=== PATIENT | female | born 1985 | race African-American/Black ===

== ENCOUNTER 2020-08-18 13:34 | Emergency (ER) | payer MEDICAID, SELFPAY ==
[2020-08-18 13:37] VITALS: BP 143/106; PULSE 80; RESP 16; TEMP 36.7; O2SAT 98; BMI 32.8
[2020-08-18] MEDS: Ketorolac 30 MG/ML Syringe IM (14:06)
--- NOTE | 2020-08-18 14:20 | RAD_ITS ---
STUDY: X-RAY - LUMBAR SPINE REASON FOR EXAM: Female, 35 years old. Blunt injury TECHNIQUE: 3 view(s) of the lumbar spine were obtained. COMPARISON: None FINDINGS: Normal lumbar lordosis. Mild levoscoliosis of the lumbar spine. There is a normal alignment of the vertebrae. Normal vertebral bodies and endplates. Normal disc space heights. The soft tissue structures are unremarkable. RAD/Lumbar Spine 2 or 3 Views IMPRESSION: Normal x-ray examination of the lumbar spine. Electronically Signed: Maverick Giles MD at 14:38 EDT , Service support ,
--- NOTE | 2020-08-18 15:17 | ED.VIS.BACK ---
History of Present Illness Chief Complaint: Back Narrative: Patient presenting secondary to a back injury. Patient reports that she was helping assemble a trampoline, and she was hit in the back by a metal post yesterday. She has lower back pain. There is some radiation down the left leg to around the level of the thigh. No numbness or weakness bowel or bladder incontinence or fevers. Patient took some ibuprofen yesterday felt somewhat better, but was continuing to have pain today so she presented to the emergency department. Patient is not anticoagulated. Pain is moderate worse with palpation and movement. Review of systems otherwise negative. Past Medical History - Allergies and Home Meds Allergies/Adverse Reactions: Allergies amoxicillin Allergy (Verified 08/18/20 13:37) Rash tramadol Allergy (Verified 08/18/20 13:37) Rash Primary Care Physician: Riya Norman [NON-STAFF] - Prior records reviewed: Yes Past Medical History: None Smoking Status: Current every day smoker Alcohol: None Drugs: None Review of Systems All systems negative except as indicated General: Denies: Chills, Fever, Sweats Eyes: Denies: Visual changes - bilaterally, Diplopia ENT: Denies: Rhinorrhea, Sore throat Cardiovascular: Denies: Chest pain, Palpitations Respiratory: Denies: Dyspnea, Cough, Dyspnea on exertion Gastrointestinal: Denies: Abdominal pain, Nausea, Vomiting, Diarrhea, Melena, Hematochezia Genitourinary: Denies: Dysuria, Hematuria, Frequency Musculoskeletal: Reports: Back pain Skin: Denies: Rash, Wounds Neurological: Denies: Headache, Weakness, Numbness Physical Exam Vital Signs/Narrative: Vital Signs Temp Pulse Resp BP Pulse Ox 08/18/20 13:37 98.1 F 80 16 143/106 H 98 Inital Vital Signs reviewed: Yes General: Well nourished, Well developed Head: Normocephalic, Atraumatic Eyes: Perrl, EOMI ENT: Moist mucous membranes, No rhinorrhea Neck: Supple, Nontender Cardiovascular: Regular rate, Regular rhythm, No murmurs Respiratory: No distress, CTA bilaterally, Chest nontender Abdomen: Soft, Nontender, Nondistended, Normal bowel sounds Back: Normal Inspection, Spinal tenderness, Paraspinal Tenderness Extremeties: Nontender, No edema Skin: Normal color, No rash Neuro: Alert, Oriented, Normal Strength, Normal Sensation, Normal DTR, Normal Gait, - - 5 out of 5 strength of the hip knee ankle and foot with normal sensation over all dermatomes normal deep tendon reflexes normal gait. Psychological: Normal affect Diagnostic/Tx/Re-eval X-Ray: LS SPine, Read by ED Physician, Normal - Medical Decision Making Patient presented with a back injury. Radiographs by my personal review as well as radiology found to be negative. Patient's pain was treated in the emergency department with NSAIDs, and a single dose of [place]. She was sent home with a course of Naprosyn. ED Disposition - Plan for ED Patient: Disposition: Home or Assisted Living Diagnosis: Lumbar contusion Instructions: ED Back Contusion Prescriptions: Naproxen [Naprosyn] 500 mg PO BID PRN #20 tablet Prescription Printed Referrals: Riya Norman [NON-STAFF] -
[2020-08-18] MEDS: HYDROcodone Bitartrate/Apap 5/325 Tablet PO (15:21)
== END 2020-08-18 15:26 | disposition home or self-care (01) ==
PROVIDERS: Emergency Provider Emergency Medicine
DX: S30.0XXA Contusion of lower back and pelvis, initial encounter (principal); W22.8XXA Striking against or struck by other objects, initial encounter; Y93.9 Activity, unspecified; Y92.9 Unspecified place or not applicable; Y99.9 Unspecified external cause status; F17.200 Nicotine dependence, unspecified, uncomplicated
CPT/HCPCS: 72100; 96372; 99283

== ENCOUNTER 2020-08-21 17:14 | Emergency (ER) | payer MEDICAID, SELFPAY ==
[2020-08-21 17:16] VITALS: BP 139/98; PULSE 76; RESP 17; TEMP 36.5; O2SAT 93; BMI 32.3
[2020-08-21 17:52] LABS: Red Blood Cells-Urine 0 SEEN /hpf (0-5); White Blood Cells 0 SEEN /hpf (0-5)
[2020-08-21 17:58] LABS: Color, Urine Yellow (Yellow); Glucose, Dipstick Normal (Normal); Ketone-Dipstick 5 mg/dl (Negative); Leukocyte Esterase-Dipstick 25 /ul (Negative); Nitrite-Dipstick Negative (Negative); Occult Blood-Urine Negative /ul (Negative); Protein-Dipstick Negative (Negative); Urine Bilirubin Dipstick Negative (Negative); Urine Clarity Clear (Clear); Urine Urobilinogen Normal (Normal)
[2020-08-21 18:02] LABS: Absolute Lymphocyte Count 2.43 X10^3/uL (0.83-4.51); Absolute Neutrophil Count 2.3 X10^3/uL (2.0-7.7); Basophil# 0.04 X10^3/uL; Basophil% 0.8 % (0-1); Eosinophils% 1.9 % (0-5); Hematocrit 38.7 % (37-47); Hemoglobin 12.6 g/dL (12.0-15.0); Lymphocyte # 2.43 X10^3/ul (4.0); Lymphocyte % 45.7 % (19-41); Mean Corp Hgb Conc 32.6 g/dL (32-36); Mean Corpuscular Hgb 28.8 pg (27.0-32.0); Mean Corpuscular Volume 88.4 fL (81-99); Mean Platelet Vol. 9.2 fl (6.2-12.0); Monocyte# 0.49 X10^3/uL; Monocyte% 9.2 % (0-10); NRBC Flagged by Analyzer 0 % (0-5); Neutrophil # 2.25 X10^3/uL (2.7-7.7); Neutrophil % 42.2 % (47-70); Platelet Count 379 K/mm3 (150-450); RBC Distribution Width CV 13.8 % (11.6-14.6); RBC Distribution Width SD 44.9 fl (35.1-43.9); Red Blood Count 4.38 M/mm3 (4.2-5.4); White Blood Count 5.3 K/mm3 (4.4-11.0)
[2020-08-21 18:15] LABS: Anion Gap 5 (5-15); BUN 10 mg/dL (7-18); BUN/Creat Ratio 10.9 RATIO (10-20); Calcium,Total 9.1 mg/dL (8.5-10.1); Chloride 107 mmol/L (98-107); Creatinine, Serum 0.91 mg/dL (0.55-1.02); EST Glomerular Filtration Rate 74 mL/min (>60); Est Glom Filt Rate - Afr Amer 89 mL/min (>60); Glucose 83 mg/dL (74-106); Potassium 3.7 mmol/L (3.5-5.1); Sodium Level 139 mmol/L (136-145)
[2020-08-21 18:21] LABS: Internal QC Validated? YES +Cl - CLEAR BKGD; Pregnancy, Serum, hCG Quali. NEGATIVE Negative
[2020-08-21 18:29] LABS: Bacteria 1+ /hpf (None Seen); Mucous, Urine 1+ /hpf (<or=2+); Squamous Epithelial Cells - UA 0-5 SEEN /hpf (5-10)
--- NOTE | 2020-08-21 18:30 | CT_ITS ---
STUDY: CT ABDOMEN AND PELVIS WITH CONTRAST REASON FOR EXAM: Female, 35 years old. Abdominal pain RADIATION DOSAGE (If Supplied By Facility): CTDIvol = ( 10.64 ) mGy, DLP = ( 766.64 ) mGycm TECHNIQUE: Transaxial images were obtained from the dome of the diaphragm to the symphysis pubis without oral contrast. IV 100mL Isovue-300 was administered. Sagittal and coronal images were reconstructed. Individualized dose optimization techniques were used for this CT. COMPARISON: None. FINDINGS: The visualized lung bases are unremarkable. The visualized portions of the heart are within normal limits. Normal liver. Normal gallbladder and extrahepatic biliary system. Normal spleen. Normal pancreas. Normal bilateral adrenal glands. Normal right kidney. Normal left kidney. Normal visualized stomach. Normal small intestine. Normal colon. The appendix is visualized and appears normal. Appendix best seen on coronal recon images 49 through 52 Normal abdominal aorta. Normal inferior vena cava. Normal retroperitoneum. Normal urinary bladder. Normal-appearing uterus and physiologic ovarian cysts, there is evidence of previous tubal ligation Normal abdominal wall. Normal osseous structures. CT/Abdomen/Pelvis W IV Cont ONLY IMPRESSION: No suspicious solid organ abnormality No free intraperitoneal fluid, air, or suspicious adenopathy Normal appendix visualized Physiologic ovarian cysts, no demonstrated free fluid Electronically Signed: Alberto Thompson MD at 19:27 EDT , Service support ,
[2020-08-21] MEDS: MethylPREDNISolone 125 MG/2 ML Vial IV (18:45)
[2020-08-21] MEDS: Ondansetron 4 MG/2 ML Vial IV (18:45)
[2020-08-21] MEDS: Morphine 4 MG/ML Syringe IV (18:45)
--- NOTE | 2020-08-21 19:03 | ED.VIS.GEN ---
History of Present Illness Chief Complaint: Abd Pain Informant: Patient Narrative: 35-year-old female with history of Crohn's disease presenting with lower abdominal pain bilaterally. She states that she has nausea and vomiting as well. She is not had a fever. She complains of chronic congestion and a mild cough which is also chronic. She has no new symptoms suggesting viral illness. Patient states he is not on any daily medications for Crohn's disease. Past Medical History - Allergies and Home Meds Allergies/Adverse Reactions: Allergies amoxicillin Allergy (Verified 08/21/20 17:16) Rash tramadol Allergy (Verified 08/21/20 17:16) Rash Primary Care Physician: Jeffy Rivera MD [Primary Care Provider] - Prior records reviewed: Yes Past Medical History: - - Crohn's disease Lives: With Family Smoking Status: Current every day smoker Alcohol: None Drugs: None Review of Systems General: Denies: Chills, Fever, Sweats Eyes: Denies: Visual changes - bilaterally, Diplopia ENT: Denies: Rhinorrhea, Sore throat Cardiovascular: Denies: Chest pain, Palpitations Respiratory: Denies: Dyspnea, Cough, Dyspnea on exertion Gastrointestinal: Reports: Abdominal pain, Nausea, Vomiting, Diarrhea. Denies: Constipation, Melena Genitourinary: Denies: Dysuria, Hematuria Musculoskeletal: Denies: Myalgias, Arthralgias Skin: Denies: Rash, Abscess Neurological: Denies: Headache, Weakness, Parasthesia Psych: Denies: Depression, Anxiety Physical Exam Vital Signs/Narrative: Vital Signs Temp Pulse Resp BP Pulse Ox 08/21/20 17:16 97.7 F L 76 17 139/98 H 93 General: Well nourished, No Acute Distress Head: Normocephalic, Atraumatic Eyes: Perrl, EOMI ENT: Moist mucous membranes, No rhinorrhea Cardiovascular: Regular rate, Regular rhythm Respiratory: No distress, CTA bilaterally Abdomen: Soft, Nondistended, Tender - Is palpation bilateral lower quadrants. Abdomen is nonperitoneal. Rectal: Deferred Extremities: Nontender, No edema Skin: Normal color, No rash. Negative for: Cyanosis, Diaphoresis Neurological: Alert, Oriented x3, Cranial nerves II-XII grossly intact Psychological: Normal affect, Normal Mood Diagnostic/Tx/Re-eval Clinical Impression(s) from Imaging Studies Abdomen/Pelvis CT 08/21/20 18:30 IMPRESSION: No suspicious solid organ abnormality No free intraperitoneal fluid, air, or suspicious adenopathy Normal appendix visualized Physiologic ovarian cysts, no demonstrated free fluid Electronically Signed: Alberto Thompson MD at 19:27 EDT , Service support , Laboratory Data 08/21/20 08/21/20 08/21/20 17:17 17:48 17:48 WBC 5.3 RBC 4.38 Hgb 12.6 Hct 38.7 MCV 88.4 MCH 28.8 MCHC 32.6 RDW Std Deviation 44.9 H RDW Coeff of Kim 13.8 Plt Count 379 MPV 9.2 Immature Gran % (Auto) 0.200 Neut % (Auto) 42.2 L Lymph % (Auto) 45.7 H Sum[place] % (Auto) 9.2 Eos % (Auto) 1.9 Baso % (Auto) 0.8 Absolute Neuts (auto) 2.3 Absolute Lymphs (auto) 2.43 Nucleated RBC % 0 Sodium 139 Potassium 3.7 Chloride 107 Carbon Dioxide 27.0 Anion Gap 5 BUN 10 Creatinine 0.91 Estim Creat Clear Calc 70.70 Est GFR (MDRD) Af Amer 89 Est GFR (MDRD) Non-Af 74 BUN/Creatinine Ratio 10.9 Glucose 83 Calcium 9.1 Serum , Qual Urine Color Yellow Urine Clarity Clear Urine pH 6.0 Ur Specific [place] 1.020 Urine Protein Negative Urine Glucose (UA) Normal Urine Ketones 5 H Urine Occult Blood Negative Urine Nitrite Negative Urine Bilirubin Negative Urine Urobilinogen Normal Ur Leukocyte Esterase 25 H Urine RBC 0 SEEN Urine WBC 0 SEEN Ur Squamous Epith Cells 0-5 SEEN Urine Bacteria 1+ Urine Mucus 1+ 08/21/20 17:48 WBC RBC Hgb Hct MCV MCH MCHC RDW Std Deviation RDW Coeff of Kim Plt Count MPV Immature Gran % (Auto) Neut % (Auto) Lymph % (Auto) Summers % (Auto) Eos % (Auto) Baso % (Auto) Absolute Neuts (auto) Absolute Lymphs (auto) Nucleated RBC % Sodium Potassium Chloride Carbon Dioxide Anion Gap BUN Creatinine Estim Creat Clear Calc Est GFR (MDRD) Af Amer Est GFR (MDRD) Non-Af BUN/Creatinine Ratio Glucose Calcium Serum , Qual NEGATIVE Urine Color Urine Clarity Urine pH Ur Specific [place] Urine Protein Urine Glucose (UA) Urine Ketones Urine Occult Blood Urine Nitrite Urine Bilirubin Urine Urobilinogen Ur Leukocyte Esterase Urine RBC Urine WBC Ur Squamous Epith Cells Urine Bacteria Urine Mucus - Medical Decision Making 35-year-old female presenting with lower abdominal pain bilaterally. Patient states he has a history of Crohn's and is a concern for Crohn's flare. Patient states that she does not have a GI doctor in [place] and just recently moved out here. She does have a physician at the [facility] but does her primary care. Patient is not on any long-term medications for Crohn's disease. Patient was given morphine and Zofran for pain and nausea. Obtained lab work which is unremarkable. CT is negative. CT of the abdomen pelvis shows ovarian cyst but no other acute pathology. Patient offered transvaginal ultrasound but declines. Patient is counseled to use Tylenol and ibuprofen alternating doses at home. She is given return precautions. She states she will follow up with her PCP to get a referral for GI. Impression: 1. Abdominal pain 2. Ovarian cysts ED Disposition - Plan for ED Patient: Disposition: Home or Assisted Living Instructions: ED Ovarian Cyst Prescriptions: Ondansetron [Zofran Odt] 4 mg PO Q8H PRN PRN 14 Days #10 tablet PRN Reason: Nausea Prescription Printed Referrals: Jeffy Rivera MD [Primary Care Provider] -
[2020-08-21 20:10] VITALS: RESP 14
== END 2020-08-21 20:11 | disposition home or self-care (01) ==
PROVIDERS: Emergency Provider Student in an Organized Health Care Education/Training Program; PCP Internal Medicine
DX: R10.9 Unspecified abdominal pain (principal); N83.209 Unspecified ovarian cyst, unspecified side; K50.90 Crohn's disease, unspecified, without complications; R11.0 Nausea; R05 Cough; F17.200 Nicotine dependence, unspecified, uncomplicated
CPT/HCPCS: 74177; 80048; 81001; 84703; 85025; 96374; 96375; 99282; Q9967; A4216; J2405

== ENCOUNTER 2020-10-30 15:33 | Emergency (ER) | payer MEDICAID, SELFPAY ==
[2020-10-30 15:34] VITALS: BP 129/80; PULSE 91; RESP 18; TEMP 36.5; O2SAT 99; BMI 31.3
--- NOTE | 2020-10-30 16:51 | EX.ED.DYSGE1 ---
HPI History of Present Illness Chief Complaint: Nausea/Vomiting Informant: patient Narrative Narrative: Nausea vomiting for the past 2 days too many to count. Generalized abdominal pain. No hematemesis. No diarrhea. No urinary symptoms. Finished her menstrual period today. Occasional alcohol. Denies any recreational drug use including THC. She states diagnosed with Crohn's back in 2007 and followed GI in [place]. Has had endoscopies per patient. She states she moved to the area and is trying to get established with a GI doctor. She states she has been here to the ED for work-ups told she may have ruptured ovarian cyst. She has prescription for Zofran and Bentyl for which she took at 11 PM reporting no relief. History of anxiety depression and bipolar. History of tubal ligation and D&C. Prior similar symptoms: Yes PFSH PFS Medical History (Updated 10/30/20 @ 19:[address] Jared Reynolds DO) Acute Crohn's disease Anxiety Bipolar 1 disorder Depression Home Medications naproxen 500 mg PO BID PRN #20 tablet 08/18/20 [Rx Last Taken Unknown] Allergy/AdvReac Type Severity Reaction Status Date / Time amoxicillin Allergy Rash Verified 10/30/20 15:37 tramadol Allergy Rash Verified 10/30/20 15:37 Surgical History (Updated 10/30/20 @ 17:45 by Concha Saleem) Tubal ligation status Social History Smoking Status: Current every day smoker tobacco type: cigarettes ROS ROS ED Constitutional Constitutional ED: Denies chills, fever(s) or sweats Eyes Eyes: Denies change in vision ENT ENT ED: Denies dysphagia or sore throat Cardiovascular Cardiovascular: Denies chest pain, leg edema, palpitations or racing heartbeat Respiratory/Chest Respiratory/Chest: Denies cough, dyspnea or dyspnea on exertion Gastrointestinal Gastrointestinal: Reports abdominal pain, nausea and vomiting; Denies diarrhea Genitourinary Genitourinary ED: Denies dysuria, hematuria or urinary frequency Musculoskeletal Musculoskeletal: Denies back pain, extremity pain or neck pain Integumentary Denies rash or wounds Neurologic Neurologic: Denies headache(s), paresthesias or weakness EXAM Physical Exam Const Vital Signs: 10/30/20 15:34 10/30/20 17:53 Temperature 97.7 F L Temperature Source Oral Pulse Rate 91 89 Respiratory Rate 18 16 Blood Pressure 129/80 H 130/78 H Blood Pressure Mean 96 95 Pulse Ox 99 99 Oxygen Delivery Method Room Air Room Air Positive well nourished and well developed General Appearance ED: well developed and NAD HEENT Reports other HEENT Narrative: Mild dry mucosal membranes. normocephalic, atraumatic and other Eyes PERRL, EOMs intact bilaterally and conjunctivae normal General Eye ED: Yes normal appearance of both eyes Neck no lymphadenopathy and supple General: Negative for tenderness Chest Wall Chest: Negative for tenderness Resp normal respiratory effort and normal air movement Effort and Inspection: symmetric chest movement; Negative for respiratory distress Cardio regular rate, regular rhythm and no murmurs Peripheral Pulses: pulses 2+ throughout GI normal to inspection, nondistended, normoactive bowel sounds and non-tender GI Narrative: Negative Smalls's or McBurney's tenderness. Palpation: Negative for guarding or rebound tenderness present Back/Spine no CVA tenderness and no thoracic nor lumbar tenderness Extremity normal to inspection General Extremety ED: Negative for edema or tenderness General Extremity: Negative for edema Neuro oriented x3 and no sensory deficits noted Sensorium / Orientation: awake and alert Skin no rashes or lesions noted and no wounds MDM MDM MDM Narrative Medical decision making narrative: Patient with nonsurgical abdomen. Mild dry mucosal membranes. There is no active vomiting in the ED. Reglan Benadryl was given along with IV fluids. Abdominal labs were normal. Tox screen did note cannabis and cocaine. She has no chest pains. She admits to using marijuana occasionally. She is never been told she had cannabis hyperemesis syndrome in the past. I discussed concerns with the patient and cessation of THC. She has Zofran at home. There is been no emesis in the ED. She will follow-up as an outpatient. All questions were answered. Lab Data Attestation: I reviewed the patient's lab results. Labs: Laboratory Results - last 24 hr 10/30/20 10/30/20 10/30/20 17:38 17:38 18:08 WBC 4.4 RBC 4.23 Hgb 12.8 Hct 38.4 MCV 90.8 MCH 30.3 MCHC 33.3 RDW Std Deviation 42.2 RDW Coeff of Kim 12.7 Plt Count 408 MPV 9.2 Immature Gran % (Auto) 0.200 Neut % (Auto) 44.0 L Lymph % (Auto) 44.6 H [place] % (Auto) 9.3 Eos % (Auto) 1.4 Baso % (Auto) 0.5 Absolute Neuts (auto) 2.0 Absolute Lymphs (auto) 1.97 Nucleated RBC % 0 Sodium 139 Potassium 3.7 Chloride 106 Carbon Dioxide 27.0 Anion Gap 6 BUN 11 Creatinine 0.90 Estim Creat Clear Calc 71.48 Est GFR (MDRD) Af Amer 91 Est GFR (MDRD) Non-Af 75 BUN/Creatinine Ratio 12.2 Glucose 88 Calcium 8.8 Total Bilirubin 0.20 AST 11 L ALT 22 Alkaline Phosphatase 76 Total Protein 7.3 Albumin 3.7 Globulin 3.6 Albumin/Globulin Ratio 1.0 Lipase 43 L Urine Color Yellow Urine Clarity Sl Cldy Urine pH 7.0 Ur Specific [place] 1.015 Urine Protein 15 H Urine Glucose (UA) Normal Urine Ketones 5 H Urine Occult Blood 25 H Urine Nitrite Negative Urine Bilirubin Negative Urine Urobilinogen 1 H Ur Leukocyte Esterase 25 H Urine RBC 0-5 SEEN Urine WBC 0-5 SEEN Ur Squamous Epith Cells 0-5 SEEN Urine Bacteria 0 SEEN Urine Mucus 0 SEEN Urine Test Negative Urine Opiates Screen Urine Methadone Screen Ur Barbiturates Screen Ur Phencyclidine Scrn Ur Amphetamines Screen U Methamphetamin-MDMA U Benzodiazepines Scrn Urine Cocaine Screen U Cannabinoids Screen Ur Drug Screen Comment 10/30/20 18:08 WBC RBC Hgb Hct MCV MCH MCHC RDW Std Deviation RDW Coeff of Kim Plt Count MPV Immature Gran % (Auto) Neut % (Auto) Lymph % (Auto) [place] % (Auto) Eos % (Auto) Baso % (Auto) Absolute Neuts (auto) Absolute Lymphs (auto) Nucleated RBC % Sodium Potassium Chloride Carbon Dioxide Anion Gap BUN Creatinine Estim Creat Clear Calc Est GFR (MDRD) Af Amer Est GFR (MDRD) Non-Af BUN/Creatinine Ratio Glucose Calcium Total Bilirubin AST ALT Alkaline Phosphatase Total Protein Albumin Globulin Albumin/Globulin Ratio Lipase Urine Color Urine Clarity Urine pH Ur Specific [place] Urine Protein Urine Glucose (UA) Urine Ketones Urine Occult Blood Urine Nitrite Urine Bilirubin Urine Urobilinogen Ur Leukocyte Esterase Urine RBC Urine WBC Ur Squamous Epith Cells Urine Bacteria Urine Mucus Urine Test Urine Opiates Screen NEGATIVE Urine Methadone Screen NEGATIVE Ur Barbiturates Screen NEGATIVE Ur Phencyclidine Scrn NEGATIVE Ur Amphetamines Screen NEGATIVE U Methamphetamin-MDMA NEGATIVE U Benzodiazepines Scrn NEGATIVE Urine Cocaine Screen POSITIVE H U Cannabinoids Screen POSITIVE H Ur Drug Screen Comment Discharge Plan Triage Chief Complaint: Nausea/Vomiting ED Provider: Jared Reynolds Dx/Rx/DC Orders Clinical Impression: Cannabis hyperemesis syndrome concurrent with and due to cannabis abuse Instructions: Understanding Marijuana Abuse, ED Marijuana Abuse Prescriptions: No Action naproxen 500 MG tablet 500 mg PO BID PRN Qty: 20 RF: 0 Primary Care Provider: Michelle Grimm NP Referrals: Michelle Grimm NP, CUSTOMER SERVICE REPRESENTATIVE TEACHER-C [Primary Care Provider] - 3-5 Days Disposition Disposition: Home, self care
[2020-10-30] MEDS: 0.9% Normal Saline 1,000 ML 1000 ML IV (17:42)
[2020-10-30] MEDS: Metoclopramide 10 MG/2 ML Vial IV (17:42)
[2020-10-30] MEDS: DiphenhydrAMINE 50 MG/ML Syringe 25 MG IV (17:42)
[2020-10-30 17:53] VITALS: BP 130/78; PULSE 89; RESP 16; O2SAT 99
[2020-10-30 18:01] LABS: Absolute Lymphocyte Count 1.97 X10^3/uL (0.83-4.51); Basophil# 0.02 X10^3/uL; Basophil% 0.5 % (0-1); Eosinophil# 0.06 X10^3/uL; Eosinophils% 1.4 % (0-5); Hematocrit 38.4 % (37-47); Hemoglobin 12.8 g/dL (12.0-15.0); Lymphocyte # 1.97 X10^3/ul (0.83-4.51); Lymphocyte % 44.6 % (19-41); Mean Corp Hgb Conc 33.3 g/dL (32-36); Mean Corpuscular Hgb 30.3 pg (27.0-32.0); Mean Corpuscular Volume 90.8 fL (81-99); Mean Platelet Vol. 9.2 fl (6.2-12.0); Monocyte# 0.41 X10^3/uL; Monocyte% 9.3 % (0-10); NRBC Flagged by Analyzer 0 % (0-5); Neutrophil # 1.95 X10^3/uL (2.7-7.7); Platelet Count 408 K/mm3 (150-450); RBC Distribution Width CV 12.7 % (11.6-14.6); RBC Distribution Width SD 42.2 fl (35.1-43.9); Red Blood Count 4.23 M/mm3 (4.2-5.4); White Blood Count 4.4 K/mm3 (4.4-11.0)
[2020-10-30 18:16] LABS: Bacteria 0 SEEN /hpf (None Seen); Mucous, Urine 0 SEEN /hpf (<or=2+)
[2020-10-30 18:20] LABS: AST(SGOT) 11 U/L (15-37); Alanine Aminotransfer ALT/SGPT 22 U/L (13-56); Albumin, Serum 3.7 g/dL (3.2-5.0); Alkaline Phosphatase 76 U/L (45-117); Anion Gap 6 (5-15); BUN 11 mg/dL (7-18); BUN/Creat Ratio 12.2 RATIO (10-20); Calcium,Total 8.8 mg/dL (8.5-10.1); Chloride 106 mmol/L (98-107); EST Glomerular Filtration Rate 75 mL/min (>60); Est Glom Filt Rate - Afr Amer 91 mL/min (>60); Estimated Creatinine Clearance 71.48 ml/min; Globulin 3.6 g/dL (2.2-4.2); Glucose 88 mg/dL (74-106); Lipase 43 U/L (73-393); Potassium 3.7 mmol/L (3.5-5.1); Protein, Total 7.3 g/dL (6.4-8.2); Sodium Level 139 mmol/L (136-145)
[2020-10-30 18:23] LABS: Glucose, Dipstick Normal (Normal); Ketone-Dipstick 5 mg/dl (Negative); Leukocyte Esterase-Dipstick 25 /ul (Negative); Nitrite-Dipstick Negative (Negative); Occult Blood-Urine 25 /ul (Negative); Protein-Dipstick 15 mg/dl (Negative); Specific Gravity, Urine 1.015 (1.002-1.030); Urine Bilirubin Dipstick Negative (Negative); Urine Urobilinogen 1 mg/dl (Normal)
[2020-10-30 18:34] LABS: Amphetamine Urine VISTA NEGATIVE (<1000 ng/mL); Barbiturate Urine VISTA NEGATIVE (< 200 ng/mL); Benzodiazepine Urine VISTA NEGATIVE (< 200 ng/mL); Cocaine Urine VISTA POSITIVE (< 300 ng/mL); Color, Urine Yellow (Yellow); Ecstacy Urine VISTA NEGATIVE (< 500 ng/mL); Methadone Urine VISTA NEGATIVE (< 300 ng/mL); PCP Urine VISTA NEGATIVE (< 25 ng/mL); THC Urine VISTA POSITIVE (< 50 ng/mL); Urine Clarity Sl Cldy (Clear); Vista UDS pH Range 6
[2020-10-30 18:35] LABS: Internal QC Validated? YES +Cl - CLEAR BKGD; Pregnancy, Urine Negative Negative; Red Blood Cells-Urine 0-5 SEEN /hpf (0-5); Squamous Epithelial Cells - UA 0-5 SEEN /hpf (5-10); White Blood Cells 0-5 SEEN /hpf (0-5)
[2020-10-30 19:14] VITALS: BP 110/67; PULSE 71; RESP 16; O2SAT 100
== END 2020-10-30 19:17 | disposition home or self-care (01) ==
PROVIDERS: Emergency Provider Emergency Medicine; PCP Nurse Practitioner Primary Care
DX: R11.2 Nausea with vomiting, unspecified (principal); F12.10 Cannabis abuse, uncomplicated; R10.84 Generalized abdominal pain; K50.90 Crohn's disease, unspecified, without complications; F17.210 Nicotine dependence, cigarettes, uncomplicated; Z98.51 Tubal ligation status
CPT/HCPCS: 80053; 80307; 81001; 81025; 83690; 85025; 96361; 96374; 96375; 99283; A4216

== ENCOUNTER 2021-02-24 19:26 | Emergency (ER) | payer MEDICAID, SELFPAY ==
[2021-02-24 19:26] VITALS: BP 133/101; PULSE 88; RESP 18; TEMP 36.4; O2SAT 100; BMI 31.8
[2021-02-24] MEDS: HYDROcodone Bitartrate/Apap 5/325 Tablet PO (21:07)
[2021-02-24 21:47] VITALS: RESP 16
[2021-02-24] MEDS: Tetracaine 0.5% Ophthalmic Bottle 1 DRP RIGHT EYE (22:07)
--- NOTE | 2021-02-24 22:25 | EDS_ITS ---
HPI History of Present Illness Chief Complaint: Headache Informant: patient Narrative Narrative: 36-year-old female presenting with right eye pain and blurry vision. Patient states this started on Friday. She was seen at urgent care. States it all started when she got a hair in her eye and was rubbing her eye. she states she was told at urgent care that she had a retinal detachment and she should follow-up with ophthalmology on Friday. She was given erythromycin ointment. She presents today due to persistent pain. Denies trauma. Denies visual field cut. Denies double vision. Prior similar symptoms: No Recent Illness/Hospitalization: No [facility] Medical History (Updated 02/24/21 @ 22:[address] Kami Peck MD) Acute Crohn's disease Anxiety Bipolar 1 disorder Depression Home Medications escitalopram oxalate [Lexapro] 40 mg PO DAILY 02/24/21 [History Last Taken Unknown] hydroxyzine pamoate [Vistaril] 50 mg PO 4X/DAY PRN PRN 02/24/21 [History Last Taken Unknown] lamotrigine [Lamictal] 100 mg PO DAILY 02/24/21 [History Last Taken Unknown] Allergy/AdvReac Type Severity Reaction Status Date / Time amoxicillin Allergy Rash Verified 02/24/21 19:36 tramadol Allergy Rash Verified 02/24/21 19:36 Surgical History Tubal ligation status Social History Smoking Status: Current every day smoker tobacco type: cigarettes ROS ROS ED Constitutional Constitutional ED: Denies fever(s) Eyes Eyes: Reports blurry vision; Denies diplopia ENT ENT ED: Denies rhinorrhea or sore throat Cardiovascular Cardiovascular: Denies chest pain Respiratory/Chest Respiratory/Chest: Denies dyspnea Neurologic Neurologic: Reports headache(s) EXAM Physical Exam Const Vital Signs: 02/24/21 19:26 02/24/21 21:47 Temperature 97.6 F L Temperature Source Temporal Pulse Rate 88 Respiratory Rate 18 16 Blood Pressure 133/101 H Blood Pressure Mean 111 Pulse Ox 100 Oxygen Delivery Method Room Air Positive well nourished and well developed General Appearance ED: well developed HEENT Reports normocephalic and head/scalp atraumatic Eyes PERRL and EOMs intact bilaterally Neck supple General: Negative for tenderness Chest Wall inspection of chest normal Resp normal respiratory effort and clear to auscultation bilaterally Cardio regular rate and regular rhythm no CVA tenderness Extremity normal to inspection Neuro oriented x3 Sensorium / Orientation: alert Psych mental status grossly normal Skin no rashes or lesions noted MDM MDM MDM Narrative Medical decision making narrative: Visual acuity 20/50 OS, 20/25 OD. Bedside ultrasound was performed and patient has no evidence of retinal detachment. Tetracaine was instilled into the right eye with resolution of her pain. She has fluorescein dye uptake at 6:00. No sign of corneal ulceration. She does not wear contacts. She is given erythromycin ointment. Discussed with Dr. Young and patient will be seen for close outpatient follow-up. Outside facility records were reviewed and she was diagnosed with corneal abrasion, not retinal detachment. Discharge Plan Triage Chief Complaint: Headache ED Provider: Kami Peck Dx/Rx/DC Orders Clinical Impression: Corneal abrasion Instructions: ED Corneal Abrasion Prescriptions: No Action hydroxyzine pamoate [Vistaril] 50 mg Capsule 50 mg PO 4X/DAY PRN PRN (Reason: Anxiety) RF: 0 lamotrigine [Lamictal] 100 mg Tablet 100 mg PO DAILY RF: 0 escitalopram oxalate [Lexapro] 20 mg Tablet 40 mg PO DAILY RF: 0 Primary Care Provider: Michelle Grimm NP Referrals: Ned Young MD [STAFF PHYSICIAN] - PodlogarMichelle NP, JEWEL DIAMETER GAUGER-C [Primary Care Provider] - Disposition Disposition: Home, Self Care
[2021-02-24] MEDS: Erythromycin Base 1 OPTH.TUBE 1 APPLIC RIGHT EYE (22:42)
== END 2021-02-24 22:42 | disposition home or self-care (01) ==
PROVIDERS: Emergency Provider Emergency Medicine; PCP Nurse Practitioner Primary Care
DX: S05.01XA Injury of conjunctiva and corneal abrasion without foreign body, right eye, initial encounter (principal); X58.XXXA Exposure to other specified factors, initial encounter; Y93.9 Activity, unspecified; Y92.9 Unspecified place or not applicable; Y99.9 Unspecified external cause status; K50.90 Crohn's disease, unspecified, without complications; F31.9 Bipolar disorder, unspecified; F41.9 Anxiety disorder, unspecified; Z79.899 Other long term (current) drug therapy; F17.210 Nicotine dependence, cigarettes, uncomplicated
CPT/HCPCS: 99283; A4216

== ENCOUNTER 2021-05-07 10:34 | Emergency (ER) | payer MEDICAID, SELFPAY ==
[2021-05-07 10:35] VITALS: BP 149/109; PULSE 102; RESP 18; TEMP 35.9; O2SAT 100; BMI 32.2
--- NOTE | 2021-05-07 10:57 | CT_ITS ---
STUDY: CT ABDOMEN AND PELVIS WITH CONTRAST REASON FOR EXAM: Female, 36 years old. abd pain, crohns RADIATION DOSAGE (If Supplied By Facility): CTDIvol = ( 13.32 ) mGy, DLP = ( 827.73 ) mGycm TECHNIQUE: Transaxial images were obtained from the dome of the diaphragm to the symphysis pubis without oral contrast. IV 100mL Isovue-370 was administered. Sagittal and coronal images were reconstructed. Individualized dose optimization techniques were used for this CT. COMPARISON: 08/21/2020 FINDINGS: The visualized lung bases are unremarkable. The visualized portions of the heart are within normal limits. Normal liver. Normal gallbladder and extrahepatic biliary system. Normal spleen. Normal pancreas. Normal bilateral adrenal glands. Normal right kidney. Normal left kidney. Normal visualized stomach. Normal small intestine. Normal colon. The appendix is visualized and appears normal. Normal abdominal aorta. Normal inferior vena cava. Normal retroperitoneum. Normal urinary bladder. Status post bilateral tubal ligation. Normal abdominal wall. Mild levoscoliosis of lumbar spine. CT/Abdomen/Pelvis W IV Cont ONLY IMPRESSION: Normal enhanced CT of the abdomen and pelvis. Electronically Signed: Hima Rust MD at 12:10 EST Tel , Service support ,
[2021-05-07] MEDS: Morphine 4 MG/ML Syringe IV ×2 (11:06→13:37)
[2021-05-07] MEDS: Ondansetron 4 MG/2 ML Vial IV (11:06)
[2021-05-07] MEDS: 0.9% Normal Saline 1,000 ML 1000 ML IV (11:07)
--- NOTE | 2021-05-07 11:14 | ED.VIS.GI ---
HPI HPI - GI History of Present Illness Chief Complaint: Abd Pain Informant: patient Narrative Narrative: Patient presents with nausea vomiting and diarrhea along with lower abdominal cramping. She has had this for about 2 or so days. She states this feels like her Crohn's and does not feel like a viral type illness. It started with diarrhea and then progressed. No blood has been seen in vomitus or stool. No fevers or chills. Nothing makes it better. Trying to eat or drink does worsen it. Patient used to be on all kinds of medicine for Crohn's. She cannot name them. It has been 3 years since she has been on medicines. She is newer to this area and her physician used to be in [place]. She does not have a physician established in this area. She does smoke marijuana but states is just occasionally now. She had prior history of cannabis hyperemesis syndrome. She denied any abdominal surgery to me. [facility] Medical History Acute Crohn's disease Anxiety Bipolar 1 disorder Depression Home Medications escitalopram oxalate [Lexapro] 40 mg PO DAILY 02/24/21 [History Last Taken Unknown] hydroxyzine pamoate [Vistaril] 50 mg PO 4X/DAY PRN PRN 02/24/21 [History Last Taken Unknown] lamotrigine [Lamictal] 100 mg PO DAILY 02/24/21 [History Last Taken Unknown] dicyclomine 20 mg PO TID PRN #14 tab 05/07/21 [Rx Last Taken Unknown] ondansetron 4 mg PO Q8H PRN #10 tab 05/07/21 [Rx Last Taken Unknown] oxycodone-acetaminophen [Percocet] 1 tab PO Q8H PRN 2 Days #6 tab 05/07/21 [Rx Last Taken Unknown] Allergy/AdvReac Type Severity Reaction Status Date / Time amoxicillin Allergy Rash Verified 05/07/21 10:36 tramadol Allergy Rash Verified 05/07/21 10:36 Surgical History Tubal ligation status Social History Smoking Status: Current every day smoker tobacco type: cigarettes ROS ROS ED Constitutional Constitutional ED: Denies chills or fever(s) ENT ENT ED: Denies rhinorrhea or sore throat Cardiovascular Cardiovascular: Denies chest pain or palpitations Respiratory/Chest Respiratory/Chest: Denies cough or dyspnea Gastrointestinal Gastrointestinal: Reports abdominal pain, diarrhea, nausea and vomiting; Denies constipation or melena Genitourinary Genitourinary ED: Reports other Details: Last menstrual period was about 5 weeks ago. She states she does have irregular menstrual cycles though. ; Denies dysuria or hematuria Musculoskeletal Musculoskeletal: Denies arthralgias or myalgias Integumentary Denies rash Neurologic Neurologic: Denies headache(s) or weakness Psychiatric Psychiatric: Reports anxiety and depression Endocrine Endocrinology: Denies polydipsia or polyuria Hematologic/Lymphatic Hematologic/Lymphatic: Denies easy bleeding or easy bruising Allergic/Immunologic Allergic/Immunologic ED: Denies mouth swelling or urticaria EXAM Physical Exam Const Vital Signs: 05/07/21 10:35 Temperature 96.7 F L Temperature Source Temporal Pulse Rate 102 H Respiratory Rate 18 Blood Pressure 149/109 H Blood Pressure Mean 122 Pulse Ox 100 Oxygen Delivery Method Room Air Positive well nourished and well developed General Appearance ED: well developed and NAD HEENT Reports dry mucous membranes HEENT Narrative: Mildly dry mucous membranes. Mouth ED: Yes dry mucous membranes Mouth: dry mucous membranes Eyes General Eye ED: Negative for pale conjunctiva or scleral icterus Neck no JVD Resp normal respiratory effort and clear to auscultation bilaterally Cardio regular rate GI no masses GI Narrative: Mild lower abdominal tenderness that is not located in one area. No rebound or guarding at all. Palpation: soft and tender Back/Spine no CVA tenderness Extremity full ROM Neuro Sensorium / Orientation: alert and oriented to person Psych mental status grossly normal Skin Lesions: no lesions Rashes: no rashes MDM MDM MDM Narrative Medical decision making narrative: Blood work shows normal CBC. Electrolytes are overall unremarkable. Minimal elevation of chloride and glucose. Liver function test are negative. is negative. Urinalysis shows no acute process. CT scan shows no acute process. Patient still has some discomfort. This may be viral but this could be early exacerbation of her Crohn's. We will get her home on Zofran, Bentyl. I will give her a few tablets of medicine for pain. I did do an online prescribing report. She has a total of 2 prescriptions for small number of controlled substances and the most recent was over a year ago. We discussed reasons to return that would include recurrent vomiting, fevers, worsening pain or any other concerns. Lab Data Attestation: I reviewed the patient's lab results. Labs: Laboratory Results - last 24 hr 05/07/21 05/07/21 05/07/21 11:00 11:00 11:00 WBC 4.8 RBC 4.13 L Hgb 12.5 Hct 36.5 L MCV 88.4 MCH 30.3 MCHC 34.2 RDW Std Deviation 40.4 RDW Coeff of Kim 12.3 Plt Count 382 MPV 9.5 Immature Gran % (Auto) 0.200 Neut % (Auto) 45.9 L Lymph % (Auto) 44.4 H [place] % (Auto) 7.9 Eos % (Auto) 1.0 Baso % (Auto) 0.6 Absolute Neuts (auto) 2.2 Absolute Lymphs (auto) 2.14 Nucleated RBC % 0 Sodium 139 Potassium 3.5 Chloride 108 H Carbon Dioxide 24.0 Anion Gap 7 BUN 12 Creatinine 0.96 Estim Creat Clear Calc 66.37 Est GFR (MDRD) Af Amer 84 Est GFR (MDRD) Non-Af 70 BUN/Creatinine Ratio 12.5 Glucose 114 H Calcium 8.8 Total Bilirubin 0.20 AST 20 ALT 33 Alkaline Phosphatase 68 Total Protein 7.3 Albumin 3.7 Globulin 3.6 Albumin/Globulin Ratio 1.0 Serum , Qual NEGATIVE Urine Color Urine Clarity Urine pH Ur Specific [place] Urine Protein Urine Glucose (UA) Urine Ketones Urine Occult Blood Urine Nitrite Urine Bilirubin Urine Urobilinogen Ur Leukocyte Esterase Urine RBC Urine WBC Ur Squamous Epith Cells Urine Bacteria Urine Mucus 05/07/21 11:45 WBC RBC Hgb Hct MCV MCH MCHC RDW Std Deviation RDW Coeff of Kim Plt Count MPV Immature Gran % (Auto) Neut % (Auto) Lymph % (Auto) [place] % (Auto) Eos % (Auto) Baso % (Auto) Absolute Neuts (auto) Absolute Lymphs (auto) Nucleated RBC % Sodium Potassium Chloride Carbon Dioxide Anion Gap BUN Creatinine Estim Creat Clear Calc Est GFR (MDRD) Af Amer Est GFR (MDRD) Non-Af BUN/Creatinine Ratio Glucose Calcium Total Bilirubin AST ALT Alkaline Phosphatase Total Protein Albumin Globulin Albumin/Globulin Ratio Serum , Qual Urine Color Yellow Urine Clarity Sl. Cloudy Urine pH 6.0 Ur Specific [place] 1.010 Urine Protein Negative Urine Glucose (UA) Normal Urine Ketones Negative Urine Occult Blood Negative Urine Nitrite Negative Urine Bilirubin Negative Urine Urobilinogen Normal Ur Leukocyte Esterase Negative Urine RBC 0 SEEN Urine WBC 0 SEEN Ur Squamous Epith Cells 0-5 SEEN Urine Bacteria 0 SEEN Urine Mucus 0 SEEN Radiography Diagnostic Testing: Clinical Impression(s) from Imaging Studies Abdomen/Pelvis CT 05/07/21 10:57 IMPRESSION: Normal enhanced CT of the abdomen and pelvis. Electronically Signed: Hima Rust MD at 12:10 EST Tel , Service support , Discharge Plan Triage Chief Complaint: Abd Pain ED Provider: Prince Iraheta Dx/Rx/DC Orders Clinical Impression: Abdominal pain, Nausea vomiting and diarrhea Instructions: ED Abdominal Pain Unkn Cause Fem, ED Vomiting and Diarrhea ... Prescriptions: New oxycodone-acetaminophen [Percocet] 5-325 mg tablet 1 tab PO Q8H PRN (Reason: pain) 2 Days Qty: 6 RF: 0 ondansetron 4 mg tablet,disintegrating 4 mg PO Q8H PRN (Reason: nausea and vomiting) Qty: 10 RF: 0 dicyclomine 20 mg tablet 20 mg PO TID PRN (Reason: cramps) Qty: 14 RF: 0 No Action hydroxyzine pamoate [Vistaril] 50 mg Capsule 50 mg PO 4X/DAY PRN PRN (Reason: Anxiety) RF: 0 lamotrigine [Lamictal] 100 mg Tablet 100 mg PO DAILY RF: 0 escitalopram oxalate [Lexapro] 20 mg Tablet 40 mg PO DAILY RF: 0 Primary Care Provider: Michelle Grimm NP Referrals: Michelle Grimm NP, IN[facility]IC[facility] SPECIALIST-C [Primary Care Provider] - 3-5 Days if not improving Disposition Disposition: Home, Self Care
[2021-05-07 11:24] LABS: Absolute Lymphocyte Count 2.14 X10^3/uL (0.83-4.51); Absolute Neutrophil Count 2.2 X10^3/uL (2.0-7.7); Basophil# 0.03 X10^3/uL; Basophil% 0.6 % (0-1); Eosinophil# 0.05 X10^3/uL; Hematocrit 36.5 % (37-47); Hemoglobin 12.5 g/dL (12.0-15.0); Lymphocyte # 2.14 X10^3/ul (0.83-4.51); Lymphocyte % 44.4 % (19-41); Mean Corp Hgb Conc 34.2 g/dL (32-36); Mean Corpuscular Hgb 30.3 pg (27.0-32.0); Mean Corpuscular Volume 88.4 fL (81-99); Mean Platelet Vol. 9.5 fl (6.2-12.0); Monocyte# 0.38 X10^3/uL; Monocyte% 7.9 % (0-10); NRBC Flagged by Analyzer 0 % (0-5); Neutrophil # 2.21 X10^3/uL (2.7-7.7); Neutrophil % 45.9 % (47-70); Platelet Count 382 K/mm3 (150-450); RBC Distribution Width CV 12.3 % (11.6-14.6); RBC Distribution Width SD 40.4 fl (35.1-43.9); Red Blood Count 4.13 M/mm3 (4.2-5.4); White Blood Count 4.8 K/mm3 (4.4-11.0)
[2021-05-07 11:25] LABS: Internal QC Validated? YES +Cl - CLEAR BKGD; Pregnancy, Serum, hCG Quali. NEGATIVE Negative
[2021-05-07 11:30] LABS: AST(SGOT) 20 U/L (15-37); Alanine Aminotransfer ALT/SGPT 33 U/L (13-56); Albumin, Serum 3.7 g/dL (3.2-5.0); Alkaline Phosphatase 68 U/L (45-117); Anion Gap 7 (5-15); BUN 12 mg/dL (7-18); BUN/Creat Ratio 12.5 RATIO (10-20); Calcium,Total 8.8 mg/dL (8.5-10.1); Chloride 108 mmol/L (98-107); Creatinine, Serum 0.96 mg/dL (0.55-1.02); EST Glomerular Filtration Rate 70 mL/min (>60); Est Glom Filt Rate - Afr Amer 84 mL/min (>60); Estimated Creatinine Clearance 66.37 ml/min; Globulin 3.6 g/dL (2.2-4.2); Glucose 114 mg/dL (74-106); Potassium 3.5 mmol/L (3.5-5.1); Protein, Total 7.3 g/dL (6.4-8.2); Sodium Level 139 mmol/L (136-145)
[2021-05-07 11:51] LABS: Bacteria 0 SEEN /hpf (None Seen); Mucous, Urine 0 SEEN /hpf (<or=2+); Red Blood Cells-Urine 0 SEEN /hpf (0-5); White Blood Cells 0 SEEN /hpf (0-5)
[2021-05-07 11:52] LABS: Color, Urine Yellow (Yellow); Glucose, Dipstick Normal (Normal); Ketone-Dipstick Negative (Negative); Leukocyte Esterase-Dipstick Negative /ul (Negative); Nitrite-Dipstick Negative (Negative); Occult Blood-Urine Negative /ul (Negative); Protein-Dipstick Negative (Negative); Urine Bilirubin Dipstick Negative (Negative); Urine Clarity Sl. Cloudy (Clear); Urine Urobilinogen Normal (Normal)
--- NOTE | 2021-05-07 11:55 | ED.RN ---
pt report still in a lot of pain. dr fuller aware
[2021-05-07 11:58] LABS: Squamous Epithelial Cells - UA 0-5 SEEN /hpf (5-10)
[2021-05-07 13:42] VITALS: BP 132/89; PULSE 88; RESP 16; O2SAT 99
== END 2021-05-07 13:43 | disposition home or self-care (01) ==
PROVIDERS: Emergency Provider Emergency Medicine; PCP Nurse Practitioner Primary Care
DX: R10.9 Unspecified abdominal pain (principal); R11.2 Nausea with vomiting, unspecified; R19.7 Diarrhea, unspecified; K50.90 Crohn's disease, unspecified, without complications; F31.9 Bipolar disorder, unspecified; F41.9 Anxiety disorder, unspecified; F17.210 Nicotine dependence, cigarettes, uncomplicated; Z79.899 Other long term (current) drug therapy
CPT/HCPCS: 74177; 80053; 81001; 84703; 85025; 96361; 96374; 96375; 96376; 99283; J7030; Q9967; A4216; J2405

== ENCOUNTER 2021-05-13 08:37 | Emergency (ER) | payer MEDICAID, SELFPAY ==
[2021-05-13 08:37] VITALS: BP 140/119; PULSE 90; RESP 20; TEMP 36.6; O2SAT 100; BMI 33.6
--- NOTE | 2021-05-13 09:10 | RAD_ITS ---
STUDY: X-RAY - ACUTE ABDOMINAL SERIES REASON FOR EXAM: Female, 36 years old. Pain TECHNIQUE: Single view of the chest. Supine, 3 view(s) of the abdomen were obtained. COMPARISON: None. FINDINGS: Mild right basilar interstitial prominence. Normal size heart. Normal mediastinum and jillian. Normal visualized pulmonary arteries. Normal visualized aortic arch and descending thoracic aorta. There is a non-specific bowel gas pattern. The soft tissue structures of the abdomen and pelvis are unremarkable. Normal visualized osseous structures. RAD/Acute Abdomen Inc Chest IMPRESSION: Mild right basilar interstitial prominence. No acute abdominal pathology. Electronically Signed: El Cooper DO at 10:20 EST Tel [phone], Service support ,
--- NOTE | 2021-05-13 09:11 | EDS_ITS ---
HPI HPI - GI History of Present Illness Chief Complaint: Nausea/Vomiting/Diarrhea Informant: patient Abdominal Pain/Flank Pain Onset: Weeks (1) Context: Gradual Onset Timing: Waxes and wanes Quality: Sharp Location: Diffuse Worsened by: - (Laying down) Relieved by: Nothing Nausea/Vomiting/Emesis GI Symptom: Positive for Nausea and Vomiting Quality: Negative for Coffee ground and Hematemesis Diarrhea/Melena/Hematochezia GI Symptom: Positive for Diarrhea; Negative for Melena and Hematochezia Associated Symptoms Associated Symptoms: Negative for Dysuria, Frequency and Hematuria Narrative Narrative: Patient presents with abdominal pain, nausea, vomiting, and diarrhea that has been constant for the past week. Patient states it has been waxing and waning. Patient states her pain is diffuse across her entire abdomen. Patient describes it as sharp. Patient states it is worse whenever she lays down. Patient states nothing makes it better. Patient admits to some mild shortness of breath. Patient denies any chest pain. Patient denies any fevers or chills. Patient denies any hematemesis or coffee-ground emesis. Patient denies any melena or hematochezia. Patient denies any urinary complaints. [facility] Medical History Acute Crohn's disease Anxiety Bipolar 1 disorder Depression Home Medications escitalopram oxalate [Lexapro] 40 mg PO DAILY 02/24/21 [History Last Taken Unknown] hydroxyzine pamoate [Vistaril] 50 mg PO 4X/DAY PRN PRN 02/24/21 [History Last Taken Unknown] lamotrigine [Lamictal] 100 mg PO DAILY 02/24/21 [History Last Taken Unknown] dicyclomine 20 mg PO TID PRN #14 tab 05/07/21 [Rx Last Taken Unknown] oxycodone-acetaminophen [Percocet] 1 tab PO Q8H PRN 2 Days #6 tab 05/07/21 [Rx Last Taken Unknown] ondansetron 4 mg PO Q8H PRN #10 tab 05/13/21 [Rx Last Taken Unknown] Allergy/AdvReac Type Severity Reaction Status Date / Time amoxicillin Allergy Rash Verified 05/13/21 08:39 tramadol Allergy Rash Verified 05/13/21 08:39 Surgical History Tubal ligation status Social History Smoking Status: Current every day smoker tobacco type: cigarettes ROS ROS ED Constitutional Constitutional ED: Denies chills or fever(s) Eyes Eyes: Denies blurry vision or change in vision ENT ENT ED: Denies rhinorrhea or sore throat Cardiovascular Cardiovascular: Denies chest pain or palpitations Respiratory/Chest Respiratory/Chest: Reports dyspnea; Denies cough Gastrointestinal Gastrointestinal: Reports abdominal pain, diarrhea, nausea and vomiting; Denies melena Genitourinary Genitourinary ED: Denies dysuria or hematuria Musculoskeletal Musculoskeletal: Denies back pain or neck pain Integumentary Denies abscess or rash Neurologic Neurologic: Denies headache(s) or weakness Allergic/Immunologic Allergic/Immunologic ED: Denies mouth swelling or urticaria EXAM Physical Exam Const Vital Signs: 05/13/21 08:37 05/13/21 10:37 Temperature 98 F Temperature Source Temporal Pulse Rate 90 78 Respiratory Rate 20 H 18 Blood Pressure 140/119 H 120/67 Blood Pressure Mean 126 84 Pulse Ox 100 99 Oxygen Delivery Method Room Air Room Air Positive well nourished and well developed General Appearance ED: well developed HEENT Reports moist mucous membranes Neck supple and no JVD Resp normal respiratory effort and clear to auscultation bilaterally Cardio regular rate, regular rhythm and no murmurs GI normal to inspection, nondistended, normoactive bowel sounds Palpation: soft and tender epigastric, LUQ and RUQ; Negative for guarding or rebound tenderness present Extremity normal to inspection General Extremety ED: Negative for edema or tenderness General Extremity: Negative for edema Neuro oriented x3, CN's II-XII intact bilaterally and no sensory deficits noted Sensorium / Orientation: alert Motor Exam: strength 5/5 throughout Psych mental status grossly normal Skin no rashes or lesions noted MDM MDM MDM Narrative Medical decision making narrative: Patient was given IV fluids, morphine, and Zofran here. CBC and comprehensive metabolic profile were within normal limits. Lipase was normal. Acute abdominal x-rays were obtained. There are 4 views. On my interpretation, there is no acute process. There is no evidence of bowel obstruction. There is no evidence of perforation. Radiologist also interpreted the x-rays and agrees. Patient was feeling better on reevaluation. Patient was advised of her findings. Patient was instructed to start with small amounts of liquids and advance to a bland diet and then to a regular diet as she feels better. Patient was given a prescription for Zofran. Patient was instructed to follow-up with her primary care physician in 3 to 5 days. Patient understands and is agreeable with the plan. All questions were answered. Lab Data Labs: Laboratory Results - last 24 hr 05/13/21 05/13/21 08:55 08:55 WBC 9.0 RBC 3.99 L Hgb 12.2 Hct 36.0 L MCV 90.2 MCH 30.6 MCHC 33.9 RDW Std Deviation 42.3 RDW Coeff of Kim 12.8 Plt Count 378 MPV 9.5 Immature Gran % (Auto) 0.300 Neut % (Auto) 65.8 Lymph % (Auto) 25.1 [place] % (Auto) 7.6 Eos % (Auto) 0.9 Baso % (Auto) 0.3 Absolute Neuts (auto) 5.9 Absolute Lymphs (auto) 2.25 Nucleated RBC % 0 Sodium 141 Potassium 3.4 L Chloride 108 H Carbon Dioxide 28.0 Anion Gap 5 BUN 6 L Creatinine 0.89 Estim Creat Clear Calc 71.59 Est GFR (MDRD) Af Amer 92 Est GFR (MDRD) Non-Af 76 BUN/Creatinine Ratio 6.8 L Glucose 93 Calcium 8.7 Total Bilirubin 0.40 AST 8 L ALT 20 Alkaline Phosphatase 67 Total Protein 7.2 Albumin 3.5 Globulin 3.7 Albumin/Globulin Ratio 0.9 Lipase 35 L Radiography Diagnostic Testing: Clinical Impression(s) from Imaging Studies Acute Abdomen Series 05/13/21 09:10 IMPRESSION: Mild right basilar interstitial prominence. No acute abdominal pathology. Electronically Signed: El Cooper DO at 10:20 EST Tel [phone], Service support , Discharge Plan Triage Chief Complaint: Nausea/Vomiting/Diarrhea ED Provider: Fernando Huerta Dx/Rx/DC Orders Clinical Impression: Nausea vomiting and diarrhea Instructions: ED Vomiting (Adult) Prescriptions: Continued ondansetron 4 mg tablet,disintegrating 4 mg PO Q8H PRN (Reason: nausea and vomiting) Qty: 10 RF: 0 No Action hydroxyzine pamoate [Vistaril] 50 mg Capsule 50 mg PO 4X/DAY PRN PRN (Reason: Anxiety) RF: 0 lamotrigine [Lamictal] 100 mg Tablet 100 mg PO DAILY RF: 0 escitalopram oxalate [Lexapro] 20 mg Tablet 40 mg PO DAILY RF: 0 oxycodone-acetaminophen [Percocet] 5-325 mg tablet 1 tab PO Q8H PRN (Reason: pain) 2 Days Qty: 6 RF: 0 dicyclomine 20 mg tablet 20 mg PO TID PRN (Reason: cramps) Qty: 14 RF: 0 Primary Care Provider: Michelle Grimm NP Referrals: Michelle Grimm NP, AP[facility]MENT GROUNDSKEEPER-[facility] [Primary Care Provider] - 3-5 Days Disposition Disposition: Home, Self Care
[2021-05-13] MEDS: 0.9% Normal Saline 1,000 ML 1000 ML IV (09:21)
[2021-05-13 09:22] LABS: Absolute Lymphocyte Count 2.25 X10^3/uL (0.83-4.51); Absolute Neutrophil Count 5.9 X10^3/uL (2.0-7.7); Basophil# 0.03 X10^3/uL; Basophil% 0.3 % (0-1); Eosinophil# 0.08 X10^3/uL; Eosinophils% 0.9 % (0-5); Hemoglobin 12.2 g/dL (12.0-15.0); Lymphocyte # 2.25 X10^3/ul (0.83-4.51); Lymphocyte % 25.1 % (19-41); Mean Corp Hgb Conc 33.9 g/dL (32-36); Mean Corpuscular Hgb 30.6 pg (27.0-32.0); Mean Corpuscular Volume 90.2 fL (81-99); Mean Platelet Vol. 9.5 fl (6.2-12.0); Monocyte# 0.68 X10^3/uL; Monocyte% 7.6 % (0-10); NRBC Flagged by Analyzer 0 % (0-5); Neutrophil # 5.88 X10^3/uL (2.7-7.7); Neutrophil % 65.8 % (47-70); Platelet Count 378 K/mm3 (150-450); RBC Distribution Width CV 12.8 % (11.6-14.6); RBC Distribution Width SD 42.3 fl (35.1-43.9); Red Blood Count 3.99 M/mm3 (4.2-5.4)
[2021-05-13] MEDS: Ondansetron 4 MG/2 ML Vial IV (09:22)
[2021-05-13] MEDS: Morphine 4 MG/ML Syringe IV (09:22)
[2021-05-13 09:37] LABS: ALB/GLOB Ratio 0.9 RATIO (0.9-2.4); AST(SGOT) 8 U/L (15-37); Alanine Aminotransfer ALT/SGPT 20 U/L (13-56); Albumin, Serum 3.5 g/dL (3.2-5.0); Alkaline Phosphatase 67 U/L (45-117); Anion Gap 5 (5-15); BUN 6 mg/dL (7-18); BUN/Creat Ratio 6.8 RATIO (10-20); Calcium,Total 8.7 mg/dL (8.5-10.1); Chloride 108 mmol/L (98-107); Creatinine, Serum 0.89 mg/dL (0.55-1.02); EST Glomerular Filtration Rate 76 mL/min (>60); Est Glom Filt Rate - Afr Amer 92 mL/min (>60); Estimated Creatinine Clearance 71.59 ml/min; Globulin 3.7 g/dL (2.2-4.2); Glucose 93 mg/dL (74-106); Lipase 35 U/L (73-393); Potassium 3.4 mmol/L (3.5-5.1); Protein, Total 7.2 g/dL (6.4-8.2); Sodium Level 141 mmol/L (136-145)
[2021-05-13 10:37] VITALS: BP 120/67; PULSE 78; RESP 18; O2SAT 99
[2021-05-13 11:23] VITALS: BP 142/88; PULSE 70; RESP 18; TEMP 36.6; O2SAT 100
== END 2021-05-13 11:26 | disposition home or self-care (01) ==
PROVIDERS: Emergency Provider Emergency Medicine; PCP Nurse Practitioner Primary Care; Visit Provider Emergency Medicine
DX: R11.2 Nausea with vomiting, unspecified (principal); F31.9 Bipolar disorder, unspecified; R19.7 Diarrhea, unspecified; R10.84 Generalized abdominal pain; R06.02 Shortness of breath; F17.210 Nicotine dependence, cigarettes, uncomplicated; F41.9 Anxiety disorder, unspecified; Z79.899 Other long term (current) drug therapy; Z87.19 Personal history of other diseases of the digestive system
CPT/HCPCS: 74022; 80053; 83690; 85025; 96361; 96374; 96375; 99283; J7030; A4216; J2405

== ENCOUNTER 2021-06-20 11:45 | Emergency (ER) | payer MEDICAID, SELFPAY ==
[2021-06-20 11:45] VITALS: BP 141/90; PULSE 88; RESP 16; TEMP 36.8; O2SAT 99; BMI 33.3
[2021-06-20 12:27] LABS: Bacteria 0 SEEN /hpf (None Seen); Red Blood Cells-Urine 0 SEEN /hpf (0-5)
[2021-06-20 12:30] LABS: Absolute Lymphocyte Count 1.99 X10^3/uL (0.83-4.51); Absolute Neutrophil Count 3.7 X10^3/uL (2.0-7.7); Basophil# 0.05 X10^3/uL; Basophil% 0.8 % (0-1); Eosinophil# 0.05 X10^3/uL; Eosinophils% 0.8 % (0-5); Hematocrit 36.3 % (37-47); Hemoglobin 12.5 g/dL (12.0-15.0); Lymphocyte # 1.99 X10^3/ul (0.83-4.51); Lymphocyte % 31.7 % (19-41); Mean Corp Hgb Conc 34.4 g/dL (32-36); Mean Corpuscular Hgb 31.5 pg (27.0-32.0); Mean Corpuscular Volume 91.4 fL (81-99); Mean Platelet Vol. 9.4 fl (6.2-12.0); Monocyte# 0.47 X10^3/uL; Monocyte% 7.5 % (0-10); NRBC Flagged by Analyzer 0 % (0-5); Neutrophil % 58.9 % (47-70); Platelet Count 338 K/mm3 (150-450); RBC Distribution Width CV 13.2 % (11.6-14.6); RBC Distribution Width SD 44.8 fl (35.1-43.9); Red Blood Count 3.97 M/mm3 (4.2-5.4); White Blood Count 6.3 K/mm3 (4.4-11.0)
[2021-06-20 12:30] LABS: Color, Urine Yellow (Yellow); Glucose, Dipstick Normal (Normal); Ketone-Dipstick 5 mg/dl (Negative); Leukocyte Esterase-Dipstick 25 /ul (Negative); Nitrite-Dipstick Negative (Negative); Occult Blood-Urine Negative /ul (Negative); Protein-Dipstick Negative (Negative); Urine Bilirubin Dipstick Negative (Negative); Urine Clarity Sl. Cloudy (Clear); Urine Urobilinogen Normal (Normal)
[2021-06-20 12:42] LABS: Anion Gap 5 (5-15); BUN 12 mg/dL (7-18); BUN/Creat Ratio 12.9 RATIO (10-20); Calcium,Total 8.9 mg/dL (8.5-10.1); Chloride 109 mmol/L (98-107); Creatinine, Serum 0.93 mg/dL (0.55-1.02); EST Glomerular Filtration Rate 72 mL/min (>60); Est Glom Filt Rate - Afr Amer 87 mL/min (>60); Estimated Creatinine Clearance 68.51 ml/min; Glucose 86 mg/dL (74-106); Sodium Level 139 mmol/L (136-145)
[2021-06-20 12:42] LABS: Mucous, Urine RARE /hpf (<or=2+); Squamous Epithelial Cells - UA 0-5 SEEN /hpf (5-10); White Blood Cells 0-5 SEEN /hpf (0-5)
--- NOTE | 2021-06-20 12:56 | CT_ITS ---
STUDY: CT ABDOMEN AND PELVIS WITH CONTRAST REASON FOR EXAM: Female, 36 years old. Crampy abdominal pain and diarrhea. Patient has a history of Crohn''s disease. RADIATION DOSAGE (If Supplied By Facility): CTDIvol = ( 9.4 ) mGy, DLP = ( 451.48 ) mGycm TECHNIQUE: Transaxial images were obtained from the dome of the diaphragm to the symphysis pubis without oral contrast. IV 100mL [id number]-[id number] was administered. Sagittal and coronal images were reconstructed. Individualized dose optimization techniques were used for this CT. COMPARISON: None. FINDINGS: The visualized lung bases are unremarkable. The visualized portions of the heart are within normal limits. Normal liver. Normal gallbladder and extrahepatic biliary system. Normal spleen. Normal pancreas. There is a small, circumscribed, smooth, low attenuation left adrenal mass, consistent with an adrenal adenoma. This measures 1.2 cm. This is unchanged. Normal right adrenal gland. Normal right kidney. Normal left kidney. Normal visualized stomach. Mild degree of narrowing and thickening of the terminal ileum. Small lymph nodes are seen in the peritoneal fat in the right lower quadrant is suggestive of mesenteric adenitis. Normal colon. The appendix is visualized and appears normal. Normal abdominal aorta. Normal inferior vena cava. Normal retroperitoneum. Normal urinary bladder. There is evidence of bilateral fallopian tube clips in keeping with prior ligation. There is a small umbilical hernia containing fat. Normal osseous structures. CT/Abdomen/Pelvis W IV Cont ONLY IMPRESSION: Mild degree of thickening and narrowing of the terminal ileum. Patient has a history of Crohn''s disease. Electronically Signed: Joshua Houston MD at 14:00 EST ,
[2021-06-20 13:02] LABS: Internal QC Validated? YES +Cl - CLEAR BKGD; Pregnancy, Serum, hCG Quali. NEGATIVE Negative
[2021-06-20] MEDS: Ondansetron 4 MG/2 ML Vial IV (13:03)
[2021-06-20] MEDS: Morphine 4 MG/ML Syringe IV (13:03)
[2021-06-20] MEDS: 0.9% Normal Saline 1,000 ML 999 ML IV (13:04)
--- NOTE | 2021-06-20 13:13 | ED.VIS.GI ---
HPI HPI - GI History of Present Illness Chief Complaint: Abd Pain Narrative Narrative: 36-year-old female with history of Crohn's disease presenting with abdominal pain which she describes as pretty diffuse. Patient states she is on no long-term medications for her Crohn's disease. She has nausea and diarrhea. No black or bloody stools. 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 Patient states that today of her bowels feel like they are cramping. She is not had a fever. She denies urinary complaints. [facility] Medical History Acute Crohn's disease Anxiety Bipolar 1 disorder Depression Home Medications escitalopram oxalate [Lexapro] 40 mg PO DAILY 02/24/21 [History Last Taken Unknown] lamotrigine [Lamictal] 100 mg PO DAILY 02/24/21 [History Last Taken Unknown] gabapentin 06/20/21 [History Last Taken Unknown] prednisone See Taper PO DAILY #63 tab 06/20/21 [Rx Last Taken Unknown] Allergy/AdvReac Type Severity Reaction Status Date / Time amoxicillin Allergy Rash Verified 06/20/21 11:47 tramadol Allergy Rash Verified 06/20/21 11:47 Surgical History Tubal ligation status Social History Smoking Status: Current every day smoker tobacco type: cigarettes ROS ROS ED Constitutional Constitutional ED: Denies chills or fever(s) ENT ENT ED: Denies rhinorrhea or sore throat Cardiovascular Cardiovascular: Denies chest pain or palpitations Respiratory/Chest Respiratory/Chest: Denies cough or dyspnea Gastrointestinal Gastrointestinal: Reports abdominal pain, diarrhea and nausea Genitourinary Genitourinary ED: Denies dysuria or hematuria Musculoskeletal Musculoskeletal: Denies arthralgias or myalgias Integumentary Denies rash Neurologic Neurologic: Denies headache(s), paresthesias or weakness EXAM Physical Exam Const Vital Signs: 06/20/21 11:45 06/20/21 15:52 Temperature 98.3 F Temperature Source Temporal Pulse Rate 88 88 Respiratory Rate 16 15 Blood Pressure 141/90 H 140/76 H Blood Pressure Mean 107 Pulse Ox 99 97 Oxygen Delivery Method Room Air Positive obese General Appearance ED: NAD; Negative for pallor Nutritional Appearance: obese HEENT Reports moist mucous membranes normocephalic and atraumatic Eyes PERRL and EOMs intact bilaterally General Eye ED: Negative for pale conjunctiva or scleral icterus Resp normal respiratory effort and clear to auscultation bilaterally Cardio regular rate and regular rhythm GI non-distended GI Narrative: Mild diffuse tenderness Palpation: soft and tender Back/Spine no CVA tenderness Neuro CN's II-XII intact bilaterally Sensorium / Orientation: alert, oriented to person, oriented to place and oriented to time Psych mental status grossly normal and thought process normal Skin General Skin Exam: Negative for jaundice or pallor MDM MDM MDM Narrative Medical decision making narrative: Patient with history of Crohn's disease presenting with diffuse generalized abdominal pain. She is not on daily medications for this. Patient CBC and BMP are unremarkable. Urinalysis negative for infection. hCG is negative. She is given IV fluids, morphine, Zofran. I will obtain a CT abdomen pelvis because she states that her pain is changed from previous. Lab work is unremarkable. Urinalysis negative for infection. hCG is negative. Patient complained of more pain and was given Dilaudid. Obtained a CT of the abdomen pelvis with IV contrast which shows a mild degree of thickening at the terminal ileum. It is noted today that she has cannabinoids in her system and has a history of cannabinoid hyperemesis syndrome which may be part of her symptomatology.On reevaluation the patient was sleeping and felt improved. She already has follow-up scheduled with [facility] but was interested in following with Dr. Ojeda and that his information was given to her. She is put on a prednisone taper. Impression: 1. Crohn's flare 2. history of cannabinoid hyperemesis syndrome Lab Data Attestation: I reviewed the patient's lab results. Labs: Laboratory Results - last 24 hr 06/20/21 06/20/21 06/20/21 12:10 12:10 12:15 WBC 6.3 RBC 3.97 L Hgb 12.5 Hct 36.3 L MCV 91.4 MCH 31.5 MCHC 34.4 RDW Std Deviation 44.8 H RDW Coeff of Kim 13.2 Plt Count 338 MPV 9.4 Immature Gran % (Auto) 0.300 Neut % (Auto) 58.9 Lymph % (Auto) 31.7 [place] % (Auto) 7.5 Eos % (Auto) 0.8 Baso % (Auto) 0.8 Absolute Neuts (auto) 3.7 Absolute Lymphs (auto) 1.99 Nucleated RBC % 0 Sodium Potassium Chloride Carbon Dioxide Anion Gap BUN Creatinine Estim Creat Clear Calc Est GFR (MDRD) Af Amer Est GFR (MDRD) Non-Af BUN/Creatinine Ratio Glucose Calcium Serum , Qual Urine Color Yellow Urine Clarity Sl. Cloudy Urine pH 6.0 Ur Specific [place] 1.020 Urine Protein Negative Urine Glucose (UA) Normal Urine Ketones 5 H Urine Occult Blood Negative Urine Nitrite Negative Urine Bilirubin Negative Urine Urobilinogen Normal Ur Leukocyte Esterase 25 H Urine RBC 0 SEEN Urine WBC 0-5 SEEN Ur Squamous Epith Cells 0-5 SEEN Urine Bacteria 0 SEEN Urine Mucus RARE Urine Opiates Screen NEGATIVE Urine Methadone Screen NEGATIVE Ur Barbiturates Screen NEGATIVE Ur Phencyclidine Scrn NEGATIVE Ur Amphetamines Screen NEGATIVE U Methamphetamin-MDMA NEGATIVE U Benzodiazepines Scrn NEGATIVE Urine Cocaine Screen NEGATIVE U Cannabinoids Screen POSITIVE H Ur Drug Screen Comment 06/20/21 06/20/21 12:15 12:15 WBC RBC Hgb Hct MCV MCH MCHC RDW Std Deviation RDW Coeff of Kim Plt Count MPV Immature Gran % (Auto) Neut % (Auto) Lymph % (Auto) [place] % (Auto) Eos % (Auto) Baso % (Auto) Absolute Neuts (auto) Absolute Lymphs (auto) Nucleated RBC % Sodium 139 Potassium 4.0 Chloride 109 H Carbon Dioxide 25.0 Anion Gap 5 BUN 12 Creatinine 0.93 Estim Creat Clear Calc 68.51 Est GFR (MDRD) Af Amer 87 Est GFR (MDRD) Non-Af 72 BUN/Creatinine Ratio 12.9 Glucose 86 Calcium 8.9 Serum , Qual NEGATIVE Urine Color Urine Clarity Urine pH Ur Specific [place] Urine Protein Urine Glucose (UA) Urine Ketones Urine Occult Blood Urine Nitrite Urine Bilirubin Urine Urobilinogen Ur Leukocyte Esterase Urine RBC Urine WBC Ur Squamous Epith Cells Urine Bacteria Urine Mucus Urine Opiates Screen Urine Methadone Screen Ur Barbiturates Screen Ur Phencyclidine Scrn Ur Amphetamines Screen U Methamphetamin-MDMA U Benzodiazepines Scrn Urine Cocaine Screen U Cannabinoids Screen Ur Drug Screen Comment Radiography Diagnostic Testing: Clinical Impression(s) from Imaging Studies Abdomen/Pelvis CT 06/20/21 12:56 IMPRESSION: Mild degree of thickening and narrowing of the terminal ileum. Patient has a history of Crohn''s disease. Electronically Signed: Joshua Houston MD at 14:00 EST , Discharge Plan Triage Chief Complaint: Abd Pain ED Provider: Ben Mason Dx/Rx/DC Orders Instructions: ED Crohn's Disease Prescriptions: New prednisone 10 mg tablet See Taper mg PO DAILY Qty: 63 RF: 0 No Action lamotrigine [Lamictal] 100 mg Tablet 100 mg PO DAILY RF: 0 escitalopram oxalate [Lexapro] 20 mg Tablet 40 mg PO DAILY RF: 0 gabapentin 100 mg capsule RF: 0 Primary Care Provider: Michelle Grimm NP Referrals: Kenn Ojeda DO [STAFF PHYSICIAN] - As soon as possible Michelle Grimm NP, [employer] [Primary Care Provider] - Disposition Disposition: Home, Self Care Discharge Date/Time: 06/20/21 15:53
[2021-06-20 13:26] LABS: Amphetamine Urine VISTA NEGATIVE (<1000 ng/mL); Barbiturate Urine VISTA NEGATIVE (< 200 ng/mL); Benzodiazepine Urine VISTA NEGATIVE (< 200 ng/mL); Cocaine Urine VISTA NEGATIVE (< 300 ng/mL); Ecstacy Urine VISTA NEGATIVE (< 500 ng/mL); Methadone Urine VISTA NEGATIVE (< 300 ng/mL); PCP Urine VISTA NEGATIVE (< 25 ng/mL); THC Urine VISTA POSITIVE (< 50 ng/mL); Vista UDS pH Range 6
[2021-06-20] MEDS: HYDROmorphone 0.5 MG/0.5 ML SYRINGE IV (13:40)
[2021-06-20] MEDS: MethylPREDNISolone 125 MG/2 ML Vial IV (13:40)
[2021-06-20 15:52] VITALS: BP 140/76; PULSE 88; RESP 15; O2SAT 97
== END 2021-06-20 15:53 | disposition home or self-care (01) ==
PROVIDERS: Emergency Provider Student in an Organized Health Care Education/Training Program; PCP Nurse Practitioner Primary Care; Visit Provider Student in an Organized Health Care Education/Training Program
DX: K50.90 Crohn's disease, unspecified, without complications (principal); R11.2 Nausea with vomiting, unspecified; F12.90 Cannabis use, unspecified, uncomplicated; R10.84 Generalized abdominal pain; R19.7 Diarrhea, unspecified; F31.9 Bipolar disorder, unspecified; F41.9 Anxiety disorder, unspecified; E66.9 Obesity, unspecified; F17.210 Nicotine dependence, cigarettes, uncomplicated; Z79.899 Other long term (current) drug therapy
CPT/HCPCS: 74177; 80048; 80307; 81001; 84703; 85025; 96361; 96374; 96375; 99283; J7030; Q9967; A4216; J2405

== ENCOUNTER 2021-09-26 07:45 | Emergency (ER) | payer MEDICAID, SELFPAY ==
[2021-09-26 07:46] VITALS: BP 147/101; PULSE 86; RESP 14; TEMP 36.4; O2SAT 99; BMI 34.4
--- NOTE | 2021-09-26 08:07 | ED.VIS.GI ---
HPI HPI - GI History of Present Illness Chief Complaint: Abd Pain Narrative Narrative: 36-year-old female with history of Crohn's disease and cannabinoid hyperemesis syndrome presenting with nausea, vomiting, diarrhea. She states she does not know if this is a Crohn's flare or if she has something viral. She is not had a fever or chills. She denies urinary complaints. She is not had any black or bloody stools. Patient states that after her last visit to the emergency room she was placed on steroids. She followed with Dr. Ojeda who plans to do a colonoscopy in October. Patient states that other than tubal ligation she is not had any intra-abdominal surgeries. [facility] Medical History Acute Crohn's disease Anxiety Asthma Back problem Bipolar 1 disorder Depression Home Medications escitalopram oxalate 20 mg tablet 20 mg PO DAILY tab 08/15/21 [History Last Taken Unknown] hydroxyzine pamoate 25 mg capsule 25 mg PO QHS 08/15/21 [History Last Taken Unknown] lamotrigine 100 mg tablet 200 mg PO DAILY tab 08/15/21 [History Last Taken Unknown] dicyclomine 10 mg PO TID PRN #20 cap 09/26/21 [Rx Last Taken Unknown] ondansetron 4 mg PO Q8H PRN #14 tab 09/26/21 [Rx Last Taken Unknown] prednisone 10 mg PO DAILY #42 tab 09/26/21 [Rx Last Taken Unknown] Allergy/AdvReac Type Severity Reaction Status Date / Time amoxicillin Allergy Rash Verified 09/26/21 07:46 tramadol Allergy Rash Verified 09/26/21 07:46 Family History Mother Mental disorder Surgical History Tubal ligation status Social History Smoking Status: Current every day smoker tobacco type: cigarettes ROS ROS ED Constitutional Constitutional ED: Denies chills or fever(s) ENT ENT ED: Denies rhinorrhea or sore throat Cardiovascular Cardiovascular: Denies chest pain or palpitations Respiratory/Chest Respiratory/Chest: Denies cough or dyspnea Gastrointestinal Gastrointestinal: Reports abdominal pain, diarrhea, nausea and vomiting Genitourinary Genitourinary ED: Denies dysuria or hematuria Musculoskeletal Musculoskeletal: Denies arthralgias or myalgias Integumentary Denies rash Neurologic Neurologic: Denies headache(s) or weakness Psychiatric Psychiatric: Denies anxiety or depression EXAM Physical Exam Const Vital Signs: 09/26/21 07:46 Temperature 97.6 F L Temperature Source Temporal Pulse Rate 86 Respiratory Rate 14 Blood Pressure 147/101 H Blood Pressure Mean 116 Pulse Ox 99 Oxygen Delivery Method Room Air Positive well nourished General Appearance ED: NAD; Negative for pallor HEENT Reports moist mucous membranes normocephalic and atraumatic Eyes General Eye ED: Negative for pale conjunctiva or scleral icterus Resp normal respiratory effort and clear to auscultation bilaterally Cardio regular rate and regular rhythm GI non-tender and non-distended Palpation: soft Neuro Sensorium / Orientation: alert, oriented to person, oriented to place and oriented to time Psych mental status grossly normal and thought process normal Skin General Skin Exam: Negative for jaundice or pallor MDM MDM MDM Narrative Medical decision making narrative: 36-year-old female presenting with nausea, vomiting, diarrhea with diffuse crampy abdominal pain. IV line established and patient given a liter of IV fluids. Patient was also given Solu-Medrol, morphine, Zofran out of concern for Crohn's flare. CBC and CMP are unremarkable. Urinalysis positive for cannabinoids and opioids. Opioids are likely due to the morphine that was given here in the emergency room. Patient did request a second dose of morphine which is provided currently she feels much improved. She will be started on Zofran, Bentyl for home. She is given a prednisone taper. She will follow-up with Dr. Ojeda. She can return precautions. Impression: 1. Nausea/vomiting 2. History of Crohn's disease 3. History of cannabinoid hyperemesis syndrome 4. Diarrhea Lab Data Attestation: I reviewed the patient's lab results. Labs: Laboratory Results - last 24 hr 09/26/21 09/26/21 09/26/21 07:57 07:57 08:34 WBC 5.4 RBC 4.32 Hgb 13.5 Hct 39.6 MCV 91.7 MCH 31.3 MCHC 34.1 RDW Std Deviation 40.0 RDW Coeff of Kim 11.9 Plt Count 422 MPV 9.2 Immature Gran % (Auto) 0.200 Neut % (Auto) 45.6 L Lymph % (Auto) 43.1 H [place] % (Auto) 8.3 Eos % (Auto) 2.4 Baso % (Auto) 0.4 Absolute Neuts (auto) 2.5 Absolute Lymphs (auto) 2.33 Nucleated RBC % 0 Sodium 139 Potassium 3.7 Chloride 107 Carbon Dioxide 27.0 Anion Gap 5 BUN 11 Creatinine 1.06 H Estim Creat Clear Calc 60.11 Est GFR (MDRD) Af Amer 75 Est GFR (MDRD) Non-Af 62 BUN/Creatinine Ratio 10.4 Glucose 96 Calcium 8.9 Total Bilirubin 0.30 AST 14 L ALT 22 Alkaline Phosphatase 64 Total Protein 7.5 Albumin 3.9 Globulin 3.6 Albumin/Globulin Ratio 1.1 Lipase 52 L Urine Color Urine Clarity Urine pH Ur Specific [place] Urine Protein Urine Glucose (UA) Urine Ketones Urine Occult Blood Urine Nitrite Urine Bilirubin Urine Urobilinogen Ur Leukocyte Esterase Urine RBC Urine WBC Ur Squamous Epith Cells Urine Bacteria Urine Mucus Urine Opiates Screen POSITIVE H Urine Methadone Screen NEGATIVE Ur Barbiturates Screen NEGATIVE Ur Phencyclidine Scrn NEGATIVE Ur Amphetamines Screen NEGATIVE MDMA (Ecstasy) Screen NEGATIVE U Benzodiazepines Scrn NEGATIVE Urine Cocaine Screen NEGATIVE U Cannabinoids Screen POSITIVE H Ur Drug Screen Comment 09/26/21 08:34 WBC RBC Hgb Hct MCV MCH MCHC RDW Std Deviation RDW Coeff of Kim Plt Count MPV Immature Gran % (Auto) Neut % (Auto) Lymph % (Auto) [place] % (Auto) Eos % (Auto) Baso % (Auto) Absolute Neuts (auto) Absolute Lymphs (auto) Nucleated RBC % Sodium Potassium Chloride Carbon Dioxide Anion Gap BUN Creatinine Estim Creat Clear Calc Est GFR (MDRD) Af Amer Est GFR (MDRD) Non-Af BUN/Creatinine Ratio Glucose Calcium Total Bilirubin AST ALT Alkaline Phosphatase Total Protein Albumin Globulin Albumin/Globulin Ratio Lipase Urine Color Yellow Urine Clarity Clear Urine pH 6.0 Ur Specific [place] 1.020 Urine Protein 15 H Urine Glucose (UA) Normal Urine Ketones Negative Urine Occult Blood 10 H Urine Nitrite Negative Urine Bilirubin Negative Urine Urobilinogen Normal Ur Leukocyte Esterase 25 H Urine RBC 0-5 SEEN Urine WBC 0-5 SEEN Ur Squamous Epith Cells 0-5 SEEN Urine Bacteria 0 SEEN Urine Mucus 1+ Urine Opiates Screen Urine Methadone Screen Ur Barbiturates Screen Ur Phencyclidine Scrn Ur Amphetamines Screen MDMA (Ecstasy) Screen U Benzodiazepines Scrn Urine Cocaine Screen U Cannabinoids Screen Ur Drug Screen Comment Discharge Plan Triage Chief Complaint: Abd Pain ED Provider: Ben Mason Dx/Rx/DC Orders Instructions: ED Crohn's Disease Prescriptions: New dicyclomine 10 mg capsule 10 mg PO TID PRN (Reason: Cramping) Qty: 20 RF: 0 ondansetron 4 mg tablet,disintegrating 4 mg PO Q8H PRN (Reason: nausea and vomiting) Qty: 14 RF: 0 prednisone 10 mg tablet 10 mg PO DAILY Qty: 42 RF: 0 No Action hydroxyzine pamoate 25 mg capsule 25 mg PO QHS RF: 0 escitalopram oxalate [Lexapro] 20 mg tablet 20 mg PO DAILY RF: 0 lamotrigine [Lamictal] 100 mg tablet 200 mg PO DAILY RF: 0 Primary Care Provider: Michelle Grimm NP Referrals: Kenn Ojeda DO [STAFF PHYSICIAN] - As soon as possible PodMichelle baird NP, [employer] [Primary Care Provider] - Disposition Disposition: Home, Self Care
[2021-09-26] MEDS: MethylPREDNISolone 125 MG/2 ML Vial IV (08:13)
[2021-09-26] MEDS: 0.9% Normal Saline 1,000 ML 1000 ML IV (08:13)
[2021-09-26] MEDS: Morphine 4 MG/ML Syringe IV ×2 (08:13→09:38)
[2021-09-26] MEDS: Ondansetron 4 MG/2 ML Vial IV (08:13)
[2021-09-26 08:20] LABS: Absolute Lymphocyte Count 2.33 X10^3/uL (0.83-4.51); Absolute Neutrophil Count 2.5 X10^3/uL (2.0-7.7); Basophil# 0.02 X10^3/uL; Basophil% 0.4 % (0-1); Eosinophil# 0.13 X10^3/uL; Eosinophils% 2.4 % (0-5); Hematocrit 39.6 % (37-47); Hemoglobin 13.5 g/dL (12.0-15.0); Lymphocyte # 2.33 X10^3/ul (0.83-4.51); Lymphocyte % 43.1 % (19-41); Mean Corp Hgb Conc 34.1 g/dL (32-36); Mean Corpuscular Hgb 31.3 pg (27.0-32.0); Mean Corpuscular Volume 91.7 fL (81-99); Mean Platelet Vol. 9.2 fl (6.2-12.0); Monocyte# 0.45 X10^3/uL; Monocyte% 8.3 % (0-10); NRBC Flagged by Analyzer 0 % (0-5); Neutrophil # 2.46 X10^3/uL (2.7-7.7); Neutrophil % 45.6 % (47-70); Platelet Count 422 K/mm3 (150-450); RBC Distribution Width CV 11.9 % (11.6-14.6); Red Blood Count 4.32 M/mm3 (4.2-5.4); White Blood Count 5.4 K/mm3 (4.4-11.0)
[2021-09-26 08:38] LABS: ALB/GLOB Ratio 1.1 RATIO (0.9-2.4); AST(SGOT) 14 U/L (15-37); Alanine Aminotransfer ALT/SGPT 22 U/L (13-56); Albumin, Serum 3.9 g/dL (3.2-5.0); Alkaline Phosphatase 64 U/L (45-117); Anion Gap 5 (5-15); BUN 11 mg/dL (7-18); BUN/Creat Ratio 10.4 RATIO (10-20); Calcium,Total 8.9 mg/dL (8.5-10.1); Chloride 107 mmol/L (98-107); Creatinine, Serum 1.06 mg/dL (0.55-1.02); EST Glomerular Filtration Rate 62 mL/min (>60); Est Glom Filt Rate - Afr Amer 75 mL/min (>60); Estimated Creatinine Clearance 60.11 ml/min; Globulin 3.6 g/dL (2.2-4.2); Glucose 96 mg/dL (74-106); Lipase 52 U/L (73-393); Potassium 3.7 mmol/L (3.5-5.1); Protein, Total 7.5 g/dL (6.4-8.2); Sodium Level 139 mmol/L (136-145)
[2021-09-26 08:42] LABS: Bacteria 0 SEEN /hpf (None Seen)
[2021-09-26 08:57] LABS: Color, Urine Yellow (Yellow); Glucose, Dipstick Normal (Normal); Ketone-Dipstick Negative (Negative); Leukocyte Esterase-Dipstick 25 /ul (Negative); Nitrite-Dipstick Negative (Negative); Occult Blood-Urine 10 /ul (Negative); Protein-Dipstick 15 mg/dl (Negative); Urine Bilirubin Dipstick Negative (Negative); Urine Clarity Clear (Clear); Urine Urobilinogen Normal (Normal)
[2021-09-26 09:09] LABS: Amphetamine Urine VISTA NEGATIVE (<1000 ng/mL); Barbiturate Urine VISTA NEGATIVE (< 200 ng/mL); Benzodiazepine Urine VISTA NEGATIVE (< 200 ng/mL); Cocaine Urine VISTA NEGATIVE (< 300 ng/mL); Ecstacy Urine VISTA NEGATIVE (< 500 ng/mL); Methadone Urine VISTA NEGATIVE (< 300 ng/mL); PCP Urine VISTA NEGATIVE (< 25 ng/mL); THC Urine VISTA POSITIVE (< 50 ng/mL); Vista UDS pH Range 4
[2021-09-26 09:18] LABS: Mucous, Urine 1+ /hpf (<or=2+); Red Blood Cells-Urine 0-5 SEEN /hpf (0-5); Squamous Epithelial Cells - UA 0-5 SEEN /hpf (5-10); White Blood Cells 0-5 SEEN /hpf (0-5)
[2021-09-26 11:37] VITALS: BP 152/90; PULSE 59; RESP 14; O2SAT 100
== END 2021-09-26 11:43 | disposition home or self-care (01) ==
PROVIDERS: Emergency Provider Student in an Organized Health Care Education/Training Program; PCP Nurse Practitioner Primary Care; Visit Provider Student in an Organized Health Care Education/Training Program
DX: R11.2 Nausea with vomiting, unspecified (principal); F31.9 Bipolar disorder, unspecified; K50.90 Crohn's disease, unspecified, without complications; R19.7 Diarrhea, unspecified; R10.84 Generalized abdominal pain; F12.90 Cannabis use, unspecified, uncomplicated; J45.909 Unspecified asthma, uncomplicated; F41.9 Anxiety disorder, unspecified; F17.210 Nicotine dependence, cigarettes, uncomplicated; Z79.899 Other long term (current) drug therapy
CPT/HCPCS: 80053; 80307; 81001; 83690; 85025; 96361; 96374; 96375; 96376; 99284; J7030; A4216; J2405

== ENCOUNTER 2021-09-30 16:03 | Emergency (ER) | payer MEDICAID, SELFPAY ==
[2021-09-30 16:03] VITALS: BP 142/102; PULSE 85; RESP 16; TEMP 36.9; O2SAT 98; BMI 34.3
--- NOTE | 2021-09-30 18:01 | CT_ITS ---
STUDY: CT ABDOMEN AND PELVIS WITHOUT CONTRAST REASON FOR EXAM: Female, 36 years old. Pain RADIATION DOSAGE (If Supplied By Facility): CTDIvol = ( 11.51 ) mGy, DLP = ( 572.17 ) mGycm TECHNIQUE: Transaxial images were obtained from the dome of the diaphragm to the symphysis pubis without oral contrast, and without intravenous contrast. Sagittal and coronal images were reconstructed. Individualized dose optimization techniques were used for this CT. COMPARISON: 06/20/2021 FINDINGS: The visualized lung bases are unremarkable. The visualized portions of the heart are within normal limits. Normal liver. Normal gallbladder and extrahepatic biliary system. Normal spleen. Normal pancreas. There is a small, circumscribed, smooth, low attenuation left adrenal mass, consistent with an adrenal adenoma. Normal right adrenal gland. Normal right kidney. Normal left kidney. Normal visualized stomach. Normal small intestine. There are multiple colonic diverticula consistent with diverticulosis. The appendix is visualized and appears normal. Normal abdominal aorta. Normal inferior vena cava. Normal retroperitoneum. Normal urinary bladder. Status post bilateral tubal ligation. Normal abdominal wall. Mild levoscoliosis lumbar spine. CT/Abdomen/Pelvis without Cont IMPRESSION: Normal unenhanced CT of the abdomen and pelvis. Electronically Signed: Hima Rust MD at 19:27 EDT ,
--- NOTE | 2021-09-30 18:02 | ED.VIS.GI ---
HPI HPI - GI History of Present Illness Chief Complaint: Abd Pain Detail of Chief Complaint: Abdominal pain insert 4 days ago Informant: patient Narrative Narrative: Patient presents to the emergency department complaint of abdominal pain that started 4 days ago. Patient describes some loose stools. She denies blood in her stool. Patient has history of Crohn's and was seen here 4 days ago for the same complaint and had lab work that was unremarkable. Patient was started on Zofran and Bentyl and steroids. Patient is scheduled to see gastroenterology Dr. Ojeda in November and scheduled to have colonoscopy. 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 Patient denies any fevers at home. She denies urinary symptoms. Her last menstrual period was on the 12th of this month. Patient thinks the pain is similar to her Crohn's flareup. Patient states that the medication she was prescribed is not helping her pain Prior similar symptoms: Yes PFSH PFSH Medical History Acute Crohn's disease Anxiety Asthma Back problem Bipolar 1 disorder Depression Home Medications escitalopram oxalate 20 mg tablet 20 mg PO DAILY tab 08/15/21 [History Last Taken Unknown] hydroxyzine pamoate 25 mg capsule 25 mg PO QHS 08/15/21 [History Last Taken Unknown] lamotrigine 100 mg tablet 200 mg PO DAILY tab 08/15/21 [History Last Taken Unknown] dicyclomine 10 mg PO TID PRN #20 cap 09/26/21 [Rx Last Taken Unknown] ondansetron 4 mg PO Q8H PRN #14 tab 09/26/21 [Rx Last Taken Unknown] prednisone 10 mg PO DAILY #42 tab 09/26/21 [Rx Last Taken Unknown] hydrocodone-acetaminophen 1 tab PO Q4H PRN PRN 2 Days #10 tablet 09/30/21 [Rx Last Taken Unknown] Allergy/AdvReac Type Severity Reaction Status Date / Time amoxicillin Allergy Rash Verified 09/30/21 16:06 tramadol Allergy Rash Verified 09/30/21 16:06 Family History Mother Mental disorder Surgical History Tubal ligation status Social History Smoking Status: Current every day smoker tobacco type: cigarettes ROS ROS ED Constitutional Constitutional ED: Reports systems reviewed and no addt'l complaints, except as documented; Denies body ache(s), change in weight or chills Eyes Eyes: Denies acute decrease in peripheral vision, change in vision, double vision or loss of vision ENT ENT ED: Reports none; Denies ear pain, lip swelling, loss taste/smell, neck pain, otalgia or sore throat Cardiovascular Cardiovascular: Reports none; Denies abdominal pain, chest pain with activity, leg edema, lightheadedness, palpitations, rapid heart rate or syncope Respiratory/Chest Respiratory/Chest: Reports none; Denies change in mental status, dry cough, dyspnea, hemoptysis, shortness of breath at rest or shortness of breath with exertion Gastrointestinal Gastrointestinal: Reports none, abdominal pain, diarrhea and nausea; Denies change in stool character, hematemesis, hematochezia, melena, rectal bleeding or vomiting Genitourinary Genitourinary ED: Reports none; Denies abdominal discomfort, anuria, dysuria, genital pain or polyuria Musculoskeletal Musculoskeletal: Reports none; Denies arthralgias, back pain, difficulty walking, extremity pain, muscle weakness or myalgias Integumentary Reports none; Denies abscess or rash Neurologic Neurologic: Reports none; Denies abnormal gait, confusion, focal weakness, frequent falls, headache(s), loss of vision, numbness, paresthesias, radicular pain, vertigo or weakness Psychiatric Psychiatric: Reports systems reviewed and no addt'l complaints, except as documented and none; Denies behavioral changes, confusion, difficulty concentrating, hallucinations, suicidal ideation, tactile hallucinations or visual hallucinations Endocrine Endocrinology: Denies none, cold intolerance, excessive sweating, fatigue or heat intolerance Hematologic/Lymphatic Hematologic/Lymphatic: Reports none; Denies anemia, easy bleeding or easy bruising Allergic/Immunologic Allergic/Immunologic ED: Denies as per HPI, none, lip swelling, mouth swelling, throat swelling, tongue swelling or hives EXAM Physical Exam Const Vital Signs: 09/30/21 16:03 Temperature 98.5 F Temperature Source Temporal Pulse Rate 85 Respiratory Rate 16 Blood Pressure 142/102 H Blood Pressure Mean 115 Pulse Ox 98 Oxygen Delivery Method Room Air Positive well nourished and well developed General Appearance ED: well developed and NAD HEENT Reports TM's clear and moist mucous membranes normocephalic and atraumatic; Negative for trauma or tenderness Tympanic Membrane ED: Yes TM's clear Eyes PERRL and EOMs intact bilaterally General Eye ED: Negative for pale conjunctiva or scleral icterus Neck no lymphadenopathy, supple and no JVD General: Negative for tenderness Chest Wall inspection of chest normal and palpation of chest normal Chest: Negative for tenderness Resp normal respiratory effort and clear to auscultation bilaterally Effort and Inspection: Negative for respiratory distress or pain with movement Auscultation: Negative for rhonchi, wheezes or diminished lung sounds Cardio regular rate, regular rhythm, S1 normal heart sound, S2 normal heart sound and no murmurs Peripheral Pulses: pulses 2+ throughout GI normal to inspection, nondistended, normoactive bowel sounds, soft to palpation, non-distended and no masses GI Narrative: Patient with diffuse tenderness on exam. There is no rebound, rigidity, or peritoneal signs. Palpation: soft Back/Spine no CVA tenderness and no thoracic nor lumbar tenderness Extremity normal to inspection General Extremety ED: Negative for edema General Extremity: Negative for edema Neuro oriented x3, CN's II-XII intact bilaterally, no sensory deficits noted and gait normal Sensorium / Orientation: awake, alert, oriented to person, oriented to place and oriented to time Motor Exam: strength 5/5 throughout and strength abnormal Psych mental status grossly normal Skin no rashes or lesions noted and no wounds MDM MDM MDM Narrative Medical decision making narrative: IV line established on arrival. Patient was given morphine and Zofran for pain. She continued to complain of pain was given second dose of morphine. Lab work-up was normal including inflammatory markers and lactate. CT scan of the abdomen pelvis was also unremarkable. At this point etiology of her pain is unclear. She is advised to continue with her steroids and dicyclomine. She will follow-up with GI. I will write her prescription for just a few [place] for severe pain. Patient advised to return if worsening pain, fever, vomiting, or condition should worsen anyway. Lab Data Attestation: I reviewed the patient's lab results. Labs: Laboratory Results - last 24 hr 09/30/21 09/30/21 09/30/21 18:10 18:10 18:10 WBC 7.4 RBC 3.86 L Hgb 11.9 L Hct 35.2 L MCV 91.2 MCH 30.8 MCHC 33.8 RDW Std Deviation 41.3 RDW Coeff of Kim 12.3 Plt Count 386 MPV 9.2 Immature Gran % (Auto) 0.700 Neut % (Auto) 82.4 H Lymph % (Auto) 15.[address] % (Auto) 1.2 Eos % (Auto) 0.0 Baso % (Auto) 0.1 Absolute Neuts (auto) 6.1 Absolute Lymphs (auto) 1.15 Nucleated RBC % 0 ESR 6 Sodium 139 Potassium 3.8 Chloride 107 Carbon Dioxide 26.0 Anion Gap 6 BUN 11 Creatinine 0.87 Estim Creat Clear Calc 73.24 Est GFR (MDRD) Af Amer 94 Est GFR (MDRD) Non-Af 78 BUN/Creatinine Ratio 12.6 Glucose 108 H Lactic Acid 1.2 Calcium 8.4 L Total Bilirubin 0.20 AST 12 L ALT 30 Alkaline Phosphatase 61 C-React Prot Ext Range 2.94 Total Protein 6.8 Albumin 3.5 Globulin 3.3 Albumin/Globulin Ratio 1.1 Lipase 48 L Serum , Qual Urine Color Urine Clarity Urine pH Ur Specific [place] Urine Protein Urine Glucose (UA) Urine Ketones Urine Occult Blood Urine Nitrite Urine Bilirubin Urine Urobilinogen Ur Leukocyte Esterase Urine RBC Urine WBC Ur Squamous Epith Cells Urine Bacteria Urine Mucus 09/30/21 09/30/21 18:10 19:11 WBC RBC Hgb Hct MCV MCH MCHC RDW Std Deviation RDW Coeff of Kim Plt Count MPV Immature Gran % (Auto) Neut % (Auto) Lymph % (Auto) [place] % (Auto) Eos % (Auto) Baso % (Auto) Absolute Neuts (auto) Absolute Lymphs (auto) Nucleated RBC % ESR Sodium Potassium Chloride Carbon Dioxide Anion Gap BUN Creatinine Estim Creat Clear Calc Est GFR (MDRD) Af Amer Est GFR (MDRD) Non-Af BUN/Creatinine Ratio Glucose Lactic Acid Calcium Total Bilirubin AST ALT Alkaline Phosphatase C-React Prot Ext Range Total Protein Albumin Globulin Albumin/Globulin Ratio Lipase Serum , Qual NEGATIVE Urine Color Yellow Urine Clarity Clear Urine pH 7.0 Ur Specific [place] 1.010 Urine Protein Negative Urine Glucose (UA) Normal Urine Ketones Negative Urine Occult Blood Negative Urine Nitrite Negative Urine Bilirubin Negative Urine Urobilinogen Normal Ur Leukocyte Esterase Negative Urine RBC 0-5 SEEN Urine WBC 0-5 SEEN Ur Squamous Epith Cells 0-5 SEEN Urine Bacteria 0 SEEN Urine Mucus 0 SEEN Radiography Diagnostic Testing: Clinical Impression(s) from Imaging Studies Abdomen/Pelvis CT 09/30/21 18:01 IMPRESSION: Normal unenhanced CT of the abdomen and pelvis. Electronically Signed: Hima Rust MD at 19:27 EDT , Discharge Plan Triage Chief Complaint: Abd Pain ED Provider: Denny Chan Dx/Rx/DC Orders Clinical Impression: Abdominal pain, Crohn's disease Instructions: ED Abdominal Pain Unkn Cause Fem, ED Crohn's Disease Prescriptions: New hydrocodone-acetaminophen [hydrocodone-acetaminophen] 1 TABLET tablet 1 tab PO Q4H PRN PRN (Reason: Pain) 2 Days Qty: 10 RF: 0 No Action hydroxyzine pamoate 25 mg capsule 25 mg PO QHS RF: 0 escitalopram oxalate [Lexapro] 20 mg tablet 20 mg PO DAILY RF: 0 lamotrigine [Lamictal] 100 mg tablet 200 mg PO DAILY RF: 0 dicyclomine 10 mg capsule 10 mg PO TID PRN (Reason: Cramping) Qty: 20 RF: 0 ondansetron 4 mg tablet,disintegrating 4 mg PO Q8H PRN (Reason: nausea and vomiting) Qty: 14 RF: 0 prednisone 10 mg tablet 10 mg PO DAILY Qty: 42 RF: 0 Primary Care Provider: Michelle Grimm NP Referrals: Kenn Ojeda DO [STAFF PHYSICIAN] - 5-7 Days Michelle Grimm NP, CORE ANALYST-C [Primary Care Provider] - Disposition Disposition: Home, Self Care
[2021-09-30] MEDS: Metoclopramide 10 MG/2 ML Vial 5 MG IV (18:12)
[2021-09-30] MEDS: 0.9% Normal Saline 1,000 ML 125 ML IV (18:12)
[2021-09-30] MEDS: Morphine 4 MG/ML Syringe IV ×2 (18:13→19:19)
[2021-09-30 18:34] LABS: Absolute Lymphocyte Count 1.15 X10^3/uL (0.83-4.51); Absolute Neutrophil Count 6.1 X10^3/uL (2.0-7.7); Basophil# 0.01 X10^3/uL; Basophil% 0.1 % (0-1); Hematocrit 35.2 % (37-47); Hemoglobin 11.9 g/dL (12.0-15.0); Lymphocyte # 1.15 X10^3/ul (0.83-4.51); Lymphocyte % 15.6 % (19-41); Mean Corp Hgb Conc 33.8 g/dL (32-36); Mean Corpuscular Hgb 30.8 pg (27.0-32.0); Mean Corpuscular Volume 91.2 fL (81-99); Mean Platelet Vol. 9.2 fl (6.2-12.0); Monocyte# 0.09 X10^3/uL; Monocyte% 1.2 % (0-10); NRBC Flagged by Analyzer 0 % (0-5); Neutrophil # 6.05 X10^3/uL (2.7-7.7); Neutrophil % 82.4 % (47-70); Platelet Count 386 K/mm3 (150-450); RBC Distribution Width CV 12.3 % (11.6-14.6); RBC Distribution Width SD 41.3 fl (35.1-43.9); Red Blood Count 3.86 M/mm3 (4.2-5.4); White Blood Count 7.4 K/mm3 (4.4-11.0)
[2021-09-30 18:43] LABS: Erythrocyte Sedimentation Rate 6 mm/hr (0-30)
[2021-09-30 18:44] LABS: Internal QC Validated? YES +Cl - CLEAR BKGD; Pregnancy, Serum, hCG Quali. NEGATIVE Negative
[2021-09-30 18:57] LABS: Albumin, Serum 3.5 g/dL (3.2-5.0); BUN 11 mg/dL (7-18); BUN/Creat Ratio 12.6 RATIO (10-20); Creatinine, Serum 0.87 mg/dL (0.55-1.02); EST Glomerular Filtration Rate 78 mL/min (>60); Est Glom Filt Rate - Afr Amer 94 mL/min (>60); Estimated Creatinine Clearance 73.24 ml/min; Globulin 3.3 g/dL (2.2-4.2); Glucose 108 mg/dL (74-106); Protein, Total 6.8 g/dL (6.4-8.2)
[2021-09-30 18:58] LABS: ALB/GLOB Ratio 1.1 RATIO (0.9-2.4); AST(SGOT) 12 U/L (15-37); Alanine Aminotransfer ALT/SGPT 30 U/L (13-56); Alkaline Phosphatase 61 U/L (45-117); Anion Gap 6 (5-15); CRP 2.94 mg/L (0.0-3.0); Calcium,Total 8.4 mg/dL (8.5-10.1); Chloride 107 mmol/L (98-107); Lipase 48 U/L (73-393); Potassium 3.8 mmol/L (3.5-5.1); Sodium Level 139 mmol/L (136-145)
[2021-09-30 19:13] LABS: Bacteria 0 SEEN /hpf (None Seen); Color, Urine Yellow (Yellow); Glucose, Dipstick Normal (Normal); Ketone-Dipstick Negative (Negative); Leukocyte Esterase-Dipstick Negative /ul (Negative); Mucous, Urine 0 SEEN /hpf (<or=2+); Nitrite-Dipstick Negative (Negative); Occult Blood-Urine Negative /ul (Negative); Protein-Dipstick Negative (Negative); Urine Bilirubin Dipstick Negative (Negative); Urine Clarity Clear (Clear); Urine Urobilinogen Normal (Normal)
[2021-09-30 19:14] LABS: Lactic Acid 1.2 mmol/L (0.4-1.9)
[2021-09-30 19:30] LABS: Squamous Epithelial Cells - UA 0-5 SEEN /hpf (5-10)
[2021-09-30 19:31] LABS: Red Blood Cells-Urine 0-5 SEEN /hpf (0-5); White Blood Cells 0-5 SEEN /hpf (0-5)
[2021-09-30 20:18] VITALS: BP 160/88; PULSE 65; RESP 18; O2SAT 98
== END 2021-09-30 20:18 | disposition home or self-care (01) ==
PROVIDERS: Emergency Provider Emergency Medicine; PCP Nurse Practitioner Primary Care; Visit Provider Emergency Medicine
DX: R10.9 Unspecified abdominal pain (principal); F31.9 Bipolar disorder, unspecified; K50.90 Crohn's disease, unspecified, without complications; J45.909 Unspecified asthma, uncomplicated; F17.210 Nicotine dependence, cigarettes, uncomplicated; Z79.52 Long term (current) use of systemic steroids; Z79.899 Other long term (current) drug therapy
CPT/HCPCS: 74176; 80048; 80053; 81001; 83605; 83690; 84703; 85025; 86140; 96361; 96374; 96375; 96376; 99284; J7030; A4216

== ENCOUNTER 2021-11-15 05:27 | Day surgery (SDC) | payer MEDICAID, SELFPAY ==
[2021-11-15] VITALS (7 sets, daily range): BP systolic 100–128; BP diastolic 62–90; PULSE 80–88; RESP 16–18; TEMP 36.4–36.8; O2SAT 98–100; BMI 34.1
--- NOTE | 2021-11-15 | EGD_PTH ---
PATIENT: DIANE WELLER LOC: EN U#:[id number] AGE/SX: 36/F ROOM: RE11/15/[address]: Dr. Kenn Ojeda DO : 1985 BED: DIS: 11/15/2021 SPEC #: [id number] RECD: 11/15/21 11:04 STATUS: LORENA LUIS M #: [id number] EMANI: 11/15/21 00:[address]: Kenn Ojeda DEPT: SURGICAL PATHOLOGY RECD BY: Flynn Dale ENTERED: 11/15/21 11:05 SP TYPE: EGD BIOPSY OT DR: Michelle Grimm, SMOKEHOUSE WORKER-C Tissues: A - Duodenum, NOS B - Gastric mucous membrane C - Esophageal mucous membrane D - Ileum, NOS Procedures: Special Stain Group II Surgery Specimen Level IV Alcian Blue/PAS (control) Comments: @ Specimen number changed from [id number] to [id number] @ on 11/15/21 at 1446 by RGOOD. HEADER OPERATION: Colonoscopy, EGD ([facility]) PRE-OP DIAGNOSIS: Crohn?s disease, abdominal pain TISSUE SUBMITTED: A ? Duodenum biopsy, B ? Gastric antrum biopsy for histo and H. pylori, C ? Distal esophagus biopsy, D ? Terminal ileum biopsy MICROSCOPIC DIAGNOSIS A. Duodenum, biopsy: Suggestive of mild Todd?s gland hyperplasia. B. Gastric antrum, biopsy: Mild chronic gastritis. See comment. C. Distal esophagus, biopsy: Gastroesophageal junctional mucosa with mild chronic inflammation. No evidence of goblet cell metaplasia. Focal changes of reflux. See comment. D. Terminal ileum, biopsy: Focal acute enteritis. See comment. AM:shahla 11/16/2021 COMMENT B. The results of immunohistochemistry for Helicobacter pylori will be reported separately ([id number]). C. Alcian blue/PAS stain with matched control supports the above diagnosis. D. Rare neutrophils are seen in glandular epithelium. Clinical correlation is suggested. MICROSCOPIC DESCRIPTION Slides are reviewed. GROSS DESCRIPTION A - Received in fixative is one container labeled with the patient's name and designated duodenum biopsy. The specimen consists of one irregular fragment of light jameson soft tissue that measures 0.4 x 0.4 x 0.1 cm. The specimen is totally submitted in one cassette. B - Received in fixative is one container labeled with the patient's name and designated gastric antrum biopsy. The specimen consists of one irregular fragment of light jameson soft tissue that measures 0.4 x 0.3 x 0.1 cm. The specimen is totally submitted in one cassette. C - Received in fixative is one container labeled with the patient's name and designated distal esophagus biopsy. The specimen consists of two irregular fragments of light jameson soft tissue that in aggregate measure 0.8 x 0.3 x 0.1 cm. The specimen is totally submitted in one cassette. D - Received in fixative is one container labeled with the patient's name and designated terminal ileum biopsy. The specimen consists of two irregular fragments of light jameson soft tissue that in aggregate measure 0.8 x 0.4 x 0.1 cm. The specimen is totally submitted in one cassette. / SJ:rg 11/15/2021 TC:3 CPT: 19488 x4, [id number]
[2021-11-15] MEDS: Lactated Ringers 1,000 ML 15 ML IV (05:40)
--- NOTE | 2021-11-15 06:30 | IMM_PTH ---
PATIENT: DIANE WELLER LOC: EN U#:[id number] AGE/SX: 36/F ROOM: RE11/15/[address]: Dr. Kenn Ojeda DO : 1985 BED: DIS: 11/15/2021 SPEC #: [id number] RECD: 11/15/21 13:35 STATUS: LORENA REWill #: [id number] EMANI: 11/15/21 06:[address]: Kenn Ojeda DEPT: IMMUNOHISTOCHEMISTRY RECD BY: Gay Zhang ENTERED: 11/15/21 13:35 SP TYPE: IMMUNO OTHR DR: Michelle Grimm, WINDOW AND DOOR INSTALLER-C Tissues: B - Stomach, NOS Procedures: H Pylori (initial) PHYSICIAN & INSTITUTION [place] [id number] SPECIMEN INFORMATION: Tissue Source: B ? Gastric antrum Clinical Info: Crohn?s disease, abdominal pain Specimen Number: [id number] CPT code: 55498 METHODOLOGY: Deparaffinized sections of prefer/formalin-fixed tissue or PAP/DQ stained slides are incubated with monoclonal/polyclonal antibodies/oligonucleotide probes. Localization is made via biotin free immunoperoxidase method. Appropriate controls are performed and reacted as expected. Results on target cell population are indicated in the following table: RESULTS: ANTIBODY / CLONE RESULT Block B H Pylori (polyclonal) negative These tests were developed and their performance characteristics determined by [facility]. They may not have been cleared or approved by the U.S. Food and Drug Administration. The FDA has determined that such clearance or approval is not necessary. The above immunohistochemical/dualISH markers are ordered and reviewed by the Pathologist. INTERPRETATION: B. Gastric antrum, biopsy: Negative for Helicobacter pylori organisms. AM:shahal 11/16/2021
--- NOTE | 2021-11-15 06:34 | HP.PCM_ITS ---
History and Physical Date of Admission: 11/15/21 DIANE WELLER, is a 36 with history of Crohn's disease presenting with abdominal pain which she describes as pretty diffuse.? Patient states she is on no long-term medications for her Crohn's disease.? She was taking Pentasa in the past. . She has nausea and diarrhea.? No black or bloody stools.? 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 Patient states that today of her bowels feel like they are cramping.? She is not had a fever.? She denies urinary complaints.? She had a CT scan of the pelvis and it showed some thickening at the level of the terminal ileum and entering the colon.? She has lost about 20 pounds.? She does get intermittent crampy right lower quadrant and left lower quadrant abdominal pain radiating into the pelvis.? She denies intermittent fevers or fecal incontinence.? She has about 3-4 bottles per day without the use of laxatives.? She has a aunt that has Crohn's disease and a cousin that has Crohn's disease.? She has not had abdominal surgeries.? She does smoke cigarettes on a daily basis.? She has no history of liver abnormalities or pancreatic abnormalities.? She has no rashes ulcers or lesions.? She denies any vision changes. ROS Const Constitutional: Positive for fatigue and weight change; No anorexia, body ache, chills, excessive sweating, fever(s), frequent falls, headache(s), decreased energy, malaise, night sweats, snoring, weakness, sleep problems, abnormal sleep pattern, change in appetite or other Eyes Eyes: No blurry vision, change in vision, double vision, irritation, discharge, vision loss, dry eyes, bulging eyes, floaters, visual disturbances, eye pain, Light sensitivity, spots in vision, tunnel vision or other ENT ENT: No abnormal hearing, ear or mastoid pain, ear discharge, ear pressure, hearing loss, tinnitus, dizziness/vertigo, balance problems, nosebleed/epistaxis, nasal congestion, nasal obstruction, nose pain, sinus pressure, sinus pain, nasal discharge, post nasal drip, headache(s), facial pain, dental pain, dry mouth, difficulty swallowing, bad breath, hoarseness, lip swelling, mouth lesions, mouth pain, neck pain, sore throat, tongue swelling, throat swelling or other Resp Respiratory: No cough, change in phlegm color, chest congestion, excessive phlegm production, hemoptysis, pain on inspiration, shortness of breath, pain with cough, snoring, stridor, wheezing or other Cardio Cardiology: No chest pain at rest, chest pain with exertion, leg pain with exertion, excessive sweating, shortness of breath, dyspnea on exertion, generalized swelling, irregular heart rhythm, lightheadedness, orthopnea, radiating jaw, neck or arm pain, fast heart rate, slow heart rate, palpitations, difficulty breathing or other Gastro GI: Positive for abdominal pain, bloating, change in bowel habits, constipation, nausea/dyspepsia and vomiting; No belching, change in stool character, coffee ground emesis, cramping, diarrhea, heartburn, difficulty swallowing, feeling full early, excessive flatus, incontinent of stools, Vomiting blood/hematemesis, Blood in stool, loose stools, Black,tarry stools, pain with swallowing or other Musc Musculoskeletal: Positive for back pain; No abnormal gait, joint pain, deformity, joint swelling, limited range of motion, loss of height, muscle cramps, muscle weakness, decreased muscle mass, myalgias, neck pain, numbness, radiating pain into limb, stiffness, tingling, Arthritis, sciatica, restless legs, leg pain at night, leg pain with exertion or other Skin Skin: No acne, hair loss in leg, change in hair, nail changes, boil, change in skin color, dry skin, redness, excessive hair growth, yellowing of the eye, lesions, itchy eyes, rash, skin pain, skin ulcer, sores, skin swelling, wounds or other Breast Breast: No change in breast shape, breast lump, breast pain, breast skin changes, breast swelling, nipple discharge or other Neuro Neurology: No abnormal gait, abnormal hearing, abnormal movements, abnormal speech, behavioral changes, confusion, unsteady gait/balance, dizziness, weakness, frequent falls, headache(s), lack of coordination, loss of vision, memory loss, numbness, tingling, visual disturbances, restless legs, fainting, tremor(s), Increased tone in limbs, paralysis, seizures or other Psych Psychiatric: No abnormal sleep pattern, No lack of enjoyment, Positive for anxiety, No behavioral changes, No change in appetite, No confusion, Positive for depression, No difficulty concentrating, No hopelessness, No irritability, No memory loss, No mood swings, No panic attacks, No paranoia, No Thoughts of harming yourself/Others, No hallucinations, No Behavioral Problems, No Compulsive Behavior, No hyperactivity, No inattentiveness, No obs essions/compulsions, No Temper Tantrums, No suicidal ideation and No other Endo Endocrine: Positive for fatigue and weight change; No change in body appearance, cold intolerance, excessive sweating, flushing, heat intolerance, increased thirst/drinking, increased hunger, increased urine leakage or other Aller/Imm Allergy/Immunologic: No itchy eyes, lip swelling, throat swelling, tongue swelling or wheezing Exam Const General: cooperative and comfortable Nutritional Appearance: average body habitus and well nourished HENMT Head: normal to inspection Ears: hearing grossly normal bilaterally Nose: external nose normal Face and sinus: normal facial exam Mouth: oral mucosae normal Throat: posterior oropharynx normal Eyes General: appearance normal, both eyes and all related structures Neck Neck: normal visual inspection Chest Chest palpation & inspection: normal inspection of the chest and normal palpation of entire chest wall Resp Effort & Inspection: normal respiratory effort Auscultation: Bilateral: Clear to Auscultation Cardio Palpation: normal PMI Rate: regular rate Rhythm: regular rhythm GI Inspection: normal to inspection Auscultation: normal bowel sounds Percussion: normal to percussion Palpation: no hepatosplenomegaly Skin General: no rashes or lesions noted Neuro General: patient alert Extrem General: normal to inspection Psych Affect: normal affect Quality Reporting Tobacco Screening ([facility] 138) Smoking Status: Current every day smoker Assessment and Plan Assessment and Plan (1) Crohn's disease: ?Status:?Acute ?Plan - Dr. Hawk Friend, DO: I will order ESR, CRP, fecal lactoferrin, stool WBCs, C. difficile, stool for ova parasites, Giardia, we will also get a colonoscopy to evaluate the colon and the terminal ileum.? If her colonoscopy does show signs of inflammatory bowel disease then she will need likely anti-TNF medication versus no neuromodulator or both.? We will also need to get a small bowel follow-through and possible capsule. (2) Abdominal pain: ?Status:?Acute ?Plan - Dr. Hawk Friend, DO: She should have her upper GI tract evaluated for inflammatory bowel disease, gastritis, peptic ulcer disease, celiac disease. I have re-examined the patient. There are no clinical changes since date of exam.
--- NOTE | 2021-11-15 07:16 | OP.CCLET_ITS ---
02/13/2022 Michelle Podlogar Re : Upper GI endoscopy procedure for Irvin Tan Dear Podlogar This procedure was performed on November. My impressions and recommendations are as follows: Impressions : - LA Grade A reflux esophagitis. Biopsied. - Small hiatal hernia. - Erythematous mucosa in the antrum. Biopsied. - Erythematous duodenopathy. Recommendations : - Discharge patient to home. - Resume previous diet. - Continue present medications. - Await pathology results. My findings are described in the full procedure note, which is enclosed. If I can be of further assistance, please feel free to contact me at . Sincerely, Kenn Ojeda, 11/15/2021 7:16:03 AM This report has been signed electronically.
--- NOTE | 2021-11-15 07:16 | OP.EGD_ITS ---
Patient Name: Irvin Tan Procedure Date: 11/15/2021 6:23 AM Date of : 1985 Age: 36 Procedure: Upper GI endoscopy Indications: Lower abdominal pain, Upper abdominal pain Providers: Kenn Ojeda DO Medicines: Monitored Anesthesia Care Patient Profile: This is a 36 year old female. Refer to note in patient chart for documentation of history and physical. Patient has symptoms of chronic epigastric abdominal pain. Complications: No immediate complications. Procedure: Pre-Anesthesia Assessment: - Prior to the procedure, a History and Physical was performed, and patient medications and allergies were reviewed. The patient is competent. The risks and benefits of the procedure and the sedation options and risks were discussed with the patient. All questions were answered and informed consent was obtained. Patient identification and proposed procedure were verified by the physician. Mental Status Examination: alert and oriented. Airway Examination: normal oropharyngeal airway and neck mobility. Respiratory Examination: clear to auscultation. CV Examination: normal. Prophylactic Antibiotics: The patient does not require prophylactic antibiotics. Prior Anticoagulants: The patient has taken no previous anticoagulant or antiplatelet agents. ASA Grade Assessment: II - A patient with mild systemic disease. After reviewing the risks and benefits, the patient was deemed in satisfactory condition to undergo the procedure. The anesthesia plan was to use moderate sedation / analgesia (conscious sedation). Immediately prior to administration of medications, the patient was re-assessed for adequacy to receive sedatives. The heart rate, respiratory rate, oxygen saturations, blood pressure, adequacy of pulmonary ventilation, and response to care were monitored throughout the procedure. The physical status of the patient was re-assessed after the procedure. After obtaining informed consent, the endoscope was passed under direct vision. Throughout the procedure, the patient's blood pressure, pulse, and oxygen saturations were monitored continuously. The Colonoscope was introduced through the mouth, and advanced to the second part of duodenum. The upper GI endoscopy was accomplished without difficulty. The patient tolerated the procedure well. Scope In: 6:41:21 AM Scope Out: 6:47:08 AM Total Procedure Duration Time 0 hours 5 minutes 47 seconds Findings: LA Grade A (one or more mucosal breaks less than 5 mm, not extending between tops of 2 mucosal folds) esophagitis with no bleeding was found 35 to 37 cm from the incisors. Biopsies were taken with a cold forceps for histology. Verification of patient identification for the specimen was done. Estimated blood loss was minimal. A small hiatal hernia was present. Patchy mildly erythematous mucosa without bleeding was found in the gastric antrum. Biopsies were taken with a cold forceps for histology. Verification of patient identification for the specimen was done. Estimated blood loss was minimal. Patchy mildly erythematous mucosa without active bleeding and with no stigmata of bleeding was found in the duodenal bulb. A non-obstructing Schatzki ring was found in the distal esophagus. A guidewire was placed and the scope was withdrawn. Dilation was performed with a Savary dilator with no resistance at 36 Fr. Impression: - LA Grade A reflux esophagitis. Biopsied. - Small hiatal hernia. - Erythematous mucosa in the antrum. Biopsied. - Erythematous duodenopathy. Recommendation: - Discharge patient to home. - Resume previous diet. - Continue present medications. - Await pathology results. Procedure Code(s): --- Professional --- 85181, Esophagogastroduodenoscopy, flexible, transoral; with insertion of guide wire followed by passage of dilator(s) through esophagus over guide wire 56699, 59,51, Esophagogastroduodenoscopy, flexible, transoral; with biopsy, single or multiple CPT copyright 2017 [employer]. All rights reserved. The codes documented in this report are preliminary and upon glassware maker demonstrator review may be revised to meet current compliance requirements. Kenn Ojeda DO 11/15/2021 7:16:03 AM This report has been signed electronically. Number of Addenda: 1 Note Initiated On: 11/15/2021 6:23 AM Addendum Number: 1 Addendum Date: 02/13/2022 6:28:55 AM MAC was used as sedation for this procedure. Kenn Ojeda DO 02/13/2022 6:28:59 AM This report has been signed electronically.
--- NOTE | 2021-11-15 07:19 | OP.CCLET_ITS ---
02/13/2022 Michelle Podlogar Re : Colonoscopy procedure for Irvin Tan Dear Podlogar This procedure was performed on November. My impressions and recommendations are as follows: Impressions : - Diverticulosis in the recto-sigmoid colon, in the sigmoid colon and in the descending colon. - The examination was otherwise normal on direct and retroflexion views. - Multiple ulcers in the terminal ileum. Biopsied. Recommendations : - Discharge patient to home. - Resume previous diet. - Continue present medications. - Await pathology results. - Repeat colonoscopy in 1 year for surveillance. - Return to GI office. My findings are described in the full procedure note, which is enclosed. If I can be of further assistance, please feel free to contact me at . Sincerely, Kenn Ojeda, 11/15/2021 7:19:07 AM This report has been signed electronically.
--- NOTE | 2021-11-15 07:19 | OP.COLON_ITS ---
Patient Name: Irvin Tan Procedure Date: 11/15/2021 6:47 AM Date of : 1985 Age: 36 Procedure: Colonoscopy Indications: Abdominal pain in the right lower quadrant, Lower abdominal pain, Clinically significant diarrhea of unexplained origin Providers: Kenn Ojeda DO Medicines: Monitored Anesthesia Care Patient Profile: This is a 36 year old female. Refer to note in patient chart for documentation of history and physical. Patient has symptoms of chronic epigastric abdominal pain. Last Colonoscopy: date unknown. Unable to locate last colonoscopy report. Complications: No immediate complications. Procedure: Pre-Anesthesia Assessment: - Prior to the procedure, a History and Physical was performed, and patient medications and allergies were reviewed. The patient is competent. The risks and benefits of the procedure and the sedation options and risks were discussed with the patient. All questions were answered and informed consent was obtained. Patient identification and proposed procedure were verified by the physician. Mental Status Examination: alert and oriented. Airway Examination: normal oropharyngeal airway and neck mobility. Respiratory Examination: clear to auscultation. CV Examination: normal. Prophylactic Antibiotics: The patient does not require prophylactic antibiotics. Prior Anticoagulants: The patient has taken no previous anticoagulant or antiplatelet agents. ASA Grade Assessment: II - A patient with mild systemic disease. After reviewing the risks and benefits, the patient was deemed in satisfactory condition to undergo the procedure. The anesthesia plan was to use moderate sedation / analgesia (conscious sedation). Immediately prior to administration of medications, the patient was re-assessed for adequacy to receive sedatives. The heart rate, respiratory rate, oxygen saturations, blood pressure, adequacy of pulmonary ventilation, and response to care were monitored throughout the procedure. The physical status of the patient was re-assessed after the procedure. After I obtained informed consent, the scope was passed under direct vision. Throughout the procedure, the patient's blood pressure, pulse, and oxygen saturations were monitored continuously. The Colonoscope was introduced through the anus and advanced to the terminal ileum. The colonoscopy was performed without difficulty. The patient tolerated the procedure well. The quality of the bowel preparation was good. Scope In: 6:50:18 AM Scope Withdrawal Time 0 hours 10 minutes 58 seconds Scope Out: 7:08:48 AM Total Procedure Duration Time 0 hours 18 minutes 30 seconds Findings: The perianal and digital rectal examinations were normal. A few small and large-mouthed diverticula were found in the recto-sigmoid colon, sigmoid colon and descending colon. The exam was otherwise without abnormality on direct and retroflexion views. The terminal ileum contained multiple ulcers. No bleeding was present. Biopsies were taken with a cold forceps for histology. Verification of patient identification for the specimen was done. Estimated blood loss was minimal. Impression: - Diverticulosis in the recto-sigmoid colon, in the sigmoid colon and in the descending colon. - The examination was otherwise normal on direct and retroflexion views. - Multiple ulcers in the terminal ileum. Biopsied. Recommendation: - Discharge patient to home. - Resume previous diet. - Continue present medications. - Await pathology results. - Repeat colonoscopy in 1 year for surveillance. - Return to GI office. Procedure Code(s): --- Professional --- 58552, Colonoscopy, flexible; with biopsy, single or multiple CPT copyright 2017 [employer]. All rights reserved. The codes documented in this report are preliminary and upon application release manager review may be revised to meet current compliance requirements. Kenn Ojeda DO 11/15/2021 7:19:07 AM This report has been signed electronically. Number of Addenda: 1 Note Initiated On: 11/15/2021 6:47 AM Addendum Number: 1 Addendum Date: 02/13/2022 6:29:06 AM MAC was used as sedation for this procedure. Kenn Ojeda DO 02/13/2022 6:29:10 AM This report has been signed electronically.
== END 2021-11-15 07:56 | disposition home or self-care (01) ==
LOC: EN 05:28 → AC 05:30
PROVIDERS: PCP Nurse Practitioner Primary Care; Referring Provider Nurse Practitioner Primary Care; Visit Provider Internal Medicine Gastroenterology
PROC: 0DJD8ZZ Inspection of Lower Intestinal Tract, Via Natural or Artificial Opening Endoscopic (ICD-10-PCS; CPT 45378; principal; 2021-11-15 06:25)
DX: K63.3 Ulcer of intestine (principal); K50.90 Crohn's disease, unspecified, without complications; K22.2 Esophageal obstruction; K44.9 Diaphragmatic hernia without obstruction or gangrene; R19.7 Diarrhea, unspecified; K57.30 Diverticulosis of large intestine without perforation or abscess without bleeding; K21.00 Gastro-esophageal reflux disease with esophagitis, without bleeding; K20.90 Esophagitis, unspecified without bleeding; K29.50 Unspecified chronic gastritis without bleeding; K52.9 Noninfective gastroenteritis and colitis, unspecified; F17.210 Nicotine dependence, cigarettes, uncomplicated
CPT/HCPCS: 45380; 43248; 43239; 88305; 88313; 88342; J7120; J2405

== ENCOUNTER 2021-11-21 14:46 | Emergency (ER) | payer MEDICAID, SELFPAY ==
[2021-11-21 14:47] VITALS: BP 152/97; PULSE 90; RESP 16; TEMP 36.7; O2SAT 100; BMI 34.0
--- NOTE | 2021-11-21 15:08 | CT_ITS ---
STUDY: CT ABDOMEN AND PELVIS WITH CONTRAST REASON FOR EXAM: Female, 36 years old. Diffuse abd pain. [place] RADIATION DOSAGE (If Supplied By Facility): CTDIvol = ( 13.47 ) mGy, DLP = ( 1004.22 ) mGycm TECHNIQUE: Transaxial images were obtained from the dome of the diaphragm to the symphysis pubis without oral contrast. IV 100mL Isovue-300 was administered. Sagittal and coronal images were reconstructed. Individualized dose optimization techniques were used for this CT. COMPARISON: Comparison is made with prior study of 09/30/2021. FINDINGS: The visualized lung bases are unremarkable. The visualized portions of the heart are within normal limits. Normal liver. Normal gallbladder and extrahepatic biliary system. Normal spleen. Normal pancreas. There is a small, circumscribed, smooth, low attenuation left adrenal mass, consistent with an adrenal adenoma. This measures 1.3 cm. Normal right adrenal gland. Normal right kidney. Normal left kidney. Normal visualized stomach. Normal small intestine. Normal colon. The appendix is visualized and appears normal. Normal abdominal aorta. Normal inferior vena cava. Normal retroperitoneum. Normal urinary bladder. Bilateral tubal ligation clips are seen. There is a small umbilical hernia containing fat. Normal osseous structures. CT/Abdomen/Pelvis W IV Cont ONLY IMPRESSION: Stable small left adrenal nodule suggestive of benign adenoma. Electronically Signed: Joshua Houston MD at 15:48 EDT ,
--- NOTE | 2021-11-21 15:09 | EDS_ITS ---
HPI HPI - GI History of Present Illness Chief Complaint: Abd Pain Informant: patient Abdominal Pain/Flank Pain Onset: Today Timing: Continuous Quality: Cramping Location: Diffuse Current Severity: Mild Maximum Severity: Mild Worsened by: Nothing Relieved by: Nothing Nausea/Vomiting/Emesis GI Symptom: Positive for Nausea and Vomiting Onset: Today Severity: Moderate Diarrhea/Melena/Hematochezia GI Symptom: Positive for Diarrhea; Negative for Melena or Hematochezia Onset: Today Stool Quality: Positive for Loose Severity: Mild Associated Symptoms Associated Symptoms: Negative for Dysuria, Frequency, Hematuria or Urgency Narrative Narrative: 36-year-old female history of Crohn's disease and bipolar disorder. Only prior abdominal pelvic surgeries is a D&C and tubal ligation. She has never had any surgeries for her Crohn's. She did have upper and lower scopes done within the past 6 months. She is established with Dr. Ojeda of gastroenterology. She denies any fever. She denies any dysuria. Prior similar symptoms: Yes Recent Illness/Hospitalization: No PFSH PFSH Medical History Acute Crohn's disease Anxiety Back problem Bipolar 1 disorder Depression History of blood transfusion Marijuana use Restless legs Smoker Home Medications escitalopram oxalate 20 mg tablet (Lexapro) 20 mg PO DAILY 08/15/21 [History Last Taken Unknown] hydroxyzine pamoate 25 mg capsule 25 mg PO QHS 08/15/21 [History Last Taken Unknown] lamotrigine 100 mg tablet (Lamictal) 200 mg PO DAILY 08/15/21 [History Last Taken Unknown] ondansetron 4 mg disintegrating tablet 4 mg PO Q6H PRN nausea and vomiting #7 tabs 11/21/21 [Rx Last Taken Unknown] Allergy/AdvReac Type Severity Reaction Status Date / Time amoxicillin Allergy Rash Verified 11/21/21 14:49 tramadol Allergy Rash Verified 11/21/21 14:49 Family History Mother Mental disorder Surgical History Tubal ligation status Social History Smoking Status: Current every day smoker tobacco type: cigarettes ROS ROS ED ROS Narrative Abdominal cramping and nausea, vomiting and diarrhea. Review of Systems ROS Unobtainable: Denies due to encephalopathy Constitutional Constitutional ED: Denies chills ENT ENT ED: Denies ear pain Cardiovascular Cardiovascular: Denies chest pain Respiratory/Chest Respiratory/Chest: Denies cough Gastrointestinal Gastrointestinal: Reports abdominal pain, diarrhea, nausea and vomiting; Denies constipation or melena Genitourinary Genitourinary ED: Denies dysuria or hematuria Musculoskeletal Musculoskeletal: Denies arthralgias Integumentary Denies abscess Neurologic Neurologic: Denies headache(s) Psychiatric Psychiatric: Denies anxiety Endocrine Endocrinology: Denies polydipsia Hematologic/Lymphatic Hematologic/Lymphatic: Denies easy bleeding Allergic/Immunologic Allergic/Immunologic ED: Denies mouth swelling EXAM Physical Exam Narrative Exam Narrative: 36-year-old female no distress. Vital signs are stable and afebrile. H EENT exam unremarkable. Neck nontender. Lungs clear to auscultation. Heart regular rhythm rate about 90 no murmur. Abdomen soft nondistended normal normal bowel sounds no peritoneal signs. No hernia or mass. No signs of obstruction. Diffusely but mildly tender.. No specific right upper or right lower quadrant tenderness. Moving all 4 extremities. Nontender no edema. Neurologically she is awake and alert Const Vital Signs: 11/21/21 14:47 Temperature 98.1 F Temperature Source Temporal Pulse Rate 90 Respiratory Rate 16 Blood Pressure 152/97 H Blood Pressure Mean 115 Pulse Ox 100 Oxygen Delivery Method Room Air Positive well nourished, well developed and obese; Negative for cachectic, contractures or unkempt General Appearance ED: well developed; Negative for unkempt, cachectic or contractures Nutritional Appearance: obese; Negative for cachectic HEENT Reports moist mucous membranes normocephalic and atraumatic; Negative for trauma or tenderness Eyes PERRL and EOMs intact bilaterally General Eye ED: Negative for pale conjunctiva or scleral icterus Neck no lymphadenopathy, supple and no JVD General: Negative for tenderness Lymph Lymphatic: Negative for other Resp normal respiratory effort and clear to auscultation bilaterally Effort and Inspection: Negative for respiratory distress Auscultation: Negative for rales or rhonchi Cardio regular rate, regular rhythm, S1 normal heart sound, S2 normal heart sound and no murmurs GI non-distended and no masses; Negative for non-tender Inspection: Negative for abdominal distention Auscultation: normoactive bowel sounds; Negative for hyperactive bowel sounds or hypoactive bowel sounds Palpation: soft and tender; Negative for guarding, rigid, hepatomegaly, splenomegaly, hernia, mass, pulsatile mass or rebound tenderness present Back/Spine no CVA tenderness Extremity full ROM General Extremety ED: Negative for edema or tenderness General Extremity: Negative for edema Neuro CN's II-XII intact bilaterally and moves all extremities Sensorium / Orientation: alert, oriented to person, oriented to place and oriented to time; Negative for orientation impaired, confused, lethargic or stuporous Motor Exam: strength 5/5 throughout; Negative for general weakness Psych mental status grossly normal and thought process normal Appearance: Negative for unkempt Attitude: No agitated Mood & Affect: Negative for depressed, anxious or tearful Skin no wounds General Skin Exam: Negative for jaundice Lesions: no lesions Rashes: no rashes Trauma: Negative for abrasion Nails: Negative for discolored MDM MDM MDM Narrative Medical decision making narrative: 36-year-old female with Crohn's history with abdominal cramping, nausea, vomiting diarrhea just began today. CAT scan labs are pending. She will be gi yanira Toradol for pain and Zofran for nausea. Along with IV fluids. Repeat exam at 4:35 PM patient doing well. She was treated initially with Toradol and Zofran. I do not think she needs any narcotic pain medication even though she is requested for more medications for pain. Abdomen is benign on repeat exam. No peritoneal signs. Patient I discussed all of her test results. She will be discharged for Zofran. Lab Data Attestation: I reviewed the patient's lab results. Lab results narrative: CBC shows a white count of 5. H&H of 12 and 34. Platelets normal. Electrolytes show a gap of 3. Normal BUN and creatinine. Of 9 and 0.9. Liver enzymes are unremarkable. Lipase is normal at 66. test is negative and CAT scan shows a chronic left adrenal adenoma. Basically a benign work-up. Labs: Laboratory Results - last 24 hr 11/21/21 11/21/21 11/21/21 15:15 15:15 15:15 WBC 5.7 RBC 3.85 L Hgb 12.0 Hct 34.7 L MCV 90.1 MCH 31.2 MCHC 34.6 RDW Std Deviation 40.4 RDW Coeff of Kim 12.4 Plt Count 379 MPV 9.1 Immature Gran % (Auto) 0.300 Neut % (Auto) 46.9 L Lymph % (Auto) 42.0 H [place] % (Auto) 8.2 Eos % (Auto) 1.9 Baso % (Auto) 0.7 Absolute Neuts (auto) 2.7 Absolute Lymphs (auto) 2.41 Nucleated RBC % 0 Sodium 139 Potassium 3.6 Chloride 109 H Carbon Dioxide 27.0 Anion Gap 3 L BUN 9 Creatinine 0.94 Estim Creat Clear Calc 67.78 Est GFR (MDRD) Af Amer 86 Est GFR (MDRD) Non-Af 71 BUN/Creatinine Ratio 9.6 L Glucose 101 Calcium 8.6 Total Bilirubin < 0.10 L AST 18 ALT 26 Alkaline Phosphatase 69 Total Protein 6.6 Albumin 3.3 Globulin 3.3 Albumin/Globulin Ratio 1.0 Lipase 66 L Serum , Qual NEGATIVE Radiography Diagnostic Testing: Clinical Impression(s) from Imaging Studies Abdomen/Pelvis CT 11/21/21 15:08 IMPRESSION: Stable small left adrenal nodule suggestive of benign adenoma. Electronically Signed: Joshua Houston MD at 15:48 EDT Reading Location ID and State: [facility] / [place] , Service support , Discharge Plan Triage Chief Complaint: Abd Pain Other Complaint: Nausea/Vomiting/Diarrhea ED Provider: Marquise Solares Dx/Rx/DC Orders Clinical Impression: Viral gastroenteritis, Abdominal pain, History of Crohn's disease Instructions: Viral Gastroenteritis Prescriptions: New ondansetron 4 mg tablet,disintegrating 4 mg PO Q6H PRN (Reason: nausea and vomiting) Qty: 7 0RF No Action hydroxyzine pamoate 25 mg capsule 25 mg PO QHS escitalopram oxalate [Lexapro] 20 mg tablet 20 mg PO DAILY lamotrigine [Lamictal] 100 mg tablet 200 mg PO DAILY Primary Care Provider: Michelle Grimm NP Referrals: Michelle Grimm NP, SECURITY MONITOR-C [Primary Care Provider] - Activity Restrictions/Additional Instructions: Plenty of fluids and rest. Zofran as needed for nausea. Follow-up with your doctor as needed. Your cardiac status later that heart was normal. There are no Disposition Disposition: Home, Self Care
[2021-11-21] MEDS: 0.9% Normal Saline 1,000 ML 1000 ML IV (15:15)
[2021-11-21] MEDS: Ketorolac 30 MG/ML Syringe IV (15:15)
[2021-11-21] MEDS: Ondansetron 4 MG/2 ML Vial IV (15:16)
[2021-11-21 15:27] LABS: Absolute Lymphocyte Count 2.41 X10^3/uL (0.83-4.51); Absolute Neutrophil Count 2.7 X10^3/uL (2.0-7.7); Basophil# 0.04 X10^3/uL; Basophil% 0.7 % (0-1); Eosinophil# 0.11 X10^3/uL; Eosinophils% 1.9 % (0-5); Hematocrit 34.7 % (37-47); Lymphocyte # 2.41 X10^3/ul (0.83-4.51); Mean Corp Hgb Conc 34.6 g/dL (32-36); Mean Corpuscular Hgb 31.2 pg (27.0-32.0); Mean Corpuscular Volume 90.1 fL (81-99); Mean Platelet Vol. 9.1 fl (6.2-12.0); Monocyte# 0.47 X10^3/uL; Monocyte% 8.2 % (0-10); NRBC Flagged by Analyzer 0 % (0-5); Neutrophil # 2.69 X10^3/uL (2.7-7.7); Neutrophil % 46.9 % (47-70); Platelet Count 379 K/mm3 (150-450); RBC Distribution Width CV 12.4 % (11.6-14.6); RBC Distribution Width SD 40.4 fl (35.1-43.9); Red Blood Count 3.85 M/mm3 (4.2-5.4); White Blood Count 5.7 K/mm3 (4.4-11.0)
[2021-11-21 15:48] LABS: Internal QC Validated? YES +Cl - CLEAR BKGD; Pregnancy, Serum, hCG Quali. NEGATIVE Negative
[2021-11-21 16:02] LABS: AST(SGOT) 18 U/L (15-37); Alanine Aminotransfer ALT/SGPT 26 U/L (13-56); Albumin, Serum 3.3 g/dL (3.2-5.0); Alkaline Phosphatase 69 U/L (45-117); Anion Gap 3 (5-15); BUN 9 mg/dL (7-18); BUN/Creat Ratio 9.6 RATIO (10-20); Calcium,Total 8.6 mg/dL (8.5-10.1); Chloride 109 mmol/L (98-107); Creatinine, Serum 0.94 mg/dL (0.55-1.02); EST Glomerular Filtration Rate 71 mL/min (>60); Est Glom Filt Rate - Afr Amer 86 mL/min (>60); Estimated Creatinine Clearance 67.78 ml/min; Globulin 3.3 g/dL (2.2-4.2); Glucose 101 mg/dL (74-106); Lipase 66 U/L (73-393); Potassium 3.6 mmol/L (3.5-5.1); Protein, Total 6.6 g/dL (6.4-8.2); Sodium Level 139 mmol/L (136-145); Total Bilirubin < 0.10 mg/dL (0.20-1.00)
[2021-11-21] MEDS: Dicyclomine 10 MG Capsule PO (16:58)
[2021-11-21 17:03] VITALS: BP 149/107; PULSE 71; RESP 16; O2SAT 100
== END 2021-11-21 17:26 | disposition home or self-care (01) ==
PROVIDERS: Emergency Provider Emergency Medicine; PCP Nurse Practitioner Primary Care; Visit Provider Emergency Medicine
DX: A08.4 Viral intestinal infection, unspecified (principal); F31.9 Bipolar disorder, unspecified; K50.90 Crohn's disease, unspecified, without complications; F17.210 Nicotine dependence, cigarettes, uncomplicated; F41.9 Anxiety disorder, unspecified; E66.9 Obesity, unspecified; Z79.899 Other long term (current) drug therapy
CPT/HCPCS: 74177; 80053; 83690; 84703; 85025; 96361; 96374; 96375; 99284; J7030; Q9967; A4216; J2405

== ENCOUNTER 2022-01-01 08:27 | Emergency (ER) | payer MEDICAID, SELFPAY ==
[2022-01-01 08:28] VITALS: BP 146/104; PULSE 106; RESP 22; TEMP 36.9; O2SAT 100; BMI 34.2
--- NOTE | 2022-01-01 09:12 | EX.ED.DYSGE1 ---
HPI History of Present Illness Chief Complaint: Abd Pain Informant: patient Onset/Context/Timing Onset: Yesterday Context: Gradual Onset Timing: Waxes and wanes Current Severity: Mild Maximum Severity: Moderate Narrative Narrative: Patient present secondary abdominal pain with nausea, vomiting, and diarrhea. Symptoms started yesterday. She reports some chills but no measured fever. No cough or shortness of breath. She denies blood in her vomitus or stool. She denies sick contacts. She does have a history of Crohn's disease. PFSH PFSH Medical History Acute Crohn's disease Anxiety Back problem Bipolar 1 disorder Depression History of blood transfusion Marijuana use Restless legs Smoker Home Medications escitalopram oxalate 20 mg tablet (Lexapro) 20 mg PO DAILY 08/15/21 [History Last Taken Unknown] hydroxyzine pamoate 25 mg capsule 25 mg PO QHS 08/15/21 [History Last Taken Unknown] lamotrigine 100 mg tablet (Lamictal) 200 mg PO DAILY 08/15/21 [History Last Taken Unknown] dicyclomine 10 mg capsule 20 mg PO TID #30 caps 11/21/21 [Rx Last Taken Unknown] ondansetron 4 mg disintegrating tablet 4 mg PO Q6H PRN nausea and vomiting #7 tabs 11/21/21 [Rx Last Taken Unknown] dicyclomine 20 mg tablet 20 mg PO BID PRN abdominal cramping #14 tabs 01/01/22 [Rx Last Taken Unknown] ondansetron 4 mg disintegrating tablet 4 mg PO Q8H PRN nausea and vomiting #10 tabs 01/01/22 [Rx Last Taken Unknown] Allergy/AdvReac Type Severity Reaction Status Date / Time amoxicillin Allergy Rash Verified 01/01/22 08:28 tramadol Allergy Rash Verified 01/01/22 08:28 Family History Mother Mental disorder Surgical History Tubal ligation status Social History Smoking Status: Current every day smoker tobacco type: cigarettes ROS ROS ED Constitutional Constitutional ED: Reports chills; Denies fever(s) Eyes Eyes: Denies change in vision or discharge from eye(s) ENT ENT ED: Denies discharge from eye(s), rhinorrhea or sore throat Cardiovascular Cardiovascular: Denies chest pain or palpitations Respiratory/Chest Respiratory/Chest: Denies cough or dyspnea Gastrointestinal Gastrointestinal: Reports abdominal pain, diarrhea, nausea and vomiting Genitourinary Genitourinary ED: Denies difficulty urinating or dysuria Musculoskeletal Musculoskeletal: Denies back pain or extremity pain Integumentary Denies Abrasions or rash Neurologic Neurologic: Denies headache(s) or weakness Psychiatric Psychiatric: Denies anxiety or depression Allergic/Immunologic Allergic/Immunologic ED: Denies lip swelling or urticaria EXAM Physical Exam Const Vital Signs: 01/01/22 08:28 Temperature 98.4 F Temperature Source Temporal Pulse Rate 106 H Respiratory Rate 22 H Blood Pressure 146/104 H Blood Pressure Mean 118 Pulse Ox 100 Oxygen Delivery Method Room Air Positive well nourished and well developed General Appearance ED: well developed HEENT Reports normocephalic and head/scalp atraumatic Eyes PERRL and EOMs intact bilaterally Neck supple Chest Wall inspection of chest normal and palpation of chest normal Resp normal respiratory effort and clear to auscultation bilaterally Cardio regular rate and regular rhythm GI GI Narrative: No focal abdominal tenderness. Hypoactive bowel sounds noted. Palpation: soft Extremity normal to inspection Neuro oriented x3 and no sensory deficits noted Sensorium / Orientation: alert Motor Exam: strength 5/5 throughout Psych mental status grossly normal Skin no rashes or lesions noted MDM MDM MDM Narrative Medical decision making narrative: Lab work, urinalysis, COVID swab obtained. Patient given Zofran and Toradol along with IV fluids. Lab Data Attestation: I reviewed the patient's lab results. Labs: Laboratory Results - last 24 hr 01/01/22 01/01/22 01/01/22 09:18 09:27 09:27 WBC 6.0 RBC 4.52 Hgb 13.9 Hct 41.2 MCV 91.2 MCH 30.8 MCHC 33.7 RDW Std Deviation 43.7 RDW Coeff of Kim 13.0 Plt Count 385 MPV 9.2 Immature Gran % (Auto) 0.500 Neut % (Auto) 51.3 Lymph % (Auto) 36.4 [place] % (Auto) 9.6 Eos % (Auto) 1.7 Baso % (Auto) 0.5 Absolute Neuts (auto) 3.1 Absolute Lymphs (auto) 2.17 Nucleated RBC % 0 Sodium 137 Potassium 3.8 Chloride 107 Carbon Dioxide 26.0 Anion Gap 4 L BUN 7 Creatinine 0.84 Estim Creat Clear Calc 75.85 Est GFR (MDRD) Af Amer 98 Est GFR (MDRD) Non-Af 81 BUN/Creatinine Ratio 8.3 L Glucose 102 Calcium 9.1 Total Bilirubin 0.30 Direct Bilirubin 0.10 AST 15 ALT 36 Alkaline Phosphatase 70 Total Protein 7.4 Albumin 3.6 Globulin 3.8 Lipase 60 L Urine Color Yellow Urine Clarity Sl. Cloudy Urine pH 6.0 Ur Specific [place] 1.020 Urine Protein Negative Urine Glucose (UA) Normal Urine Ketones 5 H Urine Occult Blood Negative Urine Nitrite Negative Urine Bilirubin Negative Urine Urobilinogen Normal Ur Leukocyte Esterase 25 H Urine RBC 0 SEEN Urine WBC 0-5 SEEN Ur Squamous Epith Cells 5-10 SEEN Urine Bacteria 0 SEEN Urine Mucus 0 SEEN Rapid COVID: Negative Treatment and Re-Evaluation Narrative: On repeat evaluation patient resting comfortably. Test results discussed with her. CBC and chemistry studies unremarkable. LFTs and lipase normal. Urinalysis reveals no infection and only 5 ketones. At this time patient will be given prescription for Zofran and Bentyl at home. She will continue supportive care at home. Return instructions provided. Discharge Plan Triage Chief Complaint: Abd Pain ED Provider: Lissa Mcbride Dx/Rx/DC Orders Clinical Impression: Gastroenteritis Instructions: ED Gastroenteritis, Viral (Adult) Prescriptions: New ondansetron 4 mg tablet,disintegrating 4 mg PO Q8H PRN (Reason: nausea and vomiting) Qty: 10 0RF dicyclomine 20 mg tablet 20 mg PO BID PRN (Reason: abdominal cramping) Qty: 14 0RF No Action hydroxyzine pamoate 25 mg capsule 25 mg PO QHS escitalopram oxalate [Lexapro] 20 mg tablet 20 mg PO DAILY lamotrigine [Lamictal] 100 mg tablet 200 mg PO DAILY ondansetron 4 mg tablet,disintegrating 4 mg PO Q6H PRN (Reason: nausea and vomiting) Qty: 7 0RF dicyclomine 10 mg capsule 20 mg PO TID Qty: 30 0RF Primary Care Provider: Michelle Grimm NP Referrals: Michelle Grimm NP, [employer] [facility]ELDER-[facility] [Primary Care Provider] - 1 Week Disposition Disposition: Home, Self Care
[2022-01-01 09:24] LABS: Bacteria 0 SEEN /hpf (None Seen); Mucous, Urine 0 SEEN /hpf (<or=2+); Red Blood Cells-Urine 0 SEEN /hpf (0-5)
[2022-01-01 09:27] LABS: Color, Urine Yellow (Yellow); Glucose, Dipstick Normal (Normal); Ketone-Dipstick 5 mg/dl (Negative); Leukocyte Esterase-Dipstick 25 /ul (Negative); Nitrite-Dipstick Negative (Negative); Occult Blood-Urine Negative /ul (Negative); Protein-Dipstick Negative (Negative); Urine Bilirubin Dipstick Negative (Negative); Urine Clarity Sl. Cloudy (Clear); Urine Urobilinogen Normal (Normal)
[2022-01-01 09:32] LABS: Absolute Lymphocyte Count 2.17 X10^3/uL (0.83-4.51); Absolute Neutrophil Count 3.1 X10^3/uL (2.0-7.7); Basophil# 0.03 X10^3/uL; Basophil% 0.5 % (0-1); Eosinophils% 1.7 % (0-5); Hematocrit 41.2 % (37-47); Hemoglobin 13.9 g/dL (12.0-15.0); Lymphocyte # 2.17 X10^3/ul (0.83-4.51); Lymphocyte % 36.4 % (19-41); Mean Corp Hgb Conc 33.7 g/dL (32-36); Mean Corpuscular Hgb 30.8 pg (27.0-32.0); Mean Corpuscular Volume 91.2 fL (81-99); Mean Platelet Vol. 9.2 fl (6.2-12.0); Monocyte# 0.57 X10^3/uL; Monocyte% 9.6 % (0-10); NRBC Flagged by Analyzer 0 % (0-5); Neutrophil # 3.06 X10^3/uL (2.7-7.7); Neutrophil % 51.3 % (47-70); Platelet Count 385 K/mm3 (150-450); RBC Distribution Width SD 43.7 fl (35.1-43.9); Red Blood Count 4.52 M/mm3 (4.2-5.4)
[2022-01-01 09:33] LABS: Squamous Epithelial Cells - UA 5-10 SEEN /hpf (5-10); White Blood Cells 0-5 SEEN /hpf (0-5)
[2022-01-01] MEDS: 0.9% Normal Saline 1,000 ML 1000 ML IV (09:37)
[2022-01-01] MEDS: Ketorolac 30 MG/ML Syringe IV (09:37)
[2022-01-01] MEDS: Ondansetron 4 MG/2 ML Vial IV (09:37)
[2022-01-01 09:52] LABS: AST(SGOT) 15 U/L (15-37); Alanine Aminotransfer ALT/SGPT 36 U/L (13-56); Albumin, Serum 3.6 g/dL (3.2-5.0); Alkaline Phosphatase 70 U/L (45-117); Anion Gap 4 (5-15); BUN 7 mg/dL (7-18); BUN/Creat Ratio 8.3 RATIO (10-20); Calcium,Total 9.1 mg/dL (8.5-10.1); Chloride 107 mmol/L (98-107); Creatinine, Serum 0.84 mg/dL (0.55-1.02); EST Glomerular Filtration Rate 81 mL/min (>60); Est Glom Filt Rate - Afr Amer 98 mL/min (>60); Estimated Creatinine Clearance 75.85 ml/min; Globulin 3.8 g/dL (2.2-4.2); Glucose 102 mg/dL (74-106); Lipase 60 U/L (73-393); Potassium 3.8 mmol/L (3.5-5.1); Protein, Total 7.4 g/dL (6.4-8.2); Sodium Level 137 mmol/L (136-145)
[2022-01-01 10:40] VITALS: BP 124/63; PULSE 71; RESP 15; O2SAT 98
== END 2022-01-01 10:43 | disposition home or self-care (01) ==
PROVIDERS: Emergency Provider Emergency Medicine; PCP Nurse Practitioner Primary Care; Visit Provider Emergency Medicine
DX: K52.9 Noninfective gastroenteritis and colitis, unspecified (principal); F31.9 Bipolar disorder, unspecified; F17.210 Nicotine dependence, cigarettes, uncomplicated; Z79.899 Other long term (current) drug therapy
CPT/HCPCS: 80048; 80076; 81001; 83690; 85025; 87811; 96361; 96374; 96375; 99283; J7030; A4216; J2405

== ENCOUNTER 2022-01-24 20:00 | Emergency (ER) | payer MEDICAID, SELFPAY ==
[2022-01-24 20:01] VITALS: BP 161/117; PULSE 93; RESP 18; TEMP 36.9; O2SAT 99; BMI 35.4
--- NOTE | 2022-01-24 21:27 | EKG12_ITS ---
Test Reason : cp Blood Pressure : / mmHG Vent. Rate : 067 BPM Atrial Rate : 067 BPM P-R Int : 158 ms QRS Dur : 084 ms QT Int : 408 ms P-R-T Axes : 042 038 052 degrees QTc Int : 431 ms Normal sinus rhythm Normal ECG Confirmed by TIBURCIO BAY MD ([id number]), editor farm journal YANCY JIMENEZ ([id number]) on 01/26/2022 9:35:23 AM Referred By: Confirmed By:TIBURCIO BAY MD
[2022-01-24 21:34] LABS: Absolute Lymphocyte Count 2.42 X10^3/uL (0.83-4.51); Absolute Neutrophil Count 3.7 X10^3/uL (2.0-7.7); Basophil# 0.04 X10^3/uL; Basophil% 0.6 % (0-1); Eosinophil# 0.08 X10^3/uL; Eosinophils% 1.2 % (0-5); Hematocrit 38.3 % (37-47); Hemoglobin 12.9 g/dL (12.0-15.0); Lymphocyte # 2.42 X10^3/ul (0.83-4.51); Lymphocyte % 35.3 % (19-41); Mean Corp Hgb Conc 33.7 g/dL (32-36); Mean Corpuscular Hgb 30.5 pg (27.0-32.0); Mean Corpuscular Volume 90.5 fL (81-99); Mean Platelet Vol. 8.8 fl (6.2-12.0); Monocyte# 0.55 X10^3/uL; NRBC Flagged by Analyzer 0 % (0-5); Neutrophil # 3.74 X10^3/uL (2.7-7.7); Neutrophil % 54.5 % (47-70); Platelet Count 423 K/mm3 (150-450); RBC Distribution Width CV 12.6 % (11.6-14.6); RBC Distribution Width SD 41.5 fl (35.1-43.9); Red Blood Count 4.23 M/mm3 (4.2-5.4); White Blood Count 6.9 K/mm3 (4.4-11.0)
[2022-01-24 21:42] LABS: Prothrombin Time (Protime)PT. 12.5 SECONDS (11.7-14.9)
[2022-01-24 21:43] LABS: Partial Thromboplast Time 34.1 Seconds (24.1-36.2)
[2022-01-24 21:48] LABS: Anion Gap 8 (5-15); BUN 9 mg/dL (7-18); BUN/Creat Ratio 9.7 RATIO (10-20); Calcium,Total 9.3 mg/dL (8.5-10.1); Chloride 106 mmol/L (98-107); Creatinine, Serum 0.93 mg/dL (0.55-1.02); EST Glomerular Filtration Rate 72 mL/min (>60); Est Glom Filt Rate - Afr Amer 87 mL/min (>60); Estimated Creatinine Clearance 67.85 ml/min; Glucose 93 mg/dL (74-106); Sodium Level 141 mmol/L (136-145)
[2022-01-24 22:27] VITALS: BP 152/105; PULSE 80; RESP 14; O2SAT 98
--- NOTE | 2022-01-24 22:29 | CT_ITS ---
EXAM: CT HEAD WITHOUT INTRAVENOUS CONTRAST CLINICAL INDICATION: headache TECHNIQUE: Multiple axial images were obtained of the head without intravenous contrast. CTDIvol = ( 44.99 ) mGy, DLP = ( 762.36 ) mGycm This CT exam was performed using one or more of the following dose reduction techniques: automated exposure control, adjustment of the mA and/or kV according to patient size, and/or use of iterative reconstruction technique. This report was created using [employer] report generation technology. COMPARISON: None. FINDINGS: BRAIN AND EXTRA-AXIAL SPACES: Unremarkable. No intra- or extra-axial hemorrhage. No evidence of acute infarct. No intracranial mass or mass effect. There is preservation of the simmons/white matter interface. Posterior fossa structures are unremarkable. Ventricles are appropriate for age. No hydrocephalus. Basal cisterns are patent. BONES/JOINTS: Unremarkable. No discrete lytic or blastic abnormalities. SINUSES: Unremarkable as visualized. Clear. MASTOID AIR CELLS: Unremarkable. Clear. ORBITS: Visualized globes, extraocular muscles, optic nerves and retrobulbar fat appear unremarkable. CT/Brain/Head without Contrast IMPRESSION: Negative head/brain CT without intravenous contrast. Electronically Signed: Lul Nelson MD at 23:02 EDT ,
[2022-01-24] MEDS: 0.9% Normal Saline 1,000 ML 999 ML IV (22:33)
[2022-01-24] MEDS: Metoclopramide 10 MG/2 ML Vial IV (22:37)
[2022-01-24] MEDS: Ketorolac 30 MG/ML Syringe IV (22:37)
[2022-01-24] MEDS: DiphenhydrAMINE 50 MG/ML Syringe IV (22:37)
--- NOTE | 2022-01-24 23:23 | EDS_ITS ---
HPI History of Present Illness Chief Complaint: Hypertension Narrative Narrative: Patient is a 37-year-old female with past medical history of of gestational hypertension and Crohn's disease. She states she was on medication while she was and for a few years after but has not been on medications now for multiple years. She states that today she noticed she had a headache and after this checked her blood pressure and it was elevated. She states that she went to an urgent care where they advised her to go to the hospital because of her symptoms and hypertension. The patient states that there has been no excessive stimulant use or illicit drug use. She states there was no trauma prior to the headache beginning. She denies any chest pain or shortness of breath associated with this. However based on her headache and hypertension she presents for evaluation [facility] Medical History Acute Crohn's disease Anxiety Back problem Bipolar 1 disorder Depression History of blood transfusion Marijuana use Restless legs Smoker Home Medications escitalopram oxalate 20 mg tablet (Lexapro) 20 mg PO DAILY 08/15/21 [History Last Taken Unknown] hydroxyzine pamoate 25 mg capsule 25 mg PO QHS 08/15/21 [History Last Taken Unknown] lamotrigine 100 mg tablet (Lamictal) 200 mg PO DAILY 08/15/21 [History Last Taken Unknown] dicyclomine 10 mg capsule 20 mg PO TID #30 caps 11/21/21 [Rx Last Taken Unknown] ondansetron 4 mg disintegrating tablet 4 mg PO Q6H PRN nausea and vomiting #7 tabs 11/21/21 [Rx Last Taken Unknown] Allergy/AdvReac Type Severity Reaction Status Date / Time amoxicillin Allergy Rash Verified 01/24/22 20:03 tramadol Allergy Rash Verified 01/24/22 20:03 Family History Mother Mental disorder Surgical History Tubal ligation status Social History Smoking Status: Current every day smoker tobacco type: cigarettes ROS ROS ED Constitutional Constitutional ED: Denies chills or fever(s) Eyes Eyes: Denies change in vision ENT ENT ED: Denies sore throat Cardiovascular Cardiovascular: Denies chest pain Respiratory/Chest Respiratory/Chest: Denies cough or dyspnea Gastrointestinal Gastrointestinal: Denies abdominal pain, diarrhea, nausea or vomiting Genitourinary Genitourinary ED: Denies dysuria Musculoskeletal Musculoskeletal: Denies myalgias Integumentary Denies rash Neurologic Neurologic: Reports headache(s); Denies weakness Psychiatric Psychiatric: Reports anxiety Hematologic/Lymphatic Hematologic/Lymphatic: Denies easy bleeding or easy bruising EXAM Physical Exam Const Vital Signs: 01/24/22 20:01 01/24/22 22:27 01/24/22 22:27 Temperature 98.4 F Temperature Source Temporal Pulse Rate 93 80 Respiratory Rate 18 14 Respiratory Effort Respiratory Pattern Blood Pressure 161/117 H 152/105 H Blood Pressure Mean 131 120 Pulse Ox 99 98 Oxygen Delivery Method Room Air Room Air Room Air 01/24/22 22:27 01/24/22 23:40 Temperature Temperature Source Pulse Rate 85 Respiratory Rate 19 H Respiratory Effort Normal Respiratory Pattern Normal Blood Pressure 130/90 H Blood Pressure Mean Pulse Ox 98 Oxygen Delivery Method Positive well nourished and well developed General Appearance ED: well developed HEENT Reports moist mucous membranes Eyes PERRL and EOMs intact bilaterally Neck supple Neck Narrative: No meningeal signs Resp normal respiratory effort and clear to auscultation bilaterally Cardio regular rate and regular rhythm Rate: other Other Details: Radial pulses are plus 2 out of 4 bilaterally are equal and symmetric GI normal to inspection, nondistended, normoactive bowel sounds, non-tender and non-distended GI Narrative: No voluntary guarding or rigidity no pulsatile mass Auscultation: normoactive bowel sounds Palpation: soft Extremity normal to inspection Neuro oriented x3, CN's II-XII intact bilaterally and no sensory deficits noted Neuro Narrative: Cranial nerves II through XII are grossly intact there are no focal neurologic deficit. No pronator drift no dysmetria no truncal ataxia. NIH stroke scale score of 0 Sensorium / Orientation: alert Psych mental status grossly normal Skin no rashes or lesions noted MDM MDM MDM Narrative Medical decision making narrative: Patient presented to the ER hypertensive but otherwise with normal neurologic exam indicating no signs of hypertensive encephalopathy with endorgan. Secondary to her complaint of hypertension with headache I did elect to perform basic laboratory studies with head CT. Labs revealed no clinically significant findings and head CT revealed no acute brain issue/bleeds. As the patient rep orted having a headache I did elect to start with treatment with Toradol Benadryl Reglan and fluids. On reevaluation she reports resolution of the headache. Moreover with treatment of the headache her blood pressure has reduced. As she has no signs of endorgan damage or altered mental status she is otherwise safe for discharge Lab Data Attestation: I reviewed the patient's lab results. Labs: Laboratory Results - last 24 hr 01/24/22 01/24/22 01/24/22 21:20 21:20 21:20 WBC 6.9 RBC 4.23 Hgb 12.9 Hct 38.3 MCV 90.5 MCH 30.5 MCHC 33.7 RDW Std Deviation 41.5 RDW Coeff of Kim 12.6 Plt Count 423 MPV 8.8 Immature Gran % (Auto) 0.400 Neut % (Auto) 54.5 Lymph % (Auto) 35.3 [place] % (Auto) 8.0 Eos % (Auto) 1.2 Baso % (Auto) 0.6 Absolute Neuts (auto) 3.7 Absolute Lymphs (auto) 2.42 Nucleated RBC % 0 PT 12.5 INR 1.0 APTT 34.1 Sodium 141 Potassium 4.0 Chloride 106 Carbon Dioxide 27.0 Anion Gap 8 BUN 9 Creatinine 0.93 Estim Creat Clear Calc 67.85 Est GFR (MDRD) Af Amer 87 Est GFR (MDRD) Non-Af 72 BUN/Creatinine Ratio 9.7 L Glucose 93 Calcium 9.3 Radiography Diagnostic Testing: Clinical Impression(s) from Imaging Studies Brain CT 01/24/22 22:29 IMPRESSION: Negative head/brain CT without intravenous contrast. Electronically Signed: Lul Nelson MD at 23:02 EDT , Discharge Plan Triage Chief Complaint: Hypertension ED Provider: Lul Lee Dx/Rx/DC Orders Clinical Impression: Hypertension, Cephalgia, Hx of bipolar disorder Instructions: ED Headache, Tension, ED Hypertension, To Be Confirmed Prescriptions: No Action hydroxyzine pamoate 25 mg capsule 25 mg PO QHS escitalopram oxalate [Lexapro] 20 mg tablet 20 mg PO DAILY lamotrigine [Lamictal] 100 mg tablet 200 mg PO DAILY ondansetron 4 mg tablet,disintegrating 4 mg PO Q6H PRN (Reason: nausea and vomiting) Qty: 7 0RF dicyclomine 10 mg capsule 20 mg PO TID Qty: 30 0RF Primary Care Provider: Michelle Grimm NP Referrals: Michelle Grimm NP, TRAVELING NURSE-C [Primary Care Provider] - Activity Restrictions/Additional Instructions: Please continue to monitor your blood pressure because if remains high you may need to be started on medication. Please return to the ER should you have any further concerns Disposition Disposition: Home, Self Care Discharge Date/Time: 01/24/22 23:41
[2022-01-24 23:40] VITALS: BP 130/90; PULSE 85; RESP 19; O2SAT 98
== END 2022-01-24 23:41 | disposition home or self-care (01) ==
PROVIDERS: Emergency Provider Emergency Medicine; PCP Nurse Practitioner Primary Care; Visit Provider Emergency Medicine
DX: I10 Essential (primary) hypertension (principal); F31.9 Bipolar disorder, unspecified; K50.90 Crohn's disease, unspecified, without complications; R51.9 Headache, unspecified; F17.210 Nicotine dependence, cigarettes, uncomplicated; Z79.899 Other long term (current) drug therapy
CPT/HCPCS: 70450; 80048; 85025; 85610; 85730; 93005; 96361; 96374; 96375; 99283; J7030

== ENCOUNTER → 2022-02-07 | Outpatient (CLI) | payer MEDICAID, SELFPAY ==
[2022-02-07 16:26] LABS: Absolute Neutrophil Count 3.2 X10^3/uL (2.0-7.7); Basophil# 0.03 X10^3/uL; Basophil% 0.4 % (0-1); Eosinophil# 0.12 X10^3/uL; Eosinophils% 1.8 % (0-5); Hematocrit 40.8 % (37-47); Hemoglobin 13.8 g/dL (12.0-15.0); Lymphocyte % 41.9 % (19-41); Mean Corp Hgb Conc 33.8 g/dL (32-36); Mean Corpuscular Hgb 30.1 pg (27.0-32.0); Mean Corpuscular Volume 88.9 fL (81-99); Mean Platelet Vol. 9.2 fl (6.2-12.0); Monocyte# 0.54 X10^3/uL; Monocyte% 8.1 % (0-10); NRBC Flagged by Analyzer 0 % (0-5); Neutrophil # 3.17 X10^3/uL (2.7-7.7); Neutrophil % 47.5 % (47-70); Platelet Count 457 K/mm3 (150-450); RBC Distribution Width CV 12.7 % (11.6-14.6); RBC Distribution Width SD 41.6 fl (35.1-43.9); Red Blood Count 4.59 M/mm3 (4.2-5.4); White Blood Count 6.7 K/mm3 (4.4-11.0)
[2022-02-07 16:52] LABS: AST(SGOT) 14 U/L (15-37); Alanine Aminotransfer ALT/SGPT 26 U/L (13-56); Albumin, Serum 4.2 g/dL (3.2-5.0); Alkaline Phosphatase 75 U/L (45-117); Anion Gap 8 (5-15); BUN 11 mg/dL (7-18); BUN/Creat Ratio 11.3 RATIO (10-20); Calcium,Total 9.5 mg/dL (8.5-10.1); Chloride 109 mmol/L (98-107); Creatinine, Serum 0.97 mg/dL (0.55-1.02); EST Glomerular Filtration Rate 68 mL/min (>60); Est Glom Filt Rate - Afr Amer 83 mL/min (>60); Globulin 4.1 g/dL (2.2-4.2); Glucose 91 mg/dL (74-106); Potassium 3.7 mmol/L (3.5-5.1); Protein, Total 8.3 g/dL (6.4-8.2); Sodium Level 140 mmol/L (136-145)
[2022-02-11 13:07] LABS: Anti-Centromere B Ab <0.2 AI (0.0-0.9); Anti-Chromatin <0.2 AI (0.0-0.9); Anti-Jo <0.2 AI (0.0-0.9); Anti-Scleroderma-70 AB <0.2 AI (0.0-0.9); RNP Ab 0.5 AI (0.0-0.9); SJOGREN'S Anti-SS-A test < 0.2 AI (0.0-0.9); SJOGREN'S Anti-SS-B test < 0.2 AI (0.0-0.9); Smith Ab <0.2 AI (0.0-0.9)
[2022-02-11 14:46] LABS: Anti-dsDNA Ab 1 IU/mL (0-9)
[2022-02-14 17:07] LABS: Cytoplasmic Ab (C-ANCA) <1:20 titer (Neg:<1:20)
[2022-02-15 09:09] LABS: Albumin 3.9 g/dL (2.9-4.4); Alpha-1-Globulins 0.3 g/dL (0.0-0.4); Alpha-2-Globulins 1.1 g/dL (0.4-1.0); Gamma Globulin 0.9 g/dL (0.4-1.8); Immunoglobulin A 139 mg/dL (87-352); Immunoglobulin G 1056 mg/dL (586-1602); Immunoglobulin M 91 mg/dL (26-217); PROEL- TOTAL PROTEIN 7.4 g/dL (6.0-8.5)
[2022-02-15 12:06] LABS: Immunoglobulin E 7 IU/mL (6-495)
[2022-02-15 15:27] LABS: Perinuclear Ab (P-ANCA) <1:20 titer (Neg:<1:20)
== END | disposition home or self-care (01) ==
PROVIDERS: PCP Nurse Practitioner Primary Care; Referring Provider Internal Medicine Gastroenterology; Visit Provider Internal Medicine Gastroenterology
DX: K50.90 Crohn's disease, unspecified, without complications (principal)
CPT/HCPCS: 36415; 80053; 82784; 82785; 83516; 84165; 85025; 85305; 85306; 86225; 86235; 86255; 86256; 86334

== ENCOUNTER → 2022-02-11 | Outpatient (CLI) | payer MEDICAID, SELFPAY ==
[2022-02-15 15:32] LABS: Pancreatic Elastase, Fecal > 500 (>200)
[2022-03-01 09:51] LABS: Calprotectin, Stool 74 ug/g (0-120); Fats, Neutral Normal (.); Fats, Total Normal (.)
== END | disposition home or self-care (01) ==
LOC: LABSPEC 08:40
PROVIDERS: PCP Nurse Practitioner Primary Care; Visit Provider Internal Medicine Gastroenterology
DX: K50.90 Crohn's disease, unspecified, without complications (principal)
CPT/HCPCS: 82653; 82705; 83630; 83993; 87493; 87506

== ENCOUNTER 2022-02-19 16:43 | Emergency (ER) | payer MEDICAID, SELFPAY ==
[2022-02-19 16:44] VITALS: BP 143/105; PULSE 93; RESP 15; TEMP 36.5; O2SAT 96; BMI 34.5
[2022-02-19 17:21] LABS: Absolute Lymphocyte Count 2.76 X10^3/uL (0.83-4.51); Absolute Neutrophil Count 2.9 X10^3/uL (2.0-7.7); Basophil# 0.04 X10^3/uL; Basophil% 0.6 % (0-1); Eosinophils% 1.6 % (0-5); Hematocrit 38.7 % (37-47); Hemoglobin 13.5 g/dL (12.0-15.0); Lymphocyte # 2.76 X10^3/ul (0.83-4.51); Lymphocyte % 44.1 % (19-41); Mean Corp Hgb Conc 34.9 g/dL (32-36); Mean Corpuscular Hgb 31.3 pg (27.0-32.0); Mean Corpuscular Volume 89.8 fL (81-99); Mean Platelet Vol. 8.8 fl (6.2-12.0); Monocyte# 0.46 X10^3/uL; Monocyte% 7.3 % (0-10); NRBC Flagged by Analyzer 0 % (0-5); Neutrophil # 2.89 X10^3/uL (2.7-7.7); Neutrophil % 46.2 % (47-70); Platelet Count 407 K/mm3 (150-450); RBC Distribution Width CV 12.4 % (11.6-14.6); RBC Distribution Width SD 41.2 fl (35.1-43.9); Red Blood Count 4.31 M/mm3 (4.2-5.4); White Blood Count 6.3 K/mm3 (4.4-11.0)
[2022-02-19 17:31] LABS: Internal QC Validated? YES +Cl - CLEAR BKGD; Pregnancy, Serum, hCG Quali. NEGATIVE Negative
[2022-02-19 17:34] LABS: Anion Gap 8 (5-15); BUN 6 mg/dL (7-18); BUN/Creat Ratio 6.4 RATIO (10-20); Calcium,Total 9.2 mg/dL (8.5-10.1); Chloride 109 mmol/L (98-107); Creatinine, Serum 0.94 mg/dL (0.55-1.02); EST Glomerular Filtration Rate 71 mL/min (>60); Est Glom Filt Rate - Afr Amer 86 mL/min (>60); Estimated Creatinine Clearance 67.13 ml/min; Glucose 93 mg/dL (74-106); Potassium 3.4 mmol/L (3.5-5.1); Sodium Level 139 mmol/L (136-145)
--- NOTE | 2022-02-19 17:37 | EX.ED.DYSGE1 ---
HPI History of Present Illness Chief Complaint: Abd Pain Detail of Chief Complaint: Left lower/inguinal pain Informant: patient Onset/Context/Timing Onset: Hours Context: Sudden Onset Timing: Continuous Quality: Pain Location: Left inguinal region Current Severity: Moderate Maximum Severity: Severe Worsened by: Walking Relieved by: Nothing Associated Symptoms Associated Symptoms: Frequency Narrative Narrative: Patient is a 37-year-old patient is a 37-year-old Ab0 female who presents with left inguinal/left lower quadrant Aris pain. She has history of Crohn's disease. She denies constipation or diarrhea. She denies blood in her stool or mucus in her stool. She denies black or maroon-colored stool. She does report frequency. She denies dysuria or hematuria. She denies history of renal ureterolithiasis. She states she was lying when the pain started. The pain has been constant. The pain does not radiate. She has not experienced pain like this when she has had a Crohn's flare. Prior similar symptoms: No Recent Illness/Hospitalization: No PFSH PFSH Medical History Acute Crohn's disease Anxiety Back problem Bipolar 1 disorder Depression History of blood transfusion Marijuana use Restless legs Smoker Home Medications escitalopram oxalate 20 mg tablet (Lexapro) 20 mg PO DAILY 08/15/21 [History Last Taken Unknown] hydroxyzine pamoate 25 mg capsule 25 mg PO QHS 08/15/21 [History Last Taken Unknown] lamotrigine 100 mg tablet (Lamictal) 200 mg PO DAILY 08/15/21 [History Last Taken Unknown] dicyclomine 10 mg capsule 20 mg PO TID #30 caps 11/21/21 [Rx Last Taken Unknown] ondansetron 4 mg disintegrating tablet 4 mg PO Q6H PRN nausea and vomiting #7 tabs 11/21/21 [Rx Last Taken Unknown] hydrocodone-acetaminophen 5-325mg 5mg-325mg 1 tab PO Q6H PRN PRN Pain 3 days #10 TABLETS 02/19/22 [Rx Last Taken Unknown] nitrofurantoin monohydrate/macrocrystals 100 mg capsule 100 mg PO Q12 #10 CAPSULES 02/19/22 [Rx Last Taken Unknown] Allergy/AdvReac Type Severity Reaction Status Date / Time amoxicillin Allergy Rash Verified 02/19/22 16:44 tramadol Allergy Rash Verified 02/19/22 16:44 Family History Mother Mental disorder Surgical History Tubal ligation status Social History (Updated 02/19/22 @ 17:[address] Garret Kaiser MD) household members: children Smoking Status: Current every day smoker tobacco type: cigarettes substance use type: does not use ROS ROS ED Constitutional Constitutional ED: Denies chills, fever(s), subjective, sweats or weight loss Eyes Eyes: Denies blurry vision, change in vision or diplopia ENT ENT ED: Denies ear pain, rhinorrhea or sore throat Cardiovascular Cardiovascular: Denies chest pain, orthopnea, palpitations, paroxysmal nocturnal dyspnea or racing heartbeat Respiratory/Chest Respiratory/Chest: Denies cough, dyspnea, dyspnea on exertion, orthopnea or paroxysmal nocturnal dyspnea Gastrointestinal Gastrointestinal: Reports abdominal pain; Denies constipation, diarrhea, melena, nausea or vomiting Genitourinary Genitourinary ED: Reports urinary frequency; Denies dysuria or hematuria Musculoskeletal Musculoskeletal: Denies arthralgias, back pain, myalgias or neck pain Integumentary Denies Abrasions or rash Psychiatric Psychiatric: Denies anxiety or depression Hematologic/Lymphatic Hematologic/Lymphatic: Reports systems reviewed and no addt'l complaints, except as documented and none EXAM Physical Exam Const Vital Signs: 02/19/22 16:44 Temperature 97.7 F L Temperature Source Temporal Pulse Rate 93 Respiratory Rate 15 Blood Pressure 143/105 H Blood Pressure Mean 117 Pulse Ox 96 Oxygen Delivery Method Room Air Positive well nourished, well developed and obese; Negative for cachectic, contractures or unkempt Constitutional Narrative: Patient appears in discomfort. General Appearance ED: well developed; Negative for unkempt, cachectic, contractures, cyanotic, diaphoretic, NAD or pallor Nutritional Appearance: obese; Negative for cachectic HEENT Reports moist mucous membranes HEENT Narrative: Head is atraumatic normocephalic. Ears normal. Nares patent. Uvula midline. No deviation with protrusion. Posterior pharynx unremarkable. Eyes PERRL and EOMs intact bilaterally Neck no lymphadenopathy, supple and no JVD Resp normal respiratory effort and clear to auscultation bilaterally Cardio regular rate, regular rhythm, S1 normal heart sound, S2 normal heart sound and no murmurs GI no masses; Negative for normal to inspection, nondistended, normoactive bowel sounds, non-tender, non-distended or hepatosplenomegaly Inspection: abdominal distention Auscultation: hypoactive bowel sounds Palpation: tender LLQ and guarding LLQ; Negative for splenomegaly, mass or rebound tenderness present Narrative: There is no suprapubic discomfort. There is no CVA tenderness noted. Back/Spine no CVA tenderness Extremity normal to inspection General Extremety ED: Yes edema General Extremity: edema Neuro CN's II-XII intact bilaterally and no sensory deficits noted Sensorium / Orientation: alert Psych mental status grossly normal Appearance: Negative for unkempt Skin no rashes or lesions noted and no wounds General Skin Exam: elasticity normal; Negative for jaundice or pallor MDM MDM MDM Narrative Medical decision making narrative: With left inguinal adnexal pain and no evidence of inguinal lymphadenopathy or inguinal hernia need to evaluate for ectopic , ovarian cyst, PID, exacerbation of Crohn's, torsion and ureterolithiasis. Nursing orders were initiated. Patient was medicated with IV Toradol, morphine and Zofran since her test returned the time that I saw patient. Lab Data Attestation: I reviewed the patient's lab results. Lab results narrative: Patient is allergic to amoxicillin. She denies allergy to Bactrim. She denies allergy to Macrobid. We will treat with Macrobid. She received her first dose in the emergency department. She was discharged with prescription for Macrobid and pain medicine. Take that back Labs: Laboratory Results - last 24 hr 02/19/22 02/19/22 02/19/22 17:10 17:10 17:10 WBC 6.3 RBC 4.31 Hgb 13.5 Hct 38.7 MCV 89.8 MCH 31.3 MCHC 34.9 RDW Std Deviation 41.2 RDW Coeff of Kim 12.4 Plt Count 407 MPV 8.8 Immature Gran % (Auto) 0.200 Neut % (Auto) 46.2 L Lymph % (Auto) 44.1 H [place] % (Auto) 7.3 Eos % (Auto) 1.6 Baso % (Auto) 0.6 Absolute Neuts (auto) 2.9 Absolute Lymphs (auto) 2.76 Nucleated RBC % 0 Sodium 139 Potassium 3.4 L Chloride 109 H Carbon Dioxide 22.0 Anion Gap 8 BUN 6 L Creatinine 0.94 Estim Creat Clear Calc 67.13 Est GFR (MDRD) Af Amer 86 Est GFR (MDRD) Non-Af 71 BUN/Creatinine Ratio 6.4 L Glucose 93 Calcium 9.2 Serum , Qual NEGATIVE Urine Color Urine Clarity Urine pH Ur Specific [place] Urine Protein Urine Glucose (UA) Urine Ketones Urine Occult Blood Urine Nitrite Urine Bilirubin Urine Urobilinogen Ur Leukocyte Esterase Urine RBC Urine WBC Ur Squamous Epith Cells Urine Bacteria Urine Mucus 02/19/22 18:17 WBC RBC Hgb Hct MCV MCH MCHC RDW Std Deviation RDW Coeff of Kim Plt Count MPV Immature Gran % (Auto) Neut % (Auto) Lymph % (Auto) [place] % (Auto) Eos % (Auto) Baso % (Auto) Absolute Neuts (auto) Absolute Lymphs (auto) Nucleated RBC % Sodium Potassium Chloride Carbon Dioxide Anion Gap BUN Creatinine Estim Creat Clear Calc Est GFR (MDRD) Af Amer Est GFR (MDRD) Non-Af BUN/Creatinine Ratio Glucose Calcium Serum , Qual Urine Color Yellow Urine Clarity Clear Urine pH 6.0 Ur Specific [place] 1.025 Urine Protein 30 H Urine Glucose (UA) Normal Urine Ketones 5 H Urine Occult Blood Negative Urine Nitrite Negative Urine Bilirubin Negative Urine Urobilinogen 1 H Ur Leukocyte Esterase 25 H Urine RBC 0 SEEN Urine WBC 0-5 SEEN Ur Squamous Epith Cells 5-10 SEEN Urine Bacteria 3+ Urine Mucus 4+ Discharge Plan Triage Chief Complaint: Abd Pain ED Provider: Garret Kaiser Dx/Rx/DC Orders Clinical Impression: Cystitis, Bilateral lower abdominal pain, Hx of Crohn's disease Instructions: ED Cystitis Female Adult Prescriptions: New hydrocodone-acetaminophen [hydrocodone-acetaminophen] 5-325 mg tablet 1 tab PO Q6H PRN PRN (Reason: Pain) 3 Days Qty: 10 0RF nitrofurantoin monohyd/m-cryst [nitrofurantoin monohyd/m-cryst] 100 mg capsule 100 mg PO Q12 Qty: 10 0RF No Action hydroxyzine pamoate 25 mg capsule 25 mg PO QHS escitalopram oxalate [Lexapro] 20 mg tablet 20 mg PO DAILY lamotrigine [Lamictal] 100 mg tablet 200 mg PO DAILY ondansetron 4 mg tablet,disintegrating 4 mg PO Q6H PRN (Reason: nausea and vomiting) Qty: 7 0RF dicyclomine 10 mg capsule 20 mg PO TID Qty: 30 0RF Primary Care Provider: Michelle Grimm NP Referrals: Michelle Grimm NP, HUMAN RESOURCES CONSULTANT-C [Primary Care Provider] - Disposition Disposition: Home, Self Care
[2022-02-19] MEDS: Ketorolac 15 MG/ML Vial IV (17:47)
[2022-02-19] MEDS: Ondansetron 4 MG/2 ML Vial IV (17:47)
[2022-02-19] MEDS: Morphine 4 MG/ML Syringe IV (17:48)
[2022-02-19 18:31] LABS: Red Blood Cells-Urine 0 SEEN /hpf (0-5)
[2022-02-19 18:44] LABS: Color, Urine Yellow (Yellow); Glucose, Dipstick Normal (Normal); Ketone-Dipstick 5 mg/dl (Negative); Leukocyte Esterase-Dipstick 25 /ul (Negative); Nitrite-Dipstick Negative (Negative); Occult Blood-Urine Negative /ul (Negative); Protein-Dipstick 30 mg/dl (Negative); Specific Gravity, Urine 1.025 (1.002-1.030); Urine Bilirubin Dipstick Negative (Negative); Urine Clarity Clear (Clear); Urine Urobilinogen 1 mg/dl (Normal)
[2022-02-19 18:49] LABS: Bacteria 3+ /hpf (None Seen); Mucous, Urine 4+ /hpf (<or=2+); Squamous Epithelial Cells - UA 5-10 SEEN /hpf (5-10); White Blood Cells 0-5 SEEN /hpf (0-5)
[2022-02-19 21:16] VITALS: BP 142/101; PULSE 64; RESP 16; O2SAT 98
[2022-02-19] MEDS: Nitrofurantoin Macrocrystals 100 MG Capsule PO (21:17)
[2022-02-19] MEDS: HYDROcodone Bitartrate/Apap 5/325 Tablet PO (21:17)
== END 2022-02-19 21:24 | disposition home or self-care (01) ==
PROVIDERS: Emergency Provider Emergency Medicine; PCP Nurse Practitioner Primary Care; Visit Provider Emergency Medicine
DX: N30.90 Cystitis, unspecified without hematuria (principal); K50.90 Crohn's disease, unspecified, without complications; F17.210 Nicotine dependence, cigarettes, uncomplicated; E66.9 Obesity, unspecified; Z79.899 Other long term (current) drug therapy
CPT/HCPCS: 80048; 81001; 84703; 85025; 96374; 96375; 99284; J7030; J2405

== ENCOUNTER 2022-04-10 16:02 | Emergency (ER) | payer MEDICAID, SELFPAY ==
[2022-04-10 16:02] VITALS: BP 135/100; PULSE 82; RESP 18; TEMP 36.6; O2SAT 100; BMI 31.8
[2022-04-10 16:49] LABS: Mucous, Urine 0 SEEN /hpf (<or=2+)
[2022-04-10 16:52] LABS: Color, Urine Yellow (Yellow); Glucose, Dipstick Normal (Normal); Ketone-Dipstick 50 mg/dl (Negative); Leukocyte Esterase-Dipstick 100 /ul (Negative); Nitrite-Dipstick Negative (Negative); Occult Blood-Urine 250 /ul (Negative); Protein-Dipstick 30 mg/dl (Negative); Urine Bilirubin Dipstick Negative (Negative); Urine Clarity Clear (Clear); Urine Urobilinogen Normal (Normal)
[2022-04-10 16:53] LABS: Absolute Lymphocyte Count 2.58 X10^3/uL (0.83-4.51); Absolute Neutrophil Count 3.1 X10^3/uL (2.0-7.7); Basophil# 0.04 X10^3/uL; Basophil% 0.6 % (0-1); Eosinophil# 0.07 X10^3/uL; Eosinophils% 1.1 % (0-5); Hematocrit 35.7 % (37-47); Lymphocyte # 2.58 X10^3/ul (0.83-4.51); Lymphocyte % 41.7 % (19-41); Mean Corp Hgb Conc 33.6 g/dL (32-36); Mean Corpuscular Hgb 30.4 pg (27.0-32.0); Mean Corpuscular Volume 90.4 fL (81-99); Mean Platelet Vol. 9.2 fl (6.2-12.0); Monocyte# 0.41 X10^3/uL; Monocyte% 6.6 % (0-10); NRBC Flagged by Analyzer 0 % (0-5); Neutrophil # 3.08 X10^3/uL (2.7-7.7); Neutrophil % 49.8 % (47-70); Platelet Count 417 K/mm3 (150-450); RBC Distribution Width CV 12.8 % (11.6-14.6); Red Blood Count 3.95 M/mm3 (4.2-5.4); White Blood Count 6.2 K/mm3 (4.4-11.0)
[2022-04-10 17:01] LABS: Squamous Epithelial Cells - UA 0-5 SEEN /hpf (5-10); White Blood Cells 0-5 SEEN /hpf (0-5)
[2022-04-10 17:02] LABS: Bacteria RARE /hpf (None Seen); Red Blood Cells-Urine 0-5 SEEN /hpf (0-5)
[2022-04-10 17:06] LABS: Anion Gap 7 (5-15); BUN 10 mg/dL (7-18); BUN/Creat Ratio 11.5 RATIO (10-20); Calcium,Total 9.2 mg/dL (8.5-10.1); Chloride 111 mmol/L (98-107); Creatinine, Serum 0.87 mg/dL (0.55-1.02); EST Glomerular Filtration Rate 77 mL/min (>60); Est Glom Filt Rate - Afr Amer 93 mL/min (>60); Estimated Creatinine Clearance 72.53 ml/min; Glucose 82 mg/dL (74-106); Potassium 3.5 mmol/L (3.5-5.1); Sodium Level 143 mmol/L (136-145)
--- NOTE | 2022-04-10 18:15 | EDS_ITS ---
HPI History of Present Illness Chief Complaint: Nausea/Vomiting/Diarrhea Narrative Narrative: Patient presents with abdominal cramping, nausea vomiting and 5-6 episodes of watery diarrhea since this morning. No fevers or chills, no urinary symptoms. She is denying . She has a history of Crohn's and she has no sick contacts. No back pain or flank pain. No recent antibiotics. No recent travel history PFSH PFSH Medical History Acute Crohn's disease Anxiety Back problem Bipolar 1 disorder Depression History of blood transfusion Marijuana use Restless legs Smoker Home Medications escitalopram oxalate 20 mg tablet (Lexapro) 20 mg PO DAILY 08/15/21 [History Last Taken Unknown] hydroxyzine pamoate 25 mg capsule 25 mg PO QHS 08/15/21 [History Last Taken Unknown] lamotrigine 100 mg tablet (Lamictal) 200 mg PO DAILY 08/15/21 [History Last Taken Unknown] dicyclomine 10 mg capsule 20 mg PO TID #30 caps 11/21/21 [Rx Last Taken Unknown] ondansetron 4 mg disintegrating tablet 4 mg PO Q6H PRN nausea and vomiting #7 tabs 11/21/21 [Rx Last Taken Unknown] hydrocodone-acetaminophen 5-325mg 5mg-325mg 1 tab PO Q6H PRN PRN Pain 3 days #10 TABLETS 02/19/22 [Rx Last Taken Unknown] nitrofurantoin monohydrate/macrocrystals 100 mg capsule 100 mg PO Q12 #10 CAPSULES 02/19/22 [Rx Last Taken Unknown] dicyclomine 20 mg tablet 20 mg PO TID #20 tabs 04/10/22 [Rx Last Taken Unknown] ondansetron 4 mg disintegrating tablet 4 mg PO Q8H #10 tabs 04/10/22 [Rx Last Taken Unknown] Allergy/AdvReac Type Severity Reaction Status Date / Time amoxicillin Allergy Rash Verified 04/10/22 16:02 tramadol Allergy Rash Verified 04/10/22 16:02 Family History Mother Mental disorder Surgical History Tubal ligation status Social History household members: children Smoking Status: Current every day smoker tobacco type: cigarettes substance use type: does not use ROS ROS ED ROS Narrative Past medical history: Reviewed, includes Crohn's, history of abdominal pain, history of cannabis hyperemesis syndrome Medications: Reviewed Social history: Noncontributory Review of systems: All systems negative except as indicated General: No fever Eyes: No visual changes ENT: No upper airway congestion, normal voice Neck: No neck pain Cardiovascular: No chest pain Respiratory: No shortness of breath or cough Gastrointestinal: As in HPI Genitourinary: No dysuria Musculoskeletal: Denies myalgias no difficulty with ambulation Skin: No rash Neurological: No memory loss, confusion or any focal weakness Psych: No recent behavioral changes Hematologic: No easy bleeding or easy bruising EXAM Physical Exam Narrative Exam Narrative: Physical exam General: Patient appears uncomfortable Head: Normocephalic, Atraumatic Eyes: Conjunctiva not pale ENT: Moist mucous membranes Neck: Supple, Nontender, No lymphadenopathy Cardiovascular: Regular rate, Regular rhythm Respiratory: No distress, CTA bilaterally Abdomen: Soft, mild tenderness throughout, very benign abdominal exam. Back: Nontender, Normal Inspection. Negative for: CVA tenderness Extremities: Nontender, No edema Skin: Normal color, No rash Neurological: Alert, Normal Strength, Normal Sensation Psychological: Normal affect Const Vital Signs: 04/10/22 16:02 Temperature 97.8 F Temperature Source Temporal Pulse Rate 82 Respiratory Rate 18 Blood Pressure 135/100 H Blood Pressure Mean 111 Pulse Ox 100 Oxygen Delivery Method Room Air MDM MDM MDM Narrative Medical decision making narrative: Patient's work-up is unremarkable she did improve. At this time she does not have any leukocytosis or any other signs or symptoms of infection I do not believe she needs imaging. She could have a slight Crohn's exacerbation. There is some evidence of dehydration and I hydrated her up, she does have leuk esterases but otherwise normal WBCs RBCs and only rare bacteria I will culture the urine. Lab Data Labs: Laboratory Results - last 24 hr 04/10/22 04/10/22 04/10/22 16:32 16:32 16:41 WBC 6.2 RBC 3.95 L Hgb 12.0 Hct 35.7 L MCV 90.4 MCH 30.4 MCHC 33.6 RDW Std Deviation 42.0 RDW Coeff of Kim 12.8 Plt Count 417 MPV 9.2 Immature Gran % (Auto) 0.200 Neut % (Auto) 49.8 Lymph % (Auto) 41.7 H [place] % (Auto) 6.6 Eos % (Auto) 1.1 Baso % (Auto) 0.6 Absolute Neuts (auto) 3.1 Absolute Lymphs (auto) 2.58 Nucleated RBC % 0 Sodium 143 Potassium 3.5 Chloride 111 H Carbon Dioxide 25.0 Anion Gap 7 BUN 10 Creatinine 0.87 Estim Creat Clear Calc 72.53 Est GFR (MDRD) Af Amer 93 Est GFR (MDRD) Non-Af 77 BUN/Creatinine Ratio 11.5 Glucose 82 Calcium 9.2 Urine Color Yellow Urine Clarity Clear Urine pH 6.0 Ur Specific [place] 1.020 Urine Protein 30 H Urine Glucose (UA) Normal Urine Ketones 50 H Urine Occult Blood 250 H Urine Nitrite Negative Urine Bilirubin Negative Urine Urobilinogen Normal Ur Leukocyte Esterase 100 H Urine RBC 0-5 SEEN Urine WBC 0-5 SEEN Ur Squamous Epith Cells 0-5 SEEN Urine Bacteria RARE Urine Mucus 0 SEEN Discharge Plan Triage Chief Complaint: Nausea/Vomiting/Diarrhea ED Provider: Mohsen Pereira Dx/Rx/DC Orders Clinical Impression: Crohn's disease, Abdominal pain, Diarrhea Instructions: Abdominal Pain, ED Crohn's Disease Prescriptions: New dicyclomine 20 mg tablet 20 mg PO TID Qty: 20 0RF ondansetron 4 mg tablet,disintegrating 4 mg PO Q8H Qty: 10 0RF No Action hydroxyzine pamoate 25 mg capsule 25 mg PO QHS escitalopram oxalate [Lexapro] 20 mg tablet 20 mg PO DAILY lamotrigine [Lamictal] 100 mg tablet 200 mg PO DAILY ondansetron 4 mg tablet,disintegrating 4 mg PO Q6H PRN (Reason: nausea and vomiting) Qty: 7 0RF dicyclomine 10 mg capsule 20 mg PO TID Qty: 30 0RF hydrocodone-acetaminophen [hydrocodone-acetaminophen] 5-325 mg tablet 1 tab PO Q6H PRN PRN (Reason: Pain) 3 Days Qty: 10 0RF nitrofurantoin monohyd/m-cryst [nitrofurantoin monohyd/m-cryst] 100 mg capsule 100 mg PO Q12 Qty: 10 0RF Primary Care Provider: Michelle Grimm NP Referrals: Michelle Grimm NP, [employer] [Primary Care Provider] - 3-5 Days Disposition Disposition: Home, Self Care
[2022-04-10] MEDS: Ondansetron 4 MG/2 ML Vial IV (18:22)
[2022-04-10] MEDS: Morphine 4 MG/ML Syringe IV (18:23)
[2022-04-10] MEDS: Dicyclomine 20 MG/2 ML Vial IM (18:24)
[2022-04-10 20:03] VITALS: BP 128/60; PULSE 78; RESP 18
== END 2022-04-10 20:04 | disposition home or self-care (01) ==
PROVIDERS: Emergency Provider Emergency Medicine; PCP Nurse Practitioner Primary Care; Visit Provider Emergency Medicine
DX: K50.90 Crohn's disease, unspecified, without complications (principal); F31.9 Bipolar disorder, unspecified; R10.9 Unspecified abdominal pain; F17.210 Nicotine dependence, cigarettes, uncomplicated; R19.7 Diarrhea, unspecified; F41.9 Anxiety disorder, unspecified
CPT/HCPCS: 80048; 81001; 85025; 96372; 96374; 96375; 99283; A4216; J2405

== ENCOUNTER 2022-04-13 10:56 | Emergency (ER) | payer MEDICAID, SELFPAY ==
[2022-04-13 10:57] VITALS: BP 128/93; PULSE 100; RESP 18; TEMP 36.4; O2SAT 98; BMI 31.8
--- NOTE | 2022-04-13 11:08 | CT_ITS ---
INDICATION: abdominal pain. Crohn''s. CANNABIS HYPEREMESIS SYNDROME EXAMINATION: CT ABDOMEN AND PELVIS WITH CONTRAST - CT Abdomen And Pelvis W/ Contrast Injection TECHNIQUE: Helically acquired images were obtained of the abdomen and pelvis following IV contrast. A radiation dose optimization technique was used for this scan. IV Contrast dosage and agent: Oral contrast: None. COMPARISON: August 21, 2020 and November 21, 2021 FINDINGS: LOWER CHEST: Lung bases are clear. No cardiomegaly or pericardial effusion. LIVER: Homogeneous. No focal mass. GALLBLADDER AND BILIARY TREE: No calcified gallstones. No gallbladder distension or wall edema. No intra- or extrahepatic biliary ductal dilation. PANCREAS: No focal cystic or solid mass. SPLEEN: Normal size without focal cystic or solid mass. ADRENAL GLANDS: No nodules. There is a 1.2 x 1.7 cm left adrenal nodule that has increased in size since August 2020 previously measuring 0.8 x 0.6 cm. KIDNEYS AND URETERS: Normal renal size and position. No hydronephrosis. PERITONEUM: No ascites or free air. No other fluid collection. BOWEL: No evidence of acute appendicitis. No stomach or bowel distension. There are diverticula arising from the colon. No focal inflammatory change. LYMPH NODES: No enlarged mesenteric or retroperitoneal lymph nodes. VESSELS: Aorta is non-dilated. URINARY BLADDER: Unremarkable. REPRODUCTIVE ORGANS: No pelvic masses. There are tubal ligation clips in place. ABDOMINAL WALL: No discrete abdominal or pelvic wall hernia. BONES: No lytic or blastic abnormality. CT/Abdomen/Pelvis W IV Cont ONLY IMPRESSION: Interval enlargement of 1.2 x 1.7 cm left adrenal nodule, recommend hormonal workup and/or endocrinology consult. Colonic diverticulosis. Electronically Signed: Radha Velasquez MD at 12:47 EST ,
[2022-04-13 11:27] LABS: Absolute Lymphocyte Count 2.34 X10^3/uL (0.83-4.51); Absolute Neutrophil Count 2.7 X10^3/uL (2.0-7.7); Basophil# 0.02 X10^3/uL; Basophil% 0.4 % (0-1); Eosinophil# 0.06 X10^3/uL; Eosinophils% 1.1 % (0-5); Hematocrit 36.6 % (37-47); Hemoglobin 12.2 g/dL (12.0-15.0); Lymphocyte # 2.34 X10^3/ul (0.83-4.51); Lymphocyte % 42.5 % (19-41); Mean Corp Hgb Conc 33.3 g/dL (32-36); Mean Corpuscular Hgb 30.2 pg (27.0-32.0); Mean Corpuscular Volume 90.6 fL (81-99); Mean Platelet Vol. 8.8 fl (6.2-12.0); Monocyte# 0.39 X10^3/uL; Monocyte% 7.1 % (0-10); NRBC Flagged by Analyzer 0 % (0-5); Neutrophil # 2.69 X10^3/uL (2.7-7.7); Neutrophil % 48.7 % (47-70); Platelet Count 409 K/mm3 (150-450); RBC Distribution Width CV 12.8 % (11.6-14.6); RBC Distribution Width SD 42.5 fl (35.1-43.9); Red Blood Count 4.04 M/mm3 (4.2-5.4); White Blood Count 5.5 K/mm3 (4.4-11.0)
[2022-04-13] MEDS: Morphine 4 MG/ML Syringe IV ×2 (11:31→12:41)
[2022-04-13] MEDS: Ondansetron 4 MG/2 ML Vial IV (11:31)
[2022-04-13] MEDS: 0.9% Normal Saline 1,000 ML 1000 ML IV (11:31)
[2022-04-13 11:49] LABS: Internal QC Validated? YES +Cl - CLEAR BKGD; Pregnancy, Serum, hCG Quali. NEGATIVE Negative
[2022-04-13 12:01] LABS: AST(SGOT) 16 U/L (15-37); Alanine Aminotransfer ALT/SGPT 22 U/L (13-56); Alkaline Phosphatase 75 U/L (45-117); Anion Gap 4 (5-15); BUN 11 mg/dL (7-18); BUN/Creat Ratio 11.8 RATIO (10-20); Bilirubin, Direct 0.11 mg/dL (0.00-0.30); Calcium,Total 9.3 mg/dL (8.5-10.1); Chloride 111 mmol/L (98-107); Creatinine, Serum 0.93 mg/dL (0.55-1.02); EST Glomerular Filtration Rate 72 mL/min (>60); Est Glom Filt Rate - Afr Amer 87 mL/min (>60); Estimated Creatinine Clearance 67.85 ml/min; Globulin 3.5 g/dL (2.2-4.2); Glucose 94 mg/dL (74-106); Lipase 63 U/L (73-393); Potassium 3.5 mmol/L (3.5-5.1); Protein, Total 7.5 g/dL (6.4-8.2); Sodium Level 141 mmol/L (136-145)
--- NOTE | 2022-04-13 13:45 | EDS_ITS ---
HPI History of Present Illness Chief Complaint: Abd Pain Informant: patient Narrative Narrative: Female presenting to the emergency department with vomiting diarrhea. She states she has a history of Crohn's disease. She also has a history of cannabis hyperemesis syndrome. She follows with Dr. Ojeda but is not currently on any medication for her Crohn's disease. She states she recently underwent capsule endoscopy and colonoscopy. She reports being in the emergency department on Friday treated for diarrhea and vomiting and given Zofran and Bentyl. She returns today after leaving work feeling worse. She denies any fevers. No bleeding. PFSH PFSH Medical History Acute Crohn's disease Anxiety Back problem Bipolar 1 disorder Depression History of blood transfusion Marijuana use Restless legs Smoker Home Medications escitalopram oxalate 20 mg tablet (Lexapro) 20 mg PO DAILY 08/15/21 [History Last Taken Unknown] hydroxyzine pamoate 25 mg capsule 25 mg PO QHS 08/15/21 [History Last Taken Unknown] lamotrigine 100 mg tablet (Lamictal) 200 mg PO DAILY 08/15/21 [History Last Taken Unknown] dicyclomine 10 mg capsule 20 mg PO TID #30 caps 11/21/21 [Rx Last Taken Unknown] ondansetron 4 mg disintegrating tablet 4 mg PO Q6H PRN nausea and vomiting #7 tabs 11/21/21 [Rx Last Taken Unknown] hydrocodone-acetaminophen 5-325mg 5mg-325mg 1 tab PO Q6H PRN PRN Pain 3 days #10 TABLETS 02/19/22 [Rx Last Taken Unknown] nitrofurantoin monohydrate/macrocrystals 100 mg capsule 100 mg PO Q12 #10 CAPSULES 02/19/22 [Rx Last Taken Unknown] dicyclomine 20 mg tablet 20 mg PO TID #20 tabs 04/10/22 [Rx Last Taken Unknown] ondansetron 4 mg disintegrating tablet 4 mg PO Q8H #10 tabs 04/10/22 [Rx Last Taken Unknown] hydrocodone-acetaminophen 5-325mg 5mg-325mg 1 tab PO Q6H PRN PRN Pain 3 days #12 TABLETS 04/13/22 [Rx Last Taken Unknown] prednisone 10 mg tablet 30 mg PO DAILY 7 days #21 tabs 04/13/22 [Rx Last Taken Unknown] promethazine 25 mg tablet 25 mg PO Q6H PRN PRN Nausea #10 TABLETS 04/13/22 [Rx Last Taken Unknown] Allergy/AdvReac Type Severity Reaction Status Date / Time amoxicillin Allergy Rash Verified 04/10/22 16:02 tramadol Allergy Rash Verified 04/10/22 16:02 Family History Mother Mental disorder Surgical History Tubal ligation status Social History household members: children Smoking Status: Current every day smoker tobacco type: cigarettes substance use type: does not use ROS ROS ED Constitutional Constitutional ED: Denies chills, fever(s) or weight loss Eyes Eyes: Denies change in vision or diplopia ENT ENT ED: Denies ear pain, rhinorrhea or sore throat Cardiovascular Cardiovascular: Denies chest pain, orthopnea, palpitations or racing heartbeat Respiratory/Chest Respiratory/Chest: Denies cough, dyspnea or orthopnea Gastrointestinal Gastrointestinal: Reports abdominal pain, diarrhea, nausea and vomiting; Denies melena Genitourinary Genitourinary ED: Denies dysuria, hematuria or urinary frequency Musculoskeletal Musculoskeletal: Denies arthralgias or myalgias Integumentary Denies abscess or rash Neurologic Neurologic: Denies headache(s) or weakness Psychiatric Psychiatric: Denies anxiety, depression, suicidal ideation or suicidal thoughts Endocrine Endocrinology: Denies polydipsia, polyphagia or polyuria Allergic/Immunologic Allergic/Immunologic ED: Denies mouth swelling, tongue swelling or urticaria EXAM Physical Exam Narrative Exam Narrative: Patient is retching Const Vital Signs: 04/13/22 10:57 Temperature 97.6 F L Temperature Source Temporal Pulse Rate 100 Respiratory Rate 18 Blood Pressure 128/93 H Blood Pressure Mean 104 Pulse Ox 98 Oxygen Delivery Method Room Air Positive well nourished and well developed General Appearance ED: well developed HEENT Reports normocephalic, head/scalp atraumatic and moist mucous membranes Eyes PERRL and EOMs intact bilaterally Neck no lymphadenopathy, supple and no JVD Resp normal respiratory effort and clear to auscultation bilaterally Cardio regular rate, regular rhythm and no murmurs GI normal to inspection, nondistended, normoactive bowel sounds and non-tender Palpation: soft Back/Spine no CVA tenderness and normal ROM Extremity normal to inspection General Extremety ED: Negative for edema General Extremity: Negative for edema Neuro oriented x3 and CN's II-XII intact bilaterally Sensorium / Orientation: alert Motor Exam: strength 5/5 throughout Psych mental status grossly normal Mood & Affect: Negative for depressed or tearful Skin no rashes or lesions noted and no wounds MDM MDM MDM Narrative Medical decision making narrative: Patient received morphine Zofran and IV fluids. Basic blood work was obtained and was negative. CT of the abdomen pelvis not demonstrate any inflammatory changes. I reviewed the case with her manager primary care Dr. Ojeda. We will place her on prednisone I can write for some Phenergan as the Zofran was not effective for her Lab Data Attestation: I reviewed the patient's lab results. Labs: Laboratory Results - last 24 hr 04/13/22 04/13/22 04/13/22 11:15 11:15 11:15 WBC 5.5 RBC 4.04 L Hgb 12.2 Hct 36.6 L MCV 90.6 MCH 30.2 MCHC 33.3 RDW Std Deviation 42.5 RDW Coeff of Kim 12.8 Plt Count 409 MPV 8.8 Immature Gran % (Auto) 0.200 Neut % (Auto) 48.7 Lymph % (Auto) 42.5 H [place] % (Auto) 7.1 Eos % (Auto) 1.1 Baso % (Auto) 0.4 Absolute Neuts (auto) 2.7 Absolute Lymphs (auto) 2.34 Nucleated RBC % 0 Sodium 141 Potassium 3.5 Chloride 111 H Carbon Dioxide 26.0 Anion Gap 4 L BUN 11 Creatinine 0.93 Estim Creat Clear Calc 67.85 Est GFR (MDRD) Af Amer 87 Est GFR (MDRD) Non-Af 72 BUN/Creatinine Ratio 11.8 Glucose 94 Calcium 9.3 Total Bilirubin 0.20 Direct Bilirubin 0.11 AST 16 ALT 22 Alkaline Phosphatase 75 Total Protein 7.5 Albumin 4.0 Globulin 3.5 Lipase 63 L Serum , Qual NEGATIVE Radiography Diagnostic Testing: Clinical Impression(s) from Imaging Studies Abdomen/Pelvis CT 04/13/22 11:08 IMPRESSION: Interval enlargement of 1.2 x 1.7 cm left adrenal nodule, recommend hormonal workup and/or endocrinology consult. Colonic diverticulosis. Electronically Signed: Radha Velasquez MD at 12:47 EST , Discharge Plan Triage Chief Complaint: Abd Pain ED Provider: Jani Morse Dx/Rx/DC Orders Clinical Impression: Abdominal pain, Crohn's disease, Diarrhea, Cannabis hyperemesis syndrome concurrent with and due to cannabis abuse, Vomiting Instructions: ED Crohn's Disease Prescriptions: New hydrocodone-acetaminophen [hydrocodone-acetaminophen] 5-325 mg tablet 1 tab PO Q6H PRN PRN (Reason: Pain) 3 Days Qty: 12 0RF promethazine [promethazine] 25 mg tablet 25 mg PO Q6H PRN PRN (Reason: Nausea) Qty: 10 0RF prednisone 10 mg tablet 30 mg PO DAILY 7 Days Qty: 21 0RF No Action hydroxyzine pamoate 25 mg capsule 25 mg PO QHS escitalopram oxalate [Lexapro] 20 mg tablet 20 mg PO DAILY lamotrigine [Lamictal] 100 mg tablet 200 mg PO DAILY ondansetron 4 mg tablet,disintegrating 4 mg PO Q6H PRN (Reason: nausea and vomiting) Qty: 7 0RF dicyclomine 10 mg capsule 20 mg PO TID Qty: 30 0RF hydrocodone-acetaminophen [hydrocodone-acetaminophen] 5-325 mg tablet 1 tab PO Q6H PRN PRN (Reason: Pain) 3 Days Qty: 10 0RF nitrofurantoin monohyd/m-cryst [nitrofurantoin monohyd/m-cryst] 100 mg capsule 100 mg PO Q12 Qty: 10 0RF dicyclomine 20 mg tablet 20 mg PO TID Qty: 20 0RF ondansetron 4 mg tablet,disintegrating 4 mg PO Q8H Qty: 10 0RF Primary Care Provider: Michelle Grimm NP Referrals: Kenn Ojeda DO [Med Staff - Active Staff] - Keep Mario appointment Michelle Grimm NP, [employer] [Primary Care Provider] - Disposition Disposition: Home, Self Care
--- NOTE | 2022-04-18 12:50 | CASEMGMT ---
INCIDENTAL FINDINGS F/U -Per [employer] report 04/13/22: CT/Abdomen/Pelvis W IV Cont ONLY IMPRESSION: Interval enlargement of 1.2 x 1.7 cm left adrenal nodule, recommend hormonal workup and/or endocrinology consult. Colonic diverticulosis. -Appt with Dr. Ojeda on 04/19/22.
== END 2022-04-13 13:55 | disposition home or self-care (01) ==
PROVIDERS: Emergency Provider Emergency Medicine; PCP Nurse Practitioner Primary Care; Visit Provider Emergency Medicine
DX: K50.90 Crohn's disease, unspecified, without complications (principal); F12.188 Cannabis abuse with other cannabis-induced disorder; F17.210 Nicotine dependence, cigarettes, uncomplicated; R11.10 Vomiting, unspecified; R19.7 Diarrhea, unspecified; Z79.52 Long term (current) use of systemic steroids
CPT/HCPCS: 74177; 80048; 80076; 83690; 84703; 85025; 96361; 96374; 96375; 96376; 99283; J7030; Q9967; A4216; J2405

== ENCOUNTER → 2022-04-19 | Outpatient (CLI) | payer MEDICAID, SELFPAY ==
[2022-04-19 11:16] LABS: Erythrocyte Sedimentation Rate 7 mm/hr (0-30)
[2022-04-19 11:35] LABS: CRP 9.01 mg/L (0.0-3.0)
[2022-04-19 11:42] LABS: Rubella IgG Reactive (Nonreactive)
[2022-04-24 00:06] LABS: HEPATITIS B SURFACE AG Negative (Negative); Hep C Antibodies <0.1 s/co ratio (0.0-0.9); Hepatitis A IgM Antibody Negative (Negative); Hepatitis B Core AB IgM Negative (Negative)
[2022-04-24 11:15] LABS: B. pertussis IgG 4.54 index (0.00-0.94); Mumps Antibody, IgM < 0.80 AU (0.00-0.79); V-Zoster IgG (Immunity) 2000 index (Immune >165)
== END | disposition home or self-care (01) ==
LOC: LAB 10:13
PROVIDERS: PCP Nurse Practitioner Primary Care; Visit Provider Internal Medicine Gastroenterology
DX: K50.90 Crohn's disease, unspecified, without complications (principal)
CPT/HCPCS: 36415; 80074; 85652; 86140; 86480; 86615; 86735; 86762; 86787

== ENCOUNTER 2022-05-16 07:44 | Emergency (ER) | payer MEDICAID, SELFPAY ==
[2022-05-16 07:45] VITALS: BP 158/116; PULSE 86; RESP 18; TEMP 36.6; O2SAT 100; BMI 36.3
--- NOTE | 2022-05-16 08:24 | ED.VIS.GI ---
HPI HPI - GI History of Present Illness Chief Complaint: Abd Pain Informant: patient Narrative Narrative: Increasing lower abdominal cramping since yesterday. Vomiting x3 no hematemesis. Positive flatus. Normal bowel movement yesterday afternoon. History of tubal ligation. History of Crohn's disease followed by Dr. Ojeda. She is diagnosed back in 2007 no surgical interventions. Seen a month ago for similar states CT scan noted adrenal nodule. She is started on prednisone 20 mg that she has been persistently taking. Yesterday prior to symptoms started has plans of another medicine she cannot recall the name. Reported wanted to be started on Stelara however insurance not covering at this time. No urinary symptoms. No fevers. Review of her work-up a month ago noted CT scan left adrenal nodule there is no acute findings. Apparent history of marijuana use every other day. Prior similar symptoms: Yes PFSH PFSH Medical History Acute Crohn's disease Anxiety Back problem Bipolar 1 disorder Depression History of blood transfusion Marijuana use Restless legs Smoker Home Medications escitalopram oxalate 20 mg tablet (Lexapro) 20 mg PO DAILY 08/15/21 [History Last Taken Unknown] hydroxyzine pamoate 25 mg capsule 25 mg PO QHS 08/15/21 [History Last Taken Unknown] lamotrigine 100 mg tablet (Lamictal) 200 mg PO DAILY 08/15/21 [History Last Taken Unknown] azathioprine 50 mg tablet See Rx Instructions PO DAILY #35 tabs 05/14/22 [Rx Last Taken Unknown] ondansetron 4 mg disintegrating tablet 4 mg PO Q6H PRN nausea and vomiting #10 tabs 05/16/22 [Rx Last Taken Unknown] Allergy/AdvReac Type Severity Reaction Status Date / Time amoxicillin Allergy Rash Verified 05/16/22 07:47 tramadol Allergy Rash Verified 05/16/22 07:47 Family History Mother Mental disorder Surgical History Tubal ligation status Social History household members: children Smoking Status: Current every day smoker tobacco type: cigarettes substance use type: does not use ROS ROS ED Constitutional Constitutional ED: Denies chills, fever(s) or sweats Eyes Eyes: Denies change in vision ENT ENT ED: Denies dysphagia or sore throat Cardiovascular Cardiovascular: Denies chest pain, leg edema, palpitations or racing heartbeat Respiratory/Chest Respiratory/Chest: Denies cough, dyspnea or dyspnea on exertion Gastrointestinal Gastrointestinal: Reports abdominal pain; Denies diarrhea, nausea or vomiting Genitourinary Genitourinary ED: Denies dysuria, hematuria or urinary frequency Musculoskeletal Musculoskeletal: Denies back pain, extremity pain or neck pain Integumentary Denies rash or wounds Neurologic Neurologic: Denies headache(s), paresthesias or weakness EXAM Physical Exam Const Vital Signs: 05/16/22 07:45 05/16/22 10:34 05/16/22 12:04 Temperature 97.9 F 96.7 F L Temperature Source Temporal Temporal Pulse Rate 86 62 62 Respiratory Rate 18 16 15 Blood Pressure 158/116 H 135/90 H 138/74 H Blood Pressure Mean 130 105 Pulse Ox 100 99 98 Oxygen Delivery Method Room Air Room Air Positive well nourished and well developed General Appearance ED: well developed and NAD HEENT Reports moist mucous membranes normocephalic and atraumatic Eyes PERRL, EOMs intact bilaterally and conjunctivae normal General Eye ED: Yes normal appearance of both eyes Neck no lymphadenopathy and supple General: Negative for tenderness Chest Wall Chest: Negative for tenderness Resp normal respiratory effort and normal air movement Effort and Inspection: symmetric chest movement; Negative for respiratory distress Cardio regular rate, regular rhythm and no murmurs Peripheral Pulses: pulses 2+ throughout GI normal to inspection, nondistended, normoactive bowel sounds GI Narrative: Mild lower abdominal pain there is no guarding or rebound. Negative Smalls's or McBurney's tenderness. Palpation: Negative for guarding or rebound tenderness present Back/Spine no CVA tenderness and no thoracic nor lumbar tenderness Extremity normal to inspection General Extremety ED: Negative for edema or tenderness General Extremity: Negative for edema Neuro oriented x3 and no sensory deficits noted Sensorium / Orientation: awake and alert Skin no rashes or lesions noted and no wounds MDM MDM MDM Narrative Medical decision making narrative: Patient with abdominal pain nonsurgical. History of Crohn's disease. Differential Crohn's flare also additional history of marijuana use. Cannabis hyperemesis syndrome also with her vomiting. Viral syndrome with gastritis also considered. She had a CT scan recently noted left adrenal nodule. Do not feel additional CT is necessary at this time. She abdominal labs rechecked normal hCG negative. She is treated with fluids and Levsin with her vomiting along with Zofran. 1030: Reporting pain is still 10 with a soft abdomen. She does admit to marijuana use every other day she reports hot baths has helped in the past. We will try capsaicin cream. 1150: Patient with capsaicin cream with improvement in symptoms however none reported had some scratches from her cat that cause increasing burning that was wiped off. Patient using marijuana for her Crohn's symptoms. She is clinically improved prescription of Zofran to her pharmacy. She is confirming stating she was started on azathioprine for which she will start taking for her Crohn's. I discussed with her GI doctor Dr. Ojeda her visit here in the ED and concerns. He will follow-up as an outpatient. Lab Data Attestation: I reviewed the patient's lab results. Labs: Laboratory Results - last 24 hr 05/16/22 05/16/22 05/16/22 08:05 08:05 08:05 WBC 8.4 RBC 4.08 L Hgb 12.5 Hct 38.1 MCV 93.4 MCH 30.6 MCHC 32.8 RDW Std Deviation 48.4 H RDW Coeff of Kim 14.2 Plt Count 416 MPV 9.0 Immature Gran % (Auto) 0.400 Neut % (Auto) 50.9 Lymph % (Auto) 40.0 [place] % (Auto) 7.0 Eos % (Auto) 1.2 Baso % (Auto) 0.5 Absolute Neuts (auto) 4.3 Absolute Lymphs (auto) 3.36 Nucleated RBC % 0 Sodium 141 Potassium 3.6 Chloride 107 Carbon Dioxide 26.0 Anion Gap 8 BUN 10 Creatinine 0.89 Estim Creat Clear Calc 70.90 Est GFR (MDRD) Af Amer 92 Est GFR (MDRD) Non-Af 76 BUN/Creatinine Ratio 11.3 Glucose 95 Calcium 8.8 Total Bilirubin 0.30 AST 12 L ALT 31 Alkaline Phosphatase 64 Total Protein 6.7 Albumin 3.4 Globulin 3.3 Albumin/Globulin Ratio 1.0 Lipase 59 L Serum , Qual NEGATIVE Discharge Plan Triage Chief Complaint: Abd Pain ED Provider: Jared Reynolds Dx/Rx/DC Orders Clinical Impression: Cannabis hyperemesis syndrome concurrent with and due to cannabis abuse, Crohn's disease, Abdominal pain, Vomiting Instructions: Cannabinoid Hyperemesis Syndrome Prescriptions: New ondansetron 4 mg tablet,disintegrating 4 mg PO Q6H PRN (Reason: nausea and vomiting) Qty: 10 0RF No Action hydroxyzine pamoate 25 mg capsule 25 mg PO QHS escitalopram oxalate [Lexapro] 20 mg tablet 20 mg PO DAILY lamotrigine [Lamictal] 100 mg tablet 200 mg PO DAILY azathioprine 50 mg tablet See Rx Instructions PO DAILY Qty: 35 0RF Rx Instructions: orally daily; take 50mg for one week then 100mg Primary Care Provider: PodlogMichelle turcios NP Referrals: Kenn Ojeda DO [Med Staff - Active Staff] - 1-2 Weeks PodMichelle baird NP, [employer] [Primary Care Provider] - Disposition Disposition: Home, Self Care Discharge Date/Time: 05/16/22 12:05
[2022-05-16] MEDS: 0.9% Normal Saline 1,000 ML 1000 ML IV (08:38)
[2022-05-16] MEDS: Ondansetron 4 MG/2 ML Vial IV (08:38)
[2022-05-16 08:47] LABS: Absolute Lymphocyte Count 3.36 X10^3/uL (0.83-4.51); Absolute Neutrophil Count 4.3 X10^3/uL (2.0-7.7); Basophil# 0.04 X10^3/uL; Basophil% 0.5 % (0-1); Eosinophils% 1.2 % (0-5); Hematocrit 38.1 % (37-47); Hemoglobin 12.5 g/dL (12.0-15.0); Lymphocyte # 3.36 X10^3/ul (0.83-4.51); Mean Corp Hgb Conc 32.8 g/dL (32-36); Mean Corpuscular Hgb 30.6 pg (27.0-32.0); Mean Corpuscular Volume 93.4 fL (81-99); Monocyte# 0.59 X10^3/uL; NRBC Flagged by Analyzer 0 % (0-5); Neutrophil # 4.28 X10^3/uL (2.7-7.7); Neutrophil % 50.9 % (47-70); Platelet Count 416 K/mm3 (150-450); RBC Distribution Width CV 14.2 % (11.6-14.6); RBC Distribution Width SD 48.4 fl (35.1-43.9); Red Blood Count 4.08 M/mm3 (4.2-5.4); White Blood Count 8.4 K/mm3 (4.4-11.0)
[2022-05-16] MEDS: Hyoscyamine Sulfate 0.125 MG Tablet 0.25 MG SL (08:51)
[2022-05-16 08:57] LABS: Internal QC Validated? YES +Cl - CLEAR BKGD; Pregnancy, Serum, hCG Quali. NEGATIVE Negative
[2022-05-16 09:02] LABS: AST(SGOT) 12 U/L (15-37); Alanine Aminotransfer ALT/SGPT 31 U/L (13-56); Albumin, Serum 3.4 g/dL (3.2-5.0); Alkaline Phosphatase 64 U/L (45-117); Anion Gap 8 (5-15); BUN 10 mg/dL (7-18); BUN/Creat Ratio 11.3 RATIO (10-20); Calcium,Total 8.8 mg/dL (8.5-10.1); Chloride 107 mmol/L (98-107); Creatinine, Serum 0.89 mg/dL (0.55-1.02); EST Glomerular Filtration Rate 76 mL/min (>60); Est Glom Filt Rate - Afr Amer 92 mL/min (>60); Globulin 3.3 g/dL (2.2-4.2); Glucose 95 mg/dL (74-106); Lipase 59 U/L (73-393); Potassium 3.6 mmol/L (3.5-5.1); Protein, Total 6.7 g/dL (6.4-8.2); Sodium Level 141 mmol/L (136-145)
[2022-05-16 10:34] VITALS: BP 135/90; PULSE 62; RESP 16; TEMP 35.9; O2SAT 99
[2022-05-16] MEDS: Capsaicin 0.025% 1 APPLIC Tube TOPICAL (11:36)
--- NOTE | 2022-05-16 11:43 | ED.RN ---
PT RINGS OUT. THIS RN TO ROOM. PT SCREAMING TAKE IT OFF, TAKE IT OFF. PT STATES ITS BURNING. PT GIVEN TOWEL. MADE AWARE
[2022-05-16 12:04] VITALS: BP 138/74; PULSE 62; RESP 15; O2SAT 98
== END 2022-05-16 12:05 | disposition home or self-care (01) ==
PROVIDERS: Emergency Provider Emergency Medicine; PCP Nurse Practitioner Primary Care; Visit Provider Emergency Medicine
DX: R11.2 Nausea with vomiting, unspecified (principal); F31.9 Bipolar disorder, unspecified; K50.90 Crohn's disease, unspecified, without complications; R10.30 Lower abdominal pain, unspecified; F12.10 Cannabis abuse, uncomplicated; F17.210 Nicotine dependence, cigarettes, uncomplicated; Z79.899 Other long term (current) drug therapy
CPT/HCPCS: 80053; 83690; 84703; 85025; 96361; 96374; 99283; J7030; J2405

== ENCOUNTER 2022-05-22 22:41 | Emergency (ER) | payer MEDICAID, SELFPAY ==
[2022-05-22 22:42] VITALS: BP 146/95; PULSE 94; RESP 18; TEMP 37; O2SAT 100; BMI 34.4
--- NOTE | 2022-05-22 23:05 | CT_ITS ---
EXAM: CT ABDOMEN AND PELVIS WITH INTRAVENOUS CONTRAST CLINICAL INDICATION: upper abd pain, n/v TECHNIQUE: Helically acquired images were obtained of the abdomen and pelvis with intravenous contrast. This CT exam was performed using one or more of the following dose reduction techniques: automated exposure control, adjustment of the mA and/or kV according to patient size, and/or use of iterative reconstruction technique. This report was created using [employer] report generation technology. CONTRAST: IV 100mL [id number] COMPARISON: 04/13/2022 FINDINGS: LOWER THORAX: Mild bibasilar dependent atelectasis. No cardiomegaly. No significant pericardial effusion. ABDOMEN: LIVER: Unremarkable. Homogeneous. No focal mass. GALLBLADDER AND BILE DUCTS: Unremarkable. No calcified gallstones. No gallbladder distention or wall edema. No intra- or extrahepatic biliary ductal dilation. PANCREAS: Unremarkable. No focal cystic or solid mass. No inflammation around the pancreas. SPLEEN: Unremarkable. Normal size without focal cystic or solid mass. ADRENALS: Stable previously described left adrenal nodule. KIDNEYS AND URETERS: Unremarkable. Normal renal size and position. No hydronephrosis. STOMACH AND BOWEL: Diverticular disease of the colon but no diverticulitis. No stomach or bowel distention. PELVIS: APPENDIX: The appendix is normal. BLADDER: Unremarkable. REPRODUCTIVE: Tubal ligation clips. ABDOMEN and PELVIS: INTRAPERITONEAL SPACE: Unremarkable. No ascites or other fluid collection. No free air. BONES/JOINTS: Unremarkable. No suspicious lytic or blastic abnormality. SOFT TISSUES: Unremarkable. No discrete abdominal or pelvic wall hernia. VASCULATURE: Unremarkable. Abdominal aorta is non-dilated. LYMPH NODES: Unremarkable. No enlarged lymph nodes. CT/Abdomen/Pelvis W IV Cont ONLY IMPRESSION: 1. No acute abnormalities identified in the abdomen/pelvis. 2. Stable previously described left adrenal nodule. Follow-up per previous recommendations. Electronically Signed: Catarino Camarillo MD at 0:11 EST ,
--- NOTE | 2022-05-22 23:06 | ED.VIS.GI ---
HPI HPI - GI History of Present Illness Chief Complaint: Abd Pain Informant: patient Abdominal Pain/Flank Pain Onset: Days (4) Context: Gradual Onset Timing: Intermittent Quality: Aching Location: Epigastric (down to periumbilical area) Current Severity: Severe (for past 2 hrs) Maximum Severity: Severe Worsened by: Nothing Relieved by: Nothing Nausea/Vomiting/Emesis GI Symptom: Positive for Nausea and Vomiting Onset: Today Quality: Positive for Nonbilious Severity: Moderate Diarrhea/Melena/Hematochezia GI Symptom: Negative for Diarrhea, Melena or Hematochezia Associated Symptoms Associated Symptoms: Negative for Dysuria, Frequency, Hematuria or Urgency Narrative Narrative: Patient presenting for abdominal pain for the past 4 days. She has Crohn's. She states the pain has been intermittent, but in the past couple hours it has been severe, more persistent than it had been recently, and associated with vomiting for the first time in the last 4 days. Nonbilious, nonbloody emesis. She has had no bowel movements recently, she is not having any diarrhea or bright red blood per rectum. She denies any fevers or chills or respiratory symptoms. No prior abdominal surgeries. She states that she recently saw GI Dr. Ojeda and was started on a new Crohn's medication that she happened to just start the day before the symptoms started. It is once a day she does not know the name of it, perhaps it is the budesonide that is on her medication list but she is not sure. She states prior to this she was on nothing for Crohn's maintenance, however the last time she had a flareup was several months ago, and the history of her Crohn's in the past couple years has been basically not having insurance to cover maintenance medications and going to the hospital once or twice a year whenever she would have a flareup and getting treated that way. She states when she would get a flareup, she would have diarrhea but not necessarily blood in it. PFSH PFSH Medical History Acute Crohn's disease Anxiety Back problem Bipolar 1 disorder Depression History of blood transfusion Marijuana use Restless legs Smoker Home Medications escitalopram oxalate 20 mg tablet (Lexapro) 20 mg PO DAILY 08/15/21 [History Last Taken Unknown] hydroxyzine pamoate 25 mg capsule 25 mg PO QHS 08/15/21 [History Last Taken Unknown] lamotrigine 100 mg tablet (Lamictal) 200 mg PO DAILY 08/15/21 [History Last Taken Unknown] ondansetron 4 mg disintegrating tablet 4 mg PO Q6H PRN nausea and vomiting #10 tabs 05/16/22 [Rx Last Taken Unknown] budesonide 3 mg capsule,delayed,extended release 9 mg PO DAILY #45 ea 05/20/22 [Rx Last Taken Unknown] promethazine 25 mg tablet 25 mg PO Q6H PRN PRN Nausea #10 TABLETS 05/23/22 [Rx Last Taken Unknown] Allergy/AdvReac Type Severity Reaction Status Date / Time amoxicillin Allergy Rash Verified 05/22/22 22:45 tramadol Allergy Rash Verified 05/22/22 22:45 Family History Mother Mental disorder Surgical History Tubal ligation status Social History household members: children Smoking Status: Current every day smoker tobacco type: cigarettes substance use type: does not use ROS ROS ED Constitutional Constitutional ED: Denies chills or fever(s) Eyes Eyes: Denies change in vision or diplopia ENT ENT ED: Denies rhinorrhea or sore throat Cardiovascular Cardiovascular: Denies chest pain or palpitations Respiratory/Chest Respiratory/Chest: Denies cough or dyspnea Gastrointestinal Gastrointestinal: Reports abdominal pain, nausea and vomiting; Denies diarrhea or melena Genitourinary Genitourinary ED: Denies dysuria or hematuria Musculoskeletal Musculoskeletal: Denies back pain or neck pain Integumentary Denies abscess or rash Neurologic Neurologic: Denies headache(s), paresthesias or weakness Psychiatric Psychiatric: Denies anxiety or suicidal thoughts EXAM Physical Exam Const Vital Signs: 05/22/22 22:42 05/23/22 00:44 Temperature 98.6 F Temperature Source Temporal Pulse Rate 94 81 Respiratory Rate 18 18 Blood Pressure 146/95 H 136/80 H Blood Pressure Mean 112 Pulse Ox 100 Oxygen Delivery Method Room Air Positive well nourished and well developed Constitutional Narrative: in discomfort, tearful, but no distress General Appearance ED: well developed HEENT Reports moist mucous membranes normocephalic and atraumatic Eyes PERRL and EOMs intact bilaterally Neck full ROM and supple Resp normal respiratory effort and clear to auscultation bilaterally Cardio regular rate, regular rhythm and no murmurs GI non-distended GI Narrative: moderately tender epigastrium, less in supraumbilical/periumbilical area, otherwise NT. no palpable hernias/mass. nondistended. Auscultation: normoactive bowel sounds Palpation: soft Back/Spine no CVA tenderness General Back: other FROM Extremity normal to inspection General Extremety ED: Negative for edema, pulses abnormal or tenderness General Extremity: Negative for edema or pulses abnormal Neuro oriented x3, CN's II-XII intact bilaterally and no sensory deficits noted Sensorium / Orientation: awake and alert Motor Exam: strength 5/5 throughout Psych thought process normal Mood & Affect: anxious and tearful Skin no rashes or lesions noted and no wounds MDM MDM MDM Narrative Medical decision making narrative: It is interesting the symptoms started just after starting a new Crohn's medication, budesonide should not be causing the symptoms, however given the context and timing of not able to rule this out that it is causing functional discomfort, or simple gastritis. However, given her history of Crohn's, I am considering complications of Crohn's such as a small bowel obstruction as well, so labs and a CT were obtained while she was getting symptomatic treatment and IV fluids. Labs are normal except for very slight elevations of AST and ALT which are nonspecific, her lipase is normal ruling out acute pancreatitis with her epigastric pain, her is negative and CT shows nothing acute. My interpretation of the CT agrees with that of the radiologist. Patient presents when ultrasound is not available, however her symptoms are likely biliary, and there were no inflammatory changes in that area on the CT to suggest acute cholecystitis. Additionally she does not have a leukocytosis. Patient was initially given morphine and Zofran, later given Toradol and dicyclomine in addition. Suggest upper GI etiology. She is feeling better will be discharged to follow-up. Given that she had just started this medication when all the symptoms arose, it is certainly possible that the budesonide is giving her some gastritis so I advise discontinuing it at least temporarily to see if her symptoms improve/resolve, and following up with her doctor. She is in agreement with this plan. Lab Data Attestation: I reviewed the patient's lab results. Labs: Laboratory Results - last 24 hr 0105/22/22 05/22/22 23:13 23:13 23:13 WBC 8.0 RBC 4.04 L Hgb 12.8 Hct 37.1 MCV 91.8 MCH 31.7 MCHC 34.5 RDW Std Deviation 45.6 H RDW Coeff of Kim 13.4 Plt Count 324 MPV 9.0 Immature Gran % (Auto) 1.100 H Neut % (Auto) 59.1 Lymph % (Auto) 31.5 [place] % (Auto) 6.6 Eos % (Auto) 1.2 Baso % (Auto) 0.5 Absolute Neuts (auto) 4.8 Absolute Lymphs (auto) 2.53 Nucleated RBC % 0 Sodium 141 Potassium 3.4 L Chloride 111 H Carbon Dioxide 24.0 Anion Gap 6 BUN 12 Creatinine 0.89 Estim Creat Clear Calc 70.90 Est GFR (MDRD) Af Amer 91 Est GFR (MDRD) Non-Af 75 BUN/Creatinine Ratio 13.4 Glucose 100 Calcium 8.8 Total Bilirubin 0.50 AST 170 H ALT 96 H Alkaline Phosphatase 108 Total Protein 7.0 Albumin 3.7 Globulin 3.3 Albumin/Globulin Ratio 1.1 Lipase 63 L Serum , Qual NEGATIVE Radiography Diagnostic Testing: Clinical Impression(s) from Imaging Studies Abdomen/Pelvis CT 05/22/22 23:05 IMPRESSION: 1. No acute abnormalities identified in the abdomen/pelvis. 2. Stable previously described left adrenal nodule. Follow-up per previous recommendations. Electronically Signed: Catarino Camarillo MD at 0:11 EST Reading Location ID and State: [facility] / [place] Tel , Service support , Discharge Plan Triage Chief Complaint: Abd Pain ED Provider: Louis Saul Dx/Rx/DC Orders Clinical Impression: Epigastric abdominal pain, Acute gastritis without bleeding Instructions: ED Gastritis (Adult), ED Epigastric Pain Uncertain Cause Prescriptions: New promethazine [promethazine] 25 mg tablet 25 mg PO Q6H PRN PRN (Reason: Nausea) Qty: 10 0RF No Action hydroxyzine pamoate 25 mg capsule 25 mg PO QHS escitalopram oxalate [Lexapro] 20 mg tablet 20 mg PO DAILY lamotrigine [Lamictal] 100 mg tablet 200 mg PO DAILY ondansetron 4 mg tablet,disintegrating 4 mg PO Q6H PRN (Reason: nausea and vomiting) Qty: 10 0RF budesonide 3 mg capsule,delayed,extend.release 9 mg PO DAILY Qty: 45 1RF Primary Care Provider: Michelle Grimm NP Referrals: Kenn Ojeda DO [Med Staff - Active Staff] - 3-5 Days if not improving Michelle Grimm NP, [employer] [Primary Care Provider] - Activity Restrictions/Additional Instructions: Can see her discontinuing your budesonide since you were not having Crohn's symptoms prior to starting it, to see if your discomfort resolves/improves as a result. In a couple days discuss with your GI doctor concerning recommendations regarding this medication and/or a different one for your Crohn's. Consider taking [id number] Pepcid or Prilosec, or equivalent, daily for 1-2 weeks. Disposition Disposition: Home, Self Care Discharge Date/Time: 05/23/22 00:45
[2022-05-22] MEDS: Ondansetron 4 MG/2 ML Vial IV (23:19)
[2022-05-22] MEDS: 0.9% Normal Saline 1,000 ML 1000 ML IV (23:20)
[2022-05-22] MEDS: Morphine 4 MG/ML Syringe IV (23:20)
[2022-05-22 23:35] LABS: Internal QC Validated? YES +Cl - CLEAR BKGD; Pregnancy, Serum, hCG Quali. NEGATIVE Negative
[2022-05-22 23:40] LABS: ALB/GLOB Ratio 1.1 RATIO (0.9-2.4); AST(SGOT) 170 U/L (15-37); Absolute Lymphocyte Count 2.53 X10^3/uL (0.83-4.51); Absolute Neutrophil Count 4.8 X10^3/uL (2.0-7.7); Alanine Aminotransfer ALT/SGPT 96 U/L (13-56); Albumin, Serum 3.7 g/dL (3.2-5.0); Alkaline Phosphatase 108 U/L (45-117); Anion Gap 6 (5-15); BUN 12 mg/dL (7-18); BUN/Creat Ratio 13.4 RATIO (10-20); Basophil# 0.04 X10^3/uL; Basophil% 0.5 % (0-1); Calcium,Total 8.8 mg/dL (8.5-10.1); Chloride 111 mmol/L (98-107); Creatinine, Serum 0.89 mg/dL (0.55-1.02); EST Glomerular Filtration Rate 75 mL/min (>60); Eosinophils% 1.2 % (0-5); Est Glom Filt Rate - Afr Amer 91 mL/min (>60); Globulin 3.3 g/dL (2.2-4.2); Glucose 100 mg/dL (74-106); Hematocrit 37.1 % (37-47); Hemoglobin 12.8 g/dL (12.0-15.0); Lipase 63 U/L (73-393); Lymphocyte # 2.53 X10^3/ul (0.83-4.51); Lymphocyte % 31.5 % (19-41); Mean Corp Hgb Conc 34.5 g/dL (32-36); Mean Corpuscular Hgb 31.7 pg (27.0-32.0); Mean Corpuscular Volume 91.8 fL (81-99); Monocyte# 0.53 X10^3/uL; Monocyte% 6.6 % (0-10); NRBC Flagged by Analyzer 0 % (0-5); Neutrophil # 4.75 X10^3/uL (2.7-7.7); Neutrophil % 59.1 % (47-70); Platelet Count 324 K/mm3 (150-450); Potassium 3.4 mmol/L (3.5-5.1); RBC Distribution Width CV 13.4 % (11.6-14.6); RBC Distribution Width SD 45.6 fl (35.1-43.9); Red Blood Count 4.04 M/mm3 (4.2-5.4); Sodium Level 141 mmol/L (136-145)
[2022-05-23] MEDS: Dicyclomine 20 MG/2 ML Vial IM (00:11)
[2022-05-23] MEDS: Ketorolac 15 MG/ML Vial IV (00:11)
[2022-05-23] MEDS: Morphine 4 MG/ML Syringe IV (00:11)
[2022-05-23 00:44] VITALS: BP 136/80; PULSE 81; RESP 18
== END 2022-05-23 00:45 | disposition home or self-care (01) ==
PROVIDERS: Emergency Provider Emergency Medicine; PCP Nurse Practitioner Primary Care; Visit Provider Emergency Medicine
DX: K29.00 Acute gastritis without bleeding (principal); K50.90 Crohn's disease, unspecified, without complications; F17.210 Nicotine dependence, cigarettes, uncomplicated; R10.13 Epigastric pain; R11.2 Nausea with vomiting, unspecified; Z79.899 Other long term (current) drug therapy
CPT/HCPCS: 74177; 80053; 83690; 84703; 85025; 96361; 96372; 96374; 96375; 96376; 99285; J7030; Q9967; A4216; J2405

== ENCOUNTER 2022-07-13 11:34 | Emergency (ER) | payer MEDICAID, SELFPAY ==
[2022-07-13 11:35] VITALS: BP 132/93; PULSE 82; RESP 16; TEMP 36.6; O2SAT 96; BMI 33.3
--- NOTE | 2022-07-13 11:46 | ED.VIS.GI ---
HPI HPI - GI History of Present Illness Chief Complaint: Abd Pain Detail of Chief Complaint: Abdominal pain Informant: patient Narrative Narrative: Patient presents to the emergency department with complaint of vomiting and abdominal pain that started while at work today. Patient states that she threw up x2 and there are small amount of blood in the vomit. Patient also has had about 3 or 4 episodes of watery stool today. She denies any sick contacts. She denies fever. She denies dysuria. Patient has history of Crohn's disease. PFSH PFSH Medical History Acute Crohn's disease Anxiety Back problem Bipolar 1 disorder Depression History of blood transfusion Marijuana use Restless legs Smoker Home Medications escitalopram oxalate 20 mg tablet (Lexapro) 20 mg PO DAILY 08/15/21 [History Last Taken Unknown] hydroxyzine pamoate 25 mg capsule 25 mg PO QHS 08/15/21 [History Last Taken Unknown] lamotrigine 100 mg tablet (Lamictal) 200 mg PO DAILY 08/15/21 [History Last Taken Unknown] ondansetron 4 mg disintegrating tablet 4 mg PO Q6H PRN nausea and vomiting #10 tabs 05/16/22 [Rx Last Taken Unknown] budesonide 3 mg capsule,delayed,extended release 9 mg PO DAILY #45 ea 05/20/22 [Rx Last Taken Unknown] promethazine 25 mg tablet 25 mg PO Q6H PRN PRN Nausea #10 TABLETS 05/23/22 [Rx Last Taken Unknown] hydrocodone-acetaminophen 5-325mg 5mg-325mg 1 tab PO Q4H PRN PRN Pain 2 days #10 TABLETS 07/13/22 [Rx Last Taken Unknown] ondansetron 4 mg disintegrating tablet 4 mg PO Q8H PRN PRN Nausea #10 tabs 07/13/22 [Rx Last Taken Unknown] Allergy/AdvReac Type Severity Reaction Status Date / Time amoxicillin Allergy Rash Verified 07/13/22 11:38 tramadol Allergy Rash Verified 07/13/22 11:38 Family History Mother Mental disorder Surgical History Tubal ligation status Social History household members: children Smoking Status: Current every day smoker tobacco type: cigarettes substance use type: does not use ROS ROS ED Review of Systems ROS Unobtainable: other Constitutional Constitutional ED: Reports lethargy; Denies chills, fever(s), sweats or weight loss Eyes Eyes: Denies blurry vision, change in vision or diplopia ENT ENT ED: Denies rhinorrhea or sore throat Cardiovascular Cardiovascular: Denies chest pain, orthopnea or racing heartbeat Respiratory/Chest Respiratory/Chest: Denies cough, dyspnea, dyspnea on exertion, orthopnea or sputum Gastrointestinal Gastrointestinal: Reports abdominal pain, diarrhea, nausea and vomiting Genitourinary Genitourinary ED: Denies dysuria, hematuria or urinary frequency Musculoskeletal Musculoskeletal: Denies arthralgias, back pain, myalgias or neck pain Integumentary Denies abscess, Abrasions or rash Neurologic Neurologic: Denies headache(s) or weakness Psychiatric Psychiatric: Denies anxiety, depression or suicidal thoughts Endocrine Endocrinology: Denies polydipsia, polyphagia or polyuria Hematologic/Lymphatic Hematologic/Lymphatic: Denies easy bleeding, easy bruising or lymphadenopathy Allergic/Immunologic Allergic/Immunologic ED: Denies mouth swelling, tongue swelling or urticaria EXAM Physical Exam Const Vital Signs: 07/13/22 11:35 Temperature 97.8 F Temperature Source Temporal Pulse Rate 82 Respiratory Rate 16 Blood Pressure 132/93 H Blood Pressure Mean 106 Pulse Ox 96 Oxygen Delivery Method Room Air MDM MDM MDM Narrative Medical decision making narrative: Established on arrival. Patient was medicated with Zofran and Bentyl. Her nausea resolved and she had no further vomiting. She continues to complain of lower abdominal discomfort and just currently generalized discomfort. Patient had normal CBC with differential and chemistries. LFTs were normal. Lipase was normal. hCG was negative. Urinalysis was normal. Clinically I suspect a viral gastroenteritis given the vomiting and diarrhea just diffuse cramping. Small amount of blood she had with emesis I suspect may be from a Xochitl-Storm tear and she has had no further bleeding here. I do not feel any imaging is indicated. Patient was given 4 mg of morphine. Patient will be discharged home with a prescription for Zofran and a few [place] for pain. She is advised to return if persistent pain, fever, persistent vomiting, hematemesis, or condition should worsen anyway. Lab Data Labs: Laboratory Results - last 24 hr 07/13/22 07/13/22 07/13/22 11:55 11:55 11:55 WBC 5.8 RBC 4.05 L Hgb 12.3 Hct 37.1 MCV 91.6 MCH 30.4 MCHC 33.2 RDW Std Deviation 44.2 H RDW Coeff of Kim 13.2 Plt Count 388 MPV 9.2 Immature Gran % (Auto) 0.200 Neut % (Auto) 51.3 Lymph % (Auto) 39.4 [place] % (Auto) 7.6 Eos % (Auto) 1.0 Baso % (Auto) 0.5 Absolute Neuts (auto) 3.0 Absolute Lymphs (auto) 2.27 Nucleated RBC % 0 Sodium 138 Potassium 3.7 Chloride 107 Carbon Dioxide 25.0 Anion Gap 6 BUN 10 Creatinine 0.96 Estim Creat Clear Calc 65.73 Est GFR (MDRD) Af Amer 83 Est GFR (MDRD) Non-Af 69 BUN/Creatinine Ratio 10.4 Glucose 97 Calcium 9.2 Total Bilirubin 0.30 AST 17 ALT 23 Alkaline Phosphatase 77 Total Protein 7.5 Albumin 4.0 Globulin 3.5 Albumin/Globulin Ratio 1.1 Lipase 62 L Serum , Qual NEGATIVE Urine Color Urine Clarity Urine pH Ur Specific [place] Urine Protein Urine Glucose (UA) Urine Ketones Urine Occult Blood Urine Nitrite Urine Bilirubin Urine Urobilinogen Ur Leukocyte Esterase Urine RBC Urine WBC Ur Squamous Epith Cells Urine Bacteria Urine Mucus 07/13/22 12:35 WBC RBC Hgb Hct MCV MCH MCHC RDW Std Deviation RDW Coeff of Kim Plt Count MPV Immature Gran % (Auto) Neut % (Auto) Lymph % (Auto) [place] % (Auto) Eos % (Auto) Baso % (Auto) Absolute Neuts (auto) Absolute Lymphs (auto) Nucleated RBC % Sodium Potassium Chloride Carbon Dioxide Anion Gap BUN Creatinine Estim Creat Clear Calc Est GFR (MDRD) Af Amer Est GFR (MDRD) Non-Af BUN/Creatinine Ratio Glucose Calcium Total Bilirubin AST ALT Alkaline Phosphatase Total Protein Albumin Globulin Albumin/Globulin Ratio Lipase Serum , Qual Urine Color Yellow Urine Clarity Clear Urine pH 6.5 Ur Specific [place] 1.015 Urine Protein 15 H Urine Glucose (UA) Normal Urine Ketones 5 H Urine Occult Blood Negative Urine Nitrite Negative Urine Bilirubin Negative Urine Urobilinogen 1 H Ur Leukocyte Esterase 25 H Urine RBC 0 SEEN Urine WBC 0 SEEN Ur Squamous Epith Cells 5-10 SEEN Urine Bacteria 0 SEEN Urine Mucus 0 SEEN Treatment and Re-Evaluation :: Patient treated with Zofran as well as Bentyl. She continues complain of pain and had 4 mg of morphine given IV. On repeat exam her abdomen continues to feel benign although she does describe some discomfort lower abdomen somewhat diffusely. There is no rebound, rigidity, or peritoneal signs. Discharge Plan Triage Chief Complaint: Abd Pain ED Provider: Denny Chan Dx/Rx/DC Orders Clinical Impression: Abdominal pain, Viral gastroenteritis Instructions: ED Abdominal Pain Unkn Cause Fem, ED Gastroenteritis, Viral (Adult) Prescriptions: New hydrocodone-acetaminophen [hydrocodone-acetaminophen] 5-325 mg tablet 1 tab PO Q4H PRN PRN (Reason: Pain) 2 Days Qty: 10 0RF ondansetron [ondansetron] 4 mg tablet,disintegrating 4 mg PO Q8H PRN PRN (Reason: Nausea) Qty: 10 0RF No Action hydroxyzine pamoate 25 mg capsule 25 mg PO QHS escitalopram oxalate [Lexapro] 20 mg tablet 20 mg PO DAILY lamotrigine [Lamictal] 100 mg tablet 200 mg PO DAILY ondansetron 4 mg tablet,disintegrating 4 mg PO Q6H PRN (Reason: nausea and vomiting) Qty: 10 0RF promethazine [promethazine] 25 mg tablet 25 mg PO Q6H PRN PRN (Reason: Nausea) Qty: 10 0RF budesonide 3 mg capsule,delayed,extend.release 9 mg PO DAILY Qty: 45 1RF Primary Care Provider: Michelle Grimm NP Referrals: Michelle Grimm NP, [employer] [Primary Care Provider] - 3-5 Days Disposition Disposition: Home, Self Care
[2022-07-13] MEDS: 0.9% Normal Saline 1,000 ML 125 ML IV (12:02)
[2022-07-13] MEDS: Ondansetron 4 MG/2 ML Vial IV (12:03)
[2022-07-13] MEDS: Dicyclomine 20 MG/2 ML Vial IM (12:03)
[2022-07-13 12:05] LABS: Absolute Lymphocyte Count 2.27 X10^3/uL (0.83-4.51); Basophil# 0.03 X10^3/uL; Basophil% 0.5 % (0-1); Eosinophil# 0.06 X10^3/uL; Hematocrit 37.1 % (37-47); Hemoglobin 12.3 g/dL (12.0-15.0); Lymphocyte # 2.27 X10^3/ul (0.83-4.51); Lymphocyte % 39.4 % (19-41); Mean Corp Hgb Conc 33.2 g/dL (32-36); Mean Corpuscular Hgb 30.4 pg (27.0-32.0); Mean Corpuscular Volume 91.6 fL (81-99); Mean Platelet Vol. 9.2 fl (6.2-12.0); Monocyte# 0.44 X10^3/uL; Monocyte% 7.6 % (0-10); NRBC Flagged by Analyzer 0 % (0-5); Neutrophil # 2.95 X10^3/uL (2.7-7.7); Neutrophil % 51.3 % (47-70); Platelet Count 388 K/mm3 (150-450); RBC Distribution Width CV 13.2 % (11.6-14.6); RBC Distribution Width SD 44.2 fl (35.1-43.9); Red Blood Count 4.05 M/mm3 (4.2-5.4); White Blood Count 5.8 K/mm3 (4.4-11.0)
[2022-07-13 12:15] LABS: Internal QC Validated? YES +Cl - CLEAR BKGD; Pregnancy, Serum, hCG Quali. NEGATIVE Negative
[2022-07-13 12:24] LABS: ALB/GLOB Ratio 1.1 RATIO (0.9-2.4); AST(SGOT) 17 U/L (15-37); Alanine Aminotransfer ALT/SGPT 23 U/L (13-56); Alkaline Phosphatase 77 U/L (45-117); Anion Gap 6 (5-15); BUN 10 mg/dL (7-18); BUN/Creat Ratio 10.4 RATIO (10-20); Calcium,Total 9.2 mg/dL (8.5-10.1); Chloride 107 mmol/L (98-107); Creatinine, Serum 0.96 mg/dL (0.55-1.02); EST Glomerular Filtration Rate 69 mL/min (>60); Est Glom Filt Rate - Afr Amer 83 mL/min (>60); Estimated Creatinine Clearance 65.73 ml/min; Globulin 3.5 g/dL (2.2-4.2); Glucose 97 mg/dL (74-106); Lipase 62 U/L (73-393); Potassium 3.7 mmol/L (3.5-5.1); Protein, Total 7.5 g/dL (6.4-8.2); Sodium Level 138 mmol/L (136-145)
[2022-07-13 12:46] LABS: Bacteria 0 SEEN /hpf (None Seen); Mucous, Urine 0 SEEN /hpf (<or=2+); Red Blood Cells-Urine 0 SEEN /hpf (0-5); White Blood Cells 0 SEEN /hpf (0-5)
[2022-07-13 12:53] LABS: Color, Urine Yellow (Yellow); Glucose, Dipstick Normal (Normal); Ketone-Dipstick 5 mg/dl (Negative); Leukocyte Esterase-Dipstick 25 /ul (Negative); Nitrite-Dipstick Negative (Negative); Occult Blood-Urine Negative /ul (Negative); Protein-Dipstick 15 mg/dl (Negative); Specific Gravity, Urine 1.015 (1.002-1.030); Urine Bilirubin Dipstick Negative (Negative); Urine Clarity Clear (Clear); Urine Urobilinogen 1 mg/dl (Normal); Urine pH 6.5 (5.0 - 8.0)
[2022-07-13 13:00] LABS: Squamous Epithelial Cells - UA 5-10 SEEN /hpf (5-10)
[2022-07-13] MEDS: Morphine 4 MG/ML Syringe IV (13:28)
== END 2022-07-13 13:36 | disposition home or self-care (01) ==
PROVIDERS: Emergency Provider Emergency Medicine; PCP Nurse Practitioner Primary Care; Visit Provider Emergency Medicine
DX: A08.4 Viral intestinal infection, unspecified (principal); F17.210 Nicotine dependence, cigarettes, uncomplicated
CPT/HCPCS: 80053; 81001; 83690; 84703; 85025; 96361; 96372; 96374; 96375; 99283; J7030; A4216; J2405

== ENCOUNTER → 2022-07-25 | Outpatient (CLI) | payer MEDICAID, SELFPAY ==
[2022-07-25 08:26] VITALS: BP 128/83; PULSE 70; RESP 16; O2SAT 98; BMI 34.3
[2022-07-25 10:22] VITALS: BP 126/83; PULSE 61; RESP 16; TEMP 36.2; O2SAT 100
== END | disposition home or self-care (01) ==
LOC: MEDOUTP 08:20
PROVIDERS: PCP Nurse Practitioner Primary Care; Referring Provider Internal Medicine Gastroenterology; Visit Provider Internal Medicine Gastroenterology
DX: K50.90 Crohn's disease, unspecified, without complications (principal)
CPT/HCPCS: 96365; J7050; A4216; J3358

== ENCOUNTER 2022-07-30 07:36 | Emergency (ER) | payer MEDICAID, SELFPAY ==
[2022-07-30 07:38] VITALS: BP 112/83; PULSE 81; RESP 14; TEMP 36.6; O2SAT 99; BMI 33.3
--- NOTE | 2022-07-30 07:59 | EDS_ITS ---
HPI History of Present Illness Chief Complaint: Abd Pain Narrative Narrative: Patient presents with nausea vomiting and diarrhea. She does have a history of Crohn's and 6 days ago she had an infusion of Stelara for her Crohn's, this was her first infusion. Her symptoms started last night. She has no fevers or chills. She has abdominal cramping which is diffuse but mostly in the epigastric region. She has no flank pain. She is denying urinary symptoms. PFSH PFSH Medical History Acute Crohn's disease Anxiety Back problem Bipolar 1 disorder Depression History of blood transfusion Marijuana use Restless legs Smoker Home Medications escitalopram oxalate 20 mg tablet (Lexapro) 20 mg PO DAILY 08/15/21 [History Last Taken Unknown] hydroxyzine pamoate 25 mg capsule 25 mg PO QHS 08/15/21 [History Last Taken Unknown] lamotrigine 100 mg tablet (Lamictal) 200 mg PO DAILY 08/15/21 [History Last Taken Unknown] ondansetron 4 mg disintegrating tablet 4 mg PO Q6H PRN nausea and vomiting #10 tabs 05/16/22 [Rx Last Taken Unknown] budesonide 3 mg capsule,delayed,extended release 9 mg PO DAILY #45 ea 05/20/22 [Rx Last Taken Unknown] promethazine 25 mg tablet 25 mg PO Q6H PRN PRN Nausea #10 TABLETS 05/23/22 [Rx Last Taken Unknown] ondansetron 4 mg disintegrating tablet 4 mg PO Q8H PRN PRN Nausea #10 tabs 07/13/22 [Rx Last Taken Unknown] ustekinumab 130 mg/26 mL intravenous solution (Stelara) 520 mg (104 mL) .Route ONCE #78 mL 07/17/22 [Rx Last Taken Unknown] dicyclomine 20 mg tablet 20 mg PO TID #14 tabs 07/30/22 [Rx Last Taken Unknown] ondansetron 4 mg disintegrating tablet 4 mg PO Q8H PRN PRN Nausea #10 tabs 07/30/22 [Rx Last Taken Unknown] Allergy/AdvReac Type Severity Reaction Status Date / Time amoxicillin Allergy Rash Verified 07/13/22 11:38 tramadol Allergy Rash Verified 07/13/22 11:38 Family History Mother Mental disorder Surgical History Tubal ligation status Social History household members: children Smoking Status: Current every day smoker tobacco type: cigarettes substance use type: does not use ROS ROS ED ROS Narrative Past medical history: Reviewed Medications: Reviewed Social history: Noncontributory Review of systems: All systems negative except as indicated General: No fever. She does not feel lightheaded Eyes: No visual changes ENT: No upper airway congestion, normal voice Neck: No neck pain Cardiovascular: No chest pain Respiratory: No shortness of breath or cough Gastrointestinal: As in HPI Genitourinary: No dysuria Musculoskeletal: Denies myalgias no difficulty with ambulation Skin: No rash Neurological: No memory loss, confusion or any focal weakness EXAM Physical Exam Narrative Exam Narrative: Physical exam General: Patient appears relatively comfortable in the bed. Head: Normocephalic, Atraumatic Eyes: Conjunctiva not pale ENT: Slightly dry mucous membranes Neck: Supple, Nontender, No lymphadenopathy Cardiovascular: Regular rate, Regular rhythm Respiratory: No distress, CTA bilaterally Abdomen: Soft, mild tenderness throughout no specific point tenderness no specific pain at McBurney's. There is no guarding or rebound, quite benign a bdominal exam. Back: Nontender, Normal Inspection. Negative for: CVA tenderness Extremities: Nontender, No edema Skin: Normal color, No rash Neurological: Alert, Normal Strength, Normal Sensation Const Vital Signs: 07/30/22 07:38 Temperature 98 F Temperature Source Temporal Pulse Rate 81 Respiratory Rate 14 Blood Pressure 112/83 H Blood Pressure Mean 92 Pulse Ox 99 Oxygen Delivery Method Room Air MDM MDM MDM Narrative Medical decision making narrative: A. Problems addressed patient has abdominal pain. She also has nausea vomiting diarrhea these were addressed with Bentyl, antinausea medication in the form of Zofran and morphine. I thought about intra-abdominal abscess however she has no fever and a normal white count, I thought about Crohn's exacerbation which is possible however it is also possible the patient has a viral gastroenteritis especially that norovirus has been quite prevalent in this area recently. She does not have any HIMANSHU based on her blood results, no electrolyte abnormalities. She is given IV fluids for dehydration and she improved. I can discharge her with Zofran and Bentyl for home. I thought about a CAT scan however she has Crohn's and she would likely get multiple CAT scans throughout her lifetime at this time I do not believe she meets criteria since she has no fever normal white count and a benign abdominal exam. If anything changes she is to return. She was reevaluated and she felt much better. She does have a history of hyperemesis from cannabinoids, however this usually does not include diarrhea an d she told me this is not similar to her prior hyperemesis episodes Lab Data Labs: Laboratory Results - last 24 hr 07/30/22 07/30/22 08:13 08:13 WBC 5.7 RBC 4.10 L Hgb 13.2 Hct 38.0 MCV 92.7 MCH 32.2 H MCHC 34.7 RDW Std Deviation 44.0 H RDW Coeff of Kim 12.9 Plt Count 361 MPV 9.2 Immature Gran % (Auto) 0.200 Neut % (Auto) 48.5 Lymph % (Auto) 39.7 [place] % (Auto) 9.5 Eos % (Auto) 1.6 Baso % (Auto) 0.5 Absolute Neuts (auto) 2.8 Absolute Lymphs (auto) 2.26 Nucleated RBC % 0 Sodium 141 Potassium 3.6 Chloride 108 H Carbon Dioxide 26.0 Anion Gap 7 BUN 10 Creatinine 0.98 Estim Creat Clear Calc 64.39 Est GFR (MDRD) Af Amer 82 Est GFR (MDRD) Non-Af 68 BUN/Creatinine Ratio 10.2 Glucose 92 Calcium 9.0 Total Bilirubin 0.40 AST 11 L ALT 23 Alkaline Phosphatase 63 Total Protein 7.3 Albumin 3.7 Globulin 3.6 Albumin/Globulin Ratio 1.0 Lipase 52 L Discharge Plan Triage Chief Complaint: Abd Pain ED Provider: Mohsen Pereira Dx/Rx/DC Orders Clinical Impression: Crohn's disease, Abdominal pain, Nausea vomiting and diarrhea, Dehydration Instructions: ED Diet Vomiting Diarrhea Prescriptions: New ondansetron 4 mg tablet,disintegrating 4 mg PO Q8H PRN PRN (Reason: Nausea) Qty: 10 0RF dicyclomine 20 mg tablet 20 mg PO TID Qty: 14 0RF No Action hydroxyzine pamoate 25 mg capsule 25 mg PO QHS escitalopram oxalate [Lexapro] 20 mg tablet 20 mg PO DAILY lamotrigine [Lamictal] 100 mg tablet 200 mg PO DAILY ondansetron 4 mg tablet,disintegrating 4 mg PO Q6H PRN (Reason: nausea and vomiting) Qty: 10 0RF promethazine [promethazine] 25 mg tablet 25 mg PO Q6H PRN PRN (Reason: Nausea) Qty: 10 0RF ondansetron [ondansetron] 4 mg tablet,disintegrating 4 mg PO Q8H PRN PRN (Reason: Nausea) Qty: 10 0RF budesonide 3 mg capsule,delayed,extend.release 9 mg PO DAILY Qty: 45 1RF Stelara 130 mg/26 mL solution 520 mg .ROUTE ONCE Qty: 78 0RF Rx Instructions: If weight day of infusion is >85kg infuse 520mg. If weight is <85kg infuse 390mg. Primary Care Provider: Michelle Grimm NP Referrals: Michelle Grimm NP, PHARMACEUTICAL ANALYST-C [Primary Care Provider] - 3-5 Days Disposition Disposition: Home, Self Care
[2022-07-30 08:18] LABS: Absolute Lymphocyte Count 2.26 X10^3/uL (0.83-4.51); Absolute Neutrophil Count 2.8 X10^3/uL (2.0-7.7); Basophil# 0.03 X10^3/uL; Basophil% 0.5 % (0-1); Eosinophil# 0.09 X10^3/uL; Eosinophils% 1.6 % (0-5); Hemoglobin 13.2 g/dL (12.0-15.0); Lymphocyte # 2.26 X10^3/ul (0.83-4.51); Lymphocyte % 39.7 % (19-41); Mean Corp Hgb Conc 34.7 g/dL (32-36); Mean Corpuscular Hgb 32.2 pg (27.0-32.0); Mean Corpuscular Volume 92.7 fL (81-99); Mean Platelet Vol. 9.2 fl (6.2-12.0); Monocyte# 0.54 X10^3/uL; Monocyte% 9.5 % (0-10); NRBC Flagged by Analyzer 0 % (0-5); Neutrophil # 2.76 X10^3/uL (2.7-7.7); Neutrophil % 48.5 % (47-70); Platelet Count 361 K/mm3 (150-450); RBC Distribution Width CV 12.9 % (11.6-14.6); White Blood Count 5.7 K/mm3 (4.4-11.0)
[2022-07-30] MEDS: Dicyclomine 20 MG/2 ML Vial IM (08:19)
[2022-07-30] MEDS: 0.9% Normal Saline 1,000 ML 1000 ML IV (08:19)
[2022-07-30] MEDS: Ondansetron 4 MG/2 ML Vial IV (08:19)
[2022-07-30 08:35] LABS: AST(SGOT) 11 U/L (15-37); Alanine Aminotransfer ALT/SGPT 23 U/L (13-56); Albumin, Serum 3.7 g/dL (3.2-5.0); Alkaline Phosphatase 63 U/L (45-117); Anion Gap 7 (5-15); BUN 10 mg/dL (7-18); BUN/Creat Ratio 10.2 RATIO (10-20); Chloride 108 mmol/L (98-107); Creatinine, Serum 0.98 mg/dL (0.55-1.02); EST Glomerular Filtration Rate 68 mL/min (>60); Est Glom Filt Rate - Afr Amer 82 mL/min (>60); Estimated Creatinine Clearance 64.39 ml/min; Globulin 3.6 g/dL (2.2-4.2); Glucose 92 mg/dL (74-106); Lipase 52 U/L (73-393); Potassium 3.6 mmol/L (3.5-5.1); Protein, Total 7.3 g/dL (6.4-8.2); Sodium Level 141 mmol/L (136-145)
[2022-07-30] MEDS: Morphine 4 MG/ML Syringe IV (09:13)
[2022-07-30 09:34] VITALS: BP 118/62; PULSE 74; RESP 16; O2SAT 99
== END 2022-07-30 09:36 | disposition home or self-care (01) ==
PROVIDERS: Emergency Provider Emergency Medicine; PCP Nurse Practitioner Primary Care; Visit Provider Emergency Medicine
DX: K50.90 Crohn's disease, unspecified, without complications (principal); E86.0 Dehydration; F17.210 Nicotine dependence, cigarettes, uncomplicated; Z79.899 Other long term (current) drug therapy
CPT/HCPCS: 80053; 83690; 85025; 96361; 96372; 96374; 96375; 99283; J7030; A4216; J2405

== ENCOUNTER 2022-08-11 09:35 | Emergency (ER) | payer MEDICAID, SELFPAY ==
[2022-08-11 09:35] VITALS: BP 172/119; PULSE 67; RESP 14; TEMP 36.4; O2SAT 100; BMI 33.6
--- NOTE | 2022-08-11 10:22 | EDS_ITS ---
HPI HPI - GI History of Present Illness Chief Complaint: Abd Pain Narrative Narrative: 37-year-old female with reported history of Crohn's disease as well as cannabinoid hyperemesis syndrome presenting with abdominal pain which is fairly diffuse. She has nausea and vomiting associated with this. No fevers. Denies urinary complaints. No constipation or diarrhea. She sees Dr. Ojeda and had a Stelara infusion on the . She states that he has done upper and lower endoscopy with him. PFSH PFSH Medical History Acute Crohn's disease Anxiety Back problem Bipolar 1 disorder Depression History of blood transfusion Marijuana use Restless legs Smoker Home Medications escitalopram oxalate 20 mg tablet (Lexapro) 20 mg PO DAILY 08/15/21 [History Last Taken Unknown] hydroxyzine pamoate 25 mg capsule 25 mg PO QHS 08/15/21 [History Last Taken Unknown] lamotrigine 100 mg tablet (Lamictal) 200 mg PO DAILY 08/15/21 [History Last Taken Unknown] promethazine 25 mg tablet 25 mg PO Q6H PRN PRN Nausea #10 TABLETS 05/23/22 [Rx Last Taken Unknown] ondansetron 4 mg disintegrating tablet 4 mg PO Q8H PRN PRN Nausea #10 tabs 07/13/22 [Rx Last Taken Unknown] ustekinumab 130 mg/26 mL intravenous solution (Stelara) 520 mg (104 mL) .Route ONCE #78 mL 07/17/22 [Rx Last Taken Unknown] dicyclomine 20 mg tablet 20 mg PO TID #14 tabs 07/30/22 [Rx Last Taken Unknown] prednisone 10 mg tablet 10 mg PO DIRECTED #42 tabs 08/01/22 [Rx Last Taken Unknown] hydrocodone-acetaminophen 5-325mg 5mg-325mg 1 tab PO Q6H PRN PRN Pain 3 days #10 TABLETS 08/11/22 [Rx Last Taken Unknown] ondansetron 4 mg disintegrating tablet 4 mg PO Q8H PRN PRN Nausea #14 tabs 08/11/22 [Rx Last Taken Unknown] promethazine 25 mg tablet 25 mg PO TID PRN nausea and vomiting #14 tabs 08/11/22 [Rx Last Taken Unknown] Allergy/AdvReac Type Severity Reaction Status Date / Time amoxicillin Allergy Rash Verified 08/11/22 09:37 tramadol Allergy Rash Verified 08/11/22 09:37 Family History Mother Mental disorder Surgical History Tubal ligation status Social History household members: children Smoking Status: Current every day smoker tobacco type: cigarettes substance use type: does not use ROS ROS ED Constitutional Constitutional ED: Denies chills, fever(s) or sweats Eyes Eyes: Denies blurry vision or change in vision ENT ENT ED: Denies ear pain or sore throat Cardiovascular Cardiovascular: Denies chest pain, palpitations or racing heartbeat Respiratory/Chest Respiratory/Chest: Denies cough, dyspnea or sputum Gastrointestinal Gastrointestinal: Reports abdominal pain, nausea and vomiting; Denies constipation or diarrhea Genitourinary Genitourinary ED: Denies dysuria, hematuria or urinary frequency Musculoskeletal Musculoskeletal: Denies arthralgias, myalgias or neck pain Integumentary Denies abscess, Abrasions or rash Neurologic Neurologic: Denies headache(s), paresthesias or weakness Psychiatric Psychiatric: Denies anxiety, depression, suicidal ideation or suicidal thoughts Endocrine Endocrinology: Denies polydipsia or polyuria EXAM Physical Exam Const Vital Signs: 08/11/22 09:35 08/11/22 13:30 Temperature 97.6 F L Temperature Source Temporal Pulse Rate 67 64 Respiratory Rate 14 18 Blood Pressure 172/119 H 175/105 H Blood Pressure Mean 136 128 Pulse Ox 100 99 Oxygen Delivery Method Room Air Room Air Positive well nourished General Appearance ED: NAD HEENT Reports moist mucous membranes normocephalic and atraumatic Eyes PERRL and EOMs intact bilaterally General Eye ED: Negative for pale conjunctiva or scleral icterus Resp normal respiratory effort Cardio regular rate and regular rhythm GI GI Narrative: Diffuse mild tenderness. No rebound or guarding. Back/Spine no CVA tenderness Neuro CN's II-XII intact bilaterally Sensorium / Orientation: alert, oriented to person, oriented to place and oriented to time Motor Exam: strength 5/5 throughout Psych mental status grossly normal Skin no wounds MDM MDM MDM Narrative Medical decision making narrative: Differential includes but is not limited to GERD, gastritis, peptic ulcer disease, appendicitis, diverticulitis, pancreatitis, small bowel obstruction, perforated bowel, viral etiology, Crohn's flare, cannabinoid hyperemesis. CBC to assess white blood cell count, hemoglobin, platelets, differential. CMP to assess liver function, renal function, electrolytes, glucose, anion gap. Lipase to assess for pancreatitis. hCG to assess for . Patient medicated with morphine, Reglan as she states that the Zofran she is been taking has not been helping. She is given a liter of normal saline. CBC shows a normal white blood cell count 5.0. Hemoglobin hematocrit stable platelets are normal. Renal function, electrolytes within normal limits with exception of potassium of 3.2. Patient's AST is 1539, ALT 1223, alkaline phosphatase 186. 31 these are new for her. Her lipase is not outside the normal range at 257 however it is typically 50s and 60s. Patient given a second dose of morphine for pain hospital.Because of the abnormalities I did obtain a right upper quadrant ultrasound. This shows gallstones but no evidence of cholecystitis. Discussed with Dr. Rascon who felt that this was not an obstructive pattern and felt he did not have acute cholecystitis. I also discussed with Dr. Ojeda who thought this was most likely a self-limiting possibly viral. He felt that he could follow this up as an outpatient. Patient was amenable to this. Patient discharged in stable condition. Impression: 1. Abdominal pain 2. Cholelithiasis 3. Nausea/vomiting 4. Acute hepatitis Lab Data Labs: Laboratory Results - last 24 hr 08/11/22 08/11/22 08/11/22 09:51 09:51 09:51 WBC 5.0 RBC 4.02 L Hgb 12.4 Hct 37.2 MCV 92.5 MCH 30.8 MCHC 33.3 RDW Std Deviation 43.8 RDW Coeff of Kim 12.9 Plt Count 346 MPV 10.1 Immature Gran % (Auto) 0.200 Neut % (Auto) 47.7 Lymph % (Auto) 37.2 [place] % (Auto) 11.9 H Eos % (Auto) 2.6 Baso % (Auto) 0.4 Absolute Neuts (auto) 2.4 Absolute Lymphs (auto) 1.85 Nucleated RBC % 0 Sodium 142 Potassium 3.2 L Chloride 107 Carbon Dioxide 29.0 Anion Gap 6 BUN 10 Creatinine 0.92 Estim Creat Clear Calc 68.59 Est GFR (MDRD) Af Amer 88 Est GFR (MDRD) Non-Af 73 BUN/Creatinine Ratio 10.9 Glucose 103 Calcium 8.8 Total Bilirubin 1.00 AST 1539 H ALT 1223 H Alkaline Phosphatase 186 H Total Protein 6.7 Albumin 3.3 Globulin 3.4 Albumin/Globulin Ratio 1.0 Lipase 257 Serum , Qual NEGATIVE Urine Color Urine Clarity Urine pH Ur Specific [place] Urine Protein Urine Glucose (UA) Urine Ketones Urine Occult Blood Urine Nitrite Urine Bilirubin Urine Urobilinogen Ur Leukocyte Esterase Urine RBC Urine WBC Ur Squamous Epith Cells Amorphous Sediment Urine Bacteria Urine Mucus 08/11/22 11:00 WBC RBC Hgb Hct MCV MCH MCHC RDW Std Deviation RDW Coeff of Kim Plt Count MPV Immature Gran % (Auto) Neut % (Auto) Lymph % (Auto) [place] % (Auto) Eos % (Auto) Baso % (Auto) Absolute Neuts (auto) Absolute Lymphs (auto) Nucleated RBC % Sodium Potassium Chloride Carbon Dioxide Anion Gap BUN Creatinine Estim Creat Clear Calc Est GFR (MDRD) Af Amer Est GFR (MDRD) Non-Af BUN/Creatinine Ratio Glucose Calcium Total Bilirubin AST ALT Alkaline Phosphatase Total Protein Albumin Globulin Albumin/Globulin Ratio Lipase Serum , Qual Urine Color Yellow Urine Clarity Sl. Cloudy Urine pH 7.0 Ur Specific [place] 1.015 Urine Protein 30 H Urine Glucose (UA) Normal Urine Ketones Negative Urine Occult Blood Negative Urine Nitrite Negative Urine Bilirubin 3 H Urine Urobilinogen 4 H Ur Leukocyte Esterase 25 H Urine RBC 0 SEEN Urine WBC 0-5 SEEN Ur Squamous Epith Cells 5-10 SEEN Amorphous Sediment 2+ Urine Bacteria 0 SEEN Urine Mucus 0 SEEN Radiography Diagnostic Testing: Clinical Impression(s) from Imaging Studies Gallbladder Ultrasound 08/11/22 11:14 IMPRESSION: 1. Multiple gallstones Electronically Signed: Donaldo Barlow MD at 13:09 EDT Reading Location ID and State: [facility] / [place] , Service support , Discharge Plan Triage Chief Complaint: Abd Pain ED Provider: Ben Mason Dx/Rx/DC Orders Instructions: ED Abdominal Pain Gallstone Poss, ED Hepatitis Cause Unknown ... Prescriptions: New ondansetron 4 mg tablet,disintegrating 4 mg PO Q8H PRN PRN (Reason: Nausea) Qty: 14 0RF promethazine 25 mg tablet 25 mg PO TID PRN (Reason: nausea and vomiting) Qty: 14 0RF hydrocodone-acetaminophen 5-325 mg tablet 1 tab PO Q6H PRN PRN (Reason: Pain) 3 Days Qty: 10 0RF No Action hydroxyzine pamoate 25 mg capsule 25 mg PO QHS escitalopram oxalate [Lexapro] 20 mg tablet 20 mg PO DAILY lamotrigine [Lamictal] 100 mg tablet 200 mg PO DAILY promethazine [promethazine] 25 mg tablet 25 mg PO Q6H PRN PRN (Reason: Nausea) Qty: 10 0RF ondansetron [ondansetron] 4 mg tablet,disintegrating 4 mg PO Q8H PRN PRN (Reason: Nausea) Qty: 10 0RF dicyclomine 20 mg tablet 20 mg PO TID Qty: 14 0RF Stelara 130 mg/26 mL solution 520 mg .ROUTE ONCE Qty: 78 0RF Rx Instructions: If weight day of infusion is >85kg infuse 520mg. If weight is <85kg infuse 390mg. prednisone 10 mg tablet 10 mg PO DIRECTED Qty: 42 0RF Rx Instructions: take 2tabs once a day for two weeks, then one tab daily for two weeks Primary Care Provider: Michelle Grimm NP Referrals: Zeke Rascon MD [Med Staff - Active Staff] - As Needed Friend,DO Kenn [Med Staff - Active Staff] - As soon as possible Michelle Grimm NP, LARGE ANIMAL HUSBANDRY TECHNICIAN-C [Primary Care Provider] - Disposition Disposition: Home, Self Care
[2022-08-11 10:37] LABS: Absolute Lymphocyte Count 1.85 X10^3/uL (0.83-4.51); Absolute Neutrophil Count 2.4 X10^3/uL (2.0-7.7); Basophil# 0.02 X10^3/uL; Basophil% 0.4 % (0-1); Eosinophil# 0.13 X10^3/uL; Eosinophils% 2.6 % (0-5); Hematocrit 37.2 % (37-47); Hemoglobin 12.4 g/dL (12.0-15.0); Lymphocyte # 1.85 X10^3/ul (0.83-4.51); Lymphocyte % 37.2 % (19-41); Mean Corp Hgb Conc 33.3 g/dL (32-36); Mean Corpuscular Hgb 30.8 pg (27.0-32.0); Mean Corpuscular Volume 92.5 fL (81-99); Mean Platelet Vol. 10.1 fl (6.2-12.0); Monocyte# 0.59 X10^3/uL; Monocyte% 11.9 % (0-10); NRBC Flagged by Analyzer 0 % (0-5); Neutrophil # 2.37 X10^3/uL (2.7-7.7); Neutrophil % 47.7 % (47-70); Platelet Count 346 K/mm3 (150-450); RBC Distribution Width CV 12.9 % (11.6-14.6); RBC Distribution Width SD 43.8 fl (35.1-43.9); Red Blood Count 4.02 M/mm3 (4.2-5.4)
[2022-08-11 10:42] LABS: Internal QC Validated? YES +Cl - CLEAR BKGD; Pregnancy, Serum, hCG Quali. NEGATIVE Negative
[2022-08-11] MEDS: Metoclopramide 10 MG/2 ML Vial IV (10:57)
[2022-08-11] MEDS: 0.9% Normal Saline 1,000 ML 1000 ML IV (10:57)
[2022-08-11] MEDS: Morphine 4 MG/ML Syringe IV ×3 (10:57→15:39)
[2022-08-11 11:06] LABS: Bacteria 0 SEEN /hpf (None Seen); Mucous, Urine 0 SEEN /hpf (<or=2+); Red Blood Cells-Urine 0 SEEN /hpf (0-5)
[2022-08-11 11:08] LABS: AST(SGOT) 1539 U/L (15-37); Alanine Aminotransfer ALT/SGPT 1223 U/L (13-56); Albumin, Serum 3.3 g/dL (3.2-5.0); Alkaline Phosphatase 186 U/L (45-117); Anion Gap 6 (5-15); BUN 10 mg/dL (7-18); BUN/Creat Ratio 10.9 RATIO (10-20); Calcium,Total 8.8 mg/dL (8.5-10.1); Chloride 107 mmol/L (98-107); Creatinine, Serum 0.92 mg/dL (0.55-1.02); EST Glomerular Filtration Rate 73 mL/min (>60); Est Glom Filt Rate - Afr Amer 88 mL/min (>60); Estimated Creatinine Clearance 68.59 ml/min; Globulin 3.4 g/dL (2.2-4.2); Glucose 103 mg/dL (74-106); Lipase 257 U/L (73-393); Potassium 3.2 mmol/L (3.5-5.1); Protein, Total 6.7 g/dL (6.4-8.2); Sodium Level 142 mmol/L (136-145)
[2022-08-11 11:10] LABS: Color, Urine Yellow (Yellow); Glucose, Dipstick Normal (Normal); Ketone-Dipstick Negative (Negative); Leukocyte Esterase-Dipstick 25 /ul (Negative); Nitrite-Dipstick Negative (Negative); Occult Blood-Urine Negative /ul (Negative); Protein-Dipstick 30 mg/dl (Negative); Specific Gravity, Urine 1.015 (1.002-1.030); Urine Clarity Sl. Cloudy (Clear); Urine Urobilinogen 4 mg/dl (Normal)
--- NOTE | 2022-08-11 11:14 | US_ITS ---
STUDY: ABDOMINAL ULTRASOUND - RIGHT UPPER QUADRANT REASON FOR VISIT: Female, 37 years old ruq pain TECHNIQUE: Ultrasound evaluation of the right upper quadrant was performed with real-time and static simmons-scale imaging. TECHNICAL QUALITY: Adequate. COMPARISON: CT of abdomen and pelvis dated May 22, 2022 FINDINGS: Liver: The liver measures 16.8 cm. There is normal echogenicity of the liver. The bile ducts are within normal limits. There is hepatic color flow. The direction of portal flow is hepatopetal. There is no demonstrated mass lesion. Gallbladder: Normal distended gallbladder. The gallbladder wall measures 2.4 mm. There is a negative sonographic Smalls''s sign. There is no pericholecystic fluid. There are multiple echogenic structures within the gallbladder, consistent with multiple tiny gallstones. Common Bile Duct (C.B.D.): The common bile duct measures 4.8 mm. Pancreas: Normal size of the head, body and tail of the pancreas. There is normal echogenicity of the pancreas. There is no demonstrated pancreatic mass or cyst. Right Kidney: Normal size of the right kidney. The right kidney measures 11.0 x 4.9 x 5.8 cm. Normal renal cortex. The right cortex measures 1.9 cm. There is no demonstrated renal mass or cyst. There is no right hydronephrosis. US/Gallbladder IMPRESSION: 1. Multiple gallstones Electronically Signed: Donaldo Barlow MD at 13:09 EDT ,
[2022-08-11 11:30] LABS: Urine Bilirubin Dipstick 3 mg/dL (Negative)
[2022-08-11 11:42] LABS: Amorphous Sediment 2+; Squamous Epithelial Cells - UA 5-10 SEEN /hpf (5-10); White Blood Cells 0-5 SEEN /hpf (0-5)
[2022-08-11 13:30] VITALS: BP 175/105; PULSE 64; RESP 18; O2SAT 99
[2022-08-11 15:32] LABS: LDH 916 U/L (84-246)
[2022-08-11 15:35] LABS: CPK Total, Creatine Kinase 49 U/L (26-192)
[2022-08-11 15:44] VITALS: BP 175/94; PULSE 67; RESP 16; O2SAT 99
[2022-08-13 13:08] LABS: HEPATITIS B SURFACE AG Negative (Negative); Hep C Antibodies Non Reactive (Non Reactive); Hepatitis A IgM Antibody Negative (Negative); Hepatitis B Core AB IgM Negative (Negative)
[2022-08-13 16:36] LABS: CMV Acute Antibody IgM < 30.0 AU/mL (0.0-29.9); CMV Antibody IgG > 10.00 U/mL (0.00-0.59); Ceruloplasmin 21.1 mg/dL (19.0-39.0); EBV Acute VCA IgM < 36.0 U/mL (0.0-35.9); EBV Nuclear Antigen IgG > 600.0 U/mL (0.0-17.9)
[2022-08-14 09:39] LABS: Anti-Smooth Muscle ABS 7 Units (0-19); Copper, Serum or Plasma 127 ug/dL (80-158)
== END 2022-08-11 15:45 | disposition home or self-care (01) ==
PROVIDERS: Internal Medicine Gastroenterology; Emergency Provider Student in an Organized Health Care Education/Training Program; PCP Nurse Practitioner Primary Care; Visit Provider Student in an Organized Health Care Education/Training Program
DX: K80.20 Calculus of gallbladder without cholecystitis without obstruction (principal); B17.9 Acute viral hepatitis, unspecified; F17.210 Nicotine dependence, cigarettes, uncomplicated
CPT/HCPCS: 76705; 80053; 80074; 81001; 82390; 82525; 82550; 83516; 83615; 83690; 84703; 85025; 86644; 86645; 86664; 86665; 96361; 96374; 96375; 96376; 99282; J7030; A4216

== ENCOUNTER 2022-08-12 18:30 | Emergency (ER) | payer MEDICAID, SELFPAY ==
[2022-08-12 18:32] VITALS: BP 155/100; PULSE 94; RESP 18; TEMP 36.6; O2SAT 99; BMI 33.7
[2022-08-12 19:12] VITALS: BP 160/109; PULSE 68; RESP 94; O2SAT 98
--- NOTE | 2022-08-12 19:43 | CT_ITS ---
STUDY: CT ABDOMEN AND PELVIS WITH CONTRAST REASON FOR EXAM: Female, 37 years old. abdominal pain RADIATION DOSAGE (If Supplied By Facility): CTDIvol = ( 14.47 ) mGy, DLP = ( 933.36 ) mGycm TECHNIQUE: Transaxial images were obtained from the dome of the diaphragm to the symphysis pubis without oral contrast. IV 100mL [id number]-[id number] was administered. Sagittal and coronal images were reconstructed. Individualized dose optimization techniques were used for this CT. COMPARISON: May 22, 2022 CT abdomen and pelvis FINDINGS: The visualized lung bases are unremarkable. The visualized portions of the heart are within normal limits. Normal liver. Normal gallbladder and extrahepatic biliary system. Normal spleen. Normal pancreas. Normal bilateral adrenal glands. Normal right kidney. Normal left kidney. Normal visualized stomach. Normal small intestine. Normal colon. The appendix is visualized and appears normal. Normal abdominal aorta. Normal inferior vena cava. Normal retroperitoneum. Normal urinary bladder. Uterus normal. Small bilateral ovarian follicular cysts. Bilateral tubal ligation clips. Fat-containing umbilical hernia. Normal osseous structures. CT/Abdomen/Pelvis W IV Cont ONLY IMPRESSION: No acute disease Electronically Signed: Mp García MD at 21:12 EDT Reading Location ID and State: [facility] / [place] , Service support ,
[2022-08-12] MEDS: 0.9% Normal Saline 1,000 ML 1000 ML IV (19:53)
[2022-08-12] MEDS: Metoclopramide 10 MG/2 ML Vial IV (19:54)
[2022-08-12] MEDS: HYDROmorphone 0.5 MG/0.5 ML SYRINGE IV (19:54)
[2022-08-12 20:17] LABS: Absolute Lymphocyte Count 3.16 X10^3/uL (0.83-4.51); Absolute Neutrophil Count 2.8 X10^3/uL (2.0-7.7); Basophil# 0.05 X10^3/uL; Basophil% 0.8 % (0-1); Eosinophil# 0.21 X10^3/uL; Eosinophils% 3.2 % (0-5); Hematocrit 37.5 % (37-47); Hemoglobin 12.6 g/dL (12.0-15.0); Lymphocyte # 3.16 X10^3/ul (0.83-4.51); Lymphocyte % 47.6 % (19-41); Mean Corp Hgb Conc 33.6 g/dL (32-36); Mean Corpuscular Volume 92.4 fL (81-99); Mean Platelet Vol. 10.5 fl (6.2-12.0); Monocyte# 0.38 X10^3/uL; Monocyte% 5.7 % (0-10); NRBC Flagged by Analyzer 0 % (0-5); Neutrophil # 2.81 X10^3/uL (2.7-7.7); Neutrophil % 42.2 % (47-70); Platelet Count 360 K/mm3 (150-450); RBC Distribution Width CV 12.9 % (11.6-14.6); RBC Distribution Width SD 43.7 fl (35.1-43.9); Red Blood Count 4.06 M/mm3 (4.2-5.4); White Blood Count 6.6 K/mm3 (4.4-11.0)
[2022-08-12 20:34] LABS: AST(SGOT) 149 U/L (15-37); Alanine Aminotransfer ALT/SGPT 653 U/L (13-56); Albumin, Serum 3.4 g/dL (3.2-5.0); Alkaline Phosphatase 215 U/L (45-117); Anion Gap 7 (5-15); BUN 6 mg/dL (7-18); BUN/Creat Ratio 6.3 RATIO (10-20); Bilirubin, Direct 0.13 mg/dL (0.00-0.30); Calcium,Total 8.9 mg/dL (8.5-10.1); Chloride 105 mmol/L (98-107); Creatinine, Serum 0.96 mg/dL (0.55-1.02); EST Glomerular Filtration Rate 69 mL/min (>60); Est Glom Filt Rate - Afr Amer 84 mL/min (>60); Estimated Creatinine Clearance 65.73 ml/min; Globulin 3.5 g/dL (2.2-4.2); Glucose 79 mg/dL (74-106); Lipase 130 U/L (73-393); Potassium 3.3 mmol/L (3.5-5.1); Protein, Total 6.9 g/dL (6.4-8.2); Sodium Level 138 mmol/L (136-145)
[2022-08-12 20:47] LABS: Lactic Acid 0.4 mmol/L (0.4-1.9)
--- NOTE | 2022-08-12 21:32 | EDS_ITS ---
HPI HPI - GI History of Present Illness Chief Complaint: Abd Pain Narrative Narrative: 37-year-old female with history of Crohn's disease and cannabinoid hyperemesis syndrome presenting for evaluation of abdominal pain that she has had since yesterday. Patient a work-up in the emergency room yesterday and had an ultrasound right upper quadrant showed gallstones. There was no evidence of acute cholecystitis however. Her LFTs were elevated and I discussed this with Dr. Ojeda and Dr. Rascon who stated is not an obstructive process. She did need to be admitted. Dr. Ojeda ordered some extra lab work for outpatient follow-up. She presents again today with abdominal pain which is diffuse. She states it started after eating whipple and eggs this morning. Its been consistent all day. She had [place] at home and took it and this did not help. Denies any fever. Denies constipation or diarrhea. No urinary or vaginal complaints. PFSH PFSH Medical History Acute Crohn's disease Anxiety Back problem Bipolar 1 disorder Depression History of blood transfusion Marijuana use Restless legs Smoker Home Medications escitalopram oxalate 20 mg tablet (Lexapro) 20 mg PO DAILY 08/15/21 [History Last Taken Unknown] hydroxyzine pamoate 25 mg capsule 25 mg PO QHS 08/15/21 [History Last Taken Unknown] lamotrigine 100 mg tablet (Lamictal) 200 mg PO DAILY 08/15/21 [History Last Taken Unknown] promethazine 25 mg tablet 25 mg PO Q6H PRN PRN Nausea #10 TABLETS 05/23/22 [Rx Last Taken Unknown] ondansetron 4 mg disintegrating tablet 4 mg PO Q8H PRN PRN Nausea #10 tabs 07/13/22 [Rx Last Taken Unknown] ustekinumab 130 mg/26 mL intravenous solution (Stelara) 520 mg (104 mL) .Route ONCE #78 mL 07/17/22 [Rx Last Taken Unknown] dicyclomine 20 mg tablet 20 mg PO TID #14 tabs 07/30/22 [Rx Last Taken Unknown] prednisone 10 mg tablet 10 mg PO DIRECTED #42 tabs 08/01/22 [Rx Last Taken Unknown] hydrocodone-acetaminophen 5-325mg 5mg-325mg 1 tab PO Q6H PRN PRN Pain 3 days #10 TABLETS 08/11/22 [Rx Last Taken Unknown] ondansetron 4 mg disintegrating tablet 4 mg PO Q8H PRN PRN Nausea #14 tabs 08/11/22 [Rx Last Taken Unknown] promethazine 25 mg tablet 25 mg PO TID PRN nausea and vomiting #14 tabs 08/11/22 [Rx Last Taken Unknown] hyoscyamine sulfate 0.125 mg sublingual tablet 0.25 mg PO Q4H PRN abdominal cramping #30 tabs 08/12/22 [Rx Last Taken Unknown] Allergy/AdvReac Type Severity Reaction Status Date / Time amoxicillin Allergy Rash Verified 08/11/22 09:37 tramadol Allergy Rash Verified 08/11/22 09:37 Family History Mother Mental disorder Surgical History Tubal ligation status Social History household members: children Smoking Status: Current every day smoker tobacco type: cigarettes substance use type: does not use ROS ROS ED Constitutional Constitutional ED: Denies chills, fever(s) or sweats Eyes Eyes: Denies blurry vision or change in vision ENT ENT ED: Denies ear pain or sore throat Cardiovascular Cardiovascular: Denies chest pain, palpitations or racing heartbeat Respiratory/Chest Respiratory/Chest: Denies cough, dyspnea or sputum Gastrointestinal Gastrointestinal: Reports abdominal pain and nausea; Denies constipation, d iarrhea or vomiting Genitourinary Genitourinary ED: Denies dysuria, hematuria or urinary frequency Musculoskeletal Musculoskeletal: Denies arthralgias, myalgias or neck pain Integumentary Denies abscess, Abrasions or rash Neurologic Neurologic: Denies headache(s), paresthesias or weakness Psychiatric Psychiatric: Denies anxiety, depression, suicidal ideation or suicidal thoughts Endocrine Endocrinology: Denies polydipsia or polyuria EXAM Physical Exam Const Vital Signs: 08/12/22 18:32 08/12/22 19:12 Temperature 98 F Temperature Source Temporal Pulse Rate 94 68 Respiratory Rate 18 94 H Blood Pressure 155/100 H 160/109 H Blood Pressure Mean 118 126 Pulse Ox 99 98 Oxygen Delivery Method Room Air Room Air Positive well nourished General Appearance ED: NAD; Negative for pallor HEENT Reports moist mucous membranes normocephalic and atraumatic Eyes PERRL General Eye ED: Negative for scleral icterus Resp normal respiratory effort GI GI Narrative: Diffusely tender. Abdomen benign Palpation: Negative for guarding or rigid Neuro CN's II-XII intact bilaterally Sensorium / Orientation: alert and oriented to person Motor Exam: strength 5/5 throughout Psych mental status grossly normal Skin General Skin Exam: Negative for jaundice or pallor MDM MDM MDM Narrative Medical decision making narrative: 69 today with continued abdominal pain after taking [place] today. She states started after breakfast. Is been persistent all day. She does not have any focal right upper quadrant pain on examination. Differential at this point includes but not limited to Crohn's flare, acute cholecystitis, cannabinoid hyperemesis syndrome, pancreatitis. Patient well-appearing. Vital signs are stable. CBC obtained shows no leukocytosis. Hemoglobin adequate stable. Platelets are normal. CMP shows improving LFTs. Her alkaline phosphatase went up mildly to 215, ALT is down to 653, ALT down to 149. Lactic acid normal at 0.4. Lipase negative. Patient was medicated with Dilaudid and Reglan. This did help her pain. CT of the abdomen pelvis today was obtained and is negative for acute findings. I discussed the patient at length with Dr. Ojeda who is her GI doctor. He recommended sending her home and starting Levsin. Patient already previously tried Bentyl. He did not recommend giving her narcotics. Patient to follow-up with Dr. Ojeda. This was discussed with her at length and she is amenable to this. Turn precaution discussed Impression: 1. Abdominal pain 2. Nausea Lab Data Attestation: I reviewed the patient's lab results. Labs: Laboratory Results - last 24 hr 08/12/22 08/12/22 08/12/22 19:20 19:20 20:02 WBC 6.6 RBC 4.06 L Hgb 12.6 Hct 37.5 MCV 92.4 MCH 31.0 MCHC 33.6 RDW Std Deviation 43.7 RDW Coeff of Kim 12.9 Plt Count 360 MPV 10.5 Immature Gran % (Auto) 0.500 Neut % (Auto) 42.2 L Lymph % (Auto) 47.6 H [place] % (Auto) 5.7 Eos % (Auto) 3.2 Baso % (Auto) 0.8 Absolute Neuts (auto) 2.8 Absolute Lymphs (auto) 3.16 Nucleated RBC % 0 Sodium 138 Potassium 3.3 L Chloride 105 Carbon Dioxide 26.0 Anion Gap 7 BUN 6 L Creatinine 0.96 Estim Creat Clear Calc 65.73 Est GFR (MDRD) Af Amer 84 Est GFR (MDRD) Non-Af 69 BUN/Creatinine Ratio 6.3 L Glucose 79 Lactic Acid 0.4 Calcium 8.9 Total Bilirubin 0.30 Direct Bilirubin 0.13 AST 149 H ALT 653 H Alkaline Phosphatase 215 H Total Protein 6.9 Albumin 3.4 Globulin 3.5 Lipase 130 Radiography Diagnostic Testing: Clinical Impression(s) from Imaging Studies Abdomen/Pelvis CT 08/12/22 19:43 IMPRESSION: No acute disease Electronically Signed: Mp García MD at 21:12 EDT Reading Location ID and State: [facility] / [place] , Service support , Discharge Plan Triage Chief Complaint: Abd Pain ED Provider: Ben Mason Dx/Rx/DC Orders Instructions: ED Abdominal Pain Unkn Cause Fem Prescriptions: New hyoscyamine sulfate 0.125 mg tablet, sublingual 0.25 mg PO Q4H PRN (Reason: abdominal cramping) Qty: 30 0RF No Action hydroxyzine pamoate 25 mg capsule 25 mg PO QHS escitalopram oxalate [Lexapro] 20 mg tablet 20 mg PO DAILY lamotrigine [Lamictal] 100 mg tablet 200 mg PO DAILY promethazine [promethazine] 25 mg tablet 25 mg PO Q6H PRN PRN (Reason: Nausea) Qty: 10 0RF ondansetron [ondansetron] 4 mg tablet,disintegrating 4 mg PO Q8H PRN PRN (Reason: Nausea) Qty: 10 0RF dicyclomine 20 mg tablet 20 mg PO TID Qty: 14 0RF ondansetron 4 mg tablet,disintegrating 4 mg PO Q8H PRN PRN (Reason: Nausea) Qty: 14 0RF promethazine 25 mg tablet 25 mg PO TID PRN (Reason: nausea and vomiting) Qty: 14 0RF hydrocodone-acetaminophen 5-325 mg tablet 1 tab PO Q6H PRN PRN (Reason: Pain) 3 Days Qty: 10 0RF Stelara 130 mg/26 mL solution 520 mg .ROUTE ONCE Qty: 78 0RF Rx Instructions: If weight day of infusion is >85kg infuse 520mg. If weight is <85kg infuse 390mg. prednisone 10 mg tablet 10 mg PO DIRECTED Qty: 42 0RF Rx Instructions: take 2tabs once a day for two weeks, then one tab daily for two weeks Primary Care Provider: Michelle Grimm NP Referrals: Michelle Grimm NP, GERONTOLOGICAL NURSE PRACTITIONER-[facility] [Primary Care Provider] - Disposition Disposition: Home, Self Care
== END 2022-08-12 21:37 | disposition home or self-care (01) ==
PROVIDERS: Emergency Provider Student in an Organized Health Care Education/Training Program; PCP Nurse Practitioner Primary Care; Visit Provider Student in an Organized Health Care Education/Training Program
DX: R10.9 Unspecified abdominal pain (principal); K80.20 Calculus of gallbladder without cholecystitis without obstruction; F17.210 Nicotine dependence, cigarettes, uncomplicated
CPT/HCPCS: 74177; 80048; 80076; 83605; 83690; 85025; 96361; 96374; 96375; 99283; J7030; Q9967; A4216

== ENCOUNTER 2022-09-02 09:54 | Emergency (ER) | payer MEDICAID, SELFPAY ==
[2022-09-02 10:04] VITALS: BP 129/94; PULSE 88; RESP 16; TEMP 36.6; O2SAT 100; BMI 33.1
--- NOTE | 2022-09-02 10:10 | EX.ED.GENINJ ---
HPI History of Present Illness Chief Complaint: Nausea/Vomiting Narrative Narrative: 37-year-old female here with nausea vomiting for 1 week. Patient states she has had proximately 5 episodes of nonbloody nonbilious vomitus over the last 24 hours. Also notes diarrhea. Denies any antibiotic use, recent travel or hospitalizations. Notes diffuse abdominal pains going on for several weeks. States she may be having a Crohn's flare. States she recently decreased her use of marijuana. She denies any chest pain or shortness of breath. Denies any urinary complaints, vaginal bleeding or discharge. She is not concerned about STDs at this time. [facility] Medical History Acute Crohn's disease Anxiety Back problem Bipolar 1 disorder Depression History of blood transfusion Marijuana use Restless legs Smoker Home Medications escitalopram oxalate 20 mg tablet (Lexapro) 20 mg PO DAILY 08/15/21 [History Last Taken Unknown] hydroxyzine pamoate 25 mg capsule 25 mg PO QHS 08/15/21 [History Last Taken Unknown] lamotrigine 100 mg tablet (Lamictal) 200 mg PO DAILY 08/15/21 [History Last Taken Unknown] promethazine 25 mg tablet 25 mg PO Q6H PRN PRN Nausea #10 TABLETS 05/23/22 [Rx Last Taken Unknown] ondansetron 4 mg disintegrating tablet 4 mg PO Q8H PRN PRN Nausea #10 tabs 07/13/22 [Rx Last Taken Unknown] dicyclomine 20 mg tablet 20 mg PO TID #14 tabs 07/30/22 [Rx Last Taken Unknown] ondansetron 4 mg disintegrating tablet 4 mg PO Q8H PRN PRN Nausea #14 tabs 08/11/22 [Rx Last Taken Unknown] hyoscyamine sulfate 0.125 mg sublingual tablet 0.25 mg PO Q4H PRN abdominal cramping #30 tabs 08/12/22 [Rx Last Taken Unknown] scopolamine base 1 mg over 3 days transdermal patch 1 patch transdermal Q3D #10 ea 08/15/22 [Rx Last Taken Unknown] ustekinumab 90 mg/mL subcutaneous syringe (Stelara) 90 mg subcut Q8W #1 mL 08/15/22 [Rx Last Taken Unknown] ondansetron 4 mg disintegrating tablet 4 mg PO Q8H PRN PRN Nausea #10 tabs 09/02/22 [Rx Last Taken Unknown] prednisone 50 mg tablet 50 mg PO DAILY 5 days #5 tabs 09/02/22 [Rx Last Taken Unknown] Allergy/AdvReac Type Severity Reaction Status Date / Time amoxicillin Allergy Rash Verified 09/02/22 10:07 tramadol Allergy Rash Verified 09/02/22 10:07 Family History Mother Mental disorder Surgical History Tubal ligation status Social History household members: children Smoking Status: Current every day smoker tobacco type: cigarettes substance use type: does not use ROS ROS ED ROS Narrative Constitutional: Denies fever HEENT: Denies sore throat Neck: Denies neck pain Cardiovascular: Denies chest pain, syncope Respiratory: Denies shortness of breath GI: Endorses nausea and vomiting, abdominal pain : Denies changes in urinary habits Musculoskeletal: Denies muscle or joint pain Neurologic: Denies numbness weakness or loss of sensation Skin denies rash EXAM Physical Exam Narrative Exam Narrative: Nursing triage notes reviewed, Vital signs reviewed Constitutional: please see mdm HENT: MMM Eyes: Pupils equal round and reactive to light, Extraocular muscles intact Neck: No stridor, no JVD, full neck ROM Lungs: Clear to auscultation, No wheezing or rales. No increased work of breathing, no conversational dyspnea, no accessory muscle use, no nasal flaring. No respiratory distress noted Heart: Regular rate and rhythm, No murmurs, No rubs and No gallops, 2+ distal pulses (radial, femoral, posterior tibial) in all extremities Abdomen: Soft, diffuse tenderness noted but no rigidity, rebound or guarding, no positive Smalls sign, no tenderness at McBurney's point no obvious peritoneal signs, no palpable pulsatile abdominal masses, no auscultated abdominal bruit. No suprapubic tenderness : No CVAT Extremities: No edema Neuro: No focal neurological deficits, cranial nerves II through XII intact, 5/5 strength in all extremities. Intact sensation to light touch in all extremities, 2+ reflexes bilateral patella dens. Normal gait. No ataxia. Skin: No rash or lesions noted Const Vital Signs: 09/02/22 10:04 Temperature 97.9 F Temperature Source Temporal Pulse Rate 88 Respiratory Rate 16 Blood Pressure 129/94 H Blood Pressure Mean 105 Pulse Ox 100 Oxygen Delivery Method Room Air MDM MDM MDM Narrative Medical decision making narrative: Chief Complaint: Nausea vomiting CT scan of the abdomen and pelvis from 08/12/2022 shows no acute process External records reviewed: Seen by gastroenterology most recently in June 2022 and diagnosed with cannabis hyperemesis syndrome MDM: The patient was hemodynamically stable, afebrile, nontoxic-appearing. Abdominal exam was benign not consistent with acute surgical pathology. There is no positive Smalls sign, no tenderness at McBurney's point. There is no peritoneal signs, rebound or guarding or significant tenderness noted. I considered the following differential diagnosis: Cannabinoid hyperemesis, dehydration, acute kidney injury, electrolyte abnormality, , Crohn's flare, acute surgical intra-abdominal pathology I considered obtaining a CT scan of the abdomen pelvis given history of Crohn's disease and abdominal pain however patient's symptoms been going on for 1 week, her vitals are stable, exam was benign and not consistent with gallbladder pathology or acute surgical pathology in the abdomen such as perforation or obstruction. I initially did not obtain imaging in lieu of lab results to show signs of endorgan hypoperfusion with anion gap, systemic inflammation with a grossly elevated white blood cell count or signs of hepatobiliary pathology or pancreatitis to suggest gallbladder pathology. Labs were remarkable for NO evidence of systemic inflammation, evidence of elevated anion gap to suggest endorgan hypoperfusion, no significant electrolyte abnormalities, acute kidney injury, no evidence of hepatobiliary pathology. Repeat abdominal exam was benign. Patient is able to tolerate p.o. She was encouraged to continue to take Phenergan, Zofran. She is encouraged follow-up with GI for outpatient evaluation. She was given a prescription for prednisone for decrease inflammation. Factors affecting care: History of Crohn's disease, bipolar 1 disorder Social determinants of health: History of mental health disorder History obtained from others: EMS Shared decision making: I will have a discussion with the patient and or visitors regarding risk/benefits of further testing or admission. They will be made aware of of the risk/benefits inherent in this decision they will be given the opportunity to voice understanding. Consults: None Lab Data Attestation: I reviewed the patient's lab results. Lab results narrative: CBC without leukocytosis, severe anemia, no thrombocytopenia. BMP without evidence of significant electrolyte abnormalities, no anion gap, no acute kidney injury. LFTs show no evidence of hepatobiliary pathology. Lipase is wnl indicating no pancreatic inflammation. Urine negative Labs: Laboratory Results - last 24 hr 09/02/22 09/02/22 09/02/22 10:40 10:40 10:50 WBC 5.1 RBC 4.30 Hgb 13.5 Hct 39.1 MCV 90.9 MCH 31.4 MCHC 34.5 RDW Std Deviation 40.4 RDW Coeff of Kim 12.2 Plt Count 420 MPV 8.9 Immature Gran % (Auto) 0.200 Neut % (Auto) 46.2 L Lymph % (Auto) 41.7 H [place] % (Auto) 9.1 Eos % (Auto) 2.0 Baso % (Auto) 0.8 Absolute Neuts (auto) 2.3 Absolute Lymphs (auto) 2.11 Nucleated RBC % 0 Sodium 139 Potassium 3.6 Chloride 110 H Carbon Dioxide 27.0 Anion Gap 2 L BUN 7 Creatinine 0.94 Estim Creat Clear Calc 67.13 Est GFR (MDRD) Af Amer 86 Est GFR (MDRD) Non-Af 71 BUN/Creatinine Ratio 7.5 L Glucose 92 Calcium 9.2 Total Bilirubin 0.30 Direct Bilirubin 0.08 AST 15 ALT 24 Alkaline Phosphatase 95 Total Protein 7.4 Albumin 3.6 Globulin 3.8 Lipase 18 Urine Test Negative Discharge Plan Triage Chief Complaint: Nausea/Vomiting ED Provider: Laurent Perez Dx/Rx/DC Orders Clinical Impression: Crohn's disease, Abdominal pain, Nausea & vomiting Instructions: Crohns Disease Dc, ED Abdominal Pain Unkn Cause Fem Prescriptions: New prednisone 50 mg tablet 50 mg PO DAILY 5 Days Qty: 5 0RF ondansetron 4 mg tablet,disintegrating 4 mg PO Q8H PRN PRN (Reason: Nausea) Qty: 10 0RF No Action hydroxyzine pamoate 25 mg capsule 25 mg PO QHS escitalopram oxalate [Lexapro] 20 mg tablet 20 mg PO DAILY lamotrigine [Lamictal] 100 mg tablet 200 mg PO DAILY promethazine [promethazine] 25 mg tablet 25 mg PO Q6H PRN PRN (Reason: Nausea) Qty: 10 0RF ondansetron [ondansetron] 4 mg tablet,disintegrating 4 mg PO Q8H PRN PRN (Reason: Nausea) Qty: 10 0RF dicyclomine 20 mg tablet 20 mg PO TID Qty: 14 0RF ondansetron 4 mg tablet,disintegrating 4 mg PO Q8H PRN PRN (Reason: Nausea) Qty: 14 0RF hyoscyamine sulfate 0.125 mg tablet, sublingual 0.25 mg PO Q4H PRN (Reason: abdominal cramping) Qty: 30 0RF Stelara 90 mg/mL syringe 90 mg subcut Q8W Qty: 1 0RF Rx Instructions: Crohn's scopolamine base 1 mg over 3 days patch 3 day 1 patch transdermal Q3D Qty: 10 0RF Stand Alone Forms: ED Work / School Excuse Primary Care Provider: Michelle Grimm NP Referrals: [facility], [Med Staff - Active Staff] - Activity Restrictions/Additional Instructions: Thank you for trusting us with your care today! Please take Zofran as needed for nausea or vomiting. Please take prednisone as prescribed. Please take Tylenol (2 pills, 650 mg), ibuprofen (2 pills, 400 mg) every 6 hours as needed for pain and fever control. Please return to the emergency department if your symptoms change or worsen. Specifically for worsening abdominal pain, intractable vomiting not controlled by Zofran, no bowel movements for greater than 14 days. Please follow with your primary care physician for further outpatient evaluation and management. Disposition Disposition: Home, Self Care
[2022-09-02 10:50] LABS: Absolute Lymphocyte Count 2.11 X10^3/uL (0.83-4.51); Absolute Neutrophil Count 2.3 X10^3/uL (2.0-7.7); Basophil# 0.04 X10^3/uL; Basophil% 0.8 % (0-1); Hematocrit 39.1 % (37-47); Hemoglobin 13.5 g/dL (12.0-15.0); Lymphocyte # 2.11 X10^3/ul (0.83-4.51); Lymphocyte % 41.7 % (19-41); Mean Corp Hgb Conc 34.5 g/dL (32-36); Mean Corpuscular Hgb 31.4 pg (27.0-32.0); Mean Corpuscular Volume 90.9 fL (81-99); Mean Platelet Vol. 8.9 fl (6.2-12.0); Monocyte# 0.46 X10^3/uL; Monocyte% 9.1 % (0-10); NRBC Flagged by Analyzer 0 % (0-5); Neutrophil # 2.34 X10^3/uL (2.7-7.7); Neutrophil % 46.2 % (47-70); Platelet Count 420 K/mm3 (150-450); RBC Distribution Width CV 12.2 % (11.6-14.6); RBC Distribution Width SD 40.4 fl (35.1-43.9); White Blood Count 5.1 K/mm3 (4.4-11.0)
[2022-09-02 10:59] LABS: Internal QC Validated? YES +Cl - CLEAR BKGD; Pregnancy, Urine Negative Negative
[2022-09-02 11:05] LABS: AST(SGOT) 15 U/L (15-37); Alanine Aminotransfer ALT/SGPT 24 U/L (13-56); Albumin, Serum 3.6 g/dL (3.2-5.0); Alkaline Phosphatase 95 U/L (45-117); Anion Gap 2 (5-15); BUN 7 mg/dL (7-18); BUN/Creat Ratio 7.5 RATIO (10-20); Bilirubin, Direct 0.08 mg/dL (0.00-0.30); Calcium,Total 9.2 mg/dL (8.5-10.1); Chloride 110 mmol/L (98-107); Creatinine, Serum 0.94 mg/dL (0.55-1.02); EST Glomerular Filtration Rate 71 mL/min (>60); Est Glom Filt Rate - Afr Amer 86 mL/min (>60); Estimated Creatinine Clearance 67.13 ml/min; Globulin 3.8 g/dL (2.2-4.2); Glucose 92 mg/dL (74-106); Lipase 18 U/L (13-75); Potassium 3.6 mmol/L (3.5-5.1); Protein, Total 7.4 g/dL (6.4-8.2); Sodium Level 139 mmol/L (136-145)
[2022-09-02] MEDS: 0.9% Normal Saline 1,000 ML 1000 ML IV (11:13)
[2022-09-02] MEDS: Ketorolac 15 MG/ML Vial IV (11:13)
[2022-09-02] MEDS: Ondansetron 4 MG/2 ML Vial IV (11:13)
[2022-09-02] MEDS: oxyCODONE 5 MG Tablet PO (13:14)
[2022-09-02 13:22] VITALS: BP 119/72; PULSE 78; RESP 16; O2SAT 97
== END 2022-09-02 13:23 | disposition home or self-care (01) ==
PROVIDERS: Emergency Provider Emergency Medicine; PCP Nurse Practitioner Primary Care; Visit Provider Emergency Medicine
DX: K50.90 Crohn's disease, unspecified, without complications (principal); F31.9 Bipolar disorder, unspecified; F17.210 Nicotine dependence, cigarettes, uncomplicated; Z79.52 Long term (current) use of systemic steroids
CPT/HCPCS: 80048; 80076; 81025; 83690; 85025; 96361; 96374; 96375; 99284; J7030; A4216; J2405

== ENCOUNTER 2022-09-10 01:47 | Emergency (ER) | payer MEDICAID, SELFPAY ==
[2022-09-10 01:48] VITALS: BP 153/77; PULSE 100; RESP 18; TEMP 36.4; O2SAT 100; BMI 33.9
--- NOTE | 2022-09-10 02:16 | RAD_ITS ---
INDICATION: chest pain EXAMINATION/TECHNIQUE: X-RAY - XR Chest 2 Views COMPARISON: 05/13/2021. FINDINGS: LINES/DEVICES: None. LUNGS: No consolidation or florid edema. Trace effusions on lateral view.. No pneumothorax. MEDIASTINUM AND CARDIOVASCULAR STRUCTURES: Cardiac silhouette not enlarged. BONES AND SOFT TISSUES: Unremarkable. Lateral curvature of the thoracolumbar spine. RAD/Chest PA and Lateral IMPRESSION: Trace posterior effusions or atelectasis on lateral view. No radiographic evidence of consolidative pneumonia or florid edema. Electronically Signed: Campbell Siegel MD at 3:08 EDT ,
[2022-09-10] MEDS: Haloperidol Lactate 5 MG/ML Vial IV (02:30)
[2022-09-10] MEDS: 0.9% Normal Saline 1,000 ML 999 ML IV (02:30)
[2022-09-10 02:32] LABS: Absolute Lymphocyte Count 1.35 X10^3/uL (0.83-4.51); Absolute Neutrophil Count 8.1 X10^3/uL (2.0-7.7); Basophil# 0.02 X10^3/uL; Basophil% 0.2 % (0-1); Eosinophil# 0.01 X10^3/uL; Eosinophils% 0.1 % (0-5); Hematocrit 42.1 % (37-47); Hemoglobin 14.2 g/dL (12.0-15.0); Lymphocyte # 1.35 X10^3/ul (0.83-4.51); Lymphocyte % 13.6 % (19-41); Mean Corp Hgb Conc 33.7 g/dL (32-36); Mean Corpuscular Hgb 31.6 pg (27.0-32.0); Mean Corpuscular Volume 93.6 fL (81-99); Mean Platelet Vol. 9.7 fl (6.2-12.0); Monocyte# 0.38 X10^3/uL; Monocyte% 3.8 % (0-10); NRBC Flagged by Analyzer 0 % (0-5); Neutrophil # 8.08 X10^3/uL (2.7-7.7); Neutrophil % 81.5 % (47-70); Platelet Count 449 K/mm3 (150-450); RBC Distribution Width CV 12.6 % (11.6-14.6); White Blood Count 9.9 K/mm3 (4.4-11.0)
[2022-09-10 02:37] LABS: Internal QC Validated? YES +Cl - CLEAR BKGD; Pregnancy, Serum, hCG Quali. NEGATIVE Negative
[2022-09-10 02:47] VITALS: BP 133/89; PULSE 87; RESP 18; O2SAT 97
[2022-09-10 02:47] LABS: AST(SGOT) 358 U/L (15-37); Alanine Aminotransfer ALT/SGPT 224 U/L (13-56); Alkaline Phosphatase 159 U/L (45-117); Anion Gap 8 (5-15); BUN 13 mg/dL (7-18); Bilirubin, Direct 0.16 mg/dL (0.00-0.30); Calcium,Total 9.1 mg/dL (8.5-10.1); Chloride 101 mmol/L (98-107); Creatinine, Serum 1.08 mg/dL (0.55-1.02); EST Glomerular Filtration Rate 60 mL/min (>60); Est Glom Filt Rate - Afr Amer 73 mL/min (>60); Estimated Creatinine Clearance 58.42 ml/min; Globulin 3.8 g/dL (2.2-4.2); Glucose 117 mg/dL (74-106); Lipase 29 U/L (13-75); Potassium 3.7 mmol/L (3.5-5.1); Protein, Total 7.8 g/dL (6.4-8.2); Sodium Level 139 mmol/L (136-145); Troponin-I HS 5 pg/mL (3.0-54.0)
[2022-09-10 03:08] VITALS: BP 121/86; PULSE 80; RESP 18; O2SAT 97
--- NOTE | 2022-09-10 03:27 | EDS_ITS ---
HPI History of Present Illness Chief Complaint: Chest Pain Narrative Narrative: Patient is a 37-year-old female with past medical history of Crohn's disease. She states that a few hours ago she began with generalized upper abdominal discomfort with radiation into her mid chest and bouts of nausea and vomiting. She does have a history of Crohn's disease but states there is been no increase in loose stool/diarrhea. She denies any known sick contacts. She states she has history of hypertension and smokes but otherwise does not have any family history of cardiac disease at a young age. She also denies any recent travel or surgery or history of DVT/PE. Patient states she is unsure if this is related to her chronic abdominal issues or possible cardiac in nature and therefore comes in for evaluation. PFSH PFSH Medical History Acute Crohn's disease Anxiety Back problem Bipolar 1 disorder Depression History of blood transfusion Marijuana use Restless legs Smoker Home Medications escitalopram oxalate 20 mg tablet (Lexapro) 20 mg PO DAILY 08/15/21 [History Last Taken Unknown] hydroxyzine pamoate 25 mg capsule 25 mg PO QHS 08/15/21 [History Last Taken Unkn own] lamotrigine 100 mg tablet (Lamictal) 200 mg PO DAILY 08/15/21 [History Last Taken Unknown] promethazine 25 mg tablet 25 mg PO Q6H PRN PRN Nausea #10 TABLETS 05/23/22 [Rx Last Taken Unknown] ondansetron 4 mg disintegrating tablet 4 mg PO Q8H PRN PRN Nausea #10 tabs 07/13/22 [Rx Last Taken Unknown] dicyclomine 20 mg tablet 20 mg PO TID #14 tabs 07/30/22 [Rx Last Taken Unknown] ondansetron 4 mg disintegrating tablet 4 mg PO Q8H PRN PRN Nausea #14 tabs 08/11/22 [Rx Last Taken Unknown] hyoscyamine sulfate 0.125 mg sublingual tablet 0.25 mg PO Q4H PRN abdominal cramping #30 tabs 08/12/22 [Rx Last Taken Unknown] scopolamine base 1 mg over 3 days transdermal patch 1 patch transdermal Q3D #10 ea 08/15/22 [Rx Last Taken Unknown] ustekinumab 90 mg/mL subcutaneous syringe (Stelara) 90 mg subcut Q8W #1 mL 08/15/22 [Rx Last Taken Unknown] ondansetron 4 mg disintegrating tablet 4 mg PO Q8H PRN PRN Nausea #10 tabs 09/02/22 [Rx Last Taken Unknown] prednisone 50 mg tablet 50 mg PO DAILY 5 days #5 tabs 09/02/22 [Rx Last Taken Unknown] Allergy/AdvReac Type Severity Reaction Status Date / Time amoxicillin Allergy Rash Verified 09/10/22 01:51 tramadol Allergy Rash Verified 09/10/22 01:51 Family History Mother Mental disorder Surgical History Tubal ligation status Social History household members: children Smoking Status: Current every day smoker tobacco type: cigarettes substance use type: does not use ROS ROS ED Constitutional Constitutional ED: Denies chills or fever(s) ENT ENT ED: Denies sore throat Cardiovascular Cardiovascular: Reports chest pain; Denies palpitations or racing heartbeat Respiratory/Chest Respiratory/Chest: Denies cough or dyspnea Gastrointestinal Gastrointestinal: Reports abdominal pain, nausea and vomiting; Denies diarrhea Genitourinary Genitourinary ED: Denies dysuria Musculoskeletal Musculoskeletal: Denies back pain or myalgias Integumentary Denies rash Neurologic Neurologic: Denies headache(s) Hematologic/Lymphatic Hematologic/Lymphatic: Denies easy bleeding or easy bruising EXAM Physical Exam Const Vital Signs: 09/10/22 01:48 09/10/22 01:48 09/10/22 02:47 Temperature 97.5 F L Temperature Source Temporal Pulse Rate 100 87 Respiratory Rate 18 18 Respiratory Effort Normal Blood Pressure 153/77 H 133/89 H Blood Pressure Mean 102 103 Pulse Ox 100 97 Oxygen Delivery Method Room Air Room Air 09/10/22 03:08 Temperature Temperature Source Pulse Rate 80 Respiratory Rate 18 Respiratory Effort Blood Pressure 121/86 H Blood Pressure Mean 97 Pulse Ox 97 Oxygen Delivery Method Room Air Positive well nourished and well developed General Appearance ED: well developed HEENT Reports moist mucous membranes HEENT Narrative: No signs of infection noted in the posterior pharynx Eyes PERRL and EOMs intact bilaterally General Eye ED: Negative for scleral icterus Neck supple Neck Narrative: No nuchal rigidity or meningeal signs noted Chest Wall palpation of chest normal Chest Narrative: No bony deformity or crepitance Resp normal respiratory effort and clear to auscultation bilaterally Cardio regular rate and regular rhythm Rate: other Other Details: Radial pulses are plus 2 out of 4 bilaterally are equal and symmetric GI non-distended GI Narrative: Abdomen is soft and nondistended with hyperactive bowel sounds. Patient has pain with palpation in the midepigastric and right upper quadrant region without voluntary guarding or rigidity. No pulsatile mass. Negative Smalls sign Auscultation: hyperactive bowel sounds Palpation: soft Back/Spine no CVA tenderness Extremity normal to inspection Extremity Narrative: No asymmetric edema no pitting edema negative Homans' sign bilaterally Neuro oriented x3 and CN's II-XII intact bilaterally Sensorium / Orientation: alert Psych mental status grossly normal Skin no rashes or lesions noted General Skin Exam: Negative for jaundice MDM MDM MDM Narrative Medical decision making narrative: Patient presented to the ER afebrile with a soft nonsurgical abdomen. Therefore I felt no need for emergent CT or ultrasound. She also has atypical cardiac pain and is low risk but as she reported pain radiating up into her chest a cardiac work-up was added. Differential diagnosis includes acute coronary syndrome biliary colic pancreatitis Crohn's exacerbation gastroenteritis or pneumonia. Blood work revealed elevation to her AST ALT and alk phos which chart review reveals has been elevated in the past month and been further evaluated with CT scan and ultrasound. There is also been consultation with gastroenterology over these findings and has been recommended that this be treated on outpatient basis as the images and exam do not indicate acute obstruction. Patient's initial troponin was 5 and as she is low risk for CAD and this is atypical in nature I do not feel there is need for delta. Chest x- ray did not show any obvious pneumonia or widening of the mediastinum either. After patient was treated with Haldol as well as IV fluid she had resolution of symptoms. This indicates that presentation was most likely related to cannabis hyperemesis syndrome as patient does admit to smoking marijuana. Therefore at this time with resolution of symptoms and negative work-up patient is otherwise safe for discharge History & Record Review Discussion w/independent historian: Patient Lab Data Attestation: I reviewed the patient's lab results. Labs: Laboratory Results - last 24 hr 09/10/22 09/10/22 09/10/22 01:50 01:50 01:50 WBC 9.9 RBC 4.50 Hgb 14.2 Hct 42.1 MCV 93.6 MCH 31.6 MCHC 33.7 RDW Std Deviation 43.0 RDW Coeff of Kim 12.6 Plt Count 449 MPV 9.7 Immature Gran % (Auto) 0.800 Neut % (Auto) 81.5 H Lymph % (Auto) 13.6 L [place] % (Auto) 3.8 Eos % (Auto) 0.1 Baso % (Auto) 0.2 Absolute Neuts (auto) 8.1 H Absolute Lymphs (auto) 1.35 Nucleated RBC % 0 Sodium 139 Potassium 3.7 Chloride 101 Carbon Dioxide 30.0 Anion Gap 8 BUN 13 Creatinine 1.08 H Estim Creat Clear Calc 58.42 Est GFR (MDRD) Af Amer 73 Est GFR (MDRD) Non-Af 60 BUN/Creatinine Ratio 12.0 Glucose 117 H Calcium 9.1 Total Bilirubin 0.30 Direct Bilirubin 0.16 AST 358 H ALT 224 H Alkaline Phosphatase 159 H Troponin I High Sens 5 Total Protein 7.8 Albumin 4.0 Globulin 3.8 Lipase 29 Serum , Qual NEGATIVE Radiography Diagnostic Testing: Clinical Impression(s) from Imaging Studies Chest X-Ray 09/10/22 02:16 IMPRESSION: Trace posterior effusions or atelectasis on lateral view. No radiographic evidence of consolidative pneumonia or florid edema. Electronically Signed: Campbell Siegel MD at 3:08 EDT Reading Location ID and State: [facility] / [place] Tel , Service support , Chest x-ray as interpreted by the emergency medicine physician reveals no acute infiltrate pneumothorax or pleural effusion Discharge Plan Triage Chief Complaint: Chest Pain ED Provider: Lul Lee Dx/Rx/DC Orders Clinical Impression: Abdominal pain, Cholelithiasis, Cannabis hyperemesis syndrome concurrent with and due to cannabis abuse, Crohn's disease Instructions: Abdominal Pain, Gallstones Dc Prescriptions: No Action hydroxyzine pamoate 25 mg capsule 25 mg PO QHS escitalopram oxalate [Lexapro] 20 mg tablet 20 mg PO DAILY lamotrigine [Lamictal] 100 mg tablet 200 mg PO DAILY promethazine [promethazine] 25 mg tablet 25 mg PO Q6H PRN PRN (Reason: Nausea) Qty: 10 0RF ondansetron [ondansetron] 4 mg tablet,disintegrating 4 mg PO Q8H PRN PRN (Reason: Nausea) Qty: 10 0RF dicyclomine 20 mg tablet 20 mg PO TID Qty: 14 0RF ondansetron 4 mg tablet,disintegrating 4 mg PO Q8H PRN PRN (Reason: Nausea) Qty: 14 0RF hyoscyamine sulfate 0.125 mg tablet, sublingual 0.25 mg PO Q4H PRN (Reason: abdominal cramping) Qty: 30 0RF prednisone 50 mg tablet 50 mg PO DAILY 5 Days Qty: 5 0RF ondansetron 4 mg tablet,disintegrating 4 mg PO Q8H PRN PRN (Reason: Nausea) Qty: 10 0RF Stelara 90 mg/mL syringe 90 mg subcut Q8W Qty: 1 0RF Rx Instructions: Crohn's scopolamine base 1 mg over 3 days patch 3 day 1 patch transdermal Q3D Qty: 10 0RF Primary Care Provider: Michelle Grimm NP Referrals: Jani Bravo MD [Med Staff - Active Staff] - PodlogMichelle turcios NP, [facility] [Primary Care Provider] - Activity Restrictions/Additional Instructions: Please follow-up with Dr. Ojeda/GI and/or general surgery for repeat evaluation and return to the ER should you have any further concerns Disposition Disposition: Home, Self Care
[2022-09-10 03:37] VITALS: BP 124/68; PULSE 71; RESP 15; O2SAT 98
== END 2022-09-10 03:37 | disposition home or self-care (01) ==
PROVIDERS: Emergency Provider Emergency Medicine; PCP Nurse Practitioner Primary Care; Visit Provider Emergency Medicine
DX: R11.2 Nausea with vomiting, unspecified (principal); F31.9 Bipolar disorder, unspecified; K50.90 Crohn's disease, unspecified, without complications; F12.10 Cannabis abuse, uncomplicated; K80.20 Calculus of gallbladder without cholecystitis without obstruction; I10 Essential (primary) hypertension; F17.210 Nicotine dependence, cigarettes, uncomplicated; Z79.899 Other long term (current) drug therapy
CPT/HCPCS: 71046; 80048; 80076; 83690; 84484; 84703; 85025; 93005; 96361; 96374; 99284; J7030; A4216

== ENCOUNTER → 2022-09-27 | Outpatient (CLI) | payer MEDICAID, SELFPAY ==
[2022-09-27 09:52] LABS: Absolute Neutrophil Count 3.2 X10^3/uL (2.0-7.7); Basophil# 0.04 X10^3/uL; Basophil% 0.6 % (0-1); Eosinophil# 0.14 X10^3/uL; Eosinophils% 2.2 % (0-5); Hematocrit 40.1 % (37-47); Hemoglobin 13.5 g/dL (12.0-15.0); Lymphocyte % 38.9 % (19-41); Mean Corp Hgb Conc 33.7 g/dL (32-36); Mean Corpuscular Hgb 31.5 pg (27.0-32.0); Mean Corpuscular Volume 93.7 fL (81-99); Mean Platelet Vol. 9.3 fl (6.2-12.0); Monocyte# 0.52 X10^3/uL; Monocyte% 8.1 % (0-10); NRBC Flagged by Analyzer 0 % (0-5); Neutrophil % 49.9 % (47-70); Platelet Count 394 K/mm3 (150-450); RBC Distribution Width CV 13.3 % (11.6-14.6); RBC Distribution Width SD 45.4 fl (35.1-43.9); Red Blood Count 4.28 M/mm3 (4.2-5.4); White Blood Count 6.4 K/mm3 (4.4-11.0)
[2022-09-27 09:55] LABS: Erythrocyte Sedimentation Rate 21 mm/hr (0-30)
[2022-09-27 10:29] LABS: ALB/GLOB Ratio 0.9 RATIO (0.9-2.4); AST(SGOT) 12 U/L (15-37); Alanine Aminotransfer ALT/SGPT 34 U/L (13-56); Albumin, Serum 3.7 g/dL (3.2-5.0); Alkaline Phosphatase 119 U/L (45-117); Anion Gap 7 (5-15); BUN 8 mg/dL (7-18); BUN/Creat Ratio 8.4 RATIO (10-20); CRP 7.77 mg/L (0.0-3.0); Chloride 106 mmol/L (98-107); Creatinine, Serum 0.95 mg/dL (0.55-1.02); EST Glomerular Filtration Rate 70 mL/min (>60); Est Glom Filt Rate - Afr Amer 84 mL/min (>60); Globulin 3.9 g/dL (2.2-4.2); Glucose 109 mg/dL (74-106); Potassium 3.8 mmol/L (3.5-5.1); Protein, Total 7.6 g/dL (6.4-8.2); Sodium Level 136 mmol/L (136-145)
== END | disposition home or self-care (01) ==
PROVIDERS: PCP Nurse Practitioner Primary Care; Referring Provider Internal Medicine Gastroenterology; Visit Provider Internal Medicine Gastroenterology
DX: K50.90 Crohn's disease, unspecified, without complications (principal)
CPT/HCPCS: 36415; 80053; 85025; 85652; 86140

== ENCOUNTER 2022-10-18 14:25 | Emergency (ER) | payer MEDICAID, SELFPAY ==
[2022-10-18 14:26] VITALS: BP 149/96; RESP 100; TEMP 36.6; O2SAT 16; BMI 33.5
[2022-10-18 14:46] LABS: Absolute Lymphocyte Count 3.36 X10^3/uL (0.83-4.51); Absolute Neutrophil Count 3.8 X10^3/uL (2.0-7.7); Basophil# 0.05 X10^3/uL; Basophil% 0.6 % (0-1); Eosinophil# 0.07 X10^3/uL; Eosinophils% 0.9 % (0-5); Hematocrit 38.7 % (37-47); Lymphocyte # 3.36 X10^3/ul (0.83-4.51); Lymphocyte % 42.5 % (19-41); Mean Corp Hgb Conc 33.6 g/dL (32-36); Mean Corpuscular Volume 92.1 fL (81-99); Mean Platelet Vol. 9.2 fl (6.2-12.0); Monocyte# 0.63 X10^3/uL; NRBC Flagged by Analyzer 0 % (0-5); Neutrophil # 3.77 X10^3/uL (2.7-7.7); Neutrophil % 47.6 % (47-70); Platelet Count 391 K/mm3 (150-450); RBC Distribution Width CV 13.2 % (11.6-14.6); RBC Distribution Width SD 44.1 fl (35.1-43.9); White Blood Count 7.9 K/mm3 (4.4-11.0)
[2022-10-18 14:57] LABS: Internal QC Validated? YES +Cl - CLEAR BKGD; Pregnancy, Serum, hCG Quali. NEGATIVE Negative
[2022-10-18 15:10] LABS: ALB/GLOB Ratio 0.9 RATIO (0.9-2.4); AST(SGOT) 52 U/L (15-37); Alanine Aminotransfer ALT/SGPT 42 U/L (13-56); Albumin, Serum 3.6 g/dL (3.2-5.0); Alkaline Phosphatase 108 U/L (45-117); Anion Gap 5 (5-15); BUN 12 mg/dL (7-18); BUN/Creat Ratio 11.9 RATIO (10-20); Calcium,Total 9.3 mg/dL (8.5-10.1); Chloride 107 mmol/L (98-107); Creatinine, Serum 1.01 mg/dL (0.55-1.02); EST Glomerular Filtration Rate 65 mL/min (>60); Est Glom Filt Rate - Afr Amer 79 mL/min (>60); Estimated Creatinine Clearance 62.47 ml/min; Globulin 3.8 g/dL (2.2-4.2); Glucose 104 mg/dL (74-106); Potassium 3.7 mmol/L (3.5-5.1); Protein, Total 7.4 g/dL (6.4-8.2); Sodium Level 138 mmol/L (136-145)
[2022-10-18 15:54] LABS: Bacteria 0 SEEN /hpf (None Seen); Mucous, Urine 0 SEEN /hpf (<or=2+); Red Blood Cells-Urine 0 SEEN /hpf (0-5); Squamous Epithelial Cells - UA 0 SEEN /hpf (5-10); White Blood Cells 0 SEEN /hpf (0-5)
[2022-10-18 15:55] LABS: Color, Urine Yellow (Yellow); Glucose, Dipstick Normal (Normal); Ketone-Dipstick Negative (Negative); Leukocyte Esterase-Dipstick 25 /ul (Negative); Nitrite-Dipstick Negative (Negative); Occult Blood-Urine Negative /ul (Negative); Protein-Dipstick Negative (Negative); Specific Gravity, Urine 1.015 (1.002-1.030); Urine Bilirubin Dipstick Negative (Negative); Urine Clarity Sl. Cloudy (Clear); Urine Urobilinogen Normal (Normal)
--- NOTE | 2022-10-18 16:10 | EDS_ITS ---
HPI History of Present Illness Chief Complaint: Abd Pain Detail of Chief Complaint: Right upper quadrant pain radiating through to her back Informant: patient Onset/Context/Timing Onset: Today (This morning after eating breakfast which consisted of eggs and toast with jelly) Context: Sudden Onset Timing: Continuous and Waxes and wanes Quality: Crampy Location: Right upper quadrant upper gastro Current Severity: Mild Maximum Severity: Severe Worsened by: Movement and palpation Relieved by: Nothing Associated Symptoms Associated Symptoms: Nausea and radiation to the back Narrative Narrative: Patient is a 37-year-old woman with a BMI of 33.5 who presents with right upper quadrant pain rating to her back and epigastric pain that started this morning after eating breakfast. She did not eat lunch. She does report nausea without vomiting diarrhea. She denies fever, chills or night sweats. Denies weight gain or weight loss. She denies headache, visual, ocular auditory symptoms. Denies rhinorrhea, congestion, sore throat or cough. She denies chest discomfort. She denies black or maroon-colored stool. She does admit to smoking, drinking and marijuana use. She states she only uses a little bit of marijuana . Review of prior records indicates patient's been in the emergency department for cannabis hyperemesis syndrome. Patient was seen on August of this year and diagnosed with cholelithiasis. She states she was not taken to the OR because it was concerned she had mono. Review of records indicates that she did not have a Monospot and there was no atypical lymphs noted on the CBC. Patient denies dysuria, frequency, urgency or hematuria. Patient denies anorexia. Patient denies history of renal or ureteral calculi. There is no history of. Prior similar symptoms: Yes Recent Illness/Hospitalization: No PFSH PFSH Medical History Acute Crohn's disease Anxiety Back problem Bipolar 1 disorder Depression History of blood transfusion Marijuana use Restless legs Smoker Home Medications escitalopram oxalate 20 mg tablet (Lexapro) 20 mg PO DAILY 08/15/21 [History Last Taken Unknown] hydroxyzine pamoate 25 mg capsule 25 mg PO QHS 08/15/21 [History Last Taken Unknown] lamotrigine 100 mg tablet (Lamictal) 200 mg PO DAILY 08/15/21 [History Last Taken Unknown] promethazine 25 mg tablet 25 mg PO Q6H PRN PRN Nausea #10 TABLETS 05/23/22 [Rx Last Taken Unknown] ondansetron 4 mg disintegrating tablet 4 mg PO Q8H PRN PRN Nausea #10 tabs 07/13/22 [Rx Last Taken Unknown] dicyclomine 20 mg tablet 20 mg PO TID #14 tabs 07/30/22 [Rx Last Taken Unknown] ondansetron 4 mg disintegrating tablet 4 mg PO Q8H PRN PRN Nausea #14 tabs 08/11/22 [Rx Last Taken Unknown] hyoscyamine sulfate 0.125 mg sublingual tablet 0.25 mg PO Q4H PRN abdominal cramping #30 tabs 08/12/22 [Rx Last Taken Unknown] ondansetron 4 mg disintegrating tablet 4 mg PO Q8H PRN PRN Nausea #10 tabs 09/02/22 [Rx Last Taken Unknown] prednisone 50 mg tablet 50 mg PO DAILY 5 days #5 tabs 09/02/22 [Rx Last Taken Unknown] scopolamine base 1 mg over 3 days transdermal patch 1 patch transdermal Q3D #10 ea 09/23/22 [Rx Last Taken Unknown] ustekinumab 90 mg/mL subcutaneous syringe (Stelara) 90 mg subcut Q8W #1 mL 09/30/22 [Rx Last Taken Unknown] hydrocodone-acetaminophen 5-325mg 5mg-325mg 1 tab PO Q6H PRN PRN Pain 2 days #6 TABLETS 10/18/22 [Rx Last Taken Unknown] Allergy/AdvReac Type Severity Reaction Status Date / Time amoxicillin Allergy Rash Verified 10/18/22 14:27 tramadol Allergy Rash Verified 10/18/22 14:27 Family History Mother Mental disorder Surgical History Tubal ligation status Social History household members: children Smoking Status: Current every day smoker tobacco type: cigarettes substance use type: does not use ROS ROS ED Constitutional Constitutional ED: Denies chills, fever(s), subjective, sweats or weight loss Eyes Eyes: Denies blurry vision, change in vision or diplopia ENT ENT ED: Denies ear pain, rhinorrhea or sore throat Cardiovascular Cardiovascular: Denies chest pain, orthopnea, palpitations, paroxysmal nocturnal dyspnea or racing heartbeat Respiratory/Chest Respiratory/Chest: Denies cough, dyspnea, dyspnea on exertion, orthopnea or paroxysmal nocturnal dyspnea Gastrointestinal Gastrointestinal: Reports abdominal pain and nausea; Denies constipation, diarrhea, melena or vomiting Genitourinary Genitourinary ED: Reports LMP (females 10-50) Details: Comment: (Approxi-1 month ago. Patient is sexually active but is sexually active with women only.); Denies dysuria, hematuria or urinary frequency Musculoskeletal Musculoskeletal: Reports back pain; Denies arthralgias, myalgias or neck pain Integumentary Denies rash Neurologic Neurologic: Denies headache(s), paresthesias or weakness Psychiatric Psychiatric: Denies anxiety or depression Endocrine Endocrinology: Denies cold intolerance or heat intolerance Hematologic/Lymphatic Hematologic/Lymphatic: Reports systems reviewed and no addt'l complaints, except as documented EXAM Physical Exam Const Vital Signs: 10/18/22 14:26 Temperature 98 F Temperature Source Temporal Respiratory Rate 100 H Blood Pressure 149/96 H Blood Pressure Mean 113 Pulse Ox 16 Oxygen Delivery Method Room Air Positive well nourished, well developed and obese Constitutional Narrative: Patient is lying on the left side. General Appearance ED: well developed; Negative for cyanotic, diaphoretic or pallor Nutritional Appearance: obese HEENT Reports moist mucous membranes HEENT Narrative: Head is atraumatic normocephalic. Ears are normal. Posterior pharynx is normal. Mucosa is moist. Eyes PERRL and EOMs intact bilaterally General Eye ED: Negative for pale conjunctiva or scleral icterus Neck no lymphadenopathy, supple and no JVD Resp normal respiratory effort and clear to auscultation bilaterally Cardio regular rate, regular rhythm, S1 normal heart sound, S2 normal heart sound and no murmurs GI normal to inspection, nondistended, normoactive bowel sounds, non-distended and no masses; Negative for non-tender or hepatosplenomegaly Auscultation: hypoactive bowel sounds Palpation: soft and tender RUQ and Smalls's sign; Negative for guarding, splenomegaly, mass or rebound tenderness present Back/Spine no CVA tenderness Extremity normal to inspection General Extremety ED: Negative for edema or tenderness General Extremity: Negative for edema Neuro oriented x3, CN's II-XII intact bilaterally and no sensory deficits noted Sensorium / Orientation: alert Psych Mood & Affect: depressed Skin no rashes or lesions noted, no wounds and skin turgor normal General Skin Exam: elasticity normal; Negative for jaundice or pallor MDM MDM MDM Narrative Medical decision making narrative: With documented cholelithiasis on ultrasound August of this year and right upper quadrant pain with clinical Smalls sign concern patient has possible cholecystitis. Will obtain blood work to assess liver enzymes, CBC/differential, electrolyte panel and lipase was ordered since she does admit to alcohol use. This also may be due to exacerbation of her Crohn's disease. She is followed by Dr. Ojeda for her Crohn's disease and had recent scope. Patient was treated with 4 mg of Zofran for her nausea and 4 mg of morphine for her pain. History & Record Review Additional record(s) reviewed:: Prior outpatient record, Prior ED visit and Prior labs Lab Data Attestation: I reviewed the patient's lab results. Lab results narrative: CBC and differential are markable. Patient does not slight lymphocyte comprehensive metabolic panel is remarkable elevation of AST. Alkaline phosphatase, total bili and ALT are normal. Lipase is pending. Per nurse triage he has protocol patient had a urine (which was negative. Urinalysis macro is positive for leukoesterase, mildly. Microscopic urinalysis is negative. Lipase is normal. Patient was resting comfortably in the room when she was informed of her results at the 1701. Plan is to discharge to home to follow-up with Dr. Zeke Rascon who she was referred to when diagnosed with cholelithiasis. Labs: Laboratory Results - last 24 hr 10/18/22 10/18/22 10/18/22 14:33 14:33 14:33 WBC 7.9 RBC 4.20 Hgb 13.0 Hct 38.7 MCV 92.1 MCH 31.0 MCHC 33.6 RDW Std Deviation 44.1 H RDW Coeff of Kim 13.2 Plt Count 391 MPV 9.2 Immature Gran % (Auto) 0.400 Neut % (Auto) 47.6 Lymph % (Auto) 42.5 H [place] % (Auto) 8.0 Eos % (Auto) 0.9 Baso % (Auto) 0.6 Absolute Neuts (auto) 3.8 Absolute Lymphs (auto) 3.36 Nucleated RBC % 0 Sodium 138 Potassium 3.7 Chloride 107 Carbon Dioxide 26.0 Anion Gap 5 BUN 12 Creatinine 1.01 Estim Creat Clear Calc 62.47 Est GFR (MDRD) Af Amer 79 Est GFR (MDRD) Non-Af 65 BUN/Creatinine Ratio 11.9 Glucose 104 Calcium 9.3 Total Bilirubin 0.20 AST 52 H ALT 42 Alkaline Phosphatase 108 Total Protein 7.4 Albumin 3.6 Globulin 3.8 Albumin/Globulin Ratio 0.9 Lipase Serum , Qual NEGATIVE Urine Color Urine Clarity Urine pH Ur Specific [place] Urine Protein Urine Glucose (UA) Urine Ketones Urine Occult Blood Urine Nitrite Urine Bilirubin Urine Urobilinogen Ur Leukocyte Esterase Urine RBC Urine WBC Ur Squamous Epith Cells Urine Bacteria Urine Mucus 10/18/22 10/18/22 14:35 15:47 WBC RBC Hgb Hct MCV MCH MCHC RDW Std Deviation RDW Coeff of Kim Plt Count MPV Immature Gran % (Auto) Neut % (Auto) Lymph % (Auto) [place] % (Auto) Eos % (Auto) Baso % (Auto) Absolute Neuts (auto) Absolute Lymphs (auto) Nucleated RBC % Sodium Potassium Chloride Carbon Dioxide Anion Gap BUN Creatinine Estim Creat Clear Calc Est GFR (MDRD) Af Amer Est GFR (MDRD) Non-Af BUN/Creatinine Ratio Glucose Calcium Total Bilirubin AST ALT Alkaline Phosphatase Total Protein Albumin Globulin Albumin/Globulin Ratio Lipase 24 Serum , Qual Urine Color Yellow Urine Clarity Sl. Cloudy Urine pH 6.0 Ur Specific [place] 1.015 Urine Protein Negative Urine Glucose (UA) Normal Urine Ketones Negative Urine Occult Blood Negative Urine Nitrite Negative Urine Bilirubin Negative Urine Urobilinogen Normal Ur Leukocyte Esterase 25 H Urine RBC 0 SEEN Urine WBC 0 SEEN Ur Squamous Epith Cells 0 SEEN Urine Bacteria 0 SEEN Urine Mucus 0 SEEN Discharge Plan Triage Chief Complaint: Abd Pain ED Provider: JobGarret Dx/Rx/DC Orders Clinical Impression: Colicky right upper quadrant pain, Cholelithiasis, Hx of Crohn's disease, Cannabis use disorder Instructions: ED Gallstones with Biliary Colic Prescriptions: New hydrocodone-acetaminophen [hydrocodone-acetaminophen] 5-325 mg tablet 1 tab PO Q6H PRN PRN (Reason: Pain) 2 Days Qty: 6 0RF No Action hydroxyzine pamoate 25 mg capsule 25 mg PO QHS escitalopram oxalate [Lexapro] 20 mg tablet 20 mg PO DAILY lamotrigine [Lamictal] 100 mg tablet 200 mg PO DAILY promethazine [promethazine] 25 mg tablet 25 mg PO Q6H PRN PRN (Reason: Nausea) Qty: 10 0RF ondansetron [ondansetron] 4 mg tablet,disintegrating 4 mg PO Q8H PRN PRN (Reason: Nausea) Qty: 10 0RF dicyclomine 20 mg tablet 20 mg PO TID Qty: 14 0RF ondansetron 4 mg tablet,disintegrating 4 mg PO Q8H PRN PRN (Reason: Nausea) Qty: 14 0RF hyoscyamine sulfate 0.125 mg tablet, sublingual 0.25 mg PO Q4H PRN (Reason: abdominal cramping) Qty: 30 0RF prednisone 50 mg tablet 50 mg PO DAILY 5 Days Qty: 5 0RF ondansetron 4 mg tablet,disintegrating 4 mg PO Q8H PRN PRN (Reason: Nausea) Qty: 10 0RF scopolamine base 1 mg over 3 days patch 3 day 1 patch transdermal Q3D Qty: 10 3RF Stelara 90 mg/mL syringe 90 mg subcut Q8W Qty: 1 5RF Rx Instructions: Crohn's Primary Care Provider: PodlogMichelle turcios NP Referrals: Zeke Rascon MD [Med Staff - Active Staff] - 1 Week PodMichelle baird NP, [employer] [Primary Care Provider] - 5-7 Days Disposition Disposition: Home, Self Care
[2022-10-18] MEDS: Morphine 4 MG/ML Syringe IV (16:29)
[2022-10-18] MEDS: Ondansetron 4 MG/2 ML Vial IV (16:29)
[2022-10-18 16:32] LABS: Lipase 24 U/L (13-75)
== END 2022-10-18 17:13 | disposition home or self-care (01) ==
PROVIDERS: Emergency Provider Emergency Medicine; PCP Nurse Practitioner Primary Care; Visit Provider Emergency Medicine
DX: K80.20 Calculus of gallbladder without cholecystitis without obstruction (principal); F17.210 Nicotine dependence, cigarettes, uncomplicated; E66.9 Obesity, unspecified; Z68.33 Body mass index [BMI] 33.0-33.9, adult; Z87.19 Personal history of other diseases of the digestive system; F12.90 Cannabis use, unspecified, uncomplicated
CPT/HCPCS: 80053; 81001; 83690; 84703; 85025; 96374; 96375; 99282; A4216; J2405

== ENCOUNTER 2022-10-25 12:50 | Observation (INO) | payer MEDICAID, SELFPAY ==
[2022-10-25] VITALS (18 sets, daily range): BP systolic 106–156; BP diastolic 72–99; PULSE 63–105; RESP 14–18; TEMP 36.3–37.6; O2SAT 95–100; BMI 32.3
--- NOTE | 2022-10-25 10:45 | HP.PCM_ITS ---
History and Physical Date of Admission: 10/25/22 Intake Vital Signs ? 10/18/2313:26 10/23/2314:22 Height 5 ft 3 in 5 ft 3 in Weight: 189 lb 3 oz 186 lb BMI 33.5 32.9 BP 149/96 H 130/87 H Blood Pressure Location ? Rt brachial Position ? Sitting Respiration 100 H 19 H Pulse ? 79 Pulse Source ? Monitor Temp 98 F ? Temp Source Temporal Temporal Pulse Oximetry (%) 16 99 Intake Visit Reasons:?GALLBLADDER ER 10/18 Chief Complaint: gallbladder consult Allergies amoxicillin Allergy (Verified 10/23/22 15:24) Rashtramadol Allergy (Verified 10/23/22 15:24) Rash Medications escitalopram oxalate 20 mg tablet (Lexapro) 20 mg PO DAILY 08/15/21 [History Confirmed 10/23/22] hydroxyzine pamoate 25 mg capsule 25 mg PO QHS 08/15/21 [History Confirmed 10/23/22] lamotrigine 100 mg tablet (Lamictal) 200 mg PO DAILY 08/15/21 [History Confirmed 10/23/22] promethazine 25 mg tablet 25 mg PO Q6H PRN PRN Nausea #10 TABLETS 05/23/22 [Rx Confirmed 10/23/22] ondansetron 4 mg disintegrating tablet 4 mg PO Q8H PRN PRN Nausea #10 tabs 07/13/22 [Rx Confirmed 10/23/22] dicyclomine 20 mg tablet 20 mg PO TID #14 tabs 07/30/22 [Rx Confirmed 10/23/22] ondansetron 4 mg disintegrating tablet 4 mg PO Q8H PRN PRN Nausea #14 tabs 08/11/22 [Rx Confirmed 10/23/22] hyoscyamine sulfate 0.125 mg sublingual tablet 0.25 mg PO Q4H PRN abdominal cramping #30 tabs 08/12/22 [Rx Confirmed 10/23/22] ondansetron 4 mg disintegrating tablet 4 mg PO Q8H PRN PRN Nausea #10 tabs 09/02/22 [Rx Confirmed 10/23/22] prednisone 50 mg tablet 50 mg PO DAILY 5 days #5 tabs 09/02/22 [Rx Confirmed 10/23/22] scopolamine base 1 mg over 3 days transdermal patch 1 patch transdermal Q3D #10 ea 09/23/22 [Rx Confirmed 10/23/22] ustekinumab 90 mg/mL subcutaneous syringe (Stelara) 90 mg subcut Q8W #1 mL 09/30/22 [Rx Confirmed 10/23/22] hydrocodone-acetaminophen 5-325mg 5mg-325mg 1 tab PO Q6H PRN PRN Pain 2 days #6 TABLETS 10/18/22 [Rx Confirmed 10/23/22] PFSH Medical History Acute Crohn's disease Anxiety Back problem Bipolar 1 disorder Depression History of blood transfusion Marijuana use Restless legs Smoker Surgical History? Tubal ligation status Family History? Mother Mental disorder Social History? household members:? children Smoking Status:? Current every day smoker tobacco type: cigarettes substance use type:? does not use HPI HPI HPI: Patient was recently admitted to an outside hospital with acute cholecystitis.? She was sent home and asked to follow-up with a surgeon so she comes in today.? She says she was tolerating a diet the day of discharge but now she has been throwing up for 3 days.? She says the pain is in her right upper quadrant. ROS General General: Yes weight change and fatigue; No appetite, colon cancer, breast cancer or weakness HEENT HEENT: No difficulty swallowing, eye injury, eye surgery, swollen glands or hoarseness Endo Endocrine: No thyroid disease, diabetes mellitus, thyroid cancer, Hair loss, heat intolerance or cold intolerance Skin Skin: No rash or changing moles Breast Breast: No left breast lump, right breast lump, nipple discharge, breast pain, abnormal mammogram, abnormal US or breast enlargement Musc Musculoskeletal: No back problems, arthritis, rheumatoid arthritis, gout or joint pain Cardio Cardiovascular: No murmur, pacemaker, heart disease, atrial fibrillation, high blood pressure, heart attack, heart stent, palpitations, shortness of breat with exertion or chest pain Psych Psychiatric: Yes depression and anxiety; No hearing voices Resp Respiratory: No shortness of breath, No sleep apnea, No cough, No COPD, Yes asthma, No emphysema and No wheezing Gastro Gastrointestinal: Yes abdominal pain, Yes nausea or vomiting, No diarrhea, No constipation, No blood in stool, No acid reflux, No hemorrhoids, No ulcers, Yes gallbladder problem and No black,tarry stools Adonis Hematologic: No blood thinners, No blood disorders, No bleeding, No anemia and No blood clots Neuro Neurologic: No system reviewed and no additional complaints, except as documented, No as per HPI, No abnormal gait, No abnormal hearing, No abnormal movements, No abnormal speech, No behavioral changes, No burning sensations, No confusion, No convulsions, No disequilibrium, No dizziness, No localized weakness, No frequent falls, No headache(s), No lack of coordination, No loss of vision, No memory loss, No numbness, No other visual disturbances, No radicular pain, No restless legs, No sensory deficit, No syncope, No tingling, No tremor(s), No weakness and No other Exam Const General: cooperative Orientation: alert and oriented x3 HENMT Head: normal to inspection Neck Neck: normal visual inspection and full ROM Chest Chest palpation & inspection: normal inspection of the chest Resp Effort & Inspection: normal respiratory effort Auscultation: clear to auscultation bilaterally Cardio Rate: regular rate Rhythm: regular rhythm GI Inspection: non-distended Palpation: soft and tender in the RUQ Skin General: no rashes or lesions noted Neuro General: patient alert and patient oriented x3 Extrem General: full ROM Psych Appearance: grossly normal Mental Status: mental status grossly normal Assessment and Plan Assessment and Plan (1) Cholelithiasis: ?Status:?Acute ?Qualifiers: ?Cholelithiasis location:?gallbladder??Cholecystitis presence:?with cholecystitis??Biliary obstruction:?without biliary obstruction (2) Colicky right upper quadrant pain: ?Status:?Acute Plan Patient is having right upper quadrant pain and she did have a recent ultrasound that showed cholelithiasis.? She likely had acute cholecystitis and still has chronic cholecystitis.? The patient should have laparoscopic cholecystectomy.? I advised her and schedule her for surgery later this week.? If she has any worsening before then she can come to the emergency room and I will do her surgery emergently.? I discussed laparoscopic cholecystectomy with her in detail.? I discussed the procedure in detail with the patient.? I discussed the risks, benefits, and alternatives of the procedure.? I discussed the risks including but not limited to bleeding, infection, injury to surrounding organs such as the liver, bile duct, bowels.? I did discuss the possibility of having to convert to an open procedure as well as the possibility that if any injuries occurred this may necessitate further surgery at a tertiary care center. Zeke Rascon MD Pager: [facility] [address] [place] [address] [address] [place] [address] Office: I have examined the patient and the H&P has been reviewed. There are no clinical changes since date of exam.
[2022-10-25] MEDS: Lactated Ringers 1,000 ML 15 ML IV ×2 (11:04→11:49)
[2022-10-25 11:08] LABS: Internal QC Validated? YES +Cl - CLEAR BKGD; Pregnancy, Urine Negative Negative
[2022-10-25] MEDS: Clindamycin 900 MG/50 ML BAG 75 MG IV (11:34)
--- NOTE | 2022-10-25 11:45 | RAD_ITS ---
STUDY: INTRAOPERATIVE CHOLANGIOGRAM. REASON FOR EXAM: Female, 37 years old. LAP PEREZ WITH IOC FLUOROSCOPY TIME (if supplied): ( 17.5 seconds ) minutes/seconds. 7.62 mGy TECHNIQUE: An intraoperative cholangiogram was performed by the surgeon. Imaging was submitted. COMPARISON: None. FINDINGS: Mildly dilated central intrahepatic biliary ducts and common bile duct. A filling defect is seen in the distal portion of the common bile duct in keeping with retained calculus. RAD/Cholangiogram/ O R,Initial IMPRESSION: Dilated common bile duct with retained calculus in its distal portion. Reflux contrast into the duodenum. Electronically Signed: Joshua Houston MD at 14:39 EDT ,
--- NOTE | 2022-10-25 12:15 | GALL_PTH ---
PATIENT: DIANE WELLER LOC: [facility] U#:[id number] AGE/SX: 37/F ROOM: AK321 RE10/25/[address]: Dr. Zeke Rascon MD : 1985 BED: 1 DIS: 10/26/2022 SPEC #: [id number] RECD: 10/25/22 12:50 STATUS: LORENA ASENCIO #: [id number] EMANI: 10/25/22 12:[address]: Zeke Rascon DEPT: SURGICAL PATHOLOGY RECD BY: Patricia Cole ENTERED: 10/25/22 13:43 SP TYPE: HUE NGUYEN DR: Michelle Grimm, HEEL TOP LIFT SPLITTER-C Tissues: Gallbladder, NOS Procedures: Surgery Specimen Level III HEADER OPERATION: Laparoscopic cholecystectomy with IOC PRE-OP DIAGNOSIS: Cholelithiasis, colicky right upper quadrant pain TISSUE SUBMITTED: Gallbladder MICROSCOPIC DIAGNOSIS Gallbladder, cholecystectomy: Chronic cholecystitis and cholelithiasis. AM:shahla 10/28/2022 MICROSCOPIC DESCRIPTION Slides are reviewed. GROSS DESCRIPTION Received is one container labeled with the patient's name and designated gallbladder. The specimen consists of a gallbladder measuring 9.0 cm in length and up to 4.0 cm in diameter. The external surface is pink-jameson, smooth and glistening for the most part. Focally it is granular, hemorrhagic and contains cautery artifact. The gallbladder contains green-yellow mucoid bile and multiple jameson-white to light yellow multifaceted stones measuring in aggregate 5.5 x 6.0 x 3.0 cm and 0.1 to 1.0 cm in greatest dimension. The mucosa is bile-stained and without any mass lesions. The gallbladder wall measures 0.1 cm in thickness. Cable Puller sections from the gallbladder and the cystic duct are submitted in one cassette. / SJ:shahla 10/25/2022 TC:3 CPT: 91728
[2022-10-25] MEDS: Bupivacaine 0.25% 30 ML Vial (12:16)
--- NOTE | 2022-10-25 12:30 | EX.PCM.CON.G ---
HPI Consult Data Date of Consult: 10/25/22 HPI Narrative Reason for Consultation: choledocholithiasis HPI Narrative: DIANE WELLER, is a 37 F who presents from an outside hospital with abdominal pain. She has past medical history of marijuana hyperemesis and Crohn's these on Stelara therapy. She did undergo an ultrasound at outside hospital so multiple stones in her gallbladder. She was transferred here for cholecystitis under the care of Dr. Zeke Rascon. She underwent an elective cholecystectomy today. During her Intra-Op cholangiogram she was discovered to have multiple stones in her distal common bile duct. I was consulted for ERCP with stone removal. PFSH Medical History Anemia Anxiety Asthma Bipolar 1 disorder Depression Heartburn History of blood transfusion History of Crohn's disease Hypertension Low iron Marijuana use Migraine headache Smoker Home Medications escitalopram oxalate 20 mg tablet (Lexapro) 20 mg PO DAILY 08/15/21 [History Last Taken Unknown] hydroxyzine pamoate 25 mg capsule 25 mg PO QHS 08/15/21 [History Last Taken Unknown] lamotrigine 100 mg tablet (Lamictal) 200 mg PO DAILY 08/15/21 [History Last Taken Unknown] promethazine 25 mg tablet 25 mg PO Q6H PRN PRN Nausea #10 TABLETS 05/23/22 [Rx Last Taken Unknown] dicyclomine 20 mg tablet 20 mg PO TID #14 tabs 07/30/22 [Rx Last Taken Unknown] scopolamine base 1 mg over 3 days transdermal patch 1 patch transdermal Q3D #10 ea 09/23/22 [Rx Last Taken Unknown] ustekinumab 90 mg/mL subcutaneous syringe (Stelara) 90 mg subcut Q8W #1 mL 09/30/22 [Rx Last Taken Unknown] albuterol sulfate 90 mcg/actuation aerosol inhaler (Ventolin HFA) 1 inh inhalation Q6H PRN ASTHMA 10/24/22 [History Last Taken Unknown] lisinopril 30 mg tablet 30 mg PO DAILY 10/24/22 [History Last Taken Unknown] hydrocodone-acetaminophen 5-325mg 5mg-325mg 1 - 2 tab PO Q4H PRN pain 5 days #20 tabs 10/25/22 [Rx Last Taken Unknown] Allergy/AdvReac Type Severity Reaction Status Date / Time amoxicillin Allergy Rash Verified 10/25/22 10:56 tramadol Allergy Rash Verified 10/25/22 10:56 Family History Mother Mental disorder Surgical History (Updated 10/24/22 @ 09:24 by Rosa Chowdhury) History of esophagogastroduodenoscopy (EGD) Social History household members: children Smoking Status: Current every day smoker tobacco type: cigarettes substance use type: does not use ROS Review of Systems ROS Unobtainable: other Constitutional Constitutional: Denies fatigue, fever(s), poor appetite, weight gain or weight loss ENT HEENT: Denies mouth lesions Cardiovascular Cardiovascular: Denies abdominal bloating, abdominal edema or abdominal pain Respiratory/Chest Respiratory/Chest: Denies change in mental status, change in phlegm color, chest congestion or chest tightness Gastrointestinal Gastrointestinal: Denies belching, bloating, change in bowel habits, change in stool character, chewing difficulty, coffee ground emesis, constipation, cramping, diarrhea, dyspepsia, dysphagia, early satiety, excessive flatus, fecal incontinence, heartburn, hematemesis, hematochezia, hemorrhoids, loose stools, melena, nausea, odynophagia, rectal bleeding, tenesmus, vomiting or weight changes Genitourinary Genitourinary: Denies abdominal discomfort, burning urination or itching Musculoskeletal Musculoskeletal: Reports as per HPI; Denies muscle weakness or myalgias Integumentary Integumentary: Denies jaundice Neurologic Neurologic: Denies lack of coordination or weakness Psychiatric Psychiatric: Denies confusion, depression, memory loss, mood swings, paranoia or suicidal ideation Endocrine Endocrinology: Denies systems reviewed and no addt'l complaints, except as documented Hematologic/Lymphatic Hematologic/Lymphatic: Denies anemia, easy bleeding, easy bruising or lymphadenopathy Allergic/Immunologic Allergic/Immunologic: Denies systems reviewed and no addt'l complaints, except as documented Physical Exam Const alert General Appearance: cooperative Orientation / Consciousness: oriented to person HEENT hearing grossly normal bilaterally Head and Scalp: normal to inspection Face and Sinus: face symmetric Nose: external nose normal Mouth: oral and palatal mucosa normal Eyes conjunctivae normal General Eye: normal appearance of both eyes Neck full ROM General: normal visual inspection Lymph Lymphatic: no lymphadenopathy noted Chest inspection of chest normal and palpation of chest normal Chest: symmetrical chest wall rise Resp normal respiratory effort Effort and Inspection: able to speak in complete sentences Cardio regular rate GI non-distended Percussion: normal to percussion Rectal Exam: deferred Neuro Speech: speech normal Gait (Neuro): normal gait Lab / Micro Data Labs: Laboratory Results - last 24 hr 10/25/22 10:50: Urine Test Negative Radiology Impression Cholangiogram 10/25/22 11:45 IMPRESSION: Dilated common bile duct with retained calculus in its distal portion. Reflux contrast into the duodenum. Electronically Signed: Joshua Houston MD at 14:39 EDT , Assessment & Plan Assessment/Plan (1) Hx of Crohn's disease: (2) Cholecystitis: (3) Choledocholithiasis: PLAN: Plan 37-year-old comes in with acute abdominal pain from outside hospital for continued evaluation and treatment of cholecystitis. She underwent elective laparoscopic cholecystectomy without any problems. She underwent intraoperative cholangiogram was discovered to have multiple stones in her common bile duct. I was consulted for an ERCP. She will undergo ERCP was explained alternatives, risk, benefits include not withstanding bleeding, infection, sepsis, perforation, need for emergent surgery . She will have an ASA of 2. Charges/Coding Visit Charges Inpatient E&M: 52945 Init Hosp L2
--- NOTE | 2022-10-25 12:49 | PN_ITS ---
Progress Note Patient had laparoscopic cholecystectomy. She was found to have choledocholithiasis on intraoperative cholangiogram. I consulted Dr. Ojeda for ERCP. He will see the patient and do an ERCP this afternoon. I discussed this with the patient. I discussed the procedure as well as the risks and benefits with the patient and the patient's partner. As the patient has had anesthesia today and does not have a POA, Dr. Ojeda and I will cosign her consent in her best interest but she does understand the procedure and agree to proceed. I will admit the patient after ERCP for observation overnight and likely discharge tomorrow morning. Zeke Rascon MD Pager: [facility] [address] [place] [address] Office:
--- NOTE | 2022-10-25 12:57 | EX.PCM.DISCH ---
Discharge Instructions Procedure Gallbladder Diet Discharge Diet: Light diet - advance as tolerated Activity Discharge Activity: May Not Drive (for 2-3 days or while taking narcotic pain medications.) and - (Do not drive, work heavy equipment or sign legal documents for 24 hours.) May shower in (days): 1 Lifting Restrictions: 20 lbs for 2 weeks Additional Activity Instructions:: Pain medication may cause nausea. You should typically eat light foods as you take your pain medications. Pain medication may also cause constipation. If this is a problem for you, please discuss with your doctor. Dressing / Incision Call your doctor if your incision/area has: Continuous Slow Oozing, Sudden Increased Bleeding, Increased Pain/ Swelling, Increased Redness and Foul Smelling Discharge Call your doctor if you observe: Fever of 101 or Higher Suture Line Care: Avoid Pulling/Pushing and Avoid Pinching/Bending Remove Dressing in: 2 days Additional Dressing/Incision Instructions:: Leave operative bandaids on for 2 days. When you remove dressing, leave Steri-Strips on until your follow-up appointment, or until the Steri-Strips fall off on their own. Follow Up Care Please Follow Up With: Zeke Rascon MD When: Please call to schedule 2 week follow up appointment. [phone] Test Results: Test results from this visit will be discussed in further detail at your follow-up appointment, if applicable. Discharge Plan Admission Attending Provider: Zeke Rascon Primary Care Provider: PodMichelle baird NP Discharge Orders/Prescriptions Prescriptions: New hydrocodone-acetaminophen 5-325 mg tablet 1 - 2 tab PO Q4H PRN (Reason: pain) 5 Days Qty: 20 0RF No Action hydroxyzine pamoate 25 mg capsule 25 mg PO QHS escitalopram oxalate [Lexapro] 20 mg tablet 20 mg PO DAILY lamotrigine [Lamictal] 100 mg tablet 200 mg PO DAILY promethazine [promethazine] 25 mg tablet 25 mg PO Q6H PRN PRN (Reason: Nausea) Qty: 10 0RF dicyclomine 20 mg tablet 20 mg PO TID Qty: 14 0RF lisinopril 30 mg Tablet 30 mg PO DAILY albuterol sulfate [Ventolin HFA] 90 mcg/actuation Hfa Aerosol Inhaler 1 inh INHALATION Q6H PRN (Reason: ASTHMA) scopolamine base 1 mg over 3 days patch 3 day 1 patch transdermal Q3D Qty: 10 3RF Stelara 90 mg/mL syringe 90 mg subcut Q8W Qty: 1 5RF Rx Instructions: Crohn's Referrals / Follow Up: PodlogarMichelle NP, [employer]UMAST[employer] APPLIER-C [Primary Care Provider] - Disposition Disposition (needs filled in before D/C Order can be placed): Home, Self Care
--- NOTE | 2022-10-25 16:25 | RAD_ITS ---
EXAM: INTRAOPERATIVE CHOLANGIOGRAM FLUOROSCOPY TIME: 90 seconds RADIATION DOSE: 45 mGy TOTAL NUMBER OF IMAGES: 1 COMPARISON: None. PROVIDED CLINICAL HISTORY: STONES PAIN TECHNIQUE: The examination was performed with physician in attendance. Under fluoroscopic observation, fluoroscopic images were obtained in the operating room. FINDINGS: First image demonstrates surgical instruments overlying the tegfa-in-kene. Contrast is identified in a cannulated common bile duct. Retrograde contrast is notseen in the pancreatic duct. Contrast is noted in the proximal duodenum. Contrast is seen in the intrahepatic ducts. RAD/ERCP Biliary Only IMPRESSION: Fluoroscopic assistance images were obtained. Pertinent findings noted above. Electronically Signed: Catarino Maxwell MD at 21:39 EDT ,
--- NOTE | 2022-10-25 17:25 | OP.CCLET_ITS ---
10/25/2022 Michelle Podlogar Re : ERCP procedure for Irvin Tan Dear Podlogar This procedure was performed on Tuesday, October 25, 2022. My impressions and recommendations are as follows: Impressions : - The patient has had a cholecystectomy. - Choledocholithiasis was found. Complete removal was accomplished by biliary sphincterotomy and balloon extraction. - A biliary sphincterotomy was performed. - The biliary tree was swept. - Common bile duct was successfully dilated. - One temporary stent was placed into the common bile duct. Recommendations : My findings are described in the full procedure note, which is enclosed. If I can be of further assistance, please feel free to contact me at . Sincerely, Kenn Ojeda, 10/25/2022 5:24:34 PM This report has been signed electronically.
--- NOTE | 2022-10-25 17:25 | OP.ERCP_ITS ---
Patient Name: Irvin Tan Procedure Date: 10/25/2022 4:47 PM Date of : 1985 Age: 37 Procedure: ERCP Indications: Bile duct stone(s) Providers: eKnn Ojeda DO Referring MD: Zeke Rascon MD Medicines: See the Anesthesia note for documentation of the administered medications Patient Profile: This is a 37 year old female. Refer to note in patient chart for documentation of history and physical. Patient has symptoms of acute right upper quadrant abdominal pain and acute jaundice. She is status post laparoscopic cholecystectomy recently. Complications: No immediate complications. Procedure: Pre-Anesthesia Assessment: - Prior to the procedure, a History and Physical was performed, and patient medications and allergies were reviewed. The risks and benefits of the procedure and the sedation options and risks were discussed with the patient. All questions were answered and informed consent was obtained. Patient identification and proposed procedure were verified by the physician in the pre-procedure area. Mental Status Examination: alert and oriented. Airway Examination: normal oropharyngeal airway and neck mobility. Respiratory Examination: clear to auscultation. CV Examination: normal. Prophylactic Antibiotics: The patient does not require prophylactic antibiotics. Prior Anticoagulants: The patient has taken no previous anticoagulant or antiplatelet agents. ASA Grade Assessment: II - A patient with mild systemic disease. After reviewing the risks and benefits, the patient was deemed in satisfactory condition to undergo the procedure. The anesthesia plan was to use general anesthesia. Immediately prior to administration of medications, the patient was re-assessed for adequacy to receive sedatives. The heart rate, respiratory rate, oxygen saturations, blood pressure, adequacy of pulmonary ventilation, and response to care were monitored throughout the procedure. The physical status of the patient was re-assessed after the procedure. After obtaining informed consent, the scope was passed under direct vision. Throughout the procedure, the patient's blood pressure, pulse, and oxygen saturations were monitored continuously. The Duodenoscope was introduced through the mouth, and advanced to the duodenum and used to inject contrast into the bile duct. The ERCP was accomplished without difficulty. The patient tolerated the procedure well. Scope In: 4:51:41 PM Scope Out: 5:18:42 PM Total Procedure Duration Time 0 hours 27 minutes 1 second Findings: The film and video editor film was normal. The esophagus was successfully intubated under direct vision. The scope was advanced to a normal major papilla in the descending duodenum without detailed examination of the pharynx, larynx and associated structures, and upper GI tract. The upper GI tract was grossly normal. The bile duct was deeply cannulated with the short-nosed traction sphincterotome. Contrast was injected. I personally interpreted the bile duct images. There was brisk flow of contrast through the ducts. Image quality was excellent. Contrast extended to the entire biliary tree. A cholecystectomy had been performed. A straight Roadrunner wire was passed into the biliary tree. A 5 mm biliary sphincterotomy was made with a traction (standard) sphincterotome using ERBE electrocautery. The sphincterotomy oozed blood. The biliary tree was swept with a 12 mm balloon starting at the bifurcation. Sludge was swept from the duct. All stones were removed. Dilation of the common bile duct with an 8-9-10 mm balloon (to a maximum balloon size of 8 mm) dilator was successful. One 10 Fr by 5 cm temporary stent was placed 5 cm into the common bile duct. Bile flowed through the stent. The stent was in good position. Impression: - The patient has had a cholecystectomy. - Choledocholithiasis was found. Complete removal was accomplished by biliary sphincterotomy and balloon extraction. - A biliary sphincterotomy was performed. - The biliary tree was swept. - Common bile duct was successfully dilated. - One temporary stent was placed into the common bile duct. Procedure Code(s): --- Professional --- 61475, Endoscopic retrograde cholangiopancreatography (ERCP); with placement of endoscopic stent into biliary or pancreatic duct, including pre- and post-dilation and guide wire passage, when performed, including sphincterotomy, when performed, each stent [id number], Endoscopic retrograde cholangiopancreatography (ERCP); with removal of calculi/debris from biliary/pancreatic duct(s) 05242, 26, Endoscopic catheterization of the biliary ductal system, radiological supervision and interpretation CPT copyright 2017 [employer]. All rights reserved. The codes documented in this report are preliminary and upon securities supervisor review may be revised to meet current compliance requirements. Kenn Ojeda DO 10/25/2022 5:24:34 PM This report has been signed electronically. Number of Addenda: 0 Note Initiated On: 10/25/2022 4:47 PM
[2022-10-25] MEDS: 0.9% Normal Saline 1,000 ML 60 ML IV (18:56)
[2022-10-25] MEDS: proMETHazine 25 MG Tablet PO (18:59)
[2022-10-25] MEDS: HYDROcodone Bitartrate/Apap 5/325 Tablet PO (20:23)
[2022-10-25] MEDS: Dicyclomine 10 MG Capsule 20 MG PO (22:24)
[2022-10-25] MEDS: hydrOXYzine PAM 25 MG Capsule PO (22:24)
[2022-10-25] MEDS: Ibuprofen 600 MG Tablet PO (22:24)
[2022-10-25] MEDS: Morphine 2 MG/ML Syringe IV (23:15)
[2022-10-26 03:01] VITALS: BP 119/87; PULSE 56; RESP 15; TEMP 36.6; O2SAT 97
[2022-10-26] MEDS: HYDROcodone Bitartrate/Apap 5/325 Tablet PO ×2 (03:08→08:25)
[2022-10-26] MEDS: Ondansetron 4 MG/2 ML Vial IV (03:09)
[2022-10-26] MEDS: Ibuprofen 600 MG Tablet PO (06:29)
[2022-10-26] MEDS: Dicyclomine 10 MG Capsule 20 MG PO (06:29)
[2022-10-26 08:10] LABS: Absolute Lymphocyte Count 1.36 X10^3/uL (0.83-4.51); Absolute Neutrophil Count 5.4 X10^3/uL (2.0-7.7); Hematocrit 35.5 % (37-47); Lymphocyte # 1.36 X10^3/ul (0.83-4.51); Lymphocyte % 18.1 % (19-41); Mean Corp Hgb Conc 33.8 g/dL (32-36); Mean Corpuscular Hgb 31.2 pg (27.0-32.0); Mean Corpuscular Volume 92.2 fL (81-99); Mean Platelet Vol. 9.8 fl (6.2-12.0); Monocyte# 0.71 X10^3/uL; Monocyte% 9.4 % (0-10); NRBC Flagged by Analyzer 0 % (0-5); Neutrophil # 5.43 X10^3/uL (2.7-7.7); Neutrophil % 72.2 % (47-70); Platelet Count 343 K/mm3 (150-450); RBC Distribution Width CV 13.2 % (11.6-14.6); RBC Distribution Width SD 44.5 fl (35.1-43.9); Red Blood Count 3.85 M/mm3 (4.2-5.4); White Blood Count 7.5 K/mm3 (4.4-11.0)
[2022-10-26] MEDS: 0.9% Normal Saline 1,000 ML 60 ML IV (08:24)
[2022-10-26] MEDS: proMETHazine 25 MG Tablet PO (08:24)
[2022-10-26 08:26] LABS: ALB/GLOB Ratio 0.9 RATIO (0.9-2.4); AST(SGOT) 28 U/L (15-37); Alanine Aminotransfer ALT/SGPT 50 U/L (13-56); Albumin, Serum 3.2 g/dL (3.2-5.0); Alkaline Phosphatase 79 U/L (45-117); Anion Gap 7 (5-15); BUN 7 mg/dL (7-18); BUN/Creat Ratio 7.7 RATIO (10-20); Calcium,Total 8.9 mg/dL (8.5-10.1); Chloride 108 mmol/L (98-107); Creatinine, Serum 0.91 mg/dL (0.55-1.02); EST Glomerular Filtration Rate 73 mL/min (>60); Est Glom Filt Rate - Afr Amer 88 mL/min (>60); Estimated Creatinine Clearance 69.34 ml/min; Globulin 3.4 g/dL (2.2-4.2); Glucose 115 mg/dL (74-106); Lipase 18 U/L (13-75); Potassium 3.6 mmol/L (3.5-5.1); Protein, Total 6.6 g/dL (6.4-8.2); Sodium Level 138 mmol/L (136-145)
--- NOTE | 2022-10-26 08:34 | PN.SURG_ITS ---
Subjective Subjective Patient has a little bit nausea this morning question if it could be due to the morphine. Patient did get some antinausea meds as well as a Vicodin. Patient is having pain at the incision sites controlled with meds. Objective Data Objective Data Vital Signs: Vital Signs Temp Pulse Resp BP Pulse Ox O2 Del Method 97.9 F 56 L 15 119/87 H 97 Room Air 10/26/22 03:01 10/26/22 03:01 10/26/22 03:01 10/26/22 03:01 10/26/22 03:01 10/26/22 03:01 Oxygen Delivery Method Room Air Weight: 182 lb 12.211 oz Body Mass Index (BMI) 32.3 Intake & Output: Intake and Output for Last 24 Hours 10/24/22 10/25/22 10/26/22 23:59 23:59 23:59 Intake Total 1157.75 / 1532.75 1458 / 1458 Output Total 450 / 450 Balance 1157.75 / 1282.75 1008 / 1008 Lab / Micro Data Result Diagrams: 10/26/22 07:15 10/26/22 07:15 Labs: Laboratory Results - last 24 hr 10/25/22 10:50: Urine Test Negative 10/26/22 07:15: WBC 7.5, RBC 3.85 L, Hgb 12.0, Hct 35.5 L, MCV 92.2, MCH 31.2, MCHC 33.8, RDW Std Deviation 44.5 H, RDW Coeff of Kim 13.2, Plt Count 343, MPV 9.8, Immature Gran % (Auto) 0.300, Neut % (Auto) 72.2 H, Lymph % (Auto) 18.1 L, Nobles % (Auto) 9.4, Eos % (Auto) 0.0, Baso % (Auto) 0.0, Absolute Neuts (auto) 5.4, Absolute Lymphs (auto) 1.36, Nucleated RBC % 0 10/26/22 07:15: Sodium 138, Potassium 3.6, Chloride 108 H, Carbon Dioxide 23.0, Anion Gap 7, BUN 7, Creatinine 0.91, Estim Creat Clear Calc 69.34, Est GFR (MDRD) Af Amer 88, Est GFR (MDRD) Non-Af 73, BUN/Creatinine Ratio 7.7 L, Glucose 115 H, Calcium 8.9, Total Bilirubin 0.30, AST 28, ALT 50, Alkaline Phosphatase 79, Total Protein 6.6, Albumin 3.2, Globulin 3.4, Albumin/Globulin Ratio 0.9, Lipase 18 Radiography Diagnostic Testing: Radiology Impression Cholangiogram 10/25/22 11:45 IMPRESSION: Dilated common bile duct with retained calculus in its distal portion. Reflux contrast into the duodenum. Electronically Signed: Joshua Houston MD at 14:39 EDT , Physical Exam Resp normal respiratory effort Cardio regular rate GI GI Narrative: Abdomen: Soft, nondistended, tender near incision's dressed clean dry and intact, no peritoneal signs Assessment & Plan Assessment/Plan (1) S/P laparoscopic cholecystectomy: (2) S/P ERCP: PLAN: Plan Patient is having a little bit nausea, if this improves and she is able to tolerate diet okay to DC home. Cheri Andrade M.D. Pager: [phone] [facility] [address] [place] [address], [facility], [address] [place] [address] Office: [phone]
[2022-10-26 08:36] VITALS: BP 128/85; PULSE 60; RESP 18; TEMP 36.7; O2SAT 91
[2022-10-26] MEDS: Docusate Sodium 100 MG Capsule PO (11:11)
--- NOTE | 2022-11-04 09:09 | PCM.OPRPT ---
Report of Operation Date of Procedure: 10/25/22 Pre-Operative Diagnosis: Chronic and acute cholecystitis Post-Operative Diagnosis: Chronic and acute cholecystitis and choledocholithiasis Surgery/Procedure Performed:: Laparoscopic cholecystectomy with cholangiogram Specimen's removed: Gallbladder Description of Procedure: After obtaining informed consent patient was brought back to the operating room. General anesthesia was induced. The abdomen was prepped and draped in usual sterile fashion. A small midline incision was made superior to the umbilicus and deepened to the level of fascia. The fascia was elevated and incised. Next the peritoneum was elevated and incised in the same fashion. Finger sweep was performed and the Joel trocar was placed into the abdomen. The balloon was inflated. The abdomen was inflated to 15 mmHg. Next a camera was introduced into the abdomen and the abdomen was inspected. Next under direct visualization three 5-mm ports were placed one subxiphoid and 2 subcostal. Next the gallbladder was elevated and retracted toward the right shoulder. The peritoneum was stripped from the gallbladder. The infundibulum was located and retracted laterally. Next the triangle of Calot was dissected and the cystic duct and cystic artery were identified. Cholangiograms were performed. The Roper clamp was used to clamp across the infundibulum and the catheter needle was inserted into the gallbladder. Under fluoroscopy contrast was instilled into the gallbladder and the common duct, cystic duct as well as proximal hepatic ducts were identified. There was good filling of the duodenum. There were filling defects noted in the common bile duct. The clamp was removed as well as the needle and the infundibulum was grasped once more. Three hemolock clips were placed across the cystic duct. The cystic duct was then divided leaving 2 clips on the stump. The cystic artery was clipped and divided in the same fashion. The hook cautery was then used to take the gallbladder off of the gallbladder bed. Hemostasis was obtained. Gallbladder fossa was irrigated and no active bleeding or bile leakage was noted. Next the camera was introduced in the subxiphoid port. An Endopouch bag was placed through the umbilical port and the gallbladder was placed into it. The gallbladder was then removed through the umbilical incision. The camera was then reinserted through the umbilical port. The gallbladder fossa was inspected once more and noted to be hemostatic with no leaking bile. The abdomen was suctioned dry. The 5 mm ports were removed under direct visualization. The umbilical port was then removed and the air was removed from the abdomen. Next using an 0 Vicryl suture the umbilical fascia was closed in a [id number] fashion. The umbilical port site was irrigated local anesthetic was administered to all the incisions. All the incisions were closed with interrupted subcuticular 4-0 Monocryl sutures followed by Steri-Strips and dressings. The patient was awoken and taken to PACU in stable condition. Dr. Ojeda will be consulted for ERCP. Admit VTE Documentation VTE Mechan Device Prophylaxis: SCD's
== END 2022-10-26 11:20 | disposition home or self-care (01) ==
LOC: SDC 13:00 → MS3 13:44
PROVIDERS: Anesthesiology; Internal Medicine Gastroenterology; Admitting Provider Surgery; PCP Nurse Practitioner Primary Care; Referring Provider Surgery; Visit Provider Surgery
PROC: (CPT 47610; principal; 2022-10-25 11:55)
DX: K80.64 Calculus of gallbladder and bile duct with chronic cholecystitis without obstruction (principal); F31.9 Bipolar disorder, unspecified; K50.90 Crohn's disease, unspecified, without complications; I10 Essential (primary) hypertension; F17.210 Nicotine dependence, cigarettes, uncomplicated; Z79.899 Other long term (current) drug therapy; F41.9 Anxiety disorder, unspecified; J45.909 Unspecified asthma, uncomplicated; K21.9 Gastro-esophageal reflux disease without esophagitis
CPT/HCPCS: 47563; 00790; 43264; 43274; A4216; J2405; 36415; 74300; 74328; 76000; 80053; 81025; 83690; 85025; 88304; 93005; 94668; 96374; 96375; 99221; 99252; J7030; J7120; G0378; G0463

== ENCOUNTER 2022-10-28 09:39 | Emergency (ER) | payer MEDICAID, SELFPAY ==
[2022-10-28 09:41] VITALS: BP 136/114; PULSE 91; RESP 24; TEMP 36.5; O2SAT 100; BMI 32.5
--- NOTE | 2022-10-28 09:54 | CT_ITS ---
HISTORY: diffuse abdominal pain, recent divya biliary stent. TECHNIQUE: Helically acquired images were obtained of the abdomen and pelvis after the intravenous administration of 100 cc Isovue-300. A radiation dose optimization technique was used for this scan. 401 images. COMPARISON: 08/12/2022. FINDINGS: LOWER CHEST: Lung bases clear. BOWEL: Bowel including appendix nondilated. Oral contrast reaches the colon. Colonic diverticulosis without focal inflammatory change observed. LIVER: No enhancing mass. GALLBLADDER/BILIARY TREE: Trace fluid and edema in the gallbladder fossa. Biliary stent placed with resolution of mild biliary ductal dilatation. SPLEEN/PANCREAS: Homogeneous and nonenlarged. KIDNEYS/ADRENAL GLANDS: Unremarkable. VESSELS: No abdominal aortic aneurysm. Minimal calcified plaque. PELVIC ORGANS: 2.3 cm round heterogeneous right uterine lesion. Tubal ligation clips. 3.2 cm left ovarian cyst. 1.3 cm involuting right ovarian cyst with trace free fluid in the pelvis. ABDOMINAL WALL: Trace anterior subcutaneous postoperative edema and air. BONES: Intact. CT/Abdomen/Pelvis W IV Cont ONLY IMPRESSION: Trace fluid and edema in the gallbladder fossa status post cholecystectomy. Interval biliary stent placement. Small involuting right ovarian cyst with trace free fluid in the pelvis. 3.2 cm left ovarian cyst. 2.3 cm round uterine lesion, likely leiomyoma. Colonic diverticulosis without acute diverticulitis. Electronically Signed: Yamila Patel MD at 10:52 EDT ,
--- NOTE | 2022-10-28 09:58 | ED.VIS.GI ---
HPI HPI - GI History of Present Illness Chief Complaint: Abd Pain Informant: patient Narrative Narrative: 3 days ago patient had cholecystectomy here at this hospital followed by EGD and sphincterotomy with removal of stones from the common bile duct and temporary stent placement. She states she has been having postoperative soreness, she has been passing flatus but no bowel movements yet, but this morning her pain has become severe and diffuse throughout her abdomen along with significant nausea. No fevers or chills or pruritus/jaundice. PFSH PFSH Medical History Anemia Anxiety Asthma Bipolar 1 disorder Depression Heartburn History of blood transfusion History of Crohn's disease Hypertension Low iron Marijuana use Migraine headache Smoker Home Medications escitalopram oxalate 20 mg tablet (Lexapro) 20 mg PO DAILY 08/15/21 [History Last Taken Unknown] hydroxyzine pamoate 25 mg capsule 25 mg PO QHS 08/15/21 [History Last Taken Unknown] lamotrigine 100 mg tablet (Lamictal) 200 mg PO DAILY 08/15/21 [History Last Taken Unknown] promethazine 25 mg tablet 25 mg PO Q6H PRN PRN Nausea #10 TABLETS 05/23/22 [Rx Last Taken Unknown] dicyclomine 20 mg tablet 20 mg PO TID #14 tabs 07/30/22 [Rx Last Taken Unknown] scopolamine base 1 mg over 3 days transdermal patch 1 patch transdermal Q3D #10 ea 09/23/22 [Rx Last Taken Unknown] ustekinumab 90 mg/mL subcutaneous syringe (Stelara) 90 mg subcut Q8W #1 mL 09/30/22 [Rx Last Taken Unknown] albuterol sulfate 90 mcg/actuation aerosol inhaler (Ventolin HFA) 1 inh inhalation Q6H PRN ASTHMA 10/24/22 [History Last Taken Unknown] lisinopril 30 mg tablet 30 mg PO DAILY 10/24/22 [History Last Taken Unknown] hydrocodone-acetaminophen 5-325mg 5mg-325mg 1 - 2 tab PO Q4H PRN pain 5 days #20 tabs 10/25/22 [Rx Last Taken Unknown] Allergy/AdvReac Type Severity Reaction Status Date / Time amoxicillin Allergy Rash Verified 10/28/22 09:40 tramadol Allergy Rash Verified 10/28/22 09:40 Family History Mother Mental disorder Surgical History History of esophagogastroduodenoscopy (EGD) S/P ERCP S/P laparoscopic cholecystectomy Social History household members: children Smoking Status: Current every day smoker tobacco type: cigarettes substance use type: does not use ROS ROS ED Constitutional Constitutional ED: Denies chills or fever(s) Eyes Eyes: Denies change in vision or diplopia ENT ENT ED: Denies rhinorrhea or sore throat Cardiovascular Cardiovascular: Denies chest pain or palpitations Respiratory/Chest Respiratory/Chest: Denies cough or dyspnea Gastrointestinal Gastrointestinal: Reports abdominal pain and nausea; Denies diarrhea, melena or vomiting Genitourinary Genitourinary ED: Denies dysuria or hematuria Musculoskeletal Musculoskeletal: Denies back pain or neck pain Integumentary Denies abscess or rash Neurologic Neurologic: Denies headache(s), paresthesias or weakness Psychiatric Psychiatric: Denies anxiety or suicidal thoughts EXAM Physical Exam Const Vital Signs: 10/28/22 09:41 Temperature 97.7 F L Temperature Source Temporal Pulse Rate 91 Respiratory Rate 24 H Blood Pressure 136/114 H Blood Pressure Mean 121 Pulse Ox 100 Oxygen Delivery Method Room Air Positive well nourished and well developed Constitutional Narrative: Mild painful distress, tearful General Appearance ED: well developed HEENT Reports moist mucous membranes normocephalic and atraumatic Eyes PERRL and EOMs intact bilaterally Neck full ROM and supple Resp normal respiratory effort and clear to auscultation bilaterally Cardio regular rate, regular rhythm and no murmurs GI non-distended GI Narrative: Extremely tender with some involuntary guarding right upper quadrant, the rest of the abdomen is tender but without guarding or rebound tenderness. The abdomen is soft. Laparoscopic incisions scattered around the abdomen are clean, dry, without signs of any infection or dehiscence, with Steri-Strips intact over them. Auscultation: normoactive bowel sounds Palpation: soft Back/Spine no CVA tenderness General Back: other FROM Extremity normal to inspection General Extremety ED: Negative for edema, pulses abnormal or tenderness General Extremity: Negative for edema or pulses abnormal Neuro oriented x3, CN's II-XII intact bilaterally and no sensory deficits noted Sensorium / Orientation: awake and alert Motor Exam: strength 5/5 throughout Skin no rashes or lesions noted and no wounds MDM MDM MDM Narrative Medical decision making narrative: Obtain labs and a CT and urinalysis. All normal. The CT shows some postoperative changes, nothing concerning for bile leak, plus she already has a biliary stent, and it does show an involuting right ovarian cyst with some free fluid nearby suggesting possible rupture, I discussed this with her after treating her pain, which helped some, she states yes prior to her surgery she started having some pain in her right pelvis that felt similar potentially to a prior ovarian cyst she has had in the past, she also has Crohn's, she cannot tell if this feels like her Crohn's disease or not, I touched base with Dr. Pardo who does not recommend any other imaging test based on what we know, I reassured the patient, I see no postoperative complications here, and I think it would be reasonable to treat her symptoms. She still has pain medications at home, we will give her a dose of Toradol here in addition to some other pain medication prior to discharge she is comfortable with that plan following up as scheduled before. Lab Data Attestation: I reviewed the patient's lab results. Labs: Laboratory Results - last 24 hr 10/28/22 10/28/22 10/28/22 09:50 10:00 10:00 WBC 6.2 RBC 4.04 L Hgb 12.7 Hct 37.1 MCV 91.8 MCH 31.4 MCHC 34.2 RDW Std Deviation 42.6 RDW Coeff of Kim 12.8 Plt Count 378 MPV 9.3 Immature Gran % (Auto) 0.300 Neut % (Auto) 46.6 L Lymph % (Auto) 40.9 Harlan % (Auto) 9.8 Eos % (Auto) 1.6 Baso % (Auto) 0.8 Absolute Neuts (auto) 2.9 Absolute Lymphs (auto) 2.54 Nucleated RBC % 0 Sodium 139 Potassium 3.4 L Chloride 108 H Carbon Dioxide 22.0 Anion Gap 9 BUN 7 Creatinine 0.82 Estim Creat Clear Calc 76.95 Est GFR (MDRD) Af Amer 100 Est GFR (MDRD) Non-Af 83 BUN/Creatinine Ratio 8.6 L Glucose 91 Calcium 9.1 Total Bilirubin 0.30 AST 19 ALT 45 Alkaline Phosphatase 80 Total Protein 7.2 Albumin 3.6 Globulin 3.6 Albumin/Globulin Ratio 1.0 Lipase 24 Urine Color Yellow Urine Clarity Clear Urine pH 6.0 Ur Specific Sellers 1.015 Urine Protein Negative Urine Glucose (UA) Normal Urine Ketones 5 H Urine Occult Blood Negative Urine Nitrite Negative Urine Bilirubin Negative Urine Urobilinogen 1 H Ur Leukocyte Esterase 25 H Urine RBC 0 SEEN Urine WBC 0-5 SEEN Ur Squamous Epith Cells 5-10 SEEN Urine Bacteria 0 SEEN Urine Mucus 0 SEEN Radiography Diagnostic Testing: Clinical Impression(s) from Imaging Studies Abdomen/Pelvis CT 10/28/22 09:54 IMPRESSION: Trace fluid and edema in the gallbladder fossa status post cholecystectomy. Interval biliary stent placement. Small involuting right ovarian cyst with trace free fluid in the pelvis. 3.2 cm left ovarian cyst. 2.3 cm round uterine lesion, likely leiomyoma. Colonic diverticulosis without acute diverticulitis. Electronically Signed: Yamila Patel MD at 10:52 EDT Reading Location ID and State: [facility] / [place] Tel , Service support , My interpretation of the CT agrees with that of the radiologist. I reviewed the images as well. I agree with the report. Discharge Plan Triage Chief Complaint: Abd Pain Other Complaint: Nausea/Vomiting ED Provider: Louis Saul Dx/Rx/DC Orders Clinical Impression: Diffuse abdominal pain, Rupture of cyst of right ovary Instructions: Abdominal Pain Prescriptions: No Action hydroxyzine pamoate 25 mg capsule 25 mg PO QHS escitalopram oxalate [Lexapro] 20 mg tablet 20 mg PO DAILY lamotrigine [Lamictal] 100 mg tablet 200 mg PO DAILY promethazine [promethazine] 25 mg tablet 25 mg PO Q6H PRN PRN (Reason: Nausea) Qty: 10 0RF dicyclomine 20 mg tablet 20 mg PO TID Qty: 14 0RF lisinopril 30 mg Tablet 30 mg PO DAILY albuterol sulfate [Ventolin HFA] 90 mcg/actuation Hfa Aerosol Inhaler 1 inh INHALATION Q6H PRN (Reason: ASTHMA) hydrocodone-acetaminophen 5-325 mg tablet 1 - 2 tab PO Q4H PRN (Reason: pain) 5 Days Qty: 20 0RF scopolamine base 1 mg over 3 days patch 3 day 1 patch transdermal Q3D Qty: 10 3RF Stelara 90 mg/mL syringe 90 mg subcut Q8W Qty: 1 5RF Rx Instructions: Crohn's Primary Care Provider: PodlogMichelle turcios NP Referrals: Zeke Rascon MD [Med Staff - Active Staff] - Keep Mario appointment Michelle Grimm NP, [employer] [Primary Care Provider] - Disposition Disposition: Home, Self Care
[2022-10-28 10:04] LABS: Bacteria 0 SEEN /hpf (None Seen); Mucous, Urine 0 SEEN /hpf (<or=2+); Red Blood Cells-Urine 0 SEEN /hpf (0-5)
[2022-10-28] MEDS: 0.9% Normal Saline 1,000 ML 1000 ML IV (10:04)
[2022-10-28] MEDS: Ondansetron 4 MG/2 ML Vial IV (10:05)
[2022-10-28] MEDS: Morphine 4 MG/ML Syringe IV ×2 (10:05→11:10)
[2022-10-28 10:10] LABS: Color, Urine Yellow (Yellow); Glucose, Dipstick Normal (Normal); Ketone-Dipstick 5 mg/dl (Negative); Leukocyte Esterase-Dipstick 25 /ul (Negative); Nitrite-Dipstick Negative (Negative); Occult Blood-Urine Negative /ul (Negative); Protein-Dipstick Negative (Negative); Specific Gravity, Urine 1.015 (1.002-1.030); Urine Bilirubin Dipstick Negative (Negative); Urine Clarity Clear (Clear); Urine Urobilinogen 1 mg/dl (Normal)
[2022-10-28 10:18] LABS: Absolute Lymphocyte Count 2.54 X10^3/uL (0.83-4.51); Absolute Neutrophil Count 2.9 X10^3/uL (2.0-7.7); Basophil# 0.05 X10^3/uL; Basophil% 0.8 % (0-1); Eosinophils% 1.6 % (0-5); Hematocrit 37.1 % (37-47); Hemoglobin 12.7 g/dL (12.0-15.0); Lymphocyte # 2.54 X10^3/ul (0.83-4.51); Lymphocyte % 40.9 % (19-41); Mean Corp Hgb Conc 34.2 g/dL (32-36); Mean Corpuscular Hgb 31.4 pg (27.0-32.0); Mean Corpuscular Volume 91.8 fL (81-99); Mean Platelet Vol. 9.3 fl (6.2-12.0); Monocyte# 0.61 X10^3/uL; Monocyte% 9.8 % (0-10); NRBC Flagged by Analyzer 0 % (0-5); Neutrophil # 2.89 X10^3/uL (2.7-7.7); Neutrophil % 46.6 % (47-70); Platelet Count 378 K/mm3 (150-450); RBC Distribution Width CV 12.8 % (11.6-14.6); RBC Distribution Width SD 42.6 fl (35.1-43.9); Red Blood Count 4.04 M/mm3 (4.2-5.4); White Blood Count 6.2 K/mm3 (4.4-11.0)
[2022-10-28 10:25] LABS: Squamous Epithelial Cells - UA 5-10 SEEN /hpf (5-10); White Blood Cells 0-5 SEEN /hpf (0-5)
[2022-10-28 10:52] LABS: AST(SGOT) 19 U/L (15-37); Alanine Aminotransfer ALT/SGPT 45 U/L (13-56); Albumin, Serum 3.6 g/dL (3.2-5.0); Alkaline Phosphatase 80 U/L (45-117); Anion Gap 9 (5-15); BUN 7 mg/dL (7-18); BUN/Creat Ratio 8.6 RATIO (10-20); Calcium,Total 9.1 mg/dL (8.5-10.1); Chloride 108 mmol/L (98-107); Creatinine, Serum 0.82 mg/dL (0.55-1.02); EST Glomerular Filtration Rate 83 mL/min (>60); Est Glom Filt Rate - Afr Amer 100 mL/min (>60); Estimated Creatinine Clearance 76.95 ml/min; Globulin 3.6 g/dL (2.2-4.2); Glucose 91 mg/dL (74-106); Lipase 24 U/L (13-75); Potassium 3.4 mmol/L (3.5-5.1); Protein, Total 7.2 g/dL (6.4-8.2); Sodium Level 139 mmol/L (136-145)
[2022-10-28] MEDS: Ketorolac 30 MG/ML Syringe IV (11:11)
== END 2022-10-28 11:21 | disposition home or self-care (01) ==
PROVIDERS: Emergency Provider Emergency Medicine; PCP Nurse Practitioner Primary Care; Visit Provider Emergency Medicine
DX: R10.84 Generalized abdominal pain (principal); K50.90 Crohn's disease, unspecified, without complications; N83.201 Unspecified ovarian cyst, right side; R11.0 Nausea; I10 Essential (primary) hypertension; Z90.49 Acquired absence of other specified parts of digestive tract; Z79.899 Other long term (current) drug therapy; F17.210 Nicotine dependence, cigarettes, uncomplicated
CPT/HCPCS: 74177; 80053; 81001; 83690; 85025; 96361; 96374; 96375; 96376; 99283; J7030; Q9967; A4216; J2405

== ENCOUNTER 2022-11-23 12:00 | Emergency (ER) | payer MEDICAID, SELFPAY ==
[2022-11-23 12:01] VITALS: BP 128/87; PULSE 96; RESP 14; TEMP 36.6; O2SAT 99; BMI 32.5
--- NOTE | 2022-11-23 12:33 | CT_ITS ---
STUDY: CT ABDOMEN AND PELVIS WITH CONTRAST - URINARY TRACT REASON FOR EXAM: Female, 37 years old. Lower abd pain. Crohn''s hx RADIATION DOSAGE (If Supplied By Facility): CTDIvol = ( 13.32 ) mGy, DLP = ( 790.59 ) mGycm TECHNIQUE: IV 100mL Isovue-370 was administered. Transaxial images were obtained from the dome of the diaphragm to the symphysis pubis in the arterial, nephrographic and excretory phases. Multiplanar coronal and sagittal images were reformatted. Individualized Dose Optimization Techniques Were Used For This CT. COMPARISON: 10/28/2022. FINDINGS: The visualized lung bases are unremarkable. The visualized portions of the heart are within normal limits. Normal liver. Absent gallbladder absent gallbladder consistent with previous cholecystectomy. Common bile duct stent in stable position. Pneumobilia new since previous exam. Normal spleen. Normal pancreas. Normal bilateral adrenal glands. Normal visualized stomach. Normal small intestine. Thickening of the rectosigmoid colon could be due to underdistention. No evidence of acute diverticulitis. The appendix is visualized and appears normal. No evidence of abdominal aortic aneurysm. No retroperitoneal adenopathy. Normal right kidney. Normal left kidney. Normal urinary bladder. Free fluid in the pelvis new since previous examination. 2.1 cm cyst likely right adnexal in origin. Metallic densities from previous tubal ligation. Previously noted left ovarian cyst has resolved. Somewhat heterogeneous uterus better evaluated by ultrasound. Small umbilical hernia containing fat. Unremarkable osseous structures. CT/Abdomen/Pelvis W IV Cont ONLY IMPRESSION: 1. Status post common bile duct stent placement in stable position. 2. Mild pneumobilia. 3. Thickening of the rectosigmoid colon likely due to underdistention. Colitis cannot be excluded. 4. Mild free fluid in the pelvis. Electronically Signed: Tony Goldstein MD at 13:33 EDT ,
--- NOTE | 2022-11-23 12:35 | ED.VIS.GI ---
HPI HPI - GI History of Present Illness Chief Complaint: Abd Pain Informant: patient Abdominal Pain/Flank Pain Onset: Hours Context: Gradual Onset Timing: Continuous Quality: Aching and Cramping Location: RLQ and LLQ Current Severity: Mild Maximum Severity: Mild Worsened by: Nothing Relieved by: Nothing Nausea/Vomiting/Emesis GI Symptom: Positive for Nausea Onset: Today Severity: Mild Diarrhea/Melena/Hematochezia GI Symptom: Positive for Diarrhea; Negative for Melena or Hematochezia Onset: Today Stool Quality: Positive for Loose Severity: Mild Associated Symptoms Associated Symptoms: Negative for Dysuria, Frequency, Hematuria or Urgency Narrative Narrative: 36-[id number]-year-old female history of Crohn's. Had a cholecystectomy a month ago. States around 6 AM this morning she started having nausea, loose stools and lower abdominal discomfort. Denies any fever or chills. No dysuria. Last menstrual period was about 2 weeks ago and normal. Other than her cholecystectomy she has not had other abdominal surgeries. No prior bowel resection. Still has her appendix. Prior similar symptoms: Yes Recent Illness/Hospitalization: Yes PFSH PFSH Medical History Anemia Anxiety Asthma Bipolar 1 disorder Depression Heartburn History of blood transfusion History of Crohn's disease Hypertension Low iron Marijuana use Migraine headache Smoker Home Medications escitalopram oxalate 20 mg tablet (Lexapro) 20 mg PO DAILY 08/15/21 [History Last Taken Unknown] hydroxyzine pamoate 25 mg capsule 25 mg PO QHS 08/15/21 [History Last Taken Unknown] lamotrigine 100 mg tablet (Lamictal) 200 mg PO DAILY 08/15/21 [History Last Taken Unknown] promethazine 25 mg tablet 25 mg PO Q6H PRN PRN Nausea #10 TABLETS 05/23/22 [Rx Last Taken Unknown] dicyclomine 20 mg tablet 20 mg PO TID #14 tabs 07/30/22 [Rx Last Taken Unknown] scopolamine base 1 mg over 3 days transdermal patch 1 patch transdermal Q3D #10 ea 09/23/22 [Rx Last Taken Unknown] ustekinumab 90 mg/mL subcutaneous syringe (Stelara) 90 mg subcut Q8W #1 mL 09/30/22 [Rx Last Taken Unknown] albuterol sulfate 90 mcg/actuation aerosol inhaler (Ventolin HFA) 1 inh inhalation Q6H PRN ASTHMA 10/24/22 [History Last Taken Unknown] lisinopril 30 mg tablet 30 mg PO DAILY 10/24/22 [History Last Taken Unknown] hydrocodone-acetaminophen 5-325mg 5mg-325mg 1 - 2 tab PO Q4H PRN pain 5 days #20 tabs 10/25/22 [Rx Last Taken Unknown] ciprofloxacin HCl 500 mg tablet (Cipro) 500 mg PO DAILY 10 days #10 tabs 11/23/22 [Rx Last Taken Unknown] hydrocodone 5 mg-acetaminophen 300 mg tablet 1 tab PO Q6H PRN pain 3 days #14 tabs 11/23/22 [Rx Last Taken Unknown] metronidazole 500 mg tablet 500 mg PO Q8H 10 days #30 tabs 11/23/22 [Rx Last Taken Unknown] prednisone 20 mg tablet 40 mg (2 x 20 mg) PO DAILY 14 days #28 tabs 11/23/22 [Rx Last Taken Unknown] Allergy/AdvReac Type Severity Reaction Status Date / Time amoxicillin Allergy Rash Verified 11/23/22 12:02 tramadol Allergy Rash Verified 11/23/22 12:02 Family History Mother Mental disorder Surgical History History of esophagogastroduodenoscopy (EGD) S/P ERCP S/P laparoscopic cholecystectomy Social History household members: children Smoking Status: Current every day smoker tobacco type: cigarettes substance use type: does not use ROS ROS ED ROS Narrative Nausea, loose stools lower abdominal pain. Review of Systems ROS Unobtainable: Denies due to encephalopathy Constitutional Constitutional ED: Denies chills or fever(s) ENT ENT ED: Denies ear pain Cardiovascular Cardiovascular: Denies chest pain Respiratory/Chest Respiratory/Chest: Denies cough or dyspnea Gastrointestinal Gastrointestinal: Reports abdominal pain, diarrhea and nausea; Denies constipation, melena or vomiting Genitourinary Genitourinary ED: Denies dysuria or hematuria Musculoskeletal Musculoskeletal: Denies arthralgias or back pain Integumentary Denies abscess Neurologic Neurologic: Denies headache(s) Psychiatric Psychiatric: Denies anxiety Endocrine Endocrinology: Denies polydipsia Hematologic/Lymphatic Hematologic/Lymphatic: Denies easy bleeding Allergic/Immunologic Allergic/Immunologic ED: Denies mouth swelling EXAM Physical Exam Narrative Exam Narrative: Well-appearing 37-year-old female. Vital signs stable afebrile. HEENT exam unremarkable. Moist extremities. Neck nontender. No lymphadenopathy. Lungs clear to auscultation bilaterally. Heart regular rhythm rate about 90 no murmur. Abdomen soft, nondistended normal bowel sounds no peritoneal signs. Mild tenderness both right and left lower quadrants. No hernia or mass. No distention. Moving all 4 extremities. Nontender. No edema. Normal strength. Neurologically she is awake and alert with no focal motor deficits. Const Vital Signs: 11/23/22 12:01 Temperature 97.9 F Temperature Source Temporal Pulse Rate 96 Respiratory Rate 14 Blood Pressure 128/87 H Blood Pressure Mean 100 Pulse Ox 99 Oxygen Delivery Method Room Air Positive well nourished and well developed; Negative for obese, cachectic, contractures or unkempt General Appearance ED: well developed and NAD; Negative for unkempt, cachectic, contractures or pallor Nutritional Appearance: Negative for cachectic or obese HEENT Reports moist mucous membranes normocephalic and atraumatic; Negative for trauma or tenderness Eyes PERRL and EOMs intact bilaterally General Eye ED: Negative for pale conjunctiva or scleral icterus Neck no lymphadenopathy, supple and no JVD General: Negative for tenderness Carotids: Negative for other Lymph Lymphatic: Negative for other Resp normal respiratory effort and clear to auscultation bilaterally Effort and Inspection: Negative for respiratory distress Auscultation: Negative for rales, rhonchi or wheezes Cardio regular rate, regular rhythm, S1 normal heart sound, S2 normal heart sound and no murmurs Rate: Negative for bradycardia or tachycardic Rhythm: Negative for abnormal rhythm GI non-distended and no masses; Negative for non-tender Inspection: Negative for abdominal distention Auscultation: normoactive bowel sounds Palpation: soft and tender; Negative for guarding, rigid, hepatomegaly, splenomegaly, hernia, mass, pulsatile mass or rebound tenderness present Back/Spine no CVA tenderness General Back: Negative for CVA tenderness Cervical Spine: Negative for cervical spine tenderness Thoracic Spine / Upper Back: Negative for thoracic spinal tenderness Lumbar Spine / Lower Back: Negative for lumbar spinal tenderness Coccyx: Negative for other Extremity full ROM General Extremety ED: Negative for edema or tenderness General Extremity: Negative for edema Neuro CN's II-XII intact bilaterally and moves all extremities Sensorium / Orientation: alert, oriented to person, oriented to place and oriented to time; Negative for orientation impaired, confused, lethargic or stuporous Motor Exam: strength 5/5 throughout Psych mental status grossly normal and thought process normal Appearance: Negative for unkempt Attitude: No agitated Mood & Affect: Negative for depressed, anxious or tearful Skin no wounds General Skin Exam: Negative for jaundice or pallor Lesions: no lesions Rashes: no rashes Trauma: Negative for abrasion Nails: Negative for discolored MDM MDM MDM Narrative Medical decision making narrative: 29-year-old female with lower abdominal pain bilaterally. History of Crohn's. CAT scan labs are being obtained. Most likely a Crohn's flare. She has no urinary symptoms so feel that is less likely. She had a normal menstrual period 2 weeks ago. Still has her appendix and months old yet this is appendicitis. She also be treated IV fluids, Zofran for nausea and morphine for pain. Repeat exam at 1:38 PM patient is doing well. She and I went over her test results. CAT scan shows all inflammation of her sigmoid colon. I spoke to her tube operator, Dr. Ojeda. He and I discussed her treatment plan. She will be discharged home. Cipro daily. Flagyl 3 times a day. Prednisone 40 mg a day for 2 weeks. Vicodin for pain. Call his office for follow-up. Return if worse. History & Record Review Discussion w/independent historian: Patient Lab Data Attestation: I reviewed the patient's lab results. Lab results narrative: CBC shows a white count of 6. H&H 12.6 and 37. Platelets 380. Electrolytes show a gap of 7. Normal BUN and creatinine is 0.9. Liver enzymes are normal. Serum test is negative. Urinalysis normal. No white or red cells. No bacteria nor nitrates. Labs: Laboratory Results - last 24 hr 11/23/22 11/23/22 12:47 13:25 WBC 6.0 RBC 4.05 L Hgb 12.6 Hct 37.5 MCV 92.6 MCH 31.1 MCHC 33.6 RDW Std Deviation 43.8 RDW Coeff of Kim 12.8 Plt Count 380 MPV 9.1 Immature Gran % (Auto) 0.300 Neut % (Auto) 47.1 Lymph % (Auto) 42.0 H [place] % (Auto) 8.4 Eos % (Auto) 1.7 Baso % (Auto) 0.5 Absolute Neuts (auto) 2.8 Absolute Lymphs (auto) 2.51 Nucleated RBC % 0 Sodium 139 Potassium 3.5 Chloride 108 H Carbon Dioxide 24.0 Anion Gap 7 BUN 8 Creatinine 0.95 Estim Creat Clear Calc 66.42 Est GFR (MDRD) Af Amer 84 Est GFR (MDRD) Non-Af 69 BUN/Creatinine Ratio 8.4 L Glucose 83 Calcium 8.9 Total Bilirubin 0.30 AST 14 L ALT 31 Alkaline Phosphatase 75 Total Protein 7.3 Albumin 3.7 Globulin 3.6 Albumin/Globulin Ratio 1.0 Serum , Qual NEGATIVE Urine Color Yellow Urine Clarity Clear Urine pH 6.0 Ur Specific [place] 1.010 Urine Protein Negative Urine Glucose (UA) Normal Urine Ketones Negative Urine Occult Blood Negative Urine Nitrite Negative Urine Bilirubin Negative Urine Urobilinogen Normal Ur Leukocyte Esterase Negative Urine RBC 0 SEEN Urine WBC 0 SEEN Ur Squamous Epith Cells 0 SEEN Urine Bacteria 0 SEEN Urine Mucus 0 SEEN Radiography Diagnostic Testing: Clinical Impression(s) from Imaging Studies Abdomen/Pelvis CT 11/23/22 12:33 IMPRESSION: 1. Status post common bile duct stent placement in stable position. 2. Mild pneumobilia. 3. Thickening of the rectosigmoid colon likely due to underdistention. Colitis cannot be excluded. 4. Mild free fluid in the pelvis. Electronically Signed: Tony Goldstein MD at 13:33 EDT , Discharge Plan Triage Chief Complaint: Abd Pain ED Provider: Marquise Solares Dx/Rx/DC Orders Clinical Impression: Crohn's disease Instructions: Crohns Disease Dc Prescriptions: New hydrocodone-acetaminophen 5-300 mg tablet 1 tab PO Q6H PRN (Reason: pain) 3 Days Qty: 14 0RF prednisone 20 mg tablet 40 mg PO DAILY 14 Days Qty: 28 0RF ciprofloxacin HCl [Cipro] 500 mg tablet 500 mg PO DAILY 10 Days Qty: 10 0RF metronidazole 500 mg tablet 500 mg PO Q8H 10 Days Qty: 30 0RF No Action hydroxyzine pamoate 25 mg capsule 25 mg PO QHS escitalopram oxalate [Lexapro] 20 mg tablet 20 mg PO DAILY lamotrigine [Lamictal] 100 mg tablet 200 mg PO DAILY promethazine [promethazine] 25 mg tablet 25 mg PO Q6H PRN PRN (Reason: Nausea) Qty: 10 0RF dicyclomine 20 mg tablet 20 mg PO TID Qty: 14 0RF lisinopril 30 mg Tablet 30 mg PO DAILY albuterol sulfate [Ventolin HFA] 90 mcg/actuation Hfa Aerosol Inhaler 1 inh INHALATION Q6H PRN (Reason: ASTHMA) hydrocodone-acetaminophen 5-325 mg tablet 1 - 2 tab PO Q4H PRN (Reason: pain) 5 Days Qty: 20 0RF scopolamine base 1 mg over 3 days patch 3 day 1 patch transdermal Q3D Qty: 10 3RF Stelara 90 mg/mL syringe 90 mg subcut Q8W Qty: 1 5RF Rx Instructions: Crohn's Primary Care Provider: PodlogMichelle turcios NP Referrals: Kenn Ojeda DO [Med Staff - Active Staff] - 1 Week PodMichelle baird NP, [facility] [Primary Care Provider] - Activity Restrictions/Additional Instructions: Follow-up with Dr. Ojeda within the next week. Vicodin for pain. Cipro 1 pill a day for 10 days. Discussed Flagyl 1 pill 3 times a day. Prednisone 40 mg a day for 2 weeks. Plenty of fluids and rest. Return if feeling worse. Disposition Disposition: Home, Self Care
[2022-11-23] MEDS: 0.9% Normal Saline 1,000 ML 1000 ML IV (12:41)
[2022-11-23] MEDS: Ondansetron 4 MG/2 ML Vial IV (12:42)
[2022-11-23] MEDS: Morphine 4 MG/ML Syringe 6 MG IV (12:42)
[2022-11-23 12:53] LABS: Absolute Lymphocyte Count 2.51 X10^3/uL (0.83-4.51); Absolute Neutrophil Count 2.8 X10^3/uL (2.0-7.7); Basophil# 0.03 X10^3/uL; Basophil% 0.5 % (0-1); Eosinophils% 1.7 % (0-5); Hematocrit 37.5 % (37-47); Hemoglobin 12.6 g/dL (12.0-15.0); Lymphocyte # 2.51 X10^3/ul (0.83-4.51); Mean Corp Hgb Conc 33.6 g/dL (32-36); Mean Corpuscular Hgb 31.1 pg (27.0-32.0); Mean Corpuscular Volume 92.6 fL (81-99); Mean Platelet Vol. 9.1 fl (6.2-12.0); Monocyte% 8.4 % (0-10); NRBC Flagged by Analyzer 0 % (0-5); Neutrophil # 2.81 X10^3/uL (2.7-7.7); Neutrophil % 47.1 % (47-70); Platelet Count 380 K/mm3 (150-450); RBC Distribution Width CV 12.8 % (11.6-14.6); RBC Distribution Width SD 43.8 fl (35.1-43.9); Red Blood Count 4.05 M/mm3 (4.2-5.4)
[2022-11-23 13:00] LABS: Internal QC Validated? YES +Cl - CLEAR BKGD; Pregnancy, Serum, hCG Quali. NEGATIVE Negative
[2022-11-23 13:08] LABS: AST(SGOT) 14 U/L (15-37); Alanine Aminotransfer ALT/SGPT 31 U/L (13-56); Albumin, Serum 3.7 g/dL (3.2-5.0); Alkaline Phosphatase 75 U/L (45-117); Anion Gap 7 (5-15); BUN 8 mg/dL (7-18); BUN/Creat Ratio 8.4 RATIO (10-20); Calcium,Total 8.9 mg/dL (8.5-10.1); Chloride 108 mmol/L (98-107); Creatinine, Serum 0.95 mg/dL (0.55-1.02); EST Glomerular Filtration Rate 69 mL/min (>60); Est Glom Filt Rate - Afr Amer 84 mL/min (>60); Estimated Creatinine Clearance 66.42 ml/min; Globulin 3.6 g/dL (2.2-4.2); Glucose 83 mg/dL (74-106); Potassium 3.5 mmol/L (3.5-5.1); Protein, Total 7.3 g/dL (6.4-8.2); Sodium Level 139 mmol/L (136-145)
[2022-11-23 13:32] LABS: Bacteria 0 SEEN /hpf (None Seen); Mucous, Urine 0 SEEN /hpf (<or=2+); Red Blood Cells-Urine 0 SEEN /hpf (0-5); Squamous Epithelial Cells - UA 0 SEEN /hpf (5-10); White Blood Cells 0 SEEN /hpf (0-5)
[2022-11-23 13:47] LABS: Glucose, Dipstick Normal (Normal); Ketone-Dipstick Negative (Negative); Leukocyte Esterase-Dipstick Negative /ul (Negative); Nitrite-Dipstick Negative (Negative); Occult Blood-Urine Negative /ul (Negative); Protein-Dipstick Negative (Negative); Urine Bilirubin Dipstick Negative (Negative); Urine Urobilinogen Normal (Normal)
[2022-11-23 13:48] LABS: Color, Urine Yellow (Yellow); Urine Clarity Clear (Clear)
[2022-11-23] MEDS: morphine 8 MG/ML Syringe 6 MG IV (13:51)
[2022-11-23 15:37] VITALS: BP 132/83; PULSE 64; RESP 16; O2SAT 99
[2022-11-23] MEDS: predniSONE 20 MG Tablet 40 MG PO (15:38)
== END 2022-11-23 15:42 | disposition home or self-care (01) ==
PROVIDERS: Emergency Provider Emergency Medicine; PCP Nurse Practitioner Primary Care; Visit Provider Emergency Medicine
DX: K50.90 Crohn's disease, unspecified, without complications (principal); I10 Essential (primary) hypertension; F17.210 Nicotine dependence, cigarettes, uncomplicated; Z79.899 Other long term (current) drug therapy; Z90.49 Acquired absence of other specified parts of digestive tract
CPT/HCPCS: 74177; 80053; 81001; 84703; 85025; 96361; 96374; 96375; 96376; 99283; J7030; Q9967; A4216; J2405

== ENCOUNTER 2022-12-06 16:32 | Emergency (ER) | payer MEDICAID, SELFPAY ==
[2022-12-06 16:33] VITALS: BP 141/95; PULSE 96; RESP 17; TEMP 36.1; O2SAT 100; BMI 34.2
[2022-12-06 16:52] LABS: Mucous, Urine 0 SEEN /hpf (<or=2+); Red Blood Cells-Urine 0 SEEN /hpf (0-5)
[2022-12-06 16:53] LABS: Color, Urine Yellow (Yellow); Glucose, Dipstick Normal (Normal); Ketone-Dipstick 5 mg/dl (Negative); Leukocyte Esterase-Dipstick 25 /ul (Negative); Nitrite-Dipstick Negative (Negative); Occult Blood-Urine Negative /ul (Negative); Protein-Dipstick 15 mg/dl (Negative); Urine Bilirubin Dipstick Negative (Negative); Urine Clarity Sl. Cloudy (Clear); Urine Urobilinogen Normal (Normal)
[2022-12-06 17:01] LABS: Amorphous Sediment 1+; Bacteria RARE /hpf (None Seen); Squamous Epithelial Cells - UA 0-5 SEEN /hpf (5-10); White Blood Cells 0-5 SEEN /hpf (0-5)
[2022-12-06] MEDS: Ketorolac 15 MG/ML Vial IV (17:51)
[2022-12-06] MEDS: Ondansetron 4 MG/2 ML Vial IV (17:51)
[2022-12-06 18:06] LABS: Internal QC Validated? YES +Cl - CLEAR BKGD; Pregnancy, Serum, hCG Quali. NEGATIVE Negative
[2022-12-06 18:07] LABS: AST(SGOT) 15 U/L (15-37); Absolute Lymphocyte Count 1.03 X10^3/uL (0.83-4.51); Absolute Neutrophil Count 11.3 X10^3/uL (2.0-7.7); Alanine Aminotransfer ALT/SGPT 70 U/L (13-56); Albumin, Serum 3.2 g/dL (3.2-5.0); Alkaline Phosphatase 68 U/L (45-117); Anion Gap 2 (5-15); BUN 11 mg/dL (7-18); BUN/Creat Ratio 14.3 RATIO (10-20); Basophil# 0.01 X10^3/uL; Basophil% 0.1 % (0-1); Calcium,Total 8.7 mg/dL (8.5-10.1); Chloride 107 mmol/L (98-107); Creatinine, Serum 0.77 mg/dL (0.55-1.02); EST Glomerular Filtration Rate 89 mL/min (>60); Est Glom Filt Rate - Afr Amer 107 mL/min (>60); Estimated Creatinine Clearance 81.95 ml/min; Globulin 3.3 g/dL (2.2-4.2); Glucose 107 mg/dL (74-106); Hematocrit 36.7 % (37-47); Hemoglobin 12.2 g/dL (12.0-15.0); Lymphocyte # 1.03 X10^3/ul (0.83-4.51); Lymphocyte % 8.1 % (19-41); Mean Corp Hgb Conc 33.2 g/dL (32-36); Mean Corpuscular Hgb 31.5 pg (27.0-32.0); Mean Corpuscular Volume 94.8 fL (81-99); Mean Platelet Vol. 9.1 fl (6.2-12.0); Monocyte# 0.31 X10^3/uL; Monocyte% 2.4 % (0-10); NRBC Flagged by Analyzer 0 % (0-5); Neutrophil % 88.8 % (47-70); Platelet Count 397 K/mm3 (150-450); Potassium 4.2 mmol/L (3.5-5.1); Protein, Total 6.5 g/dL (6.4-8.2); RBC Distribution Width SD 44.7 fl (35.1-43.9); Red Blood Count 3.87 M/mm3 (4.2-5.4); Sodium Level 138 mmol/L (136-145); White Blood Count 12.7 K/mm3 (4.4-11.0)
--- NOTE | 2022-12-06 18:16 | ED.VIS.GI ---
HPI <KATHIE Reyez - Last Filed: 12/06/22 20:17> HPI - GI History of Present Illness Chief Complaint: Abd Pain Narrative Narrative: Patient presenting today due to lower abdominal pain that she has had for the past few weeks that acutely worsened 2 days ago. She reports a history of Crohn's disease and was here 2 weeks ago where a CT scan was performed that showed colitis and she was discharged home with Flagyl and Augmentin and prednisone. She reports that her symptoms never fully went away. She reports intermittent soft stools. She feels like she is having abdominal bloating and nausea. She denies any vomiting, fever, chills. She has been urinating frequently but denies any dysuria. PFSH <KATHIE Reyez - Last Filed: 12/06/22 20:17> PFSH Medical History Anemia Anxiety Asthma Bipolar 1 disorder Depression Heartburn History of blood transfusion History of Crohn's disease Hypertension Low iron Marijuana use Migraine headache Smoker Home Medications escitalopram oxalate 20 mg tablet (Lexapro) 20 mg PO DAILY 08/15/21 [History Last Taken Unknown] hydroxyzine pamoate 25 mg capsule 25 mg PO QHS 08/15/21 [History Last Taken Unknown] lamotrigine 100 mg tablet (Lamictal) 200 mg PO DAILY 08/15/21 [History Last Taken Unknown] promethazine 25 mg tablet 25 mg PO Q6H PRN PRN Nausea #10 TABLETS 05/23/22 [Rx Last Taken Unknown] dicyclomine 20 mg tablet 20 mg PO TID #14 tabs 07/30/22 [Rx Last Taken Unknown] scopolamine base 1 mg over 3 days transdermal patch 1 patch transdermal Q3D #10 ea 09/23/22 [Rx Last Taken Unknown] ustekinumab 90 mg/mL subcutaneous syringe (Stelara) 90 mg subcut Q8W #1 mL 09/30/22 [Rx Last Taken Unknown] albuterol sulfate 90 mcg/actuation aerosol inhaler (Ventolin HFA) 1 inh inhalation Q6H PRN ASTHMA 10/24/22 [History Last Taken Unknown] lisinopril 30 mg tablet 30 mg PO DAILY 10/24/22 [History Last Taken Unknown] hydrocodone-acetaminophen 5-325mg 5mg-325mg 1 - 2 tab PO Q4H PRN pain 5 days #20 tabs 10/25/22 [Rx Last Taken Unknown] ciprofloxacin HCl 500 mg tablet (Cipro) 500 mg PO DAILY 10 days #10 tabs 11/23/22 [Rx Last Taken Unknown] hydrocodone 5 mg-acetaminophen 300 mg tablet 1 tab PO Q6H PRN pain 3 days #14 tabs 11/23/22 [Rx Last Taken Unknown] metronidazole 500 mg tablet 500 mg PO Q8H 10 days #30 tabs 11/23/22 [Rx Last Taken Unknown] prednisone 20 mg tablet 40 mg (2 x 20 mg) PO DAILY 14 days #28 tabs 11/23/22 [Rx Last Taken Unknown] Allergy/AdvReac Type Severity Reaction Status Date / Time amoxicillin Allergy Rash Verified 12/06/22 16:32 tramadol Allergy Rash Verified 12/06/22 16:32 Family History Mother Mental disorder Surgical History History of esophagogastroduodenoscopy (EGD) S/P ERCP S/P laparoscopic cholecystectomy Social History household members: children Smoking Status: Current every day smoker tobacco type: cigarettes substance use type: does not use ROS <KATHIE Reyez - Last Filed: 12/06/22 20:17> ROS ED Constitutional Constitutional ED: Denies chills or fever(s) Cardiovascular Cardiovascular: Denies chest pain or palpitations Respiratory/Chest Respiratory/Chest: Denies cough or dyspnea Gastrointestinal Gastrointestinal: Reports abdominal pain and nausea; Denies constipation or vomiting Genitourinary Genitourinary ED: Reports urinary frequency; Denies dysuria or hematuria Musculoskeletal Musculoskeletal: Denies arthralgias or myalgias Integumentary Denies rash Neurologic Neurologic: Denies weakness EXAM <KATHIE Reyez - Last Filed: 12/06/22 20:17> Physical Exam Const Vital Signs: 12/06/22 16:33 Temperature 97 F L Temperature Source Temporal Pulse Rate 96 Respiratory Rate 17 Blood Pressure 141/95 H Blood Pressure Mean 110 Pulse Ox 100 Oxygen Delivery Method Room Air Positive well nourished, well developed and no apparent distress General Appearance ED: well developed HEENT Reports normocephalic and head/scalp atraumatic Mouth ED: Yes moist mucous membranes normal Eyes PERRL and EOMs intact bilaterally Neck full ROM and supple Chest Wall inspection of chest normal Resp normal respiratory effort and clear to auscultation bilaterally Cardio regular rate and regular rhythm GI soft to palpation, non-distended and no masses GI Narrative: Mild tenderness across the lower abdomen. No rigidity or guarding. Back/Spine normal ROM and normal to inspection Extremity normal to inspection and full ROM Neuro oriented x3, CN's II-XII intact bilaterally, moves all extremities, no focal motor deficits and no sensory deficits noted Sensorium / Orientation: awake and alert Psych mental status grossly normal and thought process normal Skin no rashes or lesions noted and no wounds <Dr. Garret Kaiser MD - Last Filed: 12/06/22 23:26> Physical Exam Const Vital Signs: 12/06/22 16:33 Temperature 97 F L Temperature Source Temporal Pulse Rate 96 Respiratory Rate 17 Blood Pressure 141/95 H Blood Pressure Mean 110 Pulse Ox 100 Oxygen Delivery Method Room Air MDM <KATHIE Reyez - Last Filed: 12/06/22 20:17> [facility] Narrative Medical decision making narrative: Patient presenting today due to lower abdominal pain that she has had for 2 weeks or so. She was seen here on 11/23 and had a work-up done that included a CT of her abdomen and pelvis that showed colitis. She was discharged home on Augmentin and Flagyl. She reports that her symptoms never fully went away and worsened 2 days ago. She is well-appearing and in no acute dress ulcer unremarkable. Labs obtained to rule out leukocytosis, anemia, electrolyte abnormality, hepatobiliary etiology, and UTI. She does have slight leukocytosis and slightly elevated ALT but otherwise are unremarkable. I did talk with Dr. Ojeda who reports that patient has a history of marijuana use that is worsening her Crohn's disease and does not feel that she needs any repeat imaging or additional treatment. She has been counseled to discontinue her marijuana use and was given pain control here. She is to follow-up with Dr. Ricks and will be discharged home in stable condition. She is comfortable with plan. Lab Data Attestation: I reviewed the patient's lab results. Labs: Laboratory Results - last 24 hr 12/06/22 12/06/22 16:45 17:35 WBC 12.7 H RBC 3.87 L Hgb 12.2 Hct 36.7 L MCV 94.8 MCH 31.5 MCHC 33.2 RDW Std Deviation 44.7 H RDW Coeff of Kim 13.0 Plt Count 397 MPV 9.1 Immature Gran % (Auto) 0.600 Neut % (Auto) 88.8 H Lymph % (Auto) 8.1 L [place] % (Auto) 2.4 Eos % (Auto) 0.0 Baso % (Auto) 0.1 Absolute Neuts (auto) 11.3 H Absolute Lymphs (auto) 1.03 Nucleated RBC % 0 Sodium 138 Potassium 4.2 Chloride 107 Carbon Dioxide 29.0 Anion Gap 2 L BUN 11 Creatinine 0.77 Estim Creat Clear Calc 81.95 Est GFR (MDRD) Af Amer 107 Est GFR (MDRD) Non-Af 89 BUN/Creatinine Ratio 14.3 Glucose 107 H Calcium 8.7 Total Bilirubin 0.20 AST 15 ALT 70 H Alkaline Phosphatase 68 Total Protein 6.5 Albumin 3.2 Globulin 3.3 Albumin/Globulin Ratio 1.0 Serum , Qual NEGATIVE Urine Color Yellow Urine Clarity Sl. Cloudy Urine pH 7.0 Ur Specific [place] 1.010 Urine Protein 15 H Urine Glucose (UA) Normal Urine Ketones 5 H Urine Occult Blood Negative Urine Nitrite Negative Urine Bilirubin Negative Urine Urobilinogen Normal Ur Leukocyte Esterase 25 H Urine RBC 0 SEEN Urine WBC 0-5 SEEN Ur Squamous Epith Cells 0-5 SEEN Amorphous Sediment 1+ Urine Bacteria RARE Urine Mucus 0 SEEN <Dr. Garret Kaiser MD - Last Filed: 12/06/22 23:26> [facility] MDM Narrative Medical decision making narrative: Patient presenting today due to lower abdominal pain that she has had for 2 weeks or so. She was seen here on 11/23 and had a work-up done that included a CT of her abdomen and pelvis that showed colitis. She was discharged home on Augmentin and Flagyl. She reports that her symptoms never fully went away and worsened 2 days ago. She is well-appearing and in no acute dress ulcer unremarkable. Labs obtained to rule out leukocytosis, anemia, electrolyte abnormality, hepatobiliary etiology, and UTI. She does have slight leukocytosis and slightly elevated ALT but otherwise are unremarkable. I did talk with Dr. Ojeda who reports that patient has a history of marijuana use that is worsening her Crohn's disease and does not feel that she needs any repeat imaging or additional treatment. She has been counseled to discontinue her marijuana use and was given pain control here. She is to follow-up with Dr. Ricks and will be discharged home in stable condition. She is comfortable with plan. Patient seen and evaluated with YOSSI. I personally interviewed and examined the patient. I was involved in all aspects of patient's orders, interpretation of results, and treatment. Patient presents with lower abdominal pain for the past 2 weeks. Patient has history of chronic abdominal pain. She is seen by Dr. Ojeda. She always complains of pain. She denies fever, chills night sweats. She does smoke marijuana daily. She does also complain of nausea and vomiting. She has had multiple ER visits and work-up. Patient's abdomen is benign. Bowel sounds are slightly diminished. There is no CVA tenderness. There is no evidence of trauma. There is no dermatologic lesions noted. Work-up included CBC BMP UA. Her white count is slightly elevated which is nonspecific. There is no bandemia. Urine is normal. Competence of metabolic panel is normal. Lab Data Labs: Laboratory Results - last 24 hr 12/06/22 12/06/22 16:45 17:35 WBC 12.7 H RBC 3.87 L Hgb 12.2 Hct 36.7 L MCV 94.8 MCH 31.5 MCHC 33.2 RDW Std Deviation 44.7 H RDW Coeff of Kim 13.0 Plt Count 397 MPV 9.1 Immature Gran % (Auto) 0.600 Neut % (Auto) 88.8 H Lymph % (Auto) 8.1 L [place] % (Auto) 2.4 Eos % (Auto) 0.0 Baso % (Auto) 0.1 Absolute Neuts (auto) 11.3 H Absolute Lymphs (auto) 1.03 Nucleated RBC % 0 Sodium 138 Potassium 4.2 Chloride 107 Carbon Dioxide 29.0 Anion Gap 2 L BUN 11 Creatinine 0.77 Estim Creat Clear Calc 81.95 Est GFR (MDRD) Af Amer 107 Est GFR (MDRD) Non-Af 89 BUN/Creatinine Ratio 14.3 Glucose 107 H Calcium 8.7 Total Bilirubin 0.20 AST 15 ALT 70 H Alkaline Phosphatase 68 Total Protein 6.5 Albumin 3.2 Globulin 3.3 Albumin/Globulin Ratio 1.0 Serum , Qual NEGATIVE Urine Color Yellow Urine Clarity Sl. Cloudy Urine pH 7.0 Ur Specific [place] 1.010 Urine Protein 15 H Urine Glucose (UA) Normal Urine Ketones 5 H Urine Occult Blood Negative Urine Nitrite Negative Urine Bilirubin Negative Urine Urobilinogen Normal Ur Leukocyte Esterase 25 H Urine RBC 0 SEEN Urine WBC 0-5 SEEN Ur Squamous Epith Cells 0-5 SEEN Amorphous Sediment 1+ Urine Bacteria RARE Urine Mucus 0 SEEN Discharge Plan Triage Chief Complaint: Abd Pain ED Midlevel Provider: Krystle Schafer ED Provider: Garret Kaiser Dx/Rx/DC Orders Clinical Impression: Crohn's disease, Abdominal pain, Cannabis use disorder, Nausea & vomiting Instructions: Crohns Disease Dc Prescriptions: No Action hydroxyzine pamoate 25 mg capsule 25 mg PO QHS escitalopram oxalate [Lexapro] 20 mg tablet 20 mg PO DAILY lamotrigine [Lamictal] 100 mg tablet 200 mg PO DAILY promethazine [promethazine] 25 mg tablet 25 mg PO Q6H PRN PRN (Reason: Nausea) Qty: 10 0RF dicyclomine 20 mg tablet 20 mg PO TID Qty: 14 0RF lisinopril 30 mg Tablet 30 mg PO DAILY albuterol sulfate [Ventolin HFA] 90 mcg/actuation Hfa Aerosol Inhaler 1 inh INHALATION Q6H PRN (Reason: ASTHMA) hydrocodone-acetaminophen 5-325 mg tablet 1 - 2 tab PO Q4H PRN (Reason: pain) 5 Days Qty: 20 0RF hydrocodone-acetaminophen 5-300 mg tablet 1 tab PO Q6H PRN (Reason: pain) 3 Days Qty: 14 0RF prednisone 20 mg tablet 40 mg PO DAILY 14 Days Qty: 28 0RF ciprofloxacin HCl [Cipro] 500 mg tablet 500 mg PO DAILY 10 Days Qty: 10 0RF metronidazole 500 mg tablet 500 mg PO Q8H 10 Days Qty: 30 0RF scopolamine base 1 mg over 3 days patch 3 day 1 patch transdermal Q3D Qty: 10 3RF Stelara 90 mg/mL syringe 90 mg subcut Q8W Qty: 1 5RF Rx Instructions: Crohn's Primary Care Provider: Michelle Grimm NP Referrals: Michelle Grimm NP, [employer] [facility] [Primary Care Provider] - Activity Restrictions/Additional Instructions: Please follow-up with Dr. Ojeda and return for any worsening of your symptoms. Disposition Disposition: Home, Self Care Discharge Date/Time: 12/06/22 19:26
[2022-12-06] MEDS: Morphine 4 MG/ML Syringe IV (18:44)
== END 2022-12-06 19:26 | disposition home or self-care (01) ==
PROVIDERS: Emergency Provider Emergency Medicine; PCP Nurse Practitioner Primary Care; Visit Provider Emergency Medicine
DX: K50.90 Crohn's disease, unspecified, without complications (principal); I10 Essential (primary) hypertension; R10.30 Lower abdominal pain, unspecified; F12.90 Cannabis use, unspecified, uncomplicated; F17.210 Nicotine dependence, cigarettes, uncomplicated; Z79.899 Other long term (current) drug therapy
CPT/HCPCS: 80053; 81001; 84703; 85025; 96374; 96375; 99282; A4216; J2405

== ENCOUNTER 2023-01-17 12:03 | Emergency (ER) | payer MEDICAID, SELFPAY ==
[2023-01-17 12:04] VITALS: BP 128/92; PULSE 95; RESP 18; TEMP 35.9; O2SAT 100; BMI 34.1
--- NOTE | 2023-01-17 12:37 | ED.VIS.GI ---
HPI HPI - GI History of Present Illness Chief Complaint: Abd Pain Informant: patient Abdominal Pain/Flank Pain Onset: Today and Hours Context: Gradual Onset Timing: Intermittent Quality: Cramping Location: Diffuse Current Severity: Mild Maximum Severity: Mild Worsened by: Nothing Relieved by: Nothing Nausea/Vomiting/Emesis GI Symptom: Positive for Nausea and Vomiting Onset: Today Severity: Mild Diarrhea/Melena/Hematochezia GI Symptom: Positive for Diarrhea Onset: Today Stool Quality: Positive for Loose Severity: Mild Associated Symptoms Associated Symptoms: Negative for Dysuria, Frequency, Hematuria or Urgency Narrative Narrative: 38-year-old female history of Crohn's, anemia, bipolar and marijuana use. Prior cholecystectomy and tubal ligation. States around midnight this morning started having nausea vomiting and diarrhea. Diffuse cramping. No fever. No dysuria. No vaginal bleeding or discharge. Last menstrual period was about 10 days ago. Prior similar symptoms: Yes Recent Illness/Hospitalization: No PFSH PFSH Medical History Anemia Anxiety Asthma Bipolar 1 disorder Depression Heartburn History of blood transfusion History of Crohn's disease Hypertension Low iron Marijuana use Migraine headache Smoker Home Medications escitalopram oxalate 20 mg tablet (Lexapro) 20 mg PO DAILY 08/15/21 [History Last Taken Unknown] hydroxyzine pamoate 25 mg capsule 25 mg PO QHS 08/15/21 [History Last Taken Unknown] lamotrigine 100 mg tablet (Lamictal) 200 mg PO DAILY 08/15/21 [History Last Taken Unknown] promethazine 25 mg tablet 25 mg PO Q6H PRN PRN Nausea #10 TABLETS 05/23/22 [Rx Last Taken Unknown] dicyclomine 20 mg tablet 20 mg PO TID #14 tabs 07/30/22 [Rx Last Taken Unknown] scopolamine base 1 mg over 3 days transdermal patch 1 patch transdermal Q3D #10 ea 09/23/22 [Rx Last Taken Unknown] ustekinumab 90 mg/mL subcutaneous syringe (Stelara) 90 mg subcut Q8W #1 mL 09/30/22 [Rx Last Taken Unknown] albuterol sulfate 90 mcg/actuation aerosol inhaler (Ventolin HFA) 1 inh inhalation Q6H PRN ASTHMA 10/24/22 [History Last Taken Unknown] lisinopril 30 mg tablet 30 mg PO DAILY 10/24/22 [History Last Taken Unknown] hydrocodone-acetaminophen 5-325mg 5mg-325mg 1 - 2 tab PO Q4H PRN pain 5 days #20 tabs 10/25/22 [Rx Last Taken Unknown] ciprofloxacin HCl 500 mg tablet (Cipro) 500 mg PO DAILY 10 days #10 tabs 11/23/22 [Rx Last Taken Unknown] hydrocodone 5 mg-acetaminophen 300 mg tablet 1 tab PO Q6H PRN pain 3 days #14 tabs 11/23/22 [Rx Last Taken Unknown] metronidazole 500 mg tablet 500 mg PO Q8H 10 days #30 tabs 11/23/22 [Rx Last Taken Unknown] prednisone 20 mg tablet 40 mg (2 x 20 mg) PO DAILY 14 days #28 tabs 11/23/22 [Rx Last Taken Unknown] Allergy/AdvReac Type Severity Reaction Status Date / Time amoxicillin Allergy Rash Verified 01/17/23 12:09 tramadol Allergy Rash Verified 01/17/23 12:09 Family History Mother Mental disorder Surgical History History of esophagogastroduodenoscopy (EGD) S/P ERCP S/P laparoscopic cholecystectomy Social History household members: children Smoking Status: Current every day smoker tobacco type: cigarettes substance use type: does not use ROS ROS ED ROS Narrative Nausea, vomiting, diarrhea and abdominal cramping. Review of Systems ROS Unobtainable: Denies due to encephalopathy Constitutional Constitutional ED: Denies chills or fever(s) ENT ENT ED: Denies ear pain Cardiovascular Cardiovascular: Denies chest pain Respiratory/Chest Respiratory/Chest: Denies cough or dyspnea Gastrointestinal Gastrointestinal: Reports abdominal pain, diarrhea, nausea and vomiting; Denies constipation or melena Genitourinary Genitourinary ED: Denies dysuria Musculoskeletal Musculoskeletal: Denies arthralgias or back pain Integumentary Denies abscess or Abrasions Neurologic Neurologic: Denies headache(s) Psychiatric Psychiatric: Denies anxiety or depression Endocrine Endocrinology: Denies polydipsia Hematologic/Lymphatic Hematologic/Lymphatic: Denies easy bleeding Allergic/Immunologic Allergic/Immunologic ED: Denies mouth swelling or tongue swelling EXAM Physical Exam Narrative Exam Narrative: 38-year-old female vital signs stable afebrile. She does not look septic toxic in any distress. H EENT exam unremarkable. Moist mucous membranes. Lungs clear to auscultation. Heart regular rhythm rate about 90 no murmur. Abdomen soft nondistended normal bowel sounds no peritoneal signs. Very minimal periumbilical tenderness. No organomegaly or masses. Right upper and right lower quadrants are unremarkable. No signs of obstruction. Moving all 4 extremities. Nontender no edema. She is awake alert with no focal motor deficits. Back nontender. Very benign exam. Const Vital Signs: 01/17/23 12:04 01/17/23 13:42 Temperature 96.6 F L Temperature Source Temporal Pulse Rate 95 79 Respiratory Rate 18 18 Blood Pressure 128/92 H 158/101 H Blood Pressure Mean 104 120 Pulse Ox 100 99 Oxygen Delivery Method Room Air Room Air Positive well nourished and well developed; Negative for cachectic, contractures or unkempt General Appearance ED: well developed and NAD; Negative for unkempt, cachectic, contractures or pallor Nutritional Appearance: Negative for cachectic HEENT Reports moist mucous membranes; Denies dry mucous membranes normocephalic and atraumatic; Negative for trauma or tenderness Mouth ED: No dry mucous membranes Mouth: No dry mucous membranes Eyes PERRL and EOMs intact bilaterally General Eye ED: Negative for pale conjunctiva or scleral icterus Neck no lymphadenopathy, supple and no JVD General: Negative for tenderness Carotids: Negative for other Lymph Lymphatic: Negative for other Resp normal respiratory effort and clear to auscultation bilaterally Effort and Inspection: Negative for respiratory distress Auscultation: Negative for rales, rhonchi or wheezes Cardio regular rate, regular rhythm, S1 normal heart sound, S2 normal heart sound and no murmurs Rate: Negative for bradycardia or tachycardic Rhythm: Negative for abnormal rhythm GI non-distended and no masses; Negative for non-tender Inspection: Negative for abdominal distention Auscultation: normoactive bowel sounds Palpation: soft and tender; Negative for guarding, rigid, hepatomegaly, splenomegaly, hernia, mass, pulsatile mass or rebound tenderness present Back/Spine no CVA tenderness Extremity full ROM General Extremety ED: Negative for edema or tenderness General Extremity: Negative for edema Neuro CN's II-XII intact bilaterally and moves all extremities Sensorium / Orientation: alert, oriented to person, oriented to place and oriented to time; Negative for orientation impaired, confused, lethargic or stuporous Motor Exam: strength 5/5 throughout Psych mental status grossly normal and thought process normal Appearance: Negative for unkempt Attitude: No agitated Mood & Affect: Negative for depressed, anxious or tearful Skin no wounds General Skin Exam: Negative for jaundice or pallor Lesions: no lesions Rashes: no rashes Trauma: Negative for abrasion Nails: Negative for discolored MDM MDM MDM Narrative Medical decision making narrative: 38-year-old female with nausea, vomiting diarrhea and abdominal pain. May be a Crohn's flare. Could be secondary to marijuana use. Could be secondary to viral syndrome. Clinically she does not have a surgical abdomen. Her gallbladder has been removed. This does not appear to be appendicitis or bowel obstruction. She is having no urinary symptoms. Screening labs to be obtained. She has had recent imaging and recent ER evaluations. She will be treated with IV fluids, Toradol, Zofran. And reevaluated. Patient treated with IV fluids. Zofran IV x2. Toradol for pain. She Requesting additional pain meds I explained I did not think narcotic pain meds would be beneficial for her care. Her repeat abdominal exam at 2:05 PM is benign. She will be discharged home with outpatient follow-up with her GI doctor. She will be written for Zofran for nausea. History & Record Review Discussion w/independent historian: Patient Additional record(s) reviewed:: Prior inpatient record, Prior outpatient record, Prior ED visit and Prior labs Lab Data Attestation: I reviewed the patient's lab results. Lab results narrative: CBC unremarkable. White count of 7. H&H 13 and 40. Platelets 356. Electrolytes show gap of 4. Normal BUN and creatinine 10 and 0.9. Liver enzymes are unremarkable. Lipase is normal at 20. test is negative. Labs: Laboratory Results - last 24 hr 01/17/23 12:45 WBC 7.3 RBC 4.28 Hgb 13.3 Hct 40.7 MCV 95.1 MCH 31.1 MCHC 32.7 RDW Std Deviation 44.2 H RDW Coeff of Kim 12.6 Plt Count 356 MPV 9.1 Immature Gran % (Auto) 0.300 Neut % (Auto) 50.0 Lymph % (Auto) 39.3 Rhea % (Auto) 8.7 Eos % (Auto) 1.1 Baso % (Auto) 0.6 Absolute Neuts (auto) 3.6 Absolute Lymphs (auto) 2.85 Nucleated RBC % 0 Sodium 138 Potassium 3.7 Chloride 108 H Carbon Dioxide 26.0 Anion Gap 4 L BUN 10 Creatinine 0.97 Estim Creat Clear Calc 64.41 Est GFR (MDRD) Af Amer 82 Est GFR (MDRD) Non-Af 68 BUN/Creatinine Ratio 10.3 Glucose 90 Calcium 9.0 Total Bilirubin 0.20 AST 16 ALT 31 Alkaline Phosphatase 85 Total Protein 7.7 Albumin 3.8 Globulin 3.9 Albumin/Globulin Ratio 1.0 Lipase 20 Serum , Qual NEGATIVE Discharge Plan Triage Chief Complaint: Abd Pain ED Provider: Marquise Solares Dx/Rx/DC Orders Prescriptions: No Action hydroxyzine pamoate 25 mg capsule 25 mg PO QHS escitalopram oxalate [Lexapro] 20 mg tablet 20 mg PO DAILY lamotrigine [Lamictal] 100 mg tablet 200 mg PO DAILY promethazine [promethazine] 25 mg tablet 25 mg PO Q6H PRN PRN (Reason: Nausea) Qty: 10 0RF dicyclomine 20 mg tablet 20 mg PO TID Qty: 14 0RF lisinopril 30 mg Tablet 30 mg PO DAILY albuterol sulfate [Ventolin HFA] 90 mcg/actuation Hfa Aerosol Inhaler 1 inh INHALATION Q6H PRN (Reason: ASTHMA) hydrocodone-acetaminophen 5-325 mg tablet 1 - 2 tab PO Q4H PRN (Reason: pain) 5 Days Qty: 20 0RF hydrocodone-acetaminophen 5-300 mg tablet 1 tab PO Q6H PRN (Reason: pain) 3 Days Qty: 14 0RF prednisone 20 mg tablet 40 mg PO DAILY 14 Days Qty: 28 0RF ciprofloxacin HCl [Cipro] 500 mg tablet 500 mg PO DAILY 10 Days Qty: 10 0RF metronidazole 500 mg tablet 500 mg PO Q8H 10 Days Qty: 30 0RF scopolamine base 1 mg over 3 days patch 3 day 1 patch transdermal Q3D Qty: 10 3RF Stelara 90 mg/mL syringe 90 mg subcut Q8W Qty: 1 5RF Rx Instructions: Crohn's Primary Care Provider: Michelle Grimm NP Referrals: Michelle Grimm NP, [facility] [Primary Care Provider] -
[2023-01-17] MEDS: 0.9% Normal Saline (1000mL) 1,000 ML 1000 ML IV (12:44)
[2023-01-17] MEDS: Ondansetron 4 MG/2 ML Vial IV ×2 (12:45→13:36)
[2023-01-17] MEDS: Ketorolac 30 MG/ML Syringe IV (12:45)
[2023-01-17 12:51] LABS: Absolute Lymphocyte Count 2.85 X10^3/uL (0.83-4.51); Absolute Neutrophil Count 3.6 X10^3/uL (2.0-7.7); Basophil# 0.04 X10^3/uL; Basophil% 0.6 % (0-1); Eosinophil# 0.08 X10^3/uL; Eosinophils% 1.1 % (0-5); Hematocrit 40.7 % (37-47); Hemoglobin 13.3 g/dL (12.0-15.0); Lymphocyte # 2.85 X10^3/ul (0.83-4.51); Lymphocyte % 39.3 % (19-41); Mean Corp Hgb Conc 32.7 g/dL (32-36); Mean Corpuscular Hgb 31.1 pg (27.0-32.0); Mean Corpuscular Volume 95.1 fL (81-99); Mean Platelet Vol. 9.1 fl (6.2-12.0); Monocyte# 0.63 X10^3/uL; Monocyte% 8.7 % (0-10); NRBC Flagged by Analyzer 0 % (0-5); Neutrophil # 3.64 X10^3/uL (2.7-7.7); Platelet Count 356 K/mm3 (150-450); RBC Distribution Width CV 12.6 % (11.6-14.6); RBC Distribution Width SD 44.2 fl (35.1-43.9); Red Blood Count 4.28 M/mm3 (4.2-5.4); White Blood Count 7.3 K/mm3 (4.4-11.0)
[2023-01-17 13:09] LABS: Internal QC Validated? YES +Cl - CLEAR BKGD; Pregnancy, Serum, hCG Quali. NEGATIVE Negative; Record Kit Lot#, Serum Preg. HCG0000667200
[2023-01-17 13:15] LABS: AST(SGOT) 16 U/L (15-37); Alanine Aminotransfer ALT/SGPT 31 U/L (13-56); Albumin, Serum 3.8 g/dL (3.2-5.0); Alkaline Phosphatase 85 U/L (45-117); Anion Gap 4 (5-15); BUN 10 mg/dL (7-18); BUN/Creat Ratio 10.3 RATIO (10-20); Chloride 108 mmol/L (98-107); Creatinine, Serum 0.97 mg/dL (0.55-1.02); EST Glomerular Filtration Rate 68 mL/min (>60); Est Glom Filt Rate - Afr Amer 82 mL/min (>60); Estimated Creatinine Clearance 64.41 ml/min; Globulin 3.9 g/dL (2.2-4.2); Glucose 90 mg/dL (74-106); Lipase 20 U/L (13-75); Potassium 3.7 mmol/L (3.5-5.1); Protein, Total 7.7 g/dL (6.4-8.2); Sodium Level 138 mmol/L (136-145)
[2023-01-17 13:42] VITALS: BP 158/101; PULSE 79; RESP 18; O2SAT 99
== END 2023-01-17 14:17 | disposition home or self-care (01) ==
PROVIDERS: Emergency Provider Emergency Medicine; PCP Nurse Practitioner Primary Care; Visit Provider Emergency Medicine
DX: R10.9 Unspecified abdominal pain (principal); F31.9 Bipolar disorder, unspecified; R11.2 Nausea with vomiting, unspecified; R19.7 Diarrhea, unspecified; I10 Essential (primary) hypertension; F17.210 Nicotine dependence, cigarettes, uncomplicated; Z98.51 Tubal ligation status; J45.909 Unspecified asthma, uncomplicated; F12.90 Cannabis use, unspecified, uncomplicated
CPT/HCPCS: 80053; 83690; 84703; 85025; 96361; 96374; 96375; 96376; 99283; J7030; A4216; J2405

== ENCOUNTER 2023-02-12 10:19 | Day surgery (SDC) | payer MEDICAID, SELFPAY ==
[2023-02-12] VITALS (8 sets, daily range): BP systolic 118–135; BP diastolic 81–96; PULSE 75–87; RESP 16–18; TEMP 35.8–36.7; O2SAT 75–100; BMI 34.3
--- NOTE | 2023-02-12 10:51 | PCM.HP.BLA ---
History and Physical Date of Admission: 02/12/23 DIANE WELLER, is a 37 F who presents from an outside hospital with abdominal pain. She has past medical history of marijuana hyperemesis and Crohn's these on Stelara therapy. She did undergo an ultrasound at outside hospital so multiple stones in her gallbladder. She was transferred here for cholecystitis under the care of Dr. Zeke Rascon. She underwent an elective cholecystectomy today. During her Intra-Op cholangiogram she was discovered to have multiple stones in her distal common bile duct. I was consulted for ERCP with stone removal. She underwent ERCP with successful stone removal and stent placement. She comes in today for stent removal. [facility] Medical History Anemia Anxiety Asthma Bipolar 1 disorder Depression Heartburn History of blood transfusion History of Crohn's disease Hypertension Low iron Marijuana use Migraine headache Smoker Home Medications escitalopram oxalate 20 mg tablet (Lexapro) 20 mg PO DAILY 08/15/21 [History Last Taken Unknown] hydroxyzine pamoate 25 mg capsule 25 mg PO QHS 08/15/21 [History Last Taken Unknown] lamotrigine 100 mg tablet (Lamictal) 200 mg PO DAILY 08/15/21 [History Last Taken Unknown] promethazine 25 mg tablet 25 mg PO Q6H PRN PRN Nausea #10 TABLETS 05/23/22 [Rx Last Taken Unknown] dicyclomine 20 mg tablet 20 mg PO TID #14 tabs 07/30/22 [Rx Last Taken Unknown] scopolamine base 1 mg over 3 days transdermal patch 1 patch transdermal Q3D #10 ea 09/23/22 [Rx Last Taken Unknown] ustekinumab 90 mg/mL subcutaneous syringe (Stelara) 90 mg subcut Q8W #1 mL 09/30/22 [Rx Last Taken Unknown] albuterol sulfate 90 mcg/actuation aerosol inhaler (Ventolin HFA) 1 inh inhalation Q6H PRN ASTHMA 10/24/22 [History Last Taken Unknown] lisinopril 30 mg tablet 30 mg PO DAILY 10/24/22 [History Last Taken Unknown] hydrocodone-acetaminophen 5-325mg 5mg-325mg 1 - 2 tab PO Q4H PRN pain 5 days #20 tabs 10/25/22 [Rx Last Taken Unknown] Allergy/AdvReac Type Severity Reaction Status Date / Time amoxicillin Allergy Rash Verified 10/25/22 10:56 tramadol Allergy Rash Verified 10/25/22 10:56 Family History Mother Mental disorder Surgical History (Updated 10/24/22 @ 09:24 by Rosa Chowdhury) History of esophagogastroduodenoscopy (EGD) Social History household members: children Smoking Status: Current every day smoker tobacco type: cigarettes substance use type: does not use ROS Review of Systems ROS Unobtainable: other Constitutional Constitutional: Denies fatigue, fever(s), poor appetite, weight gain or weight loss ENT HEENT: Denies mouth lesions Cardiovascular Cardiovascular: Denies abdominal bloating, abdominal edema or abdominal pain Respiratory/Chest Respiratory/Chest: Denies change in mental status, change in phlegm color, chest congestion or chest tightness Gastrointestinal Gastrointestinal: Denies belching, bloating, change in bowel habits, change in stool character, chewing difficulty, coffee ground emesis, constipation, cramping, diarrhea, dyspepsia, dysphagia, early satiety, excessive flatus, fecal incontinence, heartburn, hematemesis, hematochezia, hemorrhoids, loose stools, melena, nausea, odynophagia, rectal bleeding, tenesmus, vomiting or weight changes Genitourinary Genitourinary: Denies abdominal discomfort, burning urination or itching Musculoskeletal Musculoskeletal: Reports as per HPI; Denies muscle weakness or myalgias Integumentary Integumentary: Denies jaundice Neurologic Neurologic: Denies lack of coordination or weakness Psychiatric Psychiatric: Denies confusion, depression, memory loss, mood swings, paranoia or suicidal ideation Endocrine Endocrinology: Denies systems reviewed and no addt'l complaints, except as documented Hematologic/Lymphatic Hematologic/Lymphatic: Denies anemia, easy bleeding, easy bruising or lymphadenopathy Allergic/Immunologic Allergic/Immunologic: Denies systems reviewed and no addt'l complaints, except as documented Physical Exam Const alert General Appearance: cooperative Orientation / Consciousness: oriented to person HEENT hearing grossly normal bilaterally Head and Scalp: normal to inspection Face and Sinus: face symmetric Nose: external nose normal Mouth: oral and palatal mucosa normal Eyes conjunctivae normal General Eye: normal appearance of both eyes Neck full ROM General: normal visual inspection Lymph Lymphatic: no lymphadenopathy noted Chest inspection of chest normal and palpation of chest normal Chest: symmetrical chest wall rise Resp normal respiratory effort Effort and Inspection: able to speak in complete sentences Cardio regular rate GI non-distended Percussion: normal to percussion Rectal Exam: deferred Neuro Speech: speech normal Gait (Neuro): normal gait Lab / Micro Data Labs: Laboratory Results - last 24 hr 10/25/22 10:50: Urine Test Negative Radiology Impression Cholangiogram 10/25/22 11:45 IMPRESSION: Dilated common bile duct with retained calculus in its distal portion. Reflux contrast into the duodenum. Electronically Signed: Joshua Houston MD at 14:39 EDT , Assessment & Plan Assessment/Plan (1) Hx of Crohn's disease: (2) Cholecystitis: (3) Choledocholithiasis: PLAN: Plan 37-year-old comes in with acute abdominal pain from outside hospital for continued evaluation and treatment of cholecystitis. She underwent elective laparoscopic cholecystectomy without any problems. She underwent intraoperative cholangiogram was discovered to have multiple stones in her common bile duct. I was consulted for an ERCP. she underwent ERCP with stone removal and stent placement. She will undergo ERCP with stent removal was explained alternatives, risk, benefits include not withstanding bleeding, infection, sepsis, perforation, need for emergent surgery . She will have an ASA of 2.
[2023-02-12] MEDS: Lactated Ringers 1,000 ML 15 ML IV ×2 (11:01→13:08)
[2023-02-12 11:08] LABS: Internal QC Validated? YES +Cl - CLEAR BKGD; Pregnancy, Urine Negative Negative; Record Kit Lot#,Urine Preg HCG0000667200
--- NOTE | 2023-02-12 11:52 | RAD_ITS ---
STUDY: ERCP. REASON FOR EXAM: Female, 38 years old. ERCP STENT PULL FLUOROSCOPY TIME (if supplied): ( 1 minute and 3 seconds ) minutes/seconds. 15.78 mGy TECHNIQUE: An ERCP was performed by the director of conservation. Fluoroscopic imaging was provided. COMPARISON: None. FINDINGS: Removal of the common bile duct stent. RAD/ERCP Biliary/Pancreas IMPRESSION: Imaging provided for removal of the common bile duct stent. Electronically Signed: Joshua Houston MD at 10:44 EDT ,
--- NOTE | 2023-02-12 12:13 | OP.ERCP_ITS ---
Patient Name: Irvin Tan Procedure Date: 02/12/2023 11:19 AM Date of : 1985 Age: 38 Procedure: ERCP Indications: Bile duct stone(s), Stent removal Providers: Kenn Ojeda DO Referring MD: Michelle rGimm Medicines: Monitored Anesthesia Care Patient Profile: This is a 38 year old female. Refer to note in patient chart for documentation of history and physical. Patient has symptoms of chronic right upper quadrant abdominal pain and chronic jaundice. Her most recent ERCP for stent and ERCP for stone removal. Complications: No immediate complications. Procedure: Pre-Anesthesia Assessment: - Prior to the procedure, a History and Physical was performed, and patient medications and allergies were reviewed. The patient is competent. The risks and benefits of the procedure and the sedation options and risks were discussed with the patient. All questions were answered and informed consent was obtained. Patient identification and proposed procedure were verified by the physician. Mental Status Examination: normal. Prophylactic Antibiotics: The patient does not require prophylactic antibiotics. Prior Anticoagulants: The patient has taken no anticoagulant or antiplatelet agents. ASA Grade Assessment: II - A patient with mild systemic disease. After reviewing the risks and benefits, the patient was deemed in satisfactory condition to undergo the procedure. The anesthesia plan was to use monitored anesthesia care (MAC). Immediately prior to administration of medications, the patient was re-assessed for adequacy to receive sedatives. The heart rate, respiratory rate, oxygen saturations, blood pressure, adequacy of pulmonary ventilation, and response to care were monitored throughout the procedure. The physical status of the patient was re-assessed after the procedure. After obtaining informed consent, the scope was passed under direct vision. Throughout the procedure, the patient's blood pressure, pulse, and oxygen saturations were monitored continuously. The Duodenoscope was introduced through the mouth, and advanced to the duodenum and used to inject contrast into the bile duct. The ERCP was accomplished without difficulty. The patient tolerated the procedure well. Scope In: 11:55:08 AM Scope Out: 12:06:43 PM Total Procedure Duration Time 0 hours 11 minutes 35 seconds Findings: The academic advisement director film was normal. The esophagus was successfully intubated under direct vision. The scope was advanced to a normal major papilla in the descending duodenum without detailed examination of the pharynx, larynx and associated structures, and upper GI tract. The upper GI tract was grossly normal. A straight Roadrunner wire was passed into the biliary tree. The bile duct was then deeply cannulated over the guidewire. Contrast was injected. I personally interpreted the bile duct images. There was brisk flow of contrast through the ducts. Image quality was excellent. Contrast extended to the entire biliary tree. Opacification of the entire biliary tree except for the gallbladder and main bile duct was successful. The maximum diameter of the ducts was 7 mm. The lower third of the main bile duct contained a single localized stenosis 6 mm in length. The main bile duct was diffusely dilated, with a stone causing an obstruction. The largest diameter was 8 mm. A 5 mm biliary sphincterotomy was made with a braided traction (standard) sphincterotome using ERBE electrocautery. The sphincterotomy oozed blood. To discover objects, the biliary tree was swept with a 15 mm balloon starting at the bifurcation. Sludge was swept from the duct. All stones were removed. One stent was removed from the biliary tree using a snare and sent for cultures. The stent was found to be partially occluded via the water column test. Impression: - A single localized biliary stricture was found in the lower third of the main bile duct. The stricture was secondary to previous stone(s). - The entire main bile duct was dilated, with a stone causing an obstruction. - Choledocholithiasis was found. Complete removal was accomplished by biliary sphincterotomy and balloon extraction. - A biliary sphincterotomy was performed. - The biliary tree was swept. - One stent was removed from the biliary tree. Procedure Code(s): --- Professional --- 51966, Endoscopic retrograde cholangiopancreatography (ERCP); with removal of foreign body(s) or stent(s) from biliary/pancreatic duct(s) 41747, Endoscopic retrograde cholangiopancreatography (ERCP); with removal of calculi/debris from biliary/pancreatic duct(s) 14461, Endoscopic retrograde cholangiopancreatography (ERCP); with sphincterotomy/papillotomy 72073, 26, Endoscopic catheterization of the biliary ductal system, radiological supervision and interpretation CPT copyright 2021 [employer]. All rights reserved. The codes documented in this report are preliminary and upon medical coder review may be revised to meet current compliance requirements. Kenn Ojeda DO 02/12/2023 12:12:32 PM This report has been signed electronically. Number of Addenda: 0 Note Initiated On: 02/12/2023 11:19 AM
--- NOTE | 2023-02-12 12:13 | OP.CCLET_ITS ---
02/12/2023 Michelle Podlogar Re : ERCP procedure for Irvin Tan Dear Podlogar This procedure was performed on Sunday, February 12, 2023. My impressions and recommendations are as follows: Impressions : - A single localized biliary stricture was found in the lower third of the main bile duct. The stricture was secondary to previous stone(s). - The entire main bile duct was dilated, with a stone causing an obstruction. - Choledocholithiasis was found. Complete removal was accomplished by biliary sphincterotomy and balloon extraction. - A biliary sphincterotomy was performed. - The biliary tree was swept. - One stent was removed from the biliary tree. Recommendations : My findings are described in the full procedure note, which is enclosed. If I can be of further assistance, please feel free to contact me at . Sincerely, Kenn Ojeda, 02/12/2023 12:12:32 PM This report has been signed electronically.
== END 2023-02-12 14:59 | disposition home or self-care (01) ==
LOC: EN 10:21 → AC 10:23
PROVIDERS: Anesthesiology; PCP Nurse Practitioner Primary Care; Referring Provider Nurse Practitioner Primary Care; Visit Provider Internal Medicine Gastroenterology
PROC: (CPT 43260; principal; 2023-02-12 11:25)
DX: Z46.59 Encounter for fitting and adjustment of other gastrointestinal appliance and device (principal); F17.210 Nicotine dependence, cigarettes, uncomplicated; I10 Essential (primary) hypertension; Z90.49 Acquired absence of other specified parts of digestive tract; J45.909 Unspecified asthma, uncomplicated; K80.41 Calculus of bile duct with cholecystitis, unspecified, with obstruction; Z79.899 Other long term (current) drug therapy
CPT/HCPCS: 43264; 43262; 43275; 74330; 76000; 81025; J7120

== ENCOUNTER 2023-02-13 17:37 | Emergency (ER) | payer MEDICAID, SELFPAY ==
[2023-02-13 17:39] VITALS: BP 133/96; PULSE 106; RESP 18; TEMP 36.6; O2SAT 99; BMI 34.6
--- NOTE | 2023-02-13 18:35 | CT_ITS ---
STUDY: CT ABDOMEN AND PELVIS WITH CONTRAST REASON FOR EXAM: Female, 38 years old. Pain RADIATION DOSAGE (If Supplied By Facility): CTDIvol = ( 13.73 ) mGy, DLP = ( 854.39 ) mGycm TECHNIQUE: Transaxial images were obtained from the dome of the diaphragm to the symphysis pubis without oral contrast. Oral and amp; IV Gastrografin and amp; 100mL Isovue-370 was administered. Sagittal and coronal images were reconstructed. Individualized dose optimization techniques were used for this CT. COMPARISON: November 23, 2022 FINDINGS: The visualized lung bases are unremarkable. The visualized portions of the heart are within normal limits. Normal liver. Gallbladder not visualized status post cholecystectomy. Normal spleen. Pancreas is normal in size and homogeneous attenuation however there is effacement of the pancreaticoduodenal fat plane and mild focal pancreatitis cannot be excluded. Right adrenal is normal. There is a small left adrenal nodule measuring approximately 1.5 x 1.43 cm of indeterminate etiology but may be further assessed with MRI if clinically indicated. Normal right kidney. Normal left kidney. Normal visualized stomach. Normal small intestine. Diverticular changes of the colon without evidence for acute diverticulitis. The appendix is visualized and appears normal. Normal abdominal aorta. Normal inferior vena cava. Normal retroperitoneum. Normal urinary bladder. Postop change status post bilateral tubal ligation Small amount of fluid noted within the cul-de-sac. A small right ovarian cyst Normal abdominal wall. Normal osseous structures. Previously noted biliary stent has been removed. Right ovarian cyst has decreased in size since prior study CT/Abdomen/Pelvis WITH Contrast IMPRESSION: Post op change status post cholecystectomy. No evidence for bile duct dilatation status post removal of biliary stent.. Possibility of mild focal pancreatitis is not excluded Small amount of fluid in the cul-de-sac possibly due to recent ovulation. Left adrenal nodule of uncertain etiology stable since previous study which may be better assessed with MRI if clinically warranted Electronically Signed: Carrillo Dietz MD at 20:29 EDT ,
[2023-02-13] MEDS: 0.9% Normal Saline (1000mL) 1,000 ML 1000 ML IV (18:44)
[2023-02-13] MEDS: Ondansetron 4 MG/2 ML Vial IV (18:44)
[2023-02-13] MEDS: Morphine 4 MG/ML Syringe IV ×2 (18:44→21:13)
[2023-02-13 18:46] LABS: Absolute Lymphocyte Count 1.14 X10^3/uL (0.83-4.51); Absolute Neutrophil Count 8.8 X10^3/uL (2.0-7.7); Basophil# 0.02 X10^3/uL; Basophil% 0.2 % (0-1); Eosinophil# 0.01 X10^3/uL; Eosinophils% 0.1 % (0-5); Hematocrit 36.7 % (37-47); Hemoglobin 12.1 g/dL (12.0-15.0); Lymphocyte # 1.14 X10^3/ul (0.83-4.51); Lymphocyte % 10.7 % (19-41); Mean Corpuscular Hgb 30.8 pg (27.0-32.0); Mean Corpuscular Volume 93.4 fL (81-99); Mean Platelet Vol. 9.6 fl (6.2-12.0); Monocyte# 0.72 X10^3/uL; Monocyte% 6.7 % (0-10); NRBC Flagged by Analyzer 0 % (0-5); Neutrophil # 8.76 X10^3/uL (2.7-7.7); Neutrophil % 81.8 % (47-70); Platelet Count 338 K/mm3 (150-450); RBC Distribution Width CV 12.6 % (11.6-14.6); RBC Distribution Width SD 43.5 fl (35.1-43.9); Red Blood Count 3.93 M/mm3 (4.2-5.4); White Blood Count 10.7 K/mm3 (4.4-11.0)
[2023-02-13 19:13] LABS: AST(SGOT) 8 U/L (15-37); Alanine Aminotransfer ALT/SGPT 19 U/L (13-56); Albumin, Serum 3.5 g/dL (3.2-5.0); Alkaline Phosphatase 75 U/L (45-117); Anion Gap 6 (5-15); BUN 9 mg/dL (7-18); BUN/Creat Ratio 10.3 RATIO (10-20); Calcium,Total 8.8 mg/dL (8.5-10.1); Chloride 110 mmol/L (98-107); Creatinine, Serum 0.88 mg/dL (0.55-1.02); EST Glomerular Filtration Rate 76 mL/min (>60); Est Glom Filt Rate - Afr Amer 92 mL/min (>60); Globulin 3.5 g/dL (2.2-4.2); Glucose 103 mg/dL (74-106); Lipase 78 U/L (13-75); Potassium 3.1 mmol/L (3.5-5.1); Sodium Level 139 mmol/L (136-145)
[2023-02-13 19:58] LABS: Bacteria 0 SEEN /hpf (None Seen); Mucous, Urine 0 SEEN /hpf (<or=2+); Red Blood Cells-Urine 0 SEEN /hpf (0-5); Squamous Epithelial Cells - UA 0 SEEN /hpf (5-10); White Blood Cells 0 SEEN /hpf (0-5)
[2023-02-13 20:10] LABS: Color, Urine Yellow (Yellow); Glucose, Dipstick Normal (Normal); Ketone-Dipstick Negative (Negative); Leukocyte Esterase-Dipstick Negative /ul (Negative); Nitrite-Dipstick Negative (Negative); Occult Blood-Urine Negative /ul (Negative); Protein-Dipstick Negative (Negative); Specific Gravity, Urine 1.005 (1.002-1.030); Urine Bilirubin Dipstick Negative (Negative); Urine Clarity Clear (Clear); Urine Urobilinogen Normal (Normal); Urine pH 6.5 (5.0 - 8.0)
--- NOTE | 2023-02-13 20:14 | ED.VIS.GI ---
HPI HPI - GI History of Present Illness Chief Complaint: Nausea/Vomiting Informant: patient Abdominal Pain/Flank Pain Onset: Today Context: Gradual Onset Timing: Continuous Quality: Sharp Location: RUQ Worsened by: - (Breathing) Relieved by: Nothing Nausea/Vomiting/Emesis GI Symptom: Positive for Nausea and Vomiting Onset: Today Quality: Positive for Nonbilious; Negative for Blood streaks, Coffee ground or Hematemesis Diarrhea/Melena/Hematochezia GI Symptom: Negative for Diarrhea, Melena or Hematochezia Associated Symptoms Associated Symptoms: Negative for Dysuria, Frequency, Hematuria or Urgency LMP: 01/10/2023 Narrative Narrative: Patient presents with abdominal pain, nausea, and vomiting that began today. Patient states she had an ERCP stent removed yesterday by Dr. Ojeda. Patient states the pain is worse today. Patient describes the pain as sharp. Patient states pain is mainly over the right upper quadrant. Patient denies any radiation of the pain. Patient denies any hematemesis or coffee-ground emesis. Patient denies any diarrhea, melena, or hematochezia. Patient denies any dysuria, frequency, or urgency. Patient denies any abnormal vaginal bleeding or discharge. PFSH PFSH Medical History Anemia Anxiety Asthma Bipolar 1 disorder Depression Heartburn History of blood transfusion Hypertension Low iron Marijuana use Migraine headache Smoker Home Medications escitalopram oxalate 20 mg tablet (Lexapro) 20 mg PO DAILY 08/15/21 [History Last Taken Unknown] hydroxyzine pamoate 25 mg capsule 25 mg PO QHS 08/15/21 [History Last Taken Unknown] lamotrigine 100 mg tablet (Lamictal) 200 mg PO DAILY 08/15/21 [History Last Taken Unknown] dicyclomine 20 mg tablet 20 mg PO TID #14 tabs 07/30/22 [Rx Last Taken Unknown] albuterol sulfate 90 mcg/actuation aerosol inhaler (Ventolin HFA) 1 inh inhalation Q6H PRN ASTHMA 10/24/22 [History Last Taken Unknown] lisinopril 30 mg tablet 30 mg PO DAILY 10/24/22 [History Last Taken Unknown] ciprofloxacin HCl 500 mg tablet (Cipro) 500 mg PO DAILY 10 days #10 tabs 11/23/22 [Rx Last Taken Unknown] ondansetron 4 mg disintegrating tablet 4 mg PO Q6H PRN nausea and vomiting #10 tabs 01/17/23 [Rx Last Taken Unknown] ustekinumab 90 mg/mL subcutaneous syringe (Stelara) 90 mg subcut Q8W #1 mL 01/29/23 [Rx Last Taken Unknown] Allergy/AdvReac Type Severity Reaction Status Date / Time amoxicillin Allergy Rash Verified 02/13/23 17:39 tramadol Allergy Rash Verified 02/13/23 17:39 Family History Mother Mental disorder Surgical History History of esophagogastroduodenoscopy (EGD) S/P ERCP S/P laparoscopic cholecystectomy Social History household members: children Smoking Status: Current every day smoker tobacco type: cigarettes substance use type: does not use ROS ROS ED Constitutional Constitutional ED: Reports chills; Denies fever(s) Eyes Eyes: Denies blurry vision or change in vision ENT ENT ED: Denies rhinorrhea or sore throat Cardiovascular Cardiovascular: Denies chest pain or palpitations Respiratory/Chest Respiratory/Chest: Denies cough or dyspnea Gastrointestinal Gastrointestinal: Reports abdominal pain, nausea and vomiting Genitourinary Genitourinary ED: Denies dysuria or hematuria Musculoskeletal Musculoskeletal: Denies back pain or neck pain Integumentary Denies abscess or rash Neurologic Neurologic: Reports headache(s); Denies weakness Allergic/Immunologic Allergic/Immunologic ED: Denies mouth swelling or urticaria EXAM Physical Exam Const Vital Signs: 02/13/23 17:39 02/13/23 21:13 Temperature 97.8 F Temperature Source Temporal Pulse Rate 106 H Respiratory Rate 18 18 Blood Pressure 133/96 H Blood Pressure Mean 108 Pulse Ox 99 Oxygen Delivery Method Room Air Room Air Positive well nourished and well developed General Appearance ED: well developed HEENT Reports moist mucous membranes Neck supple and no JVD Resp normal respiratory effort and clear to auscultation bilaterally Cardio regular rate, regular rhythm and no murmurs GI normal to inspection, nondistended, normoactive bowel sounds Palpation: soft and tender epigastric and RUQ; Negative for guarding or rebound tenderness present Extremity normal to inspection General Extremety ED: Negative for edema or tenderness General Extremity: Negative for edema Neuro oriented x3, CN's II-XII intact bilaterally and no sensory deficits noted Sensorium / Orientation: alert Motor Exam: strength 5/5 throughout Psych mental status grossly normal Skin no rashes or lesions noted MDM MDM MDM Narrative Medical decision making narrative: Differential diagnosis includes gastritis, pancreatitis, bowel obstruction, perforation, cannabis hyperemesis syndrome, gastroparesis, dehydration, and electrolyte abnormality. CBC will be obtained to assess for leukocytosis and anemia. Comprehensive metabolic profile will be obtained to assess for hepatic function, renal function, and electrolyte abnormality. Lipase will be obtained to assess for pancreatitis. CT scan of the abdomen pelvis will be obtained to assess for bowel obstruction and perforation. Lab Data Attestation: I reviewed the patient's lab results. Lab results narrative: CBC was reviewed and was within normal limits. Comprehensive metabolic profile was reviewed and was within normal limits. Lipase was reviewed and was slightly elevated at 78. Urinalysis was reviewed. There is no evidence of urinary tract infection or hematuria. Labs: Laboratory Results - last 24 hr 02/13/23 02/13/23 18:05 19:45 WBC 10.7 RBC 3.93 L Hgb 12.1 Hct 36.7 L MCV 93.4 MCH 30.8 MCHC 33.0 RDW Std Deviation 43.5 RDW Coeff of Kim 12.6 Plt Count 338 MPV 9.6 Immature Gran % (Auto) 0.500 Neut % (Auto) 81.8 H Lymph % (Auto) 10.7 L [place] % (Auto) 6.7 Eos % (Auto) 0.1 Baso % (Auto) 0.2 Absolute Neuts (auto) 8.8 H Absolute Lymphs (auto) 1.14 Nucleated RBC % 0 Sodium 139 Potassium 3.1 L Chloride 110 H Carbon Dioxide 23.0 Anion Gap 6 BUN 9 Creatinine 0.88 Estim Creat Clear Calc 71.00 Est GFR (MDRD) Af Amer 92 Est GFR (MDRD) Non-Af 76 BUN/Creatinine Ratio 10.3 Glucose 103 Calcium 8.8 Total Bilirubin 0.40 AST 8 L ALT 19 Alkaline Phosphatase 75 Total Protein 7.0 Albumin 3.5 Globulin 3.5 Albumin/Globulin Ratio 1.0 Lipase 78 H Urine Color Yellow Urine Clarity Clear Urine pH 6.5 Ur Specific [place] 1.005 Urine Protein Negative Urine Glucose (UA) Normal Urine Ketones Negative Urine Occult Blood Negative Urine Nitrite Negative Urine Bilirubin Negative Urine Urobilinogen Normal Ur Leukocyte Esterase Negative Urine RBC 0 SEEN Urine WBC 0 SEEN Ur Squamous Epith Cells 0 SEEN Urine Bacteria 0 SEEN Urine Mucus 0 SEEN Radiography Diagnostic Testing: Clinical Impression(s) from Imaging Studies Abdomen/Pelvis CT 02/13/23 18:35 IMPRESSION: Post op change status post cholecystectomy. No evidence for bile duct dilatation status post removal of biliary stent.. Possibility of mild focal pancreatitis is not excluded Small amount of fluid in the cul-de-sac possibly due to recent ovulation. Left adrenal nodule of uncertain etiology stable since previous study which may be better assessed with MRI if clinically warranted Electronically Signed: Carrillo Dietz MD at 20:29 EDT , CT scan of the abdomen and pelvis was obtained. There is no evidence of perforation or obstruction. There is no free air or free fluid. There are postoperative changes noted. This was interpreted by the radiologist and was also independently reviewed by myself. Treatment and Re-Evaluation :: Patient was given IV fluids, morphine, and Zofran. Patient states the morphine did help with her pain. Patient states it is starting to come back. Patient was given a repeat dose of morphine. Patient was instructed to start with a liquid diet and advance as tolerated. Patient was instructed to follow-up with her primary care physician and tourist camp attendant. Patient understood and was agreeable with the plan. All questions were answered. Discharge Plan Triage Chief Complaint: Nausea/Vomiting Other Complaint: Abd Pain ED Provider: Fernando Huerta Dx/Rx/DC Orders Clinical Impression: S/P ERCP, Abdominal pain Instructions: ED Abdominal Pain Unkn Cause Fem Prescriptions: No Action hydroxyzine pamoate 25 mg capsule 25 mg PO QHS escitalopram oxalate [Lexapro] 20 mg tablet 20 mg PO DAILY lamotrigine [Lamictal] 100 mg tablet 200 mg PO DAILY dicyclomine 20 mg tablet 20 mg PO TID Qty: 14 0RF lisinopril 30 mg Tablet 30 mg PO DAILY albuterol sulfate [Ventolin HFA] 90 mcg/actuation Hfa Aerosol Inhaler 1 inh INHALATION Q6H PRN (Reason: ASTHMA) ciprofloxacin HCl [Cipro] 500 mg tablet 500 mg PO DAILY 10 Days Qty: 10 0RF ondansetron 4 mg tablet,disintegrating 4 mg PO Q6H PRN (Reason: nausea and vomiting) Qty: 10 0RF Stelara 90 mg/mL syringe 90 mg subcut Q8W Qty: 1 5RF Rx Instructions: Crohn's Primary Care Provider: Michelle Grimm NP Referrals: Michelle Grimm NP, SPOOLER OPERATOR-C [Primary Care Provider] - 3-5 Days Disposition Disposition: Home, Self Care
[2023-02-13 21:13] VITALS: RESP 18
== END 2023-02-13 21:39 | disposition home or self-care (01) ==
PROVIDERS: Emergency Provider Emergency Medicine; PCP Nurse Practitioner Primary Care; Visit Provider Emergency Medicine
DX: R10.9 Unspecified abdominal pain (principal); R11.2 Nausea with vomiting, unspecified; I10 Essential (primary) hypertension; F17.210 Nicotine dependence, cigarettes, uncomplicated; Z79.899 Other long term (current) drug therapy; Z98.890 Other specified postprocedural states
CPT/HCPCS: 74177; 80053; 81001; 83690; 85025; 96361; 96374; 96375; 96376; 99282; J7030; Q9967; A4216; J2405

== ENCOUNTER 2023-04-27 10:24 | Emergency (ER) | payer MEDICAID, SELFPAY ==
[2023-04-27 10:26] VITALS: BP 150/104; PULSE 90; RESP 18; TEMP 36.4; O2SAT 100; BMI 34.7
--- NOTE | 2023-04-27 10:36 | ED.VIS.GI ---
HPI HPI - GI History of Present Illness Chief Complaint: Abd Pain Informant: patient Abdominal Pain/Flank Pain Onset: Yesterday Context: Sudden Onset Timing: Continuous Quality: Dull Location: - (Periumbilical) Worsened by: Nothing Relieved by: Nothing Nausea/Vomiting/Emesis GI Symptom: Positive for Nausea; Negative for Vomiting Diarrhea/Melena/Hematochezia GI Symptom: Positive for Diarrhea; Negative for Melena or Hematochezia Associated Symptoms Associated Symptoms: Negative for Dysuria, Frequency or Hematuria LMP: Approximately 2 weeks ago Narrative Narrative: Patient presents with abdominal pain that began last night. Patient states it began rather suddenly. Patient states her pain is over the periumbilical area. Patient states she took Bentyl and Zofran with no improvement. Patient states she also took some ibuprofen with no improvement. Patient describes her pain as dull. Patient states nothing makes it better and nothing makes it worse. Patient admits to some nausea but denies any vomiting. Patient admits to some diarrhea but denies any melena or hematochezia. Patient denies any urinary complaints. Patient states her last menstrual period was approximately 2 weeks ago. PFSH PFSH Medical History Anemia Anxiety Asthma Bipolar 1 disorder Cannabis hyperemesis syndrome concurrent with and due to cannabis abuse Crohn's disease Depression Heartburn History of blood transfusion Hypertension Low iron Marijuana use Migraine headache Smoker Home Medications escitalopram oxalate 20 mg tablet (Lexapro) 20 mg PO DAILY 08/15/21 [History Last Taken Unknown] hydroxyzine pamoate 25 mg capsule 25 mg PO QHS 08/15/21 [History Last Taken Unknown] lamotrigine 100 mg tablet (Lamictal) 200 mg PO DAILY 08/15/21 [History Last Taken Unknown] dicyclomine 20 mg tablet 20 mg PO TID #14 tabs 07/30/22 [Rx Last Taken Unknown] albuterol sulfate 90 mcg/actuation aerosol inhaler (Ventolin HFA) 1 inh inhalation Q6H PRN ASTHMA 10/24/22 [History Last Taken Unknown] lisinopril 30 mg tablet 30 mg PO DAILY 10/24/22 [History Last Taken Unknown] ciprofloxacin HCl 500 mg tablet (Cipro) 500 mg PO DAILY 10 days #10 tabs 11/23/22 [Rx Last Taken Unknown] ondansetron 4 mg disintegrating tablet 4 mg PO Q6H PRN nausea and vomiting #10 tabs 01/17/23 [Rx Last Taken Unknown] ustekinumab 90 mg/mL subcutaneous syringe (Stelara) 90 mg subcut Q8W #1 mL 01/29/23 [Rx Last Taken Unknown] prochlorperazine maleate 10 mg tablet (Compazine) 10 mg PO TID PRN nausea and vomiting #90 tabs 03/31/23 [Rx Last Taken Unknown] prednisone 20 mg tablet 60 mg (3 x 20 mg) PO DAILY #15 TABLETS 04/27/23 [Rx Last Taken Unknown] Allergy/AdvReac Type Severity Reaction Status Date / Time amoxicillin Allergy Rash Verified 04/27/23 10:28 tramadol Allergy Rash Verified 04/27/23 10:28 Family History Mother Mental disorder Surgical History History of esophagogastroduodenoscopy (EGD) S/P ERCP S/P laparoscopic cholecystectomy Social History household members: children Smoking Status: Current every day smoker tobacco type: cigarettes substance use type: does not use ROS ROS ED Constitutional Constitutional ED: Denies chills or fever(s) Eyes Eyes: Denies blurry vision or change in vision ENT ENT ED: Denies rhinorrhea or sore throat Cardiovascular Cardiovascular: Denies chest pain or palpitations Respiratory/Chest Respiratory/Chest: Denies cough or dyspnea Gastrointestinal Gastrointestinal: Reports abdominal pain, diarrhea and nausea; Denies vomiting Genitourinary Genitourinary ED: Denies dysuria or hematuria Musculoskeletal Musculoskeletal: Denies back pain or neck pain Integumentary Denies abscess or rash Neurologic Neurologic: Denies headache(s) or weakness Allergic/Immunologic Allergic/Immunologic ED: Denies mouth swelling or urticaria EXAM Physical Exam Const Vital Signs: 04/27/23 10:26 04/27/23 13:36 Temperature 97.6 F L Temperature Source Temporal Pulse Rate 90 72 Respiratory Rate 18 18 Blood Pressure 150/104 H 125/70 H Blood Pressure Mean 119 88 Pulse Ox 100 100 Oxygen Delivery Method Room Air Positive well nourished and well developed General Appearance ED: well developed and NAD HEENT Reports moist mucous membranes Neck supple and no JVD Resp normal respiratory effort and clear to auscultation bilaterally Cardio regular rate and regular rhythm GI non-distended Palpation: soft and tender epigastric, LLQ, RLQ, LUQ, RUQ, periumbilical and suprapubic; Negative for guarding or rebound tenderness present Extremity full ROM Neuro CN's II-XII intact bilaterally, moves all extremities and no sensory deficits noted Sensorium / Orientation: alert Motor Exam: strength 5/5 throughout Psych mental status grossly normal and thought process normal MDM MDM MDM Narrative Medical decision making narrative: Differential diagnosis includes exacerbation of Crohn's disease, bowel obstruction, perforation, gastroenteritis, urinary tract infection, pyelonephritis, pancreatitis, ectopic , and ovarian cyst. CBC will be obtained to assess for leukocytosis and anemia. Comprehensive metabolic profile will be obtained to assess for hepatic function, renal function, and electrolyte abnormality. Lipase will be obtained to assess for pancreatitis. Urinalysis will be obtained to assess for urinary tract infection. Serum hCG will be obtained to assess for . Lab Data Attestation: I reviewed the patient's lab results. Lab results narrative: CBC was reviewed and was within normal limits. Comprehensive metabolic profile was reviewed and was within normal limits. Lipase was reviewed and was normal at 22. Serum hCG was reviewed and was negative. Urinalysis was reviewed. There is no evidence of urinary tract infection or hematuria. Labs: Laboratory Results - last 24 hr 04/27/23 04/27/23 10:55 11:25 WBC 8.0 RBC 4.32 Hgb 13.5 Hct 39.5 MCV 91.4 MCH 31.3 MCHC 34.2 RDW Std Deviation 43.2 RDW Coeff of Kim 12.8 Plt Count 399 MPV 8.9 Immature Gran % (Auto) 0.200 Neut % (Auto) 55.2 Lymph % (Auto) 34.3 [place] % (Auto) 8.5 Eos % (Auto) 1.4 Baso % (Auto) 0.4 Absolute Neuts (auto) 4.4 Absolute Lymphs (auto) 2.75 Nucleated RBC % 0 Sodium 141 Potassium 3.7 Chloride 106 Carbon Dioxide 26.0 Anion Gap 9 BUN 8 Creatinine 0.88 Estim Creat Clear Calc 71.00 Est GFR (MDRD) Af Amer 93 Est GFR (MDRD) Non-Af 76 BUN/Creatinine Ratio 9.1 L Glucose 84 Calcium 8.7 Total Bilirubin 0.20 AST 17 ALT 37 Alkaline Phosphatase 97 Total Protein 7.6 Albumin 3.7 Globulin 3.9 Albumin/Globulin Ratio 0.9 Lipase 22 Serum , Qual NEGATIVE Urine Color Yellow Urine Clarity Clear Urine pH 6.0 Ur Specific [place] 1.020 Urine Protein 15 H Urine Glucose (UA) Normal Urine Ketones 5 H Urine Occult Blood Negative Urine Nitrite Negative Urine Bilirubin Negative Urine Urobilinogen 1 H Ur Leukocyte Esterase 25 H Urine RBC 0 SEEN Urine WBC 0-5 SEEN Ur Squamous Epith Cells 0-5 SEEN Urine Bacteria 0 SEEN Urine Mucus 0 SEEN Treatment and Re-Evaluation :: Patient was given IV fluids, morphine, and Zofran. Patient had minimal relief with this. Patient was given a repeat dose of morphine and Toradol. Patient was feeling better on reevaluation. Patient was advised of her findings. Patient was given a prescription for a short course of prednisone. Patient was instructed continue her Bentyl as needed for pain. Patient was instructed to continue her Zofran as needed for nausea. Patient was instructed to take Tylenol and ibuprofen as well for pain. Patient was instructed to follow-up with her primary care physician in 5 to 7 days. Patient was instructed return if worse in any way. Patient understood and was agreeable with the plan. All questions were answered. Discharge Plan Triage Chief Complaint: Abd Pain ED Provider: Fernando Huerta Dx/Rx/DC Orders Clinical Impression: Crohn's disease, Abdominal pain Instructions: ED Abdominal Pain Unkn Cause Fem, ED Crohn's Disease Prescriptions: New prednisone 20 mg tablet 60 mg PO DAILY Qty: 15 0RF No Action hydroxyzine pamoate 25 mg capsule 25 mg PO QHS prochlorperazine maleate [Compazine] 10 mg tablet 10 mg PO TID PRN (Reason: nausea and vomiting) Qty: 90 2RF escitalopram oxalate [Lexapro] 20 mg tablet 20 mg PO DAILY lamotrigine [Lamictal] 100 mg tablet 200 mg PO DAILY dicyclomine 20 mg tablet 20 mg PO TID Qty: 14 0RF lisinopril 30 mg Tablet 30 mg PO DAILY albuterol sulfate [Ventolin HFA] 90 mcg/actuation Hfa Aerosol Inhaler 1 inh INHALATION Q6H PRN (Reason: ASTHMA) ciprofloxacin HCl [Cipro] 500 mg tablet 500 mg PO DAILY 10 Days Qty: 10 0RF ondansetron 4 mg tablet,disintegrating 4 mg PO Q6H PRN (Reason: nausea and vomiting) Qty: 10 0RF Stelara 90 mg/mL syringe 90 mg subcut Q8W Qty: 1 5RF Rx Instructions: Crohn's Primary Care Provider: Michelle Grimm NP Referrals: Michelle Grimm NP, MANAGER DELIVERY-C [Primary Care Provider] - 3-5 Days Disposition Disposition: Home, Self Care Discharge Date/Time: 04/27/23 13:37
[2023-04-27 11:09] LABS: Absolute Lymphocyte Count 2.75 X10^3/uL (0.83-4.51); Absolute Neutrophil Count 4.4 X10^3/uL (2.0-7.7); Basophil# 0.03 X10^3/uL; Basophil% 0.4 % (0-1); Eosinophil# 0.11 X10^3/uL; Eosinophils% 1.4 % (0-5); Hematocrit 39.5 % (37-47); Hemoglobin 13.5 g/dL (12.0-15.0); Lymphocyte # 2.75 X10^3/ul (0.83-4.51); Lymphocyte % 34.3 % (19-41); Mean Corp Hgb Conc 34.2 g/dL (32-36); Mean Corpuscular Hgb 31.3 pg (27.0-32.0); Mean Corpuscular Volume 91.4 fL (81-99); Mean Platelet Vol. 8.9 fl (6.2-12.0); Monocyte# 0.68 X10^3/uL; Monocyte% 8.5 % (0-10); NRBC Flagged by Analyzer 0 % (0-5); Neutrophil # 4.43 X10^3/uL (2.7-7.7); Neutrophil % 55.2 % (47-70); Platelet Count 399 K/mm3 (150-450); RBC Distribution Width CV 12.8 % (11.6-14.6); RBC Distribution Width SD 43.2 fl (35.1-43.9); Red Blood Count 4.32 M/mm3 (4.2-5.4)
[2023-04-27] MEDS: 0.9% Normal Saline (1000mL) 1,000 ML 1000 ML IV (11:13)
[2023-04-27] MEDS: Ondansetron 4 MG/2 ML Vial IV (11:14)
[2023-04-27] MEDS: Morphine 4 MG/ML Syringe IV ×2 (11:14→13:03)
[2023-04-27 11:21] LABS: ALB/GLOB Ratio 0.9 RATIO (0.9-2.4); AST(SGOT) 17 U/L (15-37); Alanine Aminotransfer ALT/SGPT 37 U/L (13-56); Albumin, Serum 3.7 g/dL (3.2-5.0); Alkaline Phosphatase 97 U/L (45-117); Anion Gap 9 (5-15); BUN 8 mg/dL (7-18); BUN/Creat Ratio 9.1 RATIO (10-20); Calcium,Total 8.7 mg/dL (8.5-10.1); Chloride 106 mmol/L (98-107); Creatinine, Serum 0.88 mg/dL (0.55-1.02); EST Glomerular Filtration Rate 76 mL/min (>60); Est Glom Filt Rate - Afr Amer 93 mL/min (>60); Globulin 3.9 g/dL (2.2-4.2); Glucose 84 mg/dL (74-106); Lipase 22 U/L (13-75); Potassium 3.7 mmol/L (3.5-5.1); Protein, Total 7.6 g/dL (6.4-8.2); Sodium Level 141 mmol/L (136-145)
[2023-04-27 11:23] LABS: Internal QC Validated? YES +Cl - CLEAR BKGD; Pregnancy, Serum, hCG Quali. NEGATIVE Negative
[2023-04-27 11:30] LABS: Bacteria 0 SEEN /hpf (None Seen); Mucous, Urine 0 SEEN /hpf (<or=2+); Red Blood Cells-Urine 0 SEEN /hpf (0-5)
[2023-04-27 12:04] LABS: Color, Urine Yellow (Yellow); Glucose, Dipstick Normal (Normal); Ketone-Dipstick 5 mg/dl (Negative); Leukocyte Esterase-Dipstick 25 /ul (Negative); Nitrite-Dipstick Negative (Negative); Occult Blood-Urine Negative /ul (Negative); Protein-Dipstick 15 mg/dl (Negative); Urine Bilirubin Dipstick Negative (Negative); Urine Clarity Clear (Clear); Urine Urobilinogen 1 mg/dl (Normal)
[2023-04-27 12:42] LABS: Squamous Epithelial Cells - UA 0-5 SEEN /hpf (5-10); White Blood Cells 0-5 SEEN /hpf (0-5)
[2023-04-27] MEDS: Ketorolac 30 MG/ML Syringe IV (13:02)
[2023-04-27] MEDS: predniSONE 20 MG Tablet 60 MG PO (13:29)
[2023-04-27 13:36] VITALS: BP 125/70; PULSE 72; RESP 18; O2SAT 100
== END 2023-04-27 13:37 | disposition home or self-care (01) ==
PROVIDERS: Emergency Provider Emergency Medicine; PCP Nurse Practitioner Primary Care; Visit Provider Emergency Medicine
DX: K50.90 Crohn's disease, unspecified, without complications (principal); F17.210 Nicotine dependence, cigarettes, uncomplicated; I10 Essential (primary) hypertension; R19.7 Diarrhea, unspecified; R11.0 Nausea; J45.909 Unspecified asthma, uncomplicated; Z79.52 Long term (current) use of systemic steroids
CPT/HCPCS: 80053; 81001; 83690; 84703; 85025; 96361; 96374; 96375; 96376; 99283; J7030; A4216; J2405

== ENCOUNTER 2023-07-27 15:40 | Emergency (ER) | payer MEDICAID, SELFPAY ==
[2023-07-27 15:41] VITALS: BP 123/103; PULSE 88; RESP 16; TEMP 36.1; O2SAT 97; BMI 35.0
--- NOTE | 2023-07-27 16:06 | EX.ED.DYSGE1 ---
HPI <KATHIE Batista - Last Filed: 07/27/23 21:52> History of Present Illness Chief Complaint: Nausea/Vomiting/Diarrhea Narrative Narrative: 38-year-old female with PMH of Crohn's disease controlled on Stelara/dicyclomine, cholecystectomy, tubal ligation states she woke up this morning and developed vomiting, abdominal pain, diarrhea. She has vomited approximately 4 times and had 3-4 episodes of diarrhea. Denies blood in her vomit or stool. No fever or chills. No chest pain or shortness of breath. She denies any changes to her diet or medications. No recent antibiotics. PFSH <KATHIE Batista - Last Filed: 07/27/23 21:52> PFSH Medical History Anemia Anxiety Asthma Bipolar 1 disorder Cannabis hyperemesis syndrome concurrent with and due to cannabis abuse Crohn's disease Depression Heartburn History of blood transfusion Hypertension Low iron Marijuana use Migraine headache Smoker Home Medications escitalopram oxalate 20 mg tablet (Lexapro) 20 mg PO DAILY 08/15/21 [History Last Taken Unknown] hydroxyzine pamoate 25 mg capsule 25 mg PO QHS 08/15/21 [History Last Taken Unknown] lamotrigine 100 mg tablet (Lamictal) 200 mg PO DAILY 08/15/21 [History Last Taken Unknown] albuterol sulfate 90 mcg/actuation aerosol inhaler (Ventolin HFA) 1 inh inhalation Q6H PRN ASTHMA 10/24/22 [History Last Taken Unknown] lisinopril 30 mg tablet 30 mg PO DAILY 10/24/22 [History Last Taken Unknown] ciprofloxacin HCl 500 mg tablet (Cipro) 500 mg PO DAILY 10 days #10 tabs 11/23/22 [Rx Last Taken Unknown] ondansetron 4 mg disintegrating tablet 4 mg PO Q6H PRN nausea and vomiting #10 tabs 01/17/23 [Rx Last Taken Unknown] ustekinumab 90 mg/mL subcutaneous syringe (Stelara) 90 mg subcut Q8W #1 mL 01/29/23 [Rx Last Taken Unknown] prochlorperazine maleate 10 mg tablet (Compazine) 10 mg PO TID PRN nausea and vomiting #90 tabs 03/31/23 [Rx Last Taken Unknown] prednisone 20 mg tablet 60 mg (3 x 20 mg) PO DAILY #15 TABLETS 04/27/23 [Rx Last Taken Unknown] dicyclomine 20 mg tablet 20 mg PO TID PRN abdominal pain #45 tabs 06/19/23 [Rx Last Taken Unknown] promethazine 25 mg tablet 25 mg PO TID PRN nausea and vomiting 4 days #12 tabs 07/27/23 [Rx Last Taken Unknown] Allergy/AdvReac Type Severity Reaction Status Date / Time amoxicillin Allergy Rash Verified 04/27/23 10:28 tramadol Allergy Rash Verified 04/27/23 10:28 Family History Mother Mental disorder Surgical History History of esophagogastroduodenoscopy (EGD) S/P ERCP S/P laparoscopic cholecystectomy Social History household members: children Smoking Status: Current every day smoker tobacco type: cigarettes substance use type: does not use ROS <KATHIE Batista - Last Filed: 07/27/23 21:52> ROS ED ROS Narrative Constitutional: Negative for fever, chills, malaise. GI: Positive for abdominal pain, nausea, vomiting, diarrhea. Negative for melena, hematochezia. : Negative for dysuria, hematuria or frequency. EXAM <KATHIE Batista - Last Filed: 07/27/23 21:52> Physical Exam Narrative Exam Narrative: CONST: Patient sitting in no acute distress. EYES: Normal inspection. NECK: Normal inspection. RESP: No respiratory distress, CTAB. CVS: Regular rate and rhythm, no murmur, no gallop. ABD: Soft with upper abdominal tenderness, no guarding or rebound, nondistended, no hepatosplenomegaly. SKIN: Color normal, no rash, warm, dry, intact. EXTREMITIES: Normal appearance, no pedal edema. NEURO: Oriented x4. PSYCH: Normal affect. Const Vital Signs: 07/27/23 15:41 07/27/23 17:26 07/27/23 18:22 Temperature 97.0 F L 97.4 F L Temperature Source Temporal Pulse Rate 88 76 76 Respiratory Rate 16 16 16 Blood Pressure 123/103 H 139/64 H 137/78 H Blood Pressure Mean 109 89 97 Pulse Ox 97 99 98 Oxygen Delivery Method Room Air Room Air <Dr. Ben Mason DO - Last Filed: 07/27/23 22:46> Physical Exam Const Vital Signs: 07/27/23 15:41 07/27/23 17:26 07/27/23 18:22 Temperature 97.0 F L 97.4 F L Temperature Source Temporal Pulse Rate 88 76 76 Respiratory Rate 16 16 16 Blood Pressure 123/103 H 139/64 H 137/78 H Blood Pressure Mean 109 89 97 Pulse Ox 97 99 98 Oxygen Delivery Method Room Air Room Air MDM <KATHIE Batista - Last Filed: 07/27/23 21:52> [facility] Narrative Medical decision making narrative: Differential: Viral gastroenteritis, marijuana use, pancreatitis, gastritis, gallbladder etiology Patient has nausea and vomiting, abdominal pain, and diarrhea. She appears well and nontoxic. Vital signs stable. She has upper abdominal tenderness with no guarding or rebound. Negative Smalls sign. She was given IV fluids, Toradol and Phenergan. CBC, CMP, and lipase are unremarkable. However on reassessment patient complained of continued pain so was given IV morphine and his CT scan was ordered which shows no acute findings. It notes bilateral adnexal cystic lesions but she does not have any lower abdominal tenderness so does not need an ultrasound. She feels improved after treatment and is tolerating p.o. intake. I prescribed promethazine for home and discussed symptomatic treatment and she was discharged in stable condition. Lab Data Attestation: I reviewed the patient's lab results. Labs: Laboratory Results - last 24 hr 07/27/23 16:25 WBC 7.0 RBC 4.23 Hgb 12.9 Hct 38.5 MCV 91.0 MCH 30.5 MCHC 33.5 RDW Std Deviation 44.4 H RDW Coeff of Kim 13.3 Plt Count 392 MPV 9.0 Immature Gran % (Auto) 0.300 Neut % (Auto) 55.3 Lymph % (Auto) 36.5 [place] % (Auto) 6.4 Eos % (Auto) 0.9 Baso % (Auto) 0.6 Absolute Neuts (auto) 3.9 Absolute Lymphs (auto) 2.57 Nucleated RBC % 0 Sodium 139 Potassium 3.5 Chloride 109 H Carbon Dioxide 23.0 Anion Gap 7 BUN 9 Creatinine 0.86 Estim Creat Clear Calc 93.40 Est GFR (MDRD) Af Amer 95 Est GFR (MDRD) Non-Af 78 BUN/Creatinine Ratio 10.5 Glucose 84 Calcium 9.3 Total Bilirubin 0.30 AST 23 ALT 37 Alkaline Phosphatase 85 Total Protein 7.7 Albumin 4.1 Globulin 3.6 Albumin/Globulin Ratio 1.1 Lipase 20 Radiography Diagnostic Testing: Clinical Impression(s) from Imaging Studies Abdomen/Pelvis CT 07/27/23 16:57 IMPRESSION: There is a subtle enhancing region along the periphery of the right hepatic lobe with central low attenuation in the liver. An area of focal nodular hyperplasia cannot be excluded. Correlate with ultrasound if needed. Colonic diverticulosis. Stable left adrenal lesion. Bilateral adnexal cystic lesions. Electronically Signed: El Cooper DO at 17:51 EDT Reading Location ID and State: [facility] / [place] Tel [phone], Service support , <Dr. Ben Mason DO - Last Filed: 07/27/23 22:46> [facility] Narrative Medical decision making narrative: Differential: Viral gastroenteritis, marijuana use, pancreatitis, gastritis, gallbladder etiology Patient has nausea and vomiting, abdominal pain, and diarrhea. She appears well and nontoxic. Vital signs stable. She has upper abdominal tenderness with no guarding or rebound. Negative Smalls sign. She was given IV fluids, Toradol and Phenergan. CBC, CMP, and lipase are unremarkable. However on reassessment patient complained of continued pain so was given IV morphine and his CT scan was ordered which shows no acute findings. It notes bilateral adnexal cystic lesions but she does not have any lower abdominal tenderness so does not need an ultrasound. She feels improved after treatment and is tolerating p.o. intake. I prescribed promethazine for home and discussed symptomatic treatment and she was discharged in stable condition. This patient was seen with a PA/DIRECTOR OF [employer]BI[employer] Individually assessed they patient including history and physical. I have reviewed everything on the chart that is available and agree with the documentation provided by the PA/DIRECTOR OF [employer] including discussion about the assessment, treatment plan, discussion, and return precautions. 38-year-old female with history of nausea, vomiting, diarrhea. Differential as above. Patient medicated with Phenergan, Toradol, IV fluids. Blood work was obtained and is unremarkable. Patient complained of continued pain was given morphine. Because of this a CT scan was ordered which was negative. Patient tolerating p.o. fluids afterwards. Patient prescribed Ativan for home. We discussed cannabinoid hyperemesis syndrome as the patient states he uses marijuana on a regular basis. Impression: 1. Marijuana use 2. Abdominal pain 3. Nausea/vomiting 4. History of Crohn's disease Lab Data Labs: Laboratory Results - last 24 hr 07/27/23 16:25 WBC 7.0 RBC 4.23 Hgb 12.9 Hct 38.5 MCV 91.0 MCH 30.5 MCHC 33.5 RDW Std Deviation 44.4 H RDW Coeff of Kim 13.3 Plt Count 392 MPV 9.0 Immature Gran % (Auto) 0.300 Neut % (Auto) 55.3 Lymph % (Auto) 36.5 [place] % (Auto) 6.4 Eos % (Auto) 0.9 Baso % (Auto) 0.6 Absolute Neuts (auto) 3.9 Absolute Lymphs (auto) 2.57 Nucleated RBC % 0 Sodium 139 Potassium 3.5 Chloride 109 H Carbon Dioxide 23.0 Anion Gap 7 BUN 9 Creatinine 0.86 Estim Creat Clear Calc 93.40 Est GFR (MDRD) Af Amer 95 Est GFR (MDRD) Non-Af 78 BUN/Creatinine Ratio 10.5 Glucose 84 Calcium 9.3 Total Bilirubin 0.30 AST 23 ALT 37 Alkaline Phosphatase 85 Total Protein 7.7 Albumin 4.1 Globulin 3.6 Albumin/Globulin Ratio 1.1 Lipase 20 Radiography Diagnostic Testing: Clinical Impression(s) from Imaging Studies Abdomen/Pelvis CT 07/27/23 16:57 IMPRESSION: There is a subtle enhancing region along the periphery of the right hepatic lobe with central low attenuation in the liver. An area of focal nodular hyperplasia cannot be excluded. Correlate with ultrasound if needed. Colonic diverticulosis. Stable left adrenal lesion. Bilateral adnexal cystic lesions. Electronically Signed: El Cooper DO at 17:51 EDT , Discharge Plan Triage Chief Complaint: Nausea/Vomiting/Diarrhea ED Midlevel Provider: Regla Ortiz ED Provider: Ben Mason Dx/Rx/DC Orders Clinical Impression: Diarrhea, Abdominal pain, Vomiting Instructions: Abdominal Pain Prescriptions: New promethazine 25 mg tablet 25 mg PO TID PRN (Reason: nausea and vomiting) 4 Days Qty: 12 0RF No Action hydroxyzine pamoate 25 mg capsule 25 mg PO QHS prochlorperazine maleate [Compazine] 10 mg tablet 10 mg PO TID PRN (Reason: nausea and vomiting) Qty: 90 2RF escitalopram oxalate [Lexapro] 20 mg tablet 20 mg PO DAILY lamotrigine [Lamictal] 100 mg tablet 200 mg PO DAILY lisinopril 30 mg Tablet 30 mg PO DAILY albuterol sulfate [Ventolin HFA] 90 mcg/actuation Hfa Aerosol Inhaler 1 inh INHALATION Q6H PRN (Reason: ASTHMA) ciprofloxacin HCl [Cipro] 500 mg tablet 500 mg PO DAILY 10 Days Qty: 10 0RF ondansetron 4 mg tablet,disintegrating 4 mg PO Q6H PRN (Reason: nausea and vomiting) Qty: 10 0RF prednisone 20 mg tablet 60 mg PO DAILY Qty: 15 0RF Stelara 90 mg/mL syringe 90 mg subcut Q8W Qty: 1 5RF Rx Instructions: Crohn's dicyclomine 20 mg tablet 20 mg PO TID PRN (Reason: abdominal pain) Qty: 45 2RF Primary Care Provider: Michelle Grimm NP Referrals: Michelle Grimm NP, [employer]-[facility] [Primary Care Provider] - Activity Restrictions/Additional Instructions: I prescribed Phenergan which is as needed for nausea and vomiting. I recommend you do not smoke weed as this can worsen vomiting issues. You can take Tylenol for pain and Imodium for diarrhea as needed. Disposition Disposition: Home, Self Care Discharge Date/Time: 07/27/23 18:27
[2023-07-27] MEDS: 0.9% Normal Saline (1000mL) 1,000 ML 999 ML IV (16:22)
[2023-07-27] MEDS: proMETHazine 25 MG/ML Syringe 12.5 MG IM (16:23)
[2023-07-27] MEDS: Ketorolac 15 MG/ML Vial IV (16:23)
[2023-07-27 16:39] LABS: Absolute Lymphocyte Count 2.57 X10^3/uL (0.83-4.51); Absolute Neutrophil Count 3.9 X10^3/uL (2.0-7.7); Basophil# 0.04 X10^3/uL; Basophil% 0.6 % (0-1); Eosinophil# 0.06 X10^3/uL; Eosinophils% 0.9 % (0-5); Hematocrit 38.5 % (37-47); Hemoglobin 12.9 g/dL (12.0-15.0); Lymphocyte # 2.57 X10^3/ul (0.83-4.51); Lymphocyte % 36.5 % (19-41); Mean Corp Hgb Conc 33.5 g/dL (32-36); Mean Corpuscular Hgb 30.5 pg (27.0-32.0); Monocyte# 0.45 X10^3/uL; Monocyte% 6.4 % (0-10); NRBC Flagged by Analyzer 0 % (0-5); Neutrophil % 55.3 % (47-70); Platelet Count 392 K/mm3 (150-450); RBC Distribution Width CV 13.3 % (11.6-14.6); RBC Distribution Width SD 44.4 fl (35.1-43.9); Red Blood Count 4.23 M/mm3 (4.2-5.4)
[2023-07-27 16:54] LABS: ALB/GLOB Ratio 1.1 RATIO (0.9-2.4); AST(SGOT) 23 U/L (15-37); Alanine Aminotransfer ALT/SGPT 37 U/L (13-56); Albumin, Serum 4.1 g/dL (3.2-5.0); Alkaline Phosphatase 85 U/L (45-117); Anion Gap 7 (5-15); BUN 9 mg/dL (7-18); BUN/Creat Ratio 10.5 RATIO (10-20); Calcium,Total 9.3 mg/dL (8.5-10.1); Chloride 109 mmol/L (98-107); Creatinine, Serum 0.86 mg/dL (0.55-1.02); EST Glomerular Filtration Rate 78 mL/min (>60); Est Glom Filt Rate - Afr Amer 95 mL/min (>60); Globulin 3.6 g/dL (2.2-4.2); Glucose 84 mg/dL (74-106); Lipase 20 U/L (13-75); Potassium 3.5 mmol/L (3.5-5.1); Protein, Total 7.7 g/dL (6.4-8.2); Sodium Level 139 mmol/L (136-145)
--- OUTSIDE RECORDS SUMMARY | 2023-07-27 16:54 | XMS RPT_ITS | CCD ---
Author Name Unknown Address [id number] [place] [address] Organization [facility] Care Team Providers Care Support Services Manager Name Role Phone [facility] Unavailable Unavailable JEREMIAH OMALLEY Unavailable Unavailable [facility] Unavailable Unavailable [facility] Unavailable Unavailable SALMA BENJAMIN Unavailable Unavailable [facility] Unavailable Unavailable April Corral MD Primary Care Provider April Corral MD Primary Care Provider April Corral MD Primary Care Provider April Corral MD Primary Care Provider [facility] Primary Care Physician Unavailab le Herrera SERVICE CAR OPERATOR.PLACEMENT OFFICER, Trinity Unavailable MICHELLE GRIMM Referring Unavailable APRIL CORRAL Primary Care Unavailab AALIYAH Bojorquez Referring Unavailable APRIL CORRAL Primary Care Unavailab le APRIL CORRAL Primary Care Unavailab le APRIL CORRAL Primary Care Unavailab le PODLOGARMICHELLE Referring Unavailable APRIL CORRAL B Primary Care Unavailab le HERRERA, TRINITY Attending Unavailable HERRERA, TRINITY Referring Unavailable URBANO CORRALOPHER B Primary Care Unavailab le PODLOGARMICHELLE Attending Unavailable APRIL CORRAL B Primary Care Unavailab le HERRERA, TRINITY Attending Unavailable APRIL CORRAL B Primary Care Unavailab le HERRERA, TRINITY Referring Unavailable HERRERA, TRINITY Attending Unavailable APRIL CORRAL B Primary Care Unavailab le HERRERA, TRINITY Referring Unavailable APRIL CORRAL B Primary Care Unavailab le APRIL CORRAL B Primary Care Unavailab le HERRERA, TRINITY Attending Unavailable TRINITY HERRERA Referring Unavailable Allergies Allergy Classification Reported Allergen(s) Allergy Type Date of Onset Reaction(s) Facility (20 sources) Amoxicillin; Translations: [amoxicillin] Drug Allergy 07-01-2020 [facility] Work Phone: (20 sources) traMADol; Translations: [tramadol] Drug Allergy 07-01-2020 [facility] Work Phone: Medications Current Medications Medication Drug Class(es) Dates Sig (Normalized) Sig (Original) azithromycin 250 mg oral tablet (1 source) Macrolide Antimicrobial Start: 03-16-2023 End: 03-21-2023 take 2 tablets by mouth once daily, then take 1 tablet by mouth once daily azithromycin (ZITHROMAX) 250 mg tablet Take 2 tablets by mouth once daily for 1 day, THEN 1 tablet once daily for 4 days. 6 tablet 0 03/16/2023 03/21/2023 Active Completed/Discontinued Medications Medication Drug Class(es) Dates Sig (Normalized) Sig (Original) [id number] 200 actuat albuterol 0.09 mg/actuat metered dose inhaler (20 sources) beta2-Adrenergic Agonist Start: 12-07-2022 End: 06-15-2023 take 2 puff(s) by inhalation every six hours as needed for wheezing albuterol HFA (PROVENTIL HFA, VENTOLIN HFA) 90 mcg/actuation inhaler Indications: Wheezing , Mild intermittent asthma with acute exacerbation Inhale 2 Puffs as instructed every 6 hours as needed for wheezing/shortness of breath. 8.5 g 1 06/16/2023 Active Problems Active Problems Problem Classification Problem Date Documented Date Episodic/Chronic Anxiety disorders (2 sources) Generalized anxiety disorder; Translations: [Generalized anxiety disorder] Chronic Asthma (4 sources) Mild intermittent asthma; Translations: [Mild intermittent asthma with (acute) exacerbation] Chronic Conditions associated with dizziness or vertigo (1 source) Dizziness; Translations: [Dizziness and giddiness] Episodic Disorders of lipid metabolism (1 source) Mixed hyperlipidemia; Translations: [Mixed hyperlipidemia] Chronic Esophageal disorders (2 sources) Gastroesophageal reflux disease without esophagitis; Translations: [Gastro-esophageal reflux disease without esophagitis] Onset: 06-23-2023 04-23-2023 Chronic Essential hypertension (20 sources) Essential hypertension; Translations: [Essential (primary) hypertension] Onset: 02-12-2022 Chronic Headache; including migraine (1 source) Migraine with aura; Translations: [Migraine with aura, not intractable, without status migrainosus] Chronic Miscellaneous mental health disorders (1 source) depression 09-10-2014 Episodic Mood disorders (3 sources) Bipolar disorder; Translations: [Bipolar disorder, unspecified] Chronic Other circulatory disease (2 sources) Elevated blood-pressure reading without diagnosis of hypertension; Translations: [Elevated blood-pressure reading, without diagnosis of hypertension] Episodic Other connective tissue disease (1 source) Pain in right hand; Translations: [Pain in right hand] Episodic Other endocrine disorders (1 source) Disorder of adrenal gland, unspecified; Translations: [Disorder of adrenal gland (HCC)] Onset: 05-09-2023 Chronic Other lower respiratory disease (1 source) Cough; Translations: [Acute cough] Episodic Other lower respiratory disease (3 sources) Wheezing; Translations: [Wheezing] Episodic Other non-traumatic joint disorders (1 source) Hip pain; Translations: [Pain in right hip] Episodic Other nutritional; endocrine; and metabolic disorders (20 sources) Obese class I; Translations: [Obesity, unspecified] Onset: 02-11-2022 Chronic Other upper respiratory infections (4 sources) Viral upper respiratory tract infection; Translations: [Acute upper respiratory infection, unspecified] Episodic Otitis media and related conditions (1 source) Acute right otitis media; Translations: [Otitis media, unspecified, right ear] 03-16-2023 Episodic Regional enteritis and ulcerative colitis (20 sources) Crohn's disease; Translations: [Crohn's disease, unspecified, without complications] Onset: 02-15-2022 05-14-2022 Chronic Residual codes; unclassified (1 source) Pain, unspecified; Translations: [Pain] Onset: 06-03-2023 Episodic Spondylosis; intervertebral disc disorders; other back problems (2 sources) Acute thoracic back pain; Translations: [Pain in thoracic spine] Episodic Sprains and strains (1 source) Disorder of thoracic segment of trunk; Translations: [Strain of muscle and tendon of unspecified wall of thorax, initial encounter] Episodic Substance-related disorders (20 sources) Cannabis hyperemesis syndrome co-occurrent and due to cannabis abuse; Translations: [Cannabis abuse with other cannabis-induced disorder] Onset: 05-14-2022 05-14-2022 Chronic Unclassified (1 source) Unknown / UNK(Unknown) Onset: 11-08-2016 Past or Other Problems Problem Classification Problem Date Documented Da te Episodic/Chronic Abdominal pain (20 sources) Left lower quadrant pain; Translations: [Left lower quadrant pain] Onset: 05-07-2021 Episodic Headache; including migraine (20 sources) Headache; Translations: [Headache, unspecified headache type] Onset: 05-14-2022 Episodic Nausea and vomiting (20 sources) Nausea and vomiting; Translations: [Nausea with vomiting, unspecified] Onset: 02-12-2022 Episodic Other gastrointestinal disorders (20 sources) Diarrhea; Translations: [Diarrhea, unspecified] Onset: 05-14-2022 05-14-2022 Episodic Other gastrointestinal disorders (20 sources) History of Crohns disease; Translations: [Personal history of other diseases of the digestive system] Onset: 05-14-2022 05-14-2022 Episodic Screening and history of mental health and substance abuse codes (20 sources) H/O: manic depressive disorder; Translations: [Personal history of other mental and behavioral disorders] Onset: 05-14-2022 05-14-2022 Episodic Superficial injury; contusion (20 sources) Corneal abrasion; Translations: [Injury of conjunctiva and corneal abrasion without foreign body, unspecified eye, initial encounter] Onset: 05-14-2022 05-14-2022 Episodic Unclassified (1 source) R HIP AND BACK PAIN/NO DX Onset: 11-08-2016 Urinary tract infections (20 sources) Cystitis; Translations: [Cystitis, unspecified without hematuria] Onset: 05-14-2022 05-14-2022 Episodic Results Test Name Value Interpretation Reference Range Facil ity Vital Signs Date Time Vital Sign Value Performing Clinician Facility 03-16-2023 13:32-0500 Body temperature 97.7 [degF] Stefani Gaspar APRN.CNP Work Phone: [facility] 03-16-2023 13:32-0500 Body weight 87.54 kg Stefani Gaspar APRN.CNP Work Phone: [facility] 03-16-2023 13:32-0500 Diastolic blood pressure 85 mm[Hg] Stefani Gaspar SERVICE CAR OPERATOR.PLACEMENT OFFICER Work Phone: [facility] 03-16-2023 13:32-0500 Heart rate 82 /min Stefani Gaspar SERVICE CAR OPERATOR.PLACEMENT OFFICER Work Phone: [facility] 03-16-2023 13:32-0500 Respiratory rate 18 /min Stefani Gaspar SERVICE CAR OPERATOR.PLACEMENT OFFICER Work Phone: [facility] 03-16-2023 13:32-0500 SaO2% (BldA) [Mass fraction] 100 % Stefani Gaspar SERVICE CAR OPERATOR.PLACEMENT OFFICER Work Phone: [facility] 03-16-2023 13:32-0500 Systolic blood pressure 118 mm[Hg] Stefani Gaspar SERVICE CAR OPERATOR.PLACEMENT OFFICER Work Phone: [facility] 01-10-2023 15:41-0400 Diastolic Blood Pressure Non-Invasive [address] FIDEL HUMPHREYS MD [place] 01-10-2023 15:41-0400 Heart rate 98 /min DR FIDEL HUMPHREYS MD [place] 01-10-2023 15:41-0400 Respiratory rate 16 /min DR FIDEL HUMPHREYS MD [place] 01-10-2023 15:41-0400 Systolic Blood Pressure Non-Invasive [address] FIDEL HUMPHREYS MD [place] 01-10-2023 14:18-0400 Body height [address] FIDLE HUMPHREYS MD [place] 01-10-2023 14:18-0400 Body temperature 98.6 [degF] DR FIDEL HUMPHREYS MD [place] 01-10-2023 14:18-0400 Body weight 86.[address] FIDEL HUMPHREYS MD [place] 01-10-2023 14:18-0400 Diastolic Blood Pressure Non-Invasive [address] FIDEL HUMPHREYS MD [place] 01-10-2023 14:18-0400 Heart rate 106 /min DR FIDEL HUMPHREYS MD [place] 01-10-2023 14:18-0400 Respiratory rate 16 /min DR FIDEL HUMPHREYS MD [place] 01-10-2023 14:18-0400 Systolic Blood Pressure Non-Invasive [address] FIDEL HUMPHREYS MD [place] 09-23-2022 11:31-0400 Body temperature 97.9 [degF] Mp Hernadez MD Work Phone: [facility] 09-23-2022 11:31-0400 Body weight 84.82 kg Mp Hernadez MD Work Phone: [facility] 09-23-2022 11:31-0400 Diastolic blood pressure 80 mm[Hg] Mp Hernadez MD Work Phone: [facility] 09-23-2022 11:31-0400 Heart rate 86 /min Mp Hernadez MD Work Phone: [facility] 09-23-2022 11:31-0400 Respiratory rate 16 /min Mp Hernadez MD Work Phone: [facility] 09-23-2022 11:31-0400 SaO2% (BldA) [Mass fraction] 97 % Mp Hernadez MD Work Phone: [facility] 09-23-2022 11:31-0400 Systolic blood pressure 126 mm[Hg] Mp Hernadez MD Work Phone: [facility] 06-17-2022 15:06-0500 Body weight 86.36 kg Michelle Grimm APRN.CNP Work Phone: [facility] 06-17-2022 15:06-0500 Diastolic blood pressure 82 mm[Hg] Michelle Podlogar SERVICE CAR OPERATOR.PLACEMENT OFFICER Work Phone: [facility] 06-17-2022 15:06-0500 Heart rate 87 /min Michelle Podlogar SERVICE CAR OPERATOR.PLACEMENT OFFICER Work Phone: [facility] 06-17-2022 15:06-0500 Respiratory rate 16 /min Michelle Podlogar SERVICE CAR OPERATOR.PLACEMENT OFFICER Work Phone: [facility] 06-17-2022 15:06-0500 SaO2% (BldA) [Mass fraction] 98 % Michelle Podlogar SERVICE CAR OPERATOR.PLACEMENT OFFICER Work Phone: [facility] 06-17-2022 15:06-0500 Systolic blood pressure 114 mm[Hg] Michelle Podlogar SERVICE CAR OPERATOR.PLACEMENT OFFICER Work Phone: [facility] 06-11-2022 08:48-0500 Body temperature 97.59 [degF] Krislyn Aberegg PA Work Phone: [facility] 06-11-2022 08:48-0500 Body weight 88 kg Krislyn Aberegg PA Work Phone: [facility] 06-11-2022 08:48-0500 Diastolic blood pressure 84 mm[Hg] Krislyn Aberegg PA Work Phone: [facility] 06-11-2022 08:48-0500 Heart rate 80 /min Krislyn Aberegg PA Work Phone: [facility] 06-11-2022 08:48-0500 Respiratory rate 18 /min Krislyn Aberegg PA Work Phone: [facility] 06-11-2022 08:48-0500 SaO2% (BldA) [Mass fraction] 99 % Krislyn Aberegg PA Work Phone: [facility] 06-11-2022 08:48-0500 Systolic blood pressure 132 mm[Hg] Krislyn Aberegg PA Work Phone: [facility] 05-14-2022 08:35-0500 Diastolic blood pressure 89 mm[Hg] Michelle Podlogar SERVICE CAR OPERATOR.PLACEMENT OFFICER Work Phone: [facility] 05-14-2022 08:35-0500 Systolic blood pressure 132 mm[Hg] Michelle Podlogar SERVICE CAR OPERATOR.PLACEMENT OFFICER Work Phone: [facility] 05-14-2022 08:12-0500 Body height 162.6 cm Michelle Podlogar SERVICE CAR OPERATOR.PLACEMENT OFFICER Work Phone: [facility] 05-14-2022 08:12-0500 Body weight 88.36 kg Michelle Podlogar SERVICE CAR OPERATOR.PLACEMENT OFFICER Work Phone: [facility] 05-14-2022 08:12-0500 Heart rate 81 /min Michelle Podlogar SERVICE CAR OPERATOR.PLACEMENT OFFICER Work Phone: [facility] 05-14-2022 08:12-0500 SaO2% (BldA) [Mass fraction] 100 % Michelle Podlogar SERVICE CAR OPERATOR.PLACEMENT OFFICER Work Phone: [facility] 05-10-2022 10:18-0500 Body temperature 98.01 [degF] Carrillo Pendlebury SERVICE CAR OPERATOR.PLACEMENT OFFICER Work Phone: [facility] 05-10-2022 10:18-0500 Body weight 89.27 kg [facility] SERVICE CAR OPERATOR.PLACEMENT OFFICER Work Phone: [facility] 05-10-2022 10:18-0500 Diastolic blood pressure 88 mm[Hg] Carrillo Pendlebury SERVICE CAR OPERATOR.PLACEMENT OFFICER Work Phone: [facility] 05-10-2022 10:18-0500 Heart rate 100 /min Carrillo Pendlebury SERVICE CAR OPERATOR.PLACEMENT OFFICER Work Phone: [facility] 05-10-2022 10:18-0500 Respiratory rate 20 /min Carrillo Pendlebury SERVICE CAR OPERATOR.PLACEMENT OFFICER Work Phone: [facility] 05-10-2022 10:18-0500 SaO2% (BldA) [Mass fraction] 96 % Carrillo Pendlebury SERVICE CAR OPERATOR.PLACEMENT OFFICER Work Phone: [facility] 05-10-2022 10:18-0500 Systolic blood pressure 126 mm[Hg] Carrillo Becca CROWDER.PLACEMENT OFFICER Work Phone: [facility] 04-19-2022 08:47-0500 Body temperature 99.1 [degF] Aaliyah Daniels APRN.PLACEMENT OFFICER Work Phone: [facility] 04-19-2022 08:47-0500 Body weight 86.36 kg aAliyah Daniels APRN.PLACEMENT OFFICER Work Phone: [facility] 04-19-2022 08:47-0500 Diastolic blood pressure 78 mm[Hg] Aaliyah Daniels APRN.PLACEMENT OFFICER Work Phone: [facility] 04-19-2022 08:47-0500 Heart rate 94 /min Aaliyah Daniels APRN.PLACEMENT OFFICER Work Phone: [facility] 04-19-2022 08:47-0500 Respiratory rate 16 /min Aaliyah Daniels APRN.PLACEMENT OFFICER Work Phone: [facility] 04-19-2022 08:47-0500 SaO2% (BldA) [Mass fraction] 97 % Aaliyah Daniels APRN.PLACEMENT OFFICER Work Phone: [facility] 04-19-2022 08:47-0500 Systolic blood pressure 142 mm[Hg] Aaliyah Daniels APRN.PLACEMENT OFFICER Work Phone: [facility] 03-23-2022 08:18-0500 Body temperature 97.7 [degF] Nicole Aguilar APRN.PLACEMENT OFFICER Work Phone: [facility] 03-23-2022 08:18-0500 Body weight 89.63 kg Nicole Aguilar APRN.PLACEMENT OFFICER Work Phone: [facility] 03-23-2022 08:18-0500 Diastolic blood pressure 96 mm[Hg] Nicole Aguilar APRN.PLACEMENT OFFICER Work Phone: [facility] 03-23-2022 08:18-0500 Heart rate 90 /min Nicole Praisler-Wood SERVICE CAR OPERATOR.PLACEMENT OFFICER Work Phone: [facility] 03-23-2022 08:18-0500 Respiratory rate 20 /min Nicole Praisler-Wood SERVICE CAR OPERATOR.PLACEMENT OFFICER Work Phone: [facility] 03-23-2022 08:18-0500 SaO2% (BldA) [Mass fraction] 96 % Nicole Praisler-Wood SERVICE CAR OPERATOR.PLACEMENT OFFICER Work Phone: [facility] 03-23-2022 08:18-0500 Systolic blood pressure 134 mm[Hg] Nicole Praisler-Wood SERVICE CAR OPERATOR.PLACEMENT OFFICER Work Phone: [facility] 02-11-2022 09:59-0400 Diastolic blood pressure 76 mm[Hg] Michelle Podlogar SERVICE CAR OPERATOR.PLACEMENT OFFICER Work Phone: [facility] 02-11-2022 09:59-0400 Heart rate 74 /min Michelle Podlogar SERVICE CAR OPERATOR.PLACEMENT OFFICER Work Phone: [facility] 02-11-2022 09:59-0400 Respiratory rate 18 /min Michelle Podlogar SERVICE CAR OPERATOR.PLACEMENT OFFICER Work Phone: [facility] 02-11-2022 09:59-0400 SaO2% (BldA) [Mass fraction] 100 % Michelle Podlogar SERVICE CAR OPERATOR.PLACEMENT OFFICER Work Phone: [facility] 02-11-2022 09:59-0400 Systolic blood pressure 114 mm[Hg] Michelle Podlogar SERVICE CAR OPERATOR.PLACEMENT OFFICER Work Phone: [facility] 01-28-2022 09:11-0400 Diastolic blood pressure 101 mm[Hg] Michelle Podlogar SERVICE CAR OPERATOR.PLACEMENT OFFICER Work Phone: [facility] 01-28-2022 09:11-0400 Heart rate 76 /min Michelle Podlogar SERVICE CAR OPERATOR.PLACEMENT OFFICER Work Phone: [facility] 01-28-2022 09:11-0400 Systolic blood pressure 146 mm[Hg] Michelle Podlogar SERVICE CAR OPERATOR.PLACEMENT OFFICER Work Phone: [facility] 01-28-2022 08:24-0400 Body weight 89.72 kg Michelle Grimm APRN.PLACEMENT OFFICER Work Phone: [facility] 01-28-2022 08:24-0400 Respiratory rate 18 /min Michelle Grimm APRN.PLACEMENT OFFICER Work Phone: [facility] 01-28-2022 08:24-0400 SaO2% (BldA) [Mass fraction] 98 % Michelle Grimm SERVICE CAR OPERATOR.PLACEMENT OFFICER Work Phone: [facility] 12-19-2021 08:43-0400 Body temperature 97.5 [degF] Aaliyah Daniels APRN.PLACEMENT OFFICER Work Phone: [facility] 12-19-2021 08:43-0400 Body weight 90.54 kg Aaliyah Daniels APRN.PLACEMENT OFFICER Work Phone: [facility] 12-19-2021 08:43-0400 Diastolic blood pressure 88 mm[Hg] Aaliyah Daniels APRN.PLACEMENT OFFICER Work Phone: [facility] 12-19-2021 08:43-0400 Heart rate 76 /min Aaliyah Daniels APRN.PLACEMENT OFFICER Work Phone: [facility] 12-19-2021 08:43-0400 Respiratory rate 21 /min Aaliyah Daniels APRN.PLACEMENT OFFICER Work Phone: [facility] 12-19-2021 08:43-0400 SaO2% (BldA) [Mass fraction] 98 % Aaliyah Daniels APRN.PLACEMENT OFFICER Work Phone: [facility] 12-19-2021 08:43-0400 Systolic blood pressure 142 mm[Hg] Aaliyah Daniels APRN.PLACEMENT OFFICER Work Phone: [facility] 08-07-2021 10:44-0400 Body weight 86.18 kg Jani Keating APRN.PLACEMENT OFFICER, DNP Work Phone: [facility] 08-07-2021 10:44-0400 Diastolic blood pressure 98 mm[Hg] Jani Keating APRN.PLACEMENT OFFICER, DNP Work Phone: [facility] 08-07-2021 10:44-0400 Heart rate 94 /min Jani Keating SERVICE CAR OPERATOR.PLACEMENT OFFICER, DNP Work Phone: [facility] 08-07-2021 10:44-0400 Respiratory rate 14 /min Jani Keating APRN.[facility], DNP Work Phone: [facility] 08-07-2021 10:44-0400 SaO2% (BldA) [Mass fraction] 98 % Jani Keating APRN.PLACEMENT OFFICER, DNP Work Phone: [facility] 08-07-2021 10:44-0400 Systolic blood pressure 146 mm[Hg] Jani Keating APRN.[facility], DNP Work Phone: [facility] 08-06-2021 19:49-0400 Body temperature 97.11 [degF] Mp Hernadez MD Work Phone: [facility] 08-06-2021 19:49-0400 Body weight 86.18 kg Mp Hernadez MD Work Phone: [facility] 08-06-2021 19:49-0400 Diastolic blood pressure 102 mm[Hg] Mp Hernadez MD Work Phone: [facility] 08-06-2021 19:49-0400 Heart rate 92 /min Mp Hernadez MD Work Phone: [facility] 08-06-2021 19:49-0400 Respiratory rate 16 /min Mp Hernadez MD Work Phone: [facility] 08-06-2021 19:49-0400 SaO2% (BldA) [Mass fraction] 97 % Mp Hernadez MD Work Phone: [facility] 08-06-2021 19:49-0400 Systolic blood pressure 148 mm[Hg] Mp Hernadez MD Work Phone: [facility] Encounters Encounter Date Encounter Type Care Provider Facility Start: 07-21-2023 Eryn Corral MD Work Phone: [facility] Procedures Date Procedure Procedure Detail Performing Clinician Start: 12-26-2022 Follow-up visit Follow Up ANTONI HERRERA Start: 04-19-2022 STREP A MOLECULAR (POC) Aaliyah Daniels APRN.PLACEMENT OFFICER Work Phone: Start: 12-17-2021 Adult depression screening assessment Aaliyah Daniels APRN.PLACEMENT OFFICER Work Phone: Start: 08-01-2021 Adult depression screening assessment Mp Hernadez MD Work Phone: Start: 08-23-2014 Ligation of fallopia n tube DR FIDEL HUMPHREYS MD Start: 08-22-2014 Vaginal delivery of fetus DR FIDEL HUMPHREYS MD Structure of wisdom tooth (body structure) DR FIDEL HUMPHREYS MD Plan of Treatment Date Care Activity Detail Author Start: 2044 HEPATITIS B (1 of 3 - Risk 3-dose series) HEPATITIS B (1 of 3 - Risk 3-dose series) [facility] Start: 2044 Hepatitis B Vaccine (1 of 3 - Risk 3-dose series) Hepatitis B Vaccine (1 of 3 - Risk 3-dose series) [facility] Start: 09-19-2025 HPV TESTING HPV TESTING [facility] Start: 09-19-2025 PAP TESTING PAP TESTING [facility] Start: 09-19-2025 Screening for malign ant neoplasm of cervix [facility] Start: 06-03-2024 BP Controlled (<130/80) BP Controlle d (<130/80) [facility] Start: 04-07-2024 Annual PCP Team Senior Sourcing Manager adina Disease Visit Annual PCP Team Chronic Disease Visit [facility] Start: 06-17-2023 ANNUAL PCP TEAM HOSPICE HOME HEALTH AIDE ADINA DISEASE VISIT ANNUAL PCP TEAM CHRONIC DISEASE VISIT [facility] Start: 05-14-2023 ANNUAL PCP TEAM HOSPICE HOME HEALTH AIDE ADINA DISEASE VISIT ANNUAL PCP TEAM CHRONIC DISEASE VISIT [facility] Start: 05-12-2023 Depression Assessment Depression Ass essment [facility] Start: 02-11-2023 ANNUAL PCP TEAM HOSPICE HOME HEALTH AIDE ADINA DISEASE VISIT ANNUAL PCP TEAM CHRONIC DISEASE VISIT [facility] Start: 02-11-2023 BP CONTROLLED (<130/80) BP CONTROLLE D (<130/80) [facility] Start: 02-11-2023 COVID-19 VACCINE (#1) COVID-19 VACCI NE (#1) [facility] Immunizations Immunization Date Immunization Notes Care Provider Stephanie rashid 04-07-2023 influenza, injectabl e, quadrivalent, contains preservative Michelle Grimm SERVICE CAR OPERATOR.PLACEMENT OFFICER Work Phone: [facility] 01-02-2022 influenza, injectabl e, quadrivalent, preservative free Carrillo Pendlebury SERVICE CAR OPERATOR.PLACEMENT OFFICER Work Phone: [facility] 01-02-2022 influenza virus vacc ine, unspecified formulation April Corral MD Work Phone: [facility] 08-01-2020 influenza, injectabl e, quadrivalent, contains preservative Mp Hernadez MD Work Phone: [facility] 08-01-2020 pneumococcal polysaccharide vaccine, 23 valent Mp Hernadez MD Work Phone: [facility] 02-19-2018 influenza, injectabl e, quadrivalent, preservative free Carrillo Pendlebury SERVICE CAR OPERATOR.PLACEMENT OFFICER Work Phone: [facility] 03-04-2017 influenza, injectabl e, quadrivalent, preservative free Carrillo Pendlebury SERVICE CAR OPERATOR.PLACEMENT OFFICER Work Phone: [facility] Payers Date Payer Category Payer Medicaid [place] [employer] [place] [employer] [id number] 2015-Present [phone] [place] [id number] Medicaid [id number] 2015 Medicaid [id number] 2014 Unknown [id number] Social History Date Type Detail Facility Start: 07-01-2020 End: 12-19-2021 Tobacco smoking status NHIS Smokes tobacco daily [facility] Work Phone: History of tobacco use Cigarette Smoker [facility] Work Phone: Start: 07-01-2020 End: 09-10-2022 Cigarettes smoked current (pack per day) - Reported 1 [facility] Start: 07-01-2020 End: 12-19-2021 Tobacco use and exposure Smokeless tobacco non-user [facility] Work Phone: Start: 08-06-2021 End: 06-24-2023 Alcohol intake Current drinker of alcohol (finding) [facility] Start: 08-07-2021 End: 05-13-2022 History SDOH Alcohol Frequency 2 [facility] Start: 08-07-2021 End: 02-11-2022 History SDOH Alcohol Std Drinks 1 [facility] Start: 08-01-2020 History SDOH Alcohol Comment occasional [facility] Start: 08-07-2021 End: 05-13-2022 History SDOH Social Connections Phone 5 [facility] Start: 08-07-2021 End: 05-13-2022 History SDOH Social Connections Get Together 98 [facility] Start: 08-07-2021 History SDOH Social Connections Living 7 [facility] Start: 08-07-2021 End: 05-13-2022 History SDOH Physical Activity MPS 3 [facility] Start: 1985 Sex Assigned At Not on file [facility] Start: 07-27-2021 End: 02-19-2022 Exposure to SARS-CoV-2 (event) Not sure [facility] Start: 11-16-2021 End: 11-26-2021 Exposure to SARS-CoV-2 (event) Unable to assess [facility] Start: 05-13-2022 History SDOH Physica l Activity MPS 13 [facility] Start: 05-12-2022 End: 09-10-2022 Social connection and isolation panel [facility] In a typical week, h ow many times do you talk on the telephone with family, friends, or neighbors? Patient refused [facility] Are you now , , , , never or living with a partner? Refused [facility] Do you feel stress - tense, restless, nervous, or anxious, or unable to sleep at night because your mind is troubled all the time - these days [OSQ] Very much [facility] (I/We) worried curt er (my/our) food would run out before (I/we) got money to buy more. DK or Refused [facility] The food that (I/we) bought just didn't last, and (I/we) didn't have money to get more. Sometimes true [facility] Start: 11-23-2018 Tobacco smoking status Heavy t obacco smoker (finding) [facility] Sex Assigned At Female [facility] Functional Status Date Assessment Result Facility 01-10-2023 Functional Status Standard Safet y ID band on, Call device within reach, Bed in low position, Wheels locked, Upper/Half-Length side-rails up, Bedside Cart Locked, Safety level maintained [place] Mental Status Date Assessment Result Facility 01-10-2023 Mental Status Orientation Oriented x 4 [facility] Clinical Notes 08-06-2021 to 07-22-2023 Telephone Encounter - Candice Dale LPN - 07/22/2023 11:14 AM EDTTelephone Encounter - Anamika Clarke RN - 06/25/2023 12:14 PM Stefani Bartlett APRN.BLANCHE - 03/16/2023 1:42 PM EST Note Date & Type Note Facility 07-22-2023 Miscellaneous Notes Patient has been identified by name and date of : Yes Patient phones for refill(s): Requested Prescriptions Pending Prescriptions Disp Refills lisinopril (ZESTRIL) 10 mg tablet 90 tablet 0 Sig: Take 1 tablet by mouth once daily. Date of last office visit in primary care: 04/07/2023 Date of next office visit in primary care: 08/25/2023 Please advise. Thank you. Candice Dale LPN. documented in this encounter [facility] 06-25-2023 Miscellaneous Notes Pt called and is notified of providers results and instructions. Pt voices understanding. Anamika Clarke, RN Left message to return call. Please call patient and let her know her cholesterol is moderately elevated- needs to work on low saturated diet and aim for at least 150 minutes of exercise per week. The rest of her blood work is normal. Keep appointment as scheduled for physical. Michelle Grimm APRN.CNP documented in this encounter [facility] 06-24-2023 Note HNO ID: [id number] Author: TRINITY HERRERA APRN.CNP Service: ? Author Type: Nurse Practitioner Type: Progress Notes Filed: 06/24/2023 08:12 Note Text: PSYC FOLLOW UP - PSYCHIATRIC PROGRESS NOTE CC: Follow-up for medication management I have communicated my name and active licensure. The patient's identity and physical location were verified at the time of this visit. Either the patient or their legal career services representative has been informed of the risks and benefits of -- and alternatives to -- treatment through a remote evaluation and consents to proceed with the evaluation remotely. HPI: Irvin Tan is a 38 year old female presenting today for follow-up for medication management. Patient was last seen on 12/26/22 for Bipolar II Disorder/FREDY/PTSD, where she was encouraged to begin therapy. Continued medications unchanged. Today, patient reports things have been stressful. My relationship isn't working out, so I need to find a place for me and my kids. They have been together for 8 years. Outside of this, she is doing pretty good. Continues on psychiatric medications as prescribed- denies side effects or concerns. Not currently in therapy- encouraged to help her process life change with relationship ending. 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 Anxiety rated as 0/10, with 10 being the worst. Denies recent panic attacks. Denies passive wishes. Denies suicidal ideation, plan, or intent. Denies homicidal ideation, plan, or intent. Denies delusions, hallucinations, or manic/hypomanic behaviors. Reports nicotine use- 1 ppd. Reports marijuana use almost daily. Denies other substance use/abuse. Risks and benefits of the medication, including any black box warnings, were discussed with the patient. Interval Progress: Slightly worse PATIENT DATA: Generalized Anxiety Disorder Scale (FREDY-7) FREDY - 7 SCORES 12/26/2022 02/17/2023 06/24/2023 FREDY-7 Score 8 18 10 (0-4) minimal anxiety, (5-9) mild anxiety, (10-14) moderate anxiety, (15-21) severe anxiety Patient Health Questionnaire (PHQ-9) PHQ-9 12/26/2022 02/17/2023 06/24/2023 Score 24 17 14 (0-4) minimal depression, (5-9) mild depression, (10-14) moderate depression, (15-19) moderately severe depression, (20-27) severe depression PROMIS Global Health PROMIS-10 Flowsheet Row [facility] from 06/24/2023 in Psychiatry [facility] from 12/26/2022 in Psychiatry Global Physical Health T Score 34.9 37.4 Global Mental Health T Score 41.1 31.3 0-10 Standard Pain Scale 5 5 PAST MEDICAL HISTORY Diagnosis Date Anxiety and depression Bipolar affective (HCC) Crohn's disease (HCC) Diverticulosis Hemorrhoid PAST SURGICAL HISTORY Procedure Laterality Date DILATION AND CURETTAGE LIGATE FALLOPIAN TUBE REMOVAL GALLBLADDER 10/26/2022 At [facility] WRIST LEFT OP SURGERY Right artery repair after cutting herself Current Outpatient Medications Medication Sig lisinopril (ZESTRIL) 10 mg tablet Take 1 tablet by mouth once daily. lisinopril (ZESTRIL) 20 mg tablet Take 1 tablet by mouth once daily. albuterol HFA (PROVENTIL HFA, VENTOLIN HFA) 90 mcg/actuation inhaler Inhale 2 Puffs as instructed every 6 hours as needed for wheezing/shortness of breath. hydrOXYzine pamoate (VISTARIL) 25 mg capsule Take 1 capsule by mouth two times a day as needed for anxiety. omeprazole (PRILOSEC) 20 mg capsule Take 1 capsule by mouth two times a day. 1/2 hr before meal. lamoTRIgine (LAMICTAL) 200 mg tablet take 1 tablet by mouth once daily ondansetron orally disintegrating (ZOFRAN ODT) 4 mg disintegrating tablet dissolve 1 tablet ON TONGUE every 8 hours ustekinumab (STELARA) 90 mg/mL injection Take one dose subcutaneously monthly escitalopram oxalate (LEXAPRO) 20 mg tablet Take 1 tablet by mouth once daily. hyoscyamine (LEVSIN) 0.125 mg tablet take 1 tablet by mouth twice a day for DYSPEPSIA albuterol HFA (PROVENTIL HFA, VENTOLIN HFA) 90 mcg/actuation inhaler Inhale 2 Puffs as instructed every 6 hours as needed for wheezing/shortness of breath. No current facility-administered medications for this visit. ROS: GENERAL: Negative for malaise, significant weight loss and fever. HEENT: No changes in hearing or vision, no nose bleeds or other nasal problems. RESPIRATORY: Negative for cough, wheezing and shortness of breath. CARDIOVASCULAR: Negative for chest pain, leg swelling and palpitations. GI: Negative for abdominal discomfort, blood in stools or black stools. : Negative for dysuria, frequency and incontinence. MUSCULOSKELETAL: Negative for joint pain or swell (more content not included)... [facility] 06-23-2023 Miscellaneous Notes Patient has been identified by name and date of : Yes, Provider Date Time Patient phones for refill(s): Requested Prescriptions Pending Prescriptions Disp Refills lisinopril (ZESTRIL) 10 mg tablet 90 tablet 1 Sig: Take 1 tablet by mouth once daily. lisinopril (ZESTRIL) 20 mg tablet 90 tablet 1 Sig: Take 1 tablet by mouth once daily. Patient calling back for refills of both Lisinopril 10 mg and 20 mg tablets. The 20 mg dose of Lisinopril had no refills so she has been using three 10 mg daily and has now run out of the 10 mg dose. Both pended. Chris Schwartz Date of last office visit in primary care: 04/07/2023 Date of next office visit in primary care: 07/22/2023 Please advise. Thank you. Charlotte Espinoza RN. documented in this encounter [facility] 06-23-2023 Miscellaneous Notes Lisinopril was refilled 06/04/23 #90 with 1 refill to Chris Schwartz. Pt notified to check with pharmacy for refills. Audrey Song Ma documented in this encounter [facility] 06-16-2023 Miscellaneous Notes Patient has been identified by name and date of : Yes Patient phones for refill(s): Requested Prescriptions Pending Prescriptions Disp Refills albuterol HFA (PROVENTIL HFA, VENTOLIN HFA) 90 mcg/actuation inhaler 8.5 g 1 Sig: Inhale 2 Puffs as instructed every 6 hours as needed for wheezing/shortness of breath. Date of last office visit in primary care: 06/03/2023 Date of next office visit in primary care: 07/22/2023 Please advise. Thank you. Candice Dale LPN. documented in this encounter [facility] 06-03-2023 Note HNO ID: [id number] Author: OUMAR DE LEON RT(R) Service: Radiology Author Type: Technologist Type: Progress Notes Filed: 06/03/2023 18:11 Note Text: Radiology Service Progress Note PATIENT NAME: Irvin Tan DATE OF SERVICE: June 03, 2023 TIME: 6:02 PM PATIENT IDENTITY VERIFICATION COMPLETED USING TWO (2) IDENTIFIERS: Name and Date of confirmed by patient verbally. FALL SCREENING: Has the patient had 2 falls in the last year or 1 fall with injury or currently using an Ambulatory Assistive Device (Walker, Cane, Wheelchair, Crutches, etc.)? No PATIENT GENDER DATA: Female. status: : No status: NO. PATIENT RELEVANT IMPLANT DATA REVIEWED: Yes RADIOLOGY DEPARTMENT: General X-ray: Exam(s) Completed: Spine X-Ray(s): Thoracic and Lumbar AP / LAT / L5-S1 PERIPHERAL IV DATA: Not applicable SIGNED BY: RT Patrice(R) June 03, 2023 6:02 PM [facility] 06-03-2023 Note HNO ID: [id number] Author: AALIYAH DANIELS APRN.PLACEMENT OFFICER Service: ? Author Type: Nurse Practitioner Type: Progress Notes Filed: 06/03/2023 18:47 Note Text: This note was created using [employer]. Ancelmo Tan is a 38 year old female. Patient presents with mid to lower back pain that started this morning after slipping and falling on ice. Patient denies any numbness or tingling her legs, denies loss of bowel and bladder. Review of Systems Musculoskeletal: Positive for back pain. Objective BP 110/70 Pulse 82 Temp 36.2 ?C (97.1 ?F) (Tympanic) Resp 18 Wt 91.9 kg (202 lb 9.6 oz) LMP 02/18/2023 SpO2 97% BMI 34.78 kg/m? Physical Exam Musculoskeletal: Arms: Thoracic back: Signs of trauma and bony tenderness present. Lumbar back: Signs of trauma and bony tenderness present. Back: Comments: Patient has pain in area noted above. No deformity or step off noted PAST MEDICAL HISTORY Diagnosis Date Anxiety and depression Bipolar affective (HCC) Crohn's disease (HCC) Diverticulosis Hemorrhoid PAST SURGICAL HISTORY Procedure Laterality Date DILATION AND CURETTAGE LIGATE FALLOPIAN TUBE REMOVAL GALLBLADDER 10/26/2022 At [facility] WRIST LEFT OP SURGERY Right artery repair after cutting herself ALLERGIES Amoxicillin and Tramadol MEDICATIONS hydrOXYzine pamoate (VISTARIL) 25 mg capsule Take 1 capsule by mouth two times a day as needed for anxiety. lisinopril (ZESTRIL) 10 mg tablet Take 1 tablet by mouth once daily. omeprazole (PRILOSEC) 20 mg capsule Take 1 capsule by mouth two times a day. 1/2 hr before meal. lamoTRIgine (LAMICTAL) 200 mg tablet take 1 tablet by mouth once daily ondansetron orally disintegrating (ZOFRAN ODT) 4 mg disintegrating tablet dissolve 1 tablet ON TONGUE every 8 hours ustekinumab (STELARA) 90 mg/mL injection Take one dose subcutaneously monthly escitalopram oxalate (LEXAPRO) 20 mg tablet Take 1 tablet by mouth once daily. lisinopril (ZESTRIL) 20 mg tablet Take 1 tablet by mouth once daily. albuterol HFA (PROVENTIL HFA, VENTOLIN HFA) 90 mcg/actuation inhaler Inhale 2 Puffs as instructed every 6 hours as needed for wheezing/shortness of breath. albuterol HFA (PROVENTIL HFA, VENTOLIN HFA) 90 mcg/actuation inhaler Inhale 2 Puffs as instructed every 6 hours as needed for wheezing/shortness of breath. hyoscyamine (LEVSIN) 0.125 mg tablet take 1 tablet by mouth twice a day for DYSPEPSIA FAMILY HISTORY Problem Relation Age of Onset Depression Mother Bipolar disorder Mother No Known Problems Father other (CABG) Maternal Grandfather No Known Problems Paternal Grandmother No Known Problems Paternal Grandfather Social History Tobacco Use Smoking status: Every Day Packs/day: 1.00 Years: 13.00 Additional pack years: 0.00 Total pack years: 13.00 Types: Cigarettes Smokeless tobacco: Never Vaping Use Vaping Use: Never used Substance Use Topics Alcohol use: Yes Comment: occasional Drug use: Never ASSESSMENT/PLAN: 1. Pain - ICD9: 780.96, ICD10: R52 - Supportive care with OTC analgesics as needed - Patient educated on use of steroids, muscle relaxers - XR LUMBAR GENERAL 3V AP/LAT/L5-S1 - XR THORACIC LIMITED 2V AP/LAT - PREDNISONE 10 MG TABLET - CYCLOBENZAPRINE 10 MG TABLET Will not drive or operate heavy machinery on muscle relaxer. Prescription instructions reviewed with patient. Potential red flag symptoms discussed with the patient. Reviewed appropriate action plan to take if red flag symptoms occur. Patient agreeable to treatment plan. Lillian Albert Supervising provider was present and guided the care of the patient for the entire session on this date. All documentation was reviewed and agreed upon. Aaliyah Daniels APRN.[facility] 05-09-2023 Note HNO ID: [id number] Author: Regla Herrera RT(R) Service: ? Author Type: Technologist Type: Progress Notes Filed: 05/09/2023 1:57 PM Note Text: Radiology Service Progress Note DATE OF SERVICE: May 09, 2023 TIME: 1:56 PM PATIENT IDENTITY VERIFICATION COMPLETED USING TWO (2) STANDARD IDENTIFIERS: Name and Date of confirmed by patient verbally. FALL SCREENING: Has the patient had 2 falls in the last year or 1 fall with injury or currently using an Ambulatory Assistive Device (Walker, Cane, Wheelchair, Crutches, etc.)? No PATIENT GENDER DATA: Female. status: : No status: NO. PATIENT RELEVANT IMPLANT DATA REVIEWED: Yes ALLERGIES: Reviewed and unchanged CONTRAST ALLERGY: NO. EXAM: MRI - CONTRAST TYPE: GROUP II PERIPHERAL IV DATA: Ambulatory: A peripheral IV was started in the Left antecubital site with a Angio cath: 22 gauge. RADIOLOGY DEPARTMENT: MR; Exam(s) Completed: Body: Adrenal SIGNATURE: RT Darby(R) PATIENT NAME: Irvin Tan DATE: May 09, 2023 TIME: 1:56 PM [facility] 05-08-2023 Note HNO ID: [id number] Author: Trinity Herrera APRN.PLACEMENT OFFICER Service: ? Author Type: Nurse Practitioner Type: Progress Notes Filed: 05/08/2023 11:29 AM Note Text: Appointment cancelled < 24 hours [facility] 04-25-2023 Miscellaneous Notes Asked pt to clarify which medication she is referring too. Sandie Swartz Ma documented in this encounter [facility] 04-23-2023 Miscellaneous Notes Patient last visit 04/07/23 Follow up appointment scheduled 05/19/23 Louisa Wallace Ma documented in this encounter [facility] 04-22-2023 Miscellaneous Notes Spoke with pt and information listed below given. Pt verbalizes understanding. Vianney Sharp LPN Message left for patient to call office back for update. Candice Dale LPN Please call patient and let her know I completed Peer to peer and they have approved the MRI. She may proceed as scheduled. Michelle Grimm APRN.BLANCHE Authorization number [id number] documented in this encounter [facility] 04-22-2023 Miscellaneous Notes See other TE 04/21/2023. Candice Dale LPN Patient telephoned, message left to call office back for update. Candice Dale LPN Insurance has denied her MRI. Please let patient know she will need to cancel testing. Michelle Grimm APRN.BLANCHE documented in this encounter [facility] 04-07-2023 Note HNO ID: [id number] Author: Michelle Grimm APRN.BLANCHE Service: ? Author Type: Nurse Practitioner Type: Progress Notes Filed: 04/07/2023 11:12 AM Note Text: 04/07/2023 Patient presents with: Follow Up: Requesting refills on Zofran SUBJECTIVE: This is a 38 year old that is here today for Above Complaints.. Reports she has had constant nausea since her gallbladder surgery in October. Has been taking Zofran daily. Does follow with [facility] gastroenterology and has upcoming appointment. Has a hx of Chrons and takes levasin and Stelara injection monthly. Admits to heartburn symptoms every other day and takes Pepcid as prescribed. Denies weight loss, abdominal pain, vomiting, diarrhea, constipation, melana or hematochezia PAST MEDICAL HISTORY Diagnosis Date Anxiety and depression Bipolar affective (HCC) Crohn's disease (HCC) Diverticulosis Hemorrhoid ALLERGIES Amoxicillin and Tramadol MEDICATIONS Current Outpatient Medications Medication Sig escitalopram oxalate (LEXAPRO) 20 mg tablet Take 1 tablet by mouth once daily. hydrOXYzine pamoate (VISTARIL) 25 mg capsule Take 1 capsule by mouth two times a day as needed for anxiety. ondansetron orally disintegrating (ZOFRAN ODT) 4 mg disintegrating tablet dissolve 1 tablet ON TONGUE every 8 hours lisinopril (ZESTRIL) 20 mg tablet Take 1 tablet by mouth once daily. lamoTRIgine (LAMICTAL) 200 mg tablet Take 1 tablet by mouth once daily. albuterol HFA (PROVENTIL HFA, VENTOLIN HFA) 90 mcg/actuation inhaler Inhale 2 Puffs as instructed every 6 hours as needed for wheezing/shortness of breath. lisinopril (ZESTRIL) 10 mg tablet Take 1 tablet by mouth once daily. albuterol HFA (PROVENTIL HFA, VENTOLIN HFA) 90 mcg/actuation inhaler Inhale 2 Puffs as instructed every 6 hours as needed for wheezing/shortness of breath. promethazine (PHENERGAN) 12.5 mg tablet Take 1 tablet by mouth every 6 hours as needed for nausea/vomiting. hyoscyamine (LEVSIN) 0.125 mg tablet take 1 tablet by mouth twice a day for DYSPEPSIA No current facility-administered medications for this visit. Medications and allergies reviewed by this provider. SOCIAL HISTORY Social History Tobacco Use Smoking status: Every Day Packs/day: 1.00 Years: 13.00 Additional pack years: 0.00 Total pack years: 13.00 Types: Cigarettes Smokeless tobacco: Never Vaping Use Vaping Use: Never used Substance Use Topics Alcohol use: Yes Comment: occasional Drug use: Never REVIEW OF SYSTEMS All other reviewed and negative other than HPI. OBJECTIVE: BP 128/82 Pulse 82 Resp 16 Wt 88.6 kg (195 lb 6.4 oz) LMP 02/18/2023 SpO2 98% BMI 33.54 kg/m? . Vital signs reviewed by this provider. APPEARANCE Well appearing, alert, in no acute distress, well-hydrated, well nourished. EYES conjunctiva and sclera normal. HEART RRR with normal S1 and S2, no murmurs, no gallops, no JVD appreciated LUNG clear to auscultation. No wheezes, rhonchi or rales ABDOMEN bowel sounds normoactive, no bruits, soft, non-tender, non-distended. No rebound tenderness or guarding EXTREMITIES Extremities normal, No deformities, No skin discoloration, and No edema SKIN Skin color, texture, turgor normal, no suspicious rashes or lesions Covid-19 Vaccine(1) Never done Meningococcal B Vaccine: Consider Based On Risk(1 of 4 - Increased Risk) Never done MMR Vaccine(1 of 2 - Risk 2-dose series) Never done DTaP,Tdap,Td Vaccine(1 - Tdap) Never done Hepatitis A Vaccine(1 of 2 - Risk 2-dose series) Never done Pneumococcal Vaccine(2 - PCV) due on 08/01/2021 BP Controlled (<130/80) due on 02/11/2023 Annual PCP Team Chronic Disease Visit due on 04/07/2024 Pap Testing due on 09/19/2025 HPV Testing due on 09/19/2025 Hepatitis B Vaccine(1 of 3 - Risk 3-dose series) due on 2044 Influenza Vaccine Completed Depression Assessment Completed Hepatitis C Screening Completed HIV Screening Completed HPV Vaccine Aged Out ASSESSMENT/PLAN: 1. Chronic nausea - ICD9: 787.02, ICD10: R11.0 (primary diagnosis) - will order Zofran to get her to her GI appointment after this she will need to have GI order this if needed - will start omeprazole since she has heartburn symptoms every other day - OMEPRAZOLE 20 MG CAPSULE,DELAYED RELEASE - ONDANSETRON 4 MG DISINTEGRATING TABLET - follow-up next month for physical 2. Gastroesophageal reflux disease without esophagitis - ICD9: 530.81, ICD10: K21.9 - Discussed lifestyle modifications including losing weight, limiting caffeine, no meals three hours before sleep, and head of bed elevation - OMEPRAZOLE 20 MG CAPSULE,DELAYED RELEASE - ONDANSETRON 4 MG DISINTEGRATING TABLET - CBC - plan as in #1 3. Encounter for immunization - ICD9: V03.89, ICD10: Z23 - INFLUENZA VACCINE, AGE 6 MO - 64 YR, QUADRIVALENT (AFLURIA, FLULAVAL, FLUZONE) Michelle Podlogar, SERVICE CAR OPERATOR.PLACEMENT OFFICER Prescription instructions reviewed with patient as applicable. Patient advi (more content not included)... [facility] 04-01-2023 Miscellaneous Notes Called pt and notified unable to give refills on her Zofran until she comes in to be seen. F/U appt made with Michelle Grimm for 04/07 at 0800. Patient is overdue for appointment. Please assist in scheduling. Michelle Grimm APRN.BLANCHE ANICETO-06/17/22 Labs-06/30/22 NOV-none Camille Villafuerte LPN documented in this encounter [facility] 03-16-2023 Note HNO ID: [id number] Author: Stefani Gaspar APRN.BLANCHE Service: ? Author Type: Nurse Practitioner Type: Progress Notes Filed: 03/16/2023 2:04 PM Note Text: This note was created using [employer]. Ancelmo Tan is a 38 year old female. 38 year old female with PMH HTN and Crohns presents for illness. Acute onset 2 to 3 days ago + cough +nasal congestion +ear pain bilateral +sinus pressure Denies SOB or dyspnea Denies abdominal pain Denies N/V/D +tobacco usage Has used OTC medicines without relief +tobacco usage The history is provided by the patient. No russian language professor was used. URI She complains of cough. There is no hoarse voice, shortness of breath, sputum production or wheezing. This is a new problem. Associated symptoms include ear congestion, ear pain, headaches, nasal congestion, postnasal drip, rhinorrhea and sneezing. Pertinent negatives include no appetite change, chest pain, dyspnea on exertion, fever, heartburn, malaise/fatigue, myalgias, orthopnea, PND, sweats, trouble swallowing or weight loss. Her symptoms are aggravated by nothing. Her symptoms are alleviated by nothing. She reports no improvement on treatment. Risk factors for lung disease include smoking/tobacco exposure. There is no history of asthma, bronchiectasis, bronchitis, COPD, emphysema or pneumonia. PAST MEDICAL HISTORY Diagnosis Date Anxiety and depression Bipolar affective (HCC) Crohn's disease (HCC) Diverticulosis Hemorrhoid PAST SURGICAL HISTORY Procedure Laterality Date DILATION AND CURETTAGE LIGATE FALLOPIAN TUBE WRIST LEFT OP SURGERY Right artery repair after cutting herself ALLERGIES Amoxicillin and Tramadol MEDICATIONS ondansetron orally disintegrating (ZOFRAN ODT) 4 mg disintegrating tablet dissolve 1 tablet ON TONGUE every 8 hours lisinopril (ZESTRIL) 20 mg tablet Take 1 tablet by mouth once daily. lamoTRIgine (LAMICTAL) 200 mg tablet Take 1 tablet by mouth once daily. escitalopram oxalate (LEXAPRO) 20 mg tablet Take 1 tablet by mouth once daily. hydrOXYzine pamoate (VISTARIL) 25 mg capsule Take 1 capsule by mouth twice daily as needed for anxiety. albuterol HFA (PROVENTIL HFA, VENTOLIN HFA) 90 mcg/actuation inhaler Inhale 2 Puffs as instructed every 6 hours as needed for wheezing/shortness of breath. lisinopril (ZESTRIL) 10 mg tablet Take 1 tablet by mouth once daily. dicyclomine (BENTYL) 20 mg tablet Take 1 tablet by mouth three times daily. albuterol HFA (PROVENTIL HFA, VENTOLIN HFA) 90 mcg/actuation inhaler Inhale 2 Puffs as instructed every 6 hours as needed for wheezing/shortness of breath. promethazine (PHENERGAN) 12.5 mg tablet Take 1 tablet by mouth every 6 hours as needed for nausea/vomiting. azithromycin (ZITHROMAX) 250 mg tablet Take 2 tablets by mouth once daily for 1 day, THEN 1 tablet once daily for 4 days. hyoscyamine (LEVSIN) 0.125 mg tablet take 1 tablet by mouth twice a day for DYSPEPSIA FAMILY HISTORY Problem Relation Age of Onset Depression Mother Bipolar disorder Mother No Known Problems Father other (CABG) Maternal Grandfather No Known Problems Paternal Grandmother No Known Problems Paternal Grandfather Social History Tobacco Use Smoking status: Every Day Packs/day: 1.00 Years: 13.00 Additional pack years: 0.00 Total pack years: 13.00 Types: Cigarettes Smokeless tobacco: Never Vaping Use Vaping Use: Never used Substance Use Topics Alcohol use: Yes Comment: occasional Drug use: Never Review of Systems Constitutional: Positive for chills and fatigue. Negative for appetite change, fever, malaise/fatigue and weight loss. HENT: Positive for congestion, ear pain, postnasal drip, rhinorrhea, sinus pressure, sinus pain and sneezing. Negative for hoarse voice and trouble swallowing. Eyes: Negative for pain, discharge, redness and itching. Respiratory: Positive for cough. Negative for apnea, sputum production, choking, chest tightness, shortness of breath and wheezing. Cardiovascular: Negative for chest pain, dyspnea on exertion and PND. Gastrointestinal: Negative for abdominal pain, diarrhea, heartburn, nausea and vomiting. Musculoskeletal: Negative for back pain and myalgias. Skin: Negative for color change, pallor, rash and wound. Allergic/Immunologic: Negative for environmental allergies, food allergies and immunocompromised state. Neurological: Positive for headaches. Negative for dizziness and facial asymmetry. Hematological: Negative for adenopathy. Does not bruise/bleed easily. Psychiatric/Behavioral: Negative for agitation and behavioral problems. Objective BP 118/85 Pulse 82 Temp 36.5 ?C (97.7 ?F) Resp 18 Wt 87.5 kg (193 lb) LMP 02/18/2023 SpO2 100% BMI 33.13 kg/m? Physical Exam Vitals and nursing note reviewed. Constitutional: General: She is not in acute distress. Appearance: Normal appearance. She is normal weight. She is (more content not included)... [facility] 03-16-2023 History of Presen t illness Narrative This note was created using [employer]. Subjective Irvin Tan is a 38 year old female. 38 year old female with PMH HTN and Crohns presents for illness. Acute onset 2 to 3 days ago + cough +nasal congestion +ear pain bilateral +sinus pressure Denies SOB or dyspnea Denies abdominal pain Denies N/V/D +tobacco usage Has used OTC medicines without relief +tobacco usage The history is provided by the patient. No russian language professor was used. URI She complains of cough. There is no hoarse voice, shortness of breath, sputum production or wheezing. This is a new problem. Associated symptoms include ear congestion, ear pain, headaches, nasal congestion, postnasal drip, rhinorrhea and sneezing. Pertinent negatives include no appetite change, chest pain, dyspnea on exertion, fever, heartburn, malaise/fatigue, myalgias, orthopnea, PND, sweats, trouble swallowing or weight loss. Her symptoms are aggravated by nothing. Her symptoms are alleviated by nothing. She reports no improvement on treatment. Risk factors for lung disease include smoking/tobacco exposure. There is no history of asthma, bronchiectasis, bronchitis, COPD, emphysema or pneumonia. PAST MEDICAL HISTORY Diagnosis Date Anxiety and depression Bipolar affective (HCC) Crohn's disease (HCC) Diverticulosis Hemorrhoid PAST SURGICAL HISTORY Procedure Laterality Date DILATION & CURETTAGE LIGATE FALLOPIAN TUBE WRIST LEFT OP SURGERY Right artery repair after cutting herself ALLERGIES Amoxicillin and Tramadol MEDICATIONS ondansetron orally disintegrating (ZOFRAN ODT) 4 mg disintegrating tablet dissolve 1 tablet ON TONGUE every 8 hours lisinopril (ZESTRIL) 20 mg tablet Take 1 tablet by mouth once daily. lamoTRIgine (LAMICTAL) 200 mg tablet Take 1 tablet by mouth once daily. escitalopram oxalate (LEXAPRO) 20 mg tablet Take 1 tablet by mouth once daily. hydrOXYzine pamoate (VISTARIL) 25 mg capsule Take 1 capsule by mouth twice daily as needed for anxiety. albuterol HFA (PROVENTIL HFA, VENTOLIN HFA) 90 mcg/actuation inhaler Inhale 2 Puffs as instructed every 6 hours as needed for wheezing/shortness of breath. lisinopril (ZESTRIL) 10 mg tablet Take 1 tablet by mouth once daily. dicyclomine (BENTYL) 20 mg tablet Take 1 tablet by mouth three times daily. albuterol HFA (PROVENTIL HFA, VENTOLIN HFA) 90 mcg/actuation inhaler Inhale 2 Puffs as instructed every 6 hours as needed for wheezing/shortness of breath. promethazine (PHENERGAN) 12.5 mg tablet Take 1 tablet by mouth every 6 hours as needed for nausea/vomiting. azithromycin (ZITHROMAX) 250 mg tablet Take 2 tablets by mouth once daily for 1 day, THEN 1 tablet once daily for 4 days. hyoscyamine (LEVSIN) 0.125 mg tablet take 1 tablet by mouth twice a day for DYSPEPSIA FAMILY HISTORY Problem Relation Age of Onset Depression Mother Bipolar disorder Mother No Known Problems Father other (CABG) Maternal Grandfather No Known Problems Paternal Grandmother No Known Problems Paternal Grandfather Social History Tobacco Use Smoking status: Every Day Packs/day: 1.00 Years: 13.00 Additional pack years: 0.00 Total pack years: 13.00 Types: Cigarettes Smokeless tobacco: Never Vaping Use Vaping Use: Never used Substance Use Topics Alcohol use: Yes Comment: occasional Drug use: Never Review of Systems Constitutional: Positive for chills and fatigue. Negative for appetite change, fever, malaise/fatigue and weight loss. HENT: Positive for congestion, ear pain, postnasal drip, rhinorrhea, sinus pressure, sinus pain and sneezing. Negative for hoarse voice and trouble swallowing. Eyes: Negative for pain, discharge, redness and itching. Respiratory: Positive for cough. Negative for apnea, sputum production, choking, chest tightness, shortness of breath and wheezing. Cardiovascular: Negative for chest pain, dyspnea on exertion and PND. Gastrointestinal: Negative for abdominal pain, diarrhea, heartburn, nausea and vomiting. Musculoskeletal: Negative for back pain and myalgias. Skin: Negative for color change, pallor, rash and wound. Allergic/Immunologic: Negative for environmental allergies, food allergies and immunocompromised state. Neurological: Positive for headaches. Negative for dizziness and facial asymmetry. Hematological: Negative for adenopathy. Does not bruise/bleed easily. Psychiatric/Behavioral: Negative for agitation and behavioral problems. Objective BP 118/85 Pulse 82 Temp 36.5 C (97.7 F) Resp 18 Wt 87.5 kg (193 lb) LMP 02/18/2023 SpO2 100% BMI 33.13 kg/m Physical Exam Vitals and nursing note reviewed. Constitutional: General: She is not in acute distress. Appearance: Normal appearance. She is normal weight. She is not ill-appearing, toxic-appearing or diaphoretic. HENT: Head: Normocephalic and atraumatic. Comments: +frontal sinus pressure +maxillary sinus pressure Right Ear: Ear canal and external ear normal. Left Ear: Ear canal and external ear normal. Ears: Comments: Right TM erythematous and bulging Nose: Nose normal. No congestion or rhinorrhea. Mouth/Throat: Mouth: Mucous membranes are moist. Pharynx: No oropharyngeal exudate or posterior oropharyngeal erythema. Eyes: General: Right eye: No discharge. Left eye: No discharge. Extraocular Movements: Extraocular movements intact. Conjunctiva/sclera: Conjunctivae normal. Pupils: Pupils are equal, round, and reactive to light. Cardiovascular: Rate and Rhythm: Normal rate and regular rhythm. Pulses: Normal pulses. Heart sounds: Normal heart sounds. No murmur heard. No friction rub. Pulmonary: Effort: Pulmonary effort is normal. No respiratory distress. Breath sounds: Normal breath sounds. No stridor. No wheezing, rhonchi or rales. Chest: Chest wall: No tenderness. Abdominal: General: Abdomen is flat. There is no distension. Palpations: Abdomen is soft. There is no mass. Tenderness: There is no abdominal tenderness. There is no right CVA tenderness, left CVA tenderness, guarding or rebound. Hernia: No hernia is present. Musculoskeletal: General: No swelling, tenderness, deformity or signs of injury. Normal range of motion. Cervical back: Normal range of motion and neck supple. No rigidity. Right lower leg: No edema. Left lower leg: No edema. Lymphadenopathy: Cervical: Cervical adenopathy present. Skin: General: Skin is warm and dry. Capillary Refill: Capillary refill takes less than 2 seconds. Coloration: Skin is not jaundiced or pale. Findings: No bruising, erythema, lesion or rash. Neurological: General: No focal deficit present. Mental Status: She is alert and oriented to person, place, and time. Cranial Nerves: No cranial nerve deficit. Sensory: No sensory deficit. Motor: No weakness. Coordination: Coordination normal. Gait: Gait normal. Psychiatric: Mood and Affect: Mood normal. Behavior: Behavior normal. Thought Content: Thought content normal. Judgment: Judgment normal. Assessment and Plan ASSESSMENT/PLAN: 1. Acute otitis media, right - ICD9: 382.9, ICD10: H66.91 (primary diagnosis) - Will begin treatment with as per antibiotic as written, see orders - The patient should also be given OTC cough and cold meds as needed, warm salt water gargles, throat lozenges and/or OTC throat spray as needed, and nasal saline gtts and suction prn for the first 5-7 days of treatment. - Supportive care with plenty of fluids, rest, and analgesia prn. - Follow up in 3-5 days if symptoms persist or worsen. 2. URI, acute - ICD9: 465.9, ICD10: J06.9 - Symptomatic treatment with prn analgesia - Supportive care with fluids and rest - The patient may also use OTC cough and cold meds as needed, warm salt water gargles, throat lozenges and/or OTC throat spray as needed, and nasal saline gtts and suction prn. - Follow up in 3-5 days if symptoms persist or sooner if worsening of symptoms Stefani Gaspar APRN.PLACEMENT OFFICER documented in this encounter [facility] 02-18-2023 Note HNO ID: [id number] Author: Trinity Herrera APRN.BLANCHE Service: ? Author Type: Nurse Practitioner Type: Progress Notes Filed: 02/18/2023 2:48 PM Note Text: No show [facility] 02-14-2023 Miscellaneous Notes Patient has been identified by name and date of : Yes Requested Prescriptions Pending Prescriptions Disp Refills lisinopril (ZESTRIL) 20 mg tablet 90 tablet 1 Sig: Take 1 tablet by mouth once daily. RX INSTRUCTIONS: Patient aware RX will be sent to pharmacy. No need to notify patient. ANICETO 06/17/22 No follow up scheduled. Daisy Bolton LPN documented in this encounter [facility] 01-10-2023 Hospital Discharg e instructions Patient Education 01/10/2023 15:26:35 Ovarian Cyst Ovarian Cysts The ovaries are two small organs located on each side of a woman s uterus (womb). They are part of the female reproductive system. Ovarian cysts are sacs filled with fluid or tissue that form on or inside the ovaries. Ovarian cysts are common in women, especially during childbearing years. There are different types of cysts. Most are harmless (benign) and go away on their own. They often cause no symptoms. If symptoms do occur, they can include mild pain or pressure in the lower belly (abdomen). Cysts that are large or break (rupture) may cause more severe pain and symptoms. In these cases, you may need hospital care or treatment such as surgery. You may need more extensive treatment if a cyst causes an ovary to twist (called torsion) or if your doctor suspects your cyst is cancerous. Keep in mind that most cysts are not cancerous, however. General care To help relieve pain, your healthcare provider may recommend using [id number] pain medicine. If needed, your provide may prescribe stronger pain medicine. Depending on the type of cyst you have, your healthcare provider may advise taking control pills. These help shrink cysts in certain cases. They may also help prevent new cysts from forming. Be sure to take these medicines as directed if they are prescribed. Your healthcare provider may advise you to watch your symptoms over time to see if they go away or worsen. Regular ultrasound tests may also be advised. These can help check if a cyst goes away or grows in size. Follow-up care Follow up with your healthcare provider, or as advised. When to seek medical advice Call your healthcare provider right away if any of these occur: Pain worsens or fails to get better with home treatment Fever of 100.4 F (38 C) or higher (or other fever amount directed by your healthcare provider) Nausea and vomiting Weakness, dizziness, or fainting Abnormal vaginal bleeding [phone] [employer]. [address] [place] [address]. All rights reserved. This information is not intended as a substitute for professional medical care. Always follow your healthcare professional's instructions. Follow Up Care 01/10/2023 14:12:22 With:[facility] Address: [address] [place] [address]- When:2-4 days [place] 01-10-2023 Emergency department Discharge summary Discharge Instructions Thank you for allowing [facility] to assist you with your healthcare needs. The following is important discharge information regarding your hospital visit. Diagnosis from Today's Visit Abdominal pain Pelvic pain What to Do Next Instructions from Your Care Team No qualifying data available. Post Acute Orders No qualifying data available. You Need to Schedule the Following Appointments Follow Up with [facility] When Within 2-4 days Where: [address] [place] [address]- Allergies amoxicillin traMADol Medications Please ask your primary doctor or pharmacist before taking any other medication not listed, including over the counter drugs, herbal medications, vitamins and or supplements as they may interact with your home medications. What How Much When Instructions Last Dose New naproxen (naproxen 500 mg oral tablet) 1 tab(s) by mouth Two (2) times a day Duration: 7 Days Printed Prescription Unchanged albuterol (Ventolin HFA MDI (90 mcg/ inh) inhalation aerosol) 2 puff(s) by inhalation Every 6 hours as needed for as needed for wheezing Unchanged dicyclomine (dicyclomine 20 mg oral tablet) 1 tab(s) by mouth Three (3) times a day Unchanged escitalopram (Lexapro 20 mg oral tablet) 1 tab(s) by mouth Once a day Unchanged hydrOXYzine (Vistaril) 25 Milligram by mouth Two (2) times a day Unchanged ibuprofen 200 Milligram by mouth Every 6 hours as needed for as needed for headache Unchanged lamoTRIgine (lamoTRIgine 200 mg oral tablet) 1 tab(s) by mouth Once a day Unchanged lisinopril (lisinopril 10 mg oral tablet) 1 tab(s) by mouth Once a day take one 10mg tablet with one 20mg tablet for 30mg total Unchanged lisinopril (lisinopril 20 mg oral tablet) 1 tab(s) by mouth Every day take one 10mg tablet with one 20mg tablet for 30mg total Unchanged metoclopramide (metoclopramide 10 mg oral tablet) 1 tab(s) by mouth Three (3) times a day as needed for Nausea/Vomiting Unchanged promethazine (promethazine 25 mg oral tablet) 1 tab(s) by mouth Three (3) times a day as needed for as needed for nausea/vomiting Unchanged scopolamine (scopolamine 1 mg/ 72 hr transdermal film, extended release) 1 patch(es) Topical Every 72 hours as needed for as needed for motion sickness Unchanged ustekinumab (Stelara PFS 90 mg/ mL subcutaneous solution) 1 Milliliter Subcutaneous Every 8 weeks Please take this list to your next doctor s visit. Bring all medications you take, including over the counter medications, herbals and other supplements with you to your doctor s visit. Patients and families are reminded to discard old lists and to update any records with all medication providers or retail pharmacies. Education Materials Ovarian Cysts The ovaries are two small organs located on each side of a woman s uterus (womb). They are part of the female reproductive system. Ovarian cysts are sacs filled with fluid or tissue that form on or inside the ovaries. Ovarian cysts are common in women, especially during childbearing years. There are different types of cysts. Most are harmless (benign) and go away on their own. They often cause no symptoms. If symptoms do occur, they can include mild pain or pressure in the lower belly (abdomen). Cysts that are large or break (rupture) may cause more severe pain and symptoms. In these cases, you may need hospital care or treatment such as surgery. You may need more extensive treatment if a cyst causes an ovary to twist (called torsion) or if your doctor suspects your cyst is cancerous. Keep in mind that most cysts are not cancerous, however. General care To help relieve pain, your healthcare provider may recommend using [id number]-fbcpyhg pain medicine. If needed, your provide may prescribe stronger pain medicine. Depending on the type of cyst you have, your healthcare provider may advise taking control pills. These help shrink cysts in certain cases. They may also help prevent new cysts from forming. Be sure to take these medicines as directed if they are prescribed. Your healthcare provider may advise you to watch your symptoms over time to see if they go away or worsen. Regular ultrasound tests may also be advised. These can help check if a cyst goes away or grows in size. Follow-up care Follow up with your healthcare provider, or as advised. When to seek medical advice Call your healthcare provider right away if any of these occur: Pain worsens or fails to get better with home treatment Fever of 100.4 F (38 C) or higher (or other fever amount directed by your healthcare provider) Nausea and vomiting Weakness, dizziness, or fainting Abnormal vaginal bleeding [phone] [employer]. [address] [place] [address], [place] [address]. All rights reserved. This information is not intended as a substitute for professional medical care. Always follow your healthcare professional's instructions. Additional Information VACCINATE! IT SAVES LIVES! Members of the community who have not yet received the COVID-19 vaccine and would like to receive it can visit one of [facility] vaccine clinics. There are many vaccine clinic locations within the [facility]. For locations and available times, please visit [email or web address] It is important to note that some COVID mobile vaccine clinics are held outdoors and may be canceled in rainy or stormy conditions. To learn more about pediatric vaccinations (ages 5-11), we invite you to visit the [facility] webpage. [email or web address] To learn more about the COVID-19 vaccine, we invite you to visit the CDC website for a list of frequently asked questions. https://www.cdc.gov/coronavirus/ 2019-ncov/vaccines/faq.html [facility] Patient Portal Access Instructions: Stay connected with your healthcare team and access your personal medical information anytime with the [facility] Patient Portal. If you would like a full copy of your medical records please contact the [facility] Medical Records Department Friday through Friday between 8a.m. and 4:30p.m. Please follow the directions below to access the portal: 1.Access the email account you provided upon registration to the hospital.2.Look for an invitation email from [facility].3.Open the email and access the invitation link: Accept Invitation to [facility].Fill in the required francois to create your account. Sign into [email or web address] with your username and password that you created in the above steps to stay up to date. You can then view a summary of results, a summary of your visits, and the ability to download your summaries to your computer or send the information securely to a physician. Remember that your healthcare information is confidential, so carefully consider who you will allow to register on the [facility] Patient Portal for access to your information. You can also access the [facility] Patient Portal on the Mobile [employer] preethi. Simply click on Health Records under Health Data and then click on the [facility] logo. HOW TO SAFELY DISPOSE OF PRESCRIPTION MEDICATIONS Please use one of the following methods to safely dispose of your unused medications. 1.Use a drug disposal kit: the drug disposal pouch allows you to safely discard your old and unused drugs. Ask your nurse to give you one when you are discharged.2.Visit a local take-back location: Many local pharmacies and police departments have programs that collect old and unwanted prescription drugs. Call your local pharmacy or go to http://2,10E+07.Information Gateway/3O4Qy2o to find one close to you.3.Make use of household items: Use cat litter or old coffee grounds to dispose medications if other options are not available. Mix your drugs with these household products, seal them in an airtight container and throw it into the garbage. Call [facility]: [phone] to be sure your drugs can be disposed of in this way. Some medicines may require a different approach.4.Never flush your medications down the toilet. IF YOU HAVE BEEN PRESCRIBED AN OPIOIDS FOR PAIN If you have been prescribed an opioid (such as hydrocodone, oxycodone or morphine), it is critical to understand the possible side effects and risks of opioid pain medications. Even when taken as directed, opioids can have several side effects including: Tolerance, meaning you might need to take more of a medication for the same pain relief. Nausea, vomiting and/or constipation. Sleepiness, dizziness, dry mouth, confusion, depression or itching. Physical dependence, meaning you have withdrawal symptoms when a medication is stopped ? this can develop within a few days. KNOW YOUR RESPONSIBILITIES It is important to know exactly how much and how often to take the opioid pain medications you are prescribed. Never take opioids in higher amounts or more often than prescribed. Do not combine opioids with alcohol or other drugs that cause drowsiness, such as benzodiazepines, also known as benzos, including diazepam and alprazolam, muscle relaxants or sleep aids. Never sell or share prescription opioids. This is illegal. Store opioids in a secure place and out of reach of others (including children, family, friends and visitors). The last page(s) of this document has been signed and retained as a CHART COPY Signatures Patient Education Materials Ovarian Cyst Medication Leaflets My discharge plan and instructions have been reviewed and explained to me and IJANEE CHETOIA D understand my current condition and have read and understand these discharge instructions. I have received a written copy of the plan/instructions. If I have questions, I am aware that I should contact my doctor. Patient/Storage Consultant Signature: Date/Time: Relationship to Patient: Witness Name/Signature: Date/Time: [place] 12-26-2022 Note HNO ID: [id number] Author: Trinity Herrera APRN.PLACEMENT OFFICER Service: ? Author Type: Nurse Practitioner Type: Progress Notes Filed: 12/26/2022 3:47 PM Note Text: PSYC FOLLOW UP - PSYCHIATRIC PROGRESS NOTE CC: Follow-up for medication management With the patient consent, visit was performed virtually. I have communicated my name and active licensure. The patient's identity and physical location were verified at the time of this visit. Either the patient or their legal career services representative has been informed of the risks and benefits of -- and alternatives to -- treatment through a remote evaluation and consents to proceed with the evaluation remotely. HPI: Irvin Tan is a 37 year old female presenting today for follow-up for medication management. Patient was last seen on 11/23/21 for Bipolar II Disorder/FREDY/PTSD, where she was referred to MD MENDE[facility]. Continued on medications unchanged. Recommendations sent for therapy. Labs ordered. After last visit, patient began DBT IOP but discontinued after 1 session. Labs completed after last visit- vitamin D low, encouraged supplementation. Today, patient reports things are pretty much the same except I had my gallbladder removed in September so I've been down for a bit. Feeling much better now. States, I would say I'm a little bit more depressed than I was at the last visit because of my living situation, I have a lot going on. She has continued on medications unchanged- Lexapro 20 mg daily, Lamictal 200 mg daily, and Vistaril 25 mg PRN BID for anxiety. Denies side effects or concerns. Was previously following with a therapist but did not find it beneficial. When asked about the IOP, patient states she doesn't recall what happened or why she didn't follow through with it. Not currently working. Shares that she applied for social security and is waiting to hear back from them before looking for another job. Endorses high level of depression and anxiety today. Worried about her kids going back to school. Reports intermittent panic attacks. Sleep- too much , 6 hours/night + napping 2 hours Interest- cleaning, eating, sleeping, walking the dogs, caring for the kids Energy- not too bad Concentration- normal Appetite- it's been poor since I had the gallbladder surgery Denies passive wishes. Denies suicidal ideation, plan, or intent. Denies homicidal ideation, plan, or intent. Denies delusions, hallucinations, or manic behaviors. Endorses marijuana use- when I can get it and nicotine use- 1ppd. Denies other substance use. Risks and benefits of the medication, including any black box warnings, were discussed with the patient. Interval Progress: Same PATIENT DATA: Generalized Anxiety Disorder Scale (FREDY-7) FREDY - 7 SCORES 12/17/2021 03/24/2022 12/26/2022 FREDY-7 Score 17 14 8 (0-4) minimal anxiety, (5-9) mild anxiety, (10-14) moderate anxiety, (15-21) severe anxiety Patient Health Questionnaire (PHQ-9) PHQ-9 12/17/2021 03/24/2022 12/26/2022 Score 22 16 24 (0-4) minimal depression, (5-9) mild depression, (10-14) moderate depression, (15-19) moderately severe depression, (20-27) severe depression PROMIS Global Health PROMIS-10 Flowsheet Row [facility] from 12/26/2022 in Psychiatry Appointment from 09/03/2022 in Family Medicine Lana Global Physical Health T Score 37.4 23.5 Global Mental Health T Score 31.3 33.8 0-10 Standard Pain Scale 5 2 PAST MEDICAL HISTORY Diagnosis Date Anxiety and depression Bipolar affective (HCC) Crohn's disease (HCC) Diverticulosis Hemorrhoid PAST SURGICAL HISTORY Procedure Laterality Date DILATION AND CURETTAGE LIGATE FALLOPIAN TUBE WRIST LEFT OP SURGERY Right artery repair after cutting herself Current Outpatient Medications Medication Sig escitalopram oxalate (LEXAPRO) 20 mg tablet Take 1 tablet by mouth once daily. hydrOXYzine pamoate (VISTARIL) 25 mg capsule Take 1 capsule by mouth twice daily as needed for anxiety. lamoTRIgine (LAMICTAL) 200 mg tablet Take 1 tablet by mouth once daily. albuterol HFA (PROVENTIL HFA, VENTOLIN HFA) 90 mcg/actuation inhaler Inhale 2 Puffs as instructed every 6 hours as needed for wheezing/shortness of breath. lisinopril (ZESTRIL) 10 mg tablet Take 1 tablet by mouth once daily. ondansetron orally disintegrating (ZOFRAN ODT) 4 mg disintegrating tablet dissolve 1 tablet ON TONGUE every 8 hours dicyclomine (BENTYL) 20 mg tablet Take 1 tablet by mouth three times daily. lisinopril (ZESTRIL, PRINIVIL) 20 mg tablet Take 1 tablet by mouth once daily. hyoscyamine (LEVSIN) 0.125 mg tablet take 1 tablet by mouth twice a day for DYSPEPSIA albuterol HFA (PROVENTIL HFA, VENTOLIN HFA) 90 mcg/actuation inhaler Inhale 2 Puffs as instructed every 6 hours as needed for wheezing/shortness of breath. promethazine (PHENERGAN) 12.5 mg tablet Take 1 tablet by mouth every 6 hours as needed for nausea/vomiting. (Patient not taking: No sig r (more content not included)... [facility] 12-21-2022 Miscellaneous Notes Records show that there should be a valid prescription at pharmacy. Patient needs to contact pharmacy regarding prescription. Ivet Duke RN Last Office Visit: 06/17/2022 Future Office Visit: none Requested Prescriptions Pending Prescriptions Disp Refills dicyclomine (BENTYL) 20 mg tablet 90 tablet 5 Sig: Take 1 tablet by mouth three times daily. documented in this encounter [facility] 11-08-2022 Note HNO ID: [id number] Author: Trinity Herrera APRN.PLACEMENT OFFICER Service: ? Author Type: Nurse Practitioner Type: Progress Notes Filed: 11/08/2022 1:51 PM Note Text: No show [facility] 11-07-2022 Miscellaneous Notes Last office visit: 06/17/22 F/u scheduled: 12/16/22 Audrey Song Ma documented in this encounter [facility] 11-07-2022 Miscellaneous Notes Lisinopril was refilled on 10/08/22 #90 with 1 additional refill to [facility]. Pt notified via [email or web address] to check with pharmacy. documented in this encounter [facility] 10-08-2022 Miscellaneous Notes Patient phones requesting refills as follows: Requested Prescriptions Pending Prescriptions Disp Refills dicyclomine (BENTYL) 20 mg tablet 90 tablet 5 Sig: Take 1 tablet by mouth three times daily. ANIC[facility]O 06/17/2022 12/16/2022 Please review and advise. Candice Dale LPN documented in this encounter [facility] 10-08-2022 Miscellaneous Notes Patient phones requesting refills as follows: Requested Prescriptions Pending Prescriptions Disp Refills lisinopril (ZESTRIL) 10 mg tablet 90 tablet 1 Sig: Take 1 tablet by mouth once daily. ANICETO 06/17/2022 12/16/2022 Please review and advise. Candice Dale LPN documented in this encounter [facility] 09-23-2022 Note HNO ID: [id number] Author: Mp Hernadez MD Service: ? Author Type: Physician Type: Progress Notes Filed: 09/23/2022 12:15 PM Note Text: Patient presents with: Neck Pain: headache with tingling in face and head x 2 days HPI: Neck pain: Duration: started 2 days ago, woke with pain Character: stabbing neck pain, pressure in forehead (similar to her migraines but not as intense) Location: left neck, frontal Radiation: No. Aggravating: left head rotation Relieving: none Pain relievers: Motrin, Tylenol, Excedrin, and heat Associated: head is tingly with movement, nausea, headache, Pertinent negatives: Denies numbness or weakness, fever, head/neck injury. PAST MEDICAL HISTORY Diagnosis Date Anxiety and depression Bipolar affective (HCC) Crohn's disease (HCC) Diverticulosis Hemorrhoid MEDICATIONS: albuterol HFA (PROVENTIL HFA, VENTOLIN HFA) 90 mcg/actuation inhaler Inhale 2 Puffs as instructed every 6 hours as needed for wheezing/shortness of breath. hydrOXYzine pamoate (VISTARIL) 25 mg capsule Take 1 capsule by mouth twice daily as needed for anxiety. lisinopril (ZESTRIL, PRINIVIL) 10 mg tablet Take 1 tablet by mouth once daily. lisinopril (ZESTRIL, PRINIVIL) 20 mg tablet Take 1 tablet by mouth once daily. lamoTRIgine (LAMICTAL) 200 mg tablet Take 1 tablet by mouth once daily. escitalopram oxalate (LEXAPRO) 20 mg tablet take 1 tablet by mouth once daily hyoscyamine (LEVSIN) 0.125 mg tablet take 1 tablet by mouth twice a day for DYSPEPSIA dicyclomine (BENTYL) 20 mg tablet Take 1 tablet by mouth three times daily. ondansetron orally disintegrating (ZOFRAN ODT) 4 mg disintegrating tablet dissolve 1 tablet ON TONGUE every 8 hours albuterol HFA (PROVENTIL HFA, VENTOLIN HFA) 90 mcg/actuation inhaler Inhale 2 Puffs as instructed every 6 hours as needed for wheezing/shortness of breath. promethazine (PHENERGAN) 12.5 mg tablet Take 1 tablet by mouth every 6 hours as needed for nausea/vomiting. (Patient not taking: No sig reported) ALLERGIES: ALLERGIES Allergen Reactions Amoxicillin Rash Tramadol Rash VITALS: BP 126/80 Pulse 86 Temp 36.6 ?C (97.9 ?F) Resp 16 Wt 84.8 kg (187 lb) LMP 04/12/2022 SpO2 97% BMI 32.10 kg/m? PHYSICAL EXAM: GEN: pleasant, no acute distress, alert NECK: pain with extreme left rotation and flexion, limited extension. Tender left lateral neck. No midline tenderness HEART: regular rate, regular rhythm, no murmurs LUNGS: clear to auscultation, no wheezes or crackles, no increased WOB EXT: no clubbing, no cyanosis, no edema NEURO: Alert and oriented to person, place, and time. CN II-XII intact. DTR 2+/4. Normal strength. Normal gait. No tremor. ASSESSMENT/PLAN: 1. Neck pain on left side - ICD9: 723.1, ICD10: M54.2 (primary diagnosis) Treat musculoskeletal neck pain with [id number] analgesia, warm compress, and gentle range of motion. Add - CYCLOBENZAPRINE 10 MG TABLET -discussed drowsiness side effect. Avoid driving or operating machinery after taking. 2. Headache, unspecified headache type - ICD9: 784.0, ICD10: R51.9 Continue xjzg-glw-whvfrgh analgesia. Denies use of prior migraine specific medication, but has not had cocktails in the emergency room for bad migraine. Follow-up if persists. Mp Hernadez MD [facility] 09-23-2022 History of Presen t illness Narrative Patient presents with: Neck Pain: headache with tingling in face and head x 2 days HPI: Neck pain: Duration: started 2 days ago, woke with pain Character: stabbing neck pain, pressure in forehead (similar to her migraines but not as intense) Location: left neck, frontal Radiation: No. Aggravating: left head rotation Relieving: none Pain relievers: Motrin, Tylenol, Excedrin, and heat Associated: head is tingly with movement, nausea, headache, Pertinent negatives: Denies numbness or weakness, fever, head/neck injury. PAST MEDICAL HISTORY Diagnosis Date Anxiety and depression Bipolar affective (HCC) Crohn's disease (HCC) Diverticulosis Hemorrhoid MEDICATIONS: albuterol HFA (PROVENTIL HFA, VENTOLIN HFA) 90 mcg/actuation inhaler Inhale 2 Puffs as instructed every 6 hours as needed for wheezing/shortness of breath. hydrOXYzine pamoate (VISTARIL) 25 mg capsule Take 1 capsule by mouth twice daily as needed for anxiety. lisinopril (ZESTRIL, PRINIVIL) 10 mg tablet Take 1 tablet by mouth once daily. lisinopril (ZESTRIL, PRINIVIL) 20 mg tablet Take 1 tablet by mouth once daily. lamoTRIgine (LAMICTAL) 200 mg tablet Take 1 tablet by mouth once daily. escitalopram oxalate (LEXAPRO) 20 mg tablet take 1 tablet by mouth once daily hyoscyamine (LEVSIN) 0.125 mg tablet take 1 tablet by mouth twice a day for DYSPEPSIA dicyclomine (BENTYL) 20 mg tablet Take 1 tablet by mouth three times daily. ondansetron orally disintegrating (ZOFRAN ODT) 4 mg disintegrating tablet dissolve 1 tablet ON TONGUE every 8 hours albuterol HFA (PROVENTIL HFA, VENTOLIN HFA) 90 mcg/actuation inhaler Inhale 2 Puffs as instructed every 6 hours as needed for wheezing/shortness of breath. promethazine (PHENERGAN) 12.5 mg tablet Take 1 tablet by mouth every 6 hours as needed for nausea/vomiting. (Patient not taking: No sig reported) ALLERGIES: ALLERGIES Allergen Reactions Amoxicillin Rash Tramadol Rash VITALS: BP 126/80 Pulse 86 Temp 36.6 C (97.9 F) Resp 16 Wt 84.8 kg (187 lb) LMP 04/12/2022 SpO2 97% BMI 32.10 kg/m PHYSICAL EXAM: GEN: pleasant, no acute distress, alert NECK: pain with extreme left rotation and flexion, limited extension. Tender left lateral neck. No midline tenderness HEART: regular rate, regular rhythm, no murmurs LUNGS: clear to auscultation, no wheezes or crackles, no increased WOB EXT: no clubbing, no cyanosis, no edema NEURO: Alert and oriented to person, place, and time. CN II-XII intact. DTR 2+/4. Normal strength. Normal gait. No tremor. ASSESSMENT/PLAN: 1. Neck pain on left side - ICD9: 723.1, ICD10: M54.2 (primary diagnosis) Treat musculoskeletal neck pain with xyrt-kkf-cyvapsc analgesia, warm compress, and gentle range of motion. Add - CYCLOBENZAPRINE 10 MG TABLET -discussed drowsiness side effect. Avoid driving or operating machinery after taking. 2. Headache, unspecified headache type - ICD9: 784.0, ICD10: R51.9 Continue ijym-zvn-fzcfzab analgesia. Denies use of prior migraine specific medication, but has not had cocktails in the emergency room for bad migraine. Follow-up if persists. Mp Hernadez MD documented in this encounter [facility] 09-16-2022 Miscellaneous Notes Patient phones requesting refills as follows: Requested Prescriptions Pending Prescriptions Disp Refills albuterol HFA (PROVENTIL HFA, VENTOLIN HFA) 90 mcg/actuation inhaler 8.5 g 1 Sig: Inhale 2 Puffs as instructed every 6 hours as needed for wheezing/shortness of breath. ANICETO 09/03/2022 NOV 12/16/2022 Please review and advise. Candice Dale LPN documented in this encounter [facility] 06-19-2022 Miscellaneous Notes Pt called and is notified of providers results. Pt voices understanding. Anamika Clarke RN Please call patient and let her know her hand xray shows a bowing deformity over area of concern- this is likely from her old fracture healing. No acute findings. Michelle Grimm APRN.BLANCHE documented in this encounter [facility] 06-17-2022 History of Presen t illness Narrative 06/17/2022 Patient presents with: Follow Up: BP SUBJECTIVE: This is a 37 year old that is here today for Above Complaints. BP elevated at last office appointment. Lisinopril increased. Taking and tolearting without side efects. Taking BP once daily in the morning and gettng similar readings as today. Denies visual changes, dizziness, lightheadedness, slurred speech, facial drooping, extremity numbness, tingling, weakness, SOB, dyspnea, or chest pain ONSET: for a couple of years after fracture but worse since hitting it a few days ago LOCATION: right hand lateral ( ulnar side dorsal DURATION: constant CHARACTERISTICS: sharp AGGRAVATING FEATURES: turning hand ALLEVIATING FEATURES: ibuprofen - help a little RADIATION: shoots up to elbow- ulnar sie TIMING: Fell cleanding tub at work and put her right hand out to stop and hit her hand on the soap dish Two years ago hand boxers fracture to right hand and had cast on. Took cast off herself after wearing for six weeks- never followed up Admits to some swelling to hand Denies past surgery, bruising or redness PAST MEDICAL HISTORY Diagnosis Date Anxiety and depression Bipolar affective (HCC) Crohn's disease (HCC) Diverticulosis Hemorrhoid ALLERGIES Amoxicillin and Tramadol MEDICATIONS Current Outpatient Medications Medication Sig escitalopram oxalate (LEXAPRO) 20 mg tablet take 1 tablet by mouth once daily hyoscyamine (LEVSIN) 0.125 mg tablet take 1 tablet by mouth twice a day for DYSPEPSIA dicyclomine (BENTYL) 20 mg tablet Take 1 tablet by mouth three times daily. ondansetron orally disintegrating (ZOFRAN ODT) 4 mg disintegrating tablet dissolve 1 tablet ON TONGUE every 8 hours lisinopril (ZESTRIL, PRINIVIL) 10 mg tablet Take 1 tablet by mouth once daily. albuterol HFA (PROVENTIL HFA, VENTOLIN HFA) 90 mcg/actuation inhaler Inhale 2 Puffs as instructed every 6 hours as needed for wheezing/shortness of breath. hydrOXYzine pamoate (VISTARIL) 25 mg capsule Take 1 capsule by mouth twice daily as needed for anxiety. lamoTRIgine (LAMICTAL) 200 mg tablet Take 1 tablet by mouth once daily. lisinopril (ZESTRIL, PRINIVIL) 20 mg tablet Take 1 tablet by mouth once daily. predniSONE (DELTASONE) 20 mg tablet Take 20 mg by mouth once daily. (Patient not taking: No sig reported) albuterol HFA (PROVENTIL HFA, VENTOLIN HFA) 90 mcg/actuation inhaler Inhale 2 Puffs as instructed every 6 hours as needed for wheezing/shortness of breath. (Patient not taking: No sig reported) promethazine (PHENERGAN) 12.5 mg tablet Take 1 tablet by mouth every 6 hours as needed for nausea/vomiting. (Patient not taking: No sig reported) No current facility-administered medications for this visit. Medications and allergies reviewed by this provider. SOCIAL HISTORY Social History Tobacco Use Smoking status: Every Day Packs/day: 1.00 Years: 13.00 Pack years: 13.00 Types: Cigarettes Smokeless tobacco: Never Vaping Use Vaping Use: Never used Substance Use Topics Alcohol use: Yes Comment: occasional Drug use: Never REVIEW OF SYSTEMS All other reviewed and negative other than HPI. OBJECTIVE: BP 114/82 Pulse 87 Resp 16 Wt 86.4 kg (190 lb 6.4 oz) LMP 04/12/2022 SpO2 98% BMI 32.68 kg/m . Vital signs reviewed by this provider. APPEARANCE Well appearing, alert, in no acute distress, well-hydrated, well nourished. RIGHT HAND/ARM/ELBOW: Mild swelling over fifth metacarpal. No obvious deformity, ecchymosis or erythema. FROM. No TTP to forearm or elbow Notes discomfort to fifth metacarpal with inversion of wrist and pronation. 2+ radial pulse with cap refill WNL HEPATITIS A(1 of 2 - Risk 2-dose series) Never done MMR(1 of 2 - Risk 2-dose series) Never done DTAP,TDAP,TD(1 - Tdap) Never done COVID-19 VACCINE(1) due on 02/11/2023 PNEUMOCOCCAL(2 - PCV) due on 02/11/2023 BP CONTROLLED (<130/80) due on 02/11/2023 ANNUAL PCP TEAM CHRONIC DISEASE VISIT due on 05/14/2023 PAP TESTING due on 09/19/2025 HPV TESTING due on 09/19/2025 HEPATITIS B(1 of 3 - Risk 3-dose series) due on 2044 INFLUENZA Completed DEPRESSION ASSESSMENT Completed HEPATITIS C SCREENING Completed HIV SCREENING Completed ASSESSMENT/PLAN: 1. Essential (primary) hypertension - ICD9: 401.9, ICD10: I10 (primary diagnosis) - improved control - Continue current medication(s) - Encouraged dietary sodium restriction/DASH diet - Recommended regular aerobic exercise. - Recommend home blood pressure monitoring, to bring results in on next visit - Discussed need and benefit for weight loss. - Recheck in 6 months, sooner should new symptoms or problems arise. - Goal of BP <140/90 - Patient counselled on smoking cessation. - Recommend home or pharmacy blood pressure monitoring - Recommended no refined sugar, low refined starch, healthy oil intake (olive oil), healthy protein (fish) along the lines of the Mediterranean diet. 2. Right hand pain - ICD9: 729.5, ICD10: M79.641 - consider fracture vs soft tissue injury - no red flag symptoms or exam findings - red flag symptoms discussed, verbalizes understanding - Rest, ice, compress and elevate. May use OTC pain relievers as directed on packaging - XR HAND GENERAL 3V PA/LAT/OBL RIGHT - follow-up pending xray to ER with red flag symptoms Michelle Grimm APRN.BLANCHE Prescription instructions reviewed with patient as applicable. Patient advised if symptoms do not improve or if symptoms worsen sooner, to contact their primary care physician. Potential red flag symptoms discussed with the patient. Reviewed appropriate action plan to take if red flag symptoms occur. Patient agreeable to treatment plan. I spent a total of 35 minutes on the date of the service which included preparing to see the patient, [id number] patient care, completing clinical documentation, obtaining and/or reviewing separately obtained history, performing a medically appropriate examination, counseling and educating the patient/family/caregiver, and ordering medications, tests, or procedures. documented in this encounter [facility] 06-11-2022 History of Presen t illness Narrative This note was created using [employer]. Ancelmo Tan is a 37 year old female. HPI 37-year-old female presents for mid and low back pain. Patient states that she was lifting a mattress yesterday when she felt a pop in her mid back. States that she has been having mid back pain since then. She points to her lower thoracic region. Patient states she has some mild low back pain bilaterally, but not as severe as the mid back pain. No numbness or tingling in the arms or legs. No loss of bowel/bladder function. No fevers. No history of back injury or back surgery in the past. PAST MEDICAL HISTORY Diagnosis Date Anxiety and depression Bipolar affective (HCC) Crohn's disease (HCC) Diverticulosis Hemorrhoid PAST SURGICAL HISTORY Procedure Laterality Date DILATION & CURETTAGE LIGATE FALLOPIAN TUBE WRIST LEFT OP SURGERY Right artery repair after cutting herself ALLERGIES Amoxicillin and Tramadol MEDICATIONS escitalopram oxalate (LEXAPRO) 20 mg tablet take 1 tablet by mouth once daily hyoscyamine (LEVSIN) 0.125 mg tablet take 1 tablet by mouth twice a day for DYSPEPSIA dicyclomine (BENTYL) 20 mg tablet Take 1 tablet by mouth three times daily. ondansetron orally disintegrating (ZOFRAN ODT) 4 mg disintegrating tablet dissolve 1 tablet ON TONGUE every 8 hours lisinopril (ZESTRIL, PRINIVIL) 10 mg tablet Take 1 tablet by mouth once daily. albuterol HFA (PROVENTIL HFA, VENTOLIN HFA) 90 mcg/actuation inhaler Inhale 2 Puffs as instructed every 6 hours as needed for wheezing/shortness of breath. hydrOXYzine pamoate (VISTARIL) 25 mg capsule Take 1 capsule by mouth twice daily as needed for anxiety. lamoTRIgine (LAMICTAL) 200 mg tablet Take 1 tablet by mouth once daily. lisinopril (ZESTRIL, PRINIVIL) 20 mg tablet Take 1 tablet by mouth once daily. methocarbamol (ROBAXIN) 500 mg tablet Take 1 tablet by mouth every 6 hours as needed (Pain) for up to 3 days. predniSONE (DELTASONE) 20 mg tablet Take 20 mg by mouth once daily. (Patient not taking: Reported on 06/11/2022) albuterol HFA (PROVENTIL HFA, VENTOLIN HFA) 90 mcg/actuation inhaler Inhale 2 Puffs as instructed every 6 hours as needed for wheezing/shortness of breath. (Patient not taking: No sig reported) promethazine (PHENERGAN) 12.5 mg tablet Take 1 tablet by mouth every 6 hours as needed for nausea/vomiting. (Patient not taking: No sig reported) FAMILY HISTORY Problem Relation Age of Onset Depression Mother Bipolar disorder Mother No Known Problems Father other (CABG) Maternal Grandfather No Known Problems Paternal Grandmother No Known Problems Paternal Grandfather Social History Tobacco Use Smoking status: Every Day Packs/day: 1.00 Years: 13.00 Pack years: 13.00 Types: Cigarettes Smokeless tobacco: Never Vaping Use Vaping Use: Never used Substance Use Topics Alcohol use: Yes Comment: occasional Drug use: Never Review of Systems Constitutional: Negative for chills and fever. Respiratory: Negative for shortness of breath. Cardiovascular: Negative for chest pain. Gastrointestinal: Negative for diarrhea and vomiting. Musculoskeletal: Positive for back pain. Negative for gait problem. Neurological: Negative for numbness. Objective BP 132/84 Pulse 80 Temp 36.4 C (97.6 F) (Tympanic) Resp 18 Wt 88 kg (194 lb) LMP 04/12/2022 SpO2 99% BMI 33.30 kg/m Physical Exam Vitals and nursing note reviewed. Constitutional: General: She is not in acute distress. Appearance: Normal appearance. She is not toxic-appearing. Cardiovascular: Rate and Rhythm: Normal rate and regular rhythm. Pulmonary: Effort: Pulmonary effort is normal. Breath sounds: Normal breath sounds. Musculoskeletal: Thoracic back: Tenderness and bony tenderness present. Normal range of motion. Lumbar back: Tenderness present. No bony tenderness. Normal range of motion. Negative right straight leg raise test and negative left straight leg raise test. Comments: Normal ROM thoracic and lumbar spine. Patient does have midline thoracic tenderness. No bony step-offs or deformities. She has left-sided thoracic paraspinal muscle tenderness as well. Patient has mild lumbar paraspinal muscle tenderness. No midline tenderness. Normal ROM. Normal sensation lower extremities. Normal strength. Negative seated straight leg raise. Normal gait. Normal pulses lower extremities. Skin: General: Skin is warm and dry. Neurological: Mental Status: She is alert. Assessment and Plan ASSESSMENT/PLAN: 1. Acute midline thoracic back pain - ICD9: 724.1, ICD10: M54.6 (primary diagnosis) -No red flag symptoms. - Ice for localized tenderness - Muscle relaxant- see orders. - Recommended Tylenol and Motrin OTC. - Xrays- see orders - Patient given instructions to follow-up with PCP in 3 days. - XR THORACIC GENERAL 3V AP/LAT/SWIMMERS -XR unavailable in our facility today. Patient sent to outpatient facility for XR to be completed today. Suspect strain, low suspicion for fracture. We will call her with any abnormal results. 2. Strain of thoracic region, initial encounter - ICD9: 847.1, ICD10: S29.019A -See above. -Rx for Robaxin. Advised not to drive while taking this medication as it may cause drowsiness. -Advised importance of follow-up with PCP if symptoms continue as she may need physical therapy or more advanced imaging. She understands. Diagnosis and treatment plan were discussed and questions were answered to the patient's satisfaction. Pt acknowledged understanding of concepts and follow up plan. Specific signs and symptoms that would indicate the need for higher level of care were discussed in detail warranting prompt ER evaluation. KATHIE Wills documented in this encounter [facility] 05-14-2022 Nurse Note BARB BP 135/91 128/90 137/85 129/88 131/92 135/88 Avg. 132/89 documented in this encounter [facility] 05-14-2022 History of Presen t illness Narrative 05/14/2022 Patient presents with: Follow Up Hypertension: High BP readings in the morning with frontal headaches X 1 wk SUBJECTIVE: This is a 37 year old that is here today for Above Complaints.. Checking BPs daily 150-160/90's, however she reports yesterday her bottom number was 130. Also reports she has been waking up with headaches across the front of her head. Feels better about an hour after taking her BP medications. Denies visual changes, slurred speech, facial drooping, extremity numbness, tingling, weakness, dizziness, lightheadedness, dyspnea, chest pain or palpitations. PAST MEDICAL HISTORY Diagnosis Date Anxiety and depression Bipolar affective (HCC) Crohn's disease (HCC) Diverticulosis Hemorrhoid ALLERGIES Amoxicillin and Tramadol MEDICATIONS Current Outpatient Medications Medication Sig dicyclomine (BENTYL) 20 mg tablet Take 20 mg by mouth. hyoscyamine (LEVSIN) 0.125 mg tablet take 1 tablet by mouth twice a day for DYSPEPSIA predniSONE (DELTASONE) 20 mg tablet Take 20 mg by mouth once daily. ondansetron orally disintegrating (ZOFRAN ODT) 4 mg disintegrating tablet dissolve 1 tablet ON TONGUE every 8 hours albuterol HFA (PROVENTIL HFA, VENTOLIN HFA) 90 mcg/actuation inhaler Inhale 2 Puffs as instructed every 6 hours as needed for wheezing/shortness of breath. hydrOXYzine pamoate (VISTARIL) 25 mg capsule Take 1 capsule by mouth twice daily as needed for anxiety. lamoTRIgine (LAMICTAL) 200 mg tablet Take 1 tablet by mouth once daily. lisinopril (ZESTRIL, PRINIVIL) 20 mg tablet Take 1 tablet by mouth once daily. escitalopram oxalate (LEXAPRO) 20 mg tablet Take 1 tablet by mouth once daily. albuterol HFA (PROVENTIL HFA, VENTOLIN HFA) 90 mcg/actuation inhaler Inhale 2 Puffs as instructed every 6 hours as needed for wheezing/shortness of breath. (Patient not taking: No sig reported) promethazine (PHENERGAN) 12.5 mg tablet Take 1 tablet by mouth every 6 hours as needed for nausea/vomiting. (Patient not taking: No sig reported) No current facility-administered medications for this visit. Medications and allergies reviewed by this provider. SOCIAL HISTORY Social History Tobacco Use Smoking status: Every Day Packs/day: 1.00 Years: 13.00 Pack years: 13.00 Types: Cigarettes Smokeless tobacco: Never Vaping Use Vaping Use: Never used Substance Use Topics Alcohol use: Yes Comment: occasional Drug use: Never REVIEW OF SYSTEMS All other reviewed and negative other than HPI. OBJECTIVE: BP 132/89 Pulse 81 Ht 162.6 cm (5' 4 ) Wt 88.4 kg (194 lb 12.8 oz) LMP 04/12/2022 SpO2 100% BMI 33.44 kg/m . Vital signs reviewed by this provider. APPEARANCE Well appearing, alert, in no acute distress, well-hydrated, well nourished. EYES conjunctiva and sclera normal. HEART RRR with normal S1 and S2, no murmurs, no gallops, no JVD appreciated LUNG clear to auscultation. No wheezes, rhonchi, or rales SKIN Skin color, texture, turgor normal, no suspicious rashes or lesions to exposed skin HEPATITIS A(1 of 2 - Risk 2-dose series) Never done MENINGOCOCCAL B: Consider based on risk(1 of 4 - Increased Risk Bexsero 2-dose series) Never done MMR(1 of 2 - Risk 2-dose series) Never done DTAP,TDAP,TD(1 - Tdap) Never done COVID-19 VACCINE(1) due on 02/11/2023 PNEUMOCOCCAL(2 - PCV) due on 02/11/2023 BP CONTROLLED (<130/80) due on 02/11/2023 ANNUAL PCP TEAM CHRONIC DISEASE VISIT due on 05/14/2023 PAP TESTING due on 09/19/2025 HPV TESTING due on 09/19/2025 HEPATITIS B(1 of 3 - Risk 3-dose series) due on 2044 INFLUENZA Completed DEPRESSION ASSESSMENT Completed HEPATITIS C SCREENING Completed HIV SCREENING Completed ASSESSMENT/PLAN: 1. Hypertension, essential - ICD9: 401.9, ICD10: I10 - suboptimal control - Increase lisinopril (Zestril/Prinivil) - Encouraged dietary sodium restriction/DASH diet - Recommended regular aerobic exercise. - Recommend home blood pressure monitoring, to bring results in on next visit - Discussed need and benefit for weight loss. - Follow up in 1 month for BP recheck. Bring home BP cuff so we can validate against ours - Goal of BP <140/90 - Patient counselled on smoking cessation. - Recommend home or pharmacy blood pressure monitoring - Recommended no refined sugar, low refined starch, healthy oil intake (olive oil), healthy protein (fish) along the lines of the Mediterranean diet. - LISINOPRIL 10 MG TABLET Michelle Grimm APRN.CNP Prescription instructions reviewed with patient as applicable. Patient advised if symptoms do not improve or if symptoms worsen sooner, to contact their primary care physician. Potential red flag symptoms discussed with the patient. Reviewed appropriate action plan to take if red flag symptoms occur. Patient agreeable to treatment plan. I spent a total of 20 minutes on the date of the service which included preparing to see the patient, [id number] patient care, completing clinical documentation, obtaining and/or reviewing separately obtained history, performing a medically appropriate examination, counseling and educating the patient/family/caregiver, and ordering medications, tests, or procedures. documented in this encounter [facility] 05-10-2022 Instructions Carrillo Hudson APRN.CNP - 05/10/2022 11:04 AM EST R.I.C.E. The general care of your injury includes the following: Resting, Icing, Compressing and Elevating the injured area. Remember this as RICE. REST: Limit the use of the injured body part. ICE: By applying ice to the affected area, swelling and pain can be reduced. Place some ice cubes in a re-sealable (Ziploc) bag and add some water. Put a thin washcloth between the bag and your skin. Apply the ice bag to the area for at least 20 minutes. Do this at least 4 times per day. Using the ice for longer times and more frequently is OK. NEVER APPLY ICE DIRECTLY TO THE SKIN. COMPRESS: Compression means to apply pressure around the injured area such as with a splint, cast or an laith bandage. Compression decreases swelling and improves comfort. Compression should be tight enough to relieve swelling but not so tight as to decrease circulation. Increasing pain, numbness, tingling, or change in skin color, are all signs of decreased circulation. ELEVATE: Elevate the injured part. For example, elevate your foot by placing it on a chair while sitting, or propping it up on pillows when lying down. documented in this encounter [facility] 05-10-2022 History of Presen t illness Narrative Subjective HPI Nontoxic-appearing female presents urgent care chief complaint right hip pain. Duration of symptoms 1 day. Associated symptoms right hip pain. Patient states she was walking home yesterday when she slipped and fell. Patient states she struck her hip on the ground. Presents today for evaluation. States majority of her pain is on the lateral aspect of her right hip. Has not used any OTC medications. Denies any significant pain. Able to ambulate. However this does make it more uncomfortable. Denies any numbness no tingling. No decrease sensation. Denies any fever body aches chills productive cough chest pain shortness of breath pleuritic pain hemoptysis nausea vomiting abdominal pain change in bowel or bladder habits. Past medical history prescription medication use and allergies reviewed. Denies chance of is not breast-feeding. .Patient presents with: Right Hip Pain: Slipped and fell PAST MEDICAL HISTORY Diagnosis Date Anxiety and depression Bipolar affective (HCC) Crohn's disease (HCC) Diverticulosis Hemorrhoid PAST SURGICAL HISTORY Procedure Laterality Date DILATION & CURETTAGE LIGATE FALLOPIAN TUBE WRIST LEFT OP SURGERY Right artery repair after cutting herself ALLERGIES Amoxicillin and Tramadol MEDICATIONS albuterol HFA (PROVENTIL HFA, VENTOLIN HFA) 90 mcg/actuation inhaler Inhale 2 Puffs as instructed every 6 hours as needed for wheezing/shortness of breath. hydrOXYzine pamoate (VISTARIL) 25 mg capsule Take 1 capsule by mouth twice daily as needed for anxiety. lamoTRIgine (LAMICTAL) 200 mg tablet Take 1 tablet by mouth once daily. lisinopril (ZESTRIL, PRINIVIL) 20 mg tablet Take 1 tablet by mouth once daily. escitalopram oxalate (LEXAPRO) 20 mg tablet Take 1 tablet by mouth once daily. albuterol HFA (PROVENTIL HFA, VENTOLIN HFA) 90 mcg/actuation inhaler Inhale 2 Puffs as instructed every 6 hours as needed for wheezing/shortness of breath. (Patient not taking: Reported on 04/19/2022) promethazine (PHENERGAN) 12.5 mg tablet Take 1 tablet by mouth every 6 hours as needed for nausea/vomiting. (Patient not taking: Reported on 05/10/2022) FAMILY HISTORY Problem Relation Age of Onset Depression Mother Bipolar disorder Mother No Known Problems Father other (CABG) Maternal Grandfather No Known Problems Paternal Grandmother No Known Problems Paternal Grandfather Social History Tobacco Use Smoking status: Every Day Packs/day: 1.00 Years: 13.00 Pack years: 13.00 Types: Cigarettes Smokeless tobacco: Never Vaping Use Vaping Use: Never used Substance Use Topics Alcohol use: Yes Comment: occasional Drug use: Never BP 126/88 Pulse 100 Temp 36.7 C (98 F) Resp 20 Wt 89.3 kg (196 lb 12.8 oz) LMP 04/12/2022 SpO2 96% BMI 33.78 kg/m Review of Systems Constitutional: Negative for chills, fever and malaise/fatigue. HENT: Negative for congestion, ear discharge, ear pain, sinus pain and sore throat. Eyes: Negative for blurred vision, pain, discharge and redness. Respiratory: Negative for cough, hemoptysis, sputum production, shortness of breath, wheezing and stridor. Cardiovascular: Negative for chest pain. Gastrointestinal: Negative for abdominal pain, diarrhea, nausea and vomiting. Musculoskeletal: Positive for falls and joint pain. Negative for back pain, myalgias and neck pain. Skin: Negative for itching and rash. Neurological: Negative for dizziness and headaches. Objective Physical Exam Constitutional: General: She is not in acute distress. Appearance: She is not diaphoretic. HENT: Head: Normocephalic. Mouth/Throat: Mouth: Mucous membranes are moist. Pharynx: Oropharynx is clear. No oropharyngeal exudate or posterior oropharyngeal erythema. Eyes: Conjunctiva/sclera: Conjunctivae normal. Pupils: Pupils are equal, round, and reactive to light. Cardiovascular: Rate and Rhythm: Normal rate and regular rhythm. Heart sounds: Normal heart sounds. Pulmonary: Effort: Pulmonary effort is normal. No tachypnea, accessory muscle usage or respiratory distress. Breath sounds: Normal breath sounds. No stridor. No wheezing, rhonchi or rales. Abdominal: General: There is no distension. Palpations: Abdomen is soft. Tenderness: There is no abdominal tenderness. There is no guarding or rebound. Musculoskeletal: Cervical back: Normal range of motion and neck supple. No rigidity or tenderness. Thoracic back: No swelling, edema, signs of trauma, tenderness or bony tenderness. Normal range of motion. Lumbar back: No swelling, edema, signs of trauma, tenderness or bony tenderness. Normal range of motion. Right hip: Tenderness and bony tenderness present. No lacerations. Normal range of motion. Normal strength. Right upper leg: No swelling, edema, tenderness or bony tenderness. Right knee: No swelling, ecchymosis or bony tenderness. Normal range of motion. No tenderness. Right lower leg: No swelling or bony tenderness. No edema. Left lower leg: No swelling or bony tenderness. No edema. Comments: Point tenderness noted right hip iliac crest region. No evidence of trauma. No erythema no edema Lymphadenopathy: Cervical: No cervical adenopathy. Skin: General: Skin is warm and dry. Neurological: Mental Status: She is alert and oriented to person, place, and time. ASSESSMENT/PLAN: 1. Hip pain, acute, right - ICD9: 719.45, ICD10: M25.551 - XR HIP GENERAL 3V PELV/AP/LAT RIGHT IMPRESSION: No acute osseous abnormality Spinal tenderness or incontinence saddle anesthesia. X-ray negative. Diagnosed with hip contusion. We will treat conservatively at this time Patient was educated on supportive therapies. Patient will follow up with primary care provider as needed. Patient was instructed to immediately proceed to emergency room for any new, worsening, or symptoms lasting longer than anticipated. The patient's clinical presentation is otherwise unremarkable at this time. Based on exam and clinical finding, the patient is stable for discharge. Plan of care was discussed with patient. Patient verbalizes understanding and agrees to plan of care. This note was generated using [employer]! software. It may contain errors in wording, punctuation, or spelling. Carrillo Hudson APRN.BLANCHE documented in this encounter [facility] 04-19-2022 History of Presen t illness Narrative CC: Patient presents with: Pain, Throat: Pt reported chest congestion, bilateral ear pressure x1 day. HPI: Irvin Tan is a 37 year old female who presents to the office with complaint of chest congestion, sore throat, and ear symptoms for the past day. Symptoms are staying the same. Associated symptoms includes cough. Denies nausea, vomiting , and diarrhea. Treatments tried include nothing so far. with no relief of symptoms. Sick contacts: unknown. History of asthma, frequent episodes of bronchitis, chronic bronchitis, bronchiectasis or COPD: No Smoker: No Seasonal/environmental allergies: No The ROS is otherwise negative. The patient's pmh, medications, allergies, and past visits are reviewed. PHYSICAL EXAM: BP 142/78 Pulse 94 Temp 37.3 C (99.1 F) Resp 16 Wt 86.4 kg (190 lb 6.4 oz) LMP 04/12/2022 SpO2 97% BMI 32.68 kg/m General appearance: alert, cooperative, pleasant, in no acute distress Head: Normocephalic Eyes: EOM's intact, conjunctiva pink and moist, no icterus, sclera white, non-injected Heart: Negative. RRR without obvious murmur, gallop, or rubs. No ectopy. Lungs: clear to auscultation, without rales or wheeze, good air exchange PAST MEDICAL HISTORY Diagnosis Date Anxiety and depression Bipolar affective (HCC) Crohn's disease (HCC) Diverticulosis Hemorrhoid PAST SURGICAL HISTORY Procedure Laterality Date DILATION & CURETTAGE LIGATE FALLOPIAN TUBE WRIST LEFT OP SURGERY Right artery repair after cutting herself ALLERGIES Amoxicillin and Tramadol MEDICATIONS hydrOXYzine pamoate (VISTARIL) 25 mg capsule Take 1 capsule by mouth twice daily as needed for anxiety. lamoTRIgine (LAMICTAL) 200 mg tablet Take 1 tablet by mouth once daily. promethazine (PHENERGAN) 12.5 mg tablet Take 1 tablet by mouth every 6 hours as needed for nausea/vomiting. lisinopril (ZESTRIL, PRINIVIL) 20 mg tablet Take 1 tablet by mouth once daily. escitalopram oxalate (LEXAPRO) 20 mg tablet Take 1 tablet by mouth once daily. albuterol HFA (PROVENTIL HFA, VENTOLIN HFA) 90 mcg/actuation inhaler Inhale 2 Puffs as instructed every 6 hours as needed for wheezing/shortness of breath. (Patient not taking: Reported on 04/19/2022) FAMILY HISTORY Problem Relation Age of Onset Depression Mother Bipolar disorder Mother No Known Problems Father other (CABG) Maternal Grandfather No Known Problems Paternal Grandmother No Known Problems Paternal Grandfather Social History Tobacco Use Smoking status: Every Day Packs/day: 1.00 Years: 13.00 Pack years: 13.00 Types: Cigarettes Smokeless tobacco: Never Vaping Use Vaping Use: Never used Substance Use Topics Alcohol use: Yes Comment: occasional Drug use: Never ASSESSMENT/PLAN: 1. Sore throat - ICD9: 462, ICD10: J02.9 (primary diagnosis) - STREP A MOLECULAR (POC) - negative - COVID WITH FLUA+B, ROUTINE 2. URI, acute - ICD9: 465.9, ICD10: J06.9 - COVID WITH FLUA+B, ROUTINE Prescription instructions reviewed with patient as applicable. Potential red flag symptoms discussed with the patient. Reviewed appropriate action plan to take if red flag symptoms occur. Patient agreeable to treatment plan. Aaliyah Daniels APRN.CNP documented in this encounter [facility] 03-27-2022 Miscellaneous Notes Patient has been identified by name and date of : Yes Patient phones for refill(s): Requested Prescriptions Pending Prescriptions Disp Refills albuterol HFA (PROVENTIL HFA, VENTOLIN HFA) 90 mcg/actuation inhaler 8.5 g 1 Sig: Inhale 2 Puffs as instructed every 6 hours as needed for wheezing/shortness of breath. Date of last office visit in primary care: 02/11/22 Please advise. Thank you. Luna Bauer LPN documented in this encounter [facility] 03-23-2022 History of Presen t illness Narrative Subjective HPI Irvin Tan is a 37 year old female who presents with one day of nausea, vomiting, diarrhea, cough, and stuffy nose and body aches. 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 She has been taking ibuprofen. She has not had a fever. Her last episode of vomiting was this morning. Review of Systems Constitutional: Negative for chills and fever. HENT: Positive for congestion. Negative for ear pain and sore throat. Respiratory: Positive for cough. Negative for shortness of breath. Cardiovascular: Negative. Gastrointestinal: Positive for diarrhea, nausea and vomiting. Musculoskeletal: Positive for myalgias. Skin: Negative. BP 134/96 Pulse 90 Temp 36.5 C (97.7 F) Resp 20 Wt 89.6 kg (197 lb 9.6 oz) LMP 02/09/2021 SpO2 96% BMI 33.92 kg/m PAST MEDICAL HISTORY Diagnosis Date Anxiety and depression Bipolar affective (HCC) Crohn's disease (HCC) Diverticulosis Hemorrhoid PAST SURGICAL HISTORY Procedure Laterality Date DILATION & CURETTAGE LIGATE FALLOPIAN TUBE WRIST LEFT OP SURGERY Right artery repair after cutting herself ALLERGIES Amoxicillin and Tramadol MEDICATIONS lisinopril (ZESTRIL, PRINIVIL) 20 mg tablet Take 1 tablet by mouth once daily. hydrOXYzine pamoate (VISTARIL) 25 mg capsule Take 1 capsule by mouth twice daily as needed for anxiety. escitalopram oxalate (LEXAPRO) 20 mg tablet Take 1 tablet by mouth once daily. albuterol HFA (PROVENTIL HFA, VENTOLIN HFA) 90 mcg/actuation inhaler Inhale 2 Puffs as instructed every 6 hours as needed for wheezing/shortness of breath. benzonatate (TESSALON PERLE) 100 mg capsule Take 2 capsules by mouth three times daily as needed for up to 10 days. oseltamivir (TAMIFLU) 75 mg capsule Take 1 capsule by mouth twice daily for 5 days. promethazine (PHENERGAN) 12.5 mg tablet Take 1 tablet by mouth every 6 hours as needed for nausea/vomiting. lamoTRIgine (LAMICTAL) 200 mg tablet Take 1 tablet by mouth once daily. FAMILY HISTORY Problem Relation Age of Onset Depression Mother Bipolar disorder Mother No Known Problems Father other (CABG) Maternal Grandfather No Known Problems Paternal Grandmother No Known Problems Paternal Grandfather Social History Tobacco Use Smoking status: Every Day Packs/day: 1.00 Years: 13.00 Pack years: 13.00 Types: Cigarettes Smokeless tobacco: Never Vaping Use Vaping Use: Never used Substance Use Topics Alcohol use: Yes Comment: occasional Drug use: Never Objective Physical Exam Vitals and nursing note reviewed. Constitutional: Appearance: Normal appearance. HENT: Right Ear: Tympanic membrane, ear canal and external ear normal. Left Ear: Tympanic membrane, ear canal and external ear normal. Nose: Nose normal. Mouth/Throat: Mouth: Mucous membranes are moist. Pharynx: Oropharynx is clear. Uvula midline. No oropharyngeal exudate or posterior oropharyngeal erythema. Cardiovascular: Rate and Rhythm: Normal rate and regular rhythm. Heart sounds: Normal heart sounds. Pulmonary: Effort: Pulmonary effort is normal. No respiratory distress. Breath sounds: Normal breath sounds. No wheezing or rales. Musculoskeletal: Cervical back: Neck supple. Lymphadenopathy: Cervical: No cervical adenopathy. Skin: General: Skin is warm and dry. Findings: No erythema or rash. Neurological: Mental Status: She is alert. ASSESSMENT/PLAN: 1. Viral URI with cough - ICD9: 465.9, ICD10: J06.9 (primary diagnosis) - Discussed viral etiology and rationale for treatment. - Symptomatic treatment with prn analgesia - Supportive care with fluids and rest - COVID WITH FLUA+B, ROUTINE - BENZONATATE 100 MG CAPSULE - OSELTAMIVIR 75 MG CAPSULE 2. Nausea and vomiting, unspecified vomiting type - ICD9: 787.01, ICD10: R11.2 - PROMETHAZINE 12.5 MG TABLET - Follow-up with your PCP in 3-5 days if symptoms have not improved or sooner if symptoms worsen - Discussed red flags and need for immediate medical evaluation if any occur. - Discussed supportive care treatment with fluids, rest and analgesia. - Discussed expected course of illness Nicole Aguilar APRN.PLACEMENT OFFICER documented in this encounter [facility] 03-23-2022 Instructions Nicole Aguilar APRN.BLANCHE - 03/23/2022 8:38 AM EST ASSESSMENT/PLAN: 1. Viral URI with cough - ICD9: 465.9, ICD10: J06.9 (primary diagnosis) - Discussed viral etiology and rationale for treatment. - Symptomatic treatment with prn analgesia - Supportive care with fluids and rest - COVID WITH FLUA+B, ROUTINE - BENZONATATE 100 MG CAPSULE - OSELTAMIVIR 75 MG CAPSULE 2. Nausea and vomiting, unspecified vomiting type - ICD9: 787.01, ICD10: R11.2 - PROMETHAZINE 12.5 MG TABLET - Follow-up with your PCP in 3-5 days if symptoms have not improved or sooner if symptoms worsen - Discussed red flags and need for immediate medical evaluation if any occur. - Discussed supportive care treatment with fluids, rest and analgesia. - Discussed expected course of illness Nicole Aguilar APRN.PLACEMENT OFFICER [facility] PATIENT INFO INFLUENZA INTRODUCTION Influenza (commonly called the flu) is a highly contagious illness that can occur in children or adults of any age. It occurs more often in the winter months because people spend more time in close contact with one another. The flu is spread easily from crobiz[place]ub[place][id number] by coughing, sneezing, or touching surfaces. Every year, complications of the flu require more than 200,000 people in the [place] to be hospitalized. Serious illness is more likely in the very young, older adults, women, and people who have certain health problems such as asthma or other forms of lung disease. There have been several widespread flu outbreaks (called pandemics), which led to the deaths of many people worldwide. These outbreaks occurred when new strains of influenza viruses formed (often from pigs or birds) and humans became infected because they had no immunity to these viruses. FLU SYMPTOMS Symptoms of seasonal flu can vary from person to person, but usually include: Fever (temperature higher than 100 F or 37.8 C) Headache and muscle aches Fatigue Cough and sore throat may also be present People with the flu usually have a fever for two to five days. This is different than fever caused by other upper respiratory viruses, which usually resolve after 24 to 48 hours. Some people have cold-like symptoms (runny nose, sore throat) during the flu while others have fever and muscle aches. Flu symptoms usually improve over two to five days, although the illness may last for a week or more. Weakness and fatigue may persist for several weeks Flu complications -- Complications of influenza occur in some people; pneumonia is the most common complication. Pneumonia is a serious infection of the lungs, and is more likely to occur in people over the age of 65, people who live in fci care facilities (nursing homes), and those with other illnesses such as diabetes or conditions affecting the heart or lungs. FLU DIAGNOSIS Influenza is usually diagnosed based on symptoms (fever, cough and muscle aches). Lab testing for influenza is performed in certain cases, such as during a new influenza outbreak in a community. FLU TREATMENT When to seek help -- Most people with the flu recover within one to two weeks without treatment. However, serious complications of the flu can occur. Call your doctor or nurse immediately if: You feel short of breath or have trouble breathing You have pain or pressure in your chest or stomach You have signs of being dehydrated, such as dizziness when standing or not passing urine You feel confused You cannot stop vomiting or you cannot drink enough fluids There are several groups of people who are at increased risk for flu complications. These include women, young children (<5 years of age, and especially <2 years of age), people ?65 years of age, and people with certain diseases such as chronic lung disease (such as asthma), heart disease, diabetes, immunosuppressing conditions (such as HIV infection or transplantation), and some other diseases. If you or your child has flu symptoms and is at increased risk of flu complications, you should call your healthcare provider. Treat symptoms -- Treating the symptoms of influenza can help you to feel better, but will not make the flu go away faster. Rest until the flu is fully resolved, especially if the illness has been severe Fluids -- Drink enough fluids so that you do not become dehydrated. One way to manager event if you are drinking enough is to look at the color of your urine. Normally, urine should be light yellow to nearly colorless. If you are drinking enough, you should pass urine every three to five hours. Acetaminophen (such as Tylenol and other brands) can relieve fever, headache, and muscle aches. Aspirin, and medicines that include aspirin (eg, bismuth subsalicylate; PeptoBismol), are not recommended for children under 18 because aspirin can lead to a serious disease called Fredrick syndrome. Cough medicines are not usually helpful; cough usually resolves without treatment. We do not recommend cough or cold medicine for children under age six years. Antiviral treatment -- Antiviral medicines can be used to treat or prevent influenza. When used as a treatment, the medicine does not eliminate flu symptoms, although it can reduce the severity and duration of symptoms by about one day. Not every person with influenza needs an antiviral medicine; the decision is based upon your risk of developing complications of influenza. Antiviral treatment is most effective for seasonal influenza when it is taken within the first 48 hours of flu symptoms. Side effects -- Zanamivir and oseltamivir can cause mild side effects, including nausea and vomiting; zanamivir, which is inhaled, can cause difficulty breathing in some cases. Most people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 kg (190 lb) LMP 02/09/2021 SpO2 98% BMI 32.61 kg/m General Appearance: Well appearing, alert, in no acute distress, well-hydrated, well nourished.. Skin: Skin color, texture, turgor normal, no suspicious rashes or lesions. Head: Normocephalic, no masses, lesions, or abnormalities. Eyes: Anicteric sclera. Pupils are equally round and reactive to light. Extraocular movements are intact. Ears: External ears normal, canals clear, TM's clear with adequate light reflex. Nose/Sinuses: Nares normal, septum midline, mucosa normal, no drainage or sinus tenderness. Oropharynx: Lips, mucosa, and tongue normal, teeth and gums normal, oropharynx nonreddened. Neck: Supple, no adenopathy; thyroid symmetric, normal size, no bruits. Lymph Nodes: No cervical lymphadenopathy, No supraclavicular lymphadenopathy Lungs: Lungs clear to auscultation. No wheezing, rhonchi, rales. Heart: RRR without murmur, gallop, or rubs. No ectopy. Normal S1 and S2. - Alert and Oriented x3 - Cranial Nerves: 2-12 intact and no gross deficits - muscle bulk and tone symmetric, no atrophy - 5/5 muscle strength of major groups shoulders, elbows, wrists, hand, hips, knees, ankle - Sensory testing - in distal lower & upper extremities intact with no deficits - response to pain and light touch - Deep Tendon Reflexes 2+ at Biceps and Brachioradialis, Triceps, Patellar, & Ankle - Coordination intact (rapid alternating finger movements) Extremities: No deformities, edema, skin discoloration, clubbing or cyanosis. Good capillary refill. MSK: FROM of upper and lower extremities. No joint swelling or redness. Peripheral Pulses: Normal - radial and carotid 2+ Psych: Attitude: Cooperative, easily engaged in conversation Appearance: Normal, hygiene and grooming appropriate Affect: Euthymic (normal mood) Mental status: Alert, attentive. Speech is clear and fluent with good repetition, comprehension Gait/Stance: Posture is normal. Gait is steady with normal steps Health Maintenance List COVID-19 VACCINE(1) Never done DTAP,TDAP,TD(1 - Tdap) Never done INFLUENZA(1) due on 11/08/2021 DEPRESSION SCREENING due on 08/01/2022 PAP TESTING due on 09/19/2025 HPV TESTING due on 09/19/2025 ONE PNEUMOVAX PRIOR TO AGE 65 Completed HEPATITIS C SCREENING Completed HIV SCREENING Completed MENINGOCOCCAL CONJUGATE Aged Out Data reviewed Last 10 Encounter BP Readings: Date: BP: 08/06/2021 148/102 06/29/2021 126/78 05/22/2021 128/80 04/29/2021 122/70 02/23/2021 128/82 01/24/2021 118/64 01/15/2021 136/96 01/01/2021 124/80 10/07/2020 122/84 09/19/2020 120/62 BMI Readings from Last 10 Encounters: 08/07/21 : 32.61 kg/m 08/06/21 : 32.61 kg/m 06/29/21 : 31.96 kg/m 05/22/21 : 31.86 kg/m 04/29/21 : 31.41 kg/m 02/23/21 : 30.79 kg/m 01/24/21 : 31.10 kg/m 01/15/21 : 30.18 kg/m 01/01/21 : 31.07 kg/m 10/07/20 : 30.45 kg/m Last 10 Encounter Wt Readings: Date: Wt: 08/06/2021 86.2 kg (190 lb) 06/29/2021 84.5 kg (186 lb 3.2 oz) 05/22/2021 84.2 kg (185 lb 9.6 oz) 04/29/2021 83 kg (183 lb) 02/23/2021 81.4 kg (179 lb 6.4 oz) 01/24/2021 82.2 kg (181 lb 3.2 oz) 01/15/2021 79.7 kg (175 lb 12.8 oz) 01/01/2021 82.1 kg (181 lb) 10/07/2020 80.5 kg (177 lb 6.4 oz) 09/19/2020 82.1 kg (181 lb) Medication and allergy list reviewed, reconciled and updated 08/07/2021 ASSESSMENT/PLAN: 1. Migraine with aura, not intractable, without status migrainosus - ICD9: 346.00, ICD10: G43.109 (primary diagnosis) Chronic not well controlled: No SANTIAGO red flags identified in today's exam. No focal neuro deficits. Return to the clinic for any worsening signs or symptoms. For any fevers, chills, nausea, or diarrhea. Her elevated BP complicate her clinical picture and may be the cause of her SANTIAGO. Recommend Toradol today in the clinic. Use Tylenol and Zofran for headache. Start lisinopril low-dose at 10 mg for blood pressure. Follow-up in 2 weeks for reevaluation. Return to clinic sooner for worsening symptoms PLAN: Tylenol and antiemetics prn. F/u in 2 weeks for reeval. Sooner for concerns. Torodal 60mg today in clinic Medicines: You may need any of the following: Acetaminophen decreases pain and fever. It is available without a doctor's order. Ask how much to take and how often to take it. Follow directions. Read the labels of all other medicines you are using to see if they also contain acetaminophen, or ask your doctor or pharmacist. Acetaminophen can cause liver damage if not taken correctly. Do not use more than 3 grams (3,000 milligrams) total of acetam Home Care Instructions: Contact your healthcare provider if: You have a constant headache and are vomiting. You have a headache each day that does not get better, even after treatment. You have changes in your headaches, or new symptoms that occur when you have a headache. Go to the emergency department if: You have severe pain. You have numbness or weakness on one side of your face or body. You have a headache that occurs after a blow to the head, a fall, or other trauma. You have a headache, are forgetful or confused, or have trouble speaking. You have a headache, stiff neck, and a fever - KETOROLAC 60 MG/2 ML INTRAMUSCULAR SOLUTION 2. Primary hypertension - ICD9: 401.9, ICD10: I10 - suboptimal control - Begin lisinopril (Zestril/Prinivil) - Encouraged dietary sodium restriction/DASH diet - Recommended regular aerobic exercise. - Recommend home blood pressure monitoring, to bring results in on next visit - Goal of BP <130/80 - Recommended no refined sugar, low refined starch, healthy oil intake (olive oil), healthy protein (fish) along the lines of the Mediterranean diet. - LISINOPRIL 10 MG TABLET 3. Obesity, Class I, BMI 30-34.9 - ICD9: 278.00, ICD10: E66.9 Chronic and stable weight Recommend regular physical activity, nutrition and healthy eating habits. Consume a variety of foods every day focusing on fruits, vegetables and lean meats). Eat foods low in fat, saturated fat and cholesterol. Eat a limited amount of salt and sodium. Drink adequate amounts of water and limit sugary drinks. Exercise portion control in meal selection. Establish a mindset of a wellness approach to health. 4. Bipolar affective disorder, remission status unspecified (HCC) - ICD9: 296.80, ICD10: F31.9 Clinically stable Continue current medications Jani Keating APRN.GUALBERTO MANCIA This note was completed with [employer] dictation software. Note was reviewed for accuracy. There may be minor misspellings or grammar miscues with [employer] Dictation. I spent a total of 31 minutes on the date of the service which included preparing to see the patient, [id number] patient care, completing clinical documentation, performing a medically appropriate examination, counseling and educating the patient/family/caregiver and ordering medications, tests, or procedures. [place] [id number] documented in this encounter [facility] 08-06-2021 History of Presen t illness Narrative Patient presents with: Blood Pressure Check: fatigue and headache x today, one other time last week HPI: Head pain: Duration: Woke with headache this morning Location: Right frontal (has had similar location in the past) Character: Throbbing, 8/10 Radiation: No. Aggravating: Sound and light Relieving: While sleeping Pain relievers: Motrin. She has been treated with a cocktail in the emergency room for headache in the past. Associated: fatigue Pertinent negatives: Denies dizziness, fever, head injury, numbess Treated for HTN after delivery of son. Denies chest pain, shortness of breath, dizziness, palpitations, or edema. Homechecks: 140/105. Medication compliance: off BP medication for 5 year. No recent medication changes. Drinks 1 cup of coffee daily. PAST MEDICAL HISTORY Diagnosis Date Anxiety and depression Bipolar affective (HCC) Crohn's disease (HCC) Diverticulosis Hemorrhoid PAST SURGICAL HISTORY Procedure Laterality Date DILATION & CURETTAGE LIGATE FALLOPIAN TUBE WRIST LEFT OP SURGERY Right artery repair after cutting herself MEDICATIONS: hydrOXYzine pamoate (VISTARIL) 25 mg capsule Take 1 capsule by mouth twice daily as needed for anxiety. albuterol HFA (PROVENTIL HFA, VENTOLIN HFA) 90 mcg/actuation inhaler Inhale 2 Puffs as instructed every 6 hours as needed for wheezing/shortness of breath. lamoTRIgine (LAMICTAL) 100 mg tablet Take 1 tablet by mouth once daily. escitalopram oxalate (LEXAPRO) 20 mg tablet Take 1 tablet by mouth once daily. ondansetron orally disintegrating (ZOFRAN ODT) 4 mg disintegrating tablet Take 1 tablet by mouth every 8 hours as needed. fluticasone (FLONASE) 50 mcg/actuation nasal spray Use 2 Sprays in each nostril once daily. Rinse mouth after use. ibuprofen (MOTRIN ORAL) Take by mouth. ALLERGIES: ALLERGIES Allergen Reactions Amoxicillin Rash Tramadol Rash VITALS: BP 148/102 Pulse 92 Temp 36.2 C (97.1 F) Resp 16 Wt 86.2 kg (190 lb) LMP 02/09/2021 SpO2 97% BMI 32.61 kg/m Last 8 Encounter BP Readings: Date: BP: 08/06/2021 148/102 06/29/2021 126/78 05/22/2021 128/80 04/29/2021 122/70 02/23/2021 128/82 01/24/2021 118/64 01/15/2021 136/96 01/01/2021 124/80 PHYSICAL EXAM: GEN: pleasant, no acute distress, well nourished HEENT: PERRL, EOMI, MMM, NECK: supple, no lymphadenopathy, no thyromegaly HEART: regular rate, regular rhythm, no murmurs LUNGS: clear to auscultation, no wheezes or crackles, no increased WOB EXT: no clubbing, no cyanosis, no edema BACK: Normal curvature, no midine tenderness, no paraspinal tenderness NEURO: Alert and oriented to person, place, and time; DTR 2+/4 and strength 4/4 in upper and lower extremities, CN II-XII intact, gait normal PSYCH: normal mood, full range of affect, speech rate and content appropriate ASSESSMENT/PLAN: 1. Elevated blood pressure reading without diagnosis of hypertension - ICD9: 796.2, ICD10: R03.0 (primary diagnosis) 2. Headache, unspecified headache type - ICD9: 784.0, ICD10: R51.9 Normal physical exam. Suspect migraine. Trial excedrin migraine tonight. Seek ER evaluation for worsening headache, dizziness, nausea, vision change, numbness, weakness, or speech difficulty. Follow up with primary care tomorrow for BP and headache recheck. Mp Hernadez MD documented in this encounter [facility] Evaluation + Plan note No data available for this section [place] [facility] Diagnosis Migraine with aura, not intractable, without status migrainosus- Primary Primary hypertension Unspecified essential hypertension Obesity, Class I, BMI 30-34.9 Obesity, unspecified Bipolar affective disorder, remission status unspecified (HCC) [facility] Diagnosis Acute cough- Primary [facility] Diagnosis Dizziness- Primary Dizziness and giddiness Elevated blood pressure reading without diagnosis of hypertension [facility] Diagnosis Hypertension, essential- Primary Unspecified essential hypertension Headache, unspecified headache type [facility] Diagnosis Major depressive disorder, recurrent, moderate (HCC) [F33.1 (ICD-10-CM)]- Primary Major depressive disorder, recurrent episode, moderate Generalized anxiety disorder [F41.1 (ICD-10-CM)] Generalized anxiety disorder [facility] Diagnosis Hypertension, essential- Primary Unspecified essential hypertension Hyperlipidemia, mixed Mixed hyperlipidemia Obesity, Class I, BMI 30-34.9 Obesity, unspecified [facility] Diagnosis Left lower quadrant abdominal pain- Primary [facility] Diagnosis Viral URI with cough- Primary Acute upper respiratory infections of unspecified site Nausea and vomiting, unspecified vomiting type documented in this encounter [facility] note* Diagnosis Wheezing Mild intermittent asthma with acute exacerbation Unspecified asthma, with exacerbation documented in this encounter [facility] note* Diagnosis Sore throat- Primary Acute pharyngitis URI, acute Acute upper respiratory infections of unspecified site documented in this encounter [facility] note* Diagnosis Hip pain, acute, right- Primary documented in this encounter [facility] note* Diagnosis Hypertension, essential- Primary Unspecified essential hypertension documented in this encounter [facility] note* Diagnosis Acute midline thoracic back pain- Primary Strain of thoracic region, initial encounter documented in this encounter [facility] note* Diagnosis Essential (primary) hypertension- Primary Unspecified essential hypertension Right hand pain Pain in limb documented in this encounter [facility] note* Diagnosis Wheezing Mild intermittent asthma with acute exacerbation Unspecified asthma, with exacerbation documented in this encounter [facility] note* Diagnosis Neck pain on left side- Primary Cervicalgia Headache, unspecified headache type documented in this encounter [facility] note* Diagnosis Hypertension, essential Unspecified essential hypertension documented in this encounter [facility] note* Diagnosis Hypertension, essential Unspecified essential hypertension documented in this encounter [facility] note* Diagnosis Hypertension, essential Unspecified essential hypertension documented in this encounter [facility] note* Diagnosis Acute otitis media, right- Primary Unspecified otitis media URI, acute Acute upper respiratory infections of unspecified site documented in this encounter [facility] note* Diagnosis Gastroesophageal reflux disease without esophagitis Esophageal reflux Chronic nausea Nausea alone documented in this encounter [facility] note* Diagnosis Wheezing Mild intermittent asthma with acute exacerbation Unspecified asthma, with exacerbation documented in this encounter [facility] note* Diagnosis Hypertension, essential Unspecified essential hypertension documented in this encounter [facility] note* Diagnosis Hypertension, essential Unspecified essential hypertension documented in this encounter [facility] note* Diagnosis Hypertension, essential Unspecified essential hypertension documented in this encounter [facility] for referral (narrative)* Diagnostic Procedure Only (Urgent) - Closed Specialty Diagnoses / Procedures Referred By Contac t Referred To Contact XR IMAGING Diagnoses Hip pain, acute, right Procedures XR HIP GENERAL 3V PELV/AP/LAT RIGHT RADEX HIP UNILATERAL WITH PELVIS 2-3 VIEWS Carrillo Hudson APRN.PLACEMENT OFFICER [address] [place] [address] Xr Imaging Referral ID Status Reason Start Date Expiration Date V isits Requested Visits Authorized [id number] Closed Auto-Generate d Referral 05/10/2022 06/09/2023 1 1 [facility] for referral (narrative)* Diagnostic Procedure Only (Urgent) - Pending Review Specialty Diagnoses / Procedures Referred By Contac t Referred To Contact XR IMAGING Diagnoses Acute midline thoracic back pain Procedures XR THORACIC GENERAL 3V AP/LAT/SWIMMERS RADEX SPINE THORACIC 3 VIEWS [facility] [address] [place] [address] Xr Imaging Referral ID Status Reason Start Date Expiration Date Visits Requested Visits Authorized [id number] Pending Review Auto-Generat ed Referral 06/11/2022 07/11/2023 1 1 [facility] for referral (narrative)* Diagnostic Procedure Only (Routine) - Closed Specialty Diagnoses / Procedures Referred By Contac t Referred To Contact XR IMAGING Diagnoses Right hand pain Procedures XR HAND GENERAL 3V PA/LAT/OBL RIGHT RADEX HAND MINIMUM 3 VIEWS Michelle Grimm APRN.PLACEMENT OFFICER [address] [place] [address] Xr Imaging Referral ID Status Reason Start Date Expiration Date V isits Requested Visits Authorized [id number] Closed Auto-Generate d Referral 06/17/2022 07/17/2023 1 1 [facility] Summary Purpose Family History No Family History Records FoundNo Family History Records FoundNo Family History Records Found No data available for this section No Family History Records Found Advance Directives No Advanced Directives Records FoundNo Advanced Directives Records FoundNo Advanced Directives Records FoundNo Advanced Directives Records Found Medications Administered Section Inactive Administered Medications - up to 3 most recent administrations Medication Order MAR Action Action Date Dose Rate Site keTORolac 60 mg injection (TORADOL) 60 mg, INTRAMUSCULAR, ONCE, 1 dose, On Tu08/07/21 at 1130, Ketorolac (Toradol) is indicated for the short-term (up to 5 days) management of moderately severe acute pain. Continuation of ketorolac (Toradol) beyond 5 days increases the risk of developing serious adverse events. Please verify the duration of therapy for ketorolac (Toradol)., If ordered PRN for pain, patient/guardian may elect to receive this medication for higher pain levels if preferred: Yes Given 08/07/2021 11:11 AM EDT 60 mg Buttocks, Left Inactive Administered Medications - up to 3 most recent administrations Medication Order MAR Action Action Date Dose Rate Site keTORolac 30 mg injection (TORADOL) 30 mg, INTRAMUSCULAR, ONCE, 1 dose, On Fri01/28/22 at 0900, Ketorolac (Toradol) is indicated for the short-term (up to 5 days) management of moderately severe acute pain. Continuation of ketorolac (Toradol) beyond 5 days increases the risk of developing serious adverse events. Please verify the duration of therapy for ketorolac (Toradol), If ordered PRN for pain, patient/guardian may elect to receive this medication for higher pain levels INSTEAD of the opioid, if preferred: Yes Given 01/28/2022 8:57 AM EDT 30 mg Deltoid, Right Health Concerns Infection Onset Date Last Indicated Resolved Time COVID-19 Rule-Out 03/23/2022 03/23/2022 Infection Onset Date Last Indicated Resolved Time COVID-19 Rule-Out 04/19/2022 04/19/2022 Reason for Referral Specialty Diagnoses / Procedures Referred By Wilson arreola Referred To Contact Aaliyah Daniels APRN.PLACEMENT OFFICER [address] [place] [address] Referral ID Status Reason Start Date Expiration Date Visits Re quested Visits Authorized [id number] Closed 1 1 Specialty Diagnoses / Procedures Referred By Wilson arreola Referred To Contact Diagnoses Wheezing Mild intermittent asthma with acute exacerbation HollylogMichelle turcios APRN.PLACEMENT OFFICER [address] [place] [address] Referral ID Status Reason Start Date Expiration Date Visits Re quested Visits Authorized [id number] Closed 1 1 Additional Source Comments INFORMATION SOURCE (unrecogn ized section and content) DATE CREATED AUTHOR AUTHOR'S ORGANIZ ATION 05/25/2020 [facility] ([place]) DATE CREATED AUTHOR AUTHOR'S ORGANIZ ATION 12/21/2021 [facility] DATE CREATED AUTHOR AUTHOR'S ORGANIZ ATION 06/27/2023 [facility] Source Comments (unrecognize d section and content) In the event this informatio n is protected by the Federal Confidentiality of Alcohol and Drug Abuse Patient Records regulations: The Federal rules restrict any use of the information to criminally investigate or prosecute any alcohol or drug abuse patient.[facility] the event this information is protected by the Federal Confidentiality of Alcohol and Drug Abuse Patient Records regulations: The Federal rules restrict any use of the information to criminally investigate or prosecute any alcohol or drug abuse patient.[facility] HospitalIn the event this information is protected by the Federal Confidentiality of Alcohol and Drug Abuse Patient Records regulations: The Federal rules restrict any use of the information to criminally investigate or prosecute any alcohol or drug abuse patient.[facility] HospitalIn the event this information is protected by the Federal Confidentiality of Alcohol and Drug Abuse Patient Records regulations: The Federal rules restrict any use of the information to criminally investigate or prosecute any alcohol or drug abuse patient.[facility] HospitalIn the event this information is protected by the Federal Confidentiality of Alcohol and Drug Abuse Patient Records regulations: The Federal rules restrict any use of the information to criminally investigate or prosecute any alcohol or drug abuse patient.[facility] HospitalIn the event this information is protected by the Federal Confidentiality of Alcohol and Drug Abuse Patient Records regulations: The Federal rules restrict any use of the information to criminally investigate or prosecute any alcohol or drug abuse patient.[facility] HospitalIn the event this information is protected by the Federal Confidentiality of Alcohol and Drug Abuse Patient Records regulations: The Federal rules restrict any use of the information to criminally investigate or prosecute any alcohol or drug abuse patient.[facility] HospitalIn the event this information is protected by the Federal Confidentiality of Alcohol and Drug Abuse Patient Records regulations: The Federal rules restrict any use of the information to criminally investigate or prosecute any alcohol or drug abuse patient.[facility] HospitalIn the event this information is protected by the Federal Confidentiality of Alcohol and Drug Abuse Patient Records regulations: The Federal rules restrict any use of the information to criminally investigate or prosecute any alcohol or drug abuse patient.[facility] HospitalIn the event this information is protected by the Federal Confidentiality of Alcohol and Drug Abuse Patient Records regulations: The Federal rules restrict any use of the information to criminally investigate or prosecute any alcohol or drug abuse patient.[facility] HospitalIn the event this information is protected by the Federal Confidentiality of Alcohol and Drug Abuse Patient Records regulations: The Federal rules restrict any use of the information to criminally investigate or prosecute any alcohol or drug abuse patient.[facility] HospitalIn the event this information is protected by the Federal Confidentiality of Alcohol and Drug Abuse Patient Records regulations: The Federal rules restrict any use of the information to criminally investigate or prosecute any alcohol or drug abuse patient.[facility] HospitalIn the event this information is protected by the Federal Confidentiality of Alcohol and Drug Abuse Patient Records regulations: The Federal rules restrict any use of the information to criminally investigate or prosecute any alcohol or drug abuse patient.[facility] HospitalIn the event this information is protected by the Federal Confidentiality of Alcohol and Drug Abuse Patient Records regulations: The Federal rules restrict any use of the information to criminally investigate or prosecute any alcohol or drug abuse patient.[facility] HospitalIn the event this information is protected by the Federal Confidentiality of Alcohol and Drug Abuse Patient Records regulations: The Federal rules restrict any use of the information to criminally investigate or prosecute any alcohol or drug abuse patient.[facility] HospitalIn the event this information is protected by the Federal Confidentiality of Alcohol and Drug Abuse Patient Records regulations: The Federal rules restrict any use of the information to criminally investigate or prosecute any alcohol or drug abuse patient.[facility] HospitalIn the event this information is protected by the Federal Confidentiality of Alcohol and Drug Abuse Patient Records regulations: The Federal rules restrict any use of the information to criminally investigate or prosecute any alcohol or drug abuse patient.[facility] HospitalIn the event this information is protected by the Federal Confidentiality of Alcohol and Drug Abuse Patient Records regulations: The Federal rules restrict any use of the information to criminally investigate or prosecute any alcohol or drug abuse patient.[facility] HospitalIn the event this information is protected by the Federal Confidentiality of Alcohol and Drug Abuse Patient Records regulations: The Federal rules restrict any use of the information to criminally investigate or prosecute any alcohol or drug abuse patient.[facility] HospitalIn the event this information is protected by the Federal Confidentiality of Alcohol and Drug Abuse Patient Records regulations: The Federal rules restrict any use of the information to criminally investigate or prosecute any alcohol or drug abuse patient.[facility] HospitalIn the event this information is protected by the Federal Confidentiality of Alcohol and Drug Abuse Patient Records regulations: The Federal rules restrict any use of the information to criminally investigate or prosecute any alcohol or drug abuse patient.[facility] HospitalIn the event this information is protected by the Federal Confidentiality of Alcohol and Drug Abuse Patient Records regulations: The Federal rules restrict any use of the information to criminally investigate or prosecute any alcohol or drug abuse patient.[facility] HospitalIn the event this information is protected by the Federal Confidentiality of Alcohol and Drug Abuse Patient Records regulations: The Federal rules restrict any use of the information to criminally investigate or prosecute any alcohol or drug abuse patient.[facility] HospitalIn the event this information is protected by the Federal Confidentiality of Alcohol and Drug Abuse Patient Records regulations: The Federal rules restrict any use of the information to criminally investigate or prosecute any alcohol or drug abuse patient.[facility] HospitalIn the event this information is protected by the Federal Confidentiality of Alcohol and Drug Abuse Patient Records regulations: The Federal rules restrict any use of the information to criminally investigate or prosecute any alcohol or drug abuse patient.[facility] HospitalIn the event this information is protected by the Federal Confidentiality of Alcohol and Drug Abuse Patient Records regulations: The Federal rules restrict any use of the information to criminally investigate or prosecute any alcohol or drug abuse patient.[facility] HospitalIn the event this information is protected by the Federal Confidentiality of Alcohol and Drug Abuse Patient Records regulations: The Federal rules restrict any use of the information to criminally investigate or prosecute any alcohol or drug abuse patient.[facility] HospitalIn the event this information is protected by the Federal Confidentiality of Alcohol and Drug Abuse Patient Records regulations: The Federal rules restrict any use of the information to criminally investigate or prosecute any alcohol or drug abuse patient.[facility] HospitalIn the event this information is protected by the Federal Confidentiality of Alcohol and Drug Abuse Patient Records regulations: The Federal rules restrict any use of the information to criminally investigate or prosecute any alcohol or drug abuse patient.[facility] HospitalIn the event this information is protected by the Federal Confidentiality of Alcohol and Drug Abuse Patient Records regulations: The Federal rules restrict any use of the information to criminally investigate or prosecute any alcohol or drug abuse patient.[facility] HospitalIn the event this information is protected by the Federal Confidentiality of Alcohol and Drug Abuse Patient Records regulations: The Federal rules restrict any use of the information to criminally investigate or prosecute any alcohol or drug abuse patient.[facility] HospitalIn the event this information is protected by the Federal Confidentiality of Alcohol and Drug Abuse Patient Records regulations: The Federal rules restrict any use of the information to criminally investigate or prosecute any alcohol or drug abuse patient.[facility] HospitalIn the event this information is protected by the Federal Confidentiality of Alcohol and Drug Abuse Patient Records regulations: The Federal rules restrict any use of the information to criminally investigate or prosecute any alcohol or drug abuse patient.[facility] HospitalIn the event this information is protected by the Federal Confidentiality of Alcohol and Drug Abuse Patient Records regulations: The Federal rules restrict any use of the information to criminally investigate or prosecute any alcohol or drug abuse patient.[facility] HospitalIn the event this information is protected by the Federal Confidentiality of Alcohol and Drug Abuse Patient Records regulations: The Federal rules restrict any use of the information to criminally investigate or prosecute any alcohol or drug abuse patient.[facility] HospitalIn the event this information is protected by the Federal Confidentiality of Alcohol and Drug Abuse Patient Records regulations: The Federal rules restrict any use of the information to criminally investigate or prosecute any alcohol or drug abuse patient.[facility] HospitalIn the event this information is protected by the Federal Confidentiality of Alcohol and Drug Abuse Patient Records regulations: The Federal rules restrict any use of the information to criminally investigate or prosecute any alcohol or drug abuse patient.[facility] HospitalIn the event this information is protected by the Federal Confidentiality of Alcohol and Drug Abuse Patient Records regulations: The Federal rules restrict any use of the information to criminally investigate or prosecute any alcohol or drug abuse patient.[facility] HospitalIn the event this information is protected by the Federal Confidentiality of Alcohol and Drug Abuse Patient Records regulations: The Federal rules restrict any use of the information to criminally investigate or prosecute any alcohol or drug abuse patient.[facility] HospitalIn the event this information is protected by the Federal Confidentiality of Alcohol and Drug Abuse Patient Records regulations: The Federal rules restrict any use of the information to criminally investigate or prosecute any alcohol or drug abuse patient.[facility] HospitalIn the event this information is protected by the Federal Confidentiality of Alcohol and Drug Abuse Patient Records regulations: The Federal rules restrict any use of the information to criminally investigate or prosecute any alcohol or drug abuse patient.[facility] Reason for Visit (unrecogniz ed section and content) Reason Comments Recheck blood pressure Reason Comments Chest Congestion sore throat, cough x 1.5 weeks, left shoulder pain x 1 day Reason Comments ED Follow-up [facility] ER 01/24 Headache & elevated BP Specialty Diagnoses / Procedures Referred By Wilson arreola Referred To Contact Psych/Mental Health / ADULT PSYCHIATRY Diagnoses DBT IOP Intake Procedures VIDEO PSYC/PSYL Trinity Rojas APRN.PLACEMENT OFFICER [address] [place] [address] Barb Akers, [facility] [address] [place] [address] Referral ID Status Reason Start Date Expiration Date Visits Re quested Visits Authorized [id number] Closed 12/17/2021 05/11/2022 1 1 Reason Comments Medication Question Reason Comments Blood Pressure 2 week follow up Reason Comments Nausea & Vomiting Diarrhea, cough, noel ffy nose x1 day Reason Onset Date Comments Refill Request 03/26/2022 Reason Comments Pain, Throat Pt reported chest co ngestion, bilateral ear pressure x1 day. Reason Comments Right Hip Pain Slipped and fell Reason Comments Follow Up Hypertension High BP readings in the morning with frontal headaches X 1 wk Reason Comments Pain, Back X 1 day-was moving a mattress and heard a pop Reason Comments Follow Up BP Reason Comments Results Reason Onset Date Comments Refill Request 09/14/2022 Reason Comments Neck Pain headache with tingli ng in face and head x 2 days Reason Onset Date Comments Refill Request 10/06/2022 Reason Onset Date Comments Refill Request 11/07/2022 Reason Onset Date Comments Refill Request 12/21/2022 Reason Onset Date Comments Refill Request 02/14/2023 Reason Comments Nasal Congestion Headache, ear pain b ilat x 3 days Reason Onset Date Comments Refill Request 03/31/2023 Nataliia denied-ne eds appt Reason Onset Date Comments Refill Request 06/15/2023 Reason Onset Date Comments Refill Request 06/23/2023 Reason Onset Date Comments Refill Request 07/21/2023 Care Teams (unrecognized sec tion and content) Support Services Manager Relationship Specialty Start Date End Date April Corral MD [address] [place] [address] PCP - General Family Practice 10/31/20 Support Services Manager Relationship Specialty Start Date End Date April Corral MD [address] [place] [address] PCP - General Family Practice 10/31/20 Support Services Manager Relationship Specialty Start Date End Date April Corral MD [address] [facility] [place] [address] PCP - General Family Practice 10/31/20 Support Services Manager Relationship Specialty Start Date End Date April Corral MD [address] [facility] [place] [address] PCP - General Family Practice 10/31/20 Support Services Manager Relationship Specialty Start Date End Date April Corral MD [address] [facility] [place] [address] PCP - General Family Practice 10/31/20 Support Services Manager Relationship Specialty Start Date End Date April Corral MD [address] [place] [address] PCP - General Family Practice 10/31/20 Support Services Manager Relationship Specialty Start Date End Date April Corral MD [address] [facility] [place] [address] PCP - General Family Medicine 10/31/20 Support Services Manager Relationship Specialty Start Date End Date April Corral MD [address] [place] [address] PCP - General Family Medicine 10/31/20 Support Services Manager Relationship Specialty Start Date End Date April Corral MD [address] [facility] [place] [address] PCP - General Family Medicine 10/31/20 Support Services Manager Relationship Specialty Start Date End Date April Corral MD [address] [place] [address] PCP - General Family Medicine 10/31/20 Support Services Manager Relationship Specialty Start Date End Date April Corral MD [address] [facility] [place] [address] PCP - General Family Medicine 10/31/20 Support Services Manager Relationship Specialty Start Date End Date April Corral MD [address] [facility] [place] [address] PCP - General Family Medicine 10/31/20 Support Services Manager Relationship Specialty Start Date End Date April Corral MD [address] [facility] [place] [address] PCP - General Family Medicine 10/31/20 Support Services Manager Relationship Specialty Start Date End Date April Corral MD [facility] [place] [address] PCP - General Family Medicine 10/31/20 Support Services Manager Relationship Specialty Start Date End Date April Corral MD [address] [facility] [place] [address] PCP - General Family Medicine 10/31/20 Support Services Manager Relationship Specialty Start Date End Date April Corral MD [address] [facility] [place] [address] PCP - General Family Medicine 10/31/20 Support Services Manager Relationship Specialty Start Date End Date April Corral MD [address] [facility] [place] [address] PCP - General Family Medicine 10/31/20 Support Services Manager Relationship Specialty Start Date End Date April Corral MD [facility] [place] [address] PCP - General Family Medicine 10/31/20 Support Services Manager Relationship Specialty Start Date End Date April Corral MD [address] [facility] [place] [address] PCP - General Family Medicine 10/31/20 Support Services Manager Relationship Specialty Start Date End Date April Corral MD [address] [place] [address] PCP - General Family Medicine 10/31/20 Support Services Manager Relationship Specialty Start Date End Date April Corral MD [address] [place], [place] [address] [phone] PCP - General Family Medicine 10/31/20 Support Services Manager Relationship Specialty Start Date End Date April Corral MD [address] [place], [place] [id number] PCP - General Family Medicine 10/31/20 Trinity Herrera APRN.PLACEMENT OFFICER [address] [place] [address] Psychiatry 12/26/22 Support Services Manager Relationship Specialty Start Date End Date April Corral MD [address] [place], [place] [address] PCP - General Family Medicine 10/31/20 Trinity Herrera APRN.PLACEMENT OFFICER [address] [place] [address] Psychiatry 12/26/22 Support Services Manager Relationship Specialty Start Date End Date April Corral MD [address] [place], [place] [id number] PCP - General Family Medicine 10/31/20 Trinity Herrera APRN.PLACEMENT OFFICER [address] [place] [address] Psychiatry 12/26/22 Support Services Manager Relationship Specialty Start Date End Date April Corral MD [address] [place], [place] [address] PCP - General Family Medicine 10/31/20 Trinity Herrera APRN.PLACEMENT OFFICER [address] [place], [place] [id number] Psychiatry 12/26/22 Support Services Manager Relationship Specialty Start Date End Date April Corral MD [address] [place], [place] [address] PCP - General Family Medicine 10/31/20 Trinity Herrera APRN.PLACEMENT OFFICER [address] [place] [address] Psychiatry 12/26/22 Support Services Manager Relationship Specialty Start Date End Date April Corral MD [address] [place], [place] [id number] PCP - General Family Medicine 10/31/20 Trinity Herrera, VEL.PLACEMENT OFFICER [address] [place] [address] Psychiatry 12/26/22 Support Services Manager Relationship Specialty Start Date End Date April Corral MD [address] [place], [place] [id number] PCP - General Family Medicine 10/31/20 Trinity Herrera, VEL.PLACEMENT OFFICER [address] [place], [place] [id number] Psychiatry 12/26/22 Support Services Manager Relationship Specialty Start Date End Date April Corral MD [address] [place], [place] [address] PCP - General Family Medicine 10/31/20 Trinity Herrera APRN.PLACEMENT OFFICER [address] [place] [address] Psychiatry 12/26/22 Support Services Manager Relationship Specialty Start Date End Date April Corral MD [address] [place], [place] [address] PCP - General Family Medicine 10/31/20 Trinity Herrera APRN.PLACEMENT OFFICER [address] [place] [address] Psychiatry 12/26/22 FOR RECORDS PERTAINING TO PATIENTS WHO ARE OR HAVE BEEN ENROLLED IN A CHEMICAL DEPENDENCY/SUBSTANCEABUSE PROGRAM, SOME INFORMATION MAY BE OMITTED. This clinical summary was aggregated from multiple sources. Caution should be exercised in using it in the provision of clinical care. This summary normalizes information from multiple sources, and as a consequence, information in this document may materially change the coding, format and clinical context of patient data. In addition, data may be omitted in some cases. CLINICAL DECISIONS SHOULD BE BASED ON THE PRIMARY CLINICAL RECORDS. [facility] [employer] [facility]. provides no warranty or guarantee of the accuracy or completeness of information in this document.
--- NOTE | 2023-07-27 16:57 | CT_ITS ---
STUDY: CT ABDOMEN AND PELVIS WITH CONTRAST REASON FOR EXAM: Female, 38 years old. Abdominal pain RADIATION DOSAGE (If Supplied By Facility): CTDIvol = ( 17.1 ) mGy, DLP = ( 1059.14 ) mGycm TECHNIQUE: Transaxial images were obtained from the dome of the diaphragm to the symphysis pubis without oral contrast. IV 100mL Isovue-370 was administered. Sagittal and coronal images were reconstructed. Individualized dose optimization techniques were used for this CT. COMPARISON: February 13, 2023. FINDINGS: The visualized lung bases are unremarkable. The visualized portions of the heart are within normal limits. There is a subtle enhancing region along the periphery of the right hepatic lobe with central low attenuation in the liver. An area of focal nodular hyperplasia cannot be excluded. Correlate with ultrasound if needed. Normal gallbladder and extrahepatic biliary system. Normal spleen. Normal pancreas. 1.6 cm left adrenal soft tissue lesion. Normal right kidney. Normal left kidney. Normal visualized stomach. Normal small intestine. Diverticulosis of the colon. The appendix is visualized and appears normal. Normal abdominal aorta. Normal inferior vena cava. Normal retroperitoneum. Normal urinary bladder. Bilateral adnexal cystic lesions up to 2 cm. Mild pelvic fluid. Normal abdominal wall. Normal osseous structures. CT/Abdomen/Pelvis W IV Cont ONLY IMPRESSION: There is a subtle enhancing region along the periphery of the right hepatic lobe with central low attenuation in the liver. An area of focal nodular hyperplasia cannot be excluded. Correlate with ultrasound if needed. Colonic diverticulosis. Stable left adrenal lesion. Bilateral adnexal cystic lesions. Electronically Signed: El Cooper DO at 17:51 EDT ,
[2023-07-27] MEDS: Morphine 4 MG/ML Syringe IV (17:00)
[2023-07-27 17:26] VITALS: BP 139/64; PULSE 76; RESP 16; O2SAT 99
[2023-07-27 18:22] VITALS: BP 137/78; PULSE 76; RESP 16; TEMP 36.3; O2SAT 98
== END 2023-07-27 18:27 | disposition home or self-care (01) ==
PROVIDERS: Physician Assistant; Emergency Provider Student in an Organized Health Care Education/Training Program; PCP Nurse Practitioner Primary Care; Visit Provider Student in an Organized Health Care Education/Training Program
DX: F12.90 Cannabis use, unspecified, uncomplicated (principal); F31.9 Bipolar disorder, unspecified; K50.90 Crohn's disease, unspecified, without complications; R11.2 Nausea with vomiting, unspecified; R10.9 Unspecified abdominal pain; F17.210 Nicotine dependence, cigarettes, uncomplicated
CPT/HCPCS: 74177; 80053; 83690; 85025; 96361; 96372; 96374; 96375; 99283; J7030; Q9967

== ENCOUNTER → 2023-09-23 | Outpatient (CLI) | payer MEDICAID, SELFPAY | END | disposition home or self-care (01) | PROVIDERS: PCP Nurse Practitioner Primary Care; Referring Provider Internal Medicine Gastroenterology; Visit Provider Internal Medicine Gastroenterology | DX: K50.00 Crohn's disease of small intestine without complications (principal); F12.188 Cannabis abuse with other cannabis-induced disorder | CPT/HCPCS: 36415 ==

== ENCOUNTER 2023-11-27 12:05 | Emergency (ER) | payer MEDICAID, SELFPAY ==
[2023-11-27 12:05] VITALS: BP 115/86; PULSE 92; RESP 14; TEMP 36.7; O2SAT 99; BMI 32.4
--- NOTE | 2023-11-27 12:34 | ED.VIS.GI ---
HPI HPI - GI History of Present Illness Chief Complaint: Abd Pain Narrative Narrative: Patient presenting today with lower abdominal pain, nausea, vomiting, and diarrhea that started last night. She reports that her abdominal pain is crampy, she has had 3 episodes of vomiting, and multiple episodes of loose stool. Previous abdominal surgeries include tubal ligation and cholecystectomy. She does have a history of Crohn's disease on Stelara and does smoke marijuana daily. She follows with Dr. Ojeda. She reports that she has had symptoms similar to this many times in the past. She denies fevers, chills, hematemesis, melena, hematochezia, and urinary symptoms. [facility] Medical History Low iron Anemia Migraine headache Heartburn Asthma Hypertension Marijuana use History of blood transfusion Smoker Crohn's disease Cannabis hyperemesis syndrome concurrent with and due to cannabis abuse Bipolar 1 disorder Depression Anxiety Home Medications ?Medication ?Instructions ?Recorded ?Last Taken ?Type escitalopram oxalate 20 mg tablet 20 mg PO DAILY 08/15/21 Unknown History (Lexapro) hydroxyzine pamoate 25 mg capsule 25 mg PO QHS 08/15/21 Unknown History lamotrigine 100 mg tablet 200 mg PO DAILY 08/15/21 Unknown History (Lamictal) albuterol sulfate 90 mcg/actuation 1 inh inhalation Q6H PRN ASTHMA 10/24/22 Unknown History aerosol inhaler (Ventolin HFA) lisinopril 30 mg tablet 30 mg PO DAILY 10/24/22 Unknown History ciprofloxacin HCl 500 mg tablet 500 mg PO DAILY 10 days #10 tabs 11/23/22 Unknown Rx (Cipro) pantoprazole 40 mg tablet,delayed 40 mg PO Q12H #60 tabs 09/23/23 Unknown Rx release ondansetron 4 mg disintegrating 4 mg PO Q6H PRN nausea and 11/10/23 Unknown Rx tablet vomiting #60 tabs prochlorperazine maleate 10 mg 10 mg PO TID PRN nausea and 11/10/23 Unknown Rx tablet (Compazine) vomiting #90 tabs ustekinumab 90 mg/mL subcutaneous 90 mg subcut Q8W #1 mL 11/20/23 Unknown Rx syringe (Stelara) dicyclomine 10 mg capsule 10 mg PO TID PRN abdominal pain 11/27/23 Unknown Rx #20 caps ondansetron 4 mg disintegrating 4 mg PO Q8H PRN PRN Nausea #10 tabs 11/27/23 Unknown Rx tablet Allergy/AdvReac Type Severity Reaction Status Date / Time amoxicillin Allergy Rash Verified 11/27/23 12:05 tramadol Allergy Rash Verified 11/27/23 12:05 Family History Mother Mental disorder Surgical History S/P ERCP S/P laparoscopic cholecystectomy History of esophagogastroduodenoscopy (EGD) Social History household members: children Smoking Status: Current every day smoker tobacco type: cigarettes substance use type: does not use ROS ROS ED Constitutional Constitutional ED: Denies chills or fever(s) Cardiovascular Cardiovascular: Denies chest pain Respiratory/Chest Respiratory/Chest: Denies dyspnea Gastrointestinal Gastrointestinal: Reports abdominal pain, diarrhea, nausea and vomiting; Denies melena Genitourinary Genitourinary ED: Denies dysuria, hematuria or urinary urgency Musculoskeletal Musculoskeletal: Denies arthralgias or myalgias Integumentary Denies rash Neurologic Neurologic: Denies weakness EXAM Physical Exam Const Vital Signs: 11/27/23 12:05 11/27/23 14:05 Temperature 98.1 F 96.5 F L Temperature Source Temporal Pulse Rate 92 64 Respiratory Rate 14 18 Blood Pressure 115/86 H 102/70 Blood Pressure Mean 95 80 Pulse Ox 99 100 Oxygen Delivery Method Room Air Positive well nourished, well developed and no apparent distress General Appearance ED: well developed HEENT Reports normocephalic and head/scalp atraumatic Mouth ED: Yes moist mucous membranes normal Eyes PERRL and EOMs intact bilaterally Neck full ROM and supple Chest Wall inspection of chest normal Resp normal respiratory effort and clear to auscultation bilaterally Cardio regular rate and regular rhythm GI soft to palpation, non-distended and no masses GI Narrative: Minimal tenderness across the lower abdomen, no rigidity or guarding. Back/Spine normal ROM and normal to inspection Extremity normal to inspection and full ROM Neuro oriented x3, CN's II-XII intact bilaterally, moves all extremities, no focal motor deficits and no sensory deficits noted Sensorium / Orientation: awake and alert Psych mental status grossly normal and thought process normal Skin no rashes or lesions noted and no wounds MDM MDM MDM Narrative Medical decision making narrative: Patient presenting with lower abdominal pain, nausea, vomiting, and diarrhea that started yesterday. She is well-appearing and in no acute distress. She has a nonsurgical abdomen. She has been seen here in the past many times for similar symptoms and has had multiple CT scans of her abdomen. Patient was given IV fluids, Toradol, Bentyl, and Zofran. CBC, CMP, lipase are unremarkable. Urine negative for UTI. On reexamination she does report improvement of her symptoms. Her abdomen remains soft and nontender. She is tolerating p.o. fluids. This is likely a Crohn's flare, or gastroenteritis, when reviewing her chart she does have a history of cannabis hyperemesis syndrome which could also be the cause of her symptoms. Marijuana cessation was encouraged. She will be given prescriptions for Zofran and Bentyl. I encouraged that she follow-up with Dr. Ojeda or her PCP. She will be discharged in stable condition. Lab Data Attestation: I reviewed the patient's lab results. Lab results narrative: H&H 11.5 and 34.4 Labs: Laboratory Results - last 24 hr 11/27/23 12:45 WBC 6.6 RBC 3.73 L Hgb 11.5 L Hct 34.4 L MCV 92.2 MCH 30.8 MCHC 33.4 RDW Std Deviation 44.3 H RDW Coeff of Kim 13.1 Plt Count 410 MPV 9.0 Immature Gran % (Auto) 0.300 Neut % (Auto) 61.5 Lymph % (Auto) 31.5 [place] % (Auto) 5.4 Eos % (Auto) 0.8 Baso % (Auto) 0.5 Absolute Neuts (auto) 4.1 Absolute Lymphs (auto) 2.09 Nucleated RBC % 0 Sodium 138 Potassium 3.9 Chloride 106 Carbon Dioxide 25.0 Anion Gap 7 BUN 8 Creatinine 0.97 Estim Creat Clear Calc 79.46 Est GFR (MDRD) Af Amer 82 Est GFR (MDRD) Non-Af 68 BUN/Creatinine Ratio 8.3 L Glucose 87 Calcium 9.0 Total Bilirubin 0.20 AST 16 ALT 21 Alkaline Phosphatase 83 Total Protein 7.2 Albumin 3.6 Globulin 3.6 Albumin/Globulin Ratio 1.0 Lipase 18 Serum , Qual NEGATIVE Urine Color Yellow Urine Clarity Clear Urine pH 6.5 Ur Specific [place] 1.015 Urine Protein Negative Urine Glucose (UA) Normal Urine Ketones 5 H Urine Occult Blood 50 H Urine Nitrite Negative Urine Bilirubin Negative Urine Urobilinogen 1 H Ur Leukocyte Esterase 25 H Urine RBC 0-5 SEEN Urine WBC 0-5 SEEN Ur Squamous Epith Cells 0-5 SEEN Urine Bacteria RARE Urine Mucus 0 SEEN Discharge Plan Triage Chief Complaint: Abd Pain ED Midlevel Provider: Krystle Schafer ED Provider: Lissa Mcbride Dx/Rx/DC Orders Clinical Impression: Crohn's disease, Abdominal pain, Nausea Instructions: Cannabinoid Hyperemesis Syndrome, Crohns Disease Dc Prescriptions: New ondansetron 4 mg tablet,disintegrating 4 mg PO Q8H PRN PRN (Reason: Nausea) Qty: 10 0RF dicyclomine 10 mg capsule 10 mg PO TID PRN (Reason: abdominal pain) Qty: 20 0RF No Action hydroxyzine pamoate 25 mg capsule 25 mg PO QHS pantoprazole 40 mg tablet,delayed release (DR/EC) 40 mg PO Q12H Qty: 60 3RF escitalopram oxalate [Lexapro] 20 mg tablet 20 mg PO DAILY lamotrigine [Lamictal] 100 mg tablet 200 mg PO DAILY lisinopril 30 mg Tablet 30 mg PO DAILY albuterol sulfate [Ventolin HFA] 90 mcg/actuation Hfa Aerosol Inhaler 1 inh INHALATION Q6H PRN (Reason: ASTHMA) ciprofloxacin HCl [Cipro] 500 mg tablet 500 mg PO DAILY 10 Days Qty: 10 0RF prochlorperazine maleate [Compazine] 10 mg tablet 10 mg PO TID PRN (Reason: nausea and vomiting) Qty: 90 5RF ondansetron 4 mg tablet,disintegrating 4 mg PO Q6H PRN (Reason: nausea and vomiting) Qty: 60 3RF Stelara 90 mg/mL syringe 90 mg subcut Q8W Qty: 1 5RF Rx Instructions: Crohn's Primary Care Provider: Michelle Grimm NP Referrals: Michelle Grimm NP, BODY [employer]AME TECHNICIAN-C [Primary Care Provider] - Activity Restrictions/Additional Instructions: Follow-up with your PCP and/or Dr. Ojeda. Return for any worsening of your symptoms. Print Language: Italian Disposition Disposition: Home, Self Care Discharge Date/Time: 11/27/23 14:29
[2023-11-27] MEDS: 0.9% Normal Saline (1000mL) 1,000 ML 999 ML IV (12:45)
[2023-11-27] MEDS: Ondansetron 4 MG/2 ML Vial IV (12:45)
[2023-11-27] MEDS: Ketorolac 15 MG/ML Vial IV (12:45)
[2023-11-27 12:55] LABS: Mucous, Urine 0 SEEN /hpf (<or=2+)
[2023-11-27 12:57] LABS: Color, Urine Yellow (Yellow); Glucose, Dipstick Normal (Normal); Ketone-Dipstick 5 mg/dl (Negative); Leukocyte Esterase-Dipstick 25 /ul (Negative); Nitrite-Dipstick Negative (Negative); Occult Blood-Urine 50 /ul (Negative); Protein-Dipstick Negative (Negative); Specific Gravity, Urine 1.015 (1.002-1.030); Urine Bilirubin Dipstick Negative (Negative); Urine Clarity Clear (Clear); Urine Urobilinogen 1 mg/dl (Normal); Urine pH 6.5 (5.0 - 8.0)
[2023-11-27 13:02] LABS: Absolute Lymphocyte Count 2.09 X10^3/uL (0.83-4.51); Absolute Neutrophil Count 4.1 X10^3/uL (2.0-7.7); Basophil# 0.03 X10^3/uL; Basophil% 0.5 % (0-1); Eosinophil# 0.05 X10^3/uL; Eosinophils% 0.8 % (0-5); Hematocrit 34.4 % (37-47); Hemoglobin 11.5 g/dL (12.0-15.0); Lymphocyte # 2.09 X10^3/ul (0.83-4.51); Lymphocyte % 31.5 % (19-41); Mean Corp Hgb Conc 33.4 g/dL (32-36); Mean Corpuscular Hgb 30.8 pg (27.0-32.0); Mean Corpuscular Volume 92.2 fL (81-99); Monocyte# 0.36 X10^3/uL; Monocyte% 5.4 % (0-10); NRBC Flagged by Analyzer 0 % (0-5); Neutrophil # 4.08 X10^3/uL (2.7-7.7); Neutrophil % 61.5 % (47-70); Platelet Count 410 K/mm3 (150-450); RBC Distribution Width CV 13.1 % (11.6-14.6); RBC Distribution Width SD 44.3 fl (35.1-43.9); Red Blood Count 3.73 M/mm3 (4.2-5.4); White Blood Count 6.6 K/mm3 (4.4-11.0)
[2023-11-27 13:06] LABS: Bacteria RARE /hpf (None Seen); Red Blood Cells-Urine 0-5 SEEN /hpf (0-5); Squamous Epithelial Cells - UA 0-5 SEEN /hpf (5-10); White Blood Cells 0-5 SEEN /hpf (0-5)
[2023-11-27 13:07] LABS: Internal QC Validated? YES +Cl - CLEAR BKGD; Pregnancy, Serum, hCG Quali. NEGATIVE Negative
[2023-11-27] MEDS: Dicyclomine 20 MG/2 ML Vial IM (13:15)
[2023-11-27 13:34] LABS: AST(SGOT) 16 U/L (15-37); Alanine Aminotransfer ALT/SGPT 21 U/L (13-56); Albumin, Serum 3.6 g/dL (3.2-5.0); Alkaline Phosphatase 83 U/L (45-117); Anion Gap 7 (5-15); BUN 8 mg/dL (7-18); BUN/Creat Ratio 8.3 RATIO (10-20); Chloride 106 mmol/L (98-107); Creatinine, Serum 0.97 mg/dL (0.55-1.02); EST Glomerular Filtration Rate 68 mL/min (>60); Est Glom Filt Rate - Afr Amer 82 mL/min (>60); Estimated Creatinine Clearance 79.46 ml/min; Globulin 3.6 g/dL (2.2-4.2); Glucose 87 mg/dL (74-106); Lipase 18 U/L (13-75); Potassium 3.9 mmol/L (3.5-5.1); Protein, Total 7.2 g/dL (6.4-8.2); Sodium Level 138 mmol/L (136-145)
[2023-11-27 14:05] VITALS: BP 102/70; PULSE 64; RESP 18; TEMP 35.8; O2SAT 100
== END 2023-11-27 14:29 | disposition home or self-care (01) ==
PROVIDERS: Physician Assistant; Emergency Provider Emergency Medicine; PCP Nurse Practitioner Primary Care; Visit Provider Emergency Medicine
DX: K50.90 Crohn's disease, unspecified, without complications (principal); F31.9 Bipolar disorder, unspecified; I10 Essential (primary) hypertension; F41.9 Anxiety disorder, unspecified; F17.210 Nicotine dependence, cigarettes, uncomplicated; Z79.899 Other long term (current) drug therapy
CPT/HCPCS: 80053; 81001; 83690; 84703; 85025; 96361; 96372; 96374; 96375; 99282; J7030; A4216; J2405

== ENCOUNTER 2023-12-13 10:20 | Emergency (ER) | payer MEDICAID, SELFPAY ==
[2023-12-13 10:21] VITALS: BP 124/83; PULSE 93; RESP 15; TEMP 36.1; O2SAT 97; BMI 31.8
[2023-12-13 10:23] VITALS: BP 124/83; PULSE 97; RESP 16; TEMP 36.1; O2SAT 99
--- NOTE | 2023-12-13 10:34 | CT_ITS ---
STUDY: CT ABDOMEN AND PELVIS WITH CONTRAST REASON FOR EXAM: Female, 38 years old. Nausea, vomiting, diarrhea RADIATION DOSAGE (If Supplied By Facility): CTDIvol = ( 13.61 ) mGy, DLP = ( 856.76 ) mGycm TECHNIQUE: IV 100mL Isovue-370 was administered. Transaxial images were obtained from the dome of the diaphragm to the symphysis pubis. Multiplanar coronal and sagittal images were reformatted. The protocol utilizes one or more of the following dose reduction techniques: automated exposure control, adjustment of mA and/or kV according to patient size,and/or use of iterative reconstruction technique. COMPARISON: Prior study dated: 07/27/2023 FINDINGS: The visualized lung bases are unremarkable. The visualized portions of the heart are within normal limits. The small hypodensity in the anterior segment of proximal to the liver unchanged. There is non-visualization of the gallbladder, which may be secondary to either contraction or a prior cholecystectomy. Normal spleen. Normal pancreas. Unremarkable right adrenal gland. Stable 1.6 cm left adrenal mass likely due to adenoma. Further follow-up exam in one year is recommended. Unremarkable kidneys. No evidence of hydronephrosis. Normal visualized stomach. Normal caliber small bowel loops. Mild diverticulosis of the sigmoid colon. No evidence of acute diverticulitis. The appendix is visualized and appears normal. Normal abdominal aorta. No retroperitoneal adenopathy. Normal urinary bladder. Metallic clips in the pelvic region likely from previous bilateral tubal ligation. Small bilateral adnexal cyst/prominent follicles. There is a small umbilical hernia containing fat. Normal osseous structures. CT/Abdomen/Pelvis W IV Cont ONLY IMPRESSION: 1. No focal acute inflammatory process. 2. Stable left adrenal mass. Further follow-up exam in one year is recommended. Electronically Signed: Tony Goldstein MD at 12:01 EDT ,
--- NOTE | 2023-12-13 10:37 | ED.VIS.GI ---
HPI HPI - GI History of Present Illness Chief Complaint: Abd Pain Narrative Narrative: 38-year-old female past medical history of Crohn disease, cannabis hyperemesis syndrome presents with nausea, vomiting, and diarrhea that started this morning. She states she started having left lower quadrant abdominal pain yesterday evening but it was manageable. This morning she awoke and has had multiple episodes of watery stool, without any blood in her feces. Additionally, she vomited 4 times. The last time she smoked marijuana was this morning. She states that past abdominal surgery includes cholecystectomy and bilateral tubal ligation, and she sees Dr. Ojeda regarding her Crohn disease. She is not currently on steroids. She was last seen for a flare in the emergency department a few weeks ago where she received Bentyl and antinausea medication. She denies any fevers or chills. No exacerbating or alleviating factors. [facility] Medical History Low iron Anemia Migraine headache Heartburn Asthma Hypertension Marijuana use History of blood transfusion Smoker Crohn's disease Cannabis hyperemesis syndrome concurrent with and due to cannabis abuse Bipolar 1 disorder Depression Anxiety Home Medications ?Medication ?Instructions ?Recorded ?Last Taken ?Type escitalopram oxalate 20 mg tablet 20 mg PO DAILY 08/15/21 Unknown History (Lexapro) hydroxyzine pamoate 25 mg capsule 25 mg PO QHS 08/15/21 Unknown History lamotrigine 100 mg tablet 200 mg PO DAILY 08/15/21 Unknown History (Lamictal) albuterol sulfate 90 mcg/actuation 1 inh inhalation Q6H PRN ASTHMA 10/24/22 Unknown History aerosol inhaler (Ventolin HFA) lisinopril 30 mg tablet 30 mg PO DAILY 10/24/22 Unknown History ciprofloxacin HCl 500 mg tablet 500 mg PO DAILY 10 days #10 tabs 11/23/22 Unknown Rx (Cipro) pantoprazole 40 mg tablet,delayed 40 mg PO Q12H #60 tabs 09/23/23 Unknown Rx release ondansetron 4 mg disintegrating 4 mg PO Q6H PRN nausea and 11/10/23 Unknown Rx tablet vomiting #60 tabs prochlorperazine maleate 10 mg 10 mg PO TID PRN nausea and 11/10/23 Unknown Rx tablet (Compazine) vomiting #90 tabs ustekinumab 90 mg/mL subcutaneous 90 mg subcut Q8W #1 mL 11/20/23 Unknown Rx syringe (Stelara) dicyclomine 10 mg capsule 10 mg PO TID PRN abdominal pain 11/27/23 Unknown Rx #20 caps ondansetron 4 mg disintegrating 4 mg PO Q8H PRN PRN Nausea #10 tabs 11/27/23 Unknown Rx tablet dicyclomine 20 mg tablet 20 mg PO TID PRN abdominal pain 12/13/23 Unknown Rx #20 tabs Allergy/AdvReac Type Severity Reaction Status Date / Time amoxicillin Allergy Rash Verified 12/13/23 10:23 tramadol Allergy Rash Verified 12/13/23 10:23 Family History Mother Mental disorder Surgical History S/P ERCP S/P laparoscopic cholecystectomy History of esophagogastroduodenoscopy (EGD) Social History household members: children Smoking Status: Current every day smoker tobacco type: cigarettes substance use type: does not use ROS ROS ED ROS Narrative Constitutional: No fever, no chills. HEENT: No sore throat. No neck pain. No loss of vision. No rhinorrhea. Cardiovascular: No chest pain. No palpitations. No pedal edema. Respiratory: No cough, no shortness of breath. Abdominal: Left lower quadrant abdominal pain. 4 episodes of nonbloody emesis. Multiple episodes of watery stool, no blood. Genitourinary: No dysuria. No hematuria. Musculoskeletal: No myalgias. No arthralgias. Neurologic: No headaches. No dizziness. No lightheadedness. Skin: No rash. No change in color. Psychiatric: No depression. No anxiety. EXAM Physical Exam Narrative Exam Narrative: Afebrile. Vital signs noted. HEENT: Normocephalic. Atraumatic. PERRL, EOMI. Neck soft and supple. No point tenderness or step off. Cardiovascular: Regular rate and rhythm. No murmurs, rubs, or gallops appreciated. Respiratory: No tachypnea. Lungs clear to auscultation bilaterally. Gastrointestinal: Abdomen soft, mild tenderness to palpation left lower quadrant of abdomen, with normoactive bowel sounds. No rebound or guarding. Neurological: Awake. Alert. Nonfocal, nonlateralizing. Skin: No rash. Normal color. No pallor. Musculoskeletal: No pedal edema. Full range of motion extremities. Const Vital Signs: 12/13/23 10:21 12/13/23 10:23 Temperature 96.9 F L 96.9 F L Temperature Source Temporal Temporal Pulse Rate 93 97 Respiratory Rate 15 16 Blood Pressure 124/83 H 124/83 H Blood Pressure Mean 96 96 Pulse Ox 97 99 Oxygen Delivery Method Room Air Room Air MDM MDM MDM Narrative Medical decision making narrative: Differential diagnosis includes but not limited to Crohn exacerbation versus cannabis hyperemesis versus gastroenteritis versus diverticulitis. I reviewed her prior records. Her labs were checked as well. Given her left lower quadrant pain, I do feel that this time CT imaging should be performed to rule out any abscess or colitis requiring antibiotics. I reviewed her laboratory work, and she has normal white count of 6.6, hemoglobin 12.4 with hematocrit 37.8, platelet count normal at 415. Electrolyte panel shows normal sodium of 139 with potassium 3.9, chloride 107, BUN of 11 and creatinine 0.88. Glucose is appropriately elevated at 96, LFTs are within normal limits, lipase normal at 16 so I doubt pancreatitis. Serum test is negative. I reviewed the radiology report of the CT of the abdomen and pelvis there is a stable adrenal mass, no inflammatory process or obstruction. At this point in time, she will be given Toradol for her pain as well as intramuscular Bentyl. I do not feel that she requires any antibiotics, nor do I feel that she needs admission. I wrote her a prescription for more Bentyl as she states she has antiemetics at home. She will follow-up with gastroenterology as soon as possible. I feel she be discharged to follow-up. Return instructions reviewed. Disposition is discharged home in stable condition. History & Record Review Discussion w/independent historian: Patient Additional record(s) reviewed:: Prior ED visit (Multiple visits for Crohn disease and hyperemesis secondary to cannabinoid) and Prior labs Lab Data Attestation: I reviewed the patient's lab results. Labs: Laboratory Results - last 24 hr 12/13/23 10:28 WBC 6.6 RBC 4.11 L Hgb 12.4 Hct 37.8 MCV 92.0 MCH 30.2 MCHC 32.8 RDW Std Deviation 43.9 RDW Coeff of Kim 13.1 Plt Count 415 MPV 9.0 Immature Gran % (Auto) 0.300 Neut % (Auto) 52.5 Lymph % (Auto) 36.7 [place] % (Auto) 8.8 Eos % (Auto) 0.9 Baso % (Auto) 0.8 Absolute Neuts (auto) 3.4 Absolute Lymphs (auto) 2.41 Nucleated RBC % 0 Sodium 139 Potassium 3.9 Chloride 107 Carbon Dioxide 26.0 Anion Gap 6 BUN 11 Creatinine 0.88 Estim Creat Clear Calc 86.85 Est GFR (MDRD) Af Amer 91 Est GFR (MDRD) Non-Af 75 BUN/Creatinine Ratio 12.4 Glucose 96 Calcium 9.2 Total Bilirubin 0.20 AST 16 ALT 23 Alkaline Phosphatase 87 Total Protein 7.8 Albumin 3.9 Globulin 3.9 Albumin/Globulin Ratio 1.0 Lipase 16 Serum , Qual NEGATIVE Radiography Diagnostic Testing: Clinical Impression(s) from Imaging Studies Abdomen/Pelvis CT 12/13/23 10:34 IMPRESSION: 1. No focal acute inflammatory process. 2. Stable left adrenal mass. Further follow-up exam in one year is recommended. Electronically Signed: Tony Goldstein MD at 12:01 EDT , Discharge Plan Triage Chief Complaint: Abd Pain ED Provider: Maverick Avery Dx/Rx/DC Orders Clinical Impression: Abdominal pain, Cannabis hyperemesis syndrome concurrent with and due to cannabis abuse, Nausea, vomiting, and diarrhea Instructions: Cannabinoid Hyperemesis Syndrome, ED Abdominal Pain Unkn Cause Fem, ED Gastroenteritis, Viral (Adult) Prescriptions: New dicyclomine 20 mg tablet 20 mg PO TID PRN (Reason: abdominal pain) Qty: 20 0RF No Action hydroxyzine pamoate 25 mg capsule 25 mg PO QHS pantoprazole 40 mg tablet,delayed release (DR/EC) 40 mg PO Q12H Qty: 60 3RF escitalopram oxalate [Lexapro] 20 mg tablet 20 mg PO DAILY lamotrigine [Lamictal] 100 mg tablet 200 mg PO DAILY lisinopril 30 mg Tablet 30 mg PO DAILY albuterol sulfate [Ventolin HFA] 90 mcg/actuation Hfa Aerosol Inhaler 1 inh INHALATION Q6H PRN (Reason: ASTHMA) ciprofloxacin HCl [Cipro] 500 mg tablet 500 mg PO DAILY 10 Days Qty: 10 0RF ondansetron 4 mg tablet,disintegrating 4 mg PO Q8H PRN PRN (Reason: Nausea) Qty: 10 0RF dicyclomine 10 mg capsule 10 mg PO TID PRN (Reason: abdominal pain) Qty: 20 0RF prochlorperazine maleate [Compazine] 10 mg tablet 10 mg PO TID PRN (Reason: nausea and vomiting) Qty: 90 5RF ondansetron 4 mg tablet,disintegrating 4 mg PO Q6H PRN (Reason: nausea and vomiting) Qty: 60 3RF Stelara 90 mg/mL syringe 90 mg subcut Q8W Qty: 1 5RF Rx Instructions: Crohn's Stand Alone Forms: ED Work / School Excuse Primary Care Provider: Michelle Grimm NP Referrals: Kenn Ojeda DO [Med Staff - Active Staff] - As soon as possible Michelle Grimm NP, SAFETY TEACHER-C [Primary Care Provider] - Print Language: Emirati Disposition Disposition: Home, Self Care
[2023-12-13 10:44] LABS: Absolute Lymphocyte Count 2.41 X10^3/uL (0.83-4.51); Absolute Neutrophil Count 3.4 X10^3/uL (2.0-7.7); Basophil# 0.05 X10^3/uL; Basophil% 0.8 % (0-1); Eosinophil# 0.06 X10^3/uL; Eosinophils% 0.9 % (0-5); Hematocrit 37.8 % (37-47); Hemoglobin 12.4 g/dL (12.0-15.0); Lymphocyte # 2.41 X10^3/ul (0.83-4.51); Lymphocyte % 36.7 % (19-41); Mean Corp Hgb Conc 32.8 g/dL (32-36); Mean Corpuscular Hgb 30.2 pg (27.0-32.0); Monocyte# 0.58 X10^3/uL; Monocyte% 8.8 % (0-10); NRBC Flagged by Analyzer 0 % (0-5); Neutrophil # 3.44 X10^3/uL (2.7-7.7); Neutrophil % 52.5 % (47-70); Platelet Count 415 K/mm3 (150-450); RBC Distribution Width CV 13.1 % (11.6-14.6); RBC Distribution Width SD 43.9 fl (35.1-43.9); Red Blood Count 4.11 M/mm3 (4.2-5.4); White Blood Count 6.6 K/mm3 (4.4-11.0)
[2023-12-13] MEDS: 0.9% Normal Saline (1000mL) 1,000 ML 999 ML IV (10:47)
[2023-12-13] MEDS: LORazepam 2 MG/ML Syringe 1 MG IV (10:48)
[2023-12-13] MEDS: Ondansetron 4 MG/2 ML Vial IV (10:48)
[2023-12-13 10:52] LABS: Internal QC Validated? YES +Cl - CLEAR BKGD; Pregnancy, Serum, hCG Quali. NEGATIVE Negative
[2023-12-13 10:59] LABS: AST(SGOT) 16 U/L (15-37); Alanine Aminotransfer ALT/SGPT 23 U/L (13-56); Albumin, Serum 3.9 g/dL (3.2-5.0); Alkaline Phosphatase 87 U/L (45-117); Anion Gap 6 (5-15); BUN 11 mg/dL (7-18); BUN/Creat Ratio 12.4 RATIO (10-20); Calcium,Total 9.2 mg/dL (8.5-10.1); Chloride 107 mmol/L (98-107); Creatinine, Serum 0.88 mg/dL (0.55-1.02); EST Glomerular Filtration Rate 75 mL/min (>60); Est Glom Filt Rate - Afr Amer 91 mL/min (>60); Estimated Creatinine Clearance 86.85 ml/min; Globulin 3.9 g/dL (2.2-4.2); Glucose 96 mg/dL (74-106); Lipase 16 U/L (13-75); Potassium 3.9 mmol/L (3.5-5.1); Protein, Total 7.8 g/dL (6.4-8.2); Sodium Level 139 mmol/L (136-145)
[2023-12-13] MEDS: Famotidine 200 MG/20 ML MDV 20 MG in 0.9% Normal Saline (Pres. free 8 ML 300 MG IV (11:10)
[2023-12-13] MEDS: Dicyclomine 20 MG/2 ML Vial IM (12:11)
[2023-12-13] MEDS: Ketorolac 30 MG/ML Syringe IV (12:11)
[2023-12-13 12:21] VITALS: BP 140/90; PULSE 73; RESP 16; TEMP 35.8; O2SAT 96
[2023-12-13 12:35] VITALS: BP 140/90; PULSE 73; RESP 16; TEMP 36.6; O2SAT 99
== END 2023-12-13 12:40 | disposition home or self-care (01) ==
PROVIDERS: Emergency Provider Emergency Medicine; PCP Nurse Practitioner Primary Care; Visit Provider Emergency Medicine
DX: R10.32 Left lower quadrant pain (principal); K50.90 Crohn's disease, unspecified, without complications; F12.188 Cannabis abuse with other cannabis-induced disorder; F31.9 Bipolar disorder, unspecified; R11.2 Nausea with vomiting, unspecified; R19.7 Diarrhea, unspecified; I10 Essential (primary) hypertension; F17.210 Nicotine dependence, cigarettes, uncomplicated; Z79.899 Other long term (current) drug therapy
CPT/HCPCS: 74177; 80053; 83690; 84703; 85025; 96361; 96372; 96374; 96375; 99283; J7030; Q9967; J2405; J3490

== ENCOUNTER 2024-01-09 08:52 | Emergency (ER) | payer MEDICAID, SELFPAY ==
[2024-01-09 08:53] VITALS: BP 122/90; PULSE 87; RESP 16; TEMP 36; O2SAT 99; BMI 32.0
[2024-01-09] MEDS: Haloperidol Lactate 5 MG/ML Vial 1 MG IV (10:08)
[2024-01-09] MEDS: 0.9% Normal Saline (1000mL) 1,000 ML 999 ML IV (10:08)
[2024-01-09] MEDS: Morphine 4 MG/ML Syringe IV (10:08)
[2024-01-09 10:10] LABS: Absolute Lymphocyte Count 2.15 X10^3/uL (0.83-4.51); Absolute Neutrophil Count 2.5 X10^3/uL (2.0-7.7); Basophil# 0.05 X10^3/uL; Basophil% 0.9 % (0-1); Eosinophil# 0.07 X10^3/uL; Eosinophils% 1.3 % (0-5); Hematocrit 38.3 % (37-47); Hemoglobin 12.5 g/dL (12.0-15.0); Lymphocyte # 2.15 X10^3/ul (0.83-4.51); Lymphocyte % 40.8 % (19-41); Mean Corp Hgb Conc 32.6 g/dL (32-36); Mean Corpuscular Volume 92.1 fL (81-99); Mean Platelet Vol. 9.5 fl (6.2-12.0); Monocyte# 0.48 X10^3/uL; Monocyte% 9.1 % (0-10); NRBC Flagged by Analyzer 0 % (0-5); Neutrophil % 47.5 % (47-70); Platelet Count 451 K/mm3 (150-450); RBC Distribution Width SD 43.8 fl (35.1-43.9); Red Blood Count 4.16 M/mm3 (4.2-5.4); White Blood Count 5.3 K/mm3 (4.4-11.0)
[2024-01-09 10:25] LABS: ALB/GLOB Ratio 0.9 RATIO (0.9-2.4); AST(SGOT) 18 U/L (15-37); Alanine Aminotransfer ALT/SGPT 21 U/L (13-56); Albumin, Serum 3.8 g/dL (3.2-5.0); Alkaline Phosphatase 87 U/L (45-117); Anion Gap 6 (5-15); BUN 10 mg/dL (7-18); BUN/Creat Ratio 10.5 RATIO (10-20); Calcium,Total 9.1 mg/dL (8.5-10.1); Chloride 107 mmol/L (98-107); Creatinine, Serum 0.96 mg/dL (0.55-1.02); EST Glomerular Filtration Rate 69 mL/min (>60); Est Glom Filt Rate - Afr Amer 83 mL/min (>60); Estimated Creatinine Clearance 78.03 ml/min; Globulin 4.1 g/dL (2.2-4.2); Glucose 89 mg/dL (74-106); Potassium 3.6 mmol/L (3.5-5.1); Protein, Total 7.9 g/dL (6.4-8.2); Sodium Level 139 mmol/L (136-145)
--- NOTE | 2024-01-09 10:27 | EDS_ITS ---
HPI HPI - GI History of Present Illness Chief Complaint: Abd Pain Informant: patient Narrative Narrative: Patient is a 38-year-old female with history of Halls hyperemesis syndrome as well as Crohn's disease presenting with worsening abdominal pain, nausea, diarrhea and indigestion. She states this feels her Crohn's flare. She notes she is a month behind on her Stelara because of insurance issues. She states that she has been getting worse over the past 1 to 2 weeks. She has tried Bentyl and Zofran at home with little help of her symptoms. She did vomit this morning. Denies any black or blood in her vomit or her stool. States the pain is lower in her abdomen. Denies any urinary symptoms. No other complaints or concerns reported at this time. Does have a history of laparoscopic cholecystectomy. Follows with LIN Nunn. [facility] Medical History Low iron Anemia Migraine headache Heartburn Asthma Hypertension Marijuana use History of blood transfusion Smoker Crohn's disease Cannabis hyperemesis syndrome concurrent with and due to cannabis abuse Bipolar 1 disorder Depression Anxiety Home Medications ?Medication ?Instructions ?Recorded ?Last Taken ?Type escitalopram oxalate 20 mg tablet 20 mg PO DAILY 08/15/21 Unknown History (Lexapro) hydroxyzine pamoate 25 mg capsule 25 mg PO QHS 08/15/21 Unknown History lamotrigine 100 mg tablet 200 mg PO DAILY 08/15/21 Unknown History (Lamictal) albuterol sulfate 90 mcg/actuation 1 inh inhalation Q6H PRN ASTHMA 10/24/22 Unknown History aerosol inhaler (Ventolin HFA) lisinopril 30 mg tablet 30 mg PO DAILY 10/24/22 Unknown History ciprofloxacin HCl 500 mg tablet 500 mg PO DAILY 10 days #10 tabs 11/23/22 Unknown Rx (Cipro) pantoprazole 40 mg tablet,delayed 40 mg PO Q12H #60 tabs 09/23/23 Unknown Rx release ondansetron 4 mg disintegrating 4 mg PO Q6H PRN nausea and 11/10/23 Unknown Rx tablet vomiting #60 tabs prochlorperazine maleate 10 mg 10 mg PO TID PRN nausea and 11/10/23 Unknown Rx tablet (Compazine) vomiting #90 tabs ustekinumab 90 mg/mL subcutaneous 90 mg subcut Q8W #1 mL 11/20/23 Unknown Rx syringe (Stelara) ondansetron 4 mg disintegrating 4 mg PO Q8H PRN PRN Nausea #10 tabs 11/27/23 Unknown Rx tablet dicyclomine 20 mg tablet 20 mg PO TID PRN abdominal pain 01/09/24 Unknown Rx #90 tabs Allergy/AdvReac Type Severity Reaction Status Date / Time amoxicillin Allergy Rash Verified 01/09/24 08:53 tramadol Allergy Rash Verified 01/09/24 08:53 Family History Mother Mental disorder Surgical History S/P ERCP S/P laparoscopic cholecystectomy History of esophagogastroduodenoscopy (EGD) Social History household members: children Smoking Status: Current every day smoker tobacco type: cigarettes substance use type: does not use ROS ROS ED Constitutional Constitutional ED: Denies chills or fever(s) Cardiovascular Cardiovascular: Denies chest pain Gastrointestinal Gastrointestinal: Reports abdominal pain, diarrhea, nausea and vomiting Musculoskeletal Musculoskeletal: Denies arthralgias or back pain Neurologic Neurologic: Denies weakness Hematologic/Lymphatic Hematologic/Lymphatic: Denies easy bleeding or easy bruising EXAM Physical Exam Const Vital Signs: 01/09/24 08:53 01/09/24 10:53 01/09/24 12:00 Temperature 96.8 F L Temperature Source Temporal Pulse Rate 87 81 78 Respiratory Rate 16 17 18 Blood Pressure 122/90 H 130/81 H 128/77 H Blood Pressure Mean 100 97 94 Pulse Ox 99 98 98 Oxygen Delivery Method Room Air Room Air Room Air Positive well nourished and well developed General Appearance ED: well developed and NAD HEENT Reports moist mucous membranes Neck supple Resp normal respiratory effort and clear to auscultation bilaterally Cardio regular rate and regular rhythm GI non-distended GI Narrative: Patient reports mild tenderness on lower abdominal palpation Inspection: Negative for abdominal distention Auscultation: normoactive bowel sounds Palpation: soft and tender; Negative for guarding or rigid Extremity full ROM General Extremety ED: Negative for edema General Extremity: Negative for edema Psych mental status grossly normal and thought process normal Skin General Skin Exam: Negative for jaundice Rashes: no rashes MDM MDM MDM Narrative Medical decision making narrative: Patient is evaluated for worsening lower abdominal pain as well as nausea, vomiting and diarrhea. Ran out of her Stelara is where she is having a Crohn's flare. I was seen earlier this month for similar symptoms at that time had a CT abdomen pelvis as well as blood work. Abdominal exam is pretty benign. Vital signs are normal. She is not reporting any blood in her stool. Will start with checking labs and then determine if CT imaging is indicated. Patient is given IV morphine and Haldol as well as IV fluids for symptom control in the ER as I do question if there could be component of cyclic vomiting syndrome/cannabis hyperemesis syndrome as well. Lab work largely normal. CBC and hemoglobin are stable and normal. Urine negative. Urinalysis not consistent with infection. Patient eloped from the ER prior to repeat evaluation. Nursing reports that she had been sleeping and watching TV and then suddenly got up, took her IV out and left. Lab Data Attestation: I reviewed the patient's lab results. Labs: Laboratory Results - last 24 hr 01/09/24 01/09/24 09:05 10:29 WBC 5.3 RBC 4.16 L Hgb 12.5 Hct 38.3 MCV 92.1 MCH 30.0 MCHC 32.6 RDW Std Deviation 43.8 RDW Coeff of Kim 13.0 Plt Count 451 H MPV 9.5 Immature Gran % (Auto) 0.400 Neut % (Auto) 47.5 Lymph % (Auto) 40.8 [place] % (Auto) 9.1 Eos % (Auto) 1.3 Baso % (Auto) 0.9 Absolute Neuts (auto) 2.5 Absolute Lymphs (auto) 2.15 Nucleated RBC % 0 Sodium 139 Potassium 3.6 Chloride 107 Carbon Dioxide 26.0 Anion Gap 6 BUN 10 Creatinine 0.96 Estim Creat Clear Calc 78.03 Est GFR (MDRD) Af Amer 83 Est GFR (MDRD) Non-Af 69 BUN/Creatinine Ratio 10.5 Glucose 89 Calcium 9.1 Total Bilirubin 0.30 AST 18 ALT 21 Alkaline Phosphatase 87 Total Protein 7.9 Albumin 3.8 Globulin 4.1 Albumin/Globulin Ratio 0.9 Urine Color Yellow Urine Clarity Clear Urine pH 7.0 Ur Specific [place] 1.010 Urine Protein 30 H Urine Glucose (UA) Normal Urine Ketones Negative Urine Occult Blood Negative Urine Nitrite Negative Urine Bilirubin Negative Urine Urobilinogen 1 H Ur Leukocyte Esterase 25 H Urine RBC 0 SEEN Urine WBC 0-5 SEEN Ur Squamous Epith Cells 0-5 SEEN Urine Bacteria RARE Urine Mucus 0 SEEN Urine Test Negative Discharge Plan Triage Chief Complaint: Abd Pain ED Provider: Valeria Taylor Dx/Rx/DC Orders Clinical Impression: Abdominal pain, Crohn's disease Prescriptions: No Action hydroxyzine pamoate 25 mg capsule 25 mg PO QHS pantoprazole 40 mg tablet,delayed release (DR/EC) 40 mg PO Q12H Qty: 60 3RF escitalopram oxalate [Lexapro] 20 mg tablet 20 mg PO DAILY lamotrigine [Lamictal] 100 mg tablet 200 mg PO DAILY lisinopril 30 mg Tablet 30 mg PO DAILY albuterol sulfate [Ventolin HFA] 90 mcg/actuation Hfa Aerosol Inhaler 1 inh INHALATION Q6H PRN (Reason: ASTHMA) ciprofloxacin HCl [Cipro] 500 mg tablet 500 mg PO DAILY 10 Days Qty: 10 0RF ondansetron 4 mg tablet,disintegrating 4 mg PO Q8H PRN PRN (Reason: Nausea) Qty: 10 0RF prochlorperazine maleate [Compazine] 10 mg tablet 10 mg PO TID PRN (Reason: nausea and vomiting) Qty: 90 5RF ondansetron 4 mg tablet,disintegrating 4 mg PO Q6H PRN (Reason: nausea and vomiting) Qty: 60 3RF Stelara 90 mg/mL syringe 90 mg subcut Q8W Qty: 1 5RF Rx Instructions: Crohn's dicyclomine 20 mg tablet 20 mg PO TID PRN (Reason: abdominal pain) Qty: 90 6RF Primary Care Provider: Michelle Grimm NP Referrals: Michelle Grimm NP, [facility]PER-[facility] [Primary Care Provider] - Print Language: Sinhala Disposition Disposition: Elopement Discharge Date/Time: 01/09/24 12:49
[2024-01-09 10:32] LABS: Mucous, Urine 0 SEEN /hpf (<or=2+); Red Blood Cells-Urine 0 SEEN /hpf (0-5)
[2024-01-09 10:41] LABS: Color, Urine Yellow (Yellow); Glucose, Dipstick Normal (Normal); Ketone-Dipstick Negative (Negative); Leukocyte Esterase-Dipstick 25 /ul (Negative); Nitrite-Dipstick Negative (Negative); Occult Blood-Urine Negative /ul (Negative); Protein-Dipstick 30 mg/dl (Negative); Urine Bilirubin Dipstick Negative (Negative); Urine Clarity Clear (Clear); Urine Urobilinogen 1 mg/dl (Normal)
[2024-01-09 10:53] VITALS: BP 130/81; PULSE 81; RESP 17; O2SAT 98
[2024-01-09 10:54] LABS: Bacteria RARE /hpf (None Seen); Squamous Epithelial Cells - UA 0-5 SEEN /hpf (5-10); White Blood Cells 0-5 SEEN /hpf (0-5)
[2024-01-09 12:00] VITALS: BP 128/77; PULSE 78; RESP 18; O2SAT 98
[2024-01-09 12:03] LABS: Internal QC Validated? YES +Cl - CLEAR BKGD; Pregnancy, Urine Negative Negative
--- NOTE | 2024-01-09 12:39 | ED.RN ---
WENT BACK TO CHECK ON PATIENT, PATIENT WAS NO WHERE TO BE FOUND. IV WAS OUT AND ON THE FLOOR, FLUIDS WERE IN THE GARBAGE. PATIENT ELOPED. DR. CYR INFORMED
== END 2024-01-09 12:49 | disposition left against medical advice (07) ==
LOC: ED 10:11
PROVIDERS: Emergency Provider Emergency Medicine; PCP Nurse Practitioner Primary Care; Visit Provider Emergency Medicine
DX: R10.9 Unspecified abdominal pain (principal); K50.90 Crohn's disease, unspecified, without complications; F31.9 Bipolar disorder, unspecified; T50.996A Underdosing of other drugs, medicaments and biological substances, initial encounter; Z91.120 Patient's intentional underdosing of medication regimen due to financial hardship; I10 Essential (primary) hypertension; J45.909 Unspecified asthma, uncomplicated; F17.210 Nicotine dependence, cigarettes, uncomplicated; Z79.899 Other long term (current) drug therapy; Z90.49 Acquired absence of other specified parts of digestive tract
CPT/HCPCS: 80053; 81001; 81025; 85025; 96361; 96374; 96375; 99282; J7030; A4216

== ENCOUNTER → 2024-03-23 | Outpatient (CLI) | payer MEDICAID, SELFPAY ==
[2024-03-23 11:07] LABS: Erythrocyte Sedimentation Rate 8 mm/hr (0-30)
[2024-03-23 11:25] LABS: CRP < 2.90 mg/L (0.0-3.0)
== END | disposition home or self-care (01) ==
PROVIDERS: Referring Provider Internal Medicine Gastroenterology; Visit Provider Internal Medicine Gastroenterology
DX: K50.00 Crohn's disease of small intestine without complications (principal)
CPT/HCPCS: 36415; 85652; 86140

== ENCOUNTER 2024-10-14 05:09 | Day surgery (SDC) | payer MEDICAID, SELFPAY ==
--- NOTE | 2024-10-13 17:21 | HP.PCM.OB_ITS ---
History and Physical Date of Admission: 10/14/24 Expand All Collapse All Pre-Op History and Physical HPI: The patient is a 39 year old female presenting for pre-operative visit. She is scheduled for TLH, bilateral salpingectomy, cysto, for AUB, fibroid uterus , adenomyosis on 10/14/24. Procedure discussed along with risks, benefits and complications. Other alternatives discussed for management. Consent form signed? Yes. PAST MEDICAL HISTORY PAST MEDICAL HISTORY Diagnosis Date ? Anxiety and depression ? Bipolar affective (HCC) ? Crohn's disease (HCC) ? Diverticulosis ? Hemorrhoid PAST SURGICAL HISTORY PAST SURGICAL HISTORY Procedure Laterality Date ? DILATION & CURETTAGE ? LIGATE FALLOPIAN TUBE ? REMOVAL GALLBLADDER 10/26/2022 At [facility] ? WRIST LEFT OP SURGERY Right artery repair after cutting herself CURRENT MEDICATIONS Current Outpatient Medications Medication Sig Dispense Refill ? ondansetron orally disintegrating (ZOFRAN ODT) 4 mg disintegrating tablet dissolve 1 tablet ON TONGUE every 8 hours 30 tablet 0 ? pantoprazole DR (PROTONIX) 40 mg tablet Take 1 tablet by mouth once daily. ? omeprazole (PRILOSEC) 20 mg capsule Take 1 capsule by mouth two times a day. 1/2 hr before meal. (Patient not taking: Reported on 08/27/2024) 60 capsule 1 ? escitalopram oxalate (LEXAPRO) 20 mg tablet Take 1 tablet by mouth once daily. 90 tablet 1 ? lamoTRIgine (LAMICTAL) 25 mg tablet Take 2 tablets by mouth once daily. Take with 200 mg tablet. 180 tablet 1 ? lamoTRIgine (LAMICTAL) 200 mg tablet Take 1 tablet by mouth once daily. Take with additional 50 mg dose for a total of 250 mg every day 90 tablet 1 ? hydrOXYzine pamoate (VISTARIL) 25 mg capsule Take 1 capsule by mouth two times a day as needed for anxiety. 60 capsule 5 ? albuterol HFA (PROVENTIL HFA, VENTOLIN HFA) 90 mcg/actuation inhaler Inhale 2 Puffs as instructed every 6 hours as needed for wheezing/shortness of breath. 8.5 g 1 ? dicyclomine (BENTYL) 20 mg tablet Take 20 mg by mouth three times a day as needed. ? lisinopril (ZESTRIL) 30 mg tablet Take 1 tablet by mouth once daily. 90 tablet 3 ? ustekinumab (STELARA) 90 mg/mL injection Take one dose subcutaneously monthly ? albuterol HFA (PROVENTIL HFA, VENTOLIN HFA) 90 mcg/actuation inhaler Inhale 2 Puffs as instructed every 6 hours as needed for wheezing/shortness of breath. 1 Each 0 No current facility-administered medications for this visit. ALLERGIES: Amoxicillin and Tramadol PERSONAL HISTORY: SOCIAL HISTORY Social History Tobacco Use ? Smoking status: Every Day Current packs/day: 1.00 Average packs/day: 1 pack/day for 13.0 years (13.0 ttl pk-yrs) Types: Cigarettes ? Smokeless tobacco: Never Vaping Use ? Vaping status: Never Used Substance Use Topics ? Alcohol use: Yes Comment: occasional ? Drug use: Yes Types: Marijuana Comment: daily FAMILY HISTORY: FAMILY HISTORY FAMILY HISTORY Problem Relation Age of Onset ? Depression Mother ? Bipolar disorder Mother ? No Known Problems Father ? No Known Problems Brother ? other (CABG) Maternal Grandfather ? No Known Problems Paternal Grandmother ? No Known Problems Paternal Grandfather REVIEW OF SYMPTOMS: negative except as noted above PHYSICAL EXAMINATION: VITALS: Last menstrual period 08/12/2024. GENERAL: The patient is well nourished, well hydrated in no acute distress. , The patient is oriented to time, place, and person. NECK: Supple. Full range of motion LUNGS: Clear to auscultation bilaterally. no wheezes, rhonchi or rales HEART: Regular rate and rhythm, Normal heart sounds, and No murmurs or gallops IMPRESSION: 39yo with AUB, fibroid uterus, adenomyosis PLAN: TLH, bilateral salpingectomy, Cysto Pt has been counseled on risks/benefits and alternatives of surgery including but not limited to anesthesia, bleeding, infection, injury to pelvic structures including bowel, bladder, ureters and vessels. Pt wishes to proceed with surgery at this time. Risk for transfusion, fistula formation reviewed Pre and post op instructions reviewed I have reviewed and updated past medical and surgical history, medications and allergies Abena Meléndez MD Office Visit on 09/27/2024 Note shared with patient
[2024-10-14] VITALS (11 sets, daily range): BP systolic 125–150; BP diastolic 86–102; PULSE 64–80; RESP 14–20; TEMP 36.3–36.4; O2SAT 100; BMI 33.2
--- OUTSIDE RECORDS SUMMARY | 2024-10-14 05:15 | XMS RPT_ITS | CCD ---
Author Organization [facility] Care Team Providers Care Floor Director Name Role Phone [facility] CLINIC Unavailable Unavailable JEREMIAH OMALLEY Unavailable Unavailable [facility] Unavailable Unavailable [facility] Unavailable Unavailable SALMA BENJAMIN Unavailable Unavailable [facility] Unavailable Unavailable April Corral MD Primary Care Provider [employer] MICROBIOLOGY INSTRUCTOR, MICROBIOLOGY INSTRUCTOR-C Michelle Primary Care Provider [facility] MICROBIOLOGY INSTRUCTOR, MICROBIOLOGY INSTRUCTOR-C Michelle Referring Provider Dr. Kenn Ojeda Attending Provider Dr. Kenn Ojeda Other Provider April Corral MD Primary Care Provider [employer] MICROBIOLOGY INSTRUCTOR, MICROBIOLOGY INSTRUCTOR-C Michelle Primary Care Provider [phone] [facility] MICROBIOLOGY INSTRUCTOR, MICROBIOLOGY INSTRUCTOR-C Michelle Referring Provider Dr. Kenn Ojeda Attending Provider April Corral MD Primary Care Provider [employer] MICROBIOLOGY INSTRUCTOR, MICROBIOLOGY INSTRUCTOR-C Michelle Primary Care Provider [employer] MICROBIOLOGY INSTRUCTOR, MICROBIOLOGY INSTRUCTOR-C Michelle Referring Provider Dr. Kenn Ojeda Attending Provider April Corral MD Primary Care Provider [employer] MICROBIOLOGY INSTRUCTOR, MICROBIOLOGY INSTRUCTOR-C Michelle Primary Care Provider [phone] [employer] MICROBIOLOGY INSTRUCTOR, MICROBIOLOGY INSTRUCTOR-C Michelle Referring Provider Dr. Kenn Ojeda Attending Provider [phone] [employer] MICROBIOLOGY INSTRUCTOR, MICROBIOLOGY INSTRUCTOR-C Michelle Primary Care Provider [phone] [facility] MICROBIOLOGY INSTRUCTOR, MICROBIOLOGY INSTRUCTOR-C Michelle Referring Provider Dr. Kenn Ojeda Attending Provider [phone] [employer] MICROBIOLOGY INSTRUCTOR, MICROBIOLOGY INSTRUCTOR-C Michelle Primary Care Provider [facility] MICROBIOLOGY INSTRUCTOR, MICROBIOLOGY INSTRUCTOR-C Michelle Referring Provider Dr. Kenn Ojeda Attending Provider [phone] Dr. Zeke Rascon Attending Provider Abiodun, Dr. Alanis Referring Provider Abiodun, Dr. Alanis Other Provider Abiodun, Dr. Alanis Admit Provider Dr. Cheri Andrade Attending Provider [employer] MICROBIOLOGY INSTRUCTOR, MICROBIOLOGY INSTRUCTOR-C Michelle Primary Care Provider [phone] [facility] MICROBIOLOGY INSTRUCTOR, MICROBIOLOGY INSTRUCTOR-C Michelle Referring Provider Dr. Kenn Ojeda Attending Provider [phone] Dr. Zeke Rascon Attending Provider Abiodun, Dr. Alanis Referring Provider Abiodun, Dr. Alanis Other Provider Abiodun, Dr. Alanis Admit Provider Dr. Cheri Andrade Attending Provider [employer] MICROBIOLOGY INSTRUCTOR, MICROBIOLOGY INSTRUCTOR-C Michelle Primary Care Provider [employer] MICROBIOLOGY INSTRUCTOR, MICROBIOLOGY INSTRUCTOR-C Michelle Referring Provider Dr. Kenn Ojeda Attending Provider [phone] [facility] Primary Care Physician Verona Todd APRN.[employer]BLER, [place] Unavailable [facility] MICROBIOLOGY INSTRUCTOR, MICROBIOLOGY INSTRUCTOR-C Michelle Primary Care Provider [employer] MICROBIOLOGY INSTRUCTOR, MICROBIOLOGY INSTRUCTOR-C Michelle Referring Provider Friend, Dr. Hawk Attending Provider April Corral MD Primary Care Provider APRIL CORRAL Primary Care Unavailab MICHELLE Harrison Attending Unavailable TRINITY HERRERA Referring Unavailable [facility] MICROBIOLOGY INSTRUCTOR, MICROBIOLOGY INSTRUCTOR-C Michelle Primary Care Provider [phone] [facility] MICROBIOLOGY INSTRUCTOR, MICROBIOLOGY INSTRUCTOR-C Michelle Referring Provider Friend, Dr. Hawk Attending Provider Friend, Dr. Hawk Other Provider [facility] ASSESSMENT DIRECTOR.Michelle MANCIA Unavailable Almita ASSESSMENT DIRECTOR.Amber MANCIA Unavailable YULY COLEMAN DO Attending Unavailable [facility] Primary Care Unavailable LADY, CHRISTOPHER B Primary Care Unavailab le CARRILLO HUDSON Referring Unavailable LADY, CHRISTOPHER B Primary Care Unavailab le YU CASTILLO Referring Unavailable DARNELL CURRIE Attending Unavailable LADY, CHRISTOPHER B Primary Care Unavailab le SARMAD WREN Attending Unavailable YECENIALEY, CHRISTOPHER B Primary Care Unavailab le SARMAD WREN Referring Unavailable BURSLEY, CHRISTOPHER B Primary Care Unavailab le BURSLEY, CHRISTOPHER B Primary Care Unavailab le HERRERA, TRINITY Referring Unavailable YECENIALEY, CHRISTOPHER B Primary Care Unavailab le TIRNITY HERRERA Attending Unavailable LISSA MEADE Attending Unavailable YECENIALEY, CHRISTOPHER B Primary Care Unavailab le HOLGER, SARMAD Referring Unavailable BURSLEY, CHRISTOPHER B Primary Care Unavailab le BURSLEY, CHRISTOPHER B Primary Care Unavailab le LISSA MEADE Referring Unavailable YECENIALEY, CHRISTOPHER B Primary Care Unavailab LISSA Phillips Attending Unavailable YECENIALEY, CHRISTOPHER B Primary Care Unavailab le BENNIE BROWN Attending Unavail able BENNIE BROWN Referring Unavail able LADY, CHRISTOPHER B Primary Care Unavailab le BENNIE BROWN Attending Unavail able BENNIE BROWN Referring Unavail able APRIL CORRAL Primary Care Unavailab le FriendDeysiKenn Referring Unavailable Friend, Kenn Attending Unavailable Lissa Mcbride Attending Unavailable [employer] MICROBIOLOGY INSTRUCTOR, Michelle Primary Care Unavailable Maverick Avery Attending Unavailable [facility] MICROBIOLOGY INSTRUCTOR, Michelle Primary Care Unavailable Valeria Taylor Attending Unavailable [facility] MICROBIOLOGY INSTRUCTOR, Michelle Primary Care Unavailable Friend, Kenn Attending Unavailable [facility] MICROBIOLOGY INSTRUCTOR, Michelle Referring Unavailable Lissa Alanis Attending Unavailable Vick Corral Primary Care Unavailable Bennie Chi Attending Unavail able Bennie Chi Referring Unavail able Allergies Allergy Classification Reported Allergen(s) Allergy Type Date of Onset Reaction(s) Facility Opioid Agonists (1 source) traMADol Drug Allergy 07-01-2020 [facility] Penicillins (antibiotic) (1 source) Amoxicillin Drug Allergy 07-01-2020 [facility] (20 sources) Amoxicillin; Translations: [amoxicillin] Drug Allergy 07-01-2020 [facility] Work Phone: (20 sources) traMADol; Translations: [tramadol] Drug Allergy 07-01-2020 [facility] Work Phone: (1 source) Amoxicillin Drug Allergy 10-01-2024 [facility] Repository (1 source) traMADol Drug Allergy 10-01-2024 [facility] Medications Current Medications Medication Drug Class(es) Dates Sig (Normalized) Sig (Original) acetaminophen 300 mg / HYDROcodone bitartrate 5 mg oral tablet (14 sources) Opioid Agonist Start: 11-23-2022 Start: 10-25-2022 Start: 10-25-2022 take 1 tablet by amara th every four hours Hydrocodone-Acetaminophen Active 1 - 2 TABLET PO Q4H 20 5 October 25, 2022 Start: 10-18-2022 take 1 tablet by amara th every six hours as needed Hydrocodone-Acetaminophen Active 1 TABLET PO EVERY 6 HOURS NEEDED 6 2 October 18, 2022 Start: 08-11-2022 take 1 tablet by amara th every six hours as needed Hydrocodone-Acetaminophen Active 1 TABLET PO EVERY 6 HOURS NEEDED 10 3 August 11, 2022 Start: 07-13-2022 take 1 tablet by amara th every four hours as needed Hydrocodone-Acetaminophen Active 1 TABLET PO EVERY 4 HOURS NEEDED 02 10July 13, 2022 Start: 04-13-2022 take 1 tablet by amara th every six hours as needed Hydrocodone-Acetaminophen Active 1 TABLET PO EVERY 6 HOURS NEEDED 04 13April 13, 2022 Start: 02-19-2022 take 1 tablet by amara th every six hours as needed Hydrocodone-Acetaminophen Active 1 TABLET PO EVERY 6 HOURS NEEDED 10 February 19, 2022 Start: 09-30-2021 take 1 tablet by amara th every four hours as needed Hydrocodone-Acetaminophen Active 1 TABLET PO EVERY 4 HOURS NEEDED 10 September 30, 2021 7:53pm [id number] 200 actuat albuterol 0.09 mg/actuat metered dose inhaler (20 sources) beta2-Adrenergic Agonist Start: 12-07-2022 End: 01-22-2024 take 2 puff(s) by inhalation every six hours as needed for wheezing albuterol HFA (PROVENTIL HFA, VENTOLIN HFA) 90 mcg/actuation inhaler Indications: Wheezing , Mild intermittent asthma with acute exacerbation (HCC) Inhale 2 Puffs as instructed every 6 hours as needed for wheezing/shortness of breath. 8.5 g 1 01/23/2024 Active Start: 10-24-2022 Albuterol Sulf ate (Ventolin Hfa) 90 mcg/actuation Hfa Aerosol Inhaler Active 1 INH INHALATION EVERY 6 HOURS October 24, 2022 12:00am Start: 10-24-2022 Start: 10-20-2022 take 2 puff(s) by in halation every six hours as needed for wheezing Ventolin HFA MDI (90 mcg/inh) inhalation aerosol 2 puff(s), Inhalation, q6h, PRN as needed for wheezing, # 8 gram(s), 0 Refill(s) Start Date: 10/20/22 Status: Ordered Quantity: 8.0 Unit: g Repeat number: 1 Start: 10-20-2022 take 2 puff(s) by in halation every six hours as needed for wheezing Ventolin HFA MDI (90 mcg/inh) inhalation aerosol 2 puff(s), Inhalation, q6h, PRN as needed for wheezing, # 8 gram(s), 0 Refill(s) Start Date: 10/20/22 Status: Ordered Start: 09-16-2022 take 2 puff(s) by in halation every six hours as needed for wheezing albuterol HFA (PROVENTIL HFA, VENTOLIN HFA) 90 mcg/actuation inhaler Indications: Wheezing , Mild intermittent asthma with acute exacerbation Inhale 2 Puffs as instructed every 6 hours as needed for wheezing/shortness of breath. 8.5 g 1 09/16/2022 Active Start: 04-19-2022 take 2 puff(s) by in halation every six hours as needed for wheezing albuterol HFA (PROVENTIL HFA, VENTOLIN HFA) 90 mcg/actuation inhaler Inhale 2 Puffs as instructed every 6 hours as needed for wheezing/shortness of breath. 1 Each 04/19/2022 Active Start: 02-04-2022 End: 09-14-2022 take 2 puff(s) by inhalation every six hours as needed for wheezing albuterol HFA (PROVENTIL HFA, VENTOLIN HFA) 90 mcg/actuation inhaler Indications: Wheezing , Mild intermittent asthma with acute exacerbation Inhale 2 Puffs as instructed every 6 hours as needed for wheezing/shortness of breath. 8.5 g 1 03/27/2022 09/14/2022 Discontinued Start: 06-21-2021 End: 02-02-2022 take 2 puff(s) by inhalation every six hours as needed for wheezing albuterol HFA (PROVENTIL HFA, VENTOLIN HFA) 90 mcg/actuation inhaler Indications: Wheezing , Mild intermittent asthma with acute exacerbation Inhale 2 Puffs as instructed every 6 hours as needed for wheezing/shortness of breath. 8.5 g 1 06/21/2021 02/02/2022 Discontinued Comment on above: Inhale 2 Puffs as in structed every 6 hours as needed for wheezing/shortness of breath. azithromycin 250 mg oral tablet (1 source) Macrolide Antimicrobial Start: 2022 End: 2022 take 2 tablets by mouth once daily, then take 1 tablet by mouth once daily azithromycin (ZITHROMAX) 250 mg tablet Take 2 tablets by mouth once daily for 1 day, THEN 1 tablet once daily for 4 days. 6 tablet 0 03/16/2023 03/21/2023 Active Comment on above: Take 2 tablets by mo uth once daily for 1 day, THEN 1 tablet once daily for 4 days. benzonatate 100 mg oral capsule (2 sources) Non-narcotic Antitussive Start: 2021 End: 2021 take 2 capsules by mouth three times daily as needed benzonatate (TESSALON PERLE) 100 mg capsule Indications: Viral URI with cough Take 2 capsules by mouth three times daily as needed for up to 10 days. 60 capsule 0 03/23/2022 04/02/2022 Active Comment on above: Take 2 capsules by m out three times daily as needed for up to 10 days. busPIRone hydrochloride 7.5 mg oral tablet (7 sources) Start: 2023 End: 2023 take 1 tablet by mouth twice daily busPIRone (BUSPAR) 7.5 mg tablet Indications: FREDY (generalized anxiety disorder) Take 1 tablet by mouth two times a day. 60 tablet 1 12/25/2023 02/23/2024 Active ciprofloxacin 500 mg oral tablet (4 sources) Quinolone Antimicrobial Start: 2022 take 1 tablet by mouth once daily Ciprofloxacin Hcl (Cipro) 500 mg tablet Active 500 MG PO DAILY 02 18November 23, 2022 12:00am cyclobenzaprine hydrochloride 10 mg oral tablet (6 sources) Muscle Relaxant Start: 2022 End: 2022 take 1 tablet by mouth every eight hours as needed for muscle spasms cyclobenzaprine (FLEXERIL) 10 mg tablet Indications: Neck pain on left side Take 1 tablet by mouth every 8 hours as needed for muscle spasm for up to 15 days. 15 tablet 0 09/23/2022 10/08/2022 Active Start: 12-19-2021 End: 12-26-2021 take 1 tablet by mouth every twelve hours as needed cyclobenzaprine (FLEXERIL) 10 mg tablet Take 1 tablet by mouth twice daily as needed for muscle spasm for up to 7 days. 14 tablet 0 12/19/2021 12/26/2021 Active Start: 05-22-2021 End: 08-06-2021 take 1 tablet by mouth every eight hours as needed cyclobenzaprine (FLEXERIL) 10 mg tablet Take 1 tablet by mouth three times daily as needed for muscle spasm. 21 tablet 0 05/22/2021 08/06/2021 Discontinued Comment on above: Take 1 tablet by amara three times daily as needed for muscle spasm. Take 1 tablet by amara twice daily as needed for muscle spasm for up to 7 days. Take 1 tablet by amara every 8 hours as needed for muscle spasm for up to 15 days. dicyclomine hydrochloride 20 mg oral tablet (20 sources) Anticholinergic Start: 10-20-2022 dicyclomine 20 mg oral tablet Dose : 20 mg = 1 tab(s), Oral, TID, 0 Refill(s) Start Date: 10/20/22 Status: Ordered Repeat number: 1 Start: 01-01-2022 take 20 mg by mouth twice giovanni y Dicyclomine Active 20 MG PO TWICE A DAY January 01, 2022 10:26am Start: 11-21-2021 take 20 mg by mouth three times daily Dicyclomine Active 20 MG PO THREE TIMES A DAY November 20, 2021 11:00pm Start: 09-26-2021 End: 06-19-2023 take 20 mg by mouth three times daily Dicyclomine Active 20 MG PO THREE TIMES A DAY July 29, 2022 11:00pm Start: 09-26-2021 take 10 mg by mouth three times daily Dicyclomine Active 10 MG PO THREE TIMES A DAY September 26, 2021 11:31am Comment on above: Take 1 tablet by amara three times daily. Take 20 mg by mouth. doxycycline hyclate 100 mg oral tablet (3 sources) Tetracycline-cla ss Drug Start: 08-04-2024 End: 08-09-2024 take 1 tablet by mouth twice daily doxycycline (VIBRA-TABS) 100 mg tablet Take 1 tablet by mouth two times a day for 5 days. 10 tablet 08/04/2024 08/09/2024 Active Start: 12-19-2021 End: 12-24-2021 take 1 tablet by mouth twice daily doxycycline monohydrate 100 mg tablet Take 1 tablet by mouth twice daily for 5 days. 10 tablet 0 12/19/2021 12/24/2021 Active Comment on above: Take 1 tablet by amara th twice daily for 5 days. escitalopram 20 mg oral tablet (20 sources) Serotonin Reuptake Inhibitor Start: take 1 tablet by mouth once daily escitalopram oxalate (LEXAPRO) 20 mg tablet Indications: FREDY (generalized anxiety disorder) , Major depressive disorder, remission status unspecified, unspecified whether recurrent Take 1 tablet by mouth once daily. 90 tablet 1 06/04/2024 Active Start: 02-24-2021 End: 12-24-2023 take 1 tablet by mouth once daily escitalopram oxalate (LEXAPRO) 20 mg tablet Indications: FREDY (generalized anxiety disorder) , Major depressive disorder, remission status unspecified, unspecified whether recurrent Take 1 tablet by mouth once daily. 90 tablet 1 06/04/2024 Active Start: 02-24-2021 End: 08-15-2021 take 2 tablets by mouth once daily Escitalopram Oxalate (Lexapro) 20 mg Tablet Discontinued 40 MG PO DAILY February 24, 2021 12:00am August 15, 2021 1:41pm Comment on above: Take 1 tablet by amara once daily. take 1 tablet by amara once daily hydrOXYzine pamoate 25 mg oral capsule (20 sources) Antihistamine Start: End: take 1 capsule by mouth twice daily as needed for anxiety hydrOXYzine pamoate (VISTARIL) 25 mg capsule Indications: FREDY (generalized anxiety disorder) Take 1 capsule by mouth two times a day as needed for anxiety. 60 capsule 5 06/04/2024 12/01/2024 Active Comment on above: Take 1 capsule by mo [facility] twice daily as needed for anxiety. Take 1 capsule by mo [facility] two times a day as needed for anxiety. hyoscyamine sulfate 0.125 mg sublingual tablet (20 sources) Start: take 0.25 mg by mouth every four hours Hyoscyamine Sulfate Active 0.25 MG PO Q4H August 12, 2022 12:00am Start: 04-19-2022 End: 09-08-2023 take 1 tablet by mouth twice daily hyoscyamine (LEVSIN) 0.125 mg tablet take 1 tablet by mouth twice a day for DYSPEPSIA 04/19/2022 09/08/2023 Discontinued Comment on above: take 1 tablet by amara twice a day for DYSPEPSIA ibuprofen 200 mg oral tablet (4 sources) Nonsteroidal Anti-inflammatory Drug Start: 8 take 1 dose by mouth every six hours as needed for headache ibuprofen Dose : 200 mg =, Oral, q6hr, PRN as needed for headache, 0 Refill(s) Start Date: 01/18/18 Status: Ordered Repeat number: 1 End: 08-07-2021 ibuprofen (MOTRIN ORAL) Take by mouth. 0 08/07/2021 Discontinued (Course of therapy completed) ibuprofen (MOTRI N ORAL) Take by mouth. 0 Active Comment on above: Take by mouth. Inhalational Spacing Device (1 source) Start: 04-19-2022 End: 04-19-2022 Inhalational Spacing Device 1 Device one time only for 1 dose. 1 Each 0 04/19/2022 04/19/2022 Active Comment on above: 1 Device one time on ly for 1 dose. lamoTRIgine 200 mg oral tablet (20 sources) Mood Stabilizer, Anti-epileptic Agent Start: 09-22-2023 End: 12-01-2024 take 2 tablets by mouth once daily lamoTRIgine (LAMICTAL) 25 mg tablet Indications: FREDY (generalized anxiety disorder) , Bipolar 2 disorder (HCC) Take 2 tablets by mouth once daily. Take with 200 mg tablet. 180 tablet 1 06/04/2024 12/01/2024 Active Start: 06-24-2023 End: 09-22-2023 take 1 tablet by mouth once daily lamoTRIgine (LAMICTAL) 25 mg tablet Indications: FREDY (generalized anxiety disorder) , Bipolar 2 disorder (HCC) Take 1 tablet by mouth once daily for 14 days, THEN 2 tablets once daily. Take with 200 mg tablet.. 134 tablet 06/24/2023 09/22/2023 Discontinued Start: 04-17-2023 End: 12-01-2024 take 1 tablet by mouth once daily lamoTRIgine (LAMICTAL) 200 mg tablet Indications: Major depressive disorder, remission status unspecified, unspecified whether recurrent , Bipolar affective disorder, remission status unspecified (HCC) Take 1 tablet by mouth once daily. Take with additional 50 mg dose for a total of 250 mg every day 90 tablet 1 06/04/2024 12/01/2024 Active Start: 01-13-2023 End: 04-13-2023 take 1 tablet by mouth once daily lamoTRIgine (LAMICTAL) 200 mg tablet Indications: Major depressive disorder, remission status unspecified, unspecified whether recurrent , Bipolar affective disorder, remission status unspecified (HCC) Take 1 tablet by mouth once daily. 30 tablet 2 01/13/2023 Active Start: 11-23-2021 End: 01-07-2023 take 1 tablet by mouth once daily lamoTRIgine (LAMICTAL) 200 mg tablet Indications: Major depressive disorder, remission status unspecified, unspecified whether recurrent , Bipolar affective disorder, remission status unspecified (HCC) Take 1 tablet by mouth once daily. 30 tablet 0 12/08/2022 01/07/2023 Active Start: 06-08-2021 End: 08-06-2021 take 1 tablet by mouth once daily, then take 2 tablets by mouth once daily, then take 3 tablets by mouth once daily, then take 4 tablets by mouth once daily lamoTRIgine (LAMICTAL) 25 mg tablet Indications: Major depressive disorder, remission status unspecified, unspecified whether recurrent , Bipolar affective disorder, remission status unspecified (HCC) Take 1 tablet by mouth once daily for 14 days, THEN 2 tablets once daily for 14 days, THEN 3 tablets once daily for 10 days, THEN 4 tablets once daily. 192 tablet 0 06/08/2021 08/06/2021 Discontinued Start: 02-24-2021 End: 08-15-2021 take 2 tablets by mouth once daily Lamotrigine (Lamictal) 100 mg tablet Active 200 MG PO DAILY August 15, 2021 12:39pm Start: 02-24-2021 End: 08-15-2021 take 1 tablet by mouth once daily Lamotrigine (Lamictal) 100 mg Tablet Discontinued 100 MG PO DAILY February 24, 2021 12:00am August 15, 2021 1:41pm Comment on above: Take 1 tablet by amara th once daily. Take 1 tablet by amara th once daily for 14 days, THEN 2 tablets once daily for 14 days, THEN 3 tablets once daily for 10 days, THEN 4 tablets once daily. take 1 tablet by amara th once daily Take 1 tablet by amara th once daily for 14 days, THEN 2 tablets once daily. Take with 200 mg tablet.. lisinopril 30 mg oral tablet (20 sources) Angiotensin Converting Enzyme Inhibitor Start: 11-28-2023 take 1 tablet by mouth once daily lisinopril (ZESTRIL) 30 mg tablet Indications: Hypertension, essential Take 1 tablet by mouth once daily. 90 tablet 3 11/28/2023 Active Start: 10-24-2022 take 30 mg by mouth once daily Lisinopril Active 30 MG PO DAILY October 24, 2022 12:00am Start: 05-14-2022 End: 02-23-2024 lisinopril 10 mg oral tablet Dose : 10 mg = 1 tab(s), Oral, qDay, take one 10mg tablet with one 20mg tablet for 30mg total, # 30 tab(s), 0 Refill(s) Start Date: 10/20/22 Status: Ordered Quantity: 30.0 Unit: tab(s) Repeat number: 1 Start: 03-04-2022 End: 02-23-2024 lisinopril 20 mg oral tablet Dose : 20 mg = 1 tab(s), Oral, Daily, take one 10mg tablet with one 20mg tablet for 30mg total, # 90 tab(s), 0 Refill(s) Start Date: 10/20/22 Status: Ordered Quantity: 90.0 Unit: tab(s) Repeat number: 1 Start: 01-28-2022 take 1 tablet by amara th once daily lisinopril (ZESTRIL, PRINIVIL) 10 mg tablet Indications: Hypertension, essential Take 1 tablet by mouth once daily. 30 tablet 1 01/28/2022 Active Start: 08-07-2021 End: 01-24-2022 take 1 tablet by mouth once daily lisinopril (ZESTRIL, PRINIVIL) 10 mg tablet Indications: Primary hypertension Take 1 tablet by mouth once daily. 30 tablet 08/07/2021 01/24/2022 Discontinued Comment on above: Take 1 tablet by amara th once daily. methocarbamol 500 mg oral tablet (1 source) Muscle Relaxant Start: 023 End: 023 take 1 tablet by mouth every six hours as needed methocarbamol (ROBAXIN) 500 mg tablet Take 1 tablet by mouth every 6 hours as needed (Pain) for up to 3 days. 12 tablet 0 06/11/2022 06/14/2022 Active Comment on above: Take 1 tablet by amara th every 6 hours as needed (Pain) for up to 3 days. metoclopramide 10 mg oral tablet (2 sources) Dopamine-2 Receptor Antagonist Start: metoclopramide 10 mg oral tablet Dose : 10 mg = 1 tab(s), Oral, TID, PRN Nausea/Vomiting, # 120 tab(s), 0 Refill(s) Start Date: 10/20/22 Status: Ordered Quantity: 120.0 Unit: tab(s) Repeat number: 1 metroNIDAZOLE 500 mg oral tablet (2 sources) Nitroimidazole Antimicrobial Start: naproxen 500 mg oral tablet (1 source) Nonsteroidal Anti-inflammatory Drug Start: End: naproxen 500 mg oral tablet Dose : 500 mg = 1 tab(s), Oral, BID, X 7 day(s), # 14 tab(s), 0 Refill(s), 01/17/23 3:24:00 PM EDT Start Date: 01/10/23 Stop Date: 01/17/23 Status: Ordered nitrofurantoin, macrocrystals 25 mg / nitrofurantoin, monohydrate 75 mg oral capsule (2 sources) Nitrofuran Antibacterial Start: take 100 mg by mouth every twelve hours Nitrofurantoin Monohyd/M-Cryst Active 100 MG PO EVERY 12 HOURS February 18, 2022 11:00pm omeprazole 20 mg delayed release oral capsule (20 sources) Proton Pump Inhibitor Start: take 1 capsule by mouth twice daily before mealtime omeprazole (PRILOSEC) 20 mg capsule Indications: Gastroesophageal reflux disease without esophagitis , Chronic nausea Take 1 capsule by mouth two times a day. 1/2 hr before meal. 60 capsule 1 06/14/2024 Active Start: 04-23-2023 End: 06-12-2024 take 1 capsule by mouth twice daily before mealtime omeprazole (PRILOSEC) 20 mg capsule Indications: Gastroesophageal reflux disease without esophagitis , Chronic nausea Take 1 capsule by mouth two times a day. 1/2 hr before meal. 60 capsule 1 09/22/2023 06/12/2024 Discontinued Start: 04-07-2023 End: 12-13-2023 take 1 capsule by mouth once daily before breakfast omeprazole (PRILOSEC) 20 mg capsule Indications: Gastroesophageal reflux disease without esophagitis , Chronic nausea Take 1 capsule by mouth daily before breakfast. 1/2 hr before meal. 30 capsule 0 04/07/2023 04/23/2023 Discontinued Comment on above: Take 1 capsule by mo uth daily before breakfast. 1/2 hr before meal. Take 1 capsule by mo uth two times a day. 1/2 hr before meal. ondansetron 4 mg disintegrating oral tablet (20 sources) Serotonin-3 Receptor Antagonist Start: 04-07-20 End: 09-08-19 take 1 tablet by mouth every eight hours ondansetron orally disintegrating (ZOFRAN ODT) 4 mg disintegrating tablet Indications: Gastroesophageal reflux disease without esophagitis , Chronic nausea dissolve 1 tablet ON TONGUE every 8 hours 30 tablet 09/08/2024 Active Start: 03-10-2023 [facility] ondansetron orally disintegrating (ZOFRAN ODT) 4 mg disintegrating tablet dissolve 1 tablet ON TONGUE every 8 hours 20 tablet 0 03/10/2023 Active Start: 01-17-2023 take 4 mg by mouth e very six hours Ondansetron Active 4 MG PO EVERY 6 HOURS January 17, 2023 12:00am Start: 05-16-2022 take 4 mg by mouth e very six hours Ondansetron Active 4 MG PO EVERY 6 HOURS May 16, 2022 1:00am Start: 04-10-2022 End: 11-07-2022 take 1 tablet by mouth every eight hours ondansetron orally disintegrating (ZOFRAN ODT) 4 mg disintegrating tablet dissolve 1 tablet ON TONGUE every 8 hours 20 tablet 05/14/2022 11/07/2022 Discontinued Start: 11-21-2021 take 4 mg by mouth e very six hours Ondansetron Active 4 MG PO EVERY 6 HOURS November 20, 2021 11:00pm Start: 10-07-2020 End: 03-23-2022 take 4 mg by mouth every eight hours Ondansetron Discontinued 4 MG PO Q8H May 07, 2021 12:00am May 13, 2021 11:14am Start: 08-21-2020 End: 04-26-2021 take 4 mg by mouth every eight hours as needed Ondansetron Discontinued 4 MG PO EVERY 8 HOURS NEEDED 02 22August 21, 2020 12:00am September 04, 2020 12:03am Comment on above: Take 1 tablet by [facility] every 8 hours as needed. dissolve 1 tablet ON TONGUE every 8 hours oseltamivir 75 mg oral capsule (2 sources) Neuraminidase Inhibitor Start: 03-23-20 End: 03-28-20 take 1 capsule by mouth twice daily oseltamivir (TAMIFLU) 75 mg capsule Indications: Viral URI with cough Take 1 capsule by mouth twice daily for 5 days. 10 capsule 0 03/23/2022 03/28/2022 Active Comment on above: Take 1 capsule by mo [facility] twice daily for 5 days. pantoprazole 40 mg delayed release oral tablet (4 sources) Proton Pump Inhibitor Start: 07-17-19 take 1 tablet by mouth once daily pantoprazole DR (PROTONIX) 40 mg tablet Take 1 tablet by mouth once daily. 07/16/2024 Active predniSONE 10 mg oral tablet (20 sources) Start: 02-15-20 End: 02-20-20 take 4 tablets by mouth once daily predniSONE (DELTASONE) 10 mg tablet Take 4 tablets by mouth once daily for 5 days. 20 tablet 02/15/2024 02/20/2024 Active Start: 04-27-2023 take 60 mg by mouth once daily Prednisone Active 60 MG PO DAILY April 27, 2023 1:00am Start: 11-23-2022 Start: 09-02-2022 take 50 mg by mouth once daily Prednisone Active 50 MG PO DAILY 09 13September 02, 2022 12:00am Start: 08-01-2022 take 2 tablets by mo [facility] once daily, then take 1 tablet by mouth once daily Prednisone Active 10 MG PO As Directed August 01, 2022 12:00am take 2tabs once a day for two weeks, then one tab daily for two weeks Start: 04-19-2022 End: 09-23-2022 take 1 tablet by mouth once daily predniSONE (DELTASONE) 20 mg tablet Take 20 mg by mouth once daily. 04/19/2022 09/23/2022 Discontinued (Course of therapy completed) Start: 04-13-2022 End: 01-03-2023 take 30 mg by mouth once daily Prednisone Discontinued 30 MG PO DAILY 29 11April 13, 2022 1:00am May 14, 2022 2:14pm Start: 04-13-2022 End: 05-14-2022 Start: 12-19-2021 End: 12-24-2021 take 2 tablets by mouth once daily predniSONE (DELTASONE) 20 mg tablet Take 2 tablets by mouth once daily for 5 days. 10 tablet 0 12/19/2021 12/24/2021 Active Start: 09-26-2021 Prednisone Act kvng 10 MG PO DAILY September 26, 2021 11:32am 60 mg p.o. x2 days, 50 mg p.o. x2 days, 40 mg p.o. x2 days, 30 mg p.o. x2 days, 20 mg p.o. x2 days, 10 mg p.o. x2 days Start: 06-20-2021 End: 08-15-2021 Prednisone Discontinued 0 MG PO DAILY June 20, 2021 1:00am August 15, 2021 1:39pm Comment on above: Take 2 tablets by mo [facility] once daily for 5 days. Take 20 mg by mouth once daily. prochlorperazine 10 mg oral tablet (2 sources) Phenothiazine Start: 023 take 1 tablet by mouth three times daily Prochlorperazine Maleate (Compazine) 10 mg tablet Active 10 MG PO THREE TIMES A DAY March 31, 2023 1:00am promethazine hydrochloride 25 mg oral tablet (20 sources) Phenothiazine Start: 023 take 25 mg by mouth three times daily Promethazine Active 25 MG PO THREE TIMES A DAY 04 14July 27, 2023 12:00am Start: 05-23-2022 take 25 mg by mouth every six hours as needed Promethazine Active 25 MG PO EVERY 6 HOURS NEEDED May 23, 2022 1:00am Start: 04-13-2022 take 25 mg by mouth every six hours as needed Promethazine Active 25 MG PO EVERY 6 HOURS NEEDED April 13, 2022 12:00am Start: 03-23-2022 End: 04-07-2023 take 1 tablet by mouth every six hours as needed for nausea promethazine (PHENERGAN) 12.5 mg tablet Indications: Nausea and vomiting, unspecified vomiting type Take 1 tablet by mouth every 6 hours as needed for nausea/vomiting. 20 tablet 03/23/2022 04/07/2023 Discontinued (Course of therapy completed) Comment on above: Take 1 tablet by [facility] every 6 hours as needed for nausea/vomiting. 72 hr scopolamine 0.0139 mg/hr transdermal system (18 sources) Anticholinergic Start: 09-25-2022 scopolamine 1 mg/72 hr transdermal film, extended release Apply 1 patch(es), Topical, q72h, PRN as needed for motion sickness, # 4 EA, 0 Refill(s), 85 Start Date: 09/25/22 Status: Ordered Quantity: 4.0 Unit: EA Repeat number: 1 Start: 08-15-2022 End: 09-23-2022 Scopolamine Base Discontinue d 1 PATCH TD Every 3 Days August 15, 2022 12:00am September 23, 2022 3:48pm Start: 08-15-2022 End: 09-23-2022 1 ml ustekinumab 90 mg/ml prefilled syringe (20 sources) Interleukin-12 Antagonist, Interleukin-23 Antagonist Start: 04-07-2023 inject 1 dose by subcutaneous injection every month ustekinumab (STELARA) 90 mg/mL injection Take one dose subcutaneously monthly 04/07/2023 Active Start: 08-15-2022 End: 01-29-2023 Stelara PFS 90 mg/mL subcuta neous solution Dose : 90 mg = 1 mL, Subcutaneous, q8wk Start Date: 09/25/22 Status: Ordered Repeat number: 1 Start: 08-15-2022 End: 09-30-2022 Start: 07-17-2022 End: 08-15-2022 Ustekinumab (Stelara) 130 mg /26 mL solution Discontinued 520 MG .ROUTE ONCE 78 July 17, 2022 1:00am August 15, 2022 5:02pm If weight day of infusion is >85kg infuse 520mg. If weight is Start: 07-17-2022 End: 08-15-2022 Comment on above: Take one dose subcut aneously monthly Completed/Discontinued Medications Medication Drug Class(es) Dates Sig (Normalized) Sig (Original) azaTHIOprine 50 mg oral tablet (17 sources) Purine Antimetabolite Start: 05-14-2022 End: 05-20-2022 Azathioprine Discontinued 0 PO DAILY 35 May 14, 2022 1:00am May 20, 2022 5:18pm orally daily; take 50mg for one week then 100mg budesonide 3 mg delayed release oral capsule (16 sources) Corticosteroid Start: 05-20-2022 End: 08-01-2022 take 9 mg by mouth once daily Budesonide Discontinued 9 MG PO DAILY 45 May 20, 2022 1:00am August 01, 2022 4:39pm fluticasone propionate 0.05 mg/actuat metered dose nasal spray (12 sources) Corticosteroid Start: 04-29-2021 End: 02-11-2022 take 2 spray(s) by mouth once daily fluticasone (FLONASE) 50 mcg/actuation nasal spray Indications: Acute otitis media, right Use 2 Sprays in each nostril once daily. Rinse mouth after use. 1 Each 04/29/2021 02/11/2022 Discontinued (Course of therapy completed) Comment on above: Use 2 Sprays in each nostril once daily. Rinse mouth after use. gabapentin 100 mg oral capsule (20 sources) Anti-epileptic Agent Start: 06-20-2021 End: 08-15-2021 Gabapentin Discontinued June 20, 2021 1:00am August 15, 2021 1:39pm Comment on above: Take 100 mg by mouth three times daily. 12 hr guaiFENesin 600 mg extended release oral tablet (1 source) Start: 01-15-2021 End: 08-06-2021 take 2 tablets by mouth twice daily guaiFENesin (MUCINEX) 600 mg 12 hr tablet Indications: Sinobronchitis , Mild intermittent asthma with acute exacerbation Take 2 tablets by mouth twice daily. 30 tablet 1 01/15/2021 08/06/2021 Discontinued Comment on above: Take 2 tablets by [facility] twice daily. 1 ml ketorolac tromethamine 30 mg/ml injection (2 sources) Nonsteroidal Anti-inflammatory Drug, Cyclooxygenase Inhibitor Start: 01-28-2022 End: 01-28-2022 keTORolac 30 mg injection (TORADOL) Start: 08-07-2021 End: 08-07-2021 keTORolac 60 mg injection (T ORADOL) Problems Active Problems Problem Classification Problem Date Documented Date Episodic/Chronic Anxiety disorders (8 sources) Generalized anxiety disorder; Translations: [Generalized anxiety disorder] Onset: 11-28-2023 Chronic Asthma (8 sources) Mild intermittent asthma; Translations: [Mild intermittent asthma with (acute) exacerbation] Chronic Benign neoplasm of uterus (8 sources) Intramural leiomyoma of uterus; Translations: [Intramural leiomyoma of uterus] Onset: 08-19-2024 08-19-2024 Episodic Biliary tract disease (20 sources) Biliary calculus; Translations: [Calculus of gallbladder without cholecystitis without obstruction] 09-10-2022 Episodic Conditions associated with dizziness or vertigo (1 source) Dizziness; Translations: [Dizziness and giddiness] Episodic Disorders of lipid metabolism (3 sources) Mixed hyperlipidemia; Translations: [Mixed hyperlipidemia] Onset: 11-28-2023 Chronic Endometriosis (8 sources) Uterine adenomyosis; Translations: [Adenomyosis of the uterus] Onset: 08-19-2024 08-19-2024 Chronic Esophageal disorders (6 sources) Gastroesophageal reflux disease without esophagitis; Translations: [Gastro-esophageal reflux disease without esophagitis] 04-23-2023 Chronic Essential hypertension (20 sources) Essential hypertension; Translations: [Essential (primary) hypertension] Onset: 02-12-2022 Chronic Fluid and electrolyte disorders (14 sources) Dehydration; Translations: [Dehydration] 07-30-2022 Episodic Gastritis and duodenitis (16 sources) Acute gastritis; Translations: [Acute gastritis without bleeding] 05-31-2022 Episodic Headache; including migraine (1 source) Migraine with aura; Translations: [Migraine with aura, not intractable, without status migrainosus] Chronic Intestinal infection (20 sources) Viral gastroenteritis; Translations: [Viral intestinal infection, unspecified] 07-13-2022 Episodic Joint disorders and dislocations; trauma-related (1 source) Derangement of left knee; Translations: [Unspecified internal derangement of left knee] 11-14-2023 Chronic Menstrual disorders (5 sources) Menorrhagia; Translations: [Excessive and frequent menstruation with regular cycle] Onset: 08-19-2024 06-04-2024 Chronic Miscellaneous mental health disorders (2 sources) depression 09-10-2014 Episodic Mood disorders (15 sources) Bipolar disorder; Translations: [Bipolar disorder, unspecified] Onset: 11-28-2023 Chronic Noninfectious gastroenteritis (20 sources) Gastroenteritis; Translations: [Noninfective gastroenteritis and colitis, unspecified] 01-09-2022 Episodic Other circulatory disease (2 sources) Elevated blood-pressure reading without diagnosis of hypertension; Translations: [Elevated blood-pressure reading, without diagnosis of hypertension] Episodic Other connective tissue disease (2 sources) Pain in right hand; Translations: [Pain in right hand] Episodic Other female genital disorders (1 source) Abnormal uterine bleeding; Translations: [Abnormal uterine and vaginal bleeding, unspecified] 09-27-2024 Chronic Other female genital disorders (6 sources) Cyst of uterine adnexa; Translations: [Other noninflammatory disorders of ovary, fallopian tube and broad ligament] Onset: 08-19-2024 08-19-2024 Episodic Other lower respiratory disease (1 source) Cough; Translations: [Acute cough] Episodic Other lower respiratory disease (6 sources) Wheezing; Translations: [Wheezing] Episodic Other lower respiratory disease (1 source) Cough; Translations: [Acute cough] 12-19-2021 Episodic Other non-traumatic joint disorders (2 sources) Hip pain; Translations: [Pain in right hip] Episodic Other nutritional; endocrine; and metabolic disorders (20 sources) Obese class I; Translations: [Obesity, unspecified] Onset: 02-11-2022 Chronic Other screening for suspected conditions (not mental disorders or infectious disease) (2 sources) Imaging result abnormal; Translations: [Abnormal findings on diagnostic imaging of other specified body structures] Onset: 09-19-2024 Chronic Other upper respiratory infections (1 source) Bacterial sinusitis; Translations: [Chronic sinusitis, unspecified] 08-04-2024 Chronic Other upper respiratory infections (5 sources) Viral upper respiratory tract infection; Translations: [Acute upper respiratory infection, unspecified] Episodic Otitis media and related conditions (1 source) Acute right otitis media; Translations: [Otitis media, unspecified, right ear] 03-16-2023 Episodic Ovarian cyst (5 sources) Ruptured cyst of right ovary; Translations: [Unspecified ovarian cyst, right side] 10-28-2022 Episodic Regional enteritis and ulcerative colitis (20 sources) Crohn's disease; Translations: [Crohn's disease, unspecified, without complications] Onset: 02-15-2022 Chronic Residual codes; unclassified (6 sources) Past history of procedure; Translations: [Other specified postprocedural states] 10-26-2022 Episodic Residual codes; unclassified (4 sources) Other specified postprocedural states; Translations: [Other postprocedural status] 10-26-2022 Episodic Residual codes; unclassified (4 sources) Acquired absence of other specified parts of digestive tract; Translations: [Other postprocedural status] 10-26-2022 Episodic Residual codes; unclassified (1 source) Pain; Translations: [Pain, unspecified] 06-03-2023 Episodic Residual codes; unclassified (1 source) Failed encounter; Translations: [No-show for appointment] 02-05-2024 Episodic Spondylosis; intervertebral disc disorders; other back problems (4 sources) Acute thoracic back pain; Translations: [Pain in thoracic spine] Episodic Sprains and strains (1 source) Disorder of thoracic segment of trunk; Translations: [Strain of muscle and tendon of unspecified wall of thorax, initial encounter] Episodic Substance-related disorders (20 sources) Cannabis hyperemesis syndrome co-occurrent and due to cannabis abuse; Translations: [Cannabis abuse with other cannabis-induced disorder] Onset: 05-14-2022 05-14-2022 Chronic Substance-related disorders (9 sources) Cannabis abuse; Translations: [Cannabis use, unspecified, uncomplicated] 10-18-2022 Episodic Unclassified (1 source) Unknown / UNK(Unknown) Onset: 11-08-2016 Unclassified (1 source) Pre-Op Exam Onset: 09-27-2024 Past or Other Problems Problem Classification Problem Date Documented Da te Episodic/Chronic Abdominal pain (20 sources) Abdominal pain; Translations: [Unspecified abdominal pain] Onset: 05-07-2021 Episodic Headache; including migraine (20 sources) Headache; Translations: [Headache, unspecified headache type] Onset: 05-14-2022 Episodic Immunizations and screening for infectious disease (5 sources) Patient encounter status; Translations: [Encounter for immunization] Onset: 11-28-2023 11-28-2023 Episodic Nausea and vomiting (20 sources) Nausea, vomiting and diarrhea; Translations: [Nausea with vomiting, unspecified] Onset: 02-12-2022 Episodic Other gastrointestinal disorders (20 sources) History of Crohns disease; Translations: [Personal history of other diseases of the digestive system] Onset: 05-14-2022 05-14-2022 Episodic Other gastrointestinal disorders (20 sources) Diarrhea; Translations: [Diarrhea, unspecified] Onset: 05-14-2022 05-14-2022 Episodic Other gastrointestinal disorders (20 sources) Cyst of abdomen; Translations: [Other specified disorders of peritoneum] Onset: 12-04-2023 11-28-2023 Episodic Other gastrointestinal disorders (1 source) Other specified disorders of peritoneum; Translations: [Cystic lesion of abdominal viscera] Onset: 11-28-2023 Episodic Other non-traumatic joint disorders (6 sources) Pain in left knee; Translations: [Pain in joint, lower leg] Onset: 11-05-2023 09-08-2023 Episodic Other screening for suspected conditions (not mental disorders or infectious disease) (3 sources) Cancer cervix screening status; Translations: [Encounter for screening for malignant neoplasm of cervix] Onset: 11-28-2023 11-28-2023 Episodic Screening and history of mental health [...] Results Test Name Value Interpretation Reference Range Facility [facility] 09-27-2024 CNOV Office Visit (OBGYWM ) ----- IRVIN TAN ([id number]) 1985 F Date Time Provider Department 09/27/24 8:40 AM BENNIE BROWN OBGYWM During your visit today, we recorded the following information about you: Blood pressure Weight Height 118/78 86.2 kg 1.6 m Bennie Brown MD 09/27/2024 10:03 AM Signed Pre-Op History and Physical HPI: The patient is a 39 year old female presenting for pre-operative visit. She is scheduled for TLH, bilateral salpingectomy, cysto, for AUB, fibroid uterus , adenomyosis on 10/14/24. Procedure discussed along with risks, benefits and complications. Other alternatives discussed for management. Consent form signed? Yes. PAST MEDICAL HISTORY Diagnosis Date Anxiety and depression Bipolar affective (HCC) Crohn's disease (HCC) Diverticulosis Hemorrhoid PAST SURGICAL HISTORY Procedure Laterality Date DILATION AND CURETTAGE LIGATE FALLOPIAN TUBE REMOVAL GALLBLADDER 10/26/2022 At [facility] LEFT OP SURGERY Right artery repair after cutting herself Current Outpatient Medications Medication Sig Dispense Refill ondansetron orally disintegrating (ZOFRAN ODT) 4 mg disintegrating tablet dissolve 1 tablet ON TONGUE every 8 hours [address] (PROTONIX) 40 mg tablet Take 1 tablet by mouth once daily. omeprazole (PRILOSEC) 20 mg capsule Take 1 capsule by mouth two times a day. 1/2 hr before meal. (Patient not taking: Reported on 08/27/2024) 60 capsule 1 escitalopram oxalate (LEXAPRO) 20 mg tablet Take 1 tablet by mouth once daily. 90 tablet 1 lamoTRIgine (LAMICTAL) 25 mg tablet Take 2 tablets by mouth once daily. Take with 200 mg tablet. 180 tablet 1 lamoTRIgine (LAMICTAL) 200 mg tablet Take 1 tablet by mouth once daily. Take with additional 50 mg dose for a total of 250 mg every day 90 tablet 1 hydrOXYzine pamoate (VISTARIL) 25 mg capsule Take 1 capsule by mouth two times a day as needed for anxiety. 60 capsule 5 albuterol HFA (PROVENTIL HFA, VENTOLIN HFA) 90 mcg/actuation inhaler Inhale 2 Puffs as instructed every 6 hours as needed for wheezing/shortness of breath. 8.5 g 1 dicyclomine (BENTYL) 20 mg tablet Take 20 mg by mouth three times a day as needed. lisinopril (ZESTRIL) 30 mg tablet Take 1 tablet by mouth once daily. 90 tablet 3 ustekinumab (STELARA) 90 mg/mL injection Take one dose subcutaneously monthly albuterol HFA (PROVENTIL HFA, VENTOLIN HFA) 90 mcg/actuation inhaler Inhale 2 Puffs as instructed every 6 hours as needed for wheezing/shortness of breath. 1 Each 0 No current facility-administered medications for this visit. ALLERGIES: Amoxicillin and Tramadol PERSONAL HISTORY: Social History Tobacco Use Smoking status: Every Day Current packs/day: 1.00 Average packs/day: 1 pack/day for 13.0 years (13.0 ttl pk-yrs) Types: Cigarettes Smokeless tobacco: Never Vaping Use Vaping status: Never Used Substance Use Topics Alcohol use: Yes Comment: occasional Drug use: Yes Types: Marijuana Comment: daily FAMILY HISTORY: FAMILY HISTORY Problem Relation Age of Onset Depression Mother Bipolar disorder Mother No Known Problems Father No Known Problems Brother other (CABG) Maternal Grandfather No Known Problems Paternal Grandmother No Known Problems Paternal Grandfather REVIEW OF SYMPTOMS: negative except as noted above PHYSICAL EXAMINATION: VITALS: Last menstrual period 08/12/2024. GENERAL: The patient is well nourished, well hydrated in no acute distress. , The patient is oriented to time, place, and person. NECK: Supple. Full range of motion LUNGS: Clear to auscultation bilaterally. no wheezes, rhonchi or rales HEART: Regular rate and rhythm, Normal heart sounds, and No murmurs or gallops IMPRESSION: 39yo with AUB, fibroid uterus, adenomyosis PLAN: TLH, bilateral salpingectomy, Cysto Pt has been counseled on risks/benefits and alternatives of surgery including but not limited to anesthesia, bleeding, infection, injury to pelvic structures including bowel, bladder, ureters and vessels. Pt wishes to proceed with surgery at this time. Risk for transfusion, fistula formation reviewed Pre and post op instructions reviewed I have reviewed and updated past medical and surgical history, medications and allergies Bennie Nobles MD Referring Provider: BENNIE BROWN [[id number]] Allergies As of Date: 09/27/2024 Noted Allergy Reaction AMOXICILLIN 07/01/2020 2 - Rash TRAMADOL 07/01/2020 2 - Rash Date Reviewed: 09/27/2024 Reviewed by: Agnieszka De Jesus MA - Fully Assessed Reason for Visit: Pre-Op Exam [87] Primary Visit Diagnosis:Submucous leiomyoma of uterus [D25.0] Other Visit Diagnoses:Adenomyosis [N80.03] Abnormal uterine bleeding (AUB) [N93.9] Pre-op exam [Z01.818] Prescriptions as of 09/27/2024 - ondansetron orally disintegrating (ZOFRAN ODT) 4 mg disinteg (more content not included)... [facility] HISTORY PHYSICALon HISTORY PHYSICAL HNO ID: [id number] Author: BENNIE BROWN MD Service: ? Author Type: Physician Type: H&P Filed: 09/27/2024 10:03 Note Text: Pre-Op History and Physical HPI: The patient is a 39 year old female presenting for pre-operative visit. She is scheduled for TLH, bilateral salpingectomy, cysto, for AUB, fibroid uterus , adenomyosis on 10/14/24. Procedure discussed along with risks, benefits and complications. Other alternatives discussed for management. Consent form signed? Yes. PAST MEDICAL HISTORY Diagnosis Date Anxiety and depression Bipolar affective (HCC) Crohn's disease (HCC) Diverticulosis Hemorrhoid PAST SURGICAL HISTORY Procedure Laterality Date DILATION AND CURETTAGE LIGATE FALLOPIAN TUBE REMOVAL GALLBLADDER 10/26/2022 At [facility] LEFT OP SURGERY Right artery repair after cutting herself Current Outpatient Medications Medication Sig Dispense Refill ondansetron orally disintegrating (ZOFRAN ODT) 4 mg disintegrating tablet dissolve 1 tablet ON TONGUE every 8 hours [address] (PROTONIX) 40 mg tablet Take 1 tablet by mouth once daily. omeprazole (PRILOSEC) 20 mg capsule Take 1 capsule by mouth two times a day. 1/2 hr before meal. (Patient not taking: Reported on 08/27/2024) 60 capsule 1 escitalopram oxalate (LEXAPRO) 20 mg tablet Take 1 tablet by mouth once daily. 90 tablet 1 lamoTRIgine (LAMICTAL) 25 mg tablet Take 2 tablets by mouth once daily. Take with 200 mg tablet. 180 tablet 1 lamoTRIgine (LAMICTAL) 200 mg tablet Take 1 tablet by mouth once daily. Take with additional 50 mg dose for a total of 250 mg every day 90 tablet 1 hydrOXYzine pamoate (VISTARIL) 25 mg capsule Take 1 capsule by mouth two times a day as needed for anxiety. 60 capsule 5 albuterol HFA (PROVENTIL HFA, VENTOLIN HFA) 90 mcg/actuation inhaler Inhale 2 Puffs as instructed every 6 hours as needed for wheezing/shortness of breath. 8.5 g 1 dicyclomine (BENTYL) 20 mg tablet Take 20 mg by mouth three times a day as needed. lisinopril (ZESTRIL) 30 mg tablet Take 1 tablet by mouth once daily. 90 tablet 3 ustekinumab (STELARA) 90 mg/mL injection Take one dose subcutaneously monthly albuterol HFA (PROVENTIL HFA, VENTOLIN HFA) 90 mcg/actuation inhaler Inhale 2 Puffs as instructed every 6 hours as needed for wheezing/shortness of breath. 1 Each 0 No current facility-administered medications for this visit. ALLERGIES: Amoxicillin and Tramadol PERSONAL HISTORY: Social History Tobacco Use Smoking status: Every Day Current packs/day: 1.00 Average packs/day: 1 pack/day for 13.0 years (13.0 ttl pk-yrs) Types: Cigarettes Smokeless tobacco: Never Vaping Use Vaping status: Never Used Substance Use Topics Alcohol use: Yes Comment: occasional Drug use: Yes Types: Marijuana Comment: daily FAMILY HISTORY: FAMILY HISTORY Problem Relation Age of Onset Depression Mother Bipolar disorder Mother No Known Problems Father No Known Problems Brother other (CABG) Maternal Grandfather No Known Problems Paternal Grandmother No Known Problems Paternal Grandfather REVIEW OF SYMPTOMS: negative except as noted above PHYSICAL EXAMINATION: VITALS: Last menstrual period 08/12/2024. GENERAL: The patient is well nourished, well hydrated in no acute distress. , The patient is oriented to time, place, and person. NECK: Supple. Full range of motion LUNGS: Clear to auscultation bilaterally. no wheezes, rhonchi or rales HEART: Regular rate and rhythm, Normal heart sounds, and No murmurs or gallops IMPRESSION: 39yo with AUB, fibroid uterus, adenomyosis PLAN: TLH, bilateral salpingectomy, Cysto Pt has been counseled on risks/benefits and alternatives of surgery including but not limited to anesthesia, bleeding, infection, injury to pelvic structures including bowel, bladder, ureters and vessels. Pt wishes to proceed with surgery at this time. Risk for transfusion, fistula formation reviewed Pre and post op instructions reviewed I have reviewed and updated past medical and surgical history, medications and allergies Bennie Nobles MD [facility] .Auto Diffon 09-19-2024 Basophil, Absolute 0.1 10 3/mcL Normal 0.0-0.3 [facility] Comment on above: Performed By: #### C MP, ADIFF, ANEU, MDW, GFR, LIP, CBC #### [address] [address] Basophils/100 WBC (Bld) 0.8 % Normal 0.0-2.5 [facility] Comment on above: Performed By: #### C MP, ADIFF, ANEU, MDW, GFR, LIP, CBC #### [address] [address] Eosinophil, Absolute 0.1 10 3/mcL Normal 0.0-0.7 [facility] Comment on above: Performed By: #### C MP, ADIFF, ANEU, MDW, GFR, LIP, CBC #### [address] [address] Eosinophils/100 WBC (Bld) 1.3 % Normal 0.0-6.0 [facility] Comment on above: Performed By: #### C MP, ADIFF, ANEU, MDW, GFR, LIP, CBC #### [address] [address] Lymphocyte, Absolute 2.2 10 3/mcL Normal 0.9-4.3 [facility] Comment on above: Performed By: #### C MP, ADIFF, ANEU, MDW, GFR, LIP, CBC #### [address] [address] Lymphocytes/100 WBC (Bld) 34.5 % Normal 20.0-40.0 [facility] Comment on above: Performed By: #### C MP, ADIFF, ANEU, MDW, GFR, LIP, CBC #### [address] [address] Monocyte, Absolute 0.5 10 3/mcL Normal 0.1-1.4 [facility] Comment on above: Performed By: #### C MP, ADIFF, ANEU, MDW, GFR, LIP, CBC #### [address] [address] Monocytes/100 WBC (Bld) 8.5 % Normal 2.0-13.0 [facility] Comment on above: Performed By: #### C MP, ADIFF, ANEU, MDW, GFR, LIP, CBC #### [address] [address] Neutrophils/100 WBC (Bld) 54.9 % Normal 50.0-75.0 [facility] Comment on above: Performed By: #### C MP, ADIFF, ANEU, MDW, GFR, LIP, CBC #### [address] [address] .GFRon 09-19-2024 Estimated Glomerular Filtration Rate 85 ml/min/1.73sqm Normal [facility] Comment on above: Result Comment: Stages of Chronic Kidney Disease (CKD) Stage Description eGFR(ml/min/1.73 sq.m.) CKD 1 Normal kidney function or >=90 normal kindney function with possible kidney damage (ex. Proteinuria) CKD 2 Kidney damage with mild loss 60-89 of kidney function CKD 3a Mild to moderate loss of kidney 45-59 function CKD 3b Moderate to severe loss of 30-44 of kindey function CKD 4 Severe loss of kidney function 15-29 CKD 5 Kidney failure <15 Note: (go live 2024) the eGFR calculation was updated to the 2020 CKD-EPI creatinine equation without a race factor to calculate the eGFR results. Performed By: #### C MP, ADIFF, ANEU, MDW, GFR, LIP, CBC #### [address] [address] .MDWon 09-19-2024 Monocyte Distribution Width 17.43 Normal 0.00-20.00 [facility] Comment on above: Result Comment: For ED adult patients suspected of sepsis, MDW<=20.0 does not rule out sepsis or risk of sepsis Performed By: #### C LILLIE, SHELLEY, ANEU, MDW, GFR, LIP, CBC #### [address] [address] .NEUABSon 09-19-2024 Neutrophil, Absolute 3.5 10 3/mcL Normal 2.3-8.1 [facility] Comment on above: Performed By: #### C LILLIE, SHELLEY, ANEU, MDW, GFR, LIP, CBC #### [place] [address] CBCon 09-19-2024 Erythrocyte distribution width (RBC) [Ratio] 13.7 % Normal 11.5-15.5 [facility] Comment on above: Performed By: #### C LILLIE, SHELLEY, ANEU, MDW, GFR, LIP, CBC #### [place] [address] Hematocrit (Bld) [Volume fraction] 36.0 % Normal 34.0-46.0 [facility] Comment on above: Performed By: #### C LILLIE, SHELLEY, ANEU, MDW, GFR, LIP, CBC #### [place] [address] Hgb 12.4 G/dL Normal 12.0-16.0 [facility] Comment on above: Performed By: #### C LILLIE, SHELLEY, ANEU, MDW, GFR, LIP, CBC #### [place] [address] MCH (RBC) [Entitic mass] 31.3 pg Normal 27.0-33.0 [facility] Comment on above: Performed By: #### C LILLIE, SHELLEY, ANEU, MDW, GFR, LIP, CBC #### [place] [address] MCHC 34.5 G/dL Normal 32.0-36.0 [facility] Comment on above: Performed By: #### C MP, ADIFF, ANEU, MDW, GFR, LIP, CBC #### [address] [address] MCV (RBC) [Entitic vol] 90.8 fL Normal 80.0-99.0 [facility] Comment on above: Performed By: #### C MP, ADIFF, ANEU, MDW, GFR, LIP, CBC #### [address] [address] Platelet 386 10 3/mcL Normal 150-450 [facility] Comment on above: Performed By: #### C MP, ADIFF, ANEU, MDW, GFR, LIP, CBC #### [address] [address] Platelet mean volume (Bld) [Entitic vol] 6.9 fL Normal 6.6-10.5 [facility] Comment on above: Performed By: #### C MP, ADIFF, ANEU, MDW, GFR, LIP, CBC #### [address] [address] RBC 3.97 10 6/mcL Low 4.10-5.30 [facility] Comment on above: Performed By: #### C MP, ADIFF, ANEU, MDW, GFR, LIP, CBC #### [address] [address] WBC 6.4 10 3/mcL Normal 4.5-10.8 [facility] Comment on above: Performed By: #### C MP, ADIFF, ANEU, MDW, GFR, LIP, CBC #### [address] [address] CMPon 09-19-2024 Albumin Level 3.3 G/dL Low 3.5-5.0 [facility] Comment on above: Performed By: #### C MP, ADIFF, ANEU, MDW, GFR, LIP, CBC #### [address] [address] Albumin/Globulin [Mass ratio] 1.0 {ratio} Low 1.1-2.5 [facility] Comment on above: Performed By: #### C LILLIE, MC ROSA, MDW, GFR, LIP, CBC #### [place] [address] ALP [Catalytic activity/Vol] 91 U/L Normal 40-135 [facility] Comment on above: Performed By: #### C LILLIE, SHELLEY, MC, MDW, GFR, LIP, CBC #### [place] [address] ALT [Catalytic activity/Vol] 21 U/L Normal 14-59 [facility] Comment on above: Performed By: #### C LILLIE, MC ROSA, MDW, GFR, LIP, CBC #### [place] [address] AST [Catalytic activity/Vol] 10 U/L Normal 10-40 [facility] Comment on above: Performed By: #### C LILLIE, MC ROSA, MDW, GFR, LIP, CBC #### [place] [address] Bili Total 0.2 mg/dL Normal 0.2-1.0 [facility] Comment on above: Result Comment: Use of this assay is not recommended for patients undergoing treatment with eltrombopag due to the potential for falsely elevated results. Performed By: #### C LILLIE, SHELLEY, MC, MDW, GFR, LIP, CBC #### [place] [address] BUN/Creatinine Ratio 9 ratio Normal 7-27 [facility] Comment on above: Performed By: #### C LILLIE, SHELLEY, MC, MDW, GFR, LIP, CBC #### [place] [address] Calcium [Mass/Vol] 8.4 mg/dL Normal 8.4-10.2 [facility] Comment on above: Performed By: #### C LILLIE, SHELLEY, MC, MDW, GFR, LIP, CBC #### [place] [id number] Chloride [Moles/Vol] 107 mmol/L Normal 98-107 [facility] Comment on above: Performed By: #### C MP, ADLILIANA, ANEU, MDW, GFR, LIP, CBC #### [place] [address] CO2 [Moles/Vol] 30 mmol/L High 22-29 [facility] Comment on above: Performed By: #### C MP, ADIFF, ANEU, MDW, GFR, LIP, CBC #### [place] [address] Creatinine [Mass/Vol] 0.88 mg/dL Normal 0.51-0.95 [facility] Comment on above: Performed By: #### C MP, ADIFF, ANEU, MDW, GFR, LIP, CBC #### [place] [address] Electrolyte Balance 6.0 mEq/L Normal 4.0-15.0 [facility] Comment on above: Performed By: #### C MP, ADIFF, ANEU, MDW, GFR, LIP, CBC #### [place] [address] Globulin 3.4 G/dL Normal 2.7-4.4 [facility] Comment on above: Performed By: #### C MP, ADIFF, ANEU, MDW, GFR, LIP, CBC #### [place] [address] Glucose [Mass/Vol] 117 mg/dL High 70-105 [facility] Comment on above: Performed By: #### C MP, ADIFF, ANEU, MDW, GFR, LIP, CBC #### [place] [address] Potassium [Moles/Vol] 3.6 mmol/L Normal 3.5-5.1 [facility] Comment on above: Performed By: #### C MP, ADIFF, ANEU, MDW, GFR, LIP, CBC #### [place] [address] Sodium [Moles/Vol] 143 mmol/L Normal 136-145 [facility] Comment on above: Performed By: #### C SHELLEY MOREIRA ANEU, MDW, GFR, LIP, CBC #### [place] [address] [place], [place] [address] Total Protein 6.7 G/dL Normal 6.4-8.2 [facility] Comment on above: Performed By: #### C LILLIE, MC ROSA MDW, GFR, LIP, CBC #### [place] [address] [place], [place] [address] Urea nitrogen [Mass/Vol] 8 mg/dL Normal 7-18 [facility] Comment on above: Performed By: #### C LILLIE, MC ROSA, W, GFR, LIP, CBC #### [place] [address] [place], [place] [address] CT ABD/PELVIS W/ IV CONTRAST ONLYon 09-19-2024 CT ABD/PELVIS W/ IV CONTRAST ONLY ORIGINAL EXAMINATION: CT OF THE ABDOMEN AND PELVIS WITH CONTRAST 09/19/2024 7:46 pm TECHNIQUE: CT of the abdomen and pelvis was performed with the administration of intravenous contrast. Multiplanar reformatted images are provided for review. Automated exposure control, iterative reconstruction, and/or weight based adjustment of the mA/kV was utilized to reduce the radiation dose to as low as reasonably achievable. COMPARISON: CT abdomen pelvis with contrast 10/19/2022. HISTORY: ORDERING SYSTEM PROVIDED HISTORY: Reason for Exam: abdominal pain FINDINGS: Visualized portion of the lower chest demonstrates no acute abnormality. Liver is within normal limits for size and demonstrates a smooth contour. In ill-defined somewhat linear area of hypoattenuation is appreciated within the right hepatic lobe anteriorly. No abnormal enhancement is noted. The gallbladder is surgically absent. The spleen and pancreas are unremarkable. Right adrenal is unremarkable. The left adrenal again demonstrates a 2.0 x 2.3 cm mass which is increased in size from prior 1.7 x 1.8 cm. Kidneys are within normal limits for size and enhance symmetrically. No hydroureteronephrosis or nephroureterolithiasis is identified bilaterally. The urinary bladder is incompletely distended. Uterus and adnexa appear age-appropriate. Stomach is largely decompressed. Bowel gas is noted to the level of the rectum without evidence of obstruction. No dilated loops of bowel are identified. The appendix is visualized and unremarkable. Descending colonic diverticula are noted. No free air or fluid. No abdominal or pelvic adenopathy. No acute osseous or soft tissue abnormalities. IMPRESSION: 1. No acute abnormalities within the abdomen or pelvis. 2. Interval increase in size of a left adrenal mass. Recommend further evaluation with nonemergent adrenal protocol CT or MRI. 3. Ill-defined somewhat linear area of hypoattenuation within the right hepatic lobe anteriorly. This is nonspecific and may represent focal fatty infiltration. 4. Colonic diverticulosis without evidence of diverticulitis. Interpreted by: Dariusz Corcoran Preliminary Report By: Dariusz Corcoran Electronically signed By Dariusz Corcoran Dictated Date: 09/19/2024 7:47:10 PM Prelim Date: 09/19/2024 7:56:27 PM Sign Date: 09/19/2024 7:56:27 PM Ordering Provider: YULY Heath [facility] LABORATORYOrdered By: SYSTEM SYSTEM on 09-19-2024 Albumin BCP dye [Mass/Vol] 3.3 G/dL Low 3.5 - 5.0 G/dL AO ADM SS Albumin/Globulin [Mass ratio] 1.0 {ratio} Low 1.1 - 2.5 ratio AO ADM SS ALP [Catalytic activity/Vol] 91 U/L Normal 40 - 135 U/L AO ADM SS ALT With P-5'-P [Catalytic activity/Vol] 21 U/L Normal 14 - 59 U/L AO ADM SS AST With P-5'-P [Catalytic activity/Vol] 10 U/L Normal 10 - 40 U/L AO ADM SS Basophils (Bld) [#/Vol] 0.1 103/mcL Normal 0.0 - 0.3 10^3/mcL AO Workflow SS Basophils/100 WBC (Bld) 0.8 % Normal 0.0 - 2.5 % AO Workflow SS Bilirubin [Mass/Vol] 0.2 mg/dL Normal 0.2 - 1 .0 mg/dL AO ADM SS Comment on above: Interpretive Data: U se of this assay is not recommended for patients undergoing treatment with eltrombopag due to the potential for falsely elevated results. Calcium [Mass/Vol] 8.4 mg/dL Normal 8.4 - 10. 2 mg/dL AO ADM SS Chloride [Moles/Vol] 107 mmol/L Normal 98 - 10 7 mmol/L AO ADM SS CO2 [Moles/Vol] 30 mmol/L High 22 - 29 mmol/L AO ADM SS Creatinine [Mass/Vol] 0.88 mg/dL Normal 0.51 - 0.95 mg/dL AO ADM SS Electrolyte Balance 6.0 mEq/L Normal 4.0 - 15 .0 mEq/L AO ADM SS Eosinophil, Absolute 0.1 103/mcL Normal 0.0 - 0 .7 10^3/mcL AO Workflow SS Eosinophils/100 WBC (Bld) 1.3 % Normal 0.0 - 6.0 % AO Workflow SS Erythrocyte distribution width (RBC) [Ratio] 13.7 % Normal 11.5 - 15.5 % AO Workflow SS Estimated Glomerular Filtration Rate 85 ml/min/1.73sqm Invalid Interpretation Code AO Chemistry S Comment on above: Interpretive Data: Stages of Chronic Kidney Disease (CKD) Stage Description eGFR(ml/min/1.73 sq.m.) CKD 1 Normal kidney function or >=90 normal kindney function with possible kidney damage (ex. Proteinuria) CKD 2 Kidney damage with mild loss 60-89 of kidney function CKD 3a Mild to moderate loss of kidney 45-59 function CKD 3b Moderate to severe loss of 30-44 of kindey function CKD 4 Severe loss of kidney function 15-29 CKD 5 Kidney failure <15 Note: (go live 2024) the eGFR calculation was updated to the 2020 CKD-EPI creatinine equation without a race factor to calculate the eGFR results. Globulin 3.4 G/dL Normal 2.7 - 4.4 G/dL AO ADM SS Glucose [Mass/Vol] 117 mg/dL High 70 - 105 mg/dL AO ADM SS Hematocrit (Bld) [Volume fraction] 36.0 % Normal 34.0 - 46.0 % AO Workflow SS Hemoglobin (Bld) [Mass/Vol] 12.4 G/dL Normal 12.0 - 16.0 G/dL AO Workflow SS Lipase [Catalytic activity/Vol] 19 U/L Normal 16 - 77 U/L AO ADM SS Lymphocytes (Bld) [#/Vol] 2.2 103/mcL Normal 0.9 - 4.3 10^3/mcL AO Workflow SS Lymphocytes/100 WBC (Bld) 34.5 % Normal 20.0 - 40.0 % AO Workflow SS MCH (RBC) [Entitic mass] 31.3 pg Normal 27.0 - 33.0 pg AO Workflow SS MCHC 34.5 G/dL Normal 32.0 - 36.0 G/dL AO Workflow SS MCV (RBC) [Entitic vol] 90.8 fL Normal 80.0 - 99.0 fL AO Workflow SS Monocyte distribution width Auto (Bld) [Entitic vol] 17.43 1 Normal 0.00 - 20.00 AO Workflow SS Comment on above: Result Comment: For ED adult patients suspected of sepsis, MDW<=20.0 does not rule out sepsis or risk of sepsis Monocytes (Bld) [#/Vol] 0.5 103/mcL Normal 0.1 - 1.4 10^3/mcL AO Workflow SS Monocytes/100 WBC (Bld) 8.5 % Normal 2.0 - 13.0 % AO Workflow SS Neutrophils (Bld) [#/Vol] 3.5 103/mcL Normal 2.3 - 8.1 10^3/mcL AO Workflow SS Neutrophils/100 WBC (Bld) 54.9 % Normal 50.0 - 75.0 % AO Workflow SS Platelet mean volume (Bld) [Entitic vol] 6.9 fL Normal 6.6 - 10.5 fL AO Workflow SS Platelets (Bld) [#/Vol] 386 103/mcL Normal 150 - 450 10^3/mcL AO Workflow SS Potassium [Moles/Vol] 3.6 mmol/L Normal 3.5 - 5.1 mmol/L AO ADM SS Protein [Mass/Vol] 6.7 G/dL Normal 6.4 - 8.2 G/dL AO ADM SS RBC (Bld) [#/Vol] 3.97 106/mcL Low 4.10 - 5.3 0 10^6/mcL AO Workflow SS Sodium [Moles/Vol] 143 mmol/L Normal 136 - 145 mmol/L AO ADM SS Urea nitrogen [Mass/Vol] 8 mg/dL Normal 7 - 18 mg/dL AO ADM SS Urea nitrogen/Creatinine [Mass ratio] 9 ratio Normal 7 - 27 ratio AO ADM SS WBC (Bld) [#/Vol] 6.4 103/mcL Normal 4.5 - 10.8 10^3/mcL AO Workflow SS LABORATORYOrdered By: Sergio Brown on 09-19-2024 Appearance (U) Clear (09/19/24 6:37 PM) Normal Clear AO Auto Urine SS Bilirubin Ql (U) Negative (09/19/24 6:37 PM) Normal Negative AO Auto Urine SS Color (U) Yellow (09/19/24 6:37 PM) Normal AO Auto Urine SS Glucose Test strip (U) [Mass/Vol] Negative Normal Negative AO Auto Urine SS HCG ( test) Ql Negative (09/19/24 6:37 PM) Normal AO Manual Urine SS Hemoglobin Auto test strip (U) [Mass/Vol] Negative (09/19/24 6:37 PM) Normal Negative AO Auto Urine SS Ketones Ql (U) Negative Normal Negative AO Auto Urine SS test (u) int Not detected Invalid Interpretation Code AO Manual Urine SS UA Leuk Est Negative (09/19/24 6:37 PM) Normal Negative AO Auto Urine SS UA Nitrite Negative (09/19/24 6:37 PM) Normal Negative AO Auto Urine SS UA pH 6.0 (09/19/24 6:37 PM) Normal 5.0 - 8.0 AO Auto Urine SS UA Protein Negative Normal Negative AO Auto Urine SS UA Spec Grav 1.025 (09/19/24 6:37 PM) Normal 1.015-1.025 AO Auto Urine SS UA Specimen Type Clean Catch 3 (09/19/24 6:37 PM) Normal AO Auto Urine SS Comment on above: Result Comment: urin e strip was manually read UA Urobilinogen 0.2 E.U./dL Normal 0.2-1.0 AO Auto Urine SS LIPon 09-19-2024 Lipase Level 19 U/L Normal 16-77 [facility] Comment on above: Performed By: #### C MP, SHELLEY, MC, MDW, GFR, LIP, CBC #### [address] [address] PREGUon 09-19-2024 HCG ( test) Ql (U) Negative Normal [facility] Comment on above: Performed By: #### U A, PREGU #### [place] [id number] [place], [place] [address] test (u) int Not detected Invalid Interpretation Code [facility] Comment on above: Performed By: #### U A, PREGU #### [address] [address] UAon 09-19-2024 Color (U) Yellow Normal [facility] Comment on above: Performed By: #### U A, PREGU #### [address] [address] Glucose (U) [Mass/Vol] Negative Normal Negative [facility] Comment on above: Performed By: #### U A, PREGU #### [place] [address] Ketones Ql (U) Negative Normal Negative [facility] Comment on above: Performed By: #### U A, PREGU #### [place] [address] UA Appear Clear Normal Clear [facility] Comment on above: Performed By: #### U A, PREGU #### [place] [address] UA Blood Negative Normal Negative [facility] Comment on above: Performed By: #### U A, PREGU #### [place] [address] UA Leuk Est Negative Normal Negative [facility] Comment on above: Performed By: #### U A, PREGU #### [place] [address] UA Nitrite Negative Normal Negative [facility] Comment on above: Performed By: #### U A, PREGU #### [address] [address] UA pH 6.0 Normal 5.0 - 8.0 [facility] Comment on above: Performed By: #### U A, PREGU #### [place] [address] UA Protein Negative Normal Negative [facility] Comment on above: Performed By: #### U A, PREGU #### [place] [address] UA Spec Grav 1.025 Normal 1.015-1.025 [facility] Comment on above: Performed By: #### U A, PREGU #### [place] [address] UA Specimen Type Clean Catch Normal [facility] Comment on above: Result Comment: urin e strip was manually read Performed By: #### U A, PREGU #### [place] [address] UA Urobilinogen 0.2 E.U./dL Normal 0.2-1.0 [facility] Comment on above: Performed By: #### U A, PREGU #### [place] [address] Urobilinogen (U) [Mass/Vol] Negative Normal Negative [facility] Comment on above: Performed By: #### U A, PREGU #### [address] 09-09-[facility] IRVIN TAN ([id number]) 1985 F Date Time Provider Department 09/09/24 BENNIE BROWN OBGYWM During your visit today, we recorded the following information about you: Pamela Venegas LPN 09/09/2024 11:11 AM Signed Attempted to call patient with surgery dates. Voicemail is full. Christine Richmond 09/09/2024 3:07 PM Signed Patient called and requested 10/14/2024 and scheduled pr op for 09/27 Allergies As of Date: 09/09/2024 Noted Allergy Reaction AMOXICILLIN 07/01/2020 2 - Rash TRAMADOL 07/01/2020 2 - Rash Date Reviewed: 09/03/2024 Reviewed by: Briana Sharp LPN - Fully Assessed Prescriptions as of 09/15/2024 - ondansetron orally disintegrating (ZOFRAN ODT) 4 mg disintegrating tablet dissolve 1 tablet ON TONGUE every 8 hours - pantoprazole DR (PROTONIX) 40 mg tablet Take 1 tablet by mouth once daily. - omeprazole (PRILOSEC) 20 mg capsule Take 1 capsule by mouth two times a day. 1/2 hr before meal. - escitalopram oxalate (LEXAPRO) 20 mg tablet Take 1 tablet by mouth once daily. - lamoTRIgine (LAMICTAL) 25 mg tablet Take 2 tablets by mouth once daily. Take with 200 mg tablet. - lamoTRIgine (LAMICTAL) 200 mg tablet Take 1 tablet by mouth once daily. Take with additional 50 mg dose for a total of 250 mg every day - hydrOXYzine pamoate (VISTARIL) 25 mg capsule Take 1 capsule by mouth two times a day as needed for anxiety. - albuterol HFA (PROVENTIL HFA, VENTOLIN HFA) 90 mcg/actuation inhaler Inhale 2 Puffs as instructed every 6 hours as needed for wheezing/shortness of breath. - dicyclomine (BENTYL) 20 mg tablet Take 20 mg by mouth three times a day as needed. - lisinopril (ZESTRIL) 30 mg tablet Take 1 tablet by mouth once daily. - ustekinumab (STELARA) 90 mg/mL injection Take one dose subcutaneously monthly - albuterol HFA (PROVENTIL HFA, VENTOLIN HFA) 90 mcg/actuation inhaler Inhale 2 Puffs as instructed every 6 hours as needed for wheezing/shortness of breath. Problem List As Of Date 09/09/2024 Noted Resolved Obesity, Class I, BMI 30-34.9 [E66.811] 02/11/2022 Abdominal pain [R10.9] 05/07/2021 Cannabis hyperemesis syndrome concurrent with a*05/14/2022 Corneal abrasion [S05.00XA] 05/14/2022 Crohn's disease (HCC) [K50.90] 02/15/2022 Cystitis [N30.90] 05/14/2022 Diarrhea [R19.7] 05/14/2022 Essential (primary) hypertension [I10] 02/12/2022 Headache, unspecified headache type [R51.9] 05/14/2022 History of Crohn's disease [Z87.19] 05/14/2022 History of manic depressive disorder [Z86.59] 05/14/2022 Lumbar contusion [S30.0XXA] 05/14/2022 Nausea, vomiting, and diarrhea [R11.2, R19.7] 02/12/2022 Cystic lesion of abdominal viscera [K66.8] 12/04/2023 Paratubal cyst [N83.8] 08/19/2024 Intramural and submucous leiomyoma of uterus [D*08/19/2024 Adenomyosis of the uterus [N80.03] 08/19/2024 Encounter Status:Closed by PAMELA VENEGAS on 09/15/24 Normal [facility] CBC panel Auto (Bld)on 09-03 Erythrocyte distribution width (RBC) [Ratio] 13.3 % Normal 11.5-15.0 [facility] Comment on above: Order Comment: Speci men Type: BLOOD SPECIMENOrdering Facility: [facility] Address: [address] [place] [address] Performed By: #### 5 8410-2 ####[facility] [id number] [place] [address] [place] Hematocrit (Bld) [Volume fraction] 35.1 % Low 36.0-46.0 [facility] Comment on above: Order Comment: Speci men Type: BLOOD SPECIMENOrdering Facility: [facility] Address: [address] [place] [address] Performed By: #### 5 8410-2 ####[facility] [id number] [place] [address] [place] Hemoglobin (Bld) [Mass/Vol] 11.9 g/dL Normal 11.5-15.5 [facility] Comment on above: Order Comment: Speci men Type: BLOOD SPECIMENOrdering Facility: [facility] Address: [address] [place] [address] Performed By: #### 5 8410-2 ####[facility] SUSANLUZ [id number] [address] MCH (RBC) [Entitic mass] 30.4 pg Normal 26.0-34.0 [facility] Comment on above: Order Comment: Speci men Type: BLOOD SPECIMENOrdering Facility: [facility] Address: [address] [place] [address] Performed By: #### 5 8410-2 ####[facility] [id number] [address] [place] [facility] MCHC (RBC) [Mass/Vol] 33.9 g/dL Normal 30.5-36.0 [facility] Comment on above: Order Comment: Speci men Type: BLOOD SPECIMENOrdering Facility: [facility] Address: [address] [place] [address] Performed By: #### 5 8410-2 ####[facility]ITALWILFREDDA[facility] [id number] [address] [place] MCV (RBC) [Entitic vol] 89.5 fL Normal 80.0-100.0 [facility] Comment on above: Order Comment: Speci men Type: BLOOD SPECIMENOrdering Facility: [facility] Address: [address] [place] [address] Performed By: #### 5 8410-2 ####[facility] [id number] [address] [place] Nucleated RBC (Bld) [#/Vol] 10*3/uL Normal <0.01 [facility] Comment on above: Order Comment: Speci men Type: BLOOD SPECIMENOrdering Facility: [facility] Address: [address] [place] [address] Performed By: #### 5 8410-2 ####[facility] SUSANWNCLIA [id number] [place] [address] [place] Platelet mean volume (Bld) [Entitic vol] 8.7 fL Low 9.0-12.7 [facility] Comment on above: Order Comment: Speci men Type: BLOOD SPECIMENOrdering Facility: [facility] Address: [address] [place] [address] Performed By: #### 5 8410-2 ####[facility] H[facility]PITALWILFREDLIA [id number] [place] [address] [place] Platelets (Bld) [#/Vol] 401 10*3/uL High 150-400 [facility] Comment on above: Order Comment: Speci men Type: BLOOD SPECIMENOrdering Facility: [facility] Address: [address] [place] [address] Performed By: #### 5 8410-2 ####[facility]ITALNCLIA [id number] [place] [address] [place] RBC (Bld) [#/Vol] 3.92 10*6/uL Normal 3.90-5.20 [facility] Comment on above: Order Comment: Speci men Type: BLOOD SPECIMENOrdering Facility: [facility] Address: [address] [place] [address] Performed By: #### 5 8410-2 ####[facility] [id number] [place] [address] [place] WBC (Bld) [#/Vol] 5.84 10*3/uL Normal 3.70-11.00 [facility] Comment on above: Order Comment: Speci men Type: BLOOD SPECIMENOrdering Facility: [facility] Address: [address] [place] [address] Performed By: #### 5 8410-2 ####[facility]ITALNCLIA [id number] [place] [address] [place] CNOVon 09-03-2024 CNOV Office Visit (OBGYWM ) ----- IRVIN TAN ([id number]) 1985 F Date Time Provider Department 09/03/24 8:20 AM BENNIE BROWN OBGYWM During your visit today, we recorded the following information about you: Blood pressure Weight 126/78 85.3 kg Bennie Brown MD 09/03/2024 8:47 AM Signed Subjective The patient is a 39-year-old female with a history of Crohn's disease presenting for evaluation of heavy menstrual bleeding and dysmenorrhea. Menstrual Irregularities - Reports regular menstrual cycles every 28 days, but with heavy bleeding and significant pain. - Heavy bleeding has progressively worsened over the past few years, particularly since the of her second child. - Passes clots approximately the size of a quarter. - Changes tampons or pads every time she uses the bathroom or feels a gush of blood; has experienced bleeding through clothes and onto bed linens. - does feel fatigued and dizziness during bleeding episodes - Has not tried hormonal treatments for bleeding. Declines IUD Pelvic Pain - Reports significant pain during menstrual cycles. - Takes Bentyl for pain management, but reports it is hit or miss in terms of effectiveness. - Denies history of abdominal adhesions. Past Surgical History - Tubal ligation. - Two vaginal deliveries. Past Diagnostic Results - Ultrasound: Revealed a fibroid with a partial submucosal component and adenomyosis. - Pap Smear: Negative. Gastrointestinal: (+) nausea during cycles Genitourinary: (+) menorrhagia, (+) dysmenorrhea, (+) passing clots Objective Blood pressure 126/78, weight 85.3 kg (188 lb), last menstrual period 08/12/2024. General: Narrow pelvis. Imaging: - Ultrasound: Partial submucosal fibroid, probable endometrial polyp, and adenomyosis. - Endometrial biopsy - benign - secretory endometrium - Pap/HPV 05/2024 negative 1. Menorrhagia with regular cycle (N92.0) 2. Submucous uterine fibroid (D25.0) 3. Endometrial polyp (N84.0) 4. Adenomyosis of uterus (N80.03) - Menorrhagia with regular cycles, progressively worsening since the of the second child. Associated with significant dysmenorrhea and passage of clots approximately the size of a quarter. - Ultrasound reveals a submucous uterine fibroid, an endometrial polyp, and adenomyosis. - Discussed the benign nature of fibroids and their potential to cause bleeding and pain depending on location. - Educated on the option of hysteroscopic resection of the submucous fibroid and endometrial polyp, which involves no abdominal incisions and utilizes a camera through the cervix to shave down the fibroid. This procedure offers a shorter recovery time but carries the risk of incomplete resection and potential regrowth of the fibroid. - Patient expressed a preference for a definitive solution to avoid recurrence. - Performed a pelvic examination, noting a narrow pelvis and minimal cervical descent. - Determined patient is a suitable candidate for a total laparoscopic hysterectomy due to the presence of a fibroid uterus and adenomyosis. - Explained the surgical procedure, including the creation of three small incisions in the abdomen, removal of the uterus, cervix, and fallopian tubes, and closure of the vaginal cuff. - Discussed the importance of avoiding strenuous activity postoperatively to prevent complications such as dehiscence of the vaginal cuff. - Informed patient of the expected recovery time of 4-6 weeks, with potential return to non-strenuous work after 2 weeks if recovery is uncomplicated. - Ordered CBC and thyroid function tests to assess for anemia and thyroid abnormalities prior to surgery. - Scheduled surgery for October, with a preoperative appointment to be held within 30 days of the procedure. - Patient prefers surgery to be performed in [place] for convenience. - Patient understands and agrees with the treatment plan. Attestation Recording using [employer] software for draft documentation of the visit was discussed with the patient/authorized farm loan representative; all questions welcomed and answered. Patient/authorized farm loan representative agreed to proceed Medical Decision Making: Problems: Moderate: Acute illness with systemic symptoms Data: Unique test result(s) reviewed: 3+ Unique test(s) ordered: 2 Risk: High: Decision on elective major surgery w/ risk factors Medical Decision Making Level: 4 - Moderate Allergies As of Date: 09/03/2024 Noted Allergy Reaction AMOXICILLIN 07/01/2020 2 - Rash TRAMADOL 07/01/2020 2 - Rash Date Reviewed: 09/03/2024 Reviewed by: Briana Sharp LPN - Fully Assessed Reason for Visit: Surgery Consult [Other] Primary Visit Diagnosis:Menorrhagia with regular cycle [N92.0] Other Visit Diagnoses:Submucous uterine fibroid [D25.0] Endometrial polyp [N84.0] Adenomyosis of uterus [N (more content not included)... [facility] TSH SerPl-aCncon 09-03-2024 TSH Qn 0.801 m[IU]/L Normal 0.270-4.200 [facility] Comment on above: Order Comment: Speci men Type: BLOOD SPECIMENOrdering Facility: [facility] Address: [address] [place] [address] Result Comment: If t he patient is , TSH reference range varies by gestational period: First Trimester (weeks 9-12): 0.180-2.990 mIU/L Second Trimester: 0.110-3.980 mIU/L Third Trimester: 0.480-4.710 mIU/L Issac Casas et al. A Practical Approach for the Verifications and Determination of Site- and Trimester-Specific Reference Intervals for Thyroid Function tests in . Thyroid, 2019:29:3:412-420. Cain E, et al. 2017 Guidelines of the [place] [employer] for the Diagnosis and Management of Thyroid Disease during and the . Thyroid, 2017:27:3:315-389. Performed By: #### 3 016-3 ####[facility] LABCLIA [id number] [address] [place] CNOVon 08-27-2024 CNOV Office Visit (OBGYWM ) ----- IRVIN TAN ([id number]) 1985 F Date Time Provider Department 08/27/24 10:50 AM LISSA MEADE During your visit today, we recorded the following information about you: Blood pressure Weight Last Period 138/84 86.2 kg 08/12/24 Lissa Meade MD 08/27/2024 11:09 AM Signed Irvin is a 39 year old who presents today for an endometrial biopsy for heavy menses. Fibroids, adenomyosis, polyps - desires hysterectomy medicaid consent signed test: negative UNIVERSAL PROTOCOL / SAFETY CHECKLIST Procedure to be Performed: EMB Sign In: A Moment of CARE was completed. Appropriate PPE (Personal Protective Equipment) worn by all providers involved with the procedure. Special equipment not required. Patient/Surrogate Stated/Verified: Patient name, Date of , Relevant allergies, and The intended procedure Time Out: Relevant labs, photos, and/or imaging studies have been reviewed. Intended patient and procedure match the source document(s) (e.g. consent, HANDP, associated studies [imaging, pathology]) match the intended patient and procedure. Consent obtained and matches the intended procedure. Yes. Correct side/site is not applicable. Medications required for this procedure are not applicable. Fire risk assessed and is not applicable. Implants: are not applicable. Sign Out: Specimens are all correctly labeled and sent. All instruments, equipment, possible retained foreign bodies are accounted for. Yes. The post-procedure plan of care has been communicated to the patient or surrogate. PROCEDURE: EXTERNAL GENITALIA: Normal in appearance without lesions VAGINA: Normal in appearance without lesions BIOPSY: Speculum placed into the vagina with excellent visualization of the cervix. Cervix cleaned with betadine. Anterior lip of cervix grasped with single toothed tenaculum. Uterus sounded to 7 cm. Pipelle inserted into the uterus without difficulty and endometrial biopsy obtained. Specimen labeled and sent to pathology. Hemostasis achieved. Procedure Summary: Patient tolerated procedure well. ASSESSMENT: heavy menses PLAN: Specimens labeled and sent to Pathology. MD Olena Mustafa Tabatha, MA 08/27/2024 10:20 AM Signed YOUR RECOVERY After your biopsy you may have: Vaginal bleeding (less than a normal menstrual period) Mild cramping Do NOT put anything in the vagina for 1 week after your endometrial biopsy. This includes: tampons douches and refraining from having sexual intercourse If you have any discomfort, you may take an over the counter pain medication (motrin, advil, ibuprofen, tylenol, etc). If this does not relieve your discomfort, contact the office. It is okay to wear a sanitary pad until the discharge and spotting stops. RISKS Although problems seldom occur with endometrial biopsies, there can be some complications. You may feel faint during and shortly after the procedure as well as have some bleeding after the procedure. There is also a risk of infection after the procedure. These complications are rare and can be easily treated. You should contact you doctor is you have any of the following: Heavy bleeding (more than your normal period) Bleeding with clots Severe abdominal pain Fever (more than 100.4F) Foul smelling vaginal discharge RESULTS We will have the results of your biopsy in 1-2 weeks. If you do not hear the results of your biopsy after 2 weeks, please contact the office for the results. If you have any additional questions or concerns please do not hesitate to contact the office. Allergies As of Date: 08/27/2024 Noted Allergy Reaction AMOXICILLIN 07/01/2020 2 - Rash TRAMADOL 07/01/2020 2 - Rash Date Reviewed: 08/27/2024 Reviewed by: Lissa Meade MD - Fully Assessed Reason for Visit: Endometrial Biopsy [750] Primary Visit Diagnosis:Menorrhagia with regular cycle [N92.0] Other Visit Diagnoses:Intramural and submucous leiomyoma of uterus [D25.1, D25.0] Adenomyosis of the uterus [N80.03] Order(s):UA DIP,URINE HCG (POC) [7504111] Order #: [id number]. #:[id number] 13-LAB ENDOMETRIAL BIOPSY [8142253] Order #: [id number] SURGICAL PATHOLOGY [GLH8818] Order #: [id number]. #:[id number] Prescriptions as of 08/27/2024 - pantoprazole DR (PROTONIX) 40 mg tablet Take 1 tablet by mouth once daily. - ondansetron orally disintegrating (ZOFRAN ODT) 4 mg disintegrating tablet dissolve 1 tablet ON TONGUE every 8 hours - omeprazole (PRILOSEC) 20 mg capsule Take 1 capsule by mouth two times a day. 1/2 hr before meal. - escitalopram oxalate (LEXAPRO) 20 mg tablet Take 1 tablet by mouth once daily. - lamoTRIgine (LAMICTAL) 25 mg tablet Take 2 tablets by mouth once daily. Take with 200 mg tablet. - lamoTRIgine (LAMICTAL) 200 mg tablet Take 1 tablet (more content not included)... [facility] Pathology biopsy report Isaias (Tiss)on 08-27-2024 AP DISCLAIMER [facility] Comment on above: Order Comment: Speci men Type: TISSUE SPECIMEN [facility] Address: [address] [place] [address] Result Comment: Bala kamara Developed Test (LDT) Disclaimer: Performance characteristics of immunohistochemical, immunofluorescent, and chromogenic in-situ hybridization tests have been determined by the performing laboratory within [facility] and Laboratory Medicine Department ([facility], [facility], [facility], [facility], [facility], or [facility]) in a manner consistent with CLIA requirements. One or more of these tests may not have been cleared or approved by the FDA. [facility] is regulated under CLIA as qualified to perform high-complexity testing. These tests are used for clinical purposes. These should not be regarded as investigational or for research. Positive and negative controls stain appropriately. Performed By: #### 6 6121-5 #### [facility] CLIA [id number] [address] [place] [address] [place] CASE REPORT [facility] Comment on above: Order Comment: Speci men Type: TISSUE SPECIMEN [facility] Address: [address] [place] [address] Result Comment: Surg ica Pathology Report Case: [id number] Authorizing Provider: Lissa Meade MD Collected: 08/27/2024 10:52 AM Ordering Location: OB/Gynecology Received: 08/27/2024 11:16 AM Pathologist: Shemar Acosta MD Specimen: Endometrium, Biopsy Performed By: #### 6 6121-5 #### [facility] CLIA [id number] [address] [place] [address] [place] CLINICAL HISTORY menorrhagia with reg ular cycles [facility] Comment on above: Order Comment: Speci men Type: TISSUE SPECIMEN [facility] Address: [address] [place] [address] Performed By: #### 6 6121-5 #### [facility] CLIA [id number] [address] [place] [address] [place] FINAL DIAGNOSIS [facility] Comment on above: Order Comment: Speci men Type: TISSUE SPECIMEN [facility] Address: [address] [place] [address] Result Comment: Endo metrium, biopsy: - Secretory endometrium. ACV/bs 08/30/2024 at 0856 EDT Performed By: #### 6 6121-5 #### [facility] CLIA [id number] [address] [place] [address] [place] FINAL PERFORMING LAB Normal [facility] Comment on above: Order Comment: Speci men Type: TISSUE SPECIMEN [facility] Address: [address] [place], [place] [id number] Result Comment: Diag nostic interpretation performed at: [facility], [address] [place] [address] [place] [address] CLIA# [id number] [place] Policy Specialist: Vince Sanabria MD Performed By: #### 6 6121-5 #### [facility] CLIA [id number] [address] [place] [address] [place] GROSS DESCRIPTION Normal [facility] Comment on above: Order Comment: Speci men Type: TISSUE SPECIMEN [facility] Address: [address] [place] [address] Result Comment: A. E ndometrium, Biopsy Received in formalin are multiple jameson, soft segments of tissue aggregating to 2.0 x 1.9 x 0.3 cm. Totally submitted in one cassette. Gross examination performed at [facility], [address] [place], [place] [id number] JT 08/27/2024 5:31 PM Performed By: #### 6 6121-5 #### [facility] CLIA [id number] [address] [place] [address] [place] [address] [place] UA DIP,URINE HCG (POC)on Beta HCG ( test) Ql (U) Negative Negative [facility] Comment on above: Location:[facility], [place], [address] Care Support Representative (POCT) Internal QC OK [facility] Location:[facility], [facility], [place], [address] [facility] POINT OF CARE [facility] US Pelvison 08-19-2024 Indication pelvic pain, menorrhagia with regular cycle Impression The uterus is axial and measures 77 mm x 40 mm x 51 mm. The myometrium is heterogeneous, asymmetrically thickened, echogenic suggestive of adenomyosis. In addition, two fibroids are observed and are described below. The endometrial cavity contains a small amount of fluid and measures 8.8 mm in thickness. Fibroid(s): 1. Right lateral posterior wall intramural with a partial submucosal component fibroid measures 25 mm x 26 mm x 22 mm. 2. Left lateral posterior wall intramural fibroid measures 12 mm x 11 mm x 10 mm. There is an echogenic structure within the posterior endometrium with vascular flow that measures 13 mm x 6 mm x 4 mm and is consistent with a polyp. The right ovary measures 20 mm x 15 mm x 16 mm. There is a right simple paraovarian cyst that measures 11.9 mm x 14.8 mm x 11.7 mm. The left ovary measures 26 mm x 19 mm x 20 mm. There is free fluid visualized. Technique: Three dimensional imaging was created on a dedicated stand-alone 3D workstation with images created and archived, and supervised and reviewed by the interpreting physician utilizing images from a US Scan performed on 08/19/24. Duplex scan was performed using B-Mode/simmons scale imaging and Doppler spectral analysis and color flow. Recommendations Consider SIS for further evaluation of endometrial cavity if clinically indicated. Simple paraovarian/paratubal cyst, no follow up imaging is needed. Ultrasound findings suggestive for adenomyosis. Clinical correlation is recommended. Menstrual History LMP on 08/12/2024 Method Transabdominal, transvaginal, 3D ultrasound examination, Color Doppler examination. View: Adequate visualization Uterus Uterus: Visualized Uterus position: axial Description of uterine malformations: none Myometrium: heterogeneous, asymmetrically thickened, echogenic Endometrium: trace intracavitary fluid: anechogenic, contour distorted by adjacent fibroid, possible polyp noted Uterus length 77 mm Uterus width 51 mm Uterus height 40 mm Uterus Vol 81.7 cm Endometrial thickness, total 8.8 mm Fibroids: Fibroids identified Uterine fibroid D1 25 mm Uterine fibroid D2 26 mm Uterine fibroid D3 22 mm Uterine fibroid mean 24.5 mm Uterine fibroid vol 7.657 cm Uterine fibroids findings: Right lateral posterior wall. intramural vs , Submucous, visualized without fluid enhancement Uterine fibroid D1 12 mm Uterine fibroid D2 11 mm Uterine fibroid D3 10 mm Uterine fibroid mean 11.0 mm Uterine fibroid vol 0.683 cm Uterine fibroids findings: Left lateral posterior wall. intramural Polyps: Polyps identified Uterine polyp D1 13 mm Uterine polyp D2 6 mm Uterine polyp D3 4 mm Uterine polyp mean 7.7 mm Doppler: vascular flow visualized Uterine polyp findings: Posterior Right Ovary Rt ovary: Visualized Rt ovary morphology: premenopausal normal follicular Rt ovary D1 20 mm Rt ovary D2 15 mm Rt ovary D3 16 mm Rt ovary Vol 2.5 cm Right Adnexal Mass Findings: unilocular , anechoic cystic contents. Size 11.9 mm x 14.8 mm x 11.7 mm. Mean 12.8 mm. Vol 1.079 cm . Findings consistent with a para-ovarian cyst Left Ovary Lt ovary: Visualized Lt ovary morphology: premenopausal with dominant follicle Lt ovary D1 26 mm Lt ovary D2 19 mm Lt ovary D3 20 mm Lt ovary Vol 5.3 cm Cul de Sac Visualized. free fluid visualized: trace Procedure To characterize the endometrial polyp, three dimensional imaging was created on a dedicated stand-alone 3D workstation with images created and archived, and supervised and reviewed by the interpreting physician utilizing images from an ultrasound scan performed today. Performed By: Pratibha Gann RDMS Read By: Luzmaria Bañuelos M.D. MATERNAL MEDICINE [facility] Radiology Study observation (narrative) [facility] CNOVon 08-04-2024 CNOV Office Visit (WSTR ) ----- IRVIN TAN ([id number]) 1985 F Date Time Provider Department 08/04/24 5:15 PM GENO RODRIGES [facility] During your visit today, we recorded the following information about you: Temperature Pulse Respiration Blood pressure 97.8 degrees 83/minute 16/minute 134/82 Weight 84.7 kg Geno Rodriges PA 08/04/2024 5:26 PM Signed [facility] Subjective Irvin Tan is a 39 year old female. Patient presents with: Sore Throat: ST x 2 weeks HPI 39-year-old female presents for sore throat x 2 weeks. Patient states she starting sore throat 2 weeks ago, then went away and returned about 3 to 4 days ago. She has had nasal congestion for 2 weeks. She has a mild cough. No chest pain or shortness of breath. No fevers. No vomiting or diarrhea. Still able to eat and drink. She has some pressure and pain in the ears and sinus pressure. She has tried allergy medication without much improvement in symptoms. No other complaint PAST MEDICAL HISTORY Diagnosis Date Anxiety and depression Bipolar affective (HCC) Crohn's disease (HCC) Diverticulosis Hemorrhoid PAST SURGICAL HISTORY Procedure Laterality Date DILATION AND CURETTAGE LIGATE FALLOPIAN TUBE REMOVAL GALLBLADDER 10/26/2022 At [facility] LEFT OP SURGERY Right artery repair after cutting herself ALLERGIES Amoxicillin and Tramadol MEDICATIONS ondansetron orally disintegrating (ZOFRAN ODT) 4 mg disintegrating tablet dissolve 1 tablet ON TONGUE every 8 hours omeprazole (PRILOSEC) 20 mg capsule Take 1 capsule by mouth two times a day. 1/2 hr before meal. escitalopram oxalate (LEXAPRO) 20 mg tablet Take 1 tablet by mouth once daily. lamoTRIgine (LAMICTAL) 25 mg tablet Take 2 tablets by mouth once daily. Take with 200 mg tablet. lamoTRIgine (LAMICTAL) 200 mg tablet Take 1 tablet by mouth once daily. Take with additional 50 mg dose for a total of 250 mg every day hydrOXYzine pamoate (VISTARIL) 25 mg capsule Take 1 capsule by mouth two times a day as needed for anxiety. albuterol HFA (PROVENTIL HFA, VENTOLIN HFA) 90 mcg/actuation inhaler Inhale 2 Puffs as instructed every 6 hours as needed for wheezing/shortness of breath. dicyclomine (BENTYL) 20 mg tablet Take 20 mg by mouth three times a day as needed. lisinopril (ZESTRIL) 30 mg tablet Take 1 tablet by mouth once daily. ustekinumab (STELARA) 90 mg/mL injection Take one dose subcutaneously monthly albuterol HFA (PROVENTIL HFA, VENTOLIN HFA) 90 mcg/actuation inhaler Inhale 2 Puffs as instructed every 6 hours as needed for wheezing/shortness of breath. FAMILY HISTORY Problem Relation Age of Onset Depression Mother Bipolar disorder Mother No Known Problems Father No Known Problems Brother other (CABG) Maternal Grandfather No Known Problems Paternal Grandmother No Known Problems Paternal Grandfather Social History Tobacco Use Smoking status: Every Day Current packs/day: 1.00 Average packs/day: 1 pack/day for 13.0 years (13.0 ttl pk-yrs) Types: Cigarettes Smokeless tobacco: Never Vaping Use Vaping status: Never Used Substance Use Topics Alcohol use: Yes Comment: occasional Drug use: Yes Types: Marijuana Comment: daily Review of Systems Constitutional: Negative for chills and fever. HENT: Positive for congestion, sinus pressure and sore throat. Negative for ear pain. Respiratory: Positive for cough. Negative for shortness of breath. Cardiovascular: Negative for chest pain. Gastrointestinal: Negative for diarrhea and vomiting. Objective BP 134/82 Pulse 83 Temp 36.6 ?C (97.8 ?F) (Tympanic) Resp 16 Wt 84.7 kg (186 lb 11.7 oz) LMP 04/30/2024 SpO2 98% BMI 33.08 kg/m? Physical Exam Vitals and nursing note reviewed. Constitutional: General: She is not in acute distress. Appearance: Normal appearance. She is not toxic-appearing. HENT: Right Ear: Tympanic membrane and ear canal normal. Left Ear: Tympanic membrane and ear canal normal. Nose: Mucosal edema and congestion present. Right Sinus: Maxillary sinus tenderness present. Left Sinus: Maxillary sinus tenderness present. Mouth/Throat: Mouth: Mucous membranes are moist. Pharynx: Uvula midline. Posterior oropharyngeal erythema present. Tonsils: No tonsillar exudate or tonsillar abscesses. 1+ on the right. 1+ on the left. Eyes: Conjunctiva/sclera: Conjunctivae normal. Cardiovascular: Rate and Rhythm: Normal rate and regular rhythm. Pulmonary: Effort: Pulmonary effort is normal. Breath sounds: Normal breath sounds. Skin: General: Skin is warm and dry. Neurological: Mental Status: She is alert. {ASSESSMENT/PLAN: 1. Sore throat - ICD9: 462, ICD10: J02.9 (primary diagnosis) - suspect viral - Group A strep molecular testing negative - Discussed supportive care treatment with fluids, rest and analgesia. - STREP A MOLEC (more content not included)... [facility] STREP A MOLECULAR (POC)on Procedural Control Valid [facility] Strep A (POCT) Negative Negative [facility] CNOVon 06-04-2024 CNOV Office Visit (OBGYWM ) ----- IRVIN TAN ([id number]) 1985 F Date Time Provider Department 06/04/24 2:20 PM LISSA MEADE OBRANJITH During your visit today, we recorded the following information about you: Blood pressure Weight Height Last Period 102/70 83.6 kg 1.6 m 04/30/24 Lissa Meade MD 06/04/2024 2:39 PM Signed Surveillance Specialist offered: Patient declines. Irvin is a 39 year old who presents for an annual gynecologic exam with complaints, heavy bleeding and pelvic pain. Periods 6 days long. Clotting for most of the 6 days. Still very regular. Nausea with pain during periods. Still get period: Yes Bleeding amount bothersome: Yes Bleeding between periods: No Period symptoms: Breast tenderness; Cramps; Pelvic pain; None Number of lifetime partners: 10 control frequency: Never HPV vaccine: Yes; HPV:negative Last pap smear: never History of abnormal pap: No, all prior PAP smears have been normal Bothersome pelvic pain: Yes Last mammogram: never OB History T0 L2 SAB0 IAB0 Ectopic0 Multiple0 Live Births0 Healthcare Corporate Account Director History LMP: 04/30/2024, Having periods Age at Menarche: 11 Age at First : Age at Menopause: Healthcare Corporate Account Director History Comments: Sexual Activity: Not Currently; Female Contraception: Tubal Ligation Menstrual Tracking History Flowsheet Row Office Visit from 06/04/2024 in OB/Gynecology Period Cycle (Days) 30 Period Duration (Days) 6 Menstrual Flow Heavy PAST MEDICAL HISTORY Diagnosis Date Anxiety and depression Bipolar affective (HCC) Crohn's disease (HCC) Diverticulosis Hemorrhoid PAST SURGICAL HISTORY Procedure Laterality Date DILATION AND CURETTAGE LIGATE FALLOPIAN TUBE REMOVAL GALLBLADDER 10/26/2022 At [facility] WRIST LEFT OP SURGERY Right artery repair after cutting herself FAMILY HISTORY Problem Relation Age of Onset Depression Mother Bipolar disorder Mother No Known Problems Father No Known Problems Brother other (CABG) Maternal Grandfather No Known Problems Paternal Grandmother No Known Problems Paternal Grandfather SOCIAL HISTORY Social History Tobacco Use Smoking status: Every Day Current packs/day: 1.00 Average packs/day: 1 pack/day for 13.0 years (13.0 ttl pk-yrs) Types: Cigarettes Smokeless tobacco: Never Vaping Use Vaping status: Never Used Substance Use Topics Alcohol use: Yes Comment: occasional Drug use: Yes Types: Marijuana Comment: daily REVIEW OF SYSTEMS Abdomen: No abdominal pain, nausea, vomiting, diarrhea, or constipation. No bloating, early satiety, indigestion, or increased flatulence. Bladder: No dysuria, gross hematuria, urinary frequency, urinary urgency, or incontinence. Breast: No breast lumps, nipple d/c, overlying skin changes, redness or skin retraction. Allergies and current medication updated:Yes SENSITIVE EXAM: The sensitive examination was discussed with the Patient or Patient's Authorized Systems Development Manager. As applicable, any other physician, advance practice provider, medical student, or other health professional student that will be observing or involved in the sensitive examination for educational or training purposes was discussed with the Patient or Authorized Systems Development Manager. The Patient or Authorized Systems Development Manager has agreed to proceed with the sensitive examination. (Sensitive examination includes inspection and/or palpation of the breasts, pelvis, prostate and anorectal regions). EXAM: BP 102/70 Ht 5' 3 (1.60m) Wt 184 lb 6.4 oz (83.6kg) LMP 04/30/2024 BMI 32.67 kg/(m2). GENERAL: pleasant, female in no apparent distress HEENT: Normocephalic, atraumatic, mucus membranes moist, and no lesions NECK: Supple, full range of motion, no adenopathy, and thyroid normal DERMATOLOGY: Normal, without lesions, non-icteric, and non-hirsute BREAST: soft, non-tender, symmetric, no dominant mass, normal nipple-areolar complex, no lymphadenopathy, and no nipple discharge CHEST: Normal inspiratory effort ABDOMEN: soft, non-tender, and no masses PELVIC: external genitalia normal, normal Bartholin's glands, urethra, [place]'s glands, no vulvar lesions, no cervical lesions, good vaginal support, physiologic discharge present, normal appearing perineal body and perianal region BIMANUAL: deferred RECTOVAGINAL: deferred. NEURO: alert and oriented x3,exam grossly non-focal EXTREMITIES: normal ASSESSMENT/PLAN: 1) Health maintenance: Pap done with HPV. Mammogram starting age 40. 2) Contraception: tubal sterilization. Contraceptive options reviewed and information provided. 3) STD screening: Declined STD check. 4) Follow up one year or sooner as needed 5) US ordered to evaluate heavy menses Lissa Meade MD Referring Provider: SARMAD WREN [[id number]] Allergies As of Date: 06/04/2024 Noted Allergy Reaction AMOXICILLIN 07/01/19 (more content not included)... [facility] HIGH RISK HUMAN PAPILLOMA JACOBY (HPV), PCR FOR DETECTION AND GENOTYPINGon 06-04-2024 HPV 16 Ag Ql (Unsp spec) Not detected Normal Not [facility] Comment on above: Order Comment: Speci men Type: FLUID SPECIMENOrdering Facility: [facility] Address: [address] [place] [address] Performed By: #### H PVHRT ####[facility] [id number] [place] [address] [place] HPV 18 Ag Ql (Unsp spec) Not detected Normal Not detected [facility] Comment on above: Order Comment: Speci men Type: FLUID SPECIMENOrdering Facility: [facility] Address: [address] [place] [address] Performed By: #### H PVHRT ####[facility] [id number] [place] [address] [place] HPV 31+33+35+39+45+51+52+5 6+58+59+66+68 DNA DEAN+probe Ql (Cvx) Not detected Normal Not detected [facility] Comment on above: Order Comment: Speci men Type: FLUID SPECIMENOrdering Facility: [facility] Address: [address] [place] [address] Result Comment: High Risk HPV Other Type includes HPV types 31, 33, 35, 39, 45, 51, 52, 56, 58, 59, 66 and 68. Performed By: #### H PVHRT ####[facility] [id number] [place] [address] [place] PAP TESTon 06-04-2024 ADEQUACY Satisfactory for interpretation. [facility] Comment on above: Order Comment: Speci men Type: FLUID SPECIMEN [facility] Address: [address] [place] [address] Performed By: #### L [id number] #### [facility] CLIA [id number] [address] [place] [address] [place] [facility] CLIA [id number] [address] [place] [address] [place] CASE REPORT [facility] Comment on above: Order Comment: Speci men Type: FLUID SPECIMEN [facility] Address: [address] [place] [address] Result Comment: Gyne cologic Cytology Report Case: [id number] Authorizing Provider: Lissa Meade MD Collected: 06/04/2024 02:30 PM Ordering Location: OB/Gynecology Received: 06/04/2024 04:20 PM First Screen: Mohorcic, Yaima, CT, ASCP Specimen: Pap Test, ThinPrep, Cervix Performed By: #### L [id number] #### [facility] CLIA [id number] [address] [place] [address] [place] [facility] CLIA [id number] [address] [place] [address] [place] CLINICAL HISTORY, CYTOLOGY, SENIOR COMPENSATION CONSULTANT Routine Exam [facility] Comment on above: Order Comment: Speci men Type: FLUID SPECIMEN [facility] Address: [address] [place] [address] Performed By: #### L [id number] #### [facility] CLIA [id number] [address] [place] [address] [place] [facility] CLIA [id number] [address] [place] [address] [place] FINAL PERFORMING LAB Normal [facility] Comment on above: Order Comment: Speci men Type: FLUID SPECIMEN [facility] Address: [address] [place] [address] Result Comment: Tech nical component, contracting specialist screening performed at [facility], [address] [place] [address] CLIA# [id number] Diagnostic interpretation performed at [facility], [address] [place] [address] CLIA# [id number] American Indian Policy Specialist: Bela Booker M.D. Performed By: #### L [id number] #### [facility] CLIA [id number] [address] [place] [address] [place] [facility] CLIA [id number] [address] [place] [address] [place] INTERPRETATION, CYTOLOGY, SENIOR COMPENSATION CONSULTANT [facility] Comment on above: Order Comment: Speci men Type: FLUID SPECIMEN [facility] Address: [address] [place] [address] Result Comment: Nega tive for intraepithelial lesion or malignancy. Performed By: #### L [id number] #### [facility] CLIA [id number] [address] [place] [address] [place] [facility] CLIA [id number] [address] [place] [address] [place] LMP 04/30/2024 [facility] Comment on above: Order Comment: Speci men Type: FLUID SPECIMEN [facility] Address: [address] [place] [address] Performed By: #### L [id number] #### [facility] CLIA [id number] [address] [place] [address] [place] [facility] CLIA [id number] [address] [place] [address] [place] PAP DISCLAIMER COMMENT The Pap Smear is a screening test for cervical cancer. False negative results occur with all screening tests, emphasizing the need for rescreening at recommended intervals, and clinical correlation. [facility] Comment on above: Order Comment: Speci men Type: FLUID SPECIMEN [facility] Address: [address] [place] [address] Performed By: #### L [id number] #### [facility] CLIA [id number] [address] [place] [address] [place] [facility] CLIA [id number] [address] [place] [address] [place] PAP PRE SALES ARCHITECT COMMENT This specimen has be en analyzed by the ThinPrep Imaging System, an automated imaging and review system, which assists the laboratory in evaluating cells on ThinPrep Pap tests. Following automated imaging, selected francois from every slide are reviewed by a contracting specialist. [facility] Comment on above: Order Comment: Speci men Type: FLUID SPECIMEN [facility] Address: [address] [place] [address] Performed By: #### L [id number] #### [facility] CLIA [id number] [address] [place] [id number] [facility] CLIA [id number] [address] [place] [address] [id number] [place] [address] CNCOon 04-29-2024 CNCO Letter Text [facility] Miscellaneous Lab Procedureo n 04-12-2024 MISC LAB TEST [facility] Comment on above: Order Comment: SER/F [id number] Usekinumab SER/FZ Result Comment: Scan shantal image report available in EMR Performed By: #### L 501.6710, L101.9900, L801.1541 ####[facility] [address] [place], [address] CNPKandy 04-01-2024 CNPN Telephone (PSYRMN) ----- IRVIN TAN ([id number]) 1985 F Date Time Provider Department 04/01/24 MICHELLE POWELL PSYRMN During your visit today, we recorded the following information about you: Misti Alvarez LPN 04/01/2024 1:04 PM Signed Reached out to patient to discuss rescheduling appointment with established provider. Currently scheduled for 04/02/2024 with provider whom was covering for established provider. Call blocked by patient. [email or web address] message sent at this time to request reschedule. Allergies As of Date: 04/01/2024 Noted Allergy Reaction AMOXICILLIN 07/01/2020 2 - Rash TRAMADOL 07/01/2020 2 - Rash Date Reviewed: 02/15/2024 Reviewed by: Solis Mendosa MA - Fully Assessed Prescriptions as of 04/07/2024 - lamoTRIgine (LAMICTAL) 200 mg tablet Take 1 tablet by mouth once daily. Take with additional 50 mg dose for a total of 250 mg every day - lamoTRIgine (LAMICTAL) 25 mg tablet Take 2 tablets by mouth once daily. Take with 200 mg tablet. - ondansetron orally disintegrating (ZOFRAN ODT) 4 mg disintegrating tablet dissolve 1 tablet ON TONGUE every 8 hours - albuterol HFA (PROVENTIL HFA, VENTOLIN HFA) 90 mcg/actuation inhaler Inhale 2 Puffs as instructed every 6 hours as needed for wheezing/shortness of breath. - escitalopram oxalate (LEXAPRO) 20 mg tablet take 1 tablet by mouth once daily - dicyclomine (BENTYL) 20 mg tablet Take 20 mg by mouth three times a day as needed. - lisinopril (ZESTRIL) 30 mg tablet Take 1 tablet by mouth once daily. - omeprazole (PRILOSEC) 20 mg capsule Take 1 capsule by mouth two times a day. 1/2 hr before meal. - ustekinumab (STELARA) 90 mg/mL injection Take one dose subcutaneously monthly - albuterol HFA (PROVENTIL HFA, VENTOLIN HFA) 90 mcg/actuation inhaler Inhale 2 Puffs as instructed every 6 hours as needed for wheezing/shortness of breath. Problem List As Of Date 04/01/2024 Noted Resolved Obesity, Class I, BMI 30-34.9 [E66.811] 02/11/2022 Abdominal pain [R10.9] 05/07/2021 Cannabis hyperemesis syndrome concurrent with a*05/14/2022 Corneal abrasion [S05.00XA] 05/14/2022 Crohn's disease (HCC) [K50.90] 02/15/2022 Cystitis [N30.90] 05/14/2022 Diarrhea [R19.7] 05/14/2022 Essential (primary) hypertension [I10] 02/12/2022 Headache, unspecified headache type [R51.9] 05/14/2022 History of Crohn's disease [Z87.19] 05/14/2022 History of manic depressive disorder [Z86.59] 05/14/2022 Lumbar contusion [S30.0XXA] 05/14/2022 Nausea, vomiting, and diarrhea [R11.2, R19.7] 02/12/2022 Cystic lesion of abdominal viscera [K66.8] 12/04/2023 Encounter Status:Closed by MISTI ALVAREZ on 04/07/24 [facility] CRPon 03-23-2024 C-REACTIVE PROT < 2.90 Normal 0.0-3.0 [facility] Comment on above: Result Comment: C-Re active Protein (CRP) provides useful information for the diagnosis, therapy and monitoring of inflammatory processes and associated diseases. For the evaluation of Relative Risk for Cardiovascular Disease, a High Sensitivity CRP (HSCRP) should be ordered. Performed By: #### L 501.6710, L101.9900, L801.1541 ####[facility] [address] [place], [address] Erythrocyte Sed Rateon 03-23 SED RATE 8 mm/hr Normal 0-30 [facility] Comment on above: Performed By: #### L 501.6710, L101.9900, L801.1541 ####[facility] [address] [place], [address] Gastroenterology Visit Repor ton 03-23-2024 Gastroenterology Visit Report [facility] [address] [place] [address] OFFICE VISIT Date of Service: 03/23/24 MR#: [id number] Acct: [id number] Name: IRVIN TAN Rep #: [id number] : 1985 Provider: Kenn Ojeda DO Age/Sex: 39/F Location: [facility] Status: Signed Intake Vital Signs 07/27/23 15:41 01/09/24 08:53 Height 5 ft 3 in 5 ft 2.99 in Intake Visit Reasons: 6 M FU Chief Complaint: gallbladder consult Allergies amoxicillin Allergy (Verified 01/09/24 08:53) Rash tramadol Allergy (Verified 01/09/24 08:53) Rash Medications ???Medication ???Instructions ???Recorded ???Confirmed ???Type escitalopram oxalate 20 mg tablet 20 mg PO DAILY 08/15/21 03/23/24 History (Lexapro) hydroxyzine pamoate 25 mg capsule 25 mg PO QHS 08/15/21 03/23/24 History lamotrigine 100 mg tablet 200 mg PO DAILY 08/15/21 03/23/24 History (Lamictal) albuterol sulfate 90 mcg/actuation 1 inh inhalation Q6H PRN ASTHMA 10/24/22 03/23/24 History aerosol inhaler (Ventolin HFA) lisinopril 30 mg tablet 30 mg PO DAILY 10/24/22 03/23/24 History ondansetron 4 mg disintegrating 4 mg PO Q6H PRN nausea and 11/10/23 03/23/24 Rx tablet vomiting #60 tabs ustekinumab 90 mg/mL subcutaneous 90 mg subcut Q8W #1 mL 11/20/23 03/23/24 Rx syringe (Stelara) dicyclomine 20 mg tablet 20 mg PO TID PRN abdominal pain 01/09/24 03/23/24 Rx #90 tabs prochlorperazine maleate 10 mg 10 mg PO TID PRN nausea and 03/03/24 03/23/24 Rx tablet (Compazine) vomiting #90 tabs pantoprazole 40 mg tablet,delayed 40 mg PO QAM #60 TABLETS 03/08/24 03/23/24 Rx release PFSH Medical History Low iron Anemia Migraine headache Heartburn Asthma Hypertension Marijuana use History of blood transfusion Smoker Crohn's disease Cannabis hyperemesis syndrome concurrent with and due to cannabis abuse Bipolar 1 disorder Depression Anxiety Surgical History S/P ERCP S/P laparoscopic cholecystectomy History of esophagogastroduodenoscop y (EGD) Family History Mother Mental disorder Social History household members: children Smoking Status: Current every day smoker tobacco type: cigarettes substance use type: does not use HPI HPI Chief Complaint: gallbladder consult Details: IRVIN TAN is a 39 F who presents to the office today for follow up. CT abd/pel 2.. noting thickening and narrowing of TI consistent with IBD. *BGI established 4.. with previously diagnosed Crohn???s disease. At presentation she was having difficulty with diffuse abdominal pain, 3-4 BM a day and cramping and noted weight loss of 20lbs. Previously established with [facility]. Pentasa previously utilized without remission; she has never been on long-term medication. Marijuana use daily. Crohn???s disease, biochemical workup, colonoscopy with injectable therapy. Abdominal pain, EGD [facility] ED for abdominal pain 5.18.22 (discharged with Zofran, bentyl, continue prednisone taper) and 5..22 (discharged with [place]) and 7..22 (discharged with Zofran; narcotic medication requested and denied) and 8.23.22 (discharged Zofran and bentyl) CT abd/pel 5..22 adrenal adenoma. Remaining exam without abnormality. Biochemical workup . CBC (RBC L3.86), ESR, CMP, CRP without abnormality.? LFT ASTL12/ALT 30/Alk phos 61; lipase L48 CT abd/pel 7.. adrenal adenoma; small umbilical hernia. Remaining exam without abnormality. GI outpatient workup: EGD and colonoscopy 11.15.21. EGD [place] Grade A reflux esophagitis; small hiatal hernia; erythematous mucosa of antrum and duodenopathy. Colonoscopy diverticulosis from RS through descending colon; multiple ulcers in TI. OV 7.. no show OV 9..22 Crohn???s disease, capsule endoscopy and biochemical/stool testing. Capsule Endoscopy 03.12.22 noting early stages of aphthous ulcers and inflammatory changes beginning at 3h50m and continuing through remained of small bowel. Recommend injectable versus infusion therapy for Crohn???s Disease. Stelara preferred route. [facility] ED presentation 04.10.22 and 12.07.31 with abdominal pain/cramping, N/V/D 5-6 episodes and watery. Received Zofran, bentyl and later Phenergan with the initiation of prednisone. OV 04.19.22 Crohn???s disease, responsive to steroid therapy, biochemical workup, flagyl and levofloxacin for abd pain. Start Stelara Biochemical workup ESR, titer/TB without pertinent abnormality. ? CRP H9.01 [facility] 1.5.23 and 05.23.23 with abdominal cramping and emesis for three days with d (more content not included)... [facility] CNOVon 02-15-2024 CNOV Office Visit (UCWSTR ) ----- IRVIN TAN ([id number]) 1985 F Date Time Provider Department 02/15/24 12:45 PM [facility] During your visit today, we recorded the following information about you: Temperature Pulse Respiration Blood pressure 97.6 degrees 90/minute 16/minute 132/80 Carrillo Hudson APRN.KITCHEN FOOD ASSEMBLER 02/15/2024 1:07 PM Signed Subjective HPI Nontoxic-appearing female presents urgent care chief complaint lower back pain. Duration of symptoms 1 week. Associated symptoms lower back discomfort. History of back pain this is similar. Was lifting a mattress at work when she felt something pop in her back. Has had pain since. OTC medications little to no success. Denies any traumatic injuries. No night sweats fevers loss of bowel or bladder habit incontinence leg weakness or radiculopathy. Past medical history prescription medications allergies reviewed. Denies chance of . Is not breast-feeding. BP 132/80 Pulse 90 Temp 36.4 ?C (97.6 ?F) Resp 16 LMP 02/18/2023 SpO2 98% .Patient presents with: Back Pain: lower x today, lifting bed PAST MEDICAL HISTORY Diagnosis Date Anxiety and depression Bipolar affective (HCC) Crohn's disease (HCC) Diverticulosis Hemorrhoid PAST SURGICAL HISTORY Procedure Laterality Date DILATION AND CURETTAGE LIGATE FALLOPIAN TUBE REMOVAL GALLBLADDER 10/26/2022 At [facility] WRIST LEFT OP SURGERY Right artery repair after cutting herself ALLERGIES Amoxicillin and Tramadol MEDICATIONS ondansetron orally disintegrating (ZOFRAN ODT) 4 mg disintegrating tablet dissolve 1 tablet ON TONGUE every 8 hours albuterol HFA (PROVENTIL HFA, VENTOLIN HFA) 90 mcg/actuation inhaler Inhale 2 Puffs as instructed every 6 hours as needed for wheezing/shortness of breath. lamoTRIgine (LAMICTAL) 200 mg tablet Take 1 tablet by mouth once daily. Take with additional 50 mg dose for a total of 250 mg every day lamoTRIgine (LAMICTAL) 25 mg tablet Take 2 tablets by mouth once daily. Take with 200 mg tablet. busPIRone (BUSPAR) 7.5 mg tablet Take 1 tablet by mouth two times a day. escitalopram oxalate (LEXAPRO) 20 mg tablet take 1 tablet by mouth once daily dicyclomine (BENTYL) 20 mg tablet Take 20 mg by mouth three times a day as needed. lisinopril (ZESTRIL) 30 mg tablet Take 1 tablet by mouth once daily. omeprazole (PRILOSEC) 20 mg capsule Take 1 capsule by mouth two times a day. 1/2 hr before meal. ustekinumab (STELARA) 90 mg/mL injection Take one dose subcutaneously monthly albuterol HFA (PROVENTIL HFA, VENTOLIN HFA) 90 mcg/actuation inhaler Inhale 2 Puffs as instructed every 6 hours as needed for wheezing/shortness of breath. predniSONE (DELTASONE) 10 mg tablet Take 4 tablets by mouth once daily for 5 days. (Patient not taking: Reported on 02/15/2024) FAMILY HISTORY Problem Relation Age of Onset Depression Mother Bipolar disorder Mother No Known Problems Father other (CABG) Maternal Grandfather No Known Problems Paternal Grandmother No Known Problems Paternal Grandfather Social History Tobacco Use Smoking status: Every Day Current packs/day: 1.00 Average packs/day: 1 pack/day for 13.0 years (13.0 ttl pk-yrs) Types: Cigarettes Smokeless tobacco: Never Vaping Use Vaping status: Never Used Substance Use Topics Alcohol use: Yes Comment: occasional Drug use: Yes Types: Marijuana Comment: daily Review of Systems Constitutional: Negative for chills, fever and malaise/fatigue. HENT: Negative for congestion, ear discharge, ear pain, sinus pain and sore throat. Eyes: Negative for blurred vision, pain, discharge and redness. Respiratory: Negative for cough, hemoptysis, sputum production, shortness of breath, wheezing and stridor. Cardiovascular: Negative for chest pain. Gastrointestinal: Negative for abdominal pain, diarrhea, nausea and vomiting. Musculoskeletal: Positive for back pain. Negative for myalgias. Skin: Negative for itching and rash. Neurological: Negative for dizziness and headaches. Objective Physical Exam Constitutional: General: She is not in acute distress. Appearance: She is not toxic-appearing. HENT: Head: Normocephalic. Nose: Nose normal. Eyes: Pupils: Pupils are equal, round, and reactive to light. Cardiovascular: Rate and Rhythm: Normal rate. Pulmonary: Effort: Pulmonary effort is normal. No respiratory distress. Musculoskeletal: Cervical back: Normal range of motion. Back: Comments: Pain with palpation highlighted area. No spinal tenderness. No leg weakness. Negative straight leg test. No rashes. Skin: General: Skin is warm and dry. Neurological: General: No focal deficit present. Mental Status: She is alert. ASSESSMENT/PLAN: 1. Low back pain without sciatica, unspecified back pain laterality, unspecified chronicity - ICD9: 724.2, ICD10: M54.50 Diagnosed wit (more content not included)... [facility] CBC W/Diff, Automatedon 12-12 Absolute Lymph 2.15 X10 3/uL Normal 0.83-4.51 [facility] Comment on above: Performed By: #### L 500.4050, L100.0100 #### [facility] [address] [place], [address] Absolute Neut 2.5 X10 3/uL Normal 2.0-7.7 [facility] Comment on above: Performed By: #### L 500.4050, L100.0100 #### [facility] [address] [place], [address] Basophils/100 WBC (Bld) 0.9 % Normal 0-1 [facility] Comment on above: Performed By: #### L 500.4050, L100.0100 #### [facility] [address] [place], [address] Eosinophils/100 WBC (Bld) 1.3 % Normal 0-5 [facility] Comment on above: Performed By: #### L 500.4050, L100.0100 #### [facility] [address] [place], [address] Erythrocyte distribution width (RBC) [Ratio] 13.0 % Normal 11.6-14.6 [facility] Comment on above: Performed By: #### L 500.4050, L100.0100 #### [facility] [address] [place], [address] Hematocrit (Bld) [Volume fraction] 38.3 % Normal 37-47 [facility] Comment on above: Performed By: #### L 500.4050, L100.0100 #### [facility] [address] [place], [address] Hemoglobin (Bld) [Mass/Vol] 12.5 g/dL Normal 12.0-15.0 [facility] Comment on above: Performed By: #### L 500.4050, L100.0100 #### [facility] [address] [place], [address] IG% 0.400 Normal 0.0-0.9 [facility] Comment on above: Result Comment: IG% - Immature Granulocytes (promyelocytes, myelocytes and metamyelocytes) > 1% indicates that a LEFT SHIFT is Present. Performed By: #### L 500.4050, L100.0100 #### [facility] [address] [place], [address] Lymphocytes/100 WBC (Bld) 40.8 % Normal 19-41 [facility] Comment on above: Performed By: #### L 500.4050, L100.0100 #### [facility] [address] [place], [address] MCH (RBC) [Entitic mass] 30.0 pg Normal 27.0-32.0 [facility] Comment on above: Performed By: #### L 500.4050, L100.0100 #### [facility] [address] [place], [address] MCHC (RBC) [Mass/Vol] 32.6 g/dL Normal 32-36 [facility] Comment on above: Performed By: #### L 500.4050, L100.0100 #### [facility] [address] [place], [address] MCV (RBC) [Entitic vol] 92.1 fL Normal 81-99 [facility] Comment on above: Performed By: #### L 500.4050, L100.0100 #### [facility] [address] [place], [address] Monocytes/100 WBC (Bld) 9.1 % Normal 0-10 [facility] Comment on above: Performed By: #### L 500.4050, L100.0100 #### [facility] [address] [place], [address] Neutrophils/100 WBC (Bld) 47.5 % Normal 47-70 [facility] Comment on above: Performed By: #### L 500.4050, L100.0100 #### [facility] [address] [place], [address] Nucleated RBC (Bld) [#/Vol] 0 10*3/uL Normal 0-5 [facility] Comment on above: Performed By: #### L 500.4050, L100.0100 #### [facility] [address] [place], [address] Platelet mean volume (Bld) [Entitic vol] 9.5 fL Normal 6.2-12.0 [facility] Comment on above: Performed By: #### L 500.4050, L100.0100 #### [facility] [address] [place], [address] Platelets (Bld) [#/Vol] 451 10*3/uL High 150-450 [facility] Comment on above: Performed By: #### L 500.4050, L100.0100 #### [facility] [address] [place], [address] RBC (Bld) [#/Vol] 4.16 10*6/uL Low 4.2-5.4 [facility] Comment on above: Performed By: #### L 500.4050, L100.0100 #### [facility] [address] [place], [address] RDW SD 43.8 fl Normal 35.1-43.9 [facility] Comment on above: Performed By: #### L 500.4050, L100.0100 #### [facility] [address] [place], [address] WBC (Bld) [#/Vol] 5.3 10*3/uL Normal 4.4-11.0 [facility] Comment on above: Performed By: #### L 500.4050, L100.0100 #### [facility] [address] [place], [address] Comprehensive Metabolic Prof [facility] 01-09-2024 Albumin [Mass/Vol] 3.8 g/dL Normal 3.2-5.0 [facility] Comment on above: Performed By: #### L 500.4050, L100.0100 #### [facility] [address] [place], [address] Albumin/Globulin [Mass ratio] 0.9 {ratio} Normal 0.9-2.4 [facility] Comment on above: Performed By: #### L 500.4050, L100.0100 #### [facility] [address] [place], [address] ALK P 87 U/L Normal 45-117 [facility] Comment on above: Performed By: #### L 500.4050, L100.0100 #### [facility] [address] [place], [address] ALT [Catalytic activity/Vol] 21 U/L Normal 13-56 [facility] Comment on above: Performed By: #### L 500.4050, L100.0100 #### [facility] [address] [place], [address] AST [Catalytic activity/Vol] 18 U/L Normal 15-37 [facility] Comment on above: Performed By: #### L 500.4050, L100.0100 #### [facility] [address] [place], [address] Bilirubin [Mass/Vol] 0.30 mg/dL Normal 0.20-1.[address] [facility] Comment on above: Result Comment: For patients on eltrombopag therapy, use of Dimension [place] TBIL is not recommended. Performed By: #### L 500.4050, L100.0100 #### [facility] [address] [place], [address] BUN/CRE 10.5 RATIO Normal 10-20 [facility] Comment on above: Performed By: #### L 500.4050, L100.0100 #### [facility] [address] [place], [address] CA,Total 9.1 mg/dL Normal 8.5-10.1 [facility] Comment on above: Performed By: #### L 500.4050, L100.0100 #### [facility] [address] [place], [address] Chloride [Moles/Vol] 107 mmol/L Normal 98-[address] [facility] Comment on above: Performed By: #### L 500.4050, L100.0100 #### [facility] [address] [place], [address] CO2 [Moles/Vol] 26.0 mmol/L Normal 21.0-32.0 [facility] Comment on above: Performed By: #### L 500.4050, L100.0100 #### [facility] [address] [place], [address] Creatinine [Mass/Vol] 0.96 mg/dL Normal 0.55-1.02 [facility] Comment on above: Result Comment: The validity of the calculated GFR GFRAA in patients over 70 years has not been determined. Clinical correlation is essential. Performed By: #### L 500.4050, L100.0100 #### [facility] [address] [place], [address] ECRCL 78.03 ml/min Normal [facility] Comment on above: Performed By: #### L 500.4050, L100.0100 #### [facility] [address] [place], [address] EST GFR - AA 83 mL/min Normal >60 [facility] Comment on above: Result Comment: Afri can [place] GFR Calc Performed By: #### L 500.4050, L100.0100 #### [facility] [address] [place], [address] GAP 6 Normal 5-15 [facility] Comment on above: Performed By: #### L 500.4050, L100.0100 #### [facility] [address] [place], [address] GFR/1.73 sq M.predicted among non-blacks MDRD (S/P/Bld) [Vol rate/Area] 69 mL/min/{1.73_m2} Normal >60 [facility] Comment on above: Result Comment: Non- GFR Calc Performed By: #### L 500.4050, L100.0100 #### [facility] [address] [place], [address] Globulin (S) [Mass/Vol] 4.1 g/dL Normal 2.2-4.2 [facility] Comment on above: Performed By: #### L 500.4050, L100.0100 #### [facility] [address] [place], [address] Glucose [Mass/Vol] 89 mg/dL Normal 74-106 [facility] Comment on above: Performed By: #### L 500.4050, L100.0100 #### [facility] [address] [place], [address] Potassium [Moles/Vol] 3.6 mmol/L Normal 3.5-5.1 [facility] Comment on above: Performed By: #### L 500.4050, L100.0100 #### [facility] [address] [place], [address] Sodium [Moles/Vol] 139 mmol/L Normal 136-145 [facility] Comment on above: Performed By: #### L 500.4050, L100.0100 #### [facility] [address] [place], [address] T PROT 7.9 g/dL Normal 6.4-8.2 [facility] Comment on above: Performed By: #### L 500.4050, L100.0100 #### [facility] [address] [place], [address] Urea nitrogen [Mass/Vol] 10 mg/dL Normal 7-18 [facility] Comment on above: Performed By: #### L 500.4050, L100.0100 #### [facility] [address] [place], [address] Emergency Department Summary on 01-09-2024 Emergency Department Summary [facility] Medical Records Department [address] [place] [address] Emergency Department Summary 01/09/24 MR#: [id number] Acct: [id number] Name: IRVIN TAN Rep #: [id number] : 1985 38 From: Valeria Taylor DO PCP: MICKEY CalixC Status:DEP ER Location: ED HPI HPI - GI History of Present Illness Chief Complaint: Abd Pain Informant: patient Narrative Narrative: Patient is a 38-year-old female with history of [place] hyperemesis syndrome as well as Crohn's disease presenting with worsening abdominal pain, nausea, diarrhea and indigestion. She states this feels her Crohn's flare. She notes she is a month behind on her Stelara because of insurance issues. She states that she has been getting worse over the past 1 to 2 weeks. She has tried Bentyl and Zofran at home with little help of her symptoms. She did vomit this morning. Denies any black or blood in her vomit or her stool. States the pain is lower in her abdomen. Denies any urinary symptoms. No other complaints or concerns reported at this time. Does have a history of laparoscopic cholecystectomy. Follows with LIN Nunn. [facility] Medical History Low iron Anemia Migraine headache Heartburn Asthma Hypertension Marijuana use History of blood transfusion Smoker Crohn's disease Cannabis hyperemesis syndrome concurrent with and due to cannabis abuse Bipolar 1 disorder Depression Anxiety Home Medications ???Medication ???Instructions ???Recorded ???Last Taken ???Type escitalopram oxalate 20 mg tablet 20 mg PO DAILY 08/15/21 Unknown History (Lexapro) hydroxyzine pamoate 25 mg capsule 25 mg PO QHS 08/15/21 Unknown History lamotrigine 100 mg tablet 200 mg PO DAILY 08/15/21 Unknown History (Lamictal) albuterol sulfate 90 mcg/actuation 1 inh inhalation Q6H PRN ASTHMA 10/24/22 Unknown History aerosol inhaler (Ventolin HFA) lisinopril 30 mg tablet 30 mg PO DAILY 10/24/22 Unknown History ciprofloxacin HCl 500 mg tablet 500 mg PO DAILY 10 days #10 tabs 11/23/22 Unknown Rx (Cipro) pantoprazole 40 mg tablet,delayed 40 mg PO Q12H #60 tabs 09/23/23 Unknown Rx release ondansetron 4 mg disintegrating 4 mg PO Q6H PRN nausea and 11/10/23 Unknown Rx tablet vomiting #60 tabs prochlorperazine maleate 10 mg 10 mg PO TID PRN nausea and 11/10/23 Unknown Rx tablet (Compazine) vomiting #90 tabs ustekinumab 90 mg/mL subcutaneous 90 mg subcut Q8W #1 mL 11/20/23 Unknown Rx syringe (Stelara) ondansetron 4 mg disintegrating 4 mg PO Q8H PRN PRN Nausea #10 tabs 11/27/23 Unknown Rx tablet dicyclomine 20 mg tablet 20 mg PO TID PRN abdominal pain 01/09/24 Unknown Rx #90 tabs Allergy/AdvReac Type Severity Reaction Status Date / Time amoxicillin Allergy Rash Verified 01/09/24 08:53 tramadol Allergy Rash Verified 01/09/24 08:53 Family History Mother Mental disorder Surgical History S/P ERCP S/P laparoscopic cholecystectomy History of esophagogastroduodenoscop y (EGD) Social History household members: children Smoking Status: Current every day smoker tobacco type: cigarettes substance use type: does not use ROS ROS ED Constitutional Constitutional ED: Denies chills or fever(s) Cardiovascular Cardiovascular: Denies chest pain Gastrointestinal Gastrointestinal: Reports abdominal pain, diarrhea, nausea and vomiting Musculoskeletal Musculoskeletal: Denies arthralgias or back pain Neurologic Neurologic: Denies weakness Hematologic/Lymphatic Hematologic/Lymphatic: Denies easy bleeding or easy bruising EXAM Physical Exam Const Vital Signs: 01/09/24 08:53 01/09/24 10:53 01/09/24 12:00 Temperature 96.8 F L Temperature Source Temporal Pulse Rate 87 81 78 Respiratory Rate 16 17 18 Blood Pressure 122/90 H 130/81 H 128/77 H Blood Pressure Mean 100 97 94 Pulse Ox 99 98 98 Oxygen Delivery Method Room Air Room Air Room Air Positive well nourished and well developed General Appearance ED: well developed and NAD HEENT Reports moist mucous membranes Neck supple Resp normal respiratory effort and clear to auscultation bilaterally Cardio regular rate and regular rhythm GI non-distended GI Narrative: Patient reports mild tenderness on lower abdominal palpation Inspection: Negative for abdominal distention Auscultation: normoactive bowel sounds Palpation: soft and tender; Negative for guarding or rigid Extremity full ROM General Extremety ED: Negative for edema General Extremity: Negative for edema Psych mental status grossly normal and thought proces (more content not included)... Normal [facility] ,Urineon 01-09-2024 Beta HCG ( test) Ql (U) Negative Normal [facility] Comment on above: Order Comment: CLEAN CATCH Result Comment: Very dilute urine specimens, as indicated by a low specific gravity, may not contain farm loan representative levels of hCG. If is still suspected, a first morning urine specimen should be collected 48 hours later and tested. Performed By: #### L 400.0001, L400.7600 #### [facility] [address] [place], [place], [address] Urinalysis, Completeon 01-08 BACTERIA RARE Normal None Seen [facility] Comment on above: Order Comment: CLEAN CATCH Performed By: #### L 400.0001, L400.7600 #### [facility] [address] [place], [address] EPI,SQUAMOUS 0-5 SEEN Normal 5-10 [facility] Comment on above: Order Comment: CLEAN CATCH Performed By: #### L 400.0001, L400.7600 #### [facility] [address] [place], [address] WBC 0-5 SEEN Normal 0-5 [facility] Comment on above: Order Comment: CLEAN CATCH Performed By: #### L 400.0001, L400.7600 #### [facility] [address] [place], [address] Mucus Ql (Urine sed) 0 SEEN Normal [facility] Comment on above: Order Comment: CLEAN CATCH Performed By: #### L 400.0001, L400.7600 #### [facility] [address] [place], [address] RBC 0 SEEN Normal 0-5 [facility] Comment on above: Order Comment: CLEAN CATCH Performed By: #### L 400.0001, L400.7600 #### [facility] [address] [place], [address] Abdomen/Pelvis W IV Cont ONL Yon 12-13-2023 Abdomen/Pelvis W IV Cont ONLY [facility] [address] [place] [address] Abdomen/Pelvis W IV Cont ONLY MR#: [id number] Acct: [id number] Name: IRVIN TAN Rep #: [id number] : 1985 F 38 From: Tony Jackson PCP: Michelle Grimm, MICROBIOLOGY INSTRUCTOR-C Status: REG ER Study: Abdomen/Pelvis W IV Cont ONLY Date of Exam: Exam# [id number] Ordering Dr: Maverick Avery MD [id number] STUDY: CT ABDOMEN AND PELVIS WITH CONTRAST REASON FOR EXAM: Female, 38 years old. Nausea, vomiting, diarrhea RADIATION DOSAGE (If Supplied By Facility): CTDIvol = ( 13.61 ) mGy, DLP = ( 856.76 ) mGycm TECHNIQUE: IV 100mL Isovue-370 was administered. Transaxial images were obtained from the dome of the diaphragm to the symphysis pubis. Multiplanar coronal and sagittal images were reformatted. The protocol utilizes one or more of the following dose reduction techniques: automated exposure control, adjustment of mA and/or kV according to patient size,and/or use of iterative reconstruction technique. COMPARISON: Prior study dated: 07/27/2023 FINDINGS: The visualized lung bases are unremarkable. The visualized portions of the heart are within normal limits. The small hypodensity in the anterior segment of proximal to the liver unchanged. There is non-visualization of the gallbladder, which may be secondary to either contraction or a prior cholecystectomy. Normal spleen. Normal pancreas. Unremarkable right adrenal gland. Stable 1.6 cm left adrenal mass likely due to adenoma. Further follow-up exam in one year is recommended. Unremarkable kidneys. No evidence of hydronephrosis. Normal visualized stomach. Normal caliber small bowel loops. Mild diverticulosis of the sigmoid colon. No evidence of acute diverticulitis. The appendix is visualized and appears normal. Normal abdominal aorta. No retroperitoneal adenopathy. Normal urinary bladder. Metallic clips in the pelvic region likely from previous bilateral tubal ligation. Small bilateral adnexal cyst/prominent follicles. There is a small umbilical hernia containing fat. Normal osseous structures. CT/Abdomen/Pelvis W IV Cont ONLY IMPRESSION: 1. No focal acute inflammatory process. 2. Stable left adrenal mass. Further follow-up exam in one year is recommended. Electronically Signed: Tony Goldstein MD at 12:01 EDT , CC: SIXTO Grimm; Dr. Maverick Avery MD Primary Education Professor: Signed Normal [facility] CBC W/Diff, Automatedon 08 Absolute Lymph 2.41 X10 3/uL Normal 0.83-4.51 [facility] Comment on above: Performed By: #### L 500.4050, L501.2450, L700.6800, L100.0100 ####[facility] [address] [place], [address] Absolute Neut 3.4 X10 3/uL Normal 2.0-7.7 [facility] Comment on above: Performed By: #### L 500.4050, L501.2450, L700.6800, L100.0100 ####[facility] [address] [place], [address] Basophils/100 WBC (Bld) 0.8 % Normal 0-1 [facility] Comment on above: Performed By: #### L 500.4050, L501.2450, L700.6800, L100.0100 ####[facility] [address] [place], [address] Eosinophils/100 WBC (Bld) 0.9 % Normal 0-5 [facility] Comment on above: Performed By: #### L 500.4050, L501.2450, L700.6800, L100.0100 ####[facility] [address] [place], [address] Erythrocyte distribution width (RBC) [Ratio] 13.1 % Normal 11.6-14.6 [facility] Comment on above: Performed By: #### L 500.4050, L501.2450, L700.6800, L100.0100 ####[facility] [address] [place], [address] Hematocrit (Bld) [Volume fraction] 37.8 % Normal 37-47 [facility] Comment on above: Performed By: #### L 500.4050, L501.2450, L700.6800, L100.0100 ####[facility] [address] [place], [address] Hemoglobin (Bld) [Mass/Vol] 12.4 g/dL Normal 12.0-15.0 [facility] Comment on above: Performed By: #### L 500.4050, L501.2450, L700.6800, L100.0100 ####[facility] [address] [place], [address] IG% 0.300 Normal 0.0-0.9 [facility] Comment on above: Result Comment: IG% - Immature Granulocytes (promyelocytes, myelocytes and metamyelocytes) > 1% indicates that a LEFT SHIFT is Present. Performed By: #### L 500.4050, L501.2450, L700.6800, L100.0100 ####[facility] [address] [place], [address] Lymphocytes/100 WBC (Bld) 36.7 % Normal 19-41 [facility] Comment on above: Performed By: #### L 500.4050, L501.2450, L700.6800, L100.0100 ####[facility] [address] [place], [address] MCH (RBC) [Entitic mass] 30.2 pg Normal 27.0-32.0 [facility] Comment on above: Performed By: #### L 500.4050, L501.2450, L700.6800, L100.0100 ####[facility] [address] [place], [address] MCHC (RBC) [Mass/Vol] 32.8 g/dL Normal 32-36 [facility] Comment on above: Performed By: #### L 500.4050, L501.2450, L700.6800, L100.0100 ####[facility] [address] [place], [address] MCV (RBC) [Entitic vol] 92.0 fL Normal 81-99 [facility] Comment on above: Performed By: #### L 500.4050, L501.2450, L700.6800, L100.0100 ####[facility] [address] [place], [address] Monocytes/100 WBC (Bld) 8.8 % Normal 0-10 [facility] Comment on above: Performed By: #### L 500.4050, L501.2450, L700.6800, L100.0100 ####[facility] [address] [place], [address] Neutrophils/100 WBC (Bld) 52.5 % Normal 47-70 [facility] Comment on above: Performed By: #### L 500.4050, L501.2450, L700.6800, L100.0100 ####[facility] [address] [place], [address] Nucleated RBC (Bld) [#/Vol] 0 10*3/uL Normal 0-5 [facility] Comment on above: Performed By: #### L 500.4050, L501.2450, L700.6800, L100.0100 ####[facility] [address] [place], [address] Platelet mean volume (Bld) [Entitic vol] 9.0 fL Normal 6.2-12.0 [facility] Comment on above: Performed By: #### L 500.4050, L501.2450, L700.6800, L100.0100 ####[facility] [address] [place], [address] Platelets (Bld) [#/Vol] 415 10*3/uL Normal 150-450 [facility] Comment on above: Performed By: #### L 500.4050, L501.2450, L700.6800, L100.0100 ####[facility] [address] [place], [address] RBC (Bld) [#/Vol] 4.11 10*6/uL Low 4.2-5.4 [facility] Comment on above: Performed By: #### L 500.4050, L501.2450, L700.6800, L100.0100 ####[facility] [address] [place], [address] RDW SD 43.9 fl Normal 35.1-43.9 [facility] Comment on above: Performed By: #### L 500.4050, L501.2450, L700.6800, L100.0100 ####[facility] [address] [place], [address] WBC (Bld) [#/Vol] 6.6 10*3/uL Normal 4.4-11.0 [facility] Comment on above: Performed By: #### L 500.4050, L501.2450, L700.6800, L100.0100 ####[facility] [address] [place], [address] Comprehensive Metabolic Prof [facility] 12-13-2023 Albumin [Mass/Vol] 3.9 g/dL Normal 3.2-5.0 [facility] Comment on above: Performed By: #### L 500.4050, L501.2450, L700.6800, L100.0100 ####[facility] [address] [place], [address] Albumin/Globulin [Mass ratio] 1.0 {ratio} Normal 0.9-2.4 [facility] Comment on above: Performed By: #### L 500.4050, L501.2450, L700.6800, L100.0100 ####[facility] [address] [place], [address] ALK P 87 U/L Normal 45-117 [facility] Comment on above: Performed By: #### L 500.4050, L501.2450, L700.6800, L100.0100 ####[facility] [address] [place], [address] ALT [Catalytic activity/Vol] 23 U/L Normal 13-56 [facility] Comment on above: Performed By: #### L 500.4050, L501.2450, L700.6800, L100.0100 ####[facility] [address] [place], [address] AST [Catalytic activity/Vol] 16 U/L Normal 15-37 [facility] Comment on above: Performed By: #### L 500.4050, L501.2450, L700.6800, L100.0100 ####[facility] [address] [place], [address] Bilirubin [Mass/Vol] 0.20 mg/dL Normal 0.20-1.[address] [facility] Comment on above: Result Comment: For patients on eltrombopag therapy, use of Dimension [place] TBIL is not recommended. Performed By: #### L 500.4050, L501.2450, L700.6800, L100.0100 ####[facility] [address] [place], [address] BUN/CRE 12.4 RATIO Normal 10-20 [facility] Comment on above: Performed By: #### L 500.4050, L501.2450, L700.6800, L100.0100 ####[facility] [address] [place], [address] CA,Total 9.2 mg/dL Normal 8.5-10.1 [facility] Comment on above: Performed By: #### L 500.4050, L501.2450, L700.6800, L100.0100 ####[facility] [address] [place], [address] Chloride [Moles/Vol] 107 mmol/L Normal 98-[address] [facility] Comment on above: Performed By: #### L 500.4050, L501.2450, L700.6800, L100.0100 ####[facility] [address] [place], [address] CO2 [Moles/Vol] 26.0 mmol/L Normal 21.0-32.0 [facility] Comment on above: Performed By: #### L 500.4050, L501.2450, L700.6800, L100.0100 ####[facility] [address] [place], [address] Creatinine [Mass/Vol] 0.88 mg/dL Normal 0.55-1.02 [facility] Comment on above: Result Comment: The validity of the calculated GFR GFRAA in patients over 70 years has not been determined. Clinical correlation is essential. Performed By: #### L 500.4050, L501.2450, L700.6800, L100.0100 ####[facility] [address] [place], [address] ECRCL 86.85 ml/min Normal [facility] Comment on above: Performed By: #### L 500.4050, L501.2450, L700.6800, L100.0100 ####[facility] [address] [place], [address] EST GFR - AA 91 mL/min Normal >60 [facility] Comment on above: Result Comment: Afri can [place] GFR Calc Performed By: #### L 500.4050, L501.2450, L700.6800, L100.0100 ####[facility] [address] [place], [address] GAP 6 Normal 5-15 [facility] Comment on above: Performed By: #### L 500.4050, L501.2450, L700.6800, L100.0100 ####[facility] [address] [place], [address] GFR/1.73 sq M.predicted among non-blacks MDRD (S/P/Bld) [Vol rate/Area] 75 mL/min/{1.73_m2} Normal >60 [facility] Comment on above: Result Comment: Non- GFR Calc Performed By: #### L 500.4050, L501.2450, L700.6800, L100.0100 ####[facility] [address] [place], [address] Globulin (S) [Mass/Vol] 3.9 g/dL Normal 2.2-4.2 [facility] Comment on above: Performed By: #### L 500.4050, L501.2450, L700.6800, L100.0100 ####[facility] [address] [place], [address] Glucose [Mass/Vol] 96 mg/dL Normal 74-106 [facility] Comment on above: Performed By: #### L 500.4050, L501.2450, L700.6800, L100.0100 ####[facility] [address] [place], [address] Potassium [Moles/Vol] 3.9 mmol/L Normal 3.5-5.1 [facility] Comment on above: Performed By: #### L 500.4050, L501.2450, L700.6800, L100.0100 ####[facility] [address] [place], [address] Sodium [Moles/Vol] 139 mmol/L Normal 136-145 [facility] Comment on above: Performed By: #### L 500.4050, L501.2450, L700.6800, L100.0100 ####[facility] [address] [place], [address] T PROT 7.8 g/dL Normal 6.4-8.2 [facility] Comment on above: Performed By: #### L 500.4050, L501.2450, L700.6800, L100.0100 ####[facility] [address] [place], [address] Urea nitrogen [Mass/Vol] 11 mg/dL Normal 7-18 [facility] Comment on above: Performed By: #### L 500.4050, L501.2450, L700.6800, L100.0100 ####[facility] [address] [place], [address] Emergency Department Summary on 12-13-2023 Emergency Department Summary [facility] Medical Records Department [address] [place] [address] Emergency Department Summary 12/13/23 MR#: [id number] Acct: [id number] Name: IRVIN TAN Rep #: [id number] : 1985 38 From: Maverick Avery MD PCP: Michelle Grimm NP-Hardik Status:REG ER Location: ED HPI HPI - GI History of Present Illness Chief Complaint: Abd Pain Narrative Narrative: 38-year-old female past medical history of Crohn disease, cannabis hyperemesis syndrome presents with nausea, vomiting, and diarrhea that started this morning. She states she started having left lower quadrant abdominal pain yesterday evening but it was manageable. This morning she awoke and has had multiple episodes of watery stool, without any blood in her feces. Additionally, she vomited 4 times. The last time she smoked marijuana was this morning. She states that past abdominal surgery includes cholecystectomy and bilateral tubal ligation, and she sees Dr. Ojeda regarding her Crohn disease. She is not currently on steroids. She was last seen for a flare in the emergency department a few weeks ago where she received Bentyl and antinausea medication. She denies any fevers or chills. No exacerbating or alleviating factors. [facility] Medical History Low iron Anemia Migraine headache Heartburn Asthma Hypertension Marijuana use History of blood transfusion Smoker Crohn's disease Cannabis hyperemesis syndrome concurrent with and due to cannabis abuse Bipolar 1 disorder Depression Anxiety Home Medications ???Medication ???Instructions ???Recorded ???Last Taken ???Type escitalopram oxalate 20 mg tablet 20 mg PO DAILY 08/15/21 Unknown History (Lexapro) hydroxyzine pamoate 25 mg capsule 25 mg PO QHS 08/15/21 Unknown History lamotrigine 100 mg tablet 200 mg PO DAILY 08/15/21 Unknown History (Lamictal) albuterol sulfate 90 mcg/actuation 1 inh inhalation Q6H PRN ASTHMA 10/24/22 Unknown History aerosol inhaler (Ventolin HFA) lisinopril 30 mg tablet 30 mg PO DAILY 10/24/22 Unknown History ciprofloxacin HCl 500 mg tablet 500 mg PO DAILY 10 days #10 tabs 11/23/22 Unknown Rx (Cipro) pantoprazole 40 mg tablet,delayed 40 mg PO Q12H #60 tabs 09/23/23 Unknown Rx release ondansetron 4 mg disintegrating 4 mg PO Q6H PRN nausea and 11/10/23 Unknown Rx tablet vomiting #60 tabs prochlorperazine maleate 10 mg 10 mg PO TID PRN nausea and 11/10/23 Unknown Rx tablet (Compazine) vomiting #90 tabs ustekinumab 90 mg/mL subcutaneous 90 mg subcut Q8W #1 mL 11/20/23 Unknown Rx syringe (Stelara) dicyclomine 10 mg capsule 10 mg PO TID PRN abdominal pain 11/27/23 Unknown Rx #20 caps ondansetron 4 mg disintegrating 4 mg PO Q8H PRN PRN Nausea #10 tabs 11/27/23 Unknown Rx tablet dicyclomine 20 mg tablet 20 mg PO TID PRN abdominal pain 12/13/23 Unknown Rx #20 tabs Allergy/AdvReac Type Severity Reaction Status Date / Time amoxicillin Allergy Rash Verified 12/13/23 10:23 tramadol Allergy Rash Verified 12/13/23 10:23 Family History Mother Mental disorder Surgical History S/P ERCP S/P laparoscopic cholecystectomy History of esophagogastroduodenoscop y (EGD) Social History household members: children Smoking Status: Current every day smoker tobacco type: cigarettes substance use type: does not use ROS ROS ED ROS Narrative Constitutional: No fever, no chills. HEENT: No sore throat. No neck pain. No loss of vision. No rhinorrhea. Cardiovascular: No chest pain. No palpitations. No pedal edema. Respiratory: No cough, no shortness of breath. Abdominal: Left lower quadrant abdominal pain. 4 episodes of nonbloody emesis. Multiple episodes of watery stool, no blood. Genitourinary: No dysuria. No hematuria. Musculoskeletal: No myalgias. No arthralgias. Neurologic: No headaches. No dizziness. No lightheadedness. Skin: No rash. No change in color. Psychiatric: No depression. No anxiety. EXAM Physical Exam Narrative Exam Narrative: Afebrile. Vital signs noted. HEENT: Normocephalic. Atraumatic. PERRL, EOMI. Neck soft and supple. No point tenderness or step off. Cardiovascular: Regular rate and rhythm. No murmurs, rubs, or gallops appreciated. Respiratory: No tachypnea. Lungs clear to auscultation bilaterally. Gastrointestinal: Abdomen soft, mild tenderness to palpation left lower quadrant of abdomen, with normoactive bowel sounds. No rebound or guarding. Neurological: Awake. Alert. Nonfocal, nonlateralizing. Skin: No rash. Normal color. No pallor. Musculoskeletal: No pedal edema. Full range of motion extremities. Const Vital Signs: 12/12 (more content not included)... Normal [facility] Lipaseon 12-13-2023 Lipase [Catalytic activity/Vol] 16 U/L Normal 13-75 [facility] Comment on above: Result Comment: [facility] vela note: LIPASE revised reference range effective 22. New Lipase methodology. Expected to produce lower values than the previous assay method. NEW Reference Range: 13 - 75 U/L Performed By: #### L 500.4050, L501.2450, L700.6800, L100.0100 ####[facility] [address] [place], [place], [address] ,Serum,hCG Quali.on 12-13-2023 HCG, SERUM QUAL Negative Normal [facility] Comment on above: Performed By: #### L 500.4050, L501.2450, L700.6800, L100.0100 ####[facility] [address] [place], [place], [address] [facility]NPKandy [facility] IRVIN TAN ([id number]) 1985 F Date Time Provider Department 12/04/23 SARMAD WREN During your visit today, we recorded the following information about you: Sarmad Wren APRN.CNP 12/04/2023 8:28 AM Signed Please let the patient know that her ultrasound of the abdomen shows a likely lipoma or fatty benign collection in the area of concern. At this time, the best course of action would be to monitor as needed. If the area were to get larger, we could refer to general surgery and re-image. I would recommend that she not manipulate the area as sometimes this causes it to increase in size. Also, I had her following up in 6 months with her PCP team in May. The schedulers put her back with me. Can we get her to Michelle or Dr. Ang schedule at the same time/day? DANIELLA Smaaniego Barbara, LPN 12/04/2023 9:32 AM Signed Patient notified of results, verbalizes understanding of instructions. And schedule changed. Tawanda Villafuerte LPN Allergies As of Date: 12/04/2023 Noted Allergy Reaction AMOXICILLIN 07/01/2020 2 - Rash TRAMADOL 07/01/2020 2 - Rash Date Reviewed: 11/28/2023 Reviewed by: Milton Tolentino MA - Fully Assessed Reason for Visit: Results [95] Primary Visit Diagnosis:Cystic lesion of abdominal viscera [K66.8] Prescriptions as of 12/04/2023 - lamoTRIgine (LAMICTAL) 200 mg tablet Take 1 tablet by mouth once daily. - dicyclomine (BENTYL) 20 mg tablet Take 20 mg by mouth three times a day as needed. - lisinopril (ZESTRIL) 30 mg tablet Take 1 tablet by mouth once daily. - albuterol HFA (PROVENTIL HFA, VENTOLIN HFA) 90 mcg/actuation inhaler Inhale 2 Puffs as instructed every 6 hours as needed for wheezing/shortness of breath. - omeprazole (PRILOSEC) 20 mg capsule Take 1 capsule by mouth two times a day. 1/2 hr before meal. - lamoTRIgine (LAMICTAL) 25 mg tablet Take 2 tablets by mouth once daily. Take with 200 mg tablet. - hydrOXYzine pamoate (VISTARIL) 25 mg capsule Take 1 capsule by mouth two times a day as needed for anxiety. - escitalopram oxalate (LEXAPRO) 20 mg tablet Take 1 tablet by mouth once daily. - ondansetron orally disintegrating (ZOFRAN ODT) 4 mg disintegrating tablet dissolve 1 tablet ON TONGUE every 8 hours - ustekinumab (STELARA) 90 mg/mL injection Take one dose subcutaneously monthly - albuterol HFA (PROVENTIL HFA, VENTOLIN HFA) 90 mcg/actuation inhaler Inhale 2 Puffs as instructed every 6 hours as needed for wheezing/shortness of breath. Problem List As Of Date 12/04/2023 Noted Resolved Obesity, Class I, BMI 30-34.9 [E66.9] 02/11/2022 Abdominal pain [R10.9] 05/07/2021 Cannabis hyperemesis syndrome concurrent with a*05/14/2022 Corneal abrasion [S05.00XA] 05/14/2022 Crohn's disease (HCC) [K50.90] 02/15/2022 Cystitis [N30.90] 05/14/2022 Diarrhea [R19.7] 05/14/2022 Essential (primary) hypertension [I10] 02/12/2022 Headache, unspecified headache type [R51.9] 05/14/2022 History of Crohn's disease [Z87.19] 05/14/2022 History of manic depressive disorder [Z86.59] 05/14/2022 Lumbar contusion [S30.0XXA] 05/14/2022 Nausea, vomiting, and diarrhea [R11.2, R19.7] 02/12/2022 Cystic lesion of abdominal viscera [K66.8] 12/04/2023 Encounter Status:Closed by TAWANDA VILLAFUERTE on 12/04/23 [facility] US ABDOMEN LTDon 12-02-2023 US ABDOMEN LTD * * *Final Report* * * DATE OF EXAM: Dec 02 2023 11:32AM U 1064 - US ABDOMEN LTD / PROCEDURE REASON: Cystic lesion of abdominal viscera * * * * Physician Interpretation * * * * Examination: US ABDOMEN LTD History: Cystic lesion of abdominal viscera Technique: US ABDOMEN LTD Comparison: CT scans of 05/09/2023 RESULT: Just deep to the skin is a circumscribed isoechoic solid mass in the right lateral flank region, in the area of palpable abnormality. This measures 3.8 x 1.4 x 2.2 cm. Flow is seen adjacent to, but not within it. IMPRESSION: CIRCUMSCRIBED SOLID ISOECHOIC MASS JUST DEEP TO THE SKIN. SONOGRAPHIC APPEARANCE IS NONSPECIFIC. LIKELY LIPOMA. IF THIS IS NOT KNOWN TO BE STABLE CLINICALLY, FOLLOW-UP RECOMMENDED Primary Education Professor: DIEGO Transcribe Date/Time: Dec 02 2023 3:07P Dictated by : LORENA BRAMBILA MD This examination was interpreted and the report reviewed and electronically signed by: LORENA BRAMBILA MD on Dec 02 2023 3:09PM EST [id number] [facility] US Abdomen limitedon 024 IMPRESSION: CIRCUMSCRIBED SOLID ISOECHOIC MASS JUST DEEP TO THE SKIN. SONOGRAPHIC APPEARANCE IS NONSPECIFIC. LIKELY LIPOMA. IF THIS IS NOT KNOWN TO BE STABLE CLINICALLY, FOLLOW-UP RECOMMENDED Primary Education Professor: DIEGO Transcribe Date/Time: Dec 02 2023 3:07P Dictated by : LORENA BRAMBILA MD This examination was interpreted and the report reviewed and electronically signed by: LORENA BRAMBILA MD on Dec 02 2023 3:09PM [facility] DIVISION OF RADIOLOGY * * *Final Report* * * DATE OF EXAM: Dec 02 2023 11:32AM [facility] 1064 - US ABDOMEN LTD / PROCEDURE REASON: Cystic lesion of abdominal viscera * * * * Physician Interpretation * * * * Examination: US ABDOMEN LTD History: Cystic lesion of abdominal viscera Technique: US ABDOMEN LTD Comparison: CT scans of 05/09/2023 RESULT: Just deep to the skin is a circumscribed isoechoic solid mass in the right lateral flank region, in the area of palpable abnormality. This measures 3.8 x 1.4 x 2.2 cm. Flow is seen adjacent to, but not within it. DIVISION OF RADIOLOGY Provider, [facility] - 12/02/2023 * * *Final Report* * * DATE OF EXAM: Dec 02 2023 11:32AM U 1064 - US ABDOMEN LTD / PROCEDURE REASON: Cystic lesion of abdominal viscera * * * * Physician Interpretation * * * * Examination: US ABDOMEN LTD History: Cystic lesion of abdominal viscera Technique: US ABDOMEN LTD Comparison: CT scans of 05/09/2023 RESULT: Just deep to the skin is a circumscribed isoechoic solid mass in the right lateral flank region, in the area of palpable abnormality. This measures 3.8 x 1.4 x 2.2 cm. Flow is seen adjacent to, but not within it. IMPRESSION IMPRESSION: CIRCUMSCRIBED SOLID ISOECHOIC MASS JUST DEEP TO THE SKIN. SONOGRAPHIC APPEARANCE IS NONSPECIFIC. LIKELY LIPOMA. IF THIS IS NOT KNOWN TO BE STABLE CLINICALLY, FOLLOW-UP RECOMMENDED Primary Education Professor: DIEGO Transcribe Date/Time: Dec 02 2023 3:07P Dictated by : LORENA BRAMBILA MD This examination was interpreted and the report reviewed and electronically signed by: LORENA BRAMBILA MD on Dec 02 2023 3:09PM EST [facility] Radiology Study observation (narrative) [facility] US Abdomen limitedOrdered By : [facility]cf Provider on 12-02-2023 [facility] CNOVon 11-28-2023 CNOV Office Visit (FAMPWS ) ----- IRVIN TAN ([id number]) 1985 F Date Time Provider Department 11/28/23 8:00 AM [facility] visit today, we recorded the following information about you: Pulse Respiration Blood pressure Weight 78/minute 16/minute 124/82 83 kg Height 1.62 m Sarmad Wren APRN.[employer] 11/28/2023 8:43 AM Signed Chief Complaint Patient presents with: Physical HPI Irvin Tan is a 38 year old female who presents here today for physical exam. Patient of Dr. Corral.. Following with Trinity Herrera for bipolar disorder for biploar, depression, and FREDY. Taking medications as prescribed. HTN: Patient is compliant with meds Yes Monitors bp at home: infrequently. Usually normal Denies side effects: Yes. Chest pain: No. Dyspnea: No. Edema: No. Palpitations: No. Syncope: No. Headache: No. Dizziness: No. History of asthma: Using albuterol more frequently with humid air. Not usually this much when weather is more mild. Following with Dr. Ojeda for Crohns diease. Has a flare up, went to the ER last night. Had to call off today. Has follow up with them. Prescribed Sterela, omeprazole and bentyl No particular diet followed except for watching things that caused worsening Crohns. No dedicated exercise plan but stays active at work. Okay with Tdap today. Declines COVID. Due for cervical cancer screening. Previously followed with Dr. Mao with [facility]. Area on the right side of her abdomen, present for about 3-4 months. Tender when touched. Past medical history, appointments, medications, allergies reviewed. Previous Medical History PAST MEDICAL HISTORY Diagnosis Date Anxiety and depression Bipolar affective (HCC) Crohn's disease (HCC) Diverticulosis Hemorrhoid Previous Surgical History PAST SURGICAL HISTORY Procedure Laterality Date DILATION AND CURETTAGE LIGATE FALLOPIAN TUBE REMOVAL GALLBLADDER 10/26/2022 At [facility] W[facility]ST LEFT OP SURGERY Right artery repair after cutting herself Family History FAMILY HISTORY Problem Relation Age of Onset Depression Mother Bipolar disorder Mother No Known Problems Father other (CABG) Maternal Grandfather No Known Problems Paternal Grandmother No Known Problems Paternal Grandfather Patient Allergies ALLERGIES Allergen Reactions Amoxicillin Rash Tramadol Rash Current Medications Current Outpatient Medications on File Prior to Visit Medication Sig lisinopril (ZESTRIL) 20 mg tablet Take 1 tablet by mouth once daily. lisinopril (ZESTRIL) 10 mg tablet Take 1 tablet by mouth once daily. lamoTRIgine (LAMICTAL) 200 mg tablet Take 1 tablet by mouth once daily. albuterol HFA (PROVENTIL HFA, VENTOLIN HFA) 90 mcg/actuation inhaler Inhale 2 Puffs as instructed every 6 hours as needed for wheezing/shortness of breath. omeprazole (PRILOSEC) 20 mg capsule Take 1 capsule by mouth two times a day. 1/2 hr before meal. lamoTRIgine (LAMICTAL) 25 mg tablet Take 2 tablets by mouth once daily. Take with 200 mg tablet. hydrOXYzine pamoate (VISTARIL) 25 mg capsule Take 1 capsule by mouth two times a day as needed for anxiety. escitalopram oxalate (LEXAPRO) 20 mg tablet Take 1 tablet by mouth once daily. ondansetron orally disintegrating (ZOFRAN ODT) 4 mg disintegrating tablet dissolve 1 tablet ON TONGUE every 8 hours ustekinumab (STELARA) 90 mg/mL injection Take one dose subcutaneously monthly albuterol HFA (PROVENTIL HFA, VENTOLIN HFA) 90 mcg/actuation inhaler Inhale 2 Puffs as instructed every 6 hours as needed for wheezing/shortness of breath. No current facility-administered medications on file prior to visit. Social History Social History Tobacco Use Smoking status: Every Day Packs/day: 1.00 Years: 13.00 Additional pack years: 0.00 Total pack years: 13.00 Types: Cigarettes Smokeless tobacco: Never Vaping Use Vaping Use: Never used Substance Use Topics Alcohol use: Yes Comment: occasional Drug use: Yes Types: Marijuana Comment: daily REVIEW OF SYSTEMS: as above Reviewed relevant PMHx, PSHx, Social Hx, current medications and allergies. EXAM: BP 124/82 Pulse 78 Resp 16 Ht 162 cm (5' 3.78) Wt 83 kg (183 lb) LMP 02/18/2023 SpO2 99% BMI 31.63 kg/m? General Appearance: Well appearing, alert, in no acute distress, well-hydrated, well nourished. and Overweight. Head: Normocephalic, no masses, lesions, tenderness or abnormalities. Eyes: Anicteric sclera. Pupils are equally round and reactive to light. Extraocular movements are intact. . Ears: External ears normal, canals clear. Nose/Sinuses: Nares normal, septum midline, mucosa normal, no drainage or sinus tenderness. Oropharynx: Lips, mucosa, and tongue normal, teeth and gums normal, oropharynx normal. Neck: Supple, no adenopathy; thyroid symmetric, normal size Lungs: Lungs clear to auscult (more content not included)... [facility] CBC W/Diff, Automatedon 11-09 Absolute Lymph 2.09 X10 3/uL Normal 0.83-4.51 [facility] Comment on above: Performed By: #### L 100.0100, L700.6800, L501.2450, L500.4050 #### [facility] [address] [place], [address] Absolute Neut 4.1 X10 3/uL Normal 2.0-7.7 [facility] Comment on above: Performed By: #### L 100.0100, L700.6800, L501.2450, L500.4050 #### [facility] [address] [place], [address] Basophils/100 WBC (Bld) 0.5 % Normal 0-1 [facility] Comment on above: Performed By: #### L 100.0100, L700.6800, L501.2450, L500.4050 #### [facility] [address] [place], [address] Eosinophils/100 WBC (Bld) 0.8 % Normal 0-5 [facility] Comment on above: Performed By: #### L 100.0100, L700.6800, L501.2450, L500.4050 #### [facility] [address] [place], [address] Erythrocyte distribution width (RBC) [Ratio] 13.1 % Normal 11.6-14.6 [facility] Comment on above: Performed By: #### L 100.0100, L700.6800, L501.2450, L500.4050 #### [facility] [address] [place], [address] Hematocrit (Bld) [Volume fraction] 34.4 % Low 37-47 [facility] Comment on above: Performed By: #### L 100.0100, L700.6800, L501.2450, L500.4050 #### [facility] [address] [place], [address] Hemoglobin (Bld) [Mass/Vol] 11.5 g/dL Low 12.0-15.0 [facility] Comment on above: Performed By: #### L 100.0100, L700.6800, L501.2450, L500.4050 #### [facility] [address] [place], [address] IG% 0.300 Normal 0.0-0.9 [facility] Comment on above: Result Comment: IG% - Immature Granulocytes (promyelocytes, myelocytes and metamyelocytes) > 1% indicates that a LEFT SHIFT is Present. Performed By: #### L 100.0100, L700.6800, L501.2450, L500.4050 #### [facility] [address] [place], [address] Lymphocytes/100 WBC (Bld) 31.5 % Normal 19-41 [facility] Comment on above: Performed By: #### L 100.0100, L700.6800, L501.2450, L500.4050 #### [facility] [address] [place], [address] MCH (RBC) [Entitic mass] 30.8 pg Normal 27.0-32.0 [facility] Comment on above: Performed By: #### L 100.0100, L700.6800, L501.2450, L500.4050 #### [facility] [address] [place], [address] MCHC (RBC) [Mass/Vol] 33.4 g/dL Normal 32-36 [facility] Comment on above: Performed By: #### L 100.0100, L700.6800, L501.2450, L500.4050 #### [facility] [address] [place], [address] MCV (RBC) [Entitic vol] 92.2 fL Normal 81-99 [facility] Comment on above: Performed By: #### L 100.0100, L700.6800, L501.2450, L500.4050 #### [facility] [address] [place], [address] Monocytes/100 WBC (Bld) 5.4 % Normal 0-10 [facility] Comment on above: Performed By: #### L 100.0100, L700.6800, L501.2450, L500.4050 #### [facility] [address] [place], [address] Neutrophils/100 WBC (Bld) 61.5 % Normal 47-70 [facility] Comment on above: Performed By: #### L 100.0100, L700.6800, L501.2450, L500.4050 #### [facility] [address] [place], [address] Nucleated RBC (Bld) [#/Vol] 0 10*3/uL Normal 0-5 [facility] Comment on above: Performed By: #### L 100.0100, L700.6800, L501.2450, L500.4050 #### [facility] [address] [place], [address] Platelet mean volume (Bld) [Entitic vol] 9.0 fL Normal 6.2-12.0 [facility] Comment on above: Performed By: #### L 100.0100, L700.6800, L501.2450, L500.4050 #### [facility] [address] [place], [address] Platelets (Bld) [#/Vol] 410 10*3/uL Normal 150-450 [facility] Comment on above: Performed By: #### L 100.0100, L700.6800, L501.2450, L500.4050 #### [facility] [address] [place], [address] RBC (Bld) [#/Vol] 3.73 10*6/uL Low 4.2-5.4 [facility] Comment on above: Performed By: #### L 100.0100, L700.6800, L501.2450, L500.4050 #### [facility] [address] [place], [address] RDW SD 44.3 fl High 35.1-43.9 [facility] Comment on above: Performed By: #### L 100.0100, L700.6800, L501.2450, L500.4050 #### [facility] [address] [place], [address] WBC (Bld) [#/Vol] 6.6 10*3/uL Normal 4.4-11.0 [facility] Comment on above: Performed By: #### L 100.0100, L700.6800, L501.2450, L500.4050 #### [facility] [address] [place], [address] Comprehensive Metabolic Prof ilneha 11-27-2023 Albumin [Mass/Vol] 3.6 g/dL Normal 3.2-5.0 [facility] Comment on above: Performed By: #### L 100.0100, L700.6800, L501.2450, L500.4050 ####[facility] [address] [place], [address] Albumin/Globulin [Mass ratio] 1.0 {ratio} Normal 0.9-2.4 [facility] Comment on above: Performed By: #### L 100.0100, L700.6800, L501.2450, L500.4050 ####[facility] [address] [place], [address] ALK P 83 U/L Normal 45-117 [facility] Comment on above: Performed By: #### L 100.0100, L700.6800, L501.2450, L500.4050 ####[facility] [address] [place], [address] ALT [Catalytic activity/Vol] 21 U/L Normal 13-56 [facility] Comment on above: Performed By: #### L 100.0100, L700.6800, L501.2450, L500.4050 ####[facility] [address] [place], [address] AST [Catalytic activity/Vol] 16 U/L Normal 15-37 [facility] Comment on above: Result Comment: Slig ht Hemolysis, Result may be falsely increased. Performed By: #### L 100.0100, L700.6800, L501.2450, L500.4050 ####[facility] [address] [place], [address] Bilirubin [Mass/Vol] 0.20 mg/dL Normal 0.20-1.[address] [facility] Comment on above: Result Comment: For patients on eltrombopag therapy, use of Dimension [place] TBIL is not recommended. Performed By: #### L 100.0100, L700.6800, L501.2450, L500.4050 ####[facility] [address] [place], [address] BUN/CRE 8.3 RATIO Low 10-20 [facility] Comment on above: Performed By: #### L 100.0100, L700.6800, L501.2450, L500.4050 ####[facility] [address] [place], [address] CA,Total 9.0 mg/dL Normal 8.5-10.1 [facility] Comment on above: Performed By: #### L 100.0100, L700.6800, L501.2450, L500.4050 ####[facility] [address] [place], [address] Chloride [Moles/Vol] 106 mmol/L Normal 98-[address] [facility] Comment on above: Performed By: #### L 100.0100, L700.6800, L501.2450, L500.4050 ####[facility] [address] [place], [address] CO2 [Moles/Vol] 25.0 mmol/L Normal 21.0-32.0 [facility] Comment on above: Performed By: #### L 100.0100, L700.6800, L501.2450, L500.4050 ####[facility] [address] [place], [address] Creatinine [Mass/Vol] 0.97 mg/dL Normal 0.55-1.02 [facility] Comment on above: Result Comment: The validity of the calculated GFR GFRAA in patients over 70 years has not been determined. Clinical correlation is essential. Performed By: #### L 100.0100, L700.6800, L501.2450, L500.4050 ####[facility] [address] [place], [address] ECRCL 79.46 ml/min Normal [facility] Comment on above: Performed By: #### L 100.0100, L700.6800, L501.2450, L500.4050 ####[facility] [address] [place], [address] EST GFR - AA 82 mL/min Normal >60 [facility] Comment on above: Result Comment: Afri can [place] GFR Calc Performed By: #### L 100.0100, L700.6800, L501.2450, L500.4050 ####[facility] [address] [place], [address] GAP 7 Normal 5-15 [facility] Comment on above: Performed By: #### L 100.0100, L700.6800, L501.2450, L500.4050 ####[facility] [address] [place], [address] GFR/1.73 sq M.predicted among non-blacks MDRD (S/P/Bld) [Vol rate/Area] 68 mL/min/{1.73_m2} Normal >60 [facility] Comment on above: Result Comment: Non- GFR Calc Performed By: #### L 100.0100, L700.6800, L501.2450, L500.4050 ####[facility] [address] [place], [address] Globulin (S) [Mass/Vol] 3.6 g/dL Normal 2.2-4.2 [facility] Comment on above: Performed By: #### L 100.0100, L700.6800, L501.2450, L500.4050 ####[facility] [address] [place], [address] Glucose [Mass/Vol] 87 mg/dL Normal 74-106 [facility] Comment on above: Performed By: #### L 100.0100, L700.6800, L501.2450, L500.4050 ####[facility] [address] [place], [address] Potassium [Moles/Vol] 3.9 mmol/L Normal 3.5-5.1 [facility] Comment on above: Result Comment: Slig ht Hemolysis, Result may be falsely increased. Performed By: #### L 100.0100, L700.6800, L501.2450, L500.4050 ####[facility] [address] [place], [address] Sodium [Moles/Vol] 138 mmol/L Normal 136-145 [facility] Comment on above: Performed By: #### L 100.0100, L700.6800, L501.2450, L500.4050 ####[facility] [address] [place], [address] T PROT 7.2 g/dL Normal 6.4-8.2 [facility] Comment on above: Performed By: #### L 100.0100, L700.6800, L501.2450, L500.4050 ####[facility] [address] [place], [address] Urea nitrogen [Mass/Vol] 8 mg/dL Normal 7-18 [facility] Comment on above: Performed By: #### L 100.0100, L700.6800, L501.2450, L500.4050 ####[facility] [address] [place], [address] Emergency Department Summary on 11-27-2023 Emergency Department Summary [facility] Medical Records Department [address] [place] [address] Emergency Department Summary 11/27/23 MR#: [id number] Acct: [id number] Name: IRVIN TAN Rep #: [id number] : 1985 38 From: Lissa Mcbride MD PCP: SIXTO Calix Status:[facility] ER Location: ED I have personally performed a face to face assessment of the patient and have reviewed the PREETHI Note. Patient present secondary to abdominal pain with nausea, vomiting, and diarrhea. She has a history of Crohn's. She states her symptoms started last evening. She has not noted any blood in her stool. No fever. Patient sitting upright in bed no acute distress. Nontoxic-appearing. Head and neck examination unremarkable. Heart is regular rate and rhythm. Lung sounds are clear. Abdomen is soft with no focal tenderness. Active bowel sounds are noted. CBC reveals normal white count with a hemoglobin 11.5. Chemistry studies are unremarkable. test is negative. Urinalysis reveals 5 ketones with no evidence of infection. After receiving Toradol, Zofran, and Bentyl along with IV fluids patient does feel improved. She will be given prescriptions for Zofran and Bentyl and will follow-up with Dr. Ojeda who she is established with as needed. Return instructions are given. Patient comfortable with the plan. HPI HPI - GI History of Present Illness Chief Complaint: Abd Pain Narrative Narrative: Patient presenting today with lower abdominal pain, nausea, vomiting, and diarrhea that started last night. She reports that her abdominal pain is crampy, she has had 3 episodes of vomiting, and multiple episodes of loose stool. Previous abdominal surgeries include tubal ligation and cholecystectomy. She does have a history of Crohn's disease on Stelara and does smoke marijuana daily. She follows with Dr. Ojeda. She reports that she has had symptoms similar to this many times in the past. She denies fevers, chills, hematemesis, melena, hematochezia, and urinary symptoms. [facility] Medical History Low iron Anemia Migraine headache Heartburn Asthma Hypertension Marijuana use History of blood transfusion Smoker Crohn's disease Cannabis hyperemesis syndrome concurrent with and due to cannabis abuse Bipolar 1 disorder Depression Anxiety Home Medications ???Medication ???Instructions ???Recorded ???Last Taken ???Type escitalopram oxalate 20 mg tablet 20 mg PO DAILY 08/15/21 Unknown History (Lexapro) hydroxyzine pamoate 25 mg capsule 25 mg PO QHS 08/15/21 Unknown History lamotrigine 100 mg tablet 200 mg PO DAILY 08/15/21 Unknown History (Lamictal) albuterol sulfate 90 mcg/actuation 1 inh inhalation Q6H PRN ASTHMA 10/24/22 Unknown History aerosol inhaler (Ventolin HFA) lisinopril 30 mg tablet 30 mg PO DAILY 10/24/22 Unknown History ciprofloxacin HCl 500 mg tablet 500 mg PO DAILY 10 days #10 tabs 11/23/22 Unknown Rx (Cipro) pantoprazole 40 mg tablet,delayed 40 mg PO Q12H #60 tabs 09/23/23 Unknown Rx release ondansetron 4 mg disintegrating 4 mg PO Q6H PRN nausea and 11/10/23 Unknown Rx tablet vomiting #60 tabs prochlorperazine maleate 10 mg 10 mg PO TID PRN nausea and 11/10/23 Unknown Rx tablet (Compazine) vomiting #90 tabs ustekinumab 90 mg/mL subcutaneous 90 mg subcut Q8W #1 mL 11/20/23 Unknown Rx syringe (Stelara) dicyclomine 10 mg capsule 10 mg PO TID PRN abdominal pain 11/27/23 Unknown Rx #20 caps ondansetron 4 mg disintegrating 4 mg PO Q8H PRN PRN Nausea #10 tabs 11/27/23 Unknown Rx tablet Allergy/AdvReac Type Severity Reaction Status Date / Time amoxicillin Allergy Rash Verified 11/27/23 12:05 tramadol Allergy Rash Verified 11/27/23 12:05 Family History Mother Mental disorder Surgical History S/P ERCP S/P laparoscopic cholecystectomy History of esophagogastroduodenoscop y (EGD) Social History household members: children Smoking Status: Current every day smoker tobacco type: cigarettes substance use type: does not use ROS ROS ED Constitutional Constitutional ED: Denies chills or fever(s) Cardiovascular Cardiovascular: Denies chest pain Respiratory/Chest Respiratory/Chest: Denies dyspnea Gastrointestinal Gastrointestinal: Reports abdominal pain, diarrhea, nausea and vomiting; Denies melena Genitourinary Genitourinary ED: Denies dysuria, hematuria or urinary urgency Musculoskeletal Musculoskeletal: Denies arthralgias or myalgias Integumentary Denies rash Neurologic Neurologic: Denies weakness EXAM Physical Exam Const Vital Signs: 11/27/23 12:05 11/09 (more content not included)... Normal [facility] Lipaseon 11-27-2023 Lipase [Catalytic activity/Vol] 18 U/L Normal 13-75 [facility] Comment on above: Result Comment: [facility] vela note: LIPASE revised reference range effective 22. New Lipase methodology. Expected to produce lower values than the previous assay method. NEW Reference Range: 13 - 75 U/L Performed By: #### L 100.0100, L700.6800, L501.2450, L500.4050 ####[facility] [address] [place], [address] ,Serum,hCG Quali.on 11-27-2023 HCG, SERUM QUAL Negative Normal [facility] Comment on above: Performed By: #### L 100.0100, L700.6800, L501.2450, L500.4050 ####[facility] [address] [place], [address] Urinalysis, Completeon 11-26 BACTERIA RARE Normal None Seen [facility] Comment on above: Order Comment: COLLE CTOR TO SPECIFY Performed By: #### L 400.0001 #### [facility] [address] [place], [address] EPI,SQUAMOUS 0-5 SEEN Normal 5-10 [facility] Comment on above: Order Comment: COLLE CTOR TO SPECIFY Performed By: #### L 400.0001 #### [facility] [address] [place], [address] RBC 0-5 SEEN Normal 0-5 [facility] Comment on above: Order Comment: COLLE CTOR TO SPECIFY Performed By: #### L 400.0001 #### [facility] [address] [place], [address] WBC 0-5 SEEN Normal 0-5 [facility] Comment on above: Order Comment: COLLE CTOR TO SPECIFY Performed By: #### L 400.0001 #### [facility] [address] [place], [address] Mucus Ql (Urine sed) 0 SEEN Normal [facility] Comment on above: Order Comment: COLLE CTOR TO SPECIFY Performed By: #### L 400.0001 #### [facility] [address] [place], [place], [address] CNOVon 11-14-2023 CNOV Office Visit (FRWS ) ----- IRVIN TAN ([id number]) 1985 F Date Time Provider Department 11/14/23 2:00 PM DARNELL CURRIE V [facility] During your visit today, we recorded the following information about you: Yaima Magana MA 11/14/2023 2:24 PM Signed [facility] ROOMING INTAKE FLOWSHEET DATA Pain Pain Level: 7 Pain Location: Knee-Left Description: Throbbing Duration Units: Days Frequency: Continuous Intervention/Comfort measure: Medication, Cold, Heat Darnell Currie V, DO 11/14/2023 2:24 PM Signed SERVICE DATE: November 14, 2023 PCP: April Corral MD Subjective Patient ID: Irvin is a 38 year old female. Chief Complaint: Patient presents with: Left knee pain REF: [facility] x-ray: 11/05/2023 PAIN EVALUATION 11/14/2023 0926 Pain Level: 7 Pain Location: Knee-Left Description: Throbbing Duration Units: Days Frequency: Continuous Intervention/Comfort measure: Medication;Cold;Heat HPI 38 y/o female presents today with subacute injury to left knee. planted and twisted, felt a pop in the knee followed by swelling. Pain is reported along the medial knee and patella. Pain with standing, twisting. No prior knee injury. Review of Systems ACTIVE PROBLEM LIST Obesity, Class I, Bmi 30-34.9 Abdominal Pain Cannabis Hyperemesis Syndrome Concurrent With and Due to Cannabis Abuse (Hcc) Corneal Abrasion Crohn's Disease (Hcc) Cystitis Diarrhea Essential (Primary) Hypertension Headache, Unspecified Headache Type History of Crohn's Disease History of Manic Depressive Disorder Lumbar Contusion Nausea, Vomiting, and Diarrhea PAST MEDICAL HISTORY Diagnosis Date Anxiety and depression Bipolar affective (HCC) Crohn's disease ([facility]) Diverticulosis Hemorrhoid PAST SURGICAL HISTORY Procedure Laterality Date DILATION AND CURETTAGE LIGATE FALLOPIAN TUBE REMOVAL GALLBLADDER 10/26/2022 At [facility] W[facility]ST LEFT OP SURGERY Right artery repair after cutting herself FAMILY HISTORY Problem Relation Age of Onset [...] Alcohol use: Yes Comment: occasional Drug use: Yes Types: Marijuana Comment: daily ALLERGIES Allergen Reactions Amoxicillin Rash Tramadol Rash MEDICATIONS: lamoTRIgine (LAMICTAL) 200 mg tablet Take 1 tablet by mouth once daily. lisinopril (ZESTRIL) 10 mg tablet Take 1 tablet by mouth once daily. lisinopril (ZESTRIL) 20 mg tablet Take 1 tablet by mouth once daily. omeprazole (PRILOSEC) 20 mg capsule Take 1 capsule by mouth two times a day. 1/2 hr before meal. lamoTRIgine (LAMICTAL) 25 mg tablet Take 2 tablets by mouth once daily. Take with 200 mg tablet. hydrOXYzine pamoate (VISTARIL) 25 mg capsule Take 1 capsule by mouth two times a day as needed for anxiety. escitalopram oxalate (LEXAPRO) 20 mg tablet Take 1 tablet by mouth once daily. ondansetron orally disintegrating (ZOFRAN ODT) 4 mg disintegrating tablet dissolve 1 tablet ON TONGUE every 8 hours ustekinumab (STELARA) 90 mg/mL injection Take one dose subcutaneously monthly albuterol HFA (PROVENTIL HFA, VENTOLIN HFA) 90 mcg/actuation inhaler Inhale 2 Puffs as instructed every 6 hours as needed for wheezing/shortness of breath. albuterol HFA (PROVENTIL HFA, VENTOLIN HFA) 90 mcg/actuation inhaler Inhale 2 Puffs as instructed every 6 hours as needed for wheezing/shortness of breath. Allergies, medications, past surgical history, family history and past medical history were reviewed per this encounter. Objective Ortho Exam Left knee exam- trace effusion. Pain with patellar translation. Pain over medial joint line with palpation. Positive pain with Jairo and Thessaly. Anshu, varus and valgus stress negative for laxity. Assessment/Plan ASSESSMENT Diagnosis (M23.92) Internal derangement of left knee (primary encounter diagnosis) Plan: MRI KNEE WO IVCON LEFT (M25.562) Acute pain of left knee Plan: CONSULT TO ORTHOPAEDICS Office Visit on 11/14/23 MRI KNEE WO IVCON LEFT CONSULT TO ORTHOPAEDICS PLAN hinged brace for support FOLLOW-UP: No follow-ups on file. SIGNATURE: Darnell Currie DO PATIENT NAME: Irvin Tan DATE: November 14, 2023 TIME: 2:21 PM Yaima Magana MA 11/14/2023 2:42 PM Signed PT ASSESSMENT - CASTING ROOM Irvin presents for Application of brace. Applied large J brace to Left knee. Patient electronically signed Jose R NOGUERA. Patient has been instructed in Care and proper application of brace. Yaima Magana MA (more content not included)... [facility] CNOVon 11-05-2023 CNOV Office Visit (UCWSTR ) ----- IRVIN TAN ([id number]) 1985 F Date Time Provider Department 11/05/23 9:15 AM [facility] During your visit today, we recorded the following information about you: Temperature Pulse Respiration Blood pressure 97.5 degrees 86/minute 16/minute 122/68 Weight 83.7 kg Carrillo Hudson APRN.[employer] 11/05/2023 10:42 AM Signed Subjective HPI Nontoxic-appearing female presents urgent care chief complaint knee pain. Duration of symptoms 2 months. Associated symptoms knee pain. Patient states 2 months ago a individual stepped on her foot and she pivoted injuring her left knee. Was seen here in urgent care x-ray obtained. No acute findings noted. Was scheduled with orthopedics but was unable to make that appointment. Presents today due to persistent pain. Points over patellar region. 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 Feels like pain is worsening due to long days at work. No OTC medications recently. Denies fractures or surgeries to this knee in the past. Past medical history prescription medications allergies reviewed. .Patient presents with: Knee Pain: left, foot stepped on tried to move felt pop x 2 weeks PAST MEDICAL HISTORY Diagnosis Date Anxiety and depression Bipolar affective (HCC) Crohn's disease (HCC) Diverticulosis Hemorrhoid PAST SURGICAL HISTORY Procedure Laterality Date DILATION AND CURETTAGE LIGATE FALLOPIAN TUBE REMOVAL GALLBLADDER 10/26/2022 At [facility] WRIST LEFT OP SURGERY Right artery repair after cutting herself ALLERGIES Amoxicillin and Tramadol MEDICATIONS lamoTRIgine (LAMICTAL) 200 mg tablet Take 1 tablet by mouth once daily. lisinopril (ZESTRIL) 10 mg tablet Take 1 tablet by mouth once daily. albuterol HFA (PROVENTIL HFA, VENTOLIN HFA) 90 mcg/actuation inhaler Inhale 2 Puffs as instructed every 6 hours as needed for wheezing/shortness of breath. lisinopril (ZESTRIL) 20 mg tablet Take 1 tablet by mouth once daily. omeprazole (PRILOSEC) 20 mg capsule Take 1 capsule by mouth two times a day. 1/2 hr before meal. lamoTRIgine (LAMICTAL) 25 mg tablet Take 2 tablets by mouth once daily. Take with 200 mg tablet. hydrOXYzine pamoate (VISTARIL) 25 mg capsule Take 1 capsule by mouth two times a day as needed for anxiety. escitalopram oxalate (LEXAPRO) 20 mg tablet Take 1 tablet by mouth once daily. ondansetron orally disintegrating (ZOFRAN ODT) 4 mg disintegrating tablet dissolve 1 tablet ON TONGUE every 8 hours ustekinumab (STELARA) 90 mg/mL injection Take one dose subcutaneously monthly albuterol HFA (PROVENTIL HFA, VENTOLIN HFA) 90 mcg/actuation inhaler Inhale 2 Puffs as instructed every 6 hours as needed for wheezing/shortness of breath. FAMILY HISTORY Problem Relation Age of Onset [...] Yes Comment: occasional Drug use: Never BP 122/68 Pulse 86 Temp 36.4 ?C (97.5 ?F) Resp 16 Wt 83.7 kg (184 lb 8.4 oz) LMP 02/18/2023 SpO2 98% BMI 31.67 kg/m? Review of Systems Constitutional: Negative for chills, fever and malaise/fatigue. HENT: Negative for congestion, ear discharge, ear pain, sinus pain and sore throat. Eyes: Negative for blurred vision, pain, discharge and redness. Respiratory: Negative for cough, hemoptysis, sputum production, shortness of breath, wheezing and stridor. Cardiovascular: Negative for chest pain. Gastrointestinal: Negative for abdominal pain, diarrhea, nausea and vomiting. Musculoskeletal: Positive for joint pain. Negative for myalgias. Skin: Negative for itching and rash. Neurological: Negative for dizziness and headaches. Objective Physical Exam Constitutional: General: She is not in acute distress. Appearance: She is not toxic-appearing. HENT: Head: Normocephalic. Nose: Nose normal. Eyes: Pupils: Pupils are equal, round, and reactive to light. Cardiovascular: Rate and Rhythm: Normal rate. Pulmonary: Effort: Pulmonary effort is normal. No respiratory distress. Musculoskeletal: Cervical back: Normal range of motion. Left upper leg: Normal. Left knee: No swelling, deformity, effusion, erythema, ecchymosis or lacerations. Normal range of motion. Tenderness present over the patellar tendon. Left lower leg: Normal. Legs: Comments: No decreased range of motion or weakness noticed noted. No laxity of joint noted peripatellar tenderness. No erythema edema noted. Skin: General: Skin is wa (more content not included)... [facility] XR KNEE 4V AP/PA BOTH+LAT/ME R LTon 11-05-2023 XR KNEE 4V AP/PA BOTH+LAT/DAYAMI LT * * *Final Report* * * DATE OF EXAM: Nov 05 2023 10:01AM WOX 5202 - XR KNEE 4V AP/PA BOTH+LAT/DAYAMI LT / PROCEDURE REASON: Acute pain of left knee * * * * Physician Interpretation * * * * EXAM TITLE: XR KNEE 4V AP/PA BOTH+LAT/DAYAMI LT EXAM DATE/TIME: 11/05/2023 10:01 AM COMPARISON: X-ray knee on 09/08/2023 CLINICAL INDICATION/HISTORY: Acute knee pain. TECHNIQUE: AP/PA, lateral and sunrise views of the left knee are presented. FINDINGS: No acute fractures or subluxations are noted. The joint spaces are maintained, without obvious osteophyte formation. There is no evidence of joint effusion. The mineralization of the bones is normal. There is no significant soft tissue swelling. IMPRESSION: Unremarkable left knee x-ray. Primary Education Professor: DIEGO Transcribe Date/Time: Nov 05 2023 10:25A Dictated by : FISH DE LEON MD This examination was interpreted and the report reviewed and electronically signed by: FISH ED LEON MD on Nov 05 2023 10:26AM EST [id number] [facility] XR Knee - left 4 Viewson IMPRESSION: Unremark able left knee x-ray. Primary Education Professor: DIEGO Transcribe Date/Time: Nov 05 2023 10:25A Dictated by : FISH DE LEON MD This examination was interpreted and the report reviewed and electronically signed by: FISH DE LEON MD on Nov 05 2023 10:26AM EST DIVISION OF RADIOLOGY * * *Final Report* * * DATE OF EXAM: Nov 05 2023 10:01AM WOX 5202 - XR KNEE 4V AP/PA BOTH+LAT/DAYAMI LT / PROCEDURE REASON: Acute pain of left knee * * * * Physician Interpretation * * * * EXAM TITLE: XR KNEE 4V AP/PA BOTH+LAT/DAYAMI LT EXAM DATE/TIME: 11/05/2023 10:01 AM COMPARISON: X-ray knee on 09/08/2023 CLINICAL INDICATION/HISTORY: Acute knee pain. TECHNIQUE: AP/PA, lateral and sunrise views of the left knee are presented. FINDINGS: No acute fractures or subluxations are noted. The joint spaces are maintained, without obvious osteophyte formation. There is no evidence of joint effusion. The mineralization of the bones is normal. There is no significant soft tissue swelling. DIVISION OF RADIOLOGY Provider, [facility] - 11/05/2023 * * *Final Report* * * DATE OF EXAM: Nov 05 2023 10:01AM WOX 5202 - XR KNEE 4V AP/PA BOTH+LAT/DAYAMI LT / PROCEDURE REASON: Acute pain of left knee * * * * Physician Interpretation * * * * EXAM TITLE: XR KNEE 4V AP/PA BOTH+LAT/DAYAMI LT EXAM DATE/TIME: 11/05/2023 10:01 AM COMPARISON: X-ray knee on 09/08/2023 CLINICAL INDICATION/HISTORY: Acute knee pain. TECHNIQUE: AP/PA, lateral and sunrise views of the left knee are presented. FINDINGS: No acute fractures or subluxations are noted. The joint spaces are maintained, without obvious osteophyte formation. There is no evidence of joint effusion. The mineralization of the bones is normal. There is no significant soft tissue swelling. IMPRESSION IMPRESSION: Unremarkable left knee x-ray. Primary Education Professor: [employer] Transcribe Date/Time: Nov 05 2023 10:25A Dictated by : FISH DE LEON MD This examination was interpreted and the report reviewed and electronically signed by: FISH DE LEON MD on Nov 05 2023 10:26AM EST [facility] Radiology Study observation (narrative) [facility] XR Knee - left 4 ViewsOrdere d By: Ccf Provider on 11-05-2023 [facility] XR Knee - left 4 Viewson IMPRESSION: Unremarkable exam with no acute findings. Primary Education Professor: DIEGO Transcribe Date/Time: Sep 08 2023 5:12P Dictated by : ARIA DOBSON MD This examination was interpreted and the report reviewed and electronically signed by: ARIA DOBSON MD on Sep 08 2023 5:13PM EST DIVISION OF RADIOLOGY * * *Final Report* * * DATE OF EXAM: Sep 08 2023 5:10PM WOX 5202 - XR KNEE 4V AP/PA BOTH+LAT/DAYAMI LT / PROCEDURE REASON: Acute pain of left knee * * * * Physician Interpretation * * * * LEFT KNEE: CLINICAL INDICATION: Acute pain of left knee REFERENCE: None FINDINGS: 4 Radiographs of the left knee demonstrate normally aligned and intact osseous structures. No fracture or dislocation is evident. No large effusion or other soft tissue abnormality is present. DIVISION OF RADIOLOGY Provider, Thiago Houser [facility] - 09/08/2023 * * *Final Report* * * DATE OF EXAM: Sep 08 2023 5:10PM WOX 5202 - XR KNEE 4V AP/PA BOTH+LAT/DAYAMI LT / PROCEDURE REASON: Acute pain of left knee * * * * Physician Interpretation * * * * LEFT KNEE: CLINICAL INDICATION: Acute pain of left knee REFERENCE: None FINDINGS: 4 Radiographs of the left knee demonstrate normally aligned and intact osseous structures. No fracture or dislocation is evident. No large effusion or other soft tissue abnormality is present. IMPRESSION IMPRESSION: Unremarkable exam with no acute findings. Primary Education Professor: [facility] Transcribe Date/Time: Sep 08 2023 5:12P Dictated by : ARIA DOBSON MD This examination was interpreted and the report reviewed and electronically signed by: ARIA DOBSON MD on Sep 08 2023 5:13PM EST [facility] Radiology Study observation (narrative) [facility] XR Knee - left 4 ViewsOrdere d By: Ccf Provider on 09-08-2023 [facility] Absolute lymphocyte countOrd ered By: Regla Ortiz on 07-27-2023 Lymphocytes Auto (Unsp spec) [#/Vol] 2.57 10*3/uL 0.83-4.51 [facility] Automated lymphocyte count a s percentage of total leukocytesOrdered By: Regla Ortiz on 07-27-2023 Lymphocytes/100 WBC Auto (Unsp spec) 36.5 % 19-41 [facility] Basophil percentageOrdered B y: Regla Angel on 07-27-2023 Basophils/100 WBC (Bld) 0.6 % 0-1 [facility] Bilirubin [Mass/Vol] 0.30 mg/dL 0.20-1.[address] [facility] Comment on above: For patients on eltr ombopag therapy, use of Dimension [place] TBIL is not recommended. Chloride [Moles/Vol] 109 mmol/L 98-[address] [facility] Eosinophils/100 WBC (Bld) 0.9 % 0-5 [facility] Glucose [Mass/Vol] 84 mg/dL 74-106 [facility] Hemoglobin (Bld) [Mass/Vol] 12.9 g/dL 12.0-15.0 [facility] Monocytes/100 WBC (Bld) 6.4 % 0-10 [facility] Neutrophils (Bld) [#/Vol] 3.9 10*3/uL 2.0-7.7 [facility] Neutrophils/100 WBC (Bld) 55.3 % 47-70 [facility] Potassium [Moles/Vol] 3.5 mmol/L 3.5-5.1 [facility] Protein [Mass/Vol] 7.7 g/dL 6.4-8.2 [facility] Sodium [Moles/Vol] 139 mmol/L 136-145 [facility] WBC (Bld) [#/Vol] 7.0 10*3/uL 4.4-11.0 [facility] Determination of erythrocyte mean corpuscular volume (MCV)Ordered By: Regla Ortiz on 07-27-2023 MCV (RBC) [Entitic vol] 91.0 fL 81-99 [facility] Erythrocyte distribution wid th ratioOrdered By: Regla Ortiz on 07-27-2023 Erythrocyte distribution width (RBC) [Ratio] 13.3 % 11.6-14.6 [facility] Erythrocyte distribution wid th standard deviationOrdered By: Regla Ortiz on 07-27-2023 Erythrocyte distribution width (RBC) [Entitic vol] 44.4 fL 35.1-43.9 [facility] Hematocrit Auto (Bld) [Volum e fraction]Ordered By: Regla Ortiz on 07-27-2023 Hematocrit (Bld) [Volume fraction] 38.5 % 37-47 [facility] Immature granulocytes/100 WB C Auto (Bld)Ordered By: Regla Ortiz on 07-27-2023 Immature granulocytes/100 WBC (Bld) 0.300 % 0.0-0.9 [facility] Comment on above: IG% - Immature Granu locytes (promyelocytes, myelocytes and metamyelocytes) > 1% indicates that a LEFT SHIFT is Present. Laboratory - Chemistry and C hemistry - challengeOrdered By: Regla Ortiz on 07-27-2023 Albumin/Globulin [Mass ratio] 1.1 {ratio} 0.9-2.4 [facility] ALP [Catalytic activity/Vol] 85 U/L 45-117 [facility] ALT [Catalytic activity/Vol] 37 U/L 13-56 [facility] CO2 [Moles/Vol] 23.0 mmol/L 21.0-32.0 [facility] Globulin (S) [Mass/Vol] 3.6 g/dL 2.2-4.2 [facility] Lipase [Catalytic activity/Vol] 20 U/L 13-75 [facility] Comment on above: Please note:LIPASE r evised reference range effective 22. New Lipase methodology. Expected to produce lower values than the previous assay method. NEW Reference Range: 13 - 75 U/L Urea nitrogen/Creatinine [Mass ratio] 10.5 mg/mg 10-20 [facility] Laboratory - Hematology and Cell countsOrdered By: Regla Ortiz on 07-27-2023 MCH (RBC) [Entitic mass] 30.5 pg 27.0-32.0 [facility] MCHC (RBC) [Mass/Vol] 33.5 g/dL 32-36 [facility] Nucleated RBC/100 WBC (Bld) [Ratio] 0 % 0-5 [facility] Platelet mean volume (Bld) [Entitic vol] 9.0 fL 6.2-12.0 [facility] Platelets (Bld) [#/Vol] 392 10*3/uL 150-450 [facility] No Panel InformationOrdered By: Regla Ortiz on 07-27-2023 Estimated Creatinine Clearance Calc 93.40 ml/min [facility] Estimated GFR (MDRD) Amer 95 mL/min >60 [facility] Comment on above: GFR Calc Estimated GFR (MDRD) Non-Af Amer 78 mL/min >60 [facility] Comment on above: Non- GFR Calc RBC Auto (Bld) [#/Vol]Ordere d By: Regla Ortiz on 07-27-2023 RBC (Bld) [#/Vol] 4.23 10*6/uL 4.2-5.4 [facility] Serum or plasma calcium angie urement (mass/volume)Ordered By: Regla Ortiz on 07-27-2023 Calcium [Mass/Vol] 9.3 mg/dL 8.5-10.1 [facility] Serum or plasma creatinine m easurement (mass/volume)Ordered By: Regla Ortiz on 07-27-2023 Creatinine [Mass/Vol] 0.86 mg/dL 0.55-1.02 [facility] Comment on above: The validity of the calculated GFR & GFRAA in patients over 70 years has not been determined. Clinical correlation is essential. Serum or plasma urea nitroge n measurement (mass/volume)Ordered By: Regla Ortiz on 07-27-2023 Urea nitrogen [Mass/Vol] 9 mg/dL 7-18 [facility] Thin prep Papanicolaou smear with manual screeningOrdered By: Regla Ortiz on 07-27-2023 Thin prep Papanicolaou smear with manual screening 4.1 g/dL 3.2-5.0 [facility] Thin prep Papanicolaou smear with manual screening 23 U/L 15-37 [facility] Thin prep Papanicolaou smear with manual screening 7 5-15 [facility] No Panel Informationon 06-03 Radiology Study observation (narrative) [facility] XR Lumbar spine 3 Viewson IMPRESSION: No acute osseous abnormalities are identified. Anatomic Variant: None. L4-5 is considered the level of the iliac crest and assume there are 5 lumbar-type vertebrae. Primary Education Professor: DIEGO Transcribe Date/Time: Jun 03 2023 6:28P Dictated by : MISTI ALEMAN MD This examination was interpreted and the report reviewed and electronically signed by: MISTI ALEMAN MD on Jun 03 2023 6:30PM [facility] DIVISION OF RADIOLOGY * * *Final Report* * * DATE OF EXAM: Jun 03 2023 6:10PM WOX 5228 - XR LUMBAR 3V AP/LAT/L5-S1 / PROCEDURE REASON: Pain * * * * Physician Interpretation * * * * EXAMINATION: XR LUMBAR 3V AP/LAT/L5-S1 CLINICAL HISTORY: Pain TECHNIQUE: XR LUMBAR 3V AP/LAT/L5-S1 with 3 views on 3 images MQ: XLS_1 COMPARISON: None. RESULT: Counting Reference: Lumbosacral junction on lateral view. For the purposes of this report, L5S1 is considered the last lumbar type disc space and L4-5 is considered the level of the iliac crest. Normal. Post-op assessment: N/A Alignment: Convex leftward lumbar scoliosis is noted Vertebral bodies: Normal in height. No vertebral fracture. Spine articulations: Disc spaces are normal. Normal, facet joints are maintained. Soft tissues: Normal. DIVISION OF RADIOLOGY Provider, [facility] - 06/03/2023 * * *Final Report* * * DATE OF EXAM: Jun 03 2023 6:10PM WOX 5228 - XR LUMBAR 3V AP/LAT/L5-S1 / PROCEDURE REASON: Pain * * * * Physician Interpretation * * * * EXAMINATION: XR LUMBAR 3V AP/LAT/L5-S1 CLINICAL HISTORY: Pain TECHNIQUE: XR LUMBAR 3V AP/LAT/L5-S1 with 3 views on 3 images MQ: XLS_1 COMPARISON: None. RESULT: Counting Reference: Lumbosacral junction on lateral view. For the purposes of this report, L5S1 is considered the last lumbar type disc space and L4-5 is considered the level of the iliac crest. Normal. Post-op assessment: N/A Alignment: Convex leftward lumbar scoliosis is noted Vertebral bodies: Normal in height. No vertebral fracture. Spine articulations: Disc spaces are normal. Normal, facet joints are maintained. Soft tissues: Normal. IMPRESSION IMPRESSION: No acute osseous abnormalities are identified. Anatomic Variant: None. L4-5 is considered the level of the iliac crest and assume there are 5 lumbar-type vertebrae. Primary Education Professor: DIEGO Transcribe Date/Time: Jun 03 2023 6:28P Dictated by : MISTI ALEMAN MD This examination was interpreted and the report reviewed and electronically signed by: MISTI ALEMAN MD on Jun 03 2023 6:30PM EST [facility] XR Lumbar spine 3 ViewsOrder ed By: Cc Provider on 06-03-2023 [facility] XR Thoracic spine AP and Lat eralon 06-03-2023 IMPRESSION: No acute osseous abnormalities are identified. Primary Education Professor: [facility] Transcribe Date/Time: Jun 03 2023 6:21P Dictated by : MISTI ALEMAN MD This examination was interpreted and the report reviewed and electronically signed by: MISTI ALEMAN MD on Jun 03 2023 6:22PM [facility] DIVISION OF RADIOLOGY * * *Final Report* * * DATE OF EXAM: Jun 03 2023 6:10PM WOX 5262 - XR THORACIC 2V AP/LAT / PROCEDURE REASON: Pain * * * * Physician Interpretation * * * * HISTORY: Pain COMPARISON: None. AP and lateral x-ray views of the thoracic spine: There is no evidence of fracture. Mild convex rightward thoracic scoliosis is noted. The thoracic vertebral bodies are of normal height and contour. The intravertebral disk spaces appear well preserved. [facility] * * *Final Report* * * DATE OF EXAM: Jun 03 2023 6:10PM WOX 5262 - XR THORACIC 2V AP/LAT / PROCEDURE REASON: Pain * * * * Physician Interpretation * * * * HISTORY: Pain COMPARISON: None. AP and lateral x-ray views of the thoracic spine: There is no evidence of fracture. Mild convex rightward thoracic scoliosis is noted. The thoracic vertebral bodies are of normal height and contour. The intravertebral disk spaces appear well preserved. IMPRESSION IMPRESSION: No acute osseous abnormalities are identified. Primary Education Professor: [facility] Transcribe Date/Time: Jun 03 2023 6:21P Dictated by : MISTI ALEMAN MD This examination was interpreted and the report reviewed and electronically signed by: MISTI ALEMAN MD on Jun 03 2023 6:22PM EST [facility] Absolute lymphocyte countOrd ered By: Fernando Huerta on 04-27-2023 Lymphocytes Auto (Unsp spec) [#/Vol] 2.75 10*3/uL 0.83-4.51 [facility] Basophil percentageOrdered B y: Fernando Rudychristian on 04-27-2023 Basophil percentage 0-5 SEEN /hpf 0-5 [facility] Basophils/100 WBC (Bld) 0.4 % 0-1 [facility] Bilirubin [Mass/Vol] 0.20 mg/dL 0.20-1.[address] [facility] Comment on above: For patients on eltr ombopag therapy, use of Dimension [place] TBIL is not recommended. Chloride [Moles/Vol] 106 mmol/L 98-[address] [facility] Eosinophils/100 WBC (Bld) 1.4 % 0-5 [facility] Glucose [Mass/Vol] 84 mg/dL 74-106 [facility] Neutrophils (Bld) [#/Vol] 4.4 10*3/uL 2.0-7.7 [facility] Neutrophils/100 WBC (Bld) 55.2 % 47-70 [facility] Potassium [Moles/Vol] 3.7 mmol/L 3.5-5.1 [facility] Protein [Mass/Vol] 7.6 g/dL 6.4-8.2 [facility] Sodium [Moles/Vol] 141 mmol/L 136-145 [facility] WBC (Bld) [#/Vol] 8.0 10*3/uL 4.4-11.0 [facility] Beta hCG serum qualOrdered B y: Fernando Huerta on 04-27-2023 Beta HCG ( test) Ql Negative [facility] Bilirubin Test strip Ql (U)O rdered By: Fernando Huerta on 04-27-2023 Bilirubin Ql (U) Negative Negative [facility] Blood erythrocytes count (nu mber/volume)Ordered By: Fernando Huerta on 04-27-2023 RBC (Bld) [#/Vol] 4.32 10*6/uL 4.2-5.4 [facility] Blood hemoglobin measurement (mass/volume)Ordered By: Fernando Huerta on 04-27-2023 Hemoglobin (Bld) [Mass/Vol] 13.5 g/dL 12.0-15.0 [facility] Blood lymphocytes/100 leukoc ytesOrdered By: Fernando Huerta on 04-27-2023 Lymphocytes/100 WBC (Bld) 34.3 % 19-41 [facility] Blood monocytes/100 leukocyt esOrdered By: Fernando Huerta on 04-27-2023 Monocytes/100 WBC (Bld) 8.5 % 0-10 [facility] Blood platelet mean volumeOr dered By: Fernando Huerta on 04-27-2023 Platelet mean volume (Bld) [Entitic vol] 8.9 fL 6.2-12.0 [facility] Determination of erythrocyte mean corpuscular volume (MCV)Ordered By: Fernando Huerta on 04-27-2023 MCV (RBC) [Entitic vol] 91.4 fL 81-99 [facility] Hematocrit Auto (Bld) [Volum e fraction]Ordered By: Fernando Huerta on 04-27-2023 Hematocrit (Bld) [Volume fraction] 39.5 % 37-47 [facility] Ketones Test strip Ql (U)Ord ered By: Fernando Huerta on 04-27-2023 Ketones Ql (U) 5 mg/dl Negative [facility] Laboratory - Chemistry and C hemistry - challengeOrdered By: Fernando Huerta on 04-27-2023 ALP [Catalytic activity/Vol] 97 U/L 45-117 [facility] ALT [Catalytic activity/Vol] 37 U/L 13-56 [facility] CO2 [Moles/Vol] 26.0 mmol/L 21.0-32.0 [facility] Globulin (S) [Mass/Vol] 3.9 g/dL 2.2-4.2 [facility] Lipase [Catalytic activity/Vol] 22 U/L 13-75 [facility] Comment on above: Please note:LIPASE r evised reference range effective 22. New Lipase methodology. Expected to produce lower values than the previous assay method. NEW Reference Range: 13 - 75 U/L Urea nitrogen/Creatinine [Mass ratio] 9.1 mg/mg 10-20 [facility] Laboratory - Hematology and Cell countsOrdered By: Fernando Huerta on 04-27-2023 Erythrocyte distribution width (RBC) [Entitic vol] 43.2 fL 35.1-43.9 [facility] Erythrocyte distribution width (RBC) [Ratio] 12.8 % 11.6-14.6 [facility] Immature granulocytes/100 WBC (Bld) 0.200 % 0.0-0.9 [facility] Comment on above: IG% - Immature Granu locytes (promyelocytes, myelocytes and metamyelocytes) > 1% indicates that a LEFT SHIFT is Present. MCH (RBC) [Entitic mass] 31.3 pg 27.0-32.0 [facility] Nucleated RBC/100 WBC (Bld) [Ratio] 0 % 0-5 [facility] MCHC Auto (RBC) [Mass/Vol]Or dered By: Fernando Huerta on 04-27-2023 MCHC (RBC) [Mass/Vol] 34.2 g/dL 32-36 [facility] Mucus LM Ql (Urine sed)Order ed By: Fernando Huerta on 04-27-2023 Mucus Ql (Urine sed) 0 SEEN /hpf [facility] Nitrite Test strip Ql (U)Ord ered By: Fernando Huerta on 04-27-2023 Nitrite Ql (U) Negative Negative [facility] No Panel InformationOrdered By: Fernando Huerta on 04-27-2023 Estimated Creatinine Clearance Calc 71.00 ml/min [facility] Estimated GFR (MDRD) Amer 93 mL/min >60 [facility] Comment on above: GFR Calc Estimated GFR (MDRD) Non-Af Amer 76 mL/min >60 [facility] Comment on above: Non- GFR Calc Platelets bldOrdered By: Ivana Huerta on 04-27-2023 Platelets (Bld) [#/Vol] 399 10*3/uL 150-450 [facility] Protein Test strip Ql (U)Ord ered By: Fernando Huerta on 04-27-2023 Protein Ql (U) 15 mg/dl Negative [facility] Serum or plasma albumin angie urement (mass/volume)Ordered By: Fernando Huerta on 04-27-2023 Albumin [Mass/Vol] 3.7 g/dL 3.2-5.0 [facility] Serum or plasma albumin/glob ulin mass ratioOrdered By: Fernando Huerta on 04-27-2023 Albumin/Globulin [Mass ratio] 0.9 {ratio} 0.9-2.4 [facility] Serum or plasma calcium angie urement (mass/volume)Ordered By: Fernando Huerta on 04-27-2023 Calcium [Mass/Vol] 8.7 mg/dL 8.5-10.1 [facility] Serum or plasma creatinine m easurement (mass/volume)Ordered By: Fernando Huerta on 04-27-2023 Creatinine [Mass/Vol] 0.88 mg/dL 0.55-1.02 [facility] Comment on above: The validity of the calculated GFR & GFRAA in patients over 70 years has not been determined. Clinical correlation is essential. Serum or plasma urea nitroge n measurement (mass/volume)Ordered By: Fernando Huerta on 04-27-2023 Urea nitrogen [Mass/Vol] 8 mg/dL 7-18 [facility] Squamous epithelial cells de tection in urine sediment by light microscopyOrdered By: Fernando Huerta on 04-27-2023 Epithelial cells.squamous LM Ql (Urine sed) 0-5 SEEN /hpf 5-10 [facility] Thin prep Papanicolaou smear with manual screeningOrdered By: Fernando Huerta on 04-27-2023 Thin prep Papanicolaou smear with manual screening 17 U/L 15-37 [facility] Thin prep Papanicolaou smear with manual screening 9 5-15 [facility] Urine blood detectionOrdered By: Fernando Huerta on 04-27-2023 RBC Ql (U) Negative Negative [facility] RBC Ql (U) 0 SEEN /hpf 0-5 [facility] Urine clarityOrdered By: Ivana Huerta on 04-27-2023 Clarity (U) Clear Clear [facility] Urine color determinationOrd ered By: Fernando Huerta on 04-27-2023 Color (U) Yellow Yellow [facility] Urine glucose detectionOrder ed By: Fernando Huerta on 04-27-2023 Glucose Ql (U) Normal mg/dl Normal [facility] Urine leukocyte esterase det ection by dipstickOrdered By: Fernando Huerta on 04-27-2023 Leukocyte esterase Test strip Ql (U) 25 /ul Negative [facility] Urine pHOrdered By: Fernando hinkle on 04-27-2023 pH (U) 6.0 [pH] 5.0 - 8.0 [facility] Urine sediment bacteria coun t by microscopy (number/high power field)Ordered By: Fernando Huerta on 04-27-2023 Bacteria LM.HPF (Urine sed) [#/Area] 0 /[HPF] None Seen [facility] Urine specific gravity measu rementOrdered By: Fernando Huerta on 04-27-2023 Specific gravity (U) [Rel density] 1.020 1.002-1.030 [facility] Urobilinogen Auto test strip Ql (U)Ordered By: Fernando Huerta on 04-27-2023 Urobilinogen Ql (U) 1 mg/dl Normal [facility] Absolute lymphocyte countOrd ered By: Fernando Huerta on 02-13-2023 Lymphocytes Auto (Unsp spec) [#/Vol] 1.14 10*3/uL 0.83-4.51 [facility] Basophil percentageOrdered B y: Fernando Huerta on 02-13-2023 Basophil percentage 0 SEEN /hpf 0-[address] [facility] Basophils/100 WBC (Bld) 0.2 % 0-1 [facility] Bilirubin [Mass/Vol] 0.40 mg/dL 0.20-1.[address] [facility] Comment on above: For patients on eltr ombopag therapy, use of Dimension [place] TBIL is not recommended. Chloride [Moles/Vol] 110 mmol/L 98-[address] [facility] Eosinophils/100 WBC (Bld) 0.1 % 0-5 [facility] Glucose [Mass/Vol] 103 mg/dL 74-106 [facility] Comment on above: Fasting Glucose resu lt from 100 to 125 mg/dL suggests IMPAIRED HOMEOSTASIS per A.D.A. criteria. Neutrophils (Bld) [#/Vol] 8.8 10*3/uL 2.0-7.7 [facility] Neutrophils/100 WBC (Bld) 81.8 % 47-70 [facility] Potassium [Moles/Vol] 3.1 mmol/L 3.5-5.1 [facility] Protein [Mass/Vol] 7.0 g/dL 6.4-8.2 [facility] Sodium [Moles/Vol] 139 mmol/L 136-145 [facility] WBC (Bld) [#/Vol] 10.7 10*3/uL 4.4-11.0 [facility] Bilirubin Test strip Ql (U)O rdered By: Fernando Huerta on 02-13-2023 Bilirubin Ql (U) Negative Negative [facility] Blood erythrocytes count (nu mber/volume)Ordered By: Fernando Huerta on 02-13-2023 RBC (Bld) [#/Vol] 3.93 10*6/uL 4.2-5.4 [facility] Blood hemoglobin measurement (mass/volume)Ordered By: Fernando Huerta on 02-13-2023 Hemoglobin (Bld) [Mass/Vol] 12.1 g/dL 12.0-15.0 [facility] Blood lymphocytes/100 leukoc ytesOrdered By: Fernando Huerta on 02-13-2023 Lymphocytes/100 WBC (Bld) 10.7 % 19-41 [facility] Blood monocytes/100 leukocyt esOrdered By: Fernando Huerta on 02-13-2023 Monocytes/100 WBC (Bld) 6.7 % 0-10 [facility] Blood platelet mean volumeOr dered By: Fernando Huerta on 02-13-2023 Platelet mean volume (Bld) [Entitic vol] 9.6 fL 6.2-12.0 [facility] Determination of erythrocyte mean corpuscular volume (MCV)Ordered By: Fernando Huerta on 02-13-2023 MCV (RBC) [Entitic vol] 93.4 fL 81-99 [facility] Hematocrit Auto (Bld) [Volum e fraction]Ordered By: Fernando Huerta on 02-13-2023 Hematocrit (Bld) [Volume fraction] 36.7 % 37-47 [facility] Ketones Test strip Ql (U)Ord ered By: Fernando Huerta on 02-13-2023 Ketones Ql (U) Negative Negative [facility] Laboratory - Chemistry and C hemistry - challengeOrdered By: Fernando Huerta on 02-13-2023 ALP [Catalytic activity/Vol] 75 U/L 45-117 [facility] ALT [Catalytic activity/Vol] 19 U/L 13-56 [facility] CO2 [Moles/Vol] 23.0 mmol/L 21.0-32.0 [facility] Globulin (S) [Mass/Vol] 3.5 g/dL 2.2-4.2 [facility] Lipase [Catalytic activity/Vol] 78 U/L 13-75 [facility] Comment on above: Please note:LIPASE r evised reference range effective 22. New Lipase methodology. Expected to produce lower values than the previous assay method. NEW Reference Range: 13 - 75 U/L Urea nitrogen/Creatinine [Mass ratio] 10.3 mg/mg 10-20 [facility] Laboratory - Hematology and Cell countsOrdered By: Fernando Huerta on 02-13-2023 Erythrocyte distribution width (RBC) [Entitic vol] 43.5 fL 35.1-43.9 [facility] Erythrocyte distribution width (RBC) [Ratio] 12.6 % 11.6-14.6 [facility] Immature granulocytes/100 WBC (Bld) 0.500 % 0.0-0.9 [facility] Comment on above: IG% - Immature Granu locytes (promyelocytes, myelocytes and metamyelocytes) > 1% indicates that a LEFT SHIFT is Present. MCH (RBC) [Entitic mass] 30.8 pg 27.0-32.0 [facility] Nucleated RBC/100 WBC (Bld) [Ratio] 0 % 0-5 [facility] MCHC Auto (RBC) [Mass/Vol]Or dered By: Fernando Huerta on 02-13-2023 MCHC (RBC) [Mass/Vol] 33.0 g/dL 32-36 [facility] Mucus LM Ql (Urine sed)Order ed By: Fernando Huerta on 02-13-2023 Mucus Ql (Urine sed) 0 SEEN /hpf [facility] Nitrite Test strip Ql (U)Ord ered By: Fernando Huerta on 02-13-2023 Nitrite Ql (U) Negative Negative [facility] No Panel InformationOrdered By: Fernando Huerta on 02-13-2023 Estimated Creatinine Clearance Calc 71.00 ml/min [facility] Estimated GFR (MDRD) Amer 92 mL/min >60 [facility] Comment on above: GFR Calc Estimated GFR (MDRD) Non-Af Amer 76 mL/min >60 [facility] Comment on above: Non- GFR Calc Platelets bldOrdered By: Ivana Huerta on 02-13-2023 Platelets (Bld) [#/Vol] 338 10*3/uL 150-450 [facility] Protein Test strip Ql (U)Ord ered By: Fernando Huerta on 02-13-2023 Protein Ql (U) Negative Negative [facility] Serum or plasma albumin angie urement (mass/volume)Ordered By: Fernando Huerta on 02-13-2023 Albumin [Mass/Vol] 3.5 g/dL 3.2-5.0 [facility] Serum or plasma albumin/glob ulin mass ratioOrdered By: Fernando Huerta on 02-13-2023 Albumin/Globulin [Mass ratio] 1.0 {ratio} 0.9-2.4 [facility] Serum or plasma calcium angie urement (mass/volume)Ordered By: Fernando Huerta on 02-13-2023 Calcium [Mass/Vol] 8.8 mg/dL 8.5-10.1 [facility] Serum or plasma creatinine m easurement (mass/volume)Ordered By: Fernando Huerta on 02-13-2023 Creatinine [Mass/Vol] 0.88 mg/dL 0.55-1.02 [facility] Comment on above: The validity of the calculated GFR & GFRAA in patients over 70 years has not been determined. Clinical correlation is essential. Serum or plasma urea nitroge n measurement (mass/volume)Ordered By: Fernando Huerta on 02-13-2023 Urea nitrogen [Mass/Vol] 9 mg/dL 7-18 [facility] Squamous epithelial cells de tection in urine sediment by light microscopyOrdered By: Fernando Huerta on 02-13-2023 Epithelial cells.squamous LM Ql (Urine sed) 0 SEEN /hpf 5-10 [facility] Thin prep Papanicolaou smear with manual screeningOrdered By: Fernando Huerta on 02-13-2023 Thin prep Papanicolaou smear with manual screening 8 U/L 15-37 [facility] Thin prep Papanicolaou smear with manual screening 6 5-15 [facility] Urine blood detectionOrdered By: Fernando Huerta on 02-13-2023 RBC Ql (U) Negative Negative [facility] RBC Ql (U) 0 SEEN /hpf 0-5 [facility] Urine clarityOrdered By: Ivana Huerta on 02-13-2023 Clarity (U) Clear Clear [facility] Urine color determinationOrd ered By: Fernando Huerta on 02-13-2023 Color (U) Yellow Yellow [facility] Urine glucose detectionOrder ed By: Fernando Huerta on 02-13-2023 Glucose Ql (U) Normal mg/dl Normal [facility] Urine leukocyte esterase det ection by dipstickOrdered By: Fernando Huerta on 02-13-2023 Leukocyte esterase Test strip Ql (U) Negative Negative [facility] Urine pHOrdered By: Fernando hinkle on 02-13-2023 pH (U) 6.5 [pH] 5.0 - 8.0 [facility] Urine sediment bacteria coun t by microscopy (number/high power field)Ordered By: Fernando Huerta on 02-13-2023 Bacteria LM.HPF (Urine sed) [#/Area] 0 /[HPF] None Seen [facility] Urine specific gravity measu rementOrdered By: Fernando Huerta on 02-13-2023 Specific gravity (U) [Rel density] 1.005 1.002-1.030 [facility] Urobilinogen Auto test strip Ql (U)Ordered By: Fernando Huerta on 02-13-2023 Urobilinogen Ql (U) Normal mg/dl Normal [facility] - Chemistry and C hemistry - challengeOrdered By: Olivier Mills on 02-12-2023 HCG ( test) Ql (U) Negative [facility] Comment on above: Very dilute urine sp ecimens, as indicated by a low specificgravity, may not contain farm loan representative levels of hCG. If is still suspected, a first morning urinespecimen should be collected 48 hours later and tested. Absolute lymphocyte countOrd ered By: Marquise Solares on 01-17-2023 Lymphocytes Auto (Unsp spec) [#/Vol] 2.85 10*3/uL 0.83-4.51 [facility] Basophil percentageOrdered B y: Marquise Solares on 01-17-2023 Basophils/100 WBC (Bld) 0.6 % 0-1 [facility] Bilirubin [Mass/Vol] 0.20 mg/dL 0.20-1.[address] [facility] Comment on above: For patients on eltr ombopag therapy, use of Dimension [place] TBIL is not recommended. Chloride [Moles/Vol] 108 mmol/L 98-[address] [facility] Eosinophils/100 WBC (Bld) 1.1 % 0-5 [facility] Glucose [Mass/Vol] 90 mg/dL 74-106 [facility] Neutrophils (Bld) [#/Vol] 3.6 10*3/uL 2.0-7.7 [facility] Neutrophils/100 WBC (Bld) 50.0 % 47-70 [facility] Potassium [Moles/Vol] 3.7 mmol/L 3.5-5.1 [facility] Comment on above: Slight Hemolysis, Re sult may be falsely increased. Protein [Mass/Vol] 7.7 g/dL 6.4-8.2 [facility] Sodium [Moles/Vol] 138 mmol/L 136-145 [facility] WBC (Bld) [#/Vol] 7.3 10*3/uL 4.4-11.0 [facility] Beta hCG serum qualOrdered B y: Marquise Solares on 01-17-2023 Beta HCG ( test) Ql Negative [facility] Blood erythrocytes count (nu mber/volume)Ordered By: Marquise Solares on 01-17-2023 RBC (Bld) [#/Vol] 4.28 10*6/uL 4.2-5.4 [facility] Blood hemoglobin measurement (mass/volume)Ordered By: Marquise Solares on 01-17-2023 Hemoglobin (Bld) [Mass/Vol] 13.3 g/dL 12.0-15.0 [facility] Blood lymphocytes/100 leukoc ytesOrdered By: Marquise Solares on 01-17-2023 Lymphocytes/100 WBC (Bld) 39.3 % 19-41 [facility] Blood monocytes/100 leukocyt esOrdered By: Marquise Solares on 01-17-2023 Monocytes/100 WBC (Bld) 8.7 % 0-10 [facility] Blood platelet mean volumeOr dered By: Marquise Solares on 01-17-2023 Platelet mean volume (Bld) [Entitic vol] 9.1 fL 6.2-12.0 [facility] Determination of erythrocyte mean corpuscular volume (MCV)Ordered By: Marquise Solares on 01-17-2023 MCV (RBC) [Entitic vol] 95.1 fL 81-99 [facility] Hematocrit Auto (Bld) [Volum e fraction]Ordered By: Marquise Solares on 01-17-2023 Hematocrit (Bld) [Volume fraction] 40.7 % 37-47 [facility] - Chemistry and C hemistry - challengeOrdered By: Marquise Solares on 01-17-2023 ALP [Catalytic activity/Vol] 85 U/L 45-117 [facility] ALT [Catalytic activity/Vol] 31 U/L 13-56 [facility] CO2 [Moles/Vol] 26.0 mmol/L 21.0-32.0 [facility] Globulin (S) [Mass/Vol] 3.9 g/dL 2.2-4.2 [facility] Lipase [Catalytic activity/Vol] 20 U/L 13-75 [facility] Comment on above: Please note:LIPASE r evised reference range effective 22. New Lipase methodology. Expected to produce lower values than the previous assay method. NEW Reference Range: 13 - 75 U/L Urea nitrogen/Creatinine [Mass ratio] 10.3 mg/mg 10-20 [facility] - Hematology and Cell countsOrdered By: Marquise Solares on 01-17-2023 Erythrocyte distribution width (RBC) [Entitic vol] 44.2 fL 35.1-43.9 [facility] Erythrocyte distribution width (RBC) [Ratio] 12.6 % 11.6-14.6 [facility] Immature granulocytes/100 WBC (Bld) 0.300 % 0.0-0.9 [facility] Comment on above: IG% - Immature Granu locytes (promyelocytes, myelocytes and metamyelocytes) > 1% indicates that a LEFT SHIFT is Present. MCH (RBC) [Entitic mass] 31.1 pg 27.0-32.0 [facility] Nucleated RBC/100 WBC (Bld) [Ratio] 0 % 0-5 [facility] Auto (RBC) [Mass/Vol]Or dered By: Marquise Solares on 01-17-2023 MCHC (RBC) [Mass/Vol] 32.7 g/dL 32-36 [facility] No Panel InformationOrdered By: Marquise Solares on 01-17-2023 Estimated Creatinine Clearance Calc 64.41 ml/min [facility] Estimated GFR (MDRD) Amer 82 mL/min >60 [facility] Comment on above: GFR Calc Estimated GFR (MDRD) Non-Af Amer 68 mL/min >60 [facility] Comment on above: Non- GFR Calc Platelets bldOrdered By: Alfredito Solares on 01-17-2023 Platelets (Bld) [#/Vol] 356 10*3/uL 150-450 [facility] Serum or plasma albumin angie urement (mass/volume)Ordered By: Marquise Solares on 01-17-2023 Albumin [Mass/Vol] 3.8 g/dL 3.2-5.0 [facility] Serum or plasma albumin/glob ulin mass ratioOrdered By: Marquise Solares on 01-17-2023 Albumin/Globulin [Mass ratio] 1.0 {ratio} 0.9-2.4 [facility] Serum or plasma calcium angie urement (mass/volume)Ordered By: Marquise Solares on 01-17-2023 Calcium [Mass/Vol] 9.0 mg/dL 8.5-10.1 [facility] Serum or plasma creatinine m easurement (mass/volume)Ordered By: Marquise Solares on 01-17-2023 Creatinine [Mass/Vol] 0.97 mg/dL 0.55-1.02 [facility] Comment on above: The validity of the calculated GFR & GFRAA in patients over 70 years has not been determined. Clinical correlation is essential. Serum or plasma urea nitroge n measurement (mass/volume)Ordered By: Marquise Solares on 01-17-2023 Urea nitrogen [Mass/Vol] 10 mg/dL 7-18 [facility] Thin prep Papanicolaou smear with manual screeningOrdered By: Marquise Solares on 01-17-2023 Thin prep Papanicolaou smear with manual screening 16 U/L 15-37 [facility] Comment on above: Slight Hemolysis, Re sult may be falsely increased. Thin prep Papanicolaou smear with manual screening 4 5-15 [facility] LABORATORYOrdered By: Dave Smith on 01-10-2023 Appearance (U) Clear (01/10/23 2:38 PM) Invalid Interpretation Code Clear AO Auto Urine SS Bilirubin Ql (U) Negative (01/10/23 2:38 PM) Invalid Interpretation Code Negative AO Auto Urine SS Color (U) Yellow (01/10/23 2:38 PM) Invalid Interpretation Code AO Auto Urine SS Glucose Test strip (U) [Mass/Vol] Negative Invalid Interpretation Code Negative AO Auto Urine SS HCG ( test) Ql Negative (01/10/23 2:38 PM) Invalid Interpretation Code AO Manual Urine SS Hemoglobin Auto test strip (U) [Mass/Vol] Negative (01/10/23 2:38 PM) Invalid Interpretation Code Negative AO Auto Urine SS Ketones Ql (U) Negative Invalid Interpretation Code Negative AO Auto Urine SS test (u) int Not detected Invalid Interpretation Code AO Manual Urine SS UA Leuk Est Negative (01/10/23 2:38 PM) Invalid Interpretation Code Negative AO Auto Urine SS UA Nitrite Negative (01/10/23 2:38 PM) Invalid Interpretation Code Negative AO Auto Urine SS UA pH 6.0 (01/10/23 2:38 PM) Invalid Interpretation Code 5.0 - 8.0 AO Auto Urine SS UA Protein Negative Invalid Interpretation Code Negative AO Auto Urine SS UA Spec Grav >=1.030 *ABN* (01/10/23 2:38 PM) Invalid Interpretation Code 1.015-1.025 AO Auto Urine SS UA Specimen Type Clean Catch (01/10/23 2:38 PM) Invalid Interpretation Code AO Auto Urine SS UA Urobilinogen 0.2 E.U./dL Invalid Interpretation Code 0.2-1.0 AO Auto Urine SS Absolute lymphocyte countOrd ered By: ED PROVIDER on 12-06-2022 Lymphocytes Auto (Unsp spec) [#/Vol] 1.03 10*3/uL 0.83-4.51 [facility] Amorphous sediment detection in urine sediment by light microscopyOrdered By: ED PROVIDER on 12-06-2022 Amorphous sediment LM Ql (Urine sed) 1+ [facility] Basophil percentageOrdered B y: ED PROVIDER on 12-06-2022 Basophil percentage 107 mg/dL 74-106 [facility] Basophil percentage 6.5 g/dL 6.4-8.2 [facility] Basophil percentage 0.20 mg/dL 0.20-1.00 [facility] Basophil percentage 138 mmol/L 136-145 [facility] Basophil percentage 4.2 mmol/L 3.5-5.1 [facility] Basophil percentage 107 mmol/L 98-107 [facility] Basophils (Bld) [#/Vol] 12.7 10*3/uL 4.4-11.0 [facility] Basophils (Bld) [#/Vol] 11.3 10*3/uL 2.0-7.7 [facility] Basophils/100 WBC (Bld) 88.8 % 47-70 [facility] Basophils/100 WBC (Bld) 0.0 % 0-5 [facility] Basophils/100 WBC (Bld) 0.1 % 0-1 [facility] Basophil percentage 0-5 SEEN /hpf 0-5 [facility] Beta hCG serum qualOrdered B y: ED PROVIDER on 12-06-2022 Beta HCG ( test) Ql Negative [facility] Bilirubin Test strip Ql (U)O rdered By: ED PROVIDER on 12-06-2022 Bilirubin Ql (U) Negative Negative [facility] Blood erythrocytes count (nu mber/volume)Ordered By: ED PROVIDER on 12-06-2022 RBC (Bld) [#/Vol] 3.87 10*6/uL 4.2-5.4 [facility] Blood hemoglobin measurement (mass/volume)Ordered By: ED PROVIDER on 12-06-2022 Hemoglobin (Bld) [Mass/Vol] 12.2 g/dL 12.0-15.0 [facility] Blood lymphocytes/100 leukoc ytesOrdered By: ED PROVIDER on 12-06-2022 Lymphocytes/100 WBC (Bld) 8.1 % 19-41 [facility] Blood monocytes/100 leukocyt esOrdered By: ED PROVIDER on 12-06-2022 Monocytes/100 WBC (Bld) 2.4 % 0-10 [facility] Blood platelet mean volumeOr dered By: ED PROVIDER on 12-06-2022 Platelet mean volume (Bld) [Entitic vol] 9.1 fL 6.2-12.0 [facility] Determination of erythrocyte mean corpuscular volume (MCV)Ordered By: ED PROVIDER on 12-06-2022 MCV (RBC) [Entitic vol] 94.8 fL 81-99 [facility] Hematocrit Auto (Bld) [Volum e fraction]Ordered By: ED PROVIDER on 12-06-2022 Hematocrit (Bld) [Volume fraction] 36.7 % 37-47 [facility] Ketones Test strip Ql (U)Ord ered By: ED PROVIDER on 12-06-2022 Ketones Ql (U) 5 mg/dl Negative [facility] MCHC Auto (RBC) [Mass/Vol]Or dered By: ED PROVIDER on 12-06-2022 MCHC (RBC) [Mass/Vol] 33.2 g/dL 32-36 [facility] Mucus LM Ql (Urine sed)Order ed By: ED PROVIDER on 12-06-2022 Mucus Ql (Urine sed) 0 SEEN /hpf [facility] Nitrite Test strip Ql (U)Ord ered By: ED PROVIDER on 12-06-2022 Nitrite Ql (U) Negative Negative [facility] No Panel InformationOrdered By: ED PROVIDER on 12-06-2022 31.5 pg 27.0-32.0 [facility] 13.0 % 11.6-14.6 [facility] 44.7 fl 35.1-43.9 [facility] 0.600 % 0.0-0.9 [facility] 0 % 0-5 [facility] 89 mL/min >60 [facility] 107 mL/min >60 [facility] 81.95 ml/min [facility] 14.3 RATIO 10-20 [facility] 3.3 g/dL 2.2-4.2 [facility] 68 U/L 45-117 [facility] 70 U/L 13-56 [facility] 29.0 mmol/L 21.0-32.0 [facility] Platelets bldOrdered By: ED PROVIDER on 12-06-2022 Platelets (Bld) [#/Vol] 397 10*3/uL 150-450 [facility] Protein Test strip Ql (U)Ord ered By: ED PROVIDER on 12-06-2022 Protein Ql (U) 15 mg/dl Negative [facility] Serum or plasma albumin angie urement (mass/volume)Ordered By: ED PROVIDER on 12-06-2022 Albumin [Mass/Vol] 3.2 g/dL 3.2-5.0 [facility] Serum or plasma albumin/glob ulin mass ratioOrdered By: ED PROVIDER on 12-06-2022 Albumin/Globulin [Mass ratio] 1.0 {ratio} 0.9-2.4 [facility] Serum or plasma calcium angie urement (mass/volume)Ordered By: ED PROVIDER on 12-06-2022 Calcium [Mass/Vol] 8.7 mg/dL 8.5-10.1 [facility] Serum or plasma creatinine m easurement (mass/volume)Ordered By: ED PROVIDER on 12-06-2022 Creatinine [Mass/Vol] 0.77 mg/dL 0.55-1.02 [facility] Serum or plasma urea nitroge n measurement (mass/volume)Ordered By: ED PROVIDER on 12-06-2022 Urea nitrogen [Mass/Vol] 11 mg/dL 7-18 [facility] Squamous epithelial cells de tection in urine sediment by light microscopyOrdered By: ED PROVIDER on 12-06-2022 Epithelial cells.squamous LM Ql (Urine sed) 0-5 SEEN /hpf 5-10 [facility] Thin prep Papanicolaou smear with manual screeningOrdered By: ED PROVIDER on 12-06-2022 Thin prep Papanicolaou smear with manual screening 15 U/L 15-37 [facility] Thin prep Papanicolaou smear with manual screening 2 5-15 [facility] Urine blood detectionOrdered By: ED PROVIDER on 12-06-2022 RBC Ql (U) Negative Negative [facility] RBC Ql (U) 0 SEEN /hpf 0-5 [facility] Urine clarityOrdered By: ED PROVIDER on 12-06-2022 Clarity (U) Sl. Cloudy Clear [facility] Urine color determinationOrd ered By: ED PROVIDER on 12-06-2022 Color (U) Yellow Yellow [facility] Urine glucose detectionOrder ed By: ED PROVIDER on 12-06-2022 Glucose Ql (U) Normal mg/dl Normal [facility] Urine leukocyte esterase det ection by dipstickOrdered By: ED PROVIDER on 12-06-2022 Leukocyte esterase Test strip Ql (U) 25 /ul Negative [facility] Urine pHOrdered By: ED PROVI MABEL on 12-06-2022 pH (U) 7.0 [pH] 5.0 - 8.0 [facility] Urine sediment bacteria coun t by microscopy (number/high power field)Ordered By: ED PROVIDER on 12-06-2022 Bacteria LM.HPF (Urine sed) [#/Area] RARE /hpf None Seen [facility] Urine specific gravity measu rementOrdered By: ED PROVIDER on 12-06-2022 Specific gravity (U) [Rel density] 1.010 1.002-1.030 [facility] Urobilinogen Auto test strip Ql (U)Ordered By: ED PROVIDER on 12-06-2022 Urobilinogen Ql (U) Normal mg/dl Normal [facility] Absolute lymphocyte countOrd ered By: Marquise Solares on 11-23-2022 Lymphocytes Auto (Unsp spec) [#/Vol] 2.51 10*3/uL 0.83-4.51 [facility] Basophil percentageOrdered B y: Marquise Solares on 11-23-2022 Basophil percentage 0 SEEN /hpf 0-[address] [facility] Basophil percentage 83 mg/dL 74-106 [facility] Basophil percentage 7.3 g/dL 6.4-8.2 [facility] Basophil percentage 0.30 mg/dL 0.20-1.00 [facility] Basophil percentage 139 mmol/L 136-145 [facility] Basophil percentage 3.5 mmol/L 3.5-5.1 [facility] Basophil percentage 108 mmol/L 98-107 [facility] Basophils (Bld) [#/Vol] 6.0 10*3/uL 4.4-11.0 [facility] Basophils (Bld) [#/Vol] 2.8 10*3/uL 2.0-7.7 [facility] Basophils/100 WBC (Bld) 47.1 % 47-70 [facility] Basophils/100 WBC (Bld) 1.7 % 0-5 [facility] Basophils/100 WBC (Bld) 0.5 % 0-1 [facility] Beta hCG serum qualOrdered B y: Marquise Solares on 11-23-2022 Beta HCG ( test) Ql Negative [facility] Bilirubin Test strip Ql (U)O rdered By: Marquise Solares on 11-23-2022 Bilirubin Ql (U) Negative Negative [facility] Blood erythrocytes count (nu mber/volume)Ordered By: Marquise Solares on 11-23-2022 RBC (Bld) [#/Vol] 4.05 10*6/uL 4.2-5.4 [facility] Blood hemoglobin measurement (mass/volume)Ordered By: Marquise Solares on 11-23-2022 Hemoglobin (Bld) [Mass/Vol] 12.6 g/dL 12.0-15.0 [facility] Blood lymphocytes/100 leukoc ytesOrdered By: Marquise Solares on 11-23-2022 Lymphocytes/100 WBC (Bld) 42.0 % 19-41 [facility] Blood monocytes/100 leukocyt esOrdered By: Marquise Solares on 11-23-2022 Monocytes/100 WBC (Bld) 8.4 % 0-10 [facility] Blood platelet mean volumeOr dered By: Marquise Solares on 11-23-2022 Platelet mean volume (Bld) [Entitic vol] 9.1 fL 6.2-12.0 [facility] Determination of erythrocyte mean corpuscular volume (MCV)Ordered By: Marquise Solares on 11-23-2022 MCV (RBC) [Entitic vol] 92.6 fL 81-99 [facility] Hematocrit Auto (Bld) [Volum e fraction]Ordered By: Marquise Solares on 11-23-2022 Hematocrit (Bld) [Volume fraction] 37.5 % 37-47 [facility] Ketones Test strip Ql (U)Ord ered By: Marquise Solares on 11-23-2022 Ketones Ql (U) Negative Negative [facility] MCHC Auto (RBC) [Mass/Vol]Or dered By: Marquise Solares on 11-23-2022 MCHC (RBC) [Mass/Vol] 33.6 g/dL 32-36 [facility] Mucus LM Ql (Urine sed)Order ed By: Marquise Solares on 11-23-2022 Mucus Ql (Urine sed) 0 SEEN /hpf [facility] Nitrite Test strip Ql (U)Ord ered By: Marquise Solares on 11-23-2022 Nitrite Ql (U) Negative Negative [facility] No Panel InformationOrdered By: Marquise Solares on 11-23-2022 31.1 pg 27.0-32.0 [facility] 12.8 % 11.6-14.6 [facility] 43.8 fl 35.1-43.9 [facility] 0.300 % 0.0-0.9 [facility] 0 % 0-5 [facility] 69 mL/min >60 [facility] 84 mL/min >60 [facility] 66.42 ml/min [facility] 8.4 RATIO 10-20 [facility] 3.6 g/dL 2.2-4.2 [facility] 75 U/L 45-117 [facility] 31 U/L 13-56 [facility] 24.0 mmol/L 21.0-32.0 [facility] Platelets bldOrdered By: Alfredito Solares on 11-23-2022 Platelets (Bld) [#/Vol] 380 10*3/uL 150-450 [facility] Protein Test strip Ql (U)Ord ered By: Marquise Solares on 11-23-2022 Protein Ql (U) Negative Negative [facility] Serum or plasma albumin angie urement (mass/volume)Ordered By: Marquise Solares on 11-23-2022 Albumin [Mass/Vol] 3.7 g/dL 3.2-5.0 [facility] Serum or plasma albumin/glob ulin mass ratioOrdered By: Marquise Solares on 11-23-2022 Albumin/Globulin [Mass ratio] 1.0 {ratio} 0.9-2.4 [facility] Serum or plasma calcium angie urement (mass/volume)Ordered By: Marquise Solares on 11-23-2022 Calcium [Mass/Vol] 8.9 mg/dL 8.5-10.1 [facility] Serum or plasma creatinine m easurement (mass/volume)Ordered By: Marquise Solares on 11-23-2022 Creatinine [Mass/Vol] 0.95 mg/dL 0.55-1.02 [facility] Serum or plasma urea nitroge n measurement (mass/volume)Ordered By: Marquise Solares on 11-23-2022 Urea nitrogen [Mass/Vol] 8 mg/dL 7-18 [facility] Squamous epithelial cells de tection in urine sediment by light microscopyOrdered By: Marquise Solares on 11-23-2022 Epithelial cells.squamous LM Ql (Urine sed) 0 SEEN /hpf 5-10 [facility] Thin prep Papanicolaou smear with manual screeningOrdered By: Marquise Solares on 11-23-2022 Thin prep Papanicolaou smear with manual screening 14 U/L 15-37 [facility] Thin prep Papanicolaou smear with manual screening 7 5-15 [facility] Urine blood detectionOrdered By: Marquise Solares on 11-23-2022 RBC Ql (U) Negative Negative [facility] RBC Ql (U) 0 SEEN /hpf 0-5 [facility] Urine clarityOrdered By: Alfredito Solares on 11-23-2022 Clarity (U) Clear Clear [facility] Urine color determinationOrd ered By: Marquise Solares on 11-23-2022 Color (U) Yellow Yellow [facility] Urine glucose detectionOrder ed By: Marquise Solares on 11-23-2022 Glucose Ql (U) Normal mg/dl Normal [facility] Urine leukocyte esterase det ection by dipstickOrdered By: Marquise Solares on 11-23-2022 Leukocyte esterase Test strip Ql (U) Negative Negative [facility] Urine pHOrdered By: Marquise fofana on 11-23-2022 pH (U) 6.0 [pH] 5.0 - 8.0 [facility] Urine sediment bacteria coun t by microscopy (number/high power field)Ordered By: Marquise Solares on 11-23-2022 Bacteria LM.HPF (Urine sed) [#/Area] 0 /[HPF] None Seen [facility] Urine specific gravity measu rementOrdered By: Marquise Solares on 11-23-2022 Specific gravity (U) [Rel density] 1.010 1.002-1.030 [facility] Urobilinogen Auto test strip Ql (U)Ordered By: Marquise Solares on 11-23-2022 Urobilinogen Ql (U) Normal mg/dl Normal [facility] Absolute lymphocyte countOrd ered By: Dr. Saul on 10-28-2022 Lymphocytes Auto (Unsp spec) [#/Vol] 2.54 10*3/uL 0.83-4.51 [facility] Basophil percentageOrdered B y: Dr. Saul on 10-28-2022 Basophil percentage 91 mg/dL 74-106 [facility] Basophil percentage 7.2 g/dL 6.4-8.2 [facility] Basophil percentage 0.30 mg/dL 0.20-1.00 [facility] Basophil percentage 139 mmol/L 136-145 [facility] Basophil percentage 3.4 mmol/L 3.5-5.1 [facility] Basophil percentage 108 mmol/L 98-107 [facility] Basophils (Bld) [#/Vol] 6.2 10*3/uL 4.4-11.0 [facility] Basophils (Bld) [#/Vol] 2.9 10*3/uL 2.0-7.7 [facility] Basophils/100 WBC (Bld) 46.6 % 47-70 [facility] Basophils/100 WBC (Bld) 1.6 % 0-5 [facility] Basophils/100 WBC (Bld) 0.8 % 0-1 [facility] Basophil percentage 0-5 SEEN /hpf 0-5 [facility] Bilirubin Test strip Ql (U)O rdered By: Dr. Saul on 10-28-2022 Bilirubin Ql (U) Negative Negative [facility] Blood erythrocytes count (nu mber/volume)Ordered By: Dr. Saul on 10-28-2022 RBC (Bld) [#/Vol] 4.04 10*6/uL 4.2-5.4 [facility] Blood hemoglobin measurement (mass/volume)Ordered By: Dr. Saul on 10-28-2022 Hemoglobin (Bld) [Mass/Vol] 12.7 g/dL 12.0-15.0 [facility] Blood lymphocytes/100 leukoc ytesOrdered By: Dr. Saul on 10-28-2022 Lymphocytes/100 WBC (Bld) 40.9 % 19-41 [facility] Blood monocytes/100 leukocyt esOrdered By: Dr. Saul on 10-28-2022 Monocytes/100 WBC (Bld) 9.8 % 0-10 [facility] Blood platelet mean volumeOr dered By: Dr. Saul on 10-28-2022 Platelet mean volume (Bld) [Entitic vol] 9.3 fL 6.2-12.0 [facility] Determination of erythrocyte mean corpuscular volume (MCV)Ordered By: Dr. Saul on 10-28-2022 MCV (RBC) [Entitic vol] 91.8 fL 81-99 [facility] Hematocrit Auto (Bld) [Volum e fraction]Ordered By: Dr. Saul on 10-28-2022 Hematocrit (Bld) [Volume fraction] 37.1 % 37-47 [facility] Ketones Test strip Ql (U)Ord ered By: Dr. Saul on 10-28-2022 Ketones Ql (U) 5 mg/dl Negative [facility] MCHC Auto (RBC) [Mass/Vol]Or dered By: Dr. Saul on 10-28-2022 MCHC (RBC) [Mass/Vol] 34.2 g/dL 32-36 [facility] Mucus LM Ql (Urine sed)Order ed By: Dr. Saul on 10-28-2022 Mucus Ql (Urine sed) 0 SEEN /hpf [facility] Nitrite Test strip Ql (U)Ord ered By: Dr. Saul on 10-28-2022 Nitrite Ql (U) Negative Negative [facility] No Panel InformationOrdered By: Dr. Saul on 10-28-2022 31.4 pg 27.0-32.0 [facility] 12.8 % 11.6-14.6 [facility] 42.6 fl 35.1-43.9 [facility] 0.300 % 0.0-0.9 [facility] 0 % 0-5 [facility] 83 mL/min >60 [facility] 100 mL/min >60 [facility] 76.95 ml/min [facility] 8.6 RATIO 10-20 [facility] 3.6 g/dL 2.2-4.2 [facility] 24 U/L 13-75 [facility] 80 U/L 45-117 [facility] 45 U/L 13-56 [facility] 22.0 mmol/L 21.0-32.0 [facility] Platelets bldOrdered By: Dr. Saul on 10-28-2022 Platelets (Bld) [#/Vol] 378 10*3/uL 150-450 [facility] Protein Test strip Ql (U)Ord ered By: Dr. Saul on 10-28-2022 Protein Ql (U) Negative Negative [facility] Serum or plasma albumin angie urement (mass/volume)Ordered By: Dr. Saul on 10-28-2022 Albumin [Mass/Vol] 3.6 g/dL 3.2-5.0 [facility] Serum or plasma albumin/glob ulin mass ratioOrdered By: Dr. Saul on 10-28-2022 Albumin/Globulin [Mass ratio] 1.0 {ratio} 0.9-2.4 [facility] Serum or plasma calcium angie urement (mass/volume)Ordered By: Dr. Saul on 10-28-2022 Calcium [Mass/Vol] 9.1 mg/dL 8.5-10.1 [facility] Serum or plasma creatinine m easurement (mass/volume)Ordered By: Dr. Saul on 10-28-2022 Creatinine [Mass/Vol] 0.82 mg/dL 0.55-1.02 [facility] Serum or plasma urea nitroge n measurement (mass/volume)Ordered By: Dr. Saul on 10-28-2022 Urea nitrogen [Mass/Vol] 7 mg/dL 7-18 [facility] Squamous epithelial cells de tection in urine sediment by light microscopyOrdered By: Dr. Saul on 10-28-2022 Epithelial cells.squamous LM Ql (Urine sed) 5-10 SEEN /hpf 5-10 [facility] Thin prep Papanicolaou smear with manual screeningOrdered By: Dr. Saul on 10-28-2022 Thin prep Papanicolaou smear with manual screening 19 U/L 15-37 [facility] Thin prep Papanicolaou smear with manual screening 9 5-15 [facility] Urine blood detectionOrdered By: Dr. Saul on 10-28-2022 RBC Ql (U) Negative Negative [facility] RBC Ql (U) 0 SEEN /hpf 0-5 [facility] Urine clarityOrdered By: Dr. Saul on 10-28-2022 Clarity (U) Clear Clear [facility] Urine color determinationOrd ered By: Dr. Saul on 10-28-2022 Color (U) Yellow Yellow [facility] Urine glucose detectionOrder ed By: Dr. Saul on 10-28-2022 Glucose Ql (U) Normal mg/dl Normal [facility] Urine leukocyte esterase det ection by dipstickOrdered By: Dr. Saul on 10-28-2022 Leukocyte esterase Test strip Ql (U) 25 /ul Negative [facility] Urine pHOrdered By: Dr. Gracie pulido on 10-28-2022 pH (U) 6.0 [pH] 5.0 - 8.0 [facility] Urine sediment bacteria coun t by microscopy (number/high power field)Ordered By: Dr. Saul on 10-28-2022 Bacteria LM.HPF (Urine sed) [#/Area] 0 /[HPF] None Seen [facility] Urine specific gravity measu rementOrdered By: Dr. Saul on 10-28-2022 Specific gravity (U) [Rel density] 1.015 1.002-1.030 [facility] Urobilinogen Auto test strip Ql (U)Ordered By: Dr. Saul on 10-28-2022 Urobilinogen Ql (U) 1 mg/dl Normal [facility] Absolute lymphocyte countOrd ered By: Dr. Rascon on 10-26-2022 Lymphocytes Auto (Unsp spec) [#/Vol] 1.36 10*3/uL 0.83-4.51 [facility] Basophil percentageOrdered B y: Dr. Rascon on 10-26-2022 Basophil percentage 115 mg/dL 74-106 [facility] Basophil percentage 6.6 g/dL 6.4-8.2 [facility] Basophil percentage 0.30 mg/dL 0.20-1.00 [facility] Basophil percentage 138 mmol/L 136-145 [facility] Basophil percentage 3.6 mmol/L 3.5-5.1 [facility] Basophil percentage 108 mmol/L 98-107 [facility] Basophils (Bld) [#/Vol] 7.5 10*3/uL 4.4-11.0 [facility] Basophils (Bld) [#/Vol] 5.4 10*3/uL 2.0-7.7 [facility] Basophils/100 WBC (Bld) 0.0 % 0-1 [facility] Basophils/100 WBC (Bld) 72.2 % 47-70 [facility] Bilirubin [Mass/Vol] 0.30 mg/dL 0.20-1.[address] [facility] Comment on above: For patients on eltr ombopag therapy, use of Dimension [place] TBIL is not recommended. Chloride [Moles/Vol] 108 mmol/L 98-[address] [facility] Eosinophils/100 WBC (Bld) 0.0 % 0-5 [facility] Glucose [Mass/Vol] 115 mg/dL 74-106 [facility] Comment on above: Fasting Glucose resu lt from 100 to 125 mg/dL suggests IMPAIRED HOMEOSTASIS per A.D.A. criteria. Neutrophils (Bld) [#/Vol] 5.4 10*3/uL 2.0-7.7 [facility] Neutrophils/100 WBC (Bld) 72.2 % 47-70 [facility] Potassium [Moles/Vol] 3.6 mmol/L 3.5-5.1 [facility] Protein [Mass/Vol] 6.6 g/dL 6.4-8.2 [facility] Sodium [Moles/Vol] 138 mmol/L 136-145 [facility] WBC (Bld) [#/Vol] 7.5 10*3/uL 4.4-11.0 [facility] Blood erythrocytes count (nu mber/volume)Ordered By: Dr. Rascon on 10-26-2022 RBC (Bld) [#/Vol] 3.85 10*6/uL 4.2-5.4 [facility] Blood hemoglobin measurement (mass/volume)Ordered By: Dr. Rascon on 10-26-2022 Hemoglobin (Bld) [Mass/Vol] 12.0 g/dL 12.0-15.0 [facility] Blood lymphocytes/100 leukoc ytesOrdered By: Dr. Rascon on 10-26-2022 Lymphocytes/100 WBC (Bld) 18.1 % 19-41 [facility] Blood monocytes/100 leukocyt esOrdered By: Dr. Rascon on 10-26-2022 Monocytes/100 WBC (Bld) 9.4 % 0-10 [facility] Blood platelet mean volumeOr dered By: Dr. Rascon on 10-26-2022 Platelet mean volume (Bld) [Entitic vol] 9.8 fL 6.2-12.0 [facility] Determination of erythrocyte mean corpuscular volume (MCV)Ordered By: Dr. Rascon on 10-26-2022 MCV (RBC) [Entitic vol] 92.2 fL 81-99 [facility] Hematocrit Auto (Bld) [Volum e fraction]Ordered By: Dr. Rascon on 10-26-2022 Hematocrit (Bld) [Volume fraction] 35.5 % 37-47 [facility] Laboratory - Chemistry and C hemistry - challengeOrdered By: Dr. Rascon on 10-26-2022 ALP [Catalytic activity/Vol] 79 U/L 45-117 [facility] ALT [Catalytic activity/Vol] 50 U/L 13-56 [facility] CO2 [Moles/Vol] 23.0 mmol/L 21.0-32.0 [facility] Globulin (S) [Mass/Vol] 3.4 g/dL 2.2-4.2 [facility] Lipase [Catalytic activity/Vol] 18 U/L 13-75 [facility] Comment on above: Please note:LIPASE r evised reference range effective 22. New Lipase methodology. Expected to produce lower values than the previous assay method. NEW Reference Range: 13 - 75 U/L Urea nitrogen/Creatinine [Mass ratio] 7.7 mg/mg 10-20 [facility] Laboratory - Hematology and Cell countsOrdered By: Dr. Rascon on 10-26-2022 Erythrocyte distribution width (RBC) [Entitic vol] 44.5 fL 35.1-43.9 [facility] Erythrocyte distribution width (RBC) [Ratio] 13.2 % 11.6-14.6 [facility] Immature granulocytes/100 WBC (Bld) 0.300 % 0.0-0.9 [facility] Comment on above: IG% - Immature Granu locytes (promyelocytes, myelocytes and metamyelocytes) > 1% indicates that a LEFT SHIFT is Present. MCH (RBC) [Entitic mass] 31.2 pg 27.0-32.0 [facility] Nucleated RBC/100 WBC (Bld) [Ratio] 0 % 0-5 [facility] MCHC Auto (RBC) [Mass/Vol]Or dered By: Dr. Rascon on 10-26-2022 MCHC (RBC) [Mass/Vol] 33.8 g/dL 32-36 [facility] No Panel InformationOrdered By: Dr. Rascon on 10-26-2022 Estimated Creatinine Clearance Calc 69.34 ml/min [facility] Estimated GFR (MDRD) Amer 88 mL/min >60 [facility] Comment on above: GFR Calc Estimated GFR (MDRD) Non-Af Amer 73 mL/min >60 [facility] Comment on above: Non- GFR Calc 31.2 pg 27.0-32.0 [facility] 13.2 % 11.6-14.6 [facility] 44.5 fl 35.1-43.9 [facility] 0.300 % 0.0-0.9 [facility] 0 % 0-5 [facility] 73 mL/min >60 [facility] 88 mL/min >60 [facility] 69.34 ml/min [facility] 7.7 RATIO 10-20 [facility] 3.4 g/dL 2.2-4.2 [facility] 18 U/L 13-75 [facility] 79 U/L 45-117 [facility] 50 U/L 13-56 [facility] 23.0 mmol/L 21.0-32.0 [facility] Platelets bldOrdered By: Dr. Rascon on 10-26-2022 Platelets (Bld) [#/Vol] 343 10*3/uL 150-450 [facility] Serum or plasma albumin angie urement (mass/volume)Ordered By: Dr. Rascon on 10-26-2022 Albumin [Mass/Vol] 3.2 g/dL 3.2-5.0 [facility] Serum or plasma albumin/glob ulin mass ratioOrdered By: Dr. Rascon on 10-26-2022 Albumin/Globulin [Mass ratio] 0.9 {ratio} 0.9-2.4 [facility] Serum or plasma calcium angie urement (mass/volume)Ordered By: Dr. Rascon on 10-26-2022 Calcium [Mass/Vol] 8.9 mg/dL 8.5-10.1 [facility] Serum or plasma creatinine m easurement (mass/volume)Ordered By: Dr. Rascon on 10-26-2022 Creatinine [Mass/Vol] 0.91 mg/dL 0.55-1.02 [facility] Comment on above: The validity of the calculated GFR & GFRAA in patients over 70 years has not been determined. Clinical correlation is essential. Serum or plasma urea nitroge n measurement (mass/volume)Ordered By: Dr. Rascon on 10-26-2022 Urea nitrogen [Mass/Vol] 7 mg/dL - [facility] Thin prep Papanicolaou smear with manual screeningOrdered By: Dr. Rascon on 10-26-2022 Thin prep Papanicolaou smear with manual screening 28 U/L 15- [facility] Thin prep Papanicolaou smear with manual screening 7 5- [facility] Laboratory - Chemistry and C hemistry - challengeOrdered By: Dr. Solorzano on 10-25-2022 HCG ( test) Ql (U) Negative [facility] Comment on above: Very dilute urine sp ecimens, as indicated by a low specificgravity, may not contain farm loan representative levels of hCG. If is still suspected, a first morning urinespecimen should be collected 48 hours later and tested. No Panel InformationOrdered By: Dr. Solorzano on 10-25-2022 Negative [facility] Absolute lymphocyte countOrd ered By: ED PROVIDER on 10-18-2022 Lymphocytes Auto (Unsp spec) [#/Vol] 3.36 10*3/uL 0.83-4.51 [facility] Basophil percentageOrdered B y: ED PROVIDER on 10-18-2022 Basophil percentage 0 SEEN /hpf 0-[address] [facility] Basophil percentage 104 mg/dL 74-106 [facility] Basophil percentage 7.4 g/dL 6.4-8.2 [facility] Basophil percentage 0.20 mg/dL 0.20-1.00 [facility] Basophil percentage 138 mmol/L 136-145 [facility] Basophil percentage 3.7 mmol/L 3.5-5.1 [facility] Basophil percentage 107 mmol/L 98-107 [facility] Basophils (Bld) [#/Vol] 7.9 10*3/uL 4.4-11.0 [facility] Basophils (Bld) [#/Vol] 3.8 10*3/uL 2.0-7.7 [facility] Basophils/100 WBC (Bld) 0.6 % 0-1 [facility] Basophils/100 WBC (Bld) 47.6 % 47-70 [facility] Basophils/100 WBC (Bld) 0.9 % 0-5 [facility] Bilirubin [Mass/Vol] 0.20 mg/dL 0.20-1.[address] [facility] Comment on above: For patients on eltr ombopag therapy, use of Dimension [place] TBIL is not recommended. Chloride [Moles/Vol] 107 mmol/L 98-[address] [facility] Eosinophils/100 WBC (Bld) 0.9 % 0-5 [facility] Glucose [Mass/Vol] 104 mg/dL 74-106 [facility] Comment on above: Fasting Glucose resu lt from 100 to 125 mg/dL suggests IMPAIRED HOMEOSTASIS per A.D.A. criteria. Neutrophils (Bld) [#/Vol] 3.8 10*3/uL 2.0-7.7 [facility] Neutrophils/100 WBC (Bld) 47.6 % 47-70 [facility] Potassium [Moles/Vol] 3.7 mmol/L 3.5-5.1 [facility] Protein [Mass/Vol] 7.4 g/dL 6.4-8.2 [facility] Sodium [Moles/Vol] 138 mmol/L 136-145 [facility] WBC (Bld) [#/Vol] 7.9 10*3/uL 4.4-11.0 [facility] Beta hCG serum qualOrdered B y: ED PROVIDER on 10-18-2022 Beta HCG ( test) Ql Negative [facility] Bilirubin Test strip Ql (U)O rdered By: ED PROVIDER on 10-18-2022 Bilirubin Ql (U) Negative Negative [facility] Blood erythrocytes count (nu mber/volume)Ordered By: ED PROVIDER on 10-18-2022 RBC (Bld) [#/Vol] 4.20 10*6/uL 4.2-5.4 [facility] Blood hemoglobin measurement (mass/volume)Ordered By: ED PROVIDER on 10-18-2022 Hemoglobin (Bld) [Mass/Vol] 13.0 g/dL 12.0-15.0 [facility] Blood lymphocytes/100 leukoc ytesOrdered By: ED PROVIDER on 10-18-2022 Lymphocytes/100 WBC (Bld) 42.5 % 19-41 [facility] Blood monocytes/100 leukocyt esOrdered By: ED PROVIDER on 10-18-2022 Monocytes/100 WBC (Bld) 8.0 % 0-10 [facility] Blood platelet mean volumeOr dered By: ED PROVIDER on 10-18-2022 Platelet mean volume (Bld) [Entitic vol] 9.2 fL 6.2-12.0 [facility] Determination of erythrocyte mean corpuscular volume (MCV)Ordered By: ED PROVIDER on 10-18-2022 MCV (RBC) [Entitic vol] 92.1 fL 81-99 [facility] Hematocrit Auto (Bld) [Volum e fraction]Ordered By: ED PROVIDER on 10-18-2022 Hematocrit (Bld) [Volume fraction] 38.7 % 37-47 [facility] Ketones Test strip Ql (U)Ord ered By: ED PROVIDER on 10-18-2022 Ketones Ql (U) Negative Negative [facility] Laboratory - Chemistry and C hemistry - challengeOrdered By: Dr. Kaiser on 10-18-2022 Lipase [Catalytic activity/Vol] 24 U/L 13-75 [facility] Comment on above: Please note:LIPASE r evised reference range effective 22. New Lipase methodology. Expected to produce lower values than the previous assay method. NEW Reference Range: 13 - 75 U/L Laboratory - Chemistry and C hemistry - challengeOrdered By: ED PROVIDER on 10-18-2022 ALP [Catalytic activity/Vol] 108 U/L 45-117 [facility] ALT [Catalytic activity/Vol] 42 U/L 13-56 [facility] CO2 [Moles/Vol] 26.0 mmol/L 21.0-32.0 [facility] Globulin (S) [Mass/Vol] 3.8 g/dL 2.2-4.2 [facility] Urea nitrogen/Creatinine [Mass ratio] 11.9 mg/mg 10-20 [facility] Laboratory - Hematology and Cell countsOrdered By: ED PROVIDER on 10-18-2022 Erythrocyte distribution width (RBC) [Entitic vol] 44.1 fL 35.1-43.9 [facility] Erythrocyte distribution width (RBC) [Ratio] 13.2 % 11.6-14.6 [facility] Immature granulocytes/100 WBC (Bld) 0.400 % 0.0-0.9 [facility] Comment on above: IG% - Immature Granu locytes (promyelocytes, myelocytes and metamyelocytes) > 1% indicates that a LEFT SHIFT is Present. MCH (RBC) [Entitic mass] 31.0 pg 27.0-32.0 [facility] Nucleated RBC/100 WBC (Bld) [Ratio] 0 % 0-5 [facility] MCHC Auto (RBC) [Mass/Vol]Or dered By: ED PROVIDER on 10-18-2022 MCHC (RBC) [Mass/Vol] 33.6 g/dL 32-36 [facility] Mucus LM Ql (Urine sed)Order ed By: ED PROVIDER on 10-18-2022 Mucus Ql (Urine sed) 0 SEEN /hpf [facility] Nitrite Test strip Ql (U)Ord ered By: ED PROVIDER on 10-18-2022 Nitrite Ql (U) Negative Negative [facility] No Panel InformationOrdered By: Dr. Kaiser on 10-18-2022 24 U/L 13-75 [facility] No Panel InformationOrdered By: ED PROVIDER on 10-18-2022 Estimated Creatinine Clearance Calc 62.47 ml/min [facility] Estimated GFR (MDRD) Amer 79 mL/min >60 [facility] Comment on above: GFR Calc Estimated GFR (MDRD) Non-Af Amer 65 mL/min >60 [facility] Comment on above: Non- GFR Calc 31.0 pg 27.0-32.0 [facility] 13.2 % 11.6-14.6 [facility] 44.1 fl 35.1-43.9 [facility] 0.400 % 0.0-0.9 [facility] 0 % 0-5 [facility] 65 mL/min >60 [facility] 79 mL/min >60 [facility] 62.47 ml/min [facility] 11.9 RATIO 10-20 [facility] 3.8 g/dL 2.2-4.2 [facility] 108 U/L 45-117 [facility] 42 U/L 13-56 [facility] 26.0 mmol/L 21.0-32.0 [facility] Platelets bldOrdered By: ED PROVIDER on 10-18-2022 Platelets (Bld) [#/Vol] 391 10*3/uL 150-450 [facility] Protein Test strip Ql (U)Ord ered By: ED PROVIDER on 10-18-2022 Protein Ql (U) Negative Negative [facility] Serum or plasma albumin angie urement (mass/volume)Ordered By: ED PROVIDER on 10-18-2022 Albumin [Mass/Vol] 3.6 g/dL 3.2-5.0 [facility] Serum or plasma albumin/glob ulin mass ratioOrdered By: ED PROVIDER on 10-18-2022 Albumin/Globulin [Mass ratio] 0.9 {ratio} 0.9-2.4 [facility] Serum or plasma calcium angie urement (mass/volume)Ordered By: ED PROVIDER on 10-18-2022 Calcium [Mass/Vol] 9.3 mg/dL 8.5-10.1 [facility] Serum or plasma creatinine m easurement (mass/volume)Ordered By: ED PROVIDER on 10-18-2022 Creatinine [Mass/Vol] 1.01 mg/dL 0.55-1.02 [facility] Comment on above: The validity of the calculated GFR & GFRAA in patients over 70 years has not been determined. Clinical correlation is essential. Serum or plasma urea nitroge n measurement (mass/volume)Ordered By: ED PROVIDER on 10-18-2022 Urea nitrogen [Mass/Vol] 12 mg/dL 7-18 [facility] Squamous epithelial cells de tection in urine sediment by light microscopyOrdered By: ED PROVIDER on 10-18-2022 Epithelial cells.squamous LM Ql (Urine sed) 0 SEEN /hpf 5-10 [facility] Thin prep Papanicolaou smear with manual screeningOrdered By: ED PROVIDER on 10-18-2022 Thin prep Papanicolaou smear with manual screening 52 U/L 15-37 [facility] Thin prep Papanicolaou smear with manual screening 5 5-15 [facility] Urine blood detectionOrdered By: ED PROVIDER on 10-18-2022 RBC Ql (U) Negative Negative [facility] RBC Ql (U) 0 SEEN /hpf 0-5 [facility] Urine clarityOrdered By: ED PROVIDER on 10-18-2022 Clarity (U) Sl. Cloudy Clear [facility] Urine color determinationOrd ered By: ED PROVIDER on 10-18-2022 Color (U) Yellow Yellow [facility] Urine glucose detectionOrder ed By: ED PROVIDER on 10-18-2022 Glucose Ql (U) Normal mg/dl Normal [facility] Urine leukocyte esterase det ection by dipstickOrdered By: ED PROVIDER on 10-18-2022 Leukocyte esterase Test strip Ql (U) 25 /ul Negative [facility] Urine pHOrdered By: ED PROVI MABEL on 10-18-2022 pH (U) 6.0 [pH] 5.0 - 8.0 [facility] Urine sediment bacteria coun t by microscopy (number/high power field)Ordered By: ED PROVIDER on 10-18-2022 Bacteria LM.HPF (Urine sed) [#/Area] 0 /[HPF] None Seen [facility] Urine specific gravity measu rementOrdered By: ED PROVIDER on 10-18-2022 Specific gravity (U) [Rel density] 1.015 1.002-1.030 [facility] Urobilinogen Auto test strip Ql (U)Ordered By: ED PROVIDER on 10-18-2022 Urobilinogen Ql (U) Normal mg/dl Normal [facility] Absolute lymphocyte countOrd ered By: Kenn Ojeda on 09-27-2022 Lymphocytes Auto (Unsp spec) [#/Vol] 2.50 10*3/uL 0.83-4.51 [facility] Basophil percentageOrdered B y: Kenn Friend on 09-27-2022 Basophil percentage 109 mg/dL 74-106 [facility] Basophil percentage 7.6 g/dL 6.4-8.2 [facility] Basophil percentage 0.40 mg/dL 0.20-1.00 [facility] Basophil percentage 136 mmol/L 136-145 [facility] Basophil percentage 3.8 mmol/L 3.5-5.1 [facility] Basophil percentage 106 mmol/L 98-107 [facility] Basophils (Bld) [#/Vol] 6.4 10*3/uL 4.4-11.0 [facility] Basophils (Bld) [#/Vol] 3.2 10*3/uL 2.0-7.7 [facility] Basophils/100 WBC (Bld) 0.6 % 0-1 [facility] Basophils/100 WBC (Bld) 49.9 % 47-70 [facility] Basophils/100 WBC (Bld) 2.2 % 0-5 [facility] Bilirubin [Mass/Vol] 0.40 mg/dL 0.20-1.[address] [facility] Comment on above: For patients on eltr ombopag therapy, use of Dimension [place] TBIL is not recommended. Chloride [Moles/Vol] 106 mmol/L 98-[address] [facility] Eosinophils/100 WBC (Bld) 2.2 % 0-5 [facility] Glucose [Mass/Vol] 109 mg/dL 74-106 [facility] Comment on above: Fasting Glucose resu lt from 100 to 125 mg/dL suggests IMPAIRED HOMEOSTASIS per A.D.A. criteria. Neutrophils (Bld) [#/Vol] 3.2 10*3/uL 2.0-7.7 [facility] Neutrophils/100 WBC (Bld) 49.9 % 47-70 [facility] Potassium [Moles/Vol] 3.8 mmol/L 3.5-5.1 [facility] Protein [Mass/Vol] 7.6 g/dL 6.4-8.2 [facility] Sodium [Moles/Vol] 136 mmol/L 136-145 [facility] WBC (Bld) [#/Vol] 6.4 10*3/uL 4.4-11.0 [facility] Blood erythrocytes count (nu mber/volume)Ordered By: Kenn Ojeda on 09-27-2022 RBC (Bld) [#/Vol] 4.28 10*6/uL 4.2-5.4 [facility] Blood hemoglobin measurement (mass/volume)Ordered By: Kenn Ojeda on 09-27-2022 Hemoglobin (Bld) [Mass/Vol] 13.5 g/dL 12.0-15.0 [facility] Blood lymphocytes/100 leukoc ytesOrdered By: Kenn Ojeda on 09-27-2022 Lymphocytes/100 WBC (Bld) 38.9 % 19-41 [facility] Blood monocytes/100 leukocyt esOrdered By: Kenn Ojeda on 09-27-2022 Monocytes/100 WBC (Bld) 8.1 % 0-10 [facility] Blood platelet mean volumeOr dered By: Kenn Ojeda on 09-27-2022 Platelet mean volume (Bld) [Entitic vol] 9.3 fL 6.2-12.0 [facility] Determination of erythrocyte mean corpuscular volume (MCV)Ordered By: Kenn Ojeda on 09-27-2022 MCV (RBC) [Entitic vol] 93.7 fL 81-99 [facility] Erythrocyte sedimentation ra teOrdered By: Kenn Ojeda on 09-27-2022 ESR (Bld) [Velocity] 21 mm/h 0-[address] [facility] Hematocrit Auto (Bld) [Volum e fraction]Ordered By: Kenn jOeda on 09-27-2022 Hematocrit (Bld) [Volume fraction] 40.1 % 37-47 [facility] Laboratory - Chemistry and C hemistry - challengeOrdered By: Kenn Ojeda on 09-27-2022 ALP [Catalytic activity/Vol] 119 U/L 45-117 [facility] ALT [Catalytic activity/Vol] 34 U/L 13-56 [facility] CO2 [Moles/Vol] 23.0 mmol/L 21.0-32.0 [facility] Globulin (S) [Mass/Vol] 3.9 g/dL 2.2-4.2 [facility] Urea nitrogen/Creatinine [Mass ratio] 8.4 mg/mg 10-20 [facility] Laboratory - Hematology and Cell countsOrdered By: Kenn Ojeda on 09-27-2022 Erythrocyte distribution width (RBC) [Entitic vol] 45.4 fL 35.1-43.9 [facility] Erythrocyte distribution width (RBC) [Ratio] 13.3 % 11.6-14.6 [facility] Immature granulocytes/100 WBC (Bld) 0.300 % 0.0-0.9 [facility] Comment on above: IG% - Immature Granu locytes (promyelocytes, myelocytes and metamyelocytes) > 1% indicates that a LEFT SHIFT is Present. MCH (RBC) [Entitic mass] 31.5 pg 27.0-32.0 [facility] Nucleated RBC/100 WBC (Bld) [Ratio] 0 % 0-5 [facility] MCHC Auto (RBC) [Mass/Vol]Or dered By: Kenn Ojeda on 09-27-2022 MCHC (RBC) [Mass/Vol] 33.7 g/dL 32-36 [facility] No Panel InformationOrdered By: Kenn Ojeda on 09-27-2022 Estimated GFR (MDRD) Amer 84 mL/min >60 [facility] Comment on above: GFR Calc Estimated GFR (MDRD) Non-Af Amer 70 mL/min >60 [facility] Comment on above: Non- GFR Calc 31.5 pg 27.0-32.0 [facility] 13.3 % 11.6-14.6 [facility] 45.4 fl 35.1-43.9 [facility] 0.300 % 0.0-0.9 [facility] 0 % 0-5 [facility] 70 mL/min >60 [facility] 84 mL/min >60 [facility] 8.4 RATIO 10-20 [facility] 3.9 g/dL 2.2-4.2 [facility] 119 U/L 45-117 [facility] 34 U/L 13-56 [facility] 23.0 mmol/L 21.0-32.0 [facility] See comment [facility] Platelets bldOrdered By: Woo Ojeda on 09-27-2022 Platelets (Bld) [#/Vol] 394 10*3/uL 150-450 [facility] Serum or plasma C reactive p rotein measurement (mass/volume)Ordered By: Kenn Ojeda on 09-27-2022 CRP [Mass/Vol] 7.77 mg/L 0.0-3.0 [facility] Comment on above: C-Reactive Protein ( CRP) provides useful information for thediagnosis, therapy and monitoring of inflammatory processesand associated diseases. For the evaluation of Relative Riskfor Cardiovascular Disease, a High Sensitivity CRP (HSCRP)should be ordered. Serum or plasma albumin angie urement (mass/volume)Ordered By: Kenn Ojeda on 09-27-2022 Albumin [Mass/Vol] 3.7 g/dL 3.2-5.0 [facility] Serum or plasma albumin/glob ulin mass ratioOrdered By: Kenn Ojeda on 09-27-2022 Albumin/Globulin [Mass ratio] 0.9 {ratio} 0.9-2.4 [facility] Serum or plasma calcium angie urement (mass/volume)Ordered By: Kenn Ojeda on 09-27-2022 Calcium [Mass/Vol] 9.0 mg/dL 8.5-10.1 [facility] Serum or plasma creatinine m easurement (mass/volume)Ordered By: Kenn Ojeda on 09-27-2022 Creatinine [Mass/Vol] 0.95 mg/dL 0.55-1.02 [facility] Comment on above: The validity of the calculated GFR & GFRAA in patients over 70 years has not been determined. Clinical correlation is essential. Serum or plasma urea nitroge n measurement (mass/volume)Ordered By: Kenn Ojeda on 09-27-2022 Urea nitrogen [Mass/Vol] 8 mg/dL 7-18 [facility] Thin prep Papanicolaou smear with manual screeningOrdered By: Kenn Ojeda on 09-27-2022 Thin prep Papanicolaou smear with manual screening 12 U/L 15-37 [facility] Thin prep Papanicolaou smear with manual screening 7 5-15 [facility] Absolute lymphocyte countOrd ered By: Lul Lee on 09-10-2022 Lymphocytes Auto (Unsp spec) [#/Vol] 1.35 10*3/uL 0.83-4.51 [facility] Basophil percentageOrdered B y: Lul Lee on 09-10-2022 Basophil percentage 117 mg/dL 74-106 [facility] Basophil percentage 7.8 g/dL 6.4-8.2 [facility] Basophil percentage 0.30 mg/dL 0.20-1.00 [facility] Basophil percentage 139 mmol/L 136-145 [facility] Basophil percentage 3.7 mmol/L 3.5-5.1 [facility] Basophil percentage 101 mmol/L 98-107 [facility] Basophils (Bld) [#/Vol] 9.9 10*3/uL 4.4-11.0 [facility] Basophils (Bld) [#/Vol] 8.1 10*3/uL 2.0-7.7 [facility] Basophils/100 WBC (Bld) 0.2 % 0-1 [facility] Basophils/100 WBC (Bld) 81.5 % 47-70 [facility] Basophils/100 WBC (Bld) 0.1 % 0-5 [facility] Bilirubin [Mass/Vol] 0.30 mg/dL 0.20-1.[address] [facility] Comment on above: For patients on eltr ombopag therapy, use of Dimension [place] TBIL is not recommended. Chloride [Moles/Vol] 101 mmol/L 98-[address] [facility] Eosinophils/100 WBC (Bld) 0.1 % 0-5 [facility] Glucose [Mass/Vol] 117 mg/dL 74-106 [facility] Comment on above: Fasting Glucose resu lt from 100 to 125 mg/dL suggests IMPAIRED HOMEOSTASIS per A.D.A. criteria. Neutrophils (Bld) [#/Vol] 8.1 10*3/uL 2.0-7.7 [facility] Neutrophils/100 WBC (Bld) 81.5 % 47-70 [facility] Potassium [Moles/Vol] 3.7 mmol/L 3.5-5.1 [facility] Protein [Mass/Vol] 7.8 g/dL 6.4-8.2 [facility] Sodium [Moles/Vol] 139 mmol/L 136-145 [facility] WBC (Bld) [#/Vol] 9.9 10*3/uL 4.4-11.0 [facility] Beta hCG serum qualOrdered B y: Lul Lee on 09-10-2022 Beta HCG ( test) Ql Negative [facility] Blood erythrocytes count (nu mber/volume)Ordered By: Lul Lee on 09-10-2022 RBC (Bld) [#/Vol] 4.50 10*6/uL 4.2-5.4 [facility] Blood hemoglobin measurement (mass/volume)Ordered By: Lul Lee on 09-10-2022 Hemoglobin (Bld) [Mass/Vol] 14.2 g/dL 12.0-15.0 [facility] Blood lymphocytes/100 leukoc ytesOrdered By: Lul Lee on 09-10-2022 Lymphocytes/100 WBC (Bld) 13.6 % 19-41 [facility] Blood monocytes/100 leukocyt esOrdered By: Llu Lee on 09-10-2022 Monocytes/100 WBC (Bld) 3.8 % 0-10 [facility] Blood platelet mean volumeOr dered By: Lul Lee on 09-10-2022 Platelet mean volume (Bld) [Entitic vol] 9.7 fL 6.2-12.0 [facility] Determination of erythrocyte mean corpuscular volume (MCV)Ordered By: Lul Lee on 09-10-2022 MCV (RBC) [Entitic vol] 93.6 fL 81-99 [facility] Direct bilirubinOrdered By: Lul Lee on 09-10-2022 Bilirubin.direct [Mass/Vol] 0.16 mg/dL 0.00-0.30 [facility] Hematocrit Auto (Bld) [Volum e fraction]Ordered By: Lul Lee on 09-10-2022 Hematocrit (Bld) [Volume fraction] 42.1 % 37-47 [facility] Laboratory - Chemistry and C hemistry - challengeOrdered By: Lul Lee on 09-10-2022 ALP [Catalytic activity/Vol] 159 U/L 45-117 [facility] ALT [Catalytic activity/Vol] 224 U/L 13-56 [facility] CO2 [Moles/Vol] 30.0 mmol/L 21.0-32.0 [facility] Globulin (S) [Mass/Vol] 3.8 g/dL 2.2-4.2 [facility] Lipase [Catalytic activity/Vol] 29 U/L 13-75 [facility] Comment on above: Please note:LIPASE r evised reference range effective 22. New Lipase methodology. Expected to produce lower values than the previous assay method. NEW Reference Range: 13 - 75 U/L Urea nitrogen/Creatinine [Mass ratio] 12.0 mg/mg 10-20 [facility] Laboratory - Hematology and Cell countsOrdered By: Lul Lee on 09-10-2022 Erythrocyte distribution width (RBC) [Entitic vol] 43.0 fL 35.1-43.9 [facility] Erythrocyte distribution width (RBC) [Ratio] 12.6 % 11.6-14.6 [facility] Immature granulocytes/100 WBC (Bld) 0.800 % 0.0-0.9 [facility] Comment on above: IG% - Immature Granu locytes (promyelocytes, myelocytes and metamyelocytes) > 1% indicates that a LEFT SHIFT is Present. MCH (RBC) [Entitic mass] 31.6 pg 27.0-32.0 [facility] Nucleated RBC/100 WBC (Bld) [Ratio] 0 % 0-5 [facility] MCHC Auto (RBC) [Mass/Vol]Or dered By: Lul Lee on 09-10-2022 MCHC (RBC) [Mass/Vol] 33.7 g/dL 32-36 [facility] No Panel InformationOrdered By: Lul Lee on 09-10-2022 Estimated Creatinine Clearance Calc 58.42 ml/min [facility] Estimated GFR (MDRD) Amer 73 mL/min >60 [facility] Comment on above: GFR Calc Estimated GFR (MDRD) Non-Af Amer 60 mL/min >60 [facility] Comment on above: Non- GFR Calc Troponin I High Sensitivity 5 pg/mL 3.0-54.0 [facility] Comment on above: Please Note: New Sylvia t Units and Gender Specific Reference Ranges. For more information see Policy Stat Procedure [place] High Sensitivity Troponin (TNIH) and attachments. 31.6 pg 27.0-32.0 [facility] 12.6 % 11.6-14.6 [facility] 43.0 fl 35.1-43.9 [facility] 0.800 % 0.0-0.9 [facility] 0 % 0-5 [facility] 60 mL/min >60 [facility] 73 mL/min >60 [facility] 58.42 ml/min [facility] 12.0 RATIO 10-20 [facility] 3.8 g/dL 2.2-4.2 [facility] 29 U/L 13-75 [facility] 5 pg/mL 3.0-54.0 [facility] 159 U/L 45-117 [facility] 224 U/L 13-56 [facility] 30.0 mmol/L 21.0-32.0 [facility] Platelets bldOrdered By: Carter Lee on 09-10-2022 Platelets (Bld) [#/Vol] 449 10*3/uL 150-450 [facility] Serum or plasma albumin angie urement (mass/volume)Ordered By: Lul Lee on 09-10-2022 Albumin [Mass/Vol] 4.0 g/dL 3.2-5.0 [facility] Serum or plasma calcium angie urement (mass/volume)Ordered By: Lul Lee on 09-10-2022 Calcium [Mass/Vol] 9.1 mg/dL 8.5-10.1 [facility] Serum or plasma creatinine m easurement (mass/volume)Ordered By: Lul Lee on 09-10-2022 Creatinine [Mass/Vol] 1.08 mg/dL 0.55-1.02 [facility] Comment on above: The validity of the calculated GFR & GFRAA in patients over 70 years has not been determined. Clinical correlation is essential. Serum or plasma urea nitroge n measurement (mass/volume)Ordered By: Lul Lee on 09-10-2022 Urea nitrogen [Mass/Vol] 13 mg/dL 7-18 [facility] Thin prep Papanicolaou smear with manual screeningOrdered By: Lul Lee on 09-10-2022 Thin prep Papanicolaou smear with manual screening 358 U/L 15-37 [facility] Thin prep Papanicolaou smear with manual screening 8 5-15 [facility] Absolute lymphocyte countOrd ered By: Dr. Perez on 09-02-2022 Lymphocytes Auto (Unsp spec) [#/Vol] 2.11 10*3/uL 0.83-4.51 [facility] Basophil percentageOrdered B y: Dr. Perez on 09-02-2022 Basophil percentage 92 mg/dL 74-106 [facility] Basophil percentage 7.4 g/dL 6.4-8.2 [facility] Basophil percentage 0.30 mg/dL 0.20-1.00 [facility] Basophil percentage 139 mmol/L 136-145 [facility] Basophil percentage 3.6 mmol/L 3.5-5.1 [facility] Basophil percentage 110 mmol/L 98-107 [facility] Basophils (Bld) [#/Vol] 5.1 10*3/uL 4.4-11.0 [facility] Basophils (Bld) [#/Vol] 2.3 10*3/uL 2.0-7.7 [facility] Basophils/100 WBC (Bld) 0.8 % 0-1 [facility] Basophils/100 WBC (Bld) 46.2 % 47-70 [facility] Basophils/100 WBC (Bld) 2.0 % 0-5 [facility] Bilirubin [Mass/Vol] 0.30 mg/dL 0.20-1.[address] [facility] Comment on above: For patients on eltr ombopag therapy, use of Dimension [place] TBIL is not recommended. Chloride [Moles/Vol] 110 mmol/L 98-[address] [facility] Eosinophils/100 WBC (Bld) 2.0 % 0-5 [facility] Glucose [Mass/Vol] 92 mg/dL 74-106 [facility] Neutrophils (Bld) [#/Vol] 2.3 10*3/uL 2.0-7.7 [facility] Neutrophils/100 WBC (Bld) 46.2 % 47-70 [facility] Potassium [Moles/Vol] 3.6 mmol/L 3.5-5.1 [facility] Protein [Mass/Vol] 7.4 g/dL 6.4-8.2 [facility] Sodium [Moles/Vol] 139 mmol/L 136-145 [facility] WBC (Bld) [#/Vol] 5.1 10*3/uL 4.4-11.0 [facility] Blood erythrocytes count (nu mber/volume)Ordered By: Dr. Perez on 09-02-2022 RBC (Bld) [#/Vol] 4.30 10*6/uL 4.2-5.4 [facility] Blood hemoglobin measurement (mass/volume)Ordered By: Dr. Perez on 09-02-2022 Hemoglobin (Bld) [Mass/Vol] 13.5 g/dL 12.0-15.0 [facility] Blood lymphocytes/100 leukoc ytesOrdered By: Dr. Perez on 09-02-2022 Lymphocytes/100 WBC (Bld) 41.7 % 19-41 [facility] Blood monocytes/100 leukocyt esOrdered By: Dr. Perez on 09-02-2022 Monocytes/100 WBC (Bld) 9.1 % 0-10 [facility] Blood platelet mean volumeOr dered By: Dr. Perez on 09-02-2022 Platelet mean volume (Bld) [Entitic vol] 8.9 fL 6.2-12.0 [facility] Determination of erythrocyte mean corpuscular volume (MCV)Ordered By: Dr. Perez on 09-02-2022 MCV (RBC) [Entitic vol] 90.9 fL 81-99 [facility] Direct bilirubinOrdered By: Dr. Perez on 09-02-2022 Bilirubin.direct [Mass/Vol] 0.08 mg/dL 0.00-0.30 [facility] Hematocrit Auto (Bld) [Volum e fraction]Ordered By: Dr. Perez on 09-02-2022 Hematocrit (Bld) [Volume fraction] 39.1 % 37-47 [facility] Laboratory - Chemistry and C hemistry - challengeOrdered By: Dr. Perez on 09-02-2022 HCG ( test) Ql (U) Negative [facility] Comment on above: Very dilute urine sp ecimens, as indicated by a low specificgravity, may not contain farm loan representative levels of hCG. If is still suspected, a first morning urinespecimen should be collected 48 hours later and tested. ALP [Catalytic activity/Vol] 95 U/L 45-117 [facility] ALT [Catalytic activity/Vol] 24 U/L 13-56 [facility] CO2 [Moles/Vol] 27.0 mmol/L 21.0-32.0 [facility] Globulin (S) [Mass/Vol] 3.8 g/dL 2.2-4.2 [facility] Lipase [Catalytic activity/Vol] 18 U/L 13-75 [facility] Comment on above: Please note:LIPASE r evised reference range effective 22. New Lipase methodology. Expected to produce lower values than the previous assay method. NEW Reference Range: 13 - 75 U/L Urea nitrogen/Creatinine [Mass ratio] 7.5 mg/mg 10-20 [facility] Laboratory - Hematology and Cell countsOrdered By: Dr. Perez on 09-02-2022 Erythrocyte distribution width (RBC) [Entitic vol] 40.4 fL 35.1-43.9 [facility] Erythrocyte distribution width (RBC) [Ratio] 12.2 % 11.6-14.6 [facility] Immature granulocytes/100 WBC (Bld) 0.200 % 0.0-0.9 [facility] Comment on above: IG% - Immature Granu locytes (promyelocytes, myelocytes and metamyelocytes) > 1% indicates that a LEFT SHIFT is Present. MCH (RBC) [Entitic mass] 31.4 pg 27.0-32.0 [facility] Nucleated RBC/100 WBC (Bld) [Ratio] 0 % 0-5 [facility] MCHC Auto (RBC) [Mass/Vol]Or dered By: Dr. Perez on 09-02-2022 MCHC (RBC) [Mass/Vol] 34.5 g/dL 32-36 [facility] No Panel InformationOrdered By: Dr. Perez on 09-02-2022 Negative [facility] Estimated Creatinine Clearance Calc 67.13 ml/min [facility] Estimated GFR (MDRD) Amer 86 mL/min >60 [facility] Comment on above: GFR Calc Estimated GFR (MDRD) Non-Af Amer 71 mL/min >60 [facility] Comment on above: Non- GFR Calc 31.4 pg 27.0-32.0 [facility] 12.2 % 11.6-14.6 [facility] 40.4 fl 35.1-43.9 [facility] 0.200 % 0.0-0.9 [facility] 0 % 0-5 [facility] 71 mL/min >60 [facility] 86 mL/min >60 [facility] 67.13 ml/min [facility] 7.5 RATIO 10-20 [facility] 3.8 g/dL 2.2-4.2 [facility] 18 U/L 13-75 [facility] 95 U/L 45-117 [facility] 24 U/L 13-56 [facility] 27.0 mmol/L 21.0-32.0 [facility] Platelets bldOrdered By: Dr. Perez on 09-02-2022 Platelets (Bld) [#/Vol] 420 10*3/uL 150-450 [facility] Serum or plasma albumin angie urement (mass/volume)Ordered By: Dr. Perez on 09-02-2022 Albumin [Mass/Vol] 3.6 g/dL 3.2-5.0 [facility] Serum or plasma calcium angie urement (mass/volume)Ordered By: Dr. ePrez on 09-02-2022 Calcium [Mass/Vol] 9.2 mg/dL 8.5-10.1 [facility] Serum or plasma creatinine m easurement (mass/volume)Ordered By: Dr. Perez on 09-02-2022 Creatinine [Mass/Vol] 0.94 mg/dL 0.55-1.02 [facility] Comment on above: The validity of the calculated GFR & GFRAA in patients over 70 years has not been determined. Clinical correlation is essential. Serum or plasma urea nitroge n measurement (mass/volume)Ordered By: Dr. Perez on 09-02-2022 Urea nitrogen [Mass/Vol] 7 mg/dL 7-18 [facility] Thin prep Papanicolaou smear with manual screeningOrdered By: Dr. Perez on 09-02-2022 Thin prep Papanicolaou smear with manual screening 15 U/L 15-37 [facility] Thin prep Papanicolaou smear with manual screening 2 5-15 [facility] Absolute lymphocyte countOrd ered By: Dr. Mason on 08-12-2022 Lymphocytes Auto (Unsp spec) [#/Vol] 3.16 10*3/uL 0.83-4.51 [facility] Basophil percentageOrdered B y: Dr. Mason on 08-12-2022 Basophil percentage 0.4 mmol/L 0.4-2.0 [facility] Lactate [Moles/Vol] 0.4 mmol/L 0.4-2.0 [facility] Basophil percentage 79 mg/dL 74-106 [facility] Basophil percentage 6.9 g/dL 6.4-8.2 [facility] Basophil percentage 0.30 mg/dL 0.20-1.00 [facility] Basophil percentage 138 mmol/L 136-145 [facility] Basophil percentage 3.3 mmol/L 3.5-5.1 [facility] Basophil percentage 105 mmol/L 98-107 [facility] Basophils (Bld) [#/Vol] 6.6 10*3/uL 4.4-11.0 [facility] Basophils (Bld) [#/Vol] 2.8 10*3/uL 2.0-7.7 [facility] Basophils/100 WBC (Bld) 0.8 % 0-1 [facility] Basophils/100 WBC (Bld) 42.2 % 47-70 [facility] Basophils/100 WBC (Bld) 3.2 % 0-5 [facility] Bilirubin [Mass/Vol] 0.30 mg/dL 0.20-1.[address] [facility] Comment on above: For patients on eltr ombopag therapy, use of Dimension [place] TBIL is not recommended. Chloride [Moles/Vol] 105 mmol/L 98-[address] [facility] Eosinophils/100 WBC (Bld) 3.2 % 0-5 [facility] Glucose [Mass/Vol] 79 mg/dL 74-106 [facility] Neutrophils (Bld) [#/Vol] 2.8 10*3/uL 2.0-7.7 [facility] Neutrophils/100 WBC (Bld) 42.2 % 47-70 [facility] Potassium [Moles/Vol] 3.3 mmol/L 3.5-5.1 [facility] Comment on above: Slight Hemolysis, Re sult may be falsely increased. Protein [Mass/Vol] 6.9 g/dL 6.4-8.2 [facility] Sodium [Moles/Vol] 138 mmol/L 136-145 [facility] WBC (Bld) [#/Vol] 6.6 10*3/uL 4.4-11.0 [facility] Blood erythrocytes count (nu mber/volume)Ordered By: Dr. Mason on 08-12-2022 RBC (Bld) [#/Vol] 4.06 10*6/uL 4.2-5.4 [facility] Blood hemoglobin measurement (mass/volume)Ordered By: Dr. Mason on 08-12-2022 Hemoglobin (Bld) [Mass/Vol] 12.6 g/dL 12.0-15.0 [facility] Blood lymphocytes/100 leukoc ytesOrdered By: Dr. Mason on 08-12-2022 Lymphocytes/100 WBC (Bld) 47.6 % 19-41 [facility] Blood monocytes/100 leukocyt esOrdered By: Dr. Mason on 08-12-2022 Monocytes/100 WBC (Bld) 5.7 % 0-10 [facility] Blood platelet mean volumeOr dered By: Dr. Mason on 08-12-2022 Platelet mean volume (Bld) [Entitic vol] 10.5 fL 6.2-12.0 [facility] Determination of erythrocyte mean corpuscular volume (MCV)Ordered By: Dr. Mason on 08-12-2022 MCV (RBC) [Entitic vol] 92.4 fL 81-99 [facility] Direct bilirubinOrdered By: Dr. Mason on 08-12-2022 Bilirubin.direct [Mass/Vol] 0.13 mg/dL 0.00-0.30 [facility] Hematocrit Auto (Bld) [Volum e fraction]Ordered By: Dr. Mason on 08-12-2022 Hematocrit (Bld) [Volume fraction] 37.5 % 37-47 [facility] Laboratory - Chemistry and C hemistry - challengeOrdered By: Dr. Mason on 08-12-2022 ALP [Catalytic activity/Vol] 215 U/L 45-117 [facility] ALT [Catalytic activity/Vol] 653 U/L 13-56 [facility] CO2 [Moles/Vol] 26.0 mmol/L 21.0-32.0 [facility] Globulin (S) [Mass/Vol] 3.5 g/dL 2.2-4.2 [facility] Lipase [Catalytic activity/Vol] 130 U/L 73-393 [facility] Urea nitrogen/Creatinine [Mass ratio] 6.3 mg/mg 10-20 [facility] Laboratory - Hematology and Cell countsOrdered By: Dr. Mason on 08-12-2022 Erythrocyte distribution width (RBC) [Entitic vol] 43.7 fL 35.1-43.9 [facility] Erythrocyte distribution width (RBC) [Ratio] 12.9 % 11.6-14.6 [facility] Immature granulocytes/100 WBC (Bld) 0.500 % 0.0-0.9 [facility] Comment on above: IG% - Immature Granu locytes (promyelocytes, myelocytes and metamyelocytes) > 1% indicates that a LEFT SHIFT is Present. MCH (RBC) [Entitic mass] 31.0 pg 27.0-32.0 [facility] Nucleated RBC/100 WBC (Bld) [Ratio] 0 % 0-5 [facility] MCHC Auto (RBC) [Mass/Vol]Or dered By: Dr. Mason on 08-12-2022 MCHC (RBC) [Mass/Vol] 33.6 g/dL 32-36 [facility] No Panel InformationOrdered By: Dr. Mason on 08-12-2022 Estimated Creatinine Clearance Calc 65.73 ml/min [facility] Estimated GFR (MDRD) Amer 84 mL/min >60 [facility] Comment on above: GFR Calc Estimated GFR (MDRD) Non-Af Amer 69 mL/min >60 [facility] Comment on above: Non- GFR Calc 31.0 pg 27.0-32.0 [facility] 12.9 % 11.6-14.6 [facility] 43.7 fl 35.1-43.9 [facility] 0.500 % 0.0-0.9 [facility] 0 % 0-5 [facility] 69 mL/min >60 [facility] 84 mL/min >60 [facility] 65.73 ml/min [facility] 6.3 RATIO 10-20 [facility] 3.5 g/dL 2.2-4.2 [facility] 130 U/L 73-393 [facility] 215 U/L 45-117 [facility] 653 U/L 13-56 [facility] 26.0 mmol/L 21.0-32.0 [facility] Platelets bldOrdered By: Dr. Mason on 08-12-2022 Platelets (Bld) [#/Vol] 360 10*3/uL 150-450 [facility] Serum or plasma albumin angie urement (mass/volume)Ordered By: Dr. Mason on 08-12-2022 Albumin [Mass/Vol] 3.4 g/dL 3.2-5.0 [facility] Serum or plasma calcium agnie urement (mass/volume)Ordered By: Dr. Mason on 08-12-2022 Calcium [Mass/Vol] 8.9 mg/dL 8.5-10.1 [facility] Serum or plasma creatinine m easurement (mass/volume)Ordered By: Dr. Mason on 08-12-2022 Creatinine [Mass/Vol] 0.96 mg/dL 0.55-1.02 [facility] Comment on above: The validity of the calculated GFR & GFRAA in patients over 70 years has not been determined. Clinical correlation is essential. Serum or plasma urea nitroge n measurement (mass/volume)Ordered By: Dr. Mason on 08-12-2022 Urea nitrogen [Mass/Vol] 6 mg/dL 7-18 [facility] Thin prep Papanicolaou smear with manual screeningOrdered By: Dr. Mason on 08-12-2022 Thin prep Papanicolaou smear with manual screening 149 U/L 15-37 [facility] Comment on above: Slight Hemolysis, Re sult may be falsely increased. Thin prep Papanicolaou smear with manual screening 7 5-15 [facility] Absolute lymphocyte countOrd ered By: Dr. Mason on 08-11-2022 Lymphocytes Auto (Unsp spec) [#/Vol] 1.85 10*3/uL 0.83-4.51 [facility] Amorphous sediment detection in urine sediment by light microscopyOrdered By: Dr. Mason on 08-11-2022 Amorphous sediment LM Ql (Urine sed) 2+ [facility] Basophil percentageOrdered B y: Kenn Friend on 08-11-2022 Basophil percentage 916 U/L 84-246 [facility] LDH [Catalytic activity/Vol] 916 U/L 84-246 [facility] Basophil percentageOrdered B y: Dr. Mason on 08-11-2022 Basophil percentage 0-5 SEEN /hpf 0-5 [facility] Basophil percentage 103 mg/dL 74-106 [facility] Basophil percentage 6.7 g/dL 6.4-8.2 [facility] Basophil percentage 1.00 mg/dL 0.20-1.00 [facility] Basophil percentage 142 mmol/L 136-145 [facility] Basophil percentage 3.2 mmol/L 3.5-5.1 [facility] Basophil percentage 107 mmol/L 98-107 [facility] Basophils (Bld) [#/Vol] 5.0 10*3/uL 4.4-11.0 [facility] Basophils (Bld) [#/Vol] 2.4 10*3/uL 2.0-7.7 [facility] Basophils/100 WBC (Bld) 0.4 % 0-1 [facility] Basophils/100 WBC (Bld) 47.7 % 47-70 [facility] Basophils/100 WBC (Bld) 2.6 % 0-5 [facility] Bilirubin [Mass/Vol] 1.00 mg/dL 0.20-1.[address] [facility] Comment on above: For patients on eltr ombopag therapy, use of Dimension [place] TBIL is not recommended. Chloride [Moles/Vol] 107 mmol/L 98-[address] [facility] Eosinophils/100 WBC (Bld) 2.6 % 0-5 [facility] Glucose [Mass/Vol] 103 mg/dL 74-106 [facility] Comment on above: Fasting Glucose resu lt from 100 to 125 mg/dL suggests IMPAIRED HOMEOSTASIS per A.D.A. criteria. Neutrophils (Bld) [#/Vol] 2.4 10*3/uL 2.0-7.7 [facility] Neutrophils/100 WBC (Bld) 47.7 % 47-70 [facility] Potassium [Moles/Vol] 3.2 mmol/L 3.5-5.1 [facility] Protein [Mass/Vol] 6.7 g/dL 6.4-8.2 [facility] Sodium [Moles/Vol] 142 mmol/L 136-145 [facility] WBC (Bld) [#/Vol] 5.0 10*3/uL 4.4-11.0 [facility] Beta hCG serum qualOrdered B y: Dr. Mason on 08-11-2022 Beta HCG ( test) Ql Negative [facility] Bilirubin Test strip Ql (U)O rdered By: Dr. Mason on 08-11-2022 Bilirubin Ql (U) 3 mg/dL Negative [facility] Comment on above: COLOR OF URINE MAY A FFECT DIPSTICK RESULTS. Blood erythrocytes count (nu mber/volume)Ordered By: Dr. Mason on 08-11-2022 RBC (Bld) [#/Vol] 4.02 10*6/uL 4.2-5.4 [facility] Blood hemoglobin measurement (mass/volume)Ordered By: Dr. Mason on 08-11-2022 Hemoglobin (Bld) [Mass/Vol] 12.4 g/dL 12.0-15.0 [facility] Blood lymphocytes/100 leukoc ytesOrdered By: Dr. Mason on 08-11-2022 Lymphocytes/100 WBC (Bld) 37.2 % 19-41 [facility] Blood monocytes/100 leukocyt esOrdered By: Dr. Mason on 08-11-2022 Monocytes/100 WBC (Bld) 11.9 % 0-10 [facility] Blood platelet mean volumeOr dered By: Dr. Mason on 08-11-2022 Platelet mean volume (Bld) [Entitic vol] 10.1 fL 6.2-12.0 [facility] Determination of erythrocyte mean corpuscular volume (MCV)Ordered By: Dr. Mason on 08-11-2022 MCV (RBC) [Entitic vol] 92.5 fL 81-99 [facility] Hematocrit Auto (Bld) [Volum e fraction]Ordered By: Dr. Mason on 08-11-2022 Hematocrit (Bld) [Volume fraction] 37.2 % 37-47 [facility] Ketones Test strip Ql (U)Ord ered By: Dr. Mason on 08-11-2022 Ketones Ql (U) Negative Negative [facility] Laboratory - Chemistry and C hemistry - challengeOrdered By: Kenn Ojeda on 08-11-2022 CK [Catalytic activity/Vol] 49 U/L 26-192 [facility] Laboratory - Chemistry and C hemistry - challengeOrdered By: Dr. Mason on 08-11-2022 ALP [Catalytic activity/Vol] 186 U/L 45-117 [facility] ALT [Catalytic activity/Vol] 1223 U/L 13-56 [facility] CO2 [Moles/Vol] 29.0 mmol/L 21.0-32.0 [facility] Globulin (S) [Mass/Vol] 3.4 g/dL 2.2-4.2 [facility] Lipase [Catalytic activity/Vol] 257 U/L 73-393 [facility] Urea nitrogen/Creatinine [Mass ratio] 10.9 mg/mg 10-20 [facility] Laboratory - Hematology and Cell countsOrdered By: Dr. Mason on 08-11-2022 Erythrocyte distribution width (RBC) [Entitic vol] 43.8 fL 35.1-43.9 [facility] Erythrocyte distribution width (RBC) [Ratio] 12.9 % 11.6-14.6 [facility] Immature granulocytes/100 WBC (Bld) 0.200 % 0.0-0.9 [facility] Comment on above: IG% - Immature Granu locytes (promyelocytes, myelocytes and metamyelocytes) > 1% indicates that a LEFT SHIFT is Present. MCH (RBC) [Entitic mass] 30.8 pg 27.0-32.0 [facility] Nucleated RBC/100 WBC (Bld) [Ratio] 0 % 0-5 [facility] MCHC Auto (RBC) [Mass/Vol]Or dered By: Dr. Mason on 08-11-2022 MCHC (RBC) [Mass/Vol] 33.3 g/dL 32-36 [facility] Mucus LM Ql (Urine sed)Order ed By: Dr. Mason on 08-11-2022 Mucus Ql (Urine sed) 0 SEEN /hpf [facility] Nitrite Test strip Ql (U)Ord ered By: Dr. Mason on 08-11-2022 Nitrite Ql (U) Negative Negative [facility] No Panel InformationOrdered By: Kenn Ojeda on 08-11-2022 Ceruloplasmin 21.1 mg/dL 19.0-39.0 [facility] Comment on above: Performed at: [facility] [employer] [address] [id number] Director: Oneal Ewing PhD, Phone: [phone] Miscellaneous Test See comment [facility] Comment on above: TEST RESULTS LIMITSL iver-Kidney Microsomal Ab 1.1 Units 0.0-20.0 Negative 0.0 - 20.0 Equivocal 20.1 - 24.9 Positive >24.9 LKM type 1 antibodies are detected in patients with autoimmune hepatitis type 2 and in up to 8% of patients with chronic HCV infection. TESTING PERFORMED AT [facility]. ORIGINAL REPORT ON FILE IN LAB CONTAINS ADDITIONAL TEST SITE INFORMATION. 49 U/L 26-192 [facility] See comment [facility] 21.1 mg/dL 19.0-39.0 [facility] No Panel InformationOrdered By: Dr. Mason on 08-11-2022 Hepatitis A IgM Antibody Negative Negative [facility] Hepatitis B Core IgM Antibody Negative Negative [facility] Hepatitis C Antibody (EIA) Non-Reactive Non Reactive [facility] Hepatitis C Antibody Comment Comment . [facility] Comment on above: Not infected with HC V unless early or acute infection issuspected (which may be delayed in an immunocompromisedindividual), or other evidence exists to indicate HCVinfection. Negative Negative [facility] Non-Reactive Non Reactive [facility] Comment . [facility] Estimated Creatinine Clearance Calc 68.59 ml/min [facility] Estimated GFR (MDRD) Amer 88 mL/min >60 [facility] Comment on above: GFR Calc Estimated GFR (MDRD) Non-Af Amer 73 mL/min >60 [facility] Comment on above: Non- GFR Calc 30.8 pg 27.0-32.0 [facility] 12.9 % 11.6-14.6 [facility] 43.8 fl 35.1-43.9 [facility] 0.200 % 0.0-0.9 [facility] 0 % 0-5 [facility] 73 mL/min >60 [facility] 88 mL/min >60 [facility] 68.59 ml/min [facility] 10.9 RATIO 10-20 [facility] 3.4 g/dL 2.2-4.2 [facility] 257 U/L 73-393 [facility] 186 U/L 45-117 [facility] 1223 U/L 13-56 [facility] 29.0 mmol/L 21.0-32.0 [facility] Platelets bldOrdered By: Dr. Mason on 08-11-2022 Platelets (Bld) [#/Vol] 346 10*3/uL 150-450 [facility] Protein Test strip Ql (U)Ord ered By: Dr. Mason on 08-11-2022 Protein Ql (U) 30 mg/dl Negative [facility] Serum Jason Romero virus cap davis IgG antibody assay (units/volume)Ordered By: Dr. Mason on 08-11-2022 EBV capsid IgG Qn (S) 131.0 [arb'U]/mL 0.0-17.9 [facility] Comment on above: Negative <18.0 Equiv ocal 18.0 - 21.9 Positive >21.9 Serum Jason Romero virus cap davis IgM antibody assay (units/volume)Ordered By: Dr. Mason on 08-11-2022 EBV capsid IgM Qn (S) [arb'U]/mL 0.0-35.9 [facility] Comment on above: Negative <36.0 Equiv ocal 36.0 - 43.9 Positive >43.9 Serum Jason Romero virus nuc lear IgG antibody assay (units/volume)Ordered By: Dr. Mason on 08-11-2022 EBV nuclear IgG Qn (S) > 600.0 U/mL 0.0-17.9 [facility] Comment on above: Negative <18.0 Equiv ocal 18.0 - 21.9 Positive >21.9 Serum or plasma actin IgG an tibody assay (units/volume)Ordered By: Kenn Ojeda on 08-11-2022 Actin IgG Qn 7 Units 0-19 [facility] Comment on above: Negative 0 - 19 Weak positive 20 - 30 Moderate to strong positive >30 Actin Antibodies are found in 52-85% of patients with autoimmune hepatitis or chronic active hepatitis and in 22% of patients with primary biliary cirrhosis. Serum or plasma albumin angie urement (mass/volume)Ordered By: Dr. Mason on 08-11-2022 Albumin [Mass/Vol] 3.3 g/dL 3.2-5.0 [facility] Serum or plasma albumin/glob ulin mass ratioOrdered By: Dr. Mason on 08-11-2022 Albumin/Globulin [Mass ratio] 1.0 {ratio} 0.9-2.4 [facility] Serum or plasma calcium angie urement (mass/volume)Ordered By: Dr. Mason on 08-11-2022 Calcium [Mass/Vol] 8.8 mg/dL 8.5-10.1 [facility] Serum or plasma creatinine m easurement (mass/volume)Ordered By: Dr. Mason on 08-11-2022 Creatinine [Mass/Vol] 0.92 mg/dL 0.55-1.02 [facility] Comment on above: The validity of the calculated GFR & GFRAA in patients over 70 years has not been determined. Clinical correlation is essential. Serum or plasma cytomegalovi jacoby (CMV) IgG antibody assay (units/volume)Ordered By: Dr. Mason on 08-11-2022 CMV IgG Qn > 10.00 U/mL 0.00-0.59 [facility] Comment on above: Negative <0.60 Equiv ocal 0.60 - 0.69 Positive >0.69 Serum or plasma cytomegalovi jacoby (CMV) IgM antibody assay (units/volume)Ordered By: Dr. Mason on 08-11-2022 CMV IgM Qn < 30.0 AU/mL 0.0-29.9 [facility] Comment on above: Negative <30.0 Equiv ocal 30.0 - 34.9 Positive >34.9A positive result is generally indicative of acuteinfection, reactivation or persistent IgM production. Serum or plasma hepatitis B virus surface antigen detection by immunoassayOrdered By: Dr. Mason on 08-11-2022 HBV surface Ag IA Ql Negative Negative [facility] Serum or plasma urea nitroge n measurement (mass/volume)Ordered By: Dr. Mason on 08-11-2022 Urea nitrogen [Mass/Vol] 10 mg/dL 7-18 [facility] Squamous epithelial cells de tection in urine sediment by light microscopyOrdered By: Dr. Mason on 08-11-2022 Epithelial cells.squamous LM Ql (Urine sed) 5-10 SEEN /hpf 5-10 [facility] Thin prep Papanicolaou smear with manual screeningOrdered By: Dr. Mason on 08-11-2022 Thin prep Papanicolaou smear with manual screening Comment . [facility] Comment on above: EBV Interpretation C hartKey: Antibody Present + Antibody Absent -Interpretation VCA-IgM VCA-IgG EBNA-IgGNo previous infection/ - - -SusceptiblePrimary infection (new + + -or recent)Past Infection +or- + +See comment below* + - -*Results indicate infection with EBV at some time however cannot predict the timing of the infection since antibodies to EBNA usually develop after primary infection or, alternatively, approximately 5-10% of patients with EBV never develop antibodies to EBNA. Thin prep Papanicolaou smear with manual screening 1539 U/L 15-37 [facility] Thin prep Papanicolaou smear with manual screening 6 5-15 [facility] Thin prep Papanicolaou smear with manual screeningOrdered By: Kenn Ojeda on 08-11-2022 Thin prep Papanicolaou smear with manual screening 127 ug/dL 80-158 [facility] Comment on above: Detection Limit = 5P erformed at: - [facility] [address] [id number] Director: Oneal Ewing PhD, Phone: [phone] at: - [facility] [address] [id number] Director: Milad Muro MD, Phone: [phone] Urine blood detectionOrdered By: Dr. Mason on 08-11-2022 RBC Ql (U) Negative Negative [facility] RBC Ql (U) 0 SEEN /hpf 0-5 [facility] Urine clarityOrdered By: Dr. Mason on 08-11-2022 Clarity (U) Sl. Cloudy Clear [facility] Urine color determinationOrd ered By: Dr. Mason on 08-11-2022 Color (U) Yellow Yellow [facility] Urine glucose detectionOrder ed By: Dr. Mason on 08-11-2022 Glucose Ql (U) Normal mg/dl Normal [facility] Urine leukocyte esterase det ection by dipstickOrdered By: Dr. Mason on 08-11-2022 Leukocyte esterase Test strip Ql (U) 25 /ul Negative [facility] Urine pHOrdered By: Dr. Thee lewis on 08-11-2022 pH (U) 7.0 [pH] 5.0 - 8.0 [facility] Urine sediment bacteria coun t by microscopy (number/high power field)Ordered By: Dr. Mason on 08-11-2022 Bacteria LM.HPF (Urine sed) [#/Area] 0 /[HPF] None Seen [facility] Urine specific gravity measu rementOrdered By: Dr. Mason on 08-11-2022 Specific gravity (U) [Rel density] 1.015 1.002-1.030 [facility] Urobilinogen Auto test strip Ql (U)Ordered By: Dr. Mason on 08-11-2022 Urobilinogen Ql (U) 4 mg/dl Normal [facility] Absolute lymphocyte countOrd ered By: Dr. Pereira on 07-30-2022 Lymphocytes Auto (Unsp spec) [#/Vol] 2.26 10*3/uL 0.83-4.51 [facility] Basophil percentageOrdered B y: Dr. Pereira on 07-30-2022 Basophil percentage 92 mg/dL 74-106 [facility] Basophil percentage 7.3 g/dL 6.4-8.2 [facility] Basophil percentage 0.40 mg/dL 0.20-1.00 [facility] Basophil percentage 141 mmol/L 136-145 [facility] Basophil percentage 3.6 mmol/L 3.5-5.1 [facility] Basophil percentage 108 mmol/L 98-107 [facility] Basophils (Bld) [#/Vol] 5.7 10*3/uL 4.4-11.0 [facility] Basophils (Bld) [#/Vol] 2.8 10*3/uL 2.0-7.7 [facility] Basophils/100 WBC (Bld) 0.5 % 0-1 [facility] Basophils/100 WBC (Bld) 48.5 % 47-70 [facility] Basophils/100 WBC (Bld) 1.6 % 0-5 [facility] Bilirubin [Mass/Vol] 0.40 mg/dL 0.20-1.[address] [facility] Comment on above: For patients on eltr ombopag therapy, use of Dimension [place] TBIL is not recommended. Chloride [Moles/Vol] 108 mmol/L 98-[address] [facility] Eosinophils/100 WBC (Bld) 1.6 % 0-5 [facility] Glucose [Mass/Vol] 92 mg/dL 74-106 [facility] Neutrophils (Bld) [#/Vol] 2.8 10*3/uL 2.0-7.7 [facility] Neutrophils/100 WBC (Bld) 48.5 % 47-70 [facility] Potassium [Moles/Vol] 3.6 mmol/L 3.5-5.1 [facility] Protein [Mass/Vol] 7.3 g/dL 6.4-8.2 [facility] Sodium [Moles/Vol] 141 mmol/L 136-145 [facility] WBC (Bld) [#/Vol] 5.7 10*3/uL 4.4-11.0 [facility] Blood erythrocytes count (nu mber/volume)Ordered By: Dr. Pereira on 07-30-2022 RBC (Bld) [#/Vol] 4.10 10*6/uL 4.2-5.4 [facility] Blood hemoglobin measurement (mass/volume)Ordered By: Dr. Pereira on 07-30-2022 Hemoglobin (Bld) [Mass/Vol] 13.2 g/dL 12.0-15.0 [facility] Blood lymphocytes/100 leukoc ytesOrdered By: Dr. Pereira on 07-30-2022 Lymphocytes/100 WBC (Bld) 39.7 % 19-41 [facility] Blood monocytes/100 leukocyt esOrdered By: Dr. Pereira on 07-30-2022 Monocytes/100 WBC (Bld) 9.5 % 0-10 [facility] Blood platelet mean volumeOr dered By: Dr. Pereira on 07-30-2022 Platelet mean volume (Bld) [Entitic vol] 9.2 fL 6.2-12.0 [facility] Determination of erythrocyte mean corpuscular volume (MCV)Ordered By: Dr. Pereira on 07-30-2022 MCV (RBC) [Entitic vol] 92.7 fL 81-99 [facility] Hematocrit Auto (Bld) [Volum e fraction]Ordered By: Dr. Pereira on 07-30-2022 Hematocrit (Bld) [Volume fraction] 38.0 % 37-47 [facility] Laboratory - Chemistry and C hemistry - challengeOrdered By: Dr. Pereira on 07-30-2022 ALP [Catalytic activity/Vol] 63 U/L 45-117 [facility] ALT [Catalytic activity/Vol] 23 U/L 13-56 [facility] CO2 [Moles/Vol] 26.0 mmol/L 21.0-32.0 [facility] Globulin (S) [Mass/Vol] 3.6 g/dL 2.2-4.2 [facility] Lipase [Catalytic activity/Vol] 52 U/L 73-393 [facility] Urea nitrogen/Creatinine [Mass ratio] 10.2 mg/mg 10-20 [facility] Laboratory - Hematology and Cell countsOrdered By: Dr. Pereira on 07-30-2022 Erythrocyte distribution width (RBC) [Entitic vol] 44.0 fL 35.1-43.9 [facility] Erythrocyte distribution width (RBC) [Ratio] 12.9 % 11.6-14.6 [facility] Immature granulocytes/100 WBC (Bld) 0.200 % 0.0-0.9 [facility] Comment on above: IG% - Immature Granu locytes (promyelocytes, myelocytes and metamyelocytes) > 1% indicates that a LEFT SHIFT is Present. MCH (RBC) [Entitic mass] 32.2 pg 27.0-32.0 [facility] Nucleated RBC/100 WBC (Bld) [Ratio] 0 % 0-5 [facility] MCHC Auto (RBC) [Mass/Vol]Or dered By: Dr. Pereira on 07-30-2022 MCHC (RBC) [Mass/Vol] 34.7 g/dL 32-36 [facility] No Panel InformationOrdered By: Dr. Pereira on 07-30-2022 Estimated Creatinine Clearance Calc 64.39 ml/min [facility] Estimated GFR (MDRD) Amer 82 mL/min >60 [facility] Comment on above: GFR Calc Estimated GFR (MDRD) Non-Af Amer 68 mL/min >60 [facility] Comment on above: Non- GFR Calc 32.2 pg 27.0-32.0 [facility] 12.9 % 11.6-14.6 [facility] 44.0 fl 35.1-43.9 [facility] 0.200 % 0.0-0.9 [facility] 0 % 0-5 [facility] 68 mL/min >60 [facility] 82 mL/min >60 [facility] 64.39 ml/min [facility] 10.2 RATIO 10-20 [facility] 3.6 g/dL 2.2-4.2 [facility] 52 U/L 73-393 [facility] 63 U/L 45-117 [facility] 23 U/L 13-56 [facility] 26.0 mmol/L 21.0-32.0 [facility] Platelets bldOrdered By: Dr. Pereira on 07-30-2022 Platelets (Bld) [#/Vol] 361 10*3/uL 150-450 [facility] Serum or plasma albumin angie urement (mass/volume)Ordered By: Dr. Pereira on 07-30-2022 Albumin [Mass/Vol] 3.7 g/dL 3.2-5.0 [facility] Serum or plasma albumin/glob ulin mass ratioOrdered By: Dr. Pereira on 07-30-2022 Albumin/Globulin [Mass ratio] 1.0 {ratio} 0.9-2.4 [facility] Serum or plasma calcium angie urement (mass/volume)Ordered By: Dr. Pereira on 07-30-2022 Calcium [Mass/Vol] 9.0 mg/dL 8.5-10.1 [facility] Serum or plasma creatinine m easurement (mass/volume)Ordered By: Dr. Pereira on 07-30-2022 Creatinine [Mass/Vol] 0.98 mg/dL 0.55-1.02 [facility] Comment on above: The validity of the calculated GFR & GFRAA in patients over 70 years has not been determined. Clinical correlation is essential. Serum or plasma urea nitroge n measurement (mass/volume)Ordered By: Dr. Pereira on 07-30-2022 Urea nitrogen [Mass/Vol] 10 mg/dL 7-18 [facility] Thin prep Papanicolaou smear with manual screeningOrdered By: Dr. Pereira on 07-30-2022 Thin prep Papanicolaou smear with manual screening 11 U/L 15-37 [facility] Thin prep Papanicolaou smear with manual screening 7 5-15 [facility] Absolute lymphocyte countOrd ered By: Dr. Chan on 07-13-2022 Lymphocytes Auto (Unsp spec) [#/Vol] 2.27 10*3/uL 0.83-4.51 [facility] Basophil percentageOrdered B y: Dr. Chan on 07-13-2022 Basophil percentage 0 SEEN /hpf 0-[address] [facility] Basophil percentage 97 mg/dL 74-106 [facility] Basophil percentage 7.5 g/dL 6.4-8.2 [facility] Basophil percentage 0.30 mg/dL 0.20-1.00 [facility] Basophil percentage 138 mmol/L 136-145 [facility] Basophil percentage 3.7 mmol/L 3.5-5.1 [facility] Basophil percentage 107 mmol/L 98-107 [facility] Basophils (Bld) [#/Vol] 5.8 10*3/uL 4.4-11.0 [facility] Basophils (Bld) [#/Vol] 3.0 10*3/uL 2.0-7.7 [facility] Basophils/100 WBC (Bld) 0.5 % 0-1 [facility] Basophils/100 WBC (Bld) 51.3 % 47-70 [facility] Basophils/100 WBC (Bld) 1.0 % 0-5 [facility] Bilirubin [Mass/Vol] 0.30 mg/dL 0.20-1.[address] [facility] Comment on above: For patients on eltr ombopag therapy, use of Dimension [place] TBIL is not recommended. Chloride [Moles/Vol] 107 mmol/L 98-[address] [facility] Eosinophils/100 WBC (Bld) 1.0 % 0-5 [facility] Glucose [Mass/Vol] 97 mg/dL 74-106 [facility] Neutrophils (Bld) [#/Vol] 3.0 10*3/uL 2.0-7.7 [facility] Neutrophils/100 WBC (Bld) 51.3 % 47-70 [facility] Potassium [Moles/Vol] 3.7 mmol/L 3.5-5.1 [facility] Protein [Mass/Vol] 7.5 g/dL 6.4-8.2 [facility] Sodium [Moles/Vol] 138 mmol/L 136-145 [facility] WBC (Bld) [#/Vol] 5.8 10*3/uL 4.4-11.0 [facility] Beta hCG serum qualOrdered B y: Dr. Chan on 07-13-2022 Beta HCG ( test) Ql Negative [facility] Bilirubin Test strip Ql (U)O rdered By: Dr. Chan on 07-13-2022 Bilirubin Ql (U) Negative Negative [facility] Blood erythrocytes count (nu mber/volume)Ordered By: Dr. Chan on 07-13-2022 RBC (Bld) [#/Vol] 4.05 10*6/uL 4.2-5.4 [facility] Blood hemoglobin measurement (mass/volume)Ordered By: Dr. Chan on 07-13-2022 Hemoglobin (Bld) [Mass/Vol] 12.3 g/dL 12.0-15.0 [facility] Blood lymphocytes/100 leukoc ytesOrdered By: Dr. Chan on 07-13-2022 Lymphocytes/100 WBC (Bld) 39.4 % 19-41 [facility] Blood monocytes/100 leukocyt esOrdered By: Dr. Chan on 07-13-2022 Monocytes/100 WBC (Bld) 7.6 % 0-10 [facility] Blood platelet mean volumeOr dered By: Dr. Chan on 07-13-2022 Platelet mean volume (Bld) [Entitic vol] 9.2 fL 6.2-12.0 [facility] Determination of erythrocyte mean corpuscular volume (MCV)Ordered By: Dr. Chan on 07-13-2022 MCV (RBC) [Entitic vol] 91.6 fL 81-99 [facility] Hematocrit Auto (Bld) [Volum e fraction]Ordered By: Dr. Chan on 07-13-2022 Hematocrit (Bld) [Volume fraction] 37.1 % 37-47 [facility] Ketones Test strip Ql (U)Ord ered By: Dr. Chan on 07-13-2022 Ketones Ql (U) 5 mg/dl Negative [facility] Laboratory - Chemistry and C hemistry - challengeOrdered By: Dr. Chan on 07-13-2022 ALP [Catalytic activity/Vol] 77 U/L 45-117 [facility] ALT [Catalytic activity/Vol] 23 U/L 13-56 [facility] CO2 [Moles/Vol] 25.0 mmol/L 21.0-32.0 [facility] Globulin (S) [Mass/Vol] 3.5 g/dL 2.2-4.2 [facility] Lipase [Catalytic activity/Vol] 62 U/L 73-393 [facility] Urea nitrogen/Creatinine [Mass ratio] 10.4 mg/mg 10-20 [facility] Laboratory - Hematology and Cell countsOrdered By: Dr. Chan on 07-13-2022 Erythrocyte distribution width (RBC) [Entitic vol] 44.2 fL 35.1-43.9 [facility] Erythrocyte distribution width (RBC) [Ratio] 13.2 % 11.6-14.6 [facility] Immature granulocytes/100 WBC (Bld) 0.200 % 0.0-0.9 [facility] Comment on above: IG% - Immature Granu locytes (promyelocytes, myelocytes and metamyelocytes) > 1% indicates that a LEFT SHIFT is Present. MCH (RBC) [Entitic mass] 30.4 pg 27.0-32.0 [facility] Nucleated RBC/100 WBC (Bld) [Ratio] 0 % 0-5 [facility] MCHC Auto (RBC) [Mass/Vol]Or dered By: Dr. Chan on 07-13-2022 MCHC (RBC) [Mass/Vol] 33.2 g/dL 32-36 [facility] Mucus LM Ql (Urine sed)Order ed By: Dr. Chan on 07-13-2022 Mucus Ql (Urine sed) 0 SEEN /hpf [facility] Nitrite Test strip Ql (U)Ord ered By: Dr. Chan on 07-13-2022 Nitrite Ql (U) Negative Negative [facility] No Panel InformationOrdered By: Dr. Chan on 07-13-2022 Estimated Creatinine Clearance Calc 65.73 ml/min [facility] Estimated GFR (MDRD) Amer 83 mL/min >60 [facility] Comment on above: GFR Calc Estimated GFR (MDRD) Non-Af Amer 69 mL/min >60 [facility] Comment on above: Non- GFR Calc 30.4 pg 27.0-32.0 [facility] 13.2 % 11.6-14.6 [facility] 44.2 fl 35.1-43.9 [facility] 0.200 % 0.0-0.9 [facility] 0 % 0-5 [facility] 69 mL/min >60 [facility] 83 mL/min >60 [facility] 65.73 ml/min [facility] 10.4 RATIO 10-20 [facility] 3.5 g/dL 2.2-4.2 [facility] 62 U/L 73-393 [facility] 77 U/L 45-117 [facility] 23 U/L 13-56 [facility] 25.0 mmol/L 21.0-32.0 [facility] Platelets bldOrdered By: Dr. Chan on 07-13-2022 Platelets (Bld) [#/Vol] 388 10*3/uL 150-450 [facility] Protein Test strip Ql (U)Ord ered By: Dr. Chan on 07-13-2022 Protein Ql (U) 15 mg/dl Negative [facility] Serum or plasma albumin angie urement (mass/volume)Ordered By: Dr. Chan on 07-13-2022 Albumin [Mass/Vol] 4.0 g/dL 3.2-5.0 [facility] Serum or plasma albumin/glob ulin mass ratioOrdered By: Dr. Chan on 07-13-2022 Albumin/Globulin [Mass ratio] 1.1 {ratio} 0.9-2.4 [facility] Serum or plasma calcium angie urement (mass/volume)Ordered By: Dr. Chan on 07-13-2022 Calcium [Mass/Vol] 9.2 mg/dL 8.5-10.1 [facility] Serum or plasma creatinine m easurement (mass/volume)Ordered By: Dr. Chan on 07-13-2022 Creatinine [Mass/Vol] 0.96 mg/dL 0.55-1.02 [facility] Comment on above: The validity of the calculated GFR & GFRAA in patients over 70 years has not been determined. Clinical correlation is essential. Serum or plasma urea nitroge n measurement (mass/volume)Ordered By: Dr. Chan on 07-13-2022 Urea nitrogen [Mass/Vol] 10 mg/dL 7-18 [facility] Squamous epithelial cells de tection in urine sediment by light microscopyOrdered By: Dr. Chan on 07-13-2022 Epithelial cells.squamous LM Ql (Urine sed) 5-10 SEEN /hpf 5-10 [facility] Thin prep Papanicolaou smear with manual screeningOrdered By: Dr. Chan on 07-13-2022 Thin prep Papanicolaou smear with manual screening 17 U/L 15-37 [facility] Thin prep Papanicolaou smear with manual screening 6 5-15 [facility] Urine blood detectionOrdered By: Dr. Chan on 07-13-2022 RBC Ql (U) Negative Negative [facility] RBC Ql (U) 0 SEEN /hpf 0-5 [facility] Urine clarityOrdered By: Dr. Chan on 07-13-2022 Clarity (U) Clear Clear [facility] Urine color determinationOrd ered By: Dr. Chan on 07-13-2022 Color (U) Yellow Yellow [facility] Urine glucose detectionOrder ed By: Dr. Chan on 07-13-2022 Glucose Ql (U) Normal mg/dl Normal [facility] Urine leukocyte esterase det ection by dipstickOrdered By: Dr. Chan on 07-13-2022 Leukocyte esterase Test strip Ql (U) 25 /ul Negative [facility] Urine pHOrdered By: Dr. José choudhury on 07-13-2022 pH (U) 6.5 [pH] 5.0 - 8.0 [facility] Urine sediment bacteria coun t by microscopy (number/high power field)Ordered By: Dr. Chan on 07-13-2022 Bacteria LM.HPF (Urine sed) [#/Area] 0 /[HPF] None Seen [facility] Urine specific gravity measu rementOrdered By: Dr. Chan on 07-13-2022 Specific gravity (U) [Rel density] 1.015 1.002-1.030 [facility] Urobilinogen Auto test strip Ql (U)Ordered By: Dr. Chan on 07-13-2022 Urobilinogen Ql (U) 1 mg/dl Normal [facility] XR Hand - right PA and Later al and Obliqueon 06-19-2022 IMPRESSION: Remote bowing deformity of the fifth metacarpal. No radiographic evidence of acute osseous abnormality. Primary Education Professor: [facility] Trans[facility] Date/Time: Jun 19 2022 1:32P Dictated by : JACOB STARK MD This examination was interpreted and the report reviewed and electronically signed by: JACOB STARK MD on Jun 19 2022 1:32PM [facility] DIVISION OF RADIOLOGY * * *Final Report* * * DATE OF EXAM: Jun 17 2022 3:33PM WOX [id number] - XR HAND 3V PA/LAT/OBL RT / PROCEDURE REASON: Right hand pain * * * * Physician Interpretation * * * * TITLE: XR HAND 3V PA/LAT/OBL RT CLINICAL INDICATION: Pain TECHNIQUE: 3 view radiographic study of the right hand COMPARISON: None FINDINGS: Remote posttraumatic dorsal bowing deformity of the fifth metacarpal. No acute fracture or dislocation. Joint space is preserved. DIVISION OF RADIOLOGY Provider, [facility] - 06/19/2022 * * *Final Report* * * DATE OF EXAM: Jun 17 2022 3:33PM WOX [id number] - XR HAND 3V PA/LAT/OBL RT / PROCEDURE REASON: Right hand pain * * * * Physician Interpretation * * * * TITLE: XR HAND 3V PA/LAT/OBL RT CLINICAL INDICATION: Pain TECHNIQUE: 3 view radiographic study of the right hand COMPARISON: None FINDINGS: Remote posttraumatic dorsal bowing deformity of the fifth metacarpal. No acute fracture or dislocation. Joint space is preserved. IMPRESSION IMPRESSION: Remote bowing deformity of the fifth metacarpal. No radiographic evidence of acute osseous abnormality. Primary Education Professor: PSCB Transcribe Date/Time: Jun 19 2022 1:32P Dictated by : JACOB STARK MD This examination was interpreted and the report reviewed and electronically signed by: JACOB STARK MD on Jun 19 2022 1:32PM EST [facility] XR Hand - right PA and Later al and ObliqueOrdered By: Ccf Provider on 06-19-2022 [facility] XR Hand - right PA and Later al and Obliqueon 06-17-2022 Radiology Study observation (narrative) [facility] Absolute lymphocyte countOrd ered By: Dr. Saul on 05-22-2022 Lymphocytes Auto (Unsp spec) [#/Vol] 2.53 10*3/uL 0.83-4.51 [facility] Basophil percentageOrdered B y: Dr. Saul on 05-22-2022 Basophils/100 WBC (Bld) 0.5 % 0-1 [facility] Bilirubin [Mass/Vol] 0.50 mg/dL 0.20-1.[address] [facility] Comment on above: For patients on eltr ombopag therapy, use of Dimension [place] TBIL is not recommended. Chloride [Moles/Vol] 111 mmol/L 98-[address] [facility] Eosinophils/100 WBC (Bld) 1.2 % 0-5 [facility] Glucose [Mass/Vol] 100 mg/dL 74-106 [facility] Comment on above: Fasting Glucose resu lt from 100 to 125 mg/dL suggests IMPAIRED HOMEOSTASIS per A.D.A. criteria. Neutrophils (Bld) [#/Vol] 4.8 10*3/uL 2.0-7.7 [facility] Neutrophils/100 WBC (Bld) 59.1 % 47-70 [facility] Potassium [Moles/Vol] 3.4 mmol/L 3.5-5.1 [facility] Protein [Mass/Vol] 7.0 g/dL 6.4-8.2 [facility] Sodium [Moles/Vol] 141 mmol/L 136-145 [facility] WBC (Bld) [#/Vol] 8.0 10*3/uL 4.4-11.0 [facility] Beta hCG serum qualOrdered B y: Dr. Saul on 05-22-2022 Beta HCG ( test) Ql Negative [facility] Blood erythrocytes count (nu mber/volume)Ordered By: Dr. Saul on 05-22-2022 RBC (Bld) [#/Vol] 4.04 10*6/uL 4.2-5.4 [facility] Blood hemoglobin measurement (mass/volume)Ordered By: Dr. Saul on 05-22-2022 Hemoglobin (Bld) [Mass/Vol] 12.8 g/dL 12.0-15.0 [facility] Blood lymphocytes/100 leukoc ytesOrdered By: Dr. Saul on 05-22-2022 Lymphocytes/100 WBC (Bld) 31.5 % 19-41 [facility] Blood monocytes/100 leukocyt esOrdered By: Dr. Saul on 05-22-2022 Monocytes/100 WBC (Bld) 6.6 % 0-10 [facility] Blood platelet mean volumeOr dered By: Dr. Saul on 05-22-2022 Platelet mean volume (Bld) [Entitic vol] 9.0 fL 6.2-12.0 [facility] Determination of erythrocyte mean corpuscular volume (MCV)Ordered By: Dr. Saul on 05-22-2022 MCV (RBC) [Entitic vol] 91.8 fL 81-99 [facility] Hematocrit Auto (Bld) [Volum e fraction]Ordered By: Dr. Saul on 05-22-2022 Hematocrit (Bld) [Volume fraction] 37.1 % 37-47 [facility] Laboratory - Chemistry and C hemistry - challengeOrdered By: Dr. Saul on 05-22-2022 ALP [Catalytic activity/Vol] 108 U/L 45-117 [facility] ALT [Catalytic activity/Vol] 96 U/L 13-56 [facility] CO2 [Moles/Vol] 24.0 mmol/L 21.0-32.0 [facility] Globulin (S) [Mass/Vol] 3.3 g/dL 2.2-4.2 [facility] Lipase [Catalytic activity/Vol] 63 U/L 73-393 [facility] Urea nitrogen/Creatinine [Mass ratio] 13.4 mg/mg 10-20 [facility] Laboratory - Hematology and Cell countsOrdered By: Dr. Saul on 05-22-2022 Erythrocyte distribution width (RBC) [Entitic vol] 45.6 fL 35.1-43.9 [facility] Erythrocyte distribution width (RBC) [Ratio] 13.4 % 11.6-14.6 [facility] Immature granulocytes/100 WBC (Bld) 1.100 % 0.0-0.9 [facility] Comment on above: IG% - Immature Granu locytes (promyelocytes, myelocytes and metamyelocytes) > 1% indicates that a LEFT SHIFT is Present. MCH (RBC) [Entitic mass] 31.7 pg 27.0-32.0 [facility] Nucleated RBC/100 WBC (Bld) [Ratio] 0 % 0-5 [facility] MCHC Auto (RBC) [Mass/Vol]Or dered By: Dr. Saul on 05-22-2022 MCHC (RBC) [Mass/Vol] 34.5 g/dL 32-36 [facility] No Panel InformationOrdered By: Dr. Saul on 05-22-2022 Estimated Creatinine Clearance Calc 70.90 ml/min [facility] Estimated GFR (MDRD) Amer 91 mL/min >60 [facility] Comment on above: GFR Calc Estimated GFR (MDRD) Non-Af Amer 75 mL/min >60 [facility] Comment on above: Non- GFR Calc Platelets bldOrdered By: Dr. Saul on 05-22-2022 Platelets (Bld) [#/Vol] 324 10*3/uL 150-450 [facility] Serum or plasma albumin angie urement (mass/volume)Ordered By: Dr. Saul on 05-22-2022 Albumin [Mass/Vol] 3.7 g/dL 3.2-5.0 [facility] Serum or plasma albumin/glob ulin mass ratioOrdered By: Dr. Saul on 05-22-2022 Albumin/Globulin [Mass ratio] 1.1 {ratio} 0.9-2.4 [facility] Serum or plasma calcium angie urement (mass/volume)Ordered By: Dr. Saul on 05-22-2022 Calcium [Mass/Vol] 8.8 mg/dL 8.5-10.1 [facility] Serum or plasma creatinine m easurement (mass/volume)Ordered By: Dr. Saul on 05-22-2022 Creatinine [Mass/Vol] 0.89 mg/dL 0.55-1.02 [facility] Comment on above: The validity of the calculated GFR & GFRAA in patients over 70 years has not been determined. Clinical correlation is essential. Serum or plasma urea nitroge n measurement (mass/volume)Ordered By: Dr. Saul on 05-22-2022 Urea nitrogen [Mass/Vol] 12 mg/dL 7-18 [facility] Thin prep Papanicolaou smear with manual screeningOrdered By: Dr. Saul on 05-22-2022 Thin prep Papanicolaou smear with manual screening 170 U/L 15-37 [facility] Thin prep Papanicolaou smear with manual screening 6 5-15 [facility] Absolute lymphocyte countOrd ered By: Dr. Reynolds on 05-16-2022 Lymphocytes Auto (Unsp spec) [#/Vol] 3.36 10*3/uL 0.83-4.51 [facility] Basophil percentageOrdered B y: Dr. Reynolds on 05-16-2022 Basophils/100 WBC (Bld) 0.5 % 0-1 [facility] Bilirubin [Mass/Vol] 0.30 mg/dL 0.20-1.[address] [facility] Comment on above: For patients on eltr ombopag therapy, use of Dimension [place] TBIL is not recommended. Chloride [Moles/Vol] 107 mmol/L 98-[address] [facility] Eosinophils/100 WBC (Bld) 1.2 % 0-5 [facility] Glucose [Mass/Vol] 95 mg/dL 74-106 [facility] Neutrophils (Bld) [#/Vol] 4.3 10*3/uL 2.0-7.7 [facility] Neutrophils/100 WBC (Bld) 50.9 % 47-70 [facility] Potassium [Moles/Vol] 3.6 mmol/L 3.5-5.1 [facility] Protein [Mass/Vol] 6.7 g/dL 6.4-8.2 [facility] Sodium [Moles/Vol] 141 mmol/L 136-145 [facility] WBC (Bld) [#/Vol] 8.4 10*3/uL 4.4-11.0 [facility] Beta hCG serum qualOrdered B y: Dr. Reynolds on 05-16-2022 Beta HCG ( test) Ql Negative [facility] Blood erythrocytes count (nu mber/volume)Ordered By: Dr. Reynolds on 05-16-2022 RBC (Bld) [#/Vol] 4.08 10*6/uL 4.2-5.4 [facility] Blood hemoglobin measurement (mass/volume)Ordered By: Dr. Reynolds on 05-16-2022 Hemoglobin (Bld) [Mass/Vol] 12.5 g/dL 12.0-15.0 [facility] Blood lymphocytes/100 leukoc ytesOrdered By: Dr. Reynolds on 05-16-2022 Lymphocytes/100 WBC (Bld) 40.0 % 19-41 [facility] Blood monocytes/100 leukocyt esOrdered By: Dr. Reynolds on 05-16-2022 Monocytes/100 WBC (Bld) 7.0 % 0-10 [facility] Blood platelet mean volumeOr dered By: Dr. Reynolds on 05-16-2022 Platelet mean volume (Bld) [Entitic vol] 9.0 fL 6.2-12.0 [facility] Determination of erythrocyte mean corpuscular volume (MCV)Ordered By: Dr. Reynolds on 05-16-2022 MCV (RBC) [Entitic vol] 93.4 fL 81-99 [facility] Hematocrit Auto (Bld) [Volum e fraction]Ordered By: Dr. Reynolds on 05-16-2022 Hematocrit (Bld) [Volume fraction] 38.1 % 37-47 [facility] Laboratory - Chemistry and C hemistry - challengeOrdered By: Dr. Reynolds on 05-16-2022 ALP [Catalytic activity/Vol] 64 U/L 45-117 [facility] ALT [Catalytic activity/Vol] 31 U/L 13-56 [facility] CO2 [Moles/Vol] 26.0 mmol/L 21.0-32.0 [facility] Globulin (S) [Mass/Vol] 3.3 g/dL 2.2-4.2 [facility] Lipase [Catalytic activity/Vol] 59 U/L 73-393 [facility] Urea nitrogen/Creatinine [Mass ratio] 11.3 mg/mg 10-20 [facility] Laboratory - Hematology and Cell countsOrdered By: Dr. Reynolds on 05-16-2022 Erythrocyte distribution width (RBC) [Entitic vol] 48.4 fL 35.1-43.9 [facility] Erythrocyte distribution width (RBC) [Ratio] 14.2 % 11.6-14.6 [facility] Immature granulocytes/100 WBC (Bld) 0.400 % 0.0-0.9 [facility] Comment on above: IG% - Immature Granu locytes (promyelocytes, myelocytes and metamyelocytes) > 1% indicates that a LEFT SHIFT is Present. MCH (RBC) [Entitic mass] 30.6 pg 27.0-32.0 [facility] Nucleated RBC/100 WBC (Bld) [Ratio] 0 % 0-5 [facility] MCHC Auto (RBC) [Mass/Vol]Or dered By: Dr. Reynolds on 05-16-2022 MCHC (RBC) [Mass/Vol] 32.8 g/dL 32-36 [facility] No Panel InformationOrdered By: Dr. Reynolds on 05-16-2022 Estimated Creatinine Clearance Calc 70.90 ml/min [facility] Estimated GFR (MDRD) Amer 92 mL/min >60 [facility] Comment on above: GFR Calc Estimated GFR (MDRD) Non-Af Amer 76 mL/min >60 [facility] Comment on above: Non- GFR Calc Platelets bldOrdered By: Dr. Reynolds on 05-16-2022 Platelets (Bld) [#/Vol] 416 10*3/uL 150-450 [facility] Serum or plasma albumin angie urement (mass/volume)Ordered By: Dr. Reynolds on 05-16-2022 Albumin [Mass/Vol] 3.4 g/dL 3.2-5.0 [facility] Serum or plasma albumin/glob ulin mass ratioOrdered By: Dr. Reynolds on 05-16-2022 Albumin/Globulin [Mass ratio] 1.0 {ratio} 0.9-2.4 [facility] Serum or plasma calcium angie urement (mass/volume)Ordered By: Dr. Reynolds on 05-16-2022 Calcium [Mass/Vol] 8.8 mg/dL 8.5-10.1 [facility] Serum or plasma creatinine m easurement (mass/volume)Ordered By: Dr. Reynolds on 05-16-2022 Creatinine [Mass/Vol] 0.89 mg/dL 0.55-1.02 [facility] Comment on above: The validity of the calculated GFR & GFRAA in patients over 70 years has not been determined. Clinical correlation is essential. Serum or plasma urea nitroge n measurement (mass/volume)Ordered By: Dr. Reynolds on 05-16-2022 Urea nitrogen [Mass/Vol] 10 mg/dL 7-18 [facility] Thin prep Papanicolaou smear with manual screeningOrdered By: Dr. Reynolds on 05-16-2022 Thin prep Papanicolaou smear with manual screening 12 U/L 15-37 [facility] Thin prep Papanicolaou smear with manual screening 8 5-15 [facility] XR HIP GENERAL 3V PELV/AP/LA T RIGHTon 05-10-2022 [facility] XR Pelvis and Hip - right AP and Lateral frogon 05-10-2022 IMPRESSION: No acute osseous abnormality Primary Education Professor: DIEGO Transcribe Date/Time: May 10 2022 10:57A Dictated by : VANESSA THORNE MD This examination was interpreted and the report reviewed and electronically signed by: VANESSA THORNE MD on May 10 2022 10:58AM [facility] DIVISION OF RADIOLOGY * * *Final Report* * * DATE OF EXAM: May 10 2022 10:45AM WOX [id number] - XR HIP 3V PELV+ AP/LAT RT / PROCEDURE REASON: Hip pain, acute, right * * * * Physician Interpretation * * * * EXAMINATION: XR HIP 3V PELV+ AP/LAT RT CLINICAL HISTORY: Right hip pain Technique: XR HIP 3V PELV+ AP/LAT RT -- RIGHT with 3 views on 3 images Comparison: None RESULT: No acute fracture or dislocation. Joint spaces are maintained. DIVISION OF RADIOLOGY Provider, [facility] - 05/10/2022 * * *Final Report* * * DATE OF EXAM: May 10 2022 10:45AM WOX 5352 - XR HIP 3V PELV+ AP/LAT RT / PROCEDURE REASON: Hip pain, acute, right * * * * Physician Interpretation * * * * EXAMINATION: XR HIP 3V PELV+ AP/LAT RT CLINICAL HISTORY: Right hip pain Technique: XR HIP 3V PELV+ AP/LAT RT -- RIGHT with 3 views on 3 images Comparison: None RESULT: No acute fracture or dislocation. Joint spaces are maintained. IMPRESSION IMPRESSION: No acute osseous abnormality Primary Education Professor: PSCB Transcribe Date/Time: May 10 2022 10:57A Dictated by : VANESSA THORNE MD This examination was interpreted and the report reviewed and electronically signed by: VANESSA THORNE MD on May 10 2022 10:58AM EST [facility] Radiology Study observation (narrative) [facility] XR Pelvis and Hip - right AP and Lateral frogOrdered By: Ccf Provider on 05-10-2022 [facility] Erythrocyte sedimentation ra teOrdered By: Kenn Ojeda on 04-19-2022 ESR (Bld) [Velocity] 7 mm/h 0-[address] [facility] No Panel InformationOrdered By: Kenn Ojeda on 04-19-2022 Bordetella pertussis IgG Antibody 4.54 index 0.00-0.94 [facility] Comment on above: Negative <0.95 Equiv ocal 0.95 - 1.04 Positive >1.04Performed at: [facility] [id number] Director: Oneal Ewing PhD, Phone: [phone] at: [facility] [id number] Director: Milad Muro MD, Phone: [phone] Hepatitis A IgM Antibody Negative Negative [facility] Hepatitis B Core IgM Antibody Negative Negative [facility] Hepatitis C Antibody (EIA) <0.1 s/co ratio 0.0-0.9 [facility] Hepatitis C Antibody Comment Comment . [facility] Comment on above: NegativeNot infected with HCV, unless recent infection issuspected or other evidence exists to indicate HCVinfection. Rubella IgG Antibody Reactive Nonreactive [facility] Comment on above: Antibody Results Int erpretation of Immune Status Non Reactive Presumed Non-Immune Equivocal Equivocal Reactive Presumed Immune Qualitative QuantiFERON-TB g old in tube testOrdered By: Kenn Ojeda on 04-19-2022 M. tuberculosis tuberculin stim IFN-g Ql (Bld) See comment [facility] Comment on above: TEST RESULT LIMITSQF T-TB Plus (Client Incubated)QuantiFERON CriteriaQuantiFERON-TB Gold Plus is a qualitative indirect test forM tuberculosis infection (including disease) and is intended for use in conjunction with risk assessment, radiography, and other medical and diagnostic evaluations. The QuantiFERON-TB Gold Plus result is determined by subtracting the Nil value from either TB antigen (Ag) value. The Mitogen tube serves as a control for the test.QuantiFERON TB1 Ag Value 0.58 IU/mLQuantiFERON TB2 Ag Value 0.59 IU/mLQuantiFERON Nil Value 0.53 IU/mLQuantiFERON Mitogen Value >10.00 IU/mLQuantiFERON-TB Gold Plus Negative NegativeNo response to M tuberculosis antigens detected.Infection with M tuberculosis is unlikely, but high riskindividuals should be considered for additional testing(ATS/IDSA/CDC Clinical Practice Guidelines, 2017). Thereference range is an Antigen minus Nil result of <0.35 IU/mL.The specimen received for QuantiFERON testing was incubated by the ordering institution. Specific procedures outlined in our Directory of Services and in the package insert for the QuantiFERON Gold (In Tube) test must be followed to enable for proper stimulation of cells for the production of interferon gamma.Chemiluminescence immunoassay methodology TESTING PERFORMED AT [facility]. ORIGINAL REPORT ON FILE IN LAB CONTAINS ADDITIONAL TEST SITE INFORMATION. STREP A MOLECULAR (POC)on Procedural Control Valid [facility] Strep A (POCT) Negative Negative [facility] Serum Varicella zoster virus IgG antibody assay by immunoassay (units/volume)Ordered By: Kenn Ojeda on 04-19-2022 VZV IgG IA Qn (S) 2000 index Immune >165 [facility] Comment on above: Negative <135 Equivo arslan 135 - 165 Positive >165A positive result generally indicates exposure to thepathogen or administration of specific immunoglobulins,but it is not indication of active infection or stageof disease. Serum mumps virus IgM antibo dy assay (units/volume)Ordered By: Kenn Ojeda on 04-19-2022 MuV IgM Qn (S) < 0.80 AU 0.00-0.79 [facility] Comment on above: Negative < 0.80 Bord hans 0.80 - 1.20 Positive > 1.20Note: The presence of IgM specific antibody should beinterpreted in conjunction with the patient's clinicalhistory and exposure risk when an acute infection issuspected. Serum or plasma C reactive p rotein measurement (mass/volume)Ordered By: Kenn Ojeda on 04-19-2022 CRP [Mass/Vol] 9.01 mg/L 0.0-3.0 [facility] Comment on above: C-Reactive Protein ( CRP) provides useful information for thediagnosis, therapy and monitoring of inflammatory processesand associated diseases. For the evaluation of Relative Riskfor Cardiovascular Disease, a High Sensitivity CRP (HSCRP)should be ordered. Serum or plasma hepatitis B virus surface antigen detection by immunoassayOrdered By: Kenn Ojeda on 04-19-2022 HBV surface Ag IA Ql Negative Negative [facility] Thin prep Papanicolaou smear with manual screeningOrdered By: Kenn Ojeda on 04-19-2022 Thin prep Papanicolaou smear with manual screening Not Reportable [facility] Absolute lymphocyte countOrd ered By: Dr. Morse on 04-13-2022 Lymphocytes Auto (Unsp spec) [#/Vol] 2.34 10*3/uL 0.83-4.51 [facility] Basophil percentageOrdered B y: Dr. Morse on 04-13-2022 Basophils/100 WBC (Bld) 0.4 % 0-1 [facility] Bilirubin [Mass/Vol] 0.20 mg/dL 0.20-1.[address] [facility] Comment on above: For patients on eltr ombopag therapy, use of Dimension [place] TBIL is not recommended. Chloride [Moles/Vol] 111 mmol/L 98-[address] [facility] Eosinophils/100 WBC (Bld) 1.1 % 0-5 [facility] Glucose [Mass/Vol] 94 mg/dL 74-106 [facility] Neutrophils (Bld) [#/Vol] 2.7 10*3/uL 2.0-7.7 [facility] Neutrophils/100 WBC (Bld) 48.7 % 47-70 [facility] Potassium [Moles/Vol] 3.5 mmol/L 3.5-5.1 [facility] Protein [Mass/Vol] 7.5 g/dL 6.4-8.2 [facility] Sodium [Moles/Vol] 141 mmol/L 136-145 [facility] WBC (Bld) [#/Vol] 5.5 10*3/uL 4.4-11.0 [facility] Beta hCG serum qualOrdered B y: Dr. Morse on 04-13-2022 Beta HCG ( test) Ql Negative [facility] Blood erythrocytes count (nu mber/volume)Ordered By: Dr. Morse on 04-13-2022 RBC (Bld) [#/Vol] 4.04 10*6/uL 4.2-5.4 [facility] Blood hemoglobin measurement (mass/volume)Ordered By: Dr. Morse on 04-13-2022 Hemoglobin (Bld) [Mass/Vol] 12.2 g/dL 12.0-15.0 [facility] Blood lymphocytes/100 leukoc ytesOrdered By: Dr. Morse on 04-13-2022 Lymphocytes/100 WBC (Bld) 42.5 % 19-41 [facility] Blood monocytes/100 leukocyt esOrdered By: Dr. Morse on 04-13-2022 Monocytes/100 WBC (Bld) 7.1 % 0-10 [facility] Blood platelet mean volumeOr dered By: Dr. Morse on 04-13-2022 Platelet mean volume (Bld) [Entitic vol] 8.8 fL 6.2-12.0 [facility] Determination of erythrocyte mean corpuscular volume (MCV)Ordered By: Dr. Morse on 04-13-2022 MCV (RBC) [Entitic vol] 90.6 fL 81-99 [facility] Direct bilirubinOrdered By: Dr. Morse on 04-13-2022 Bilirubin.direct [Mass/Vol] 0.11 mg/dL 0.00-0.30 [facility] Hematocrit Auto (Bld) [Volum e fraction]Ordered By: Dr. Morse on 04-13-2022 Hematocrit (Bld) [Volume fraction] 36.6 % 37-47 [facility] Laboratory - Chemistry and C hemistry - challengeOrdered By: Dr. Morse on 04-13-2022 ALP [Catalytic activity/Vol] 75 U/L 45-117 [facility] ALT [Catalytic activity/Vol] 22 U/L 13-56 [facility] CO2 [Moles/Vol] 26.0 mmol/L 21.0-32.0 [facility] Globulin (S) [Mass/Vol] 3.5 g/dL 2.2-4.2 [facility] Lipase [Catalytic activity/Vol] 63 U/L 73-393 [facility] Urea nitrogen/Creatinine [Mass ratio] 11.8 mg/mg 10-20 [facility] Laboratory - Hematology and Cell countsOrdered By: Dr. Morse on 04-13-2022 Erythrocyte distribution width (RBC) [Entitic vol] 42.5 fL 35.1-43.9 [facility] Erythrocyte distribution width (RBC) [Ratio] 12.8 % 11.6-14.6 [facility] Immature granulocytes/100 WBC (Bld) 0.200 % 0.0-0.9 [facility] Comment on above: IG% - Immature Granu locytes (promyelocytes, myelocytes and metamyelocytes) > 1% indicates that a LEFT SHIFT is Present. MCH (RBC) [Entitic mass] 30.2 pg 27.0-32.0 [facility] Nucleated RBC/100 WBC (Bld) [Ratio] 0 % 0-5 [facility] MCHC Auto (RBC) [Mass/Vol]Or dered By: Dr. Morse on 04-13-2022 MCHC (RBC) [Mass/Vol] 33.3 g/dL 32-36 [facility] No Panel InformationOrdered By: Dr. Morse on 04-13-2022 Estimated Creatinine Clearance Calc 67.85 ml/min [facility] Estimated GFR (MDRD) Amer 87 mL/min >60 [facility] Comment on above: GFR Calc Estimated GFR (MDRD) Non-Af Amer 72 mL/min >60 [facility] Comment on above: Non- GFR Calc Platelets bldOrdered By: Dr. Morse on 04-13-2022 Platelets (Bld) [#/Vol] 409 10*3/uL 150-450 [facility] Serum or plasma albumin angie urement (mass/volume)Ordered By: Dr. Morse on 04-13-2022 Albumin [Mass/Vol] 4.0 g/dL 3.2-5.0 [facility] Serum or plasma calcium angie urement (mass/volume)Ordered By: Dr. Morse on 04-13-2022 Calcium [Mass/Vol] 9.3 mg/dL 8.5-10.1 [facility] Serum or plasma creatinine m easurement (mass/volume)Ordered By: Dr. Morse on 04-13-2022 Creatinine [Mass/Vol] 0.93 mg/dL 0.55-1.02 [facility] Comment on above: The validity of the calculated GFR & GFRAA in patients over 70 years has not been determined. Clinical correlation is essential. Serum or plasma urea nitroge n measurement (mass/volume)Ordered By: Dr. Morse on 04-13-2022 Urea nitrogen [Mass/Vol] 11 mg/dL 7-18 [facility] Thin prep Papanicolaou smear with manual screeningOrdered By: Dr. Morse on 04-13-2022 Thin prep Papanicolaou smear with manual screening 16 U/L 15-37 [facility] Thin prep Papanicolaou smear with manual screening 4 5-15 [facility] Absolute lymphocyte countOrd ered By: ED PROVIDER on 04-10-2022 Lymphocytes Auto (Unsp spec) [#/Vol] 2.58 10*3/uL 0.83-4.51 [facility] Basophil percentageOrdered B y: ED PROVIDER on 04-10-2022 Basophil percentage 0-5 SEEN /hpf 0-5 [facility] Basophils/100 WBC (Bld) 0.6 % 0-1 [facility] Chloride [Moles/Vol] 111 mmol/L 98-[address] [facility] Eosinophils/100 WBC (Bld) 1.1 % 0-5 [facility] Glucose [Mass/Vol] 82 mg/dL 74-106 [facility] Neutrophils (Bld) [#/Vol] 3.1 10*3/uL 2.0-7.7 [facility] Neutrophils/100 WBC (Bld) 49.8 % 47-70 [facility] Potassium [Moles/Vol] 3.5 mmol/L 3.5-5.1 [facility] Comment on above: Slight Hemolysis, Re sult may be falsely increased. Sodium [Moles/Vol] 143 mmol/L 136-145 [facility] WBC (Bld) [#/Vol] 6.2 10*3/uL 4.4-11.0 [facility] Bilirubin Test strip Ql (U)O rdered By: ED PROVIDER on 04-10-2022 Bilirubin Ql (U) Negative Negative [facility] Blood erythrocytes count (nu mber/volume)Ordered By: ED PROVIDER on 04-10-2022 RBC (Bld) [#/Vol] 3.95 10*6/uL 4.2-5.4 [facility] Blood hemoglobin measurement (mass/volume)Ordered By: ED PROVIDER on 04-10-2022 Hemoglobin (Bld) [Mass/Vol] 12.0 g/dL 12.0-15.0 [facility] Blood lymphocytes/100 leukoc ytesOrdered By: ED PROVIDER on 04-10-2022 Lymphocytes/100 WBC (Bld) 41.7 % 19-41 [facility] Blood monocytes/100 leukocyt esOrdered By: ED PROVIDER on 04-10-2022 Monocytes/100 WBC (Bld) 6.6 % 0-10 [facility] Blood platelet mean volumeOr dered By: ED PROVIDER on 04-10-2022 Platelet mean volume (Bld) [Entitic vol] 9.2 fL 6.2-12.0 [facility] Determination of erythrocyte mean corpuscular volume (MCV)Ordered By: ED PROVIDER on 04-10-2022 MCV (RBC) [Entitic vol] 90.4 fL 81-99 [facility] Hematocrit Auto (Bld) [Volum e fraction]Ordered By: ED PROVIDER on 04-10-2022 Hematocrit (Bld) [Volume fraction] 35.7 % 37-47 [facility] Ketones Test strip Ql (U)Ord ered By: ED PROVIDER on 04-10-2022 Ketones Ql (U) 50 mg/dl Negative [facility] Laboratory - Chemistry and C hemistry - challengeOrdered By: ED PROVIDER on 04-10-2022 CO2 [Moles/Vol] 25.0 mmol/L 21.0-32.0 [facility] Urea nitrogen/Creatinine [Mass ratio] 11.5 mg/mg 10-20 [facility] Laboratory - Hematology and Cell countsOrdered By: ED PROVIDER on 04-10-2022 Erythrocyte distribution width (RBC) [Entitic vol] 42.0 fL 35.1-43.9 [facility] Erythrocyte distribution width (RBC) [Ratio] 12.8 % 11.6-14.6 [facility] Immature granulocytes/100 WBC (Bld) 0.200 % 0.0-0.9 [facility] Comment on above: IG% - Immature Granu locytes (promyelocytes, myelocytes and metamyelocytes) > 1% indicates that a LEFT SHIFT is Present. MCH (RBC) [Entitic mass] 30.4 pg 27.0-32.0 [facility] Nucleated RBC/100 WBC (Bld) [Ratio] 0 % 0-5 [facility] MCHC Auto (RBC) [Mass/Vol]Or dered By: ED PROVIDER on 04-10-2022 MCHC (RBC) [Mass/Vol] 33.6 g/dL 32-36 [facility] Mucus LM Ql (Urine sed)Order ed By: ED PROVIDER on 04-10-2022 Mucus Ql (Urine sed) 0 SEEN /hpf [facility] Nitrite Test strip Ql (U)Ord ered By: ED PROVIDER on 04-10-2022 Nitrite Ql (U) Negative Negative [facility] No Panel InformationOrdered By: ED PROVIDER on 04-10-2022 Estimated Creatinine Clearance Calc 72.53 ml/min [facility] Estimated GFR (MDRD) Amer 93 mL/min >60 [facility] Comment on above: GFR Calc Estimated GFR (MDRD) Non-Af Amer 77 mL/min >60 [facility] Comment on above: Non- GFR Calc Platelets bldOrdered By: ED PROVIDER on 04-10-2022 Platelets (Bld) [#/Vol] 417 10*3/uL 150-450 [facility] Protein Test strip Ql (U)Ord ered By: ED PROVIDER on 04-10-2022 Protein Ql (U) 30 mg/dl Negative [facility] Serum or plasma calcium angie urement (mass/volume)Ordered By: ED PROVIDER on 04-10-2022 Calcium [Mass/Vol] 9.2 mg/dL 8.5-10.1 [facility] Serum or plasma creatinine m easurement (mass/volume)Ordered By: ED PROVIDER on 04-10-2022 Creatinine [Mass/Vol] 0.87 mg/dL 0.55-1.02 [facility] Comment on above: The validity of the calculated GFR & GFRAA in patients over 70 years has not been determined. Clinical correlation is essential. Serum or plasma urea nitroge n measurement (mass/volume)Ordered By: ED PROVIDER on 04-10-2022 Urea nitrogen [Mass/Vol] 10 mg/dL 7-18 [facility] Squamous epithelial cells de tection in urine sediment by light microscopyOrdered By: ED PROVIDER on 04-10-2022 Epithelial cells.squamous LM Ql (Urine sed) 0-5 SEEN /hpf 5-10 [facility] Thin prep Papanicolaou smear with manual screeningOrdered By: ED PROVIDER on 04-10-2022 Thin prep Papanicolaou smear with manual screening 7 5-15 [facility] Urine blood detectionOrdered By: ED PROVIDER on 04-10-2022 RBC Ql (U) 250 /ul Negative [facility] RBC Ql (U) 0-5 SEEN /hpf 0-5 [facility] Urine clarityOrdered By: ED PROVIDER on 04-10-2022 Clarity (U) Clear Clear [facility] Urine color determinationOrd ered By: ED PROVIDER on 04-10-2022 Color (U) Yellow Yellow [facility] Urine glucose detectionOrder ed By: ED PROVIDER on 04-10-2022 Glucose Ql (U) Normal mg/dl Normal [facility] Urine leukocyte esterase det ection by dipstickOrdered By: ED PROVIDER on 04-10-2022 Leukocyte esterase Test strip Ql (U) 100 /ul Negative [facility] Urine pHOrdered By: ED PROVI MABEL on 04-10-2022 pH (U) 6.0 [pH] 5.0 - 8.0 [facility] Urine sediment bacteria coun t by microscopy (number/high power field)Ordered By: ED PROVIDER on 04-10-2022 Bacteria LM.HPF (Urine sed) [#/Area] RARE /hpf None Seen [facility] Urine specific gravity measu rementOrdered By: ED PROVIDER on 04-10-2022 Specific gravity (U) [Rel density] 1.020 1.002-1.030 [facility] Urobilinogen Auto test strip Ql (U)Ordered By: ED PROVIDER on 04-10-2022 Urobilinogen Ql (U) Normal mg/dl Normal [facility] Absolute lymphocyte counton 02-19-2022 Lymphocytes Auto (Unsp spec) [#/Vol] 2.76 10*3/uL 0.83-4.51 [facility] Work Phone: Basophil percentageon 2021 Basophil percentage 0-5 SEEN /hpf 0-5 [facility] Work Phone: Basophils/100 WBC (Bld) 0.6 % 0-1 [facility] Work Phone: Chloride [Moles/Vol] 109 mmol/L 98-[address] [facility] Work Phone: Eosinophils/100 WBC (Bld) 1.6 % 0-5 [facility] Work Phone: Glucose [Mass/Vol] 93 mg/dL 74-106 [facility] Work Phone: Neutrophils (Bld) [#/Vol] 2.9 10*3/uL 2.0-7.7 [facility] Work Phone: Neutrophils/100 WBC (Bld) 46.2 % 47-70 [facility] Work Phone: Potassium [Moles/Vol] 3.4 mmol/L 3.5-5.1 [facility] Work Phone: Sodium [Moles/Vol] 139 mmol/L 136-145 [facility] Work Phone: WBC (Bld) [#/Vol] 6.3 10*3/uL 4.4-11.0 [facility] Work Phone: [phone] Beta hCG serum qualon 2021 Beta HCG ( test) Ql Negative [facility] Work Phone: Bilirubin Test strip Ql (U)o n 02-19-2022 Bilirubin Ql (U) Negative Negative [facility] Work Phone: Blood erythrocytes count (nu mber/volume)on 02-19-2022 RBC (Bld) [#/Vol] 4.31 10*6/uL 4.2-5.4 [facility]: Blood hemoglobin measurement (mass/volume)on 02-19-2022 Hemoglobin (Bld) [Mass/Vol] 13.5 g/dL 12.0-15.0 [facility] Work Phone: Blood lymphocytes/100 leukoc yteson 02-19-2022 Lymphocytes/100 WBC (Bld) 44.1 % 19-41 [facility] Work Phone: Blood monocytes/100 leukocyt eson 02-19-2022 Monocytes/100 WBC (Bld) 7.3 % 0-10 [facility] Work Phone: Blood platelet mean volumeon 02-19-2022 Platelet mean volume (Bld) [Entitic vol] 8.8 fL 6.2-12.0 [facility] Work Phone: Determination of erythrocyte mean corpuscular volume (MCV)on 02-19-2022 MCV (RBC) [Entitic vol] 89.8 fL 81-99 [facility] Work Phone: Hematocrit Auto (Bld) [Volum e fraction]on 02-19-2022 Hematocrit (Bld) [Volume fraction] 38.7 % 37-47 [facility] Work Phone: Ketones Test strip Ql (U)on 02-19-2022 Ketones Ql (U) 5 mg/dl Negative [facility] Work Phone: Laboratory - Chemistry and C hemistry - challengeon 02-19-2022 CO2 [Moles/Vol] 22.0 mmol/L 21.0-32.0 [facility] Work Phone: Urea nitrogen/Creatinine [Mass ratio] 6.4 mg/mg 10-20 [facility] Work Phone: Laboratory - Hematology and Cell countson 02-19-2022 Erythrocyte distribution width (RBC) [Entitic vol] 41.2 fL 35.1-43.9 [facility] Work Phone: Erythrocyte distribution width (RBC) [Ratio] 12.4 % 11.6-14.6 [facility] Work Phone: Immature granulocytes/100 WBC (Bld) 0.200 % 0.0-0.9 [facility] Work Phone: Comment on above: IG% - Immature Granu locytes (promyelocytes, myelocytes and metamyelocytes) > 1% indicates that a LEFT SHIFT is Present. MCH (RBC) [Entitic mass] 31.3 pg 27.0-32.0 [facility] Work Phone: Nucleated RBC/100 WBC (Bld) [Ratio] 0 % 0-5 [facility] Work Phone: MCHC Auto (RBC) [Mass/Vol]on 02-19-2022 MCHC (RBC) [Mass/Vol] 34.9 g/dL 32-36 [facility] Work Phone: Mucus LM Ql (Urine sed)on Mucus Ql (Urine sed) 4+ /[facility] Work Phone: Nitrite Test strip Ql (U)on 02-19-2022 Nitrite Ql (U) Negative Negative [facility] Work Phone: No Panel Informationon 02-19 Estimated Creatinine Clearance Calc 67.13 ml/min [facility] Work Phone: Estimated GFR (MDRD) Amer 86 mL/min >60 [facility] Work Phone: Comment on above: GFR Calc Estimated GFR (MDRD) Non-Af Amer 71 mL/min >60 [facility] Work Phone: Comment on above: Non- GFR Calc Platelets bldon 02-19-2022 Platelets (Bld) [#/Vol] 407 10*3/uL 150-450 [facility] Work Phone: Protein Test strip Ql (U)on 02-19-2022 Protein Ql (U) 30 mg/dl Negative [facility] Work Phone: Serum or plasma calcium angie urement (mass/volume)on 02-19-2022 Calcium [Mass/Vol] 9.2 mg/dL 8.5-10.1 [facility] Work Phone: Serum or plasma creatinine m easurement (mass/volume)on 02-19-2022 Creatinine [Mass/Vol] 0.94 mg/dL 0.55-1.02 [facility] Work Phone: Comment on above: The validity of the calculated GFR & GFRAA in patients over 70 years has not been determined. Clinical correlation is essential. Serum or plasma urea nitroge n measurement (mass/volume)on 02-19-2022 Urea nitrogen [Mass/Vol] 6 mg/dL 7-18 [facility] Work Phone: Squamous epithelial cells de tection in urine sediment by light microscopyon 02-19-2022 Epithelial cells.squamous LM Ql (Urine sed) 5-10 SEEN /hpf 5-10 [facility] Work Phone: Thin prep Papanicolaou smear with manual screeningon 02-19-2022 Thin prep Papanicolaou smear with manual screening 8 5-15 [facility] Work Phone: Urine blood detectionon 02-09 RBC Ql (U) Negative Negative [facility] Work Phone: RBC Ql (U) 0 SEEN /hpf 0-5 [facility] Work Phone: Urine clarityon 02-19-2022 Clarity (U) Clear Clear [facility] Work Phone: Urine color determinationon 02-19-2022 Color (U) Yellow Yellow [facility] Work Phone: Urine glucose detectionon Glucose Ql (U) Normal mg/dl Normal [facility] Work Phone: Urine leukocyte esterase det ection by dipstickon 02-19-2022 Leukocyte esterase Test strip Ql (U) 25 /ul Negative [facility] Work Phone: Urine pHon 02-19-2022 pH (U) 6.0 [pH] 5.0 - 8.0 [facility] Work Phone: Urine sediment bacteria coun t by microscopy (number/high power field)on 02-19-2022 Bacteria LM.HPF (Urine sed) [#/Area] 3 /[HPF] None Seen [facility] Work Phone: Urine specific gravity measu rementon 02-19-2022 Specific gravity (U) [Rel density] 1.025 1.002-1.030 [facility] Work Phone: Urobilinogen Auto test strip Ql (U)on 02-19-2022 Urobilinogen Ql (U) 1 mg/dl Normal [facility] Work Phone: No Panel Informationon 02-11 Stool Calprotectin 74 ug/g 0-120 [facility] Work Phone: Comment on above: Concentration Interp retation Follow-Up<16 - 50 ug/g Normal None>50 -120 ug/g Borderline Re-evaluate in 4-6 weeks >120 ug/g Abnormal Repeat as clinically indicatedPerformed at: [place] [id number] Director: Oneal Ewing PhD, Phone: [phone] at: [employer] [address] [id number] Director: Milad Muro MD, Phone: [phone] Stool Neutral Fats Normal . [facility] Work Phone: Comment on above: Normal (<60 Droplets /HPF) Stool Pancreatic Elastase > 500 >200 [facility] Work Phone: Comment on above: Result Units: ug [address]ra st./g Severe Pancreatic Insufficiency: <100 Moderate Pancreatic Insufficiency: 100 - 200 Normal: >200Performed at: [facility] [address] [id number] Director: Milad Muro MD, Phone: [phone] Qualitative fecal fat or lip idson 02-11-2022 Fat Ql (Stl) Normal . [facility] Work Phone: Comment on above: Normal (<100 Droplet s/HPF) Absolute lymphocyte counton 02-07-2022 Lymphocytes Auto (Unsp spec) [#/Vol] 2.80 10*3/uL 0.83-4.51 [facility] Work Phone: Albumin Elph [Mass/Vol]on Albumin [Mass/Vol] 3.9 g/dL 2.9-4.4 [facility] Work Phone: Atypical perinuclear antineu trophil cytoplasmic antibodies measurementon 02-07-2022 Neutrophil cytoplasmic Ab.perinuclear.atypica l IF (S) [Titer] <1:20 titer Neg:<1:20 [facility] Work Phone: Comment on above: The atypical pANCA p attern has been observed in asignificant percentage of patients with ulcerative colitis,primary sclerosing cholangitis and autoimmune hepatitis. Basophil percentageon 2021 Basophil percentage < 0.2 AI 0.0-0.9 [facility] Work Phone: Basophils/100 WBC (Bld) 0.4 % 0-1 [facility] Work Phone: Bilirubin [Mass/Vol] 0.30 mg/dL 0.20-1.[address] [facility] Work Phone: Comment on above: For patients on eltr ombopag therapy, use of Dimension [place] TBIL is not recommended. Chloride [Moles/Vol] 109 mmol/L 98-[address] [facility] Work Phone: [phone] Eosinophils/100 WBC (Bld) 1.8 % 0-5 [facility] Work Phone: [phone] Glucose [Mass/Vol] 91 mg/dL 74-106 [facility] Work Phone: [phone] Neutrophils (Bld) [#/Vol] 3.2 10*3/uL 2.0-7.7 [facility] Work Phone: [phone] Neutrophils/100 WBC (Bld) 47.5 % 47-70 [facility] Work Phone: Potassium [Moles/Vol] 3.7 mmol/L 3.5-5.1 [facility] Work Phone: Protein [Mass/Vol] 8.3 g/dL 6.4-8.2 [facility] Work Phone: Sodium [Moles/Vol] 140 mmol/L 136-145 [facility] Work Phone: [phone] WBC (Bld) [#/Vol] 6.7 10*3/uL 4.4-11.0 [facility] Work Phone: Blood erythrocytes count (nu mber/volume)on 02-07-2022 RBC (Bld) [#/Vol] 4.59 10*6/uL 4.2-5.4 [facility] Work Phone: Blood hemoglobin measurement (mass/volume)on 02-07-2022 Hemoglobin (Bld) [Mass/Vol] 13.8 g/dL 12.0-15.0 [facility] Work Phone: Blood lymphocytes/100 leukoc yteson 02-07-2022 Lymphocytes/100 WBC (Bld) 41.9 % 19-41 [facility] Work Phone: Blood monocytes/100 leukocyt eson 02-07-2022 Monocytes/100 WBC (Bld) 8.1 % 0-10 [facility] Work Phone: Blood platelet mean volumeon 02-07-2022 Platelet mean volume (Bld) [Entitic vol] 9.2 fL 6.2-12.0 [facility] Work Phone: Determination of erythrocyte mean corpuscular volume (MCV)on 02-07-2022 MCV (RBC) [Entitic vol] 88.9 fL 81-99 [facility] Work Phone: Hematocrit Auto (Bld) [Volum e fraction]on 02-07-2022 Hematocrit (Bld) [Volume fraction] 40.8 % 37-47 [facility] Work Phone: Interpretation of serum or p lasma protein pattern by immunofixation (narrative resulton 02-07-2022 Protein Fractions Immunofixation Isaias [Interp] See comment [facility] Work Phone: Comment on above: Result: Not Observed Laboratory - Chemistry and C hemistry - challengeon 02-07-2022 ALP [Catalytic activity/Vol] 75 U/L 45-117 [facility] Work Phone: ALT [Catalytic activity/Vol] 26 U/L 13-56 [facility] Work Phone: CO2 [Moles/Vol] 23.0 mmol/L 21.0-32.0 [facility] Work Phone: Globulin (S) [Mass/Vol] 4.1 g/dL 2.2-4.2 [facility] Work Phone: Urea nitrogen/Creatinine [Mass ratio] 11.3 mg/mg 10-20 [facility] Work Phone: Laboratory - Hematology and Cell countson 02-07-2022 Erythrocyte distribution width (RBC) [Entitic vol] 41.6 fL 35.1-43.9 [facility] Work Phone: Erythrocyte distribution width (RBC) [Ratio] 12.7 % 11.6-14.6 [facility] Work Phone: Immature granulocytes/100 WBC (Bld) 0.300 % 0.0-0.9 [facility] Work Phone: Comment on above: IG% - Immature Granu locytes (promyelocytes, myelocytes and metamyelocytes) > 1% indicates that a LEFT SHIFT is Present. MCH (RBC) [Entitic mass] 30.1 pg 27.0-32.0 [facility] Work Phone: Nucleated RBC/100 WBC (Bld) [Ratio] 0 % 0-5 [facility] Work Phone: MCHC Auto (RBC) [Mass/Vol]on 02-07-2022 MCHC (RBC) [Mass/Vol] 33.8 g/dL 32-36 [facility] Work Phone: No Panel Informationon 02-07 Addendum Document Comment . [facility] Work Phone: Comment on above: Protein electrophore sis scan will follow via computer,mail, or supervisor pig machine delivery. Centromere B Antibody <0.2 AI 0.0-0.9 [facility] Work Phone: Estimated GFR (MDRD) Amer 83 mL/min >60 [facility] Work Phone: Comment on above: GFR Calc Estimated GFR (MDRD) Non-Af Amer 68 mL/min >60 [facility] Work Phone: Comment on above: Non- GFR Calc Immunoglobulin E 7 IU/mL 6-495 [facility] Work Phone: Comment on above: Performed at: [facility] [address] [id number] Director: Oneal Ewing PhD, Phone: [phone] at: [facility] [address] [id number] Director: Milad Muro MD, Phone: [phone] Miscellaneous Test See comment [facility] Work Phone: Comment on above: TEST RESULT LIMITSIB D Expanded PanelgASCA 10 units 0-50 Negative <45 Equivocal 45 - 50 Positive >50ACCA 16 units 0-90 Negative <80 Equivocal 80 - 90 Positive >90ALCA 4 units 0-60 Negative <55 Equivocal 55 - 60 Positive >60AMCA 13 units 0-100 Negative < 90 Equivocal 90 - 100 Positive >100 This test was developed and its performance characteristics determined by [facility]. It has not been cleared or approved by the Food and Drug Administration. The FDA has determined that such clearance or approval is not necessary.Atypical pANCA Negative NegativeCommentsPattern is not suggestive of Inflammatory Bowel Disease. __ TESTING PERFORMED AT [facility]. ORIGINAL REPORT ON FILE IN LAB CONTAINS ADDITIONAL TEST SITE INFORMATION. TALLOW PUMPER Antibody 0.5 AI 0.0-0.9 [facility] Work Phone: Platelets bldon 02-07-2022 Platelets (Bld) [#/Vol] 457 10*3/uL 150-450 [facility] Work Phone: Serum DNA double strand anti body assay (units/volume)on 02-07-2022 DNA double strand Ab Qn (S) 1 [IU]/mL 0-9 [facility] Work Phone: Comment on above: Negative <5 Equivoca l 5 - 9 Positive >9 Serum IgA measurement (units /volume)on 02-07-2022 IgA Qn (S) See comment [facility] Work Phone: Comment on above: TEST RESULT LIMITSCe liac Disease PanelEndomysial Antibody IgA Negative Negativet-Transglutaminase (tTG) IgA <2 U/mL 0-3 Negative 0 - 3 Weak Positive 4 - 10 Positive >10 Tissue Transglutaminase (tTG) has been identified as the endomysial antigen. Studies have demonstr- ated that endomysial IgA antibodies have over 99% specificity for gluten sensitive enteropathy.Immunoglobulin A, Qn, Serum 132 mg/dL 87-352 TESTING PERFORMED AT [facility]. ORIGINAL REPORT ON FILE IN LAB CONTAINS ADDITIONAL TEST SITE INFORMATION. Serum Anisa-1 antibody assay (u nits/volume)on 02-07-2022 Anisa-1 extractable nuclear Ab Qn (S) <0.2 AI 0.0-0.9 [facility] Work Phone: Serum Scl-70 extractable nuc lear antibody assay (units/volume)on 02-07-2022 SCL-70 extractable nuclear Ab Qn (S) <0.2 AI 0.0-0.9 [facility] Work Phone: Serum extractable nucl ear antibody detectionon 02-07-2022 extractable nuclear Ab Ql (S) <0.2 AI 0.0-0.9 [facility] Work Phone: Serum [id number] measu rement by electrophoresison 02-07-2022 Alpha 1 globulin Elph [Mass/Vol] 0.3 g/dL 0.0-0.4 [facility] Work Phone: Alpha 1 globulin Elph [Mass/Vol] 1.1 g/dL 0.4-1.0 [facility] Work Phone: Serum classic neutrophil cyt oplasmic antibody assay (units/volume)on 02-07-2022 Neutrophil cytoplasmic Ab.classic Qn (S) <1:20 titer Neg:<1:20 [facility] Work Phone: Serum globulin measurement ( mass/volume)on 02-07-2022 Globulin (S) [Mass/Vol] 3.5 g/dL 2.2-3.9 [facility] Work Phone: Serum or plasma IgA measurem ent (mass/volume)on 02-07-2022 IgA [Mass/Vol] 139 mg/dL 87-352 [facility] Work Phone: Serum or plasma IgG measurem ent (mass/volume)on 02-07-2022 IgG [Mass/Vol] 1056 mg/dL [phone] [facility] Work Phone: Serum or plasma IgM measurem ent (mass/volume)on 02-07-2022 IgM [Mass/Vol] 91 mg/dL 26-217 [facility] Work Phone: Serum or plasma albumin angie urement (mass/volume)on 02-07-2022 Albumin [Mass/Vol] 4.2 g/dL 3.2-5.0 [facility] Work Phone: Serum or plasma albumin/glob ulin mass ratioon 02-07-2022 Albumin/Globulin [Mass ratio] 1.0 {ratio} 0.9-2.4 [facility] Work Phone: Serum or plasma beta globuli n measurement by electrophoresis (mass/volume)on 02-07-2022 Beta globulin Elph [Mass/Vol] 1.2 g/dL 0.7-1.3 [facility] Work Phone: Serum or plasma calcium angie urement (mass/volume)on 02-07-2022 Calcium [Mass/Vol] 9.5 mg/dL 8.5-10.1 [facility] Work Phone: Serum or plasma creatinine m easurement (mass/volume)on 02-07-2022 Creatinine [Mass/Vol] 0.97 mg/dL 0.55-1.02 [facility] Work Phone: Comment on above: The validity of the calculated GFR & GFRAA in patients over 70 years has not been determined. Clinical correlation is essential. Serum or plasma gamma globul in measurement by electrophoresis (mass/volume)on 02-07-2022 Gamma globulin Elph [Mass/Vol] 0.9 g/dL 0.4-1.8 [facility] Work Phone: Serum or plasma immunoelectr ophoresis interpretation (nominal result)on 02-07-2022 Interpretation IEP [Interp] Comment . [facility] Work Phone: Comment on above: No monoclonality det ected. Serum or plasma urea nitroge n measurement (mass/volume)on 02-07-2022 Urea nitrogen [Mass/Vol] 11 mg/dL 7-18 [facility] Work Phone: Serum perinuclear neutrophil cytoplasmic antibody titer by immunofluorescenceon 02-07-2022 Neutrophil cytoplasmic Ab.perinuclear IF (S) [Titer] <1:20 titer Neg:<1:20 [facility] Work Phone: Comment on above: The presence of posi tive fluorescence exhibiting P-ANCA orC-ANCA patterns alone is not specific for the diagnosis ofWegener's Granulomatosis (WG) or microscopic polyangiitis.Decisions about treatment should not be based solely onANCA IFA results. The [employer] ANCA Group Consensusrecommends follow up testing of positive sera with both ID-3 and MPO-ANCA enzyme immunoassays. As many as 5% serumsamples are positive only by EIA. Ref. AM J Clin [id number];111:507-513. Serum tissue transglutaminas e IgA antibody assay (units/volume)on 02-07-2022 tTG IgA Qn (S) Not Reportable [facility] Work Phone: Thin prep Papanicolaou smear with manual screeningon 02-07-2022 Thin prep Papanicolaou smear with manual screening 14 U/L 15-37 [facility] Work Phone: Thin prep Papanicolaou smear with manual screening 8 5-15 [facility] Work Phone: Thin prep Papanicolaou smear with manual screening 1.2 0.7-1.7 [facility] Work Phone: Total protein bloodon 2021 Protein [Mass/Vol] 7.4 g/dL 6.0-8.5 [facility] Work Phone: Absolute lymphocyte counton 01-24-2022 Lymphocytes Auto (Unsp spec) [#/Vol] 2.42 10*3/uL 0.83-4.51 [facility] Work Phone: Basophil percentageon 2021 Basophils/100 WBC (Bld) 0.6 % 0-1 [facility] Work Phone: Chloride [Moles/Vol] 106 mmol/L 98-[address] [facility] Work Phone: Eosinophils/100 WBC (Bld) 1.2 % 0-5 [facility] Work Phone: Glucose [Mass/Vol] 93 mg/dL 74-106 [facility] Work Phone: Neutrophils (Bld) [#/Vol] 3.7 10*3/uL 2.0-7.7 [facility] Work Phone: Neutrophils/100 WBC (Bld) 54.5 % 47-70 [facility] Work Phone: Potassium [Moles/Vol] 4.0 mmol/L 3.5-5.1 [facility] Work Phone: Sodium [Moles/Vol] 141 mmol/L 136-145 [facility] Work Phone: WBC (Bld) [#/Vol] 6.9 10*3/uL 4.4-11.0 [facility] Work Phone: Blood erythrocytes count (nu mber/volume)on 01-24-2022 RBC (Bld) [#/Vol] 4.23 10*6/uL 4.2-5.4 [facility] Work Phone: Blood hemoglobin measurement (mass/volume)on 01-24-2022 Hemoglobin (Bld) [Mass/Vol] 12.9 g/dL 12.0-15.0 [facility] Work Phone: Blood lymphocytes/100 leukoc yteson 01-24-2022 Lymphocytes/100 WBC (Bld) 35.3 % 19-41 [facility] Work Phone: Blood monocytes/100 leukocyt eson 01-24-2022 Monocytes/100 WBC (Bld) 8.0 % 0-10 [facility] Work Phone: Blood platelet mean volumeon 01-24-2022 Platelet mean volume (Bld) [Entitic vol] 8.8 fL 6.2-12.0 [facility] Work Phone: Determination of erythrocyte mean corpuscular volume (MCV)on 01-24-2022 MCV (RBC) [Entitic vol] 90.5 fL 81-99 [facility] Work Phone: Hematocrit Auto (Bld) [Volum e fraction]on 01-24-2022 Hematocrit (Bld) [Volume fraction] 38.3 % 37-47 [facility] Work Phone: INR in Blood by Coagulation assayon 01-24-2022 INR Coag (Bld) [Relative time] 1.0 {INR} [facility] Work Phone: Laboratory - Chemistry and C hemistry - challengeon 01-24-2022 CO2 [Moles/Vol] 27.0 mmol/L 21.0-32.0 [facility] Work Phone: Urea nitrogen/Creatinine [Mass ratio] 9.7 mg/mg 10-20 [facility] Work Phone: Laboratory - Coagulationon 0 01-24-2022 aPTT Coag (Bld) [Time] 34.1 s 24.1-36.2 [facility] Work Phone: PT Coag (PPP) [Time] 12.5 s 11.7-14.[address] [facility] Work Phone: Laboratory - Hematology and Cell countson 01-24-2022 Erythrocyte distribution width (RBC) [Entitic vol] 41.5 fL 35.1-43.9 [facility] Work Phone: Erythrocyte distribution width (RBC) [Ratio] 12.6 % 11.6-14.6 [facility] Work Phone: Immature granulocytes/100 WBC (Bld) 0.400 % 0.0-0.9 [facility] Work Phone: Comment on above: IG% - Immature Granu locytes (promyelocytes, myelocytes and metamyelocytes) > 1% indicates that a LEFT SHIFT is Present. MCH (RBC) [Entitic mass] 30.5 pg 27.0-32.0 [facility] Work Phone: Nucleated RBC/100 WBC (Bld) [Ratio] 0 % 0-5 [facility] Work Phone: MCHC Auto (RBC) [Mass/Vol]on 01-24-2022 MCHC (RBC) [Mass/Vol] 33.7 g/dL 32-36 [facility] Work Phone: No Panel Informationon 01-24 Estimated Creatinine Clearance Calc 67.85 ml/min [facility] Work Phone: Estimated GFR (MDRD) Amer 87 mL/min >60 [facility] Work Phone: Comment on above: GFR Calc Estimated GFR (MDRD) Non-Af Amer 72 mL/min >60 [facility] Work Phone: Comment on above: Non- GFR Calc Platelets bldon 01-24-2022 Platelets (Bld) [#/Vol] 423 10*3/uL 150-450 [facility] Work Phone: Serum or plasma calcium angie urement (mass/volume)on 01-24-2022 Calcium [Mass/Vol] 9.3 mg/dL 8.5-10.1 [facility] Work Phone: Serum or plasma creatinine m easurement (mass/volume)on 01-24-2022 Creatinine [Mass/Vol] 0.93 mg/dL 0.55-1.02 [facility] Work Phone: Comment on above: The validity of the calculated GFR & GFRAA in patients over 70 years has not been determined. Clinical correlation is essential. Serum or plasma urea nitroge n measurement (mass/volume)on 01-24-2022 Urea nitrogen [Mass/Vol] 9 mg/dL 7-18 [facility] Work Phone: Thin prep Papanicolaou smear with manual screeningon 01-24-2022 Thin prep Papanicolaou smear with manual screening 8 5-15 [facility] Work Phone: Absolute lymphocyte counton 01-01-2022 Lymphocytes Auto (Unsp spec) [#/Vol] 2.17 10*3/uL 0.83-4.51 [facility] Work Phone: Basophil percentageon 2021 Basophils/100 WBC (Bld) 0.5 % 0-1 [facility] Work Phone: Bilirubin [Mass/Vol] 0.30 mg/dL 0.20-1.[address] [facility] Work Phone: Comment on above: For patients on eltr ombopag therapy, use of Dimension [place] TBIL is not recommended. Chloride [Moles/Vol] 107 mmol/L 98-[address] [facility] Work Phone: [phone] Eosinophils/100 WBC (Bld) 1.7 % 0-5 [facility] Work Phone: Glucose [Mass/Vol] 102 mg/dL 74-106 [facility] Work Phone: Comment on above: Fasting Glucose resu lt from 100 to 125 mg/dL suggests IMPAIRED HOMEOSTASIS per A.D.A. criteria. Neutrophils (Bld) [#/Vol] 3.1 10*3/uL 2.0-7.7 [facility] Work Phone: Neutrophils/100 WBC (Bld) 51.3 % 47-70 [facility] Work Phone: Potassium [Moles/Vol] 3.8 mmol/L 3.5-5.[address] [facility] Work Phone: Protein [Mass/Vol] 7.4 g/dL 6.4-8.2 [facility] Work Phone: Sodium [Moles/Vol] 137 mmol/L 136-145 [facility] Work Phone: WBC (Bld) [#/Vol] 6.0 10*3/uL 4.4-11.0 [facility] Work Phone: Basophil percentage 0-5 SEEN /hpf 0-5 [facility] Work Phone: Bilirubin Test strip Ql (U)o n 01-01-2022 Bilirubin Ql (U) Negative Negative [facility] Work Phone: Blood erythrocytes count (nu mber/volume)on 01-01-2022 RBC (Bld) [#/Vol] 4.52 10*6/uL 4.2-5.4 [facility]: Blood hemoglobin measurement (mass/volume)on 01-01-2022 Hemoglobin (Bld) [Mass/Vol] 13.9 g/dL 12.0-15.0 [facility] Work Phone: Blood lymphocytes/100 leukoc yteson 01-01-2022 Lymphocytes/100 WBC (Bld) 36.4 % 19-41 [facility] Work Phone: Blood monocytes/100 leukocyt eson 01-01-2022 Monocytes/100 WBC (Bld) 9.6 % 0-10 [facility] Work Phone: [phone] Blood platelet mean volumeon 01-01-2022 Platelet mean volume (Bld) [Entitic vol] 9.2 fL 6.2-12.0 [facility] Work Phone: Determination of erythrocyte mean corpuscular volume (MCV)on 01-01-2022 MCV (RBC) [Entitic vol] 91.2 fL 81-99 [facility] Work Phone: Direct bilirubinon Bilirubin.direct [Mass/Vol] 0.10 mg/dL 0.00-0.30 [facility] Work Phone: Hematocrit Auto (Bld) [Volum e fraction]on 01-01-2022 Hematocrit (Bld) [Volume fraction] 41.2 % 37-47 [facility] Work Phone: Ketones Test strip Ql (U)on 01-01-2022 Ketones Ql (U) 5 mg/dl Negative [facility] Work Phone: Laboratory - Chemistry and C hemistry - challengeon 01-01-2022 ALP [Catalytic activity/Vol] 70 U/L 45-117 [facility] Work Phone: ALT [Catalytic activity/Vol] 36 U/L 13-56 [facility] Work Phone: CO2 [Moles/Vol] 26.0 mmol/L 21.0-32.0 [facility] Work Phone: Globulin (S) [Mass/Vol] 3.8 g/dL 2.2-4.2 [facility] Work Phone: Lipase [Catalytic activity/Vol] 60 U/L 73-393 [facility]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 metamyelocytes) > 1% indicates that a LEFT SHIFT is Present. MCH (RBC) [Entitic mass] 31.3 pg 27.0-32.0 [facility] Work Phone: Nucleated RBC/100 WBC (Bld) [Ratio] 0 % 0-5 [facility] Work Phone: MCHC Auto (RBC) [Mass/Vol]on 09-26-2021 MCHC (RBC) [Mass/Vol] 34.1 g/dL 32-36 [facility] Work Phone: Mucus LM Ql (Urine sed)on Mucus Ql (Urine sed) 1+ /hpf [facility] Work Phone: Nitrite Test strip Ql (U)on 09-26-2021 Nitrite Ql (U) Negative Negative [facility] Work Phone: No Panel Informationon 09-26 MDMA (Ecstasy) Screen Negative < 500 ng/mL [facility] Work Phone: Urine Barbiturates Screen Negative < 200 ng/mL [facility] Work Phone: Urine Drug Screen Comment [facility] Work Phone: Comment on above: CONFIRMATORY TESTING FOR ALL POSITIVE URINE DRUG SCREENRESULTS WILL ONLY BE SENT OUT UPON PHYSICIAN ORDER. VISTA Urine Drug Screen methods provide only preliminaryanalytical test results. A more specific alternate chemicalmethod must be used in order to obtain a confirmedanalytical result. Gas chromatography/mass spectrometery(GC/MS) is the preferred confirmatory method. Clinicalconsideration and professional judgement should be appliedto any drug of abuse test result, particularly whenpreliminary positive results are used. URINE TCA TESTING MUST BE ORDERED SEPARATELY. USE TESTMNEMONIC: [facility] Urine Methadone Screen Negative < 300 ng/mL [facility] Work Phone: Estimated Creatinine Clearance Calc 60.11 ml/min [facility] Work Phone: Estimated GFR (MDRD) Amer 75 mL/min >60 [facility] Work Phone: Comment on above: GFR Calc Estimated GFR (MDRD) Non-Af Amer 62 mL/min >60 [facility] Work Phone: Comment on above: Non- GFR Calc Platelets bldon 09-26-2021 Platelets (Bld) [#/Vol] 422 10*3/uL 150-450 [facility] Work Phone: Protein Test strip Ql (U)on 09-26-2021 Protein Ql (U) 15 mg/dl Negative [facility] Work Phone: Serum or plasma albumin angie urement (mass/volume)on 09-26-2021 Albumin [Mass/Vol] 3.9 g/dL 3.2-5.0 [facility] Work Phone: Serum or plasma albumin/glob ulin mass ratioon 09-26-2021 Albumin/Globulin [Mass ratio] 1.1 {ratio} 0.9-2.4 [facility] Work Phone: Serum or plasma calcium angie urement (mass/volume)on 09-26-2021 Calcium [Mass/Vol] 8.9 mg/dL 8.5-10.1 [facility] Work Phone: Serum or plasma creatinine m easurement (mass/volume)on 09-26-2021 Creatinine [Mass/Vol] 1.06 mg/dL 0.55-1.02 [facility] Work Phone: Comment on above: The validity of the calculated GFR & GFRAA in patients over 70 years has not been determined. Clinical correlation is essential. Serum or plasma urea nitroge n measurement (mass/volume)on 09-26-2021 Urea nitrogen [Mass/Vol] 11 mg/dL -18 [facility] Work Phone: Squamous epithelial cells de tection in urine sediment by light microscopyon 09-26-2021 Epithelial cells.squamous LM Ql (Urine sed) 0-5 SEEN /hpf 5-10 [facility] Work Phone: Thin prep Papanicolaou smear with manual screeningon 09-26-2021 Thin prep Papanicolaou smear with manual screening 14 U/L 15-37 [facility] Work Phone: Thin prep Papanicolaou smear with manual screening 5 5-15 [facility] Work Phone: Urine blood detectionon 09-09 RBC Ql (U) 10 /ul Negative [facility] Work Phone: RBC Ql (U) 0-5 SEEN /hpf 0-5 [facility] Work Phone: Urine clarityon 09-26-2021 Clarity (U) Clear Clear [facility] Work Phone: Urine color determinationon 09-26-2021 Color (U) Yellow Yellow [facility] Work Phone: Urine glucose detectionon Glucose Ql (U) Normal mg/dl Normal [facility] Work Phone: Urine leukocyte esterase det ection by dipstickon 09-26-2021 Leukocyte esterase Test strip Ql (U) 25 /ul Negative [facility] Work Phone: Urine pHon 09-26-2021 pH (U) 6.0 [pH] 5.0 - 8.0 [facility] Work Phone: Urine phencyclidine (PCP) de tectionon 09-26-2021 Phencyclidine Ql (U) Negative < 25 ng/mL [facility] Work Phone: Urine sediment bacteria coun t by microscopy (number/high power field)on 09-26-2021 Bacteria LM.HPF (Urine sed) [#/Area] 0 /[HPF] None Seen [facility] Work Phone: Urine specific gravity measu rementon 09-26-2021 Specific gravity (U) [Rel density] 1.020 1.002-1.030 [facility] Work Phone: Urobilinogen Auto test strip Ql (U)on 09-26-2021 Urobilinogen Ql (U) Normal mg/dl Normal [facility] Work Phone: Absolute lymphocyte counton 06-20-2021 Lymphocytes Auto (Unsp spec) [#/Vol] 1.99 10*3/uL 0.83-4.51 [facility] Work Phone: Basophil percentageon 2021 Basophils/100 WBC (Bld) 0.8 % 0-1 [facility] Work Phone: Chloride [Moles/Vol] 109 mmol/L 98-[address] [facility] [address] [facility] Work Phone: Eosinophils/100 WBC (Bld) 0.8 % 0-5 [facility] Work Phone: Glucose [Mass/Vol] 86 mg/dL 74-106 [facility] Work Phone: Neutrophils (Bld) [#/Vol] 3.7 10*3/uL 2.0-7.7 [facility] Work Phone: [phone] Neutrophils/100 WBC (Bld) 58.9 % 47-70 [facility] Work Phone: Potassium [Moles/Vol] 4.0 mmol/L 3.5-5.1 [facility] Work Phone: Sodium [Moles/Vol] 139 mmol/L 136-145 [facility] Work Phone: WBC (Bld) [#/Vol] 6.3 10*3/uL 4.4-11.0 [facility] Work Phone: Basophil percentage 0-5 SEEN /hpf [facility] Work Phone: Beta hCG serum qualon 2021 Beta HCG ( test) Ql Negative [facility] Work Phone: Bilirubin Test strip Ql (U)o n 06-20-2021 Bilirubin Ql (U) Negative Negative [facility] Work Phone: Blood erythrocytes count (nu mber/volume)on 06-20-2021 RBC (Bld) [#/Vol] 3.97 10*6/uL 4.2-5.4 [facility]: Blood hemoglobin measurement (mass/volume)on 06-20-2021 Hemoglobin (Bld) [Mass/Vol] 12.5 g/dL 12.0-15.0 [facility] Work Phone: Blood lymphocytes/100 leukoc yteson 06-20-2021 Lymphocytes/100 WBC (Bld) 31.7 % 19-41 [facility] Work Phone: Blood monocytes/100 leukocyt eson 06-20-2021 Monocytes/100 WBC (Bld) 7.5 % 0-10 [facility] Work Phone: Blood platelet mean volumeon 06-20-2021 Platelet mean volume (Bld) [Entitic vol] 9.4 fL 6.2-12.0 [facility] Work Phone: Determination of erythrocyte mean corpuscular volume (MCV)on 06-20-2021 MCV (RBC) [Entitic vol] 91.4 fL 81-99 [facility] Work Phone: Hematocrit Auto (Bld) [Volum e fraction]on 06-20-2021 Hematocrit (Bld) [Volume fraction] 36.3 % 37-47 [facility] Work Phone: Ketones Test strip Ql (U)on 06-20-2021 Ketones Ql (U) 5 mg/dl Negative [facility] Work Phone: Laboratory - Chemistry and C hemistry - challengeon 06-20-2021 CO2 [Moles/Vol] 25.0 mmol/L 21.0-32.0 [facility] Work Phone: Urea nitrogen/Creatinine [Mass ratio] 12.9 mg/mg 10-20 [facility] Work Phone: Laboratory - Drug toxicology on 06-20-2021 Amphetamines Ql (U) Negative [facility] Work Phone: Benzodiazepines Ql (U) Negative [facility] Work Phone: Cannabinoids Screen Ql (U) Positive [facility] Work Phone: Cocaine Ql (U) Negative [facility] Work Phone: Opiates Ql (U) Negative [facility] Work Phone: Laboratory - Hematology and Cell countson 06-20-2021 Erythrocyte distribution width (RBC) [Entitic vol] 44.8 fL 35.1-43.9 [facility] Work Phone: Erythrocyte distribution width (RBC) [Ratio] 13.2 % 11.6-14.6 [facility] Work Phone: Immature granulocytes/100 WBC (Bld) 0.300 % 0.0-0.9 [facility] Work Phone: Comment on above: IG% - Immature Granu locytes (promyelocytes, myelocytes and metamyelocytes) > 1% indicates that a LEFT SHIFT is Present. MCH (RBC) [Entitic mass] 31.5 pg 27.0-32.0 [facility] Work Phone: Nucleated RBC/100 WBC (Bld) [Ratio] 0 % 0-5 [facility] Work Phone: MCHC Auto (RBC) [Mass/Vol]on 06-20-2021 MCHC (RBC) [Mass/Vol] 34.4 g/dL 32-36 [facility] Work Phone: Mucus LM Ql (Urine sed)on Mucus Ql (Urine sed) RARE /hpf [facility] Work Phone: Nitrite Test strip Ql (U)on 06-20-2021 Nitrite Ql (U) Negative Negative [facility] Work Phone: No Panel Informationon 06-20 Estimated Creatinine Clearance Calc 68.51 ml/min [facility] Work Phone: Estimated GFR (MDRD) Amer 87 mL/min >60 [facility] Work Phone: Comment on above: GFR Calc Estimated GFR (MDRD) Non-Af Amer 72 mL/min >60 [facility] Work Phone: Comment on above: Non- GFR Calc Urine Barbiturates Screen Negative [facility] Work Phone: Urine Drug Screen Comment [facility] Work Phone: Comment on above: CONFIRMATORY TESTING FOR ALL POSITIVE URINE DRUG SCREENRESULTS WILL ONLY BE SENT OUT UPON PHYSICIAN ORDER. VISTA Urine Drug Screen methods provide only preliminaryanalytical test results. A more specific alternate chemicalmethod must be used in order to obtain a confirmedanalytical result. Gas chromatography/mass spectrometery(GC/MS) is the preferred confirmatory method. Clinicalconsideration and professional judgement should be appliedto any drug of abuse test result, particularly whenpreliminary positive results are used. URINE TCA TESTING MUST BE ORDERED SEPARATELY. USE TESTMNEMONIC: [facility] Urine Methadone Screen Negative [facility] Work Phone: Urine Methamphetamine-MDMA Screen Negative [facility] Work Phone: Platelets bldon 06-20-2021 Platelets (Bld) [#/Vol] 338 10*3/uL 150-450 [facility] Work Phone: Protein Test strip Ql (U)on 06-20-2021 Protein Ql (U) Negative Negative [facility] Work Phone: Serum or plasma calcium angie urement (mass/volume)on 06-20-2021 Calcium [Mass/Vol] 8.9 mg/dL 8.5-10.1 [facility] Work Phone: Serum or plasma creatinine m easurement (mass/volume)on 06-20-2021 Creatinine [Mass/Vol] 0.93 mg/dL 0.55-1.02 [facility] Work Phone: Comment on above: The validity of the calculated GFR & GFRAA in patients over 70 years has not been determined. Clinical correlation is essential. Serum or plasma urea nitroge n measurement (mass/volume)on 06-20-2021 Urea nitrogen [Mass/Vol] 12 mg/dL 7-18 [facility] Work Phone: Squamous epithelial cells de tection in urine sediment by light microscopyon 06-20-2021 Epithelial cells.squamous LM Ql (Urine sed) 0-5 SEEN /hpf [facility] Work Phone: Thin prep Papanicolaou smear with manual screeningon 06-20-2021 Thin prep Papanicolaou smear with manual screening 5 5-15 [facility] Work Phone: Urine blood detectionon 02-0 RBC Ql (U) Negative Negative [facility] Work Phone: RBC Ql (U) 0 SEEN /hpf [facility] Work Phone: Urine clarityon 06-20-2021 Clarity (U) Sl. Cloudy Clear [facility] Work Phone: Urine color determinationon 06-20-2021 Color (U) Yellow Yellow [facility] Work Phone: Urine glucose detectionon Glucose Ql (U) Normal mg/dl Normal [facility] Work Phone: Urine leukocyte esterase det ection by dipstickon 06-20-2021 Leukocyte esterase Test strip Ql (U) 25 /ul Negative [facility] Work Phone: Urine pHon 06-20-2021 pH (U) 6.0 [pH] [facility] Work Phone: Urine phencyclidine (PCP) de tectionon 06-20-2021 Phencyclidine Ql (U) Negative [facility] Work Phone: Urine sediment bacteria coun t by microscopy (number/high power field)on 06-20-2021 Bacteria LM.HPF (Urine sed) [#/Area] 0 /[HPF] None Seen [facility] Work Phone: Urine specific gravity measu rementon 06-20-2021 Specific gravity (U) [Rel density] 1.020 [facility] Work Phone: Urobilinogen Auto test strip Ql (U)on 06-20-2021 Urobilinogen Ql (U) Normal mg/dl Normal [facility] Work Phone: XR Thoracic spine AP and Lat eralon 05-22-2021 Radiology Study observation (narrative) [facility] IMPRESSION: Preservation of vertebral body height. Primary Education Professor: DIEGO Transcribe Date/Time: May 22 2021 9:26A Dictated by : JACOB STARK MD This examination was interpreted and the report reviewed and electronically signed by: JACOB STARK MD on May 22 2021 9:26AM [facility] DIVISION OF RADIOLOGY * * *Final Report* * * DATE OF EXAM: May 22 2021 9:18AM WOX [id number] - XR THORACIC 2V AP/LAT / PROCEDURE REASON: Acute bilateral thoracic back pain * * * * Physician Interpretation * * * * CLINICAL INDICATION: Back pain TECHNIQUE: AP and lateral radiographs of the thoracic spine COMPARISON: None FINDINGS: Preservation of vertebral body height. Pedicles appear intact. No abnormal paraspinal density. DIVISION OF RADIOLOGY Provider, [facility] - 05/22/2021 * * *Final Report* * * DATE OF EXAM: May 22 2021 9:18AM WOX [id number] - XR THORACIC 2V AP/LAT / PROCEDURE REASON: Acute bilateral thoracic back pain * * * * Physician Interpretation * * * * CLINICAL INDICATION: Back pain TECHNIQUE: AP and lateral radiographs of the thoracic spine COMPARISON: None FINDINGS: Preservation of vertebral body height. Pedicles appear intact. No abnormal paraspinal density. IMPRESSION IMPRESSION: Preservation of vertebral body height. Primary Education Professor: [facility] Transcribe Date/Time: May 22 2021 9:26A Dictated by : JACOB STARK MD This examination was interpreted and the report reviewed and electronically signed by: JACOB STARK MD on May 22 2021 9:26AM [facility] XR Thoracic spine AP and Lat eralOrdered By: Cc Provider on 05-22-2021 [facility] .Auto Diffon 05-03-2020 Ammonia (P) [Mass/Vol] 0.60 10 3/mcL Normal 0.09-1.40 [facility] ([place]) Comment on above: Performed By: #### L IPID, ADIFF, ANEU, BMP, CBC, GFR #### [address] [address] Basophils (Bld) [#/Vol] 0.10 10 3/mcL Normal 0.00-0.27 [facility] ([place]) Comment on above: Performed By: #### L IPID, ADIFF, ANEU, BMP, CBC, GFR #### [address] [address] Basophils/100 WBC (Bld) 0.7 % Normal 0.0-2.5 [facility] ([place]) Comment on above: Performed By: #### L IPID, ADIFF, ANEU, BMP, CBC, GFR #### [address] [address] Eosinophils (Bld) [#/Vol] 0.10 10 3/mcL Normal 0.00-0.65 [facility] ([place]) Comment on above: Performed By: #### L IPID, ADIFF, ANEU, BMP, CBC, GFR #### [address] [address] Eosinophils/100 WBC (Bld) 0.8 % Normal 0.0-6.0 [facility] ([place]) Comment on above: Performed By: #### L IPID, ADIFF, ANEU, BMP, CBC, GFR #### [address] [address] Lymphocytes (Bld) [#/Vol] 2.40 10 3/mcL Normal 0.90-4.32 [facility] ([place]) Comment on above: Performed By: #### L IPID, ADIFF, ANEU, BMP, CBC, GFR #### [address] [address] Lymphocytes/100 WBC (Bld) 29.4 % Normal 20.0-40.0 [facility] ([place]) Comment on above: Performed By: #### L IPID, ADIFF, ANEU, BMP, CBC, GFR #### [address] [address] Monocytes/100 WBC (Bld) 7.5 % Normal 2.0-13.0 [facility] ([place]) Comment on above: Performed By: #### L IPID, ADIFF, ANEU, BMP, CBC, GFR #### [address] [address] Neutrophils/100 WBC (Bld) 61.6 % Normal 50.0-75.0 [facility] ([place]) Comment on above: Performed By: #### L IPID, ADIFF, ANEU, BMP, CBC, GFR #### [address] [address] .GFRon 05-03-2020 GFR >60 [facility] ([place]) Comment on above: Result Comment: GFR Population mean for , Non- Americans Ages 20-29 = 116 mL/min/1.73 sq.m. Ages 30-39 = 107 mL/min/1.73 sq.m. Ages 40-49 = 99 mL/min/1.73 sq.m. Ages 50-59 = 93 mL/min/1.73 sq.m. Ages 60-69 = 85 mL/min/1.73 sq.m. Ages 70+ = 75 mL/min/1.73 sq.m. Chronic Kidney Disease: Less than 60 mL/min/1.73 square meters End Stage Renal Disease: Less than 15 mL/min/1.73 square meters Performed By: #### C MP, CBC, ADIFF, ANEU, GFR, LIP #### [place] [address] GFR Non- >60 Normal [facility] ([place] Comment on above: Result Comment: GFR Population mean for , Non- Americans Ages 20-29 = 116 mL/min/1.73 sq.m. Ages 30-39 = 107 mL/min/1.73 sq.m. Ages 40-49 = 99 mL/min/1.73 sq.m. Ages 50-59 = 93 mL/min/1.73 sq.m. Ages 60-69 = 85 mL/min/1.73 sq.m. Ages 70+ = 75 mL/min/1.73 sq.m. Chronic Kidney Disease: Less than 60 mL/min/1.73 square meters End Stage Renal Disease: Less than 15 mL/min/1.73 square meters Performed By: #### C MP, CBC, ADIFF, ANEU, GFR, LIP #### [address] [address] .NEUABSon 05-03-2020 Neutrophils (Bld) [#/Vol] 5.10 10 3/mcL Normal 2.25-8.10 [facility] ([place]) Comment on above: Performed By: #### L IPID, ADIFF, ANEU, BMP, CBC, GFR #### [address] [address] BMPon 05-03-2020 Calcium [Mass/Vol] 7.5 mg/dL Low 8.4-10.1 [facility] ([place]) Comment on above: Result Comment: No te - New Reference Range in effect 19 Performed By: #### C MP, CBC, ADIFF, ANEU, GFR, LIP #### [place] [id number] Chloride [Moles/Vol] 112 mmol/L High 98-110 [facility] ([place]) Comment on above: Performed By: #### C MP, CBC, ADIFF, ANEU, GFR, LIP #### [address] [address] CO2 [Moles/Vol] 23 mmol/L Normal 22-32 [facility] ([place]) Comment on above: Performed By: #### C MP, CBC, ADIFF, ANEU, GFR, LIP #### [place] [id number] Creatinine [Mass/Vol] 0.82 mg/dL Normal 0.50-1.20 [facility] ([place]) Comment on above: Performed By: #### C MP, CBC, ADIFF, ANEU, GFR, LIP #### [address] [address] Electrolyte Balance 7.0 mEq/L Normal 4.0-15.0 [facility] ([place]) Comment on above: Performed By: #### C MP, CBC, ADIFF, ANEU, GFR, LIP #### [address] [address] Glucose [Mass/Vol] 86 mg/dL Normal 70-110 [facility] ([place]) Comment on above: Performed By: #### C MP, CBC, ADIFF, ANEU, GFR, LIP #### [address] [address] Potassium [Moles/Vol] 4.0 mmol/L Normal 3.5-5.0 [facility] ([place]) Comment on above: Performed By: #### C MP, CBC, ADIFF, ANEU, GFR, LIP #### [address] [address] Sodium [Moles/Vol] 142 mmol/L Normal 136-145 [facility] ([place] Comment on above: Performed By: #### C MP, CBC, ADIFF, ANEU, GFR, LIP #### [address] [address] Urea nitrogen [Mass/Vol] 7.0 mg/dL Low 8.0-22.0 [facility] ([place]) Comment on above: Performed By: #### C MP, CBC, ADIFF, ANEU, GFR, LIP #### [place] [id number] Urea nitrogen/Creatinine [Mass ratio] 8.5 ratio Low 10.0-22.0 [facility] ([place] Comment on above: Performed By: #### C MP, CBC, ADIFF, ANEU, GFR, LIP #### [place] [id number] CBCon 05-03-2020 Erythrocyte distribution width (RBC) [Ratio] 13.0 % Normal 11.5-15.5 [facility] ([place] Comment on above: Performed By: #### L IPID, ADIFF, ANEU, BMP, CBC, GFR #### [place] [id number] Hematocrit (Bld) [Volume fraction] 29.4 % Low 34.0-46.0 [facility] ([place] Comment on above: Performed By: #### L IPID, ADIFF, ANEU, BMP, CBC, GFR #### [address] [address] Hemoglobin (Bld) [Mass/Vol] 10.2 G/dL Low 12.0-16.0 [facility] ([place] Comment on above: Performed By: #### L IPID, ADIFF, ANEU, BMP, CBC, GFR #### [place] [id number] MCH (RBC) [Entitic mass] 31.0 pg Normal 27.0-33.0 [facility] ([place] Comment on above: Performed By: #### L IPID, ADIFF, ANEU, BMP, CBC, GFR #### [place] [id number] MCHC (RBC) [Mass/Vol] 34.7 G/dL Normal 32.0-36.0 [facility] ([place]) Comment on above: Performed By: #### L IPID, ADIFF, ANEU, BMP, CBC, GFR #### [place] [id number] MCV (RBC) [Entitic vol] 89.4 fL Normal 80.0-99.0 [facility] ([place] Comment on above: Performed By: #### L IPID, ADIFF, ANEU, BMP, CBC, GFR #### [place] [id number] Platelet mean volume (Bld) [Entitic vol] 6.8 fL Normal 6.6-10.5 [facility] ([place] Comment on above: Performed By: #### L IPID, ADIFF, ANEU, BMP, CBC, GFR #### [place] [id number] Platelets (Bld) [#/Vol] 278 10 3/mcL Normal 150-450 [facility] ([place] Comment on above: Performed By: #### L IPID, ADIFF, ANEU, BMP, CBC, GFR #### [place] [id number] RBC (Bld) [#/Vol] 3.29 10 6/mcL Low 4.10-5.30 [facility] ([place]) Comment on above: Performed By: #### L IPID, ADIFF, ANEU, BMP, CBC, GFR #### [place] [id number] WBC (Bld) [#/Vol] 8.30 10 3/mcL Normal 4.50-10.80 [facility] ([place]) Comment on above: Performed By: #### L IPID, ADIFF, ANEU, BMP, CBC, GFR #### [place] [id number] LIPIDon 05-03-2020 Cholesterol [Mass/Vol] 175 mg/dL Normal 50-199 [facility] ([place]) Comment on above: Result Comment: Chol esterol Reference Interval: Less than 200 Desirable 200-239 Borderline high risk 240 and above High risk Performed By: #### C MP, CBC, ADIFF, ANEU, GFR, LIP #### [place] [address] Cholesterol in HDL [Mass/Vol] 32 mg/dL Low 40-59 [facility] ([place] Comment on above: Performed By: #### C MP, CBC, ADIFF, ANEU, GFR, LIP #### [place] [address] Cholesterol in LDL [Mass/Vol] 77 mg/dL Normal 0-129 [facility] ([place] Comment on above: Performed By: #### C MP, CBC, ADIFF, ANEU, GFR, LIP #### [place] [address] Triglyceride [Mass/Vol] 329 mg/dL High 3-149 [facility] ([place]) Comment on above: Performed By: #### C MP, CBC, ADIFF, ANEU, GFR, LIP #### [place] [id number] .Auto Diffon 05-02-2020 Ammonia (P) [Mass/Vol] 0.30 10 3/mcL Normal 0.09-1.40 [facility] ([place] Comment on above: Performed By: #### C MP, CBC, ADIFF, ANEU, GFR, LIP #### [place] [id number] Basophils (Bld) [#/Vol] 0.00 10 3/mcL Normal 0.00-0.27 [facility] ([place]) Comment on above: Performed By: #### C MP, CBC, ADIFF, ANEU, GFR, LIP #### [place] [id number] Basophils/100 WBC (Bld) 0.6 % Normal 0.0-2.5 [facility] ([place] Comment on above: Performed By: #### C MP, CBC, ADIFF, ANEU, GFR, LIP #### [address] [address] Eosinophils (Bld) [#/Vol] 0.00 10 3/mcL Normal 0.00-0.65 [facility] ([place]) Comment on above: Performed By: #### C MP, CBC, ADIFF, ANEU, GFR, LIP #### [address] [address] Eosinophils/100 WBC (Bld) 0.2 % Normal 0.0-6.0 [facility] ([place]) Comment on above: Performed By: #### C MP, CBC, ADIFF, ANEU, GFR, LIP #### [address] [address] Lymphocytes (Bld) [#/Vol] 2.20 10 3/mcL Normal 0.90-4.32 [facility] ([place]) Comment on above: Performed By: #### C MP, CBC, ADIFF, ANEU, GFR, LIP #### [address] [address] Lymphocytes/100 WBC (Bld) 35.9 % Normal 20.0-40.0 [facility] ([place]) Comment on above: Performed By: #### C MP, CBC, ADIFF, ANEU, GFR, LIP #### [address] [address] Monocytes/100 WBC (Bld) 4.1 % Normal 2.0-13.0 [facility] ([place]) Comment on above: Performed By: #### C MP, CBC, ADIFF, ANEU, GFR, LIP #### [address] [address] Neutrophils/100 WBC (Bld) 59.2 % Normal 50.0-75.0 [facility] ([place]) Comment on above: Performed By: #### C MP, CBC, ADIFF, ANEU, GFR, LIP #### [address] [address] .NEUABSon 05-02-2020 Neutrophils (Bld) [#/Vol] 3.70 10 3/mcL Normal 2.25-8.10 [facility] ([place]) Comment on above: Performed By: #### C MP, CBC, ADIFF, ANEU, GFR, LIP #### [place] [address] Angelina 05-02-2020 Ethanol Level 177.0 mg/dL Normal [facility] ([place]) Comment on above: Performed By: #### C MP, CBC, ADIFF, ANEU, GFR, LIP #### [place] [id number] APTTon 05-02-2020 aPTT Coag (Bld) [Time] None Normal [facility] ([place]) Comment on above: Performed By: #### C MP, CBC, ADIFF, ANEU, GFR, LIP #### [place] [address] aPTT Coag (Bld) [Time] 32.6 s Normal 25.0-35.0 [facility] ([place]) Comment on above: Result Comment: For Heparin anticoagulation therapy, the recommended therapeutic range is: 54-77 seconds (APTT Correlation with Anti-Xa therapeutic range of 0.3-0.7 units/ml). PLEASE REFERENCE THE PHARMACY PROTOCOL FOR DOSING. Performed By: #### C MP, CBC, ADIFF, ANEU, GFR, LIP #### [place] [id number] CBCon 05-02-2020 Erythrocyte distribution width (RBC) [Ratio] 13.1 % Normal 11.5-15.5 [facility] ([place] Comment on above: Performed By: #### C MP, CBC, ADIFF, ANEU, GFR, LIP #### [place] [address] Hematocrit (Bld) [Volume fraction] 37.9 % Normal 34.0-46.0 [facility] ([place] Comment on above: Performed By: #### C MP, CBC, ADIFF, ANEU, GFR, LIP #### [place] [address] Hemoglobin (Bld) [Mass/Vol] 12.7 G/dL Normal 12.0-16.0 [facility] ([place] Comment on above: Performed By: #### C MP, CBC, ADIFF, ANEU, GFR, LIP #### [address] [address] MCH (RBC) [Entitic mass] 30.5 pg Normal 27.0-33.0 [facility] ([place] Comment on above: Performed By: #### C MP, CBC, ADIFF, ANEU, GFR, LIP #### [address] [address] MCHC (RBC) [Mass/Vol] 33.6 G/dL Normal 32.0-36.0 [facility] ([place]) Comment on above: Performed By: #### C MP, CBC, ADIFF, ANEU, GFR, LIP #### [place] [id number] MCV (RBC) [Entitic vol] 90.9 fL Normal 80.0-99.0 [facility] ([place] Comment on above: Performed By: #### C MP, CBC, ADIFF, ANEU, GFR, LIP #### [place] [id number] Platelet mean volume (Bld) [Entitic vol] 6.8 fL Normal 6.6-10.5 [facility] ([place] Comment on above: Performed By: #### C MP, CBC, ADIFF, ANEU, GFR, LIP #### [address] [address] Platelets (Bld) [#/Vol] 342 10 3/mcL Normal 150-450 [facility] ([place] Comment on above: Performed By: #### C MP, CBC, ADIFF, ANEU, GFR, LIP #### [address] [address] RBC (Bld) [#/Vol] 4.17 10 6/mcL Normal 4.10-5.30 [facility] ([place]) Comment on above: Performed By: #### C MP, CBC, ADIFF, ANEU, GFR, LIP #### [place] [id number] WBC (Bld) [#/Vol] 6.30 10 3/mcL Normal 4.50-10.80 [facility] ([place]) Comment on above: Performed By: #### C MP, CBC, ADIFF, ANEU, GFR, LIP #### [place] [address] PROon 05-02-2020 INR Coag (PPP) [Relative time] 1.1 {INR} Normal [facility] ([place]) Comment on above: Result Comment: The [employer] (CHEST, 1992, 102:312S-25S) recommended therapeutic range for oral anticoagulant therapy is: LOW RISK: Prophylaxis of venous thrombosis INR: 2.0-3.0 Treatment of pulmonary embolism 2.0-3.0 Prevention of systemic embolism 2.0-3.0 HIGH RISK: Mechanical prosthetic valves 2.5-3.5 Performed By: #### C MP, CBC, ADIFF, ANEU, GFR, LIP #### [place] [address] PT Coag (PPP) [Time] 13.1 s Normal 9.0-14.8 [facility] ([place]) Comment on above: Result Comment: Effe ctive 11/24/07, Protime results may be affected by some antibiotics (i.e. Ciprofloxacin, Azithromycin, Bactrim) which may potentiate the action of oral anticoagulants, with further increases in Protime/INR. Performed By: #### C MP, CBC, ADIFF, ANEU, GFR, LIP #### [place] [address] [facility] ABO/Rh Interp Positive [facility] ([place]) Comment on above: Performed By: #### C MP, CBC, ADIFF, ANEU, GFR, LIP #### [place] [address] TABSon 05-02-2020 Antibody Screen Tango Negative Normal [facility] ([place]) Comment on above: Performed By: #### C MP, CBC, ADIFF, ANEU, GFR, LIP #### [place] [address] XR WRIST MINIMUM 3 VIEWS RIG HTon 05-02-2020 XR WRIST MINIMUM 3 VIEWS RIGHT ORIGINAL XR WRIST MINIMUM 3 VIEWS RIGHT 3 views CLINICAL STATEMENT: Cut wrist on glass bottle. Laceration to medial aspect of wrist. Comparison: Right hand x-ray 11/23/2018. FINDINGS: The bones of the wrist demonstrate normal alignment with no fracture or dislocation. There is remote deformity of the distal fifth metacarpal, similar to prior study. The carpal arcs are maintained. There are no suspicious osseous lesions. There is no periosteal reaction, erosive arthritis, or degenerative changes. The joint spaces are preserved. There are no radiopaque foreign bodies. IMPRESSION: No acute abnormalities. No evidence of radiopaque foreign body I have personally reviewed the images of this examination and agree with the resident's findings and interpretation. Interpreted By: Kalia Epps MD Preliminary Report By: Jani Goodwin DO Electronically Signed By: Kalia Epps MD Dictated Date: 05/02/2020 7:48:42 PM Prelim Date: 05/02/2020 7:51:04 PM Sign Date: 05/02/2020 8:19:00 PM Ordering Provider:Justo Heath [facility] ([place]) .Auto Diffon 12-26-2019 Ammonia (P) [Mass/Vol] 0.30 10 3/mcL Normal 0.09-1.40 [facility] ([place]) Comment on above: Performed By: #### C MP, CBC, ADIFF, ANEU, GFR, LIP #### [address] [address] Basophils (Bld) [#/Vol] 0.10 10 3/mcL Normal 0.00-0.27 [facility] ([place]) Comment on above: Performed By: #### C MP, CBC, ADIFF, ANEU, GFR, LIP #### [address] [address] Basophils/100 WBC (Bld) 1.3 % Normal 0.0-2.5 [facility] ([place] Comment on above: Performed By: #### C MP, CBC, ADIFF, ANEU, GFR, LIP #### [address] [address] Eosinophils (Bld) [#/Vol] 0.10 10 3/mcL Normal 0.00-0.65 [facility] ([place] Comment on above: Performed By: #### C MP, CBC, ADIFF, ANEU, GFR, LIP #### [address] [address] Eosinophils/100 WBC (Bld) 1.7 % Normal 0.0-6.0 [facility] ([place]) Comment on above: Performed By: #### C MP, CBC, ADIFF, ANEU, GFR, LIP #### [address] [address] Lymphocytes (Bld) [#/Vol] 1.70 10 3/mcL Normal 0.90-4.32 [facility] ([place]) Comment on above: Performed By: #### C MP, CBC, ADIFF, ANEU, GFR, LIP #### [address] [address] Lymphocytes/100 WBC (Bld) 38.8 % Normal 20.0-40.0 [facility] ([place] Comment on above: Performed By: #### C MP, CBC, ADIFF, ANEU, GFR, LIP #### [address] [address] Monocytes/100 WBC (Bld) 7.6 % Normal 2.0-13.0 [facility] ([place] Comment on above: Performed By: #### C MP, CBC, ADIFF, ANEU, GFR, LIP #### [address] [address] Neutrophils/100 WBC (Bld) 50.6 % Normal 50.0-75.0 [facility] ([place] Comment on above: Performed By: #### C MP, CBC, ADIFF, ANEU, GFR, LIP #### [address] [address] .GFRon 12-26-2019 GFR Non- >60 Normal [facility] ([place]) Comment on above: Result Comment: GFR Population mean for , Non- Americans Ages 20-29 = 116 mL/min/1.73 sq.m. Ages 30-39 = 107 mL/min/1.73 sq.m. Ages 40-49 = 99 mL/min/1.73 sq.m. Ages 50-59 = 93 mL/min/1.73 sq.m. Ages 60-69 = 85 mL/min/1.73 sq.m. Ages 70+ = 75 mL/min/1.73 sq.m. Chronic Kidney Disease: Less than 60 mL/min/1.73 square meters End Stage Renal Disease: Less than 15 mL/min/1.73 square meters Performed By: #### C MP, CBC, ADIFF, ANEU, GFR, LIP #### [address] [address] GFR >60 Normal [facility] ([place]) Comment on above: Result Comment: GFR Population mean for , Non- Americans Ages 20-29 = 116 mL/min/1.73 sq.m. Ages 30-39 = 107 mL/min/1.73 sq.m. Ages 40-49 = 99 mL/min/1.73 sq.m. Ages 50-59 = 93 mL/min/1.73 sq.m. Ages 60-69 = 85 mL/min/1.73 sq.m. Ages 70+ = 75 mL/min/1.73 sq.m. Chronic Kidney Disease: Less than 60 mL/min/1.73 square meters End Stage Renal Disease: Less than 15 mL/min/1.73 square meters Performed By: #### C MP, CBC, ADIFF, ANEU, GFR, LIP #### [address] [address] .NEUABSon 12-26-2019 Neutrophils (Bld) [#/Vol] 2.20 10 3/mcL Low 2.25-8.10 [facility] ([place]) Comment on above: Performed By: #### C MP, CBC, ADIFF, ANEU, GFR, LIP #### [address] [address] CBCon 12-26-2019 Erythrocyte distribution width (RBC) [Ratio] 13.3 % Normal 11.5-15.5 [facility] ([place] Comment on above: Performed By: #### C MP, CBC, ADIFF, ANEU, GFR, LIP #### [address] [address] Hematocrit (Bld) [Volume fraction] 38.3 % Normal 34.0-46.0 [facility] ([place]) Comment on above: Performed By: #### C MP, CBC, ADIFF, ANEU, GFR, LIP #### [place] [id number] Hemoglobin (Bld) [Mass/Vol] 13.2 G/dL Normal 12.0-16.0 [facility] ([place] Comment on above: Performed By: #### C MP, CBC, ADIFF, ANEU, GFR, LIP #### [place] [id number] MCH (RBC) [Entitic mass] 31.1 pg Normal 27.0-33.0 [facility] ([place] Comment on above: Performed By: #### C MP, CBC, ADIFF, ANEU, GFR, LIP #### [place] [id number] MCHC (RBC) [Mass/Vol] 34.4 G/dL Normal 32.0-36.0 [facility] ([place]) Comment on above: Performed By: #### C MP, CBC, ADIFF, ANEU, GFR, LIP #### [place] [id number] MCV (RBC) [Entitic vol] 90.3 fL Normal 80.0-99.0 [facility] ([place] Comment on above: Performed By: #### C MP, CBC, ADIFF, ANEU, GFR, LIP #### [place] [id number] Platelet mean volume (Bld) [Entitic vol] 7.2 fL Normal 6.6-10.5 [facility] ([place] Comment on above: Performed By: #### C MP, CBC, ADIFF, ANEU, GFR, LIP #### [place] [id number] Platelets (Bld) [#/Vol] 318 10 3/mcL Normal 150-450 [facility] ([place] Comment on above: Performed By: #### C MP, CBC, ADIFF, ANEU, GFR, LIP #### [place] [id number] RBC (Bld) [#/Vol] 4.24 10 6/mcL Normal 4.10-5.30 [facility] ([place]) Comment on above: Performed By: #### C MP, CBC, ADIFF, ANEU, GFR, LIP #### [address] [address] WBC (Bld) [#/Vol] 4.30 10 3/mcL Low 4.50-10.80 [facility] ([place]) Comment on above: Performed By: #### C MP, CBC, ADIFF, ANEU, GFR, LIP #### [address] [address] CMPon 12-26-2019 Albumin [Mass/Vol] 3.8 G/dL Normal 3.2-4.8 [facility] ([place]) Comment on above: Performed By: #### C MP, CBC, ADIFF, ANEU, GFR, LIP #### [place] [id number] Albumin/Globulin [Mass ratio] 1.2 {ratio} Normal 0.9-1.6 [facility] ([place]) Comment on above: Performed By: #### C MP, CBC, ADIFF, ANEU, GFR, LIP #### [address] [address] ALP [Catalytic activity/Vol] 68 U/L Normal 38-126 [facility] ([place] Comment on above: Performed By: #### C MP, CBC, ADIFF, ANEU, GFR, LIP #### [address] [address] ALT [Catalytic activity/Vol] 28 U/L Normal 10-49 [facility] ([place] Comment on above: Performed By: #### C MP, CBC, ADIFF, ANEU, GFR, LIP #### [address] [address] AST [Catalytic activity/Vol] 10 U/L Normal 8-34 [facility] ([place] Comment on above: Performed By: #### C MP, CBC, ADIFF, ANEU, GFR, LIP #### [place] [id number] Bili Total 0.3 mg/dL Normal 0.2-1.2 [facility] ([place] Comment on above: Result Comment: Use of this assay is not recommended for patients undergoing treatment with eltrombopag due to the potential for falsely elevated results. Performed By: #### C MP, CBC, ADIFF, ANEU, GFR, LIP #### [address] [address] Calcium [Mass/Vol] 8.6 mg/dL Normal 8.4-10.1 [facility] ([place] Comment on above: Result Comment: No te - New Reference Range in effect 19 Performed By: #### C MP, CBC, ADIFF, ANEU, GFR, LIP #### [place] [address] Chloride [Moles/Vol] 109 mmol/L Normal 98-110 [facility] ([place]) Comment on above: Performed By: #### C MP, CBC, ADIFF, ANEU, GFR, LIP #### [place] [id number] CO2 [Moles/Vol] 24 mmol/L Normal 22-32 [facility] ([place] Comment on above: Performed By: #### C MP, CBC, ADIFF, ANEU, GFR, LIP #### [address] [address] Creatinine [Mass/Vol] 0.78 mg/dL Normal 0.50-1.20 [facility] ([place] Comment on above: Performed By: #### C MP, CBC, ADIFF, ANEU, GFR, LIP #### [address] [address] Electrolyte Balance 6.0 mEq/L Normal 4.0-15.0 [facility] ([place]) Comment on above: Performed By: #### C MP, CBC, ADIFF, ANEU, GFR, LIP #### [address] [address] Globulin (S) [Mass/Vol] 3.2 G/dL Normal 1.5-3.8 [facility] ([place] Comment on above: Performed By: #### C MP, CBC, ADIFF, ANEU, GFR, LIP #### [address] [address] Glucose [Mass/Vol] 90 mg/dL Normal 70-110 [facility] ([place] Comment on above: Performed By: #### C MP, CBC, ADIFF, ANEU, GFR, LIP #### [address] [address] Potassium [Moles/Vol] 3.9 mmol/L Normal 3.5-5.0 [facility] ([place] Comment on above: Performed By: #### C MP, CBC, ADIFF, ANEU, GFR, LIP #### [address] [address] Protein [Mass/Vol] 7.0 G/dL Normal 6.0-8.5 [facility] ([place] Comment on above: Result Comment: No te - New Reference Range in effect 19 Performed By: #### C MP, CBC, ADIFF, ANEU, GFR, LIP #### [address] [address] Sodium [Moles/Vol] 139 mmol/L Normal 136-145 [facility] ([place] Comment on above: Performed By: #### C MP, CBC, ADIFF, ANEU, GFR, LIP #### [address] [address] Urea nitrogen [Mass/Vol] 11.0 mg/dL Normal 8.0-22.0 [facility] ([place] Comment on above: Performed By: #### C MP, CBC, ADIFF, ANEU, GFR, LIP #### [address] [address] Urea nitrogen/Creatinine [Mass ratio] 14.1 ratio Normal 10.0-22.0 [facility] ([place] Comment on above: Performed By: #### C MP, CBC, ADIFF, ANEU, GFR, LIP #### [address] [address] LIPon 12-26-2019 Lipase Level 26 U/L Normal 12-53 [facility] ([place] Comment on above: Result Comment: No te - New Reference Range in effect 19 Performed By: #### C MP, CBC, ADIFF, ANEU, GFR, LIP #### [address] [address] UAon 12-26-2019 Color (U) Yellow Normal [facility] ([place] Comment on above: Performed By: #### U A #### [place] [address] Glucose (U) [Mass/Vol] Negative Normal Negative [facility] ([place]) Comment on above: Performed By: #### U A #### [place] [address] Ketones Ql (U) Negative Normal Neg-Trace [facility] ([place] Comment on above: Performed By: #### U A #### [place] [address] UA Appear Clear Normal [facility] ([place] Comment on above: Performed By: #### U A #### [place] [address] UA Blood Negative Normal Neg-Trace [facility] ([place] Comment on above: Performed By: #### U A #### [place] [address] UA Leuk Est Negative Normal Negative [facility] ([place] Comment on above: Performed By: #### U A #### [place] [address] UA Nitrite Negative Normal Negative [facility] ([place] Comment on above: Performed By: #### U A #### [place] [address] UA pH 6.5 Normal 5.0 - 8.0 [facility] ([place] Comment on above: Performed By: #### U A #### [place] [address] UA Protein Negative Normal Negative [facility] ([place] Comment on above: Performed By: #### U A #### [place] [address] UA Spec Grav 1.025 Normal [facility] ([place] Comment on above: Performed By: #### U A #### [facility] [address] [place] [address] UA Specimen Type Clean Catch Normal [facility] ([place] Comment on above: Performed By: #### U A #### [facility] [address] [place] [address] UA Urobilinogen 0.2 E.U./dL Normal [facility] ([place] Comment on above: Performed By: #### U A #### [facility] [address] [place] [address] Urobilinogen Qn (U) Negative Normal Neg-Trace [facility] ([place]) Comment on above: Performed By: #### U A #### [address] [address] [address] ENTEROGRAPHY ABD/PELVIS W /CONTRASTon 07-19-2019 CT ENTEROGRAPHY ABD/PELVIS W/CONTRAST ORIGINAL CT ENTEROGRAPHY ABD/PELVIS W/CONTRAST CLINICAL STATEMENT: CROHNS DISEASE, chronic abdominal pain COMPARISON: 04/04/2019 FINDINGS:The lung bases are clear. No focal liver lesion is identified. The gallbladder is unremarkable. The spleen and pancreas are normal in appearance. The adrenal glands are normal in configuration. No suspicious renal lesion or hydronephrosis is seen. The aorta is normal in caliber. No retroperitoneal mass or adenopathy is identified. The urinary bladder is unremarkable. There is no evidence of a bowel obstruction. A few scattered diverticula are seen throughout the colon. The appendix is unremarkable. No bowel wall thickening or abnormal enhancement of the terminal ileum is identified. No abdominal or pelvic mass or fluid collection is identified. No suspicious osseous lesion is seen. IMPRESSION:No findings seen to suggest active Crohn's disease. This exam was performed according to our departmental dose optimization program, and includes the following measures where applicable: automated exposure control, adjustment of the mAs and/or kVp according to patient size and/or exam, and an iterative reconstruction algorithm. Interpreted By: Stacey Ireland MD Preliminary Report By: Stacey Ireland MD Electronically Signed By: Stacey Ireland MD Dictated Date: 07/19/2019 3:00:25 PM Prelim Date: 07/19/2019 3:00:25 PM Sign Date: 07/19/2019 3:07:59 PM Ordering Provider:Linda Neves Normal [facility] ([place] .GFRon 07-18-2019 GFR Non- >60 Normal [facility] ([place] Comment on above: Result Comment: GFR Population mean for , Non- Americans Ages 20-29 = 116 mL/min/1.73 sq.m. Ages 30-39 = 107 mL/min/1.73 sq.m. Ages 40-49 = 99 mL/min/1.73 sq.m. Ages 50-59 = 93 mL/min/1.73 sq.m. Ages 60-69 = 85 mL/min/1.73 sq.m. Ages 70+ = 75 mL/min/1.73 sq.m. Chronic Kidney Disease: Less than 60 mL/min/1.73 square meters End Stage Renal Disease: Less than 15 mL/min/1.73 square meters Performed By: #### C MP, CBC, ADIFF, ANEU, GFR, LIP #### [address] [address] GFR >60 Normal [facility] ([place] Comment on above: Result Comment: GFR Population mean for , Non- Americans Ages 20-29 = 116 mL/min/1.73 sq.m. Ages 30-39 = 107 mL/min/1.73 sq.m. Ages 40-49 = 99 mL/min/1.73 sq.m. Ages 50-59 = 93 mL/min/1.73 sq.m. Ages 60-69 = 85 mL/min/1.73 sq.m. Ages 70+ = 75 mL/min/1.73 sq.m. Chronic Kidney Disease: Less than 60 mL/min/1.73 square meters End Stage Renal Disease: Less than 15 mL/min/1.73 square meters Performed By: #### C MP, CBC, ADIFF, ANEU, GFR, LIP #### [address] [address] .Manual Diffon 07-18-2019 Basophil %, Manual 0.0 % Normal 0.0-2.5 [facility] ([place]) Comment on above: Performed By: #### C MP, CBC, ADIFF, ANEU, GFR, LIP #### [address] [address] Basophil, Abs Manual 0.00 10 3/mcL Normal 0.00-0.27 [facility] ([place]) Comment on above: Performed By: #### C MP, CBC, ADIFF, ANEU, GFR, LIP #### [address] [address] Cells Counted 100 Normal [facility] ([place] Comment on above: Performed By: #### C MP, CBC, ADIFF, ANEU, GFR, LIP #### [address] [address] Eosinophil %, Manual 1.0 % Normal 0.0-6.0 [facility] ([place] Comment on above: Performed By: #### C MP, CBC, ADIFF, ANEU, GFR, LIP #### [address] [address] Eosinophil, Abs Manual 0.05 10 3/mcL Normal 0.00-0.65 [facility] ([place] Comment on above: Performed By: #### C MP, CBC, ADIFF, ANEU, GFR, LIP #### [address] [address] Lymphocyte %, Manual 55.0 % High 20.0-40.0 [facility] ([place] Comment on above: Performed By: #### C MP, CBC, ADIFF, ANEU, GFR, LIP #### [address] [address] Lymphocyte, Abs Manual 2.58 10 3/mcL Normal 0.90-4.32 [facility] ([place] Comment on above: Performed By: #### C MP, CBC, ADIFF, ANEU, GFR, LIP #### [address] [address] Monocyte %, Manual 4.0 % Normal 2.0-13.0 [facility] ([place] Comment on above: Performed By: #### C MP, CBC, ADIFF, ANEU, GFR, LIP #### [address] [address] Monocyte, Abs Manual 0.19 10 3/mcL Normal 0.09-1.40 [facility] ([place] Comment on above: Performed By: #### C MP, CBC, ADIFF, ANEU, GFR, LIP #### [place] [address] Neutrophil %, Manual 40.0 % Low 50.0-75.0 [facility] ([place] Comment on above: Performed By: #### C MP, CBC, ADIFF, ANEU, GFR, LIP #### [place] [address] Neutrophil, Abs Manual 1.88 10 3/mcL Low 2.25-8.10 [facility] ([place] Comment on above: Performed By: #### C MP, CBC, ADIFF, ANEU, GFR, LIP #### [place] [address] .Morphon 07-18-2019 Platelets (Bld) [#/Vol] Normal Normal [facility] ([place] Comment on above: Performed By: #### C MP, CBC, ADIFF, ANEU, GFR, LIP #### [place] [address] RBC morphology finding Nom (Bld) Normal Normal [facility] ([place] Comment on above: Performed By: #### C MP, CBC, ADIFF, ANEU, GFR, LIP #### [place] [address] BMPon 07-18-2019 Calcium [Mass/Vol] 8.3 mg/dL Low 8.4-10.1 [facility] ([place] Comment on above: Performed By: #### C MP, CBC, ADIFF, ANEU, GFR, LIP #### [place] [address] Chloride [Moles/Vol] 110 mmol/L Normal 98-110 [facility] ([place] Comment on above: Performed By: #### C MP, CBC, ADIFF, ANEU, GFR, LIP #### [place] [address] CO2 [Moles/Vol] 28 mmol/L Normal 22-32 [facility] ([place] Comment on above: Performed By: #### C MP, CBC, ADIFF, ANEU, GFR, LIP #### [address] [address] Creatinine [Mass/Vol] 0.86 mg/dL Normal 0.50-1.20 [facility] ([place]) Comment on above: Performed By: #### C MP, CBC, ADIFF, ANEU, GFR, LIP #### [address] [address] Electrolyte Balance 3.0 mEq/L Low 4.0-15.0 [facility] ([place]) Comment on above: Performed By: #### C MP, CBC, ADIFF, ANEU, GFR, LIP #### [address] [address] Glucose [Mass/Vol] 77 mg/dL Normal 70-110 [facility] ([place] Comment on above: Performed By: #### C MP, CBC, ADIFF, ANEU, GFR, LIP #### [address] [address] Potassium [Moles/Vol] 3.6 mmol/L Normal 3.5-5.0 [facility] ([place] Comment on above: Performed By: #### C MP, CBC, ADIFF, ANEU, GFR, LIP #### [address] [address] Sodium [Moles/Vol] 141 mmol/L Normal 136-145 [facility] ([place] Comment on above: Performed By: #### C MP, CBC, ADIFF, ANEU, GFR, LIP #### [address] [address] Urea nitrogen [Mass/Vol] 6.0 mg/dL Low 8.0-22.0 [facility] ([place] Comment on above: Performed By: #### C MP, CBC, ADIFF, ANEU, GFR, LIP #### [address] [address] Urea nitrogen/Creatinine [Mass ratio] 7.0 ratio Low 10.0-22.0 [facility] ([place] Comment on above: Performed By: #### C MP, CBC, ADIFF, ANEU, GFR, LIP #### [address] [address] CBCon 07-18-2019 Erythrocyte distribution width (RBC) [Ratio] 12.6 % Normal 11.5-15.5 [facility] ([place] Comment on above: Performed By: #### C MP, CBC, ADIFF, ANEU, GFR, LIP #### [place] [id number] Hematocrit (Bld) [Volume fraction] 39.4 % Normal 34.0-46.0 [facility] ([place] Comment on above: Performed By: #### C MP, CBC, ADIFF, ANEU, GFR, LIP #### [place] [id number] Hemoglobin (Bld) [Mass/Vol] 13.5 G/dL Normal 12.0-16.0 [facility] ([place] Comment on above: Performed By: #### C MP, CBC, ADIFF, ANEU, GFR, LIP #### [place] [address] MCH (RBC) [Entitic mass] 31.0 pg Normal 27.0-33.0 [facility] ([place] Comment on above: Performed By: #### C MP, CBC, ADIFF, ANEU, GFR, LIP #### [place] [id number] MCHC (RBC) [Mass/Vol] 34.2 G/dL Normal 32.0-36.0 [facility] ([place] Comment on above: Performed By: #### C MP, CBC, ADIFF, ANEU, GFR, LIP #### [place] [id number] MCV (RBC) [Entitic vol] 90.6 fL Normal 80.0-99.0 [facility] ([place] Comment on above: Performed By: #### C MP, CBC, ADIFF, ANEU, GFR, LIP #### [place] [id number] Platelet mean volume (Bld) [Entitic vol] 7.5 fL Normal 6.6-10.5 [facility] ([place] Comment on above: Performed By: #### C MP, CBC, ADIFF, ANEU, GFR, LIP #### [address] [address] Platelets (Bld) [#/Vol] 326 10 3/mcL Normal 150-450 [facility] ([place] Comment on above: Performed By: #### C MP, CBC, ADIFF, ANEU, GFR, LIP #### [address] [address] RBC (Bld) [#/Vol] 4.34 10 6/mcL Normal 4.10-5.30 [facility] ([place]) Comment on above: Performed By: #### C MP, CBC, ADIFF, ANEU, GFR, LIP #### [place] [address] [place] [address] WBC (Bld) [#/Vol] 4.70 10 3/mcL Normal 4.50-10.80 [facility] ([place] Comment on above: Performed By: #### C MP, CBC, ADIFF, ANEU, GFR, LIP #### [address] [address] Beta Strep Antigenon 017 Beta Strep Antigen CBNCBNMRN#: [id number] Name: JANEEJASENLINDA Jackson D.o.b.: 1985 Sex: Richard# Loc [facility] [id number] JENNA TH Throat 11/20/16NTIBIOTICS AT COL.: AKREN Owens [facility] [address] [place] [id number] Hardik Gonzalez CBNC BNBeta Strep Antigen FINALAntigen Screen: Negative for Group A StrepCulture confirmation to follow.COMMENT: Recommendations suggest that all negative resultsbe confirmed with culture.ROMERO FOR RESULTS: - NEW RESULTATT.PHYS.: ER-REG, TEMPORARY LOCATION: [facility]--ADM.DATE: 11/19/16 PATIENT : IRVIN TAN DMICROBIOLOGYPRINTED: 11/20/16 00:50 REGULAR 1 PAGE: 1 of [facility] Comment on above: Performed By: #### B SA ####[facility], [address] [place] [address] Culture Beta Strep Onlyon Culture Beta Strep Only CBNCBNMRN#: [id number] Name: IRVIN TAN Renetta : 1985 Sex: Richard# Loc [id number] [facility]/16NT[facility] [address] [place], [place] [id number] C Mila Guzmán M E N T S CBNC BNCulture Beta Strep Only FINALNo Beta Strep IsolatedSensitivity Testing: Not IndicatedComment: The most common etiologic agents in pharyngitisinclude Group A beta Strep, Adenovirus, EBV, and CMV. Anegative bacterial culture may be supplemented with a virusculture if the duration of present illness is less than 7days.ROMERO FOR RESULTS: - NEW RESULTATT.PHYS.: SALMA BENJAMIN LOCATION: [facility].DATE: 11/19/16 PATIENT : IRVIN TAN DMICROBIOLOGYPRINTED: 11/22/16 07:37 REGULAR 2 PAGE: 2 of 1 1 [facility] Comment on above: Performed By: #### B SO ####[facility], [address] [place] [address] ED Note-Provideron 7 ED Note-Provider Normal [facility] Patient Summary Documentson 11-20-2016 Patient Summary Documents Normal [facility] ED Note-Provideron 7 ED Note-Provider Normal [facility] Patient Summary Documentson 11-08-2016 Patient Summary Documents Normal [facility] COVID-19 virus antigen assay SARS-CoV-2 (COVID-19) Ag IA.rapid Ql (Resp) [facility] Work Phone: Clostridium difficile detect ion by polymerase chain reaction C. difficile DNA DEAN+probe Ql (Unsp spec) [facility] Work Phone: EP Panel Gastrointestinal pathogens panel DEAN+probe (Stl) [facility] Work Phone: No Panel Information Enteric Bacteriology [facility] Work Phone: Stool lactoferrin detection by immunoassay Lactoferrin IA Ql (Stl) [facility] Work Phone: Vital Signs Date Time Vital Sign Value Performing Clinician Facility 09-27-2024 08:44-0400 Body height 160 cm Bennie Nobles MD Work Phone: [facility] 09-27-2024 08:44-0400 Body mass index (BMI) [Ratio] 33.66 kg/m2 Bennie Nobles MD Work Phone: [facility] 09-27-2024 08:44-0400 Body weight 86.18 kg Bennie Nobles MD Work Phone: [facility] 09-27-2024 08:44-0400 Diastolic blood pressure 78 mm[Hg] Bennie Nobles MD Work Phone: [facility] 09-27-2024 08:44-0400 Systolic blood pressure 118 mm[Hg] Bennie Nobles MD Work Phone: [facility] 09-19-2024 20:31-0400 Diastolic Blood Pressure Non-Invasive 68 mm[Hg] FIDE MARTEL MD [facility] 09-19-2024 20:31-0400 Heart rate 69 /min FIDE MARTEL MD [facility] 09-19-2024 20:31-0400 Respiratory rate 15 /min FIDE MARTEL MD [facility] 09-19-2024 20:31-0400 Systolic Blood Pressure Non-Invasive 121 mm[Hg] FIDE MARTEL MD [facility] 09-19-2024 19:57-0400 Diastolic Blood Pressure Non-Invasive 88 mm[Hg] FIDE MARTEL MD [facility] 09-19-2024 19:57-0400 Heart rate 74 /min FIDE MARTEL MD [facility] 09-19-2024 19:57-0400 Reason For Taking VItal Signs FIDE MARTEL MD [facility] 09-19-2024 19:57-0400 Respiratory rate 16 /min FIDE MARTEL MD [facility] 09-19-2024 19:57-0400 Systolic Blood Pressure Non-Invasive 124 mm[Hg] FIDE MARTEL MD [facility] 09-19-2024 18:26-0400 Blood Pressure Location FIDE MARTEL MD [facility] 09-19-2024 18:26-0400 Body temperature 98.78 [degF] FIDE MARTEL MD [facility] 09-19-2024 18:26-0400 Diastolic Blood Pressure Non-Invasive 86 mm[Hg] FIDE MARTEL MD [facility] 09-19-2024 18:26-0400 Heart rate 91 /min FIDE MARTEL MD [facility] 09-19-2024 18:26-0400 Respiratory rate 16 /min FIDE MARTEL MD [facility] 09-19-2024 18:26-0400 Systolic Blood Pressure Non-Invasive 129 mm[Hg] FIDE MARTEL MD [facility] 08-27-2024 10:21-0400 Body mass index (BMI) [Ratio] 33.66 kg/m2 Lissa Meade MD Work Phone: [facility] 08-27-2024 10:21-0400 Body weight 86.18 kg Lissa Meade MD Work Phone: [facility] 08-27-2024 10:21-0400 Diastolic blood pressure 84 mm[Hg] Lissa Meade MD Work Phone: [facility] 08-27-2024 10:21-0400 Systolic blood pressure 138 mm[Hg] Lissa Meade MD Work Phone: [facility] 08-04-2024 17:12-0400 Body mass index (BMI) [Ratio] 33.08 kg/m2 Geno VÁZQUEZ Work Phone: [facility] 08-04-2024 17:12-0400 Body temperature 97.81 [degF] Geno Rodriges PA Work Phone: [facility] 08-04-2024 17:12-0400 Body weight 84.7 kg Krislyn Aberegg PA Work Phone: [facility] 08-04-2024 17:12-0400 Diastolic blood pressure 82 mm[Hg] Krislyn Aberegg PA Work Phone: [facility] 08-04-2024 17:12-0400 Heart rate 83 /min Krislyn Aberegg PA Work Phone: [facility] 08-04-2024 17:12-0400 Respiratory rate 16 /min Krislyn Aberegg PA Work Phone: [facility] 08-04-2024 17:12-0400 SaO2% (BldA) [Mass fraction] 98 % Krislyn Aberegg PA Work Phone: [facility] 08-04-2024 17:12-0400 Systolic blood pressure 134 mm[Hg] Krislyn Aberegg PA Work Phone: [facility] 06-04-2024 14:05-0500 Body height 160 cm Lissa Meade MD Work Phone: [facility] 06-04-2024 14:05-0500 Body mass index (BMI) [Ratio] 32.66 kg/m2 Lissa Medae MD Work Phone: [facility] 06-04-2024 14:05-0500 Body weight 83.64 kg Lissa Meade MD Work Phone: [facility] 06-04-2024 14:05-0500 Diastolic blood pressure 70 mm[Hg] Lissa Meade MD Work Phone: [facility] 06-04-2024 14:05-0500 Systolic blood pressure 102 mm[Hg] Lissa Meade MD Work Phone: [facility] 02-15-2024 13:03-0400 Body temperature 97.59 [degF] Carrillo Hudson APRN.CNP Work Phone: [facility] 02-15-2024 13:03-0400 Diastolic blood pressure 80 mm[Hg] Carrillo Hudson ASSESSMENT DIRECTOR.KITCHEN FOOD ASSEMBLER Work Phone: [facility] 02-15-2024 13:03-0400 Heart rate 90 /min Carrillo Hudson ASSESSMENT DIRECTOR.KITCHEN [employer]OD ASSEMBLER Work Phone: [facility] 02-15-2024 13:03-0400 Respiratory rate 16 /min Carrillo Hudson ASSESSMENT DIRECTOR.KITCHEN [employer]OD ASSEMBLER Work Phone: [facility] 02-15-2024 13:03-0400 SaO2% (BldA) [Mass fraction] 98 % Carrillo Hudson ASSESSMENT DIRECTOR.KITCHEN [employer]OD ASSEMBLER Work Phone: [facility] 02-15-2024 13:03-0400 Systolic blood pressure 132 mm[Hg] Carrillo Hudson ASSESSMENT DIRECTOR.KITCHEN FOOD ASSEMBLER Work Phone: [facility] 11-28-2023 08:16-0400 Diastolic blood pressure 82 mm[Hg] Sarmad Wren ASSESSMENT DIRECTOR.KITCHEN FOOD ASSEMBLER Work Phone: [facility] 11-28-2023 08:16-0400 Systolic blood pressure 124 mm[Hg] Sarmad Wren ASSESSMENT DIRECTOR.KITCHEN FOOD ASSEMBLER Work Phone: [facility] 11-28-2023 07:59-0400 Body height 162 cm Sarmad Wren ASSESSMENT DIRECTOR.KITCHEN FOOD ASSEMBLER Work Phone: [facility] 11-28-2023 07:59-0400 Body mass index (BMI) [Ratio] 31.63 kg/m2 Sarmad Wren ASSESSMENT DIRECTOR.KITCHEN FOOD ASSEMBLER Work Phone: [facility] 11-28-2023 07:59-0400 Body weight 83.01 kg Sarmad Wren ASSESSMENT DIRECTOR.KITCHEN [employer]OD ASSEMBLER Work Phone: [facility] 11-28-2023 07:59-0400 Heart rate 78 /min Sarmad Wren ASSESSMENT DIRECTOR.KITCHEN FOOD ASSEMBLER Work Phone: [facility] 11-28-2023 07:59-0400 Respiratory rate 16 /min Sarmad Wren ASSESSMENT DIRECTOR.KITCHEN FOOD ASSEMBLER Work Phone: [facility] 11-28-2023 07:59-0400 SaO2% (BldA) [Mass fraction] 99 % Sarmad Wren APRN.KITCHEN [employer] ASSEMBLER Work Phone: [facility] 11-05-2023 09:27-0400 Body mass index (BMI) [Ratio] 31.67 kg/m2 Carrillo Hudson ASSESSMENT DIRECTOR.K[employer]EN [employer] ASSEMBLER Work Phone: [facility] 11-05-2023 09:27-0400 Body temperature 97.5 [degF] Carrillo Hudson ASSESSMENT DIRECTOR.KITCHEN FOOD ASSEMBLER Work Phone: [facility] 11-05-2023 09:27-0400 Body weight 83.7 kg Carrillo Hudson ASSESSMENT DIRECTOR.KITCHEN [employer] ASSEMBLER Work Phone: [facility] 11-05-2023 09:27-0400 Diastolic blood pressure 68 mm[Hg] Carrillo Hudson ASSESSMENT DIRECTOR.KITCHEN FOOD ASSEMBLER Work Phone: [facility] 11-05-2023 09:27-0400 Heart rate 86 /min Carrillo Hudson ASSESSMENT DIRECTOR.KITCHEN [employer]OD ASSEMBLER Work Phone: [facility] 11-05-2023 09:27-0400 Respiratory rate 16 /min Carrillo Hudson APRN.K[employer]EN [employer] ASSEMBLER Work Phone: [facility] 11-05-2023 09:27-0400 SaO2% (BldA) [Mass fraction] 98 % Carrillo Hudson ASSESSMENT DIRECTOR.K[employer]EN [employer] ASSEMBLER Work Phone: [facility] 11-05-2023 09:27-0400 Systolic blood pressure 122 mm[Hg] Carrillo Hudson ASSESSMENT DIRECTOR.KITCHEN [employer]OD ASSEMBLER Work Phone: [facility] 09-08-2023 16:44-0400 Body mass index (BMI) [Ratio] 33.23 kg/m2 Yu Castillo MD Work Phone: [facility] 09-08-2023 16:44-0400 Body temperature 97.7 [degF] Yu Castillo MD Work Phone: [facility] 09-08-2023 16:44-0400 Body weight 87.8 kg Yu Castillo MD Work Phone: [facility] 09-08-2023 16:44-0400 Diastolic blood pressure 82 mm[Hg] Yu Castillo MD Work Phone: [facility] 09-08-2023 16:44-0400 Heart rate 84 /min Yu Castillo MD Work Phone: [facility] 09-08-2023 16:44-0400 Respiratory rate 21 /min Yu Castillo MD Work Phone: [facility] 09-08-2023 16:44-0400 SaO2% (BldA) [Mass fraction] 96 % Yu Castillo MD Work Phone: [facility] 09-08-2023 16:44-0400 Systolic blood pressure 110 mm[Hg] Yu Castillo MD Work Phone: [facility] 07-27-2023 18:22-0400 Body temperature 97.4 [degF] MICROBIOLOGY INSTRUCTOR-C Michelle Grimm MICROBIOLOGY INSTRUCTOR Work Phone: [facility] 07-27-2023 18:22-0400 Diastolic blood pressure 78 mm[Hg] MICROBIOLOGY INSTRUCTOR-C Michelle Barreralogar MICROBIOLOGY INSTRUCTOR Work Phone: [facility] 07-27-2023 18:22-0400 Heart rate 76 /min MICROBIOLOGY INSTRUCTOR-C Michelle Barreralogar MICROBIOLOGY INSTRUCTOR Work Phone: [facility] 07-27-2023 18:22-0400 Respiratory rate 16 /min MICROBIOLOGY INSTRUCTOR-C Michelle Podlogar MICROBIOLOGY INSTRUCTOR Work Phone: [facility] 07-27-2023 18:22-0400 SaO2% (BldA) [Mass fraction] 98 % MICROBIOLOGY INSTRUCTOR-C Michelle Barreralogar MICROBIOLOGY INSTRUCTOR Work Phone: [facility] 07-27-2023 18:22-0400 Systolic blood pressure 137 mm[Hg] MICROBIOLOGY INSTRUCTOR-C Michelle Barreralogkarolina MICROBIOLOGY INSTRUCTOR Work Phone: 3(760)989-919953 [place] [address] 07-27-2023 15:41-0400 Body height 160.02 cm MICROBIOLOGY INSTRUCTOR-C Michelle Podlogar MICROBIOLOGY INSTRUCTOR Work Phone: 2(850)069-463130 [place] [address] 07-27-2023 15:41-0400 Body mass index (BMI) [Ratio] 35 kg/m2 MICROBIOLOGY INSTRUCTOR-C Michelle Podlogar MICROBIOLOGY INSTRUCTOR Work Phone: 7(962)996-860230 [place] [address] 07-27-2023 15:41-0400 Body weight 89.81 kg MICROBIOLOGY INSTRUCTOR-C Michelle Podlogar MICROBIOLOGY INSTRUCTOR Work Phone: 7(193)692-108130 [place] [address] 04-27-2023 13:36-0500 Diastolic blood pressure 70 mm[Hg] MICROBIOLOGY INSTRUCTOR-C Michelle Podlogar MICROBIOLOGY INSTRUCTOR Work Phone: 1(183)039-362430 [place] [address] 04-27-2023 13:36-0500 Heart rate 72 /min MICROBIOLOGY INSTRUCTOR-C Michelle Podlogar MICROBIOLOGY INSTRUCTOR Work Phone: 6(331)681-515030 [place] [address] 04-27-2023 13:36-0500 Respiratory rate 18 /min MICROBIOLOGY INSTRUCTOR-C Michelle Podlogar MICROBIOLOGY INSTRUCTOR Work Phone: 0(144)217-043330 [place] [address] 04-27-2023 13:36-0500 SaO2% (BldA) [Mass fraction] 100 % MICROBIOLOGY INSTRUCTOR-C Michelle Podlogar MICROBIOLOGY INSTRUCTOR Work Phone: 7(285)636-288330 [place] [address] 04-27-2023 13:36-0500 Systolic blood pressure 125 mm[Hg] MICROBIOLOGY INSTRUCTOR-Hardik Martinez Podlogar MICROBIOLOGY INSTRUCTOR Work Phone: 9(381)390-127430 [place] [address] 04-27-2023 10:26-0500 Body height 160.02 cm MICROBIOLOGY INSTRUCTOR-C Michelle Podlogar MICROBIOLOGY INSTRUCTOR Work Phone: 7(175)459-673930 [place] [address] 04-27-2023 10:26-0500 Body mass index (BMI) [Ratio] 34.7 kg/m2 MICROBIOLOGY INSTRUCTOR-C Michelle Podlogar MICROBIOLOGY INSTRUCTOR Work Phone: 0(138)950-817430 [place] [address] 04-27-2023 10:26-0500 Body temperature 97.6 [degF] MICROBIOLOGY INSTRUCTOR-Hardik Martinez Podlogar MICROBIOLOGY INSTRUCTOR Work Phone: 3(686)080-359630 [place] [address] 12-17-2023 10:26-0500 Body weight 88.81 kg MICROBIOLOGY INSTRUCTOR-C Michelle Podlogar MICROBIOLOGY INSTRUCTOR Work Phone: [facility] 03-16-2023 13:32-0500 Body temperature 97.7 [degF] Stefani Gaspar ASSESSMENT DIRECTOR.KITCHEN FOOD ASSEMBLER Work Phone: [facility] 03-16-2023 13:32-0500 Body weight 87.54 kg Stefani Gaspar ASSESSMENT DIRECTOR.KITCHEN FOOD ASSEMBLER Work Phone: [facility] 03-16-2023 13:32-0500 Diastolic blood pressure 85 mm[Hg] Stefani Gaspar ASSESSMENT DIRECTOR.KITCHEN FOOD ASSEMBLER Work Phone: [facility] 03-16-2023 13:32-0500 Heart rate 82 /min Stefani Gaspar ASSESSMENT DIRECTOR.KITCHEN FOOD ASSEMBLER Work Phone: [facility] 03-16-2023 13:32-0500 Respiratory rate 18 /min Stefani Gaspar ASSESSMENT DIRECTOR.KITCHEN FOOD ASSEMBLER Work Phone: [facility] 03-16-2023 13:32-0500 SaO2% (BldA) [Mass fraction] 100 % Stefani Gaspar ASSESSMENT DIRECTOR.KITCHEN FOOD ASSEMBLER Work Phone: [facility] 03-16-2023 13:32-0500 Systolic blood pressure 118 mm[Hg] Stefani Gaspar ASSESSMENT DIRECTOR.KITCHEN FOOD ASSEMBLER Work Phone: [facility] 02-13-2023 21:13-0400 Respiratory rate 18 /min MICROBIOLOGY INSTRUCTOR-C Michelle Podlogar MICROBIOLOGY INSTRUCTOR Work Phone: [facility] 02-13-2023 17:39-0400 Body mass index (BMI) [Ratio] 34.6 kg/m2 MICROBIOLOGY INSTRUCTOR-C Michelle Podlogar MICROBIOLOGY INSTRUCTOR Work Phone: [facility] 02-13-2023 17:39-0400 Body temperature 97.8 [degF] MICROBIOLOGY INSTRUCTOR-C Michelle Podlogar MICROBIOLOGY INSTRUCTOR Work Phone: [facility] 02-13-2023 17:39-0400 Body weight 88.58 kg MICROBIOLOGY INSTRUCTOR-C Michelle Podlogar MICROBIOLOGY INSTRUCTOR Work Phone: [facility] 02-13-2023 17:39-0400 Diastolic blood pressure 96 mm[Hg] MICROBIOLOGY INSTRUCTOR-C Michelle Podlogar MICROBIOLOGY INSTRUCTOR Work Phone: [facility] 02-13-2023 17:39-0400 Heart rate 106 /min MICROBIOLOGY INSTRUCTOR-C Michelle Podlogar MICROBIOLOGY INSTRUCTOR Work Phone: 3(919)758-881630 [place] [address] 02-13-2023 17:39-0400 SaO2% (BldA) [Mass fraction] 99 % MICROBIOLOGY INSTRUCTOR-C Michelle Podlogar MICROBIOLOGY INSTRUCTOR Work Phone: 9(556)351-441842 [place] [address] 02-13-2023 17:39-0400 Systolic blood pressure 133 mm[Hg] MICROBIOLOGY INSTRUCTOR-C Michelle Podlogar MICROBIOLOGY INSTRUCTOR Work Phone: 7(382)247-876430 [place] [address] 02-12-2023 14:05-0400 Body temperature 96.5 [degF] MICROBIOLOGY INSTRUCTOR-C Michelle Podlogar MICROBIOLOGY INSTRUCTOR Work Phone: 2(459)955-057230 [place] [address] 02-12-2023 14:05-0400 Diastolic blood pressure 96 mm[Hg] MICROBIOLOGY INSTRUCTOR-C Michelle Podlogar MICROBIOLOGY INSTRUCTOR Work Phone: 1(782)467-000730 [place] [address] 02-12-2023 14:05-0400 Heart rate 75 /min MICROBIOLOGY INSTRUCTOR-C Michelle Podlogar MICROBIOLOGY INSTRUCTOR Work Phone: 2(791)741-519130 [place] [address] 02-12-2023 14:05-0400 Respiratory rate 16 /min MICROBIOLOGY INSTRUCTOR-C Michelle Podlogar MICROBIOLOGY INSTRUCTOR Work Phone: 1(026)272-509042 [place] [address] 02-12-2023 14:05-0400 SaO2% (BldA) [Mass fraction] 75 % MICROBIOLOGY INSTRUCTOR-C Michelle Podlogar MICROBIOLOGY INSTRUCTOR Work Phone: 7(558)430-965630 [place] [address] 02-12-2023 14:05-0400 Systolic blood pressure 128 mm[Hg] MICROBIOLOGY INSTRUCTOR-C Michelle Podlogar MICROBIOLOGY INSTRUCTOR Work Phone: 8(020)556-708430 [place] [address] 02-12-2023 10:54-0400 Body mass index (BMI) [Ratio] 34.3 kg/m2 MICROBIOLOGY INSTRUCTOR-C Michelle Podlogar MICROBIOLOGY INSTRUCTOR Work Phone: 6(764)694-019742 [place] [address] 02-12-2023 10:54-0400 Body weight 88 kg MICROBIOLOGY INSTRUCTOR-C Michelle Podlogar MICROBIOLOGY INSTRUCTOR Work Phone: 3(658)552-101230 [place] [address] 01-17-2023 13:42-0400 Diastolic blood pressure 101 mm[Hg] MICROBIOLOGY INSTRUCTOR-C Michelle Podlogar MICROBIOLOGY INSTRUCTOR Work Phone: 7(361)431-649630 [place] [address] 01-17-2023 13:42-0400 Heart rate 79 /min MICROBIOLOGY INSTRUCTOR-C Michelle Podlogar MICROBIOLOGY INSTRUCTOR Work Phone: 2(327)548-519230 [place] [address] 01-17-2023 13:42-0400 Respiratory rate 18 /min MICROBIOLOGY INSTRUCTOR-C Michelle Podlogar MICROBIOLOGY INSTRUCTOR Work Phone: 2(914)020-181930 [place] [address] 01-17-2023 13:42-0400 SaO2% (BldA) [Mass fraction] 99 % MICROBIOLOGY INSTRUCTOR-C Michelle Podlogar MICROBIOLOGY INSTRUCTOR Work Phone: 7(665)420-257630 [place] [address] 01-17-2023 13:42-0400 Systolic blood pressure 158 mm[Hg] MICROBIOLOGY INSTRUCTOR-C Michelle Podlogar MICROBIOLOGY INSTRUCTOR Work Phone: 6(463)960-307430 [place] [address] 01-17-2023 12:04-0400 Body mass index (BMI) [Ratio] 34.1 kg/m2 MICROBIOLOGY INSTRUCTOR-C Michelle Podlogar MICROBIOLOGY INSTRUCTOR Work Phone: 4(508)887-477330 [place] [address] 01-17-2023 12:04-0400 Body temperature 96.6 [degF] MICROBIOLOGY INSTRUCTOR-C Michelle Podlogar MICROBIOLOGY INSTRUCTOR Work Phone: 6(367)222-551942 [place] [address] 01-17-2023 12:04-0400 Body weight 87.31 kg MICROBIOLOGY INSTRUCTOR-C Michelle Podlogar MICROBIOLOGY INSTRUCTOR Work Phone: 4(919)005-006330 [place] [address] 01-10-2023 15:41-0400 Diastolic Blood Pressure Non-Invasive [address] FIDEL HUMPHREYS MD [facility] 01-10-2023 15:41-0400 Heart rate 98 /min DR FIDEL HUMPHREYS MD [facility] 01-10-2023 15:41-0400 Respiratory rate 16 /min DR FIDEL HUMPHREYS MD [facility] 01-10-2023 15:41-0400 Systolic Blood Pressure Non-Invasive [address] FIDEL HUMPHREYS MD [facility] 01-10-2023 14:18-0400 Body height [address] FIDEL HUMPHREYS MD [facility] 01-10-2023 14:18-0400 Body temperature 98.6 [degF] DR FIDEL HUMPHREYS MD [facility] 01-10-2023 14:18-0400 Body weight 86.[address] FIDEL HUMPHREYS MD [facility] 01-10-2023 14:18-0400 Diastolic Blood Pressure Non-Invasive [address] FIDEL HUMPHREYS MD [facility] 01-10-2023 14:18-0400 Heart rate 106 /min DR FIDEL HUMPHREYS MD [facility] 01-10-2023 14:18-0400 Respiratory rate 16 /min DR FIDEL HUMPHREYS MD [facility] 01-10-2023 14:18-0400 Systolic Blood Pressure Non-Invasive [address] FIDEL HUMPHREYS MD [facility] 12-06-2022 16:33-0400 Body height 160.02 cm MICROBIOLOGY INSTRUCTOREber Grimm MICROBIOLOGY INSTRUCTOR Work Phone: [facility] 12-06-2022 16:33-0400 Body mass index (BMI) [Ratio] 34.2 kg/m2 MICROBIOLOGY INSTRUCTOREber Grimm MICROBIOLOGY INSTRUCTOR Work Phone: [facility] 12-06-2022 16:33-0400 Body temperature 97 [degF] MICROBIOLOGY INSTRUCTOREber Grimm MICROBIOLOGY INSTRUCTOR Work Phone: 1(032)460-445230 [place] [address] 12-06-2022 16:33-0400 Body weight 87.81 kg MICROBIOLOGY INSTRUCTOR-C Michelle Podlogar MICROBIOLOGY INSTRUCTOR Work Phone: 6(881)298-898430 [place] [address] 12-06-2022 16:33-0400 Diastolic blood pressure 95 mm[Hg] MICROBIOLOGY INSTRUCTOR-C Michelle Podlogar MICROBIOLOGY INSTRUCTOR Work Phone: 3(331)036-740530 [place] [address] 12-06-2022 16:33-0400 Heart rate 96 /min MICROBIOLOGY INSTRUCTOR-C Michelle Podlogar MICROBIOLOGY INSTRUCTOR Work Phone: 9(855)522-466730 [place] [address] 12-06-2022 16:33-0400 Respiratory rate 17 /min MICROBIOLOGY INSTRUCTOR-C Michelle Podlogar MICROBIOLOGY INSTRUCTOR Work Phone: 9(134)326-612030 [place] [address] 12-06-2022 16:33-0400 SaO2% (BldA) [Mass fraction] 100 % MICROBIOLOGY INSTRUCTOR-C Michelle Podlogar MICROBIOLOGY INSTRUCTOR Work Phone: 3(341)533-620730 [place] [address] 12-06-2022 16:33-0400 Systolic blood pressure 141 mm[Hg] MICROBIOLOGY INSTRUCTOR-C Michelle Podlogar MICROBIOLOGY INSTRUCTOR Work Phone: 1(393)198-116430 [place] [address] 11-23-2022 15:37-0400 Diastolic blood pressure 83 mm[Hg] MICROBIOLOGY INSTRUCTOR-C Michlele Podlogar MICROBIOLOGY INSTRUCTOR Work Phone: 2(753)116-049230 [place] [address] 11-23-2022 15:37-0400 Heart rate 64 /min MICROBIOLOGY INSTRUCTOR-C Michelle Podlogar MICROBIOLOGY INSTRUCTOR Work Phone: 6(403)538-717930 [place] [address] 11-23-2022 15:37-0400 Respiratory rate 16 /min MICROBIOLOGY INSTRUCTOR-C Michelle Podlogar MICROBIOLOGY INSTRUCTOR Work Phone: 9(444)585-874830 [place] [address] 11-23-2022 15:37-0400 SaO2% (BldA) [Mass fraction] 99 % MICROBIOLOGY INSTRUCTOR-C Michelle Podlogar MICROBIOLOGY INSTRUCTOR Work Phone: 8(746)389-033330 [place] [address] 11-23-2022 15:37-0400 Systolic blood pressure 132 mm[Hg] MICROBIOLOGY INSTRUCTOR-C Michelle Podlogar MICROBIOLOGY INSTRUCTOR Work Phone: 9(162)778-416030 [place] [address] 11-23-2022 12:01-0400 Body height 160.02 cm MICROBIOLOGY INSTRUCTOR-C Michelle Podlogar MICROBIOLOGY INSTRUCTOR Work Phone: [facility] 11-23-2022 12:01-0400 Body mass index (BMI) [Ratio] 32.5 kg/m2 MICROBIOLOGY INSTRUCTOR-C Michelle Podlogar MICROBIOLOGY INSTRUCTOR Work Phone: [facility] 11-23-2022 12:01-0400 Body temperature 97.9 [degF] MICROBIOLOGY INSTRUCTOR-C Michelle Podlogar MICROBIOLOGY INSTRUCTOR Work Phone: 6(619)050-036130 [place] [address] 11-23-2022 12:01-0400 Body weight 83.46 kg MICROBIOLOGY INSTRUCTOR-C Michelle Podlogar MICROBIOLOGY INSTRUCTOR Work Phone: 1(771)380-581730 [place] [address] 10-28-2022 09:41-0400 Body height 160.02 cm MICROBIOLOGY INSTRUCTOR-C Michelle Podlogar MICROBIOLOGY INSTRUCTOR Work Phone: 1(979)664-970430 [place] [address] 10-28-2022 09:41-0400 Body mass index (BMI) [Ratio] 32.5 kg/m2 MICROBIOLOGY INSTRUCTOR-C Michelle Podlogar MICROBIOLOGY INSTRUCTOR Work Phone: 3(068)547-549530 [place] [address] 10-28-2022 09:41-0400 Body temperature 97.7 [degF] MICROBIOLOGY INSTRUCTOR-C Michelle Podlogar MICROBIOLOGY INSTRUCTOR Work Phone: 8(137)498-667230 [place] [address] 10-28-2022 09:41-0400 Body weight 83.5 kg MICROBIOLOGY INSTRUCTOR-C Michelle Barreralogar MICROBIOLOGY INSTRUCTOR Work Phone: 0(865)526-066130 [place] [address] 10-28-2022 09:41-0400 Diastolic blood pressure 114 mm[Hg] MICROBIOLOGY INSTRUCTOR-Hardik Martinez Podlogar MICROBIOLOGY INSTRUCTOR Work Phone: 6(254)206-001830 [place] [address] 10-28-2022 09:41-0400 Heart rate 91 /min MICROBIOLOGY INSTRUCTOR-C Michelle Podlogar MICROBIOLOGY INSTRUCTOR Work Phone: 8(123)850-608530 [place] [address] 10-28-2022 09:41-0400 Respiratory rate 24 /min MICROBIOLOGY INSTRUCTOR-C Michelle Podlogar MICROBIOLOGY INSTRUCTOR Work Phone: 0(596)174-454030 [place] [address] 10-28-2022 09:41-0400 SaO2% (BldA) [Mass fraction] 100 % MICROBIOLOGY INSTRUCTOR-C Michelle Barreralogar MICROBIOLOGY INSTRUCTOR Work Phone: 1(759)476-978142 [place] [address] 10-28-2022 09:41-0400 Systolic blood pressure 136 mm[Hg] MICROBIOLOGY INSTRUCTOR-Hardik Martinez Podlogar MICROBIOLOGY INSTRUCTOR Work Phone: 9(538)958-501730 [place] [address] 10-26-2022 08:36-0400 Body temperature 98.1 [degF] MICROBIOLOGY INSTRUCTOR-C Michelle Podlogar MICROBIOLOGY INSTRUCTOR Work Phone: 1(815)473-623730 [place] [address] 10-26-2022 08:36-0400 Diastolic blood pressure 85 mm[Hg] MICROBIOLOGY INSTRUCTOR-C Michelle Podlogar MICROBIOLOGY INSTRUCTOR Work Phone: 8(443)252-491530 [place] [address] 10-26-2022 08:36-0400 Heart rate 60 /min MICROBIOLOGY INSTRUCTOR-Hardik Martinez Podlogar MICROBIOLOGY INSTRUCTOR Work Phone: 6(877)348-199530 [place] [address] 10-26-2022 08:36-0400 Respiratory rate 18 /min MICROBIOLOGY INSTRUCTOR-Hardik Martinez Podlogar MICROBIOLOGY INSTRUCTOR Work Phone: 3(010)631-968330 [place] [address] 10-26-2022 08:36-0400 SaO2% (BldA) [Mass fraction] 91 % MICROBIOLOGY INSTRUCTOR-C Michelle Barreralogar MICROBIOLOGY INSTRUCTOR Work Phone: 1(067)847-091030 [place] [address] 10-26-2022 08:36-0400 Systolic blood pressure 128 mm[Hg] MICROBIOLOGY INSTRUCTOR-C Michelle Podlogar MICROBIOLOGY INSTRUCTOR Work Phone: 5(944)750-692530 [place] [address] 10-25-2022 10:58-0400 Body height 160.02 cm MICROBIOLOGY INSTRUCTOR-Hardik Barreralogar MICROBIOLOGY INSTRUCTOR Work Phone: 2(566)769-671030 [place] [address] 10-25-2022 10:58-0400 Body mass index (BMI) [Ratio] 32.3 kg/m2 MICROBIOLOGY INSTRUCTOR-Hardik Martinez Podlogar MICROBIOLOGY INSTRUCTOR Work Phone: 8(943)533-079030 [place] [address] 10-25-2022 10:58-0400 Body weight 82.9 kg MICROBIOLOGY INSTRUCTOR-Hardik Martinez Podlogar MICROBIOLOGY INSTRUCTOR Work Phone: 2(203)603-529830 [place] [address] 10-23-2022 15:22-0400 Body mass index (BMI) [Ratio] 32.9 kg/m2 MICROBIOLOGY INSTRUCTOR-Hardik Martinez Podlogar MICROBIOLOGY INSTRUCTOR Work Phone: [facility] 10-23-2022 15:22-0400 Body weight 84.36 kg MICROBIOLOGY INSTRUCTOR-C Michelle Podlogar MICROBIOLOGY INSTRUCTOR Work Phone: [facility] 10-23-2022 15:22-0400 Diastolic blood pressure 87 mm[Hg] MICROBIOLOGY INSTRUCTOR-C Michelle Podlogar MICROBIOLOGY INSTRUCTOR Work Phone: 9(027)486-323830 [place] [address] 10-23-2022 15:22-0400 Heart rate 79 /min MICROBIOLOGY INSTRUCTOR-C Michelle Podlogar MICROBIOLOGY INSTRUCTOR Work Phone: 7(623)055-228230 [place] [address] 10-23-2022 15:22-0400 Respiratory rate 19 /min MICROBIOLOGY INSTRUCTOR-C Michelle Podlogar MICROBIOLOGY INSTRUCTOR Work Phone: 1(510)832-479330 [place] [address] 10-23-2022 15:22-0400 SaO2% (BldA) [Mass fraction] 99 % MICROBIOLOGY INSTRUCTOR-C Michelle Barreralogar MICROBIOLOGY INSTRUCTOR Work Phone: 6(569)665-770730 [place] [address] 10-23-2022 15:22-0400 Systolic blood pressure 130 mm[Hg] MICROBIOLOGY INSTRUCTOR-C Michelle Arcosar MICROBIOLOGY INSTRUCTOR Work Phone: 5(677)819-182330 [place] [address] 10-18-2022 14:0400 Body height 160.02 cm MICROBIOLOGY INSTRUCTOR-C Michelle Podlogar MICROBIOLOGY INSTRUCTOR Work Phone: 2(102)699-204330 [place] [address] 10-18-2022 14:26-0400 Body mass index (BMI) [Ratio] 33.5 kg/m2 MICROBIOLOGY INSTRUCTOR-Hardik Barreralogar MICROBIOLOGY INSTRUCTOR Work Phone: 5(538)319-577030 [place] [address] 10-18-2022 14:26-0400 Body temperature 98 [degF] MICROBIOLOGY INSTRUCTOR-C Michelle Podlogar MICROBIOLOGY INSTRUCTOR Work Phone: 7(472)565-586130 [place] [address] 10-18-2022 14:0400 Body weight 85.81 kg MICROBIOLOGY INSTRUCTOR-C Michelle Podlogar MICROBIOLOGY INSTRUCTOR Work Phone: 4(869)516-893830 [place] [address] 10-18-2022 14:26-0400 Diastolic blood pressure 96 mm[Hg] MICROBIOLOGY INSTRUCTOR-C Michelle Podlogar MICROBIOLOGY INSTRUCTOR Work Phone: 1(566)966-631230 [place] [address] 10-18-2022 14:26-0400 Respiratory rate 100 /min MICROBIOLOGY INSTRUCTOR-C Michelle Grimm MICROBIOLOGY INSTRUCTOR Work Phone: [facility] 10-18-2022 14:26-0400 SaO2% (BldA) [Mass fraction] 16 % MICROBIOLOGY INSTRUCTOR-C Michelle Podlogar MICROBIOLOGY INSTRUCTOR Work Phone: [facility] 10-18-2022 14:26-0400 Systolic blood pressure 149 mm[Hg] MICROBIOLOGY INSTRUCTOR-C Michelle Grimm MICROBIOLOGY INSTRUCTOR Work Phone: [facility] 09-23-2022 11:31-0400 Body temperature 97.9 [degF] Yu Castillo MD Work Phone: [facility] 09-23-2022 11:31-0400 Body weight 84.82 kg Yu Castillo MD Work Phone: [facility] 09-23-2022 11:31-0400 Diastolic blood pressure 80 mm[Hg] Yu Castillo MD Work Phone: [facility] 09-23-2022 11:31-0400 Heart rate 86 /min Yu Castillo MD Work Phone: [facility] 09-23-2022 11:31-0400 Respiratory rate 16 /min Yu Castillo MD Work Phone: [facility] 09-23-2022 11:31-0400 SaO2% (BldA) [Mass fraction] 97 % Yu Castillo MD Work Phone: [facility] 09-23-2022 11:31-0400 Systolic blood pressure 126 mm[Hg] Yu Castillo MD Work Phone: [facility] 09-10-2022 03:37-0400 Diastolic blood pressure 68 mm[Hg] MICROBIOLOGY INSTRUCTOR-Hardik Grimm MICROBIOLOGY INSTRUCTOR Work Phone: [facility] 09-10-2022 03:37-0400 Heart rate 71 /min MICROBIOLOGY INSTRUCTOR-Hardik Grimm MICROBIOLOGY INSTRUCTOR Work Phone: [facility] 09-10-2022 03:37-0400 Respiratory rate 15 /min MICROBIOLOGY INSTRUCTOR-Hardik Barreralogar MICROBIOLOGY INSTRUCTOR Work Phone: 6(330)858-537942 [place] [address] 09-10-2022 03:37-0400 SaO2% (BldA) [Mass fraction] 98 % MICROBIOLOGY INSTRUCTOR-Hardik Martinez Podlogar MICROBIOLOGY INSTRUCTOR Work Phone: 4(166)662-349130 [place] [address] 09-10-2022 03:37-0400 Systolic blood pressure 124 mm[Hg] MICROBIOLOGY INSTRUCTOR-C Michelle Podlogar MICROBIOLOGY INSTRUCTOR Work Phone: 0(572)472-633030 [place] [address] 09-10-2022 01:48-0400 Body height 160.02 cm MICROBIOLOGY INSTRUCTOR-C Michelle Podlogar MICROBIOLOGY INSTRUCTOR Work Phone: 2(905)901-122930 [place] [address] 09-10-2022 01:48-0400 Body mass index (BMI) [Ratio] 33.9 kg/m2 MICROBIOLOGY INSTRUCTOR-Hardik Barreralogar MICROBIOLOGY INSTRUCTOR Work Phone: 3(528)180-534630 [place] [address] 09-10-2022 01:48-0400 Body temperature 97.5 [degF] MICROBIOLOGY INSTRUCTOR-C Michelle Podlogar MICROBIOLOGY INSTRUCTOR Work Phone: 3(674)829-166330 [place] [address] 09-10-2022 01:48-0400 Body weight 86.9 kg MICROBIOLOGY INSTRUCTOR-Hardik Martinez Podlogar MICROBIOLOGY INSTRUCTOR Work Phone: 4(574)203-512930 [place] [address] 09-02-2022 13:22-0400 Diastolic blood pressure 72 mm[Hg] MICROBIOLOGY INSTRUCTOR-Hardik Martinez Podlogar MICROBIOLOGY INSTRUCTOR Work Phone: 9(655)285-566230 [place] [address] 09-02-2022 13:22-0400 Heart rate 78 /min MICROBIOLOGY INSTRUCTOR-Hardik Martinez Podlogar MICROBIOLOGY INSTRUCTOR Work Phone: 1(377)246-312530 [place] [address] 09-02-2022 13:22-0400 Respiratory rate 16 /min MICROBIOLOGY INSTRUCTOR-Hardik Martinez Podlogar MICROBIOLOGY INSTRUCTOR Work Phone: 1(748)149-209030 [place] [address] 09-02-2022 13:22-0400 SaO2% (BldA) [Mass fraction] 97 % MICROBIOLOGY INSTRUCTOR-Hardik Barreralogar MICROBIOLOGY INSTRUCTOR Work Phone: 0(827)660-057230 [place] [address] 09-02-2022 13:22-0400 Systolic blood pressure 119 mm[Hg] MICROBIOLOGY INSTRUCTOR-C Michelle Podlogar MICROBIOLOGY INSTRUCTOR Work Phone: 8(730)553-120642 [place] [address] 09-02-2022 10:04-0400 Body height 160.02 cm MICROBIOLOGY INSTRUCTOR-C Michelle Podlogar MICROBIOLOGY INSTRUCTOR Work Phone: 6(853)239-217430 [place] [address] 09-02-2022 10:04-0400 Body mass index (BMI) [Ratio] 33.1 kg/m2 MICROBIOLOGY INSTRUCTOR-C Michelle Podlogar MICROBIOLOGY INSTRUCTOR Work Phone: 1(654)924-625430 [place] [address] 09-02-2022 10:04-0400 Body temperature 97.9 [degF] MICROBIOLOGY INSTRUCTOR-C Michelle Podlogar MICROBIOLOGY INSTRUCTOR Work Phone: 3(477)111-232130 [place] [address] 09-02-2022 10:04-0400 Body weight 84.82 kg MICROBIOLOGY INSTRUCTOR-C Michelle Podlogar MICROBIOLOGY INSTRUCTOR Work Phone: 1(966)187-247130 [place] [address] 08-12-2022 19:12-0400 Diastolic blood pressure 109 mm[Hg] MICROBIOLOGY INSTRUCTOR-C Michelle Podlogar MICROBIOLOGY INSTRUCTOR Work Phone: 0(590)715-711230 [place] [address] 08-12-2022 19:12-0400 Heart rate 68 /min MICROBIOLOGY INSTRUCTOR-C Michelle Podlogar MICROBIOLOGY INSTRUCTOR Work Phone: 9(966)066-708530 [place] [address] 08-12-2022 19:12-0400 Respiratory rate 94 /min MICROBIOLOGY INSTRUCTOR-C Michelle Podlogar MICROBIOLOGY INSTRUCTOR Work Phone: 5(217)985-291530 [place] [address] 08-12-2022 19:12-0400 SaO2% (BldA) [Mass fraction] 98 % MICROBIOLOGY INSTRUCTOR-C Michelle Podlogar MICROBIOLOGY INSTRUCTOR Work Phone: 5(144)041-443230 [place] [address] 08-12-2022 19:12-0400 Systolic blood pressure 160 mm[Hg] MICROBIOLOGY INSTRUCTOR-C Michelle Podlogar MICROBIOLOGY INSTRUCTOR Work Phone: 9(666)107-855330 [place] [address] 08-12-2022 18:32-0400 Body height 160.02 cm MICROBIOLOGY INSTRUCTOR-C Michelle Podlogar MICROBIOLOGY INSTRUCTOR Work Phone: 2(221)078-262430 [place] [address] 08-12-2022 18:32-0400 Body mass index (BMI) [Ratio] 33.7 kg/m2 MICROBIOLOGY INSTRUCTOR-C Michelle Podlogar MICROBIOLOGY INSTRUCTOR Work Phone: [facility] 08-12-2022 18:32-0400 Body temperature 98 [degF] MICROBIOLOGY INSTRUCTOR-C Michelle Podlogar MICROBIOLOGY INSTRUCTOR Work Phone: 7(526)725-471730 [place] [address] 08-12-2022 18:32-0400 Body weight 86.4 kg MICROBIOLOGY INSTRUCTOR-C Michelle Podlogar MICROBIOLOGY INSTRUCTOR Work Phone: 7(501)380-404430 [place] [address] 08-11-2022 15:44-0400 Diastolic blood pressure 94 mm[Hg] MICROBIOLOGY INSTRUCTOR-C Michelle Podlogar MICROBIOLOGY INSTRUCTOR Work Phone: 8(995)874-955030 [place] [address] 08-11-2022 15:44-0400 Heart rate 67 /min MICROBIOLOGY INSTRUCTOR-C Michelle Podlogar MICROBIOLOGY INSTRUCTOR Work Phone: 2(470)200-956630 [place] [address] 08-11-2022 15:44-0400 Respiratory rate 16 /min MICROBIOLOGY INSTRUCTOR-C Michelle Podlogar MICROBIOLOGY INSTRUCTOR Work Phone: 7(881)679-900030 [place] [address] 08-11-2022 15:44-0400 SaO2% (BldA) [Mass fraction] 99 % MICROBIOLOGY INSTRUCTOR-C Michelle Barreralogar MICROBIOLOGY INSTRUCTOR Work Phone: 2(082)755-478830 [place] [address] 08-11-2022 15:44-0400 Systolic blood pressure 175 mm[Hg] MICROBIOLOGY INSTRUCTOR-Hardik Martinez Podlogar MICROBIOLOGY INSTRUCTOR Work Phone: 7(590)359-287130 [place] [address] 08-11-2022 09:35-0400 Body height 160.02 cm MICROBIOLOGY INSTRUCTOR-Hardik Barreralogar MICROBIOLOGY INSTRUCTOR Work Phone: 5(181)389-144330 [place] [address] 08-11-2022 09:35-0400 Body mass index (BMI) [Ratio] 33.6 kg/m2 MICROBIOLOGY INSTRUCTOR-Hardik Martinez Podlogar MICROBIOLOGY INSTRUCTOR Work Phone: 5(134)457-506630 [place] [address] 08-11-2022 09:35-0400 Body temperature 97.6 [degF] MICROBIOLOGY INSTRUCTOR-Hardik Martinez Podlogar MICROBIOLOGY INSTRUCTOR Work Phone: 8(562)255-456430 [place] [address] 08-11-2022 09:35-0400 Body weight 86.18 kg MICROBIOLOGY INSTRUCTOR-Hardik Martinez Podlogar MICROBIOLOGY INSTRUCTOR Work Phone: 8(726)562-744330 [place] [address] 07-30-2022 09:34-0400 Diastolic blood pressure 62 mm[Hg] MICROBIOLOGY INSTRUCTOR-C Michelle Podlogar MICROBIOLOGY INSTRUCTOR Work Phone: 5(732)698-135930 [place] [address] 07-30-2022 09:34-0400 Heart rate 74 /min MICROBIOLOGY INSTRUCTOR-C Michelle Podlogar MICROBIOLOGY INSTRUCTOR Work Phone: 7(978)507-370330 [place] [address] 07-30-2022 09:34-0400 Respiratory rate 16 /min MICROBIOLOGY INSTRUCTOR-C Michelle Podlogar MICROBIOLOGY INSTRUCTOR Work Phone: 0(193)224-136130 [place] [address] 07-30-2022 09:34-0400 SaO2% (BldA) [Mass fraction] 99 % MICROBIOLOGY INSTRUCTOR-C Michelle Podlogar MICROBIOLOGY INSTRUCTOR Work Phone: 2(417)457-919730 [place] [address] 07-30-2022 09:34-0400 Systolic blood pressure 118 mm[Hg] MICROBIOLOGY INSTRUCTOR-C Michelle Podlogar MICROBIOLOGY INSTRUCTOR Work Phone: 6(924)800-863330 [place] [address] 07-30-2022 07:38-0400 Body height 160.02 cm MICROBIOLOGY INSTRUCTOR-C Michelle Podlogar MICROBIOLOGY INSTRUCTOR Work Phone: 3(399)225-202530 [place] [address] 07-30-2022 07:38-0400 Body mass index (BMI) [Ratio] 33.3 kg/m2 MICROBIOLOGY INSTRUCTOR-C Michelle Podlogar MICROBIOLOGY INSTRUCTOR Work Phone: 6(119)810-906230 [place] [address] 07-30-2022 07:38-0400 Body temperature 98 [degF] MICROBIOLOGY INSTRUCTOR-C Michelle Podlogar MICROBIOLOGY INSTRUCTOR Work Phone: 0(362)889-460730 [place] [address] 07-30-2022 07:38-0400 Body weight 85.4 kg MICROBIOLOGY INSTRUCTOR-C Michelle Podlogar MICROBIOLOGY INSTRUCTOR Work Phone: 3(132)400-773730 [place] [address] 07-25-2022 10:22-0400 Body temperature 97.2 [degF] MICROBIOLOGY INSTRUCTOR-C Michelle Podlogar MICROBIOLOGY INSTRUCTOR Work Phone: 2(842)669-555430 [place] [address] 07-25-2022 10:22-0400 Diastolic blood pressure 83 mm[Hg] MICROBIOLOGY INSTRUCTOR-C Michelle Podlogar MICROBIOLOGY INSTRUCTOR Work Phone: 1(775)272-224430 [place] [address] 07-25-2022 10:22-0400 Heart rate 61 /min MICROBIOLOGY INSTRUCTOR-C Michelle Podlogar MICROBIOLOGY INSTRUCTOR Work Phone: 6(105)[phone] [place] [address] 07-25-2022 10:22-0400 Respiratory rate 16 /min MICROBIOLOGY INSTRUCTOR-C Michelle Podlogar MICROBIOLOGY INSTRUCTOR Work Phone: 5(353)[phone] [place] [address] 07-25-2022 10:22-0400 SaO2% (BldA) [Mass fraction] 100 % MICROBIOLOGY INSTRUCTOR-C Michelle Podlogar MICROBIOLOGY INSTRUCTOR Work Phone: 2(278)[phone] [place] [address] 07-25-2022 10:22-0400 Systolic blood pressure 126 mm[Hg] MICROBIOLOGY INSTRUCTOR-C Michelle Podlogar MICROBIOLOGY INSTRUCTOR Work Phone: [phone] [place] [address] 07-25-2022 08:26-0400 Body mass index (BMI) [Ratio] 34.3 kg/m2 MICROBIOLOGY INSTRUCTOR-C Michelle Podlogar MICROBIOLOGY INSTRUCTOR Work Phone: 6(013)979-640430 [place] [address] 07-25-2022 08:26-0400 Body weight 87.99 kg MICROBIOLOGY INSTRUCTOR-C Michlele Podlogar MICROBIOLOGY INSTRUCTOR Work Phone: 0(631)228-141530 [place] [address] 07-13-2022 11:35-0500 Body height 160.02 cm MICROBIOLOGY INSTRUCTOR-C Michelle Podlogar MICROBIOLOGY INSTRUCTOR Work Phone: 2(042)986-947130 [place] [address] 07-13-2022 11:35-0500 Body mass index (BMI) [Ratio] 33.3 kg/m2 MICROBIOLOGY INSTRUCTOR-C Michelle Podlogar MICROBIOLOGY INSTRUCTOR Work Phone: 3(059)840-809330 [place] [address] 07-13-2022 11:35-0500 Body temperature 97.8 [degF] MICROBIOLOGY INSTRUCTOR-C Michelle Podlogar MICROBIOLOGY INSTRUCTOR Work Phone: 9(964)661-779830 [place] [address] 07-13-2022 11:35-0500 Body weight 85.27 kg MICROBIOLOGY INSTRUCTOR-C Michelle Podlogar MICROBIOLOGY INSTRUCTOR Work Phone: 2(291)703-523830 [place] [address] 07-13-2022 11:35-0500 Diastolic blood pressure 93 mm[Hg] MICROBIOLOGY INSTRUCTOR-C Michelle Podlogar MICROBIOLOGY INSTRUCTOR Work Phone: 6(845)902-565630 [place] [address] 07-13-2022 11:35-0500 Heart rate 82 /min MICROBIOLOGY INSTRUCTOR-C Michelle Podlogar MICROBIOLOGY INSTRUCTOR Work Phone: [facility] 07-13-2022 11:35-0500 Respiratory rate 16 /min MICROBIOLOGY INSTRUCTOR-C Michelle Podlogar MICROBIOLOGY INSTRUCTOR Work Phone: [facility] 07-13-2022 11:35-0500 SaO2% (BldA) [Mass fraction] 96 % MICROBIOLOGY INSTRUCTOR-C Michelle Podlogar MICROBIOLOGY INSTRUCTOR Work Phone: [facility] 07-13-2022 11:35-0500 Systolic blood pressure 132 mm[Hg] MICROBIOLOGY INSTRUCTOR-C Michelle Podlogar MICROBIOLOGY INSTRUCTOR Work Phone: [facility] 06-17-2022 15:06-0500 Body weight 86.36 kg Michelle Podlogar ASSESSMENT DIRECTOR.KITCHEN FOOD ASSEMBLER Work Phone: [facility] 06-17-2022 15:06-0500 Diastolic blood pressure 82 mm[Hg] Michelle Podlogar ASSESSMENT DIRECTOR.KITCHEN FOOD ASSEMBLER Work Phone: [facility] 06-17-2022 15:06-0500 Heart rate 87 /min Michelle Podlogar ASSESSMENT DIRECTOR.KITCHEN FOOD ASSEMBLER Work Phone: [facility] 06-17-2022 15:06-0500 Respiratory rate 16 /min Michelle Podlogar ASSESSMENT DIRECTOR.KITCHEN FOOD ASSEMBLER Work Phone: [facility] 06-17-2022 15:06-0500 SaO2% (BldA) [Mass fraction] 98 % Michelle Podlogar ASSESSMENT DIRECTOR.KITCHEN FOOD ASSEMBLER Work Phone: [facility] 06-17-2022 15:06-0500 Systolic blood pressure 114 mm[Hg] Michelle Podlogar ASSESSMENT DIRECTOR.KITCHEN FOOD ASSEMBLER Work Phone: [facility] 06-11-2022 08:48-0500 Body temperature 97.59 [degF] Geno Rodriges PA Work Phone: [facility] 06-11-2022 08:48-0500 Body weight 88 kg Dillonislyrama Aberegg PA Work Phone: [facility] 01-31-2023 08:48-0500 Diastolic blood pressure 84 mm[Hg] Krislyn Aberegg PA Work Phone: [facility] 06-11-2022 08:48-0500 Heart rate 80 /min Krislyn Aberegg PA Work Phone: [facility] 06-11-2022 08:48-0500 Respiratory rate 18 /min Krislyn Aberegg PA Work Phone: [facility] 06-11-2022 08:48-0500 SaO2% (BldA) [Mass fraction] 99 % Krislyn Aberegg PA Work Phone: [facility] 06-11-2022 08:48-0500 Systolic blood pressure 132 mm[Hg] Krislyn Aberegg PA Work Phone: [facility] 05-23-2022 00:44-0500 Diastolic blood pressure 80 mm[Hg] MICROBIOLOGY INSTRUCTOR-C Michelle Grimm MICROBIOLOGY INSTRUCTOR Work Phone: [facility] 05-23-2022 00:44-0500 Heart rate 81 /min MICROBIOLOGY INSTRUCTOR-Hardik Grimm MICROBIOLOGY INSTRUCTOR Work Phone: [facility] 05-23-2022 00:44-0500 Respiratory rate 18 /min MICROBIOLOGY INSTRUCTOR-Hardik Grimm MICROBIOLOGY INSTRUCTOR Work Phone: [facility] 05-23-2022 00:44-0500 Systolic blood pressure 136 mm[Hg] MICROBIOLOGY INSTRUCTOR-Hardik Grimm MICROBIOLOGY INSTRUCTOR Work Phone: [facility] 05-22-2022 22:42-0500 Body height 160.02 cm MICROBIOLOGY INSTRUCTOR-Hardik Grimm MICROBIOLOGY INSTRUCTOR Work Phone: [facility] Work Phone: 05-22-2022 22:42-0500 Body mass index (BMI) [Ratio] 34.4 kg/m2 MICROBIOLOGY INSTRUCTOREber Grimm MICROBIOLOGY INSTRUCTOR Work Phone: [facility] 05-22-2022 22:42-0500 Body temperature 98.6 [degF] MICROBIOLOGY INSTRUCTOR-C Michelle Podlogar MICROBIOLOGY INSTRUCTOR Work Phone: 9(553)428-451042 [place] [address] 05-22-2022 22:42-0500 Body weight 88.2 kg MICROBIOLOGY INSTRUCTOR-C Michelle Podlogar MICROBIOLOGY INSTRUCTOR Work Phone: 4(053)713-296930 [place] [address] 05-22-2022 22:42-0500 SaO2% (BldA) [Mass fraction] 100 % MICROBIOLOGY INSTRUCTOR-C Michelle Podlogar MICROBIOLOGY INSTRUCTOR Work Phone: 0(827)663-734342 [place] [address] 05-16-2022 12:04-0500 Diastolic blood pressure 74 mm[Hg] MICROBIOLOGY INSTRUCTOR-C Michelle Podlogar MICROBIOLOGY INSTRUCTOR Work Phone: 9(255)238-335830 [place] [address] 05-16-2022 12:04-0500 Heart rate 62 /min MICROBIOLOGY INSTRUCTOR-C Michelle Podlogar MICROBIOLOGY INSTRUCTOR Work Phone: 4(140)164-003630 [place] [address] 05-16-2022 12:04-0500 Respiratory rate 15 /min MICROBIOLOGY INSTRUCTOR-C Michelle Podlogar MICROBIOLOGY INSTRUCTOR Work Phone: 5(503)774-938230 [place] [address] 05-16-2022 12:04-0500 SaO2% (BldA) [Mass fraction] 98 % MICROBIOLOGY INSTRUCTOR-C Michelle Podlogar MICROBIOLOGY INSTRUCTOR Work Phone: 4(984)275-449130 [place] [address] 05-16-2022 12:04-0500 Systolic blood pressure 138 mm[Hg] MICROBIOLOGY INSTRUCTOR-C Michelle Podlogar MICROBIOLOGY INSTRUCTOR Work Phone: 1(150)921-734530 [place] [address] 05-16-2022 10:34-0500 Body temperature 96.7 [degF] MICROBIOLOGY INSTRUCTOR-C Michelle Podlogar MICROBIOLOGY INSTRUCTOR Work Phone: 1(458)879-698530 [place] [address] 05-16-2022 07:45-0500 Body height 160.02 cm MICROBIOLOGY INSTRUCTOR-C Michelle Podlogar MICROBIOLOGY INSTRUCTOR Work Phone: 0(457)897-447042 [place] [address] Work Phone: 05-16-2022 07:45-0500 Body mass index (BMI) [Ratio] 36.3 kg/m2 MICROBIOLOGY INSTRUCTOR-Hardik Martinez Podlogar MICROBIOLOGY INSTRUCTOR Work Phone: 9(952)374-532542 [place] [address] 05-16-2022 07:45-0500 Body weight 92.98 kg MICROBIOLOGY INSTRUCTOR-C Michelle Podlogar MICROBIOLOGY INSTRUCTOR Work Phone: [facility] 05-14-2022 08:35-0500 Diastolic blood pressure 89 mm[Hg] Michelle Podlogar ASSESSMENT DIRECTOR.KITCHEN FOOD ASSEMBLER Work Phone: [facility] 05-14-2022 08:35-0500 Systolic blood pressure 132 mm[Hg] Michelle Podlogar ASSESSMENT DIRECTOR.KITCHEN FOOD ASSEMBLER Work Phone: [facility] 05-14-2022 08:12-0500 Body height 162.6 cm Michelle Podlogar ASSESSMENT DIRECTOR.KITCHEN FOOD ASSEMBLER Work Phone: [facility] 05-14-2022 08:12-0500 Body weight 88.36 kg Michelle Podlogar ASSESSMENT DIRECTOR.KITCHEN FOOD ASSEMBLER Work Phone: [facility] 05-14-2022 08:12-0500 Heart rate 81 /min Michelle Podlogar ASSESSMENT DIRECTOR.KITCHEN FOOD ASSEMBLER Work Phone: [facility] 05-14-2022 08:12-0500 SaO2% (BldA) [Mass fraction] 100 % Michelle Podlogar ASSESSMENT DIRECTOR.KITCHEN FOOD ASSEMBLER Work Phone: [facility] 05-10-2022 10:18-0500 Body temperature 98.01 [degF] [facility] ASSESSMENT DIRECTOR.KITCHEN FOOD ASSEMBLER Work Phone: [facility] 05-10-2022 10:18-0500 Body weight 89.27 kg [facility] ASSESSMENT DIRECTOR.KITCHEN FOOD ASSEMBLER Work Phone: [facility] 05-10-2022 10:18-0500 Diastolic blood pressure 88 mm[Hg] [facility] ASSESSMENT DIRECTOR.KITCHEN FOOD ASSEMBLER Work Phone: [facility] 05-10-2022 10:18-0500 Heart rate 100 /min [facility] ASSESSMENT DIRECTOR.KITCHEN FOOD ASSEMBLER Work Phone: [facility] 05-10-2022 10:18-0500 Respiratory rate 20 /min [facility] ASSESSMENT DIRECTOR.KITCHEN FOOD ASSEMBLER Work Phone: [facility] 05-10-2022 10:18-0500 SaO2% (BldA) [Mass fraction] 96 % Carrillo Hudson APRN.KITCHEN FOOD ASSEMBLER Work Phone: [facility] 05-10-2022 10:18-0500 Systolic blood pressure 126 mm[Hg] Carrillo Hudson APRN.KITCHEN FOOD ASSEMBLER Work Phone: [facility] 04-19-2022 08:47-0500 Body temperature 99.1 [degF] Alanna Mao APRN.KITCHEN FOOD ASSEMBLER Work Phone: [facility] 04-19-2022 08:47-0500 Body weight 86.36 kg Alanna Mao APRN.KITCHEN FOOD ASSEMBLER Work Phone: [facility] 04-19-2022 08:47-0500 Diastolic blood pressure 78 mm[Hg] Alanna Mao APRN.KITCHEN FOOD ASSEMBLER Work Phone: [facility] 04-19-2022 08:47-0500 Heart rate 94 /min Alanna Mao APRN.KITCHEN FOOD ASSEMBLER Work Phone: [facility] 04-19-2022 08:47-0500 Respiratory rate 16 /min Alanna Mao APRN.KITCHEN FOOD ASSEMBLER Work Phone: [facility] 04-19-2022 08:47-0500 SaO2% (BldA) [Mass fraction] 97 % Alanna Mao APRN.KITCHEN FOOD ASSEMBLER Work Phone: [facility] 04-19-2022 08:47-0500 Systolic blood pressure 142 mm[Hg] Alanna Mao APRN.KITCHEN FOOD ASSEMBLER Work Phone: [facility] 04-13-2022 10:57-0500 Body height 160.02 cm MICROBIOLOGY INSTRUCTOR-Hardik Grimm MICROBIOLOGY INSTRUCTOR Work Phone: [facility] Work Phone: 04-13-2022 10:57-0500 Body mass index (BMI) [Ratio] 31.8 kg/m2 MICROBIOLOGY INSTRUCTOREber Grimm MICROBIOLOGY INSTRUCTOR Work Phone: [facility] 04-13-2022 10:57-0500 Body temperature 97.6 [degF] MICROBIOLOGY INSTRUCTOR-C Michelle Podlogar MICROBIOLOGY INSTRUCTOR Work Phone: [facility] 04-13-2022 10:57-0500 Body weight 81.64 kg MICROBIOLOGY INSTRUCTOR-C Michelle Podlogar MICROBIOLOGY INSTRUCTOR Work Phone: 8(577)952-168842 [place] [address] 04-13-2022 10:57-0500 Diastolic blood pressure 93 mm[Hg] MICROBIOLOGY INSTRUCTOR-C Michelle Podlogar MICROBIOLOGY INSTRUCTOR Work Phone: 1(549)024-062042 [place] [address] 04-13-2022 10:57-0500 Heart rate 100 /min MICROBIOLOGY INSTRUCTOR-C Michelle Podlogar MICROBIOLOGY INSTRUCTOR Work Phone: 7(021)198-786842 [place] [address] 04-13-2022 10:57-0500 Respiratory rate 18 /min MICROBIOLOGY INSTRUCTOR-C Michelle Podlogar MICROBIOLOGY INSTRUCTOR Work Phone: 7(668)060-547930 [place] [address] 04-13-2022 10:57-0500 SaO2% (BldA) [Mass fraction] 98 % MICROBIOLOGY INSTRUCTOR-C Michelle Podlogar MICROBIOLOGY INSTRUCTOR Work Phone: 4(232)861-952142 [place] [address] 04-13-2022 10:57-0500 Systolic blood pressure 128 mm[Hg] MICROBIOLOGY INSTRUCTOR-C Michelle Podlogar MICROBIOLOGY INSTRUCTOR Work Phone: 4(811)525-867330 [place] [address] 04-10-2022 20:03-0500 Diastolic blood pressure 60 mm[Hg] MICROBIOLOGY INSTRUCTOR-C Michelle Podlogar MICROBIOLOGY INSTRUCTOR Work Phone: 6(816)421-920930 [place] [address] 04-10-2022 20:03-0500 Heart rate 78 /min MICROBIOLOGY INSTRUCTOR-C Michelle Podlogar MICROBIOLOGY INSTRUCTOR Work Phone: 5(201)709-914542 [place] [address] 04-10-2022 20:03-0500 Respiratory rate 18 /min MICROBIOLOGY INSTRUCTOR-C Michelle Podlogar MICROBIOLOGY INSTRUCTOR Work Phone: 9(063)077-032630 [place] [address] 04-10-2022 20:03-0500 Systolic blood pressure 128 mm[Hg] MICROBIOLOGY INSTRUCTOR-C Michelle Podlogar MICROBIOLOGY INSTRUCTOR Work Phone: 4(183)155-173730 [place] [address] 04-10-2022 16:02-0500 Body mass index (BMI) [Ratio] 31.8 kg/m2 MICROBIOLOGY INSTRUCTOR-C Michelle Podlogar MICROBIOLOGY INSTRUCTOR Work Phone: 5(481)645-222430 [place] [address] 04-10-2022 16:02-0500 Body temperature 97.8 [degF] MICROBIOLOGY INSTRUCTOR-C Michelle Podlogar MICROBIOLOGY INSTRUCTOR Work Phone: [facility] 04-10-2022 16:02-0500 Body weight 81.64 kg MICROBIOLOGY INSTRUCTOR-C Michelle Podlogar MICROBIOLOGY INSTRUCTOR Work Phone: [facility] 04-10-2022 16:02-0500 SaO2% (BldA) [Mass fraction] 100 % MICROBIOLOGY INSTRUCTOR-C Michelle Podlogar MICROBIOLOGY INSTRUCTOR Work Phone: [facility] 03-23-2022 08:18-0500 Body temperature 97.7 [degF] Nicole Praisler-Wood ASSESSMENT DIRECTOR.KITCHEN FOOD ASSEMBLER Work Phone: [facility] 03-23-2022 08:18-0500 Body weight 89.63 kg Nicole Praisler-Wood ASSESSMENT DIRECTOR.KITCHEN FOOD ASSEMBLER Work Phone: [facility] 03-23-2022 08:18-0500 Diastolic blood pressure 96 mm[Hg] Nicole Praisler-Wood ASSESSMENT DIRECTOR.KITCHEN FOOD ASSEMBLER Work Phone: [facility] 03-23-2022 08:18-0500 Heart rate 90 /min Nicole Praisler-Wood ASSESSMENT DIRECTOR.KITCHEN FOOD ASSEMBLER Work Phone: [facility] 03-23-2022 08:18-0500 Respiratory rate 20 /min Nicole Praisler-Wood ASSESSMENT DIRECTOR.KITCHEN FOOD ASSEMBLER Work Phone: [facility] 03-23-2022 08:18-0500 SaO2% (BldA) [Mass fraction] 96 % Nicole Praisler-Wood ASSESSMENT DIRECTOR.KITCHEN FOOD ASSEMBLER Work Phone: [facility] 03-23-2022 08:18-0500 Systolic blood pressure 134 mm[Hg] Nicole Praisler-Wood ASSESSMENT DIRECTOR.KITCHEN FOOD ASSEMBLER Work Phone: [facility] 02-19-2022 21:16-0400 Diastolic blood pressure 101 mm[Hg] MICROBIOLOGY INSTRUCTOR-C Michelle Podlogar MICROBIOLOGY INSTRUCTOR Work Phone: [facility] Work Phone: 02-19-2022 21:16-0400 Heart rate 64 /min MICROBIOLOGY INSTRUCTOR-C Michelle Barreralogar MICROBIOLOGY INSTRUCTOR Work Phone: [facility] Work Phone: 02-19-2022 21:16-0400 Respiratory rate 16 /min MICROBIOLOGY INSTRUCTOR-C Michelle Barreralogar MICROBIOLOGY INSTRUCTOR Work Phone: [facility] Work Phone: 02-19-2022 21:16-0400 SaO2% (BldA) [Mass fraction] 98 % MICROBIOLOGY INSTRUCTOR-C Michelle Grimm MICROBIOLOGY INSTRUCTOR Work Phone: [facility] Work Phone: 02-19-2022 21:16-0400 Systolic blood pressure 142 mm[Hg] MICROBIOLOGY INSTRUCTOR-C Michelle Barreralogkarolina MICROBIOLOGY INSTRUCTOR Work Phone: [facility] Work Phone: 02-19-2022 16:44-0400 Body height 160.02 cm MICROBIOLOGY INSTRUCTOR-C Michelle Barreralogkarolina MICROBIOLOGY INSTRUCTOR Work Phone: [facility] Work Phone: 02-19-2022 16:44-0400 Body mass index (BMI) [Ratio] 34.5 kg/m2 MICROBIOLOGY INSTRUCTOR-C Michelle Barreralogar MICROBIOLOGY INSTRUCTOR Work Phone: [facility] Work Phone: 02-19-2022 16:44-0400 Body temperature 97.7 [degF] MICROBIOLOGY INSTRUCTOR-C Michelle Barreralogkarolina MICROBIOLOGY INSTRUCTOR Work Phone: [facility] Work Phone: 02-19-2022 16:44-0400 Body weight 88.4 kg MICROBIOLOGY INSTRUCTOR-C Michelle Barreralogar MICROBIOLOGY INSTRUCTOR Work Phone: [facility] Work Phone: 02-11-2022 09:59-0400 Diastolic blood pressure 76 mm[Hg] Michelle Grimm APRN.KITCHEN FOOD ASSEMBLER Work Phone: [facility] 02-11-2022 09:59-0400 Heart rate 74 /min Michelle Podlogar ASSESSMENT DIRECTOR.KITCHEN FOOD ASSEMBLER Work Phone: [facility] 02-11-2022 09:59-0400 Respiratory rate 18 /min Michelle Podlogar ASSESSMENT DIRECTOR.KITCHEN FOOD ASSEMBLER Work Phone: [facility] 02-11-2022 09:59-0400 SaO2% (BldA) [Mass fraction] 100 % Michelle Podlogar ASSESSMENT DIRECTOR.KITCHEN FOOD ASSEMBLER Work Phone: [facility] 02-11-2022 09:59-0400 Systolic blood pressure 114 mm[Hg] Michelle Podlogar ASSESSMENT DIRECTOR.KITCHEN FOOD ASSEMBLER Work Phone: [facility] 01-28-2022 09:11-0400 Diastolic blood pressure 101 mm[Hg] Michelle Podlogar ASSESSMENT DIRECTOR.KITCHEN FOOD ASSEMBLER Work Phone: [facility] 01-28-2022 09:11-0400 Heart rate 76 /min Michelle Podlogar ASSESSMENT DIRECTOR.KITCHEN FOOD ASSEMBLER Work Phone: [facility] 01-28-2022 09:11-0400 Systolic blood pressure 146 mm[Hg] Michelle Podlogar ASSESSMENT DIRECTOR.KITCHEN FOOD ASSEMBLER Work Phone: [facility] 01-28-2022 08:24-0400 Body weight 89.72 kg Michelle Podlogar ASSESSMENT DIRECTOR.KITCHEN FOOD ASSEMBLER Work Phone: [facility] 01-28-2022 08:24-0400 Respiratory rate 18 /min Michelle Podlogar ASSESSMENT DIRECTOR.KITCHEN FOOD ASSEMBLER Work Phone: [facility] 01-28-2022 08:24-0400 SaO2% (BldA) [Mass fraction] 98 % Michelle Podlogar ASSESSMENT DIRECTOR.KITCHEN FOOD ASSEMBLER Work Phone: [facility] 01-24-2022 23:40-0400 Diastolic blood pressure 90 mm[Hg] MICROBIOLOGY INSTRUCTOR-C Michelle Podlogar MICROBIOLOGY INSTRUCTOR Work Phone: [facility] Work Phone: 01-24-2022 23:40-0400 Heart rate 85 /min MICROBIOLOGY INSTRUCTOR-C Michelle Podlogar MICROBIOLOGY INSTRUCTOR Work Phone: [facility] Work Phone: 01-24-2022 23:40-0400 Respiratory rate 19 /min MICROBIOLOGY INSTRUCTOR-C Michelle Grimm MICROBIOLOGY INSTRUCTOR Work Phone: [facility] Work Phone: 01-24-2022 23:40-0400 SaO2% (BldA) [Mass fraction] 98 % MICROBIOLOGY INSTRUCTOR-C Michelle Grimm MICROBIOLOGY INSTRUCTOR Work Phone: [facility] Work Phone: 01-24-2022 23:40-0400 Systolic blood pressure 130 mm[Hg] MICROBIOLOGY INSTRUCTOR-C Michelle Grimm MICROBIOLOGY INSTRUCTOR Work Phone: [facility] Work Phone: 01-24-2022 20:01-0400 Body height 160.02 cm MICROBIOLOGY INSTRUCTOR-C Michelle Grimm MICROBIOLOGY INSTRUCTOR Work Phone: [facility] Work Phone: 01-24-2022 20:01-0400 Body mass index (BMI) [Ratio] 35.4 kg/m2 MICROBIOLOGY INSTRUCTOR-C Michelle Grimm MICROBIOLOGY INSTRUCTOR Work Phone: [facility] Work Phone: 01-24-2022 20:01-0400 Body temperature 98.4 [degF] MICROBIOLOGY INSTRUCTOR-C Michelle Grimm MICROBIOLOGY INSTRUCTOR Work Phone: [facility] Work Phone: 01-24-2022 20:01-0400 Body weight 90.71 kg MICROBIOLOGY INSTRUCTOR-C Michelle Grimm MICROBIOLOGY INSTRUCTOR Work Phone: [facility] Work Phone: 01-01-2022 10:40-0400 Diastolic blood pressure 63 mm[Hg] MICROBIOLOGY INSTRUCTOR-C Michelle Barreralogkarolina MICROBIOLOGY INSTRUCTOR Work Phone: [facility] Work Phone: 01-01-2022 10:40-0400 Heart rate 71 /min MICROBIOLOGY INSTRUCTOR-C Michelle Barreralogkarolina MICROBIOLOGY INSTRUCTOR Work Phone: [facility] Work Phone: 01-01-2022 10:40-0400 Respiratory rate 15 /min MICROBIOLOGY INSTRUCTOR-C Michelle Grimm MICROBIOLOGY INSTRUCTOR Work Phone: [facility] Work Phone: 01-01-2022 10:40-0400 SaO2% (BldA) [Mass fraction] 98 % MICROBIOLOGY INSTRUCTOR-C Michelle Grimm MICROBIOLOGY INSTRUCTOR Work Phone: [facility] Work Phone: 01-01-2022 10:40-0400 Systolic blood pressure 124 mm[Hg] MICROBIOLOGY INSTRUCTOR-C Michelle Grimm MICROBIOLOGY INSTRUCTOR Work Phone: [facility] Work Phone: 01-01-2022 08:28-0400 Body height 160.02 cm MICROBIOLOGY INSTRUCTOR-C Michelle Grimm MICROBIOLOGY INSTRUCTOR Work Phone: [facility] Work Phone: 01-01-2022 08:28-0400 Body mass index (BMI) [Ratio] 34.2 kg/m2 MICROBIOLOGY INSTRUCTOR-C Michelle Grimm MICROBIOLOGY INSTRUCTOR Work Phone: [facility] Work Phone: 01-01-2022 08:28-0400 Body temperature 98.4 [degF] MICROBIOLOGY INSTRUCTOR-C Michelle Barreralogkarolina MICROBIOLOGY INSTRUCTOR Work Phone: [facility] Work Phone: 01-01-2022 08:28-0400 Body weight 87.6 kg MICROBIOLOGY INSTRUCTOR-C Michelle Grimm MICROBIOLOGY INSTRUCTOR Work Phone: [facility] Work Phone: 12-19-2021 08:43-0400 Body temperature 97.5 [degF] Alanna Mao APRN.KITCHEN FOOD ASSEMBLER Work Phone: [facility] 12-19-2021 08:43-0400 Body weight 90.54 kg Alanna Mao APRN.KITCHEN FOOD ASSEMBLER Work Phone: [facility] 12-19-2021 08:43-0400 Diastolic blood pressure 88 mm[Hg] Alanna Mao APRN.KITCHEN FOOD ASSEMBLER Work Phone: [facility] 12-19-2021 08:43-0400 Heart rate 76 /min Alanna Mao APRN.KITCHEN FOOD ASSEMBLER Work Phone: [facility] 12-19-2021 08:43-0400 Respiratory rate 21 /min Alanna Mao ASSESSMENT DIRECTOR.KITCHEN FOOD ASSEMBLER Work Phone: [facility] 12-19-2021 08:43-0400 SaO2% (BldA) [Mass fraction] 98 % Alanna Mao APRN.KITCHEN FOOD ASSEMBLER Work Phone: [facility] 12-19-2021 08:43-0400 Systolic blood pressure 142 mm[Hg] Alanna Mao ASSESSMENT DIRECTOR.KITCHEN FOOD ASSEMBLER Work Phone: [facility] 11-21-2021 17:03-0400 Diastolic blood pressure 107 mm[Hg] MICROBIOLOGY INSTRUCTOR-C Michelle Podlogar MICROBIOLOGY INSTRUCTOR Work Phone: [facility] Work Phone: 11-21-2021 17:03-0400 Heart rate 71 /min MICROBIOLOGY INSTRUCTOR-C Michelle Podlogar MICROBIOLOGY INSTRUCTOR Work Phone: [facility] Work Phone: 11-21-2021 17:03-0400 Respiratory rate 16 /min MICROBIOLOGY INSTRUCTOR-C Michelle Podlogar MICROBIOLOGY INSTRUCTOR Work Phone: [facility] Work Phone: 11-21-2021 17:03-0400 SaO2% (BldA) [Mass fraction] 100 % MICROBIOLOGY INSTRUCTOR-C Michelle Podlogar MICROBIOLOGY INSTRUCTOR Work Phone: [facility] Work Phone: 11-21-2021 17:03-0400 Systolic blood pressure 149 mm[Hg] MICROBIOLOGY INSTRUCTOR-C Michelle Podlogar MICROBIOLOGY INSTRUCTOR Work Phone: [facility] Work Phone: 11-21-2021 14:47-0400 Body height 160.02 cm MICROBIOLOGY INSTRUCTOR-C Michelle Podlogar MICROBIOLOGY INSTRUCTOR Work Phone: [facility] Work Phone: 11-21-2021 14:47-0400 Body mass index (BMI) [Ratio] 34 kg/m2 MICROBIOLOGY INSTRUCTOR-C Michelle Barreralogar MICROBIOLOGY INSTRUCTOR Work Phone: [facility] Work Phone: 11-21-2021 14:47-0400 Body temperature 98.1 [degF] MICROBIOLOGY INSTRUCTOR-C Michelle Grimm MICROBIOLOGY INSTRUCTOR Work Phone: [facility] Work Phone: 11-21-2021 14:47-0400 Body weight 87.08 kg MICROBIOLOGY INSTRUCTOR-C Michelle Barreralogkarolina MICROBIOLOGY INSTRUCTOR Work Phone: [facility] Work Phone: 11-15-2021 07:28-0400 Body temperature 98 [degF] MICROBIOLOGY INSTRUCTOR-C Michelle Grimm MICROBIOLOGY INSTRUCTOR Work Phone: [facility] Work Phone: 11-15-2021 07:28-0400 Diastolic blood pressure 78 mm[Hg] MICROBIOLOGY INSTRUCTOR-C Michelle Grimm MICROBIOLOGY INSTRUCTOR Work Phone: [facility] Work Phone: 11-15-2021 07:28-0400 Heart rate 81 /min MICROBIOLOGY INSTRUCTOR-C Michelle Barreralogar MICROBIOLOGY INSTRUCTOR Work Phone: [facility] Work Phone: 11-15-2021 07:28-0400 Respiratory rate 16 /min MICROBIOLOGY INSTRUCTOR-C Michelle Barreralogkarolina MICROBIOLOGY INSTRUCTOR Work Phone: [facility] Work Phone: 11-15-2021 07:28-0400 SaO2% (BldA) [Mass fraction] 100 % MICROBIOLOGY INSTRUCTOR-C Michelle Barreralogar MICROBIOLOGY INSTRUCTOR Work Phone: [facility] Work Phone: 11-15-2021 07:28-0400 Systolic blood pressure 110 mm[Hg] MICROBIOLOGY INSTRUCTOR-C Michelle Grimm MICROBIOLOGY INSTRUCTOR Work Phone: [facility] Work Phone: 11-15-2021 05:53-0400 Body mass index (BMI) [Ratio] 34.1 kg/m2 MICROBIOLOGY INSTRUCTOR-Hardik Barreralogar MICROBIOLOGY INSTRUCTOR Work Phone: [facility] Work Phone: 11-15-2021 05:53-0400 Body weight 87.4 kg MICROBIOLOGY INSTRUCTOR-C Michelle Barreralogkarolina MICROBIOLOGY INSTRUCTOR Work Phone: [facility] Work Phone: 09-30-2021 20:18-0400 Diastolic blood pressure 88 mm[Hg] MICROBIOLOGY INSTRUCTOR-C Michelle Barreralogar MICROBIOLOGY INSTRUCTOR Work Phone: [facility] Work Phone: 09-30-2021 20:18-0400 Heart rate 65 /min MICROBIOLOGY INSTRUCTOR-Hardik Barreralogkarolina MICROBIOLOGY INSTRUCTOR Work Phone: [facility] Work Phone: 09-30-2021 20:18-0400 Respiratory rate 18 /min MICROBIOLOGY INSTRUCTOR-C Michelle Barreralogkarolina MICROBIOLOGY INSTRUCTOR Work Phone: [facility] Work Phone: 09-30-2021 20:18-0400 SaO2% (BldA) [Mass fraction] 98 % MICROBIOLOGY INSTRUCTOR-Hardik Grimm MICROBIOLOGY INSTRUCTOR Work Phone: [facility] Work Phone: 09-30-2021 20:18-0400 Systolic blood pressure 160 mm[Hg] MICROBIOLOGY INSTRUCTOR-Hardik Grimm MICROBIOLOGY INSTRUCTOR Work Phone: [facility] Work Phone: 09-30-2021 16:03-0400 Body height 160.02 cm MICROBIOLOGY INSTRUCTOR-Hardik Barreralogar MICROBIOLOGY INSTRUCTOR Work Phone: [facility] Work Phone: 09-30-2021 16:03-0400 Body mass index (BMI) [Ratio] 34.3 kg/m2 MICROBIOLOGY INSTRUCTOR-C Michelle Barreralogkarolina MICROBIOLOGY INSTRUCTOR Work Phone: [facility] Work Phone: 09-30-2021 16:03-0400 Body temperature 98.5 [degF] MICROBIOLOGY INSTRUCTOR-Hardik Grimm MICROBIOLOGY INSTRUCTOR Work Phone: [facility] Work Phone: 09-30-2021 16:03-0400 Body weight 87.99 kg MICROBIOLOGY INSTRUCTOR-Hardik Grimm MICROBIOLOGY INSTRUCTOR Work Phone: [facility] Work Phone: 09-26-2021 11:37-0400 Diastolic blood pressure 90 mm[Hg] MICROBIOLOGY INSTRUCTOR-Hardik Grimm MICROBIOLOGY INSTRUCTOR Work Phone: [facility] Work Phone: 09-26-2021 11:37-0400 Heart rate 59 /min MICROBIOLOGY INSTRUCTOR-Hardik Grimm MICROBIOLOGY INSTRUCTOR Work Phone: [facility] Work Phone: 09-26-2021 11:37-0400 Respiratory rate 14 /min MICROBIOLOGY INSTRUCTOR-Hardik Grimm MICROBIOLOGY INSTRUCTOR Work Phone: [facility] Work Phone: 09-26-2021 11:37-0400 SaO2% (BldA) [Mass fraction] 100 % MICROBIOLOGY INSTRUCTOR-Hardik Grimm MICROBIOLOGY INSTRUCTOR Work Phone: [facility] Work Phone: 09-26-2021 11:37-0400 Systolic blood pressure 152 mm[Hg] MICROBIOLOGY INSTRUCTOR-Hardik Grimm MICROBIOLOGY INSTRUCTOR Work Phone: [facility] Work Phone: 09-26-2021 07:46-0400 Body height 160.02 cm MICROBIOLOGY INSTRUCTOR-Hardik Grimm MICROBIOLOGY INSTRUCTOR Work Phone: [facility] Work Phone: 09-26-2021 07:46-0400 Body mass index (BMI) [Ratio] 34.4 kg/m2 MICROBIOLOGY INSTRUCTOR-Hardik Grimm MICROBIOLOGY INSTRUCTOR Work Phone: [facility] Work Phone: 09-26-2021 07:46-0400 Body temperature 97.6 [degF] MICROBIOLOGY INSTRUCTOR-C Michelle Grimm MICROBIOLOGY INSTRUCTOR Work Phone: [facility] Work Phone: 09-26-2021 07:46-0400 Body weight 88.2 kg MICROBIOLOGY INSTRUCTOR-C Michelle Grimm MICROBIOLOGY INSTRUCTOR Work Phone: [facility] Work Phone: 08-15-2021 13:36-0400 Body mass index (BMI) [Ratio] 33.9 kg/m2 MICROBIOLOGY INSTRUCTOR-C Michelle Grimm MICROBIOLOGY INSTRUCTOR Work Phone: [facility] Work Phone: 08-15-2021 13:36-0400 Body weight 86.86 kg MICROBIOLOGY INSTRUCTOR-C Michelle Grimm MICROBIOLOGY INSTRUCTOR Work Phone: [facility] Work Phone: 08-15-2021 13:36-0400 Diastolic blood pressure 79 mm[Hg] MICROBIOLOGY INSTRUCTOR-C Michelle Grimm MICROBIOLOGY INSTRUCTOR Work Phone: [facility] Work Phone: 08-15-2021 13:36-0400 Heart rate 100 /min MICROBIOLOGY INSTRUCTOR-C Michelle Grimm MICROBIOLOGY INSTRUCTOR Work Phone: [facility] Work Phone: 08-15-2021 13:36-0400 Respiratory rate 18 /min MICROBIOLOGY INSTRUCTOR-C Michelle Grimm MICROBIOLOGY INSTRUCTOR Work Phone: [facility] Work Phone: 08-15-2021 13:36-0400 SaO2% (BldA) [Mass fraction] 98 % MICROBIOLOGY INSTRUCTOR-Hardik Grimm MICROBIOLOGY INSTRUCTOR Work Phone: [facility] Work Phone: 08-15-2021 13:36-0400 Systolic blood pressure 117 mm[Hg] MICROBIOLOGY INSTRUCTOR-C Michelle Podlogar MICROBIOLOGY INSTRUCTOR Work Phone: [facility] Work Phone: 08-15-2021 13:36-0400 Body mass index (BMI) [Ratio] 33.9 kg/m2 MICROBIOLOGY INSTRUCTOR-C Michelle Podlogar MICROBIOLOGY INSTRUCTOR Work Phone: [facility] Work Phone: 08-15-2021 13:36-0400 Body weight 86.86 kg MICROBIOLOGY INSTRUCTOR-C Michelle Podlogar MICROBIOLOGY INSTRUCTOR Work Phone: [facility] Work Phone: 08-15-2021 13:36-0400 Diastolic blood pressure 79 mm[Hg] MICROBIOLOGY INSTRUCTOR-C Michelle Podlogar MICROBIOLOGY INSTRUCTOR Work Phone: [facility] Work Phone: 08-15-2021 13:36-0400 Heart rate 100 /min MICROBIOLOGY INSTRUCTOR-C Michelle Podlogar MICROBIOLOGY INSTRUCTOR Work Phone: [facility] Work Phone: 08-15-2021 13:36-0400 Respiratory rate 18 /min MICROBIOLOGY INSTRUCTOR-C Michelle Podlogar MICROBIOLOGY INSTRUCTOR Work Phone: [facility] Work Phone: 08-15-2021 13:36-0400 SaO2% (BldA) [Mass fraction] 98 % MICROBIOLOGY INSTRUCTOR-C Michelle Podlogar MICROBIOLOGY INSTRUCTOR Work Phone: [facility] Work Phone: 08-15-2021 13:36-0400 Systolic blood pressure 117 mm[Hg] MICROBIOLOGY INSTRUCTOR-C Michelle Podlogar MICROBIOLOGY INSTRUCTOR Work Phone: [facility] Work Phone: 08-07-2021 10:44-0400 Body weight 86.18 kg Jani Keating APRN.BLANCHE, DNP Work Phone: [facility] 08-07-2021 10:44-0400 Diastolic blood pressure 98 mm[Hg] Jani Keating APRN.CNP DNP Work Phone: [facility] 08-07-2021 10:44-0400 Heart rate 94 /min Jani Keating ASSESSMENT DIRECTOR.KITCHEN FOOD ASSEMBLER, DNP Work Phone: [facility] 08-07-2021 10:44-0400 Respiratory rate 14 /min Jani Keating APRN.KITCHEN FOOD ASSEMBLER, DNP Work Phone: [facility] 08-07-2021 10:44-0400 SaO2% (BldA) [Mass fraction] 98 % Jani Keating APRN.KITCHEN FOOD ASSEMBLER, DNP Work Phone: [facility] 08-07-2021 10:44-0400 Systolic blood pressure 146 mm[Hg] Jani Keating APRN.KITCHEN FOOD ASSEMBLER, DNP Work Phone: [facility] 08-06-2021 19:49-0400 Body temperature 97.11 [degF] Yu Castillo MD Work Phone: [facility] 08-06-2021 19:49-0400 Body weight 86.18 kg Yu Castillo MD Work Phone: [facility] 08-06-2021 19:49-0400 Diastolic blood pressure 102 mm[Hg] Yu Castillo MD Work Phone: [facility] 08-06-2021 19:49-0400 Heart rate 92 /min Yu Castillo MD Work Phone: [facility] 08-06-2021 19:49-0400 Respiratory rate 16 /min Yu Castillo MD Work Phone: [facility] 08-06-2021 19:49-0400 SaO2% (BldA) [Mass fraction] 97 % Yu Castillo MD Work Phone: [facility] 08-06-2021 19:49-0400 Systolic blood pressure 148 mm[Hg] Yu Castillo MD Work Phone: [facility] 06-20-2021 14:52-0500 Diastolic blood pressure 76 mm[Hg] SIXTO Grimm NP Work Phone: [facility] Work Phone: 06-20-2021 14:52-0500 Heart rate 88 /min MICROBIOLOGY INSTRUCTOR-C Michelle Podlogar MICROBIOLOGY INSTRUCTOR Work Phone: [facility] Work Phone: 06-20-2021 14:52-0500 Respiratory rate 15 /min MICROBIOLOGY INSTRUCTOR-C Michelle Podlogar MICROBIOLOGY INSTRUCTOR Work Phone: [facility] Work Phone: 06-20-2021 14:52-0500 SaO2% (BldA) [Mass fraction] 97 % MICROBIOLOGY INSTRUCTOR-C Michelle Podlogar MICROBIOLOGY INSTRUCTOR Work Phone: [facility] Work Phone: 06-20-2021 14:52-0500 Systolic blood pressure 140 mm[Hg] MICROBIOLOGY INSTRUCTOR-C Michelle Podlogar MICROBIOLOGY INSTRUCTOR Work Phone: [facility] Work Phone: 06-20-2021 10:45-0500 Body mass index (BMI) [Ratio] 33.3 kg/m2 MICROBIOLOGY INSTRUCTOR-C Michelle Podlogar MICROBIOLOGY INSTRUCTOR Work Phone: [facility] Work Phone: 06-20-2021 10:45-0500 Body temperature 98.3 [degF] MICROBIOLOGY INSTRUCTOR-C Michelle Podlogar MICROBIOLOGY INSTRUCTOR Work Phone: [facility] Work Phone: 06-20-2021 10:45-0500 Body weight 85.5 kg MICROBIOLOGY INSTRUCTOR-C Michelle Podlogar MICROBIOLOGY INSTRUCTOR Work Phone: [facility] Work Phone: Encounters Encounter Date Encounter Type Care Provider Facility Start: 10-14-2024 ambulatory Vick Redmond lity:[facility] Start: 10-13-2024 Encounter for other preprocedural examination Bennie Alon [facility] Start: 10-05-2024 ambulatory Lissa Pollack ty:BRENDA Start: 09-27-2024 End: 09-27-2024 Patient encounter procedure Bennie Javon Nobles MD Work Phone: OB/Gynecology Comment on above: Submucous leiomyoma of uterus (Primary Dx); Adenomyosis; Abnormal uterine bleeding (AUB); Pre-op exam Start: 09-27-2024 End: 09-27-2024 Preprocedural examination done Bennie Nobles MD Work Phone: [facility] Start: 09-27-2024 End: 09-27-2024 ambulatory BENNIE NOBLES Facility:[facility] Start: 09-19-2024 End: 09-19-2024 Emergency department patient visit FIDE MARTEL MD [facility] Start: 09-09-2024 End: 09-15-2024 Telephone encounter Bennie Nobles MD Work Phone: OB/Gynecology Start: 09-07-2024 End: 09-08-2024 Refill April Corral MD Work Phone: [facility] Comment on above: Refill Request Start: 09-03-2024 End: 09-03-2024 ambulatory BENNIE NOBLES Facility:[facility] Start: 08-27-2024 End: 08-27-2024 Patient encounter procedure Lissa Meade MD Work Phone: OB/Gynecology Comment on above: Menorrhagia with reg ular cycle (Primary Dx); Intramural and submucous leiomyoma of uterus; Adenomyosis of the uterus Start: 08-27-2024 End: 08-27-2024 ambulatory APRIL CORRAL Facility:[facility] Start: 08-19-2024 End: 08-19-2024 ambulatory 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[facility] [employer] Work Phone: OB/Gynecology Start: 08-19-2024 End: 08-19-2024 Patient encounter procedure Us Tech 1 [facility] OB/Gynecology Start: 08-04-2024 End: 08-04-2024 ambulatory APRIL CORRAL Facility:[facility] Start: 08-04-2024 End: 08-04-2024 Patient encounter procedure Geno VÁZQUEZ Work Phone: [facility] Comment on above: Sore throat (Primary Dx); Bacterial sinusitis Start: 07-08-2024 End: 07-08-2024 Refill April Corral MD Work Phone: Family [facility] Comment on above: Refill Request Start: 06-12-2024 End: 06-14-2024 Refill Sarmad Wren APRN.KITCHEN FOOD ASSEMBLER Work Phone: [facility] Comment on above: Refill Request Start: 06-04-2024 End: 06-04-2024 Initial preventive medicine new patient 40-64yrs Lissa Meade MD Work Phone: OB/Gynecology Comment on above: Encounter for gyneco logical examination (general) (routine) without abnormal findings (Primary Dx); Screening for cervical cancer; Encounter for screening for human papillomavirus (HPV); Encounter for screening mammogram for breast cancer; Pelvic pain in female; Menorrhagia with regular cycle Start: 06-04-2024 End: 06-04-2024 Patient encounter status Lissa Meade MD Work Phone: [facility] Start: 06-04-2024 End: 06-04-2024 ambulatory LISSA MEADE Facility:[facility] Start: 03-31-2024 End: 03-31-2024 Refill Michelle Powell APRN.KITCHEN FOOD ASSEMBLER Work Phone: Psychiatry Comment on above: Refill Request Start: 03-23-2024 End: 03-23-2024 ambulatory Kenn Cross [facility] Start: 03-23-2024 End: 03-23-2024 ambulatory Kenn Cross Facility:[facility] Start: 02-18-2024 End: 02-23-2024 ambulatory April Corral MD Work Phone: Internal Medicine [place] [id number] Start: 02-15-2024 End: 02-15-2024 ambulatory APRIL CORRAL Facility:[facility] Start: 02-15-2024 End: 02-15-2024 Office outpatient visit 25 minutes Carrillo Hudson APRN.KITCHEN FOOD ASSEMBLER Work Phone: [facility] Comment on above: Low back pain withou t sciatica, unspecified back pain laterality, unspecified chronicity (Primary Dx) Start: 02-11-2024 End: 02-12-2024 Refill Sarmad Wrne APRN.KITCHEN FOOD ASSEMBLER Work Phone: [facility] Comment on above: Refill Request Start: 02-05-2024 End: 02-05-2024 Patient encounter procedure Michelle Powell APRN.KITCHEN FOOD ASSEMBLER Work Phone: Psychiatry Comment on above: No-show for appointm ent (Primary Dx) Start: 02-05-2024 End: 02-05-2024 Telemedicine consultation with patient Michelle Sherry CROWDER.KITCHEN FOOD ASSEMBLER Work Phone: Psychiatry Start: 01-31-2024 End: 02-02-2024 Refill April Corral MD Work Phone: [facility] Comment on above: Refill Request Start: 01-22-2024 End: 01-23-2024 Refill Michelle Grimm APRN.KITCHEN FOOD ASSEMBLER Work Phone: [facility] Comment on above: Refill Request Start: 01-09-2024 End: 01-09-2024 Emergency department patient visit [facility] Facility:[facility] Start: 12-25-2023 End: 12-25-2023 [facility] Michelle Powell APRN.KITCHEN FOOD ASSEMBLER Work Phone: Psychiatry Comment on above: Bipolar 2 disorder ( HCC) (Primary Dx); FREDY (generalized anxiety disorder); Major depressive disorder, remission status unspecified, unspecified whether recurrent; Bipolar affective disorder, remission status unspecified (HCC) Start: 12-13-2023 End: 12-13-2023 Emergency department patient visit Maverick Boothreinaldo Facility:[facility] Start: 12-09-2023 End: 12-09-2023 Subsequent hospital visit by physician Mri Radio [facility] (I-Stat/1.5t) Work Phone: Radiology Comment on above: No Show Start: 12-04-2023 Telephone encounter Sarmad casas APRN.BLANCHE Work Phone: [facility] Comment on above: Results Start: 12-02-2023 End: 12-02-2023 ambulatory SARMAD WREN Facility:[facility] Start: 12-02-2023 End: 12-02-2023 Subsequent hospital visit by physician [facility] Work Phone: Radiology Comment on above: Cystic lesion of abd ominal viscera [K66.8] Start: 11-28-2023 End: 11-28-2023 Patient encounter procedure Sarmad Wren APRN.CNP Work Phone: [facility] [place] Comment on above: Wellness examination (Primary Dx); Hyperlipidemia, mixed; Hypertension, essential; Crohn's disease with complication, unspecified gastrointestinal tract location (HCC); Bipolar 2 disorder (HCC); FREDY (generalized anxiety disorder); Screening for cervical cancer; Encounter for immunization; Cystic lesion of abdominal viscera Start: 11-28-2023 End: 11-28-2023 Patient encounter status Sarmad Wren APRN.KITCHEN FOOD ASSEMBLER Work Phone: [facility] Work Phone: Start: 11-28-2023 End: 11-28-2023 ambulatory SARMAD WREN Facility:[facility] Start: 11-28-2023 Encounter for genera l adult medical examination without abnormal findings SARMAD WR[facility] Start: 11-27-2023 End: 11-27-2023 Emergency department patient visit Lissa Mcbride Facility:[facility] Start: 11-24-2023 Refill Michelle Grimm ASSESSMENT DIRECTOR.KITCHEN FOOD ASSEMBLER Work Phone: [facility] Comment on above: Refill Request Start: 11-14-2023 End: 11-14-2023 ambulatory YU CASTILLO Facility:[facility] Start: 11-14-2023 End: 11-14-2023 Patient encounter procedure Darnell Currie DO Work Phone: [facility] [place] Comment on above: Internal derangement of left knee (Primary Dx); Acute pain of left knee Start: 11-05-2023 End: 11-05-2023 Refill Michelle Podlogar ASSESSMENT DIRECTOR.KITCHEN FOOD ASSEMBLER Work Phone: [facility] [place] Comment on above: Refill Request Acute pain of left k nee [M25.562] Start: 11-05-2023 End: 11-05-2023 Office outpatient visit 15 minutes Carrillo Hudson ASSESSMENT DIRECTOR.KITCHEN FOOD ASSEMBLER Work Phone: [facility] Comment on above: Acute pain of left k nee (Primary Dx) Start: 10-20-2023 ambulatory No Pcp ASSESSMENT DIRECTOR [facility] Start: 10-20-2023 Patient encounter procedure No Pcp ASSESSMENT DIRECTOR [facility] Start: 09-29-2023 Refill Michelle Podlogar ASSESSMENT DIRECTOR.KITCHEN FOOD ASSEMBLER Work Phone: [facility] [place] Comment on above: Refill Request Start: 09-22-2023 ambulatory Michelle Podlogar ASSESSMENT DIRECTOR.KITCHEN FOOD ASSEMBLER Work Phone: [facility] [place] Comment on above: Good morning Refill Request Start: 09-08-2023 End: 09-08-2023 Subsequent hospital visit by physician Gabriele [facility] Work Phone: Radiology Comment on above: Acute pain of left k nee [M25.562] Start: 09-08-2023 End: 09-08-2023 Patient encounter procedure Yu Castillo MD Work Phone: [facility] Comment on above: Acute pain of left k nee (Primary Dx) Start: 08-22-2023 Telephone encounter Vick Corral MD Work Phone: [facility] [place] Comment on above: Appointment Start: 07-27-2023 End: 07-27-2023 Emergency department patient visit MICROBIOLOGY INSTRUCTOR-Hardik Grimm MICROBIOLOGY INSTRUCTOR Work Phone: [facility] Work Phone: Start: 07-21-2023 Refill April Corral MD Work Phone: [facility] Comment on above: Refill Request Start: 07-03-2023 ambulatory Michelle Podlogar ASSESSMENT DIRECTOR.KITCHEN FOOD ASSEMBLER Work Phone: [facility] Comment on above: Good morning Start: 06-25-2023 Telephone encounter Michelle Podl ogar ASSESSMENT DIRECTOR.KITCHEN FOOD ASSEMBLER Work Phone: [facility] Comment on above: Results Start: 06-23-2023 Refill Michelle Podlogar ASSESSMENT DIRECTOR.KITCHEN FOOD ASSEMBLER Work Phone: [facility] Comment on above: Refill Request Start: 06-15-2023 Refill April Corral MD Work Phone: [facility] Comment on above: Refill Request Start: 06-03-2023 End: 06-03-2023 Subsequent hospital visit by physician Xr [facility] Work Phone: Radiology Comment on above: Pain [R52] Start: 04-27-2023 End: 04-27-2023 Emergency department patient visit MICROBIOLOGY INSTRUCTOR-Hardik Grimm MICROBIOLOGY INSTRUCTOR Work Phone: [facility]-Emergency Department Work Phone: Start: 04-25-2023 ambulatory Michelle Podlogar ASSESSMENT DIRECTOR.KITCHEN FOOD ASSEMBLER Work Phone: [facility] [place] Comment on above: Good morning Start: 04-23-2023 ambulatory Michelle Podlogar ASSESSMENT DIRECTOR.KITCHEN FOOD ASSEMBLER Work Phone: [facility] [place] Comment on above: Good morning Start: 04-22-2023 Telephone encounter Michelle Podl ogar ASSESSMENT DIRECTOR.KITCHEN FOOD ASSEMBLER Work Phone: [facility] Comment on above: Results Start: 04-18-2023 Telephone encounter Michelle Podl ogar ASSESSMENT DIRECTOR.KITCHEN FOOD ASSEMBLER Work Phone: [facility] Start: 04-16-2023 ambulatory Michelle Podlogar ASSESSMENT DIRECTOR.KITCHEN FOOD ASSEMBLER Work Phone: [facility] Comment on above: Heartburn Start: 03-31-2023 Refill Michelle Podlogar ASSESSMENT DIRECTOR.KITCHEN FOOD ASSEMBLER Work Phone: [facility] [place] Comment on above: Refill Request (Zofr an denied-needs appt) Start: 03-31-2023 End: 03-31-2023 Patient encounter procedure MICROBIOLOGY INSTRUCTOREber Grimm MICROBIOLOGY INSTRUCTOR Work Phone: [facility] Gastroenterology Work Phone: Start: 03-16-2023 End: 03-16-2023 Patient encounter procedure Stefani Gaspar ASSESSMENT DIRECTOR.KITCHEN FOOD ASSEMBLER Work Phone: [facility] Comment on above: Acute otitis media, right (Primary Dx); URI, acute Start: 02-14-2023 Refill April Corral MD Work Phone: [facility] [place] Comment on above: Refill Request Start: 02-13-2023 End: 02-13-2023 Emergency department patient visit MICROBIOLOGY INSTRUCTOR-Hardik Grimm MICROBIOLOGY INSTRUCTOR [facility] Start: 02-12-2023 Non-patient / Non-visit MICROBIOLOGY INSTRUCTOR-Hardik Grimm MICROBIOLOGY INSTRUCTOR Work Phone: [facility] Start: 02-12-2023 End: 02-12-2023 Admission to same day surgery center MICROBIOLOGY INSTRUCTOR-Hardik Grimm MICROBIOLOGY INSTRUCTOR Work Phone: [facility]-Endoscopy Work Phone: Start: 01-17-2023 End: 01-17-2023 Emergency department patient visit MICROBIOLOGY INSTRUCTOREber Grimm MICROBIOLOGY INSTRUCTOR Work Phone: [facility]Emergency Department Work Phone: Start: 01-10-2023 End: 01-10-2023 Emergency department patient visit DR FIDEL HUMPHREYS MD [facility] Start: 12-21-2022 Refill Michelle Grimm ASSESSMENT DIRECTOR.KITCHEN FOOD ASSEMBLER Work Phone: [facility] [place] Comment on above: Refill Request Start: 12-06-2022 End: 12-06-2022 Emergency department patient visit MICROBIOLOGY INSTRUCTOR-C Michelle Grimm MICROBIOLOGY INSTRUCTOR Work Phone: [facility] Work Phone: Start: 12-06-2022 End: 12-06-2022 MICROBIOLOGY INSTRUCTOR-C Michelle Barreralogar MICROBIOLOGY INSTRUCTOR Work Phone: [facility]Emergency Department Work Phone: Start: 11-23-2022 End: 11-23-2022 Emergency department patient visit MICROBIOLOGY INSTRUCTOR-C Michelle Grimm MICROBIOLOGY INSTRUCTOR Work Phone: [facility] Work Phone: Start: 11-23-2022 End: 11-23-2022 MICROBIOLOGY INSTRUCTOR-C Michelle Barreralogar MICROBIOLOGY INSTRUCTOR Work Phone: [facility]Emergency Department Work Phone: Start: 11-07-2022 Refill April Corral MD Work Phone: [facility] Comment on above: Refill Request Start: 11-04-2022 MICROBIOLOGY INSTRUCTOR-C Michelle Barrera logar MICROBIOLOGY INSTRUCTOR Work Phone: [facility] Start: 10-28-2022 End: 10-28-2022 Emergency department patient visit MICROBIOLOGY INSTRUCTOR-Hardik Grimm MICROBIOLOGY INSTRUCTOR Work Phone: [facility] Work Phone: Start: 10-28-2022 End: 10-28-2022 MICROBIOLOGY INSTRUCTOR-C Michelle Barreralogkarolina MICROBIOLOGY INSTRUCTOR Work Phone: [facility]-Emergency Department Start: 10-26-2022 Non-patient / Non-visit MICROBIOLOGY INSTRUCTOR-C Ashok Barreralogar MICROBIOLOGY INSTRUCTOR Work Phone: [facility] Start: 10-26-2022 MICROBIOLOGY INSTRUCTOR-C Michelle Pod logar MICROBIOLOGY INSTRUCTOR Work Phone: [facility] Start: 10-25-2022 Non-patient / Non-visit MICROBIOLOGY INSTRUCTOR-C Ashok marie Podlogar MICROBIOLOGY INSTRUCTOR Work Phone: [facility] Start: 10-25-2022 MICROBIOLOGY INSTRUCTOR-Hardik Martinez Pod logar MICROBIOLOGY INSTRUCTOR Work Phone: [facility] Start: 10-25-2022 End: 10-26-2022 Evaluation and management of inpatient MICROBIOLOGY INSTRUCTOR-Hardik Barreralogar MICROBIOLOGY INSTRUCTOR [facility] Start: 10-25-2022 End: 10-26-2022 observation encounter MICROBIOLOGY INSTRUCTOR-Hardik Grimm MICROBIOLOGY INSTRUCTOR Work Phone: [facility] Work Phone: Start: 10-25-2022 End: 10-26-2022 MICROBIOLOGY INSTRUCTOR-C Michelle Barreralogar MICROBIOLOGY INSTRUCTOR [facility] Start: 10-25-2022 Non-patient / Non-visit MICROBIOLOGY INSTRUCTOR-Hardik Barreralogkarolina MICROBIOLOGY INSTRUCTOR Work Phone: [facility] Start: 10-25-2022 MICROBIOLOGY INSTRUCTOR-Hardik Martinez Pod logar MICROBIOLOGY INSTRUCTOR Work Phone: [facility] Start: 10-23-2022 End: 10-23-2022 Patient encounter procedure MICROBIOLOGY INSTRUCTOR-Hardik Barreralogar MICROBIOLOGY INSTRUCTOR Work Phone: [facility] Start: 10-23-2022 End: 10-23-2022 MICROBIOLOGY INSTRUCTOR-C Michelle Podlogar MICROBIOLOGY INSTRUCTOR Work Phone: [facility] Start: 10-18-2022 End: 10-18-2022 Emergency department patient visit MICROBIOLOGY INSTRUCTOR-Hardik Barreralogar MICROBIOLOGY INSTRUCTOR Work Phone: [facility] Start: 10-18-2022 End: 10-18-2022 MICROBIOLOGY INSTRUCTOR-Hardik Martinez Podlogar MICROBIOLOGY INSTRUCTOR Work Phone: [facility] Start: 10-06-2022 Refill Michelle Grimm ASSESSMENT DIRECTOR.KITCHEN FOOD ASSEMBLER Work Phone: [facility] Comment on above: Refill Request Start: 09-27-2022 End: 09-27-2022 ambulatory MICROBIOLOGY INSTRUCTOR-C Michelle Grimm MICROBIOLOGY INSTRUCTOR Work Phone: [facility] Work Phone: Start: 09-27-2022 End: 09-27-2022 Patient encounter procedure MICROBIOLOGY INSTRUCTOR-C Michelle Grimm MICROBIOLOGY INSTRUCTOR Work Phone: [facility] Start: 09-27-2022 End: 09-27-2022 MICROBIOLOGY INSTRUCTOR-C Michelle Barreralogar MICROBIOLOGY INSTRUCTOR Work Phone: [facility] Start: 09-23-2022 End: 09-23-2022 Patient encounter procedure Yu Castillo MD Work Phone: [facility] Comment on above: Neck pain on left si de (Primary Dx); Headache, unspecified headache type Start: 09-20-2022 End: 09-20-2022 Patient encounter procedure MICROBIOLOGY INSTRUCTOR-C Michelle Grimm MICROBIOLOGY INSTRUCTOR Work Phone: [facility] Start: 09-20-2022 End: 09-20-2022 MICROBIOLOGY INSTRUCTOR-C Michelle Arcosar MICROBIOLOGY INSTRUCTOR Work Phone: [facility] Start: 09-14-2022 Refill Michelle Grimm ASSESSMENT DIRECTOR.KITCHEN FOOD ASSEMBLER Work Phone: [facility] Comment on above: Refill Request Start: 09-10-2022 End: 09-10-2022 Emergency department patient visit MICROBIOLOGY INSTRUCTOR-Hardik Grimm MICROBIOLOGY INSTRUCTOR Work Phone: [facility] Start: 09-10-2022 End: 09-10-2022 MICROBIOLOGY INSTRUCTOR-C Michelle Barreralogar MICROBIOLOGY INSTRUCTOR Work Phone: [facility] Start: 09-02-2022 End: 09-02-2022 Emergency department patient visit MICROBIOLOGY INSTRUCTOR-C Michelle Grimm MICROBIOLOGY INSTRUCTOR Work Phone: [facility] Start: 09-02-2022 End: 09-02-2022 MICROBIOLOGY INSTRUCTOR-C Michelle Podlogar MICROBIOLOGY INSTRUCTOR Work Phone: [facility] Start: 08-12-2022 End: 08-12-2022 Emergency department patient visit MICROBIOLOGY INSTRUCTOR-C Michelle Barreralogar MICROBIOLOGY INSTRUCTOR Work Phone: [facility] Start: 08-12-2022 End: 08-12-2022 MICROBIOLOGY INSTRUCTOR-C Michelle Podlogar MICROBIOLOGY INSTRUCTOR Work Phone: [facility] Start: 08-11-2022 End: 08-11-2022 Emergency department patient visit MICROBIOLOGY INSTRUCTOR-C Michelle Barreralogar MICROBIOLOGY INSTRUCTOR [facility] Start: 08-11-2022 End: 08-11-2022 MICROBIOLOGY INSTRUCTOR-C Michelle Podlogar MICROBIOLOGY INSTRUCTOR [facility] Start: 07-30-2022 End: 07-30-2022 Emergency department patient visit MICROBIOLOGY INSTRUCTOR-C Michelle Arcosar MICROBIOLOGY INSTRUCTOR [facility] Start: 07-30-2022 End: 07-30-2022 MICROBIOLOGY INSTRUCTOR-C Michelle Podlogar MICROBIOLOGY INSTRUCTOR Work Phone: [facility] Start: 07-25-2022 End: 07-25-2022 ambulatory MICROBIOLOGY INSTRUCTOR-C Michelle Podlogar MICROBIOLOGY INSTRUCTOR Work Phone: [facility] Work Phone: Start: 07-25-2022 End: 07-25-2022 Patient encounter procedure MICROBIOLOGY INSTRUCTOR-C Michelle Podlogar MICROBIOLOGY INSTRUCTOR [facility] Start: 07-25-2022 End: 07-25-2022 MICROBIOLOGY INSTRUCTOR-C Michelle Podlogar MICROBIOLOGY INSTRUCTOR [facility] Start: 07-13-2022 End: 07-13-2022 Emergency department patient visit MICROBIOLOGY INSTRUCTOR-C Michelle Barreralogar MICROBIOLOGY INSTRUCTOR [facility] Start: 07-13-2022 End: 07-13-2022 MICROBIOLOGY INSTRUCTOR-C Michelle Podlogar MICROBIOLOGY INSTRUCTOR Work Phone: [facility] Start: 07-09-2022 End: 07-09-2022 Patient encounter procedure MICROBIOLOGY INSTRUCTOREber Grimm MICROBIOLOGY INSTRUCTOR Work Phone: [facility] Start: 07-09-2022 End: 07-09-2022 MICROBIOLOGY INSTRUCTOR-Hardik Grimm MICROBIOLOGY INSTRUCTOR Work Phone: [facility] Start: 06-19-2022 Telephone encounter Michelle steele ASSESSMENT DIRECTOR.KITCHEN FOOD ASSEMBLER Work Phone: [facility] Comment on above: Results Start: 06-17-2022 End: 06-17-2022 Subsequent hospital visit by physician Gabriele [facility] Work Phone: Radiology Comment on above: Right hand pain [M79 .641] Start: 06-17-2022 End: 06-17-2022 Patient encounter procedure Michelle Grimm ASSESSMENT DIRECTOR.KITCHEN FOOD ASSEMBLER Work Phone: [facility] Comment on above: Essential (primary) hypertension (Primary Dx); Right hand pain Start: 06-11-2022 End: 06-11-2022 Patient encounter procedure Geno VÁZQUEZ Work Phone: [facility] Comment on above: Acute midline thorac ic back pain (Primary Dx); Strain of thoracic region, initial encounter Start: 05-22-2022 End: 05-23-2022 Emergency department patient visit MICROBIOLOGY INSTRUCTOREber Grimm MICROBIOLOGY INSTRUCTOR Work Phone: [facility] Start: 05-16-2022 End: 05-16-2022 Emergency department patient visit MICROBIOLOGY INSTRUCTOR-Hardik Grimm MICROBIOLOGY INSTRUCTOR Work Phone: [facility] Start: 05-14-2022 End: 05-14-2022 Patient encounter procedure Michelle Grimm ASSESSMENT DIRECTOR.KITCHEN FOOD ASSEMBLER Work Phone: [facility] Comment on above: Hypertension, essent ial (Primary Dx) Start: 05-10-2022 End: 12-30-2022 [facility] Comment on above: Hip pain, acute, rig ht [M25.551] Start: 05-10-2022 End: 05-10-2022 Office outpatient visit 15 minutes Carrillo Hudson APRN.KITCHEN FOOD ASSEMBLER Work Phone: [facility] Comment on above: Hip pain, acute, rig ht (Primary Dx) Start: 04-19-2022 End: 04-19-2022 Patient encounter procedure MICROBIOLOGY INSTRUCTOR-Hardik Grimm MICROBIOLOGY INSTRUCTOR Work Phone: [facility] Start: 04-19-2022 End: 04-19-2022 Patient encounter procedure Alanna Moa APRN.KITCHEN FOOD ASSEMBLER Work Phone: [facility] Comment on above: Sore throat (Primary Dx); URI, acute Start: 04-13-2022 End: 04-13-2022 Emergency department patient visit MICROBIOLOGY INSTRUCTOR-Hardik Grimm MICROBIOLOGY INSTRUCTOR Work Phone: [facility] Start: 04-10-2022 End: 04-10-2022 Emergency department patient visit MICROBIOLOGY INSTRUCTOR-Hardik Grimm MICROBIOLOGY INSTRUCTOR Work Phone: [facility] Start: 03-26-2022 Refill Michelle Grimm APRN.KITCHEN FOOD ASSEMBLER Work Phone: [facility] Comment on above: Refill Request Start: 03-23-2022 End: 03-23-2022 Patient encounter procedure Nicole Aguilar APRN.KITCHEN FOOD ASSEMBLER Work Phone: [facility] Comment on above: Viral URI with cough (Primary Dx); Nausea and vomiting, unspecified vomiting type Start: 03-12-2022 End: 03-12-2022 Patient encounter procedure MICROBIOLOGY INSTRUCTOR-Hardik Grimm MICROBIOLOGY INSTRUCTOR Work Phone: [facility] Start: 02-19-2022 End: 02-19-2022 Emergency department patient visit MICROBIOLOGY INSTRUCTOR-Hardik Grimm MICROBIOLOGY INSTRUCTOR Work Phone: [facility] Start: 02-19-2022 End: 02-19-2022 Patient encounter procedure Stefani Gaspar ASSESSMENT DIRECTOR.KITCHEN FOOD ASSEMBLER Work Phone: [facility] Comment on above: Left lower quadrant abdominal pain (Primary Dx) Start: 02-11-2022 End: 02-11-2022 ambulatory MICROBIOLOGY INSTRUCTOR-Hardik Grimm MICROBIOLOGY INSTRUCTOR Work Phone: [facility] Work Phone: Start: 02-11-2022 End: 02-11-2022 Patient encounter procedure Michelle Grimm ASSESSMENT DIRECTOR.KITCHEN FOOD ASSEMBLER Work Phone: [facility] Comment on above: Hypertension, essent ial (Primary Dx); Hyperlipidemia, mixed; Obesity, Class I, BMI 30-34.9 Start: 02-08-2022 Telephone encounter Michelle steele ASSESSMENT DIRECTOR.KITCHEN FOOD ASSEMBLER Work Phone: [facility] Comment on above: Medication Question Start: 02-07-2022 End: 02-07-2022 Patient encounter procedure MICROBIOLOGY INSTRUCTOR-Hardik Grimm MICROBIOLOGY INSTRUCTOR Work Phone: [facility] Start: 02-07-2022 End: 02-07-2022 ambulatory Michelle Barreralogkarolina ASSESSMENT DIRECTOR.KITCHEN FOOD ASSEMBLER Work Phone: [facility] Comment on above: Asthma Start: 01-28-2022 End: 01-28-2022 Patient encounter procedure Michelle Grimm ASSESSMENT DIRECTOR.KITCHEN FOOD ASSEMBLER Work Phone: [facility] Comment on above: Hypertension, essent ial (Primary Dx); Headache, unspecified headache type Start: 01-24-2022 End: 01-24-2022 Emergency department patient visit MICROBIOLOGY INSTRUCTOR-C Michelle Grimm MICROBIOLOGY INSTRUCTOR Work Phone: [facility] Start: 01-24-2022 End: 01-24-2022 Patient encounter procedure Meng Mcallister ASSESSMENT DIRECTOR.KITCHEN FOOD ASSEMBLER Work Phone: [facility] Comment on above: Dizziness (Primary D x); Elevated blood pressure reading without diagnosis of hypertension Start: 01-01-2022 End: 01-01-2022 Emergency department patient visit MICROBIOLOGY INSTRUCTOR-Hardik Grimm MICROBIOLOGY INSTRUCTOR Work Phone: [facility] Start: 12-24-2021 End: 12-24-2021 Subsequent hospital visit by physician Nubia Jolly [facility] Comment on above: Canceled (Pt cx: Vanesa ble to reach patient to confirm appointment) Start: 12-20-2021 End: 12-20-2021 Subsequent hospital visit by physician Sarah Blair PA-C Work Phone: [facility] Comment on above: No Show Start: 12-19-2021 End: 12-19-2021 Subsequent hospital visit by physician Gabriele [facility] Work Phone: Radiology Comment on above: Acute cough [R05.1] Start: 12-19-2021 End: 12-19-2021 Patient encounter procedure Alanna Mao APRN.KITCHEN FOOD ASSEMBLER Work Phone: [facility] Comment on above: Acute cough (Primary Dx) Start: 12-17-2021 End: 12-17-2021 Subsequent hospital visit by physician Barb Akers [facility] Work Phone: [facility] Start: 11-21-2021 End: 11-21-2021 Emergency department patient visit MICROBIOLOGY INSTRUCTOR-Hardik Grimm MICROBIOLOGY INSTRUCTOR Work Phone: [facility] Start: 11-15-2021 Non-patient / Non-visit MICROBIOLOGY INSTRUCTOR-Hardik Grimm MICROBIOLOGY INSTRUCTOR Work Phone: [facility] Start: 11-15-2021 End: 11-15-2021 Admission to same day surgery center MICROBIOLOGY INSTRUCTOR-Hardik Grimm MICROBIOLOGY INSTRUCTOR Work Phone: [facility] Start: 09-30-2021 End: 09-30-2021 Emergency department patient visit MICROBIOLOGY INSTRUCTOR-Hardik Grimm MICROBIOLOGY INSTRUCTOR Work Phone: [facility] Start: 09-26-2021 End: 09-26-2021 Emergency department patient visit MICROBIOLOGY INSTRUCTOR-Hardik Martinez Podlogar MICROBIOLOGY INSTRUCTOR Work Phone: [facility] Start: 08-15-2021 End: 08-15-2021 Patient encounter procedure SIXTO Grimm MICROBIOLOGY INSTRUCTOR Work Phone: [facility] Start: 08-07-2021 End: 08-07-2021 Patient encounter procedure Jani Keating APRN.KITCHEN FOOD ASSEMBLER, DNP Work Phone: [facility] Comment on above: Migraine with aura, not intractable, without status migrainosus (Primary Dx); Primary hypertension; Obesity, Class I, BMI 30-34.9; Bipolar affective disorder, remission status unspecified (HCC) Start: 08-06-2021 End: 08-06-2021 Patient encounter procedure Yu Castillo MD Work Phone: [facility] Comment on above: Elevated blood press ure reading without diagnosis of hypertension (Primary Dx); Headache, unspecified headache type Start: 06-20-2021 End: 06-20-2021 Emergency department patient visit MICROBIOLOGY INSTRUCTOREber Grimm MICROBIOLOGY INSTRUCTOR Work Phone: [facility] Start: 05-22-2021 End: 05-22-2021 Subsequent hospital visit by physician Gabriele [facility] Work Phone: Radiology Comment on above: Acute bilateral thor acic back pain [M54.6] Start: 11-20-2016 End: 11-20-2016 Emergency department patient visit [facility] Start: 11-08-2016 End: 11-08-2016 Emergency department patient visit [facility] Procedures Date Procedure Procedure Detail Performing Clinician Start: 08-27-2024 UA DIP,URINE HCG (POC) Lissa Jackson Work Phone: Start: 08-19-2024 Us pelvic nonobstetric real-time image complete Lissa Meade MD Work Phone: Start: 08-04-2024 STREP A MOLECULAR (POC) Nicole Aguilar APRN.KITCHEN FOOD ASSEMBLER Work Phone: Start: 12-02-2023 Us abdominal real time w/image limited Sarmad Wren ASSESSMENT DIRECTOR.KITCHEN FOOD ASSEMBLER Work Phone: Start: 11-05-2023 Radiologic exam knee complete 4/more views Carrillo Hudson ASSESSMENT DIRECTOR.KITCHEN FOOD ASSEMBLER Work Phone: Start: 09-08-2023 Radiologic exam knee complete 4/more views Yu Castillo MD Work Phone: Start: 07-27-2023 Computed tomography of abdomen and pelvis with intravenous contrast MICROBIOLOGY INSTRUCTOR-C Michelle Podlogar MICROBIOLOGY INSTRUCTOR Work Phone: Start: 06-03-2023 Radex spine lumbosacral 2/3 views Alanna Mao ASSESSMENT DIRECTOR.KITCHEN FOOD ASSEMBLER Work Phone: Start: 02-13-2023 Computed tomography of abdomen and pelvis with contrast MICROBIOLOGY INSTRUCTOR-C Michelle Podlogar MICROBIOLOGY INSTRUCTOR Work Phone: Start: 02-12-2023 Endoscopic retrograde cholangiopancreatography MICROBIOLOGY INSTRUCTOR-C Michelle Podlogar MICROBIOLOGY INSTRUCTOR Work Phone: Start: 02-12-2023 Fluoroscopic guidance MICROBIOLOGY INSTRUCTOR-C Michelle Podlogar MICROBIOLOGY INSTRUCTOR Work Phone: Start: 11-23-2022 Computed tomography of abdomen and pelvis with intravenous contrast MICROBIOLOGY INSTRUCTOR-C Michelle Podlogar MICROBIOLOGY INSTRUCTOR Work Phone: Start: 10-28-2022 Computed tomography of abdomen and pelvis with intravenous contrast MICROBIOLOGY INSTRUCTOR-C Michelle Podlogar MICROBIOLOGY INSTRUCTOR Work Phone: Start: 10-25-2022 Fluoroscopic guidance MICROBIOLOGY INSTRUCTOR-C Michelle Podlogar MICROBIOLOGY INSTRUCTOR Work Phone: Start: 10-25-2022 End: 10-25-2022 Endoscopic retrograde cholangiopancreatography MICROBIOLOGY INSTRUCTOR-C Michelle Podlogar MICROBIOLOGY INSTRUCTOR Work Phone: Start: 10-25-2022 Total cholecystectomy and exploration of common bile duct MICROBIOLOGY INSTRUCTOR-C Michelle Podlogar MICROBIOLOGY INSTRUCTOR Work Phone: Start: 10-25-2022 Cholangiogram MICROBIOLOGY INSTRUCTOR-C Michelle Podlogar MICROBIOLOGY INSTRUCTOR Work Phone: Start: 10-25-2022 Fluoroscopic guidance MICROBIOLOGY INSTRUCTOR-C Michelle Podlogar MICROBIOLOGY INSTRUCTOR Work Phone: Start: 09-10-2022 Plain chest X-ray MICROBIOLOGY INSTRUCTOR-C Michelle Podlogar MICROBIOLOGY INSTRUCTOR Work Phone: Start: 08-12-2022 Computed tomography of abdomen and pelvis with intravenous contrast MICROBIOLOGY INSTRUCTOR-C Michelle Podlogar MICROBIOLOGY INSTRUCTOR Work Phone: Start: 08-11-2022 US scan of gallbladder MICROBIOLOGY INSTRUCTOR-C Michelle Podlogar MICROBIOLOGY INSTRUCTOR Work Phone: Start: 06-17-2022 Radex hand minimum 3 views Michelle Barreraloga kei CROWDER.KITCHEN FOOD ASSEMBLER Work Phone: Start: 05-22-2022 Computed tomography of abdomen and pelvis with intravenous contrast MICROBIOLOGY INSTRUCTOR-C Michelle Podlogar MICROBIOLOGY INSTRUCTOR Work Phone: Start: 05-10-2022 Radex hip unilateral with pelvis 2-3 views Carrillo Hudson APRN.KITCHEN FOOD ASSEMBLER Work Phone: Start: 04-19-2022 STREP A MOLECULAR (POC) Alanna Mao APRN.KITCHEN FOOD ASSEMBLER Work Phone: Start: 04-13-2022 Computed tomography of abdomen and pelvis with intravenous contrast MICROBIOLOGY INSTRUCTOR-C Michelle Podlogar MICROBIOLOGY INSTRUCTOR Work Phone: Start: 01-24-2022 CT of head without contrast MICROBIOLOGY INSTRUCTOR-C Michelle Podlogar MICROBIOLOGY INSTRUCTOR Work Phone: Start: 12-19-2021 Radiologic exam chest 2 views Alanna Mao APRN.KITCHEN FOOD ASSEMBLER Work Phone: Start: 12-17-2021 Adult depression screening assessment Alanna Mao APRN.KITCHEN FOOD ASSEMBLER Work Phone: Start: 11-21-2021 Computed tomography of abdomen and pelvis with intravenous contrast MICROBIOLOGY INSTRUCTOR-C Michelle Podlogar MICROBIOLOGY INSTRUCTOR Work Phone: Start: 09-30-2021 CT of abdomen and pelvis without contrast MICROBIOLOGY INSTRUCTOR-C Michelle Podlogar MICROBIOLOGY INSTRUCTOR Work Phone: Start: 08-01-2021 Adult depression screening assessment Yu Castillo MD Work Phone: Start: 06-20-2021 Computed tomography of abdomen and pelvis with intravenous contrast MICROBIOLOGY INSTRUCTOR-Hardik Martinez Podlogar MICROBIOLOGY INSTRUCTOR Work Phone: Start: 05-22-2021 Radex spine thoracic 2 views Stefani Chai gs ASSESSMENT DIRECTOR.KITCHEN FOOD ASSEMBLER Work Phone: Start: 08-23-2014 Ligation of fallopian tube DR FIDEL Duran MD Start: 08-22-2014 V[address]inal delivery of fetus DR FIDEL HUMPHREYS MD Clostridium difficile detection MICROBIOLOGY INSTRUCTOR-Hardik Martinez Podlogar MICROBIOLOGY INSTRUCTOR Work Phone: Enteric Bacteriology MICROBIOLOGY INSTRUCTOR-Hardik boles Podlogar MICROBIOLOGY INSTRUCTOR Work Phone: History of cholecystectomy S/P l aparoscopic cholecystectomy MICROBIOLOGY INSTRUCTOR-Hardik Martinez Podlogar MICROBIOLOGY INSTRUCTOR Work Phone: Lactoferrin measurement MICROBIOLOGY INSTRUCTOR-Hardik Martinez Podlogar MICROBIOLOGY INSTRUCTOR Work Phone: Structure of wisdom tooth (body structure) DR FIDEL HUMPHREYS MD Viral antigen assay MICROBIOLOGY INSTRUCTOR-C Kulwinder davis Podlogar MICROBIOLOGY INSTRUCTOR Work Phone: Plan of Treatment Date Care Activity Detail Author Start: 2044 HEPATITIS B (1 of 3 - Risk 3-dose series) HEPATITIS B (1 of 3 - Risk 3-dose series) [facility] Start: 2044 Hepatitis B Vaccine (1 of 3 - Risk 3-dose series) Hepatitis B Vaccine (1 of 3 - Risk 3-dose series) [facility] Start: 11-27-2033 Urine microalbumin profile DTaP,Tdap,Td Vaccine (2 - T d or Tdap) [facility] Start: 09-27-2025 BP Controlled (<130/80) BP Controlled (<130/80) [facility] Start: 09-19-2025 HPV TESTING HPV TESTING [facility] Start: 09-19-2025 PAP TESTING PAP TESTING [facility] Start: 09-19-2025 Screening for malignant neoplasm of cervix [facility] Start: 09-03-2025 BP Controlled (<130/80) BP Controlled (<130/80) [facility] Start: 06-06-2025 End: 06-06-2025 Patient encounter procedure Mammogram Comment on above: Encounter for screening mammogram for br east cancer [Z12.31] Annual Start: 06-04-2025 BP Controlled (<130/80) BP Controlled (<130/80) [facility] Start: 06-04-2025 Screening for malignant neoplasm of cervix Cervical Cancer Screening [facility] Start: 11-27-2024 Annual PCP Team Chronic Disease Visit Annual PCP Team Chronic Disease Visit [facility] Start: 11-27-2024 Covid-19 Vaccine (#1) Covid-19 Vaccine (#1) [facility] Comment on above: Postponed from 01/11/1989 (Declined at t his time) Start: 11-16-2024 End: 11-16-2024 Patient encounter procedure 11/16/2024 8:10 AM EDT Office Visit OB/Gynecology [address] [place] [address] Bennie Brown MD [address] [place] [address] post op 6 wk OB/Gynecology Comment on above: post op 6 wk Start: 11-04-2024 BP Controlled (<130/80) BP Controlled (<130/80) [facility] Start: 10-12-2024 End: 10-12-2024 Patient encounter procedure 10/12/2024 8:40 AM EDT Office Visit OB/Gynecology [address] [place] [address] Bennie Brown MD [address] [place] [address] Post op OB/Gynecology Comment on above: Post op Start: 09-27-2024 End: 09-27-2024 Patient encounter procedure 09/27/2024 8:40 AM EDT Office Visit OB/Gynecology [address] [place] [id number] Bennie Brown MD [address] [place] [address] pre op for 10/14 [facility] surgery OB/Gynecology Comment on above: pre op for 10/14 [facility] surgery Start: 09-03-2024 End: 09-03-2024 Patient encounter procedure 09/03/2024 8:20 AM EDT Office Visit OB/Gynecology [address] [place] [address] Bennie Brown MD [address] [place] [address] Consult for Surgery OB/Gynecology Comment on above: Consult for Surgery Start: 06-08-2024 End: 06-08-2024 Manual pelvic examination 06/08/2024 1:00 PM EST Procedure OB/Gynecology [address] [place] [address] 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, 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[employer] [address] [place] [address] Pelvic pain in female [R10.2] OB/Gynecology Comment on above: Pelvic pain in female [R10.2] Start: 06-04-2024 End: 06-04-2025 US Pelvis PELVIC US [facility] Anc Imaging Routine Pelvic pain in female Menorrhagia with regular cycle Expected: 06/04/2024, Expires: 06/04/2025 [facility] Comment on above: Expected: 06/04/2024, Expires: Start: 06-03-2024 BP Controlled (<130/80) BP Controlled (<130/80) [facility] Start: 05-31-2024 End: 05-31-2024 Patient encounter procedure [facility] Comment on above: Follow up Start: 05-30-2024 End: 08-29-2024 Lipid 1996 panel - Serum or Plasma LIPID PANEL BASIC Lab Routine Hyperlipidemia, mixed Expected: 05/30/2024 (Approximate), Expires: 08/29/2024 [facility] Work Phone: Comment on above: Expected: 05/30/2024 (Approximate), Expi res: 08/29/2024 Start: 04-07-2024 Annual PCP Team Chronic Disease Visit Annual PCP Team Chronic Disease Visit [facility] Start: 04-06-2024 End: 04-06-2024 Patient encounter procedure 04/06/2024 9:20 AM EST Office Visit OB/Gynecology [address] [place] [address] Lissa Meade MD [address] [place] [address] New Patient establish care OB/Gynecology Comment on above: New Patient establish care Start: 04-02-2024 End: 04-02-2024 Follow-up encounter 04/02/2024 8:00 AM EST [facility] [address] [facility] [address] [place] [address] Michelle Powell, ASSESSMENT DIRECTOR.KITCHEN FOOD ASSEMBLER [address] [place] [id number] JAVIER JAQUEZ follow up Psychiatry Comment on above: JAVIER JAQUEZ follow up Start: 02-19-2024 End: 02-19-2024 Patient encounter procedure 02/19/2024 1:00 PM EDT Office Visit OB/Gynecology [address] [place] [address] Sadia Alejandro APRN.KITCHEN FOOD ASSEMBLER [address] [place] [address] New Patient establish care OB/Gynecology Comment on above: New Patient establish care Start: 02-05-2024 End: 02-05-2024 ambulatory 02/05/2024 8:30 AM EDT [facility] Psych[facility] [address] [facility] [address] [place] [address] Michelle Powell, ASSESSMENT DIRECTOR.KITCHEN FOOD ASSEMBLER [address] [place] [address] F/U JAVIER JAQUEZ--FREDY, Bipolar 2 Psychiatry Comment on above: F/U JAVIER JAQUEZ--FREDY, Bipolar 2 Start: 2024 Screening for malignant neoplasm of breast Mammogram Screening [facility] Start: 01-11-2024 Influenza vaccination Influenza Vaccine (#1) [facility] Start: 01-09-2024 End: 01-09-2024 Patient encounter procedure 01/09/2024 10:30 AM EDT Office Visit OB/Gynecology [address] [place] [address] Zhane Carl APRN.KITCHEN FOOD ASSEMBLER [address] [place] [address] New Patient establish care OB/Gynecology Comment on above: New Patient establish care Start: 12-25-2023 End: 12-25-2023 Follow-up encounter 12/25/2023 8:00 AM EDT [facility] Psychiatry [address] [facility] [address] [place] [address] Michelle Powell APRN.KITCHEN FOOD ASSEMBLER [address] [facility]. [address] [place] [address] Follow Up Psychiatry Comment on above: Follow Up Start: 12-09-2023 End: 12-09-2023 Patient encounter procedure 12/09/2023 10:40 AM EDT Appointment Radiology [address] [place], [place] [address] Internal derangement of left knee [M23.92] Radiology Comment on above: Internal derangement of left knee [M23.9 2] Start: 12-02-2023 End: 12-02-2023 Patient encounter procedure 12/02/2023 11:30 AM EDT Appointment Radiology [address] [place] [address] Cystic lesion of abdominal viscera [K66.8] Radiology Comment on above: Cystic lesion of abdominal viscera [K66. 8] Start: 11-28-2023 End: 02-27-2024 Comprehensive metabolic 2000 panel - Serum or Plasma COMPREHENSIVE METABOLIC PANEL Lab Routine Hypertension, essential Expected: 11/28/2023, Expires: 02/27/2024 [facility] Comment on above: Expected: 11/28/2023, Expires: Start: 11-28-2023 End: 11-28-2023 Patient encounter procedure 11/28/2023 8:00 AM EDT Office Visit [facility] [address] [facility] [place] [address] Sarmad Wren APRN.KITCHEN FOOD ASSEMBLER [address] [facility] [place] [address] physical [facility] Comment on above: physical Start: 11-14-2023 End: 11-14-2023 Patient encounter procedure 11/14/2023 2:00 PM EDT Office Visit Family Medicine [facility] [address] [facility] [place] [address] Darnell Currie V, DO [address] [facility] [place] [address] Acute pain of left knee [M25.562] Family [facility] Comment on above: Acute pain of left knee [M25.562] Start: 10-16-2023 End: 10-16-2023 Patient encounter procedure Orthopaedics Comment on above: Acute pain of left knee [M25.562] Start: 07-27-2023 [facility] Start: 06-17-2023 ANNUAL PCP TEAM CHRONIC DISEASE VISIT ANNUAL PCP TEAM CHRONIC DISEASE VISIT [facility] Start: 05-14-2023 ANNUAL PCP TEAM CHRONIC DISEASE VISIT ANNUAL PCP TEAM CHRONIC DISEASE VISIT [facility] Start: 05-12-2023 Depression Assessment Depression Assessment [facility] Start: 04-27-2023 [facility] Start: 02-13-2023 [facility] Start: 02-12-2023 Ercp remove calculi/debris biliary/pancreas duct ERCP REMOVE DUCT CALCULI [facility] Start: 02-12-2023 Ercp remove foreign body/stent biliary/panc duct ERCP REMOVE FORGN BODY DUCT [facility] Start: 02-12-2023 Ercp w/sphincterotomy/papillotomy ENDO CHOLANGIOPANCREATOGRAPH [facility] Start: 02-12-2023 Patient discharge [facility] Start: 02-11-2023 ANNUAL PCP TEAM CHRONIC DISEASE VISIT ANNUAL PCP TEAM CHRONIC DISEASE VISIT [facility] Start: 02-11-2023 BP CONTROLLED (<130/80) BP CONTROLLED (<130/80) [facility] Start: 02-11-2023 COVID-19 VACCINE (#1) COVID-19 VACCINE (#1) [facility] Comment on above: Postponed from 1984 (Declined at t his time) Start: 02-11-2023 PNEUMOCOCCAL (2 - PCV) PNEUMOCOCCAL (2 - PCV) [facility] Comment on above: Postponed from 08/01/2021 (Declined at t his time) Start: 01-28-2023 ANNUAL PCP TEAM CHRONIC DISEASE VISIT ANNUAL PCP TEAM CHRONIC DISEASE VISIT [facility] Start: 01-10-2023 Influenza vaccination [facility] Start: 12-17-2022 Adult depression screening assessment DEPRESSION SCREENING [facility] Start: 10-26-2022 Patient discharge [facility] Start: 10-25-2022 Application of intermittent pneumatic compression device [facility] Start: 10-25-2022 End: 10-25-2022 Following clinical pathway protocol [facility] Start: 10-25-2022 Ambulation without limitation [facility] Start: 10-25-2022 Incentive spirometry [facility] Start: 10-25-2022 Taking patient vital signs [facility] Start: 10-25-2022 [facility] Start: 10-25-2022 Endoscopic retrograde cholangiopancreatography [facility] Start: 10-25-2022 Anes intraperitoneal upper abdomen w/laps nos [facility] Start: 10-25-2022 Ercp remove calculi/debris biliary/pancreas duct [facility] Start: 10-25-2022 Ercp stent placement biliary/pancreatic duct [facility] Start: 10-25-2022 Laps surg cholecystectomy w/cholangiography [facility] Start: 10-25-2022 Admission procedure [facility] Start: 10-25-2022 Catheterization of vein [facility] Start: 08-11-2022 Procedure [facility] Start: 08-01-2022 Adult depression screening assessment DEPRESSION SCREENING [facility] Start: 07-25-2022 Iv infusion therapy/prophylaxis /dx 1st to 1 hr [facility] Start: 04-19-2022 End: 05-03-2022 Influenza virus A and B RNA and SARS-CoV-2 (COVID-19) N gene panel - Respiratory specimen by DEAN with probe detection COVID WITH FLUA+B, ROUTINE Microbiology Routine Sore throat URI, acute Expected: 04/19/2022, Expires: 05/03/2022 [facility] Work Phone: Comment on above: Expected: 04/19/2022, Expires: 2 Start: 04-19-2022 Acute hepatitis 2000 panel - Serum [facility] Work Phone: Start: 04-19-2022 Bordetella pertussis IgG Ab [Units/volume] in Serum [facility] Work Phone: Start: 04-19-2022 In-vitro immunologic test [facility] Work Phone: Start: 04-19-2022 Mumps virus IgM Ab [Units/volume] in Serum [facility] Work Phone: Start: 04-19-2022 Varicella-zoster virus antibody IgG measurement [facility] Work Phone: Start: 03-23-2022 End: 04-06-2022 Influenza virus A and B RNA and SARS-CoV-2 (COVID-19) N gene panel - Respiratory specimen by DEAN with probe detection COVID WITH FLUA+B, ROUTINE Microbiology Routine Viral URI with cough Expected: 03/23/2022, Expires: 04/06/2022 [facility] Work Phone: Comment on above: Expected: 03/23/2022, Expires: 2 Start: 02-12-2022 Celiac disease screen [facility] Work Phone: Start: 02-11-2022 Elastase, pancreatic (el-1), fecal; quantitative [facility] Work Phone: Start: 02-11-2022 Fat [Presence] in Stool [facility] Work Phone: Start: 02-11-2022 Protein measurement [facility] Work Phone: Start: 02-07-2022 Immunoglobulin measurement [facility] Work Phone: Start: 02-07-2022 Procedure [facility] Work Phone: Start: 02-07-2022 Serum immunofixation [facility] Work Phone: Start: 02-07-2022 Plasma total protein S measurement [facility] Work Phone: Start: 02-07-2022 [facility] Work Phone: Start: 01-24-2022 [facility] Work Phone: Start: 01-10-2022 Influenza vaccination INFLUENZA (#1) [facility] Start: 11-15-2021 Colonoscopy w/biopsy single/multiple COLONOSCOPY AND BIOPSY [facility] Work Phone: Start: 11-15-2021 Egd insert guide wire dilator passage esophagus EGD GUIDE WIRE INSERTION [facility] Work Phone: Start: 11-15-2021 Egd transoral biopsy single/multiple EGD BIOPSY SINGLE/MULTIPLE [facility] Work Phone: Start: 11-15-2021 Patient discharge [facility] Work Phone: Start: 11-08-2021 Influenza vaccination INFLUENZA (#1) [facility] Comment on above: Postponed from 01/10/2021 (Declined at t his time) Start: 09-19-2021 Screening for malignant neoplasm of cervix Cervical Cancer Screening [facility] Start: 08-01-2021 PNEUMOCOCCAL (2 - PCV) PNEUMOCOCCAL (2 - PCV) [facility] Start: 08-01-2021 Pneumococcal vaccination [facility] Start: 05-12-2021 DEPRESSION ASSESSMENT DEPRESSION ASSESSMENT [facility] Start: 01-11-2003 HEPATITIS A (1 of 2 - Risk 2-dose series) HEPATITIS A (1 of 2 - Risk 2-dose series) [facility] Start: 01-11-2003 Hepatitis A Vaccine (1 of 2 - Risk 2-dose series) Hepatitis A Vaccine (1 of 2 - Risk 2-dose series) [facility] Start: 01-11-2003 Hepatitis B Vaccine (1 of 3 - 19+ 3-dose series) Hepatitis B Vaccine (1 of 3 - 19+ 3-dose series) [facility] Start: 01-11-2003 Shingrix Vaccine (1 of 2) Shingrix Vaccine (1 of 2) Saundra jackson [facility] Start: 01-11-2003 [facility] Start: 01-11-2002 Anxiety Screening Anxiety Screening [facility] Start: 01-11-2002 BP CONTROLLED (<130/80) BP CONTROLLED (<130/80) [facility] Start: 01-11-2002 Depression Screening Depression Screening [facility] Start: 01-11-2002 MMR (1 of 2 - Risk 2-dose series) MMR (1 of 2 - Risk 2-dose series) [facility] Start: 01-11-2002 MMR Vaccine (1 of 2 - Risk 2-dose series) MMR Vaccine (1 of 2 - Risk 2-dose series) [facility] Start: 01-11-1994 Meningococcal B Vaccine: Consider Based On Risk (1 of 4 - Increased Risk) Meningococcal B Vaccine: Consider Based On Risk (1 of 4 - Increased Risk) [facility] Start: 01-11-1994 MENINGOCOCCAL B: Consider based on risk (1 of 4 - Increased Risk Bexsero 2-dose series) MENINGOCOCCAL B: Consider based on risk (1 of 4 - Increased Risk Bexsero 2-dose series) [facility] Start: 01-11-1994 MENINGOCOCCAL B: Consider based on risk (1 of 4 - Increased Risk) MENINGOCOCCAL B: Consider based on risk (1 of 4 - Increased Risk) [facility] Start: 01-11-1989 Covid-19 Vaccine (#1) Covid-19 Vaccine (#1) [facility] Start: 01-11-1989 COVID-19 VACCINE (1) [facility] Start: 01-11-1985 HEPATITIS A (1 of 2 - Risk 2-dose series) HEPATITIS A (1 of 2 - Risk 2-dose series) [facility] Start: 1984 COVID-19 VACCINE (#1) COVID-19 VACCINE (#1) [facility] Start: 1984 HEPATITIS B (1 of 3 - 3-dose series) HEPATITIS B (1 of 3 - 3-dose series) [facility] Albumin [Moles/volum e] in Serum or Plasma [facility] Work Phone: Albumin/Globulin ratio [facility] Work Phone: C reactive protein [Mass/volume] in Serum or Plasma [facility] Work Phone: Celiac disease screen [facility] Work Phone: Ceruloplasmin [Mass/ volume] in Serum or Plasma [facility] Copper [Moles/volume ] in Serum or Plasma [facility] Cytomegalovirus IgG antibody measurement [facility] Cytomegalovirus IgM antibody assay [facility] End: 03-19-2025 DBT Breast - bilateral screening SOURAV SCREENING [facility] Radiology Routine Encounter for screening mammogram for breast cancer 1 Occurrences starting 02/18/2024 until 03/19/2025 [facility] Work Phone: Comment on above: 1 Occurrences starting 02/18/2024 until 03/19/2025 End: 07-04-2025 DBT Breast - bilateral screening SOURAV SCREENING [facility] Radiology Routine Encounter for screening mammogram for breast cancer 1 Occurrences starting 06/04/2024 until 07/04/2025 [facility] Work Phone: Comment on above: 1 Occurrences starting 06/04/2024 until 07/04/2025 Electrophoresis: [id number] [facility] Work Phone: Electrophoresis: yudi ma globulin [facility] Work Phone: Endometrial bx w/wo endocervix bx w/o dilat spx ENDOMETRIAL BIOPSY Procedures Routine Menorrhagia with regular cycle Ordered: 08/27/2024 [facility] Work Phone: Comment on above: Ordered: 08/27/2024 Jason Romero virus c apsid IgG Ab [Units/volume] in Serum [facility] Jason Romero virus c apsid IgM Ab [Units/volume] in Serum [facility] Jason Romero virus n uclear IgG Ab [Units/volume] in Cerebral spinal fluid [facility] Jason-Romero virus s erologic test [facility] Erythrocyte sediment ation rate [facility] Work Phone: Fat [Mass/mass] in Stool [facility] Work Phone: Fat.neutral [Presenc e] in Stool [facility] Work Phone: Globulin measurement [facility] Work Phone: Hepatitis A virus Ig M Ab [Presence] in Serum [facility] Hepatitis B core ant ibody measurement, IgM type [facility] Hepatitis B surface antigen measurement [facility] Hepatitis C antibody measurement [facility] IgA [Mass/volume] in Serum or Plasma [facility] Work Phone: IgE [Units/volume] i n Serum or Plasma [facility] Work Phone: IgG [Mass/volume] in Serum or Plasma [facility] Work Phone: IgM [Mass/volume] in Serum or Plasma [facility] Work Phone: Measurement of immun oglobulin A in serum specimen [facility] Work Phone: End: 12-13-2024 MR Knee - left WO contrast MRI KNEE WO IVCON LEFT Radiology Routine Internal derangement of left knee 1 Occurrences starting 11/14/2023 until 12/13/2024 [facility] Work Phone: Comment on above: 1 Occurrences starting 11/14/2023 until 12/13/2024 Neutrophil cytoplasm ic Ab.classic [Units/volume] in Serum [facility] Work Phone: P-ANCA measurement [facility] Work Phone: PAP TEST PAP TEST Lab [facility] Screening for cervical cancer Encounter for gynecological examination (general) (routine) without abnormal findings Encounter for screening for human papillomavirus (HPV) 06/04/2024 2:30 PM EST [facility] Patient Education [facility] Work Phone: Patient referral [facility] Work Phone: Procedure [facility] Work Phone: Procedure [facility] Protein electrophore sis panel - Serum or Plasma [facility] Work Phone: Protein measurement [facility] Work Phone: Protein S assay [facility] Work Phone: Protein S Free Ag actual/normal in Platelet poor plasma by Immunoassay [facility] Work Phone: Protein S, functional assay [facility] Work Phone: End: 07-11-2023 Radex spine thoracic 3 views XR THORACIC GENERAL 3V AP/LAT/SWIMMERS Radiology STAT Acute midline thoracic back pain 1 Occurrences starting 06/11/2022 until 07/11/2023 [facility] Work Phone: Comment on above: 1 Occurrences starting 06/11/2022 until 07/11/2023 Serum protein electrophoresis [facility] Work Phone: Smooth muscle Ab [Pr esence] in Serum [facility] Tissue Pathology bio psy report SURGICAL PATHOLOGY Lab Routine Menorrhagia with regular cycle 08/27/2024 10:52 AM EDT [facility] Tissue transglutamin ase IgA Ab [Units/volume] in Serum [facility] Work Phone: End: 12-27-2024 US Abdomen limited US ABDOMEN LTD Radiology Routine Cystic lesion of abdominal viscera 1 Occurrences starting 11/28/2023 until 12/27/2024 [facility] Comment on above: 1 Occurrences starting 11/28/2023 until 12/27/2024 End: 07-17-2023 XR HAND GENERAL 3V PA/LAT/OBL RIGHT XR HAND GENERAL 3V PA/LAT/OBL RIGHT Radiology Routine Right hand pain 1 Occurrences starting 06/17/2022 until 07/17/2023 [facility] Work Phone: Comment on above: 1 Occurrences starting 06/17/2022 until 07/17/2023 XR HAND GENERAL 3V P A/LAT/OBL RIGHT XR HAND GENERAL 3V PA/LAT/OBL RIGHT Radiology Routine Right hand pain 06/17/2022 3:38 PM EST [facility] Work Phone: [facility] Immunizations Immunization Date Immunization Notes Care Provider Stephanie rashid 11-28-2023 tetanus toxoid, redu janis diphtheria toxoid, and acellular pertussis vaccine, adsorbed Sarmad Holger ASSESSMENT DIRECTOR.KITCHEN FOOD ASSEMBLER Work Phone: [facility] 04-07-2023 influenza, injectabl e, quadrivalent, contains preservative Michelle Grimm ASSESSMENT DIRECTOR.KITCHEN FOOD ASSEMBLER Work Phone: [facility] 04-07-2023 influenza virus vacc ine, unspecified formulation Darnell Currie V, DO Work Phone: [facility] 01-02-2022 influenza, injectabl e, quadrivalent, preservative free Carrillo Pendlebury ASSESSMENT DIRECTOR.KITCHEN FOOD ASSEMBLER Work Phone: [facility] 01-02-2022 influenza virus vacc ine, unspecified formulation April Corral MD Work Phone: [facility] 08-01-2020 influenza, injectabl e, quadrivalent, contains preservative Yu Castillo MD Work Phone: [facility] 08-01-2020 pneumococcal polysaccharide vaccine, 23 valent Yu Castillo MD Work Phone: [facility] 02-19-2018 influenza, injectabl e, quadrivalent, preservative free Carrillo Pendlebury ASSESSMENT DIRECTOR.KITCHEN FOOD ASSEMBLER Work Phone: [facility] 03-04-2017 influenza, injectabl e, quadrivalent, preservative free Carrillo Pendlebury ASSESSMENT DIRECTOR.KITCHEN FOOD ASSEMBLER Work Phone: [facility] Payers Date Payer Category Payer Self-pay [id number] 2022 Unknown [id number] 2015 Medicaid [employer] [place] [employer] [id number] 2015-Present [phone] [place] [id number] Medicaid [id number] 2015 Medicaid [id number] 2014 Unknown [id number] 1984 Unknown [id number] Unknown [id number] Unknown [id number] Unknown [id number] Unknown [id number] Unknown [id number] Unknown [id number] Unknown [id number] Social History Date Type Detail Facility Start: 07-01-2020 End: 02-15-2024 Tobacco smoking status NHIS Smokes tobacco daily [facility] Work Phone: History of tobacco use Cigarette Smoker [facility] Work Phone: Start: 07-01-2020 End: 11-14-2023 Cigarettes smoked current (pack per day) - Reported 1 [facility] Start: 07-01-2020 End: 02-15-2024 Tobacco use and exposure Smokeless tobacco non-user [facility] Work Phone: Start: 08-06-2021 End: 09-24-2024 Alcohol intake Current drinker of alcohol (finding) [facility] Start: 08-07-2021 End: 05-13-2022 History SDOH Alcohol Frequency 2 [facility] Start: 08-07-2021 End: 02-11-2022 History SDOH Alcohol Std Drinks 1 [facility] Start: 08-01-2020 History SDOH Alcohol Comment occasional [facility] Start: 08-07-2021 End: 05-13-2022 History SDOH Social Connections Phone 5 [facility] Start: 08-07-2021 End: 05-13-2022 History SDOH Social Connections Get Together 98 [facility] Start: 08-07-2021 History SDOH Social Connections Living 7 [facility] Start: 08-07-2021 End: 05-13-2022 History SDOH Physical Activity MPS 3 [facility] Start: 1985 Sex Assigned At Not on file [facility] Start: 03-30-2021 End: 02-19-2022 Exposure to SARS-CoV-2 (event) Not sure [facility] Start: 09-26-2021 End: 04-27-2023 Tobacco smoking status NHIS Unknown if ever smoked [facility] Start: 08-21-2020 None [facility] Start: 08-21-2020 With Family [facility] Start: 1985 Sex Assigned At Female [facility] Start: 11-16-2021 End: 11-26-2021 Exposure to SARS-CoV-2 (event) Unable to assess [facility] Start: 05-13-2022 History SDOH Physica l Activity MPS 13 [facility] Start: 05-12-2022 End: 11-14-2023 Social connection and isolation panel [facility] In a typical week, h ow many times do you talk on the telephone with family, friends, or neighbors? Patient refused [facility] Are you now , , , , never or living with a partner? Refused [facility] Do you feel stress - tense, restless, nervous, or anxious, or unable to sleep at night because your mind is troubled all the time - these days [OSQ] Very much [facility] (I/We) worried wheth er (my/our) food would run out before (I/we) got money to buy more. DK or Refused [facility] The food that (I/we) bought just didn't last, and (I/we) didn't have money to get more. Sometimes true [facility] Start: 11-23-2018 Tobacco smoking status Heavy t obacco smoker (finding) [facility] Do you belong to any clubs or organizations such as mu-ism groups, unions, fraternal or athletic groups, or school groups? No [facility] Do you feel stress - tense, restless, nervous, or anxious, or unable to sleep at night because your mind is troubled all the time - these days [OSQ] Not at all [facility] In the past 12 month s, was there a time when you were not able to pay the mortgage or rent on time? Yes [facility] Are you now , , , , never or living with a partner? Never [facility] How often to you hav e a drink containing alcohol? Monthly or less [facility] How many standard dr inks containing alcohol do you have on a typical day? 1 or 2 [facility] How often do you hav e 6 or more drinks on 1 occasion? Never [facility] How hard is it for y ou to pay for the very basics like food, housing, medical care, and heating Somewhat hard [facility] (I/We) worried curt er (my/our) food would run out before (I/we) got money to buy more. Never true [facility] Sexual Orientation Yves Maira reneeloyd [facility] Start: 07-21-2018 Sex Female (finding) [facility] NEGATED: Highlighted row [facility] Medical Equipment Procedure Code Equipment Code Equipment Original Text Equipment Identifier Dates Total cholecystectomy with exploration of common bile duct [id number] FDA Start: 10-25-2022 Total cholecystectomy with exploration of common bile duct [id number] FDA Start: 10-25-2022 ERCP (endoscopic retrograde cholangiopancreatograph y) ([id number]) [id number] FDA Start: 10-25-2022 Goals Date Patient Goal Desired Activity /State Functional Status Date Assessment Result Facility 09-19-2024 Functional Status Independent Yves albright [facility] 09-19-2024 Functional Status ID band on, Allergy Band on [facility] 01-10-2023 Functional Status Standard Safet y ID band on, Call device within reach, Bed in low position, Wheels locked, Upper/Half-Length side-rails up, Bedside Cart Locked, Safety level maintained [facility] 10-26-2022 Functional status Ambulates;Chair;Bedrest [facility] Work Phone: Mental Status Date Assessment Result Facility 09-19-2024 Mental Status Orientation Oriented x 4 [facility] 09-19-2024 Mental Status [facility] 02-12-2023 Cognitive function Level Of Cons ciousness Follows Commands;Drowsy [facility] Work Phone: 02-12-2023 Cognitive function Voice/Name [facility] Work Phone: 01-10-2023 Mental Status Orientation Oriented x 4 [facility] 10-26-2022 Cognitive function Awake;Alert;A ppropriate;Follow s Commands [facility] Work Phone: 10-25-2022 Cognitive function Voice/Name [facility] Work Phone: 09-10-2022 Cognitive function Awake;Alert;A ppropriate;Follow s Commands [facility] Work Phone: 07-25-2022 Cognitive function Voice/Name [facility] Work Phone: 01-24-2022 Cognitive function Level Of Cons ciousness Awake;Alert;Appropriate;Follow s Commands [facility] Work Phone: 11-15-2021 Cognitive function Voice/Name [facility] Work Phone: 11-15-2021 Cognitive function Patient Orien tation Person;Place;Time [facility] Work Phone: Clinical Notes 08-06-2021 to 09-27-2024 Bennie Brown MD - 09/27/2024 8:40 AM Bennie Messer MD - 09/27/2024 8:40 AM EDT Note Date & Type Note Facility 09-27-2024 History and physical note Pre-Op History and Physical HPI: The patient is a 39 year old female presenting for pre-operative visit. She is scheduled for TLH, bilateral salpingectomy, cysto, for AUB, fibroid uterus , adenomyosis on 10/14/24. Procedure discussed along with risks, benefits and complications. Other alternatives discussed for management. Consent form signed? Yes. PAST MEDICAL HISTORY Diagnosis Date Anxiety and depression Bipolar affective (HCC) Crohn's disease (HCC) Diverticulosis Hemorrhoid PAST SURGICAL HISTORY Procedure Laterality Date DILATION & CURETTAGE LIGATE FALLOPIAN TUBE REMOVAL GALLBLADDER 10/26/2022 At [facility] LEFT OP SURGERY Right artery repair after cutting herself Current Outpatient Medications Medication Sig Dispense Refill ondansetron orally disintegrating (ZOFRAN ODT) 4 mg disintegrating tablet dissolve 1 tablet ON TONGUE every 8 hours [address] (PROTONIX) 40 mg tablet Take 1 tablet by mouth once daily. omeprazole (PRILOSEC) 20 mg capsule Take 1 capsule by mouth two times a day. 1/2 hr before meal. (Patient not taking: Reported on 08/27/2024) 60 capsule 1 escitalopram oxalate (LEXAPRO) 20 mg tablet Take 1 tablet by mouth once daily. 90 tablet 1 lamoTRIgine (LAMICTAL) 25 mg tablet Take 2 tablets by mouth once daily. Take with 200 mg tablet. 180 tablet 1 lamoTRIgine (LAMICTAL) 200 mg tablet Take 1 tablet by mouth once daily. Take with additional 50 mg dose for a total of 250 mg every day 90 tablet 1 hydrOXYzine pamoate (VISTARIL) 25 mg capsule Take 1 capsule by mouth two times a day as needed for anxiety. 60 capsule 5 albuterol HFA (PROVENTIL HFA, VENTOLIN HFA) 90 mcg/actuation inhaler Inhale 2 Puffs as instructed every 6 hours as needed for wheezing/shortness of breath. 8.5 g 1 dicyclomine (BENTYL) 20 mg tablet Take 20 mg by mouth three times a day as needed. lisinopril (ZESTRIL) 30 mg tablet Take 1 tablet by mouth once daily. 90 tablet 3 ustekinumab (STELARA) 90 mg/mL injection Take one dose subcutaneously monthly albuterol HFA (PROVENTIL HFA, VENTOLIN HFA) 90 mcg/actuation inhaler Inhale 2 Puffs as instructed every 6 hours as needed for wheezing/shortness of breath. 1 Each 0 No current facility-administered medications for this visit. ALLERGIES: Amoxicillin and Tramadol PERSONAL HISTORY: Social History Tobacco Use Smoking status: Every Day Current packs/day: 1.00 Average packs/day: 1 pack/day for 13.0 years (13.0 ttl pk-yrs) Types: Cigarettes Smokeless tobacco: Never Vaping Use Vaping status: Never Used Substance Use Topics Alcohol use: Yes Comment: occasional Drug use: Yes Types: Marijuana Comment: daily FAMILY HISTORY: FAMILY HISTORY Problem Relation Age of Onset Depression Mother Bipolar disorder Mother No Known Problems Father No Known Problems Brother other (CABG) Maternal Grandfather No Known Problems Paternal Grandmother No Known Problems Paternal Grandfather REVIEW OF SYMPTOMS: negative except as noted above PHYSICAL EXAMINATION: VITALS: Last menstrual period 08/12/2024. GENERAL: The patient is well nourished, well hydrated in no acute distress. , The patient is oriented to time, place, and person. NECK: Supple. Full range of motion LUNGS: Clear to auscultation bilaterally. no wheezes, rhonchi or rales HEART: Regular rate and rhythm, Normal heart sounds, and No murmurs or gallops IMPRESSION: 39yo with AUB, fibroid uterus, adenomyosis PLAN: TLH, bilateral salpingectomy, Cysto Pt has been counseled on risks/benefits and alternatives of surgery including but not limited to anesthesia, bleeding, infection, injury to pelvic structures including bowel, bladder, ureters and vessels. Pt wishes to proceed with surgery at this time. Risk for transfusion, fistula formation reviewed Pre and post op instructions reviewed I have reviewed and updated past medical and surgical history, medications and allergies Bennie Nobles MD [facility] 09-27-2024 History and physical note Pre-Op History and Physical HPI: The patient is a 39 year old female presenting for pre-operative visit. She is scheduled for TLH, bilateral salpingectomy, cysto, for AUB, fibroid uterus , adenomyosis on 10/14/24. Procedure discussed along with risks, benefits and complications. Other alternatives discussed for management. Consent form signed? Yes. PAST MEDICAL HISTORY Diagnosis Date Anxiety and depression Bipolar affective (HCC) Crohn's disease (HCC) Diverticulosis Hemorrhoid PAST SURGICAL HISTORY Procedure Laterality Date DILATION & CURETTAGE LIGATE FALLOPIAN TUBE REMOVAL GALLBLADDER 10/26/2022 At [facility] LEFT OP SURGERY Right artery repair after cutting herself Current Outpatient Medications Medication Sig Dispense Refill ondansetron orally disintegrating (ZOFRAN ODT) 4 mg disintegrating tablet dissolve 1 tablet ON TONGUE every 8 hours [address] (PROTONIX) 40 mg tablet Take 1 tablet by mouth once daily. omeprazole (PRILOSEC) 20 mg capsule Take 1 capsule by mouth two times a day. 1/2 hr before meal. (Patient not taking: Reported on 08/27/2024) 60 capsule 1 escitalopram oxalate (LEXAPRO) 20 mg tablet Take 1 tablet by mouth once daily. 90 tablet 1 lamoTRIgine (LAMICTAL) 25 mg tablet Take 2 tablets by mouth once daily. Take with 200 mg tablet. 180 tablet 1 lamoTRIgine (LAMICTAL) 200 mg tablet Take 1 tablet by mouth once daily. Take with additional 50 mg dose for a total of 250 mg every day 90 tablet 1 hydrOXYzine pamoate (VISTARIL) 25 mg capsule Take 1 capsule by mouth two times a day as needed for anxiety. 60 capsule 5 albuterol HFA (PROVENTIL HFA, VENTOLIN HFA) 90 mcg/actuation inhaler Inhale 2 Puffs as instructed every 6 hours as needed for wheezing/shortness of breath. 8.5 g 1 dicyclomine (BENTYL) 20 mg tablet Take 20 mg by mouth three times a day as needed. lisinopril (ZESTRIL) 30 mg tablet Take 1 tablet by mouth once daily. 90 tablet 3 ustekinumab (STELARA) 90 mg/mL injection Take one dose subcutaneously monthly albuterol HFA (PROVENTIL HFA, VENTOLIN HFA) 90 mcg/actuation inhaler Inhale 2 Puffs as instructed every 6 hours as needed for wheezing/shortness of breath. 1 Each 0 No current facility-administered medications for this visit. ALLERGIES: Amoxicillin and Tramadol PERSONAL HISTORY: Social History Tobacco Use Smoking status: Every Day Current packs/day: 1.00 Average packs/day: 1 pack/day for 13.0 years (13.0 ttl pk-yrs) Types: Cigarettes Smokeless tobacco: Never Vaping Use Vaping status: Never Used Substance Use Topics Alcohol use: Yes Comment: occasional Drug use: Yes Types: Marijuana Comment: daily FAMILY HISTORY: FAMILY HISTORY Problem Relation Age of Onset Depression Mother Bipolar disorder Mother No Known Problems Father No Known Problems Brother other (CABG) Maternal Grandfather No Known Problems Paternal Grandmother No Known Problems Paternal Grandfather REVIEW OF SYMPTOMS: negative except as noted above PHYSICAL EXAMINATION: VITALS: Last menstrual period 08/12/2024. GENERAL: The patient is well nourished, well hydrated in no acute distress. , The patient is oriented to time, place, and person. NECK: Supple. Full range of motion LUNGS: Clear to auscultation bilaterally. no wheezes, rhonchi or rales HEART: Regular rate and rhythm, Normal heart sounds, and No murmurs or gallops IMPRESSION: 39yo with AUB, fibroid uterus, adenomyosis PLAN: TLH, bilateral salpingectomy, Cysto Pt has been counseled on risks/benefits and alternatives of surgery including but not limited to anesthesia, bleeding, infection, injury to pelvic structures including bowel, bladder, ureters and vessels. Pt wishes to proceed with surgery at this time. Risk for transfusion, fistula formation reviewed Pre and post op instructions reviewed I have reviewed and updated past medical and surgical history, medications and allergies Bennie Nobles MD documented in this encounter [facility] 09-24-2024 Note HNO ID: [id number] Author: TRINITY HERRERA APRN.KITCHEN FOOD ASSEMBLER Service: ? Author Type: Nurse Practitioner Type: Progress Notes Filed: 09/24/2024 13:47 Note Text: [facility] 09-19-2024 Hospital Discharge instructions Patient Education 09/19/2024 20:07:20 Abdominal Pain Abdominal Pain Abdominal pain is pain in the stomach or belly area. Everyone has this pain from time to time. In many cases it goes away on its own. But abdominal pain can sometimes be due to a serious problem, such as appendicitis. So it s important to know when to get help. Causes of abdominal pain There are many possible causes of abdominal pain. Common causes in adults include: Constipation, diarrhea, or gas Stomach acid flowing back up into the esophagus (acid reflux or heartburn) Severe acid reflux, called GERD (gastroesophageal reflux disease) A sore in the lining of the stomach or small intestine (peptic ulcer) Inflammation of the gallbladder, liver, or pancreas Gallstones or kidney stones Appendicitis Intestinal blockage An internal organ pushing through a muscle or other tissue (hernia) Urinary tract infections In women, menstrual cramps, fibroids, ovarian cysts, pelvic inflammatory disease, or endometriosis Inflammation or infection of the intestines, including Crohn's disease and ulcerative colitis Irritable bowel syndrome Diagnosing the cause of abdominal pain Your healthcare provider will give you a physical exam help find the cause of your pain. If needed, you will have tests. Belly pain has many possible causes. So it can be hard to find the reason for your pain. Giving details about your pain can help. Tell your provider where and when you feel the pain, and what makes it better or worse. Also let your provider know if you have other symptoms such as: Fever Tiredness Upset stomach (nausea) Vomiting Changes in bathroom habits Blood in the stool or black, tarry stool Weight loss that you can't explain (involuntary weight loss?) Also report any family history of stomach or intestinal problems, or cancers. Tell your provider about all your alcohol use and drug use. Tell your provider about all medicines you use, including herbs, vitamins, and supplements. Treating abdominal pain Some causes of pain need emergency medical treatment right away. These include appendicitis or a bowel blockage. Other problems can be treated with rest, fluids, or medicines. Your healthcare provider can give you specific instructions for treatment or self-care based on what is causing your pain. If you have vomiting or diarrhea, sip water or other clear fluids. When you are ready to eat solid foods again, start with small amounts of tqjn-ny-wcvktx, low-fat foods. These include apple sauce, toast, or crackers. When to get medical care Call 911 or go to the hospital right away if you: Can t pass stool and are vomiting Are vomiting blood or have bloody diarrhea or black, tarry diarrhea Have chest, neck, or shoulder pain Feel like you might pass out Have pain in your shoulder blades with nausea Have sudden, severe belly pain Have new, severe pain unlike any you have felt before Have a belly that is rigid, hard, and hurts to touch Call your healthcare provider if you have: Pain for more than 5 days Bloating for more than 2 days Diarrhea for more than 5 days A fever of 100.4 F (38 C) or higher, or as directed by your healthcare provider Pain that gets worse Weight loss for no reason Continued lack of appetite Blood in your stool How to prevent abdominal pain Here are some tips to help prevent abdominal pain: Eat smaller amounts of food at each meal. Don't eat greasy, fried, or other high-fat foods. Don't eat foods that give you gas. Exercise regularly. Drink plenty of fluids. To help prevent GERD symptoms: Quit smoking. Reduce alcohol and foods that increase stomach acid. Don't use aspirin or ytac-loq-ogzmdan pain and fever medicines, if possible. This includes nonsteroidal anti-inflammatory drugs (NSAIDs). Lose excess weight. Finish eating at least 2 hours before you go to bed or lie down. Raise the head of your bed. [id number] [employer]. [address] [place] [address]. All rights reserved. This information is not intended as a substitute for professional medical care. Always follow your healthcare professional's instructions. Follow Up Care 09/19/2024 18:17:23 With:MEDICAL, CLINIC Address: [address] [place] [place] [id number]- When:2-4 days [facility] 09-19-2024 Note Discharge Instructions Thank you for allowing [facility] to assist you with your healthcare needs. The following is important discharge information regarding your hospital visit. Diagnosis from Today's Visit Abdominal pain Abnormal finding on radiology exam What to Do Next Instructions from Your Care Team Interval increase in size of a left adrenal mass. Recommend further evaluation with nonemergent adrenal protocol CT or MRI. No qualifying data available. Post Acute Orders No qualifying data available. You Need to Schedule the Following Appointments Follow Up with MEDICAL, CLINIC When:Within 2-4 days Where:[address] [place] [place] [id number]- Allergies amoxicillin traMADol Medications Please ask your primary doctor or pharmacist before taking any other medication not listed, including over the counter drugs, herbal medications, vitamins and or supplements as they may interact with your home medications. Please take this list to your next doctor s visit. Bring all medications you take, including over the counter medications, herbals and other supplements with you to your doctor s visit. Patients and families are reminded to discard old lists and to update any records with all medication providers or retail pharmacies. Education Materials Abdominal Pain Abdominal pain is pain in the stomach or belly area. Everyone has this pain from time to time. In many cases it goes away on its own. But abdominal pain can sometimes be due to a serious problem, such as appendicitis. So it s important to know when to get help. Causes of abdominal pain There are many possible causes of abdominal pain. Common causes in adults include: Constipation, diarrhea, or gas Stomach acid flowing back up into the esophagus (acid reflux or heartburn) Severe acid reflux, called GERD (gastroesophageal reflux disease) A sore in the lining of the stomach or small intestine (peptic ulcer) Inflammation of the gallbladder, liver, or pancreas Gallstones or kidney stones Appendicitis Intestinal blockage An internal organ pushing through a muscle or other tissue (hernia) Urinary tract infections In women, menstrual cramps, fibroids, ovarian cysts, pelvic inflammatory disease, or endometriosis Inflammation or infection of the intestines, including Crohn's disease and ulcerative colitis Irritable bowel syndrome Diagnosing the cause of abdominal pain Your healthcare provider will give you a physical exam help find the cause of your pain. If needed, you will have tests. Belly pain has many possible causes. So it can be hard to find the reason for your pain. Giving details about your pain can help. Tell your provider where and when you feel the pain, and what makes it better or worse. Also let your provider know if you have other symptoms such as: Fever Tiredness Upset stomach (nausea) Vomiting Changes in bathroom habits Blood in the stool or black, tarry stool Weight loss that you can't explain (involuntary weight loss?) Also report any family history of stomach or intestinal problems, or cancers. Tell your provider about all your alcohol use and drug use. Tell your provider about all medicines you use, including herbs, vitamins, and supplements. Treating abdominal pain Some causes of pain need emergency medical treatment right away. These include appendicitis or a bowel blockage. Other problems can be treated with rest, fluids, or medicines. Your healthcare provider can give you specific instructions for treatment or self-care based on what is causing your pain. If you have vomiting or diarrhea, sip water or other clear fluids. When you are ready to eat solid foods again, start with small amounts of zwwc-ps-ekqkyh, low-fat foods. These include apple sauce, toast, or crackers. When to get medical care Call 911 or go to the hospital right away if you: Can t pass stool and are vomiting Are vomiting blood or have bloody diarrhea or black, tarry diarrhea Have chest, neck, or shoulder pain Feel like you might pass out Have pain in your shoulder blades with nausea Have sudden, severe belly pain Have new, severe pain unlike any you have felt before Have a belly that is rigid, hard, and hurts to touch Call your healthcare provider if you have: Pain for more than 5 days Bloating for more than 2 days Diarrhea for more than 5 days A fever of 100.4 F (38 C) or higher, or as directed by your healthcare provider Pain that gets worse Weight loss for no reason Continued lack of appetite Blood in your stool How to prevent abdominal pain Here are some tips to help prevent abdominal pain: Eat smaller amounts of food at each meal. Don't eat greasy, fried, or other high-fat foods. Don't eat foods that give you gas. Exercise regularly. Drink plenty of fluids. To help prevent GERD symptoms: Quit smoking. Reduce alcohol and foods that increase stomach acid. Don't use aspirin or cops-kjm-ikwgzjk pain and fever medicines, if possible. This includes nonsteroidal anti-inflammatory drugs (NSAIDs). Lose excess weight. Finish eating at least 2 hours before you go to bed or lie down. Raise the head of your bed. [id number] [employer]. [address] [place] [address], [place] [address]. All rights reserved. This information is not intended as a substitute for professional medical care. Always follow your healthcare professional's instructions. Additional Information VACCINATE! IT SAVES LIVES! Members of the community who have not yet received the COVID-19 vaccine and would like to receive it can visit one of [facility] vaccine clinics. There are many vaccine clinic locations within the [facility]. For locations and available times, please visit [email or web address] It is important to note that some COVID mobile vaccine clinics are held outdoors and may be canceled in rainy or stormy conditions. To learn more about pediatric vaccinations (ages 5-11), we invite you to visit the [facility] webpage. [email or web address] To learn more about the COVID-19 vaccine, we invite you to visit the CDC website for a list of frequently asked questions. https://www.cdc.gov/coronavirus/ 2019-ncov/vaccines/faq.html [facility] Patient Portal Access Instructions: Stay connected with your healthcare team and access your personal medical information anytime with the [facility] Patient Portal. If you would like a full copy of your medical records please contact the [facility] Medical Records Department Friday through Friday between 8a.m. and 4:30p.m. Please follow the directions below to access the portal: 1.Access the email account you provided upon registration to the hospital.2.Look for an invitation email from [facility].3.Open the email and access the invitation link: Accept Invitation to [facility]4.Fill in the required francois to create your account. Sign into [email or web address] with your username and password that you [...] you will allow to register on the [facility] Patient Portal for access to your information. You can also access the [facility] Patient Portal on the [employer] preethi. Simply click on Health Records under Health Data and then click on the [employer] logo. HOW TO SAFELY DISPOSE OF PRESCRIPTION [...] Call your local pharmacy or go to [email or web address] to find one close to you.3.Make use of household items: Use cat litter or old coffee grounds to dispose medications if other options are not available. Mix your drugs with these household products, seal them in an airtight container and throw it into the garbage. Call [facility]: [phone] to be sure your drugs can be [...] a CHART COPY Signatures Patient Education Materials Abdominal Pain Medication Leaflets My discharge plan and instructions have been reviewed and explained to me and IJANEE CHETOIA D understand my current condition and have read and understand these discharge instructions. I have received a written copy of the plan/instructions. If I have questions, I am aware that I should contact my doctor. 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 Multiplanar reformatted images are provided for review. Automated exposure control, iterative reconstruction, and/or weight based adjustment of the mA/kV was utilized to reduce the radiation dose to as low as reasonably achievable. COMPARISON: CT abdomen pelvis with contrast 10/19/2022. HISTORY: ORDERING SYSTEM PROVIDED HISTORY: Reason for Exam: abdominal pain FINDINGS: Visualized portion of the lower chest demonstrates no acute abnormality. Liver is within normal limits for size and demonstrates a smooth contour. In ill-defined somewhat linear area of hypoattenuation is appreciated within the right hepatic lobe anteriorly. No abnormal enhancement is noted. The gallbladder is surgically absent. The spleen and pancreas are unremarkable. Right adrenal is unremarkable. The left adrenal again demonstrates a 2.0 x 2.3 cm mass which is increased in size from prior 1.7 x 1.8 cm. Kidneys are within normal limits for size and enhance symmetrically. No hydroureteronephrosis or nephroureterolithiasis is identified bilaterally. The urinary bladder is incompletely distended. Uterus and adnexa appear age-appropriate. Stomach is largely decompressed. Bowel gas is noted to the level of the rectum without evidence of obstruction. No dilated loops of bowel are identified. The appendix is visualized and unremarkable. Descending colonic diverticula are noted. No free air or fluid. No abdominal or pelvic adenopathy. No acute osseous or soft tissue abnormalities. IMPRESSION: 1. No acute abnormalities within the abdomen or pelvis. 2. Interval increase in size of a left adrenal mass. Recommend further evaluation with nonemergent adrenal protocol CT or MRI. 3. Ill-defined somewhat linear area of hypoattenuation within the right hepatic lobe anteriorly. This is nonspecific and may represent focal fatty infiltration. 4. Colonic diverticulosis without evidence of diverticulitis. Interpreted by: Dariusz Corcoran Preliminary Report By: Dariusz Corcoran Electronically signed By Dariusz Corcoran Dictated Date: 09/19/2024 7:47:10 PM Prelim Date: 09/19/2024 7:56:27 PM Sign Date: 09/19/2024 7:56:27 PM Ordering Provider: [facility]05-01-2025 Telephone encounter Note* Telephone Encounter - Christine Richmond - 09/09/2024 3:07 PM EDT Patient called and requested 10/14/2024 and scheduled pr op for 09/27 [facility]05-01-2025 Miscellaneous Notes* Telephone Encounter - Christine Richmond - 09/09/2024 3:07 PM EDT Patient called and requested 10/14/2024 and scheduled pr op for 09/27 * Telephone Encounter - Pamela Venegas LPN - 09/09/2024 11:06 AM EDT Attempted to call patient with surgery dates. Voicemail is full. documented in this encounter[facility] Telephone encounter Note * Telephone Encounter - Pamela Venegas LPN - 09/09/2024 11:06 AM EDT Attempted to call patient with surgery dates. Voicemail is full. [facility]04-30-2025 Telephone encounter Note* Telephone Encounter - Nilo Servin LPN - 09/08/2024 10:33 AM EDT Prescription Refill Information The patient has been identified by name and date of : Yes Caregiver verified no other encounters exist for this prescription request: Yes Caregiver confirmed with patient/requestor that no other refills are due, in the near future, with this provider at this time: Yes The last office visit in the department: 11/28/23 Does the patient have a future office visit with this provider/department: No Requested Prescriptions Pending Prescriptions Disp Refills ondansetron orally disintegrating (ZOFRAN ODT) 4 mg disintegrating tablet 30 tablet 0 Sig: dissolve 1 tablet ON TONGUE every 8 hours Nilo Servin LPN September 08, 2024 10:33 AM [facility]04-30-2025 Miscellaneous Notes* Telephone Encounter - Nilo Servin LPN - 09/08/2024 10:33 AM EDT Prescription Refill Information The patient has been identified by name and date of : Yes Caregiver verified no other encounters exist for this prescription request: Yes Caregiver confirmed with patient/requestor that no other refills are due, in the near future, with this provider at this time: Yes The last office visit in the department: 11/28/23 Does the patient have a future office visit with this provider/department: No Requested Prescriptions Pending Prescriptions Disp Refills ondansetron orally disintegrating (ZOFRAN ODT) 4 mg disintegrating tablet 30 tablet 0 Sig: dissolve 1 tablet ON TONGUE every 8 hours Nilo Servin LPN September 08, 2024 10:33 AM documented in this encounterUniversity Hospitals [facility]04-25-2025 NoteHNO ID: [id number] Author: BENNIE BROWN MD Service: ? Author Type: Physician Type: Progress Notes Filed: 09/03/2024 08:47 Note Text: Subjective The patient is a 39-year-old female with a history of Crohn's disease presenting for evaluation of heavy menstrual bleeding and dysmenorrhea. Menstrual Irregularities - Reports regular menstrual cycles every 28 days, but with heavy bleeding and significant pain. - Heavy bleeding has progressively worsened over the past few years, particularly since the of her second child. - Passes clots approximately the size of a quarter. - Changes tampons or pads every time she uses the bathroom or feels a gush of blood; has experienced bleeding through clothes and onto bed linens. - does feel fatigued and dizziness during bleeding episodes - Has not tried hormonal treatments for bleeding. Declines IUD Pelvic Pain - Reports significant pain during menstrual cycles. - Takes Bentyl for pain management, but reports it is hit or miss in terms of effectiveness. - Denies history of abdominal adhesions. Past Surgical History - Tubal ligation. - Two vaginal deliveries. Past Diagnostic Results - Ultrasound: Revealed a fibroid with a partial submucosal component and adenomyosis. - Pap Smear: Negative. Gastrointestinal: (+) nausea during cycles Genitourinary: (+) menorrhagia, (+) dysmenorrhea, (+) passing clots Objective Blood pressure 126/78, weight 85.3 kg (188 lb), last menstrual period 08/12/2024. General: Narrow pelvis. Imaging: - Ultrasound: Partial submucosal fibroid, probable endometrial polyp, and adenomyosis. - Endometrial biopsy - benign - secretory endometrium - Pap/HPV 05/2024 negative 1. Menorrhagia with regular cycle (N92.0) 2. Submucous uterine fibroid (D25.0) 3. Endometrial polyp (N84.0) 4. Adenomyosis of uterus (N80.03) - Menorrhagia with regular cycles, progressively worsening since the of the second child. Associated with significant dysmenorrhea and passage of clots approximately the size of a quarter. - Ultrasound reveals a submucous uterine fibroid, an endometrial polyp, and adenomyosis. - Discussed the benign nature of fibroids and their potential to cause bleeding and pain depending on location. - Educated on the option of hysteroscopic resection of the submucous fibroid and endometrial polyp, which involves no abdominal incisions and utilizes a camera through the cervix to shave down the fibroid. This procedure offers a shorter recovery time but carries the risk of incomplete resection and potential regrowth of the fibroid. - Patient expressed a preference for a definitive solution to avoid recurrence. - Performed a pelvic examination, noting a narrow pelvis and minimal cervical descent. - Determined patient is a suitable candidate for a total laparoscopic hysterectomy due to the presence of a fibroid uterus and adenomyosis. - Explained the surgical procedure, including the creation of three small incisions in the abdomen, removal of the uterus, cervix, and fallopian tubes, and closure of the vaginal cuff. - Discussed the importance of avoiding strenuous activity postoperatively to prevent complications such as dehiscence of the vaginal cuff. - Informed patient of the expected recovery time of 4-6 weeks, with potential return to non-strenuous work after 2 weeks if recovery is uncomplicated. - Ordered CBC and thyroid function tests to assess for anemia and thyroid abnormalities prior to surgery. - Scheduled surgery for October, with a preoperative appointment to be held within 30 days of the procedure. - Patient prefers surgery to be performed in [place] for convenience. - Patient understands and agrees with the treatment plan. Attestation Recording using [employer] software for draft documentation of the visit was discussed with the patient/authorized farm loan representative; all questions welcomed and answered. Patient/authorized farm loan representative agreed to proceed Medical Decision Making: Problems: Moderate: Acute illness with systemic symptoms Data: Unique test result(s) reviewed: 3+ Unique test(s) ordered: 2 Risk: High: Decision on elective major surgery w/ risk factors Medical Decision Making [facility]: [facility] Instructions* Patient Instructions* Sisi Hyatt MA - 08/27/2024 10:20 AM EDT YOUR RECOVERY After your biopsy you may have: Vaginal bleeding (less than a normal menstrual period) Mild cramping Do NOT put anything in the vagina for 1 week after your endometrial biopsy. This includes: tampons douches and refraining from having sexual intercourse If you have any discomfort, you may take an over the counter pain medication (motrin, advil, ibuprofen, tylenol, etc). If this does not relieve your discomfort, contact the office. It is okay to wear a sanitary pad until the discharge and spotting stops. RISKS Although problems seldom occur with endometrial biopsies, there can be some complications. You may feel faint during and shortly after the procedure as well as have some bleeding after the procedure.There is also a risk of infection after the procedure. These complications are rare and can be easily treated. You should contact you doctor is you have any of the following: Heavy bleeding (more than your normal period) Bleeding with clots Severe abdominal pain Fever (more than 100.4F) Foul smelling vaginal discharge RESULTS We will have the results of your biopsy in 1-2 weeks. If you do not hear the results of your biopsyafter 2 weeks, please contact the office for the results. If you have any additional questions or concerns please do not hesitate to contact the office. documented in this encounterUniversity Hospitals [facility]04-18-2025 NoteHNO ID: [id number] Author: LISSA MEADE MD Service: ? Author Type: Physician Type: Progress Notes Filed: 08/27/2024 11:09 Note Text: Irvin is a 39 year old who presents today for an endometrial biopsy for heavy menses. Fibroids, adenomyosis, polyps - desires hysterectomy medicaid consent signed test: negative UNIVERSAL PROTOCOL / SAFETY CHECKLIST Procedure to be Performed: EMB Sign In: A Moment of CARE was completed. Appropriate PPE (Personal Protective Equipment) worn by all providers involved with the procedure. Special equipment not required. Patient/Surrogate Stated/Verified: Patient name, Date of , Relevant allergies, and The intended procedure Time Out: Relevant labs, photos, and/or imaging studies have been reviewed. Intended patient and procedure match the source document(s) (e.g. consent, HANDP, associated studies [imaging, pathology]) match the intended patient and procedure. Consent obtained and matches the intended procedure. Yes. Correct side/site is not applicable. Medications required for this procedure are not applicable. Fire risk assessed and is not applicable. Implants: are not applicable. Sign Out: Specimens are all correctly labeled and sent. All instruments, equipment, possible retained foreign bodies are accounted for. Yes. The post-procedure plan of care has been communicated to the patient or surrogate. PROCEDURE: EXTERNAL GENITALIA: Normal in appearance without lesions VAGINA: Normal in appearance without lesions BIOPSY: Speculum placed into the vagina with excellent visualization of the cervix. Cervix cleaned with betadine. Anterior lip of cervix grasped with single toothed tenaculum. Uterus sounded to 7 cm. Pipelle inserted into the uterus without difficulty and endometrial biopsy obtained. Specimen labeled and sent to pathology. Hemostasis achieved. Procedure Summary: Patient tolerated procedure well. ASSESSMENT: heavy menses PLAN: Specimens labeled and sent to Pathology. Lissa Meade [facility]04-18-2025 History of Present illness Narrative* Lissa Meade MD - 08/27/2024 10:19 AM EDT Irvin is a 39 year old who presents today for an endometrial biopsy for heavy menses. Fibroids, adenomyosis, polyps - desires hysterectomy medicaid consent signed test: negative UNIVERSAL PROTOCOL / SAFETY CHECKLIST Procedure to be Performed: EMB Sign In: A Moment of CARE was completed. Appropriate PPE (Personal Protective Equipment) worn by all providers involved with the procedure. Special equipment not required. Patient/Surrogate Stated/Verified: Patient name, Date of , Relevant allergies, and The intended procedure Time Out: Relevant labs, photos, and/or imaging studies have been reviewed. Intended patient and procedure match the source document(s) (e.g. consent, H&P, associated studies [imaging, pathology]) match the intended patient and procedure. Consent obtained and matches the intended procedure. Yes. Correct side/site is not applicable. Medications required for this procedure are not applicable. Fire risk assessed and is not applicable. Implants: are not applicable. Sign Out: Specimens are all correctly labeled and sent. All instruments, equipment, possible retained foreign bodies are accounted for. Yes. The post-procedure plan of care has been communicated to the patient or surrogate. PROCEDURE: EXTERNAL GENITALIA: Normal in appearance without lesions VAGINA: Normal in appearance without lesions BIOPSY: Speculum placed into the vagina with excellent visualization of the cervix. Cervix cleaned with betadine. Anterior lip of cervix grasped with single toothed tenaculum. Uterus sounded to 7 cm.Pipelle inserted into the uterus without difficulty and endometrial biopsy obtained. Specimen labeled and sent to pathology. Hemostasis achieved. Procedure Summary: Patient tolerated procedure well. ASSESSMENT: heavy menses PLAN: Specimens labeled and sent to Pathology. Lissa Meade MD documented in this encounterUniversity Hospitals [facility]04-10-2025 NoteHNO ID: [id number] Author: LUZMARIA BAÑUELOS MD Service: ? Author Type: Physician Type: Progress Notes Filed: 08/19/2024 11:23 Note Text: The patient presents for requested ultrasound. Full report available in the Imaging tab in [employer]. Luzmaria Bañuelos [facility]04-10-2025 History of Present illness Narrative* Luzmaria Bañuelos MD - 08/19/2024 11:08 AM EDT The patient presents for requested ultrasound. Full report available in the Imaging tab in [employer]. Luzmaria Bañuelos MD documented in this encounterUniversity Hospitals [facility]03-26-2025 NoteHNO ID: [id number] Author: GENO RODRIGES PA Service: ? Author Type: Physician [employer] Type: Progress Notes Filed: 08/04/2024 17:26 Note Text: [facility] Subjective Irvin Tan is a 39 year old female. Patient presents with: Sore Throat: ST x 2 weeks HPI 39-year-old female presents for sore throat x 2 weeks. Patient states she starting sore throat 2 weeks ago, then went away and returned about 3 to 4 days ago. She has had nasal congestion for 2 weeks. She has a mild cough. No chest pain or shortness of breath. No fevers. No vomiting or diarrhea. Still able to eat and drink. She has some pressure and pain in the ears and sinus pressure. She has tried allergy medication without much improvement in symptoms. No other complaint PAST MEDICAL HISTORY Diagnosis Date Anxiety and depression Bipolar affective (HCC) Crohn's disease (HCC) Diverticulosis Hemorrhoid PAST SURGICAL HISTORY Procedure Laterality Date DILATION AND CURETTAGE LIGATE FALLOPIAN TUBE REMOVAL GALLBLADDER 10/26/2022 At [facility] WRIST LEFT OP SURGERY Right artery repair after cutting herself ALLERGIES Amoxicillin and Tramadol MEDICATIONS ondansetron orally disintegrating (ZOFRAN ODT) 4 mg disintegrating tablet dissolve 1 tablet ON TONGUE every 8 hours omeprazole (PRILOSEC) 20 mg capsule Take 1 capsule by mouth two times a day. 1/2 hr before meal. escitalopram oxalate (LEXAPRO) 20 mg tablet Take 1 tablet by mouth once daily. lamoTRIgine (LAMICTAL) 25 mg tablet Take 2 tablets by mouth once daily. Take with 200 mg tablet. lamoTRIgine (LAMICTAL) 200 mg tablet Take 1 tablet by mouth once daily. Take with additional 50 mg dose for a total of 250 mg every day hydrOXYzine pamoate (VISTARIL) 25 mg capsule Take 1 capsule by mouth two times a day as needed for anxiety. albuterol HFA (PROVENTIL HFA, VENTOLIN HFA) 90 mcg/actuation inhaler Inhale 2 Puffs as instructed every 6 hours as needed for wheezing/shortness of breath. dicyclomine (BENTYL) 20 mg tablet Take 20 mg by mouth three times a day as needed. lisinopril (ZESTRIL) 30 mg tablet Take 1 tablet by mouth once daily. ustekinumab (STELARA) 90 mg/mL injection Take one dose subcutaneously monthly albuterol HFA (PROVENTIL HFA, VENTOLIN HFA) 90 mcg/actuation inhaler Inhale 2 Puffs as instructed every 6 hours as needed for wheezing/shortness of breath. FAMILY HISTORY Problem Relation Age of Onset Depression Mother Bipolar disorder Mother No Known Problems Father No Known Problems Brother other (CABG) Maternal Grandfather No Known Problems Paternal Grandmother No Known Problems Paternal Grandfather Social History Tobacco Use Smoking status: Every Day Current packs/day: 1.00 Average packs/day: 1 pack/day for 13.0 years (13.0 ttl pk-yrs) Types: Cigarettes Smokeless tobacco: Never Vaping Use Vaping status: Never Used Substance Use Topics Alcohol use: Yes Comment: occasional Drug use: Yes Types: Marijuana Comment: daily Review of Systems Constitutional: Negative for chills and fever. HENT: Positive for congestion, sinus pressure and sore throat. Negative for ear pain. Respiratory: Positive for cough. Negative for shortness of breath. Cardiovascular: Negative for chest pain. Gastrointestinal: Negative for diarrhea and vomiting. Objective BP 134/82 Pulse 83 Temp 36.6 ?C (97.8 ?F) (Tympanic) Resp 16 Wt 84.7 kg (186 lb 11.7 oz) LMP 04/30/2024 SpO2 98% BMI 33.08 kg/m? Physical Exam Vitals and nursing note reviewed. Constitutional: General: She is not in acute distress. Appearance: Normal appearance. She is not toxic-appearing. HENT: Right Ear: Tympanic membrane and ear canal normal. Left Ear: Tympanic membrane and ear canal normal. Nose: Mucosal edema and congestion present. Right Sinus: Maxillary sinus tenderness present. Left Sinus: Maxillary sinus tenderness present. Mouth/Throat: Mouth: Mucous membranes are moist. Pharynx: Uvula midline. Posterior oropharyngeal erythema present. Tonsils: No tonsillar exudate or tonsillar abscesses. 1+ on the right. 1+ on the left. Eyes: Conjunctiva/sclera: Conjunctivae normal. Cardiovascular: Rate and Rhythm: Normal rate and regular rhythm. Pulmonary: Effort: Pulmonary effort is normal. Breath sounds: Normal breath sounds. Skin: General: Skin is warm and dry. Neurological: Mental Status: She is alert. {ASSESSMENT/PLAN: 1. Sore throat - ICD9: 462, ICD10: J02.9 (primary diagnosis) - suspect viral - Group A strep molecular testing negative - Discussed supportive care treatment with fluids, rest and analgesia. - STREP A MOLECULAR (POC) 2. Bacterial sinusitis - ICD9: 473.9, 041.9, ICD10: J32.9, B96.89 - Will begin treatment with Doxycycline - Supportive care with plenty of fluids, rest, and analgesia prn. Diagnosis and treatment plan were discussed and questions were answered to the patient's satisfaction. Pt (more content not included)...[facility] History of Present illness Narrative* Geno Rodriges PA - 08/04/2024 5:19 PM EDT [facility] Subjective Irvin Tan is a 39 year old female. Patient presents with: Sore Throat: ST x 2 weeks HPI 39-year-old female presents for sore throat x 2 weeks. Patient states she starting sore throat 2 weeks ago, then went away and returned about 3 to 4 days ago. She has had nasal congestion for 2 weeks. She has a mild cough. No chest pain or shortness of breath. No fevers. No vomiting or diarrhea. Still able to eat and drink. She has some pressure and pain in the ears and sinus pressure. She has tried allergy medication without much improvement in symptoms. No other complaint PAST MEDICAL HISTORY Diagnosis Date Anxiety and depression Bipolar affective (HCC) Crohn's disease (HCC) Diverticulosis Hemorrhoid PAST SURGICAL HISTORY Procedure Laterality Date DILATION & CURETTAGE LIGATE FALLOPIAN TUBE REMOVAL GALLBLADDER 10/26/2022 At [facility] WRIST LEFT OP SURGERY Right artery repair after cutting herself ALLERGIES Amoxicillin and Tramadol MEDICATIONS ondansetron orally disintegrating (ZOFRAN ODT) 4 mg disintegrating tablet dissolve 1 tablet ON TONGUE every 8 hours omeprazole (PRILOSEC) 20 mg capsule Take 1 capsule by mouth two times a day. 1/2 hr before meal. escitalopram oxalate (LEXAPRO) 20 mg tablet Take 1 tablet by mouth once daily. lamoTRIgine (LAMICTAL) 25 mg tablet Take 2 tablets by mouth once daily. Take with 200 mg tablet. lamoTRIgine (LAMICTAL) 200 mg tablet Take 1 tablet by mouth once daily. Take with additional 50 mg dose for a total of 250 mg every day hydrOXYzine pamoate (VISTARIL) 25 mg capsule Take 1 capsule by mouth two times a day as needed for anxiety. albuterol HFA (PROVENTIL HFA, VENTOLIN HFA) 90 mcg/actuation inhaler Inhale 2 Puffs as instructed every 6 hours as needed for wheezing/shortness of breath. dicyclomine (BENTYL) 20 mg tablet Take 20 mg by mouth three times a day as needed. lisinopril (ZESTRIL) 30 mg tablet Take 1 tablet by mouth once daily. ustekinumab (STELARA) 90 mg/mL injection Take one dose subcutaneously monthly albuterol HFA (PROVENTIL HFA, VENTOLIN HFA) 90 mcg/actuation inhaler Inhale 2 Puffs as instructed every 6 hours as needed for wheezing/shortness of breath. FAMILY HISTORY Problem Relation Age of Onset Depression Mother Bipolar disorder Mother No Known Problems Father No Known Problems Brother other (CABG) Maternal Grandfather No Known Problems Paternal Grandmother No Known Problems Paternal Grandfather Social History Tobacco Use Smoking status: Every Day Current packs/day: 1.00 Average packs/day: 1 pack/day for 13.0 years (13.0 ttl pk-yrs) Types: Cigarettes Smokeless tobacco: Never Vaping Use Vaping status: Never Used Substance Use Topics Alcohol use: Yes Comment: occasional Drug use: Yes Types: Marijuana Comment: daily Review of Systems Constitutional: Negative for chills and fever. HENT: Positive for congestion, sinus pressure and sore throat. Negative for ear pain. Respiratory: Positive for cough. Negative for shortness of breath. Cardiovascular: Negative for chest pain. Gastrointestinal: Negative for diarrhea and vomiting. Objective BP 134/82 Pulse 83 Temp 36.6 C (97.8 F) (Tympanic) Resp 16 Wt 84.7 kg (186 lb 11.7 oz) LMP 04/30/2024 SpO2 98% BMI 33.08 kg/m Physical Exam Vitals and nursing note reviewed. Constitutional: General: She is not in acute distress. Appearance: Normal appearance. She is not toxic-appearing. HENT: Right Ear: Tympanic membrane and ear canal normal. Left Ear: Tympanic membrane and ear canal normal. Nose: Mucosal edema and congestion present. Right Sinus: Maxillary sinus tenderness present. Left Sinus: Maxillary sinus tenderness present. Mouth/Throat: Mouth: Mucous membranes are moist. Pharynx: Uvula midline. Posterior oropharyngeal erythema present. Tonsils: No tonsillar exudate or tonsillar abscesses. 1+ on the right. 1+ on the left. Eyes: Conjunctiva/sclera: Conjunctivae normal. Cardiovascular: Rate and Rhythm: Normal rate and regular rhythm. Pulmonary: Effort: Pulmonary effort is normal. Breath sounds: Normal breath sounds. Skin: General: Skin is warm and dry. Neurological: Mental Status: She is alert. {ASSESSMENT/PLAN: 1. Sore throat - ICD9: 462, ICD10: J02.9 (primary diagnosis) - suspect viral - Group A strep molecular testing negative - Discussed supportive care treatment with fluids, rest and analgesia. - STREP A MOLECULAR (POC) 2. Bacterial sinusitis - ICD9: 473.9, 041.9, ICD10: J32.9, B96.89 - Will begin treatment with Doxycycline - Supportive care with plenty of fluids, rest, and analgesia prn. Diagnosis and treatment plan were discussed and questions were answered to the patient's satisfaction. Pt acknowledged understanding of concepts and follow up plan. Specific signs and symptoms that would indicate the need for higher level of care were discussed in detail warranting prompt ER evaluation. KATHIE Wills Differential Diagnoses - Sinusitis is more likely for the following reason(s): suggested by H&P - Strep pharyngitis is less likely for the following reason(s): laboratory studies not suggestive Disposition The patient was discharged. Procedures documented in this encounterUniversity [facility]02-27-[facility]25 Telephone encounter Note * Telephone Encounter - Nona Trejo LPN - 07/08/2024 10:35 AM EST Patient MyChart message requesting the following refill Refill(s) Requested: Requested Prescriptions Pending Prescriptions Disp Refills ondansetron orally disintegrating (ZOFRAN ODT) 4 mg disintegrating tablet 30 tablet 0 Sig: dissolve 1 tablet ON TONGUE every 8 hours ALLERGIES Allergen Reactions Amoxicillin Rash Tramadol Rash (home) [phone] (work) [phone] (cell) Last Office Visit Date: 11/28/2023 Last Distance Health Visit: Visit date not found Future Appointment: Visit date not found The patients preferred pharmacy has been captured for this encounter? yes Request is for script(s) to be escript to pharmacy. Nona Trejo LPN [facility]02-27-2025 Miscellaneous Notes* Telephone Encounter - Nona Trejo LPN - 07/08/2024 10:35 AM EST Patient Ubequityhart message requesting the following refill Refill(s) Requested: Requested Prescriptions Pending Prescriptions Disp Refills ondansetron orally disintegrating (ZOFRAN ODT) 4 mg disintegrating tablet 30 tablet 0 Sig: dissolve 1 tablet ON TONGUE every 8 hours ALLERGIES Allergen Reactions Amoxicillin Rash Tramadol Rash (home) [phone] (work) [phone] (cell) Last Office Visit Date: 11/28/2023 Last Distance Health Visit: Visit date not found Future Appointment: Visit date not found The patients preferred pharmacy has been captured for this encounter? yes Request is for script(s) to be escript to pharmacy. Nona Trejo LPN documented in this encounter[facility] Telephone encounter Note * Telephone Encounter - Nilo Servin LPN - 06/14/2024 11:14 AM EST Prescription Refill Information The patient has been identified by name and date of : Yes Caregiver verified no other encounters exist for this prescription request: Yes Caregiver confirmed with patient/requestor that no other refills are due, in the near future, with this provider at this time: Yes The last office visit in the department: 11/28/23 Does the patient have a future office visit with this provider/department: No Requested Prescriptions Pending Prescriptions Disp Refills lisinopril (ZESTRIL) 30 mg tablet 90 tablet 3 Sig: Take 1 tablet by mouth once daily. *Last rx written 11/28/23 #90 with 3 refills. Pt is not due for refills. MC message to pt advising of the same. Nilo Servin LPN June 14, 2024 11:14 AM [facility]02-03-2025 Miscellaneous Notes* Telephone Encounter - Nilo Servin LPN - 06/14/2024 11:14 AM EST Prescription Refill Information The patient has been identified by name and date of : Yes Caregiver verified no other encounters exist for this prescription request: Yes Caregiver confirmed with patient/requestor that no other refills are due, in the near future, with this provider at this time: Yes The last office visit in the department: 11/28/23 Does the patient have a future office visit with this provider/department: No Requested Prescriptions Pending Prescriptions Disp Refills lisinopril (ZESTRIL) 30 mg tablet 90 tablet 3 Sig: Take 1 tablet by mouth once daily. *Last rx written 11/28/23 #90 with 3 refills. Pt is not due for refills. MC message to pt advising of the same. Nilo Servin LPN June 14, 2024 11:14 AM documented in this encounterUniversity [facility]als [facility]02-[facility]25 Telephone encounter Note * Telephone Encounter - Nilo Servin LPN - 06/14/2024 11:13 AM EST Prescription Refill Information The patient has been identified by name and date of : Yes Caregiver verified no other encounters exist for this prescription request: Yes Caregiver confirmed with patient/requestor that no other refills are due, in the near future, with this provider at this time: Yes The last office visit in the department: 11/28/23 Does the patient have a future office visit with this provider/department: No Requested Prescriptions Pending Prescriptions Disp Refills omeprazole (PRILOSEC) 20 mg capsule 60 capsule 1 Sig: Take 1 capsule by mouth two times a day. 1/2 hr before meal. Nilo Servin LPN June 14, 2024 11:13 AM [facility]02-03-2025 Miscellaneous Notes* Telephone Encounter - Nilo Servin LPN - 06/14/2024 11:13 AM EST Prescription Refill Information The patient has been identified by name and date of : Yes Caregiver verified no other encounters exist for this prescription request: Yes Caregiver confirmed with patient/requestor that no other refills are due, in the near future, with this provider at this time: Yes The last office visit in the department: 11/28/23 Does the patient have a future office visit with this provider/department: No Requested Prescriptions Pending Prescriptions Disp Refills omeprazole (PRILOSEC) 20 mg capsule 60 capsule 1 Sig: Take 1 capsule by mouth two times a day. 1/2 hr before meal. Nilo Servin LPN June 14, 2024 11:13 AM documented in this encounterUniversity Hospitals [facility]01-24-2025 NoteHNO ID: [id number] Author: LISSA MEADE MD Service: ? Author Type: Physician Type: Progress Notes Filed: 06/04/2024 14:39 Note Text: Surveillance Specialist offered: Patient declinesIzabela Bryan is a 39 year old who presents for an annual gynecologic exam with complaints, heavy bleeding and pelvic pain. Periods 6 days long. Clotting for most of the 6 days. Still very regular. Nausea with pain during periods. Still get period: Yes Bleeding amount bothersome: Yes Bleeding between periods: No Period symptoms: Breast tenderness; Cramps; Pelvic pain; None Number of lifetime partners: 10 control frequency: Never HPV vaccine: Yes; HPV:negative Last pap smear: never History of abnormal pap: No, all prior PAP smears have been normal Bothersome pelvic pain: Yes Last mammogram: never OB History T0 L2 SAB0 IAB0 Ectopic0 Multiple0 Live Births0 Healthcare Corporate Account Director History LMP: 04/30/2024, Having periods Age at Menarche: 11 Age at First : Age at Menopause: Healthcare Corporate Account Director History Comments: Sexual Activity: Not Currently; Female Contraception: Tubal Ligation Menstrual Tracking History Flowsheet Row Office Visit from 06/04/2024 in OB/Gynecology Period Cycle (Days) 30 Period Duration (Days) 6 Menstrual Flow Heavy PAST MEDICAL HISTORY Diagnosis Date Anxiety and depression Bipolar affective (HCC) Crohn's disease (HCC) Diverticulosis Hemorrhoid PAST SURGICAL HISTORY Procedure Laterality Date DILATION AND CURETTAGE LIGATE FALLOPIAN TUBE REMOVAL GALLBLADDER 10/26/2022 At [facility] LEFT OP SURGERY Right artery repair after cutting herself FAMILY HISTORY Problem Relation Age of Onset Depression Mother Bipolar disorder Mother No Known Problems Father No Known Problems Brother other (CABG) Maternal Grandfather No Known Problems Paternal Grandmother No Known Problems Paternal Grandfather SOCIAL HISTORY Social History Tobacco Use Smoking status: Every Day Current packs/day: 1.00 Average packs/day: 1 pack/day for 13.0 years (13.0 ttl pk-yrs) Types: Cigarettes Smokeless tobacco: Never Vaping Use Vaping status: Never Used Substance Use Topics Alcohol use: Yes Comment: occasional Drug use: Yes Types: Marijuana Comment: daily REVIEW OF SYSTEMS Abdomen: No abdominal pain, nausea, vomiting, diarrhea, or constipation. No bloating, early satiety, indigestion, or increased flatulence. Bladder: No dysuria, gross hematuria, urinary frequency, urinary urgency, or incontinence. Breast: No breast lumps, nipple d/c, overlying skin changes, redness or skin retraction. Allergies and current medication updated:Yes SENSITIVE EXAM: The sensitive examination was discussed with the Patient or Patient's Authorized Systems Development Manager. As applicable, any other physician, advance practice provider, medical student, or other health professional student that will be observing or involved in the sensitive examination for educational or training purposes was discussed with the Patient or Authorized Systems Development Manager. The Patient or Authorized Systems Development Manager has agreed to proceed with the sensitive examination. (Sensitive examination includes inspection and/or palpation of the breasts, pelvis, prostate and anorectal regions). EXAM: BP 102/70 Ht 5' 3 (1.60m) Wt 184 lb 6.4 oz (83.6kg) LMP 04/30/2024 BMI 32.67 kg/(m2). GENERAL: pleasant, female in no apparent distress HEENT: Normocephalic, atraumatic, mucus membranes moist, and no lesions NECK: Supple, full range of motion, no adenopathy, and thyroid normal DERMATOLOGY: Normal, without lesions, non-icteric, and non-hirsute BREAST: soft, non-tender, symmetric, no dominant mass, normal nipple-areolar complex, no lymphadenopathy, and no nipple discharge CHEST: Normal inspiratory effort ABDOMEN: soft, non-tender, and no masses PELVIC: external genitalia normal, normal Bartholin's glands, urethra, [place]'s glands, no vulvar lesions, no cervical lesions, good vaginal support, physiologic discharge present, normal appearing perineal body and perianal region BIMANUAL: deferred RECTOVAGINAL: deferred. NEURO: alert and oriented x3,exam grossly non-focal EXTREMITIES: normal ASSESSMENT/PLAN: 1) Health maintenance: Pap done with HPV. Mammogram starting age 40. 2) Contraception: tubal sterilization. Contraceptive options reviewed and information provided. 3) STD screening: Declined STD check. 4) Follow up one year or sooner as needed 5) US ordered to evaluate heavy menses Lissa Meade, [facility]01-24-2025 History of Present illness Narrative* Lissa Meade MD - 06/04/2024 2:03 PM EST Surveillance Specialist offered: Patient declines. Irvin is a 39 year old who presents for an annual gynecologic exam with complaints, heavy bleeding and pelvic pain. Periods 6 days long. Clotting for most of the 6 days. Still very regular. Nausea with pain during periods. Still get period: Yes Bleeding amount bothersome: Yes Bleeding between periods: No Period symptoms: Breast tenderness; Cramps; Pelvic pain; None Number of lifetime partners: 10 control frequency: Never HPV vaccine: Yes; HPV:negative Last pap smear: never History of abnormal pap: No, all prior PAP smears have been normal Bothersome pelvic pain: Yes Last mammogram: never OB History T0 L2 SAB0 IAB0 Ectopic0 Multiple0 Live Births0 Healthcare Corporate Account Director History LMP: 04/30/2024, Having periods Age at Menarche: 11 Age at First : Age at Menopause: Healthcare Corporate Account Director History Comments: Sexual Activity: Not Currently; Female Contraception: Tubal Ligation Menstrual Tracking History Flowsheet Row Office Visit from 06/04/2024 in OB/Gynecology Period Cycle (Days) 30 Period Duration (Days) 6 Menstrual Flow Heavy PAST MEDICAL HISTORY Diagnosis Date Anxiety and depression Bipolar affective (HCC) Crohn's disease (HCC) Diverticulosis Hemorrhoid PAST SURGICAL HISTORY Procedure Laterality Date DILATION & CURETTAGE LIGATE FALLOPIAN TUBE REMOVAL GALLBLADDER 10/26/2022 At [facility] LEFT OP SURGERY Right artery repair after cutting herself FAMILY HISTORY Problem Relation Age of Onset Depression Mother Bipolar disorder Mother No Known Problems Father No Known Problems Brother other (CABG) Maternal Grandfather No Known Problems Paternal Grandmother No Known Problems Paternal Grandfather SOCIAL HISTORY Social History Tobacco Use Smoking status: Every Day Current packs/day: 1.00 Average packs/day: 1 pack/day for 13.0 years (13.0 ttl pk-yrs) Types: Cigarettes Smokeless tobacco: Never Vaping Use Vaping status: Never Used Substance Use Topics Alcohol use: Yes Comment: occasional Drug use: Yes Types: Marijuana Comment: daily REVIEW OF SYSTEMS Abdomen: No abdominal pain, nausea, vomiting, diarrhea, or constipation. No bloating, early satiety, indigestion, or increased flatulence. Bladder: No dysuria, gross hematuria, urinary frequency, urinary urgency, or incontinence. Breast: No breast lumps, nipple d/c, overlying skin changes, redness or skin retraction. Allergies and current medication updated:Yes SENSITIVE EXAM: The sensitive examination was discussed with the Patient or Patient's Authorized Systems Development Manager. As applicable, any other physician, advance practice provider, medical student, or other health professional student that will be observing or involved in the sensitive examination for educational or training purposes was discussed with the Patient or Authorized Systems Development Manager. The Patient or Authorized Systems Development Manager has agreed to proceed with the sensitive examination. (Sensitive examination includes inspection and/or palpation of the breasts, pelvis, prostate and anorectal regions). EXAM: BP 102/70 Ht 5' 3 (1.60m) Wt 184 lb 6.4 oz (83.6kg) LMP 04/30/2024 BMI 32.67 kg/(m^2). GENERAL: pleasant, female in no apparent distress HEENT: Normocephalic, atraumatic, mucus membranes moist, and no lesions NECK: Supple, full range of motion, no adenopathy, and thyroid normal DERMATOLOGY: Normal, without lesions, non-icteric, and non-hirsute BREAST: soft, non-tender, symmetric, no dominant mass, normal nipple-areolar complex, no lymphadenopathy, and no nipple discharge CHEST: Normal inspiratory effort ABDOMEN: soft, non-tender, and no masses PELVIC: external genitalia normal, normal Bartholin's glands, urethra, [place]'s glands, no vulvar lesions, no cervical lesions, good vaginal support, physiologic discharge present, normal appearing perineal body and perianal region BIMANUAL: deferred RECTOVAGINAL: deferred. NEURO: alert and oriented x3,exam grossly non-focal EXTREMITIES: normal ASSESSMENT/PLAN: 1) Health maintenance: Pap done with HPV. Mammogram starting age 40. 2) Contraception: tubal sterilization. Contraceptive options reviewed and information provided. 3) STD screening: Declined STD check. 4) Follow up one year or sooner as needed 5) US ordered to evaluate heavy menses Lissa Meade MD documented in this encounterUniversity [facility]als [facility]01-24-2025 NoteHNO ID: [id number] Author: TRINITY HERRERA APRN.KITCHEN FOOD ASSEMBLER Service: ? Author Type: Nurse Practitioner Type: Progress Notes Filed: 06/04/2024 11:10 Note Text: PSYC FOLLOW UP - PSYCHIATRIC PROGRESS NOTE CC: Follow-up for medication management I have communicated my name and active licensure. The patient's identity and physical location were verified at the time of this visit. Either the patient or their legal farm loan representative has been informed of the risks and benefits of -- and alternatives to -- treatment through a remote evaluation and consents to proceed with the evaluation remotely. HPI: Irvin Tan is a 39 year old female presenting today for follow-up for medication management. Patient was last seen on 06/24/23 for Bipolar II Disorder/FREDY/PTSD, where Lamictal was increased to 250 mg daily. Encouraged to begin therapy. Patient completed bridge appointment with LENCHO Vargas on 12/25/23. Initiated on Buspar 7.5 mg BID. Today, patient reports my anxiety is off the chain. I started the Buspar but it made me feel like I had to scream, my anxiety was worse. I ran out of the Vistaril but that used to kind of help. Life is described as not bad. Starting work on 06/07 at [employer]. Anxious about dealing with people. 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 Working 2nd and 3rd shift. Has never worked shift engineer before. Living with roommate, Stefani (who she used to date but are now just friends). Continues on Lexapro and Lamictal as prescribed- denies side effects. Agrees to resume Vistaril PRN for anxiety and insomnia. Not interested in therapy. Sleep- sleeping ok; intermittent difficulty falling asleep-used to take Vistaril with benefit but ran out; 6 hours/night + napping during the day Interest- playing video games, napping Energy- I'm anemic so my energy sucks - declined iron pills, encouraged today Concentration- normal Appetite- good; stable weight Depression rated as 0/10, with 10 being the worst. Anxiety rated as 5/10, with 10 being the worst. Denies passive wishes. Denies suicidal ideation, plan, or intent. Denies homicidal ideation, plan, or intent. Denies delusions, hallucinations, or manic/hypomanic behaviors. Reports marijuana use- smoking daily. Denies other substance use/abuse. Risks and benefits of the medication, including any black box warnings, were discussed with the patient. Previous Discontinued Psychiatric Med Trials: Xiao (2008), Prozac, Neurontin, Buspar (worsened anxiety) Interval Progress: Same PATIENT DATA: Generalized Anxiety Disorder Scale (FREDY-7) 06/24/2023 12/25/2023 06/04/2024 FREDY - 7 SCORES Score 10 10 12 (0-4) minimal anxiety, (5-9) mild anxiety, (10-14) moderate anxiety, (15-21) severe anxiety Patient Health Questionnaire (PHQ-9) 06/24/2023 12/25/2023 06/04/2024 PHQ-9 Score 14 12 7 (0-4) minimal depression, (5-9) mild depression, (10-14) moderate depression, (15-19) moderately severe depression, (20-27) severe depression PROMIS Global Health PROMIS-10 Flowsheet Row [facility] from 06/04/2024 in Psychiatry Office Visit from 11/28/2023 in Family Medicine Lana Global Physical Health T Score 42.3 50.8 Global Mental Health T Score 31.3 43.5 0-10 Standard Pain Scale 5 5 PAST MEDICAL HISTORY Diagnosis Date Anxiety and depression Bipolar affective (HCC) Crohn's disease (HCC) Diverticulosis Hemorrhoid PAST SURGICAL HISTORY Procedure Laterality Date DILATION AND CURETTAGE LIGATE FALLOPIAN TUBE REMOVAL GALLBLADDER 10/26/2022 At [facility] LEFT OP SURGERY Right artery repair after cutting herself Current Outpatient Medications Medication Sig lamoTRIgine (LAMICTAL) 200 mg tablet Take 1 tablet by mouth once daily. Take with additional 50 mg dose for a total of 250 mg every day lamoTRIgine (LAMICTAL) 25 mg tablet Take 2 tablets by mouth once daily. Take with 200 mg tablet. ondansetron orally disintegrating (ZOFRAN ODT) 4 mg disintegrating tablet dissolve 1 tablet ON TONGUE every 8 hours albuterol HFA (PROVENTIL HFA, VENTOLIN HFA) 90 mcg/actuation inhaler Inhale 2 Puffs as instructed every 6 hours as needed for wheezing/shortness of breath. escitalopram oxalate (LEXAPRO) 20 mg tablet take 1 tablet by mouth once daily dicyclomine (BENTYL) 20 mg tablet Take 20 mg by mouth three times a day as needed. lisinopril (ZESTRIL) 30 mg tablet Take 1 tablet by mouth once daily. omeprazole (PRILOSEC) 20 mg capsule Take 1 capsule by mouth two times a day. 1/2 hr before meal. ustekinumab (STELARA) 90 mg/mL injection Take one dose subcutaneously monthly albuterol HFA (PROVENTIL HFA, VENTOLIN HFA) 90 mcg/actuation inhaler Inhale 2 Puffs as instructed every 6 hours as needed for wheezing/shortness of breath. No current facility-administered medications for this visit. ROS: GENERAL: Negative for malaise, significant weight loss and fever. DANIEL (more content not included)...[facility]11-20-20[facility] Telephone encounter Note* Telephone Encounter - Malika Choi - 03/31/2024 1:46 PM EST The following medication(s) is being requested: LAST APPT - 12/25/23 NEXT APPT - 04/02/24 Requested Prescriptions Pending Prescriptions Disp Refills lamoTRIgine (LAMICTAL) 200 mg tablet 90 tablet 0 Sig: Take 1 tablet by mouth once daily. Take with additional 50 mg dose for a total of 250 mg everyday lamoTRIgine (LAMICTAL) 25 mg tablet 180 tablet 0 Sig: Take 2 tablets by mouth once daily. Take with 200 mg tablet. Please process accordingly Malika Choi [facility]11-20-2024 Miscellaneous Notes* Telephone Encounter - Malika Choi - 03/31/2024 1:46 PM EST The following medication(s) is being requested: LAST APPT - 12/25/23 NEXT APPT - 04/02/24 Requested Prescriptions Pending Prescriptions Disp Refills lamoTRIgine (LAMICTAL) 200 mg tablet 90 tablet 0 Sig: Take 1 tablet by mouth once daily. Take with additional 50 mg dose for a total of 250 mg everyday lamoTRIgine (LAMICTAL) 25 mg tablet 180 tablet 0 Sig: Take 2 tablets by mouth once daily. Take with 200 mg tablet. Please process accordingly Malika Choi documented in this encounterUniversity Hospitals [facility]point [facility] Center10-09-2024 NotePatient Outreach (INTMMN) IRVIN TAN ([id number]) 1985 F Date Time Provider Department 02/18/24 APRIL CORRAL During your visit today, we recorded the following information about you: Allergies As of Date: 02/18/2024 Noted Allergy Reaction AMOXICILLIN 07/01/2020 2 - Rash TRAMADOL 07/01/2020 2 - Rash Date Reviewed: 02/15/2024 Reviewed by: Solis Mendosa MA - Fully Assessed Visit Diagnosis:Encounter for screening mammogram for breast cancer [Z12.31] Order(s):[facility] SCREENING [facility]Y [[id number]] Order #: [id number] FUTURE Prescriptions as of 02/23/2024 - ondansetron orally disintegrating (ZOFRAN ODT) 4 mg disintegrating tablet dissolve 1 tablet ON TONGUE every 8 hours - albuterol HFA (PROVENTIL HFA, VENTOLIN HFA) 90 mcg/actuation inhaler Inhale 2 Puffs as instructed every 6 hours as needed for wheezing/shortness of breath. - lamoTRIgine (LAMICTAL) 200 mg tablet Take 1 tablet by mouth once daily. Take with additional 50 mg dose for a total of 250 mg every day - lamoTRIgine (LAMICTAL) 25 mg tablet Take 2 tablets by mouth once daily. Take with 200 mg tablet. - busPIRone (BUSPAR) 7.5 mg tablet Take 1 tablet by mouth two times a day. - escitalopram oxalate (LEXAPRO) 20 mg tablet take 1 tablet by mouth once daily - dicyclomine (BENTYL) 20 mg tablet Take 20 mg by mouth three times a day as needed. - lisinopril (ZESTRIL) 30 mg tablet Take 1 tablet by mouth once daily. - omeprazole (PRILOSEC) 20 mg capsule Take 1 capsule by mouth two times a day. 1/2 hr before meal. - ustekinumab (STELARA) 90 mg/mL injection Take one dose subcutaneously monthly - albuterol HFA (PROVENTIL HFA, VENTOLIN HFA) 90 mcg/actuation inhaler Inhale 2 Puffs as instructed every 6 hours as needed for wheezing/shortness of breath. Problem List As Of Date 02/18/2024 Noted Resolved Obesity, Class I, BMI 30-34.9 [E66.811] 02/11/2022 Abdominal pain [R10.9] 05/07/2021 Cannabis hyperemesis syndrome concurrent with a*05/14/2022 Corneal abrasion [S05.00XA] 05/14/2022 Crohn's disease (HCC) [K50.90] 02/15/2022 Cystitis [N30.90] 05/14/2022 Diarrhea [R19.7] 05/14/2022 Essential (primary) hypertension [I10] 02/12/2022 Headache, unspecified headache type [R51.9] 05/14/2022 History of Crohn's disease [Z87.19] 05/14/2022 History of manic depressive disorder [Z86.59] 05/14/2022 Lumbar contusion [S30.0XXA] 05/14/2022 Nausea, vomiting, and diarrhea [R11.2, R19.7] 02/12/2022 Cystic lesion of abdominal viscera [K66.8] 12/04/2023 Encounter Status:Closed by HANNAH, PRODUSER on 02/23/24[facility] 02-15-2024 NoteHNO ID: [id number] Author: CARRILLO HUDSON APRN.KITCHEN FOOD ASSEMBLER Service: ? Author Type: Nurse Practitioner Type: Progress Notes Filed: 02/15/2024 13:07 Note Text: Subjective HPI Nontoxic-appearing female presents urgent care chief complaint lower back pain. Duration of symptoms 1 week. Associated symptoms lower back discomfort. History of back pain this is similar. Was lifting a mattress at work when she felt something pop in her back. Has had pain since. OTC medications little to no success. Denies any traumatic injuries. No night sweats fevers loss of bowel or bladder habit incontinence leg weakness or radiculopathy. Past medical history prescription medications allergies reviewed. Denies chance of . Is not breast-feeding. BP 132/80 Pulse 90 Temp 36.4 ?C (97.6 ?F) Resp 16 LMP 02/18/2023 SpO2 98% .Patient presents with: Back Pain: lower x today, lifting bed PAST MEDICAL HISTORY Diagnosis Date Anxiety and depression Bipolar affective (HCC) Crohn's disease (HCC) Diverticulosis Hemorrhoid PAST SURGICAL HISTORY Procedure Laterality Date DILATION AND CURETTAGE LIGATE FALLOPIAN TUBE REMOVAL GALLBLADDER 10/26/2022 At [facility] LEFT OP SURGERY Right artery repair after cutting herself ALLERGIES Amoxicillin and Tramadol MEDICATIONS ondansetron orally disintegrating (ZOFRAN ODT) 4 mg disintegrating tablet dissolve 1 tablet ON TONGUE every 8 hours albuterol HFA (PROVENTIL HFA, VENTOLIN HFA) 90 mcg/actuation inhaler Inhale 2 Puffs as instructed every 6 hours as needed for wheezing/shortness of breath. lamoTRIgine (LAMICTAL) 200 mg tablet Take 1 tablet by mouth once daily. Take with additional 50 mg dose for a total of 250 mg every day lamoTRIgine (LAMICTAL) 25 mg tablet Take 2 tablets by mouth once daily. Take with 200 mg tablet. busPIRone (BUSPAR) 7.5 mg tablet Take 1 tablet by mouth two times a day. escitalopram oxalate (LEXAPRO) 20 mg tablet take 1 tablet by mouth once daily dicyclomine (BENTYL) 20 mg tablet Take 20 mg by mouth three times a day as needed. lisinopril (ZESTRIL) 30 mg tablet Take 1 tablet by mouth once daily. omeprazole (PRILOSEC) 20 mg capsule Take 1 capsule by mouth two times a day. 1/2 hr before meal. ustekinumab (STELARA) 90 mg/mL injection Take one dose subcutaneously monthly albuterol HFA (PROVENTIL HFA, VENTOLIN HFA) 90 mcg/actuation inhaler Inhale 2 Puffs as instructed every 6 hours as needed for wheezing/shortness of breath. predniSONE (DELTASONE) 10 mg tablet Take 4 tablets by mouth once daily for 5 days. (Patient not taking: Reported on 02/15/2024) FAMILY HISTORY Problem Relation Age of Onset Depression Mother Bipolar disorder Mother No Known Problems Father other (CABG) Maternal Grandfather No Known Problems Paternal Grandmother No Known Problems Paternal Grandfather Social History Tobacco Use Smoking status: Every Day Current packs/day: 1.00 Average packs/day: 1 pack/day for 13.0 years (13.0 ttl pk-yrs) Types: Cigarettes Smokeless tobacco: Never Vaping Use Vaping status: Never Used Substance Use Topics Alcohol use: Yes Comment: occasional Drug use: Yes Types: Marijuana Comment: daily Review of Systems Constitutional: Negative for chills, fever and malaise/fatigue. HENT: Negative for congestion, ear discharge, ear pain, sinus pain and sore throat. Eyes: Negative for blurred vision, pain, discharge and redness. Respiratory: Negative for cough, hemoptysis, sputum production, shortness of breath, wheezing and stridor. Cardiovascular: Negative for chest pain. Gastrointestinal: Negative for abdominal pain, diarrhea, nausea and vomiting. Musculoskeletal: Positive for back pain. Negative for myalgias. Skin: Negative for itching and rash. Neurological: Negative for dizziness and headaches. Objective Physical Exam Constitutional: General: She is not in acute distress. Appearance: She is not toxic-appearing. HENT: Head: Normocephalic. Nose: Nose normal. Eyes: Pupils: Pupils are equal, round, and reactive to light. Cardiovascular: Rate and Rhythm: Normal rate. Pulmonary: Effort: Pulmonary effort is normal. No respiratory distress. Musculoskeletal: Cervical back: Normal range of motion. Back: Comments: Pain with palpation highlighted area. No spinal tenderness. No leg weakness. Negative straight leg test. No rashes. Skin: General: Skin is warm and dry. Neurological: General: No focal deficit present. Mental Status: She is alert. ASSESSMENT/PLAN: 1. Low back pain without sciatica, unspecified back pain laterality, unspecified chronicity - ICD9: 724.2, ICD10: M54.50 Diagnosed with lower back pain. Placed on prednisone burst. No NSAIDs. Patient was educated on supportive therapies. Patient will follow up with primary care provider as needed. Patient was instructed to immediately proceed to emergency room for any new, worsening, or symptoms lasting lo (more content not included)...[facility]10-[facility] History of Present illness Narrative* Carrillo Hudson APRN.K[employer]SEMBLER - 02/15/2024 1:00 PM EDT Images from the original note were not included. Subjective HPI Nontoxic-appearing female presents urgent care chief complaint lower back pain. Duration of symptoms 1 week. Associated symptoms lower back discomfort. History of back pain this is similar. Was lifting a mattress at work when she felt something pop in her back. Has had pain since. OTC medications little to no success. Denies any traumatic injuries. No night sweats fevers loss of bowel or bladder habit incontinence leg weakness or radiculopathy. Past medical history prescription medications allergies reviewed. Denies chance of . Is not breast-feeding. BP 132/80 Pulse 90 Temp 36.4 C (97.6 F) Resp 16 LMP 02/18/2023 SpO2 98% .Patient presents with: Back Pain: lower x today, lifting bed PAST MEDICAL HISTORY Diagnosis Date Anxiety and depression Bipolar affective (HCC) Crohn's disease (HCC) Diverticulosis Hemorrhoid PAST SURGICAL HISTORY Procedure Laterality Date DILATION & CURETTAGE LIGATE FALLOPIAN TUBE REMOVAL GALLBLADDER 10/26/2022 At [facility] WRIST LEFT OP SURGERY Right artery repair after cutting herself ALLERGIES Amoxicillin and Tramadol MEDICATIONS ondansetron orally disintegrating (ZOFRAN ODT) 4 mg disintegrating tablet dissolve 1 tablet ON TONGUE every 8 hours albuterol HFA (PROVENTIL HFA, VENTOLIN HFA) 90 mcg/actuation inhaler Inhale 2 Puffs as instructed every 6 hours as needed for wheezing/shortness of breath. lamoTRIgine (LAMICTAL) 200 mg tablet Take 1 tablet by mouth once daily. Take with additional 50 mg dose for a total of 250 mg every day lamoTRIgine (LAMICTAL) 25 mg tablet Take 2 tablets by mouth once daily. Take with 200 mg tablet. busPIRone (BUSPAR) 7.5 mg tablet Take 1 tablet by mouth two times a day. escitalopram oxalate (LEXAPRO) 20 mg tablet take 1 tablet by mouth once daily dicyclomine (BENTYL) 20 mg tablet Take 20 mg by mouth three times a day as needed. lisinopril (ZESTRIL) 30 mg tablet Take 1 tablet by mouth once daily. omeprazole (PRILOSEC) 20 mg capsule Take 1 capsule by mouth two times a day. 1/2 hr before meal. ustekinumab (STELARA) 90 mg/mL injection Take one dose subcutaneously monthly albuterol HFA (PROVENTIL HFA, VENTOLIN HFA) 90 mcg/actuation inhaler Inhale 2 Puffs as instructed every 6 hours as needed for wheezing/shortness of breath. predniSONE (DELTASONE) 10 mg tablet Take 4 tablets by mouth once daily for 5 days. (Patient not taking: Reported on 02/15/2024) FAMILY HISTORY Problem Relation Age of Onset Depression Mother Bipolar disorder Mother No Known Problems Father other (CABG) Maternal Grandfather No Known Problems Paternal Grandmother No Known Problems Paternal Grandfather Social History Tobacco Use Smoking status: Every Day Current packs/day: 1.00 Average packs/day: 1 pack/day for 13.0 years (13.0 ttl pk-yrs) Types: Cigarettes Smokeless tobacco: Never Vaping Use Vaping status: Never Used Substance Use Topics Alcohol use: Yes Comment: occasional Drug use: Yes Types: Marijuana Comment: daily Review of Systems Constitutional: Negative for chills, fever and malaise/fatigue. HENT: Negative for congestion, ear discharge, ear pain, sinus pain and sore throat. Eyes: Negative for blurred vision, pain, discharge and redness. Respiratory: Negative for cough, hemoptysis, sputum production, shortness of breath, wheezing and stridor. Cardiovascular: Negative for chest pain. Gastrointestinal: Negative for abdominal pain, diarrhea, nausea and vomiting. Musculoskeletal: Positive for back pain. Negative for myalgias. Skin: Negative for itching and rash. Neurological: Negative for dizziness and headaches. Objective Physical Exam Constitutional: General: She is not in acute distress. Appearance: She is not toxic-appearing. HENT: Head: Normocephalic. Nose: Nose normal. Eyes: Pupils: Pupils are equal, round, and reactive to light. Cardiovascular: Rate and Rhythm: Normal rate. Pulmonary: Effort: Pulmonary effort is normal. No respiratory distress. Musculoskeletal: Cervical back: Normal range of motion. Back: Comments: Pain with palpation highlighted area. No spinal tenderness. No leg weakness. Negative straight leg test. No rashes. Skin: General: Skin is warm and dry. Neurological: General: No focal deficit present. Mental Status: She is alert. ASSESSMENT/PLAN: 1. Low back pain without sciatica, unspecified back pain laterality, unspecified chronicity - ICD9:724.2, ICD10: M54.50 Diagnosed with lower back pain. Placed on prednisone burst. No NSAIDs. Patient was educated on supportive therapies. Patient [...] of care. This note was generated using [employer] software. It may contain errors in wording, punctuation, or spelling. Carrillo Hudson APRN.BLANCHE documented in this encounterUniversity [facility]als [facility]09-26-2024 History of Present illness Narrative* Michelle Powell APRN.CNP - 02/05/2024 8:30 AM EDT This patient did not show up for their scheduled appointment time documented in this encounterUniversity Hospitals [facility]09-12-2024 Telephone encounter Note * Telephone Encounter - Audrey Song MA - 01/22/2024 4:41 PM EDT Prescription Refill Information The patient has been identified by name and date of : Yes Caregiver verified no other encounters exist for this prescription request: Yes Caregiver confirmed with patient/requestor that no other refills are due, in the near future, with this provider at this time: No The last office visit in the department: 11/28/23 Does the patient have a future office visit with this provider/department: Yes Requested Prescriptions Pending Prescriptions Disp Refills ondansetron orally disintegrating (ZOFRAN ODT) 4 mg disintegrating tablet 30 tablet 0 Sig: dissolve 1 tablet ON TONGUE every 8 hours albuterol HFA (PROVENTIL HFA, VENTOLIN HFA) 90 mcg/actuation inhaler 8.5 g 1 Sig: Inhale 2 Puffs as instructed every 6 hours as needed for wheezing/shortness of breath. Audrey Song MA January 22, 2024 4:41 PM [facility]09-12-2024 Miscellaneous Notes* Telephone Encounter - Audrey Song MA - 01/22/2024 4:41 PM EDT Prescription Refill Information The patient has been identified by name and date of : Yes Caregiver verified no other encounters exist for this prescription request: Yes Caregiver confirmed with patient/requestor that no other refills are due, in the near future, with this provider at this time: No The last office visit in the department: 11/28/23 Does the patient have a future office visit with this provider/department: Yes Requested Prescriptions Pending Prescriptions Disp Refills ondansetron orally disintegrating (ZOFRAN ODT) 4 mg disintegrating tablet 30 tablet 0 Sig: dissolve 1 tablet ON TONGUE every 8 hours albuterol HFA (PROVENTIL HFA, VENTOLIN HFA) 90 mcg/actuation inhaler 8.5 g 1 Sig: Inhale 2 Puffs as instructed every 6 hours as needed for wheezing/shortness of breath. Audrey Song MA January 22, 2024 4:41 PM documented in this encounterUniversity Hospitals [facility]08-15-2024 Instructions* Patient Instructions* Michelle Powell APRN.CNP - 12/25/2023 8:24 AM EDT Sushil Bryan, It was good to talk with you today at our appointment. Below is a summary of the plan that we discussed during your appointment for your reference. If you have any questions or concerns prior to our next appointment, please do not hesitate to reach out to me via a Longaccesst message or by calling the office. If you are experiencing any worsening of your symptoms or unmanageable side effects of your medication regimen, please reach out to me so we can schedule a sooner follow up appointment and address these concerns. YOU SHOULD SEEK IMMEDIATE MEDICAL ATTENTION AT THE NEAREST EMERGENCY DEPARTMENT OR BY CALLING 911, IF ANY OF THE FOLLOWING OCCURS: - New or worsening thoughts of harming yourself (suicidal thoughts) or others (homicidal thoughts) - Not feeling safe at home or worrying about your ability to remain safe at home If you are having thoughts of harming yourself or others, then you can: - Call the National Suicide Hotline at 988 - Text 4HOPE to 988 All the Best, Michelle Powell ASSESSMENT DIRECTOR.[facility] [phone] [phone] PLAN AND FOLLOW UP: Start buspirone (Buspar) 7.5 mg twice daily to target anxiety symptoms Continue Lamictal 250 mg daily----refills sent -If you stop taking Lamictal at any time for more than 5 days, this schedule will need to be repeated from the beginning -Reviewed Lamictal titration & risk of severe rash. Instructed to call [facility] if this occurs. Continue Lexapro 20 mg daily----no refill needed at this time Continue Vistaril 25 mg PRN BID for anxiety --no refill needed at this time Psychotherapy: encouraged to begin- resources sent at previous visit Follow up in 5-6 weeks, on February 04 @ 8:30 am virtually, or reach out to schedule a sooner appointment if needed by calling [phone] Your prescriptions have been sent to your [facility] pharmacy on file Lamotrigine (Lamictal) Side Effects: Most common: Dizziness, headache, nausea, sedation, benign rash (7%). Serious but rare: Skin reactions (black box warning): Severe, potentially life- threatening skin rashes requiring hospitalization reported; incidence is higher in pediatric patients; risk increased byco-administration with valproic acid, higher than recommended starting doses, and exceeding recommended dose titration. The majority of cases occur in the first eight weeks, but isolated cases may occur beyond eight weeks or even in patients without risk factors. Discontinue at first sign of rash and do not reinitiate unless rash is clearly not drug-related; rare cases of Hunt-Jason syndrome, toxic epidermal necrolysis, and angioedema reported. Cardiac arrhythmias (slowed ventricular conduction and widening of the QRS) in susceptible patients. There is mixed evidence on whether or not lamotrigine (Lamictal) can interfere with control. Therefore, consider alternative methods of control on this medication. Note: If you stop taking Lamictal at any time for more than 5 days, this schedule will need to be repeated from the beginning. Please contact me VU if you purposefully, or accidentally miss a dose of this medication for 5 days or more, so we can re-titrate and prevent any unwanted side effects. Escitalopram (Lexapro) Side Effects: Most common: Nausea, sweating, insomnia, somnolence, sexual side effects, headache. Serious but rare: Hyponatremia, mainly in the elderly; gastrointestinal bleeding, especially when combined with NSAIDs such as ibuprofen Buspirone (Buspar) Side Effects: Most common: Dizziness, nervousness, nausea, headache, jitteriness. EDUCATION: - Educated on need for medication compliance and consistent follow-up - Educated on stress reduction/coping skills - Educated on importance of improving self-destructive behaviors and behavioral patterns. - Educated on diagnosis & treatment rationale INSTRUCTIONS: - Sleep hygiene recommendations: getting out of bed if not asleep within 30 min, turning clock around, regular sleep schedule, no TV/other activities in bedroom, regular exercise, no eating/alcohol in evening, reducing caffeine, relaxing before bed, light box therapy, chronotherapy and confining worries Risks and benefits of the medication, including any black box warnings, were discussed with the patient. Patient educated on risks of substance use in combination with medications and advised that any substance use along with medications may alter their effectiveness. For those experiencing a suicidal crisis: --call the National Suicide Prevention Lifeline at 988 (635.209.2185) --text the Crisis Text Line (text HOME to 333232) --call 431 and let them know you are having a mental health crisis or go to your nearest Emergency Room for stabilization. --You can also call Mobile Crisis at [phone]. -- You may call the department appointment line at [phone] to schedule your appointment. -- Please call the office at [phone] or send me a message in [employer] with any questions or concerns between appointments. Please note: All scheduled appointments that are a no-call/no-show are subject to a $75 charge. Please provide 24 hour advanced notice for appointment cancellations or changes Contact Information for Files/Faxes Needing Sent to Me: Attn: Michelle Powell APRN-KITCHEN FOOD ASSEMBLER [address] [place] [id number] Phone #: [phone] Appt#: [phone] Fax#: [phone] documented in this encounterUniversity Hospitals [facility]08-15-2024 History of Present illness Narrative* Michelle Powell APRN.CNP - 12/25/2023 8:00 AM EDT Images from the original note were not included. FOLLOW UP - PSYCHIATRIC PROGRESS NOTE Patient: Irvin Tan Age: [age] year old Race: Black Date: 12/25/23 Visit Type:Virtual Visit utilizing two-way audio and video for at least a portion of the visit. Consent for virtual visit obtained verbally. Confidentiality limitations with virtual visits reviewed with the patient and guardian, if present, who have accepted the risk verbally prior to proceeding with encounter. I have communicated my name and active licensure. The patient's identity and physical location were verified at the time of this visit. Either the patient or their legal farm loan representative has been informed of the risks and benefits of -- and alternatives to -- treatment through a remote evaluation and consents to proceed with the evaluation remotely. VIRTUAL VISIT IDENTIFYING INFORMATION: Patient was first identified by full name & date of . This is a virtual visit. It required patient/provider interaction for medical decision-making as documented below. This visit was performed via Longaccesst video.&/or phone conversation, in the event that there aretechnical difficulties or patient does not have access to tele- health technology. I have communicated my name and active licensure. The patient's identity and physical location wereverified at the time of this visit. Either the patient or their legal farm loan representative has been informed of the risks and benefits of -- and alternatives to -- treatment through a remote evaluation andconsents to proceed with the evaluation remotely. Some elements were copied from previous providers note(s) which are italicized to show that it was copied. Some elements have been updated where appropriate and reflect current decision making and information from today December 23, 2023 and are noted in BOLD and BLUE CC: Presenting today for follow up on psychiatric medication management as a bridge visit from Melissa MUSA HPI: Treatment Plan from Last Visit on 06/24/23: 1. Increase Lamictal to 250 mg daily -Take 225 mg daily for 2 weeks, THEN take 250 mg everyday thereafter -If you stop taking Lamictal at any time for more than 5 days, this schedule will need to be repeated from the beginning -Reviewed Lamictal titration & risk of severe rash. Instructed to call VU if this occurs. 2. Continue Lexapro 20 mg daily 3. Continue Vistaril 25 mg PRN BID for anxiety 4. Psychotherapy: encouraged to begin- resources sent at previous visit DIAGNOSIS: PRIMARY: Mood Disorder Bipolar II Disorder Secondary : Anxiety Disorder Generalized Anxiety Disorder Other : PTSD Irvin Tan is a 38 year old Female being seen by this provider for a bridge visit. Since last visit, things have been good. Working a lot. Finds that the change with increasing lamotrigine (Lamictal) has been great. 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 Denies suicidal ideation, plan, or intent. Denies homicidal ideation, plan, or intent. Denies delusions, hallucinations, or manic/hypomanic behaviors. Reports nicotine use- 1 ppd. Reports marijuana use almost daily. Denies other substance use/abuse. Current Psychiatric Medication Regimen: Lamotrigine (Lamictal) 250 mg Lexapro 20 mg Hydroxyzine (Vistaril) 25 mg as needed twice daily for anxiety Interval Progress: Slightly improved PATIENT DATA: Generalized Anxiety Disorder Scale (FREDY-7) 12/26/2022 02/17/2023 06/24/2023 FREDY - 7 SCORES Score 8 18 10 (0-4) minimal anxiety, (5-9) mild anxiety, (10-14) moderate anxiety, (15-21) severe anxiety Patient Health Questionnaire (PHQ-9) 12/26/2022 02/17/2023 06/24/2023 PHQ-9 Score 24 17 14 (0-4) minimal depression, (5-9) mild depression, (10-14) moderate depression, (15-19) moderately severe depression, (20-27) severe depression PAST MEDICAL HISTORY No date: Anxiety and depression No date: Bipolar affective (HCC) No date: Crohn's disease (HCC) No date: Diverticulosis No date: Hemorrhoid PAST SURGICAL HISTORY No date: DILATION & CURETTAGE No date: LIGATE FALLOPIAN TUBE 10/26/2022: REMOVAL GALLBLADDER Comment: At [facility] No date: WRIST LEFT OP SURGERY; Right Comment: artery repair after cutting herself ALLERGIES Allergen Reactions Amoxicillin Rash Tramadol Rash Current Outpatient Medications Medication Sig lamoTRIgine (LAMICTAL) 200 mg tablet Take 1 tablet by mouth once daily. Take with additional 50 mg dose for a total of 250 mg every day. Schedule an appointment for any additional refills. dicyclomine (BENTYL) 20 mg tablet Take 20 mg by mouth three times a day as needed. lisinopril (ZESTRIL) 30 mg tablet Take 1 tablet by mouth once daily. albuterol HFA (PROVENTIL HFA, VENTOLIN HFA) 90 mcg/actuation inhaler Inhale 2 Puffs as instructed every 6 hours as needed for wheezing/shortness of breath. omeprazole (PRILOSEC) 20 mg capsule Take 1 capsule by mouth two times a day. 1/2 hr before meal. lamoTRIgine (LAMICTAL) 25 mg tablet Take 2 tablets by mouth once daily. Take with 200 mg tablet. escitalopram oxalate (LEXAPRO) 20 mg tablet Take 1 tablet by mouth once daily. ondansetron orally disintegrating (ZOFRAN ODT) 4 mg disintegrating tablet dissolve 1 tablet ON TONGUE every 8 hours ustekinumab (STELARA) 90 mg/mL injection Take one dose subcutaneously monthly albuterol HFA (PROVENTIL HFA, VENTOLIN HFA) 90 mcg/actuation inhaler Inhale 2 Puffs as instructed every 6 hours as needed for wheezing/shortness of breath. No current facility-administered medications for this visit. Labwork: CBC and Differential: WBC Date Value Ref Range Status 06/23/2023 7.34 3.70 - 11.00 k/uL Final RBC Date Value Ref Range Status 06/23/2023 4.34 3.90 - 5.20 m/uL Final Hematocrit Date Value Ref Range Status 06/23/2023 40.0 36.0 - 46.0 % Final MCV Date Value Ref Range Status 06/23/2023 92.2 80.0 - 100.0 fL Final MCH Date Value Ref Range Status 06/23/2023 30.6 26.0 - 34.0 pg Final MCHC Date Value Ref Range Status 06/23/2023 33.3 30.5 - 36.0 g/dL Final Platelet Count Date Value Ref Range Status 06/23/2023 389 150 - 400 k/uL Final MPV Date Value Ref Range Status 06/23/2023 9.6 9.0 - 12.7 fL Final Comprehensive Metabolic Panel: BUN Date Value Ref Range Status 06/23/2023 8 7 - 21 mg/dL Final Creatinine Date Value Ref Range Status 06/23/2023 0.87 0.58 - 0.96 mg/dL Final Sodium Date Value Ref Range Status 06/23/2023 138 136 - 144 mmol/L Final Potassium Date Value Ref Range Status 06/23/2023 3.8 3.7 - 5.1 mmol/L Final CO2 Date Value Ref Range Status 06/23/2023 23 22 - 30 mmol/L Final Albumin Date Value Ref Range Status 06/23/2023 4.4 3.9 - 4.9 g/dL Final ALT Date Value Ref Range Status 06/23/2023 22 7 - 38 U/L Final AST Date Value Ref Range Status 06/23/2023 19 13 - 35 U/L Final Gamma-Glutamyltransferase (GGT), Serum: No results found for: GGT Vitamin B12: No components found for: [id number] Vitamin D, Total: No results found for: VITD Thyroid Stimulating Hormone (TSH): TSH Date Value Ref Range Status 01/28/2022 0.888 0.270 - 4.200 mIU/L Final Comment: If the patient is , TSH reference range varies by gestational period: First Trimester (weeks 9-12): 0.180-2.990 mIU/L Second Trimester: 0.110-3.980 mIU/L Third Trimester: 0.480-4.710 mIU/L Issac Casas et al. A Practical Approach for the Verifications and Determination of Site- and Trimester-Specific Reference Intervals for Thyroid Function tests in . Thyroid, 2019:29:3:412-420.Cain Alexis, et al. 2017 Guidelines of the [place] [employer] for the Diagnosis and Management of Thyroid Disease during and the . Thyroid, 2017:27:3:315-389. Hemoglobin A1C: No results found for: HGBA1C Lipid Panel: Cholesterol, Total Date Value Ref Range Status 06/23/2023 252 (H) <200 mg/dL Final Comment: <200 mg/dL, Desirable 200-239 mg/dL, Borderline high >239 mg/dL, High HDL Cholesterol Date Value Ref Range Status 06/23/2023 34 (L) >39 mg/dL Final Comment: 40-59 mg/dL, Acceptable >59 mg/dL, High: Negative risk factor for coronary heart disease <40 mg/dL, Low: Positive risk factor for coronary heart disease LDL Cholesterol Date Value Ref Range Status 06/23/2023 180 (H) <100 mg/dL Final Comment: <100 mg/dL, Optimal 100-129 mg/dL, Near optimal/above optimal 130-159 mg/dL, Borderline high 160-189 mg/dL, High >189 mg/dL, Very high Secondary prevention optimal LDL Cholesterol levels are recommended to be < 70 mg/dL VITAL SIGNS: There were no vitals filed for this visit. Last 3 Encounter BP Readings: Date: BP: 11/28/2023 124/82 11/05/2023 122/68 09/08/2023 110/82 ROS: GENERAL: Negative for malaise, significant weight loss and fever All other systems negative. MENTAL STATUS EXAM: CONSTITUTIONAL: Appropriately dressed, Well developed, Well nourished ORIENTATION: Person, Place, Time and Situation MEMORY: Recent intact, Remote intact, Immediate intact CONCENTRATION: Variable MOOD: depressed AFFECT: Full and appropriate to topic SPEECH : Clear & distinct LANGUAGE : Normal ASSOCIATIONS: Intact THOUGHT PROCESS : Logical, Coherent, and Rational PROGRESSION : There was no evidence of disturbance in thought perception or progression. FUND OF KNOWLEDGE : Appropriate and Adequate SUICIDE: Denies suicidal thoughts, plan, or intent. HOMICIDE: Denies homicidal thoughts, plan, or intent. DATA REVIEWED: Electronic medical record and Psychiatric Scales PDMP website checked and validated. All prescriptions have been APPROPRIATELY filled. No suspiciousactivity was identified. 12/25/23 by Michelle Powell APRN.KITCHEN FOOD ASSEMBLER DIAGNOSIS: PRIMARY: Mood Disorder Bipolar II Disorder Secondary : Anxiety Disorder Generalized Anxiety Disorder Other : PTSD GAF: -60-51 Moderate symptoms or moderate difficulty in social, occupational or school functioning. TREATMENT PLAN FROM TODAY'S VISIT-- 12/25/23 Start buspirone (Buspar) 7.5 mg twice daily to target anxiety symptoms Continue Lamictal 250 mg daily----refills sent -If you stop taking Lamictal at any time for more than 5 days, this schedule will need to be repeated from the beginning -Reviewed Lamictal titration & risk of severe rash. Instructed to call [facility] if this occurs. Continue Lexapro 20 mg daily----no refill needed at this time Continue Vistaril 25 mg PRN BID for anxiety --no refill needed at this time Psychotherapy: encouraged to begin- resources sent at previous visit Follow up in 5-6 weeks, on February 04 @ 8:30 am virtually, or reach out to schedule a sooner appointment if needed by calling [phone] EDUCATION: - Educated on need for medication compliance and consistent follow-up - Educated on stress reduction/coping skills - Educated on importance of improving self-destructive behaviors and behavioral patterns. - Educated on diagnosis & treatment rationale INSTRUCTIONS: - Sleep hygiene recommendations: getting out of bed if not asleep within 30 min, turning clock around, regular sleep schedule, no TV/other activities in bedroom, regular exercise, no eating/alcohol in evening, reducing caffeine, relaxing before bed, light box therapy, chronotherapy and confining worries Risks and benefits of the medication, including any black box warnings, were discussed with the patient. Patient educated on risks of substance use in combination with medications and advised that any substance use along with medications may alter their effectiveness. For those experiencing a suicidal crisis: --call the National Suicide Prevention Lifeline at 013 (185-173-8781) --text the Crisis Text Line (text HOME to 145259) --call 364 and let them know you are having a mental health crisis or go to your nearest Emergency Room for stabilization. --You can also call [employer] at 263-286-8597. MEDICATION CHANGES: See above treatment plan for changes Risks and benefits of the medication, including any black box warnings, were discussed with the patient. Patient educated on risks of substance use in combination with medications and advised that any substance use along with medications may alter their effectiveness. I spent a total of 21 minutes on the date of the service which included preparing to see the patient, [id number] patient care, completing clinical documentation, and counseling and educating the patient/family/caregiver, ordering medications/labs. ADD ON PSYCHOTHERAPY CODE : No SIGNATURE: Michelle Powell APRN.CNP PATIENT NAME: Irvin Tan DATE: 12/25/23 TIME: 8:04 AM documented in this encounterUniversity Hospitals [facility]08-15-2024 NoteHNO ID: [id number] Author: MICHELLE POWELL APRN.CNP Service: ? Author Type: Nurse Practitioner Type: Progress Notes Filed: 12/25/2023 08:25 Note Text: FOLLOW UP - PSYCHIATRIC PROGRESS NOTE Patient: Irvin Tan Age: [age] year old Race: Black Date: 12/25/23 Visit Type:Virtual Visit utilizing two-way audio and video for at least a portion of the visit. Consent for virtual visit obtained verbally. Confidentiality limitations with virtual visits reviewed with the patient and guardian, if present, who have accepted the risk verbally prior to proceeding with encounter. I have communicated my name and active licensure. The patient's identity and physical location were verified at the time of this visit. Either the patient or their legal farm loan representative has been informed of the risks and benefits of -- and alternatives to -- treatment through a remote evaluation and consents to proceed with the evaluation remotely. VIRTUAL VISIT IDENTIFYING INFORMATION: Patient was first identified by full name AND date of . This is a virtual visit. It required patient/provider interaction for medical decision-making as documented below. This visit was performed via [employer] video.AND/or phone conversation, in the event that there are technical difficulties or patient does not have access to tele-health technology. I have communicated my name and active licensure. The patient's identity and physical location were verified at the time of this visit. Either the patient or their legal farm loan representative has been informed of the risks and benefits of -- and alternatives to -- treatment through a remote evaluation and consents to proceed with the evaluation remotely. Some elements were copied from previous providers note(s) which are italicized to show that it was copied. Some elements have been updated where appropriate and reflect current decision making and information from today December 23, 2023 and are noted in BOLD and BLUE CC: Presenting today for follow up on psychiatric medication management as a bridge visit from [facility] HPI: Treatment Plan from Last Visit on 06/24/23: 1. Increase Lamictal to 250 mg daily -Take 225 mg daily for 2 weeks, THEN take 250 mg everyday thereafter -If you stop taking Lamictal at any time for more than 5 days, this schedule will need to be repeated from the beginning -Reviewed Lamictal titration AND risk of severe rash. Instructed to call [facility] if this occurs. 2. Continue Lexapro 20 mg daily 3. Continue Vistaril 25 mg PRN BID for anxiety 4. Psychotherapy: encouraged to begin- resources sent at previous visit DIAGNOSIS: PRIMARY: Mood Disorder Bipolar II Disorder Secondary : Anxiety Disorder Generalized Anxiety Disorder Other : PTSD Irvin Tan is a 38 year old Female being seen by this provider for a bridge visit. Since last visit, things have been good. Working a lot. Finds that the change with increasing lamotrigine (Lamictal) has been great. 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 Denies suicidal ideation, plan, or intent. Denies homicidal ideation, plan, or intent. Denies delusions, hallucinations, or manic/hypomanic behaviors. Reports nicotine use- 1 ppd. Reports marijuana use almost daily. Denies other substance use/abuse. Current Psychiatric Medication Regimen: Lamotrigine (Lamictal) 250 mg Lexapro 20 mg Hydroxyzine (Vistaril) 25 mg as needed twice daily for anxiety Interval Progress: Slightly improved PATIENT DATA: Generalized Anxiety Disorder Scale (FREDY-7) 12/26/2022 02/17/2023 06/24/2023 FREDY - 7 SCORES Score 8 18 10 (0-4) minimal anxiety, (5-9) mild anxiety, (10-14) moderate anxiety, (15-21) severe anxiety Patient Health Questionnaire (PHQ-9) 12/26/2022 02/17/2023 06/24/2023 PHQ-9 Score 24 17 14 (0-4) minimal depression, (5-9) mild depression, (10-14) moderate depression, (15-19) moderately severe depression, (20-27) severe depression PAST MEDICAL HISTORY No date: Anxiety and depression No date: Bipolar affective (HCC) No date: Crohn's disease (HCC) No date: Diverticulosis No date: Hemorrhoid PAST SURGICAL HISTORY No date: DILATION AND CURETTAGE No date: LIGATE FALLOPIAN TUBE 10/26/2022: REMOVAL GALLBLADDER Comment: At [facility] No date: WRIST LEFT OP (more content not included)...[facility] 12-04-2023 Telephone encounter Note* Telephone Encounter - Tawanda Villafuerte LPN - 12/04/2023 9:32 AM EDT Patient notified of results, verbalizes understanding of instructions. And schedule changed. Tawanda Villafuerte LPN [facility]07-25-2024 Miscellaneous Notes* Telephone Encounter - Tawanda Villafuerte LPN - 12/04/2023 9:32 AM EDT Patient notified of results, verbalizes understanding of instructions. And schedule changed. Tawanda Villafuerte LPN * Telephone Encounter - Sarmad Wren APRN.CNP - 12/04/2023 8:26 AM EDT Please let the patient know that her ultrasound of the abdomen shows a likely lipoma or fatty benign collection in the area of concern. At this time, the best course of action would be to monitor as needed. If the area were to get larger, we could refer to general surgery and re-image. I would recommend that she not manipulate the area as sometimes this causes it to increase in size. Also, I had her following up in 6 months with her PCP team in May. The schedulers put her back with me. Can we get her to Michelle or Dr. Ang schedule at the same time/day? Sarmad Wren APRN.CNP documented in this encounterUniversity Hospitals Tripoint [facility]07-25-2024 Telephone encounter Note * Telephone Encounter - Sarmad Wren APRN.CNP - 12/04/2023 8:26 AM EDT Please let the patient know that her ultrasound of the abdomen shows a likely lipoma or fatty benign collection in the area of concern. At this time, the best course of action would be to monitor as needed. If the area were to get larger, we could refer to general surgery and re-image. I would recommend that she not manipulate the area as sometimes this causes it to increase in size. Also, I had her following up in 6 months with her PCP team in May. The schedulers put her back with me. Can we get her to Michelle or Dr. Ang schedule at the same time/day? Sarmad Wren APRN.CNP [facility]07-23-2024 History of Present illness Narrative* Zaina Hood RDMS - 12/02/2023 11:30 AM EDT Radiology Service Progress Note PATIENT NAME: Irvin Tan DATE OF SERVICE: December 02, 2023 TIME: 11:32 AM PATIENT IDENTITY VERIFICATION COMPLETED USING TWO (2) IDENTIFIERS: Name and Date of confirmedby patient verbally. FALL SCREENING: Has the patient had 2 falls in the last year or 1 fall with injury or currently using an Ambulatory Assistive Device (Walker, Cane, Wheelchair, Crutches, etc.)? No PATIENT GENDER DATA: Female. status: : No status: NO. PATIENT RELEVANT IMPLANT DATA REVIEWED: Not Applicable PATIENT PRESENTS WITH AN IMPLANTABLE OR ATTACHED COLLECTIONS CURATOR: No RADIOLOGY DEPARTMENT: Ultrasound PERIPHERAL IV DATA: Not applicable SIGNED BY: Zaina Hood RDMS December 02, 2023 11:32 AM documented in this encounterUniversity Hospitals Tri[facility] Center07-23-2024 NoteHNO ID: [id number] Author: ZAINA HOOD RDMS Service: ? Author Type: Career Law Clerk Type: Progress Notes Filed: 12/02/2023 11:32 Note Text: Radiology Service Progress Note PATIENT NAME: Irvin Tan DATE OF SERVICE: December 02, 2023 TIME: 11:32 AM PATIENT IDENTITY VERIFICATION COMPLETED USING TWO (2) IDENTIFIERS: Name and Date of confirmed by patient verbally. FALL SCREENING: Has the patient had 2 falls in the last year or 1 fall with injury or currently using an Ambulatory Assistive Device (Walker, Cane, Wheelchair, Crutches, etc.)? No PATIENT GENDER DATA: Female. status: : No status: NO. PATIENT RELEVANT IMPLANT DATA REVIEWED: Not Applicable PATIENT PRESENTS WITH AN IMPLANTABLE OR ATTACHED COLLECTIONS CURATOR: No RADIOLOGY DEPARTMENT: Ultrasound PERIPHERAL IV DATA: Not applicable SIGNED BY: Zaina Hood RDMS December 02, 2023 11:32 [facility]07-19-2024 Instructions* Patient Instructions* Sarmad Wren APRN.CNP - 11/28/2023 8:21 AM EDT Tdap given today, you are good for 10 years Get labs Start Lisinopril 30 mg once daily 4. Schedule with [facility] 5. Get ultrasound of abdomen. Sarmad Wren APRN.CNP For diet, please focus on: - More lean meats like chicken, fish, turkey rather than red meats - Less carbs and when having carbs, more complex carbs such as beans, wheat or multigrain and brownrice - more vegetables - health fats such as olive oil, nuts, avocados For exercise: Please try and aim for a goal of 30 min a day most days of the week with a goal of 150min/wk. Briskwalking is plenty, if you can increase it later, then that is good, but if you are going from little or no exercise to this new routine, I do not want you to go too extreme. If you already exercise, I encourage you to try and do a little more than what you have been doing. Sarmad Wren APRN.BLANCHE documented in this encounterUniversity Hospitals [facility] Center07-19-2024 History of Present illness Narrative* Sarmad Wren APRN.CNP - 11/28/2023 8:00 AM EDT Chief Complaint Patient presents with: Physical HPI Irvin Tan is a 38 year old female who presents here today for physical exam. Patient of Dr. Corral.. Following with [facility] for bipolar disorder for biploar, depression, and FREDY. Taking medications as prescribed. HTN: Patient is compliant with meds Yes Monitors bp at home: infrequently. Usually normal Denies side effects: Yes. Chest pain: No. Dyspnea: No. Edema: No. Palpitations: No. Syncope: No. Headache: No. Dizziness: No. History of asthma: Using albuterol more frequently with humid air. Not usually this much when weather is more mild. Following with Dr. Ojeda for Crohns diease. Has a flare up, went to the ER last night. Had to calloff today. Has follow up with them. Prescribed Sterela, omeprazole and bentyl No particular diet followed except for watching things that caused worsening Crohns. No dedicated exercise plan but stays active at work. Okay with Tdap today. Declines COVID. Due for cervical cancer screening. Previously followed with Dr. Mao with [facility]. Area on the right side of her abdomen, present for about 3-4 months. Tender when touched. Past medical history, appointments, medications, allergies reviewed. Previous Medical History PAST MEDICAL HISTORY Diagnosis Date Anxiety and depression Bipolar affective (HCC) Crohn's disease (HCC) Diverticulosis Hemorrhoid Previous Surgical History PAST SURGICAL HISTORY Procedure Laterality Date DILATION & CURETTAGE LIGATE FALLOPIAN TUBE REMOVAL GALLBLADDER 10/26/2022 At [facility] WRIST LEFT OP SURGERY Right artery repair after cutting herself Family History FAMILY HISTORY Problem Relation Age of Onset Depression Mother Bipolar disorder Mother No Known Problems Father other (CABG) Maternal Grandfather No Known Problems Paternal Grandmother No Known Problems Paternal Grandfather Patient Allergies ALLERGIES Allergen Reactions Amoxicillin Rash Tramadol Rash Current Medications Current Outpatient Medications on File Prior to Visit Medication Sig lisinopril (ZESTRIL) 20 mg tablet Take 1 tablet by mouth once daily. lisinopril (ZESTRIL) 10 mg tablet Take 1 tablet by mouth once daily. lamoTRIgine (LAMICTAL) 200 mg tablet Take 1 tablet by mouth once daily. albuterol HFA (PROVENTIL HFA, VENTOLIN HFA) 90 mcg/actuation inhaler Inhale 2 Puffs as instructed every 6 hours as needed for wheezing/shortness of breath. omeprazole (PRILOSEC) 20 mg capsule Take 1 capsule by mouth two times a day. 1/2 hr before meal. lamoTRIgine (LAMICTAL) 25 mg tablet Take 2 tablets by mouth once daily. Take with 200 mg tablet. hydrOXYzine pamoate (VISTARIL) 25 mg capsule Take 1 capsule by mouth two times a day as needed for anxiety. escitalopram oxalate (LEXAPRO) 20 mg tablet Take 1 tablet by mouth once daily. ondansetron orally disintegrating (ZOFRAN ODT) 4 mg disintegrating tablet dissolve 1 tablet ON TONGUE every 8 hours ustekinumab (STELARA) 90 mg/mL injection Take one dose subcutaneously monthly albuterol HFA (PROVENTIL HFA, VENTOLIN HFA) 90 mcg/actuation inhaler Inhale 2 Puffs as instructed every 6 hours as needed for wheezing/shortness of breath. No current facility-administered medications on file prior to visit. Social History Social History Tobacco Use Smoking status: Every Day Packs/day: 1.00 Years: 13.00 Additional pack years: 0.00 Total pack years: 13.00 Types: Cigarettes Smokeless tobacco: Never Vaping Use Vaping Use: Never used Substance Use Topics Alcohol use: Yes Comment: occasional Drug use: Yes Types: Marijuana Comment: daily REVIEW OF SYSTEMS: as above Reviewed relevant PMHx, PSHx, Social Hx, current medications and allergies. EXAM: BP 124/82 Pulse 78 Resp 16 Ht 162 cm (5' 3.78) Wt 83 kg (183 lb) LMP 02/18/2023 SpO2 99% BMI 31.63 kg/m General Appearance: Well appearing, alert, in no acute distress, well-hydrated, well nourished. andOverweight. Head: Normocephalic, no masses, lesions, tenderness or abnormalities. Eyes: Anicteric sclera. Pupils are equally round and reactive to light. Extraocular movements are intact. . Ears: External ears normal, canals clear. Nose/Sinuses: Nares normal, septum midline, mucosa normal, no drainage or sinus tenderness. Oropharynx: Lips, mucosa, and tongue normal, teeth and gums normal, oropharynx normal. Neck: Supple, no adenopathy; thyroid symmetric, normal size Lungs: Lungs clear to auscultation. No wheezing, rhonchi, rales.. Heart: RRR without murmur, gallop, or rubs. No ectopy. Abdomen: Abdomen soft, non-tender. Bowel sounds normal. Right side of abdomen, lateral side has a tender nodular mass, about the size a marble, feels mobile, deep Extremities: No deformities, edema, skin discoloration Neurologic: Gait normal. Reflexes normal and symmetric. Sensation grossly intact.. Lymph Nodes: No cervical lymphadenopathy and No supraclavicular lymphadenopathy. Health Maintenance List DTaP,Tdap,Td Vaccine(1 - Tdap) Never done Hepatitis B Vaccine(1 of 3 - 19+ 3-dose series) Never done Shingrix Vaccine(1 of 2) Never done Pneumococcal Vaccine(2 of 2 - PCV) due on 08/01/2021 Cervical Cancer Screening due on 09/19/2021 BP Controlled (<130/80) due on 02/11/2023 Covid-19 Vaccine(1) due on 11/27/2024 Influenza Vaccine(1) due on 01/11/2024 Annual PCP Team Chronic Disease Visit due on 11/27/2024 Behavioral Health Screening Completed Hepatitis C Screening Completed HIV Screening Completed HPV Vaccine Aged Out ASSESSMENT/PLAN: 1. Wellness examination - ICD9: V70.0, ICD10: Z00.00 (primary diagnosis) - Counseled on healthy diet and regular exercise - Patient was counseled [id number] by myself (the billing provider) for the following immunizations and vaccine components, including side effects: TdaP. Patient consents for immunization and understands risks and benefits. A VIS sheet on each immunization was given to the patient. - Follow up for annual exam in one year 2. Hyperlipidemia, mixed - ICD9: 272.2, ICD10: E78.2 - Control undetermined, due for labs - Counseled on healthy diet and regular exercise - LIPID PANEL BASIC 3. Hypertension, essential - ICD9: 401.9, ICD10: I10 - Controlled - Continue current medications - Recommend home blood pressure monitoring, to bring results to next visit - Encouraged sodium restriction, DASH or Mediterranean diet - Recommend regular aerobic exercise - LISINOPRIL 30 MG TABLET - COMPREHENSIVE METABOLIC PANEL 4. Crohn's disease with complication, unspecified gastrointestinal tract location (HCC) - ICD9: 555.9, ICD10: K50.919 - Return to work note given, encouraged patient to return to Dr. Ojeda for follow up 5. Bipolar 2 disorder (HCC) - ICD9: 296.89, ICD10: F31.81 Continue following with psych 6. FREDY (generalized anxiety disorder) - ICD9: 300.02, ICD10: F41.1 - Continue following with psych 7. Screening for cervical cancer - ICD9: V76.2, ICD10: Z12.4 - CONSULT TO WOMEN'S HEALTH 8. Encounter for immunization - ICD9: V03.89, ICD10: Z23 - TDAP VACCINE, AGE 7+ YR (ADACEL, BOOSTRIX) 9. Cystic lesion of abdominal viscera - ICD9: 568.89, ICD10: K66.8 Likely a lipoma, get ultrasound to start. - US ABDOMEN LTD Sarmad Wren APRN.CNP RTO in 6 months, sooner if needed. This note was partly generated using [employer] voice recognition dictation and may contain some misspelled or inaccurate words missed on review. documented in this encounterUniversity Hospitals Tripoint [facility] Center07-19-2024 NoteHNO ID: [id number] Author: SARMAD WREN APRN.[facility] Service: ? Author Type: Nurse Practitioner Type: Progress Notes Filed: 11/28/2023 08:43 Note Text: Chief Complaint Patient presents with: Physical HPI Irvin Tan is a 38 year old female who presents here today for physical exam. Patient of Dr. Corral.. Following with [facility] for bipolar disorder for biploar, depression, and FREDY. Taking medications as prescribed. HTN: Patient is compliant with meds Yes Monitors bp at home: infrequently. Usually normal Denies side effects: Yes. Chest pain: No. Dyspnea: No. Edema: No. Palpitations: No. Syncope: No. Headache: No. Dizziness: No. History of asthma: Using albuterol more frequently with humid air. Not usually this much when weather is more mild. Following with Dr. Ojeda for Crohns diease. Has a flare up, went to the ER last night. Had to call off today. Has follow up with them. Prescribed Sterela, omeprazole and bentyl No particular diet followed except for watching things that caused worsening Crohns. No dedicated exercise plan but stays active at work. Okay with Tdap today. Declines COVID. Due for cervical cancer screening. Previously followed with Dr. Mao with [facility]. Area on the right side of her abdomen, present for about 3-4 months. Tender when touched. Past medical history, appointments, medications, allergies reviewed. Previous Medical History PAST MEDICAL HISTORY Diagnosis Date Anxiety and depression Bipolar affective (HCC) Crohn's disease (HCC) Diverticulosis Hemorrhoid Previous Surgical History PAST SURGICAL HISTORY Procedure Laterality Date DILATION AND CURETTAGE LIGATE FALLOPIAN TUBE REMOVAL GALLBLADDER 10/26/2022 At [facility] WRIST LEFT OP SURGERY Right artery repair after cutting herself Family History FAMILY HISTORY Problem Relation Age of Onset Depression Mother Bipolar disorder Mother No Known Problems Father other (CABG) Maternal Grandfather No Known Problems Paternal Grandmother No Known Problems Paternal Grandfather Patient Allergies ALLERGIES Allergen Reactions Amoxicillin Rash Tramadol Rash Current Medications Current Outpatient Medications on File Prior to Visit Medication Sig lisinopril (ZESTRIL) 20 mg tablet Take 1 tablet by mouth once daily. lisinopril (ZESTRIL) 10 mg tablet Take 1 tablet by mouth once daily. lamoTRIgine (LAMICTAL) 200 mg tablet Take 1 tablet by mouth once daily. albuterol HFA (PROVENTIL HFA, VENTOLIN HFA) 90 mcg/actuation inhaler Inhale 2 Puffs as instructed every 6 hours as needed for wheezing/shortness of breath. omeprazole (PRILOSEC) 20 mg capsule Take 1 capsule by mouth two times a day. 1/2 hr before meal. lamoTRIgine (LAMICTAL) 25 mg tablet Take 2 tablets by mouth once daily. Take with 200 mg tablet. hydrOXYzine pamoate (VISTARIL) 25 mg capsule Take 1 capsule by mouth two times a day as needed for anxiety. escitalopram oxalate (LEXAPRO) 20 mg tablet Take 1 tablet by mouth once daily. ondansetron orally disintegrating (ZOFRAN ODT) 4 mg disintegrating tablet dissolve 1 tablet ON TONGUE every 8 hours ustekinumab (STELARA) 90 mg/mL injection Take one dose subcutaneously monthly albuterol HFA (PROVENTIL HFA, VENTOLIN HFA) 90 mcg/actuation inhaler Inhale 2 Puffs as instructed every 6 hours as needed for wheezing/shortness of breath. No current facility-administered medications on file prior to visit. Social History Social History Tobacco Use Smoking status: Every Day Packs/day: 1.00 Years: 13.00 Additional pack years: 0.00 Total pack years: 13.00 Types: Cigarettes Smokeless tobacco: Never Vaping Use Vaping Use: Never used Substance Use Topics Alcohol use: Yes Comment: occasional Drug use: Yes Types: Marijuana Comment: daily REVIEW OF SYSTEMS: as above Reviewed relevant PMHx, PSHx, Social Hx, current medications and allergies. EXAM: BP 124/82 Pulse 78 Resp 16 Ht 162 cm (5' 3.78) Wt 83 kg (183 lb) LMP 02/18/2023 SpO2 99% BMI 31.63 kg/m? General Appearance: Well appearing, alert, in no acute distress, well-hydrated, well nourished. and Overweight. Head: Normocephalic, no masses, lesions, tenderness or abnormalities. Eyes: Anicteric sclera. Pupils are equally round and reactive to light. Extraocular movements are intact. . Ears: External ears normal, canals clear. Nose/Sinuses: Nares normal, septum midline, mucosa normal, no drainage or sinus tenderness. Oropharynx: Lips, mucosa, and tongue normal, teeth and gums normal, oropharynx normal. Neck: Supple, no adenopathy; thyroid symmetric, normal size Lungs: Lungs clear to auscultation. No wheezing, rhonchi, rales.. Heart: RRR without murmur, gallop, or rubs. No ectopy. Abdomen: Abdomen soft, non-tender. Bowel sounds normal. Right side of abdomen, lateral side has a tender nodular mass, about the size a marble, feels mobile, deep Extremities: N (more content not included)...[facility] 11-25-2023 Telephone encounter Note* Telephone Encounter - Luna Bauer LPN - 11/25/2023 10:11 AM EDT Patient is schedule the soonest with Sarmad Wren NP at 8 am on 11/28/2023 Patient is needing refill to get her to appointment. Please review and advise. The last office visit in the department: 06/17/2022 Requested Prescriptions Pending Prescriptions Disp Refills lisinopril (ZESTRIL) 20 mg tablet 90 tablet 0 Sig: Take 1 tablet by mouth once daily. lisinopril (ZESTRIL) 10 mg tablet 90 tablet 0 Sig: Take 1 tablet by mouth once daily. Luna Bauer LPN November 25, 2023 10:19 AM [facility]07-16-2024 Miscellaneous Notes* Telephone Encounter - Luna Bauer LPN - 11/25/2023 10:11 AM EDT Patient is schedule the soonest with Sarmad Wren NP at 8 am on 11/28/2023 Patient is needing refill to get her to appointment. Please review and advise. The last office visit in the department: 06/17/2022 Requested Prescriptions Pending Prescriptions Disp Refills lisinopril (ZESTRIL) 20 mg tablet 90 tablet 0 Sig: Take 1 tablet by mouth once daily. lisinopril (ZESTRIL) 10 mg tablet 90 tablet 0 Sig: Take 1 tablet by mouth once daily. Luna Bauer LPN November 25, 2023 10:19 AM documented in this encounterUniversity Hospitals [facility]07-[facility]-2024 NoteHNO ID: [id number] Author: YAIMA MAGANA MA Service: ? Author Type: Commercial Real Estate Underwriter Type: Progress Notes Filed: 11/14/2023 14:42 Note Text: PT ASSESSMENT - CASTING ROOM Irvin presents for Application of brace. Applied large J brace to Left knee. Patient electronically signed Jose R NOGUERA. Patient has been instructed in Care and proper application of brace. Yaima Magana [facility]07-05-2024 History of Present illness Narrative* Yaima Magana MA - 11/14/2023 2:41 PM EDT PT ASSESSMENT - CASTING ROOM Irvin presents for Application of brace. Applied large J brace to Left knee. Patient electronically signed Jose R NOGUERA. Patient has been instructed in Care and proper application of brace. Yaima Magana MA * Darnell Currie V, DO - 11/14/2023 2:21 PM EDT Images from the original note were not included. SERVICE DATE: November 14, 2023 PCP: April Corral MD Subjective Patient ID: Irvin is a 38 year old female. Chief Complaint: Patient presents with: Left knee pain REF: [facility] x-ray: 11/05/2023 PAIN EVALUATION 11/14/2023 0926 Pain Level: 7 Pain Location: Knee-Left Description: Throbbing Duration Units: Days Frequency: Continuous Intervention/Comfort measure: Medication;Cold;Heat HPI 38 y/o female presents today with subacute injury to left knee. planted and twisted, felt a pop in the knee followed by swelling. Pain is reported along the medial knee and patella. Pain with standing, twisting. No prior knee injury. Review of Systems ACTIVE PROBLEM LIST Obesity, Class I, Bmi 30-34.9 Abdominal Pain Cannabis Hyperemesis Syndrome Concurrent With and Due to Cannabis Abuse (Hcc) Corneal Abrasion Crohn's Disease (Hcc) Cystitis Diarrhea Essential (Primary) Hypertension Headache, Unspecified Headache Type History of Crohn's Disease History of Manic Depressive Disorder Lumbar Contusion Nausea, Vomiting, and Diarrhea PAST MEDICAL HISTORY Diagnosis Date Anxiety and depression Bipolar affective (HCC) Crohn's disease (HCC) Diverticulosis Hemorrhoid PAST SURGICAL HISTORY Procedure Laterality Date DILATION & CURETTAGE LIGATE FALLOPIAN TUBE REMOVAL GALLBLADDER 10/26/2022 At [facility] LEFT OP SURGERY Right artery repair after cutting herself FAMILY HISTORY Problem Relation Age of Onset [...] Alcohol use: Yes Comment: occasional Drug use: Yes Types: Marijuana Comment: daily ALLERGIES Allergen Reactions Amoxicillin Rash Tramadol Rash MEDICATIONS: lamoTRIgine (LAMICTAL) 200 mg tablet Take 1 tablet by mouth once daily. lisinopril (ZESTRIL) 10 mg tablet Take 1 tablet by mouth once daily. lisinopril (ZESTRIL) 20 mg tablet Take 1 tablet by mouth once daily. omeprazole (PRILOSEC) 20 mg capsule Take 1 capsule by mouth two times a day. 1/2 hr before meal. lamoTRIgine (LAMICTAL) 25 mg tablet Take 2 tablets by mouth once daily. Take with 200 mg tablet. hydrOXYzine pamoate (VISTARIL) 25 mg capsule Take 1 capsule by mouth two times a day as needed for anxiety. escitalopram oxalate (LEXAPRO) 20 mg tablet Take 1 tablet by mouth once daily. ondansetron orally disintegrating (ZOFRAN ODT) 4 mg disintegrating tablet dissolve 1 tablet ON TONGUE every 8 hours ustekinumab (STELARA) 90 mg/mL injection Take one dose subcutaneously monthly albuterol HFA (PROVENTIL HFA, VENTOLIN HFA) 90 mcg/actuation inhaler Inhale 2 Puffs as instructed every 6 hours as needed for wheezing/shortness of breath. albuterol HFA (PROVENTIL HFA, VENTOLIN HFA) 90 mcg/actuation inhaler Inhale 2 Puffs as instructed every 6 hours as needed for wheezing/shortness of breath. Allergies, medications, past surgical history, family history and past medical history were reviewed per this encounter. Objective Ortho Exam Left knee exam- trace effusion. Pain with patellar translation. Pain over medial joint line with palpation. Positive pain with Jairo and Thessaly. Anshu, varus and valgus stress negative for laxity. Assessment/Plan ASSESSMENT Diagnosis (M23.92) Internal derangement of left knee (primary encounter diagnosis) Plan: MRI KNEE WO IVCON LEFT (M25.562) Acute pain of left knee Plan: CONSULT TO ORTHOPAEDICS Office Visit on 11/14/23 MRI KNEE WO IVCON LEFT CONSULT TO ORTHOPAEDICS PLAN hinged brace for support FOLLOW-UP: No follow-ups on file. SIGNATURE: Darnell Currie DO PATIENT NAME: Irvin Tan DATE: November 14, 2023 TIME: 2:21 PM * Yaima Magana MA - 11/14/2023 2:03 PM EDT AMB ROOMING INTAKE FLOWSHEET DATA Pain Pain Level: 7 Pain Location: Knee-Left Description: Throbbing Duration Units: Days Frequency: Continuous Intervention/Comfort measure: Medication, Cold, Heat documented in this encounterUniversity Hospitals [facility]07-05-2024 NoteHNO ID: [id number] Author: DARNELL CURRIE DO Service: ? Author Type: Physician Type: Progress Notes Filed: 11/14/2023 14:24 Note Text: SERVICE DATE: November 14, 2023 PCP: April Corral MD Subjective Patient ID: Irvin is a 38 year old female. Chief Complaint: Patient presents with: Left knee pain REF: [facility] x-ray: 11/05/2023 PAIN EVALUATION 11/14/2023 0926 Pain Level: 7 Pain Location: Knee-Left Description: Throbbing Duration Units: Days Frequency: Continuous Intervention/Comfort measure: Medication;Cold;Heat HPI 38 y/o female presents today with subacute injury to left knee. planted and twisted, felt a pop in the knee followed by swelling. Pain is reported along the medial knee and patella. Pain with standing, twisting. No prior knee injury. Review of Systems ACTIVE PROBLEM LIST Obesity, Class I, Bmi 30-34.9 Abdominal Pain Cannabis Hyperemesis Syndrome Concurrent With and Due to Cannabis Abuse (Hcc) Corneal Abrasion Crohn's Disease (Hcc) Cystitis Diarrhea Essential (Primary) Hypertension Headache, Unspecified Headache Type History of Crohn's Disease History of Manic Depressive Disorder Lumbar Contusion Nausea, Vomiting, and Diarrhea PAST MEDICAL HISTORY Diagnosis Date Anxiety and depression Bipolar affective (HCC) Crohn's disease (HCC) Diverticulosis Hemorrhoid PAST SURGICAL HISTORY Procedure Laterality Date DILATION AND CURETTAGE LIGATE FALLOPIAN TUBE REMOVAL GALLBLADDER 10/26/2022 At [facility] LEFT OP SURGERY Right artery repair after cutting herself FAMILY HISTORY Problem Relation Age of Onset [...] Alcohol use: Yes Comment: occasional Drug use: Yes Types: Marijuana Comment: daily ALLERGIES Allergen Reactions Amoxicillin Rash Tramadol Rash MEDICATIONS: lamoTRIgine (LAMICTAL) 200 mg tablet Take 1 tablet by mouth once daily. lisinopril (ZESTRIL) 10 mg tablet Take 1 tablet by mouth once daily. lisinopril (ZESTRIL) 20 mg tablet Take 1 tablet by mouth once daily. omeprazole (PRILOSEC) 20 mg capsule Take 1 capsule by mouth two times a day. 1/2 hr before meal. lamoTRIgine (LAMICTAL) 25 mg tablet Take 2 tablets by mouth once daily. Take with 200 mg tablet. hydrOXYzine pamoate (VISTARIL) 25 mg capsule Take 1 capsule by mouth two times a day as needed for anxiety. escitalopram oxalate (LEXAPRO) 20 mg tablet Take 1 tablet by mouth once daily. ondansetron orally disintegrating (ZOFRAN ODT) 4 mg disintegrating tablet dissolve 1 tablet ON TONGUE every 8 hours ustekinumab (STELARA) 90 mg/mL injection Take one dose subcutaneously monthly albuterol HFA (PROVENTIL HFA, VENTOLIN HFA) 90 mcg/actuation inhaler Inhale 2 Puffs as instructed every 6 hours as needed for wheezing/shortness of breath. albuterol HFA (PROVENTIL HFA, VENTOLIN HFA) 90 mcg/actuation inhaler Inhale 2 Puffs as instructed every 6 hours as needed for wheezing/shortness of breath. Allergies, medications, past surgical history, family history and past medical history were reviewed per this encounter. Objective Ortho Exam Left knee exam- trace effusion. Pain with patellar translation. Pain over medial joint line with palpation. Positive pain with Jairo and Thessaly. Anshu, varus and valgus stress negative for laxity. Assessment/Plan ASSESSMENT Diagnosis (M23.92) Internal derangement of left knee (primary encounter diagnosis) Plan: MRI KNEE WO IVCON LEFT (M25.562) Acute pain of left knee Plan: CONSULT TO ORTHOPAEDICS Office Visit on 11/14/23 MRI KNEE WO IVCON LEFT CONSULT TO ORTHOPAEDICS PLAN hinged brace for support FOLLOW-UP: No follow-ups on file. SIGNATURE: Darnell Currie DO PATIENT NAME: Irvin Tan DATE: November 14, 2023 TIME: 2:21 [facility]07-05-2024 NoteHNO ID: [id number] Author: YAIMA MAGANA MA Service: ? Author Type: Commercial Real Estate Underwriter Type: Progress Notes Filed: 11/14/2023 14:24 Note Text: AMB ROOMING INTAKE FLOWSHEET DATA Pain Pain Level: 7 Pain Location: Knee-Left Description: Throbbing Duration Units: Days Frequency: Continuous Intervention/Comfort measure: Medication, [facility] History of Present illness Narrative* Dillan Azevedo RT(R) - 11/05/2023 9:50 AM EDT Radiology Service Progress Note PATIENT NAME: Irvin Tan DATE OF SERVICE: November 05, 2023 TIME: 9:49 AM PATIENT IDENTITY VERIFICATION COMPLETED USING TWO (2) IDENTIFIERS: Name and Date of confirmedby patient verbally. FALL SCREENING: Has the patient had 2 falls in the last year or 1 fall with injury or currently using an Ambulatory Assistive Device (Walker, Cane, Wheelchair, Crutches, etc.)? No PATIENT GENDER DATA: Female. status: : No status: NO. PATIENT RELEVANT IMPLANT DATA REVIEWED: Not Applicable PATIENT PRESENTS WITH AN IMPLANTABLE OR ATTACHED COLLECTIONS CURATOR: No RADIOLOGY DEPARTMENT: General X-ray: Exam(s) Completed: Lower Extremity X- Ray(s): Knee, AP / Lat / Tunne / Merchant Left and Wt. Bearing PERIPHERAL IV DATA: Not applicable SIGNED BY: RT Nuno(R) November 05, 2023 9:49 AM documented in this encounterUniversity Hospitals [facility]06-26-2024 NoteHNO ID: [id number] Author: DILLAN AZEVEDO RT(R) Service: Radiology Author Type: Technologist Type: Progress Notes Filed: 11/05/2023 10:02 Note Text: Radiology Service Progress Note PATIENT NAME: Irvin Tan DATE OF SERVICE: November 05, 2023 TIME: 9:49 AM PATIENT IDENTITY VERIFICATION COMPLETED USING TWO (2) IDENTIFIERS: Name and Date of confirmed by patient verbally. FALL SCREENING: Has the patient had 2 falls in the last year or 1 fall with injury or currently using an Ambulatory Assistive Device (Walker, Cane, Wheelchair, Crutches, etc.)? No PATIENT GENDER DATA: Female. status: : No status: NO. PATIENT RELEVANT IMPLANT DATA REVIEWED: Not Applicable PATIENT PRESENTS WITH AN IMPLANTABLE OR ATTACHED COLLECTIONS CURATOR: No RADIOLOGY DEPARTMENT: General X-ray: Exam(s) Completed: Lower Extremity X-Ray(s): Knee, AP / Lat / Tunne / Merchant Left and Wt. Bearing PERIPHERAL IV DATA: Not applicable SIGNED BY: RT Nuno(R) November 05, 2023 9:49 [facility]06-26-2024 NoteHNO ID: [id number] Author: CARRILLO HUDSON APRN.KITCHEN FOOD ASSEMBLER Service: ? Author Type: Nurse Practitioner Type: Progress Notes Filed: 11/05/2023 10:42 Note Text: Subjective HPI Nontoxic-appearing female presents urgent care chief complaint knee pain. Duration of symptoms 2 months. Associated symptoms knee pain. Patient states 2 months ago a individual stepped on her foot and she pivoted injuring her left knee. Was seen here in urgent care x-ray obtained. No acute findings noted. Was scheduled with orthopedics but was unable to make that appointment. Presents today due to persistent pain. Points over patellar region. 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 Feels like pain is worsening due to long days at work. No OTC medications recently. Denies fractures or surgeries to this knee in the past. Past medical history prescription medications allergies reviewed. .Patient presents with: Knee Pain: left, foot stepped on tried to move felt pop x 2 weeks PAST MEDICAL HISTORY Diagnosis Date Anxiety and depression Bipolar affective (HCC) Crohn's disease (HCC) Diverticulosis Hemorrhoid PAST SURGICAL HISTORY Procedure Laterality Date DILATION AND CURETTAGE LIGATE FALLOPIAN TUBE REMOVAL GALLBLADDER 10/26/2022 At [facility] LEFT OP SURGERY Right artery repair after cutting herself ALLERGIES Amoxicillin and Tramadol MEDICATIONS lamoTRIgine (LAMICTAL) 200 mg tablet Take 1 tablet by mouth once daily. lisinopril (ZESTRIL) 10 mg tablet Take 1 tablet by mouth once daily. albuterol HFA (PROVENTIL HFA, VENTOLIN HFA) 90 mcg/actuation inhaler Inhale 2 Puffs as instructed every 6 hours as needed for wheezing/shortness of breath. lisinopril (ZESTRIL) 20 mg tablet Take 1 tablet by mouth once daily. omeprazole (PRILOSEC) 20 mg capsule Take 1 capsule by mouth two times a day. 1/2 hr before meal. lamoTRIgine (LAMICTAL) 25 mg tablet Take 2 tablets by mouth once daily. Take with 200 mg tablet. hydrOXYzine pamoate (VISTARIL) 25 mg capsule Take 1 capsule by mouth two times a day as needed for anxiety. escitalopram oxalate (LEXAPRO) 20 mg tablet Take 1 tablet by mouth once daily. ondansetron orally disintegrating (ZOFRAN ODT) 4 mg disintegrating tablet dissolve 1 tablet ON TONGUE every 8 hours ustekinumab (STELARA) 90 mg/mL injection Take one dose subcutaneously monthly albuterol HFA (PROVENTIL HFA, VENTOLIN HFA) 90 mcg/actuation inhaler Inhale 2 Puffs as instructed every 6 hours as needed for wheezing/shortness of breath. FAMILY HISTORY Problem Relation Age of Onset [...] Yes Comment: occasional Drug use: Never BP 122/68 Pulse 86 Temp 36.4 ?C (97.5 ?F) Resp 16 Wt 83.7 kg (184 lb 8.4 oz) LMP 02/18/2023 SpO2 98% BMI 31.67 kg/m? Review of Systems Constitutional: Negative for chills, fever and malaise/fatigue. HENT: Negative for congestion, ear discharge, ear pain, sinus pain and sore throat. Eyes: Negative for blurred vision, pain, discharge and redness. Respiratory: Negative for cough, hemoptysis, sputum production, shortness of breath, wheezing and stridor. Cardiovascular: Negative for chest pain. Gastrointestinal: Negative for abdominal pain, diarrhea, nausea and vomiting. Musculoskeletal: Positive for joint pain. Negative for myalgias. Skin: Negative for itching and rash. Neurological: Negative for dizziness and headaches. Objective Physical Exam Constitutional: General: She is not in acute distress. Appearance: She is not toxic-appearing. HENT: Head: Normocephalic. Nose: Nose normal. Eyes: Pupils: Pupils are equal, round, and reactive to light. Cardiovascular: Rate and Rhythm: Normal rate. Pulmonary: Effort: Pulmonary effort is normal. No respiratory distress. Musculoskeletal: Cervical back: Normal range of motion. Left upper leg: Normal. Left knee: No swelling, deformity, effusion, erythema, ecchymosis or lacerations. Normal range of motion. Tenderness present over the patellar tendon. Left lower leg: Normal. Legs: Comments: No decreased range of motion or weakness noticed noted. No laxity of joint noted peripatellar tenderness. No erythema edema noted. Skin: General: Skin is warm and dry. Neurological: General: No focal deficit present. Mental Status: She is alert. ASSESSMENT/PLAN: 1. Acute pain of left knee - ICD9: 719.46, ICD10: M25.562 - XR KNEE GENERAL 4V AP BOTH/PA BOTH/LAT/MERC LEFT IMPRESSION: Unremarkable left knee x-ray. No acute findings noted on (more content not included)...[facility] History of Present illness Narrative* Carrillo Hudson APRN.KITCHEN FOOD ASSEMBLER - 11/05/2023 9:28 AM EDT Images from the original note were not included. Subjective HPI Nontoxic-appearing female presents urgent care chief complaint knee pain. Duration of symptoms 2 months. Associated symptoms knee pain. Patient states 2 months ago a individual stepped on her foot and she pivoted injuring her left knee. Was seen here in urgent care x-ray obtained. No acute findingsnoted. Was scheduled with orthopedics but was unable to make that appointment. Presents today due to persistent pain. Points over patellar region. 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 Feels like pain is worsening due to long days at work. No OTC medications recently. Denies fractures or surgeries to this knee in the past. Past medical history prescription medications allergies reviewed. .Patient presents with: Knee Pain: left, foot stepped on tried to move felt pop x 2 weeks PAST MEDICAL HISTORY Diagnosis Date Anxiety and depression Bipolar affective (HCC) Crohn's disease (HCC) Diverticulosis Hemorrhoid PAST SURGICAL HISTORY Procedure Laterality Date DILATION & CURETTAGE LIGATE FALLOPIAN TUBE REMOVAL GALLBLADDER 10/26/2022 At [facility] LEFT OP SURGERY Right artery repair after cutting herself ALLERGIES Amoxicillin and Tramadol MEDICATIONS lamoTRIgine (LAMICTAL) 200 mg tablet Take 1 tablet by mouth once daily. lisinopril (ZESTRIL) 10 mg tablet Take 1 tablet by mouth once daily. albuterol HFA (PROVENTIL HFA, VENTOLIN HFA) 90 mcg/actuation inhaler Inhale 2 Puffs as instructed every 6 hours as needed for wheezing/shortness of breath. lisinopril (ZESTRIL) 20 mg tablet Take 1 tablet by mouth once daily. omeprazole (PRILOSEC) 20 mg capsule Take 1 capsule by mouth two times a day. 1/2 hr before meal. lamoTRIgine (LAMICTAL) 25 mg tablet Take 2 tablets by mouth once daily. Take with 200 mg tablet. hydrOXYzine pamoate (VISTARIL) 25 mg capsule Take 1 capsule by mouth two times a day as needed for anxiety. escitalopram oxalate (LEXAPRO) 20 mg tablet Take 1 tablet by mouth once daily. ondansetron orally disintegrating (ZOFRAN ODT) 4 mg disintegrating tablet dissolve 1 tablet ON TONGUE every 8 hours ustekinumab (STELARA) 90 mg/mL injection Take one dose subcutaneously monthly albuterol HFA (PROVENTIL HFA, VENTOLIN HFA) 90 mcg/actuation inhaler Inhale 2 Puffs as instructed every 6 hours as needed for wheezing/shortness of breath. FAMILY HISTORY Problem Relation Age of Onset [...] Yes Comment: occasional Drug use: Never BP 122/68 Pulse 86 Temp 36.4 C (97.5 F) Resp 16 Wt 83.7 kg (184 lb 8.4 oz) [facility] 02/18/2023 SpO2 98% BMI 31.67 kg/m Review of Systems Constitutional: Negative for chills, fever and malaise/fatigue. HENT: Negative for congestion, ear discharge, ear pain, sinus pain and sore throat. Eyes: Negative for blurred vision, pain, discharge and redness. Respiratory: Negative for cough, hemoptysis, sputum production, shortness of breath, wheezing and stridor. Cardiovascular: Negative for chest pain. Gastrointestinal: Negative for abdominal pain, diarrhea, nausea and vomiting. Musculoskeletal: Positive for joint pain. Negative for myalgias. Skin: Negative for itching and rash. Neurological: Negative for dizziness and headaches. Objective Physical Exam Constitutional: General: She is not in acute distress. Appearance: She is not toxic-appearing. HENT: Head: Normocephalic. Nose: Nose normal. Eyes: Pupils: Pupils are equal, round, and reactive to light. Cardiovascular: Rate and Rhythm: Normal rate. Pulmonary: Effort: Pulmonary effort is normal. No respiratory distress. Musculoskeletal: Cervical back: Normal range of motion. Left upper leg: Normal. Left knee: No swelling, deformity, effusion, erythema, ecchymosis or lacerations. Normal range of motion. Tenderness present over the patellar tendon. Left lower leg: Normal. Legs: Comments: No decreased range of motion or weakness noticed noted. No laxity of joint noted peripatellar tenderness. No erythema edema noted. Skin: General: Skin is warm and dry. Neurological: General: No focal deficit present. Mental Status: She is alert. ASSESSMENT/PLAN: 1. Acute pain of left knee - ICD9: 719.46, ICD10: M25.562 - XR KNEE GENERAL 4V AP BOTH/PA BOTH/LAT/MERC LEFT IMPRESSION: Unremarkable left knee x-ray. No acute findings noted on x-ray. Schedule a follow-up with orthopedics as discussed. Patient was educated on supportive therapies. Patient [...] of care. This note was generated using [employer] software. It may contain errors in wording, punctuation, or spelling. Carrillo Hudson APRN.BLANCHE documented in this encounterUniversity Hospitals [facility]06-10-2024 NoteHNO ID: [id number] Author: ?, ?, ? Service: ? Author Type: ? Type: Progress Notes Filed: 10/20/2023 11:36 Note Text: POPULATION HEALTH NAVIGATION OUTREACH Action/FYI RP Patient Outreach: Spoke with patient to schedule Provider ordered Behavioral Health follow up. Patient declined to schedule follow up at this time. She will call back to schedule. Reason for Outreach Care Gap/HCC or Scheduling Wellness Visits Care Gaps due: Follow-up Appointment Patient Contacted: Spoke to patient/parent/or legal guardian Patient identified by name and : Yes Care Gap/HCC/Scheduling Wellness actions taken: Patient declined: Patient will call back later to schedule or asks for a call back Navigation Signature: Solis Camacho Victor Manuel October 20, 2023 11:36 [facility]06-10-2024 History of Present illness Narrative* Solis Brewster - 10/20/2023 11:36 AM EDT POPULATION HEALTH NAVIGATION OUTREACH Action/FYI RP Patient Outreach: Spoke with patient to schedule Provider ordered Behavioral Health follow up. Patient declined to schedule follow up at this time. She will call back to schedule. Reason for Outreach Care Gap/HCC or Scheduling Wellness Visits Care Gaps due: Follow-up Appointment Patient Contacted: Spoke to patient/parent/or legal guardian Patient identified by name and : Yes Care Gap/HCC/Scheduling Wellness actions taken: Patient declined: Patient will call back later to schedule or asks for a call back Navigation Signature: Solis Camacho Victor Manuel October 20, 2023 11:36 AM documented in this encounterUniversity Hospitals [facility]06-10-2024 NotePatient Outreach (NETNAV) IRVIN TAN ([id number]) 1985 F Date Time Provider Department 10/20/23 NO PCP NETNAV During your visit today, we recorded the following information about you: Solis Brewtser 10/20/2023 11:36 AM Signed POPULATION HEALTH NAVIGATION OUTREACH Action/FYI RP Patient Outreach: Spoke with patient to schedule Provider ordered Behavioral Health follow up. Patient declined to schedule follow up at this time. She will call back to schedule. Reason for Outreach Care Gap/HCC or Scheduling Wellness Visits Care Gaps due: Follow-up Appointment Patient Contacted: Spoke to patient/parent/or legal guardian Patient identified by name and : Yes Care Gap/HCC/Scheduling Wellness actions taken: Patient declined: Patient will call back later to schedule or asks for a call back Navigation Signature: Solis Camacho Pss October 20, 2023 11:36 AM Allergies As of Date: 10/20/2023 Noted Allergy Reaction AMOXICILLIN 07/01/2020 2 - Rash TRAMADOL 07/01/2020 2 - Rash Date Reviewed: 09/08/2023 Reviewed by: Sara Castelan MA - Fully Assessed Prescriptions as of 10/20/2023 - lamoTRIgine (LAMICTAL) 200 mg tablet Take 1 tablet by mouth once daily. - lisinopril (ZESTRIL) 10 mg tablet Take 1 tablet by mouth once daily. - albuterol HFA (PROVENTIL HFA, VENTOLIN HFA) 90 mcg/actuation inhaler Inhale 2 Puffs as instructed every 6 hours as needed for wheezing/shortness of breath. - lisinopril (ZESTRIL) 20 mg tablet Take 1 tablet by mouth once daily. - omeprazole (PRILOSEC) 20 mg capsule Take 1 capsule by mouth two times a day. 1/2 hr before meal. - lamoTRIgine (LAMICTAL) 25 mg tablet Take 2 tablets by mouth once daily. Take with 200 mg tablet. - hydrOXYzine pamoate (VISTARIL) 25 mg capsule Take 1 capsule by mouth two times a day as needed for anxiety. - escitalopram oxalate (LEXAPRO) 20 mg tablet Take 1 tablet by mouth once daily. - ondansetron orally disintegrating (ZOFRAN ODT) 4 mg disintegrating tablet dissolve 1 tablet ON TONGUE every 8 hours - ustekinumab (STELARA) 90 mg/mL injection Take one dose subcutaneously monthly - albuterol HFA (PROVENTIL HFA, VENTOLIN HFA) 90 mcg/actuation inhaler Inhale 2 Puffs as instructed every 6 hours as needed for wheezing/shortness of breath. Problem List As Of Date 10/20/2023 Noted Resolved Obesity, Class I, BMI 30-34.9 [E66.9] 02/11/2022 Abdominal pain [R10.9] 05/07/2021 Cannabis hyperemesis syndrome concurrent with a*05/14/2022 Corneal abrasion [S05.00XA] 05/14/2022 Crohn's disease (HCC) [K50.90] 02/15/2022 Cystitis [N30.90] 05/14/2022 Diarrhea [R19.7] 05/14/2022 Essential (primary) hypertension [I10] 02/12/2022 Headache, unspecified headache type [R51.9] 05/14/2022 History of Crohn's disease [Z87.19] 05/14/2022 History of manic depressive disorder [Z86.59] 05/14/2022 Lumbar contusion [S30.0XXA] 05/14/2022 Nausea, vomiting, and diarrhea [R11.2, R19.7] 02/12/2022 Encounter Status:Closed by SOLIS BREWSTER on 10/20/23[facility]05-21-2024 Telephone encounter Note* Telephone Encounter - Vianney Sharp LPN - 09/30/2023 9:09 AM EDT Pt requesting the 10 mg and this is due for refill. Lisinopril 20 mg was sent in last week. Please refill medication. Patient has been identified by name and date of : Yes, Provider Dr. Corral Date 09/30/23 Time 9:10 am Patient phones for refill(s): Requested Prescriptions Pending Prescriptions Disp Refills lisinopril (ZESTRIL) 10 mg tablet 90 tablet 0 Sig: Take 1 tablet by mouth once daily. Refused Prescriptions Disp Refills lisinopril (ZESTRIL) 10 mg tablet 90 tablet 0 Sig: Take 1 tablet by mouth once daily. Refused By: MICHELLE GRIMM Reason for Refusal: Records indicate that there is a valid prescription at the pharmacy Date of last office visit in primary care: 04/07/2023 Date of next office visit in primary care: Pt was seen for nausea and this has resolved. Advise when pt needs to be seen. Please advise. Thank you. Vianney Sharp LPN. [facility]05-21-2024 Miscellaneous Notes* Telephone Encounter - Vianney Sharp LPN - 09/30/2023 9:09 AM EDT Pt requesting the 10 mg and this is due for refill. Lisinopril 20 mg was sent in last week. Please refill medication. Patient has been identified by name and date of : Yes, Provider Dr. Corral Date 09/30/23 Time 9:10 am Patient phones for refill(s): Requested Prescriptions Pending Prescriptions Disp Refills lisinopril (ZESTRIL) 10 mg tablet 90 tablet 0 Sig: Take 1 tablet by mouth once daily. Refused Prescriptions Disp Refills lisinopril (ZESTRIL) 10 mg tablet 90 tablet 0 Sig: Take 1 tablet by mouth once daily. Refused By: MICHELLE GRIMM Reason for Refusal: Records indicate that there is a valid prescription at the pharmacy Date of last office visit in primary care: 04/07/2023 Date of next office visit in primary care: Pt was seen for nausea and this has resolved. Advise when pt needs to be seen. Please advise. Thank you. Vianney Sharp LPN. * Telephone Encounter - Shweta Urena OCCA - 09/30/2023 8:30 AM EDT Patient has been identified by name and date of : Yes Patient phones for refill(s): Requested Prescriptions Pending Prescriptions Disp Refills lisinopril (ZESTRIL) 10 mg tablet 90 tablet 0 Sig: Take 1 tablet by mouth once daily. Date of last office visit in primary care: 04/07/2023 Date of next office visit in primary care: Visit date not found Please advise. Thank you. BINTA Torres. documented in this encounterUniversity Hospitals [facility]05-21-2024 Telephone encounter Note * Telephone Encounter - Shweta Urena OCCA - 09/30/2023 8:30 AM EDT Patient has been identified by name and date of : Yes Patient phones for refill(s): Requested Prescriptions Pending Prescriptions Disp Refills lisinopril (ZESTRIL) 10 mg tablet 90 tablet 0 Sig: Take 1 tablet by mouth once daily. Date of last office visit in primary care: 04/07/2023 Date of next office visit in primary care: Visit date not found Please advise. Thank you. BINTA Torres. [facility]05-13-2024 Telephone encounter Note* Telephone Encounter - Vianney Shrap LPN - 09/22/2023 3:04 PM EDT Spoke with pt and information listed below given. Pt verbalizes understanding. Pt declined to have me schedule apt. Pt was at work. Pt reports she will call back to schedule. Vianney Sharp LPN [facility]05-13-2024 Miscellaneous Notes* Telephone Encounter - Vianney Sharp LPN - 09/22/2023 3:04 PM EDT Spoke with pt and information listed below given. Pt verbalizes understanding. Pt declined to have me schedule apt. Pt was at work. Pt reports she will call back to schedule. Vianney Sharp LPN * Telephone Encounter - Michelle Grimm APRN.CNP - 09/22/2023 1:03 PM EDT * Telephone Encounter - Audrey Song MA - 09/22/2023 9:43 AM EDT Patient has been identified by name and date of : Yes, Provider April Corral MD DateMa2023 Time 9:43 AM Patient phones for refill(s): Requested Prescriptions Pending Prescriptions Disp Refills albuterol HFA (PROVENTIL HFA, VENTOLIN HFA) 90 mcg/actuation inhaler 8.5 g 1 Sig: Inhale 2 Puffs as instructed every 6 hours as needed for wheezing/shortness of breath. lisinopril (ZESTRIL) 20 mg tablet 90 tablet 0 Sig: Take 1 tablet by mouth once daily. Date of last office visit in primary care: 04/07/23 Date of next office visit in primary care: none Please advise. Thank you. Audrey Song MA. documented in this encounterUniversity Hospitals [facility]05-13-2024 Telephone encounter Note * Telephone Encounter - Michelle Grimm APRN.CNP - 09/22/2023 1:03 PM EDT [facility]05-13-2024 Telephone encounter Note* Telephone Encounter - Sandie Swartz MA - 09/22/2023 9:56 AM EDT Pt notified appt is needed. Advised pt to setup appt via [employer] or call into the office and speak with a Stock Wetter. Sandie Swartz MA [facility]05-13-2024 Miscellaneous Notes* Telephone Encounter - Sandie Swartz MA - 09/22/2023 9:56 AM EDT Pt notified appt is needed. Advised pt to setup appt via [employer] or call into the office and speak with a Stock Wetter. Sandie Swartz MA * Telephone Encounter - Michelle Grimm APRN.CNP - 09/22/2023 9:22 AM EDT Appointment needed Michelle Grimm APRN.CNP * Telephone Encounter - Sandie Swartz MA - 09/22/2023 9:10 AM EDT See pt message. This has previously been discussed, was on Pepcid and switched to Prilosec 20 mg once daily at previous OV on 04/07/23. Pt has cancelled multiple appt's with you and no showed. Advise does pt need appt. Sandie Swartz MA documented in this encounterUniversity Hospitals [facility] Center05-13-2024 Telephone encounter Note * Telephone Encounter - Audrey Song MA - 09/22/2023 9:49 AM EDT Patient has been identified by name and date of : Yes, Provider April Corral MD Ia2023 Time 9:49 AM Patient phones for refill(s): Requested Prescriptions Pending Prescriptions Disp Refills omeprazole (PRILOSEC) 20 mg capsule 60 capsule 5 Sig: Take 1 capsule by mouth two times a day. 1/2 hr before meal. Date of last office visit in primary care: 04/07/2023 Date of next office visit in primary care: none Please advise. Thank you. Audrey Song MA. [facility]05-13-2024 Miscellaneous Notes* Telephone Encounter - Audrey Song MA - 09/22/2023 9:49 AM EDT Patient has been identified by name and date of : Yes, Provider April Corral MD Ia2023 Time 9:49 AM Patient phones for refill(s): Requested Prescriptions Pending Prescriptions Disp Refills omeprazole (PRILOSEC) 20 mg capsule 60 capsule 5 Sig: Take 1 capsule by mouth two times a day. 1/2 hr before meal. Date of last office visit in primary care: 04/07/2023 Date of next office visit in primary care: none Please advise. Thank you. Audrey Song MA. documented in this encounterUniversity Hospitals [facility] Center05-13-2024 Telephone encounter Note * Telephone Encounter - Audrey Song MA - 09/22/2023 9:43 AM EDT Patient has been identified by name and date of : Yes, Provider April Corral MD DateMay 2023 Time 9:43 AM Patient phones for refill(s): Requested Prescriptions Pending Prescriptions Disp Refills albuterol HFA (PROVENTIL HFA, VENTOLIN HFA) 90 mcg/actuation inhaler 8.5 g 1 Sig: Inhale 2 Puffs as instructed every 6 hours as needed for wheezing/shortness of breath. lisinopril (ZESTRIL) 20 mg tablet 90 tablet 0 Sig: Take 1 tablet by mouth once daily. Date of last office visit in primary care: 04/07/23 Date of next office visit in primary care: none Please advise. Thank you. Audrey Song MA. [facility]05-13-2024 Telephone encounter Note* Telephone Encounter - Michelle Grimm APRN.CNP - 09/22/2023 9:22 AM EDT Appointment needed Michelle Grimm APRN.CNP [facility]05-13-2024 Telephone encounter Note* Telephone Encounter - Sandie Swartz MA - 09/22/2023 9:10 AM EDT See pt message. This has previously been discussed, was on Pepcid and switched to Prilosec 20 mg once daily at previous OV on 04/07/23. Pt has cancelled multiple appt's with you and no showed. Advise does pt need appt. Sandie Swartz MA [facility]04-29-2024 History of Present illness Narrative* Dillan Azevedo RT(R) - 09/08/2023 5:00 PM EDT Radiology Service Progress Note PATIENT NAME: Irvin Tan DATE OF SERVICE: September 08, 2023 TIME: 4:59 PM PATIENT IDENTITY VERIFICATION COMPLETED USING TWO (2) IDENTIFIERS: Name and Date of confirmedby patient verbally. FALL SCREENING: Has the patient had 2 falls in the last year or 1 fall with injury or currently using an Ambulatory Assistive Device (Walker, Cane, Wheelchair, Crutches, etc.)? No PATIENT GENDER DATA: Female. status: : No status: NO. PATIENT RELEVANT IMPLANT DATA REVIEWED: Not Applicable PATIENT PRESENTS WITH AN IMPLANTABLE OR ATTACHED COLLECTIONS CURATOR: No RADIOLOGY DEPARTMENT: General X-ray: Exam(s) Completed: Lower Extremity X- Ray(s): Knee, AP / Lat / Tunne / Merchant Left and Wt. Bearing PERIPHERAL IV DATA: Not applicable SIGNED BY: RT Nuno(R) September 08, 2023 4:59 PM documented in this encounterUniversity Hospitals Tripoint Medical Center04-29-2024 History of Present illness Narrative* Yu Castillo MD - 09/08/2023 4:49 PM EDT Patient presents with: Trauma: Possible pulled muscle in left leg/knee, pain and swelling x 1 day HPI: Left leg pain: Duration: her left knee twisted while someone was standing on her foot and she heard a pop Location: left knee Character: sharp and pressure Radiation: some above the knee Aggravating: bending, squatting, and walking Relieving: Pain relievers: Motrin, Tylenol, and epsom soak Associated: swelling, popping, catches when trying to get up Pertinent negatives: MEDICATIONS: lisinopril (ZESTRIL) 10 mg tablet Take 1 tablet by mouth once daily. lamoTRIgine (LAMICTAL) 25 mg tablet Take 1 tablet by mouth once daily for 14 days, THEN 2 tablets once daily. Take with 200 mg tablet.. hydrOXYzine pamoate (VISTARIL) 25 mg capsule Take 1 capsule by mouth two times a day as needed for anxiety. escitalopram oxalate (LEXAPRO) 20 mg tablet Take 1 tablet by mouth once daily. lisinopril (ZESTRIL) 20 mg tablet Take 1 tablet by mouth once daily. albuterol HFA (PROVENTIL HFA, VENTOLIN HFA) 90 mcg/actuation inhaler Inhale 2 Puffs as instructed every 6 hours as needed for wheezing/shortness of breath. omeprazole (PRILOSEC) 20 mg capsule Take 1 capsule by mouth two times a day. 1/2 hr before meal. ondansetron orally disintegrating (ZOFRAN ODT) 4 mg disintegrating tablet dissolve 1 tablet ON TONGUE every 8 hours ustekinumab (STELARA) 90 mg/mL injection Take one dose subcutaneously monthly albuterol HFA (PROVENTIL HFA, VENTOLIN HFA) 90 mcg/actuation inhaler Inhale 2 Puffs as instructed every 6 hours as needed for wheezing/shortness of breath. lamoTRIgine (LAMICTAL) 200 mg tablet Take 1 tablet by mouth once daily. hyoscyamine (LEVSIN) 0.125 mg tablet take 1 tablet by mouth twice a day for DYSPEPSIA ALLERGIES: ALLERGIES Allergen Reactions Amoxicillin Rash Tramadol Rash VITALS: BP 110/82 Pulse 84 Temp 36.5 C (97.7 F) Resp 21 Wt 87.8 kg (193 lb 9 oz) LMP 02/18/2023 SpO2 96% BMI 33.23 kg/m PHYSICAL EXAM: GEN: pleasant, alert, no acute distress KNEE: left compared to right. No erythema. Effusion present. No deformity. Painful ROM. Patellar crepitus. Anterior, lateral, and posterior joint line tenderness. Stable to varus and valgus strain. Negative anterior drawer test. Negative posterior drawer test. Walks with left knee partially flexed. ASSESSMENT/PLAN: 1. Acute pain of left knee - ICD9: 719.46, ICD10: M25.562 - XR KNEE GENERAL 4V AP BOTH/PA BOTH/LAT/MERC LEFT - negative. Treat with rest, ice, compression, and NSAID. VENUS wrap applied. - CONSULT TO ORTHOPAEDICS to assess for meniscus injury/loose body because of effusion, crepitus, and locking. Yu Castillo MD documented in this encounterUniversity Hospitals Tripoint Medical Center04-12-2024 Telephone encounter Note * Telephone Encounter - Rhina Velázquez LPN - 08/22/2023 2:38 PM EDT Phoned patient to reschedule her 08/25/23 appointment with Michelle as she will be unavailable that day. Patient stated she will call back in after she gets her work schedule to reschedule her appointment. [facility]04-12-2024 Miscellaneous Notes* Telephone Encounter - Rhina Velázquez LPN - 08/22/2023 2:38 PM EDT Phoned patient to reschedule her 08/25/23 appointment with Michelle as she will be unavailable that day. Patient stated she will call back in after she gets her work schedule to reschedule her appointment. documented in this encounterUniversity Hospitals Tripoint Medical Center03-12-2024 Miscellaneous Notes* Telephone Encounter - Candice Dale LPN - 07/22/2023 11:14 AM EDT Patient has been identified by name and [...] you. Candice Dale LPN. documented in this encounterUniversity Hospitals Tripoint Medical Center02-14-2024 Miscellaneous Notes* Telephone Encounter - Anamika Clarke RN - 06/25/2023 12:14 PM EST Pt called and is notified of providers results and instructions. Pt voices understanding. Anamika Clarke RN * Telephone Encounter - Emy Lee LPN - 06/25/2023 11:00 AM EST Left message to return call. * Telephone Encounter - Michelle Grimm APRN.CNP - 06/25/2023 8:21 AM EST Please call patient and let her know her cholesterol is moderately elevated- needs to work on low saturated diet and aim for at least 150 minutes of exercise per week. The rest of her blood work is normal. Keep appointment as scheduled for physical. Michelle Grimm APRN.BLANCHE documented in this encounterUniversity Hospitals Tripoint Medical Center02-12-2024 Miscellaneous Notes* Telephone Encounter - Charlotte Espinoza RN - 06/23/2023 4:36 PM EST Patient has been identified by name and [...] now run out of the 10 mg dose.Both pended. [facility] Date of last office visit in primary care: 04/07/2023 Date of next office visit in primary care: 07/22/2023 Please advise. Thank you. Charlotte Espinoza, RN. documented in this encounterUniversity Hospitals Tripoint Medical Center02-12-2024 Miscellaneous Notes* Telephone Encounter - Audrey Song Ma - 06/23/2023 9:49 AM EST Lisinopril was refilled 06/04/23 #90 with 1 refill to [facility]. Pt notified to check with pharmacy for refills. Audrey Song Ma documented in this encounterUniversity Hospitals Tripoint Medical Center02-05-2024 Miscellaneous Notes* Telephone Encounter - Candice Dale LPN - 06/16/2023 9:24 AM EST Patient has been identified by name and [...] you. Candice Dale LPN. documented in this encounterUniversity Hospitals Tripoint Medical Center01-23-2024 History of Present illness Narrative* Shanel Goodman, RT(R) - 06/03/2023 6:10 PM EST Radiology Service Progress Note PATIENT NAME: Irvin Tan DATE OF SERVICE: June 03, 2023 TIME: 6:02 PM PATIENT IDENTITY VERIFICATION COMPLETED USING TWO (2) IDENTIFIERS: Name and Date of confirmedby patient verbally. FALL SCREENING: Has the patient [...] RT Patrice(R) June 03, 2023 6:02 PM documented in this [facility]12-15-2023 Miscellaneous Notes* Telephone Encounter - Sandie Swartz Ma - 04/25/2023 11:54 AM EST Asked pt to clarify which medication she is referring too. Sandie Swartz Ma documented in this [facility]12-13-2023 Miscellaneous Notes* Telephone Encounter - Louisa Wallace Ma - 04/23/2023 8:00 AM EST Patient last visit 04/07/23 Follow up appointment scheduled 05/19/23 Louisa Wallace Ma documented in this [facility]12-12-2023 Miscellaneous Notes* Telephone Encounter - Vianney Sharp LPN - 04/22/2023 2:51 PM EST Spoke with pt and information listed below given. Pt verbalizes understanding. Vianney Sharp LPN * Telephone Encounter - Candice Dale LPN - 04/22/2023 1:20 PM EST Message left for patient to call office back for update. Candice Dale LPN * Telephone Encounter - Michelle Grimm APRN.CNP - 04/22/2023 9:19 AM EST Please call patient and let her know I completed Peer to peer and they have approved the MRI. She may proceed as scheduled. Michelle Grimm APRN.BLANCHE Authorization number [id number] documented in this encounterUniversity Hospitals Tripoint Medical Center12-12-2023 Miscellaneous Notes* Telephone Encounter - Candice Dale LPN - 04/22/2023 1:18 PM EST See other TE 04/21/2023. Candice Dale LPN * Telephone Encounter - Candice Dale LPN - 04/18/2023 10:30 AM EST Patient telephoned, message left to call office back for update. Candice Dale LPN * Telephone Encounter - Michelle Grimm APRN.CNP - 04/18/2023 6:31 AM EST Insurance has denied her MRI. Please let patient know she will need to cancel testing. Michelle Grimm APRN.BLANCHE documented in this encounterUniversity Hospitals Tripoint Medical Center11-21-2023 Miscellaneous Notes* Telephone Encounter - Tawanda Wilson RN - 04/01/2023 12:25 PM EST Called pt and notified unable to give refills on her Zofran until she comes in to be seen. F/U apptmade with Michelle Grimm for 04/07 at 0800. * Telephone Encounter - Michelle Grimm APRN.CNP - 04/01/2023 6:18 AM EST Patient is overdue for appointment. Please assist in scheduling. Michelle Grimm APRN.BLANCHE * Telephone Encounter - Tawanda Villafuerte LPN - 03/31/2023 11:59 AM EST ANICETO-06/17/22 Labs-06/30/22 NOV-none Tawanda Villafuerte LPN documented in this encounterUniversity Hospitals Tripoint Medical Center11-05-2023 History of Present illness Narrative* Stefani Gaspar APRN.BLANCHE - 03/16/2023 1:42 PM EST This note was created using [employer]. Subjective Irvin Tan is a 38 year [...] history is provided by the patient. No instructor warper was used. URI She complains of cough. [...] of asthma, bronchiectasis, bronchitis, COPD, emphysema or pne umonia. PAST MEDICAL HISTORY Diagnosis Date Anxiety and [...] postnasal drip, rhinorrhea, sinus pressure, sinus pain andsneezing. Negative for hoarse voice and trouble swallowing. [...] Wt 87.5 kg (193 lb) LMP 02/18/2023 [id number]% BMI 33.13 kg/m Physical Exam Vitals and [...] sooner if worsening of symptoms Stefani Gaspar APRN.BLANCHE documented in this encounterUniversity Hospitals Tripoint Medical Center10-06-2023 Miscellaneous Notes* Telephone Encounter - Daisy Bolton LPN - 02/14/2023 11:41 AM EDT Patient has been identified by name and date of : Yes Requested Prescriptions Pending Prescriptions Disp Refills lisinopril (ZESTRIL) 20 mg tablet 90 tablet 1 Sig: Take 1 tablet by mouth once daily. RX INSTRUCTIONS: Patient aware RX will be sent to pharmacy. No need to notify patient. ANICETO 06/17/22 No follow up scheduled. Daisy Bolton LPN documented in this encounterUniversity Hospitals Tripoint Medical Center09-01-2023 Hospital Discharge instructions Patient Education 01/10/2023 15:26:35 Ovarian Cyst [...] your doctor suspects your cyst is cancerous. Keepin mind that most cysts are not cancerous, however. General care To help relieve pain, your healthcare provider may recommend using [id number] pain medicine. If needed, your provide may prescribe stronger pain medicine. Depending on the type of cyst you have, your healthcare provider may advise taking control pills. These help shrink cysts in certain cases. They may also help prevent new cysts from forming. Besure to take these medicines as directed if [...] Weakness, dizziness, or fainting Abnormal vaginal bleeding [id number] [employer]. [address] [place] [address]. All rights reserved. This information is not intended as a substitute for professional medical care. Always follow yourhealthcare professional's instructions. Follow Up Care 01/10/2023 14:12:22 With:[facility] Address: [address] [place] [address]- When:2-4 days [facility] 09-01-2023 Emergency department Discharge summary Discharge Instructions Thank you for allowing [facility] to assist you with your healthcare needs. The following is importantdischarge information regarding your hospital visit. Diagnosis from Today's Visit Abdominal pain Pelvic pain What to Do Next Instructions from Your Care Team No qualifying data available. Post Acute Orders No qualifying data available. You Need to Schedule the Following Appointments Follow Up with [facility] When Within 2-4 days Where: [address] [place] [address]- Allergies amoxicillin traMADol Medications Please ask your primary doctor or pharmacist before taking any other medication not listed, including over the counter drugs, herbal medications, vitamins and or supplements as they may interact withyour home medications. What How Much When Instructions [...] your doctor suspects your cyst is cancerous. Keepin mind that most cysts are not cancerous, however. General care To help relieve pain, your healthcare provider may recommend using bcrr-qgl-rwsinao pain medicine. If needed, your provide may prescribe stronger pain medicine. Depending on the type of cyst you have, your healthcare provider may advise taking control pills. These help shrink cysts in certain cases. They may also help prevent new cysts from forming. Besure to take these medicines as directed if [...] Weakness, dizziness, or fainting Abnormal vaginal bleeding [phone] [employer]. [address] [place] [address]. All rights reserved. This information is not intended as a substitute for professional medical care. Always follow yourhealthcare professional's instructions. Additional Information VACCINATE! IT SAVES LIVES! Members of the community who have not yet received the COVID-19 vaccine and would like to receive it can visit one of [facility] vaccine clinics. There are many vaccine clinic locations within the [facility]. For locations and available times, please visit www.[email or web address].[place].gov/. It is important to note that some COVID mobile vaccine clinics are held outdoors and may be canceled in rainy or stormy conditions. To learn more about pediatric vaccinations (ages 5-11), we invite you to visit the [facility] webpage. https://www.[facility].org/pages/[email or web address]-Urhzj-Cwitotzjbdf-Iekukyeuoq-Ybmwf-Crh stions.htmlTo learn more about the COVID-19 vaccine, we invite you to visit the CDC website for a list of frequently asked questions. https://www.cdc.gov/coronavirus/2019-ncov/vaccines/faq.html [facility] Patient Portal Access Instructions: Stay connected with your healthcare team and access your personal medical information anytime with the [facility] Patient Portal. If you would like a full copy of your medical records please contact the [facility] Medical Records Department Friday through Friday between 8a.m. and 4:30p.m. Please follow the directions below to access the portal: 1.Access the email account you provided upon registration to the the [facility].2.Look for an invitation email from [facility].3.Open the email and access the invitation link: Accept Invitation to [facility]4.Fill in the required francois to create your account. Sign into [email or web address] with your username and password that you [...] you will allow to register on the [facility] Patient Portal for access to your information. You can also access the [facility] Patient Portal on the Alea. Simply click on Health Records under [facility] and then click on the [employer] logo. HOW TO SAFELY DISPOSE OF PRESCRIPTION MEDICATIONS Please use one of the following methods to safely dispose of your unused medications. 1.Use a drug disposal kit: the drug disposal pouch allows you to safely discard your old and unuseddrugs. Ask your nurse to give you one when you are discharged.2.Visit a local take-back location: Many local pharmacies and police departments have programs that collect old and unwanted prescriptiondrugs. Call your local pharmacy or go to [email or web address] to find one close to you.3.Make use of household items: Use cat litter or old coffee grounds to dispose medications if other options arenot available. Mix your drugs with these household products, seal them in an airtight container andthrow it into the garbage. Call [facility]: [phone] to be sure your drugs can be [...] drowsiness, such as benzodiazepines, also known as benzos,including diazepam and alprazolam, muscle relaxants or sleep aids. Never sell or share prescriptionopioids. This is illegal. Store opioids in a secure place and out of reach of others (including children, family, friends and visitors). The last page(s) of this document has been signed and retained as a CHART COPY Signatures Patient Education Materials Ovarian Cyst Medication Leaflets My discharge plan and instructions have been reviewed and explained to me and IJANEE CHETOIA Dunderstand my current condition and have read and understand these discharge instructions. I have received a written copy of the plan/instructions. If I have questions, I am aware that I should contact my doctor. 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 Patient needs to contact pharmacy regarding prescription. Ivet Duke RN Last Office Visit: 06/17/2022 Future Office Visit: none Requested Prescriptions Pending Prescriptions Disp Refills dicyclomine (BENTYL) 20 mg tablet 90 tablet 5 Sig: Take 1 tablet by mouth three times daily. documented in this encounterUniversity [facility]als [facility]07-15-2023 Discharge summary Author Marquise Solares [facility] November 23, 2022 3:33pm Note Date/Time November 23, 2022 12:3 9pm [facility] Medical Records Department [address] [place] [place] [address] Emergency Department Summary 11/23/22 MR#: [id number] Acct: [id number] Name: IRVIN TAN Rep #:[id number] : 1985 37 From: Marquise Solares MD PCP: Michelle Grimm NP-C Status:REG E R Location: ED HPI HPI - GI History of Present Illness Chief Complaint: Abd Pain Informant: patient Abdominal Pain/Flank Pain Onset: Hours Context: Gradual Onset Timing: Continuous Quality: Aching and Cramping Location: RLQ and LLQ Current Severity: Mild Maximum Severity: Mild Worsened by: Nothing Relieved by: Nothing Nausea/Vomiting/Emesis GI Symptom: Positive for Nausea Onset: Today Severity: Mild Diarrhea/Melena/Hematochezia GI Symptom: Positive for Diarrhea; Negative for Melena or Hematochezia Onset: Today Stool Quality: Positive for Loose Severity: Mild Associated Symptoms Associated Symptoms: Negative for Dysuria, Frequency, Hematuria or Urgency Narrative Narrative: 75-lrcn-fy[age]-year-old female history of Crohn's. Had a cholecystectomy a month ago. States around 6 AM this morning she started having nausea, loose stools and lower abdominal discomfort. Denies any fever or chills. No dysuria. Last menstrual period was about 2 weeks ago and normal. Other than her cholecystectomy she has not had other abdominal surgeries. No prior bowel resection. Still has her appendix. Prior similar symptoms: Yes Recent Illness/Hospitalization: Yes PFSH PFSH Medical History Anemia Anxiety Asthma Bipolar 1 disorder Depression Heartburn History of blood transfusion History of Crohn's disease Hypertension Low iron Marijuana use Migraine headache Smoker Home Medications escitalopram oxalate 20 mg tablet (Lexapro) 20 mg PO DAILY 08/15/21 [History Last Taken Unknown] hydroxyzine pamoate 25 mg capsule 25 mg PO QHS 08/15/21 [History Last Taken Unknown] lamotrigine 100 mg tablet (Lamictal) 200 mg PO DAILY 08/15/21 [History Last Taken Unknown] promethazine 25 mg tablet 25 mg PO Q6H PRN PRN Nausea #10 TABLETS 05/23/22 [Rx Last Taken Unknown] dicyclomine 20 mg tablet 20 mg PO TID #14 tabs 07/30/22 [Rx Last Taken Unknown] scopolamine base 1 mg over 3 days transdermal patch 1 patch transdermal Q3D #10 ea 09/23/22 [Rx Last Taken Unknown] ustekinumab 90 mg/mL subcutaneous syringe (Stelara) 90 mg subcut Q8W #1 mL 09/30/22 [Rx Last Taken Unknown] albuterol sulfate 90 mcg/actuation aerosol inhaler (Ventolin HFA) 1 inh inhalation Q6H PRN ASTHMA 10/24/22 [History Last Taken Unknown] lisinopril 30 mg tablet 30 mg PO DAILY 10/24/22 [History Last Taken Unknown] hydrocodone-acetaminophen 5-325mg 5mg-325mg 1 - 2 tab PO Q4H PRN pain 5 days #20tabs 10/25/22 [Rx Last Taken Unknown] ciprofloxacin HCl 500 mg tablet (Cipro) 500 mg PO DAILY 10 days #10 tabs 11/23/22 [Rx Last Taken Unknown] hydrocodone 5 mg-acetaminophen 300 mg tablet 1 tab PO Q6H PRN pain 3 days #14 tabs 11/23/22 [Rx Last Taken Unknown] metronidazole 500 mg tablet 500 mg PO Q8H 10 days #30 tabs 11/23/22 [Rx Last Taken Unknown] prednisone 20 mg tablet 40 mg (2 x 20 mg) PO DAILY 14 days #28 tabs 11/23/22 [Rx Last Taken Unknown] Allergy/AdvReac Type Severity Reaction Status Date / Time amoxicillin Allergy Rash Verified 11/23/22 12:02 tramadol Allergy Rash Verified 11/23/22 12:02 Family History Mother Mental disorder Surgical History History of esophagogastroduodenoscopy (EGD) S/P ERCP S/P laparoscopic cholecystectomy Social History household members: children Smoking Status: Current every day smoker tobacco type: cigarettes substance use type: does not use ROS ROS ED ROS Narrative Nausea, loose stools lower abdominal pain. Review of Systems ROS Unobtainable: Denies due to encephalopathy Constitutional Constitutional ED: Denies chills or fever(s) ENT ENT ED: Denies ear pain Cardiovascular Cardiovascular: Denies chest pain Respiratory/Chest Respiratory/Chest: Denies cough or dyspnea Gastrointestinal Gastrointestinal: Reports abdominal pain, diarrhea and nausea; Denies constipation, melena or vomiting Genitourinary Genitourinary ED: Denies dysuria or hematuria Musculoskeletal Musculoskeletal: Denies arthralgias or back pain Integumentary Denies abscess Neurologic Neurologic: Denies headache(s) Psychiatric Psychiatric: Denies anxiety Endocrine Endocrinology: Denies polydipsia Hematologic/Lymphatic Hematologic/Lymphatic: Denies easy bleeding Allergic/Immunologic Allergic/Immunologic ED: Denies mouth swelling EXAM Physical Exam Narrative Exam Narrative: Well-appearing 37-year-old female. Vital signs stable afebrile. HEENT exam unremarkable. Moist extremities. Neck nontender. No lymphadenopathy. Lungs clear to auscultation bilaterally. Heart regular rhythm rate about 90 no murmur. Abdomen soft, nondistended normal bowel sounds no peritoneal signs. Mild tenderness both right and left lower quadrants. No hernia or mass. No distention. Moving all 4 extremities. Nontender. No edema. Normal strength. Neurologically she is awake and alert with no focal motor deficits. Const Vital Signs: 11/23/22 12:01 Temperature 97.9 F Temperature Source Temporal Pulse Rate 96 Respiratory Rate 14 Blood Pressure 128/87 H Blood Pressure Mean 100 Pulse Ox 99 Oxygen Delivery Method Room Air Positive well nourished and well developed; Negative for obese, cachectic, contractures or unkempt General Appearance ED: well developed and NAD; Negative for unkempt, cachectic, contractures or pallor Nutritional Appearance: Negative for cachectic or obese HEENT Reports moist mucous membranes normocephalic and atraumatic; Negative for trauma or tenderness Eyes PERRL and EOMs intact bilaterally General Eye ED: Negative for pale conjunctiva or scleral icterus Neck no lymphadenopathy, supple and no JVD General: Negative for tenderness Carotids: Negative for other Lymph Lymphatic: Negative for other Resp normal respiratory effort and clear to auscultation bilaterally Effort and Inspection: Negative for respiratory distress Auscultation: Negative for rales, rhonchi or wheezes Cardio regular rate, regular rhythm, S1 normal heart sound, S2 normal heart sound and no murmurs Rate: Negative for bradycardia or tachycardic Rhythm: Negative for abnormal rhythm GI non-distended and no masses; Negative for non-tender Inspection: Negative for abdominal distention Auscultation: normoactive bowel sounds Palpation: soft and tender; Negative for guarding, rigid, hepatomegaly, splenomegaly, hernia, mass, pulsatile mass or rebound tenderness present Back/Spine no CVA tenderness General Back: Negative for CVA tenderness Cervical Spine: Negative for cervical spine tenderness Thoracic Spine / Upper Back: Negative for thoracic spinal tenderness Lumbar Spine / Lower Back: Negative for lumbar spinal tenderness Coccyx: Negative for other Extremity full ROM General Extremety ED: Negative for edema or tenderness General Extremity: Negative for edema Neuro CN's II-XII intact bilaterally and moves all extremities Sensorium / Orientation: alert, oriented to person, oriented to place and oriented to time; Negative for orientation impaired, confused, lethargic or stuporous Motor Exam: strength 5/5 throughout Psych mental status grossly normal and thought process normal Appearance: Negative for unkempt Attitude: No agitated Mood & Affect: Negative for depressed, anxious or tearful Skin no wounds General Skin Exam: Negative for jaundice or pallor Lesions: no lesions Rashes: no rashes Trauma: Negative for abrasion Nails: Negative for discolored MDM MDM MDM Narrative Medical decision making narrative: 29-year-old female with lower abdominal pain bilaterally. History of Crohn's. CAT scan labs are being obtained. Most likely a Crohn's flare. She has no urinary symptoms so feel that is less likely. She had a normal menstrual period2 weeks ago. Still has her appendix and months old yet this is appendicitis. She also be treated IV fluids, Zofran for nausea and morphine for pain. Repeat exam at 1:38 PM patient is doing well. She and I went over her test results. CAT scan shows all inflammation of her sigmoid colon. I spoke to her firearms inspector, Dr. Ojeda. He and I discussed her treatment plan. She will be discharged home. Cipro daily. Flagyl 3 times a day. Prednisone 40 mg a day for 2 weeks. Vicodin for pain. Call his office for follow-up. Return ifworse. History & Record Review Discussion w/independent historian: Patient Lab Data Attestation: I reviewed the patient's lab results. Lab results narrative: CBC shows a white count of 6. H&H 12.6 and 37. Platelets 380. Electrolytes show a gap of 7. Normal BUN and creatinine is 0.9. Liver enzymes are normal. Serum test is negative. Urinalysis normal. No white or red cells. No bacteria nor nitrates. Labs: Laboratory Results - last 24 hr 11/23/22 11/23/22 12:47 13:25 WBC 6.0 RBC 4.05 L Hgb 12.6 Hct 37.5 MCV 92.6 MCH 31.1 MCHC 33.6 RDW Std Deviation 43.8 RDW Coeff of Kim 12.8 Plt Count 380 MPV 9.1 Immature Gran % (Auto) 0.300 Neut % (Auto) 47.1 Lymph % (Auto) 42.0 H [place] % (Auto) 8.4 Eos % (Auto) 1.7 Baso % (Auto) 0.5 Absolute Neuts (auto) 2.8 Absolute Lymphs (auto) 2.51 Nucleated RBC % 0 Sodium 139 Potassium 3.5 Chloride 108 H Carbon Dioxide 24.0 Anion Gap 7 BUN 8 Creatinine 0.95 Estim Creat Clear Calc 66.42 Est GFR (MDRD) Af Amer 84 Est GFR (MDRD) Non-Af 69 BUN/Creatinine Ratio 8.4 L Glucose 83 Calcium 8.9 Total Bilirubin 0.30 AST 14 L ALT 31 Alkaline Phosphatase 75 Total Protein 7.3 Albumin 3.7 Globulin 3.6 Albumin/Globulin Ratio 1.0 Serum , Qual NEGATIVE Urine Color Yellow Urine Clarity Clear Urine pH 6.0 Ur Specific [place] 1.010 Urine Protein Negative Urine Glucose (UA) Normal Urine Ketones Negative Urine Occult Blood Negative Urine Nitrite Negative Urine Bilirubin Negative Urine Urobilinogen Normal Ur Leukocyte Esterase Negative Urine RBC 0 SEEN Urine WBC 0 SEEN Ur Squamous Epith Cells 0 SEEN Urine Bacteria 0 SEEN Urine Mucus 0 SEEN Radiography Diagnostic Testing: Clinical Impression(s) from Imaging Studies Abdomen/Pelvis CT 11/23/22 12:33 IMPRESSION: 1. Status post common bile duct stent placement in stable position. 2. Mild pneumobilia. 3. Thickening of the rectosigmoid colon likely due to underdistention. Colitis cannot be excluded. 4. Mild free fluid in the pelvis. Electronically Signed: Tony Goldstein MD at 13:33 EDT , Discharge Plan Triage Chief Complaint: Abd Pain ED Provider: Marquise Solares Dx/Rx/DC Orders Clinical Impression: Crohn's disease Instructions: Crohns Disease Dc Prescriptions: New hydrocodone-acetaminophen 5-300 mg tablet 1 tab PO Q6H PRN (Reason: pain) 3 Days Qty: 14 0RF prednisone 20 mg tablet 40 mg PO DAILY 14 Days Qty: 28 0RF ciprofloxacin HCl [Cipro] 500 mg tablet 500 mg PO DAILY 10 Days Qty: 10 0RF metronidazole 500 mg tablet 500 mg PO Q8H 10 Days Qty: 30 0RF No Action hydroxyzine pamoate 25 mg capsule 25 mg PO QHS escitalopram oxalate [Lexapro] 20 mg tablet 20 mg PO DAILY lamotrigine [Lamictal] 100 mg tablet 200 mg PO DAILY promethazine [promethazine] 25 mg tablet 25 mg PO Q6H PRN PRN (Reason: Nausea) Qty: 10 0RF dicyclomine 20 mg tablet 20 mg PO TID Qty: 14 0RF lisinopril 30 mg Tablet 30 mg PO DAILY albuterol sulfate [Ventolin HFA] 90 mcg/actuation Hfa Aerosol Inhaler 1 inh INHALATION Q6H PRN (Reason: ASTHMA) hydrocodone-acetaminophen 5-325 mg tablet 1 - 2 tab PO Q4H PRN (Reason: pain) 5 Days Qty: 20 0RF scopolamine base 1 mg over 3 days patch 3 day 1 patch transdermal Q3D Qty: 10 3RF Stelara 90 mg/mL syringe 90 mg subcut Q8W Qty: 1 5RF Rx Instructions: Crohn's Primary Care Provider: Michelle Grimm NP Referrals: Friend,DO Kenn [Med Staff - Active Staff] - 1 Week Michelle Grimm NP, MICROBIOLOGY INSTRUCTOR-C [Primary Care Provider] - Activity Restrictions/Additional Instructions: Follow-up with Dr. Ojeda within the next week. Vicodin for pain. Cipro 1 pill a day for 10 days. Discussed Flagyl 1 pill 3 times a day. Prednisone 40 mg a day for 2 weeks. Plenty of fluids and rest. Return if feeling worse. Disposition Disposition: Home, Self Care What to do if you have Problems For any increased pain, shortness of breath, bleeding, nausea or vomiting, chestpain, or any unexpected problems, contact your Primary Care Provider. Call [facility] ([phone]) or report to the closest Emergency Room. Call 911 if necessary. 11/23/22 1533 <Electronically signed by Marquise Solares MD> Cosigner Signature (if applicable): CC: ARCHIE-Hardik Martinez Podlogar ~ Signed [facility] Work Phone: 1(670) 369-827106-29-2023 Miscellaneous Notes* Telephone Encounter - Audrey Song Ma - 11/07/2022 12:14 PM EDT Last office visit: 06/17/22 F/u scheduled: 12/16/22 Audrey Song Ma documented in this encounterUniversity [facility]06-29-2023 Miscellaneous Notes* Telephone Encounter - Audrey Song Ma - 11/07/2022 12:11 PM EDT Lisinopril was refilled on 10/08/22 #90 with 1 additional refill to Chris Schwartz. Pt notified via Intradiemt to check with pharmacy. documented in this encounterUniversity Hospitals [facility]06-17-[address] Andrade [facility] October 26, 2022 8:36am Note Date/Time October 26, 2022 8:36 am [facility] Medical Records Department [address] [place] [address] Progress Note - Surgery 10/26/22 0834 MR#: [id number] Acct: [id number] Name: IRVIN TAN Rep #:[id number] : 1985 37 From: Cheri Andrade MD PCP: Michelle Grimm, MICROBIOLOGY INSTRUCTOR-C Status:ADM I NO Location: MS3 XM976-5 Subjective Subjective Patient has a little bit nausea this morning question if it could be due to the morphine. Patient did get some antinausea meds as well as a Vicodin. Patient is having pain at the incision sites controlled with meds. Objective Data Objective Data Vital Signs: Vital Signs Temp Pulse Resp BP Pulse Ox O2 Del Method 97.9 F 56 L 15 119/87 H 97 Room Air 10/26/22 03:01 10/26/22 03:01 10/26/22 03:01 10/26/22 03:01 10/26/22 03:01 10/26/22 03:01 Oxygen Delivery Method Room Air Weight: 182 lb 12.211 oz Body Mass Index (BMI) 32.3 Intake & Output: Intake and Output for Last 24 Hours 10/24/22 10/25/22 10/26/22 23:59 23:59 23:59 Intake Total 1157.75 / 1532.75 1458 / 1458 Output Total 450 / 450 Balance 1157.75 / 1282.75 1008 / 1008 Lab / Micro Data Result Diagrams: 10/26/22 07:15 10/26/22 07:15 Labs: Laboratory Results - last 24 hr 10/25/22 10:50: Urine Test Negative 10/26/22 07:15: WBC 7.5, RBC 3.85 L, Hgb 12.0, Hct 35.5 L, MCV 92.2, MCH 31.2, MCHC 33.8, RDW Std Deviation 44.5 H, RDW Coeff of Kim 13.2, Plt Count 343, MPV 9.8, Immature Gran % (Auto) 0.300, Neut % (Auto) 72.2 H, Lymph % (Auto) 18.1 L, [place] % (Auto) 9.4, Eos % (Auto) 0.0, Baso % (Auto) 0.0, Absolute Neuts (auto) 5.4, Absolute Lymphs (auto) 1.36, Nucleated RBC % 0 10/26/22 07:15: Sodium 138, Potassium 3.6, Chloride 108 H, Carbon Dioxide 23.0, Anion Gap 7, BUN 7, Creatinine 0.91, Estim Creat Clear Calc 69.34, Est GFR (MDRD) Af Amer 88, Est GFR (MDRD) Non-Af 73, BUN/Creatinine Ratio 7.7 L, [id number] H, Calcium 8.9, Total Bilirubin 0.30, AST 28, ALT 50, Alkaline Phosphatase 79, Total Protein 6.6, Albumin 3.2, Globulin 3.4, Albumin/Globulin Ratio 0.9, Lipase 18 Radiography Diagnostic Testing: Radiology Impression Cholangiogram 10/25/22 11:45 IMPRESSION: Dilated common bile duct with retained calculus in its distal portion. Reflux contrast into the duodenum. Electronically Signed: Joshua Houston MD at 14:39 EDT , Physical Exam Resp normal respiratory effort Cardio regular rate GI GI Narrative: Abdomen: Soft, nondistended, tender near incision's dressed clean dry and intact, no peritoneal signs Assessment & Plan Assessment/Plan (1) S/P laparoscopic cholecystectomy: (2) S/P ERCP: PLAN: Plan Patient is having a little bit nausea, if this improves and she is able to tolerate diet okay to DC home. Cheri Andrade M.D. Pager: [phone] [facility] [address] [place] [address], [address] [place] [address] Office: [phone] 10/26/22 0836 <Electronically signed by Cheri Andrade MD> Cosigner Signature (if applicable): CC: ~ Signed [facility] Work Phone: 1(689) 384-250206-16-2023 Consult note Author Kenn Friend [facility] October 25, 2022 5:42pm Note Date/Time October 25, 2022 5:42 pm [facility] Medical Records Department [address] [place], [place] [id number] Consultation - GI 10/25/22 1230 MR#: [id number] Acct: [id number] Name: IRVIN TAN Rep #:[id number] : 1985 37 From: Kenn Friend DO PCP: SIXTO Calix Status:ADM I NO [place] [facility] HPI Consult Data Date of Consult: 10/25/22 HPI Narrative Reason for Consultation: choledocholithiasis HPI Narrative: IRVIN TAN, is a 37 F who presents from an outside hospital with abdominalpain. She has past medical history of marijuana hyperemesis and Crohn's these on Stelara therapy. She did undergo an ultrasound at outside hospital so multiple stones in her gallbladder. She was transferred here for cholecystitis under the care of Dr. Zeke Rascon. She underwent an elective cholecystectomy today. During her Intra-Op cholangiogram she was discovered to have multiple stones in her distal common bile duct. I was consulted for ERCP with stone removal. PFSH Medical History Anemia Anxiety Asthma Bipolar 1 disorder Depression Heartburn History of blood transfusion History of Crohn's disease Hypertension Low iron Marijuana use Migraine headache Smoker Home Medications escitalopram oxalate 20 mg tablet (Lexapro) 20 mg PO DAILY 08/15/21 [History Last Taken Unknown] hydroxyzine pamoate 25 mg capsule 25 mg PO QHS 08/15/21 [History Last Taken Unknown] lamotrigine 100 mg tablet (Lamictal) 200 mg PO DAILY 08/15/21 [History Last Taken Unknown] promethazine 25 mg tablet 25 mg PO Q6H PRN PRN Nausea #10 TABLETS 05/23/22 [Rx Last Taken Unknown] dicyclomine 20 mg tablet 20 mg PO TID #14 tabs 07/30/22 [Rx Last Taken Unknown] scopolamine base 1 mg over 3 days transdermal patch 1 patch transdermal Q3D #10 ea 09/23/22 [Rx Last Taken Unknown] ustekinumab 90 mg/mL subcutaneous syringe (Stelara) 90 mg subcut Q8W #1 mL 09/30/22 [Rx Last Taken Unknown] albuterol sulfate 90 mcg/actuation aerosol inhaler (Ventolin HFA) 1 inh inhalation Q6H PRN ASTHMA 10/24/22 [History Last Taken Unknown] lisinopril 30 mg tablet 30 mg PO DAILY 10/24/22 [History Last Taken Unknown] hydrocodone-acetaminophen 5-325mg 5mg-325mg 1 - 2 tab PO Q4H PRN pain 5 days #20tabs 10/25/22 [Rx Last Taken Unknown] Allergy/AdvReac Type Severity Reaction Status Date / Time amoxicillin Allergy Rash Verified 10/25/22 10:56 tramadol Allergy Rash Verified 10/25/22 10:56 Family History Mother Mental disorder Surgical History (Updated 10/24/22 @ 09:24 by Rosa Chowdhury) History of esophagogastroduodenoscopy (EGD) Social History household members: children Smoking Status: Current every day smoker tobacco type: cigarettes substance use type: does not use ROS Review of Systems ROS Unobtainable: other Constitutional Constitutional: Denies fatigue, fever(s), poor appetite, weight gain or weight loss ENT HEENT: Denies mouth lesions Cardiovascular Cardiovascular: Denies abdominal bloating, abdominal edema or abdominal pain Respiratory/Chest Respiratory/Chest: Denies change in mental status, change in phlegm color, chestcongestion or chest tightness Gastrointestinal Gastrointestinal: Denies belching, bloating, change in bowel habits, change in stool character, chewing difficulty, coffee ground emesis, constipation, cramping, diarrhea, dyspepsia, dysphagia, early satiety, excessive flatus, fecalincontinence, heartburn, hematemesis, hematochezia, hemorrhoids, loose stools, melena, nausea, odynophagia, rectal bleeding, tenesmus, vomiting or weight changes Genitourinary Genitourinary: Denies abdominal discomfort, burning urination or itching Musculoskeletal Musculoskeletal: Reports as per HPI; Denies muscle weakness or myalgias Integumentary Integumentary: Denies jaundice Neurologic Neurologic: Denies lack of coordination or weakness Psychiatric Psychiatric: Denies confusion, depression, memory loss, mood swings, paranoia orsuicidal ideation Endocrine Endocrinology: Denies systems reviewed and no addt'l complaints, except as documented Hematologic/Lymphatic Hematologic/Lymphatic: Denies anemia, easy bleeding, easy bruising or lymphadenopathy Allergic/Immunologic Allergic/Immunologic: Denies systems reviewed and no addt'l complaints, except as documented Physical Exam Const alert General Appearance: cooperative Orientation / Consciousness: oriented to person HEENT hearing grossly normal bilaterally Head and Scalp: normal to inspection Face and Sinus: face symmetric Nose: external nose normal Mouth: oral and palatal mucosa normal Eyes conjunctivae normal General Eye: normal appearance of both eyes Neck full ROM General: normal visual inspection Lymph Lymphatic: no lymphadenopathy noted Chest inspection of chest normal and palpation of chest normal Chest: symmetrical chest wall rise Resp normal respiratory effort Effort and Inspection: able to speak in complete sentences Cardio regular rate GI non-distended Percussion: normal to percussion Rectal Exam: deferred Neuro Speech: speech normal Gait (Neuro): normal gait Lab / Micro Data Labs: Laboratory Results - last 24 hr 10/25/22 10:50: Urine Test Negative Radiology Impression Cholangiogram 10/25/22 11:45 IMPRESSION: Dilated common bile duct with retained calculus in its distal portion. Reflux contrast into the duodenum. Electronically Signed: Joshua Houston MD at 14:39 EDT , Assessment & Plan Assessment/Plan (1) Hx of Crohn's disease: (2) Cholecystitis: (3) Choledocholithiasis: PLAN: Plan 37-year-old comes in with acute abdominal pain from outside hospital for continued evaluation and treatment of cholecystitis. She underwent elective laparoscopic cholecystectomy without any problems. She underwent intraoperativecholangiogram was discovered to have multiple stones in her common bile duct. Iwas consulted for an ERCP. She will undergo ERCP was explained alternatives, risk, benefits include not withstanding bleeding, infection, sepsis, perforation, need for emergent surgery . She will have an ASA of 2. Charges/Coding Visit Charges Inpatient E&M: 11473 Init Hosp L2 10/25/22 1742 <Electronically signed by Kenn Friend DO> Cosigner Signature (if applicable): CC: SIXTO Martinez Podlogar; Dr. Zeke Rascon MD~ Signed [facility] Work Phone: 1(859) 340-205506-16-2023 Procedure [facility] 10-25-2022 Procedure [facility]06-16-[address] Rascon [facility] October 25, 2022 12:58pm Note Date/Time October 25, 2022 12:5 8pm [facility] Medical Records Department [address] [place] [address] Instructions for Home/Discharge Instructions 10/25/22 1257 MR#: [id number] Acct: [id number] Name: IRVIN TAN Rep #:[id number] : 1985 37 From: Zeke stewart MD PCP: Michelle Grimm MICROBIOLOGY INSTRUCTOR-C Status:REG S DC Discharge Instructions Procedure Gallbladder Diet Discharge Diet: Light diet - advance as tolerated Activity Discharge Activity: May Not Drive (for 2-3 days or while taking narcotic pain medications.) and - (Do not drive, work heavy equipment or sign legal documents for 24 hours.) May shower in (days): 1 Lifting Restrictions: 20 lbs for 2 weeks Additional Activity Instructions:: Pain medication may cause nausea. You should typically eat light foods as you take your pain medications. Pain medication may also cause constipation. If this is a problem for you, please discuss with your doctor. Dressing / Incision Call your doctor if your incision/area has: Continuous Slow Oozing, Sudden Increased Bleeding, Increased Pain/ Swelling, Increased Redness and Foul Smelling Discharge Call your doctor if you observe: Fever of 101 or Higher Suture Line Care: Avoid Pulling/Pushing and Avoid Pinching/Bending Remove Dressing in: 2 days Additional Dressing/Incision Instructions:: Leave operative bandaids on for 2 days. When you remove dressing, leave Steri-Strips on until your follow-up appointment, or until the Steri-Strips fall off on their own. Follow Up Care Please Follow Up With: Zeke Rascon MD When: Please call to schedule 2 week follow up appointment. [phone] Test Results: Test results from this visit will be discussed in further detail at your follow- up appointment, if applicable. Discharge Plan Admission Attending Provider: Zeke Rascon Primary Care Provider: Michelle Grimm NP Discharge Orders/Prescriptions Prescriptions: New hydrocodone-acetaminophen 5-325 mg tablet 1 - 2 tab PO Q4H PRN (Reason: pain) 5 Days Qty: 20 0RF No Action hydroxyzine pamoate 25 mg capsule 25 mg PO QHS escitalopram oxalate [Lexapro] 20 mg tablet 20 mg PO DAILY lamotrigine [Lamictal] 100 mg tablet 200 mg PO DAILY promethazine [promethazine] 25 mg tablet 25 mg PO Q6H PRN PRN (Reason: Nausea) Qty: 10 0RF dicyclomine 20 mg tablet 20 mg PO TID Qty: 14 0RF lisinopril 30 mg Tablet 30 mg PO DAILY albuterol sulfate [Ventolin HFA] 90 mcg/actuation Hfa Aerosol Inhaler 1 inh INHALATION Q6H PRN (Reason: ASTHMA) scopolamine base 1 mg over 3 days patch 3 day 1 patch transdermal Q3D Qty: 10 3RF Stelara 90 mg/mL syringe 90 mg subcut Q8W Qty: 1 5RF Rx Instructions: Crohn's Referrals / Follow Up: Michelle Grimm NP, NP-C [Primary Care Provider] - Disposition Disposition (needs filled in before D/C Order can be placed): Home, Self Care 10/25/22 1258<Electronically signed by Zeke Rascon MD>Zeke Rascon MD CC: MICROBIOLOGY INSTRUCTOR-C Michelle Grimm ~ Signed [facility] Work Phone: 1(231) 610-331506-16-[address] Rascon [facility] October 25, 2022 12:51pm Note Date/Time October 25, 2022 12:5 1pm [facility] Medical Records Department [address] [place] [id number] Progress Note 10/25/22 1249 MR#: [id number] Acct: [id number] Name: IRVIN TAN Rep #:[id number] : 1985 37 From: Zeke stewart MD PCP: SIXTO Calix Status:REG S DC Location: [place]3 MA238-4 Progress Note Patient had laparoscopic cholecystectomy. She was found to have choledocholithiasis on intraoperative cholangiogram. I consulted Dr. Lynette Nicole. He will see the patient and do an ERCP this afternoon. I discussed this with the patient. I discussed the procedure as well as the risks and benefits with the patient and the patient's partner. As the patient has had anesthesia today and does not have a POA, Friend and I will cosign her consent in her best interest but she does understand the procedure and agree to proceed. I will admit the patient after ERCP for observation overnight and likely dischargetomorrow morning. Zeke Rascon MD Pager: [facility] [address] [place] [address], [address] [place] [address] Office: 10/25/22 1251 <Electronically signed by Zeke Rascon MD> Zeke Rascon MD Cosigner Signature (if applicable): CC: ~ Signed [facility] Work Phone: 1(560) 401-600106-16-2023 History and physical note Author Dr. Rascon [facility] October 25, 2022 10:45am Note Date/Time October 25, 2022 10:4 5am [facility] Medical Records Department [address] [place] [id number] History & Physical Exam 10/25/22 1045 MR#: [id number] Acct: [id number] Name: IRVIN TAN Rep #:[id number] : 1985 37 From: Zeke stewart MD PCP: Michelle Grimm NP-Hardik Status:REG S DC Location: [place] [address] History and Physical Date of Admission: 10/25/22 Intake Vital Signs ? 10/18/2313:26 10/23/2314:22 Height 5 ft 3 in 5 ft 3 in Weight: 189 lb 3 oz 186 lb BMI 33.5 32.9 BP 149/96 H 130/87 H Blood Pressure Location ? Rt brachial Position ? Sitting Respiration 100 H 19 H Pulse ? 79 Pulse Source ? Monitor Temp 98 F ? Temp Source Temporal Temporal Pulse Oximetry (%) 16 99 Intake Visit Reasons:?GALLBLADDER ER 10/18 Chief Complaint: gallbladder consult Allergies amoxicillin Allergy (Verified 10/23/22 15:24) Rashtramadol Allergy (Verified 10/23/22 15:24) Rash Medications escitalopram oxalate 20 mg tablet (Lexapro) 20 mg PO DAILY 08/15/21 [History Confirmed 10/23/22] hydroxyzine pamoate 25 mg capsule 25 mg PO QHS 08/15/21 [History Confirmed 10/23/22] lamotrigine 100 mg tablet (Lamictal) 200 mg PO DAILY 08/15/21 [History Confirmed 10/23/22] promethazine 25 mg tablet 25 mg PO Q6H PRN PRN Nausea #10 TABLETS 05/23/22 [Rx Confirmed 10/23/22] ondansetron 4 mg disintegrating tablet 4 mg PO Q8H PRN PRN Nausea #10 tabs 07/13/22 [Rx Confirmed 10/23/22] dicyclomine 20 mg tablet 20 mg PO TID #14 tabs 07/30/22 [Rx Confirmed 10/23/22] ondansetron 4 mg disintegrating tablet 4 mg PO Q8H PRN PRN Nausea #14 tabs 08/11/22 [Rx Confirmed 10/23/22] hyoscyamine sulfate 0.125 mg sublingual tablet 0.25 mg PO Q4H PRN abdominal cramping #30 tabs 08/12/22 [Rx Confirmed 10/23/22] ondansetron 4 mg disintegrating tablet 4 mg PO Q8H PRN PRN Nausea #10 tabs 09/02/22 [Rx Confirmed 10/23/22] prednisone 50 mg tablet 50 mg PO DAILY 5 days #5 tabs 09/02/22 [Rx Confirmed 10/23/22] scopolamine base 1 mg over 3 days transdermal patch 1 patch transdermal Q3D #10 ea 09/23/22 [Rx Confirmed 10/23/22] ustekinumab 90 mg/mL subcutaneous syringe (Stelara) 90 mg subcut Q8W #1 mL 09/30/22 [Rx Confirmed 10/23/22] hydrocodone-acetaminophen 5-325mg 5mg-325mg 1 tab PO Q6H PRN PRN Pain 2 days #6 TABLETS 10/18/22 [Rx Confirmed 10/23/22] PFSH Medical History Acute Crohn's disease Anxiety Back problem Bipolar 1 disorder Depression History of blood transfusion Marijuana use Restless legs Smoker Surgical History? Tubal ligation status Family History? Mother Mental disorder Social History? household members:? children Smoking Status:? Current every day smoker tobacco type: cigarettes substance use type:? does not use HPI HPI HPI: Patient was recently admitted to an outside hospital with acute cholecystitis.? She was sent home and asked to follow-up with a surgeon so she comes in today.? She says she was tolerating a diet the day of discharge but now she has been throwing up for 3 days.? She says the pain is in her right upper quadrant. ROS General General: Yes weight change and fatigue; No appetite, colon cancer, breast cancer or weakness HEENT HEENT: No difficulty swallowing, eye injury, eye surgery, swollen glands or hoarseness Endo Endocrine: No thyroid disease, diabetes mellitus, thyroid cancer, Hair loss, heat intolerance or cold intolerance Skin Skin: No rash or changing moles Breast Breast: No left breast lump, right breast lump, nipple discharge, breast pain, abnormal mammogram, abnormal US or breast enlargement Musc Musculoskeletal: No back problems, arthritis, rheumatoid arthritis, gout or joint pain Cardio Cardiovascular: No murmur, pacemaker, heart disease, atrial fibrillation, high blood pressure, heart attack, heart stent, palpitations, shortness of breat withexertion or chest pain Psych Psychiatric: Yes depression and anxiety; No hearing voices Resp Respiratory: No shortness of breath, No sleep apnea, No cough, No COPD, Yes asthma, No emphysema and No wheezing Gastro Gastrointestinal: Yes abdominal pain, Yes nausea or vomiting, No diarrhea, No constipation, No blood in stool, No acid reflux, No hemorrhoids, No ulcers, Yes gallbladder problem and No black,tarry stools Adonis Hematologic: No blood thinners, No blood disorders, No bleeding, No anemia and No blood clots Neuro Neurologic: No system reviewed and no additional complaints, except as documented, No as per HPI, No abnormal gait, No abnormal hearing, No abnormal movements, No abnormal speech, No behavioral changes, No burning sensations, No confusion, No convulsions, No disequilibrium, No dizziness, No localized weakness, No frequent falls, No headache(s), No lack of coordination, No loss ofvision, No memory loss, No numbness, No other visual disturbances, No radicular pain, No restless legs, No sensory deficit, No syncope, No tingling, No tremor(s), No weakness and No other Exam Const General: cooperative Orientation: alert and oriented x3 HENMT Head: normal to inspection Neck Neck: normal visual inspection and full ROM Chest Chest palpation & inspection: normal inspection of the chest Resp Effort & Inspection: normal respiratory effort Auscultation: clear to auscultation bilaterally Cardio Rate: regular rate Rhythm: regular rhythm GI Inspection: non-distended Palpation: soft and tender in the RUQ Skin General: no rashes or lesions noted Neuro General: patient alert and patient oriented x3 Extrem General: full ROM Psych Appearance: grossly normal Mental Status: mental status grossly normal Assessment and Plan Assessment and Plan (1) Cholelithiasis: ?Status:?Acute ?Qualifiers: ?Cholelithiasis location:?gallbladder??Cholecystitis presence:?with cholecystitis??Biliary obstruction:?without biliary obstruction (2) Colicky right upper quadrant pain: ?Status:?Acute Plan Patient is having right upper quadrant pain and she did have a recent ultrasoundthat showed cholelithiasis.? She likely had acute cholecystitis and still has chronic cholecystitis.? The patient should have laparoscopic cholecystectomy.? Iadvised her and schedule her for surgery later this week.? If she has any worsening before then she can come to the emergency room and I will do her surgery emergently.? I discussed laparoscopic cholecystectomy with her in detail.? I discussed the procedure in detail with the patient.? I discussed the risks, benefits, and alternatives of the procedure.? I discussed the risks including but not limited to bleeding, infection, injury to surrounding organs such as the liver, bile duct, bowels.? I did discuss the possibility of having to convert to an open procedure as well as the possibility that if any injuries occurred this may necessitate further surgery at a tertiary care center. Zeke Rascon MD Pager: [facility] [address] [place] [address], [address] [place] [address] Office: I have examined the patient and the H&P has been reviewed. There are no clinicalchanges since date of exam. 10/25/22 1045 <Electronically signed by Zeke Rascon MD> Cosigner Signature (if applicable): CC: MICROBIOLOGY INSTRUCTOR-C Michelle Grimm; Dr. Zeke Rascon MD~ Signed [facility] Work Phone: 1(505) 418-170106-09-[address] Kaiser [facility] October 18, 2022 5:09pm Note Date/Time October 18, 2022 4:16p m [facility] Medical Records Department [address] [place] [address] Emergency Department Summary 10/18/22 MR#: [id number] Acct: [id number] Name: IRVIN TAN Rep #:[id number] : 1985 37 From: Garret Kaiser MD PCP: Michelle Grimm, MICROBIOLOGY INSTRUCTOR-C Status:REG E R Location: ED HPI History of Present Illness Chief Complaint: Abd Pain Detail of Chief Complaint: Right upper quadrant pain radiating through to her back Informant: patient Onset/Context/Timing Onset: Today (This morning after eating breakfast which consisted of eggs and toast with jelly) Context: Sudden Onset Timing: Continuous and Waxes and wanes Quality: Crampy Location: Right upper quadrant upper gastro Current Severity: Mild Maximum Severity: Severe Worsened by: Movement and palpation Relieved by: Nothing Associated Symptoms Associated Symptoms: Nausea and radiation to the back Narrative Narrative: Patient is a 37-year-old woman with a BMI of 33.5 who presents with right upper quadrant pain rating to her back and epigastric pain that started this morning after eating breakfast. She did not eat lunch. She does report nausea without vomiting diarrhea. She denies fever, chills or night sweats. Denies weight gain or weight loss. She denies headache, visual, ocular auditory symptoms. Denies rhinorrhea, congestion, sore throat or cough. She denies chest discomfort. She denies black or maroon-colored stool. She does admit to smoking, drinking and marijuana use. She states she only usesa little bit of marijuana . Review of prior records indicates patient's been in the emergency department for cannabis hyperemesis syndrome. Patient was seenon August of this year and diagnosed with cholelithiasis. She states she was nottaken to the OR because it was concerned she had mono. Review of records indicates that she did not have a Monospot and there was no atypical lymphs noted on the CBC. Patient denies dysuria, frequency, urgency or hematuria. Patient denies anorexia. Patient denies history of renal or ureteral calculi. There is no history of. Prior similar symptoms: Yes Recent Illness/Hospitalization: No PFSH PFSH Medical History Acute Crohn's disease Anxiety Back problem Bipolar 1 disorder Depression History of blood transfusion Marijuana use Restless legs Smoker Home Medications escitalopram oxalate 20 mg tablet (Lexapro) 20 mg PO DAILY 08/15/21 [History Last Taken Unknown] hydroxyzine pamoate 25 mg capsule 25 mg PO QHS 08/15/21 [History Last Taken Unknown] lamotrigine 100 mg tablet (Lamictal) 200 mg PO DAILY 08/15/21 [History Last Taken Unknown] promethazine 25 mg tablet 25 mg PO Q6H PRN PRN Nausea #10 TABLETS 05/23/22 [Rx Last Taken Unknown] ondansetron 4 mg disintegrating tablet 4 mg PO Q8H PRN PRN Nausea #10 tabs 07/13/22 [Rx Last Taken Unknown] dicyclomine 20 mg tablet 20 mg PO TID #14 tabs 07/30/22 [Rx Last Taken Unknown] ondansetron 4 mg disintegrating tablet 4 mg PO Q8H PRN PRN Nausea #14 tabs 08/11/22 [Rx Last Taken Unknown] hyoscyamine sulfate 0.125 mg sublingual tablet 0.25 mg PO Q4H PRN abdominal cramping #30 tabs 08/12/22 [Rx Last Taken Unknown] ondansetron 4 mg disintegrating tablet 4 mg PO Q8H PRN PRN Nausea #10 tabs 09/02/22 [Rx Last Taken Unknown] prednisone 50 mg tablet 50 mg PO DAILY 5 days #5 tabs 09/02/22 [Rx Last Taken Unknown] scopolamine base 1 mg over 3 days transdermal patch 1 patch transdermal Q3D #10 ea 09/23/22 [Rx Last Taken Unknown] ustekinumab 90 mg/mL subcutaneous syringe (Stelara) 90 mg subcut Q8W #1 mL 09/30/22 [Rx Last Taken Unknown] hydrocodone-acetaminophen 5-325mg 5mg-325mg 1 tab PO Q6H PRN PRN Pain 2 days #6 TABLETS 10/18/22 [Rx Last Taken Unknown] Allergy/AdvReac Type Severity Reaction Status Date / Time amoxicillin Allergy Rash Verified 10/18/22 14:27 tramadol Allergy Rash Verified 10/18/22 14:27 Family History Mother Mental disorder Surgical History Tubal ligation status Social History household members: children Smoking Status: Current every day smoker tobacco type: cigarettes substance use type: does not use ROS ROS ED Constitutional Constitutional ED: Denies chills, fever(s), subjective, sweats or weight loss Eyes Eyes: Denies blurry vision, change in vision or diplopia ENT ENT ED: Denies ear pain, rhinorrhea or sore throat Cardiovascular Cardiovascular: Denies chest pain, orthopnea, palpitations, paroxysmal nocturnaldyspnea or racing heartbeat Respiratory/Chest Respiratory/Chest: Denies cough, dyspnea, dyspnea on exertion, orthopnea or paroxysmal nocturnal dyspnea Gastrointestinal Gastrointestinal: Reports abdominal pain and nausea; Denies constipation, diarrhea, melena or vomiting Genitourinary Genitourinary ED: Reports LMP (females 10-50) Details: Comment: (Approxi-1 monthago. Patient is sexually active but is sexually active with women only.); Denies dysuria, hematuria or urinary frequency Musculoskeletal Musculoskeletal: Reports back pain; Denies arthralgias, myalgias or neck pain Integumentary Denies rash Neurologic Neurologic: Denies headache(s), paresthesias or weakness Psychiatric Psychiatric: Denies anxiety or depression Endocrine Endocrinology: Denies cold intolerance or heat intolerance Hematologic/Lymphatic Hematologic/Lymphatic: Reports systems reviewed and no addt'l complaints, exceptas documented EXAM Physical Exam Const Vital Signs: 10/18/22 14:26 Temperature 98 F Temperature Source Temporal Respiratory Rate 100 H Blood Pressure 149/96 H Blood Pressure Mean 113 Pulse Ox 16 Oxygen Delivery Method Room Air Positive well nourished, well developed and obese Constitutional Narrative: Patient is lying on the left side. General Appearance ED: well developed; Negative for cyanotic, diaphoretic or pallor Nutritional Appearance: obese HEENT Reports moist mucous membranes HEENT Narrative: Head is atraumatic normocephalic. Ears are normal. Posterior pharynx is normal. Mucosa is moist. Eyes PERRL and EOMs intact bilaterally General Eye ED: Negative for pale conjunctiva or scleral icterus Neck no lymphadenopathy, supple and no JVD Resp normal respiratory effort and clear to auscultation bilaterally Cardio regular rate, regular rhythm, S1 normal heart sound, S2 normal heart sound and no murmurs GI normal to inspection, nondistended, normoactive bowel sounds, non-distended and no masses; Negative for non-tender or hepatosplenomegaly Auscultation: hypoactive bowel sounds Palpation: soft and tender RUQ and Smalls's sign; Negative for guarding, splenomegaly, mass or rebound tenderness present Back/Spine no CVA tenderness Extremity normal to inspection General Extremety ED: Negative for edema or tenderness General Extremity: Negative for edema Neuro oriented x3, CN's II-XII intact bilaterally and no sensory deficits noted Sensorium / Orientation: alert Psych Mood & Affect: depressed Skin no rashes or lesions noted, no wounds and skin turgor normal General Skin Exam: elasticity normal; Negative for jaundice or pallor MDM MDM MDM Narrative Medical decision making narrative: With documented cholelithiasis on ultrasound August of this year and right upper quadrant pain with clinical Smalls sign concern patient has possible cholecystitis. Will obtain blood work to assess liver enzymes, CBC/differential, electrolyte panel and lipase was ordered since she does admit to alcohol use. This also may be due to exacerbation of her Crohn's disease. She is followed by Dr. Ojeda for her Crohn's disease and had recent scope. Patient was treated with 4 mg of Zofran for her nausea and 4 mg of morphine for her pain. History & Record Review Additional record(s) reviewed:: Prior outpatient record, Prior ED visit and Prior labs Lab Data Attestation: I reviewed the patient's lab results. Lab results narrative: CBC and differential are markable. Patient does not slight lymphocyte comprehensive metabolic panel is remarkable elevation of AST. Alkaline phosphatase, total bili and ALT are normal. Lipase is pending. Per nurse triage he has protocol patient had a urine (which was negative. Urinalysis macro is positive for leukoesterase, mildly. Microscopic urinalysis is negative. Lipase is normal. Patient was resting comfortably in the room when she was informed of her results at the 1701. Plan is to discharge to home to follow-up with Dr. Zeke Rascon who she was referred to when diagnosed with cholelithiasis. Labs: Laboratory Results - last 24 hr 10/18/22 10/18/22 10/18/22 14:33 14:33 14:33 WBC 7.9 RBC 4.20 Hgb 13.0 Hct 38.7 MCV 92.1 MCH 31.0 MCHC 33.6 RDW Std Deviation 44.1 H RDW Coeff of Kim 13.2 Plt Count 391 MPV 9.2 Immature Gran % (Auto) 0.400 Neut % (Auto) 47.6 Lymph % (Auto) 42.5 H [place] % (Auto) 8.0 Eos % (Auto) 0.9 Baso % (Auto) 0.6 Absolute Neuts (auto) 3.8 Absolute Lymphs (auto) 3.36 Nucleated RBC % 0 Sodium 138 Potassium 3.7 Chloride 107 Carbon Dioxide 26.0 Anion Gap 5 BUN 12 Creatinine 1.01 Estim Creat Clear Calc 62.47 Est GFR (MDRD) Af Amer 79 Est GFR (MDRD) Non-Af 65 BUN/Creatinine Ratio 11.9 Glucose 104 Calcium 9.3 Total Bilirubin 0.20 AST 52 H ALT 42 Alkaline Phosphatase 108 Total Protein 7.4 Albumin 3.6 Globulin 3.8 Albumin/Globulin Ratio 0.9 Lipase Serum , Qual NEGATIVE Urine Color Urine Clarity Urine pH Ur Specific [place] Urine Protein Urine Glucose (UA) Urine Ketones Urine Occult Blood Urine Nitrite Urine Bilirubin Urine Urobilinogen Ur Leukocyte Esterase Urine RBC Urine WBC Ur Squamous Epith Cells Urine Bacteria Urine Mucus 10/18/22 10/18/22 14:35 15:47 WBC RBC Hgb Hct MCV MCH MCHC RDW Std Deviation RDW Coeff of Kim Plt Count MPV Immature Gran % (Auto) Neut % (Auto) Lymph % (Auto) [place] % (Auto) Eos % (Auto) Baso % (Auto) Absolute Neuts (auto) Absolute Lymphs (auto) Nucleated RBC % Sodium Potassium Chloride Carbon Dioxide Anion Gap BUN Creatinine Estim Creat Clear Calc Est GFR (MDRD) Af Amer Est GFR (MDRD) Non-Af BUN/Creatinine Ratio Glucose Calcium Total Bilirubin AST ALT Alkaline Phosphatase Total Protein Albumin Globulin Albumin/Globulin Ratio Lipase 24 Serum , Qual Urine Color Yellow Urine Clarity Sl. Cloudy Urine pH 6.0 Ur Specific [place] 1.015 Urine Protein Negative Urine Glucose (UA) Normal Urine Ketones Negative Urine Occult Blood Negative Urine Nitrite Negative Urine Bilirubin Negative Urine Urobilinogen Normal Ur Leukocyte Esterase 25 H Urine RBC 0 SEEN Urine WBC 0 SEEN Ur Squamous Epith Cells 0 SEEN Urine Bacteria 0 SEEN Urine Mucus 0 SEEN Discharge Plan Triage Chief Complaint: Abd Pain ED Provider: Garret Kaiser Dx/Rx/DC Orders Clinical Impression: Colicky right upper quadrant pain, Cholelithiasis, Hx of Crohn's disease, Cannabis use disorder Instructions: ED Gallstones with Biliary Colic Prescriptions: New hydrocodone-acetaminophen [hydrocodone-acetaminophen] 5-325 mg tablet 1 tab PO Q6H PRN PRN (Reason: Pain) 2 Days Qty: 6 0RF No Action hydroxyzine pamoate 25 mg capsule 25 mg PO QHS escitalopram oxalate [Lexapro] 20 mg tablet 20 mg PO DAILY lamotrigine [Lamictal] 100 mg tablet 200 mg PO DAILY promethazine [promethazine] 25 mg tablet 25 mg PO Q6H PRN PRN (Reason: Nausea) Qty: 10 0RF ondansetron [ondansetron] 4 mg tablet,disintegrating 4 mg PO Q8H PRN PRN (Reason: Nausea) Qty: 10 0RF dicyclomine 20 mg tablet 20 mg PO TID Qty: 14 0RF ondansetron 4 mg tablet,disintegrating 4 mg PO Q8H PRN PRN (Reason: Nausea) Qty: 14 0RF hyoscyamine sulfate 0.125 mg tablet, sublingual 0.25 mg PO Q4H PRN (Reason: abdominal cramping) Qty: 30 0RF prednisone 50 mg tablet 50 mg PO DAILY 5 Days Qty: 5 0RF ondansetron 4 mg tablet,disintegrating 4 mg PO Q8H PRN PRN (Reason: Nausea) Qty: 10 0RF scopolamine base 1 mg over 3 days patch 3 day 1 patch transdermal Q3D Qty: 10 3RF Stelara 90 mg/mL syringe 90 mg subcut Q8W Qty: 1 5RF Rx Instructions: Crohn's Primary Care Provider: Michelle Grimm NP Referrals: Zeke Rascon MD [Med Staff - Active Staff] - 1 Week Michelle Grimm NP, MICROBIOLOGY INSTRUCTOR-C [Primary Care Provider] - 5-7 Days Disposition Disposition: Home, Self Care What to do if you have Problems For any increased pain, shortness of breath, bleeding, nausea or vomiting, chestpain, or any unexpected problems, contact your Primary Care Provider. Call [facility] ([phone]) or report to the closest Emergency Room. Call 911 if necessary. 10/18/22 1709 <Electronically signed by Garret Kaiser MD> Cosigner Signature (if applicable): CC: SIXTO Grimm ~ Signed [facility] Work Phone: [phone]) 894-802205-30-2023 Miscellaneous Notes* Telephone Encounter - Candice Dale LPN - 10/08/2022 9:44 AM EDT Patient phones requesting refills as follows: Requested Prescriptions Pending Prescriptions Disp Refills dicyclomine (BENTYL) 20 mg tablet 90 tablet 5 Sig: Take 1 tablet by mouth three times daily. ANICETO 06/17/2022 12/16/2022 Please review and advise. Candice Dale LPN documented in this encounterUniversity [facility]als [facility]05-30-2023 Miscellaneous Notes* Telephone Encounter - Candice Dale LPN - 10/08/2022 9:40 AM EDT Patient phones requesting refills as follows: Requested Prescriptions Pending Prescriptions Disp Refills lisinopril (ZESTRIL) 10 mg tablet 90 tablet 1 Sig: Take 1 tablet by mouth once daily. ANICETO 06/17/2022 12/16/2022 Please review and advise. Candice Dale LPN documented in this encounterUniversity Hospitals [facility]05-15-2023 History of Present illness Narrative* Yu Castillo MD - 09/23/2022 11:58 AM EDT Patient presents with: Neck Pain: headache with [...] Wt 84.8 kg (187 lb) LMP 04/12/2022 [id number]% BMI 32.10 kg/m PHYSICAL EXAM: GEN: pleasant, [...] (primary diagnosis) Treat musculoskeletal neck pain with [id number] analgesia, warm compress, and gentle range ofmotion. Add - CYCLOBENZAPRINE 10 MG TABLET -discussed drowsiness side effect. Avoid driving or operating machinery after taking. 2. Headache, unspecified headache type - ICD9: 784.0, ICD10: R51.9 Continue [id number] analgesia. Denies use of prior migraine specific medication, but has not had cocktails in the emergency room for bad migraine. Follow-up if persists. Yu Castillo MD documented in this encounterUniversity [facility]als [facility]05-08-2023 Miscellaneous Notes* Telephone Encounter - Candice Dale LPN - 09/16/2022 10:56 AM EDT Patient phones requesting refills as follows: Requested Prescriptions Pending Prescriptions Disp Refills albuterol HFA (PROVENTIL HFA, VENTOLIN HFA) 90 mcg/actuation inhaler 8.5 g 1 Sig: Inhale 2 Puffs as instructed every 6 hours as needed for wheezing/shortness of breath. ANICETO 09/03/2022 NOV 12/16/2022 Please review and advise. Candice Dale LPN documented in this encounterUniversity Hospitals [facility]04-24-[address] Perez [facility] September 02, 2022 1:12pm Note Date/Time September 02, 2022 10: 13[facility] Department [address] [place] [address] Emergency Department Summary 09/02/22 MR#: [id number] Acct: [id number] Name: IRVIN TAN Rep #:[id number] : 1985 37 From: Laurent Zaragoza PCP: Michelle Grimm, MICROBIOLOGY INSTRUCTOR-C Status:REG E R Location: ED HPI History of Present Illness Chief Complaint: Nausea/Vomiting Narrative Narrative: 37-year-old female here with nausea vomiting for 1 week. Patient states she hashad proximately 5 episodes of nonbloody nonbilious vomitus over the last 24 hours. Also notes diarrhea. Denies any antibiotic use, recent travel or hospitalizations. Notes diffuse abdominal pains going on for several weeks. States she may be having a Crohn's flare. States she recently decreased her useof marijuana. She denies any chest pain or shortness of breath. Denies any urinary complaints, vaginal bleeding or discharge. She is not concerned about STDs at this time. PFSH PFSH Medical History Acute Crohn's disease Anxiety Back problem Bipolar 1 disorder Depression History of blood transfusion Marijuana use Restless legs Smoker Home Medications escitalopram oxalate 20 mg tablet (Lexapro) 20 mg PO DAILY 08/15/21 [History Last Taken Unknown] hydroxyzine pamoate 25 mg capsule 25 mg PO QHS 08/15/21 [History Last Taken Unknown] lamotrigine 100 mg tablet (Lamictal) 200 mg PO DAILY 08/15/21 [History Last Taken Unknown] promethazine 25 mg tablet 25 mg PO Q6H PRN PRN Nausea #10 TABLETS 05/23/22 [Rx Last Taken Unknown] ondansetron 4 mg disintegrating tablet 4 mg PO Q8H PRN PRN Nausea #10 tabs 07/13/22 [Rx Last Taken Unknown] dicyclomine 20 mg tablet 20 mg PO TID #14 tabs 07/30/22 [Rx Last Taken Unknown] ondansetron 4 mg disintegrating tablet 4 mg PO Q8H PRN PRN Nausea #14 tabs 08/11/22 [Rx Last Taken Unknown] hyoscyamine sulfate 0.125 mg sublingual tablet 0.25 mg PO Q4H PRN abdominal cramping #30 tabs 08/12/22 [Rx Last Taken Unknown] scopolamine base 1 mg over 3 days transdermal patch 1 patch transdermal Q3D #10 ea 08/15/22 [Rx Last Taken Unknown] ustekinumab 90 mg/mL subcutaneous syringe (Stelara) 90 mg subcut Q8W #1 mL 08/15/22 [Rx Last Taken Unknown] ondansetron 4 mg disintegrating tablet 4 mg PO Q8H PRN PRN Nausea #10 tabs 09/02/22 [Rx Last Taken Unknown] prednisone 50 mg tablet 50 mg PO DAILY 5 days #5 tabs 09/02/22 [Rx Last Taken Unknown] Allergy/AdvReac Type Severity Reaction Status Date / Time amoxicillin Allergy Rash Verified 09/02/22 10:07 tramadol Allergy Rash Verified 09/02/22 10:07 Family History Mother Mental disorder Surgical History Tubal ligation status Social History household members: children Smoking Status: Current every day smoker tobacco type: cigarettes substance use type: does not use ROS ROS ED ROS Narrative Constitutional: Denies fever HEENT: Denies sore throat Neck: Denies neck pain Cardiovascular: Denies chest pain, syncope Respiratory: Denies shortness of breath GI: Endorses nausea and vomiting, abdominal pain : Denies changes in urinary habits Musculoskeletal: Denies muscle or joint pain Neurologic: Denies numbness weakness or loss of sensation Skin denies rash EXAM Physical Exam Narrative Exam Narrative: Nursing triage notes reviewed, Vital signs reviewed Constitutional: please see mdm HENT: MMM Eyes: Pupils equal round and reactive to light, Extraocular muscles intact Neck: No stridor, no JVD, full neck ROM Lungs: Clear to auscultation, No wheezing or rales. No increased work of breathing, no conversational dyspnea, no accessory muscle use, no nasal flaring. No respiratory distress noted Heart: Regular rate and rhythm, No murmurs, No rubs and No gallops, 2+ distal pulses (radial, femoral, posterior tibial) in all extremities Abdomen: Soft, diffuse tenderness noted but no rigidity, rebound or guarding, nopositive Smalls sign, no tenderness at McBurney's point no obvious peritoneal signs, no palpable pulsatile abdominal masses, no auscultated abdominal bruit. No suprapubic tenderness : No CVAT Extremities: No edema Neuro: No focal neurological deficits, cranial nerves II through XII intact, 5/5strength in all extremities. Intact sensation to light touch in all extremities,2+ reflexes bilateral patella dens. Normal gait. No ataxia. Skin: No rash or lesions noted Const Vital Signs: 09/02/22 10:04 Temperature 97.9 F Temperature Source Temporal Pulse Rate 88 Respiratory Rate 16 Blood Pressure 129/94 H Blood Pressure Mean 105 Pulse Ox 100 Oxygen Delivery Method Room Air MDM MDM MDM Narrative Medical decision making narrative: Chief Complaint: Nausea vomiting CT scan of the abdomen and pelvis from 08/12/2022 shows no acute process External records reviewed: Seen by gastroenterology most recently in June 2022 and diagnosed with cannabis hyperemesis syndrome MDM: The patient was hemodynamically stable, afebrile, nontoxic-appearing. Abdominalexam was benign not consistent with acute surgical pathology. There is no positive Smalls sign, no tenderness at McBurney's point. There is no peritonealsigns, rebound or guarding or significant tenderness noted. I considered the following differential diagnosis: Cannabinoid hyperemesis, dehydration, acute kidney injury, electrolyte abnormality, , Crohn's flare, acute surgical intra-abdominal pathology I considered obtaining a CT scan of the abdomen pelvis given history of Crohn's disease and abdominal pain however patient's symptoms been going on for 1 week, her vitals are stable, exam was benign and not consistent with gallbladder pathology or acute surgical pathology in the abdomen such as perforation or obstruction. I initially did not obtain imaging in lieu of lab results to show signs of endorgan hypoperfusion with anion gap, systemic inflammation with a grossly elevated white blood cell count or signs of hepatobiliary pathology or pancreatitis to suggest gallbladder pathology. Labs were remarkable for NO evidence of systemic inflammation, evidence of elevated anion gap to suggest endorgan hypoperfusion, no significant electrolyteabnormalities, acute kidney injury, no evidence of hepatobiliary pathology. Repeat abdominal exam was benign. Patient is able to tolerate p.o. She was encouraged to continue to take Phenergan, Zofran. She is encouraged follow-up with GI for outpatient evaluation. She was given a prescription for prednisone for decrease inflammation. Factors affecting care: History of Crohn's disease, bipolar 1 disorder Social determinants of health: History of mental health disorder History obtained from others: EMS Shared decision making: I will have a discussion with the patient and or visitors regarding risk/benefits of further testing or admission. They will be made aware of of the risk/benefits inherent in this decision they will be given the opportunity to voice understanding. Consults: None Lab Data Attestation: I reviewed the patient's lab results. Lab results narrative: CBC without leukocytosis, severe anemia, no thrombocytopenia. BMP without evidence of significant electrolyte abnormalities, no anion gap, no acute kidney injury. LFTs show no evidence of hepatobiliary pathology. Lipase is wnl indicating no pancreatic inflammation. Urine negative Labs: Laboratory Results - last 24 hr 09/02/22 09/02/22 09/02/22 10:40 10:40 10:50 WBC 5.1 RBC 4.30 Hgb 13.5 Hct 39.1 MCV 90.9 MCH 31.4 MCHC 34.5 RDW Std Deviation 40.4 RDW Coeff of Kim 12.2 Plt Count 420 MPV 8.9 Immature Gran % (Auto) 0.200 Neut % (Auto) 46.2 L Lymph % (Auto) 41.7 H [place] % (Auto) 9.1 Eos % (Auto) 2.0 Baso % (Auto) 0.8 Absolute Neuts (auto) 2.3 Absolute Lymphs (auto) 2.11 Nucleated RBC % 0 Sodium 139 Potassium 3.6 Chloride 110 H Carbon Dioxide 27.0 Anion Gap 2 L BUN 7 Creatinine 0.94 Estim Creat Clear Calc 67.13 Est GFR (MDRD) Af Amer 86 Est GFR (MDRD) Non-Af 71 BUN/Creatinine Ratio 7.5 L Glucose 92 Calcium 9.2 Total Bilirubin 0.30 Direct Bilirubin 0.08 AST 15 ALT 24 Alkaline Phosphatase 95 Total Protein 7.4 Albumin 3.6 Globulin 3.8 Lipase 18 Urine Test Negative Discharge Plan Triage Chief Complaint: Nausea/Vomiting ED Provider: Laurent Perez Dx/Rx/DC Orders Clinical Impression: Crohn's disease, Abdominal pain, Nausea & vomiting Instructions: Crohns Disease Dc, ED Abdominal Pain Unkn Cause Fem Prescriptions: New prednisone 50 mg tablet 50 mg PO DAILY 5 Days Qty: 5 0RF ondansetron 4 mg tablet,disintegrating 4 mg PO Q8H PRN PRN (Reason: Nausea) Qty: 10 0RF No Action hydroxyzine pamoate 25 mg capsule 25 mg PO QHS escitalopram oxalate [Lexapro] 20 mg tablet 20 mg PO DAILY lamotrigine [Lamictal] 100 mg tablet 200 mg PO DAILY promethazine [promethazine] 25 mg tablet 25 mg PO Q6H PRN PRN (Reason: Nausea) Qty: 10 0RF ondansetron [ondansetron] 4 mg tablet,disintegrating 4 mg PO Q8H PRN PRN (Reason: Nausea) Qty: 10 0RF dicyclomine 20 mg tablet 20 mg PO TID Qty: 14 0RF ondansetron 4 mg tablet,disintegrating 4 mg PO Q8H PRN PRN (Reason: Nausea) Qty: 14 0RF hyoscyamine sulfate 0.125 mg tablet, sublingual 0.25 mg PO Q4H PRN (Reason: abdominal cramping) Qty: 30 0RF Stelara 90 mg/mL syringe 90 mg subcut Q8W Qty: 1 0RF Rx Instructions: Crohn's scopolamine base 1 mg over 3 days patch 3 day 1 patch transdermal Q3D Qty: 10 0RF Stand Alone Forms: ED Work / School Excuse Primary Care Provider: PodlogMichelle turcios NP Referrals: Kenn Ojeda DO [Med Staff - Active Staff] - Activity Restrictions/Additional Instructions: Thank you for trusting us with your care today! Please take Zofran as needed for nausea or vomiting. Please take prednisone as prescribed. Please take Tylenol (2 pills, 650 mg), ibuprofen (2 pills, 400 mg) every 6 hoursas needed for pain and fever control. Please return to the emergency department if your symptoms change or worsen. Specifically for worsening abdominal pain, intractable vomiting not controlled by Zofran, no bowel movements for greater than 14 days. Please follow with your primary care physician for further outpatient evaluationand management. Disposition Disposition: Home, Self Care What to do if you have Problems For any increased pain, shortness of breath, bleeding, nausea or vomiting, chestpain, or any unexpected problems, contact your Primary Care Provider. Call [facility] ([phone]) or report to the closest Emergency Room. Call 911 if necessary. 09/02/22 1312 <Electronically signed by Laurent Perez DO> Cosigner Signature (if applicable): CC: SIXTO Grimm ~ Signed [facility] Work Phone: 1(273) 619-396004-03-[address] Mason [facility] August 12, 2022 9:36pm Note Date/Time August 12, 2022 9:36 pm [facility] Medical Records Department [address] [place] [address] Emergency Department Summary 08/12/22 MR#: [id number] Acct: [id number] Name: IRVIN TAN Rep #:[id number] : 1985 37 From: Ben Mason DO PCP: SIXTO Calix Status:REG E R Location: ED HPI HPI - GI History of Present Illness Chief Complaint: Abd Pain Narrative Narrative: 37-year-old female with history of Crohn's disease and cannabinoid hyperemesis syndrome presenting for evaluation of abdominal pain that she has had since yesterday. Patient a work-up in the emergency room yesterday and had an ultrasound right upper quadrant showed gallstones. There was no evidence of acute cholecystitis however. Her LFTs were elevated and I discussed this with Dr. Ojeda and Dr. Rascon who stated is not an obstructive process. She didneed to be admitted. Dr. Ojeda ordered some extra lab work for outpatient follow-up. She presents again today with abdominal pain which is diffuse. She states it started after eating whipple and eggs this morning. Its been consistentall . She had [place] at home and took it and this did not help. Denies any fever. Denies constipation or diarrhea. No urinary or vaginal complaints. PFSH PFSH Medical History Acute Crohn's disease Anxiety Back problem Bipolar 1 disorder Depression History of blood transfusion Marijuana use Restless legs Smoker Home Medications escitalopram oxalate 20 mg tablet (Lexapro) 20 mg PO DAILY 08/15/21 [History Last Taken Unknown] hydroxyzine pamoate 25 mg capsule 25 mg PO QHS 08/15/21 [History Last Taken Unknown] lamotrigine 100 mg tablet (Lamictal) 200 mg PO DAILY 08/15/21 [History Last Taken Unknown] promethazine 25 mg tablet 25 mg PO Q6H PRN PRN Nausea #10 TABLETS 05/23/22 [Rx Last Taken Unknown] ondansetron 4 mg disintegrating tablet 4 mg PO Q8H PRN PRN Nausea #10 tabs 07/13/22 [Rx Last Taken Unknown] ustekinumab 130 mg/26 mL intravenous solution (Stelara) 520 mg (104 mL) .Route ONCE #78 mL 07/17/22 [Rx Last Taken Unknown] dicyclomine 20 mg tablet 20 mg PO TID #14 tabs 07/30/22 [Rx Last Taken Unknown] prednisone 10 mg tablet 10 mg PO DIRECTED #42 tabs 08/01/22 [Rx Last Taken Unknown] hydrocodone-acetaminophen 5-325mg 5mg-325mg 1 tab PO Q6H PRN PRN Pain 3 days #10TABLETS 08/11/22 [Rx Last Taken Unknown] ondansetron 4 mg disintegrating tablet 4 mg PO Q8H PRN PRN Nausea #14 tabs 08/11/22 [Rx Last Taken Unknown] promethazine 25 mg tablet 25 mg PO TID PRN nausea and vomiting #14 tabs 08/11/22[Rx Last Taken Unknown] hyoscyamine sulfate 0.125 mg sublingual tablet 0.25 mg PO Q4H PRN abdominal cramping #30 tabs 08/12/22 [Rx Last Taken Unknown] Allergy/AdvReac Type Severity Reaction Status Date / Time amoxicillin Allergy Rash Verified 08/11/22 09:37 tramadol Allergy Rash Verified 08/11/22 09:37 Family History Mother Mental disorder Surgical History Tubal ligation status Social History household members: children Smoking Status: Current every day smoker tobacco type: cigarettes substance use type: does not use ROS ROS ED Constitutional Constitutional ED: Denies chills, fever(s) or sweats Eyes Eyes: Denies blurry vision or change in vision ENT ENT ED: Denies ear pain or sore throat Cardiovascular Cardiovascular: Denies chest pain, palpitations or racing heartbeat Respiratory/Chest Respiratory/Chest: Denies cough, dyspnea or sputum Gastrointestinal Gastrointestinal: Reports abdominal pain and nausea; Denies constipation, diarrhea or vomiting Genitourinary Genitourinary ED: Denies dysuria, hematuria or urinary frequency Musculoskeletal Musculoskeletal: Denies arthralgias, myalgias or neck pain Integumentary Denies abscess, Abrasions or rash Neurologic Neurologic: Denies headache(s), paresthesias or weakness Psychiatric Psychiatric: Denies anxiety, depression, suicidal ideation or suicidal thoughts Endocrine Endocrinology: Denies polydipsia or polyuria EXAM Physical Exam Const Vital Signs: 08/12/22 18:32 08/12/22 19:12 Temperature 98 F Temperature Source Temporal Pulse Rate 94 68 Respiratory Rate 18 94 H Blood Pressure 155/100 H 160/109 H Blood Pressure Mean 118 126 Pulse Ox 99 98 Oxygen Delivery Method Room Air Room Air Positive well nourished General Appearance ED: NAD; Negative for pallor HEENT Reports moist mucous membranes normocephalic and atraumatic Eyes PERRL General Eye ED: Negative for scleral icterus Resp normal respiratory effort GI GI Narrative: Diffusely tender. Abdomen benign Palpation: Negative for guarding or rigid Neuro CN's II-XII intact bilaterally Sensorium / Orientation: alert and oriented to person Motor Exam: strength 5/5 throughout Psych mental status grossly normal Skin General Skin Exam: Negative for jaundice or pallor MDM MDM MDM Narrative Medical decision making narrative: 69 today with continued abdominal pain after taking [place] today. She states started after breakfast. Is been persistent all day. She does not have any focal right upper quadrant pain on examination. Differential at this point includes but not limited to Crohn's flare, acute cholecystitis, cannabinoid hyperemesis syndrome, pancreatitis. Patient well-appearing. Vital signs are stable. CBC obtained shows no leukocytosis. Hemoglobin adequate stable. Platelets are normal. CMP shows improving LFTs. Her alkaline phosphatase went up mildly to 215, ALT is down to 653, ALT down to 149. Lactic acid normal at 0.4. Lipase negative. Patient was medicated with Dilaudid and Reglan. This did help her pain. CT of the abdomen pelvis today was obtained and is negative for acute findings. I discussed the patient at length with Dr. Ojeda who is her GI doctor. He recommended sending her home and starting Levsin. Patient already previously tried Bentyl. He did not recommend giving her narcotics. Patient to follow-up with Dr. Ojeda. This was discussed with her at length andshe is amenable to this. Turn precaution discussed Impression: 1. Abdominal pain 2. Nausea Lab Data Attestation: I reviewed the patient's lab results. Labs: Laboratory Results - last 24 hr 08/12/22 08/12/22 08/12/22 19:20 19:20 20:02 WBC 6.6 RBC 4.06 L Hgb 12.6 Hct 37.5 MCV 92.4 MCH 31.0 MCHC 33.6 RDW Std Deviation 43.7 RDW Coeff of Kim 12.9 Plt Count 360 MPV 10.5 Immature Gran % (Auto) 0.500 Neut % (Auto) 42.2 L Lymph % (Auto) 47.6 H [place] % (Auto) 5.7 Eos % (Auto) 3.2 Baso % (Auto) 0.8 Absolute Neuts (auto) 2.8 Absolute Lymphs (auto) 3.16 Nucleated RBC % 0 Sodium 138 Potassium 3.3 L Chloride 105 Carbon Dioxide 26.0 Anion Gap 7 BUN 6 L Creatinine 0.96 Estim Creat Clear Calc 65.73 Est GFR (MDRD) Af Amer 84 Est GFR (MDRD) Non-Af 69 BUN/Creatinine Ratio 6.3 L Glucose 79 Lactic Acid 0.4 Calcium 8.9 Total Bilirubin 0.30 Direct Bilirubin 0.13 AST 149 H ALT 653 H Alkaline Phosphatase 215 H Total Protein 6.9 Albumin 3.4 Globulin 3.5 Lipase 130 Radiography Diagnostic Testing: Clinical Impression(s) from Imaging Studies Abdomen/Pelvis CT 08/12/22 19:43 IMPRESSION: No acute disease Electronically Signed: Yu García MD at 21:12 EDT Reading Location ID and State: [facility] / [place] , Service support , Discharge Plan Triage Chief Complaint: Abd Pain ED Provider: Ben Mason Dx/Rx/DC Orders Instructions: ED Abdominal Pain Unkn Cause Fem Prescriptions: New hyoscyamine sulfate 0.125 mg tablet, sublingual 0.25 mg PO Q4H PRN (Reason: abdominal cramping) Qty: 30 0RF No Action hydroxyzine pamoate 25 mg capsule 25 mg PO QHS escitalopram oxalate [Lexapro] 20 mg tablet 20 mg PO DAILY lamotrigine [Lamictal] 100 mg tablet 200 mg PO DAILY promethazine [promethazine] 25 mg tablet 25 mg PO Q6H PRN PRN (Reason: Nausea) Qty: 10 0RF ondansetron [ondansetron] 4 mg tablet,disintegrating 4 mg PO Q8H PRN PRN (Reason: Nausea) Qty: 10 0RF dicyclomine 20 mg tablet 20 mg PO TID Qty: 14 0RF ondansetron 4 mg tablet,disintegrating 4 mg PO Q8H PRN PRN (Reason: Nausea) Qty: 14 0RF promethazine 25 mg tablet 25 mg PO TID PRN (Reason: nausea and vomiting) Qty: 14 0RF hydrocodone-acetaminophen 5-325 mg tablet 1 tab PO Q6H PRN PRN (Reason: Pain) 3 Days Qty: 10 0RF Stelara 130 mg/26 mL solution 520 mg .ROUTE ONCE Qty: 78 0RF Rx Instructions: If weight day of infusion is >85kg infuse 520mg. If weight is <85kg infuse 390mg. prednisone 10 mg tablet 10 mg PO DIRECTED Qty: 42 0RF Rx Instructions: take 2tabs once a day for two weeks, then one tab daily for two weeks Primary Care Provider: Michelle Grimm NP Referrals: Michelle Grimm NP, ARCHIE-C [Primary Care Provider] - Disposition Disposition: Home, Self Care What to do if you have Problems For any increased pain, shortness of breath, bleeding, nausea or vomiting, chestpain, or any unexpected problems, contact your Primary Care Provider. Call [facility] ([phone]) or report to the closest Emergency Room. Call 911 if necessary. 08/12/222135 <Electronically signed by Ben Mason DO> Cosigner Signature (if applicable): CC: SIXTO Grimm ~ Signed [facility] Work Phone: 1(879) 497-341804-02-[address] Mason [facility] August 11, 2022 3:01pm Note Date/Time August 11, 2022 10:2 2am [facility] Medical Records Department [address] [place], [place] [address] [address] Emergency Department Summary 08/11/22 MR#: [id number] Acct: [id number] Name: IRVIN TAN Rep #:[id number] : 1985 37 From: Ben Mason DO PCP: Michelle Grimm MICROBIOLOGY INSTRUCTOR-C Status:REG E R Location: ED HPI HPI - GI History of Present Illness Chief Complaint: Abd Pain Narrative Narrative: 37-year-old female with reported history of Crohn's disease as well as cannabinoid hyperemesis syndrome presenting with abdominal pain which is fairly diffuse. She has nausea and vomiting associated with this. No fevers. Denies urinary complaints. No constipation or diarrhea. She sees Dr. Ojeda and had aStelara infusion on the . She states that he has done upper and lower endoscopy with him. PFSH PFSH Medical History Acute Crohn's disease Anxiety Back problem Bipolar 1 disorder Depression History of blood transfusion Marijuana use Restless legs Smoker Home Medications escitalopram oxalate 20 mg tablet (Lexapro) 20 mg PO DAILY 08/15/21 [History Last Taken Unknown] hydroxyzine pamoate 25 mg capsule 25 mg PO QHS 08/15/21 [History Last Taken Unknown] lamotrigine 100 mg tablet (Lamictal) 200 mg PO DAILY 08/15/21 [History Last Taken Unknown] promethazine 25 mg tablet 25 mg PO Q6H PRN PRN Nausea #10 TABLETS 05/23/22 [Rx Last Taken Unknown] ondansetron 4 mg disintegrating tablet 4 mg PO Q8H PRN PRN Nausea #10 tabs 07/13/22 [Rx Last Taken Unknown] ustekinumab 130 mg/26 mL intravenous solution (Stelara) 520 mg (104 mL) .Route ONCE #78 mL 07/17/22 [Rx Last Taken Unknown] dicyclomine 20 mg tablet 20 mg PO TID #14 tabs 07/30/22 [Rx Last Taken Unknown] prednisone 10 mg tablet 10 mg PO DIRECTED #42 tabs 08/01/22 [Rx Last Taken Unknown] hydrocodone-acetaminophen 5-325mg 5mg-325mg 1 tab PO Q6H PRN PRN Pain 3 days #10TABLETS 08/11/22 [Rx Last Taken Unknown] ondansetron 4 mg disintegrating tablet 4 mg PO Q8H PRN PRN Nausea #14 tabs 08/11/22 [Rx Last Taken Unknown] promethazine 25 mg tablet 25 mg PO TID PRN nausea and vomiting #14 tabs 08/11/22[Rx Last Taken Unknown] Allergy/AdvReac Type Severity Reaction Status Date / Time amoxicillin Allergy Rash Verified 08/11/22 09:37 tramadol Allergy Rash Verified 08/11/22 09:37 Family History Mother Mental disorder Surgical History Tubal ligation status Social History household members: children Smoking Status: Current every day smoker tobacco type: cigarettes substance use type: does not use ROS ROS ED Constitutional Constitutional ED: Denies chills, fever(s) or sweats Eyes Eyes: Denies blurry vision or change in vision ENT ENT ED: Denies ear pain or sore throat Cardiovascular Cardiovascular: Denies chest pain, palpitations or racing heartbeat Respiratory/Chest Respiratory/Chest: Denies cough, dyspnea or sputum Gastrointestinal Gastrointestinal: Reports abdominal pain, nausea and vomiting; Denies constipation or diarrhea Genitourinary Genitourinary ED: Denies dysuria, hematuria or urinary frequency Musculoskeletal Musculoskeletal: Denies arthralgias, myalgias or neck pain Integumentary Denies abscess, Abrasions or rash Neurologic Neurologic: Denies headache(s), paresthesias or weakness Psychiatric Psychiatric: Denies anxiety, depression, suicidal ideation or suicidal thoughts Endocrine Endocrinology: Denies polydipsia or polyuria EXAM Physical Exam Const Vital Signs: 08/11/22 09:35 08/11/22 13:30 Temperature 97.6 F L Temperature Source Temporal Pulse Rate 67 64 Respiratory Rate 14 18 Blood Pressure 172/119 H 175/105 H Blood Pressure Mean 136 128 Pulse Ox 100 99 Oxygen Delivery Method Room Air Room Air Positive well nourished General Appearance ED: NAD HEENT Reports moist mucous membranes normocephalic and atraumatic Eyes PERRL and EOMs intact bilaterally General Eye ED: Negative for pale conjunctiva or scleral icterus Resp normal respiratory effort Cardio regular rate and regular rhythm GI GI Narrative: Diffuse mild tenderness. No rebound or guarding. Back/Spine no CVA tenderness Neuro CN's II-XII intact bilaterally Sensorium / Orientation: alert, oriented to person, oriented to place and oriented to time Motor Exam: strength 5/5 throughout Psych mental status grossly normal Skin no wounds MDM MDM MDM Narrative Medical decision making narrative: Differential includes but is not limited to GERD, gastritis, peptic ulcer disease, appendicitis, diverticulitis, pancreatitis, small bowel obstruction, perforated bowel, viral etiology, Crohn's flare, cannabinoid hyperemesis. CBC to assess white blood cell count, hemoglobin, platelets, differential. CMP to assess liver function, renal function, electrolytes, glucose, anion gap. Lipaseto assess for pancreatitis. hCG to assess for . Patient medicated with morphine, Reglan as she states that the Zofran she is been taking has not been helping. She is given a liter of normal saline. CBC shows a normal white blood cell count 5.0. Hemoglobin hematocrit stable platelets are normal. Renalfunction, electrolytes within normal limits with exception of potassium of 3.2. Patient's AST is 1539, ALT 1223, alkaline phosphatase 186. 31 these are new forher. Her lipase is not outside the normal range at 257 however it is typically 50s and 60s. Patient given a second dose of morphine for pain hospital.Because of the abnormalities I did obtain a right upper quadrant ultrasound. This showsgallstones but no evidence of cholecystitis. Discussed with Dr. Rascon who felt that this was not an obstructive pattern and felt he did not have acute cholecystitis. I also discussed with Dr. Ojeda who thought this was most likely a self-limiting possibly viral. He felt that he could follow this up as an outpatient. Patient was amenable to this. Patient discharged in stable condition. Impression: 1. Abdominal pain 2. Cholelithiasis 3. Nausea/vomiting 4. Acute hepatitis Lab Data Labs: Laboratory Results - last 24 hr 08/11/22 08/11/22 08/11/22 09:51 09:51 09:51 WBC 5.0 RBC 4.02 L Hgb 12.4 Hct 37.2 MCV 92.5 MCH 30.8 MCHC 33.3 RDW Std Deviation 43.8 RDW Coeff of Kim 12.9 Plt Count 346 MPV 10.1 Immature Gran % (Auto) 0.200 Neut % (Auto) 47.7 Lymph % (Auto) 37.2 [place] % (Auto) 11.9 H Eos % (Auto) 2.6 Baso % (Auto) 0.4 Absolute Neuts (auto) 2.4 Absolute Lymphs (auto) 1.85 Nucleated RBC % 0 Sodium 142 Potassium 3.2 L Chloride 107 Carbon Dioxide 29.0 Anion Gap 6 BUN 10 Creatinine 0.92 Estim Creat Clear Calc 68.59 Est GFR (MDRD) Af Amer 88 Est GFR (MDRD) Non-Af 73 BUN/Creatinine Ratio 10.9 Glucose 103 Calcium 8.8 Total Bilirubin 1.00 AST 1539 H ALT 1223 H Alkaline Phosphatase 186 H Total Protein 6.7 Albumin 3.3 Globulin 3.4 Albumin/Globulin Ratio 1.0 Lipase 257 Serum , Qual NEGATIVE Urine Color Urine Clarity Urine pH Ur Specific [place] Urine Protein Urine Glucose (UA) Urine Ketones Urine Occult Blood Urine Nitrite Urine Bilirubin Urine Urobilinogen Ur Leukocyte Esterase Urine RBC Urine WBC Ur Squamous Epith Cells Amorphous Sediment Urine Bacteria Urine Mucus 08/11/22 11:00 WBC RBC Hgb Hct MCV MCH MCHC RDW Std Deviation RDW Coeff of Kim Plt Count MPV Immature Gran % (Auto) Neut % (Auto) Lymph % (Auto) [place] % (Auto) Eos % (Auto) Baso % (Auto) Absolute Neuts (auto) Absolute Lymphs (auto) Nucleated RBC % Sodium Potassium Chloride Carbon Dioxide Anion Gap BUN Creatinine Estim Creat Clear Calc Est GFR (MDRD) Af Amer Est GFR (MDRD) Non-Af BUN/Creatinine Ratio Glucose Calcium Total Bilirubin AST ALT Alkaline Phosphatase Total Protein Albumin Globulin Albumin/Globulin Ratio Lipase Serum , Qual Urine Color Yellow Urine Clarity Sl. Cloudy Urine pH 7.0 Ur Specific [place] 1.015 Urine Protein 30 H Urine Glucose (UA) Normal Urine Ketones Negative Urine Occult Blood Negative Urine Nitrite Negative Urine Bilirubin 3 H Urine Urobilinogen 4 H Ur Leukocyte Esterase 25 H Urine RBC 0 SEEN Urine WBC 0-5 SEEN Ur Squamous Epith Cells 5-10 SEEN Amorphous Sediment 2+ Urine Bacteria 0 SEEN Urine Mucus 0 SEEN Radiography Diagnostic Testing: Clinical Impression(s) from Imaging Studies Gallbladder Ultrasound 08/11/22 11:14 IMPRESSION: 1. Multiple gallstones Electronically Signed: Donaldo Barlow MD at 13:09 EDT , Discharge Plan Triage Chief Complaint: Abd Pain ED Provider: Ben Mason Dx/Rx/DC Orders Instructions: ED Abdominal Pain Gallstone Poss, ED Hepatitis Cause Unknown ... Prescriptions: New ondansetron 4 mg tablet,disintegrating 4 mg PO Q8H PRN PRN (Reason: Nausea) Qty: 14 0RF promethazine 25 mg tablet 25 mg PO TID PRN (Reason: nausea and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 ears. [...] starch, healthy oil intake (olive oil), healthy protein(fish) along the lines of the Mediterranean diet. [...] APRN.GUALBERTO MANCIA This note was completed with [employer] dictation software. Note was reviewed for accuracy. There may be minor misspellings or grammar miscues with [employer] Dictation. I spent a total of 31 minutes on the date of the service which included preparing to see the patient, [id number] patient care, completing clinical documentation, performing a medically appropriate examination, counseling and educating the patient/family/caregiver and ordering medications, tests, or procedures. [place] [id number] documented in this encounterUniversity Hospitals Tripoint Medical Center03-28-2022 History of Present illness Narrative* Yu Castillo MD - 08/06/2021 7:51 PM EDT Patient presents with: Blood Pressure Check: fatigue [...] headache, dizziness, nausea, vision change, numbness, weakness, orspeech difficulty. Follow up with primary care tomorrow for BP and headache recheck. Yu Castillo MD documented in this encounterUniversity Hospitals Tripoint Medical CenterDismarymount hospitalr summary Author Dr. Pereira [facility] July 30, 2022 8:53am Note Date/Time July 30, 2022 8:0 1am [facility] Medical Records Department [address] [place] [address] Emergency Department Summary 07/30/22 MR#: [id number] Acct: [id number] Name: IRVIN TAN Rep #:[id number] : 1985 37 From: Mohsen Pereira MD PCP: Michelle Grimm MICROBIOLOGY INSTRUCTOR-C Status:REG E R Location: ED HPI History of Present Illness Chief Complaint: Abd Pain Narrative Narrative: Patient presents with nausea vomiting and diarrhea. She does have a history of Crohn's and 6 days ago she had an infusion of Stelara for her Crohn's, this was her first infusion. Her symptoms started last night. She has no fevers or chills. She has abdominal cramping which is diffuse but mostly in the epigastric region. She has no flank pain. She is denying urinary symptoms. PFSH PFSH Medical History Acute Crohn's disease Anxiety Back problem Bipolar 1 disorder Depression History of blood transfusion Marijuana use Restless legs Smoker Home Medications escitalopram oxalate 20 mg tablet (Lexapro) 20 mg PO DAILY 08/15/21 [History Last Taken Unknown] hydroxyzine pamoate 25 mg capsule 25 mg PO QHS 08/15/21 [History Last Taken Unknown] lamotrigine 100 mg tablet (Lamictal) 200 mg PO DAILY 08/15/21 [History Last Taken Unknown] ondansetron 4 mg disintegrating tablet 4 mg PO Q6H PRN nausea and vomiting #10 tabs 05/16/22 [Rx Last Taken Unknown] budesonide 3 mg capsule,delayed,extended release 9 mg PO DAILY #45 ea 05/20/22 [Rx Last Taken Unknown] promethazine 25 mg tablet 25 mg PO Q6H PRN PRN Nausea #10 TABLETS 05/23/22 [Rx Last Taken Unknown] ondansetron 4 mg disintegrating tablet 4 mg PO Q8H PRN PRN Nausea #10 tabs 07/13/22 [Rx Last Taken Unknown] ustekinumab 130 mg/26 mL intravenous solution (Stelara) 520 mg (104 mL) .Route ONCE #78 mL 07/17/22 [Rx Last Taken Unknown] dicyclomine 20 mg tablet 20 mg PO TID #14 tabs 07/30/22 [Rx Last Taken Unknown] ondansetron 4 mg disintegrating tablet 4 mg PO Q8H PRN PRN Nausea #10 tabs 07/30/22 [Rx Last Taken Unknown] Allergy/AdvReac Type Severity Reaction Status Date / Time amoxicillin Allergy Rash Verified 07/13/22 11:38 tramadol Allergy Rash Verified 07/13/22 11:38 Family History Mother Mental disorder Surgical History Tubal ligation status Social History household members: children Smoking Status: Current every day smoker tobacco type: cigarettes substance use type: does not use ROS ROS ED ROS Narrative Past medical history: Reviewed Medications: Reviewed Social history: Noncontributory Review of systems: All systems negative except as indicated General: No fever. She does not feel lightheaded Eyes: No visual changes ENT: No upper airway congestion, normal voice Neck: No neck pain Cardiovascular: No chest pain Respiratory: No shortness of breath or cough Gastrointestinal: As in HPI Genitourinary: No dysuria Musculoskeletal: Denies myalgias no difficulty with ambulation Skin: No rash Neurological: No memory loss, confusion or any focal weakness EXAM Physical Exam Narrative Exam Narrative: Physical exam General: Patient appears relatively comfortable in the bed. Head: Normocephalic, Atraumatic Eyes: Conjunctiva not pale ENT: Slightly dry mucous membranes Neck: Supple, Nontender, No lymphadenopathy Cardiovascular: Regular rate, Regular rhythm Respiratory: No distress, CTA bilaterally Abdomen: Soft, mild tenderness throughout no specific point tenderness no specific pain at McBurney's. There is no guarding or rebound, quite benign abdominal exam. Back: Nontender, Normal Inspection. Negative for: CVA tenderness Extremities: Nontender, No edema Skin: Normal color, No rash Neurological: Alert, Normal Strength, Normal Sensation Const Vital Signs: 07/30/22 07:38 Temperature 98 F Temperature Source Temporal Pulse Rate 81 Respiratory Rate 14 Blood Pressure 112/83 H Blood Pressure Mean 92 Pulse Ox 99 Oxygen Delivery Method Room Air MDM MDM MDM Narrative Medical decision making narrative: A. Problems addressed patient has abdominal pain. She also has nausea vomitingdiarrhea these were addressed with Bentyl, antinausea medication in the form of Zofran and morphine. I thought about intra-abdominal abscess however she has nofever and a normal white count, I thought about Crohn's exacerbation which is possible however it is also possible the patient has a viral gastroenteritis especially that norovirus has been quite prevalent in this area recently. She does not have any HIMANSHU based on her blood results, no electrolyte abnormalities. She is given IV fluids for dehydration and she improved. I can discharge her with Zofran and Bentyl for home. I thought about a CAT scan however she has Crohn's and she would likely get multiple CAT scans throughout her lifetime at this time I do not believe she meets criteria since she has no fever normal white count and a benign abdominal exam. If anything changes she is to return. She was reevaluated and she felt much better. She does have a history of hyperemesis from cannabinoids, however this usually does not include diarrhea and she told me this is not similar to her prior hyperemesis episodes Lab Data Labs: Laboratory Results - last 24 hr 07/30/22 07/30/22 08:13 08:13 WBC 5.7 RBC 4.10 L Hgb 13.2 Hct 38.0 MCV 92.7 MCH 32.2 H MCHC 34.7 RDW Std Deviation 44.0 H RDW Coeff of Kim 12.9 Plt Count 361 MPV 9.2 Immature Gran % (Auto) 0.200 Neut % (Auto) 48.5 Lymph % (Auto) 39.7 [place] % (Auto) 9.5 Eos % (Auto) 1.6 Baso % (Auto) 0.5 Absolute Neuts (auto) 2.8 Absolute Lymphs (auto) 2.26 Nucleated RBC % 0 Sodium 141 Potassium 3.6 Chloride 108 H Carbon Dioxide 26.0 Anion Gap 7 BUN 10 Creatinine 0.98 Estim Creat Clear Calc 64.39 Est GFR (MDRD) Af Amer 82 Est GFR (MDRD) Non-Af 68 BUN/Creatinine Ratio 10.2 Glucose 92 Calcium 9.0 Total Bilirubin 0.40 AST 11 L ALT 23 Alkaline Phosphatase 63 Total Protein 7.3 Albumin 3.7 Globulin 3.6 Albumin/Globulin Ratio 1.0 Lipase 52 L Discharge Plan Triage Chief Complaint: Abd Pain ED Provider: Mohsen Pereira Dx/Rx/DC Orders Clinical Impression: Crohn's disease, Abdominal pain, Nausea vomiting and diarrhea, Dehydration Instructions: ED Diet Vomiting Diarrhea Prescriptions: New ondansetron 4 mg tablet,disintegrating 4 mg PO Q8H PRN PRN (Reason: Nausea) Qty: 10 0RF dicyclomine 20 mg tablet 20 mg PO TID Qty: 14 0RF No Action hydroxyzine pamoate 25 mg capsule 25 mg PO QHS escitalopram oxalate [Lexapro] 20 mg tablet 20 mg PO DAILY lamotrigine [Lamictal] 100 mg tablet 200 mg PO DAILY ondansetron 4 mg tablet,disintegrating 4 mg PO Q6H PRN (Reason: nausea and vomiting) Qty: 10 0RF promethazine [promethazine] 25 mg tablet 25 mg PO Q6H PRN PRN (Reason: Nausea) Qty: 10 0RF ondansetron [ondansetron] 4 mg tablet,disintegrating 4 mg PO Q8H PRN PRN (Reason: Nausea) Qty: 10 0RF budesonide 3 mg capsule,delayed,extend.release 9 mg PO DAILY Qty: 45 1RF Stelara 130 mg/26 mL solution 520 mg .ROUTE ONCE Qty: 78 0RF Rx Instructions: If weight day of infusion is >85kg infuse 520mg. If weight is <85kg infuse 390mg. Primary Care Provider: Michelle Grimm NP Referrals: Michelle Grimm NP, MICROBIOLOGY INSTRUCTOR-C [Primary Care Provider] - 3-5 Days Disposition Disposition: Home, Self Care What to do if you have Problems For any increased pain, shortness of breath, bleeding, nausea or vomiting, chestpain, or any unexpected problems, contact your Primary Care Provider. Call [facility] ([phone]) or report to the closest Emergency Room. Call 911 if necessary. 07/30/22 0853 <Electronically signed by Mohsen Pereira MD> Cosigner Signature (if applicable): CC: MICROBIOLOGY INSTRUCTOR-C Michelle Grimm ~ Signed [facility] Work Phone: Discharge summary Author Dr. Saul [facility] October 28, 2022 11:09am Note Date/Time October 28, 2022 10:0 1am [facility] Medical Records Department [address] [place] [id number] Emergency Department Summary 10/28/22 MR#: [id number] Acct: [id number] Name: IRVIN TAN Rep #:[id number] : 1985 37 From: Louis Saul MD PCP: SIXTO Calix Status:REG E R Location: ED HPI HPI - GI History of Present Illness Chief Complaint: Abd Pain Informant: patient Narrative Narrative: 3 days ago patient had cholecystectomy here at this hospital followed by EGD andsphincterotomy with removal of stones from the common bile duct and temporary stent placement. She states she has been having postoperative soreness, she hasbeen passing flatus but no bowel movements yet, but this morning her pain has become severe and diffuse throughout her abdomen along with significant nausea. No fevers or chills or pruritus/jaundice. PFSH PFSH Medical History Anemia Anxiety Asthma Bipolar 1 disorder Depression Heartburn History of blood transfusion History of Crohn's disease Hypertension Low iron Marijuana use Migraine headache Smoker Home Medications escitalopram oxalate 20 mg tablet (Lexapro) 20 mg PO DAILY 08/15/21 [History Last Taken Unknown] hydroxyzine pamoate 25 mg capsule 25 mg PO QHS 08/15/21 [History Last Taken Unknown] lamotrigine 100 mg tablet (Lamictal) 200 mg PO DAILY 08/15/21 [History Last Taken Unknown] promethazine 25 mg tablet 25 mg PO Q6H PRN PRN Nausea #10 TABLETS 05/23/22 [Rx Last Taken Unknown] dicyclomine 20 mg tablet 20 mg PO TID #14 tabs 07/30/22 [Rx Last Taken Unknown] scopolamine base 1 mg over 3 days transdermal patch 1 patch transdermal Q3D #10 ea 09/23/22 [Rx Last Taken Unknown] ustekinumab 90 mg/mL subcutaneous syringe (Stelara) 90 mg subcut Q8W #1 mL 09/30/22 [Rx Last Taken Unknown] albuterol sulfate 90 mcg/actuation aerosol inhaler (Ventolin HFA) 1 inh inhalation Q6H PRN ASTHMA 10/24/22 [History Last Taken Unknown] lisinopril 30 mg tablet 30 mg PO DAILY 10/24/22 [History Last Taken Unknown] hydrocodone-acetaminophen 5-325mg 5mg-325mg 1 - 2 tab PO Q4H PRN pain 5 days #20tabs 10/25/22 [Rx Last Taken Unknown] Allergy/AdvReac Type Severity Reaction Status Date / Time amoxicillin Allergy Rash Verified 10/28/22 09:40 tramadol Allergy Rash Verified 10/28/22 09:40 Family History Mother Mental disorder Surgical History History of esophagogastroduodenoscopy (EGD) S/P ERCP S/P laparoscopic cholecystectomy Social History household members: children Smoking Status: Current every day smoker tobacco type: cigarettes substance use type: does not use ROS ROS ED Constitutional Constitutional ED: Denies chills or fever(s) Eyes Eyes: Denies change in vision or diplopia ENT ENT ED: Denies rhinorrhea or sore throat Cardiovascular Cardiovascular: Denies chest pain or palpitations Respiratory/Chest Respiratory/Chest: Denies cough or dyspnea Gastrointestinal Gastrointestinal: Reports abdominal pain and nausea; Denies diarrhea, melena or vomiting Genitourinary Genitourinary ED: Denies dysuria or hematuria Musculoskeletal Musculoskeletal: Denies back pain or neck pain Integumentary Denies abscess or rash Neurologic Neurologic: Denies headache(s), paresthesias or weakness Psychiatric Psychiatric: Denies anxiety or suicidal thoughts EXAM Physical Exam Const Vital Signs: 10/28/22 09:41 Temperature 97.7 F L Temperature Source Temporal Pulse Rate 91 Respiratory Rate 24 H Blood Pressure 136/114 H Blood Pressure Mean 121 Pulse Ox 100 Oxygen Delivery Method Room Air Positive well nourished and well developed Constitutional Narrative: Mild painful distress, tearful General Appearance ED: well developed HEENT Reports moist mucous membranes normocephalic and atraumatic Eyes PERRL and EOMs intact bilaterally Neck full ROM and supple Resp normal respiratory effort and clear to auscultation bilaterally Cardio regular rate, regular rhythm and no murmurs GI non-distended GI Narrative: Extremely tender with some involuntary guarding right upper quadrant, the rest of the abdomen is tender but without guarding or rebound tenderness. The abdomen is soft. Laparoscopic incisions scattered around the abdomen are clean,dry, without signs of any infection or dehiscence, with Steri-Strips intact overthem. Auscultation: normoactive bowel sounds Palpation: soft Back/Spine no CVA tenderness General Back: other FROM Extremity normal to inspection General Extremety ED: Negative for edema, pulses abnormal or tenderness General Extremity: Negative for edema or pulses abnormal Neuro oriented x3, CN's II-XII intact bilaterally and no sensory deficits noted Sensorium / Orientation: awake and alert Motor Exam: strength 5/5 throughout Skin no rashes or lesions noted and no wounds MDM MDM MDM Narrative Medical decision making narrative: Obtain labs and a CT and urinalysis. All normal. The CT shows some postoperative changes, nothing concerning for bile leak, plus she already has a biliary stent, and it does show an involuting right ovarian cyst with some free fluid nearby suggesting possible rupture, I discussed this with her after treating her pain, which helped some, she states yes prior to her surgery she started having some pain in her right pelvis that felt similar potentially to a prior ovarian cyst she has had in the past, she also has Crohn's, she cannot tell if this feels like her Crohn's disease or not, I touched base with Dr. Pardo who does not recommend any other imaging test based on what we know,I reassured the patient, I see no postoperative complications here, and I think it would be reasonable to treat her symptoms. She still has pain medications athome, we will give her a dose of Toradol here in addition to some other pain medication prior to discharge she is comfortable with that plan following up as scheduled before. Lab Data Attestation: I reviewed the patient's lab results. Labs: Laboratory Results - last 24 hr 10/28/22 10/28/22 10/28/22 09:50 10:00 10:00 WBC 6.2 RBC 4.04 L Hgb 12.7 Hct 37.1 MCV 91.8 MCH 31.4 MCHC 34.2 RDW Std Deviation 42.6 RDW Coeff of Kim 12.8 Plt Count 378 MPV 9.3 Immature Gran % (Auto) 0.300 Neut % (Auto) 46.6 L Lymph % (Auto) 40.9 [place] % (Auto) 9.8 Eos % (Auto) 1.6 Baso % (Auto) 0.8 Absolute Neuts (auto) 2.9 Absolute Lymphs (auto) 2.54 Nucleated RBC % 0 Sodium 139 Potassium 3.4 L Chloride 108 H Carbon Dioxide 22.0 Anion Gap 9 BUN 7 Creatinine 0.82 Estim Creat Clear Calc 76.95 Est GFR (MDRD) Af Amer 100 Est GFR (MDRD) Non-Af 83 BUN/Creatinine Ratio 8.6 L Glucose 91 Calcium 9.1 Total Bilirubin 0.30 AST 19 ALT 45 Alkaline Phosphatase 80 Total Protein 7.2 Albumin 3.6 Globulin 3.6 Albumin/Globulin Ratio 1.0 Lipase 24 Urine Color Yellow Urine Clarity Clear Urine pH 6.0 Ur Specific [place] 1.015 Urine Protein Negative Urine Glucose (UA) Normal Urine Ketones 5 H Urine Occult Blood Negative Urine Nitrite Negative Urine Bilirubin Negative Urine Urobilinogen 1 H Ur Leukocyte Esterase 25 H Urine RBC 0 SEEN Urine WBC 0-5 SEEN Ur Squamous Epith Cells 5-10 SEEN Urine Bacteria 0 SEEN Urine Mucus 0 SEEN Radiography Diagnostic Testing: Clinical Impression(s) from Imaging Studies Abdomen/Pelvis CT 10/28/22 09:54 IMPRESSION: Trace fluid and edema in the gallbladder fossa status post cholecystectomy. Interval biliary stent placement. Small involuting right ovarian cyst with trace free fluid in the pelvis. 3.2 cm left ovarian cyst. 2.3 cm round uterine lesion, likely leiomyoma. Colonic diverticulosis without acute diverticulitis. Electronically Signed: Yamila Patel MD at 10:52 EDT , My interpretation of the CT agrees with that of the radiologist. I reviewed theimages as well. I agree with the report. Discharge Plan Triage Chief Complaint: Abd Pain Other Complaint: Nausea/Vomiting ED Provider: Louis Saul Dx/Rx/DC Orders Clinical Impression: Diffuse abdominal pain, Rupture of cyst of right ovary Instructions: Abdominal Pain Prescriptions: No Action hydroxyzine pamoate 25 mg capsule 25 mg PO QHS escitalopram oxalate [Lexapro] 20 mg tablet 20 mg PO DAILY lamotrigine [Lamictal] 100 mg tablet 200 mg PO DAILY promethazine [promethazine] 25 mg tablet 25 mg PO Q6H PRN PRN (Reason: Nausea) Qty: 10 0RF dicyclomine 20 mg tablet 20 mg PO TID Qty: 14 0RF lisinopril 30 mg Tablet 30 mg PO DAILY albuterol sulfate [Ventolin HFA] 90 mcg/actuation Hfa Aerosol Inhaler 1 inh INHALATION Q6H PRN (Reason: ASTHMA) hydrocodone-acetaminophen 5-325 mg tablet 1 - 2 tab PO Q4H PRN (Reason: pain) 5 Days Qty: 20 0RF scopolamine base 1 mg over 3 days patch 3 day 1 patch transdermal Q3D Qty: 10 3RF Stelara 90 mg/mL syringe 90 mg subcut Q8W Qty: 1 5RF Rx Instructions: Crohn's Primary Care Provider: Michelle Grimm NP Referrals: Zeke Rascon MD [Med Staff - Active Staff] - Keep Mario appointment Michelle Grimm NP, MICROBIOLOGY INSTRUCTOR-C [Primary Care Provider] - Disposition Disposition: Home, Self Care What to do if you have Problems For any increased pain, shortness of breath, bleeding, nausea or vomiting, chestpain, or any unexpected problems, contact your Primary Care Provider. Call [facility] ([phone]) or report to the closest Emergency Room. Call 911 if necessary. 10/28/22 1109 <Electronically signed by Louis Saul MD> Cosigner Signature (if applicable): CC: SIXTO Grimm; Dr. Zeke Rascon MD; Kenn Ojeda, DO ~ Signed [facility] Work Phone: Evaluation + Plan note No data available for this section [facility] Evaluation note* Diagnosis Elevated blood pressure reading without diagnosis of hypertension- Primary Headache, unspecified headache type documented in this encounter [facility] note* Diagnosis Migraine with aura, not intractable, without status migrainosus- Primary Primary hypertension Unspecified essential hypertension Obesity, Class I, BMI 30-34.9 Obesity, unspecified Bipolar affective disorder, remission status unspecified (HCC) documented in this encounter [facility] note* Diagnosis Onset Date Resolution Status Abdominal pain acute Crohn's disease acute [facility] Work Phone: evaluation note* Diagnosis Acute cough- Primary documented in this encounter [facility] noteNo assessment information [facility] Work [facility]: [facility]* Diagnosis Dizziness- Primary Dizziness and giddiness Elevated blood pressure reading without diagnosis of hypertension documented in this encounter [facility] note* Diagnosis Hypertension, essential- Primary Unspecified essential hypertension Headache, unspecified headache type documented in this encounter [facility] note* Diagnosis Major depressive disorder, recurrent, moderate (HCC) [F33.1 (ICD-10-CM)]- Primary Major depressive disorder, recurrent episode, moderate Generalized anxiety disorder [F41.1 (ICD-10-CM)] Generalized anxiety disorder documented in this encounter [facility] note* Diagnosis Hypertension, essential- Primary Unspecified essential hypertension Hyperlipidemia, mixed Mixed hyperlipidemia Obesity, Class I, BMI 30-34.9 Obesity, unspecified documented in this encounter [facility] note* Diagnosis Onset Date Resolution Status Crohn's disease chronic [facility] Work Phone: Evaluation note* Diagnosis Left lower quadrant abdominal pain- Primary documented in this encounter [facility] note* Diagnosis Viral URI with cough- Primary Acute upper respiratory infections of unspecified site Nausea and vomiting, unspecified vomiting type [facility] Diagnosis Wheezing Mild intermittent asthma with acute exacerbation Unspecified asthma, with exacerbation [facility]* Diagnosis Sore throat- Primary Acute pharyngitis URI, acute Acute upper respiratory infections of unspecified site [facility]* Diagnosis Hip pain, acute, right- Primary [facility]* Diagnosis Hypertension, essential- Primary Unspecified essential hypertension [facility]* Diagnosis Onset Date Resolution Status Crohn's disease chronic Crohn's disease chronic [facility] Work Phone: Evaluation note* Diagnosis Acute midline thoracic back pain- Primary Strain of thoracic region, initial encounter [facility]* Diagnosis Essential (primary) hypertension- Primary Unspecified essential hypertension Right hand pain Pain in limb [facility] Diagnosis Onset Date Resolution Status Crohn's disease chronic Cannabis hyperemesis syndrom e concurrent with and due to cannabis abuse chronic Crohn's disease chronic [facility] Work Phone: Evaluation note* Diagnosis Onset Date Resolution Status Cannabis hyperemesis syndrom e concurrent with and due to cannabis abuse chronic Crohn's disease chronic [facility] Work Phone: Evaluation note* Diagnosis Wheezing Mild intermittent asthma with acute exacerbation Unspecified asthma, with exacerbation [facility]* Diagnosis Neck pain on left side- Primary Cervicalgia Headache, unspecified headache type [facility]* Diagnosis Hypertension, essential Unspecified essential hypertension [facility]* Diagnosis Onset Date Resolution Status Cannabis hyperemesis syndrom e concurrent with and due to cannabis abuse chronic Crohn's disease chronic S/P ERCP acute S/P laparoscopic cholecystectomy acute Cholecystitis resolved Choledocholithiasis resolved [facility] Work Phone: Evaluation note* Diagnosis Hypertension, essential Unspecified essential hypertension [facility] Diagnosis Onset Date Resolution Status S/P ERCP acute S/P laparoscopic cholecystectomy acute Cholecystitis resolved Choledocholithiasis resolved [facility] Work Phone: Evaluation note* Diagnosis Hypertension, essential Unspecified essential hypertension [facility]* Diagnosis Acute otitis media, right- Primary Unspecified otitis media URI, acute Acute upper respiratory infections of unspecified site [facility]* Diagnosis Gastroesophageal reflux disease without esophagitis Esophageal reflux Chronic nausea Nausea alone [facility] Diagnosis Wheezing Mild intermittent asthma with acute exacerbation Unspecified asthma, with exacerbation [facility]* Diagnosis Hypertension, essential Unspecified essential hypertension documented [facility] this [facility]* Diagnosis Hypertension, essential Unspecified essential hypertension documented [facility] this [facility]* Diagnosis Hypertension, essential Unspecified essential hypertension [facility]* Diagnosis Onset Date Resolution Status Nausea acute Cannabis hyperemesis syndrom e concurrent with and due to cannabis abuse chronic Crohn's disease chronic [facility] Work Phone: evaluation note* Diagnosis Acute pain of left knee- Primary Acute pain of left knee [facility]* Diagnosis Gastroesophageal reflux disease without esophagitis Esophageal reflux Chronic nausea Nausea alone [facility]* Diagnosis Wheezing Mild intermittent asthma with acute exacerbation Unspecified asthma, with exacerbation Hypertension, essential Unspecified essential hypertension [facility]* Diagnosis Hypertension, essential Unspecified essential hypertension documented [facility] this [facility]* Diagnosis Acute pain of left knee- Primary Acute pain of left knee documented [facility]* Diagnosis Hypertension, essential Unspecified essential hypertension [facility]* Diagnosis Internal derangement of left knee- Primary Unspecified internal derangement of knee Acute pain of left knee [facility]* Diagnosis Wellness examination- Primary Hyperlipidemia, mixed Mixed hyperlipidemia Hypertension, essential Unspecified essential hypertension Crohn's disease with complication, unspecified gastrointestinal tract location (HCC) Bipolar 2 disorder (HCC) Other bipolar disorders FREDY (generalized anxiety disorder) Generalized anxiety disorder Screening for cervical cancer Screening for malignant neoplasm of the cervix Encounter for immunization Need for other specified prophylactic vaccination against single bacterial disease Cystic lesion of abdominal viscera Other specified disorder of peritoneum documented in this encounter [facility] note* Diagnosis Cystic lesion of abdominal viscera Other specified disorder of peritoneum documented in this encounter [facility] note* Diagnosis Cystic lesion of abdominal viscera- Primary Other specified disorder of peritoneum documented in this encounter [facility] note* Diagnosis Bipolar 2 disorder (HCC)- Primary Other bipolar disorders FREDY (generalized anxiety disorder) Generalized anxiety disorder Major depressive disorder, remission status unspecified, unspecified whether recurrent Bipolar affective disorder, remission status unspecified (HCC) documented in this encounter [facility] note* Diagnosis Acute pain of left knee documented in this encounter [facility] note* Diagnosis Acute pain of left knee documented in this encounter [facility] note* Diagnosis Pain Generalized pain documented in this encounter [facility] note* Diagnosis Gastroesophageal reflux disease without esophagitis Esophageal reflux Chronic nausea Nausea alone Wheezing Mild intermittent asthma with acute exacerbation Unspecified asthma, with exacerbation documented in this encounter [facility] note* Diagnosis Wheezing Mild intermittent asthma with acute exacerbation Unspecified asthma, with exacerbation documented in this encounter [facility] note* Diagnosis Hip pain, acute, right documented in this encounter [facility] note* Diagnosis Right hand pain Pain in limb documented in this encounter [facility] note* Diagnosis No-show for appointment- Primary documented in this encounter [facility] note* Diagnosis Acute cough documented in this encounter [facility] note* Diagnosis Acute bilateral thoracic back pain documented in this encounter [facility] note* Diagnosis Hypertension, essential Unspecified essential hypertension documented in this encounter [facility] note* Diagnosis Low back pain without sciatica, unspecified back pain laterality, unspecified chronicity- Primary documented in this encounter [facility] note* Diagnosis Encounter for screening mammogram for breast cancer documented in this encounter [facility] note* Diagnosis Major depressive disorder, remission status unspecified, unspecified whether recurrent Bipolar affective disorder, remission status unspecified (HCC) FREDY (generalized anxiety disorder) Generalized anxiety disorder Bipolar 2 disorder (HCC) Other bipolar disorders documented in this encounter [facility] note* Diagnosis Encounter for gynecological examination (general) (routine) without abnormal findings- Primary Screening for cervical cancer Screening for malignant neoplasm of the cervix Encounter for screening for human papillomavirus (HPV) Special screening examination for human papillomavirus (HPV) Encounter for screening mammogram for breast cancer Pelvic pain in female Unspecified symptom associated with female genital organs Menorrhagia with regular cycle Excessive or frequent menstruation [facility] Diagnosis Hypertension, essential Unspecified essential hypertension [facility]* Diagnosis Gastroesophageal reflux disease without esophagitis Esophageal reflux Chronic nausea Nausea alone [facility] Diagnosis Gastroesophageal reflux disease without esophagitis Esophageal reflux Chronic nausea Nausea alone [facility]* Diagnosis Sore throat- Primary Acute pharyngitis Bacterial sinusitis Unspecified sinusitis (chronic) [facility]* Diagnosis Pelvic pain in female- Primary Unspecified symptom associated with female genital organs Menorrhagia with regular cycle Excessive or frequent menstruation Paratubal cyst Other noninflammatory disorder of ovary, fallopian tube, and broad ligament Intramural and submucous leiomyoma of uterus Adenomyosis of the uterus documented [facility]* Diagnosis Menorrhagia with regular cycle- Primary Excessive or frequent menstruation Intramural and submucous leiomyoma of uterus Adenomyosis of the uterus documented [facility] this [facility]* Diagnosis Gastroesophageal reflux disease without esophagitis Esophageal reflux Chronic nausea Nausea alone [facility]* Diagnosis Submucous leiomyoma of uterus- Primary Adenomyosis Endometriosis of uterus Abnormal uterine bleeding (AUB) Pre-op exam Preoperative examination, unspecified [facility] Additional Instructions Please continue to monitor your blood pressure because if remains high you may need to be started on medication. Please return to the ER should you have any further concernsWOhio [facility] Work Phone: Hospital Discharge instructions Additional Instructions Thank you for trusting us with your care today! Please take Zofran as needed for nausea or vomiting. Please take prednisone as prescribed. Please take Tylenol (2 pills, 650 mg), ibuprofen (2 pills, 400 mg) every 6 hours as needed for pain and fever control. Please return to the emergency department if your symptoms change or worsen. Specifically for worsening abdominal pain, intractable vomiting not controlled by Zofran, no bowel movements for greater than 14 days. Please follow with your primary care physician for further outpatient evaluation and management.[facility] Work Phone: Hospital Discharge instructions Additional Instructions Please follow-up with Dr. Ojeda/GI and/or general surgery for repeat evaluation and return to the ER should you have any further concernsWOhio State [facility] Work Phone: Hospital Discharge instructions Additional Instructions Follow-up with Dr. Ojeda within the next week. Vicodin for pain. Cipro 1 pill a day for 10 days. Discussed Flagyl 1 pill 3 times a day. Prednisone 40 mg a day for 2 weeks. Plenty of fluids and rest. Return if feeling worse.[facility] Work Phone: Hospital Discharge instructions Additional Instructions Please follow-up with Dr. Ojeda and return for any worsening of your symptoms. [facility] Work Phone: Hospital Discharge instructions Additional Instructions I prescribed Phenergan which is as needed for nausea and vomiting. I recommend you do not smoke weed as this can worsen vomiting issues. You can take Tylenol for pain and Imodium for diarrhea as needed.[facility] Work Phone: Reason for referral (narrative)* Diagnostic Procedure Only (Urgent) - Closed Specialty Diagnoses / Procedures Referred By Contac elba Referred To Contact XR IMAGING Diagnoses Hip pain, acute, right Procedures XR HIP GENERAL 3V PELV/AP/LAT RIGHT RADEX HIP UNILATERAL WITH PELVIS 2-3 VIEWS Carrillo Hudson APRN.CNP [address] [place] [address] Xr Imaging Referral ID Status Reason Start Date Expiration Date V isits Requested Visits Authorized [id number] Closed Auto-Generate d Referral 05/10/2022 06/09/2023 1 1 [facility] for referral (narrative)* Diagnostic Procedure Only (Urgent) - Pending Review Specialty Diagnoses / Procedures Referred By Contac t Referred To Contact XR IMAGING Diagnoses Acute midline thoracic back pain Procedures XR THORACIC GENERAL 3V AP/LAT/SWIMMERS RADEX SPINE THORACIC 3 VIEWS [facility] [address] [address] [place] [address] Xr Imaging Referral ID Status Reason Start Date Expiration Date Visits Requested Visits Authorized [id number] Pending Review Auto-Generat ed Referral 06/11/2022 07/11/2023 1 1 [facility] for referral (narrative)* Diagnostic Procedure Only (Routine) - Closed Specialty Diagnoses / Procedures Referred By Contac t Referred To Contact XR IMAGING Diagnoses Right hand pain Procedures XR HAND GENERAL 3V PA/LAT/OBL RIGHT RADEX HAND MINIMUM 3 VIEWS HollylogMichelle turcios ASSESSMENT DIRECTOR.[employer]SEMBLER [address] [place] [address] Xr Imaging Referral ID Status Reason Start Date Expiration Date V isits Requested Visits Authorized [id number] Closed Auto-Generate d Referral 06/17/2022 07/17/2023 1 1 [facility] for referral (narrative)* Diagnostic Procedure Only (Urgent) - Closed Specialty Diagnoses / Procedures Referred By Contac t Referred To Contact XR IMAGING Diagnoses Acute pain of left knee Procedures XR KNEE GENERAL 4V AP BOTH/PA BOTH/LAT/MERC LEFT RADIOLOGIC EXAM KNEE COMPLETE 4/MORE VIEWS Carrillo Hudson, ASSESSMENT DIRECTOR.KITCH[employer] FOOD ASSEMBLER [address] [place] [address] [place] [address] Referral ID Status Reason Start Date Expiration Date V isits Requested Visits Authorized [id number] Closed Auto-Generate d Referral 11/05/2023 12/04/2024 1 1 [facility] for referral (narrative)* Diagnostic Procedure Only (Routine) - Authorized Specialty Diagnoses / Procedures Referred By Contac t Referred To Contact US IMAGING Diagnoses Cystic lesion of abdominal viscera Procedures US ABDOMEN LTD US ABDOMINAL REAL TIME W/IMAGE LIMITED Sarmad Wren, ASSESSMENT DIRECTOR.KITCH[employer] FOOD ASSEMBLER [address] [place] [address] [place] [address] Referral ID Status Reason Start Date Expiration Date Visits Requested Visits Authorized [id number] Authorized Auto-Generat ed Referral 11/28/2023 12/27/2024 1 1 * Consult, Test, Treat (Routine) - Authorized Specialty Diagnoses / Procedures Referred By Contac t Referred To Contact Diagnoses Screening for cervical cancer Procedures CONSULT TO [facility] OFF[facility]/OUTPATIENT [facility] 60 MINUTES Sarmad Wren APRN.[employer]OD ASSEMBLER [address] [place] [address] Referral ID Status Reason Start Date Expiration Date Visits Requested Visits Authorized [id number] Authorized PCP Requested Referral Auto-Generate d Referral 11/28/2023 11/27/2024 1 1 [facility] for referral (narrative)* Diagnostic Procedure Only (Routine) - Closed Specialty Diagnoses / Procedures Referred By Contac t Referred To Contact US IMAGING Diagnoses Cystic lesion of abdominal viscera Procedures US ABDOMEN LTD US ABDOMINAL REAL TIME W/IMAGE LIMITED Sarmad Wren APRN.[employer] ASSEMBLER [address] [place] [address] [place] [address] Referral ID Status Reason Start Date Expiration Date V isits Requested Visits Authorized [id number] Closed Auto-Generate d Referral 11/28/2023 12/27/2024 1 1 [facility] for referral (narrative)* Diagnostic Procedure Only (Urgent) - Closed Specialty Diagnoses / Procedures Referred By Contac t Referred To Contact XR IMAGING Diagnoses Acute pain of left knee Procedures XR KNEE GENERAL 4V AP BOTH/PA BOTH/LAT/MERC LEFT RADIOLOGIC EXAM KNEE COMPLETE 4/MORE VIEWS Carrillo Hudson APRN.[employer] FOOD ASSEMBLER [address] [place] [address] [place] [address] Referral ID Status Reason Start Date Expiration Date V isits Requested Visits Authorized [id number] Closed Auto-Generate d Referral 11/05/2023 12/04/2024 1 1 [facility] for referral (narrative)* Diagnostic Procedure Only (Urgent) - Closed Specialty Diagnoses / Procedures Referred By Contac t Referred To Contact XR IMAGING Diagnoses Acute pain of left knee Procedures XR KNEE GENERAL 4V AP BOTH/PA BOTH/LAT/MERC LEFT RADIOLOGIC EXAM KNEE COMPLETE 4/MORE VIEWS Yu Castillo MD [address] [place] [id number] [place] [address] Referral ID Status Reason Start Date Expiration Date V isits Requested Visits Authorized [id number] Closed Auto-Generate d Referral 09/08/2023 10/07/2024 1 1 [facility] for referral (narrative)* Diagnostic Procedure Only (Urgent) - Closed Specialty Diagnoses / Procedures Referred By Contac t Referred To Contact XR IMAGING Diagnoses Pain Procedures XR THORACIC LIMITED 2V AP/LAT RADEX SPINE THORACIC 2 VIEWS Alanna Mao APRN.[employer] ASSEMBLER [address] [place] [address] [place] [address] Referral ID Status Reason Start Date Expiration Date V isits Requested Visits Authorized [id number] Closed Auto-Generate d Referral 06/03/2023 07/02/2024 1 1 * Diagnostic Procedure Only (Urgent) - Closed Specialty Diagnoses / Procedures Referred By Contac t Referred To Contact XR IMAGING Diagnoses Pain Procedures XR LUMBAR GENERAL 3V AP/LAT/L5-S1 RADEX SPINE LUMBOSACRAL 2/3 VIEWS Alanna Mao APRN.[employer] FOOD ASSEMBLER [address] [place] [address] [place] [address] Referral ID Status Reason Start Date Expiration Date V isits Requested Visits Authorized [id number] Closed Auto-Generate d Referral 06/03/2023 07/02/2024 1 1 [facility] for referral (narrative)* Diagnostic Procedure Only (Urgent) - Closed Specialty Diagnoses / Procedures Referred By Contac t Referred To Contact XR IMAGING Diagnoses Hip pain, acute, right Procedures XR HIP GENERAL 3V PELV/AP/LAT RIGHT RADEX HIP UNILATERAL WITH PELVIS 2-3 VIEWS Carrillo Hudson, ASSESSMENT DIRECTOR.[employer] ASSEMBLER [address] [place] [address] [place] [address] Referral ID Status Reason Start Date Expiration Date V isits Requested Visits Authorized [id number] Closed Auto-Generate d Referral 05/10/2022 06/09/2023 1 1 [facility] for referral (narrative)* Diagnostic Procedure Only (Routine) - Closed Specialty Diagnoses / Procedures Referred By Contac t Referred To Contact XR IMAGING Diagnoses Right hand pain Procedures XR HAND GENERAL 3V PA/LAT/OBL RIGHT RADEX HAND MINIMUM 3 VIEWS Michelle Grimm ASSESSMENT DIRECTOR.K[employer] FOOD ASSEMBLER [address] [place] [address] [place] [address] Referral ID Status Reason Start Date Expiration Date V isits Requested Visits Authorized [id number] Closed Auto-Generate d Referral 06/17/2022 07/17/2023 1 1 [facility] for referral (narrative)* Diagnostic Procedure Only (Urgent) - Closed Specialty Diagnoses / Procedures Referred By Contac t Referred To Contact XR IMAGING Diagnoses Acute bilateral thoracic back pain Procedures XR THORACIC LIMITED 2V AP/LAT X-RAY DORSAL SPINE 2 VW Stefani Gaspar ASSESSMENT DIRECTOR.KITCHEN FOOD ASSEMBLER [address] [place] [address] [place] [address] Referral ID Status Reason Start Date Expiration Date V isits Requested Visits Authorized [id number] Closed Auto-Generate d Referral 05/22/2021 06/21/2022 1 1 [facility] for referral (narrative)* Diagnostic Procedure Only (Routine) - New Request Specialty Diagnoses / Procedures Referred By Wilson t Referred To Contact BR IMAGING Diagnoses Encounter for screening mammogram for breast cancer Procedures SOURAV SCREENING W KALEY SCREENING DIGITAL BREAST TOMOSYNTHESIS BI SCREENING MAMMOGRAPHY BI 2-VIEW BREAST INC CAD April Corral MD [address] [place] [address] [facility] [address] [place] [address] Referral ID Status Reason Start Date Expiration Date Visits Requested Visits Authorized [id number] New Request Auto-Generat ed Referral 02/18/2024 03/19/2025 1 1 [facility] for referral (narrative)* Diagnostic Procedure Only (Routine) - Authorized Specialty Diagnoses / Procedures Referred By Wilson t Referred To Contact [facility] Diagnoses Pelvic pain in female Menorrhagia with regular cycle Procedures PELVIC US I US PELVIC NONOBSTETRIC REAL-TIME IMAGE COMPLETE Lissa Meade MD [address] [place] [address] [facility] [address] [place] [address] Referral ID Status Reason Start Date Expiration Date Visits Requested Visits Authorized [id number] Authorized Auto-Generat ed Referral 06/04/2024 06/04/2025 1 1 * Diagnostic Procedure Only (Routine) - Authorized Specialty Diagnoses / Procedures Referred By Wilson t Referred To Contact BR IMAGING Diagnoses Encounter for screening mammogram for breast cancer Procedures SOURAV SCREENING W KALEY SCREENING DIGITAL BREAST TOMOSYNTHESIS BI SCREENING MAMMOGRAPHY BI 2-VIEW BREAST INC Lissa Howard MD [address] [place] [address] [facility] [address] [place] [address] Referral ID Status Reason Start Date Expiration Date Visits Requested Visits Authorized [id number] Authorized Auto-Generat ed Referral 06/04/2024 07/04/2025 1 1 [facility] for visit Narrative* Diagnostic Procedure Only (Urgent) - Closed Specialty Diagnoses / Procedures Referred By Contac t Referred To Contact XR IMAGING Diagnoses Acute pain of left knee Procedures XR KNEE GENERAL 4V AP BOTH/PA BOTH/LAT/MERC LEFT RADIOLOGIC EXAM KNEE COMPLETE 4/MORE VIEWS Carrillo Hudson, ASSESSMENT DIRECTOR.K[employer] FOOD ASSEMBLER [address] [place] [address] [place] [address] Referral ID Status Reason Start Date Expiration Date V isits Requested Visits Authorized [id number] Closed Auto-Generate d Referral 11/05/2023 12/04/2024 1 1 [facility] for visit Narrative* Diagnostic Procedure Only (Urgent) - Closed Specialty Diagnoses / Procedures Referred By Contac t Referred To Contact XR IMAGING Diagnoses Acute pain of left knee Procedures XR KNEE GENERAL 4V AP BOTH/PA BOTH/LAT/MERC LEFT RADIOLOGIC EXAM KNEE COMPLETE 4/MORE VIEWS Yu Castillo MD [address] [place] [address] [place] [address] Referral ID Status Reason Start Date Expiration Date V isits Requested Visits Authorized [id number] Closed Auto-Generate d Referral 09/08/2023 10/07/2024 1 1 [facility] for visit Narrative* Diagnostic Procedure Only (Urgent) - Closed Specialty Diagnoses / Procedures Referred By Contac t Referred To Contact XR IMAGING Diagnoses Pain Procedures XR THORACIC LIMITED 2V AP/LAT RADEX SPINE THORACIC 2 VIEWS Alanna Mao ASSESSMENT DIRECTOR.KITCH[employer] FOOD ASSEMBLER [address] [place] [address] [place] [address] Referral ID Status Reason Start Date Expiration Date V isits Requested Visits Authorized [id number] Closed Auto-Generate d Referral 06/03/2023 07/02/2024 1 1 [facility] for visit Narrative* Diagnostic Procedure Only (Urgent) - Closed Specialty Diagnoses / Procedures Referred By Contac t Referred To Contact XR IMAGING Diagnoses Hip pain, acute, right Procedures XR HIP GENERAL 3V PELV/AP/LAT RIGHT RADEX HIP UNILATERAL WITH PELVIS 2-3 VIEWS Carrillo Hudson, ASSESSMENT DIRECTOR.K[employer] FOOD ASSEMBLER [address] [place] [address] [place] [address] Referral ID Status Reason Start Date Expiration Date V isits Requested Visits Authorized [id number] Closed Auto-Generate d Referral 05/10/2022 06/09/2023 1 1 [facility] for visit Narrative* Diagnostic Procedure Only (Routine) - Closed Specialty Diagnoses / Procedures Referred By Contac t Referred To Contact XR IMAGING Diagnoses Right hand pain Procedures XR HAND GENERAL 3V PA/LAT/OBL RIGHT RADEX HAND MINIMUM 3 VIEWS Michelle Grimm ASSESSMENT DIRECTOR.K[employer] FOOD ASSEMBLER [address] [place] [address] [place] [address] Referral ID Status Reason Start Date Expiration Date V isits Requested Visits Authorized [id number] Closed Auto-Generate d Referral 06/17/2022 07/17/2023 1 1 [facility] for visit Narrative* Diagnostic Procedure Only (Urgent) - Closed Specialty Diagnoses / Procedures Referred By Contac t Referred To Contact XR IMAGING Diagnoses Acute bilateral thoracic back pain Procedures XR THORACIC LIMITED 2V AP/LAT X-RAY DORSAL SPINE 2 VW Stefani Gaspar, ASSESSMENT DIRECTOR.KITCHEN FOOD ASSEMBLER [address] [place] [address] [place] [address] Referral ID Status Reason Start Date Expiration Date V isits Requested Visits Authorized [id number] Closed Auto-Generate d Referral 05/22/2021 06/21/2022 1 1 [facility] for visit Narrative* Diagnostic Procedure Only (Routine) - Closed Specialty Diagnoses / Procedures Referred By Contac t Referred To Contact [facility] Diagnoses Pelvic pain in female Menorrhagia with regular cycle Procedures PELVIC US WHI US PELVIC NONOBSTETRIC REAL-TIME IMAGE COMPLETE Lissa Meade MD [address] [place] [address] Phone: tel: fax: [facility] [address] [place] [address] Referral ID Status Reason Start Date Expiration Date V isits Requested Visits Authorized [id number] Closed Auto-Generate d Referral 06/04/2024 06/04/2025 1 1 [facility] Summary Purpose Family History No Family History Records Found Relationship Condition Age at Onset Recorded Date/T mikayla mother Mental disorder Unknown Advance Directives No Advanced Directives Records Found Advance Directive Response Recorded Date/ Time Living Will No September 26, 2021 7 :59am Power of Boiler Helper No September 26, 2021 7:59am Advance Directive Response Recorded Date/ Time Living Will No September 30, 2021 6 :19pm Power of Boiler Helper No September 30, 2021 6:19pm Advance Directive Response Recorded Date/ Time Living Will No November 21, 2021 3:05pm Power of Boiler Helper No November 21 3:05pm Advance Directive Response Recorded Date/ Time Living Will No January 01 9:30am Power of Boiler Helper No January 01 9:30am Advance Directive Response Recorded Date/ Time Living Will No January 24, 2022 10:27pm Power of Boiler Helper No January 10:27pm Advance Directive Response Recorded Date/ Time Living Will No February 19 6:03pm Power of Boiler Helper No February 19, 2022 6:03pm Advance Directive Response Recorded Date/ Time Living Will No April 13 11:36am Power of Boiler Helper No April 13, 2022 11:36am Advance Directive Response Recorded Date/ Time Living Will No May 16 8:25am Power of Boiler Helper No May 16 023 8:25am Advance Directive Response Recorded Date/ Time Living Will No May 22 10:57pm Power of Boiler Helper No May 22, 2022 10:57pm Advance Directive Response Recorded Date/ Time Living Will No July 13, 2022 12:25pm Power of Boiler Helper No July 13 12:25pm Advance Directive Response Recorded Date/ Time Living Will No July 30, 2022 8:16am Power of Boiler Helper No July 30 8:16am Advance Directive Response Recorded Date/ Time Living Will No August 11, 2022 10:07am Power of Boiler Helper No August 11 10:07am Advance Directive Response Recorded Date/ Time Living Will No August 12, 2022 7:11pm Power of Boiler Helper No August 12 7:11pm Advance Directive Response Recorded Date/ Time Living Will No September 02, 2022 11:16am Power of Boiler Helper No September 02 11:16am Advance Directive Response Recorded Date/ Time Living Will No September 10, 2022 1: 48am Power of Boiler Helper No September 10, 2022 1:48am Advance Directive Response Recorded Date/ Time Living Will No October 18, 2022 4 :09pm Power of Boiler Helper No October 18, 2022 4:09pm Advance Directive Response Recorded Date/ Time Living Will No October 25, 2022 6:29pm Power of Boiler Helper No October 25 6:29pm Advance Directive Response Recorded Date/ Time Living Will No October 28, 2022 9:53am Power of Boiler Helper No October 28 9:53am Advance Directive Response Recorded Date/ Time Living Will No November 23, 2022 12:45pm Power of Boiler Helper No November 23 12:45pm Advance Directive Response Recorded Date/ Time Living Will No December 06, 2022 5:13pm Power of Boiler Helper No December 06 5:13pm Advance Directive Response Recorded Date/ Time Living Will No July 27, 2023 3:50pm Power of Boiler Helper No July 26 3:50pm Advance Directive Response Recorded Date/ Time Living Will No April 27 023 10:35am Power of Boiler Helper No April 27, 2023 10:35am Medications Administered Section Inactive Administered Medications - up to 3 most recent administrations Medication Order MAR Action Action Date Dose Rate Site keTORolac 60 mg injection (TORADOL) 60 mg, INTRAMUSCULAR, ONCE, 1 dose, On Fri08/07/21 at 1130, Ketorolac (Toradol) is indicated for [...] 8:57 AM EDT 30 mg Deltoid, Right Chief Complaint and Reason for Visit Chief Complaint ABD PAIN ABD PAIN, CROHNS N/V/D Reason for Visit Abdominal pain Crohn's disease Chief Complaint ABD PAIN ABD PAIN, CROHNS N/V/D ABD Reason for Visit Abdominal pain Crohn's disease Chief Complaint ABD PAIN, CROHNS N/V/D ABD ABD PAIN, N/V/D Reason for Visit Abdominal pain Crohn's disease Chief Complaint N/V/D ABD ABD PAIN, N/V/D ABD Chief Complaint N/V/D ABD ABD PAIN, N/V/D ABD HTN Chief Complaint ABD PAIN, N/V/D ABD HTN FU Reason for Visit Crohn's disease Chief Complaint ABD PAIN, N/V/D ABD HTN FU PELVIC PAIN Reason for Visit Crohn's disease Chief Complaint ABD HTN FU PELVIC PAIN CAP ENDO N/V/D abd pain Reason for Visit Crohn's disease Chief Complaint HTN FU PELVIC PAIN CAP ENDO N/V/D abd pain 3 M FU EORDERS ABD PAIN Reason for Visit Crohn's disease Crohn's disease Chief Complaint HTN FU PELVIC PAIN CAP ENDO N/V/D abd pain 3 M FU EORDERS ABD PAIN abd pain Reason for Visit Crohn's disease Crohn's disease Chief Complaint N/V/D abd pain 3 M FU EORDERS ABD PAIN abd pain 2 MO FU ABD PAIN Reason for Visit Crohn's disease Cannabis hyperemesis syndrome concurrent with and due to cannabis abuse Crohn's disease Chief Complaint N/V/D abd pain 3 M FU EORDERS ABD PAIN abd pain 2 MO FU ABD PAIN STELARA 390MG abd Reason for Visit Crohn's disease Cannabis hyperemesis syndrome concurrent with and due to cannabis abuse Crohn's disease Chief Complaint abd pain 3 M FU EORDERS ABD PAIN abd pain 2 MO FU ABD PAIN STELARA 390MG abd ABD Reason for Visit Crohn's disease Cannabis hyperemesis syndrome concurrent with and due to cannabis abuse Crohn's disease Chief Complaint 3 M FU EORDERS ABD PAIN abd pain 2 MO FU ABD PAIN STELARA 390MG abd ABD ABD Reason for Visit Crohn's disease Cannabis hyperemesis syndrome concurrent with and due to cannabis abuse Crohn's disease Chief Complaint ABD PAIN abd pain 2 MO FU ABD PAIN STELARA 390MG abd ABD ABD n/v Reason for Visit Cannabis hyperemesis syndrome concurrent with and due to cannabis abuse Crohn's disease Chief Complaint ABD PAIN abd pain 2 MO FU ABD PAIN STELARA 390MG abd ABD ABD n/v CP Reason for Visit Cannabis hyperemesis syndrome concurrent with and due to cannabis abuse Crohn's disease Chief Complaint 2 MO FU ABD PAIN STELARA 390MG abd ABD ABD n/v CP Injection INT LABS ABD PAIN Reason for Visit Cannabis hyperemesis syndrome concurrent with and due to cannabis abuse Crohn's disease Chief Complaint 2 MO FU ABD PAIN STELARA 390MG abd ABD ABD n/v CP Injection INT LABS Reason for Visit Cannabis hyperemesis syndrome concurrent with and due to cannabis abuse Crohn's disease Chief Complaint 2 MO FU ABD PAIN STELARA 390MG abd ABD ABD n/v CP Injection INT LABS ABD PAIN GALLBLADDER ER 6/9 Reason for Visit Cannabis hyperemesis syndrome concurrent with and due to cannabis abuse Crohn's disease S/P ERCP S/P laparoscopic cholecystectomy Cholecystitis Choledocholithiasis Chief Complaint 2 MO FU ABD PAIN STELARA 390MG abd ABD ABD n/v CP Injection INT LABS ABD PAIN GALLBLADDER ER 6/9 ABD PAIN Reason for Visit Cannabis hyperemesis syndrome concurrent with and due to cannabis abuse Crohn's disease S/P ERCP S/P laparoscopic cholecystectomy Cholecystitis Choledocholithiasis Chief Complaint abd ABD ABD n/v CP Injection INT LABS ABD PAIN GALLBLADDER ER 6/9 ABD PAIN ABD Reason for Visit S/P ERCP S/P laparoscopic cholecystectomy Cholecystitis Choledocholithiasis Chief Complaint ABD ABD n/v CP Injection INT LABS ABD PAIN GALLBLADDER ER 10/18 ABD PAIN ABD left abd pain Reason for Visit S/P ERCP S/P laparoscopic cholecystectomy Cholecystitis Choledocholithiasis Chief Complaint FU ABD PAIN n/v/d Reason for Visit Nausea Cannabis hyperemesis syndrome concurrent with and due to cannabis abuse Crohn's disease Chief Complaint ABD PAIN post surgery pain/vomiting FU ABD PAIN Reason for Visit Nausea Cannabis hyperemesis syndrome concurrent with and due to cannabis abuse Crohn's disease Health Concerns Infection Onset Date Last Indicated Resolved Time COVID-19 Rule-Out 03/23/2022 03/23/2022 Infection Onset Date Last Indicated Resolved Time COVID-19 Rule-Out 04/19/2022 04/19/2022 Reason for Referral Specialty Diagnoses / Procedures Referred By Contac t Referred To Contact Alanna Mao APRN.KITCHEN FOOD ASSEMBLER [address] [place] [address] Referral ID Status Reason Start Date Expiration Date Visits Re quested Visits Authorized [id number] Closed 1 1 Specialty Diagnoses / Procedures Referred By Contac t Referred To Contact Diagnoses Wheezing Mild intermittent asthma with acute exacerbation HollylogMichelle turcios APRN.KITCHEN FOOD ASSEMBLER [address] [place] [address] Referral ID Status Reason Start Date Expiration Date Visits Re quested Visits Authorized [id number] Closed 1 1 Specialty Diagnoses / Procedures Referred By Contac t Referred To Contact Orthopedics Diagnoses Acute pain of left knee Procedures CONSULT TO ORTHOPAEDICS OFFICE/OUTPATIENT [facility] 60 MINUTES Yu Castillo MD [address] [place] [address] Referral ID Status Reason Start Date Expiration Date Visits Requested Visits Authorized [id number] Authorized PCP Requested Referral 09/08/2023 09/07/2024 1 1 Specialty Diagnoses / Procedures Referred By Contac t Referred To Contact XR IMAGING Diagnoses Acute pain of left knee Procedures XR KNEE GENERAL 4V AP BOTH/PA BOTH/LAT/MERC LEFT RADIOLOGIC EXAM KNEE COMPLETE 4/MORE VIEWS Yu Castillo MD [address] [place] [address] [place] [address] Referral ID Status Reason Start Date Expiration Date V isits Requested Visits Authorized [id number] Closed Auto-Generate d Referral 09/08/2023 10/07/2024 1 1 Specialty Diagnoses / Procedures Referred By Wilson arreola Referred To Contact MR IMAGING Diagnoses Internal derangement of left knee Procedures MRI KNEE WO IVCON LEFT MRI ANY JT LOWER EXTREM W/O CONTRAST MATRL Darnell Currie, V, DO [address] [place] [address] [place] [address] Referral ID Status Reason Start Date Expiration Date Visits Requested Visits Authorized [id number] Pending Review Auto-Generat ed Referral 11/14/2023 12/13/2024 1 1 Specialty Diagnoses / Procedures Referred By Wilson arreola Referred To Contact Diagnoses FREDY (generalized anxiety disorder) Bipolar 2 disorder (HCC) Procedures PROVIDER ORDERED FOLLOW UP OFFICE/OUTPATIENT [facility] 60 MINUTES Michelle Powell APRN.KITCHEN FOOD ASSEMBLER [address] [facility] [place] [address] Referral ID Status Reason Start Date Expiration Date Visits Requested Visits Authorized [id number] Authorized PCP Requested Referral 01/25/2024 12/24/2024 1 1 Additional Source Comments INFORMATION SOURCE (unrecogn ized section and content) DATE CREATED AUTHOR 11/05/2017 [facility] DATE CREATED AUTHOR AUTHOR'S ORGANIZ ATION 05/25/2020 [facility] ([place]) DATE CREATED AUTHOR AUTHOR'S ORGANIZ ATION 12/21/2021 [facility] DATE CREATED AUTHOR AUTHOR'S ORGANIZ ATION 12/26/2023 [facility] DATE CREATED AUTHOR AUTHOR'S ORGANIZ ATION 09/23/2024 [facility] DATE CREATED AUTHOR AUTHOR'S ORGANIZ ATION 09/27/2024 [facility] DATE CREATED AUTHOR AUTHOR'S ORGANIZ ATION 10/13/2024 [facility] Source Comments (unrecognize d section and content) In the event this informatio n is protected by the Federal Confidentiality of Alcohol and Drug Abuse Patient Records regulations: The Federal rules restrict any use of the information to criminally investigate or prosecute any alcohol or drug abuse patient.[facility] the event this information is protected by the Federal Confidentiality of Alcohol and Drug Abuse Patient Records regulations: The Federal rules restrict any use of the information to criminally investigate or prosecute any alcohol or drug abuse patient.[facility] the event this information is protected by the Federal Confidentiality of Alcohol and Drug Abuse Patient Records regulations: The Federal rules restrict any use of the information to criminally investigate or prosecute any alcohol or drug abuse patient.[facility] the event this information is protected by the Federal Confidentiality of Alcohol and Drug Abuse Patient Records regulations: The Federal rules restrict any use of the information to criminally investigate or prosecute any alcohol or drug abuse patient.[facility] Center[facility] the event this information is protected by the Federal Confidentiality of Alcohol and Drug Abuse Patient Records regulations: The Federal rules restrict any use of the information to criminally investigate or prosecute any alcohol or drug abuse patient.[facility] Center[facility] the event this information is protected by the Federal Confidentiality of Alcohol and Drug Abuse Patient Records regulations: The Federal rules restrict any use of the information to criminally investigate or prosecute any alcohol or drug abuse patient.[facility] Center[facility] the event this information is protected by the Federal Confidentiality of Alcohol and Drug Abuse Patient Records regulations: The Federal rules restrict any use of the information to criminally investigate or prosecute any alcohol or drug abuse patient.[facility] Center[facility] the event this information is protected by the Federal Confidentiality of Alcohol and Drug Abuse Patient Records regulations: The Federal rules restrict any use of the information to criminally investigate or prosecute any alcohol or drug abuse patient.[facility] Center[facility] the event this information is protected by the Federal Confidentiality of Alcohol and Drug Abuse Patient Records regulations: The Federal rules restrict any use of the information to criminally investigate or prosecute any alcohol or drug abuse patient.[facility] CenterIn the event this information is protected by the Federal Confidentiality of Alcohol and Drug Abuse Patient Records regulations: The Federal rules restrict any use of the information to criminally investigate or prosecute any alcohol or drug abuse patient.[facility] CenterIn the event this information is protected by the Federal Confidentiality of Alcohol and Drug Abuse Patient Records regulations: The Federal rules restrict any use of the information to criminally investigate or prosecute any alcohol or drug abuse patient.[facility] CenterIn the event this information is protected by the Federal Confidentiality of Alcohol and Drug Abuse Patient Records regulations: The Federal rules restrict any use of the information to criminally investigate or prosecute any alcohol or drug abuse patient.[facility] CenterIn the event this information is protected by the Federal Confidentiality of Alcohol and Drug Abuse Patient Records regulations: The Federal rules restrict any use of the information to criminally investigate or prosecute any alcohol or drug abuse patient.[facility] CenterIn the event this information is protected by the Federal Confidentiality of Alcohol and Drug Abuse Patient Records regulations: The Federal rules restrict any use of the information to criminally investigate or prosecute any alcohol or drug abuse patient.[facility] CenterIn the event this information is protected by the Federal Confidentiality of Alcohol and Drug Abuse Patient Records regulations: The Federal rules restrict any use of the information to criminally investigate or prosecute any alcohol or drug abuse patient.[facility] CenterIn the event this information is protected by the Federal Confidentiality of Alcohol and Drug Abuse Patient Records regulations: The Federal rules restrict any use of the information to criminally investigate or prosecute any alcohol or drug abuse patient.[facility] CenterIn the event this information is protected by the Federal Confidentiality of Alcohol and Drug Abuse Patient Records regulations: The Federal rules restrict any use of the information to criminally investigate or prosecute any alcohol or drug abuse patient.[facility] CenterIn the event this information is protected by the Federal Confidentiality of Alcohol and Drug Abuse Patient Records regulations: The Federal rules restrict any use of the information to criminally investigate or prosecute any alcohol or drug abuse patient.[facility] CenterIn the event this information is protected by the Federal Confidentiality of Alcohol and Drug Abuse Patient Records regulations: The Federal rules restrict any use of the information to criminally investigate or prosecute any alcohol or drug abuse patient.[facility] CenterIn the event this information is protected by the Federal Confidentiality of Alcohol and Drug Abuse Patient Records regulations: The Federal rules restrict any use of the information to criminally investigate or prosecute any alcohol or drug abuse patient.[facility] CenterIn the event this information is protected by the Federal Confidentiality of Alcohol and Drug Abuse Patient Records regulations: The Federal rules restrict any use of the information to criminally investigate or prosecute any alcohol or drug abuse patient.[facility] CenterIn the event this information is protected by the Federal Confidentiality of Alcohol and Drug Abuse Patient Records regulations: The Federal rules restrict any use of the information to criminally investigate or prosecute any alcohol or drug abuse patient.[facility] CenterIn the event this information is protected by the Federal Confidentiality of Alcohol and Drug Abuse Patient Records regulations: The Federal rules restrict any use of the information to criminally investigate or prosecute any alcohol or drug abuse patient.[facility] CenterIn the event this information is protected by the Federal Confidentiality of Alcohol and Drug Abuse Patient Records regulations: The Federal rules restrict any use of the information to criminally investigate or prosecute any alcohol or drug abuse patient.[facility] CenterIn the event this information is protected by the Federal Confidentiality of Alcohol and Drug Abuse Patient Records regulations: The Federal rules restrict any use of the information to criminally investigate or prosecute any alcohol or drug abuse patient.[facility] CenterIn the event this information is protected by the Federal Confidentiality of Alcohol and Drug Abuse Patient Records regulations: The Federal rules restrict any use of the information to criminally investigate or prosecute any alcohol or drug abuse patient.[facility] CenterIn the event this information is protected by the Federal Confidentiality of Alcohol and Drug Abuse Patient Records regulations: The Federal rules restrict any use of the information to criminally investigate or prosecute any alcohol or drug abuse patient.[facility] CenterIn the event this information is protected by the Federal Confidentiality of Alcohol and Drug Abuse Patient Records regulations: The Federal rules restrict any use of the information to criminally investigate or prosecute any alcohol or drug abuse patient.[facility] CenterIn the event this information is protected by the Federal Confidentiality of Alcohol and Drug Abuse Patient Records regulations: The Federal rules restrict any use of the information to criminally investigate or prosecute any alcohol or drug abuse patient.[facility] CenterIn the event this information is protected by the Federal Confidentiality of Alcohol and Drug Abuse Patient Records regulations: The Federal rules restrict any use of the information to criminally investigate or prosecute any alcohol or drug abuse patient.[facility] CenterIn the event this information is protected by the Federal Confidentiality of Alcohol and Drug Abuse Patient Records regulations: The Federal rules restrict any use of the information to criminally investigate or prosecute any alcohol or drug abuse patient.[facility] CenterIn the event this information is protected by the Federal Confidentiality of Alcohol and Drug Abuse Patient Records regulations: The Federal rules restrict any use of the information to criminally investigate or prosecute any alcohol or drug abuse patient.[facility] CenterIn the event this information is protected by the Federal Confidentiality of Alcohol and Drug Abuse Patient Records regulations: The Federal rules restrict any use of the information to criminally investigate or prosecute any alcohol or drug abuse patient.[facility] CenterIn the event this information is protected by the Federal Confidentiality of Alcohol and Drug Abuse Patient Records regulations: The Federal rules restrict any use of the information to criminally investigate or prosecute any alcohol or drug abuse patient.[facility] CenterIn the event this information is protected by the Federal Confidentiality of Alcohol and Drug Abuse Patient Records regulations: The Federal rules restrict any use of the information to criminally investigate or prosecute any alcohol or drug abuse patient.[facility] CenterIn the event this information is protected by the Federal Confidentiality of Alcohol and Drug Abuse Patient Records regulations: The Federal rules restrict any use of the information to criminally investigate or prosecute any alcohol or drug abuse patient.[facility] CenterIn the event this information is protected by the Federal Confidentiality of Alcohol and Drug Abuse Patient Records regulations: The Federal rules restrict any use of the information to criminally investigate or prosecute any alcohol or drug abuse patient.[facility] CenterIn the event this information is protected by the Federal Confidentiality of Alcohol and Drug Abuse Patient Records regulations: The Federal rules restrict any use of the information to criminally investigate or prosecute any alcohol or drug abuse patient.[facility] CenterIn the event this information is protected by the Federal Confidentiality of Alcohol and Drug Abuse Patient Records regulations: The Federal rules restrict any use of the information to criminally investigate or prosecute any alcohol or drug abuse patient.[facility] CenterIn the event this information is protected by the Federal Confidentiality of Alcohol and Drug Abuse Patient Records regulations: The Federal rules restrict any use of the information to criminally investigate or prosecute any alcohol or drug abuse patient.[facility] CenterIn the event this information is protected by the Federal Confidentiality of Alcohol and Drug Abuse Patient Records regulations: The Federal rules restrict any use of the information to criminally investigate or prosecute any alcohol or drug abuse patient.[facility] CenterIn the event this information is protected by the Federal Confidentiality of Alcohol and Drug Abuse Patient Records regulations: The Federal rules restrict any use of the information to criminally investigate or prosecute any alcohol or drug abuse patient.[facility] CenterIn the event this information is protected by the Federal Confidentiality of Alcohol and Drug Abuse Patient Records regulations: The Federal rules restrict any use of the information to criminally investigate or prosecute any alcohol or drug abuse patient.[facility] CenterIn the event this information is protected by the Federal Confidentiality of Alcohol and Drug Abuse Patient Records regulations: The Federal rules restrict any use of the information to criminally investigate or prosecute any alcohol or drug abuse patient.[facility] CenterIn the event this information is protected by the Federal Confidentiality of Alcohol and Drug Abuse Patient Records regulations: The Federal rules restrict any use of the information to criminally investigate or prosecute any alcohol or drug abuse patient.[facility] CenterIn the event this information is protected by the Federal Confidentiality of Alcohol and Drug Abuse Patient Records regulations: The Federal rules restrict any use of the information to criminally investigate or prosecute any alcohol or drug abuse patient.[facility] CenterIn the event this information is protected by the Federal Confidentiality of Alcohol and Drug Abuse Patient Records regulations: The Federal rules restrict any use of the information to criminally investigate or prosecute any alcohol or drug abuse patient.[facility] CenterIn the event this information is protected by the Federal Confidentiality of Alcohol and Drug Abuse Patient Records regulations: The Federal rules restrict any use of the information to criminally investigate or prosecute any alcohol or drug abuse patient.[facility] CenterIn the event this information is protected by the Federal Confidentiality of Alcohol and Drug Abuse Patient Records regulations: The Federal rules restrict any use of the information to criminally investigate or prosecute any alcohol or drug abuse patient.[facility] CenterIn the event this information is protected by the Federal Confidentiality of Alcohol and Drug Abuse Patient Records regulations: The Federal rules restrict any use of the information to criminally investigate or prosecute any alcohol or drug abuse patient.[facility] CenterIn the event this information is protected by the Federal Confidentiality of Alcohol and Drug Abuse Patient Records regulations: The Federal rules restrict any use of the information to criminally investigate or prosecute any alcohol or drug abuse patient.[facility] CenterIn the event this information is protected by the Federal Confidentiality of Alcohol and Drug Abuse Patient Records regulations: The Federal rules restrict any use of the information to criminally investigate or prosecute any alcohol or drug abuse patient.[facility] CenterIn the event this information is protected by the Federal Confidentiality of Alcohol and Drug Abuse Patient Records regulations: The Federal rules restrict any use of the information to criminally investigate or prosecute any alcohol or drug abuse patient.[facility] CenterIn the event this information is protected by the Federal Confidentiality of Alcohol and Drug Abuse Patient Records regulations: The Federal rules restrict any use of the information to criminally investigate or prosecute any alcohol or drug abuse patient.[facility] CenterIn the event this information is protected by the Federal Confidentiality of Alcohol and Drug Abuse Patient Records regulations: The Federal rules restrict any use of the information to criminally investigate or prosecute any alcohol or drug abuse patient.[facility] CenterIn the event this information is protected by the Federal Confidentiality of Alcohol and Drug Abuse Patient Records regulations: The Federal rules restrict any use of the information to criminally investigate or prosecute any alcohol or drug abuse patient.[facility] CenterIn the event this information is protected by the Federal Confidentiality of Alcohol and Drug Abuse Patient Records regulations: The Federal rules restrict any use of the information to criminally investigate or prosecute any alcohol or drug abuse patient.[facility] CenterIn the event this information is protected by the Federal Confidentiality of Alcohol and Drug Abuse Patient Records regulations: The Federal rules restrict any use of the information to criminally investigate or prosecute any alcohol or drug abuse patient.[facility] CenterIn the event this information is protected by the Federal Confidentiality of Alcohol and Drug Abuse Patient Records regulations: The Federal rules restrict any use of the information to criminally investigate or prosecute any alcohol or drug abuse patient.[facility] CenterIn the event this information is protected by the Federal Confidentiality of Alcohol and Drug Abuse Patient Records regulations: The Federal rules restrict any use of the information to criminally investigate or prosecute any alcohol or drug abuse patient.[facility] CenterIn the event this information is protected by the Federal Confidentiality of Alcohol and Drug Abuse Patient Records regulations: The Federal rules restrict any use of the information to criminally investigate or prosecute any alcohol or drug abuse patient.[facility] CenterIn the event this information is protected by the Federal Confidentiality of Alcohol and Drug Abuse Patient Records regulations: The Federal rules restrict any use of the information to criminally investigate or prosecute any alcohol or drug abuse patient.[facility] CenterIn the event this information is protected by the Federal Confidentiality of Alcohol and Drug Abuse Patient Records regulations: The Federal rules restrict any use of the information to criminally investigate or prosecute any alcohol or drug abuse patient.[facility] CenterIn the event this information is protected by the Federal Confidentiality of Alcohol and Drug Abuse Patient Records regulations: The Federal rules restrict any use of the information to criminally investigate or prosecute any alcohol or drug abuse patient.[facility] CenterIn the event this information is protected by the Federal Confidentiality of Alcohol and Drug Abuse Patient Records regulations: The Federal rules restrict any use of the information to criminally investigate or prosecute any alcohol or drug abuse patient.[facility] CenterIn the event this information is protected by the Federal Confidentiality of Alcohol and Drug Abuse Patient Records regulations: The Federal rules restrict any use of the information to criminally investigate or prosecute any alcohol or drug abuse patient.[facility] CenterIn the event this information is protected by the Federal Confidentiality of Alcohol and Drug Abuse Patient Records regulations: The Federal rules restrict any use of the information to criminally investigate or prosecute any alcohol or drug abuse patient.[facility] CenterIn the event this information is protected by the Federal Confidentiality of Alcohol and Drug Abuse Patient Records regulations: The Federal rules restrict any use of the information to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 Psychiatry 12/26/22 Floor Director Relationship Specialty Start Date End Date April Corral MD [address] [place] [address] PCP - General Family Medicine 10/31/20 Trinity Herrera, ASSESSMENT DIRECTOR.KITCHEN FOOD ASSEMBLER [address] [place] [address] Psychiatry 12/26/22 Team Status: Active Member Role Status Dates Michelle Podlogar MICROBIOLOGY INSTRUCTOR, MICROBIOLOGY INSTRUCTOR-C Primary Care Provider, Referri ng Provider Active Dr. Kenn Ojeda , DO Attending Provider, Other Prov ider Active Team Status: Inactive Member Role Status Dates Michelle Podlogar MICROBIOLOGY INSTRUCTOR, MICROBIOLOGY INSTRUCTOR-C Primary Care Provider Active Dr. Fernando Huerta , DO Emergency Provider Active Floor Director Relationship Specialty Start Date End Date April Corral MD [address] [place], [place] [id number] PCP - General Family Medicine 10/31/20 Trinity Herrera APRN.KITCHEN FOOD ASSEMBLER [address] [place], [place] 13948[address] Psychiatry 12/26/22 Podlogar, VEL Martinez.KITCHEN FOOD ASSEMBLER [address] [place], [place] [address]64[address] Continuous Mining Machine Lode Miner Family Medicine 04/17/24 Floor Director Relationship Specialty Start Date End Date April Corral MD [address] [place], [place] 346811 PCP - General Family Medicine 10/31/20 Trinity Herrera, ASSESSMENT DIRECTOR.KITCHEN FOOD ASSEMBLER [address] [place], [place] 10768[address] Psychiatry 12/26/22 Podlogar, VEL Martinez.KITCHEN FOOD ASSEMBLER [address] [place] [address] Continuous Mining Machine Lode Miner Family Medicine 04/17/24 Floor Director Relationship Specialty Start Date End Date April Corral MD [address] [place] [address] PCP - General Family Medicine 10/31/20 Trinity Herrera APRN.KITCHEN FOOD ASSEMBLER [address] [place], [place] [address] Psychiatry 12/26/22 Podlogar, VEL Martinez.KITCHEN FOOD ASSEMBLER [address] [place] [address] Continuous Mining Machine Lode Miner Family Medicine 04/17/24 Floor Director Relationship Specialty Start Date End Date April Corral MD [address] [place] [address] PCP - General Family Medicine 10/31/20 Trinity Herrera APRN.KITCHEN FOOD ASSEMBLER [address] [place] [address] Psychiatry 12/26/22 Podlogar, VEL Martinez.KITCHEN FOOD ASSEMBLER [address] [place] [address] Continuous Mining Machine Lode Miner Family Medicine 04/17/24 Floor Director Relationship Specialty Start Date End Date April Corral MD [address] [place] [address] PCP - General Family Medicine 10/31/20 Trinity Herrera APRN.KITCHEN FOOD ASSEMBLER [address] [place] [address] Psychiatry 12/26/22 PodlogarMichelle APRN.KITCHEN FOOD ASSEMBLER [address] [place] [address] Continuous Mining Machine Lode Miner Family Medicine 04/17/24 Amber Recio APRN.KITCHEN FOOD ASSEMBLER [address] [place], [place] [address] Continuous Mining Machine Lode Miner [facility] 08/02/24 Floor Director Relationship Specialty Start Date End Date April Corral MD [address] [place] [address] PCP - General Family Medicine 10/31/20 Trinity Herrera, ASSESSMENT DIRECTOR.KITCHEN FOOD ASSEMBLER [address] [place] [address] Psychiatry 12/26/22 Podlogar, Michelle ASSESSMENT DIRECTOR.KITCHEN FOOD ASSEMBLER [facility] [place] [address] Continuous Mining Machine Lode Miner Family Medicine 04/17/24 Amber Recio ASSESSMENT DIRECTOR.KITCHEN FOOD ASSEMBLER [address] [place] [address] Continuous Mining [facility] Floor Director Relationship Specialty Start Date End Date April Corral MD [address] [place], [place] 394811 PCP - General Family Medicine 10/31/20 Trinity Herrera, ASSESSMENT DIRECTOR.KITCHEN FOOD ASSEMBLER [address] [facility] [place] [address] Psychiatry 12/26/22 Podlogar, Michelle, ASSESSMENT DIRECTOR.KITCHEN FOOD ASSEMBLER [address] [place], [place] [address] [facility] 04/17/24 Amber Recio APRN.KITCHEN FOOD ASSEMBLER [address] [place], [place] [address] [facility] 08/02/24 Floor Director Relationship Specialty Start Date End Date April Corral MD [address] [place], [place] 175341 PCP - General Family Medicine 10/31/20 Trinity Herrera ASSESSMENT DIRECTOR.KITCHEN FOOD ASSEMBLER [address] [place] [address] Psychiatry 12/26/22 PodlogarMichelle APRN.KITCHEN FOOD ASSEMBLER [address] [place] [address] [facility] 04/17/24 Amber Recio APRN.KITCHEN FOOD ASSEMBLER [address] [place], [place] [address] [facility] 08/02/24 Floor Director Relationship Specialty Start Date End Date April Corral MD [address] [place], [place] [address]85391 PCP - General Family Medicine 10/31/20 Trinity Herrera ASSESSMENT DIRECTOR.KITCHEN FOOD ASSEMBLER [address] [place] [address] Psychiatry 12/26/22 PodlogarMichelle APRN.KITCHEN FOOD ASSEMBLER [address] [place] [address] [facility] Medicine 04/17/24 Amber Recio APRN.KITCHEN FOOD ASSEMBLER [address] [place], [place] [address]208[address] Continuous Mining Machine Lode Miner [facility] 08/02/24 Floor Director Relationship Specialty Start Date End Date April Corral MD [address] [place], [place] [id number] PCP - General Family Medicine 10/31/20 Trinity Herrera, VEL.KITCHEN FOOD ASSEMBLER [address] [place] [address] Psychiatry 12/26/22 PodMichelle baird APRN.KITCHEN FOOD ASSEMBLER [address] [place], [place] 5350[address] [facility] 04/17/24 Goals (unrecognized section and content) Goals may be documented in a n alternate sectionGoals may be documented in an alternate sectionGoals may be documented in an alternate sectionGoals may be documented in an alternate sectionGoals may be documented in an alternate sectionGoals may be documented in an alternate sectionGoals may be documented in an alternate sectionGoals may be documented in an alternate sectionGoals may be documented in an alternate sectionGoals may be documented in an alternate sectionGoals may be documented in an alternate sectionGoals may be documented in an alternate sectionGoals may be documented in an alternate sectionGoals may be documented in an alternate section No data available for this sectionGoals may be documented in an alternate section No data available for this section FOR RECORDS PERTAINING TO PATIENTS WHO ARE [...] BE BASED ON THE PRIMARY CLINICAL RECORDS. [facility]. provides no warranty or guarantee of the accuracy or completeness of information in this document.
[2024-10-14 06:23] LABS: Internal QC Validated? YES +Cl - CLEAR BKGD; Pregnancy, Urine Negative Negative
[2024-10-14 06:46] LABS: Hematocrit 35.7 % (37-47); Hemoglobin 11.9 g/dL (12.0-15.0); Mean Corp Hgb Conc 33.3 g/dL (32-36); Mean Corpuscular Hgb 30.3 pg (27.0-32.0); Mean Corpuscular Volume 90.8 fL (81-99); Mean Platelet Vol. 9.2 fl (6.2-12.0); Platelet Count 377 K/mm3 (150-450); RBC Distribution Width SD 43.6 fl (35.1-43.9); Red Blood Count 3.93 M/mm3 (4.2-5.4); White Blood Count 5.8 K/mm3 (4.4-11.0)
[2024-10-14] MEDS: Lactated Ringers 1,000 ML 40 ML IV (06:49)
[2024-10-14] MEDS: metroNIDAZOLE 500 MG/100 ML BAG 100 MG IV (06:51)
[2024-10-14] MEDS: Celecoxib 200 MG Capsule 400 MG PO (07:01)
[2024-10-14] MEDS: Gabapentin 600 MG Tablet PO (07:01)
[2024-10-14] MEDS: Phenazopyridine 95 MG Tablet 190 MG PO (07:01)
[2024-10-14] MEDS: Scopolamine 1mg/72hr Patch 1 PATCH TD (07:02)
[2024-10-14] MEDS: Acetaminophen 500 MG Tablet 1000 MG PO (07:02)
[2024-10-14] MEDS: Enoxaparin 40 MG/0.4 ML Syringe SC (07:03)
[2024-10-14 07:14] LABS: Anion Gap 13 (5-15); BUN 11 mg/dL (4-19); BUN/Creat Ratio 13.2 RATIO (10-20); Calcium,Total 8.9 mg/dL (7.6-11.0); Carbon Dioxide 21.2 mmol/L (21.0-32.0); Chloride 102 mmol/L (98-108); Creatinine, Serum 0.86 mg/dL (0.70-1.20); EST Glomerular Filtration Rate 88 (>60); Estimated Creatinine Clearance 87.94 ml/min (50-250); Glucose 88 mg/dL (70-99); Magnesium 1.9 mg/dL (1.5-2.2); Potassium 3.9 mmol/L (3.3-5.1); Sodium Level 136 mmol/L (133-145)
[2024-10-14 07:17] LABS: Bedside Glucose 100 mg/dL (74-106)
--- NOTE | 2024-10-14 07:20 | PRE.ANES_ITS ---
ASA Classification* ASA Classification ASA Classification: 2 Assessment & Plan Anesthesia* Anesthesia Assessment Anesthesia Assessment: Discussed sedation and/or anesthesia options, risks, benefits, and alternatives with patient/parents/legal guardian/POA. Questions invited. The patient/parents/legal guardian/POA seems to understand and agrees to proceed with anesthesia plan. Reviewed the physical assessment, medical history, allergy history and patient home medications list prior to surgery/procedure/anesthetic and documented any changes. Performed airway and anesthesia risk assessments. Anesthesia Type Anesthesia Type: General History Source History Obtained from:: Patient and Chart Anesthesia Focused Assessment* Temperature: 97.6 F Pulse Rate: 64 Blood Pressure: 125/90 Respiratory Rate: 18 Pulse Ox: 100 Oxygen Delivery Method: Room Air Airway Assessment Mouth opens: >3 cm Mallampati Score: III Teeth Condition: Chipped/Broken Neck Range of motion (ROM): Full ROM Comment: Chip on left front tooth Focused Labs Anesthesia Preop lab: CBC WBC 5.8 K/mm3 (4.4-11.0) 10/14/24 06:10/14/24 RBC 3.93 M/mm3 (4.2-5.4) L 10/14/24 06:10/14/24 Hgb 11.9 g/dL (12.0-15.0) L 10/14/24 06: 5 Hct 35.7 % (37-47) L 10/14/24 06:10/14/24 Plt Count 377 K/mm3 (150-450) 10/14/24 06:10/14/24 CHEMISTRY Potassium 3.9 mmol/L (3.3-5.1) 10/14/24 06:10/14/24 Sodium 136 mmol/L (133-145) 10/14/24 06:10/14/24 Magnesium 1.9 mg/dL (1.5-2.2) 10/14/24 06:10/14/24 BUN 11 mg/dL (4-19) 10/14/24 06:10/14/24 Creatinine 0.86 mg/dL (0.70-1.20) 10/14/24 06:10/14/24 Glucose 88 mg/dL (70-99) 10/14/24 06:10/14/24 POC Glucose 100 mg/dL (74-106) 10/14/24 06:39 10/14/24 COAG PT 12.5 SECONDS (11.7-14.9) 01/24/22 21:20 Urine Test Negative Negative 10/14/24 06:01 10/14/24 Pre-Assessment Diagnosis/Proposed Procedure Planned Operative Procedure(s): TOTAL LAP HYSTERECTOMY BSO CYSTO Anesthesia History Anesthesia History - medical staff services manager: Anesthesia History - medical staff services manager Hx Hospitalization No 10/01/24 08:24 Any Problems With Anesthesia No 10/01/24 08:24 Cholinesterase deficiency No 10/01/24 08:24 You/Your Family Experience No 10/01/24 08:24 fever (hyperthermia) with Relationship Recent Exposure to Contagious No 10/14/24 06:43 Disease Does patient have nerve No 10/01/24 08:24 stimulator Patient instructed to have device shut off --Does patient have Pacemaker No 10/14/24 06:43 or ICD? When Was Last Pacemaker Check QUESTION #4 FULL TEXT: You/Your Family Experience fever (hyperthermia) with Anesthesia Last Oral Intake Last Oral intake: Last Oral Intake NPO since 00:00 10/14/24 06:43 Meds taken in AM with sips of Yes 10/14/24 06:43 water? Meds patient instructed to take am of surgery PONV PONV - medical staff services manager: PONV - medical staff services manager Female Yes 10/01/24 08:24 HX of Motion Sickness No 10/01/24 08:24 HX of N/V After Surgery No 10/01/24 08:24 Non-Smoker No 10/01/24 08:24 Duration of Surgery greater Yes 10/01/24 08:24 than 60 minutes Number of Risk Factors 2 10/01/24 08:24 PONV Score Moderate Risk 10/01/24 08:24 Height & Weight Height & Weight: Anesthesia: Height & Weight Height 5 ft 2.99 in 10/14/24 06:43 Weight: 85 kg 10/14/24 06:43 Body Mass Index (BMI) 33.2 10/14/24 06:43 Respiratory Assessment Respiratory Assessment - medical staff services manager: Respiratory Tract Infection Hx - medical staff services manager Hx Respiratory Tract Infection No 10/01/24 08:24 STOP Sleep Apnea STOP Sleep Apnea - medical staff services manager: STOP Sleep Apnea - medical staff services manager Hx Hypertension Yes: CONTROLLED WITH MED 10/01/24 08:24 Hx Sleep Apnea No 10/01/24 08:24 CPAP BIPAP Do you snore loudly (louder No 10/01/24 08:24 than talking or can be heard Do you often feel tired/ No 10/01/24 08:24 fatigued/ sleepy during daytime? Has anyone observed you stop No 10/01/24 08:24 breathing during sleep? STOP Results Negative 10/01/24 08:24 QUESTION #5 FULL TEXT : Do you snore loudly (louder than talking or can be heard through closed doors)? Tobacco Use History Tobacco Use History - medical staff services manager: Tobacco Use History - medical staff services manager Tobacco Use Smoking Status Current every day smoker 10/01/24 08:24 Hx Tobacco Use Yes 10/01/24 08:24 Years Smoking Packs Smoked per Day Smoking Cessation Date was within the last 15 years Hx Smoking Cessation Date Hx Smoking Cessation No 10/01/24 08:24 Counseling Hematologic Medial History Hematologic Hx - medical staff services manager: Hematologic Medical Hx - driver trainee Hx of Blood Transfusion Yes 10/01/24 08:24 Hx of Transfusion in last 3 No 10/01/24 08:24 Months Date of Last Transfusion (if within last 3 months) Ever experience any problems Yes 10/01/24 08:24 with transfusion(s)? Specify any problems ITCHING 10/01/24 08:24 Hx of Preganancy in last 3 No 10/01/24 08:24 Months Nurse Filling Out Transfusion DSCHRIBER 10/01/24 08:24 & Questions: Date: 10/01/24 10/01/24 08:24 Time: 08:26 10/01/24 08:24 Patient unable to answer at this time (ie. confused, unrespo /Reproduction History /Reproductive History - medical staff services manager: /Reproductive Hx- medical staff services manager Hx Now No 10/01/24 08:24 Gestational Age (in weeks): EDC: Hx Hx Para Hx Section SAB No 10/01/24 08:24 Active Medications Active Medications: Current Medications Generic Name Dose Route Start Last Admin Trade Name Freq PRN Reason Stop Dose Admin Acetaminophen 1,000 mg 10/14/24 07:30 10/14/24 07:02 Acetaminophen 500 Mg Tablet PO 10/14/24 07:31 1,000 mg PREOP ONE Administration Celecoxib 400 mg 10/14/24 07:30 10/14/24 07:01 Celecoxib 200 Mg Capsule PO 10/14/24 07:31 400 mg PREOP ONE Administration Dexamethasone Sodium Phosphate 8 mg 10/14/24 07:30 Dexamethasone 4 Mg/Ml Vial IV 10/14/24 07:31 INTRAOP ONE Enoxaparin Sodium 40 mg 10/14/24 07:30 10/14/24 07:03 Enoxaparin 40 Mg/0.4 Ml Syringe SC 10/14/24 07:31 40 mg PREOP ONE Administration Gabapentin 600 mg 10/14/24 07:30 10/14/24 07:01 Gabapentin 600 Mg Tablet PO 10/14/24 07:31 600 mg PREOP ONE Administration Lactated Ringer's 1,000 mls @ 40 mls/hr 10/14/24 07:30 10/14/24 06:49 IV 40 mls/hr .Q25H DEL Administration Cefazolin Sodium 2 gm/ Sodium 110 mls @ 150 mls/hr 10/14/24 07:30 Chloride IV 10/14/24 08:13 INTRAOP ONE Metronidazole 500 mg in 100 mls @ 100 mls/hr 10/14/24 07:30 10/14/24 06:51 Flagyl IV 10/14/24 08:29 100 mls/hr X1 ONE Administration Magnesium Sulfate 2 gm/ 104 mls @ 208 mls/hr 10/14/24 07:20 Dextrose IV 10/14/24 07:49 INTRAOP ONE Insulin Human Lispro 0 unit 10/14/24 07:30 Insulin Lispro 100 Unit/Ml Insuln.Pen SC Q4H PRN PRN BG >/= 180, SEE PROTOCOL Protocol Ondansetron HCl 4 mg 10/14/24 07:30 Ondansetron 4 Mg/2 Ml Vial IV 10/14/24 07:31 INTRAOP ONE Phenazopyridine HCl 190 mg 10/14/24 07:30 10/14/24 07:01 Phenazopyridine 95 Mg Tablet PO 10/14/24 07:31 190 mg PREOP ONE Administration Scopolamine HBr 1 patch 10/14/24 07:30 10/14/24 07:02 Scopolamine 1mg/72hr Patch TD 10/14/24 07:31 1 patch PREOP ONE Administration [facility] Medical History Alcohol use Gastric reflux Low iron Anemia Asthma Hypertension Marijuana use History of blood transfusion Smoker Crohn's disease Cannabis hyperemesis syndrome concurrent with and due to cannabis abuse Bipolar 1 disorder Depression Anxiety Home Medications ?Medication ?Instructions ?Recorded ?Last Taken ?Type escitalopram oxalate 20 mg tablet 20 mg PO DAILY 08/1510/13/24 History (Lexapro) hydroxyzine pamoate 25 mg capsule 25 mg PO QHS 2 10/13/24 History lamotrigine 100 mg tablet 200 mg PO DAILY 08/15/2109/03 History (Lamictal) albuterol sulfate 90 mcg/actuation 1 inh inhalation Q6 H PRN ASTHMA 10/24/22 Unknown History aerosol inhaler (Ventolin HFA) lisinopril 30 mg tablet 30 mg PO DAILY 10/24/2210/03 History ondansetron 4 mg disintegrating 4 mg PO Q6H PRN nausea and 11/10/23 Unknown Rx tablet vomiting #60 tabs dicyclomine 20 mg tablet 20 mg PO TID PRN abdominal p ain 01/09/24 Unknown Rx #90 tabs prochlorperazine maleate 10 mg 10 mg PO TID PRN nausea and 06/15/24 Unknown Rx tablet (Compazine) vomiting #90 tabs pantoprazole 40 mg tablet,delayed 40 mg PO QAM #60 TAB LETS 07/15/24 10/13/24 Rx release ustekinumab 90 mg/mL subcutaneous 90 mg subcut Q8W #1 mL 09/30/24 10/06/24 Rx syringe (Stelara) Allergy/AdvReac Type Severity Reaction Status Date / Time amoxicillin Allergy Rash Verified 10/14/24 06:41 tramadol Allergy Rash Verified 10/14/24 06:41 Family History Mother Mental disorder Surgical History S/P ERCP S/P laparoscopic cholecystectomy History of esophagogastroduodenoscopy (EGD) Social History household members: children Smoking Status: Current every day smoker tobacco type: cigarettes substance use type: does not use Review of Systems (Anesthesia) ROS Narrative System reviewed and no additional complaints, except as documented.
[2024-10-14] MEDS: Magnesium 2 GM for ERAS IV (07:21)
[2024-10-14] MEDS: Cefazolin 2 GM in 0.9% Normal Saline (100mL Bag) 100 ML IV (07:30)
--- NOTE | 2024-10-14 07:30 | UT_PTH ---
PATIENT: DIANE WELLER [place] [facility] [place][id number] AGE/SX: 39/F ROOM: RE10/14/[address]: Dr. Abena Chi, MDDOB: 1985 BED: DIS: 10/14/2024 SPEC #: [id number] RECD: 10/14/24 13:13 STATUS: LORENA LUIS M #: [id number] EMANI: 10/14/24 07:[address]: Abena Chi DEPT: SURGICAL PATHOLOGY RECD BY: Klever Menezes ENTERED: 10/14/24 13:20 SP TYPE: UTERUS OTHR DR: Dr. Vick Corral MD Tissues: A - Uterus, NOS Procedures: Surgery Specimen Level V HEADER OPERATION: ERAS, hysterectomy, TLH, bilateral salpingectomy, cystoscopy PRE-OP DIAGNOSIS: Abnormal uterine bleeding, fibroid uterus, adenomyosis TISSUE SUBMITTED: A- Uterus, cervix, bilateral fallopian tubes MICROSCOPIC DIAGNOSIS A. Uterus, uterine cervix, and bilateral fallopian tubes, hysterectomy with bilateral salpingectomies: * Squamous metaplasia and slight chronic cystic endocervicitis of the uterine cervix * Proliferative endometrium with extensive underlying adenomyosis of the myometrium * Intramural leiomyomata of the myometrium * Full thickness segments of two benign fallopian tubes MICROSCOPIC DESCRIPTION Slides are reviewed. GROSS DESCRIPTION A. Received in formalin in a container labeled with the patient's name, date of , and uterus, cervix, bilateral fallopian tubes is a hysterectomy specimen with attached cervix and bilateral detached fimbriated fallopian tubes. The uterus is 75.1 g and 8.0 cm from fundus to ectocervix, 4.2 cm from cornu to cornu, and 4.5 cm from anterior to posterior. The serosa is jameson-pink, smooth, and glistening. The white pink ectocervix is a 2.7 x 2.2 cm with a 0.9 cm slit like os. The specimen is bivalved to reveal a 3.0 cm in length by 0.7 cm in diameter jameson-pink endocervical canal. The Y-shaped endometrial cavity is 3.3 cm in length by 2.8 cm in width. There is red-jameson, velvety endometrium ranging from 0.1 to 0.2 cm in greatest dimension. The jameson-pink and focally hemorrhagic myometrium is nodular and markedly trabecular measuring up to 2.0 cm in greatest thickness. 2 white, whorled, and circumscribed myometrial nodules are identified within the anterior and posterior myometrium ranging from 1.1 x 0.8 x 0.6 cm to 2.5 x 2.5 x 2.2 cm. No hemorrhage or necrosis is identified. The bilateral fimbriated fallopian tubes are unoriented and measure 5 cm in length by 0.8 cm in diameter, and 5.5 cm in length by 1.0 cm in diameter. Each appear consistent with prior ligation. The longer fallopian tube is notable for an embedded 1.3 x 0.4 cm metal clip and a previously disrupted 1.5 x 0.9 x 0.3 cm pedunculated paratubal cyst with a 1.0 cm in length stalk. Each display jameson-pink, smooth, and glistening serosa with unremarkable fimbriated ends. Sectioning of each reveal a pinpoint lumen. Foundry Process Engineer sections:A1. Anterior cervix with anterior serosal shaveA2. Posterior cervix with posterior serosal shaveA3. Anterior endometrium and myometrium with nodular myometrium (superficial x 2)A4. Posterior endometrium and myometrium (superficial x 2)A5. Sampled myometrial nodulesA6. Longer fallopian tube with paratubal cystA7. [place] fallopian tube [facility] 10-14-2024 CPT:45151
[2024-10-14] MEDS: dexAMETHasone 4 MG/ML Vial 8 MG IV (07:41)
[2024-10-14] MEDS: Bupivacaine Mpf 0.5% 30 ML VIAL (08:00)
[2024-10-14] MEDS: Ondansetron 4 MG/2 ML Vial IV (09:11)
--- NOTE | 2024-10-14 09:16 | OP.PCM_ITS ---
Operative Report (Standard) Operative Information Date of Procedure: 10/14/24 Pre-Operative Diagnosis: AUB, Adenomyosis, Fibroid uterus Post-Operative Diagnosis: same Surgery/Procedure Performed: TLH, Bilateral Salpingectomy, Cysto student development dean: Yes Presser And Shaper Knitted Goods: Sadia adkins PGY3 Tasks completed by seed analysis laboratory assistant: Opening & closing, Dissecting tissue, Removing tissue and Retracting Type of Anesthesia: General and Local RN Documented Start/Stop Times: Operation Date: 10/14/24 07:30 Case Time Into Pre-Op 10/14/24 05:53 Out of Pre-Op 10/14/24 07:25 Anesthesia Start 10/14/24 07:30 Into Room 10/14/24 07:30 Procedure Start 10/14/24 07:52 Procedure Start Time: 07:52 Procedure Stop Time: 09:20 Select all DRAINS/GRAFTS/IMPLANTS that apply: None Special Medications: Hemoblast Estimated Blood Loss: 40cc Fluids Replaced: 800 Specimen collected: Yes Description of specimen(s) removed: uterus, cervix, bilateral fallopian tubes Description of surgery: Patient take to OR and prepped and draped in usual sterile fashion in dorsal lithotomy position with her arms tucked in a neurologically safe and neutral position. The uterus sounded to 8 cm. The painting technician uterine manipulator was sutured into place at 3/9:00 position and ayon were placed. Attention was turned to the abdomen. All port sites were infiltrated with .5% marcaine before the incisions were made. The anterior abdominal wall was tented up with towel clamps and using a direct entry approach a 5 mm intrau mbilical port was placed. Intraperitoneal placement was confirmed with the laparoscope and the pneumoperitoneum was created. The patient was placed in Trendelenburg and 5 mm right and left lower quadrant ports were placed under direct visualization. Air seal rapid insufflator was used. The bowel was swept away. Ovaries appeared normal. The mesosalpinx starting at fimbriated end were grasped, clamped, sealed and transected with the Ligasure. Previous tubal with filshie clips noted- only one filshie clip noted on the right tube. The round ligaments were divided. The anterior peritoneum was dissected down to create the bladder flap with blunt dissection and the LigaSure. The uterine arteries were isolated, clamped, sealed and cut. There was minimal back bleeding from the uterus. Straight bites on uterine arteries performed to drop them off the cuff. The manipulator cup was used as guide to create colpotomy using monopolar tip of ligasure. once specimen was removed attention was turned to vaginal portion. The specimen was handed off. Posterior peritoneum was run with 2-0 vicryl. The cuff was closed with interrupted 0-vicryl figure of 8 sutures. Cystoscopy was performed bilateral ureters were visualized with good efflux. bladder was intact. ayon replaced and sponge stick placed in vagina. The pneumoperitoneum was recreated and the cuff and pedicles were hemostatic. Hemoblast was placed over cuff and pedicles. The skin incisions were closed with skin glue and 3-0 monocryl in the LLQ port site. The vaginal sweep was completed by me. Grafts/Implants Used: none Surgical Findings: Fibroid uterus. One filshie clip noted on right tube only. paratubal cysts on right tube. Ovaries appear normal. Complications Complications: No Admit VTE Documentation VTE Present on Admission: Yes VTE Mechan Device Prophylaxis: SCD's VTE Pharm Prophylaxis ordered?: Yes
--- NOTE | 2024-10-14 09:21 | DCINST_ITS ---
Discharge Instructions Diet Discharge Diet: No restrictions DC O2, CPAP, BIPAP needs Home O2 Discharge instructions: No Dressing / Incision Discharge Activity: May Not Drive (while taking narcotics. may drive when pain controlled. ) and May Shower May shower in (days): 1 May resume sexual activity in: 6-8 weeks Weight Bearing Status: Full weight bearing Lifting Restrictions: 20 Additional Activity Instructions:: NOTHING IN THE VAGINA x 6-8 weeks. Dressing / Incision Call your doctor if your incision/area has: Continuous Slow Oozing, Sudden Increased Bleeding, Increased Pain/ Swelling, Increased Redness, Foul Smelling Discharge and Swelling at the incision site Call your doctor if you observe: Fever of 101 or Higher, Inability to have a bowel movement, Using more than 1 pad per hour and Uncontrolled pain Change Dressing in: leave in place till F/U (you have skin glue over incision sites- do not pick off) Cleanse incision/area with: Soap & Water, Keep Dressing Clean & Dry and - (you may let soap and water run over incision sites and dab dry. ) Follow Up Care Please Follow Up With: Abena Chi MD When: 1-2 weeks as scheduled for post op visit and then at 6 weeks post op Test Results: Test results from this visit will be discussed in further detail at your follow- up appointment, if applicable. Discharge Plan Admission Attending Provider: Abena Chi Primary Care Provider: Vick Corral Instructions Print Language: Surinamese Discharge Orders/Prescriptions Prescriptions: New oxycodone 5 mg tablet 5 mg PO Q8H PRN (Reason: pain) 3 Days Qty: 7 0RF Continued hydroxyzine pamoate 25 mg capsule 25 mg PO QHS escitalopram oxalate [Lexapro] 20 mg tablet 20 mg PO DAILY lamotrigine [Lamictal] 100 mg tablet 200 mg PO DAILY lisinopril 30 mg Tablet 30 mg PO DAILY albuterol sulfate [Ventolin HFA] 90 mcg/actuation Hfa Aerosol Inhaler 1 inh INHALATION Q6H PRN (Reason: ASTHMA) ondansetron 4 mg tablet,disintegrating 4 mg PO Q6H PRN (Reason: nausea and vomiting) Qty: 60 3RF dicyclomine 20 mg tablet 20 mg PO TID PRN (Reason: abdominal pain) Qty: 90 6RF prochlorperazine maleate [Compazine] 10 mg tablet 10 mg PO TID PRN (Reason: nausea and vomiting) Qty: 90 5RF pantoprazole 40 mg tablet,delayed release (DR/EC) 40 mg PO QAM Qty: 60 1RF Stelara 90 mg/mL syringe 90 mg subcut Q8W Qty: 1 5RF Rx Instructions: Crohn's Disposition Disposition (needs filled in before D/C Order can be placed): Home, Self Care
--- NOTE | 2024-10-14 09:40 | PCM.POST.ANE ---
Anesthesia: Postop Eval I Current Vital Signs Temperature: 97.3 F Pulse Rate: 79 Blood Pressure: 144/101 Respiratory Rate: 16 Pulse Ox: 100 Oxygen Delivery Method: Room Air (NC then applied by MARBLE CUTTER OPERATOR) Assessment Airway patent: Yes Spontaneous unlabored respirations: Yes Mental status: Awake and Calm nausea: Yes Vomiting: No Anesthesia Complication: No Fluid Hydration Crystalloid volume administer (ml): 800 Total IV fluid infused: 800 Progress Note Anesthesia document: Postop Eval 1 completed: Yes
[2024-10-14] MEDS: Lactated Ringers 1,000 ML 100 ML IV (09:57)
[2024-10-14] MEDS: HYDROcodone Bitartrate/Apap 5/325 Tablet PO (10:40)
--- NOTE | 2024-10-14 18:56 | POSTOPAN2_ITS ---
Anesthesia Postop Eval I Sum Postop Eval Completion status Anesthesia document: Postop Eval 1 completed: Yes Anesthesia Postop Eval I Summary Anesthesia Postop Eval I Summary: Anesthesia Postop Eval I: Assessment Summary Airway patent Yes 10/14/24 09:41 DRYING AND WINDING [email or web address] Spontaneous unlabored Yes 10/14/24 09:41 DRYING AND WINDING SUPERVISOR.[email or web address] respirations Mental status Awake,Calm 10/14/24 09:41 DRYING AND WINDING SUPERVISOR.SHOF nausea Yes 10/14/24 09:41 DRYING AND WINDING SUPERVISOR.[email or web address] Vomiting No 10/14/24 09:41 DRYING AND WINDING SUPERVISOR.SHOF Anesthesia Postop Eval I: Fluid Summary Crystalloid volume administer 800 10/14/24 09:41 DRYING AND WINDING SUPERVISOR.SHOF (ml) Colloids volume administered ( ml) Blood Product volume administered (ml) Total IV fluid infused 800 10/14/24 09:41 DRYING AND WINDING [email or web address].SHOF Anesthesia Postop Eval I: Summary Notes Anesthesia Complication No 10/14/24 09:41 DRYING AND WINDING [email or web address].SHOF Anesthesia Complication Comment: Post-operative progress note Anesthesia: Postop Eval II Evaluation Mental status: Awake and Calm Pain Level: 2 nausea: No Vomiting: No Complications Anesthesia Complication: No
--- NOTE | 2024-10-14 18:56 | PCM.POSTANE2 ---
Anesthesia Postop Eval I Sum Postop Eval Completion status Anesthesia document: Postop Eval 1 completed: Yes Anesthesia Postop Eval I Summary Anesthesia Postop Eval I Summary: Anesthesia Postop Eval I: Assessment Summary Airway patent Yes 10/14/24 09:41 [email or web address] Spontaneous unlabored Yes 10/14/24 09:41 BASE [email or web address] respirations Mental status Awake,Calm 10/14/24 09:41 BASE [email or web address] nausea Yes 10/14/24 09:41 BASE [email or web address] Vomiting No 10/14/24 09:41 BASE [email or web address] Anesthesia Postop Eval I: Fluid Summary Crystalloid volume administer 800 10/14/24 09:41 BASE [email or web address] (ml) Colloids volume administered ( ml) Blood Product volume administered (ml) Total IV fluid infused 800 10/14/24 09:41 BASE [email or web address] Anesthesia Postop Eval I: Summary Notes Anesthesia Complication No 10/14/24 09:41 BASE [email or web address] Anesthesia Complication Comment: Post-operative progress note Anesthesia: Postop Eval II Evaluation Mental status: Awake and Calm Pain Level: 2 nausea: No Vomiting: No Complications Anesthesia Complication: No
== END 2024-10-14 12:18 | disposition home or self-care (01) ==
LOC: SDC 05:09 → AC 05:11
PROVIDERS: Anesthesiology; PCP Family Medicine; Referring Provider Obstetrics & Gynecology; Visit Provider Obstetrics & Gynecology
PROC: 0UT94ZZ Resection of Uterus, Percutaneous Endoscopic Approach (ICD-10-PCS; CPT 58571; principal; 2024-10-14 07:10)
DX: D25.1 Intramural leiomyoma of uterus (principal); F31.9 Bipolar disorder, unspecified; N72 Inflammatory disease of cervix uteri; N80.03 Adenomyosis of the uterus; J45.909 Unspecified asthma, uncomplicated; N93.9 Abnormal uterine and vaginal bleeding, unspecified; N83.8 Other noninflammatory disorders of ovary, fallopian tube and broad ligament; F41.9 Anxiety disorder, unspecified; F17.210 Nicotine dependence, cigarettes, uncomplicated; Z79.899 Other long term (current) drug therapy
CPT/HCPCS: 58571; 00840; 80048; 81025; 82962; 83735; 85027; 86850; 86900; 86901; 88307; A4216; J2405

== ENCOUNTER 2024-12-01 19:11 | Emergency (ER) | payer MEDICAID, SELFPAY ==
[2024-12-01 19:12] VITALS: BP 132/97; PULSE 101; RESP 16; TEMP 36.7; O2SAT 98; BMI 33.0
--- NOTE | 2024-12-01 19:38 | EX.ED.DYSGE1 ---
HPI History of Present Illness Chief Complaint: Abd Pain [facility] Medical History (Updated 12/01/24 @ 22:[address] Laurent Perez, DO) Alcohol use Gastric reflux Low iron Anemia Asthma Hypertension Marijuana use History of blood transfusion Smoker Crohn's disease Cannabis hyperemesis syndrome concurrent with and due to cannabis abuse Bipolar 1 disorder Depression Anxiety Home Medications Medication Instructions Recorded Last Taken Type escitalopram oxalate 20 mg tablet 20 mg PO DAILY 08/15/21 10/13/24 History (Lexapro) hydroxyzine pamoate 25 mg capsule 25 mg PO QHS 08/15/21 10/13/24 History lamotrigine 100 mg tablet 200 mg PO DAILY 08/15/21 10/13/24 History (Lamictal) albuterol sulfate 90 mcg/actuation 1 inh inhalation Q6H PRN ASTHMA 10/24/22 Unknown History aerosol inhaler (Ventolin HFA) lisinopril 30 mg tablet 30 mg PO DAILY 10/24/22 10/14/24 History ondansetron 4 mg disintegrating 4 mg PO Q6H PRN nausea and 11/10/23 Unknown Rx tablet vomiting #60 tabs dicyclomine 20 mg tablet 20 mg PO TID PRN abdominal pain 01/09/24 Unknown Rx #90 tabs prochlorperazine maleate 10 mg 10 mg PO TID PRN nausea and 06/15/24 Unknown Rx tablet (Compazine) vomiting #90 tabs oxycodone 5 mg tablet 5 mg PO Q8H PRN pain 3 days #7 tabs 10/14/24 Unknown Rx pantoprazole 40 mg tablet,delayed 40 mg PO QAM #60 TABLETS 10/25/24 Unknown Rx release ustekinumab 90 mg/mL subcutaneous 90 mg subcut Q8W #1 mL 11/17/24 Unknown Rx syringe (Stelara) ondansetron 4 mg disintegrating 4 mg PO Q8H PRN PRN Nausea #10 tabs 12/01/24 Unknown Rx tablet prednisone 50 mg tablet 50 mg PO DAILY 5 days #5 tabs 12/01/24 Unknown Rx Allergy/AdvReac Type Severity Reaction Status Date / Time amoxicillin Allergy Rash Verified 12/01/24 19:13 tramadol Allergy Rash Verified 12/01/24 19:13 Family History Mother Mental disorder Surgical History (Updated 12/01/24 @ 19:33 by Armando Woods) Hx of hysterectomy S/P ERCP S/P laparoscopic cholecystectomy History of esophagogastroduodenoscopy (EGD) Social History household members: children Smoking Status: Current every day smoker tobacco type: cigarettes substance use type: does not use EXAM Physical Exam Const Vital Signs: 12/01/24 19:12 12/01/24 21:10 12/01/24 22:13 Temperature 98.1 F 98.1 F Temperature Source Temporal Pulse Rate 101 H 62 71 Respiratory Rate 16 16 16 Blood Pressure 132/97 H 154/101 H 143/102 H Blood Pressure Mean 108 118 115 Pulse Ox 98 100 100 Oxygen Delivery Method Room Air Room Air MDM [facility] MDM Narrative Medical decision making narrative: HISTORY OF PRESENT ILLNESS: Chief complaint: Abdominal pain 39-year-old female presents with abdominal pain concern for Crohn's flare. Note she is "behind getting her shots secondary to insurance issues". Past medical history significant for Crohn's disease, cannabis hyperemesis syndrome, bipolar disorder. Notes last night she developed severe abdominal pain that is diffuse. Notes for episodes of nonbloody nonbilious vomitus. Notes diarrhea but no blood in her stool. Denies urinary complaints. Denies vaginal bleeding or discharge. No she is not sexually active and does not think she is . Notes prior cholecystectomy. REVIEW OF SYSTEMS: Pertinent positives: Abdominal pain Pertinent negatives: As per HPI PHYSICAL EXAM: Nursing triage notes reviewed, Vital signs reviewed Constitutional: please see mdm HENT: MMM Eyes: Pupils equal round and reactive to light, Extraocular muscles intact Neck: No stridor, no JVD, full neck ROM Lungs: Clear to auscultation, No wheezing or rales. No increased work of breathing, no conversational dyspnea, no accessory muscle use, no nasal flaring. No respiratory distress noted Heart: Regular rate and rhythm, No murmurs, No rubs and No gallops, 2+ distal pulses (radial, femoral, posterior tibial) in all extremities Abdomen: Soft, diffuse tenderness, no rigidity, rebound or guarding, no obvious peritoneal signs, no palpable pulsatile abdominal masses, no auscultated abdominal bruit : No CVAT Extremities: No edema Neuro: No new focal neurological deficits, cranial nerves II through XII intact, 5/5 strength in all present extremities. Intact sensation to light touch in all present extremities, 2+ reflexes bilateral patella tendons. Skin: No rash or lesions noted MEDICAL DECISION MAKING: Chief Complaint: please see HPI External records reviewed: Reviewed prior CT scan abdomen pelvis. CT scan 2023 shows no focal acute inflammatory process Factors affecting care: as per [facility] Social determinants of health: History of substance abuse, bipolar disorder History obtained from others: none Consults: none [facility] Narrative: The patient was initially hemodynamically stable, afebrile and nontoxic-appearing. Abdominal exam overall benign with diffuse tenderness but no obvious peritoneal signs. I considered the following differential diagnosis: AAA, small bowel obstruction, abdominal perforation, appendicitis, pancreatitis, hepatobiliary pathology (acute cholecystitis), mesenteric ischemia, pathology (ie nephrolithiasis, pyelonephritis). I obtained a broad lab and imaging workup to further determine if the patient was suffering from a life-threatening etiology. Initially treated the patient with IV fluids, IV Toradol and IV steroids ALL IMAGES (IF OBTAINED) HAVE BEEN PERSONALLY REVIEWED AND INTERPRETED BY MYSELF. CT scan of the abdomen pelvis showed no evidence of acute surgical pathology. Noted stable adrenal mass. Incidental findings communicated with the patient. CBC with no leukocytosis, noted mild anemia (baseline) but no thrombocytopenia CMP without evidence of acute kidney injury, significant electrolyte abnormality, anion gap to suggest end organ hypo-perfusion, no evidence of metabolic acidosis with a normal bicarbonate, no evidence of hepatobiliary obstructive pathology. Lipase is wnl indicating no pancreatic inflammation. Urine test negative Urinalysis shows no evidence of urinary inflammation suggestive of UTI On reevaluation patient's abdominal pain may benign. Heart rate improved from 101-71. The synthesis of the patient's history, present exam, labs and imaging suggest a Crohn's flare. Will give a short course of steroids and prompt GI follow-up. Strict return precautions will be discussed. The patient and/or family, caregivers express understanding. The patient and/or family, caregivers agrees with the plan. Shared decision making: I will have a discussion with the patient and or visitors regarding risk/benefits of further testing or admission. They will be made aware of of the risk/benefits inherent in this decision they will be given the opportunity to voice understanding. Total critical care time today provided was at least 0 CT scan abdomen pelvis showed no evidence of obvious surgical pathology minutes. This excludes separately billable procedures. Critical care time (if documented) is secondary to the patient having high probability of clinically significant/life threatening deterioration in the patient's condition which required my urgent intervention. Impression: 1. Acute on chronic abdominal pain 2. Crohn's disease 3. History of hypertension Dispo: Discharge home This note was generated with [employer] dictation software. It may contain incorrect words, spelling, and punctuation that were not noted in review of the chart prior to signing. Lab Data Labs: Laboratory Results - last 24 hr 12/01/24 20:00 WBC 7.1 RBC 3.90 L Hgb 11.8 L Hct 35.0 L MCV 89.7 MCH 30.3 MCHC 33.7 RDW Std Deviation 44.9 H RDW Coeff of Kim 13.6 Plt Count 462 H MPV 9.2 Immature Gran % (Auto) 0.300 Neut % (Auto) 48.8 Lymph % (Auto) 39.8 [place] % (Auto) 8.3 Eos % (Auto) 2.1 Baso % (Auto) 0.7 Absolute Neuts (auto) 3.5 Absolute Lymphs (auto) 2.84 Nucleated RBC % 0 Sodium 140 Potassium 3.7 Chloride 104 Carbon Dioxide 24.2 Anion Gap 12 BUN 11 Creatinine 0.94 Estim Creat Clear Calc 81.99 Est GFR (MDRD) Non-Af 79 BUN/Creatinine Ratio 12.2 Glucose 96 Calcium 8.9 Total Bilirubin < 0.15 AST 16 ALT 19 Alkaline Phosphatase 105 H Total Protein 7.0 Albumin 4.1 Globulin 2.9 Albumin/Globulin Ratio 1.4 Lipase 20 Urine Color Yellow Urine Clarity Clear Urine pH 6.0 Ur Specific [place] 1.020 Urine Protein 30 H Urine Glucose (UA) Normal Urine Ketones Negative Urine Occult Blood Negative Urine Nitrite Negative Urine Bilirubin Negative Urine Urobilinogen 1 H Ur Leukocyte Esterase 25 H Urine RBC 0-5 SEEN Urine WBC 0-5 SEEN Ur Squamous Epith Cells 0-5 SEEN Urine Bacteria 0 SEEN Urine Mucus 0 SEEN Urine Test Negative Radiography Diagnostic Testing: Clinical Impression(s) from Imaging Studies Abdomen/Pelvis CT 12/01/24 19:55 IMPRESSION: 1. Stable 1.6 cm left adrenal mass. 2. Hepatomegaly with fatty infiltration. 3. Umbilical hernia containing fat. 4. No obstructive uropathy. Reading Location: [facility] Discharge Plan Triage Chief Complaint: Abd Pain ED Provider: Laurent Perez Dx/Rx/DC Orders Clinical Impression: Crohn's disease, Abdominal pain Instructions: Crohns Disease Dc Prescriptions: New prednisone 50 mg tablet 50 mg PO DAILY 5 Days Qty: 5 0RF ondansetron 4 mg tablet,disintegrating 4 mg PO Q8H PRN PRN (Reason: Nausea) Qty: 10 0RF No Action hydroxyzine pamoate 25 mg capsule 25 mg PO QHS escitalopram oxalate [Lexapro] 20 mg tablet 20 mg PO DAILY lamotrigine [Lamictal] 100 mg tablet 200 mg PO DAILY lisinopril 30 mg Tablet 30 mg PO DAILY albuterol sulfate [Ventolin HFA] 90 mcg/actuation Hfa Aerosol Inhaler 1 inh INHALATION Q6H PRN (Reason: ASTHMA) oxycodone 5 mg tablet 5 mg PO Q8H PRN (Reason: pain) 3 Days Qty: 7 0RF ondansetron 4 mg tablet,disintegrating 4 mg PO Q6H PRN (Reason: nausea and vomiting) Qty: 60 3RF dicyclomine 20 mg tablet 20 mg PO TID PRN (Reason: abdominal pain) Qty: 90 6RF prochlorperazine maleate [Compazine] 10 mg tablet 10 mg PO TID PRN (Reason: nausea and vomiting) Qty: 90 5RF pantoprazole 40 mg tablet,delayed release (DR/EC) 40 mg PO QAM Qty: 60 1RF Stelara 90 mg/mL syringe 90 mg subcut Q8W Qty: 1 5RF Rx Instructions: Crohn's Primary Care Provider: Vick Corral Referrals: Vick Corral MD [Primary Care Provider] - Activity Restrictions/Additional Instructions: Thank you for trusting us with your care today! Your labs images are reassuring. No sign of an acute surgical process in your abdomen. Please take Tylenol (2 pills, 650 mg), ibuprofen (2 pills, 400 mg) every 6 hours as needed for pain and fever control. Please take prednisone as prescribed. Please take Zofran as needed for nausea vomiting interval at home. Please return to the emergency department if your symptoms change or worsen. Please follow with your primary care physician for further outpatient evaluation and management. Print Language: Danish Disposition Disposition: Home, Self Care Discharge Date/Time: 12/01/24 22:31
--- NOTE | 2024-12-01 19:55 | CT_ITS ---
EXAM: CT Abdomen and Pelvis With Intravenous Contrast CLINICAL INDICATION: ABDOMINAL PAIN TECHNIQUE: Axial computed tomography images of the abdomen and pelvis with intravenous contrast. This CT exam was performed using one or more of the following dose reduction techniques: automated exposure control, adjustment of the mA and/or kV according to patient size, and/or use of iterative reconstruction technique. COMPARISON: CT Abdomen Pelvis dated 12/13/2023 FINDINGS: LUNG BASES: Unremarkable. No mass. No consolidation. ABDOMEN: LIVER: Hepatomegaly with fatty infiltration. GALLBLADDER AND BILE DUCTS: Unremarkable. No calcified stones. No ductal dilation. PANCREAS: Unremarkable. No mass. No ductal dilation. SPLEEN: Unremarkable. No splenomegaly. ADRENALS: Stable 1.6 cm left adrenal mass. KIDNEYS AND URETERS: Unremarkable. No stones within either kidney. No hydronephrosis. STOMACH AND BOWEL: Unremarkable. No obstruction. No mucosal thickening. PELVIS: APPENDIX: No findings to suggest acute appendicitis. BLADDER: Unremarkable. No mass. REPRODUCTIVE: Unremarkable as visualized. ABDOMEN and PELVIS: INTRAPERITONEAL SPACE: Unremarkable. No free air. No significant fluid collection. BONES/JOINTS: No acute fracture. No dislocation. SOFT TISSUES: Umbilical hernia containing fat. VASCULATURE: Unremarkable. No abdominal aortic aneurysm. LYMPH NODES: Unremarkable. No enlarged lymph nodes. CT/Abdomen/Pelvis W IV Cont ONLY IMPRESSION: 1. Stable 1.6 cm left adrenal mass. 2. Hepatomegaly with fatty infiltration. 3. Umbilical hernia containing fat. 4. No obstructive uropathy. Reading Location: [facility]
[2024-12-01] MEDS: 0.9% Normal Saline (1000mL) 1,000 ML 999 ML IV (19:58)
[2024-12-01 20:17] LABS: Mucous, Urine 0 SEEN /hpf (<or=2+)
[2024-12-01 20:29] LABS: Hematocrit 35.0 % (37-47); Hemoglobin 11.8 g/dL (12.0-15.0); Immature Granulocytes Count 0.020 X10^3/uL (0.0-0.0); Mean Corp Hgb Conc 33.7 g/dL (32-36); Mean Corpuscular Volume 89.7 fL (81-99); Mean Platelet Vol. 9.2 fl (6.2-12.0); NRBC Flagged by Analyzer 0 % (0-5); Platelet Count 462 K/mm3 (150-450); RBC Distribution Width CV 13.6 % (11.6-14.6); RBC Distribution Width SD 44.9 fl (35.1-43.9); Red Blood Count 3.90 M/mm3 (4.2-5.4); White Blood Count 7.1 K/mm3 (4.4-11.0)
[2024-12-01 20:42] LABS: Color, Urine Yellow (Yellow); Glucose, Dipstick Normal (Normal); Ketone-Dipstick Negative (Negative); Leukocyte Esterase-Dipstick 25 /ul (Negative); Nitrite-Dipstick Negative (Negative); Occult Blood-Urine Negative /ul (Negative); Protein-Dipstick 30 mg/dl (Negative); Specific Gravity, Urine 1.020 (1.002-1.030); Urine Bilirubin Dipstick Negative (Negative)
[2024-12-01 20:47] LABS: Internal QC Validated? YES +Cl - CLEAR BKGD; Pregnancy, Urine Negative Negative; Record Kit Lot#,Urine Preg 962302
[2024-12-01 20:59] LABS: Red Blood Cells-Urine 0-5 SEEN /hpf (0-5); Squamous Epithelial Cells - UA 0-5 SEEN /hpf (5-10)
[2024-12-01 21:10] VITALS: BP 154/101; PULSE 62; RESP 16; O2SAT 100
[2024-12-01 21:29] LABS: Lipase 20 U/L (13-75)
[2024-12-01 21:35] LABS: AST(SGOT) 16 U/L (<=31); Alanine Aminotransfer ALT/SGPT 19 U/L (<=34); Albumin, Serum 4.1 g/dL (3.5-5.0); Alkaline Phosphatase 105 U/L (35-104); Anion Gap 12 (5-15); BUN 11 mg/dL (4-19); BUN/Creat Ratio 12.2 RATIO (10-20); Calcium,Total 8.9 mg/dL (7.6-11.0); Carbon Dioxide 24.2 mmol/L (21.0-32.0); Chloride 104 mmol/L (98-108); Estimated Creatinine Clearance 81.99 ml/min (50-250); Globulin 2.9 g/dL (2.2-4.2); Glucose 96 mg/dL (70-99); Potassium 3.7 mmol/L (3.3-5.1)
[2024-12-01 22:13] VITALS: BP 143/102; PULSE 71; RESP 16; TEMP 36.7; O2SAT 100
== END 2024-12-01 22:31 | disposition home or self-care (01) ==
PROVIDERS: Emergency Provider Emergency Medicine; PCP Family Medicine; Visit Provider Emergency Medicine
DX: K50.90 Crohn's disease, unspecified, without complications (principal); F31.9 Bipolar disorder, unspecified; T50.996A Underdosing of other drugs, medicaments and biological substances, initial encounter; Z91.120 Patient's intentional underdosing of medication regimen due to financial hardship; G89.29 Other chronic pain; I10 Essential (primary) hypertension; F41.9 Anxiety disorder, unspecified; K21.9 Gastro-esophageal reflux disease without esophagitis; F17.210 Nicotine dependence, cigarettes, uncomplicated; Z79.899 Other long term (current) drug therapy
CPT/HCPCS: 74177; 80053; 81001; 81025; 83690; 85025; 96361; 96374; 96375; 99283; Q9967; A4216; J2405